=== PATIENT | male | born 1940 | race Caucasian/White ===

== ENCOUNTER → 2017-11-05 09:48 | Outpatient (CLI) | payer MEDICARE, BC, SELFPAY ==
--- NOTE | 2017-11-05 10:54 | NURSING ---
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 Was asked by Dr Titus to see patient since patient has no really seen a stoma nurse since surgery. Pt presents with son who assists patient at home with appliance changes. Pt is currently using a [place] 1 piece convex appliance with an oval convex barrier ring. Pt states that he has gained approximately 20 lbs since surgery and now has a little fold in the abdomen when he sits up. the oval convex ring really seems to have helped with the leaks according to the son. Removed the ostomy appliance. Pt states that for the most part, the output is the consistency of applesauce but of course changes with what he eats. Pt has been quite independent with the emptying of the appliance, but the son has been doing most of the appliance changes since it is difficult for the patient to see the stoma. Discussed trying to place the appliance while standing in front of a mirror, but the the fold in the abdomen is worse when the patient is standing. there is also a peristomal hernia noted. when the patient lifts his head up in the bed, the hernia is about the size of a softball. stoma is beefy red, moist, and measures approx 1 3/8. stoma is oval in size. peristomal skin is intact. there is a very small area of maceration just inferior to the stoma. cleansed skin with warm water and patted dry. applied a small amount of stoma powder followed by skin prep to the macerated skin. applied a small bead of stoma paste at 3 and 9 o'clock. placed the oval convex ring around the stoma and then placed the appliance. Discussed possibly needing to switch to a flat appliance with the convex ring in the future if there is breakdown in the peristomal skin. since the stoma sits slightly above the skin level, do not feel that the patient necessarily needs double convexity. patient also uses an ostomy belt as well. if the hernia continues to get worse, may need to fit patient for a hernia belt in the future. For now, would recommend continuing with the current appliance. patient and son feel comfortable with it and the peristomal skin is intact. pt is needing to change the appliance approx every 4 days. Pt aware to call for further needs or questions.
== END ==
PROVIDERS: Family Provider Family Medicine; PCP Family Medicine; Visit Provider Internal Medicine Hematology & Oncology
DX: Z43.3 Encounter for attention to colostomy (principal)
CPT/HCPCS: 99211; G0463

== ENCOUNTER → 2018-07-21 11:25 | Outpatient (CLI) | payer MEDICARE, BC, SELFPAY ==
--- NOTE | 2018-07-21 11:30 | RAD_ITS ---
STUDY: X-RAY - LUMBAR SPINE REASON FOR EXAM: Male, 78 years old. Back and leg pain TECHNIQUE: 2 view(s) of the lumbar spine were obtained. COMPARISON: 12/07/2013 FINDINGS: Stable grade 1 L3-4 anterolisthesis. Diffuse facet disease. L5-S1 degenerative disc disease. No compression deformities are seen. Hernia mesh on the right. Arterial calcifications. RAD/Lumbar Spine 2 or 3 Views IMPRESSION: Stable grade 1 L3-4 anterolisthesis. Diffuse facet disease. L5-S1 degenerative disc disease. No compression deformities are seen. Electronically Signed: Mikhail Jerez MD at 11:23 EST Tel , Service support ,
== END ==
PROVIDERS: Family Provider Family Medicine; PCP Family Medicine; Referring Provider Anesthesiology Pain Medicine; Visit Provider Anesthesiology Pain Medicine
DX: M43.16 Spondylolisthesis, lumbar region (principal); M51.37 Other intervertebral disc degeneration, lumbosacral region; M46.86 Other specified inflammatory spondylopathies, lumbar region
CPT/HCPCS: 72100

== ENCOUNTER → 2018-08-13 12:21 | Outpatient (CLI) | payer MEDICARE, BC, SELFPAY ==
[2018-07-30 10:25] VITALS: BMI 27.6
[2018-08-13 13:54] LABS: Amphetamine Urine VISTA NEGATIVE (<1000 ng/mL); Barbiturate Urine VISTA NEGATIVE (< 200 ng/mL); Benzodiazepine Urine VISTA NEGATIVE (< 200 ng/mL); Cocaine Urine VISTA NEGATIVE (< 300 ng/mL); Ecstacy Urine VISTA NEGATIVE (< 500 ng/mL); Methadone Urine VISTA NEGATIVE (< 300 ng/mL); PCP Urine VISTA NEGATIVE (< 25 ng/mL); THC Urine VISTA NEGATIVE (< 50 ng/mL); Vista UDS pH Range 5
--- OUTSIDE RECORDS SUMMARY | 2018-10-08 15:43 | XMS RPT_ITS ---
:1940 Author Organization OHIP Care Team Providers Name Role Phone Sam Bagley Attending Unavailable Floyd Cruz Primary Care Unavailable Sam Greenberg Attending Unavailable Sam Greenberg Referring Unavailable Robert, Vishal Primary Care Unavailable Bradly Condon Attending Unavailable Earl Huntley Attending Unavailable Anthony Floyd Referring Unavailable Robert, Vishal Primary Care Unavailable BasalChavo douglass Attending Unavailable Basali, Ayman Referring Unavailable Robert, Vishal Primary Care Unavailable Tito Crane Attending Unavailable Vishal Jones Referring Unavailable Chavo Hussein Attending Unavailable Basali, Ayman Referring Unavailable Robert, Vishal Primary Care Unavailable VISHAL JONES A Referring Unavailable TAMEKA MARSHALL ([facility]) Referring Unavailable TAMEKA MARSHALL ([facility]) Referring Unavailable SAM GREENBERG Referring Unavailable CLEMENT WERNER Attending Unavailable TAMEKA MARSHALL ([facility]) Referring Unavailable JANEE STOKES (TOUCH UP WORKER) Attending Unavailable ROBERT, VISHAL A Referring Unavailable RUTTI, JANEE (TOUCH UP WORKER) Referring Unavailable ROBERT, VISHAL A Attending Unavailable MARSHALL, TAMEKA (TOUCH UP WORKER) Attending Unavailable MASCI, SAM A Referring Unavailable MASCI, SAM A Referring Unavailable MARSHALL, TAMEKA (TOUCH UP WORKER) Referring Unavailable ROBERT, VISHAL A Referring Unavailable MASCI, SAM A Referring Unavailable MASCI, SAM A Referring Unavailable ROBERT, VISHAL A Attending Unavailable ROBERT, VISHAL A Referring Unavailable ROBERT, VISHAL A Referring Unavailable MARSHALL, TAMEKA (TOUCH UP WORKER) Referring Unavailable MARSHALL, TAMEKA (TOUCH UP WORKER) Referring Unavailable MARSHALL, TAMEKA (TOUCH UP WORKER) Referring Unavailable MARSHALL, TAMEKA (TOUCH UP WORKER) Attending Unavailable MARSHALL, TAMEKA (TOUCH UP WORKER) Referring Unavailable MARSHALL, TAMEKA (TOUCH UP WORKER) Referring Unavailable MARSHALL, TAMEKA (TOUCH UP WORKER) Referring Unavailable MARSHALL, TAMEKA (TOUCH UP WORKER) Referring Unavailable FOY, EDILMA (PA) Attending Unavailable MALLAT, ALI Referring Unavailable MASCI, SAM A Referring Unavailable MASCI, SAM A Attending Unavailable MASCI, SAM A Referring Unavailable MASCI, SAM A Referring Unavailable MASCI, SAM A Referring Unavailable MASCI, SAM A Referring Unavailable MASCI, SAM A Referring Unavailable MASCI, SAM A Referring Unavailable MASCI, SAM A Referring Unavailable MASCI, SAM A Referring Unavailable MASCI, SAM A Referring Unavailable ROBERT, VISHAL A Attending Unavailable MASCI, SAM A Referring Unavailable MASCI, SAM A Referring Unavailable MARSHALL, TAMEKA (TOUCH UP WORKER) Attending Unavailable MASCI, SAM A Referring Unavailable MASCI, SAM A Referring Unavailable MASCI, SAM A Referring Unavailable MASCI, SAM A Referring Unavailable MASCI, SAM A Attending Unavailable MASCI, SAM A Referring Unavailable MASCI, SAM A Referring Unavailable MASCI, SAM A Referring Unavailable MASCI, SAM A Referring Unavailable MOLLY, TASHA T Attending Unavailable MASCI, SAM A Referring Unavailable MASCI, SAM A Referring Unavailable MASCI, SAM A Referring Unavailable MASCI, SAM A Referring Unavailable MARSHALL, TAMEKA (TOUCH UP WORKER) Attending Unavailable MASCI, SAM A Referring Unavailable MASCI, SAM A Referring Unavailable MARSHALL, TAMEKA (TOUCH UP WORKER) Referring Unavailable MASCI, SAM A Referring Unavailable MASCI, SAM A Referring Unavailable MASCI, SAM A Referring Unavailable MASCI, SAM A Referring Unavailable MASCI, SAM A Referring Unavailable MASCI, SAM A Referring Unavailable MASCI, SAM A Attending Unavailable MASCI, SAM A Referring Unavailable MASCI, SAM A Referring Unavailable MASCI, SAM A Referring Unavailable MASCI, SAM A Referring Unavailable MASCI, SAM A Referring Unavailable MASCI, SAM A Referring Unavailable MASCI, SAM A Referring Unavailable MICHAELCHELLEELIU Attending Unavailable MASCI, SAM Noble Referring Unavailable MICHAELTREVOR Referring Unavailable MASCI, SAM A Referring Unavailable MASCI, SAM A Referring Unavailable MASCI, SAM A Referring Unavailable MASCI, SAM A Referring Unavailable MASCI, SAM A Referring Unavailable MASCI, SAM Aide Referring Unavailable VISHAL JONES Attending Unavailable VISHAL JONES Referring Unavailable MASCI, SAM Aide Referring Unavailable TAMEKA MARSHALL (TOUCH UP WORKER) Attending Unavailable MASCI, SAM Noble Referring Unavailable ROBERTVISHAL Referring Unavailable PROBLEMS PROBLEMS DATE TYPE CONDITION / CODE ATTENDING STATUS SOURCE 08/13/2018 Unknown F11.20 - Opioid Basali, Ayman Active [place] dependence, Community uncomplicated / Hospital F11.20(ICD-10) Repository 08/12/2018 Active 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, Clinic Main unspecified / [place] N28.9(ICD-10) Repository 09/25/2017 Active Malignant neoplasm of NA Active [place] sigmoid colon / Clinic Main C18.7(ICD-10) [place] Repository 07/30/2018 Active Other abnormal NA Active [place] glucose / Clinic Main R73.09(ICD-10) [place] Repository 07/30/2018 Active Atherosclerotic heart NA Active [place] disease of [place] [facility] coronary artery [place] without angina Repository pectoris / I25.10(ICD-10) 04/02/2018 Active Urinary tract NA Active [place] infection, site not Clinic Main specified / [place] N39.0(ICD-10) Repository 04/02/2018 Active Hematuria, NA Active [place] unspecified / Clinic Main R31.9(ICD-10) [place] Repository 09/25/2017 Active Malignant neoplasm of NA Active [place] ascending colon / Clinic Main C18.2(ICD-10) [place] Repository 02/17/2018 Active Unknown / NA Active [place] UNK(Unknown) Clinic Main [place] Repository 09/25/2017 Active Mixed hyperlipidemia NA Active [place] / E78.2(ICD-10) Clinic Main [place] Repository 01/28/2018 Active 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 Clinic Main therapy / [place] Z79.899(ICD-10) Repository 01/28/2018 Active Hyperglycemia, NA Active [place] unspecified / Clinic Main R73.9(ICD-10) [place] Repository 01/27/2018 Unknown I25.10 - [place], Earl Active [place] Atherosclerotic heart Community disease of [facility] coronary artery Repository without angina pectoris / I25.10(ICD-10) 01/27/2018 Unknown I10 - Essential Yuko, Earl Active [place] (primary) Community hypertension / Hospital I10(ICD-10) Repository 01/27/2018 Unknown E78.5 - Yuko, [place]wood Active [place] Hyperlipidemia, Community unspecified / Hospital E78.5(ICD-10) Repository 12/02/2017 Active Malignant neoplasm of Active [place] colon, unspecified / Clinic Main C18.9(ICD-10) [place] Repository 09/11/2017 Active Other specified soft Active [place] tissue disorders / Clinic Main M79.89(ICD-10) [place] Repository PROCEDURES PROCEDURES No Procedure Records FoundRESULTS RESULTS URINE DRUG SCREEN Collected: 08/13/2018 Status: F Source: [place]) 12:27 PM [facility] [place] [facility] Order Comment: List of Drugs Taken or Suspected? UNK TYPE CODE TESTS RESULT OUT OF RANGE REFERENCE UNITS LAB L505.0075 TO BE Normal CONFIRMED Result Comment: CONFIRMATORY TESTING FOR ALL POSITIVE URINE DRUG SCREEN RESULTS WILL ONLY BE SENT OUT UPON PHYSICIAN ORDER. VISTA Urine Drug Screen methods provide only preliminary analytical test results. A more specific alternate chemical method must be used in order to obtain a confirmed analytical result. Gas chromatography/mass spectrometery (GC/MS) is the preferred confirmatory method. Clinical consideration and professional judgement should be applied to any drug of abuse test result, particularly when preliminary positive results are used. URINE TCA TESTING MUST BE ORDERED SEPARATELY. USE TEST MNEMONIC: [facility] LAB L505.5005 VIST[facility] UDS PH 5 Normal LAB L505.5015 <1000 ng/mL AMPHETAMINES Normal NEGATIVE LAB L505.5025 < 200 ng/mL BARBITIURATES Normal NEGATIVE LAB L505.5035 < 200 ng/mL BENZODIAZIPINE Normal NEGATIVE LAB L505.5045 < 300 ng/mL COCAINE Normal NEGATIVE LAB L505.5055 < 500 ng/mL ECSTACY Normal NEGATIVE LAB L505.5065 < 300 ng/mL METHADONE Normal NEGATIVE LAB L505.5075 < 300 High ng/mL OPIATES POSITIVE LAB L505.5085 < 25 ng/mL PCP Normal NEGATIVE LAB L505.5095 < 50 ng/mL THC Normal NEGATIVE Performed By: #### L505.5000 #### [facility] [address] [place], [address] MISCELLANEOUS LAB Collected: 08/13/2018 Status: F Source: [place] PROCEDURE 12:27 PM [facility] [place] [facility] Order Comment: Test(s) Ordered: URINE TOXICOLOGY [id number] RUN LOWEST TEST TYPE CODE TESTS RESULT OUT OF RANGE REFERENCE UNITS LAB L801.1541 Normal [place] [facility] TEST Result Comment: [id number] 6+OXYCODONE-BUND (ng/mL) DRUG RESULT SCREEN CUTOFF ____ Amphetamines Negative ng/mL 1000 Barbiturates Negative ng/mL 200 Benzodiazepines Negative ng/mL 200 Cannabinoid Negative ng/mL 20 Cocaine (Metab) Negative ng/mL 300 Opiates Positive ng/mL 300 Opiates test includes Codeine, Morphine, Hydromorphone, Hydrocodone. Please Note: Confirmation performed by Mass Spectrometry Codeine Negative 300 Morphine Negative 300 Hydromorphone Positive Hydromorphone Confirm 1264 ng/mL 300 Hydrocodone Positive Hydrocodone Confirm >3000 ng/mL 300 Oxycodone/Oxymorphone,Urine Negative ng/mL 300 Test includes Oxydodone and Oxymorphone. TESTING PERFORMED AT [facility]. ORIGINAL REPORT ON FILE IN LAB CONTAINS ADDITIONAL TEST SITE INFORMATION. Performed By: #### L801.1541 #### [facility] [address] [place], [address] PROGRESS Observed: 08/12/2018 Status: COMPLETED Source: [place] 11:12 AM [facility] REPOSITORY HNO ID: [id number] Author: Olamide Tobin Service: (none) Author Type: Health Concierge Type: Progress Notes Filed: 08/12/2018 11:12 AM Note Text: Radiology Service Progress Note PATIENT NAME: Sam Hagen DATE OF SERVICE: August 12, 2018 TIME: 11:12 AM PATIENT IDENTITY VERIFICATION COMPLETED USING TWO (2) METHODS: Patient confirmed name verbally and Date of . PATIENT GENDER DATA: Male PATIENT RELEVANT IMPLANT DATA REVIEWED: Not Applicable RADIOLOGY DEPARTMENT: Ultrasound PERIPHERAL IV DATA: Not applicable SIGNED BY: OLAMIDE TOBIN RDMS RVT August 12, 2018 11:12 AM US KIDNEY/BLADDER Observed: 08/12/2018 Status: F Source: [place] 11:11 AM [facility] REPOSITORY * * *Final Report* * * DATE OF EXAM: Aug 12 2018 11:11AM [facility] 1055 - US KIDNEY/BLADDER / PROCEDURE REASON: multiple diagnoses * * * * Physician Interpretation * * * * EXAMINATION: RENAL ULTRASOUND CLINICAL HISTORY: Malignant neoplasm of colon; renal lesion TECHNIQUE: Sonography of the kidneys and urinary bladder was performed. Images were obtained and stored in a permanent archive. MQ: UR_1 COMPARISON: 02/17/[address], 08/03/[address] RESULT: Right Kidney: -Renal length: 10.1 cm -Parenchyma: Normal parenchymal echogenicity. Normal parenchymal thickness. -Collecting system: No hydronephrosis. -Calculus: No echogenic, shadowing calculus. -Lesion: Avascular, partially exophytic 1.7 x 1.4 x 1.6 cm mid/lower pole renal lesion with distal acoustic enhancement corresponds to abnormality on recent abdominopelvic CT. Lesion demonstrates low level internal echoes and/or thin septations. 1 cm hypoechoic avascular upper pole lesion. Left Kidney: -Renal length: 11 cm -Parenchyma: Normal parenchymal echogenicity. Normal parenchymal thickness. -Collecting system: No hydronephrosis. -Calculus: No echogenic, shadowing calculus. -Lesion: 1.5 cm and 1.3 cm anechoic avascular renal cortical lesions with distal acoustic enhancement. Bladder: Minimally distended on the prevoid images; completely empty after voiding. IMPRESSION: Right kidney: Mid/lower pole lesion of concern on recent abdominopelvic CT corresponds to a complex cyst. Additional upper pole complex cyst. Left kidney: Simple renal cortical cysts. Call Center Team Leader: JAYME Transcribe Date/Time: Aug 13 2018 1:23P Dictated by : EFRAÍN GUIDRY MD This examination was interpreted and the report reviewed and electronically signed by: EFRAÍN GUIDRY MD on Aug 13 2018 1:28PM EST [id number] CEA Collected: 08/10/2018 Status: F Source: [place] 9:15 AM [facility] REPOSITORY TYPE CODE TESTS RESULT OUT OF RANGE REFERENCE UNITS LAB CEA 0.0-2.9 ng/mL CEA 1.1 Result Comment: Test analyzed by the [employer] DxI method. Performed By: #### CEA #### [facility] [employer] [address] [place], [place] [address] PROGRESS Observed: 08/10/2018 Status: COMPLETED Source: [place] 9:00 AM [facility] REPOSITORY HNO ID: [id number] Author: Tameka Marshall Service: (none) Author Type: Nurse Practitioner Type: Progress Notes Filed: 08/11/2018 12:50 PM Note Text: Chief Complaint Patient presents with: Established Patient HPI: Sam Hagen is a 78 year old male who presents here today for follow up colon cancer. Per Dr. Greenberg's previous note: H/[place] CAD?([place]; treated with PCI balloon angioplasty; no stent) and prostate cancer?(tx with radiation x44 fx ~6-8 years ago). ? He presented to [facility] with symptoms of bowel obstruction. He underwent attempted colonoscopy but the procedure was aborted when the scope was not able to be passed through the rectum/sigmoid area. He was transferred to [facility]. He ultimately underwent a total colectomy along with end ileostomy and partial bladder resection on 07/03/2017. He was noted to have 2 foci of tumor one in the cecum and one in the sigmoid colon. The latter tumor was adherent to the bladder invasive to the bladder wall. ? 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 ?TUMOR PENETRATES TO THE SURFACE OF THE VISCERAL PERITONEUM. SURGICAL MARGINS NEGATIVE. 1 OF 13 LYMPH NODES POSITIVE FOR METASTATIC ADENOCARCINOMA AND 1 TUMOR DEPOSIT PRESENT. PERINEURAL AND LYMPHOVASCULAR INVASION PRESENT. B) SMALL INTESTINE, TERMINAL ILEUM, ILEOSTOMY - BENIGN SMALL INTESTINAL TISSUE. C) BLADDER, PARTIAL CYSTECTOMY - FOCAL INVOLVEMENT OF THICK SMOOTH MUSCLE BUNDLES BY ADENOCARCINOMA. ?NO UROTHELIUM PRESENT. D) COLON, SIGMOID, SEGMENTAL RESECTION - INVASIVE LOW GRADE (MODERATELY DIFFERENTIATED) ADENOCARCINOMA (3 CM IN GREATEST DIMENSION). ?SURGICAL MARGINS APPEAR NEGATIVE. BENIGN TRANSECTED BENIGN VAS DEFERENS (2) AND THICK SMOOTH MUSCLE SUGGESTIVE OF BLADDER. 1 OF 9 LYMPH NODES POSITIVE FOR METASTATIC ADENOCARCINOMA ? ? Previous therapy: 1) Infusional 5FU. ? Radiation not recommended.? No complaints. ? Appetite:fine Energy level:fair and then times I can't sit still Denies fevers or recent illness. Resp:denies cough or sob Cardiac:denies chest pain/palpitations-Followed by cards/Dr. 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 Skin:denies rashes/lesions Heme:denies bleeding The ROS is otherwise negative. Past medical history, appointments, medications, allergies reviewed. No changes. EXAM: BP 124/67 Pulse 67 Temp 36.6 ?C (97.8 ?F) Wt 80.5 kg (177 lb 8 oz) BMI 28.22 kg/m? APPEARANCE Well appearing, alert, in no acute distress, well-hydrated, well nourished. HEART RRR with normal S1 and S2, no murmurs LUNG clear to auscultation LYMPH NODES No cervical lymphadenopathy, No supraclavicular lymphadenopathy and No axillary lymphadenopathy. ABDOMEN ostomy pink, bowel sounds normoactive, soft, non-tender, non-distended, without organomegaly or palpable masses EXTREMITIES No edema NEURO Awake, alert and oriented x 3, Normal gait and No involuntary motions. SKIN Skin color, texture, turgor normal, no suspicious rashes or lesions LABS: Component Latest Ref Rng AND Units 01/28/2018 05/04/2018 CEA 0.0 - 2.9 ng/mL 1.2 1.1 Today's CEA pending. RADIOLOGY: CT abd/pelvis 08/03/18: IMPRESSION: Left lower quadrant ileostomy containing nondistended nonobstructed loops of small bowel which are increased in number but otherwise unchanged. Incomplete evaluation of an indeterminate right renal lesion which could be questionably increased in size when compared to the February 2018 study. Renal ultrasound may be helpful. ASSESSMENT/PLAN: 1. Malignant neoplasm of ascending colon (HCC) - ICD9: 153.6, ICD10: C18.2 (primary diagnosis) 2. Malignant neoplasm of sigmoid colon (HCC) - ICD9: 153.3, ICD10: C18.7 mpT4a pN1 M0 adenocarcinoma with mucinous features of the ascending colon. There was lymphovascular as well as perineural invasion observed. One tumor deposit. One of 13 nodes. mpT4b pN1 M0 adenocarcinoma of the sigmoid colon. Focal involvement of bladder. Lymphovascular invasion was observed. No tumor deposits. One of 9 nodes involved. 3. Renal lesion - ICD9: 593.9, ICD10: N28.9 - No concerning findings on exam. - CEA today. - Needs port flushes. - Reviewed CT with pt. and Dr. Greenberg. - US R kidney this week-pt. will be vacation for the next month. - ?Follow up in 3 months with CEA pending today's CEA/US. - ?Pt. aware to call office with any questions/concerns. The patient indicates understanding of these issues and agrees with the plan. Discussed case with Dr. Greenberg who agrees with treatment plan. Tameka Marshall APRN.TOUCH UP WORKER CNOVSP Observed: 08/10/2018 Status: COMPLETED Source: [place] 9:00 AM [facility] REPOSITORY Visit (SP) Office ([place]) SAM HAGEN ([id number]) 1940 M Date Time Provider Department 08/10/18 9:00 AM TAMEKA MARSHALL During your visit today, we recorded the following information about you: Temperature Pulse Blood pressure Weight 97.8 degrees 67/minute 124/67 80.5 kg Shreya Villalta LPN, [place] 08/10/2018 9:06 AM Signed Est . Pt. Discuss recent lab and ct results . [place] Trevino, SUPERVISOR LOCOMOTIVE.TOUCH UP WORKER 08/11/2018 12:50 PM Signed Chief Complaint Patient presents with: Established Patient HPI: Sam Hagen is a 78 year old male who presents here today for follow up colon cancer. Per Dr. Greenberg's previous note: H/o CAD?([place] 1993; treated with PCI balloon angioplasty; no stent) and prostate cancer?(tx with radiation x44 fx ~6-8 years ago). ? He presented to [facility] with symptoms of bowel obstruction. He underwent attempted colonoscopy but the procedure was aborted when the scope was not able to be passed through the rectum/sigmoid area. He was transferred to [facility]. He ultimately underwent a total colectomy along with end ileostomy and partial bladder resection on 07/03/2017. He was noted to have 2 foci of tumor one in the cecum and one in the sigmoid colon. The latter tumor was adherent to the bladder invasive to the bladder wall. ? 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 ?TUMOR PENETRATES TO THE SURFACE OF THE VISCERAL PERITONEUM. SURGICAL MARGINS NEGATIVE. 1 OF 13 LYMPH NODES POSITIVE FOR METASTATIC ADENOCARCINOMA AND 1 TUMOR DEPOSIT PRESENT. PERINEURAL AND LYMPHOVASCULAR INVASION PRESENT. B) SMALL INTESTINE, TERMINAL ILEUM, ILEOSTOMY - BENIGN SMALL INTESTINAL TISSUE. C) BLADDER, PARTIAL CYSTECTOMY - FOCAL INVOLVEMENT OF THICK SMOOTH MUSCLE BUNDLES BY ADENOCARCINOMA. ?NO UROTHELIUM PRESENT. D) COLON, SIGMOID, SEGMENTAL RESECTION - INVASIVE LOW GRADE (MODERATELY DIFFERENTIATED) ADENOCARCINOMA (3 CM IN GREATEST DIMENSION). ?SURGICAL MARGINS APPEAR NEGATIVE. BENIGN TRANSECTED BENIGN VAS DEFERENS (2) AND THICK SMOOTH MUSCLE SUGGESTIVE OF BLADDER. 1 OF 9 LYMPH NODES POSITIVE FOR METASTATIC ADENOCARCINOMA ? ? Previous therapy: 1) Infusional 5FU. ? Radiation not recommended.? No complaints. ? Appetite:fine Energy level:fair and then times I can't sit still Denies fevers or recent illness. Resp:denies cough or sob Cardiac:denies chest pain/palpitations-Followed by cards/Dr. 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 Skin:denies rashes/lesions Heme:denies bleeding The ROS is otherwise negative. Past medical history, appointments, medications, allergies reviewed. No changes. EXAM: BP 124/67 Pulse 67 Temp 36.6 ?C (97.8 ?F) Wt 80.5 kg (177 lb 8 oz) BMI 28.22 kg/m? APPEARANCE Well appearing, alert, in no acute distress, well- hydrated, well nourished. HEART RRR with normal S1 and S2, no murmurs LUNG clear to auscultation LYMPH NODES No cervical lymphadenopathy, No supraclavicular lymphadenopathy and No axillary lymphadenopathy. ABDOMEN ostomy pink, bowel sounds normoactive, soft, non-tender, non-distended, without organomegaly or palpable masses EXTREMITIES No edema NEURO Awake, alert and oriented x 3, Normal gait and No involuntary motions. SKIN Skin color, texture, turgor normal, no suspicious rashes or lesions LABS: Component Latest Ref Rng AND Units 01/28/2018 05/04/2018 CEA 0.0 - 2.9 ng/mL 1.2 1.1 Today's CEA pending. RADIOLOGY: CT abd/pelvis 08/03/18: IMPRESSION: Left lower quadrant ileostomy containing nondistended nonobstructed loops of small bowel which are increased in number but otherwise unchanged. Incomplete evaluation of an indeterminate right renal lesion which could be questionably increased in size when compared to the February 2018 study. Renal ultrasound may be helpful. ASSESSMENT/PLAN: 1. Malignant neoplasm of ascending colon (HCC) - ICD9: 153.6, ICD10: C18.2 (primary diagnosis) 2. Malignant neoplasm of sigmoid colon (HCC) - ICD9: 153.3, ICD10: C18.7 mpT4a pN1 M0 adenocarcinoma with mucinous features of the ascending colon. There was lymphovascular as well as perineural invasion observed. One tumor deposit. One of 13 nodes. mpT4b pN1 M0 adenocarcinoma of the sigmoid colon. Focal involvement of bladder. Lymphovascular invasion was observed. No tumor deposits. One of 9 nodes involved. 3. Renal lesion - ICD9: 593.9, ICD10: N28.9 - No concerning findings on exam. - CEA today. - Needs port flushes. - Reviewed CT with pt. and Dr. Greenberg. - US R kidney this week-pt. will be vacation for the next month. - ?Follow up in 3 months with CEA pending today's CEA/US. - ?Pt. aware to call office with any questions/concerns. The patient indicates understanding of these issues and agrees with the plan. Discussed case with Dr. Greenberg who agrees with treatment plan. Tameka Marshall APRN.TOUCH UP WORKER Referring Provider: TAMEKA MARSHALL [[id number]] Allergies As of Date: 08/10/2018 (No Known Allergies) Date Reviewed: 08/10/2018 Reviewed by: Tameka Marshall - Fully Assessed Reason for Visit: Established Patient [175] Primary Visit Diagnosis:Malignant neoplasm of ascending colon (HCC) [C18.2] Other Visit Diagnoses:Malignant neoplasm of sigmoid colon (HCC) [C18.7] Renal lesion [N28.9] Order(s):CEA BLD [SQCEA] Order #: [id number] FUTURE US KIDNEY/BLADDER [[id number]] Order #: [id number] FUTURE Follow-up and Disposition History Recorded Prescriptions as of 08/10/2018 Sig: OMEPRAZOLE 40 MG CAPSULE,ROHIT* Take 40 mg by mouth once renu* ONDANSETRON 8 MG DISINTEGRATI* Take 1 tablet by mouth every * ATENOLOL 25 MG TABLET Take 0.5 tablets by mouth onc* HYDROCODONE 10 MG-ACETAMINOPH* Take 1 tablet by mouth every * ASPIRIN 81 MG TABLET,DELAYED * Take 81 mg by mouth once renu* MELATONIN 3 MG TABLET Take 3 mg by mouth daily at b* OMEGA 3 FISH OIL ORAL Take by mouth once daily. SIMVASTATIN 40 MG TABLET Take 1 tablet by mouth daily * FINASTERIDE 5 MG TABLET Take 5 mg by mouth once daily. COMPOUNDED PRESCRIPTION Colostomy Care Supplies; 1 m* COMPOUNDED PRESCRIPTION Colostomy Care Supplies; 1 m* LOPERAMIDE 2 MG TABLET Take 2 mg by mouth as needed. Medication notes this encounter OMEGA 3 FISH OIL ORAL >> Shreya Villalta LPN, LPN 08/10/2018 8:52 AM >> SHREYA VILLALTA FriAug 10, 2018 8:52 AM Takes Hit and miss basis Problem List As Of Date 08/10/2018 Noted Resolved Bowel obstruction (HCC) [K56.609] INVALID FOR*07/10/2017 More... Colon cancer (HCC) [C18.9] INVALID FOR* Priority: B More... 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 Arthritis of right hip [M16.11] INVALID FOR* Priority: M Colostomy care ([facility]) [Z43.3] INVALID FOR* Priority: C Colostomy in place ([facility]) [Z93.3] INVALID FOR* Priority: C History of DVT (deep vein thrombosis) [Z86.718] INVALID FOR* Priority: A More... Bladder stone [N21.0] INVALID FOR* Priority: C More... Coronary artery disease involving [place] river[place]*INVALID FOR* Priority: A More... H/O heart artery stent [Z95.5] INVALID FOR* Priority: B More... Nerve pain [M79.2] INVALID FOR* Priority: M More... Hyperlipidemia, mixed [E78.2] INVALID FOR* Priority: A Chronic midline back pain [M54.9, G89.29] INVALID FOR* Priority: M Elevated hemoglobin A1c [R73.09] INVALID FOR* Priority: A Medicare annual wellness visit, subsequent [Z00*INVALID FOR* Priority: E More... Well adult exam [Z00.00] INVALID FOR* Priority: E More... Visit Notes: >> Shreya Villalta LPN FriAug 10, 2018 8:57 AM Status: Signed Est . Pt. Discuss recent lab and ct results . Shreya Villalta LPN Encounter Status:Closed by TAMEKA MARSHALL CNP on 08/11/18 PROGRESS Observed: 08/03/2018 Status: COMPLETED Source: [place] 9:25 AM [facility] REPOSITORY HNO ID: [id number] Author: Violeta Edwards Rt Service: (none) Author Type: (none) Type: Progress Notes Filed: 08/03/2018 9:25 AM Note Text: Radiology Service Progress Note PATIENT NAME: Sam Hagen DATE OF SERVICE: August 03, 2018 TIME: 9:25 AM PATIENT IDENTITY VERIFICATION COMPLETED USING TWO (2) METHODS: Patient confirmed name verbally and Date of . PATIENT GENDER DATA: Male PATIENT RELEVANT IMPLANT DATA REVIEWED: Yes RADIOLOGY DEPARTMENT: CT; Exam(s) Completed: Abdomen/Pelvis PERIPHERAL IV DATA: Not applicable SIGNED BY: Violeta Edwards Rt August 03, 2018 9:[address] ABD/PEL WO IVCON Observed: 08/03/2018 Status: F Source: [place] 9:24 AM [facility] REPOSITORY * * *Final Report* * * DATE OF EXAM: Aug 03 2018 9:24AM [facility] 0531 - CT ABD/PEL WO IVCON / PROCEDURE REASON: multiple diagnoses * * * * Physician Interpretation * * * * EXAMINATION: CT ABDOMEN AND PELVIS WITHOUT IV CONTRAST CLINICAL HISTORY: Malignant neoplasm sigmoid and a descending colon. Evaluate stoma TECHNIQUE: Non-IV contrast imaging of the abdomen and pelvis was performed using standard technique, scanning from just above the dome of the diaphragm to the symphysis pubis. Unenhanced imaging is limited for the evaluation of some intra-abdominal and pelvic pathology. MQ: [id number]_[id number] Contrast: IV: None Oral: 900 ml of 50ML Omnipaque [address] Radiation dose: Integrated Dose-length product (DLP) for this visit = 433 mGy*cm. CT Dose Reduction Employed: Automated exposure control (AEC) COMPARISON: Comparison is made to prior CT dated 17 February 2018 RESULT: Abdomen / Pelvis: GI tract: Colectomy changes are again identified with rectal stump. Left lower quadrant ileostomy is again identified with a small parastomal hernia. The number of small bowel loops are slightly increased but there is no secondary sign of obstruction. No inflammatory change or abnormal fluid. Mild midline ventral hernia containing some nonobstructive small bowel again identified. There is no rene obstruction. There is no free air, free fluid or abscess. Liver: Calcified residuals prior granulomatous infection. No hepatomegaly or focal mass within the limits of no IV contrast material Biliary: The gallbladder is undistended. No evidence of cholelithiasis or inflammatory change. Negative biliary dilatation Spleen: No splenomegaly. Pancreas: Unremarkable. Adrenals: No mass. Kidneys: Punctate nonobstructing stone left mid pole centrally. Low-density lesion within the mid pole anteriorly left kidney is grossly stable consistent with cyst. Projecting from the posterior margin of the right mid to lower pole is an isodense lesion which on previous CT measured above water density. It is difficult to fully characterize and measure but appears slightly increased in size. Renal ultrasound may be helpful. Lymph Nodes: No pathologic lymphadenopathy by size criteria. Mesentery/peritoneum: No ascites. Retroperitoneum: No mass. Vasculature: Aorta demonstrates atherosclerotic calcification and mild infrarenal ectasia without rene aneurysmal dilatation. Pelvis: No mass or ascites. Bones/Soft Tissues: No acute abnormality. Sclerotic lesion left iliac bone is stable Lower thorax: Lung bases are clear IMPRESSION: Left lower quadrant ileostomy containing nondistended nonobstructed loops of small bowel which are increased in number but otherwise unchanged. Incomplete evaluation of an indeterminate right renal lesion which could be questionably increased in size when compared to the February 2018 study. Renal ultrasound may be helpful. Call Center Team Leader: JAYME Transcribe Date/Time: Aug 04 2018 1:44P Dictated by : ENEDINA COELLO MD This examination was interpreted and the report reviewed and electronically signed by: ENEDINA COELLO MD on Aug 04 2018 1:55PM EST [id number] LIPID PANEL, NONFAST Collected: 07/30/2018 Status: F Source: [place] 3:43 PM [facility] REPOSITORY TYPE CODE TESTS RESULT OUT OF REFERENCE UNITS RANGE LAB CHOLNF <200 mg/dL Total Cholesterol NF 140 Result Comment: <200 mg/dL, Desirable 200-239 mg/dL, Borderline high >239 mg/dL, High LAB TRIGNF <150 mg/dL Triglycerides, NF High 174 Result Comment: <150 mg/dL, Normal 150-199 mg/dL, Borderline high 200-499 mg/dL, High >499 mg/dL, Very high LAB HDLNF >39 mg/dL HDL Cholesterol, NF 45 Result Comment: 40-59 mg/dL, Acceptable >59 mg/dL, High: Negative risk factor for coronary heart disease <40 mg/dL, Low: Positive risk factor for coronary heart disease LAB LDLNF <100 mg/dL LDL Cholesterol, NF 60 Result Comment: <100 mg/dL, Optimal 100-129 mg/dL, Near optimal/above optimal 130-159 mg/dL, Borderline high 160-189 mg/dL, High >189 mg/dL, Very high Secondary prevention optimal LDL Cholesterol levels are recommended to be < 70 mg/dL LAB NOHDLN <130 mg/dL Non HDL Chol, 95 NF Result Comment: <130 mg/dL, Optimal 130-159 mg/dL, Near optimal/above optimal 160-189 mg/dL, Borderline high 190-219 mg/dL, High >219 mg/dL, Very high Secondary prevention optimal non HDL Cholesterol levels are recommended to be < 100 mg/dL LAB VLDLNF <30 mg/dL VLDL Cholesterol, High NF 35 LAB TCHDLN <5.10 mg/dL T Chol/HDL Ratio NF 3.11 LAB LDLHDN <2.54 mg/dL LDL/HDL Ratio, NF 1.33 Result Comment: Reference: 1. National Cholesterol Education Program ATP III Guideline At-A-Glance Quick Desk Reference: National Heart, Lung, and Blood [place]. National Institutes of Health. 2001: NIH Publication No. 01-3305. 2. An International Atherosclerosis Society position paper: global recommendations for the management of dyslipidemia: executive summary, Atherosclerosis. 2014: 232(2):410-413. Performed By: #### HBA1C, LIPNF #### [facility] [place] [facility] [address] [id number] HEMOGLOBIN A1C Collected: 07/30/2018 Status: F Source: [place] 3:43 PM [facility] REPOSITORY TYPE CODE TESTS RESULT OUT OF REFERENCE UNITS RANGE LAB HGBA1C 4.3-5.6 % High Hemoglobin A1c 6.0 Result Comment: [place] Diabetes Association guidelines indicate that patients with HgbA1c in the range 5.7-6.4% are at increased risk for development of diabetes, and intervention by lifestyle modification may be beneficial. HgbA1c greater or equal to 6.5% is considered diagnostic of diabetes. LAB HBA0 mg/dL Est. Average Glucose 126 Result Comment: eAG: (Estimated average glucose) is a calculated value from HgbA1c and is account development representative of the average blood glucose level in the last 2-3 month period. Performed By: #### HBA1C, LIPNF #### [facility] [place] [facility] [address] [place], [place] [address] PROGRESS Observed: 07/30/2018 Status: COMPLETED Source: [place] 3:05 PM [facility] REPOSITORY HNO ID: [id number] Author: Vishal Jones Service: (none) Author Type: Physician Type: Progress Notes Filed: 07/30/2018 9:41 PM Note Text: Medicare Yearly Visit Medical B eligibilty date 03/15/2017 Date of last exam NA PAST MEDICAL HISTORY Diagnosis Date - Arthritis of right hip 09/25/2017 - Arthritis, lumbar spine 09/25/2017 - Bladder stone 09/25/[address] Bagley - Colon cancer ([facility]) 06/30/[address] Greenberg, Had extension into the bladder wall and hd a partial cystectomy. - Colostomy care ([facility]) 09/25/2017 - Colostomy in place ([facility]) 09/25/2017 - Coronary artery disease involving [place]ash[place] coronary artery 09/25/[address] 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 - Unspecified essential hypertension - 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 Medications reviewed: Yes FAMILY HISTORY Problem Relation Age of Onset - Prostate Cancer Father - Cancer Father skin - Heart Mother - Stroke Mother - Diabetes Mother SOCIAL HISTORY: Social History Marital status: Spouse name: Years of education: Number of children: Social History Main Topics Smoking status: Never Smoker Smokeless tobacco: Current User Types: Chew Alcohol use: Yes Comment: rare Drug use: No Sam denies regular aerobic exercise. He watches his diet for sodium, low fat and low cholesterol generally not very much. List of current specialists seen: Dr. Huntley End of Live Planning discussed including patients advanced directive wishes: Yes I am willing to follow Sam's advanced directives. Depression screen He in the past two weeks denies having felt down, depressed, hopeless or with little interest or pleasure in doing things. Functional Ability/Safety Screen 1. Was the patient's timed Up and Go test unsteady or longer than 30 seconds? No 2. Does the patient need help with the phone, transportation, shopping,preparing meals, housework, laundry, medications or managing money? No 3. Does your home have rugs in the hallway(Y), lack of grab bars in the bathroom, lack of handrails on the stairs or have poor lighting? No Hearing Evaluation: normal PHYSICAL EXAM BP 118/56 Pulse 80 Resp 14 Ht 168.9 cm (5' 6.5) Wt 78.9 kg (174 lb) BMI 27.66 kg/m? Alert and oriented X 3: YES Body mass index is 27.66 kg/m?. Seeing optho See below ASSESSMENT/PLAN: 78 year old male The following prevention plan was discussed during the office visit and provided to the patient: See below Vishal Jones MD Chief Complaint Patient presents with: Physical HPI Sam Hagen is a 78 year old male who presents here today for extensive. Patient with Hx hyperlipidemia, elevated A1c, colon cancer S/P colectomy, CAD, arthritis, bladder stones as well as those reviewed and addressed below. Continues to see Dr. Greenberg for colon cancer screening and will be having a CT in the near future. Past medical history, appointments, medications, allergies reviewed. Previous Medical History PAST MEDICAL HISTORY Diagnosis Date - Arthritis of right hip 09/25/2017 - Arthritis, lumbar spine 09/25/2017 - Bladder stone 09/25/[address] Bagley - Colon cancer ([facility]) 06/30/[address] Greenberg, Had extension into the bladder wall and hd a partial cystectomy. - Colostomy care ([facility]) 09/25/2017 - Colostomy in place ([facility]) 09/25/2017 - Coronary artery disease involving [place] coronary artery 09/25/[address] 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 - Unspecified essential hypertension - 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 and other lower urinary tract symptoms (LUTS) Previous Surgical History PAST SURGICAL HISTORY Procedure Laterality Date - CARPAL TUNNEL Bilateral - CATARACT EXTRACTION HX Right - ECHOCARDIOGRAM 07/05/2017 - LAP REPAIR INTIAL INGUINAL HERNIA 01/11/09 - PAST SURGICAL HISTORY OF 07/03/2017 COLECTOMY ABDOMINAL W/O PROCTECTOMY W/ ILEOSTOMY/ILEOPROCTOSTOMY, TOTAL - REPAIR COMPL ROTATOR CUFF AVULSN,CHR left - REPAIR SLIDING INGUINAL HERNIA LIH - REPAIR UMBILICAL ANNA,5+Y/O,REDUC 01/11/09 - SIGMOIDOSCOPY 06/29/2017 Family History FAMILY HISTORY Problem Relation Age of Onset - Prostate Cancer Father - Cancer Father skin - Heart Mother - Stroke Mother - Diabetes Mother Patient Allergies ALLERGIES No Known Allergies Current Medications Current Outpatient Prescriptions on File Prior to Visit: HYDROcodone-Acetaminophen (NORCO) 10-325 mg per tablet Take 1 tablet by mouth every 6 hours as needed for up to 30 days.Earliest Fill Date: 05/25/18 aspirin, enteric coated (ASPIRIN, ENTERIC COATED) 81 mg EC tablet Take 81 mg by mouth once daily. atenolol (TENORMIN) 25 mg tablet TAKE 1/2 TABLET BY MOUTH ONCE DAILY melatonin 3 mg tablet Take 3 mg by mouth daily at bedtime. calcium carbonate/vitamin D3 (CALCIUM 600 + D,3, ORAL) Take by mouth once daily. omega-3 fatty acids/fish oil (OMEGA 3 FISH OIL ORAL) Take by mouth once daily. [id number] 160 mg iron-1 mg-60 mcg tab Take by mouth once daily. isosorbide mononitrate ER (IMDUR) 60 mg 24 hr tablet Take 1 tablet by mouth once daily. simvastatin (ZOCOR) 40 mg tablet Take 1 tablet by mouth daily at bedtime. finasteride (PROSCAR) 5 mg tablet Take 5 mg by mouth once daily. COMPOUNDED PRESCRIPTION Colostomy Care Supplies; 1 months worth with 11 refills (fax # [phone])3M Cavilon No-sting Barrier Film Wipes # [id number] Qty 1 box of 50Stomahesive Paste 2 oz tube # [id number] Qty 1 tube COMPOUNDED PRESCRIPTION Colostomy Care Supplies; 1 months worth with 11 refills (fax # [phone])Adapt Oval Convex Ring 7/8 x 1 1/2 # [id number] Qty 1 box 10 eachPremier 1-Piece Soft Convvex Drainable pouch Cut to fit 1-1/2 Qty 2 box 5 each Loperamide HCl (IMODIUM A-D) 2 mg tab Take 2 mg by mouth as needed. No current facility-administered medications on file prior to visit. Social History Social History Marital status: Spouse name: Years of education: Number of children: Social History Main Topics Smoking status: Never Smoker Smokeless tobacco: Current User Types: Chew Alcohol use: Yes Comment: rare Drug use: No Review of Symptoms REVIEW OF SYSTEMS GENERAL: No unexplained weight loss, malaise or fevers. Has changed diet some and has lost 4 lbs. HEENT: Negative for frequent or significant headaches, significant change in vision, significant vision problems, significant ear problems or hearing loss, nasal discharge, or nose bleeds, sore throat, difficulty swallowing, mouth lesions, hoarseness NECK: Negative for lumps, goiter, pain and significant neck swelling RESPIRATORY: Negative for cough, hemoptysis, wheezing, COPD, dyspnea or shortness of breath CARDIOVASCULAR: Negative for chest pain, leg swelling, hypertension, CHF or palpitations GI: No nausea, vomiting, or diarrhea, No heartburn or reflux symptoms and no blood : No history of dysuria or blood MUSCULOSKELETAL: having some low back pain and seeing Dr. Hussein SKIN: Negative for lesions, rash, and itching PSYCH: Negative for sleep disturbance, mood disorder and recent psychosocial stressors HEMATOLOGY/LYMPHOLOGY: Negative for prolonged bleeding, bruising easily or swollen nodes ENDOCRINE: Negative for cold or heat intolerance, polyuria, polydipsia and goiter NEURO: No history of headaches, syncope, paralysis, seizures or tremors EXAM: BP 118/56 Pulse 80 Resp 14 Ht 168.9 cm (5' 6.5) Wt 78.9 kg (174 lb) BMI 27.66 kg/m? General Appearance: Well appearing, alert, in no acute distress, well-hydrated, well nourished.. Head: Normocephalic, no masses, lesions, tenderness or abnormalities. Eyes: Anicteric sclera. Pupils are equally round and reactive to light. Extraocular movements are intact. . Ears: External ears normal, canals clear. Nose/Sinuses: Nares normal, septum midline, mucosa normal, no drainage or sinus tenderness. Oropharynx: Lips, mucosa, and tongue normal, teeth and gums normal, oropharynx normal. Neck: Supple, no adenopathy; thyroid symmetric, normal size, no bruits. Lungs: lungs clear to auscultation. No wheezing, rhonchi, rales. Heart: RRR without murmur, gallop, or rubs. No ectopy. Abdomen: Normal abdominal exam, Abdomen soft, non-tender. Bowel sounds normal. No masses, organomegaly, has colostomy bag on the LLQ. Extremities: No deformities, edema, skin discoloration,. Musculoskeletal: Muscular strength intact, No joint swelling, deformity, or tenderness. Peripheral Pulses: Normal. Neurologic: Gait normal. Reflexes normal and symmetric. Sensation to light touch and crainal nerves 2-12 intact.. Genitalia: Normal, Penis normal. No urethral discharge. Scrotum normal to palpation. No hernia.. Health Maintenance List DTAP,TDAP,TD(1 - Tdap) due on 1959 ADULT PREVNAR-13 due on 02/08/2004 PNEUMOVAX AGE 65 AND OVER WITH 5YR LOOKBACK(1) due on 02/08/2004 STATIN MED ADHERENCE due on 08/15/2018 LDL CHOLESTEROL due on 01/28/2019 ANNUAL PCP TEAM CHRONIC DISEASE VISIT due on 04/29/2019 DIABETES SCREEN due on 01/28/2021 LIPID SCREEN due on 01/28/2023 INFLUENZA Completed Data reviewed Component Latest Ref Rng AND Units 01/28/2018 Protein, Total 6.3 - 8.0 g/dL 6.8 Albumin 3.9 - 4.9 g/dL 4.2 Calcium 8.5 - 10.2 mg/dL 9.3 Bilirubin, Total 0.2 - 1.3 mg/dL 0.4 Alkaline Phosphatase 36 - 108 U/L 81 AST 14 - 40 U/L 25 Glucose 74 - 99 mg/dL 107 (H) BUN 9 - 24 mg/dL 17 Creatinine 0.73 - 1.22 mg/dL 0.99 Sodium 136 - 144 mmol/L 141 Potassium 3.7 - 5.1 mmol/L 4.7 Chloride 97 - 105 mmol/L 103 CO2 22 - 30 mmol/L 28 Anion Gap 9 - 18 mmol/L 10 ALT 10 - 54 U/L 22 eGFR- >60 eGFR-All Other Races . >60 Cholesterol, Total <200 mg/dL 109 Triglyceride <150 mg/dL 118 HDL Cholesterol >39 mg/dL 38 (L) LDL Cholesterol <100 mg/dL 47 Non HDL Cholesterol <130 mg/dL 71 Fasting Time hrs Unknown VLDL Cholesterol <30 mg/dL 24 TC:HDL Ratio <5.10 2.87 LDL:HDL Ratio <2.54 1.24 Hemoglobin A1C 4.3 - 5.6 % 5.9 (H) Estimated Average Glucose mg/dL 123 A/P ASSESSMENT/PLAN: 1. Medicare annual wellness visit, initial - ICD9: V70.0, ICD10: Z00.00 (primary diagnosis) - Recommended regular aerobic exercise. - Follow up for annual exam in one year. 2. Elevated hemoglobin A1c - ICD9: 790.29, ICD10: R73.09 Check - HGB A1C 3. Hyperlipidemia, mixed - ICD9: 272.2, ICD10: E78.2 - to be determined upon return of lab results - Encouraged following a low fat, low cholesterol diet. - Discussed the benefits of regular aerobic exercise and weight loss. - Encouraged following a low carbohydrate, healthy oil intake diet. - Check LIPID PANEL, NONFASTING 4. Coronary artery disease involving [place] coronary artery of [place] heart without angina pectoris - ICD9: 414.01, ICD10: I25.10 - Clinically stable cont med's and f/u with cardio - LIPID PANEL, NONFASTING 5. History of DVT (deep vein thrombosis) - ICD9: V12.51, ICD10: Z86.718 - Off eliquis since March with no recurrence. 6. Malignant neoplasm of colon, unspecified part of colon (HCC) - ICD9: 153.9, ICD10: C18.9 - cont oncology f/u 7. Malignant neoplasm of sigmoid colon (HCC) - ICD9: 153.3, ICD10: C18.7 - As per #6 8. Malignant neoplasm of ascending colon (HCC) - ICD9: 153.6, ICD10: C18.2 - as per #6 9. Colostomy care (HCC) - ICD9: V55.3, ICD10: Z43.3 - stable 10. Colostomy in place (HCC) - ICD9: V44.3, ICD10: Z93.3 - stable 11. Arthritis, lumbar spine - ICD9: 721.3, ICD10: M47.816 - Cont f/u with Dr. Hussein 12. Need for vaccination - ICD9: V05.9, ICD10: Z23 - PNEUMOCOCCAL-13 VACCINE PCV-13 given F/u in 6 months routine check CMP, FLP, Ua and A1c prior. Vishal Jones MD CNOV Observed: 07/30/2018 Status: COMPLETED Source: [place] 3:00 PM [facility] REPOSITORY Office Visit (FAMPWS) SAM HAGEN ([id number]) 1940 M Date Time Provider Department 07/30/18 3:00 PM VISHAL JONESPWS During your visit today, we recorded the following information about you: Pulse Respiration Blood pressure Weight 80/minute 14/minute 118/56 78.9 kg Height 1.689 m Vishal Jones MD 07/30/2018 9:41 PM Signed Medicare Yearly Visit Medical B eligibilty date 03/15/2017 Date of last exam NA PAST MEDICAL HISTORY Diagnosis Date - Arthritis of right hip 09/25/2017 - Arthritis, lumbar spine 09/25/2017 - Bladder stone 09/25/[address] Bagley - Colon cancer (HCC) 06/30/[address] Greenberg, Had extension into the bladder wall and hd a partial cystectomy. - Colostomy care (HCC) 09/25/2017 - Colostomy in place (HCC) 09/25/2017 - Coronary artery disease involving [place] coronary artery 09/25/[address] 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 Medications reviewed: Yes FAMILY HISTORY Problem Relation Age of Onset - Prostate Cancer Father - Cancer Father skin - Heart Mother - Stroke Mother - Diabetes Mother SOCIAL HISTORY: Social History Marital status: Spouse name: Years of education: Number of children: Social History Main Topics Smoking status: Never Smoker Smokeless tobacco: Current User Types: Chew Alcohol use: Yes Comment: rare Drug use: No Sam denies regular aerobic exercise. He watches his diet for sodium, low fat and low cholesterol generally not very much. List of current specialists seen: Dr. Huntley End of Live Planning discussed including patients advanced directive wishes: Yes I am willing to follow Sam's advanced directives. Depression screen He in the past two weeks denies having felt down, depressed, hopeless or with little interest or pleasure in doing things. Functional Ability/Safety Screen 1. Was the patient's timed Up and Go test unsteady or longer than 30 seconds? No 2. Does the patient need help with the phone, transportation, shopping,preparing meals, housework, laundry, medications or managing money? No 3. Does your home have rugs in the hallway(Y), lack of grab bars in the bathroom, lack of handrails on the stairs or have poor lighting? No Hearing Evaluation: normal PHYSICAL EXAM BP 118/56 Pulse 80 Resp 14 Ht 168.9 cm (5' 6.5) Wt 78.9 kg (174 lb) BMI 27.66 kg/m? Alert and oriented X 3: YES Body mass index is 27.66 kg/m?. Seeing optho See below ASSESSMENT/PLAN: 78 year old male The following prevention plan was discussed during the office visit and provided to the patient: See below Vishal Jones MD Chief Complaint Patient presents with: Physical HPI Sam Hagen is a 78 year old male who presents here today for extensive. Patient with Hx hyperlipidemia, elevated A1c, colon cancer S/P colectomy, CAD, arthritis, bladder stones as well as those reviewed and addressed below. Continues to see Dr. Greenberg for colon cancer screening and will be having a CT in the near future. Past medical history, appointments, medications, allergies reviewed. Previous Medical History PAST MEDICAL HISTORY Diagnosis Date - Arthritis of right hip 09/25/2017 - Arthritis, lumbar spine 09/25/2017 - Bladder stone 09/25/[address] Bagley - Colon cancer (HCC) 06/30/[address] Greenberg, Had extension into the bladder wall and hd a partial cystectomy. - Colostomy care (HCC) 09/25/2017 - Colostomy in place (HCC) 09/25/2017 - Coronary artery disease involving ugashik coronary artery 09/25/[address] 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 and other lower urinary tract symptoms (LUTS) Previous Surgical History PAST SURGICAL HISTORY Procedure Laterality Date - CARPAL TUNNEL Bilateral - CATARACT EXTRACTION HX Right - ECHOCARDIOGRAM 07/05/2017 - LAP REPAIR INTIAL INGUINAL HERNIA 01/11/09 - PAST SURGICAL HISTORY OF 07/03/2017 COLECTOMY ABDOMINAL W/O PROCTECTOMY W/ ILEOSTOMY/ILEOPROCTOSTOMY, TOTAL - REPAIR COMPL ROTATOR CUFF AVULSN,CHR left - REPAIR SLIDING INGUINAL HERNIA LIH - REPAIR UMBILICAL ANNA,5+Y/O,REDUC 01/11/09 - SIGMOIDOSCOPY 06/29/2017 Family History FAMILY HISTORY Problem Relation Age of Onset - Prostate Cancer Father - Cancer Father skin - Heart Mother - Stroke Mother - Diabetes Mother Patient Allergies ALLERGIES No Known Allergies Current Medications Current Outpatient Prescriptions on File Prior to Visit: HYDROcodone-Acetaminophen (NORCO) 10-325 mg per tablet Take 1 tablet by mouth every 6 hours as needed for up to 30 days.Earliest Fill Date: 05/25/18 aspirin, enteric coated (ASPIRIN, ENTERIC COATED) 81 mg EC tablet Take 81 mg by mouth once daily. atenolol (TENORMIN) 25 mg tablet TAKE 1/2 TABLET BY MOUTH ONCE DAILY melatonin 3 mg tablet Take 3 mg by mouth daily at bedtime. calcium carbonate/vitamin D3 (CALCIUM 600 + D,3, ORAL) Take by mouth once daily. omega-3 fatty acids/fish oil (OMEGA 3 FISH OIL ORAL) Take by mouth once daily. egpe-sybxpce-[id number]-S-kqqi-Po-mfl 160 mg iron-1 mg-60 mcg tab Take by mouth once daily. isosorbide mononitrate ER (IMDUR) 60 mg 24 hr tablet Take 1 tablet by mouth once daily. simvastatin (ZOCOR) 40 mg tablet Take 1 tablet by mouth daily at bedtime. finasteride (PROSCAR) 5 mg tablet Take 5 mg by mouth once daily. COMPOUNDED PRESCRIPTION Colostomy Care Supplies; 1 months worth with 11 refills (fax # [phone])3M Cavilon No-sting Barrier Film Wipes # [id number] Qty 1 box of 50Stomahesive Paste 2 oz tube # [id number] Qty 1 tube COMPOUNDED PRESCRIPTION Colostomy Care Supplies; 1 months worth with 11 refills (fax # [phone])Adapt Oval Convex Ring 7/8 x 1 /2 # [id number] Qty 1 box 10 eachPremier 1-Piece Soft Convvex Drainable pouch Cut to fit 1-09/16 Qty 2 box 5 each Loperamide HCl (IMODIUM A-D) 2 mg tab Take 2 mg by mouth as needed. No current facility-administered medications on file prior to visit. Social History Social History Marital status: Spouse name: Years of education: Number of children: Social History Main Topics Smoking status: Never Smoker Smokeless tobacco: Current User Types: Chew Alcohol use: Yes Comment: rare Drug use: No Review of Symptoms REVIEW OF SYSTEMS GENERAL: No unexplained weight loss, malaise or fevers. Has changed diet some and has lost 4 lbs. HEENT: Negative for frequent or significant headaches, significant change in vision, significant vision problems, significant ear problems or hearing loss, nasal discharge, or nose bleeds, sore throat, difficulty swallowing, mouth lesions, hoarseness NECK: Negative for lumps, goiter, pain and significant neck swelling RESPIRATORY: Negative for cough, hemoptysis, wheezing, COPD, dyspnea or shortness of breath CARDIOVASCULAR: Negative for chest pain, leg swelling, hypertension, CHF or palpitations GI: No nausea, vomiting, or diarrhea, No heartburn or reflux symptoms and no blood : No history of dysuria or blood MUSCULOSKELETAL: having some low back pain and seeing Dr. Hussein SKIN: Negative for lesions, rash, and itching PSYCH: Negative for sleep disturbance, mood disorder and recent psychosocial stressors HEMATOLOGY/LYMPHOLOGY: Negative for prolonged bleeding, bruising easily or swollen nodes ENDOCRINE: Negative for cold or heat intolerance, polyuria, polydipsia and goiter NEURO: No history of headaches, syncope, paralysis, seizures or tremors EXAM: BP 118/56 Pulse 80 Resp 14 Ht 168.9 cm (5' 6.5) Wt 78.9 kg (174 lb) BMI 27.66 kg/m? General Appearance: Well appearing, alert, in no acute distress, well-hydrated, well nourished.. Head: Normocephalic, no masses, lesions, tenderness or abnormalities. Eyes: Anicteric sclera. Pupils are equally round and reactive to light. Extraocular movements are intact. . Ears: External ears normal, canals clear. Nose/Sinuses: Nares normal, septum midline, mucosa normal, no drainage or sinus tenderness. Oropharynx: Lips, mucosa, and tongue normal, teeth and gums normal, oropharynx normal. Neck: Supple, no adenopathy; thyroid symmetric, normal size, no bruits. Lungs: lungs clear to auscultation. No wheezing, rhonchi, rales. Heart: RRR without murmur, gallop, or rubs. No ectopy. Abdomen: Normal abdominal exam, Abdomen soft, non-tender. Bowel sounds normal. No masses, organomegaly, has colostomy bag on the LLQ. Extremities: No deformities, edema, skin discoloration,. Musculoskeletal: Muscular strength intact, No joint swelling, deformity, or tenderness. Peripheral Pulses: Normal. Neurologic: Gait normal. Reflexes normal and symmetric. Sensation to light touch and crainal nerves 2-12 intact.. Genitalia: Normal, Penis normal. No urethral discharge. Scrotum normal to palpation. No hernia.. Health Maintenance List DTAP,TDAP,TD(1 - Tdap) due on 1959 ADULT PREVNAR-13 due on 02/08/2004 PNEUMOVAX AGE 65 AND OVER WITH 5YR LOOKBACK(1) due on 02/08/2004 STATIN MED ADHERENCE due on 08/15/2018 LDL CHOLESTEROL due on 01/28/2019 ANNUAL PCP TEAM CHRONIC DISEASE VISIT due on 04/29/2019 DIABETES SCREEN due on 01/28/2021 LIPID SCREEN due on 01/28/2023 INFLUENZA Completed Data reviewed Component Latest Ref Rng AND Units 01/28/2018 Protein, Total 6.3 - 8.0 g/dL 6.8 Albumin 3.9 - 4.9 g/dL 4.2 Calcium 8.5 - 10.2 mg/dL 9.3 Bilirubin, Total 0.2 - 1.3 mg/dL 0.4 Alkaline Phosphatase 36 - 108 U/L 81 AST 14 - 40 U/L 25 Glucose 74 - 99 mg/dL 107 (H) BUN 9 - 24 mg/dL 17 Creatinine 0.73 - 1.22 mg/dL 0.99 Sodium 136 - 144 mmol/L 141 Potassium 3.7 - 5.1 mmol/L 4.7 Chloride 97 - 105 mmol/L 103 CO2 22 - 30 mmol/L 28 Anion Gap 9 - 18 mmol/L 10 ALT 10 - 54 U/L 22 eGFR- >60 eGFR-All Other Races . >60 Cholesterol, Total <200 mg/dL 109 Triglyceride <150 mg/dL 118 HDL Cholesterol >39 mg/dL 38 (L) LDL Cholesterol <100 mg/dL 47 Non HDL Cholesterol <130 mg/dL 71 Fasting Time hrs Unknown VLDL Cholesterol <30 mg/dL 24 TC:HDL Ratio <5.10 2.87 LDL:HDL Ratio <2.54 1.24 Hemoglobin A1C 4.3 - 5.6 % 5.9 (H) Estimated Average Glucose mg/dL 123 A/P ASSESSMENT/PLAN: 1. Medicare annual wellness visit, initial - ICD9: V70.0, ICD10: Z00.00 (primary diagnosis) - Recommended regular aerobic exercise. - Follow up for annual exam in one year. 2. Elevated hemoglobin A1c - ICD9: 790.29, ICD10: R73.09 Check - HGB A1C 3. Hyperlipidemia, mixed - ICD9: 272.2, ICD10: E78.2 - to be determined upon return of lab results - Encouraged following a low fat, low cholesterol diet. - Discussed the benefits of regular aerobic exercise and weight loss. - Encouraged following a low carbohydrate, healthy oil intake diet. - Check LIPID PANEL, NONFASTING 4. Coronary artery disease involving ugash[place] coronary artery of ugash[place] heart without angina pectoris - ICD9: 414.01, ICD10: I25.10 - Clinically stable cont med's and f/u with cardio - LIPID PANEL, NONFASTING 5. History of DVT (deep vein thrombosis) - ICD9: V12.51, ICD10: Z86.718 - Off eliquis since March with no recurrence. 6. Malignant neoplasm of colon, unspecified part of colon (HCC) - ICD9: 153.9, ICD10: C18.9 - cont oncology f/u 7. Malignant neoplasm of sigmoid colon (HCC) - ICD9: 153.3, ICD10: C18.7 - As per #6 8. Malignant neoplasm of ascending colon (HCC) - ICD9: 153.6, ICD10: C18.2 - as per #6 9. Colostomy care (HCC) - ICD9: V55.3, ICD10: Z43.3 - stable 10. Colostomy in place (HCC) - ICD9: V44.3, ICD10: Z93.3 - stable 11. Arthritis, lumbar spine - ICD9: 721.3, ICD10: M47.816 - Cont f/u with Dr. Hussein 12. Need for vaccination - ICD9: V05.9, ICD10: Z23 - PNEUMOCOCCAL-13 VACCINE PCV-13 given F/u in 6 months routine check CMP, FLP, Ua and A1c prior. MD Vishal Parks MD 07/30/2018 3:27 PM Signed Please get fasting labs and urine test on or after 01/15/3019 prior to next visit. Referring Provider: VISHAL JONES [[id number]] Allergies As of Date: 07/30/2018 (No Known Allergies) Date Reviewed: 07/30/2018 Reviewed by: Alejandra Farmer Ma - Fully Assessed Reason for Visit: Physical [83] Primary Visit Diagnosis:Medicare annual wellness visit, initial [Z00.00] Other Visit Diagnoses:Elevated hemoglobin A1c [R73.09] Hyperlipidemia, mixed [E78.2] 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] History of DVT (deep vein thrombosis) [Z86.718] Malignant neoplasm of colon, unspecified part of colon (HCC) [C18.9] Malignant neoplasm of sigmoid colon (HCC) [C18.7] Malignant neoplasm of ascending colon (HCC) [C18.2] Colostomy care (HCC) [Z43.3] Colostomy in place (HCC) [Z93.3] Arthritis, lumbar spine [M47.816] Need for vaccination [Z23] Comment:last done: 07/30/2018 Medicare annual wellness visit, subsequent [Z00.00] Order(s):PNEUMOCOCCAL-13 VACCINE PCV-13 [71272ZKG] Order #: [id number] HGB A1C [XLZOA1I] Order #: [id number] FUTURE LIPID PANEL, NONFASTING [SQLIPNF] Order #: [id number] FUTURE COMP METABOLIC PANEL [SQCMP] Order #: [id number] FUTURE LIPID PANEL, NONFASTING [SQLIPNF] Order #: [id number] FUTURE URINALYSIS WITH MICROSCOPIC [SQUAWMIC] Order #: [id number] FUTURE HGB A1C [FXLBM0U] Order #: [id number] FUTURE Prescriptions as of 07/30/2018 Sig: X ONDANSETRON 8 MG DISINTEGRATI* Take 8 mg by mouth every 8 ho* HYDROCODONE 10 MG-ACETAMINOPH* Take 1 tablet by mouth every * ASPIRIN 81 MG TABLET,DELAYED * Take 81 mg by mouth once renu* X ATENOLOL 25 MG TABLET TAKE 1/2 TABLET BY MOUTH ONCE* MELATONIN 3 MG TABLET Take 3 mg by mouth daily at b* CALCIUM 600 + D(3) ORAL Take by mouth once daily. OMEGA 3 FISH OIL ORAL Take by mouth once daily. IRON 160 MG-METHYLFOLATE 1 MG* Take by mouth once daily. ISOSORBIDE MONONITRATE ER 60 * Take 1 tablet by mouth once d* SIMVASTATIN 40 MG TABLET Take 1 tablet by mouth daily * FINASTERIDE 5 MG TABLET Take 5 mg by mouth once daily. COMPOUNDED PRESCRIPTION Colostomy Care Supplies; 1 m* COMPOUNDED PRESCRIPTION Colostomy Care Supplies; 1 m* LOPERAMIDE 2 MG TABLET Take 2 mg by mouth as needed. Problem List As Of Date 07/30/2018 Noted Resolved Bowel obstruction (HCC) [K56.609] INVALID FOR*07/10/2017 More... Colon cancer (HCC) [C18.9] INVALID FOR* Priority: B More... 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 Arthritis of right hip [M16.11] INVALID FOR* Priority: M Colostomy care ([facility]) [Z43.3] INVALID FOR* Priority: C Colostomy in place ([facility]) [Z93.3] INVALID FOR* Priority: C History of DVT (deep vein thrombosis) [Z86.718] INVALID FOR* Priority: A More... Bladder stone [N21.0] INVALID FOR* Priority: C More... Coronary artery disease involving [place] rivera*INVALID FOR* Priority: A More... H/O heart artery stent [Z95.5] INVALID FOR* Priority: B More... Nerve pain [M79.2] INVALID FOR* Priority: M More... Hyperlipidemia, mixed [E78.2] INVALID FOR* Priority: A Chronic midline back pain [M54.9, G89.29] INVALID FOR* Priority: M Elevated hemoglobin A1c [R73.09] INVALID FOR* Priority: A Medicare annual wellness visit, subsequent [Z00*INVALID FOR* Priority: E More... Well adult exam [Z00.00] INVALID FOR* Priority: E More... Other instructions from your clinician: Please get fasting labs and urine test on or after 01/15/3019 prior to next visit. Medications Discontinued During This Encounter gabapentin (NEURONTIN) 300 mg capsule 90 c* 5 12/25/2017 07/30/2018 Route: ORAL Sig: Take 1 capsule by mouth three times daily for 180 days. Disc: Reason for discontinue is not on file. Omeprazole (PRILOSEC) 40 mg capsule 30 c* 5 10/20/2017 07/30/2018 Route: ORAL Sig: Take 1 capsule by mouth once daily. Disc: Discontinued by Patient Disposition: Return in about 6 months (around 01/27/2019) for routine. Follow-up and Disposition History Recorded Encounter Status:Closed by VISHAL JONES on 07/30/18 LUMBAR SPINE 2 OR 3 Observed: 07/21/2018 Status: F Source: [facility] VIEWS 11:29 AM [facility] Imaging Services [address] [place] [address] [place] [address] Lumbar Spine 2 or 3 Views MR#: [id number] Acct: [id number] Name: SAM HAGEN Rep #: [id number] : 1940 M 78 From: Mikhail Jerez MD PCP: Vishal Jones MD Status: REG CLI Study: Lumbar Spine 2 or 3 Views Date of Exam: 07/21/18 Exam# [id number] Ordering Dr: Chavo Hussein MD STUDY: X-RAY - LUMBAR SPINE REASON FOR EXAM: Male, 78 years old. Back and leg pain TECHNIQUE: 2 view(s) of the lumbar spine were obtained. COMPARISON: 12/07/2013 FINDINGS: Stable grade 1 L3-4 anterolisthesis. Diffuse facet disease. L5-S1 degenerative disc disease. No compression deformities are seen. Hernia mesh on the right. Arterial calcifications. RAD/Lumbar Spine 2 or 3 Views IMPRESSION: Stable grade 1 L3-4 anterolisthesis. Diffuse facet disease. L5-S1 degenerative disc disease. No compression deformities are seen. Electronically Signed: Mikhail Jerez MD at 11:23 EST Tel , Service support , CC: Chavo Hussein MD; Vishal Jones MD Call Center Team Leader: Signed URINALYSIS WITH Collected: 05/26/2018 Status: F Source: [facility] 4:24 PM [facility] REPOSITORY TYPE CODE TESTS RESULT OUT OF RANGE REFERENCE UNITS LAB UCOL Yellow Color Yellow LAB [facility] Clear Clarity Clear LAB UGLUC Negative mg/dL Glucose, Urine Negative LAB UBIL Negative Bilirubin, Urine Negative LAB UKET Negative Ketones, Urine Negative LAB USPG 1.005-1.030 Specific [place], Ur 1.020 LAB UHGB Negative Hemoglobin/Blood, Negative Ur LAB UPH 4.5-8.0 pH 5.0 LAB UPROT Negative mg/dL Protein, Abnormal Urine 30 Alert LAB UUROB Normal Urobilinogen Normal LAB UNITR Negative Nitrites Negative LAB ULKEST Negative Leukest Abnormal Trace Alert LAB UCOM Comments SEE COMMENT Result Comment: N/A LAB UMCOM Urine SEE Shyanne Comment COMMENT Result Comment: N/A LAB UWBC 0-5 /HPF Abnormal WBC Alert 6-10 LAB URBC 0-3 /HPF RBC 0-3 LAB UCRYS 0 /HPF Abnormal Alert Crystals SEE COMMENT Result Comment: Moderate Calcium Oxalate Crystal Performed By: #### UAWMIC #### [place] [id number] [place] [address] Observed: 05/26/2018 Status: F Source: [facility] 4:23 PM [facility] REPOSITORY Sp. Request/Comment: - Best Practice Alert: To ensure optimal transport conditions and accurate culture results transfer urine specimens to dominguez top C and S preservative tube. Culture Result - No growth (<1,000 CFU/ml) Performed By: #### URCUL #### [place] [address] CEA Collected: 05/04/2018 Status: F Source: [facility] 10:30 AM [facility] REPOSITORY TYPE CODE TESTS RESULT OUT OF RANGE REFERENCE UNITS LAB CEA 0.0-2.9 ng/mL CEA 1.1 Result Comment: Test analyzed by the [employer] DxI method. Performed By: #### CEA #### [place] [id number] PROGRESS Observed: 05/04/2018 Status: COMPLETED Source: [facility] 10:03 AM [facility] REPOSITORY HNO ID: [id number] Author: Tameka (Blanquita Marshall Service: (none) Author Type: Nurse Practitioner Type: Progress Notes Filed: 05/04/2018 1:17 PM Note Text: Chief Complaint Patient presents with: Established Patient HPI: Sam Hagen is a 78 year old male who presents here today for follow up colon cancer. Per Dr. Greenberg's previous note: H/o CAD?([place]; treated with PCI balloon angioplasty; no stent) and prostate cancer?(tx with radiation x44 fx ~6-8 years ago). ? He presented to [facility] with symptoms of bowel obstruction. He underwent attempted colonoscopy but the procedure was aborted when the scope was not able to be passed through the rectum/sigmoid area. He was transferred to [facility]. He ultimately underwent a total colectomy along with end ileostomy and partial bladder resection on 07/03/2017. He was noted to have 2 foci of tumor one in the cecum and one in the sigmoid colon. The latter tumor was adherent to the bladder invasive to the bladder wall. ? 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 ?TUMOR PENETRATES TO THE SURFACE OF THE VISCERAL PERITONEUM. SURGICAL MARGINS NEGATIVE. 1 OF 13 LYMPH NODES POSITIVE FOR METASTATIC ADENOCARCINOMA AND 1 TUMOR DEPOSIT PRESENT. PERINEURAL AND LYMPHOVASCULAR INVASION PRESENT. B) SMALL INTESTINE, TERMINAL ILEUM, ILEOSTOMY - BENIGN SMALL INTESTINAL TISSUE. C) BLADDER, PARTIAL CYSTECTOMY - FOCAL INVOLVEMENT OF THICK SMOOTH MUSCLE BUNDLES BY ADENOCARCINOMA. ?NO UROTHELIUM PRESENT. D) COLON, SIGMOID, SEGMENTAL RESECTION - INVASIVE LOW GRADE (MODERATELY DIFFERENTIATED) ADENOCARCINOMA (3 CM IN GREATEST DIMENSION). ?SURGICAL MARGINS APPEAR NEGATIVE. BENIGN TRANSECTED BENIGN VAS DEFERENS (2) AND THICK SMOOTH MUSCLE SUGGESTIVE OF BLADDER. 1 OF 9 LYMPH NODES POSITIVE FOR METASTATIC ADENOCARCINOMA ? ? Previous therapy: 1) Infusional 5FU. ? Radiation not recommended.? No complaints. ? Appetite:great Energy level:great [place] mow five yards in the neighborhood. Denies fevers or recent illness. Resp:denies cough or sob Cardiac:denies chest pain/palpitations-Followed by cards/Dr. Portillo GI:denies abd pain, n/v, ostomy functioning well :denies dysuria/hematuria-followed by PCP for microscopic blood Extrem:I'm seeing pain mgmt for R hip pain-I've had some injections. 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 Skin:denies rashes/lesions Heme:denies bleeding The ROS is otherwise negative. Past medical history, appointments, medications, allergies reviewed. No changes. EXAM: BP 115/58 Pulse (!) 55 Temp 37 ?C (98.6 ?F) (Oral) Wt 80.1 kg (176 lb 8 oz) BMI 27.64 kg/m? . APPEARANCE Well appearing, alert, in no acute distress, well-hydrated, well nourished. HEART RRR with normal S1 and S2, no murmurs LUNG clear to auscultation LYMPH NODES No cervical lymphadenopathy, No supraclavicular lymphadenopathy and No axillary lymphadenopathy. ABDOMEN ostomy appears healthy, bowel sounds normoactive, no bruits, soft, non-tender, non-distended, without organomegaly or palpable masses EXTREMITIES No edema NEURO Awake, alert and oriented x 3, Normal gait and No involuntary motions. SKIN Skin color, texture, turgor normal, no suspicious rashes or lesions ASSESSMENT/PLAN: 1. Malignant neoplasm of ascending colon (HCC) - ICD9: 153.6, ICD10: C18.2 mpT4a pN1 M0 adenocarcinoma with mucinous features of the ascending colon. There was lymphovascular as well as perineural invasion observed. One tumor deposit. One of 13 nodes. -mpT4b pN1 M0 adenocarcinoma of the sigmoid colon. Focal involvement of bladder. Lymphovascular invasion was observed. No tumor deposits. One of 9 nodes involved. - No concerning findings on exam. - CEA today. - Needs port flushes. - CT abd/pelvis in Aug. - Follow up in 3 months with CEA pending today's CEA. - Pt. aware to call office with any questions/concerns. ? The patient indicates understanding of these issues and agrees with the plan. Tameka Marshall APRN.CNP CNOVSP Observed: 05/04/2018 Status: COMPLETED Source: [facility] 10:00 AM [facility] REPOSITORY Visit (SP) Office (STEPHANIE) SAM HAGEN ([id number]) 1940 M Date Time Provider Department 05/04/18 10:00 AM TAMEKA MARSHALL (JENNIFER) STEPHANIE During your visit today, we recorded the following information about you: Temperature Pulse Blood pressure Weight 98.6 degrees 55/minute 115/58 80.1 kg Tameka Marshall APRN.CNP 05/04/2018 1:17 PM Signed Chief Complaint Patient presents with: Established Patient HPI: Sam Hagen is a 78 year old male who presents here today for follow up colon cancer. Per Dr. Greenberg's previous note: H/o CAD?([place]; treated with PCI balloon angioplasty; no stent) and prostate cancer?(tx with radiation x44 fx ~6-8 years ago). ? He presented to [facility] with symptoms of bowel obstruction. He underwent attempted colonoscopy but the procedure was aborted when the scope was not able to be passed through the rectum/sigmoid area. He was transferred to [facility]. He ultimately underwent a total colectomy along with end ileostomy and partial bladder resection on 07/03/2017. He was noted to have 2 foci of tumor one in the cecum and one in the sigmoid colon. The latter tumor was adherent to the bladder invasive to the bladder wall. ? 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 ?TUMOR PENETRATES TO THE SURFACE OF THE VISCERAL PERITONEUM. SURGICAL MARGINS NEGATIVE. 1 OF 13 LYMPH NODES POSITIVE FOR METASTATIC ADENOCARCINOMA AND 1 TUMOR DEPOSIT PRESENT. PERINEURAL AND LYMPHOVASCULAR INVASION PRESENT. B) SMALL INTESTINE, TERMINAL ILEUM, ILEOSTOMY - BENIGN SMALL INTESTINAL TISSUE. C) BLADDER, PARTIAL CYSTECTOMY - FOCAL INVOLVEMENT OF THICK SMOOTH MUSCLE BUNDLES BY ADENOCARCINOMA. ?NO UROTHELIUM PRESENT. D) COLON, SIGMOID, SEGMENTAL RESECTION - INVASIVE LOW GRADE (MODERATELY DIFFERENTIATED) ADENOCARCINOMA (3 CM IN GREATEST DIMENSION). ?SURGICAL MARGINS APPEAR NEGATIVE. BENIGN TRANSECTED BENIGN VAS DEFERENS (2) AND THICK SMOOTH MUSCLE SUGGESTIVE OF BLADDER. 1 OF 9 LYMPH NODES POSITIVE FOR METASTATIC ADENOCARCINOMA ? ? Previous therapy: 1) Infusional 5FU. ? Radiation not recommended.? No complaints. ? Appetite:great Energy level:great [place] mow five yards in the neighborhood. Denies fevers or recent illness. Resp:denies cough or sob Cardiac:denies chest pain/palpitations-Followed by cards/Dr. Portillo GI:denies abd pain, n/v, ostomy functioning well :denies dysuria/hematuria-followed by PCP for microscopic blood Extrem:I'm seeing pain mgmt for R hip pain-I've had some injections. 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 Skin:denies rashes/lesions Heme:denies bleeding The ROS is otherwise negative. Past medical history, appointments, medications, allergies reviewed. No changes. EXAM: BP 115/58 Pulse (!) 55 Temp 37 ?C (98.6 ?F) (Oral) Wt 80.1 kg (176 lb 8 oz) BMI 27.64 kg/m? . APPEARANCE Well appearing, alert, in no acute distress, well- hydrated, well nourished. HEART RRR with normal S1 and S2, no murmurs LUNG clear to auscultation LYMPH NODES No cervical lymphadenopathy, No supraclavicular lymphadenopathy and No axillary lymphadenopathy. ABDOMEN ostomy appears healthy, bowel sounds normoactive, no bruits, soft, non-tender, non-distended, without organomegaly or palpable masses EXTREMITIES No edema NEURO Awake, alert and oriented x 3, Normal gait and No involuntary motions. SKIN Skin color, texture, turgor normal, no suspicious rashes or lesions ASSESSMENT/PLAN: 1. Malignant neoplasm of ascending colon (HCC) - ICD9: 153.6, ICD10: C18.2 mpT4a pN1 M0 adenocarcinoma with mucinous features of the ascending colon. There was lymphovascular as well as perineural invasion observed. One tumor deposit. One of 13 nodes. -mpT4b pN1 M0 adenocarcinoma of the sigmoid colon. Focal involvement of bladder. Lymphovascular invasion was observed. No tumor deposits. One of 9 nodes involved. - No concerning findings on exam. - CEA today. - Needs port flushes. - CT abd/pelvis in Aug. - Follow up in 3 months with CEA pending today's CEA. - Pt. aware to call office with any questions/concerns. ? The patient indicates understanding of these issues and agrees with the plan. Tameka Marshall, SAKINA.TOUCH UP WORKER Referring Provider: SAM GREENBERG [[id number]] Allergies As of Date: 05/04/2018 (No Known Allergies) Date Reviewed: 05/04/2018 Reviewed by: Tameka (Button Cutter) Rolando - Fully Assessed Reason for Visit: Established Patient [175] Primary Visit Diagnosis:Malignant neoplasm of ascending colon (HCC) [C18.2] Order(s):CT ABD/PEL W IVCON [[id number]] Order #: [id number] STANDING iv contrast (radiology procedure)Disp: Rfl: enteric contrast (radiology procedure)Disp: Rfl: CT ABD/PEL W IVCON [[id number]] Order #: [id number] CEA BLD [SQCEA] Order #: [id number] FUTURE Follow-up and Disposition History Recorded Prescriptions as of 05/04/2018 Sig: ASPIRIN 81 MG TABLET,DELAYED * Take 81 mg by mouth once renu* NITROFURANTOIN MONOHYDRATE AND * Take 1 capsule by mouth twice* ATENOLOL 25 MG TABLET TAKE 1/2 TABLET BY MOUTH ONCE* HYDROCODONE 10 MG-ACETAMINOPH* Take 1 tablet by mouth every * MELATONIN 3 MG TABLET Take 3 mg by mouth daily at b* CALCIUM 600 + D(3) ORAL Take by mouth once daily. OMEGA 3 FISH OIL ORAL Take by mouth once daily. IRON 160 MG-METHYLFOLATE 1 MG* Take by mouth once daily. ISOSORBIDE MONONITRATE ER 60 * Take 1 tablet by mouth once d* SIMVASTATIN 40 MG TABLET Take 1 tablet by mouth daily * GABAPENTIN 300 MG CAPSULE Take 1 capsule by mouth three* FINASTERIDE 5 MG TABLET Take 5 mg by mouth once daily. OMEPRAZOLE 40 MG CAPSULE,ROHIT* Take 1 capsule by mouth once * COMPOUNDED PRESCRIPTION Colostomy Care Supplies; 1 m* COMPOUNDED PRESCRIPTION Colostomy Care Supplies; 1 m* LOPERAMIDE 2 MG TABLET Take 2 mg by mouth as needed. Medication notes this encounter TAMSULOSIN 0.4 MG CAPSULE >> Asha Prater MA 05/04/2018 9:57 AM >> ASHA PRATER MA [facility] May 04, 2018 9:57 AM No longer taking. PROSTATE ORAL >> Asha Prater MA 05/04/2018 9:58 AM >> ASHA PRATER MA [facility] May 04, 2018 9:58 AM No longer taking. APIXABAN 5 MG TABLET >> Asha Prater MA 05/04/2018 9:57 AM >> ASHA PRATER MA May 04, 2018 9:57 AM No longer taking. ONDANSETRON HCL 8 MG TABLET >> Asha Prater MA 05/04/2018 9:59 AM >> ASHA PRATER MA May 04, 2018 9:59 AM No longer taking. Problem List As Of Date 05/04/2018 Noted Resolved Bowel obstruction (HCC) [K56.609] INVALID FOR*07/10/2017 Other specified abnormal immunological findings*INVALID FOR* More... Colon cancer ([facility]) [C18.9] INVALID FOR* Priority: B More... 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 Arthritis of right hip [M16.11] INVALID FOR* Priority: M Colostomy care ([facility]) [Z43.3] INVALID FOR* Priority: C Colostomy in place ([facility]) [Z93.3] INVALID FOR* Priority: C History of DVT (deep vein thrombosis) [Z86.718] INVALID FOR* Priority: A More... Bladder stone [N21.0] INVALID FOR* Priority: C More... Coronary artery disease involving [place] river[place]*INVALID FOR* Priority: A More... H/O heart artery stent [Z95.5] INVALID FOR* Priority: B More... Nerve pain [M79.2] INVALID FOR* Priority: M More... Hyperlipidemia, mixed [E78.2] INVALID FOR* Priority: A Chronic midline back pain [M54.9, G89.29] INVALID FOR* Priority: M Encounter Status:Closed by TAMEKA MARSHALL CNP on 05/04/18 Observed: 04/29/2018 Status: F Source: [facility] URINE CULTURE 7:22 PM [facility] REPOSITORY Sp. Request/Comment: - Specimen received in preservative Culture Result - 50,000 - <100,000 CFU/ml Enterococcus faecalis --> ABNORMAL ALERT Cephalosporins, clindamycin, and TMP-SMX are not effective for the treatment of enterococcal infections. --> ABNORMAL ALERT ORGANISM: Enterococcus faecalis METHOD: Minimum inhibitory concentration(Vitek) Antibiotic Interp SHYANNE Status Ampicillin SUSCEPTIBLE <=2 F Nitrofurantoin SUSCEPTIBLE <=16 F Vancomycin SUSCEPTIBLE 1 F Performed By: #### URCUL #### [facility] [place] [facility] [address] [place], [place] [address] PROGRESS Observed: 04/29/2018 Status: COMPLETED Source: [facility] 7:10 PM [facility] [place] REPOSITORY HNO ID: [id number] Author: Vishal Jones Service: (none) Author Type: Physician Type: Progress Notes Filed: 04/29/2018 8:28 PM Note Text: Chief Complaint Patient presents with: UTI: burning sensation, frequent urination, weak urination HPI Sam Hagen is a 78 year old male who presents here today for Above Complaints.. Patient was treated for a UTI with cipro 250 mg twice ad ay for 7 days 01/29/2018. After completing antibiotic patient felt better then symptoms returned. He was then seen in the office 04/02/2018 and treated for a UTI with cipro 500 mg twice a day for 10 days, Culture showed sensitivity to Cipro. Seemed to get better but when he completed the script about a week later he developed the symptoms of urine frequency, urgency, decreased stream strength and dysuria. No hematuria. No nausea, vomiting, fevers, chills. Has mild bilateral flank pains. No suprapubic pain. Past medical history, appointments, medications, allergies reviewed. 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 Bagley - Colon cancer ([facility]) 06/30/[address] Greenberg, Had extension into the bladder wall and hd a partial cystectomy. - Colostomy care ([facility]) 09/25/2017 - Colostomy in place ([facility]) 09/25/2017 - Coronary artery disease involving [place]ash[place] coronary artery 09/25/[address] 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 and other lower urinary tract symptoms (LUTS) Previous Surgical History PAST SURGICAL HISTORY Procedure Laterality Date - CARPAL TUNNEL Bilateral - CATARACT EXTRACTION HX Right - ECHOCARDIOGRAM 07/05/2017 - LAP REPAIR INTIAL INGUINAL HERNIA 01/11/09 - PAST SURGICAL HISTORY OF 07/03/2017 COLECTOMY ABDOMINAL W/O PROCTECTOMY W/ ILEOSTOMY/ILEOPROCTOSTOMY, TOTAL - REPAIR COMPL ROTATOR CUFF AVULSN,CHR left - REPAIR SLIDING INGUINAL HERNIA LIH - REPAIR UMBILICAL ANNA,5+Y/O,REDUC 01/11/09 - SIGMOIDOSCOPY 06/29/2017 Family History FAMILY HISTORY Problem Relation Age of Onset - Prostate Cancer Father - Cancer Father skin - Heart Mother - Stroke Mother - Diabetes Mother Patient Allergies ALLERGIES No Known Allergies Current Medications Current Outpatient Prescriptions on File Prior to Visit: HYDROcodone-Acetaminophen (NORCO) 10-325 mg per tablet Take 1 tablet by mouth every 6 hours as needed for up to 30 days.Earliest Fill Date: 04/21/18 melatonin 3 mg tablet Take 3 mg by mouth daily at bedtime. calcium carbonate/vitamin D3 (CALCIUM 600 + D,3, ORAL) Take by mouth once daily. homeopathic drugs (PROSTATE ORAL) Take by mouth once daily. omega-3 fatty acids/fish oil (OMEGA 3 FISH OIL ORAL) Take by mouth once daily. [id number] 160 mg iron-1 mg-60 mcg tab Take by mouth once daily. isosorbide mononitrate ER (IMDUR) 60 mg 24 hr tablet Take 1 tablet by mouth once daily. simvastatin (ZOCOR) 40 mg tablet Take 1 tablet by mouth daily at bedtime. atenolol (TENORMIN) 25 mg tablet Take 0.5 tablets by mouth once daily. apixaban (ELIQUIS) 5 mg tab(s) Take 1 tablet by mouth twice daily. gabapentin (NEURONTIN) 300 mg capsule Take 1 capsule by mouth three times daily for 180 days. finasteride (PROSCAR) 5 mg tablet Take 5 mg by mouth once daily. Omeprazole (PRILOSEC) 40 mg capsule Take 1 capsule by mouth once daily. Loperamide HCl (IMODIUM A-D) 2 mg tab Take 2 mg by mouth as needed. tamsulosin ER (FLOMAX) 0.4 mg cp24 Take one(1) capsule daily. COMPOUNDED PRESCRIPTION Colostomy Care Supplies; 1 months worth with 11 refills (fax # [phone])3M Cavilon No-sting Barrier Film Wipes # [id number] Qty 1 box of 50Stomahesive Paste 2 oz tube # [id number] Qty 1 tube COMPOUNDED PRESCRIPTION Colostomy Care Supplies; 1 months worth with 11 refills (fax # [phone])Adapt Oval Convex Ring 7/8 x 1 1/2 # [id number] Qty 1 box 10 eachPremier 1-Piece Soft Convvex Drainable pouch Cut to fit 1-/2 Qty 2 box 5 each ondansetron (ZOFRAN) 8 mg tablet Take 1 tablet by mouth every 8 hours as needed for Nausea/Vomiting. Indications: CANCER CHEMOTHERAPY-INDUCED NAUSEA AND VOMITING No current facility-administered medications on file prior to visit. Social History Social History Marital status: Spouse name: Years of education: Number of children: Social History Main Topics Smoking status: Never Smoker Smokeless tobacco: Current User Types: Chew Alcohol use: Yes Comment: rare Drug use: No Review of Symptoms REVIEW OF SYSTEMS See HPI EXAM: BP 122/60 Pulse 74 Temp 37.4 ?C (99.3 ?F) Resp 16 Wt 80.3 kg (177 lb) BMI 27.72 kg/m? General Appearance: Well appearing, alert, in no acute distress, well-hydrated, well nourished.. Back:positive bilateral CVA tenderness to palpation Lungs: Lungs clear to auscultation. No wheezing, rhonchi, rales. Heart: RRR without murmur, gallop, or rubs. No ectopy. Abdomen: Normal abdominal exam, Abdomen soft, non-tender. Bowel sounds normal. No masses, organomegaly. Health Maintenance List DTAP,TDAP,TD(1 - Tdap) due on 1958 COLORECTAL CANCER SCREENING,SEE MODIFIER due on 1989 ADULT PREVNAR-13 due on 02/08/2004 PNEUMOVAX AGE 65 AND OVER WITH 5YR LOOKBACK(1) due on 02/08/2004 INFLUENZA(1) due on 05/16/2018 STATIN MED ADHERENCE due on 05/16/2018 LDL CHOLESTEROL due on 01/28/2019 ANNUAL PCP TEAM CHRONIC DISEASE VISIT due on 04/02/2019 DIABETES SCREEN due on 01/28/2021 LIPID SCREEN due on 01/28/2023 Data reviewed In office UA Non-hem blood present and Moderate Leuks A/P ASSESSMENT/PLAN: 1. Acute pyelonephritis - ICD9: 590.10, ICD10: N10 (primary diagnosis) Check - UA DIP B/O - URINE CULTURE - because patient would not be able to get antibiotic till tomorrow I advised a dose of IM Rocephin in the office tonight and patient was in agreement. Injection given in right buttocks. Patient tolerated well. Start - SULFAMETHOXAZOLE 800 MG-TRIMETHOPRIM 160 MG TABLET twice ad ay for 10 days 2. Recurrent UTI (urinary tract infection) - ICD9: 599.0, ICD10: N39.0 recurrent - UA positive for mike esterase and hematuria - Patient education for prevention given - UA DIP B/O - URINE CULTURE - Start SULFAMETHOXAZOLE 800 MG-TRIMETHOPRIM 160 MG TABLET - Rocephin as above Signed Prescriptions Disp Refills sulfamethoxazole-trimethoprim (BACTRIM DS) 800-160 mg per tablet 20 tablet 0 Sig: Take 1 tablet by mouth twice daily for 10 days. cefTRIAXone 500 mg intramuscular injection (ROCEPHIN) lidocaine 10 mg/mL (1 %) 10 mg injection (XYLOCAINE) F/u if not improving. Patient was advised if feeling worse needs to go to ER. Vishal Jones MD CNOV Observed: 04/29/2018 Status: COMPLETED Source: [facility] 6:40 PM [facility] REPOSITORY Office Visit (FAMPWS) SAM HAGEN ([id number]) 1940 M Date Time Provider Department 04/29/18 6:40 PM VISHAL JONES During your visit today, we recorded the following information about you: Temperature Pulse Respiration Blood pressure 99.3 degrees 74/minute 16/minute 122/60 Weight 80.3 kg Vishal Jones MD 04/29/2018 8:28 PM Signed Chief Complaint Patient presents with: UTI: burning sensation, frequent urination, weak urination HPI Sam Hagen is a 78 year old male who presents here today for Above Complaints.. Patient was treated for a UTI with cipro 250 mg twice ad ay for 7 days 01/29/2018. After completing antibiotic patient felt better then symptoms returned. He was then seen in the office 04/02/2018 and treated for a UTI with cipro 500 mg twice a day for 10 days, Culture showed sensitivity to Cipro. Seemed to get better but when he completed the script about a week later he developed the symptoms of urine frequency, urgency, decreased stream strength and dysuria. No hematuria. No nausea, vomiting, fevers, chills. Has mild bilateral flank pains. No suprapubic pain. Past medical history, appointments, medications, allergies reviewed. 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 Bagley - Colon cancer ([facility]) 06/30/[address] Greenberg, Had extension into the bladder wall and hd a partial cystectomy. - Colostomy care ([facility]) 09/25/2017 - Colostomy in place ([facility]) 09/25/2017 - Coronary artery disease involving [place] coronary artery 09/25/[address] 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 - Unspecified essential hypertension - 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 and other lower urinary tract symptoms (LUTS) Previous Surgical History PAST SURGICAL HISTORY Procedure Laterality Date - CARPAL TUNNEL Bilateral - CATARACT EXTRACTION HX Right - ECHOCARDIOGRAM 07/05/2017 - LAP REPAIR INTIAL INGUINAL HERNIA 01/11/09 - PAST SURGICAL HISTORY OF 07/03/2017 COLECTOMY ABDOMINAL W/O PROCTECTOMY W/ ILEOSTOMY/ILEOPROCTOSTOMY, TOTAL - REPAIR COMPL ROTATOR CUFF AVULSN,CHR left - REPAIR SLIDING INGUINAL HERNIA LIH - REPAIR UMBILICAL ANNA,5+Y/O,REDUC 01/11/09 - SIGMOIDOSCOPY 06/29/2017 Family History FAMILY HISTORY Problem Relation Age of Onset - Prostate Cancer Father - Cancer Father skin - Heart Mother - Stroke Mother - Diabetes Mother Patient Allergies ALLERGIES No Known Allergies Current Medications Current Outpatient Prescriptions on File Prior to Visit: HYDROcodone-Acetaminophen (NORCO) 10-325 mg per tablet Take 1 tablet by mouth every 6 hours as needed for up to 30 days.Earliest Fill Date: 04/21/18 melatonin 3 mg tablet Take 3 mg by mouth daily at bedtime. calcium carbonate/vitamin D3 (CALCIUM 600 + D,3, ORAL) Take by mouth once daily. homeopathic drugs (PROSTATE ORAL) Take by mouth once daily. omega-3 fatty acids/fish oil (OMEGA 3 FISH OIL ORAL) Take by mouth once daily. [id number]-[id number] 160 mg iron-1 mg-60 mcg tab Take by mouth once daily. isosorbide mononitrate ER (IMDUR) 60 mg 24 hr tablet Take 1 tablet by mouth once daily. simvastatin (ZOCOR) 40 mg tablet Take 1 tablet by mouth daily at bedtime. atenolol (TENORMIN) 25 mg tablet Take 0.5 tablets by mouth once daily. apixaban (ELIQUIS) 5 mg tab(s) Take 1 tablet by mouth twice daily. gabapentin (NEURONTIN) 300 mg capsule Take 1 capsule by mouth three times daily for 180 days. finasteride (PROSCAR) 5 mg tablet Take 5 mg by mouth once daily. Omeprazole (PRILOSEC) 40 mg capsule Take 1 capsule by mouth once daily. Loperamide HCl (IMODIUM A-D) 2 mg tab Take 2 mg by mouth as needed. tamsulosin ER (FLOMAX) 0.4 mg cp24 Take one(1) capsule daily. COMPOUNDED PRESCRIPTION Colostomy Care Supplies; 1 months worth with 11 refills (fax # [phone])3M Cavilon No-sting Barrier Film Wipes # [id number] Qty 1 box of 50Stomahesive Paste 2 oz tube # [id number] Qty 1 tube COMPOUNDED PRESCRIPTION Colostomy Care Supplies; 1 months worth with 11 refills (fax # [phone])Adapt Oval Convex Ring 7/8 x 1 /2 # [id number] Qty 1 box 10 eachPremier 1-Piece Soft Convvex Drainable pouch Cut to fit 1-09/16 Qty 2 box 5 each ondansetron (ZOFRAN) 8 mg tablet Take 1 tablet by mouth every 8 hours as needed for Nausea/Vomiting. Indications: CANCER CHEMOTHERAPY-INDUCED NAUSEA AND VOMITING No current facility-administered medications on file prior to visit. Social History Social History Marital status: Spouse name: Years of education: Number of children: Social History Main Topics Smoking status: Never Smoker Smokeless tobacco: Current User Types: Chew Alcohol use: Yes Comment: rare Drug use: No Review of Symptoms REVIEW OF SYSTEMS See HPI EXAM: BP 122/60 Pulse 74 Temp 37.4 ?C (99.3 ?F) Resp 16 Wt 80.3 kg (177 lb) BMI 27.72 kg/m? General Appearance: Well appearing, alert, in no acute distress, well-hydrated, well nourished.. Back:positive bilateral CVA tenderness to palpation Lungs: Lungs clear to auscultation. No wheezing, rhonchi, rales. Heart: RRR without murmur, gallop, or rubs. No ectopy. Abdomen: Normal abdominal exam, Abdomen soft, non-tender. Bowel sounds normal. No masses, organomegaly. Health Maintenance List DTAP,TDAP,TD(1 - Tdap) due on 1958 COLORECTAL CANCER SCREENING,SEE MODIFIER due on 1989 ADULT PREVNAR-13 due on 02/08/2004 PNEUMOVAX AGE 65 AND OVER WITH 5YR LOOKBACK(1) due on 02/08/2004 INFLUENZA(1) due on 05/16/2018 STATIN MED ADHERENCE due on 05/16/2018 LDL CHOLESTEROL due on 01/28/2019 ANNUAL PCP TEAM CHRONIC DISEASE VISIT due on 04/02/2019 DIABETES SCREEN due on 01/28/2021 LIPID SCREEN due on 01/28/2023 Data reviewed In office UA Non-hem blood present and Moderate Leuks A/P ASSESSMENT/PLAN: 1. Acute pyelonephritis - ICD9: 590.10, ICD10: N10 (primary diagnosis) Check - UA DIP B/O - URINE CULTURE - because patient would not be able to get antibiotic till tomorrow I advised a dose of IM Rocephin in the office tonight and patient was in agreement. Injection given in right buttocks. Patient tolerated well. Start - SULFAMETHOXAZOLE 800 MG-TRIMETHOPRIM 160 MG TABLET twice ad ay for 10 days 2. Recurrent UTI (urinary tract infection) - ICD9: 599.0, ICD10: N39.0 recurrent - UA positive for mike esterase and hematuria - Patient education for prevention given - UA DIP B/O - URINE CULTURE - Start SULFAMETHOXAZOLE 800 MG-TRIMETHOPRIM 160 MG TABLET - Rocephin as above Signed Prescriptions Disp Refills sulfamethoxazole-trimethoprim (BACTRIM DS) 800-160 mg per tablet 20 tablet 0 Sig: Take 1 tablet by mouth twice daily for 10 days. cefTRIAXone 500 mg intramuscular injection (ROCEPHIN) lidocaine 10 mg/mL (1 %) 10 mg injection (XYLOCAINE) F/u if not improving. Patient was advised if feeling worse needs to go to ER. Vishal Jones MD Referring Provider: SELF [200] Allergies As of Date: 04/29/2018 (No Known Allergies) Date Reviewed: 04/29/2018 Reviewed by: Vishal Jones - Fully Assessed Reason for Visit: UTI [116] Cmt: burning sensation, frequent urination, weak urination Primary Visit Diagnosis:Acute pyelonephritis [N10] Other Visit Diagnosis:Recurrent UTI (urinary tract infection) [N39.0] Order(s):UA DIP B/O [[id number]] Order #: [id number] URINE CULTURE [SQURCUL] Order #: [id number] sulfamethoxazole-trimethoprim (BACTRIM DS) 800-160 mg per tabletTake 1 tablet by mouth twice daily for 10 days.Disp: 20 tabletRfl: 0 [] cefTRIAXone 500 mg intramuscular injection (ROCEPHIN)Disp: Rfl: [] lidocaine 10 mg/mL (1 %) 10 mg injection (XYLOCAINE)Disp: Rfl: Prescriptions as of 04/29/2018 Sig: HYDROCODONE 10 MG-ACETAMINOPH* Take 1 tablet by mouth every * MELATONIN 3 MG TABLET Take 3 mg by mouth daily at b* CALCIUM 600 + D(3) ORAL Take by mouth once daily. PROSTATE ORAL Take by mouth once daily. OMEGA 3 FISH OIL ORAL Take by mouth once daily. IRON 160 MG-METHYLFOLATE 1 MG* Take by mouth once daily. ISOSORBIDE MONONITRATE ER 60 * Take 1 tablet by mouth once d* SIMVASTATIN 40 MG TABLET Take 1 tablet by mouth daily * ATENOLOL 25 MG TABLET Take 0.5 tablets by mouth onc* APIXABAN 5 MG TABLET Take 1 tablet by mouth twice * GABAPENTIN 300 MG CAPSULE Take 1 capsule by mouth three* FINASTERIDE 5 MG TABLET Take 5 mg by mouth once daily. OMEPRAZOLE 40 MG CAPSULE,ROHIT* Take 1 capsule by mouth once * LOPERAMIDE 2 MG TABLET Take 2 mg by mouth as needed. SULFAMETHOXAZOLE 800 MG-TRIME* Take 1 tablet by mouth twice * TAMSULOSIN 0.4 MG CAPSULE Take one(1) capsule daily. COMPOUNDED PRESCRIPTION Colostomy Care Supplies; 1 m* COMPOUNDED PRESCRIPTION Colostomy Care Supplies; 1 m* ONDANSETRON HCL 8 MG TABLET Take 1 tablet by mouth every * Problem List As Of Date 04/29/2018 Noted Resolved Bowel obstruction (HCC) [K56.609] INVALID FOR*07/10/2017 Other specified abnormal immunological findings*INVALID FOR* More... Colon cancer (HCC) [C18.9] INVALID FOR* Priority: B More... 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 Arthritis of right hip [M16.11] INVALID FOR* Priority: M Colostomy care ([facility]) [Z43.3] INVALID FOR* Priority: C Colostomy in place ([facility]) [Z93.3] INVALID FOR* Priority: C History of DVT (deep vein thrombosis) [Z86.718] INVALID FOR* Priority: A More... Bladder stone [N21.0] INVALID FOR* Priority: C More... Coronary artery disease involving [place] rivera*INVALID FOR* Priority: A More... H/O heart artery stent [Z95.5] INVALID FOR* Priority: B More... Nerve pain [M79.2] INVALID FOR* Priority: M More... Hyperlipidemia, mixed [E78.2] INVALID FOR* Priority: A Chronic midline back pain [M54.9, G89.29] INVALID FOR* Priority: M Prescriptions ordered this encounter Disp Refills Start End SULFAMETHOXAZOLE 800 MG-TRIMETHOPRIM* 20 t* 0 04/29/2018 05/09/2018 Cmt: Ok to give generic equivalent Route: ORAL Sig: Take 1 tablet by mouth twice daily for 10 days. CEFTRIAXONE 500 MG SOLUTION FOR INJE* 04/29/2018 04/29/2018 Route: INTRAMUSCULA LIDOCAINE 10 MG/ML (1 %) INJECTION S* 04/29/2018 04/29/2018 Route: INTRAMUSCULA Disposition: Return if symptoms worsen or fail to improve. Follow-up and Disposition History Recorded Encounter Status:Closed by VISHAL JONES on 04/29/18 URINALYSIS WITH Collected: 04/02/2018 Status: F Source: [facility] 9:31 AM [facility] REPOSITORY TYPE CODE TESTS RESULT OUT OF RANGE REFERENCE UNITS LAB UCOL Yellow Color Yellow LAB [facility] Clear Clarity Abnormal Cloudy Alert LAB UGLUC Negative mg/dL Glucose, Urine Negative LAB UBIL Negative Bilirubin, Urine Negative LAB UKET Negative Ketones, Urine Negative LAB [facility] 1.005-1.030 Specific [place], Ur 1.015 LAB UHGB Negative Abnormal Hemoglobin/Blood, 2+ Alert Ur LAB UPH 4.5-8.0 pH 5.0 LAB UPROT Negative mg/dL Protein, Abnormal Urine 100 Alert LAB UUROB Normal Urobilinogen Normal LAB UNITR Negative Nitrites Negative LAB ULKEST Negative Leukest Abnormal 3+ Alert LAB UCOM Comments SEE COMMENT Result Comment: N/A LAB UMCOM Urine SEE Shyanne Comment COMMENT Result Comment: N/A LAB UWBC 0-5 /HPF Abnormal Alert WBC >25 LAB URBC 0-3 /HPF Abnormal Alert RBC >25 Performed By: #### UAWMIC #### [facility] [address] [place], [place] [address] Observed: 04/02/2018 Status: F Source: [facility] 9:31 AM [facility] REPOSITORY Sp. Request/Comment: - Specimen received in preservative Culture Result - >=100,000 CFU/ml Klebsiella pneumoniae --> ABNORMAL ALERT ORGANISM: Klebsiella pneumoniae METHOD: Minimum inhibitory concentration(Vitek) Antibiotic Interp SHYANNE Status Ampicillin RESISTANT >=32 F Gentamicin SUSCEPTIBLE <=1 F Trimeth sulfameth SUSCEPTIBLE <=20 F Cefazolin SUSCEPTIBLE <=4 F CLSI breakpoints for therapy of uncomplicated UTI's due to E.coli, K.pneumoniae, and P.mirabilis were applied and may be used to predict the activity of oral agents(cefaclor, cefdinir, cefpodoxime, cefp rozil, cefuroxime, cephalexin, loracarbef). Ciprofloxacin SUSCEPTIBLE <=0.25 F Nitrofurantoin INTERMEDIATE 64 F Cefepime SUSCEPTIBLE <=1 F Piperacillin/Tazobac SUSCEPTIBLE <=4 F Ampicillin Sulbact SUSCEPTIBLE 8 F Ceftriaxone SUSCEPTIBLE <=1 F Meropenem SUSCEPTIBLE <=0.25 F Ertapenem SUSCEPTIBLE <=0.5 F Performed By: #### URCUL #### [facility] [address] [place], [place] [address] PROGRESS Observed: 04/02/2018 Status: COMPLETED Source: [facility] 9:20 AM [facility] REPOSITORY HNO ID: [id number] Author: Janee Stokes Service: (none) Author Type: Nurse Practitioner Type: Progress Notes Filed: 04/02/2018 11:57 AM Note Text: 04/02/2018 Patient presents with: urine frequency: with a burn/sting feeling; with bladder spasms while voiding x1 month SUBJECTIVE: This is a 78 year old that is here today for UTI concern. He states that he has been having urgency and frequency with intermittent bladder spasm and occasional burning with urination for about a month. He feels that he should be able to void more than he does, so he has been cathing himself BID for about a month now as well, but only getting small amounts when he does. Over the last week he has developed right flank pain as well. He follows with Urology and has an appointment in a couple of weeks. He was treated for a UTI last in January. He denies any concerns with his colostomy. Denies seeing blood in urine, but does occasionally have small drop on catheter when he removes it. He denies fever or chills. PAST MEDICAL HISTORY Diagnosis Date - Arthritis of right hip 09/25/2017 - Arthritis, lumbar spine ([facility]) 09/25/2017 - Bladder stone 09/25/[address] Bagley - Colon cancer ([facility]) 06/30/[address] Greenberg, Had extension into the bladder wall and hd a partial cystectomy. - Colostomy care ([facility]) 09/25/2017 - Colostomy in place ([facility]) 09/25/2017 - Coronary artery disease involving ugash[place] coronary artery 09/25/[address] 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 - Unspecified essential hypertension - 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 MEDICATIONS Current Outpatient Prescriptions: HYDROcodone-Acetaminophen (NORCO) 10-325 mg per tablet Take 1 tablet by mouth every 6 hours as needed for up to 30 days.Earliest Fill Date: 03/21/18 tamsulosin ER (FLOMAX) 0.4 mg cp24 Take one(1) capsule daily. melatonin 3 mg tablet Take 3 mg by mouth daily at bedtime. calcium carbonate/vitamin D3 (CALCIUM 600 + D,3, ORAL) Take by mouth once daily. homeopathic drugs (PROSTATE ORAL) Take by mouth once daily. omega-3 fatty acids/fish oil (OMEGA 3 FISH OIL ORAL) Take by mouth once daily. [id number] 160 mg iron-1 mg-60 mcg tab Take by mouth once daily. isosorbide mononitrate ER (IMDUR) 60 mg 24 hr tablet Take 1 tablet by mouth once daily. simvastatin (ZOCOR) 40 mg tablet Take 1 tablet by mouth daily at bedtime. atenolol (TENORMIN) 25 mg tablet Take 0.5 tablets by mouth once daily. gabapentin (NEURONTIN) 300 mg capsule Take 1 capsule by mouth three times daily for 180 days. finasteride (PROSCAR) 5 mg tablet Take 5 mg by mouth once daily. Omeprazole (PRILOSEC) 40 mg capsule Take 1 capsule by mouth once daily. COMPOUNDED PRESCRIPTION Colostomy Care Supplies; 1 months worth with 11 refills (fax # [phone])3M Cavilon No-sting Barrier Film Wipes # [id number] Qty 1 box of 50Stomahesive Paste 2 oz tube # [id number] Qty 1 tube COMPOUNDED PRESCRIPTION Colostomy Care Supplies; 1 months worth with 11 refills (fax # [phone])Adapt Oval Convex Ring 7/8 x 1 1/2 # [id number] Qty 1 box 10 eachPremier 1-Piece Soft Convvex Drainable pouch Cut to fit 1-1/2 Qty 2 box 5 each Loperamide HCl (IMODIUM A-D) 2 mg tab Take 2 mg by mouth as needed. ondansetron (ZOFRAN) 8 mg tablet Take 1 tablet by mouth every 8 hours as needed for Nausea/Vomiting. Indications: CANCER CHEMOTHERAPY-INDUCED NAUSEA AND VOMITING apixaban (ELIQUIS) 5 mg tab(s) Take 1 tablet by mouth twice daily. (Patient not taking: Reported on 04/02/2018 ) No current facility-administered medications for this visit. Medications and allergies reviewed by this provider. SOCIAL HISTORY Social History Marital status: Spouse name: Years of education: Number of children: Social History Main Topics Smoking status: Never Smoker Smokeless tobacco: Current User Types: Chew Alcohol use: Yes Comment: rare Drug use: No REVIEW OF SYSTEMS see HPI OBJECTIVE: BP 118/64 (BP Site: Left Arm, BP Position: Sitting, BP Cuff Size: Regular Adult) Pulse 69 Temp 36.9 ?C (98.5 ?F) (Right Tympanic) Resp 20 Wt 81.7 kg (180 lb 1.9 oz) SpO2 98% BMI 28.21 kg/m? . Vital signs reviewed by this provider. PHYSICAL EXAMINATION: General appearance: Well appearing, alert, in no acute distress, well-hydrated, well nourished. Skin: Skin color, texture, turgor normal, no suspicious rashes or lesions Lungs: Lungs clear to auscultation. No wheezing, rhonchi, rales Heart: RRR without murmur, gallop, or rubs. No ectopy Abdomen: Abdomen soft, non-tender. Bowel sounds normal. No masses, organomegaly, Positive CVA tenderness on Right Extremities: No deformities, edema, skin discoloration, clubbing or cyanosis. Good capillary refill. , Pulses: 2+ ASSESSMENT/PLAN: 1. Urinary tract infection with hematuria, site unspecified - ICD9: 599.0, ICD10: N39.0, R31.9 acute - UA positive for mike esterase, hematuria and proteinuria - Send urine for culture - Begin treatment with Ciprofloxacin 500 mg BID for 10 days - Patient education for prevention given - UA DIP B/O - URINALYSIS WITH MICROSCOPIC - URINE CULTURE - CIPROFLOXACIN 500 MG TABLET - follow up with urology as planned Janee Stokes APRN.JENNIFER CNOV Observed: 04/02/2018 Status: COMPLETED Source: [facility] 9:00 AM [facility] REPOSITORY Office Visit (FAMPWS) SAM HAGEN ([id number]) 1940 M Date Time Provider Department 04/02/18 9:00 AM JANEE STOKES (JENNIFER) FAMPWS During your visit today, we recorded the following information about you: Temperature Pulse Respiration Blood pressure 98.5 degrees 69/minute 20/minute 118/64 Weight 81.7 kg Janee StokesSAKINA.TOUCH UP WORKER 04/02/2018 11:57 AM Signed 04/02/2018 Patient presents with: urine frequency: with a burn/sting feeling; with bladder spasms while voiding x1 month SUBJECTIVE: This is a 78 year old that is here today for UTI concern. He states that he has been having urgency and frequency with intermittent bladder spasm and occasional burning with urination for about a month. He feels that he should be able to void more than he does, so he has been cathing himself BID for about a month now as well, but only getting small amounts when he does. Over the last week he has developed right flank pain as well. He follows with Urology and has an appointment in a couple of weeks. He was treated for a UTI last in January. He denies any concerns with his colostomy. Denies seeing blood in urine, but does occasionally have small drop on catheter when he removes it. He denies fever or chills. PAST MEDICAL HISTORY Diagnosis Date - Arthritis of right hip 09/25/2017 - Arthritis, lumbar spine ([facility]) 09/25/2017 - Bladder stone 09/25/[address] Bagley - Colon cancer ([facility]) 06/30/[address] Greenberg, Had extension into the bladder wall and hd a partial cystectomy. - Colostomy care ([facility]) 09/25/2017 - Colostomy in place ([facility]) 09/25/2017 - Coronary artery disease involving [place] coronary artery 09/25/[address] 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 - Unspecified essential hypertension - 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 MEDICATIONS Current Outpatient Prescriptions: HYDROcodone-Acetaminophen (NORCO) 10-325 mg per tablet Take 1 tablet by mouth every 6 hours as needed for up to 30 days.Earliest Fill Date: 03/21/18 tamsulosin ER (FLOMAX) 0.4 mg cp24 Take one(1) capsule daily. melatonin 3 mg tablet Take 3 mg by mouth daily at bedtime. calcium carbonate/vitamin D3 (CALCIUM 600 + D,3, ORAL) Take by mouth once daily. homeopathic drugs (PROSTATE ORAL) Take by mouth once daily. omega-3 fatty acids/fish oil (OMEGA 3 FISH OIL ORAL) Take by mouth once daily. [id number]-[id number] 160 mg iron-1 mg-60 mcg tab Take by mouth once daily. isosorbide mononitrate ER (IMDUR) 60 mg 24 hr tablet Take 1 tablet by mouth once daily. simvastatin (ZOCOR) 40 mg tablet Take 1 tablet by mouth daily at bedtime. atenolol (TENORMIN) 25 mg tablet Take 0.5 tablets by mouth once daily. gabapentin (NEURONTIN) 300 mg capsule Take 1 capsule by mouth three times daily for 180 days. finasteride (PROSCAR) 5 mg tablet Take 5 mg by mouth once daily. Omeprazole (PRILOSEC) 40 mg capsule Take 1 capsule by mouth once daily. COMPOUNDED PRESCRIPTION Colostomy Care Supplies; 1 months worth with 11 refills (fax # [phone])3M Cavilon No-sting Barrier Film Wipes # [id number] Qty 1 box of 50Stomahesive Paste 2 oz tube # [id number] Qty 1 tube COMPOUNDED PRESCRIPTION Colostomy Care Supplies; 1 months worth with 11 refills (fax # [phone])Adapt Oval Convex Ring 7/8 x 1 1/2 # [id number] Qty 1 box 10 eachPremier 1-Piece Soft Convvex Drainable pouch Cut to fit 1-/ Qty 2 box 5 each Loperamide HCl (IMODIUM A-D) 2 mg tab Take 2 mg by mouth as needed. ondansetron (ZOFRAN) 8 mg tablet Take 1 tablet by mouth every 8 hours as needed for Nausea/Vomiting. Indications: CANCER CHEMOTHERAPY-INDUCED NAUSEA AND VOMITING apixaban (ELIQUIS) 5 mg tab(s) Take 1 tablet by mouth twice daily. (Patient not taking: Reported on 04/02/2018 ) No current facility-administered medications for this visit. Medications and allergies reviewed by this provider. SOCIAL HISTORY Social History Marital status: Spouse name: Years of education: Number of children: Social History Main Topics Smoking status: Never Smoker Smokeless tobacco: Current User Types: Chew Alcohol use: Yes Comment: rare Drug use: No REVIEW OF SYSTEMS see HPI OBJECTIVE: BP 118/64 (BP Site: Left Arm, BP Position: Sitting, BP Cuff Size: Regular Adult) Pulse 69 Temp 36.9 ?C (98.5 ?F) (Right Tympanic) Resp 20 Wt 81.7 kg (180 lb 1.9 oz) SpO2 98% BMI 28.21 kg/m? . Vital signs reviewed by this provider. PHYSICAL EXAMINATION: General appearance: Well appearing, alert, in no acute distress, well-hydrated, well nourished. Skin: Skin color, texture, turgor normal, no suspicious rashes or lesions Lungs: Lungs clear to auscultation. No wheezing, rhonchi, rales Heart: RRR without murmur, gallop, or rubs. No ectopy Abdomen: Abdomen soft, non-tender. Bowel sounds normal. No masses, organomegaly, Positive CVA tenderness on Right Extremities: No deformities, edema, skin discoloration, clubbing or cyanosis. Good capillary refill. , Pulses: 2+ ASSESSMENT/PLAN: 1. Urinary tract infection with hematuria, site unspecified - ICD9: 599.0, ICD10: N39.0, R31.9 acute - UA positive for mike esterase, hematuria and proteinuria - Send urine for culture - Begin treatment with Ciprofloxacin 500 mg BID for 10 days - Patient education for prevention given - UA DIP B/O - URINALYSIS WITH MICROSCOPIC - URINE CULTURE - CIPROFLOXACIN 500 MG TABLET - follow up with urology as planned Janee Stokes APRN.TOUCH UP WORKER Referring Provider: VISHAL JONES [[id number]] Allergies As of Date: 04/02/2018 (No Known Allergies) Date Reviewed: 04/02/2018 Reviewed by: Madisyn Arreguin Ma - Fully Assessed Reason for Visit: urine frequency [Other] Cmt: with a burn/sting feeling; with bladder spasms while voiding x1 month Reason For Visit History Recorded Primary Visit Diagnosis:Urinary tract infection with hematuria, site unspecified [N39.0, R31.9] Order(s):UA DIP B/O [7693284] Order #: [id number] URINALYSIS WITH MICROSCOPIC [SQUAWMIC] Order #: [id number] FUTURE URINE CULTURE [SQURCUL] Order #: [id number]. #:[id number] ciprofloxacin HCl (CIPRO) 500 mg tabletTake 1 tablet by mouth twice daily for 10 days.Disp: 20 tabletRfl: 0 Prescriptions as of 04/02/2018 Sig: HYDROCODONE 10 MG-ACETAMINOPH* Take 1 tablet by mouth every * TAMSULOSIN 0.4 MG CAPSULE Take one(1) capsule daily. MELATONIN 3 MG TABLET Take 3 mg by mouth daily at b* CALCIUM 600 + D(3) ORAL Take by mouth once daily. PROSTATE ORAL Take by mouth once daily. OMEGA 3 FISH OIL ORAL Take by mouth once daily. IRON 160 MG-METHYLFOLATE 1 MG* Take by mouth once daily. ISOSORBIDE MONONITRATE ER 60 * Take 1 tablet by mouth once d* SIMVASTATIN 40 MG TABLET Take 1 tablet by mouth daily * ATENOLOL 25 MG TABLET Take 0.5 tablets by mouth onc* GABAPENTIN 300 MG CAPSULE Take 1 capsule by mouth three* FINASTERIDE 5 MG TABLET Take 5 mg by mouth once daily. OMEPRAZOLE 40 MG CAPSULE,ROHIT* Take 1 capsule by mouth once * COMPOUNDED PRESCRIPTION Colostomy Care Supplies; 1 m* COMPOUNDED PRESCRIPTION Colostomy Care Supplies; 1 m* LOPERAMIDE 2 MG TABLET Take 2 mg by mouth as needed. ONDANSETRON HCL 8 MG TABLET Take 1 tablet by mouth every * CIPROFLOXACIN 500 MG TABLET Take 1 tablet by mouth twice * APIXABAN 5 MG TABLET Take 1 tablet by mouth twice * Patient not taking: Reported on 04/02/2018 Problem List As Of Date 04/02/2018 Noted Resolved Bowel obstruction (HCC) [K56.609] INVALID FOR*07/10/2017 Other specified abnormal immunological findings*INVALID FOR* More... Colon cancer (HCC) [C18.9] INVALID FOR* Priority: B More... 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 Arthritis of right hip [M16.11] INVALID FOR* Priority: M Colostomy care (HCC) [Z43.3] INVALID FOR* Priority: C Colostomy in place ([facility]) [Z93.3] INVALID FOR* Priority: C History of DVT (deep vein thrombosis) [Z86.718] INVALID FOR* Priority: A More... Bladder stone [N21.0] INVALID FOR* Priority: C More... Coronary artery disease involving [place] river[place]*INVALID FOR* Priority: A More... H/O heart artery stent [Z95.5] INVALID FOR* Priority: B More... Nerve pain [M79.2] INVALID FOR* Priority: M More... Hyperlipidemia, mixed [E78.2] INVALID FOR* Priority: A Chronic midline back pain [M54.9, G89.29] INVALID FOR* Priority: M Prescriptions ordered this encounter Disp Refills Start End CIPROFLOXACIN 500 MG TABLET 20 t* 0 04/02/2018 04/12/2018 Route: ORAL Sig: Take 1 tablet by mouth twice daily for 10 days. Encounter Status:Closed by JANEE STOKES on 04/02/18 PROGRESS Observed: 02/26/2018 Status: COMPLETED Source: [facility] 8:52 AM [facility] REPOSITORY HNO ID: [id number] Author: Clement Werner Service: (none) Author Type: Physician Type: Progress Notes Filed: 02/27/2018 9:30 AM Note Text: Radiation Oncology - New Patient/Consult Note PATIENT NAME: Sam Hagen PATIENT REQUESTING PROVIDER: Tameka Marshall APRN.CNP DIAGNOSIS: Stage IIIC multifocal colon adenocarcinoma (T4aN1 ascending colon, T4bN1 sigmoid colon) s/p total colectomy, end ileostomy and partial cystectomy on 07/03/2017 and then adjuvant chemotherapy. HPI: 78 year old male who presents with above diagnosis, for an opinion regarding the role of radiation therapy in the management of the patient's disease. Final recommendations will be communicated back to the requesting physician by way of the shared medical record, or letter to requesting physician via [place] mail. 78 year old man with history of prostate cancer diagnosed in 2005 with Flaquita score 6 (3+3), PSA 12 and clinical stage T2b treated with definitive radiation treatment with IMRT to 79.2 Gy in 44 fractions under the care of Dr. Merlin Canas. PSA on 07/06/17 was 0.37 ng/ml. He presented with symptoms of bowel obstruction last June. He had two week history of abdominal pain, bloating and nausea and cramps at that time. CT scan of the abdomen/pelvis on 06/28/17 showed obstructing mass of the distal sigmoid measuring about 3.5 cm with moderate to severe proximal colonic distension. Biopsy of the sigmoid colon mass on 07/02/17 showed moderately differentiated adenocarcinoma. He underwent total colectomy and end ileostomy and partial cystectomy on 07/03/2017. Pathology showed two foci of colon adenocarcinoma. There was invasive moderately differentiated adenocarcinoma in the ascending colon with penetration to the visceral peritoneum. Surgical margin was negative. 1 node was positive for metastasis. There was positive perineural invasion and LVI. There was also moderately differentiated adenocarcinoma of the sigmoid colon measuring 3 cm with focal invasion to the bladder. There was macroscopic tumor perforation. There was positive LVI. 1/9 nodes was positive for metastasis. Surgical margin appears to be negative. CT chest/abdomen/pelvis and bone scan on 07/08/17 were negative for any definite evidence of metastasis. He underwent adjuvant chemotherapy with infusional 5FU/leucovorin. He had 12 cycles and finished on 01/22/18. CT abdomen/pelvis on 02/17/18 showed no metastasis. CEA on 01/28/18 was 1.2ng/ml. ALLERGIES No Known Allergies PAST MEDICAL HISTORY Diagnosis Date - Arthritis of right hip 09/25/2017 - Arthritis, lumbar spine (HCC) 09/25/2017 - Bladder stone 09/25/[address] Bagley - Colon cancer (HCC) 06/30/[address] Greenberg, Had extension into the bladder wall and hd a partial cystectomy. - Colostomy care ([facility]) 09/25/2017 - Colostomy in place ([facility]) 09/25/2017 - Coronary artery disease involving [place] coronary artery 09/25/[address] 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 PAST SURGICAL HISTORY Procedure Laterality Date - CARPAL TUNNEL Bilateral - CATARACT EXTRACTION HX Right - ECHOCARDIOGRAM 07/05/2017 - LAP REPAIR INTIAL INGUINAL HERNIA 01/11/09 - PAST SURGICAL HISTORY OF 07/03/2017 COLECTOMY ABDOMINAL W/O PROCTECTOMY W/ ILEOSTOMY/ILEOPROCTOSTOMY, TOTAL - REPAIR COMPL ROTATOR CUFF AVULSN,CHR left - REPAIR SLIDING INGUINAL HERNIA LIH - REPAIR UMBILICAL ANNA,5+Y/O,REDUC 01/11/09 - SIGMOIDOSCOPY 06/29/2017 FAMILY HISTORY Problem Relation Age of Onset - Prostate Cancer Father - Cancer Father skin - Heart Mother - Stroke Mother - Diabetes Mother Social History Marital status: Spouse name: Years of education: Number of children: Social History Main Topics Smoking status: Never Smoker Smokeless tobacco: Current User Types: Chew Alcohol use: Yes Comment: rare Drug use: No COMPLETE REVIEW OF SYSTEMS: GENERAL: night sweats. HEENT: Negative for sudden vision or hearing changes. NECK: Negative for masses in the neck. RESPIRATORY: Negative for cough or shortness of breath. CARDIAC: Negative for chest pain, palpitations, murmurs, or syncopal episodes. GI: ileostomy working well. : chronic urinary frequency. MUSCULOSKELETAL: h/o arthritis. NEURO: Negative for dizziness, headache, weakness or numbness. HEMATOLOGIC: easy bruising. SKIN: Negative for rashes or other skin changes. PHYSICAL EXAM: VS: BP 113/55 (BP Site: Right Arm, BP Position: Sitting, BP Cuff Size: Regular Adult) Pulse 61 Temp 36.3 ?C (97.3 ?F) (Temporal Artery) Resp 20 Wt 80.7 kg (178 lb) SpO2 96% BMI 27.88 kg/m? KPS: 90 General Appearance: Alert and oriented. No acute distress. HEENT: NCAT. Sclera anicteric. EOMI. Neck: Normal ROM. Chest: No respiratory distress. Lungs clear to auscultation bilaterally. Heart: Regular rate and rhythm. Abdomen: Soft. Nontender. Nondistended. Ileostomy. Musculoskeletal: No edema. Normal ROM in extremities. Neuro: No gross focal deficits. Skin: No rashes noted Lymphatics: No palpable cervical or supraclavicular adenopathy. RADIOLOGY/LABORATORY DATA: see HPI ASSESSMENT AND PLAN: 78 year old man with Stage IIIC multifocal colon adenocarcinoma (T4aN1 ascending colon, T4bN1 sigmoid colon) s/p total colectomy, end ileostomy and partial cystectomy on 07/03/2017 and then adjuvant chemotherapy. He has disease extending to the bladder focally. It was resected with negative surgical margin. Radiation treatment can be considered to improve local control. However, he had previous radiation treatment to the prostate for prostate cancer in 2006. Mean dose to the bladder at that time was 50.50Gy and max dose was 84.54Gy. Additional 45 Gy to 50.4 Gy radiation treatment to this area will have risks of bladder complications and possible soft tissue necrosis. Considering potential risks over potential benefits, I do not recommend radiation treatment. He expressed understandings of the above. He plans to continue follow-up care with Dr. Greenberg. I will see him as needed. Signed by: Clement Werner MD cc: Vishal Jones MD [id number] [facility] [place] [address] Tameka Marshall APRN.TOUCH UP WORKER [address] [facility] [id number] Sam Greenberg DO [address] [facility] [address] CNOV Observed: 02/25/2018 Status: COMPLETED Source: [facility] 9:30 AM [facility] REPOSITORY Office Visit (RADTWS) SAM HAGEN ([id number]) 1940 M Date Time Provider Department 02/25/18 9:30 AM CLEMENT WERNER During your visit today, we recorded the following information about you: Temperature Pulse Respiration Blood pressure 97.3 degrees 61/minute 20/minute 113/55 Weight 80.7 kg Nikole Lamb RN, RN 02/25/2018 9:34 AM Signed Radiation Therapy - Nursing Note (Consult) PATIENT NAME: Sam Hagen PATIENT February 25, 2018 [facility] FACILITY/LOCATION: [place] Chief Complaint: consult Reason for visit: Consult. Referring physician: Internal provider Catalina Marshall MOLD RUNNER/ Dr Greenberg Subjective Data: No c/o. Additional Data Do you want to see a Flour Distributor? No Are you interested in information about fertility? No Sexual Activity: Male: N/A Stress Scale: On a scale of 0 to 10, what number best describes how much distress you have experienced in the past week?(0 being no distress and 10 being extreme distress) 0 Social work notified: Pt denied need to see administrator social welfare at this time. Radiation therapy teaching initiated. [facility] external beam radiation therapy handout given. Department phone numbers given AND patient encouraged to verbalize questions. SIGNED by: DIXIE Black MD 02/27/2018 9:30 AM Signed Radiation Oncology - New Patient/Consult Note PATIENT NAME: Sam Hagen PATIENT REQUESTING PROVIDER: Tameka Marshall APRN.CNP DIAGNOSIS: Stage IIIC multifocal colon adenocarcinoma (T4aN1 ascending colon, T4bN1 sigmoid colon) s/p total colectomy, end ileostomy and partial cystectomy on 07/03/2017 and then adjuvant chemotherapy. HPI: 78 year old male who presents with above diagnosis, for an opinion regarding the role of radiation therapy in the management of the patient's disease. Final recommendations will be communicated back to the requesting physician by way of the shared medical record, or letter to requesting physician via US mail. 78 year old man with history of prostate cancer diagnosed in 2005 with Flaquita score 6 (3+3), PSA 12 and clinical stage T2b treated with definitive radiation treatment with IMRT to 79.2 Gy in 44 fractions under the care of Dr. Merlin Canas. PSA on 07/06/17 was 0.37 ng/ml. He presented with symptoms of bowel obstruction last June. He had two week history of abdominal pain, bloating and nausea and cramps at that time. CT scan of the abdomen/pelvis on 06/28/17 showed obstructing mass of the distal sigmoid measuring about 3.5 cm with moderate to severe proximal colonic distension. Biopsy of the sigmoid colon mass on 07/02/17 showed moderately differentiated adenocarcinoma. He underwent total colectomy and end ileostomy and partial cystectomy on 07/03/2017. Pathology showed two foci of colon adenocarcinoma. There was invasive moderately differentiated adenocarcinoma in the ascending colon with penetration to the visceral peritoneum. Surgical margin was negative. 09/27 node was positive for metastasis. There was positive perineural invasion and LVI. There was also moderately differentiated adenocarcinoma of the sigmoid colon measuring 3 cm with focal invasion to the bladder. There was macroscopic tumor perforation. There was positive LVI. 1/ nodes was positive for metastasis. Surgical margin appears to be negative. CT chest/abdomen/pelvis and bone scan on 07/08/17 were negative for any definite evidence of metastasis. He underwent adjuvant chemotherapy with infusional 5FU/leucovorin. He had 12 cycles and finished on 01/22/18. CT abdomen/pelvis on 02/17/18 showed no metastasis. CEA on 01/28/18 was 1.2ng/ml. ALLERGIES No Known Allergies PAST MEDICAL HISTORY Diagnosis Date - Arthritis of right hip 09/25/2017 - Arthritis, lumbar spine (HCC) 09/25/2017 - Bladder stone 09/25/[address] Bagley - Colon cancer ([facility]) 06/30/[address] Greenberg, Had extension into the bladder wall and hd a partial cystectomy. - Colostomy care ([facility]) 09/25/2017 - Colostomy in place ([facility]) 09/25/2017 - Coronary artery disease involving ugashik coronary artery 09/25/[address] 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 PAST SURGICAL HISTORY Procedure Laterality Date - CARPAL TUNNEL Bilateral - CATARACT EXTRACTION HX Right - ECHOCARDIOGRAM 07/05/2017 - LAP REPAIR INTIAL INGUINAL HERNIA 01/11/09 - PAST SURGICAL HISTORY OF 07/03/2017 COLECTOMY ABDOMINAL W/O PROCTECTOMY W/ ILEOSTOMY/ILEOPROCTOSTOMY, TOTAL - REPAIR COMPL ROTATOR CUFF AVULSN,CHR left - REPAIR SLIDING INGUINAL HERNIA LIH - REPAIR UMBILICAL ANNA,5+Y/O,REDUC 01/11/09 - SIGMOIDOSCOPY 06/29/2017 FAMILY HISTORY Problem Relation Age of Onset - Prostate Cancer Father - Cancer Father skin - Heart Mother - Stroke Mother - Diabetes Mother Social History Marital status: Spouse name: Years of education: Number of children: Social History Main Topics Smoking status: Never Smoker Smokeless tobacco: Current User Types: Chew Alcohol use: Yes Comment: rare Drug use: No COMPLETE REVIEW OF SYSTEMS: GENERAL: night sweats. HEENT: Negative for sudden vision or hearing changes. NECK: Negative for masses in the neck. RESPIRATORY: Negative for cough or shortness of breath. CARDIAC: Negative for chest pain, palpitations, murmurs, or syncopal episodes. GI: ileostomy working well. : chronic urinary frequency. MUSCULOSKELETAL: h/o arthritis. NEURO: Negative for dizziness, headache, weakness or numbness. HEMATOLOGIC: easy bruising. SKIN: Negative for rashes or other skin changes. PHYSICAL EXAM: VS: BP 113/55 (BP Site: Right Arm, BP Position: Sitting, BP Cuff Size: Regular Adult) Pulse 61 Temp 36.3 ?C (97.3 ?F) (Temporal Artery) Resp 20 Wt 80.7 kg (178 lb) SpO2 96% BMI 27.88 kg/m? KPS: 90 General Appearance: Alert and oriented. No acute distress. HEENT: NCAT. Sclera anicteric. EOMI. Neck: Normal ROM. Chest: No respiratory distress. Lungs clear to auscultation bilaterally. Heart: Regular rate and rhythm. Abdomen: Soft. Nontender. Nondistended. Ileostomy. Musculoskeletal: No edema. Normal ROM in extremities. Neuro: No gross focal deficits. Skin: No rashes noted Lymphatics: No palpable cervical or supraclavicular adenopathy. RADIOLOGY/LABORATORY DATA: see HPI ASSESSMENT AND PLAN: 78 year old man with Stage IIIC multifocal colon adenocarcinoma (T4aN1 ascending colon, T4bN1 sigmoid colon) s/p total colectomy, end ileostomy and partial cystectomy on 07/03/2017 and then adjuvant chemotherapy. He has disease extending to the bladder focally. It was resected with negative surgical margin. Radiation treatment can be considered to improve local control. However, he had previous radiation treatment to the prostate for prostate cancer in 2006. Mean dose to the bladder at that time was 50.50Gy and max dose was 84.54Gy. Additional 45 Gy to 50.4 Gy radiation treatment to this area will have risks of bladder complications and possible soft tissue necrosis. Considering potential risks over potential benefits, I do not recommend radiation treatment. He expressed understandings of the above. He plans to continue follow-up care with Dr. Greenberg. I will see him as needed. Signed by: Clement Werner MD cc: Vishal Jones MD [id number] [place] [address] Tameka Marshall APRN.TOUCH UP WORKER [address] [facility] [address] Sam Greenberg DO [address] [facility] [address] Referring Provider: TAMEKA MARSHALL ([facility]) [[id number]] Allergies As of Date: 02/25/2018 (No Known Allergies) Date Reviewed: 02/25/2018 Reviewed by: Nikole (Rn) DIXIE Lamb - Fully Assessed Reason for Visit: Consult [502] Primary Visit Diagnosis:Malignant neoplasm of sigmoid colon (HCC) [C18.7] Prescriptions as of 02/25/2018 Sig: HYDROCODONE 10 MG-ACETAMINOPH* Take 1 tablet by mouth every * TAMSULOSIN 0.4 MG CAPSULE Take one(1) capsule daily. MELATONIN 3 MG TABLET Take 3 mg by mouth daily at b* CALCIUM 600 + D(3) ORAL Take by mouth once daily. PROSTATE ORAL Take by mouth once daily. OMEGA 3 FISH OIL ORAL Take by mouth once daily. IRON 160 MG-METHYLFOLATE 1 MG* Take by mouth once daily. ISOSORBIDE MONONITRATE ER 60 * Take 1 tablet by mouth once d* SIMVASTATIN 40 MG TABLET Take 1 tablet by mouth daily * ATENOLOL 25 MG TABLET Take 0.5 tablets by mouth onc* APIXABAN 5 MG TABLET Take 1 tablet by mouth twice * GABAPENTIN 300 MG CAPSULE Take 1 capsule by mouth three* FINASTERIDE 5 MG TABLET Take 5 mg by mouth once daily. OMEPRAZOLE 40 MG CAPSULE,ROHIT* Take 1 capsule by mouth once * COMPOUNDED PRESCRIPTION Colostomy Care Supplies; 1 m* COMPOUNDED PRESCRIPTION Colostomy Care Supplies; 1 m* LOPERAMIDE 2 MG TABLET Take 2 mg by mouth as needed. ONDANSETRON HCL 8 MG TABLET Take 1 tablet by mouth every * Problem List As Of Date 02/25/2018 Noted Resolved Bowel obstruction (HCC) [K56.609] INVALID FOR*07/10/2017 Other specified abnormal immunological findings*INVALID FOR* More... Colon cancer (HCC) [C18.9] INVALID FOR* Priority: B More... 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 Arthritis of right hip [M16.11] INVALID FOR* Priority: M Colostomy care (HCC) [Z43.3] INVALID FOR* Priority: C Colostomy in place (HCC) [Z93.3] INVALID FOR* Priority: C History of DVT (deep vein thrombosis) [Z86.718] INVALID FOR* Priority: A More... Bladder stone [N21.0] INVALID FOR* Priority: C More... Coronary artery disease involving ugashik rivera*INVALID FOR* Priority: A More... H/O heart artery stent [Z95.5] INVALID FOR* Priority: B More... Nerve pain [M79.2] INVALID FOR* Priority: M More... Hyperlipidemia, mixed [E78.2] INVALID FOR* Priority: A Chronic midline back pain [M54.9, G89.29] INVALID FOR* Priority: M Visit Notes: >> Nikole (Dixie) DIXIE Lamb FriFeb 25, 2018 9:33 AM Status: Signed Radiation Therapy - Nursing Note (Consult) PATIENT NAME: Sam Hagen PATIENT February 25, 2018 [facility] FACILITY/LOCATION: [place] Chief Complaint: consult Reason for visit: Consult. Referring physician: Internal provider Catalina Marshall NP/ Dr Greenberg Subjective Data: No c/o. Additional Data Do you want to see a Flour Distributor? No Are you interested in information about fertility? No Sexual Activity: Male: N/A Stress Scale: On a scale of 0 to 10, what number best describes how much distress you have experienced in the past week?(0 being no distress and 10 being extreme distress) 0 Social work notified: Pt denied need to see administrator social welfare at this time. Radiation therapy teaching initiated. [facility] external beam radiation therapy handout given. Department phone numbers given AND patient encouraged to verbalize questions. SIGNED by: Nikole Lamb RN Encounter Status:Closed by CLEMENT WERNER MD on 02/27/18 PROGRESS Observed: 02/17/2018 Status: COMPLETED Source: [place] 9:42 AM [facility] REPOSITORY O ID: [id number] Author: Leigh Hoffman Ct Service: (none) Author Type: (none) Type: Progress Notes Filed: 02/17/2018 9:42 AM Note Text: Radiology Service Progress Note PATIENT NAME: Sam Hagen DATE OF SERVICE: February 17, 2018 TIME: 9:42 AM PATIENT IDENTITY VERIFICATION COMPLETED USING TWO (2) METHODS: Patient confirmed name verbally and Date of . PATIENT GENDER DATA: Male PATIENT RELEVANT IMPLANT DATA REVIEWED: Not Applicable CONTRAST INDUCED NEPHROPATHY RISK FACTORS: Patient age > 60 years CREATININE: Creatinine Date Value Ref Range Status 01/28/2018 0.99 0.73 - 1.22 mg/dL Final 11/17/2017 0.98 0.73 - 1.22 mg/dL Final 11/04/2017 1.01 0.73 - 1.22 mg/dL Final Creatinine, Whole Blood (iSTAT) Date Value Ref Range Status 01/20/2018 0.90 0.70 - 1.40 mg/dL Final 01/02/2018 1.10 0.70 - 1.40 mg/dL Final 12/15/2017 1.00 0.70 - 1.40 mg/dL Final eGFR-All Other Races Date Value Ref Range Status 01/28/2018 >60 . Final Comment: eGFR (Estimated GFR) Units of measure: mL/min/1.73 meters squared eGFR is derived from the reexpressed MDRD Study equation using the following parameters: serum creatinine, age, gender and race. The creatinine assay has been calibrated to be traceable to IDMS. An eGFR <60 mL/min/1.73m2 for >3 months is consistent with chronic kidney disease. Refer to KDOQI guidelines for clinical interpretation. In patients with unstable renal function, e.g. those with acute kidney injury, the eGFR may not accurately reflect actual GFR. eGFR- Date Value Ref Range Status 01/28/2018 >60 Final P.O.C.T. RESULTS: POC done: Yes, See Lab Tab February 17, 2018 RADIOLOGIST NOTIFIED?: No ALLERGIES: Reviewed and unchanged CONTRAST ALLERGY: NO. PERIPHERAL IV ACCESS: power port accessed by hemoc RADIOLOGY DEPARTMENT: CT; Exam(s) Completed: Abdomen/Pelvis SIGNED BY: Leigh Hoffman Ct February 17, 2018 9:[address] ABD/PEL W IVCON Observed: 02/17/2018 Status: F Source: [place] 9:42 AM [facility] REPOSITORY * * *Final Report* * * DATE OF EXAM: Feb 17 2018 9:42AM [facility] 0530 - CT ABD/PEL W IVCON / PROCEDURE REASON: Malignant neoplasm of ascending colon * * * * Physician Interpretation * * * * EXAMINATION: CT ABDOMEN AND PELVIS WITH IV CONTRAST CLINICAL HISTORY: Colon cancer and prostate cancer , staging TECHNIQUE: CT of the abdomen and pelvis was performed using standard technique, scanning from just above the dome of the diaphragm to the symphysis pubis. MQ: CTAP_3 Contrast: Other: 145 ml of Omnipaque 300 Oral: 50 ml of 50ML Omnipaque [address] Radiation dose: Integrated Dose-length product (DLP) for this visit = 549 mGy*cm. CT Dose Reduction Employed: Automated exposure control (AEC) COMPARISON: None. RESULT: Liver: No mass. Mild diffuse decreased attenuation consistent with steatosis. Scattered granulomatous calcifications. Biliary: No bile duct dilation. Gallbladder is unremarkable. Spleen: No mass. No splenomegaly. Multiple granulomatous calcifications. Pancreas: No mass or duct dilation. Adrenals: No mass. Kidneys: 3 mm LEFT lower pole nonobstructing calculus. Small cyst in each kidney, as well as bilateral subcentimeter lesions which are too small to characterize but likely benign. No hydronephrosis. GI tract: No dilation or wall thickening. Left lower quadrant end ileostomy with small parastomal hernia. Rectal stump in the pelvis. Lymph nodes: No abdominal or pelvic lymphadenopathy. Mesentery/Peritoneum: No ascites or mass. Small midline ventral hernia above the level of the umbilicus containing unobstructed small bowel. Retroperitoneum: No mass. Vasculature: The celiac axis and SMA are patent. The portal vein and branches, splenic vein, SMV, and hepatic veins are patent. There is calcification of the aorta and iliac arteries, without aneurysm. Pelvis: No mass, ascites or fluid collection. Prostate mildly enlarged. Normal bladder wall thickness. Bones/Soft Tissues: Degenerative changes in the spine. No neoplastic bone disease.. Healed fracture RIGHT pubic ramus. Ill-defined sclerotic lesion in the LEFT iliac wing (3:89), appears benign Lower thorax: The lower thorax is unremarkable. IMPRESSION: NO METASTATIC DISEASE IN THE ABDOMEN OR PELVIS HEPATIC STEATOSIS SMALL MIDLINE VENTRAL HERNIA CONTAINING UNOBSTRUCTED SMALL BOWEL 3 MM LEFT LOWER POLE NONOBSTRUCTING CALCULUS Call Center Team Leader: JAYME Transcribe Date/Time: Feb 18 2018 8:22A Dictated by : SANDY AMADO MD This examination was interpreted and the report reviewed and electronically signed by: SANDY AMADO MD on Feb 18 2018 8:31AM EST [id number] URINALYSIS WITH Collected: 01/29/2018 Status: F Source: [facility] 9:01 AM [facility] REPOSITORY TYPE CODE TESTS RESULT OUT OF RANGE REFERENCE UNITS LAB UCOL Yellow Color Yellow LAB [facility] Clear Clarity Abnormal Cloudy Alert LAB UGLUC Negative mg/dL Glucose, Urine Negative LAB UBIL Negative Bilirubin, Urine Negative LAB UKET Negative Ketones, Urine Negative LAB USPG 1.005-1.030 Specific [place], Ur 1.017 LAB UHGB Negative Abnormal Hemoglobin/Blood, 1+ Alert Ur LAB UPH 4.5-8.0 pH 5.0 LAB UPROT Negative mg/dL Protein, Abnormal Urine 100 Alert LAB UUROB Normal Urobilinogen Normal LAB UNITR Negative Nitrites Negative LAB ULKEST Negative Leukest Abnormal 3+ Alert LAB UCOM Comments SEE COMMENT Result Comment: N/A LAB UMCOM Urine SEE Shyanne Comment COMMENT Result Comment: N/A LAB UWBC 0-5 /HPF Abnormal Alert WBC >25 LAB URBC 0-3 /HPF Abnormal Alert RBC 3-5 Performed By: #### UAWMIC #### [facility] [place] [facility] [address] [place], [place] [address] CNOVSP Observed: 01/28/2018 Status: COMPLETED Source: [facility] 9:30 AM [facility] REPOSITORY Visit (SP) Office (HEMAWS) SAM HAGEN ([id number]) 1940 M Date Time Provider Department 5/16/18 9:30 AM TAMEKA MARSHALL (BLANQUITA BROWN During your visit today, we recorded the following information about you: Temperature Pulse Blood pressure Weight 98.3 degrees 55/minute 96/49 80.5 kg Tameka Marshall APRN.CNP 01/29/2018 8:10 AM Signed Chief Complaint Patient presents with: Established Patient HPI: Sam Hagen is a 77 year old male who presents here today for follow up colon cancer/SCP. Per Dr. Greenberg's previous note: H/o CAD?([place]; treated with PCI balloon angioplasty; no stent) and prostate cancer?(tx with radiation x44 fx ~6-8 years ago). ? He presented to [facility] with symptoms of bowel obstruction. He underwent attempted colonoscopy but the procedure was aborted when the scope was not able to be passed through the rectum/sigmoid area. He was transferred to [facility]. He ultimately underwent a total colectomy along with end ileostomy and partial bladder resection on 07/03/2017. He was noted to have 2 foci of tumor one in the cecum and one in the sigmoid colon. The latter tumor was adherent to the bladder invasive to the bladder wall. ? 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 ?TUMOR PENETRATES TO THE SURFACE OF THE VISCERAL PERITONEUM. SURGICAL MARGINS NEGATIVE. 1 OF 13 LYMPH NODES POSITIVE FOR METASTATIC ADENOCARCINOMA AND 1 TUMOR DEPOSIT PRESENT. PERINEURAL AND LYMPHOVASCULAR INVASION PRESENT. B) SMALL INTESTINE, TERMINAL ILEUM, ILEOSTOMY - BENIGN SMALL INTESTINAL TISSUE. C) BLADDER, PARTIAL CYSTECTOMY - FOCAL INVOLVEMENT OF THICK SMOOTH MUSCLE BUNDLES BY ADENOCARCINOMA. ?NO UROTHELIUM PRESENT. D) COLON, SIGMOID, SEGMENTAL RESECTION - INVASIVE LOW GRADE (MODERATELY DIFFERENTIATED) ADENOCARCINOMA (3 CM IN GREATEST DIMENSION). ?SURGICAL MARGINS APPEAR NEGATIVE. BENIGN TRANSECTED BENIGN VAS DEFERENS (2) AND THICK SMOOTH MUSCLE SUGGESTIVE OF BLADDER. 1 OF 9 LYMPH NODES POSITIVE FOR METASTATIC ADENOCARCINOMA ? ? Previous therapy: 1) Infusional 5FU. No complaints. 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 Resp:denies cough or sob Cardiac:denies chest pain/palpitations-Followed by cards/Dr. Portillo GI:denies abd pain, n/v, ostomy functioning well :denies dysuria/hematuria Extrem:my legs are still tired I do have R hip pain-it's been going on for years-I get shots in it. 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 Past medical history, appointments, medications, allergies reviewed. No changes. EXAM: BP (!) 96/49 Pulse (!) 55 Temp 36.8 ?C (98.3 ?F) (Oral) Wt 80.5 kg (177 lb 8 oz) BMI 27.80 kg/m? APPEARANCE Well appearing, alert, in no acute distress, well- hydrated, well nourished. HEART RRR with normal S1 and S2, no murmurs LUNG clear to auscultation LYMPH NODES No cervical lymphadenopathy, No supraclavicular lymphadenopathy and No axillary lymphadenopathy. ABDOMEN ostomy healthy appearing, bowel sounds normoactive, no bruits, soft, non-tender, non-distended, without organomegaly or palpable masses EXTREMITIES No edema NEURO Awake, alert and oriented x 3, Normal gait and No involuntary motions. SKIN Skin color, texture, turgor normal, no suspicious rashes or lesions LABS: Component Latest Ref Rng AND Units 01/02/2018 01/20/2018 01/28/2018 WBC, [place] 3.70 - 11.00 k/uL 7.84 5.65 6.02 RBC, [place] 4.20 - 6.00 m/uL 4.00 (L) 3.62 (L) 3.73 (L) Hemoglobin, [place] 13.0 - 17.0 g/dL 11.7 (L) 10.6 (L) 11.1 (L) Hematocrit, [place] 39.0 - 51.0 % 37.3 (L) 34.4 (L) 35.6 (L) MCV, [place] 80.0 - 100.0 fL 93.3 95.0 95.4 MCH, [place] 26.0 - 34.0 pg 29.3 29.3 29.8 MCHC, [place] 30.5 - 36.0 g/dL 31.4 30.8 31.2 RDW, [place] 11.5 - 15.0 % 19.2 (H) 18.4 (H) 17.9 (H) Platelet Cnt, [place] 150 - 400 k/uL 173 135 (L) 181 MPV, [place] 9.0 - 12.7 fL 8.6 (L) 8.3 (L) 8.3 (L) Absol Gran Count 1.45 - 7.50 k/uL 5.22 3.64 2.82 CMP/CEA: Pending ASSESSMENT/PLAN: 1. Malignant neoplasm of sigmoid colon (HCC) - ICD9: 153.3, ICD10: C18.7 (primary diagnosis) 2. Malignant neoplasm of ascending colon (HCC) - ICD9: 153.6, ICD10: C18.2 mpT4a pN1 M0 adenocarcinoma with mucinous features of the ascending colon. There was lymphovascular as well as perineural invasion observed. One tumor deposit. One of 13 nodes. -mpT4b pN1 M0 adenocarcinoma of the sigmoid colon. Focal involvement of bladder. Lymphovascular invasion was observed. No tumor deposits. One of 9 nodes involved. 3. S/P total colectomy - ICD9: V45.72, ICD10: Z90.49 - Reviewed CBC with pt. - CMP/CEA pending. - Reviewed SCP with pt. and family member. Copies given. - Refer to Dr. Werner ? radiation. - Needs CT abd/pelvis. - Follow up in 3 months with CEA pending today's CEA and CT a/p. - Pt. aware to call office with any questions/concerns. The patient indicates understanding of these issues and agrees with the plan. Discussed case with Dr. Greenberg who agrees with treatment plan. Tameka Marshall APRN.TOUCH UP WORKER Referring Provider: SAM GREENBERG [[id number]] Allergies As of Date: 01/28/2018 (No Known Allergies) Date Reviewed: 01/28/2018 Reviewed by: Tameka (Button Cutter) Rolando - Fully Assessed Reason for Visit: Established Patient [175] Primary Visit Diagnosis:Malignant neoplasm of sigmoid colon (HCC) [C18.7] Other Visit Diagnoses:Malignant neoplasm of ascending colon (HCC) [C18.2] S/P total colectomy [Z90.49] Order(s):CT ABD/PEL W IVCON [[id number]] Order #: [id number] FUTURE iv contrast (will be provided with radiology test)CT Chest ABD/PEL-Inject, intravenously, once for 1 dose.No IV access, insert saline lock prior to the beginning of sedation, infusion, injection of imaging exam. Discontinue saline lock post exam. If Pt. has a central line or IVAD, may access for administration according to line specific nursing protocol. Once exam is complete flush line and de-access according to line specific nursing protocol in the CT contrast administration guidelines link.Disp: 1 EachRfl: 0 enteric contrast (will be provided with radiology test)For CT CHESTABD/PEL W IVCON Routine order Administer, As Directed One Time Only, via Oral, Rectal, both Oral and Rectal, Enteric Tube, Stoma or Indwelling Catheter, Enteric Contrast as designated per enteric contrast guidelinesDisp: 1 EachRfl: 0 Follow-up and Disposition History Recorded Prescriptions as of 01/28/2018 Sig: TAMSULOSIN 0.4 MG CAPSULE Take one(1) capsule daily. MELATONIN 3 MG TABLET Take 3 mg by mouth daily at b* CALCIUM 600 + D(3) ORAL Take by mouth once daily. PROSTATE ORAL Take by mouth once daily. OMEGA 3 FISH OIL ORAL Take by mouth once daily. IRON 160 MG-METHYLFOLATE 1 MG* Take by mouth once daily. HYDROCODONE 10 MG-ACETAMINOPH* Take 1 tablet by mouth every * ISOSORBIDE MONONITRATE ER 60 * Take 1 tablet by mouth once d* SIMVASTATIN 40 MG TABLET Take 1 tablet by mouth daily * ATENOLOL 25 MG TABLET Take 0.5 tablets by mouth onc* APIXABAN 5 MG TABLET Take 1 tablet by mouth twice * GABAPENTIN 300 MG CAPSULE Take 1 capsule by mouth three* FINASTERIDE 5 MG TABLET Take 5 mg by mouth once daily. OMEPRAZOLE 40 MG CAPSULE,ROHIT* Take 1 capsule by mouth once * COMPOUNDED PRESCRIPTION Colostomy Care Supplies; 1 m* COMPOUNDED PRESCRIPTION Colostomy Care Supplies; 1 m* LOPERAMIDE 2 MG TABLET Take 2 mg by mouth as needed. ONDANSETRON HCL 8 MG TABLET Take 1 tablet by mouth every * IV CONTRAST (RADIOLOGY PROCED* CT Chest ABD/PEL-Inject, intr* ENTERIC CONTRAST (RADIOLOGY P* For CT CHESTABD/PEL W IVCON R* Problem List As Of Date 01/28/2018 Noted Resolved Bowel obstruction (HCC) [K56.609] INVALID FOR*07/10/2017 Other specified abnormal immunological findings*INVALID FOR* More... Colon cancer (HCC) [C18.9] INVALID FOR* Priority: B More... 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 Arthritis of right hip [M16.11] INVALID FOR* Priority: M Colostomy care ([facility]) [Z43.3] INVALID FOR* Priority: C Colostomy in place ([facility]) [Z93.3] INVALID FOR* Priority: C History of DVT (deep vein thrombosis) [Z86.718] INVALID FOR* Priority: A More... Bladder stone [N21.0] INVALID FOR* Priority: C More... Coronary artery disease involving [place]*INVALID FOR* Priority: A More... H/O heart artery stent [Z95.5] INVALID FOR* Priority: B More... Nerve pain [M79.2] INVALID FOR* Priority: M More... Hyperlipidemia, mixed [E78.2] INVALID FOR* Priority: A Chronic midline back pain [M54.9, G89.29] INVALID FOR* Priority: M Encounter Status:Closed by TAMEKA MARSHALL CNP on 01/29/18 PROGRESS Observed: 01/28/2018 Status: COMPLETED Source: [place] 9:04 AM [facility] REPOSITORY HNO ID: [id number] Author: Tameka (Jennifer) Rolando Service: (none) Author Type: Nurse Practitioner Type: Progress Notes Filed: 01/29/2018 8:10 AM Note Text: Chief Complaint Patient presents with: Established Patient HPI: Sam Hagen is a 77 year old male who presents here today for follow up colon cancer/SCP. Per Dr. Greenberg's previous note: H/o CAD?([place]; treated with PCI balloon angioplasty; no stent) and prostate cancer?(tx with radiation x44 fx ~6-8 years ago). ? He presented to [facility] with symptoms of bowel obstruction. He underwent attempted colonoscopy but the procedure was aborted when the scope was not able to be passed through the rectum/sigmoid area. He was transferred to [facility]. He ultimately underwent a total colectomy along with end ileostomy and partial bladder resection on 07/03/2017. He was noted to have 2 foci of tumor one in the cecum and one in the sigmoid colon. The latter tumor was adherent to the bladder invasive to the bladder wall. ? 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 ?TUMOR PENETRATES TO THE SURFACE OF THE VISCERAL PERITONEUM. SURGICAL MARGINS NEGATIVE. 1 OF 13 LYMPH NODES POSITIVE FOR METASTATIC ADENOCARCINOMA AND 1 TUMOR DEPOSIT PRESENT. PERINEURAL AND LYMPHOVASCULAR INVASION PRESENT. B) SMALL INTESTINE, TERMINAL ILEUM, ILEOSTOMY - BENIGN SMALL INTESTINAL TISSUE. C) BLADDER, PARTIAL CYSTECTOMY - FOCAL INVOLVEMENT OF THICK SMOOTH MUSCLE BUNDLES BY ADENOCARCINOMA. ?NO UROTHELIUM PRESENT. D) COLON, SIGMOID, SEGMENTAL RESECTION - INVASIVE LOW GRADE (MODERATELY DIFFERENTIATED) ADENOCARCINOMA (3 CM IN GREATEST DIMENSION). ?SURGICAL MARGINS APPEAR NEGATIVE. BENIGN TRANSECTED BENIGN VAS DEFERENS (2) AND THICK SMOOTH MUSCLE SUGGESTIVE OF BLADDER. 1 OF 9 LYMPH NODES POSITIVE FOR METASTATIC ADENOCARCINOMA ? ? Previous therapy: 1) Infusional 5FU. No complaints. 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 Resp:denies cough or sob Cardiac:denies chest pain/palpitations-Followed by cards/Dr. Portillo GI:denies abd pain, n/v, ostomy functioning well :denies dysuria/hematuria Extrem:my legs are still tired I do have R hip pain-it's been going on for years-I get shots in it. 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 Past medical history, appointments, medications, allergies reviewed. No changes. EXAM: BP (!) 96/49 Pulse (!) 55 Temp 36.8 ?C (98.3 ?F) (Oral) Wt 80.5 kg (177 lb 8 oz) BMI 27.80 kg/m? APPEARANCE Well appearing, alert, in no acute distress, well-hydrated, well nourished. HEART RRR with normal S1 and S2, no murmurs LUNG clear to auscultation LYMPH NODES No cervical lymphadenopathy, No supraclavicular lymphadenopathy and No axillary lymphadenopathy. ABDOMEN ostomy healthy appearing, bowel sounds normoactive, no bruits, soft, non-tender, non-distended, without organomegaly or palpable masses EXTREMITIES No edema NEURO Awake, alert and oriented x 3, Normal gait and No involuntary motions. SKIN Skin color, texture, turgor normal, no suspicious rashes or lesions LABS: Component Latest Ref Rng AND Units 01/02/2018 01/20/2018 01/28/2018 WBC, [place] 3.70 - 11.00 k/uL 7.84 5.65 6.02 RBC, [place] 4.20 - 6.00 m/uL 4.00 (L) 3.62 (L) 3.73 (L) Hemoglobin, [place] 13.0 - 17.0 g/dL 11.7 (L) 10.6 (L) 11.1 (L) Hematocrit, [place] 39.0 - 51.0 % 37.3 (L) 34.4 (L) 35.6 (L) MCV, [place] 80.0 - 100.0 fL 93.3 95.0 95.4 MCH, [place] 26.0 - 34.0 pg 29.3 29.3 29.8 MCHC, [place] 30.5 - 36.0 g/dL 31.4 30.8 31.2 RDW, [place] 11.5 - 15.0 % 19.2 (H) 18.4 (H) 17.9 (H) Platelet Cnt, [place] 150 - 400 k/uL 173 135 (L) 181 MPV, [place] 9.0 - 12.7 fL 8.6 (L) 8.3 (L) 8.3 (L) Absol Gran Count 1.45 - 7.50 k/uL 5.22 3.64 2.82 CMP/CEA: Pending ASSESSMENT/PLAN: 1. Malignant neoplasm of sigmoid colon (HCC) - ICD9: 153.3, ICD10: C18.7 (primary diagnosis) 2. Malignant neoplasm of ascending colon (HCC) - ICD9: 153.6, ICD10: C18.2 mpT4a pN1 M0 adenocarcinoma with mucinous features of the ascending colon. There was lymphovascular as well as perineural invasion observed. One tumor deposit. One of 13 nodes. -mpT4b pN1 M0 adenocarcinoma of the sigmoid colon. Focal involvement of bladder. Lymphovascular invasion was observed. No tumor deposits. One of 9 nodes involved. 3. S/P total colectomy - ICD9: V45.72, ICD10: Z90.49 - Reviewed CBC with pt. - CMP/CEA pending. - Reviewed SCP with pt. and family member. Copies given. - Refer to Dr. Werner ? radiation. - Needs CT abd/pelvis. - Follow up in 3 months with CEA pending today's CEA and CT a/p. - Pt. aware to call office with any questions/concerns. The patient indicates understanding of these issues and agrees with the plan. Discussed case with Dr. Greenberg who agrees with treatment plan. Tameka Marshall, SUPERVISOR LOCOMOTIVE.TOUCH UP WORKER [place] ABS GR + CBC Collected: 01/28/2018 Status: F Source: [place] 9:00 AM [facility] REPOSITORY TYPE CODE TESTS RESULT OUT OF REFERENCE UNITS RANGE LAB WWBC 3.70-11.00 k/uL [place] WBC 6.02 LAB WRBC 4.20-6.00 m/uL Low [place] RBC 3.73 LAB WHGB 13.0-17.0 g/dL Low [place] Hemoglobin 11.1 LAB WHCT 39.0-51.0 % Low [place] Hematocrit 35.6 LAB WMCV 80.0-100.0 fL [place] MCV 95.4 LAB WMCH 26.0-34.0 pg [place] MCH 29.8 LAB WMCHC 30.5-36.0 g/dL [place] MCHC 31.2 LAB WRDW 11.5-15.0 % [place] High RDW 17.9 LAB WPLT 150-400 k/uL [place] Platelet Cnt 181 LAB WMPV 9.0-12.7 fL Low [place] MPV 8.3 Result Comment: Test performed at: [facility] [place] [facility] [place], [address] [place] [address]. LAB ABGRAN 1.45-7.50 k/uL Absol Gran 2.82 Count HEMOGLOBIN A1C Collected: 01/28/2018 Status: F Source: [place] 9:00 AM [facility] REPOSITORY TYPE CODE TESTS RESULT OUT OF REFERENCE UNITS RANGE LAB HGBA1C 4.3-5.6 % High Hemoglobin A1c 5.9 LAB HBA0 mg/dL Est. Average Glucose 123 Result Comment: eAG: (Estimated average glucose) is a calculated value from HgbA1c and is account development representative of the average blood glucose level in the last 2-3 month period. Performed By: #### CEA, CMP, HBA1C #### [facility] [place] [facility] [address] [place], [place] [address] COMP METABOLIC PANEL Collected: 01/28/2018 Status: F Source: [place] 9:00 AM [facility] REPOSITORY TYPE CODE TESTS RESULT OUT OF REFERENCE UNITS RANGE LAB TP 6.3-8.0 g/dL Protein, Total 6.8 LAB ALB 3.9-4.9 g/dL Albumin 4.2 LAB CA 8.5-10.2 mg/dL Calcium, Total 9.3 LAB TBIL 0.2-1.3 mg/dL Bilirubin, Total 0.4 LAB ALKP 36-108 U/L Alkaline Phosphatase 81 LAB AST 14-40 U/L AST 25 LAB GLU 74-99 mg/dL Glucose High 107 Result Comment: The [place] Diabetes Association (ADA) provides guidance for cutoff values for fasting glucose and random glucose. The ADA defines fasting as no caloric intake for at least 8 hours. Fas ting plasma glucose results between 100 to 125 mg/dL indicate increased risk for diabetes (prediabetes). Fasting plasma glucose results greater than or equal to 126 mg/dL meet the criteria for diagnosis of diabetes. In the absence of unequivocal hyperglycemia, results should be confirmed by repeat testing. In a patient with classic symptoms of hyperglycemia or hyperglycemic crisis, random plasma glucose results greater than or equal to 200 mg/dL meet the criteria for diagnosis of diabetes. Reference: Standards of Medical Care in Diabetes 2016, [place] Diabetes Association. Diabetes Care. 2016.39(Suppl 1). LAB BUN 9-24 mg/dL BUN 17 LAB CRET 0.73-1.22 mg/dL Creatinine 0.99 LAB NA 136-144 mmol/L Sodium 141 LAB K 3.7-5.1 mmol/L Potassium 4.7 LAB CL 97-105 mmol/L Chloride 103 LAB CO2 22-30 mmol/L CO2 28 LAB AGAP 9-18 mmol/L Anion Gap 10 LAB ALT 10-54 U/L ALT 22 LAB GFRAA eGFR- Amer. >60 LAB GFRNAA . eGFR-All Other Races >60 Result Comment: eGFR (Estimated GFR) Units of measure: mL/min/1.73 meters squared eGFR is derived from the reexpressed MDRD Study equation using the following parameters: serum creatinine, age, gender and race. The creatinine assay has been calibrated to be traceable to IDMS. An eGFR <60 mL/min/1.73m2 for >3 months is consistent with chronic kidney disease. Refer to KDOQI guidelines for clinical interpretation. In patients with unstable renal function, e.g. those with acute kidney injury, the eGFR may not accurately reflect actual GFR. Performed By: #### CEA, CMP, HBA1C #### [facility] [place] [facility] [employer] [address] [place], [place] [address] CEA Collected: 01/28/2018 Status: F Source: [place] 9:00 [facility] REPOSITORY TYPE CODE TESTS RESULT OUT OF RANGE REFERENCE UNITS LAB CEA 0.0-2.9 ng/mL CEA 1.2 Result Comment: Test analyzed by the [employer] DxI method. Performed By: #### CEA, CMP, HBA1C #### [facility] [place] [facility] [employer] [address] [place], [place] [address] LIPID PANEL, BASIC Collected: 01/28/2018 Status: F Source: [place] 9:00 [facility] REPOSITORY TYPE CODE TESTS RESULT OUT OF REFERENCE UNITS RANGE LAB CHOL <200 mg/dL Cholesterol 109 Result Comment: <200 mg/dL, Desirable 200-239 mg/dL, Borderline high >239 mg/dL, High LAB TRIGLY <150 mg/dL Triglyceride 118 Result Comment: <150 mg/dL, Normal 150-199 mg/dL, Borderline high 200-499 mg/dL, High >499 mg/dL, Very high LAB HDL >39 mg/dL HDL-Cholesterol Low 38 Result Comment: 40-59 mg/dL, Acceptable >59 mg/dL, High: Negative risk factor for coronary heart disease <40 mg/dL, Low: Positive risk factor for coronary heart disease LAB LDL <100 mg/dL LDL-Cholesterol 47 Result Comment: <100 mg/dL, Optimal 100-129 mg/dL, Near optimal/above optimal 130-159 mg/dL, Borderline high 160-189 mg/dL, High >189 mg/dL, Very high Secondary prevention optimal LDL Cholesterol levels are recommended to be < 70 mg/dL LAB NONHDL <130 mg/dL Non HDL Cholesterol 71 Result Comment: <130 mg/dL, Optimal 130-159 mg/dL, Near optimal/above optimal 160-189 mg/dL, Borderline high 190-219 mg/dL, High >219 mg/dL, Very high Secondary prevention optimal non HDL Cholesterol levels are recommended to be < 100 mg/dL LAB FT hrs Fasting Time Unknown LAB VLDL <30 mg/dL VLDL Cholesterol 24 LAB TCHDL <5.10 TC:HDL Ratio 2.87 LAB LDLHDL <2.54 LDL:HDL Ratio 1.24 Result Comment: Reference: 1. National Cholesterol Education Program ATP III Guideline At-A-Glance Quick Desk Reference: National Heart, Lung, and Blood [place]. National Institutes of Health. 2001: NIH Publication No. 01-3305. 2. An International Atherosclerosis Society position paper: global recommendations for the management of dyslipidemia: executive summary, Atherosclerosis. 2014: 232(2):410-413. Performed By: #### LIPB #### [facility] [place] [facility] [address] [place], [place] [address] CARDIOLOGY VISIT Observed: 01/27/2018 Status: F Source: [place] REPORT 1:35 PM [facility] [place] [facility] [address] [place] [address] OFFICE VISIT Date of Service: 01/27/18 MR#: [id number] Acct: [id number] Name: SAM HAGEN Rep #: [id number] : 1940 Provider: Earl Huntley MD Age/Sex: 77/M Location: [facility] Status: Signed [facility] Chief Complaint: Follow up Details: SAM HAGEN, is a 77 M who presents to the office today for a follow-up visit. He is a gentleman with a history of coronary artery disease with minimal disease in the left main coronary artery, left anterior descending artery with mild disease, left circumflex artery which is totally occluded in the right coronary artery with diffuse disease. He also has a history of hypertension and hyperlipidemia. As you know he has been diagnosed with colon carcinoma and has undergone a total colectomy with a colostomy as well as partial bladder removal. He continues to be on chemotherapy. He has had no neck arm or jaw discomfort suggest angina he has had generalized body aches dizziness and balance problems he is also had mild pedal edema and some shortness of breath with activity. He tells me that he was put on Eliquis because he apparently developed a deep vein thrombosis. He is scheduled to discontinue the above soon. His physical exam today demonstrates clear lung norris regular rate and rhythm and no pedal edema his blood pressure is under excellent control. Intake Vital Signs01/27/18 Height 5 ft 7 in 01/27/18 Weight: 181 lb 01/27/18 Body Mass Index (BMI) 28.3 01/27/18 Blood Pressure 108/60 01/27/18 Blood Pressure Location Lt brachial Intake Visit Reasons: 6 M Corporate Webmaster Required: No Accompanied by: None Is patient in pain?: Yes (back discomfort) Pain scale (1-10): 4 Allergies No Known Allergies Allergy (Verified 01/27/18 13:08) Medications Nitroglycerin [Nitrostat] 0.4 mg SUBLINGUAL Q5M PRN 05/30/14 [History Confirmed 01/27/18] Simvastatin [Zocor] 40 mg PO QHS 05/30/14 [History Confirmed 01/27/18] isosorbide mononitrate ER 60 mg tablet,extended release 24 hr 60 mg PO DAILY #90 tab 10/09/17 [Rx Confirmed 01/27/18] apixaban 5 mg tablet 5 mg PO BID 01/27/18 [History Confirmed 01/27/18] atenolol 25 mg tablet 12.5 mg PO QDAY tab 01/27/18 [History Confirmed 01/27/18] finasteride 5 mg tablet 5 mg PO QDAY 01/27/18 [History Confirmed 01/27/18] gabapentin 300 mg capsule 300 mg PO TID 01/27/18 [History Confirmed 01/27/18] hydrocodone 10 mg-acetaminophen 325 mg tablet 1 tab PO Q6H PRN 30 Days #120 tab 01/27/18 [History Confirmed 01/27/18] loperamide 2 mg tablet 2 mg PO Q1-4H PRN 01/27/18 [History Confirmed 01/27/18] omeprazole 40 mg capsule,delayed release 40 mg PO QDAY 01/27/18 [History Confirmed 01/27/18] ondansetron HCl 8 mg tablet 8 mg PO Q8H PRN tab 01/27/18 [History Confirmed 01/27/18] tamsulosin 0.4 mg capsule 0.4 mg PO QDAY 01/27/18 [History Confirmed 01/27/18] Ejection fraction %: 65 to 70 (66% per stress test 07/13/2012 at [facility]) [facility] Medical History HTN (hypertension) (Chronic) Atherosclerotic heart disease of [place] coronary artery without angina pectoris (Chronic) HLD (hyperlipidemia) (Chronic) BPH (benign prostatic hyperplasia) (Chronic) Bright's disease (Chronic) CAD (coronary artery disease) (Chronic) History of prostate cancer (Chronic) Surgical History History of PTCA (Chronic) History of cystoscopy (Chronic) History of inguinal hernia repair, bilateral (Chronic) History of rotator cuff surgery (Chronic) Hx of appendectomy (Chronic) Hx of colectomy (Chronic) Status post trigger finger release (Chronic) Family History Father Cancer skin cancer Mother Myocardial infarction Diabetes Social History Smoking Status: Never smoker alcohol intake: current alcohol intake frequency: a few times a month Alcohol type: hard liquor substance use type: does not use ROS Const Const: Positive for body ache; negative for fever(s), chills, night sweats, daytime sleepiness, difficulty sleeping, weight gain, weight loss, increased appetite, poor appetite, anorexia, other, frequent falls, headache(s), weakness, fatigue or excessive sweating Eyes Eyes: Negative for blind spots, loss of peripheral vision, transient loss of vision, change in vision, floaters, tunnel vision, other, blurry vision or double vision ENT ENT: Positive for balance problems, dizziness, tinnitus and dry mouth; negative for hearing loss, Nosebleed/epistaxis, post nasal drip, bleeding gums, hoarseness, neck pain, other, headache(s), tongue swelling or lip swelling Cardio Chest Pain: No Palpitations: No Edema: Bilateral (lower extremities) Muscle aches with walking: Right (lower extremity) Resp Respiratory: Positive for SOB with activity; negative for SOB at rest, SOB orthopnea\SOB lying down, Cough, Coughing up blood/hemoptysis, chest congestion, pain on inspiration, snoring, stridor, wheezing, crackles, paroxysmal nocturnal dyspnea or other GI GI: Positive for nausea; negative vomiting, heartburn, constipation, belching, bloating, cramping, vomiting blood/hematemesis, bright, red blood in stools, black,tarry stools, loose stools, Difficulty Swallowing or other : Negative for hematuria, frequent nighttime urination/ nocturia, erectile dysfunction or abnormal vaginal bleeding Musc Musc: Positive for joint pain, balance problems and muscle weakness; negative for muscle aches/ myalgia Skin Skin: Negative redness, non-healing lesions, unusual bruising, skin ulcer, wounds, jaundice, other or rash Neuro Neuro: Positive for dizziness; negative for lightheadedness, near syncope, syncope, orthostatic symptoms, frequent falls, headache(s), weakness, confusion, memory loss, restless legs, blurry vision, double vision, vertigo, seizures, lack of coordination or other [place] Hematologic/Lymphatic: Positive for easy bruising; negative for easy bleeding, enlarged lymph nodes or other Endo Endo: Negative for fatigue, cold intolerance, heat intolerance, excessive sweating, flushing, increased thirst/drinking, increased hunger, hair loss, hair growth or other Psych Psych: Negative for anxiety, depression, thoughts of harming anyone, thoughts of harming yourself, visual hallucinations, panic attacks or audible hallucinations Allergy Allergy/Immunology: Negative for throat swelling, Negative for tongue swelling, Negative for hives, Negative for rash, Negative for lip swelling Cardiology Exam Const Appearance: cooperative, healthy appearing, well developed, well groomed and no acute distress Nutritional Appearance: well nourished and average body habitus Orientation: alert, awake and oriented x3 Head Head: normal to inspection, normocephalic and atraumatic Ears: hearing grossly normal bilaterally and external ears normal Nose: external nose normal, nasal mucous membranes and turbinates normal, nares normal, septum normal, no nasal discharge Face and Sinus: face symmetric Mouth: oral mucosae normal, tongue normal, oropharynx normal and moist mucous membranes Teeth and gingiva: dentition normal Throat: posterior oropharynx normal, tonsils normal and uvula midline Eyes General: appearance normal, both eyes and all related structures Eyelids: eyelids normal Conjunctivae: conjunctivae normal Pupils: PERRL, normal by confrontation and accommodation normal EOM: EOM intact bilaterally Neck Neck: normal visual inspection, trachea midline and no JVD JVD: +5 Carotids: normal carotid upstroke and bounding pulses Chest Chest inspection: normal inspection of the chest, symmetric chest movement and normal respiratory effort Auscultation: Bilateral: Clear to Auscultation Cardio Palpation: normal PMI Rate: regular rate Rhythm: regular rhythm Heart sounds: S1 normal, S2 normal and normal, physiologic split S2; negative rub, gallop or murmur GI GI: normal to inspection, soft, no hepatosplenomegaly and bowel sounds present Neuro General: alert, awake, oriented x3, no focal sensory deficit, gait normal and moves all extremities Skin Skin: no rashes or lesions noted Extremities Pulses: Normal: Right Femoral Pulse, Left Femoral Pulse, Right Dorsalis Pedis Pulse, Left Dorsalis Pedis Pulse, Right Posterior Tibial Pulse, Left Posterior Tibial Pulse, Right Radial Pulse, Left Radial Pulse Lower Extremity Edema: None: Bilateral Musculoskel Musculoskeletal: No joint tenderness Psych Psychological: normal affect Assessment AND Plan 1. Atherosclerotic heart disease of [place] coronary artery without angina pectoris I25.10 Plan He continues to do well without any evidence of angina my recommendation is that we continue him on the current medicines without making any changes. Depending on the findings further recommendations will be made. You do remember he underwent stress testing in February 2016 which was negative for myocardial ischemia but he did have preserved ejection fraction. 2. HTN (hypertension) I10 Plan His blood pressure appears to be under good control on the current medical therapy. He is on a lower dose of the beta-ralph. He is also on isosorbide. No changes will be made at this time. I suggested to him that should he have any dizzy spells he should not hesitate to let us know. 3. HLD (hyperlipidemia) E78.5 Plan He remains on lipid-lowering medication with his most recent lipid profile demonstrated total cholesterol 139 LDL of 81 and HDL 46. No other changes will be recommended. Plan Detail Other Medications Discontinued: hydrocodone-acetaminophen 5-325 mg Discontin1 ea PO Q4H PRN Mod-Severe Pain (4-1010) ued Reason: Order Changed Follow Up 6 Months (gladis) Coding Level of Care Code Off vis,est,level 3 Diagnoses Atherosclerotic heart disease of [place] coronary artery without angina pectoris I25.10 HTN (hypertension) I10 HLD (hyperlipidemia) E78.5 Coding Level of Care Code Off vis,est,level 3 Diagnoses Atherosclerotic heart disease of [place] coronary artery without angina pectoris I25.10 HTN (hypertension) I10 HLD (hyperlipidemia) E78.5 01/27/18 1335 <Electronically signed by Earl Huntley MD> Date Earl Huntley MD Cosigner Signature: Date (if applicable) CC: Vishal Jones MD PROGRESS Observed: 01/26/2018 Status: COMPLETED Source: [place] 2:07 PM [facility] [place] REPOSITORY HNO ID: [id number] Author: Vishal Jones Service: (none) Author Type: Physician Type: Progress Notes Filed: 01/26/2018 9:32 PM Note Text: Chief Complaint Patient presents with: Recheck: 4 month F/U HPI Sam Hagen is a 77 year old male who presents here today for Chronic Medical Conditions.. Patient with Hx as reviewed and documented below. Has been doing ok. Ran out of his gabapentin for a few days and really noted how much better he had been feeling with beeing on it. Past medical history, appointments, medications, allergies reviewed. 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 Bagley - Colon cancer ([facility]) 06/30/[address] Greenberg, Had extension into the bladder wall and hd a partial cystectomy. - Colostomy care ([facility]) 09/25/2017 - Colostomy in place ([facility]) 09/25/2017 - Coronary artery disease involving [place] coronary artery 09/25/[address] 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 and other lower urinary tract symptoms (LUTS) Previous Surgical History PAST SURGICAL HISTORY Procedure Laterality Date - CARPAL TUNNEL Bilateral - CATARACT EXTRACTION HX Right - ECHOCARDIOGRAM 07/05/2017 - LAP REPAIR INTIAL INGUINAL HERNIA 01/11/09 - PAST SURGICAL HISTORY OF 07/03/2017 COLECTOMY ABDOMINAL W/O PROCTECTOMY W/ ILEOSTOMY/ILEOPROCTOSTOMY, TOTAL - REPAIR COMPL ROTATOR CUFF AVULSN,CHR left - REPAIR SLIDING INGUINAL HERNIA LIH - REPAIR UMBILICAL ANNA,5+Y/O,REDUC 01/11/09 - SIGMOIDOSCOPY 06/29/2017 Family History FAMILY HISTORY Problem Relation Age of Onset - Prostate Cancer Father - Cancer Father skin - Heart Mother - Stroke Mother - Diabetes Mother Patient Allergies ALLERGIES No Known Allergies Current Medications Current Outpatient Prescriptions on File Prior to Visit: HYDROcodone-Acetaminophen (NORCO) 10-325 mg per tablet Take 1 tablet by mouth every 6 hours as needed for up to 30 days.Earliest Fill Date: 01/19/18 isosorbide mononitrate ER (IMDUR) 60 mg 24 hr tablet Take 1 tablet by mouth once daily. simvastatin (ZOCOR) 40 mg tablet Take 1 tablet by mouth daily at bedtime. atenolol (TENORMIN) 25 mg tablet Take 0.5 tablets by mouth once daily. apixaban (ELIQUIS) 5 mg tab(s) Take 1 tablet by mouth twice daily. gabapentin (NEURONTIN) 300 mg capsule Take 1 capsule by mouth three times daily for 180 days. finasteride (PROSCAR) 5 mg tablet Take 5 mg by mouth once daily. Omeprazole (PRILOSEC) 40 mg capsule Take 1 capsule by mouth once daily. COMPOUNDED PRESCRIPTION Colostomy Care Supplies; 1 months worth with 11 refills (fax # [phone])3M Cavilon No-sting Barrier Film Wipes # [id number] Qty 1 box of 50Stomahesive Paste 2 oz tube # [id number] Qty 1 tube COMPOUNDED PRESCRIPTION Colostomy Care Supplies; 1 months worth with 11 refills (fax # [phone])Adapt Oval Convex Ring 7/8 x 1 /2 # [id number] Qty 1 box 10 eachPremier 1-Piece Soft Convvex Drainable pouch Cut to fit -09/16 Qty 2 box 5 each Loperamide HCl (IMODIUM A-D) 2 mg tab Take 2 mg by mouth as needed. ondansetron (ZOFRAN) 8 mg tablet Take 1 tablet by mouth every 8 hours as needed for Nausea/Vomiting. Indications: CANCER CHEMOTHERAPY-INDUCED NAUSEA AND VOMITING No current facility-administered medications on file prior to visit. Social History Social History Marital status: Spouse name: Years of education: Number of children: Social History Main Topics Smoking status: Never Smoker Smokeless tobacco: Current User Types: Chew Alcohol use: Yes Comment: rare Drug use: No Review of Symptoms REVIEW OF SYSTEMS GENERAL: No weight loss, malaise or fevers NECK: Negative for lumps, goiter, pain and significant neck swelling RESPIRATORY: Negative for cough, hemoptysis, wheezing, COPD, dyspnea or shortness of breath CARDIOVASCULAR: Negative for chest pain, leg swelling, hypertension, CHF or palpitations GI: No vomiting, or diarrhea. No GERD. Has some AM nausea on occasion and if takes a zofran it resolves. NEURO: No history of headaches, syncope, paralysis, seizures or tremors. If gets up quickly he will get dizzy. EXAM: BP 102/50 Pulse (!) 56 Temp 37 ?C (98.6 ?F) (Tympanic) Resp 16 Wt 82.6 kg (182 lb) BMI 28.51 kg/m? Last 4 Encounter Wt Readings: Date: Wt: 01/26/2018 82.6 kg (182 lb) 01/20/2018 82.1 kg (181 lb) 01/02/2018 81.4 kg (179 lb 8 oz) 12/23/2017 81.4 kg (179 lb 8 oz) General Appearance: Well appearing, alert, in no acute distress, well-hydrated, well nourished.. Neck: Supple, no adenopathy; thyroid symmetric, normal size, no bruits. Lungs: Lungs clear to auscultation. No wheezing, rhonchi, rales. Heart: RRR without murmur, gallop, or rubs. No ectopy. Abdomen: Normal abdominal exam, Abdomen soft, non-tender. Bowel sounds normal. No masses, organomegaly. Extremities: No deformities, edema, skin discoloration. Peripheral Pulses: Normal. Health Maintenance List DTAP,TDAP,TD(1 - Tdap) due on 1958 COLORECTAL CANCER SCREENING,SEE MODIFIER due on 1989 ADULT PREVNAR-13 due on 02/08/2004 PNEUMOVAX AGE 65 AND OVER WITH 5YR LOOKBACK(1) due on 02/08/2004 INFLUENZA(Season Ended) due on 05/16/2018 DIABETES SCREEN due on 11/17/2020 LIPID SCREEN due on 01/30/2022 PROSTATE CANCER SCREENING DISCUSSION Completed Data reviewed A/P ASSESSMENT/PLAN: 1. Hyperlipidemia, mixed - ICD9: 272.2, ICD10: E78.2 (primary diagnosis) - to be determined upon return of lab results - Continue current medication. - Encouraged following a low fat, low cholesterol diet. - Discussed the benefits of regular aerobic exercise and weight loss. - Encouraged following a low carbohydrate, healthy oil intake diet. 2. Coronary artery disease involving [place] coronary artery of [place] heart without angina pectoris - ICD9: 414.01, ICD10: I25.10 - Clinically stable No changes, cont cardio f/u 3. History of DVT (deep vein thrombosis) - ICD9: V12.51, ICD10: Z86.718 On eliquis and advised to stop as of 03/15/2018 4. Elevated blood sugar - ICD9: 790.29, ICD10: R73.9 Check - HGB A1C 5. Malignant neoplasm of colon, unspecified part of colon (HCC) - ICD9: 153.9, ICD10: C18.9 - cont oncology f/u 6. Malignant neoplasm of sigmoid colon (HCC) - ICD9: 153.3, ICD10: C18.7 - as above 7. Malignant neoplasm of ascending colon (HCC) - ICD9: 153.6, ICD10: C18.2 - as above 8. Colostomy care (HCC) - ICD9: V55.3, ICD10: Z43.3 - Cont routine care 9. Colostomy in place ([facility]) - ICD9: V44.3, ICD10: Z93.3 - Cont routine care 10. Arthritis, lumbar spine ([facility]) - ICD9: 721.3, ICD10: M46.96 - Cont current meds. 11. Malnutrition of mild degree ([facility]) - ICD9: 263.1, ICD10: E44.1 - Clinically stable no changes. f/u 6 months complete PE Vishal Jones MD CNOV Observed: 01/26/2018 Status: COMPLETED Source: [place] 1:40 PM [facility] REPOSITORY Office Visit (FAMPWS) SAM HAGEN ([id number]) 1940 M Date Time Provider Department 01/26/18 1:40 PM [facility] During your visit today, we recorded the following information about you: Temperature Pulse Respiration Blood pressure 98.6 degrees 56/minute 16/minute 102/50 Weight 82.6 kg Vishal Jones 01/26/2018 9:32 PM Signed Chief Complaint Patient presents with: Recheck: 4 month F/U HPI Sam Hagen is a 77 year old male who presents here today for Chronic Medical Conditions.. Patient with Hx as reviewed and documented below. Has been doing ok. Ran out of his gabapentin for a few days and really noted how much better he had been feeling with beeing on it. Past medical history, appointments, medications, allergies reviewed. 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 Bagley - Colon cancer ([facility]) 06/30/[address] Greenberg, Had extension into the bladder wall and hd a partial cystectomy. - Colostomy care ([facility]) 09/25/2017 - Colostomy in place (HCC) 09/25/2017 - Coronary artery disease involving [place] coronary artery 09/25/[address] 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 and other lower urinary tract symptoms (LUTS) Previous Surgical History PAST SURGICAL HISTORY Procedure Laterality Date - CARPAL TUNNEL Bilateral - CATARACT EXTRACTION HX Right - ECHOCARDIOGRAM 07/05/2017 - LAP REPAIR INTIAL INGUINAL HERNIA 01/11/09 - PAST SURGICAL HISTORY OF 07/03/2017 COLECTOMY ABDOMINAL W/O PROCTECTOMY W/ ILEOSTOMY/ILEOPROCTOSTOMY, TOTAL - REPAIR COMPL ROTATOR CUFF AVULSN,CHR left - REPAIR SLIDING INGUINAL HERNIA LIH - REPAIR UMBILICAL ANNA,5+Y/O,REDUC 01/11/09 - SIGMOIDOSCOPY 06/29/2017 Family History FAMILY HISTORY Problem Relation Age of Onset - Prostate Cancer Father - Cancer Father skin - Heart Mother - Stroke Mother - Diabetes Mother Patient Allergies ALLERGIES No Known Allergies Current Medications Current Outpatient Prescriptions on File Prior to Visit: HYDROcodone-Acetaminophen (NORCO) 10-325 mg per tablet Take 1 tablet by mouth every 6 hours as needed for up to 30 days.Earliest Fill Date: 01/19/18 isosorbide mononitrate ER (IMDUR) 60 mg 24 hr tablet Take 1 tablet by mouth once daily. simvastatin (ZOCOR) 40 mg tablet Take 1 tablet by mouth daily at bedtime. atenolol (TENORMIN) 25 mg tablet Take 0.5 tablets by mouth once daily. apixaban (ELIQUIS) 5 mg tab(s) Take 1 tablet by mouth twice daily. gabapentin (NEURONTIN) 300 mg capsule Take 1 capsule by mouth three times daily for 180 days. finasteride (PROSCAR) 5 mg tablet Take 5 mg by mouth once daily. Omeprazole (PRILOSEC) 40 mg capsule Take 1 capsule by mouth once daily. COMPOUNDED PRESCRIPTION Colostomy Care Supplies; 1 months worth with 11 refills (fax # [phone])3M Cavilon No-sting Barrier Film Wipes # [id number] Qty 1 box of 50Stomahesive Paste 2 oz tube # [id number] Qty 1 tube COMPOUNDED PRESCRIPTION Colostomy Care Supplies; 1 months worth with 11 refills (fax # [phone])Adapt Oval Convex Ring 7/8 x 1 /2 # [id number] Qty 1 box 10 eachPremier 1-Piece Soft Convvex Drainable pouch Cut to fit -09/16 Qty 2 box 5 each Loperamide HCl (IMODIUM A-D) 2 mg tab Take 2 mg by mouth as needed. ondansetron (ZOFRAN) 8 mg tablet Take 1 tablet by mouth every 8 hours as needed for Nausea/Vomiting. Indications: CANCER CHEMOTHERAPY-INDUCED NAUSEA AND VOMITING No current facility-administered medications on file prior to visit. Social History Social History Marital status: Spouse name: Years of education: Number of children: Social History Main Topics Smoking status: Never Smoker Smokeless tobacco: Current User Types: Chew Alcohol use: Yes Comment: rare Drug use: No Review of Symptoms REVIEW OF SYSTEMS GENERAL: No weight loss, malaise or fevers NECK: Negative for lumps, goiter, pain and significant neck swelling RESPIRATORY: Negative for cough, hemoptysis, wheezing, COPD, dyspnea or shortness of breath CARDIOVASCULAR: Negative for chest pain, leg swelling, hypertension, CHF or palpitations GI: No vomiting, or diarrhea. No GERD. Has some AM nausea on occasion and if takes a zofran it resolves. NEURO: No history of headaches, syncope, paralysis, seizures or tremors. If gets up quickly he will get dizzy. EXAM: BP 102/50 Pulse (!) 56 Temp 37 ?C (98.6 ?F) (Tympanic) Resp 16 Wt 82.6 kg (182 lb) BMI 28.51 kg/m? Last 4 Encounter Wt Readings: Date: Wt: 01/26/2018 82.6 kg (182 lb) 01/20/2018 82.1 kg (181 lb) 01/02/2018 81.4 kg (179 lb 8 oz) 12/23/2017 81.4 kg (179 lb 8 oz) General Appearance: Well appearing, alert, in no acute distress, well-hydrated, well nourished.. Neck: Supple, no adenopathy; thyroid symmetric, normal size, no bruits. Lungs: Lungs clear to auscultation. No wheezing, rhonchi, rales. Heart: RRR without murmur, gallop, or rubs. No ectopy. Abdomen: Normal abdominal exam, Abdomen soft, non-tender. Bowel sounds normal. No masses, organomegaly. Extremities: No deformities, edema, skin discoloration. Peripheral Pulses: Normal. Health Maintenance List DTAP,TDAP,TD(1 - Tdap) due on 1958 COLORECTAL CANCER SCREENING,SEE MODIFIER due on 1989 ADULT PREVNAR-13 due on 02/08/2004 PNEUMOVAX AGE 65 AND OVER WITH 5YR LOOKBACK(1) due on 02/08/2004 INFLUENZA(Season Ended) due on 05/16/2018 DIABETES SCREEN due on 11/17/2020 LIPID SCREEN due on 01/30/2022 PROSTATE CANCER SCREENING DISCUSSION Completed Data reviewed A/P ASSESSMENT/PLAN: 1. Hyperlipidemia, mixed - ICD9: 272.2, ICD10: E78.2 (primary diagnosis) - to be determined upon return of lab results - Continue current medication. - Encouraged following a low fat, low cholesterol diet. - Discussed the benefits of regular aerobic exercise and weight loss. - Encouraged following a low carbohydrate, healthy oil intake diet. 2. Coronary artery disease involving [place] coronary artery of [place] heart without angina pectoris - ICD9: 414.01, ICD10: I25.10 - Clinically stable No changes, cont cardio f/u 3. History of DVT (deep vein thrombosis) - ICD9: V12.51, ICD10: Z86.718 On eliquis and advised to stop as of 03/15/2018 4. Elevated blood sugar - ICD9: 790.29, ICD10: R73.9 Check - HGB A1C 5. Malignant neoplasm of colon, unspecified part of colon (HCC) - ICD9: 153.9, ICD10: C18.9 - cont oncology f/u 6. Malignant neoplasm of sigmoid colon (HCC) - ICD9: 153.3, ICD10: C18.7 - as above 7. Malignant neoplasm of ascending colon (HCC) - ICD9: 153.6, ICD10: C18.2 - as above 8. Colostomy care (HCC) - ICD9: V55.3, ICD10: Z43.3 - Cont routine care 9. Colostomy in place (HCC) - ICD9: V44.3, ICD10: Z93.3 - Cont routine care 10. Arthritis, lumbar spine (HCC) - ICD9: 721.3, ICD10: M46.96 - Cont current meds. 11. Malnutrition of mild degree (HCC) - ICD9: 263.1, ICD10: E44.1 - Clinically stable no changes. f/u 6 months complete PE MD Robert Parks Jeffrey A 01/26/2018 2:24 PM Signed Please get fasting labs and urine test in the near future. Referring Provider: VISHAL JONES [[id number]] Allergies As of Date: 01/26/2018 (No Known Allergies) Date Reviewed: 01/26/2018 Reviewed by: Vishal Jones - Fully Assessed Reason for Visit: Recheck [92] Cmt: 4 month F/U Primary Visit Diagnosis:Hyperlipidemia, mixed [E78.2] Other Visit Diagnoses: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] History of DVT (deep vein thrombosis) [Z86.718] Elevated blood sugar [R73.9] Malignant neoplasm of colon, unspecified part of colon (HCC) [C18.9] Malignant neoplasm of sigmoid colon (HCC) [C18.7] Malignant neoplasm of ascending colon (HCC) [C18.2] Colostomy care (HCC) [Z43.3] Colostomy in place (HCC) [Z93.3] Arthritis, lumbar spine (HCC) [M46.96] Malnutrition of mild degree (HCC) [E44.1] Order(s):HGB A1C [[id number]] Order #: [id number] FUTURE Prescriptions as of 01/26/2018 Sig: TAMSULOSIN 0.4 MG CAPSULE FLOMAX 0.4 MG CAPS MELATONIN 3 MG TABLET Take 3 mg by mouth daily at b* CALCIUM 600 + D(3) ORAL Take by mouth once daily. PROSTATE ORAL Take by mouth once daily. OMEGA 3 FISH OIL ORAL Take by mouth once daily. IRON 160 MG-METHYLFOLATE 1 MG* Take by mouth once daily. HYDROCODONE 10 MG-ACETAMINOPH* Take 1 tablet by mouth every * ISOSORBIDE MONONITRATE ER 60 * Take 1 tablet by mouth once d* SIMVASTATIN 40 MG TABLET Take 1 tablet by mouth daily * ATENOLOL 25 MG TABLET Take 0.5 tablets by mouth onc* APIXABAN 5 MG TABLET Take 1 tablet by mouth twice * GABAPENTIN 300 MG CAPSULE Take 1 capsule by mouth three* FINASTERIDE 5 MG TABLET Take 5 mg by mouth once daily. OMEPRAZOLE 40 MG CAPSULE,ROHIT* Take 1 capsule by mouth once * COMPOUNDED PRESCRIPTION Colostomy Care Supplies; 1 m* COMPOUNDED PRESCRIPTION Colostomy Care Supplies; 1 m* LOPERAMIDE 2 MG TABLET Take 2 mg by mouth as needed. ONDANSETRON HCL 8 MG TABLET Take 1 tablet by mouth every * Problem List As Of Date 01/26/2018 Noted Resolved Bowel obstruction (HCC) [K56.609] INVALID FOR*07/10/2017 Other specified abnormal immunological findings*INVALID FOR* More... Colon cancer (HCC) [C18.9] INVALID FOR* Priority: B More... 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 Arthritis of right hip [M16.11] INVALID FOR* Priority: M Colostomy care (HCC) [Z43.3] INVALID FOR* Priority: C Colostomy in place ([facility]) [Z93.3] INVALID FOR* Priority: C History of DVT (deep vein thrombosis) [Z86.718] INVALID FOR* Priority: A More... Bladder stone [N21.0] INVALID FOR* Priority: C More... Coronary artery disease involving [place] rivera*INVALID FOR* Priority: A More... H/O heart artery stent [Z95.5] INVALID FOR* Priority: B More... Nerve pain [M79.2] INVALID FOR* Priority: M More... Hyperlipidemia, mixed [E78.2] INVALID FOR* Priority: A Chronic midline back pain [M54.9, G89.29] INVALID FOR* Priority: M Other instructions from your clinician: Please get fasting labs and urine test in the near future. Disposition: Return in about 6 months (around 07/29/2018) for complete /medicare wellness. Follow-up and Disposition History Recorded Encounter Status:Closed by VISHAL JONES on 01/26/18 PROGRESS Observed: 01/20/2018 Status: COMPLETED Source: [place] 3:47 PM [facility] REPOSITORY HNO ID: [id number] Author: Allyson Lowery ([place]) Service: (none) Author Type: Tax Economist Type: Progress Notes Filed: 01/20/2018 3:48 PM Note Text: SOCIAL WORK FOLLOW UP NOTE: [facility] Date of service: January 20, 2018 Sam Hagen is being seen for a follow up social work visit. Today's visit includes: patient TOPICS ADDRESSED: Finances; ROSA met with patient to give him information on what number to call to apply for assistance for BMS program for those with private insurance. Patient agreeable and is unsure if he received a letter with this information, which he should have. Patient will look into this when he gets home and inform ROSA of any assistance that is needed. PLAN: Assist with financial support applications and Continue follow up as needed F/U APPOINTMENT: THEE Flaherty BMP Collected: 01/20/2018 Status: F Source: [place] 9:36 AM [facility] [place] REPOSITORY TYPE CODE TESTS RESULT OUT OF REFERENCE UNITS RANGE LAB NAWB 135-146 mmol/L Sodium, Whole 140 Bld LAB K1WB 3.5-5.0 mmol/L Potassium,Who 4.4 le Bld LAB CLWB 98-110 mmol/L Chloride, 103 Whole Bld LAB ICAWB 1.08-1.30 mmol/L Ionized 1.20 Calcium, WB Result Comment: Please note: This value represents ionized calcium not total calcium. LAB CO2WB 23-32 mmol/L TCO2, Whole 24 Blood LAB GLUWB 65-100 mg/dL High Glucose, 139 Whole Bld LAB BUNWB 10-25 mg/dL BUN, Whole 15 Blood LAB BCRET 0.70-1.40 mg/dL Creatinine,Wh 0.90 ole Bld LAB AGAPWB 0-15 mmol/L Anion Gap, 13 Whole Bld LAB GFRAA eGFR- >60 Amer. LAB GFRNAA . eGFR-All >60 Other Races Result Comment: eGFR (Estimated GFR) Units of measure: mL/min/1.73 meters squared eGFR is derived from the reexpressed MDRD Study equation using the following parameters: serum creatinine, age, gender and race. The creatinine assay has been calibrated to be traceable to IDMS. An eGFR <60 mL/min/1.73m2 for >3 months is consistent with chronic kidney disease. Refer to KDOQI guidelines for clinical interpretation. In patients with unstable renal function, e.g. those with acute kidney injury, the eGFR may not accurately reflect actual GFR. [place] ABS GR + CBC Collected: 01/20/2018 Status: F Source: [place] 9:36 AM [facility] REPOSITORY TYPE CODE TESTS RESULT OUT OF REFERENCE UNITS RANGE LAB WWBC 3.70-11.00 k/uL [place] WBC 5.65 LAB WRBC 4.20-6.00 m/uL Low [place] RBC 3.62 LAB WHGB 13.0-17.0 g/dL Low [place] Hemoglobin 10.6 LAB WHCT 39.0-51.0 % Low [place] Hematocrit 34.4 LAB WMCV 80.0-100.0 fL [place] MCV 95.0 LAB WMCH 26.0-34.0 pg [place] MCH 29.3 LAB WMCHC 30.5-36.0 g/dL [place] MCHC 30.8 LAB WRDW 11.5-15.0 % [place] High RDW 18.4 LAB WPLT 150-400 k/uL Low [place] Platelet Cnt 135 LAB WMPV 9.0-12.7 fL Low [place] MPV 8.3 Result Comment: Test performed at: [facility] [place], [address] [place] [address]. LAB ABGRAN 1.45-7.50 k/uL Abs[place] Gran 3.64 Count CNSW Observed: 01/20/2018 Status: COMPLETED Source: [place] 12:00 AM [facility] REPOSITORY Social Work (HEMAWS) HAGENSAM HOWARD ([id number]) 1940 M Date Time Provider Department 01/20/18 ALLYSON LOWERY) STEPHANIE During your visit today, we recorded the following information about you: Allyson Lowery) 01/20/2018 3:48 PM Signed SOCIAL WORK FOLLOW UP NOTE: [facility] Date of service: January 20, 2018 Sam Hagen is being seen for a follow up social work visit. Today's visit includes: patient TOPICS ADDRESSED: Finances; ROSA met with patient to give him information on what number to call to apply for assistance for BMS program for those with private insurance. Patient agreeable and is unsure if he received a letter with this information, which he should have. Patient will look into this when he gets home and inform ROSA of any assistance that is needed. PLAN: Assist with financial support applications and Continue follow up as needed F/U APPOINTMENT: THEE Flaherty Allergies As of Date: 01/20/2018 (No Known Allergies) Date Reviewed: 01/20/2018 Reviewed by: Mariposa Barcenas (Rn), RN - Fully Assessed Reason for Visit: Social Work Services [507] Cmt: patient assistance Prescriptions as of 01/20/2018 Sig: HYDROCODONE 10 MG-ACETAMINOPH* Take 1 tablet by mouth every * ISOSORBIDE MONONITRATE ER 60 * Take 1 tablet by mouth once d* SIMVASTATIN 40 MG TABLET Take 1 tablet by mouth daily * ATENOLOL 25 MG TABLET Take 0.5 tablets by mouth onc* APIXABAN 5 MG TABLET Take 1 tablet by mouth twice * GABAPENTIN 300 MG CAPSULE Take 1 capsule by mouth three* FINASTERIDE 5 MG TABLET Take 5 mg by mouth once daily. OMEPRAZOLE 40 MG CAPSULE,ROHIT* Take 1 capsule by mouth once * COMPOUNDED PRESCRIPTION Colostomy Care Supplies; 1 m* COMPOUNDED PRESCRIPTION Colostomy Care Supplies; 1 m* LOPERAMIDE 2 MG TABLET Take 2 mg by mouth as needed. ONDANSETRON HCL 8 MG TABLET Take 1 tablet by mouth every * Problem List As Of Date 01/20/2018 Noted Resolved Bowel obstruction (HCC) [K56.609] INVALID FOR*07/10/2017 Other specified abnormal immunological findings*INVALID FOR* More... Colon cancer (HCC) [C18.9] INVALID FOR* Priority: B More... 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 Arthritis of right hip [M16.11] INVALID FOR* Priority: M Colostomy care ([facility]) [Z43.3] INVALID FOR* Priority: C Colostomy in place ([facility]) [Z93.3] INVALID FOR* Priority: C History of DVT (deep vein thrombosis) [Z86.718] INVALID FOR* Priority: A More... Bladder stone [N21.0] INVALID FOR* Priority: C More... Coronary artery disease involving [place] rivera*INVALID FOR* Priority: A More... H/O heart artery stent [Z95.5] INVALID FOR* Priority: B More... Nerve pain [M79.2] INVALID FOR* Priority: M More... Hyperlipidemia, mixed [E78.2] INVALID FOR* Priority: A Chronic midline back pain [M54.9, G89.29] INVALID FOR* Encounter Status:Closed by ALLYSON LOWERY on 01/20/18 CNPTOUTREACH Observed: 01/13/2018 Status: COMPLETED Source: [place] 12:00 [facility] REPOSITORY Patient Outreach (FAMPST) ANAISSAM Curry ([id number]) 1940 M Date Time Provider Department 01/13/18 [facility] During your visit today, we recorded the following information about you: Allergies As of Date: 01/13/2018 (No Known Allergies) Date Reviewed: 01/07/2018 Reviewed by: Talon Curry (Rn) DIXIE Allan - Fully Assessed Primary Visit Diagnosis:Hyperlipidemia, mixed [E78.2] Other Visit Diagnosis:Medication management [Z79.899] Order(s):LIPID PANEL BASIC [SQLIPB] Order #: [id number] FUTURE URINALYSIS WITH MICROSCOPIC [SQUAWMIC] Order #: [id number] FUTURE Prescriptions as of 01/13/2018 Sig: ISOSORBIDE MONONITRATE ER 60 * Take 1 tablet by mouth once d* SIMVASTATIN 40 MG TABLET Take 1 tablet by mouth daily * X ATENOLOL 25 MG TABLET Take 0.5 tablets by mouth onc* X APIXABAN 5 MG TABLET Take 1 tablet by mouth twice * GABAPENTIN 300 MG CAPSULE Take 1 capsule by mouth three* X HYDROCODONE 10 MG-ACETAMINOPH* Take 1 tablet by mouth every * FINASTERIDE 5 MG TABLET Take 5 mg by mouth once daily. OMEPRAZOLE 40 MG CAPSULE,ROHIT* Take 1 capsule by mouth once * COMPOUNDED PRESCRIPTION Colostomy Care Supplies; 1 m* COMPOUNDED PRESCRIPTION Colostomy Care Supplies; 1 m* LOPERAMIDE 2 MG TABLET Take 2 mg by mouth as needed. X ONDANSETRON HCL 8 MG TABLET Take 1 tablet by mouth every * Problem List As Of Date 01/13/2018 Noted Resolved Bowel obstruction (HCC) [K56.609] INVALID FOR*07/10/2017 Other specified abnormal immunological findings*INVALID FOR* More... Colon cancer (HCC) [C18.9] INVALID FOR* Priority: B More... 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 Arthritis of right hip [M16.11] INVALID FOR* Priority: M Colostomy care (HCC) [Z43.3] INVALID FOR* Priority: C Colostomy in place (HCC) [Z93.3] INVALID FOR* Priority: C History of DVT (deep vein thrombosis) [Z86.718] INVALID FOR* Priority: A More... Bladder stone [N21.0] INVALID FOR* Priority: C More... Coronary artery disease involving [place] river[place]*INVALID FOR* Priority: A More... H/O heart artery stent [Z95.5] INVALID FOR* Priority: B More... Nerve pain [M79.2] INVALID FOR* Priority: M More... Hyperlipidemia, mixed [E78.2] INVALID FOR* Priority: A Chronic midline back pain [M54.9, G89.29] INVALID FOR* Encounter Status:Closed by JULIANNE VILLAUSER on 06/26/18 PROGRESS Observed: 01/02/2018 Status: COMPLETED Source: [place] 12:58 PM [facility] [place] REPOSITORY O ID: [id number] Author: Allyson Lowery (Sw) Service: (none) Author Type: Tax Economist Type: Progress Notes Filed: 01/02/2018 12:59 PM Note Text: SOCIAL WORK FOLLOW UP NOTE: [facility] Date of service: January 02, 2018 Sam Hagen is being seen for a follow up social work visit. Today's visit includes: patient TOPICS ADDRESSED: Finances; ROSA received three faxes from [employer] stating patient was approved, patient was denied, and patient was currently enrolled and needed to reapply. [place] [facility] [place] and was told patient was denied since his secondary insurance is considered private. We will need to call [phone] to apply for their assistance. Letter has been mailed to patient with this information from [facility] [place]. PLAN: Assist with financial support applications and Continue follow up as needed F/U APPOINTMENT: THEE Flaherty PROGRESS Observed: 01/02/2018 Status: COMPLETED Source: [place] 11:40 AM [facility] REPOSITORY HNO ID: [id number] Author: Trevor Rodriguez Service: (none) Author Type: Physician Type: Progress Notes Filed: 01/03/2018 8:29 AM Note Text: Diagnosis: 1) Stage III colon cancer. ? HPI: The patient is 77 yo male with PMH significant for CAD ([place] 1993; treated with PCI balloon angioplasty; no stent) and prostate cancer (tx with radiation x44 fx ~6-8 years ago). ? He presented to [facility] with symptoms of bowel obstruction. He underwent attempted colonoscopy but the procedure was aborted when the scope was not able to be passed through the rectum/sigmoid area. He was transferred to [facility]. He ultimately underwent a total colectomy along with end ileostomy and partial bladder resection on 07/03/2017. He was noted to have 2 foci of tumor one in the cecum and one in the sigmoid colon. The latter tumor was adherent to the bladder invasive to the bladder wall. ? 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 ?TUMOR PENETRATES TO THE SURFACE OF THE VISCERAL PERITONEUM. SURGICAL MARGINS NEGATIVE. 1 OF 13 LYMPH NODES POSITIVE FOR METASTATIC ADENOCARCINOMA AND 1 TUMOR DEPOSIT PRESENT. PERINEURAL AND LYMPHOVASCULAR INVASION PRESENT. B) SMALL INTESTINE, TERMINAL ILEUM, ILEOSTOMY - BENIGN SMALL INTESTINAL TISSUE. C) BLADDER, PARTIAL CYSTECTOMY - FOCAL INVOLVEMENT OF THICK SMOOTH MUSCLE BUNDLES BY ADENOCARCINOMA. ?NO UROTHELIUM PRESENT. D) COLON, SIGMOID, SEGMENTAL RESECTION - INVASIVE LOW GRADE (MODERATELY DIFFERENTIATED) ADENOCARCINOMA (3 CM IN GREATEST DIMENSION). ?SURGICAL MARGINS APPEAR NEGATIVE. BENIGN TRANSECTED BENIGN VAS DEFERENS (2) AND THICK SMOOTH MUSCLE SUGGESTIVE OF BLADDER. 1 OF 9 LYMPH NODES POSITIVE FOR METASTATIC ADENOCARCINOMA ? Presents for ongoing oncologic management. Evaluation for cycle #6. ? Current therapy: 1) Infusional 5FU. ? Interim history: Remains concerned about stomal hernia. No pain or bleeding from hernia. Tingling around edges. Reviewed KP questions--I asked about nausea and he says, very little. Tingling and peeling of fingertips--pre-exising. Appetite is great. He is tolerating chemotherapy with no worsening neuropathy after Oxaliplatin discontinued. patient has no nausea, vomiting or diarrhea or stomatitis. His blood pressure remained low since starting Neurontin. PMH, medications and allergies personally reviewed by me today. Any changes documented in appropriate section. ? ROS: Constitutional: Denies episodes of fever and night sweats. Not significantly fatigued. Neuro: Denies SHERIFF, vertigo, dizziness and imbalance. He has symptoms of bilateral carpal tunnel syndrome. No neuropathy of the lower extremities. HEENT: No recent change in voice, vision or hearing. Resp: Denies hemoptysis. CVS: Denies PND and orthopnea. GI: Denies dysgeusia. Denies symptoms of stomatitis. Denies dysphagia and odynophagia. Endo: Denies hot flashes. Denies polyuria and polydipsia. Denies heat and cold intolerance. Derm: Denies rash. Denies jaundice and diffuse pruritis. Heme: See above. Psych: Normal mood. ? PHYSICAL EXAM: Well-appearing and in no acute distress. BP 90/47 Pulse 69 Temp (Src) 97.2 (Temporal Artery) Wt 179 lb 8 oz (81.4kg) EYES: Sclerae are anicteric bilaterally. ENT: Oral mucosa is unremarkable. NECK: Supple. LYMPHATIC: There is no palpable cervical, supraclavicular, axillary adenopathy. RESPIRATORY: Inspiratory breath sounds are of diminished intensity in all norris. CARDIOVASCULAR: Rhythm is regular. Normal intensity S1/S2. There is no gallop or murmur. ABDOMEN: The abdomen is nondistended. Midline incision well- healed. Ostomy appears healthy with area of surrounding reducible hernia. Extremities: Trace edema left. SKIN: No jaundice or rash. Peeling around fingertip pads. 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 No focal motor weakness. ? LABS: Component Latest Ref Rng AND Units 01/02/2018 WBC, [place] 3.70 - 11.00 k/uL 7.84 RBC, [place] 4.20 - 6.00 m/uL 4.00 (L) Hemoglobin, [place] 13.0 - 17.0 g/dL 11.7 (L) Hematocrit, [place] 39.0 - 51.0 % 37.3 (L) MCV, [place] 80.0 - 100.0 fL 93.3 MCH, [place] 26.0 - 34.0 pg 29.3 MCHC, [place] 30.5 - 36.0 g/dL 31.4 RDW, [place] 11.5 - 15.0 % 19.2 (H) Platelet Cnt, [place] 150 - 400 k/uL 173 MPV, [place] 9.0 - 12.7 fL 8.6 (L) Absol Gran Count 1.45 - 7.50 k/uL 5.22 Sodium, Whole Blood (iSTAT) 135 - 146 mmol/L 143 Potassium, Whole Blood (iSTAT) 3.5 - 5.0 mmol/L 4.7 Chloride, Whole Blood (iSTAT) 98 - 110 mmol/L 105 Ionized Calcium, WB (iSTAT) 1.08 - 1.30 mmol/L 1.21 TCO2, Whole Blood (iSTAT) 23 - 32 mmol/L 26 Glucose, Whole Blood (iSTAT) 65 - 100 mg/dL 125 (H) BUN, Whole Blood (iSTAT) 10 - 25 mg/dL 17 Creatinine, Whole Blood (iSTAT) 0.70 - 1.40 mg/dL 1.10 Anion Gap, Whole Blood (iSTAT) 0 - 15 mmol/L 12 eGFR- >60 eGFR-All Other Races . >60 Component Latest Ref Rng AND Units 01/02/2018 Albumin 3.9 - 4.9 g/dL 4.3 Bilirubin, Total 0.2 - 1.3 mg/dL 0.3 Bilirubin, Conjug <0.2 mg/dL <0.2 Alkaline Phosphatase 36 - 108 U/L 76 AST 14 - 40 U/L 28 ALT 10 - 54 U/L 28 Protein, Total 6.3 - 8.0 g/dL 7.0 ASSESSMENT/PLAN: (C18.2) Malignant neoplasm of ascending colon (HCC) (primary encounter diagnosis) (C18.7) Malignant neoplasm of sigmoid colon (HCC) Assessment: -mpT4a pN1 M0 adenocarcinoma with mucinous features of the ascending colon. There was lymphovascular as well as perineural invasion observed. One tumor deposit. One of 13 nodes. -mpT4b pN1 M0 adenocarcinoma of the sigmoid colon. Focal involvement of bladder. Lymphovascular invasion was observed. No tumor deposits. One of 9 nodes involved. - Tolerating infusional 5-FU.; Peripheral neuropathy improved after stopping Oxaliplatin - consider radiation oncology opinion after completing chemotherapy. Plan: - continue infusional 5-FU next week. ? (Z86.718) History of DVT (deep vein thrombosis) Assessment: -He is tolerating anticoagulation very well. Plan: -Continue anticoagulation for approximately 3 months beyond chemotherapy. ? (K21.9) Gastro-esophageal reflux disease without esophagitis Assessment: - improved Plan: - continue Omeprazole (PRILOSEC) 40 mg capsule once daily ? (I95.2) Hypotension. Assessment: - hypotensive since starting Neurontin Plan: - Decreased atenolol 12.5mg once daily. Trevor Rodriguez MD ? CNOVSP Observed: 01/02/2018 Status: COMPLETED Source: [place] 11:40 AM [facility] REPOSITORY Visit (SP) Office (STEPHANIE) SAM HAGEN ([id number]) 1940 M Date Time Provider Department 01/02/18 11:40 AM TREVOR RODRIGUEZ During your visit today, we recorded the following information about you: Temperature Pulse Blood pressure Weight 97.2 degrees 69/minute 90/47 81.4 kg Trevor Rodriguez MD 01/03/2018 8:29 AM Signed Diagnosis: 1) Stage III colon cancer. ? HPI: The patient is 77 yo male with PMH significant for CAD ([place] 1993; treated with PCI balloon angioplasty; no stent) and prostate cancer (tx with radiation x44 fx ~6-8 years ago). ? He presented to [facility] with symptoms of bowel obstruction. He underwent attempted colonoscopy but the procedure was aborted when the scope was not able to be passed through the rectum/sigmoid area. He was transferred to [facility]. He ultimately underwent a total colectomy along with end ileostomy and partial bladder resection on 07/03/2017. He was noted to have 2 foci of tumor one in the cecum and one in the sigmoid colon. The latter tumor was adherent to the bladder invasive to the bladder wall. ? 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 ?TUMOR PENETRATES TO THE SURFACE OF THE VISCERAL PERITONEUM. SURGICAL MARGINS NEGATIVE. 1 OF 13 LYMPH NODES POSITIVE FOR METASTATIC ADENOCARCINOMA AND 1 TUMOR DEPOSIT PRESENT. PERINEURAL AND LYMPHOVASCULAR INVASION PRESENT. B) SMALL INTESTINE, TERMINAL ILEUM, ILEOSTOMY - BENIGN SMALL INTESTINAL TISSUE. C) BLADDER, PARTIAL CYSTECTOMY - FOCAL INVOLVEMENT OF THICK SMOOTH MUSCLE BUNDLES BY ADENOCARCINOMA. ?NO UROTHELIUM PRESENT. D) COLON, SIGMOID, SEGMENTAL RESECTION - INVASIVE LOW GRADE (MODERATELY DIFFERENTIATED) ADENOCARCINOMA (3 CM IN GREATEST DIMENSION). ?SURGICAL MARGINS APPEAR NEGATIVE. BENIGN TRANSECTED BENIGN VAS DEFERENS (2) AND THICK SMOOTH MUSCLE SUGGESTIVE OF BLADDER. 1 OF 9 LYMPH NODES POSITIVE FOR METASTATIC ADENOCARCINOMA ? Presents for ongoing oncologic management. Evaluation for cycle #6. ? Current therapy: 1) Infusional 5FU. ? Interim history: Remains concerned about stomal hernia. No pain or bleeding from hernia. Tingling around edges. Reviewed KP questions--I asked about nausea and he says, ANDquot;very little.ANDquot; Tingling and peeling of fingertips--pre-exising. Appetite is ANDquot;great.ANDquot; He is tolerating chemotherapy with no worsening neuropathy after Oxaliplatin discontinued. patient has no nausea, vomiting or diarrhea or stomatitis. His blood pressure remained low since starting Neurontin. PMH, medications and allergies personally reviewed by me today. Any changes documented in appropriate section. ? ROS: Constitutional: Denies episodes of fever and night sweats. Not significantly fatigued. Neuro: Denies SHERIFF, vertigo, dizziness and imbalance. He has symptoms of bilateral carpal tunnel syndrome. No neuropathy of the lower extremities. HEENT: No recent change in voice, vision or hearing. Resp: Denies hemoptysis. CVS: Denies PND and orthopnea. GI: Denies dysgeusia. Denies symptoms of stomatitis. Denies dysphagia and odynophagia. Endo: Denies hot flashes. Denies polyuria and polydipsia. Denies heat and cold intolerance. Derm: Denies rash. Denies jaundice and diffuse pruritis. Heme: See above. Psych: Normal mood. ? PHYSICAL EXAM: Well-appearing and in no acute distress. BP 90/47 Pulse 69 Temp (Src) 97.2 (Temporal Artery) Wt 179 lb 8 oz (81.4kg) EYES: Sclerae are anicteric bilaterally. ENT: Oral mucosa is unremarkable. NECK: Supple. LYMPHATIC: There is no palpable cervical, supraclavicular, axillary adenopathy. RESPIRATORY: Inspiratory breath sounds are of diminished intensity in all norris. CARDIOVASCULAR: Rhythm is regular. Normal intensity S1/S2. There is no gallop or murmur. ABDOMEN: The abdomen is nondistended. Midline incision well- healed. Ostomy appears healthy with area of surrounding reducible hernia. Extremities: Trace edema left. SKIN: No jaundice or rash. Peeling around fingertip pads. 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 No focal motor weakness. ? LABS: Component Latest Ref Rng ANDamp; Units 01/02/2018 WBC, [place] 3.70 - 11.00 k/uL 7.84 RBC, [place] 4.20 - 6.00 m/uL 4.00 (L) Hemoglobin, [place] 13.0 - 17.0 g/dL 11.7 (L) Hematocrit, [place] 39.0 - 51.0 % 37.3 (L) MCV, [place] 80.0 - 100.0 fL 93.3 MCH, [place] 26.0 - 34.0 pg 29.3 MCHC, [place] 30.5 - 36.0 g/dL 31.4 RDW, [place] 11.5 - 15.0 % 19.2 (H) Platelet Cnt, [place] 150 - 400 k/uL 173 MPV, [place] 9.0 - 12.7 fL 8.6 (L) Absol Gran Count 1.45 - 7.50 k/uL 5.22 Sodium, Whole Blood (iSTAT) 135 - 146 mmol/L 143 Potassium, Whole Blood (iSTAT) 3.5 - 5.0 mmol/L 4.7 Chloride, Whole Blood (iSTAT) 98 - 110 mmol/L 105 Ionized Calcium, WB (iSTAT) 1.08 - 1.30 mmol/L 1.21 TCO2, Whole Blood (iSTAT) 23 - 32 mmol/L 26 Glucose, Whole Blood (iSTAT) 65 - 100 mg/dL 125 (H) BUN, Whole Blood (iSTAT) 10 - 25 mg/dL 17 Creatinine, Whole Blood (iSTAT) 0.70 - 1.40 mg/dL 1.10 Anion Gap, Whole Blood (iSTAT) 0 - 15 mmol/L 12 eGFR- ANDgt;60 eGFR-All Other Races . ANDgt;60 Component Latest Ref Rng ANDamp; Units 01/02/2018 Albumin 3.9 - 4.9 g/dL 4.3 Bilirubin, Total 0.2 - 1.3 mg/dL 0.3 Bilirubin, Conjug ANDlt;0.2 mg/dL ANDlt;0.2 Alkaline Phosphatase 36 - 108 U/L 76 AST 14 - 40 U/L 28 ALT 10 - 54 U/L 28 Protein, Total 6.3 - 8.0 g/dL 7.0 ASSESSMENT/PLAN: (C18.2) Malignant neoplasm of ascending colon (HCC) (primary encounter diagnosis) (C18.7) Malignant neoplasm of sigmoid colon (HCC) Assessment: -mpT4a pN1 M0 adenocarcinoma with mucinous features of the ascending colon. There was lymphovascular as well as perineural invasion observed. One tumor deposit. One of 13 nodes. -mpT4b pN1 M0 adenocarcinoma of the sigmoid colon. Focal involvement of bladder. Lymphovascular invasion was observed. No tumor deposits. One of 9 nodes involved. - Tolerating infusional 5-FU.; Peripheral neuropathy improved after stopping Oxaliplatin - consider radiation oncology opinion after completing chemotherapy. Plan: - continue infusional 5-FU next week. ? (Z86.778) History of DVT (deep vein thrombosis) Assessment: -He is tolerating anticoagulation very well. Plan: -Continue anticoagulation for approximately 3 months beyond chemotherapy. ? (K21.9) Gastro-esophageal reflux disease without esophagitis Assessment: - improved Plan: - continue Omeprazole (PRILOSEC) 40 mg capsule once daily ? (I95.2) Hypotension. Assessment: - hypotensive since starting Neurontin Plan: - Decreased atenolol 12.5mg once daily. Trevor Rodriguez MD ? Trevor Rodriguez MD 01/02/2018 11:50 AM Signed Decrease Atenolol 12.5 mg once daily. Referring Provider: SAM GREENBERG [[id number]] Allergies As of Date: 01/02/2018 (No Known Allergies) Date Reviewed: 01/02/2018 Reviewed by: Asha Prater - Fully Assessed Reason for Visit: Established Patient [175] Primary Visit Diagnosis:Malignant neoplasm of sigmoid colon (HCC) [C18.7] Other Visit Diagnoses:Malignant neoplasm of ascending colon (HCC) [C18.2] S/P total colectomy [Z90.49] Hypotension due to drugs [I95.2] Order(s):isosorbide mononitrate ER (IMDUR) 60 mg 24 hr tabletTake 1 tablet by mouth once daily.Disp: 30 tabletRfl: 0 simvastatin (ZOCOR) 40 mg tabletTake 1 tablet by mouth daily at bedtime.Disp: 30 tabletRfl: 0 atenolol (TENORMIN) 25 mg tabletTake 0.5 tablets by mouth once daily.Disp: 30 tabletRfl: 2 Level of Service: EST PATIENT VISIT LEVEL 4 [[id number]] Disposition: Return in about 4 weeks (around 01/30/2018). LOS history recorded Follow-up and Disposition History Recorded Prescriptions as of 01/02/2018 Sig: ISOSORBIDE MONONITRATE ER 60 * Take 1 tablet by mouth once d* SIMVASTATIN 40 MG TABLET Take 1 tablet by mouth daily * APIXABAN 5 MG TABLET Take 1 tablet by mouth twice * GABAPENTIN 300 MG CAPSULE Take 1 capsule by mouth three* HYDROCODONE 10 MG-ACETAMINOPH* Take 1 tablet by mouth every * FINASTERIDE 5 MG TABLET Take 5 mg by mouth once daily. OMEPRAZOLE 40 MG CAPSULE,ROHIT* Take 1 capsule by mouth once * COMPOUNDED PRESCRIPTION Colostomy Care Supplies; 1 m* COMPOUNDED PRESCRIPTION Colostomy Care Supplies; 1 m* LOPERAMIDE 2 MG TABLET Take 2 mg by mouth as needed. ONDANSETRON HCL 8 MG TABLET Take 1 tablet by mouth every * ATENOLOL 25 MG TABLET Take 0.5 tablets by mouth onc* Problem List As Of Date 01/02/2018 Noted Resolved Bowel obstruction (HCC) [K56.609] INVALID FOR*07/10/2017 Other specified abnormal immunological findings*INVALID FOR* More... Colon cancer (HCC) [C18.9] INVALID FOR* Priority: B More... 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 Arthritis of right hip [M16.11] INVALID FOR* Priority: M Colostomy care ([facility]) [Z43.3] INVALID FOR* Priority: C Colostomy in place ([facility]) [Z93.3] INVALID FOR* Priority: C History of DVT (deep vein thrombosis) [Z86.718] INVALID FOR* Priority: A More... Bladder stone [N21.0] INVALID FOR* Priority: C More... Coronary artery disease involving [place] rivera*INVALID FOR* Priority: A More... H/O heart artery stent [Z95.5] INVALID FOR* Priority: B More... Nerve pain [M79.2] INVALID FOR* Priority: M More... Hyperlipidemia, mixed [E78.2] INVALID FOR* Priority: A Chronic midline back pain [M54.9, G89.29] INVALID FOR* Other instructions from your clinician: Decrease Atenolol 12.5 mg once daily. Encounter Status:Closed by TREVOR RODRIGUEZ MD on 01/03/18 HUGO ABS GR + CBC Collected: 01/02/2018 Status: F Source: [place] 11:03 AM [facility] REPOSITORY TYPE CODE TESTS RESULT OUT OF REFERENCE UNITS RANGE LAB WWBC 3.70-11.00 k/uL [place] WBC 7.84 LAB WRBC 4.20-6.00 m/uL Low [place] RBC 4.00 LAB WHGB 13.0-17.0 g/dL Low [place] Hemoglobin 11.7 LAB WHCT 39.0-51.0 % Low [place] Hematocrit 37.3 LAB WMCV 80.0-100.0 fL [place] MCV 93.3 LAB WMCH 26.0-34.0 pg [place] MCH 29.3 LAB WMCHC 30.5-36.0 g/dL [place] MCHC 31.4 LAB WRDW 11.5-15.0 % [place] High RDW 19.2 LAB WPLT 150-400 k/uL [place] Platelet Cnt 173 LAB WMPV 9.0-12.7 fL Low [place] MPV 8.6 Result Comment: Test performed at: [facility] [place], [address] [place] [address]. LAB ABGRAN 1.45-7.50 k/uL Absol Gran 5.22 Count [place] ISTAT BMP Collected: 01/02/2018 Status: F Source: [place] 11:03 AM [facility] REPOSITORY TYPE CODE TESTS RESULT OUT OF REFERENCE UNITS RANGE LAB NAWB 135-146 mmol/L Sodium, Whole 143 Bld LAB K1WB 3.5-5.0 mmol/L Potassium,Who 4.7 le Bld LAB CLWB 98-110 mmol/L Chloride, 105 Whole Bld LAB ICAWB 1.08-1.30 mmol/L Ionized 1.21 Calcium, WB Result Comment: Please note: This value represents ionized calcium not total calcium. LAB CO2WB 23-32 mmol/L TCO2, Whole 26 Blood LAB GLUWB 65-100 mg/dL High Glucose, 125 Whole Bld LAB BUNWB 10-25 mg/dL BUN, Whole 17 Blood LAB BCRET 0.70-1.40 mg/dL Creatinine,Wh 1.10 ole Bld LAB AGAPWB 0-15 mmol/L Anion Gap, 12 Whole Bld LAB GFRAA eGFR- >60 Amer. LAB GFRNAA . eGFR-All >60 Other Races Result Comment: eGFR (Estimated GFR) Units of measure: mL/min/1.73 meters squared eGFR is derived from the reexpressed MDRD Study equation using the following parameters: serum creatinine, age, gender and race. The creatinine assay has been calibrated to be traceable to IDMS. An eGFR <60 mL/min/1.73m2 for >3 months is consistent with chronic kidney disease. Refer to KDOQI guidelines for clinical interpretation. In patients with unstable renal function, e.g. those with acute kidney injury, the eGFR may not accurately reflect actual GFR. HEPATIC FUNCTN PANEL Collected: 01/02/2018 Status: F Source: [facility] 11:03 AM [facility] REPOSITORY TYPE CODE TESTS RESULT OUT OF REFERENCE UNITS RANGE LAB ALB 3.9-4.9 g/dL Albumin 4.3 LAB TBIL 0.2-1.3 mg/dL Bilirubin, Total 0.3 LAB CBIL <0.2 mg/dL Bilirubin,Conjuga <0.2 dilma LAB ALKP 36-108 U/L Alkaline Phosphatase 76 LAB AST 14-40 U/L AST 28 LAB ALT 10-54 U/L ALT 28 LAB TP 6.3-8.0 g/dL Protein, Total 7.0 Performed By: #### HFP #### [facility] [place] [facility] [address] [place], [place] [address] PROGRESS Observed: 12/31/2017 Status: COMPLETED Source: [place] 10:35 AM [facility] REPOSITORY HNO ID: [id number] Author: Allyson Lowery (Sw) Service: (none) Author Type: Tax Economist Type: Progress Notes Filed: 12/31/2017 10:35 AM Note Text: SOCIAL WORK FOLLOW [facility] Date of service: December 31, 2017 Sam Hagen is being seen for a follow up social work visit. Today's visit includes: patient not present TOPICS ADDRESSED: Finances; ROSA received signed copy of application from doctor, attached Rx, insurance cards, tax information and pharmacy printout and [place] [facility] [place] scanned into his chart. PLAN: Assist with financial support applications and Continue follow up as needed F/U APPOINTMENT: THEE Flaherty PROGRESS Observed: 12/26/2017 Status: COMPLETED Source: [facility] [facility] 11:10 AM [facility] REPOSITORY HNO ID: [id number] Author: Allyson Lowery (Sw) Service: (none) Author Type: Tax Economist Type: Progress Notes Filed: 12/31/2017 10:35 AM Note Text: SOCIAL WORK FOLLOW UP [facility]: [facility] Date of service: December 26, 2017 Sam Hagen is being seen for a follow up social work visit. Today's visit includes: patient not present TOPICS ADDRESSED: Finances; ROSA received documents that patient dropped off yesterday to apply for [employer] assistance for Eliquis. ROSA provided to doctor to review. PLAN: Assist with financial support applications and Continue follow up as needed F/U APPOINTMENT: THEE Flaherty CNSW Observed: 12/26/2017 Status: COMPLETED Source: [facility] [facility] 12:00 AM [facility] REPOSITORY Social Work (STEPHANIE) ANAISSAM Curry ([id number]) 1940 M Date Time Provider Department 12/26/17 ALLYSON LOWERY) STEPHANIE During your visit today, we recorded the following information about you: THEE Aaron 12/31/2017 10:35 AM Signed SOCIAL WORK FOLLOW UP NOTE: [facility] Date of service: December 26, 2017 Sam Hagen is being seen for a follow up social work visit. Today's visit includes: patient not present TOPICS ADDRESSED: Finances; ROSA received documents that patient dropped off yesterday to apply for [employer] assistance for [employer]. ROSA provided to doctor to review. PLAN: Assist with financial support applications and Continue follow up as needed F/U APPOINTMENT: THEE Flaherty LISW 12/31/2017 10:35 AM Signed SOCIAL WORK FOLLOW UP NOTE: [facility] Date of service: December 31, 2017 Sam Hagen is being seen for a follow up social work visit. Today's visit includes: patient not present TOPICS ADDRESSED: Finances; ROSA received signed copy of application from doctor, attached Rx, insurance cards, tax information and pharmacy printout and faxed to [employer]. Copy scanned into his chart. PLAN: Assist with financial support applications and Continue follow up as needed F/U APPOINTMENT: THEE Flaherty LISW 01/02/2018 12:59 PM Signed SOCIAL WORK FOLLOW UP NOTE: [facility] Date of service: January 02, 2018 Sam Hagen is being seen for a follow up social work visit. Today's visit includes: patient TOPICS ADDRESSED: Finances; ROSA received three faxes from [employer] stating patient was approved, patient was denied, and patient was currently enrolled and needed to reapply. ROSA called [employer] to clarify this and was told patient was denied since his secondary insurance is considered private. We will need to call [phone] to apply for their assistance. [place] has been mailed to patient with this information from [facility] [place]. PLAN: Assist with financial support applications and Continue follow up as needed F/U APPOINTMENT: THEE Flaherty Allergies As of Date: 12/26/2017 (No Known Allergies) Date Reviewed: 12/25/2017 Reviewed by: Talon Curry (Rn) DIXIE Allan - Fully Assessed Reason for Visit: Social Work Services [507] Cmt: Patient Assistance [employer]MS Eliquis Prescriptions as of 12/26/2017 Sig: GABAPENTIN 300 MG CAPSULE Take 1 capsule by mouth three* HYDROCODONE 10 MG-ACETAMINOPH* Take 1 tablet by mouth every * FINASTERIDE 5 MG TABLET Take 5 mg by mouth once daily. X ELIQUIS 5 MG TABLET TAKE ONE TABLET BY MOUTH TWIC* OMEPRAZOLE 40 MG CAPSULE,ROHIT* Take 1 capsule by mouth once * COMPOUNDED PRESCRIPTION Colostomy Care Supplies; 1 m* COMPOUNDED PRESCRIPTION Colostomy Care Supplies; 1 m* LOPERAMIDE 2 MG TABLET Take 2 mg by mouth as needed. ONDANSETRON HCL 8 MG TABLET Take 1 tablet by mouth every * X ISOSORBIDE MONONITRATE ER 60 * Take 60 mg by mouth once renu* X NITROGLYCERIN 0.4 MG SUBLINGU* Dissolve 0.4 mg under the ton* X * ATENOLOL 50 MG TABLET Take one(1) tablet daily. X * ZOCOR 40 MG TABLET Take one(1) tablet daily at b* Problem List As Of Date 12/26/2017 Noted Resolved Bowel obstruction (HCC) [K56.609] INVALID FOR*07/10/2017 Other specified abnormal immunological findings*INVALID FOR* More... Colon cancer (HCC) [C18.9] INVALID FOR* Priority: B More... 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 Arthritis of right hip [M16.11] INVALID FOR* Priority: M Colostomy care ([facility]) [Z43.3] INVALID FOR* Priority: C Colostomy in place ([facility]) [Z93.3] INVALID FOR* Priority: C History of DVT (deep vein thrombosis) [Z86.718] INVALID FOR* Priority: A More... Bladder stone [N21.0] INVALID FOR* Priority: C More... Coronary artery disease involving ugashik rivera*INVALID FOR* Priority: A More... H/O heart artery stent [Z95.5] INVALID FOR* Priority: B More... Nerve pain [M79.2] INVALID FOR* Priority: M More... Hyperlipidemia, mixed [E78.2] INVALID FOR* Priority: A Chronic midline back pain [M54.9, G89.29] INVALID FOR* Encounter Status:Closed by ALLYSON LOWERY on 12/31/17 [place] ABS GR + CBC Collected: 12/23/2017 Status: F Source: [place] 1:15 PM [facility] REPOSITORY TYPE CODE TESTS RESULT OUT OF REFERENCE UNITS RANGE LAB WWBC 3.70-11.00 k/uL [place] WBC 7.10 LAB WRBC 4.20-6.00 m/uL Low [place] RBC 3.83 LAB WHGB 13.0-17.0 g/dL Low [place] Hemoglobin 11.1 LAB WHCT 39.0-51.0 % Low [place] Hematocrit 35.5 LAB WMCV 80.0-100.0 fL [place] MCV 92.7 LAB WMCH 26.0-34.0 pg [place] MCH 29.0 LAB WMCHC 30.5-36.0 g/dL [place] MCHC 31.3 LAB WRDW 11.5-15.0 % [place] High RDW 19.8 LAB WPLT 150-400 k/uL [place] Platelet Cnt 195 LAB WMPV 9.0-12.7 fL Low [place] MPV 8.8 Result Comment: Test performed at: [facility] [place] [facility] [place], [address] [place] [address]. LAB ABGRAN 1.45-7.50 k/uL Absol Gran 3.49 Count PROGRESS Observed: 12/15/2017 Status: COMPLETED Source: [place] 9:36 AM [facility] REPOSITORY HNO ID: [id number] Author: Allyson Lowery (Sw) Service: (none) Author Type: Tax Economist Type: Progress Notes Filed: 12/15/2017 9:42 AM Note Text: SOCIAL WORK DISTRESS ASSESSMENT Referral made due to:Moderate distress Contact was made: [id number] Problems Addressed: Practical: Insurance/Financial Family: N/A Emotional: Nervousness, Worry and Loss of Interest Spiritual Concerns: N/A Physical Problems: Fatigue, Mobility, Memory/concentration, Nausea, Nose dry/congested, Skin dry/itchy, Sleep and Tingling in hands/feet Exercising: N/A Stress Management: No Is the patient's distress related to a change in quality of life? No Patient with current Suicidal Ideation: No MENTAL HEALTH HISTORY: No Substance Use and Treatment History: denied History of Abuse: denied History of combat/trauma: No INTERVENTION/PLAN: Monitor patient response to treatment Communicate pertinent medical/psychosocial information to Cancer [facility] team Provide emotional support to patient/family Referral to community resource Assist with financial support applications Provided education on distress and screening process Continue follow up as needed Resources and Referrals: ? Internal: NA ? External: Other [employer] Follow up appointment with ROSA in: Other 12/23/17; ROSA met with patient to discuss tablet questionnaire. Patient reports some nervousness about finances and states his Eliquis is quite expensive. SW started an application for [employer] with him and he will discuss with his [id number] about what documents he needs to bring in (income verification and print out from pharmacy). Patient will be back on 12/23 to review this. Patient reports some physical issues that are also causing him issues, but he discussed these concerns with the doctor. Patient has good support at home and denies other needs at this time. THEE Aaron ABS GR + CBC Collected: 12/15/2017 Status: F Source: [place] 8:34 AM [facility] REPOSITORY TYPE CODE TESTS RESULT OUT OF REFERENCE UNITS RANGE LAB WWBC 3.70-11.00 k/uL [place] WBC 5.79 LAB WRBC 4.20-6.00 m/uL Low [place] RBC 3.92 LAB WHGB 13.0-17.0 g/dL Low [place] Hemoglobin 11.3 LAB WHCT 39.0-51.0 % Low [place] Hematocrit 36.0 LAB WMCV 80.0-100.0 fL [place] MCV 91.8 LAB WMCH 26.0-34.0 pg [place] MCH 28.8 LAB WMCHC 30.5-36.0 g/dL [place] MCHC 31.4 LAB WRDW 11.5-15.0 % [place] High RDW 20.0 LAB WPLT 150-400 k/uL Low [place] Platelet Cnt 143 LAB WMPV 9.0-12.7 fL Low [place] MPV 8.5 Result Comment: Test performed at: [facility] [place] [facility] [place], [address] [place] [address]. LAB ABGRAN 1.45-7.50 k/uL Absol Gran 3.01 Count [place] ISTAT BMP Collected: 12/15/2017 Status: F Source: [place] 8:34 AM [facility] REPOSITORY TYPE CODE TESTS RESULT OUT OF REFERENCE UNITS RANGE LAB NAWB 135-146 mmol/L Sodium, Whole 140 Bld LAB K1WB 3.5-5.0 mmol/L Potassium,Who 4.2 le Bld LAB CLWB 98-110 mmol/L Chloride, 101 Whole Bld LAB ICAWB 1.08-1.30 mmol/L Ionized 1.21 Calcium, WB Result Comment: Please note: This value represents ionized calcium not total calcium. LAB CO2WB 23-32 mmol/L TCO2, Whole 27 Blood LAB GLUWB 65-100 mg/dL High Glucose, 147 Whole Bld LAB BUNWB 10-25 mg/dL BUN, Whole 18 Blood LAB BCRET 0.70-1.40 mg/dL Creatinine,Wh 1.00 ole Bld LAB AGAPWB 0-15 mmol/L Anion Gap, 12 Whole Bld LAB GFRAA eGFR- >60 Amer. LAB GFRNAA . eGFR-All >60 Other Races Result Comment: eGFR (Estimated GFR) Units of measure: mL/min/1.73 meters squared eGFR is derived from the reexpressed MDRD Study equation using the following parameters: serum creatinine, age, gender and race. The creatinine assay has been calibrated to be traceable to IDMS. An eGFR <60 mL/min/1.73m2 for >3 months is consistent with chronic kidney disease. Refer to KDOQI guidelines for clinical interpretation. In patients with unstable renal function, e.g. those with acute kidney injury, the eGFR may not accurately reflect actual GFR. HEPATIC FUNCTN PANEL Collected: 12/15/2017 Status: F Source: [place] 8:34 AM [facility] REPOSITORY TYPE CODE TESTS RESULT OUT OF REFERENCE UNITS RANGE LAB ALB 3.9-4.9 g/dL Albumin 4.1 LAB TBIL 0.2-1.3 mg/dL Bilirubin, Total 0.4 LAB CBIL <0.2 mg/dL Bilirubin,Conjuga <0.2 dilma LAB ALKP 36-108 U/L Alkaline Phosphatase 77 LAB AST 14-40 U/L AST 29 LAB ALT 10-54 U/L ALT 32 LAB TP 6.3-8.0 g/dL Protein, Total 6.5 Performed By: #### HFP #### [facility] [place] [facility] [address] [place], [place] [address] CNOVSP Observed: 12/15/2017 Status: COMPLETED Source: [facility] [facility] 8:30 AM [facility] REPOSITORY Visit (SP) Office (STEPHANIE) SAM HAGEN ([id number]) 1940 M Date Time Provider Department 12/15/17 8:30 AM SAM GREENBERG During your visit today, we recorded the following information about you: Temperature Pulse Blood pressure Weight 98.2 degrees 59/minute 104/61 80.7 kg Sam Greenberg DO 12/15/2017 9:14 AM Signed Diagnosis: 1) Stage III colon cancer. HPI: The patient is 77 yo male with PMH significant for CAD ([place] 1993; treated with PCI balloon angioplasty; no stent) and prostate cancer (tx with radiation x44 fx ~6-8 years ago). He presented to [facility] with symptoms of bowel obstruction. He underwent attempted colonoscopy but the procedure was aborted when the scope was not able to be passed through the rectum/sigmoid area. He was transferred to [facility]. He ultimately underwent a total colectomy along with end ileostomy and partial bladder resection on 07/03/2017. He was noted to have 2 foci of tumor one in the cecum and one in the sigmoid colon. The latter tumor was adherent to the bladder invasive to the bladder wall. 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 ?TUMOR PENETRATES TO THE SURFACE OF THE VISCERAL PERITONEUM. SURGICAL MARGINS NEGATIVE. 1 OF 13 LYMPH NODES POSITIVE FOR METASTATIC ADENOCARCINOMA AND 1 TUMOR DEPOSIT PRESENT. PERINEURAL AND LYMPHOVASCULAR INVASION PRESENT. B) SMALL INTESTINE, TERMINAL ILEUM, ILEOSTOMY - BENIGN SMALL INTESTINAL TISSUE. C) BLADDER, PARTIAL CYSTECTOMY - FOCAL INVOLVEMENT OF THICK SMOOTH MUSCLE BUNDLES BY ADENOCARCINOMA. ?NO UROTHELIUM PRESENT. D) COLON, SIGMOID, SEGMENTAL RESECTION - INVASIVE LOW GRADE (MODERATELY DIFFERENTIATED) ADENOCARCINOMA (3 CM IN GREATEST DIMENSION). ?SURGICAL MARGINS APPEAR NEGATIVE. BENIGN TRANSECTED BENIGN VAS DEFERENS (2) AND THICK SMOOTH MUSCLE SUGGESTIVE OF BLADDER. 1 OF 9 LYMPH NODES POSITIVE FOR METASTATIC ADENOCARCINOMA Presents for ongoing oncologic management. Evaluation for cycle #6. Current therapy: 1) Infusional 5FU. Interim history: Remains concerned about stomal hernia. Was seen by stoma nurse once. He cannot remember what he was told. No pain from hernia. Tingling around edges. Reviewed KP questions--I asked about nausea and he says, ANDquot;very little.ANDquot; Tingling and peeling of fingertips--pre-exising. Appetite is ANDquot;great.ANDquot; Denies unusual bleeding and unexplained bruising. PMH, medications and allergies personally reviewed by me today. Any changes documented in appropriate section. ROS: Constitutional: Denies episodes of fever and night sweats. Not significantly fatigued. Neuro: Denies SHERIFF, vertigo, dizziness and imbalance. He has symptoms of bilateral carpal tunnel syndrome. No neuropathy of the lower extremities. HEENT: No recent change in voice, vision or hearing. Resp: Denies hemoptysis. CVS: Denies PND and orthopnea. GI: Denies dysgeusia. Denies symptoms of stomatitis. Denies dysphagia and odynophagia. Endo: Denies hot flashes. Denies polyuria and polydipsia. Denies heat and cold intolerance. Derm: Denies rash. Denies jaundice and diffuse pruritis. Heme: See above. Psych: Normal mood. PHYSICAL EXAM: Vitals: There were no vitals taken for this visit. Well-appearing and in no acute distress. EYES: Sclerae are anicteric bilaterally. ENT: Oral mucosa is unremarkable. NECK: Supple. LYMPHATIC: There is no palpable cervical, supraclavicular, axillary adenopathy. RESPIRATORY: Inspiratory breath sounds are of diminished intensity in all norris. CARDIOVASCULAR: Rhythm is regular. Normal intensity S1/S2. There is no gallop or murmur. ABDOMEN: The abdomen is nondistended. Midline incision well- healed. Ostomy appears healthy with area of surrounding reducible hernia. Extremities: Trace edema left. SKIN: No jaundice or rash. Peeling around fingertip pads. 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 No focal motor weakness. ASSESSMENT/PLAN: (C18.2) Malignant neoplasm of ascending colon (HCC) (primary encounter diagnosis) (C18.7) Malignant neoplasm of sigmoid colon (HCC) Assessment: -mpT4a pN1 M0 adenocarcinoma with mucinous features of the ascending colon. There was lymphovascular as well as perineural invasion observed. One tumor deposit. One of 13 nodes. -mpT4b pN1 M0 adenocarcinoma of the sigmoid colon. Focal involvement of bladder. Lymphovascular invasion was observed. No tumor deposits. One of 9 nodes involved. -Discussed holding therapy a week then resuming at dose reduction due to HFS reaction. -Will consider radiation oncology opinion after completing chemotherapy. Plan: -As above. (Z86.208) History of DVT (deep vein thrombosis) Assessment: -Ultrasound of the left leg on 09/03/2017 revealed acute DVT in the femoral vein at the distal thigh extending into the popliteal vein. Thrombus was noted in the gastrocnemius vein at the popliteal junction and in the posterior tibial veins and peroneal veins from proximal to mid calf. -He is tolerating anticoagulation very well. Plan: -Continue anticoagulation for approximately 3 months beyond chemotherapy. (K21.9) Gastro-esophageal reflux disease without esophagitis Assessment: -Given the onset and characteristics of the chest discomfort he had during the night, reflux is most likely. Plan: -Omeprazole (PRILOSEC) 40 mg capsule (M54.9, G89.29) Other chronic back pain Assessment: -Chronic low back pain for which he takes Vicodin 10/325 one tablet every 6 hours. He's been on this long-term as previously prescribed by his primary care physician. Plan: -PCP to continue management. Sam Greenberg DO Referring Provider: SAM GREENBERG [[id number]] Allergies As of Date: 12/15/2017 (No Known Allergies) Date Reviewed: 12/15/2017 Reviewed by: Asha Prater - Fully Assessed Reason for Visit: Established Patient [175] Primary Visit Diagnosis:Malignant neoplasm of sigmoid colon (HCC) [C18.7] Other Visit Diagnoses:Malignant neoplasm of ascending colon (HCC) [C18.2] History of DVT (deep vein thrombosis) [Z86.718] Follow-up and Disposition History Recorded Prescriptions as of 12/15/2017 Sig: FINASTERIDE 5 MG TABLET Take 5 mg by mouth once daily. HYDROCODONE 10 MG-ACETAMINOPH* Take 1 tablet by mouth every * ELIQUIS 5 MG TABLET TAKE ONE TABLET BY MOUTH TWIC* OMEPRAZOLE 40 MG CAPSULE,ROHIT* Take 1 capsule by mouth once * COMPOUNDED PRESCRIPTION Colostomy Care Supplies; 1 m* COMPOUNDED PRESCRIPTION Colostomy Care Supplies; 1 m* LOPERAMIDE 2 MG TABLET Take 2 mg by mouth as needed. ONDANSETRON HCL 8 MG TABLET Take 1 tablet by mouth every * ISOSORBIDE MONONITRATE ER 60 * Take 60 mg by mouth once renu* GABAPENTIN 300 MG CAPSULE Take 300 mg by mouth three ti* NITROGLYCERIN 0.4 MG SUBLINGU* Dissolve 0.4 mg under the ton* * ATENOLOL 50 MG TABLET Take one(1) tablet daily. * ZOCOR 40 MG TABLET Take one(1) tablet daily at b* Problem List As Of Date 12/15/2017 Noted Resolved Bowel obstruction (HCC) [K56.609] INVALID FOR*07/10/2017 Other specified abnormal immunological findings*INVALID FOR* More... Colon cancer (HCC) [C18.9] INVALID FOR* Priority: B More... 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 Arthritis of right hip [M16.11] INVALID FOR* Priority: M Colostomy care ([facility]) [Z43.3] INVALID FOR* Priority: C Colostomy in place ([facility]) [Z93.3] INVALID FOR* Priority: C History of DVT (deep vein thrombosis) [Z86.718] INVALID FOR* Priority: A More... Bladder stone [N21.0] INVALID FOR* Priority: C More... Coronary artery disease involving ugashik rivera*INVALID FOR* Priority: A More... H/O heart artery stent [Z95.5] INVALID FOR* Priority: B More... Nerve pain [M79.2] INVALID FOR* Priority: M More... Hyperlipidemia, mixed [E78.2] INVALID FOR* Priority: A Chronic midline back pain [M54.9, G89.29] INVALID FOR* Encounter Status:Closed by SAM GREENBERG DO on 12/15/17 PROGRESS Observed: 12/15/2017 Status: COMPLETED Source: [place] 8:28 AM [facility] REPOSITORY O ID: [id number] Author: Sam Greenberg Service: (none) Author Type: Physician Type: Progress Notes Filed: 12/15/2017 9:14 AM Note Text: Diagnosis: 1) Stage III colon cancer. HPI: The patient is 77 yo male with PMH significant for CAD ([place] 1993; treated with PCI balloon angioplasty; no stent) and prostate cancer (tx with radiation x44 fx ~6-8 years ago). He presented to [facility] with symptoms of bowel obstruction. He underwent attempted colonoscopy but the procedure was aborted when the scope was not able to be passed through the rectum/sigmoid area. He was transferred to [facility]. He ultimately underwent a total colectomy along with end ileostomy and partial bladder resection on 07/03/2017. He was noted to have 2 foci of tumor one in the cecum and one in the sigmoid colon. The latter tumor was adherent to the bladder invasive to the bladder wall. 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 ?TUMOR PENETRATES TO THE SURFACE OF THE VISCERAL PERITONEUM. SURGICAL MARGINS NEGATIVE. 1 OF 13 LYMPH NODES POSITIVE FOR METASTATIC ADENOCARCINOMA AND 1 TUMOR DEPOSIT PRESENT. PERINEURAL AND LYMPHOVASCULAR INVASION PRESENT. B) SMALL INTESTINE, TERMINAL ILEUM, ILEOSTOMY - BENIGN SMALL INTESTINAL TISSUE. C) BLADDER, PARTIAL CYSTECTOMY - FOCAL INVOLVEMENT OF THICK SMOOTH MUSCLE BUNDLES BY ADENOCARCINOMA. ?NO UROTHELIUM PRESENT. D) COLON, SIGMOID, SEGMENTAL RESECTION - INVASIVE LOW GRADE (MODERATELY DIFFERENTIATED) ADENOCARCINOMA (3 CM IN GREATEST DIMENSION). ?SURGICAL MARGINS APPEAR NEGATIVE. BENIGN TRANSECTED BENIGN VAS DEFERENS (2) AND THICK SMOOTH MUSCLE SUGGESTIVE OF BLADDER. 1 OF 9 LYMPH NODES POSITIVE FOR METASTATIC ADENOCARCINOMA Presents for ongoing oncologic management. Evaluation for cycle #6. Current therapy: 1) Infusional 5FU. Interim history: Remains concerned about stomal hernia. Was seen by stoma nurse once. He cannot remember what he was told. No pain from hernia. Tingling around edges. Reviewed KP questions--I asked about nausea and he says, very little. Tingling and peeling of fingertips--pre-exising. Appetite is great. Denies unusual bleeding and unexplained bruising. PMH, medications and allergies personally reviewed by me today. Any changes documented in appropriate section. ROS: Constitutional: Denies episodes of fever and night sweats. Not significantly fatigued. Neuro: Denies SHERIFF, vertigo, dizziness and imbalance. He has symptoms of bilateral carpal tunnel syndrome. No neuropathy of the lower extremities. HEENT: No recent change in voice, vision or hearing. Resp: Denies hemoptysis. CVS: Denies PND and orthopnea. GI: Denies dysgeusia. Denies symptoms of stomatitis. Denies dysphagia and odynophagia. Endo: Denies hot flashes. Denies polyuria and polydipsia. Denies heat and cold intolerance. Derm: Denies rash. Denies jaundice and diffuse pruritis. Heme: See above. Psych: Normal mood. PHYSICAL EXAM: Vitals: There were no vitals taken for this visit. Well-appearing and in no acute distress. EYES: Sclerae are anicteric bilaterally. ENT: Oral mucosa is unremarkable. NECK: Supple. LYMPHATIC: There is no palpable cervical, supraclavicular, axillary adenopathy. RESPIRATORY: Inspiratory breath sounds are of diminished intensity in all norris. CARDIOVASCULAR: Rhythm is regular. Normal intensity S1/S2. There is no gallop or murmur. ABDOMEN: The abdomen is nondistended. Midline incision well- healed. Ostomy appears healthy with area of surrounding reducible hernia. Extremities: Trace edema left. SKIN: No jaundice or rash. Peeling around fingertip pads. 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 No focal motor weakness. ASSESSMENT/PLAN: (C18.2) Malignant neoplasm of ascending colon (HCC) (primary encounter diagnosis) (C18.7) Malignant neoplasm of sigmoid colon (HCC) Assessment: -mpT4a pN1 M0 adenocarcinoma with mucinous features of the ascending colon. There was lymphovascular as well as perineural invasion observed. One tumor deposit. One of 13 nodes. -mpT4b pN1 M0 adenocarcinoma of the sigmoid colon. Focal involvement of bladder. Lymphovascular invasion was observed. No tumor deposits. One of 9 nodes involved. -Discussed holding therapy a week then resuming at dose reduction due to HFS reaction. -Will consider radiation oncology opinion after completing chemotherapy. Plan: -As above. (Z86.268) History of DVT (deep vein thrombosis) Assessment: -Ultrasound of the left leg on 09/03/2017 revealed acute DVT in the femoral vein at the distal thigh extending into the popliteal vein. Thrombus was noted in the gastrocnemius vein at the popliteal junction and in the posterior tibial veins and peroneal veins from proximal to mid calf. -He is tolerating anticoagulation very well. Plan: -Continue anticoagulation for approximately 3 months beyond chemotherapy. (K21.9) Gastro-esophageal reflux disease without esophagitis Assessment: -Given the onset and characteristics of the chest discomfort he had during the night, reflux is most likely. Plan: -Omeprazole (PRILOSEC) 40 mg capsule (M54.9, G89.29) Other chronic back pain Assessment: -Chronic low back pain for which he takes Vicodin 10/325 one tablet every 6 hours. He's been on this long-term as previously prescribed by his primary care physician. Plan: -PCP to continue management. DO YOVANNY Combs Observed: 12/15/2017 Status: COMPLETED Source: [facility] 12:00 AM [facility] REPOSITORY Social Work (HEMAWS) SAM HAGEN ([id number]) 1940 M Date Time Provider Department 12/15/17 ALLYSON LOWERY) STEPHANIE During your visit today, we recorded the following information about you: THEE Aaron 12/15/2017 9:42 AM Signed Sensitive Note SOCIAL WORK DISTRESS ASSESSMENT Referral made due to:Moderate distress Contact was made: [id number] Problems Addressed: Practical: Insurance/Financial Family: N/A Emotional: Nervousness, Worry and Loss of Interest Spiritual Concerns: N/A Physical Problems: Fatigue, Mobility, Memory/concentration, Nausea, Nose dry/congested, Skin dry/itchy, Sleep and Tingling in hands/feet Exercising: N/A Stress Management: No Is the patient's distress related to a change in quality of life? No Patient with current Suicidal Ideation: No MENTAL HEALTH HISTORY: No Substance Use and Treatment History: denied History of Abuse: denied History of combat/trauma: No INTERVENTION/PLAN: Monitor patient response to treatment Communicate pertinent medical/psychosocial information to Cancer Center team Provide emotional support to patient/family Referral to community resource Assist with financial support applications Provided education on distress and screening process Continue follow up as needed Resources and Referrals: ? Internal: NA ? External: Other [employer] Follow up appointment with ROSA in: Other 12/23/17; ROSA met with patient to discuss tablet questionnaire. Patient reports some nervousness about finances and states his Eliquis is quite expensive. ROSA started an application for [employer] with him and he will discuss with his [id number] about what documents he needs to bring in (income verification and print out from pharmacy). Patient will be back on 12/23 to review this. Patient reports some physical issues that are also causing him issues, but he discussed these concerns with the doctor. Patient has good support at home and denies other needs at this time. THEE Aaron Allergies As of Date: 12/15/2017 (No Known Allergies) Date Reviewed: 12/15/2017 Reviewed by: Asha Prater - Fully Assessed Reason for Visit: Social Work Services [[id number]] Cmt: distress assessment Prescriptions as of 12/15/2017 Sig: FINASTERIDE 5 MG TABLET Take 5 mg by mouth once daily. HYDROCODONE 10 MG-ACETAMINOPH* Take 1 tablet by mouth every * ELIQUIS 5 MG TABLET TAKE ONE TABLET BY MOUTH TWIC* OMEPRAZOLE 40 MG CAPSULE,ROHIT* Take 1 capsule by mouth once * COMPOUNDED PRESCRIPTION Colostomy Care Supplies; 1 m* COMPOUNDED PRESCRIPTION Colostomy Care Supplies; 1 m* LOPERAMIDE 2 MG TABLET Take 2 mg by mouth as needed. ONDANSETRON HCL 8 MG TABLET Take 1 tablet by mouth every * ISOSORBIDE MONONITRATE ER 60 * Take 60 mg by mouth once renu* GABAPENTIN 300 MG CAPSULE Take 300 mg by mouth three ti* NITROGLYCERIN 0.4 MG SUBLINGU* Dissolve 0.4 mg under the ton* * ATENOLOL 50 MG TABLET Take one(1) tablet daily. * ZOCOR 40 MG TABLET Take one(1) tablet daily at b* Problem List As Of Date 12/15/2017 Noted Resolved Bowel obstruction (HCC) [K56.609] INVALID FOR*07/10/2017 Other specified abnormal immunological findings*INVALID FOR* More... Colon cancer (HCC) [C18.9] INVALID FOR* Priority: B More... 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 Arthritis of right hip [M16.11] INVALID FOR* Priority: M Colostomy care ([facility]) [Z43.3] INVALID FOR* Priority: C Colostomy in place ([facility]) [Z93.3] INVALID FOR* Priority: C History of DVT (deep vein thrombosis) [Z86.718] INVALID FOR* Priority: A More... Bladder stone [N21.0] INVALID FOR* Priority: C More... Coronary artery disease involving ugashik rivera*INVALID FOR* Priority: A More... H/O heart artery stent [Z95.5] INVALID FOR* Priority: B More... Nerve pain [M79.2] INVALID FOR* Priority: M More... Hyperlipidemia, mixed [E78.2] INVALID FOR* Priority: A Chronic midline back pain [M54.9, G89.29] INVALID FOR* Encounter Status:Closed by ALLYSON LOWERY on 12/15/17 HUGO ABS GR + CBC Collected: 12/02/2017 Status: F Source: [facility] 2:17 PM [facility] REPOSITORY TYPE CODE TESTS RESULT OUT OF REFERENCE UNITS RANGE LAB WWBC 3.70-11.00 k/uL [place] WBC 6.56 LAB WRBC 4.20-6.00 m/uL Low [place] RBC 3.67 LAB WHGB 13.0-17.0 g/dL Low [place] Hemoglobin 10.4 LAB WHCT 39.0-51.0 % Low [place] Hematocrit 33.4 LAB WMCV 80.0-100.0 fL [place] MCV 91.0 LAB WMCH 26.0-34.0 pg [place] MCH 28.3 LAB WMCHC 30.5-36.0 g/dL [place] MCHC 31.1 LAB WRDW 11.5-15.0 % [place] High RDW 20.4 LAB WPLT 150-400 k/uL Low [place] Platelet Cnt 132 LAB WMPV 9.0-12.7 fL [place] MPV 9.0 Result Comment: Test performed at: [facility] [place], [address] [place] [address] [address] [place] [address]. LAB ABGRAN 1.45-7.50 k/uL Absol Gran 3.72 Count [place] DESAI BMP Collected: 12/02/2017 Status: F Source: [facility] 2:17 PM [facility] REPOSITORY TYPE CODE TESTS RESULT OUT OF REFERENCE UNITS RANGE LAB NAWB 135-146 mmol/L Sodium, Whole 140 Bld LAB K1WB 3.5-5.0 mmol/L Potassium,Who 4.1 le Bld LAB CLWB 98-110 mmol/L Chloride, 103 Whole Bld LAB ICAWB 1.08-1.30 mmol/L Ionized 1.22 Calcium, WB Result Comment: Please note: This value represents ionized calcium not total calcium. LAB CO2WB 23-32 mmol/L TCO2, Whole 25 Blood LAB GLUWB 65-100 mg/dL High Glucose, 124 Whole Bld LAB BUNWB 10-25 mg/dL BUN, Whole 14 Blood LAB BCRET 0.70-1.40 mg/dL Creatinine,Wh 0.90 ole Bld LAB AGAPWB 0-15 mmol/L Anion Gap, 12 Whole Bld LAB GFRAA eGFR- >60 Amer. LAB GFRNAA . eGFR-All >60 Other Races Result Comment: eGFR (Estimated GFR) Units of measure: mL/min/1.73 meters squared eGFR is derived from the reexpressed MDRD Study equation using the following parameters: serum creatinine, age, gender and race. The creatinine assay has been calibrated to be traceable to IDMS. An eGFR <60 mL/min/1.73m2 for >3 months is consistent with chronic kidney disease. Refer to KDOQI guidelines for clinical interpretation. In patients with unstable renal function, e.g. those with acute kidney injury, the eGFR may not accurately reflect actual GFR. CNOVSP Observed: 11/17/2017 Status: COMPLETED Source: [facility] 11:00 AM [facility] REPOSITORY Visit (SP) Office (HEMAWS) SAM HAGEN ([id number]) 1940 M Date Time Provider Department 11/17/17 11:00 AM TAMEKA MARSHALL (JENNIFER) STEPHANIE During your visit today, we recorded the following information about you: Temperature Pulse Blood pressure Weight 98.1 degrees 60/minute 119/61 81.6 kg Tameka Marshall CNP 11/18/2017 8:04 AM Signed Chief Complaint Patient presents with: Established Patient HPI: Sam Hagen is a 77 year old male who presents here today for evaluation for chemotherapy tomorrow. Per Dr. Greenberg's previous note: H/o CAD [place]; treated with PCI balloon angioplasty; no stent) and prostate cancer (tx with radiation x44 fx ~6-8 years ago). ? He presented to [facility] with symptoms of bowel obstruction. He underwent attempted colonoscopy but the procedure was aborted when the scope was not able to be passed through the rectum/sigmoid area. He was transferred to [facility]. He ultimately underwent a total colectomy along with end ileostomy and partial bladder resection on 07/03/2017. He was noted to have 2 foci of tumor one in the cecum and one in the sigmoid colon. The latter tumor was adherent to the bladder invasive to the bladder wall. ? 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 ?TUMOR PENETRATES TO THE SURFACE OF THE VISCERAL PERITONEUM. SURGICAL MARGINS NEGATIVE. 1 OF 13 LYMPH NODES POSITIVE FOR METASTATIC ADENOCARCINOMA AND 1 TUMOR DEPOSIT PRESENT. PERINEURAL AND LYMPHOVASCULAR INVASION PRESENT. B) SMALL INTESTINE, TERMINAL ILEUM, ILEOSTOMY - BENIGN SMALL INTESTINAL TISSUE. C) BLADDER, PARTIAL CYSTECTOMY - FOCAL INVOLVEMENT OF THICK SMOOTH MUSCLE BUNDLES BY ADENOCARCINOMA. ?NO UROTHELIUM PRESENT. D) COLON, SIGMOID, SEGMENTAL RESECTION - INVASIVE LOW GRADE (MODERATELY DIFFERENTIATED) ADENOCARCINOMA (3 CM IN GREATEST DIMENSION). ?SURGICAL MARGINS APPEAR NEGATIVE. BENIGN TRANSECTED BENIGN VAS DEFERENS (2) AND THICK SMOOTH MUSCLE SUGGESTIVE OF BLADDER. 1 OF 9 LYMPH NODES POSITIVE FOR METASTATIC ADENOCARCINOMA ? Presents for ongoing oncologic management. Evaluation for cycle #6. ? Current therapy: 1) Infusional 5FU. No complaints. Appetite:good Energy level:ANDquot;it's lowANDquot; Denies fevers. 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 Past medical history, appointments, medications, allergies reviewed. No changes. EXAM: BP 119/61 Pulse 60 Temp 36.7 ?C (98.1 ?F) Wt 81.6 kg (180 lb) BMI 28.19 kg/m2 APPEARANCE Well appearing, alert, in no acute distress, well- hydrated, well nourished. MOUTH no mucositis inside mouth, one sore to lower/outer left lip HEART RRR with normal S1 and S2, no murmurs LUNG clear to auscultation LYMPH NODES No cervical lymphadenopathy, No supraclavicular lymphadenopathy and No axillary lymphadenopathy. ABDOMEN ostomy-appears healthy, bowel sounds normoactive, no bruits, soft, non-tender, non-distended, without organomegaly or palpable masses EXTREMITIES No edema RLE, trace edema LLE NEURO Awake, alert and oriented x 3, Normal gait and No involuntary motions. SKIN Skin color, texture, turgor normal, no suspicious rashes or lesions LABS: Component Latest Ref Rng ANDamp; Units 10/20/2017 11/04/2017 11/17/2017 WBC, [place] 3.70 - 11.00 k/uL 8.66 8.06 8.41 RBC, [place] 4.20 - 6.00 m/uL 3.84 (L) 3.99 (L) 3.82 (L) Hemoglobin, [place] 13.0 - 17.0 g/dL 10.6 (L) 11.1 (L) 10.7 (L) Hematocrit, [place] 39.0 - 51.0 % 34.4 (L) 35.9 (L) 34.5 (L) MCV, [place] 80.0 - 100.0 fL 89.6 90.0 90.3 MCH, [place] 26.0 - 34.0 pg 27.6 27.8 28.0 MCHC, [place] 30.5 - 36.0 g/dL 30.8 30.9 31.0 RDW, [place] 11.5 - 15.0 % 19.8 (H) 20.2 (H) 20.6 (H) Platelet Cnt, [place] 150 - 400 k/uL 169 155 160 MPV, [place] 9.0 - 12.7 fL 9.3 9.2 8.6 (L) Absol Gran Count 1.45 - 7.50 k/uL 4.03 4.25 4.12 CMP: Pending ASSESSMENT/PLAN: 1. Malignant neoplasm of sigmoid colon (HCC) - ICD9: 153.3, ICD10: C18.7 (primary diagnosis) 2. Malignant neoplasm of ascending colon (HCC) - ICD9: 153.6, ICD10: C18.2 mpT4a pN1 M0 adenocarcinoma with mucinous features of the ascending colon. There was lymphovascular as well as perineural invasion observed. One tumor deposit. One of 13 nodes. mpT4b pN1 M0 adenocarcinoma of the sigmoid colon. Focal involvement of bladder. Lymphovascular invasion was observed. No tumor deposits. One of 9 nodes involved. 3. History of DVT (deep vein thrombosis) - ICD9: V12.51, ICD10: Z86.718 - Continue eliquis. - Reviewed CBC with pt. - CMP Pending. - Tolerating treatment well. - Proceed as scheduled tomorrow with cycle #8. - Follow up as scheduled. - Pt. aware to call office with any questions/concerns. The patient indicates understanding of these issues and agrees with the plan. JENNIFER Grace LPN, [place] 11/17/2017 10:54 AM Signed Est pt, discuss recent lab results, tx tomorrow Shreya Villalta LPN Referring Provider: SAM GREENBERG [[id number]] Allergies As of Date: 11/17/2017 (No Known Allergies) Date Reviewed: 11/17/2017 Reviewed by: Tameka Marshall - Fully Assessed Reason for Visit: Established Patient [175] Primary Visit Diagnosis:Malignant neoplasm of sigmoid colon (HCC) [C18.7] Other Visit Diagnoses:Malignant neoplasm of ascending colon (HCC) [C18.2] History of DVT (deep vein thrombosis) [Z86.718] Follow-up and Disposition History Recorded Prescriptions as of 11/17/2017 Sig: ELIQUIS 5 MG TABLET TAKE ONE TABLET BY MOUTH TWIC* OMEPRAZOLE 40 MG CAPSULE,ROHIT* Take 1 capsule by mouth once * HYDROCODONE 10 MG-ACETAMINOPH* Take 1 tablet by mouth every * COMPOUNDED PRESCRIPTION Colostomy Care Supplies; 1 m* COMPOUNDED PRESCRIPTION Colostomy Care Supplies; 1 m* LOPERAMIDE 2 MG TABLET Take 2 mg by mouth as needed. ONDANSETRON HCL 8 MG TABLET Take 1 tablet by mouth every * ISOSORBIDE MONONITRATE ER 60 * Take 60 mg by mouth once renu* GABAPENTIN 300 MG CAPSULE Take 300 mg by mouth three ti* NITROGLYCERIN 0.4 MG SUBLINGU* Dissolve 0.4 mg under the ton* * ATENOLOL 50 MG TABLET Take one(1) tablet daily. * ZOCOR 40 MG TABLET Take one(1) tablet daily at b* Problem List As Of Date 11/17/2017 Noted Resolved Bowel obstruction (HCC) [K56.609] INVALID FOR*07/10/2017 Other specified abnormal immunological findings*INVALID FOR* More... Colon cancer (HCC) [C18.9] INVALID FOR* Priority: B More... 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 Arthritis of right hip [M16.11] INVALID FOR* Priority: M Colostomy care ([facility]) [Z43.3] INVALID FOR* Priority: C Colostomy in place ([facility]) [Z93.3] INVALID FOR* Priority: C History of DVT (deep vein thrombosis) [Z86.718] INVALID FOR* Priority: A More... Bladder stone [N21.0] INVALID FOR* Priority: C More... Coronary artery disease involving ugashik rivera*INVALID FOR* Priority: A More... H/O heart artery stent [Z95.5] INVALID FOR* Priority: B More... Nerve pain [M79.2] INVALID FOR* Priority: M More... Hyperlipidemia, mixed [E78.2] INVALID FOR* Priority: A Chronic midline back pain [M54.9, G89.29] INVALID FOR* Visit Notes: >> Shreya Salinas ([place]) [place] Vill[place] Mon Nov 17, 2017 11:00 AM Status: Signed Est pt, discuss recent lab results, tx tomorrow Shreya Markhamantoinette Villalta LPN Encounter Status:Closed by TAMEKA MARSHALL TOUCH UP WORKER on 11/18/17 [place] ABS GR + CBC Collected: 11/17/2017 Status: F Source: [facility] 10:47 AM [facility] REPOSITORY TYPE CODE TESTS RESULT OUT OF REFERENCE UNITS RANGE LAB WWBC 3.70-11.00 k/uL [place] WBC 8.41 LAB WRBC 4.20-6.00 m/uL Low [place] RBC 3.82 LAB WHGB 13.0-17.0 g/dL Low [place] Hemoglobin 10.7 LAB WHCT 39.0-51.0 % Low [place] Hematocrit 34.5 LAB WMCV 80.0-100.0 fL [place] MCV 90.3 LAB WMCH 26.0-34.0 pg [place] MCH 28.0 LAB WMCHC 30.5-36.0 g/dL [place] MCHC 31.0 LAB WRDW 11.5-15.0 % [place] High RDW 20.6 LAB WPLT 150-400 k/uL [place] Platelet Cnt 160 LAB WMPV 9.0-12.7 fL Low [place] MPV 8.6 Result Comment: Test performed at: [facility], [address] [place] [address]. LAB ABGRAN 1.45-7.50 k/uL Absol Gran 4.12 Count COMP METABOLIC PANEL Collected: 11/17/2017 Status: F Source: [facility] [facility] 10:47 AM [facility] REPOSITORY TYPE CODE TESTS RESULT OUT OF REFERENCE UNITS RANGE LAB TP 6.3-8.0 g/dL Protein, Total 6.7 LAB ALB 3.9-4.9 g/dL Albumin 4.1 LAB CA 8.5-10.2 mg/dL Calcium, Total 9.2 LAB TBIL 0.2-1.3 mg/dL Bilirubin, Total 0.3 LAB ALKP 36-108 U/L Alkaline Phosphatase 72 LAB AST 14-40 U/L AST 21 LAB GLU 74-99 mg/dL Glucose High 100 Result Comment: The [place] Diabetes Association (ADA) provides guidance for cutoff values for fasting glucose and random glucose. The ADA defines fasting as no caloric intake for at least 8 hours. Fas ting plasma glucose results between 100 to 125 mg/dL indicate increased risk for diabetes (prediabetes). Fasting plasma glucose results greater than or equal to 126 mg/dL meet the criteria for diagnosis of diabetes. In the absence of unequivocal hyperglycemia, results should be confirmed by repeat testing. In a patient with classic symptoms of hyperglycemia or hyperglycemic crisis, random plasma glucose results greater than or equal to 200 mg/dL meet the criteria for diagnosis of diabetes. Reference: Standards of Medical Care in Diabetes 2016, [place] Diabetes Association. Diabetes Care. 2016.39(Suppl 1). LAB BUN 9-24 mg/dL BUN 17 LAB CRET 0.73-1.22 mg/dL Creatinine 0.98 LAB NA 136-144 mmol/L Sodium 138 LAB K 3.7-5.1 mmol/L Potassium 4.7 LAB CL 97-105 mmol/L Chloride 102 LAB CO2 22-30 mmol/L CO2 25 LAB AGAP 9-18 mmol/L Anion Gap 11 LAB ALT 10-54 U/L ALT 20 LAB GFRAA eGFR- Amer. >60 LAB GFRNAA . eGFR-All Other Races >60 Result Comment: eGFR (Estimated GFR) Units of measure: mL/min/1.73 meters squared eGFR is derived from the reexpressed MDRD Study equation using the following parameters: serum creatinine, age, gender and race. The creatinine assay has been calibrated to be traceable to IDMS. An eGFR <60 mL/min/1.73m2 for >3 months is consistent with chronic kidney disease. Refer to KDOQI guidelines for clinical interpretation. In patients with unstable renal function, e.g. those with acute kidney injury, the eGFR may not accurately reflect actual GFR. Performed By: #### CMP #### [facility] [address] [place], [place] [address] PROGRESS Observed: 11/17/2017 Status: COMPLETED Source: [facility] 10:45 AM [facility] REPOSITORY HNO ID: [id number] Author: Tameka Marshall Service: (none) Author Type: Nurse Practitioner Type: Progress Notes Filed: 11/18/2017 8:04 AM Note Text: Chief Complaint Patient presents with: Established Patient HPI: Sam Hagen is a 77 year old male who presents here today for evaluation for chemotherapy tomorrow. Per Dr. Greenberg's previous note: H/o CAD [place]; treated with PCI balloon angioplasty; no stent) and prostate cancer (tx with radiation x44 fx ~6-8 years ago). ? He presented to [facility] with symptoms of bowel obstruction. He underwent attempted colonoscopy but the procedure was aborted when the scope was not able to be passed through the rectum/sigmoid area. He was transferred to [facility]. He ultimately underwent a total colectomy along with end ileostomy and partial bladder resection on 07/03/2017. He was noted to have 2 foci of tumor one in the cecum and one in the sigmoid colon. The latter tumor was adherent to the bladder invasive to the bladder wall. ? 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 ?TUMOR PENETRATES TO THE SURFACE OF THE VISCERAL PERITONEUM. SURGICAL MARGINS NEGATIVE. 1 OF 13 LYMPH NODES POSITIVE FOR METASTATIC ADENOCARCINOMA AND 1 TUMOR DEPOSIT PRESENT. PERINEURAL AND LYMPHOVASCULAR INVASION PRESENT. B) SMALL INTESTINE, TERMINAL ILEUM, ILEOSTOMY - BENIGN SMALL INTESTINAL TISSUE. C) BLADDER, PARTIAL CYSTECTOMY - FOCAL INVOLVEMENT OF THICK SMOOTH MUSCLE BUNDLES BY ADENOCARCINOMA. ?NO UROTHELIUM PRESENT. D) COLON, SIGMOID, SEGMENTAL RESECTION - INVASIVE LOW GRADE (MODERATELY DIFFERENTIATED) ADENOCARCINOMA (3 CM IN GREATEST DIMENSION). ?SURGICAL MARGINS APPEAR NEGATIVE. BENIGN TRANSECTED BENIGN VAS DEFERENS (2) AND THICK SMOOTH MUSCLE SUGGESTIVE OF BLADDER. 1 OF 9 LYMPH NODES POSITIVE FOR METASTATIC ADENOCARCINOMA ? Presents for ongoing oncologic management. Evaluation for cycle #6. ? Current therapy: 1) Infusional 5FU. No complaints. Appetite:good Energy level:it's low Denies fevers. 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 Past medical history, appointments, medications, allergies reviewed. No changes. EXAM: BP 119/61 Pulse 60 Temp 36.7 ?C (98.1 ?F) Wt 81.6 kg (180 lb) BMI 28.19 kg/m2 APPEARANCE Well appearing, alert, in no acute distress, well-hydrated, well nourished. MOUTH no mucositis inside mouth, one sore to lower/outer left lip HEART RRR with normal S1 and S2, no murmurs LUNG clear to auscultation LYMPH NODES No cervical lymphadenopathy, No supraclavicular lymphadenopathy and No axillary lymphadenopathy. ABDOMEN ostomy-appears healthy, bowel sounds normoactive, no bruits, soft, non-tender, non-distended, without organomegaly or palpable masses EXTREMITIES No edema RLE, trace edema LLE NEURO Awake, alert and oriented x 3, Normal gait and No involuntary motions. SKIN Skin color, texture, turgor normal, no suspicious rashes or lesions LABS: Component Latest Ref Rng AND Units 10/20/2017 11/04/2017 11/17/2017 WBC, [place] 3.70 - 11.00 k/uL 8.66 8.06 8.41 RBC, [place] 4.20 - 6.00 m/uL 3.84 (L) 3.99 (L) 3.82 (L) Hemoglobin, [place] 13.0 - 17.0 g/dL 10.6 (L) 11.1 (L) 10.7 (L) Hematocrit, [place] 39.0 - 51.0 % 34.4 (L) 35.9 (L) 34.5 (L) MCV, [place] 80.0 - 100.0 fL 89.6 90.0 90.3 MCH, [place] 26.0 - 34.0 pg 27.6 27.8 28.0 MCHC, [place] 30.5 - 36.0 g/dL 30.8 30.9 31.0 RDW, [place] 11.5 - 15.0 % 19.8 (H) 20.2 (H) 20.6 (H) Platelet Cnt, [place] 150 - 400 k/uL 169 155 160 MPV, [place] 9.0 - 12.7 fL 9.3 9.2 8.6 (L) Absol Gran Count 1.45 - 7.50 k/uL 4.03 4.25 4.12 CMP: Pending ASSESSMENT/PLAN: 1. Malignant neoplasm of sigmoid colon (HCC) - ICD9: 153.3, ICD10: C18.7 (primary diagnosis) 2. Malignant neoplasm of ascending colon (HCC) - ICD9: 153.6, ICD10: C18.2 mpT4a pN1 M0 adenocarcinoma with mucinous features of the ascending colon. There was lymphovascular as well as perineural invasion observed. One tumor deposit. One of 13 nodes. mpT4b pN1 M0 adenocarcinoma of the sigmoid colon. Focal involvement of bladder. Lymphovascular invasion was observed. No tumor deposits. One of 9 nodes involved. 3. History of DVT (deep vein thrombosis) - ICD9: V12.51, ICD10: Z86.718 - Continue eliquis. - Reviewed CBC with pt. - CMP Pending. - Tolerating treatment well. - Proceed as scheduled tomorrow with cycle #8. - Follow up as scheduled. - Pt. aware to call office with any questions/concerns. The patient indicates understanding of these issues and agrees with the plan. Tameka Marshall CNP COMP METABOLIC PANEL Collected: 11/04/2017 Status: F Source: [place] 1:28 PM [facility] REPOSITORY TYPE CODE TESTS RESULT OUT OF REFERENCE UNITS RANGE LAB TP 6.3-8.0 g/dL Low Protein, Total 6.0 LAB ALB 3.9-4.9 g/dL Albumin 4.1 LAB CA 8.5-10.2 mg/dL Calcium, Total 9.0 LAB TBIL 0.2-1.3 mg/dL Bilirubin, Total 0.2 LAB ALKP 36-108 U/L Alkaline Phosphatase 72 LAB AST 14-40 U/L AST 22 LAB GLU 74-99 mg/dL Glucose 85 Result Comment: The [place] Diabetes Association (ADA) provides guidance for cutoff values for fasting glucose and random glucose. The ADA defines fasting as no caloric intake for at least 8 hours. Fas ting plasma glucose results between 100 to 125 mg/dL indicate increased risk for diabetes (prediabetes). Fasting plasma glucose results greater than or equal to 126 mg/dL meet the criteria for diagnosis of diabetes. In the absence of unequivocal hyperglycemia, results should be confirmed by repeat testing. In a patient with classic symptoms of hyperglycemia or hyperglycemic crisis, random plasma glucose results greater than or equal to 200 mg/dL meet the criteria for diagnosis of diabetes. Reference: Standards of Medical Care in Diabetes 2016, [place] Diabetes Association. Diabetes Care. 2016.39(Suppl 1). LAB BUN 9-24 mg/dL BUN 23 LAB CRET 0.73-1.22 mg/dL Creatinine 1.01 LAB NA 136-144 mmol/L Sodium 141 LAB K 3.7-5.1 mmol/L Potassium 4.5 LAB CL 97-105 mmol/L Chloride 103 LAB CO2 22-30 mmol/L CO2 26 LAB AGAP 9-18 mmol/L Anion Gap 12 LAB ALT 10-54 U/L ALT 22 LAB GFRAA eGFR- Amer. >60 LAB GFRNAA . eGFR-All Other Races >60 Result Comment: eGFR (Estimated GFR) Units of measure: mL/min/1.73 meters squared eGFR is derived from the reexpressed MDRD Study equation using the following parameters: serum creatinine, age, gender and race. The creatinine assay has been calibrated to be traceable to IDMS. An eGFR <60 mL/min/1.73m2 for >3 months is consistent with chronic kidney disease. Refer to KDOQI guidelines for clinical interpretation. In patients with unstable renal function, e.g. those with acute kidney injury, the eGFR may not accurately reflect actual GFR. Performed By: #### CMP #### [facility] [address] [place] [id number] [place] ABS GR + CBC Collected: 11/04/2017 Status: F Source: [place] 1:27 PM [facility] REPOSITORY TYPE CODE TESTS RESULT OUT OF REFERENCE UNITS RANGE LAB WWBC 3.70-11.00 k/uL [place] WBC 8.06 LAB WRBC 4.20-6.00 m/uL Low [place] RBC 3.99 LAB WHGB 13.0-17.0 g/dL Low [place] Hemoglobin 11.1 LAB WHCT 39.0-51.0 % Low [place] Hematocrit 35.9 LAB WMCV 80.0-100.0 fL [place] MCV 90.0 LAB WMCH 26.0-34.0 pg [place] MCH 27.8 LAB WMCHC 30.5-36.0 g/dL [place] MCHC 30.9 LAB WRDW 11.5-15.0 % [place] High RDW 20.2 LAB WPLT 150-400 k/uL [place] Platelet Cnt 155 LAB WMPV 9.0-12.7 fL [place] MPV 9.2 Result Comment: Test performed at: [facility], [address] [place] [address]. LAB ABGRAN 1.45-7.50 k/uL Absol Gran 4.25 Count PROGRESS Observed: 10/30/2017 Status: COMPLETED Source: [place] 6:17 PM [facility] [place] REPOSITORY HNO ID: [id number] Author: Tasha Titus Service: (none) Author Type: Physician Type: Progress Notes Filed: 10/30/2017 6:34 PM Note Text: HISTORY AND PHYSICAL Sam Hagen 1940 REFERRING PHYSICIAN: Sam Greenberg DO CHIEF COMPLAINT: ostomy hernia HPI: The patient is a 77 year old male with a complaint of challenges at his ostomy site. He presented to [facility] with symptoms of bowel obstruction. He underwent attempted colonoscopy but the procedure was aborted when the scope was not able to be passed through the rectum/sigmoid area. He was transferred to [facility]. He ultimately underwent a total colectomy along with end ileostomy and partial bladder resection on 07/03/2017. He was noted to have 2 foci of tumor one in the cecum and one in the sigmoid colon. The latter tumor was adherent to the bladder invasive to the bladder wall. ? 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 ?TUMOR PENETRATES TO THE SURFACE OF THE VISCERAL PERITONEUM. SURGICAL MARGINS NEGATIVE. 1 OF 13 LYMPH NODES POSITIVE FOR METASTATIC ADENOCARCINOMA AND 1 TUMOR DEPOSIT PRESENT. PERINEURAL AND LYMPHOVASCULAR INVASION PRESENT. B) SMALL INTESTINE, TERMINAL ILEUM, ILEOSTOMY - BENIGN SMALL INTESTINAL TISSUE. C) BLADDER, PARTIAL CYSTECTOMY - FOCAL INVOLVEMENT OF THICK SMOOTH MUSCLE BUNDLES BY ADENOCARCINOMA. ?NO UROTHELIUM PRESENT. D) COLON, SIGMOID, SEGMENTAL RESECTION - INVASIVE LOW GRADE (MODERATELY DIFFERENTIATED) ADENOCARCINOMA (3 CM IN GREATEST DIMENSION). ?SURGICAL MARGINS APPEAR NEGATIVE. BENIGN TRANSECTED BENIGN VAS DEFERENS (2) AND THICK SMOOTH MUSCLE SUGGESTIVE OF BLADDER. 1 OF 9 LYMPH NODES POSITIVE FOR METASTATIC ADENOCARCINOMA He is currently undergoing chemotherapy. The patient notes irritation at his ileostomy site with occasional bleeding, and notes what is listed as a degree of stomal prolapse. The patient presents today, but does not have a replacement 1 piece stoma bag. He did not want me to remove his stoma bag today. He notes that he cuts a fishmouth shaped opening in the stoma bag. He states he was given multiple different stoma bag appliances but is not seen enterostomal therapist to assist in how to place his stoma bag. His son is helping him care for his stoma currently. We looked at ileostomy pictures and pictures of ileostomy irritation on the Internet. The patient implied that his major area of irritation was the skin surrounding the stoma that was the area that was somewhat chapped and bleeding. The patient is being seen by me today at the request of Dr. Greenberg for my opinion and advice regarding irritation at his ileostomy site. PAST MEDICAL HISTORY Diagnosis Date - Arthritis of right hip 09/25/2017 - Arthritis, lumbar spine ([facility]) 09/25/2017 - Bladder stone 09/25/[address] Bagley - Colon cancer ([facility]) 06/30/[address] Greenberg, Had extension into the bladder wall and hd a partial cystectomy. - Colostomy care ([facility]) 09/25/2017 - Colostomy in place ([facility]) 09/25/2017 - Coronary artery disease involving [place]ash[place] coronary artery 09/25/[address] Huntley - H/O heart artery stent 09/25/2017 4 stents 1993 - History of DVT (deep vein thrombosis) 09/25/2017 1st clot end of Aug 2017, started on Eliquis 09/15/2017 needs to be on till 03/15/2018 - Hyperlipidemia, mixed 09/25/2017 - Malignant neoplasm of ascending colon ([facility]) 07/29/2017 - Malignant neoplasm of sigmoid colon ([facility]) 07/29/2017 - Myocardial infarct - Nerve pain 09/25/2017 Right side hip and up the spine - Other and unspecified hyperlipidemia - Pain in joint, site unspecified - S/P total colectomy 07/16/2017 - Unspecified essential hypertension - 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 HYDROcodone-Acetaminophen (NORCO) 10-325 mg per tablet Take 1 tablet by mouth every 6 hours as needed for up to 30 days.Earliest Fill Date: 10/23/17 COMPOUNDED PRESCRIPTION Colostomy Care Supplies; 1 months worth with 11 refills (fax # [phone])3M Cavilon No-sting Barrier Film Wipes # [id number] Qty 1 box of 50Stomahesive Paste 2 oz tube # [id number] Qty 1 tube COMPOUNDED PRESCRIPTION Colostomy Care Supplies; 1 months worth with 11 refills (fax # [phone])Adapt Oval Convex Ring 7/8 x 1 1/2 # [id number] Qty 1 box 10 eachPremier 1-Piece Soft Convvex Drainable pouch Cut to fit 1-1/2 Qty 2 box 5 each apixaban (ELIQUIS) 5 mg tab tab(s) Take 1 tablet by mouth twice daily. Loperamide HCl (IMODIUM A-D) 2 mg tab Take 2 mg by mouth as needed. ondansetron (ZOFRAN) 8 mg tablet Take 1 tablet by mouth every 8 hours as needed for Nausea/Vomiting. Indications: CANCER CHEMOTHERAPY-INDUCED NAUSEA AND VOMITING isosorbide mononitrate ER (IMDUR) 60 mg 24 hr tablet Take 60 mg by mouth once daily. gabapentin (NEURONTIN) 300 mg capsule Take 300 mg by mouth three times daily. nitroglycerin sublingual (NITROSTAT) 0.4 mg SL tablet Dissolve 0.4 mg under the tongue every 5 minutes as needed. ATENOLOL 50 MG TAB Take one(1) tablet daily. simvastatin(ZOCOR 40 MG TAB) Take one(1) tablet daily at bedtime. No current facility-administered medications for this visit. ALLERGIES: Review of patient's allergies indicates no known allergies. PERSONAL HISTORY: Social History Marital status: Spouse name: Years of education: Number of children: Social History Main Topics Smoking status: Never Smoker Smokeless status: Current User Types: Chew Alcohol use: Yes Comment: rare Drug use: No FAMILY HISTORY: FAMILY HISTORY Problem Relation Age of Onset - Prostate Cancer Father - Cancer Father skin - Heart Mother - Stroke Mother - Diabetes Mother REVIEW OF SYMPTOMS: The review of systems data was entered by the nurse and reviewed by mo Nursing Notes: Tatiana Hoyos LPN 10/30/2017 1:04 PM Signed REVIEW OF SYSTEMS: General: The patient NOTES fatigue, denies weight loss, NOTES weight gain, denies feeling hot, and denies feelings of cold. Eyes: The patient denies glaucoma, denies eye injury/surgery, wears glasses or contacts. Ear/Nose/Throat: The patient denies allergies, denies hayfever, denies ear infections, and denies bloody noses. Cardiovascular: The patient denies chest pain, denies heart disease, denies high blood pressure,denies cardiac stent, NOTES prior heart attack, denies irregular heart beat, denies high cholesterol, denies poor circulation, denies heart failure, other cardiac issues, denies claudication, denies cold feet, denies peripheral arterial stent. Respiratory: The patient denies tuberculosis, NOTES pneumonia, denies frequent cough, denies pulmonary embolism, denies shortness of breath, and denies coughing up blood. Gastrointestinal: The patient denies difficulty swallowing, denies acid reflux, denies ulcers, denies vomiting, denies jaundice/hepatitis, NOTES gallbladder problems, denies black or tarry stools, denies hemorrhoids, denies bleeding from rectum, denies diverticulitis, denies constipation, denies diarrhea, denies loss of stool control, and denies hernias. Kidney/Bladder: The patient NOTES kidney stones, denies urine infections, and denies bloody urine. Skin: The patient denies a history of skin cancer, denies bleeding/changing moles, and NOTES a history of skin rash. Neurologic: The patient denies a history of epilepsy/convulsions, denies headaches, denies head/spinal injuries, and denies stroke/TIA. Psychiatric: The patient denies psychiatric medications, denies depression, and denies voices, denies substance abuse. Endocrine: The patient denies thyroid disorders, denies diabetes, and denies hormonal problems. Hematologic: The patient NOTES a history of bruising, denies bleeding, and denies anemia, NOTES blood clots. Infections: The patient denies a history of measles and mumps, denies rheumatic fever, and denies sexually transmitted diseases. Musculoskeletal: The patient denies back pain/injury, NOTES back problems, denies sciatica, denies knee/foot trouble, NOTES arthritis, or denies gout. When was patient's last Mammogram screening? N/A Last Colonoscopy: 06/2017 Tatiana Hoyos LPN PHYSICAL EXAMINATION: General: The patient is 77 year old male, well nourished, well hydrated in no acute distress. The patient is oriented to time, place, and person. VITALS: Blood pressure 120/68, pulse 70, weight 81.6 kg (180 lb). HEENT: Normal cephalic, ataumatic, pupils are equally round, sclera are anicteric, mucous membranes are moist, oropharynx is clear. Neck has no masses, asymmetry or lymphadenopathy. Thyroid is unremarkable. Respiratory: Clear to auscultation and percussion. Normal respiratory excursion and pattern. Cardiac: Examination is regular rate and rhythm. Abdominal exam: Soft, nontender, with no palpable masses. No hepatosplenomegaly. No palpable hernias. Well-healed midline scar. Left lower quadrant ileostomy with bag in place. Ileostomy nipple is not able to be visualized underneath the wafer. There is liquid succus without signs of blood in his ostomy bag. Rectal exam: exam deferred Extremities: no clubbing, cyanosis or edema. No adenopathy. Other: LABORATORY VALUES: As Noted RADIOLOGIC STUDIES: As Noted Assessment IMPRESSION: Ileostomy issues-sounding like skin irritation from ileostomy secretion leakage PLAN: I discussed with the patient the fact that normally. The wafer is cut to a perfect cachil dehe to the size of the nipple of the ileostomy and that stoma paste. We be placed around to prevent seepage of the irritating ileostomy fluid back, the skin. I arranged an appointment for him to be seen with Leida Coleman-interstomal therapist at [facility] to evaluate and assist in care of her stoma. Diagnoses: (C18.7) Malignant neoplasm of sigmoid colon (HCC) (primary encounter diagnosis) (C18.2) Malignant neoplasm of ascending colon (HCC) (Z43.2) Attention to ileostomy (HCC) My findings have been communicated to Dr. Greenberg via shared medical record. This note will be forwarded to Dr. Vishal Jones MD. Return to Clinic: The patient is instructed to follow-up with me as needed. This note was partially generated using [employer] voice recognition system, and there may be some incorrect words, spellings, and punctuation that were not noted in checking the note before saving. Tasha Titus MD CNOVSP Observed: 10/20/2017 Status: COMPLETED Source: [place] 8:30 AM [facility] REPOSITORY Visit (SP) Office ([place]) SAM HAGEN ([id number]) 1940 M Date Time Provider Department 10/20/17 8:30 AM SAM GREENBERG During your visit today, we recorded the following information about you: Temperature Pulse Blood pressure Weight 97.8 degrees 64/minute 133/72 81.6 kg Sam Greenberg DO 10/20/2017 9:02 AM Signed Diagnosis: 1) Stage III colon cancer. HPI: The patient is 77 yo male with PMH significant for CAD ([place] 1993; treated with PCI balloon angioplasty; no stent) and prostate cancer (tx with radiation x44 fx ~6-8 years ago). He presented to [facility] with symptoms of bowel obstruction. He underwent attempted colonoscopy but the procedure was aborted when the scope was not able to be passed through the rectum/sigmoid area. He was transferred to [facility]. He ultimately underwent a total colectomy along with end ileostomy and partial bladder resection on 07/03/2017. He was noted to have 2 foci of tumor one in the cecum and one in the sigmoid colon. The latter tumor was adherent to the bladder invasive to the bladder wall. 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 ?TUMOR PENETRATES TO THE SURFACE OF THE VISCERAL PERITONEUM. SURGICAL MARGINS NEGATIVE. 1 OF 13 LYMPH NODES POSITIVE FOR METASTATIC ADENOCARCINOMA AND 1 TUMOR DEPOSIT PRESENT. PERINEURAL AND LYMPHOVASCULAR INVASION PRESENT. B) SMALL INTESTINE, TERMINAL ILEUM, ILEOSTOMY - BENIGN SMALL INTESTINAL TISSUE. C) BLADDER, PARTIAL CYSTECTOMY - FOCAL INVOLVEMENT OF THICK SMOOTH MUSCLE BUNDLES BY ADENOCARCINOMA. ?NO UROTHELIUM PRESENT. D) COLON, SIGMOID, SEGMENTAL RESECTION - INVASIVE LOW GRADE (MODERATELY DIFFERENTIATED) ADENOCARCINOMA (3 CM IN GREATEST DIMENSION). ?SURGICAL MARGINS APPEAR NEGATIVE. BENIGN TRANSECTED BENIGN VAS DEFERENS (2) AND THICK SMOOTH MUSCLE SUGGESTIVE OF BLADDER. 1 OF 9 LYMPH NODES POSITIVE FOR METASTATIC ADENOCARCINOMA Presents for ongoing oncologic management. Evaluation for cycle #6. Current therapy: 1) Infusional 5FU. Interim history: He is noticed more herniation around the stoma. It doesn't hurt. As a little tender if he pushes on the area. Ostomy is working well. He has occasional watery stools that are well controlled with Imodium. He has had several episodes of mild nausea associated with chemotherapy. There relieved with ondansetron. He is not having any other direct side effect of the chemotherapy. 2 nights this past several days he's woken up at nighttime with substernal burning. He took nitroglycerin for which seemed to help but some. He sees the cardiology group at [facility]. He is due for a routine stress test next month. He has no exertional chest pain, tightness or pressure. No cough or wheeze. No shortness of breath at rest. No lower extremity swelling from the DVT has subsided considerably. He is tolerating anticoagulation well with no unusual bleeding or easy bruising. PMH, medications and allergies personally reviewed by me today. Any changes documented in appropriate section. ROS: Constitutional: Denies episodes of fever and night sweats. Not significantly fatigued. Neuro: Denies SHERIFF, vertigo, dizziness and imbalance. He has symptoms of bilateral carpal tunnel syndrome. No neuropathy of the lower extremities. HEENT: No recent change in voice, vision or hearing. Resp: Denies hemoptysis. CVS: Denies PND and orthopnea. GI: Denies dysgeusia. Denies symptoms of stomatitis. Denies dysphagia and odynophagia. Endo: Denies hot flashes. Denies polyuria and polydipsia. Denies heat and cold intolerance. Derm: Denies rash. Denies jaundice and diffuse pruritis. Heme: Denies unusual bleeding and unexplained bruising. Psych: Normal mood. PHYSICAL EXAM: Vitals: Blood pressure 133/72, pulse 64, temperature 36.6 ?C (97.8 ?F), temperature source Temporal Artery, weight 81.6 kg (180 lb). Well-appearing and in no acute distress. EYES: Sclerae are anicteric bilaterally. ENT: Oral mucosa is unremarkable. NECK: Supple. LYMPHATIC: There is no palpable cervical, supraclavicular, axillary adenopathy. RESPIRATORY: Inspiratory breath sounds are of diminished intensity in all norris. CARDIOVASCULAR: Rhythm is regular. Normal intensity S1/S2. There is no gallop or murmur. ABDOMEN: The abdomen is nondistended. Midline incision well- healed. Ostomy appears healthy with area of surrounding reducible hernia. Extremities: Trace edema left. SKIN: No jaundice or rash. No petechiae. 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 No focal motor weakness. ASSESSMENT/PLAN: (C18.2) Malignant neoplasm of ascending colon (HCC) (primary encounter diagnosis) (C18.7) Malignant neoplasm of sigmoid colon (HCC) Assessment: -mpT4a pN1 M0 adenocarcinoma with mucinous features of the ascending colon. There was lymphovascular as well as perineural invasion observed. One tumor deposit. One of 13 nodes. -mpT4b pN1 M0 adenocarcinoma of the sigmoid colon. Focal involvement of bladder. Lymphovascular invasion was observed. No tumor deposits. One of 9 nodes involved. -He is tolerating adjuvant chemotherapy, infusional 5-fluorouracil well. -Discussed plan to complete 12 cycles. -Will consider radiation oncology opinion after completing chemotherapy. Plan: -Continue therapy. (Z86.728) History of DVT (deep vein thrombosis) Assessment: -Ultrasound of the left leg on 09/03/2017 revealed acute DVT in the femoral vein at the distal thigh extending into the popliteal vein. Thrombus was noted in the gastrocnemius vein at the popliteal junction and in the posterior tibial veins and peroneal veins from proximal to mid calf. -He is tolerating anticoagulation very well. Plan: -Continue anticoagulation for approximately 3 months beyond chemotherapy. (K21.9) Gastro-esophageal reflux disease without esophagitis Assessment: -Given the onset and characteristics of the chest discomfort he had during the night, reflux is most likely. Plan: -Omeprazole (PRILOSEC) 40 mg capsule (M54.9, G89.29) Other chronic back pain Assessment: -Chronic low back pain for which he takes Vicodin 10/325 one tablet every 6 hours. He's been on this long-term as previously prescribed by his primary care physician. Plan: -PCP to continue management. Sam Greenberg DO Referring Provider: SAM GREENBERG [[id number]] Allergies As of Date: 10/20/2017 (No Known Allergies) Date Reviewed: 10/20/2017 Reviewed by: Asha Prater - Fully Assessed Reason for Visit: Established Patient [[id number]] Primary Visit Diagnosis:Malignant neoplasm of sigmoid colon (HCC) [C18.7] Other Visit Diagnoses:Malignant neoplasm of ascending colon (HCC) [C18.2] History of DVT (deep vein thrombosis) [Z86.718] Gastro-esophageal reflux disease without esophagitis [K21.9] Chronic midline back pain, unspecified back location [M54.9, G89.29] Order(s):Omeprazole (PRILOSEC) 40 mg capsuleTake 1 capsule by mouth once daily.Disp: 30 capsuleRfl: 5 Follow-up and Disposition History Recorded Prescriptions as of 10/20/2017 Sig: HYDROCODONE 10 MG-ACETAMINOPH* Take 1 tablet by mouth every * COMPOUNDED PRESCRIPTION Colostomy Care Supplies; 1 m* COMPOUNDED PRESCRIPTION Colostomy Care Supplies; 1 m* APIXABAN 5 MG TABLET Take 1 tablet by mouth twice * LOPERAMIDE 2 MG TABLET Take 2 mg by mouth as needed. ONDANSETRON HCL 8 MG TABLET Take 1 tablet by mouth every * ISOSORBIDE MONONITRATE ER 60 * Take 60 mg by mouth once renu* GABAPENTIN 300 MG CAPSULE Take 300 mg by mouth three ti* NITROGLYCERIN 0.4 MG SUBLINGU* Dissolve 0.4 mg under the ton* * ATENOLOL 50 MG TABLET Take one(1) tablet daily. * ZOCOR 40 MG TABLET Take one(1) tablet daily at b* OMEPRAZOLE 40 MG CAPSULE,ROHIT* Take 1 capsule by mouth once * Problem List As Of Date 10/20/2017 Noted Resolved Bowel obstruction [K56.609] INVALID FOR*07/10/2017 Other specified abnormal immunological findings*INVALID FOR* More... Colon cancer (HCC) [C18.9] INVALID FOR* Priority: B More... 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 Arthritis of right hip [M16.11] INVALID FOR* Priority: M Colostomy care ([facility]) [Z43.3] INVALID FOR* Priority: C Colostomy in place ([facility]) [Z93.3] INVALID FOR* Priority: C History of DVT (deep vein thrombosis) [Z86.718] INVALID FOR* Priority: A More... Bladder stone [N21.0] INVALID FOR* Priority: C More... Coronary artery disease involving [place] rivera*INVALID FOR* Priority: A More... H/O heart artery stent [Z95.5] INVALID FOR* Priority: B More... Nerve pain [M79.2] INVALID FOR* Priority: M More... Hyperlipidemia, mixed [E78.2] INVALID FOR* Priority: A Chronic midline back pain [M54.9, G89.29] INVALID FOR* Encounter Status:Closed by SAM GREENBERG DO on 10/20/17 PROGRESS Observed: 10/20/2017 Status: COMPLETED Source: [place] 8:26 AM [facility] REPOSITORY HNO ID: [id number] Author: Sam Greenberg Service: (none) Author Type: Physician Type: Progress Notes Filed: 10/20/2017 9:02 AM Note Text: Diagnosis: 1) Stage III colon cancer. HPI: The patient is 77 yo male with PMH significant for CAD ([place] 1993; treated with PCI balloon angioplasty; no stent) and prostate cancer (tx with radiation x44 fx ~6-8 years ago). He presented to [facility] with symptoms of bowel obstruction. He underwent attempted colonoscopy but the procedure was aborted when the scope was not able to be passed through the rectum/sigmoid area. He was transferred to [facility]. He ultimately underwent a total colectomy along with end ileostomy and partial bladder resection on 07/03/2017. He was noted to have 2 foci of tumor one in the cecum and one in the sigmoid colon. The latter tumor was adherent to the bladder invasive to the bladder wall. 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 ?TUMOR PENETRATES TO THE SURFACE OF THE VISCERAL PERITONEUM. SURGICAL MARGINS NEGATIVE. 1 OF 13 LYMPH NODES POSITIVE FOR METASTATIC ADENOCARCINOMA AND 1 TUMOR DEPOSIT PRESENT. PERINEURAL AND LYMPHOVASCULAR INVASION PRESENT. B) SMALL INTESTINE, TERMINAL ILEUM, ILEOSTOMY - BENIGN SMALL INTESTINAL TISSUE. C) BLADDER, PARTIAL CYSTECTOMY - FOCAL INVOLVEMENT OF THICK SMOOTH MUSCLE BUNDLES BY ADENOCARCINOMA. ?NO UROTHELIUM PRESENT. D) COLON, SIGMOID, SEGMENTAL RESECTION - INVASIVE LOW GRADE (MODERATELY DIFFERENTIATED) ADENOCARCINOMA (3 CM IN GREATEST DIMENSION). ?SURGICAL MARGINS APPEAR NEGATIVE. BENIGN TRANSECTED BENIGN VAS DEFERENS (2) AND THICK SMOOTH MUSCLE SUGGESTIVE OF BLADDER. 1 OF 9 LYMPH NODES POSITIVE FOR METASTATIC ADENOCARCINOMA Presents for ongoing oncologic management. Evaluation for cycle #6. Current therapy: 1) Infusional 5FU. Interim history: He is noticed more herniation around the stoma. It doesn't hurt. As a little tender if he pushes on the area. Ostomy is working well. He has occasional watery stools that are well controlled with Imodium. He has had several episodes of mild nausea associated with chemotherapy. There relieved with ondansetron. He is not having any other direct side effect of the chemotherapy. 2 nights this past several days he's woken up at nighttime with substernal burning. He took nitroglycerin for which seemed to help but some. He sees the cardiology group at [facility]. He is due for a routine stress test next month. He has no exertional chest pain, tightness or pressure. No cough or wheeze. No shortness of breath at rest. No lower extremity swelling from the DVT has subsided considerably. He is tolerating anticoagulation well with no unusual bleeding or easy bruising. PMH, medications and allergies personally reviewed by me today. Any changes documented in appropriate section. ROS: Constitutional: Denies episodes of fever and night sweats. Not significantly fatigued. Neuro: Denies SHERIFF, vertigo, dizziness and imbalance. He has symptoms of bilateral carpal tunnel syndrome. No neuropathy of the lower extremities. HEENT: No recent change in voice, vision or hearing. Resp: Denies hemoptysis. CVS: Denies PND and orthopnea. GI: Denies dysgeusia. Denies symptoms of stomatitis. Denies dysphagia and odynophagia. Endo: Denies hot flashes. Denies polyuria and polydipsia. Denies heat and cold intolerance. Derm: Denies rash. Denies jaundice and diffuse pruritis. Heme: Denies unusual bleeding and unexplained bruising. Psych: Normal mood. PHYSICAL EXAM: Vitals: Blood pressure 133/72, pulse 64, temperature 36.6 ?C (97.8 ?F), temperature source Temporal Artery, weight 81.6 kg (180 lb). Well-appearing and in no acute distress. EYES: Sclerae are anicteric bilaterally. ENT: Oral mucosa is unremarkable. NECK: Supple. LYMPHATIC: There is no palpable cervical, supraclavicular, axillary adenopathy. RESPIRATORY: Inspiratory breath sounds are of diminished intensity in all norris. CARDIOVASCULAR: Rhythm is regular. Normal intensity S1/S2. There is no gallop or murmur. ABDOMEN: The abdomen is nondistended. Midline incision well- healed. Ostomy appears healthy with area of surrounding reducible hernia. Extremities: Trace edema left. SKIN: No jaundice or rash. No petechiae. 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 No focal motor weakness. ASSESSMENT/PLAN: (C18.2) Malignant neoplasm of ascending colon (HCC) (primary encounter diagnosis) (C18.7) Malignant neoplasm of sigmoid colon (HCC) Assessment: -mpT4a pN1 M0 adenocarcinoma with mucinous features of the ascending colon. There was lymphovascular as well as perineural invasion observed. One tumor deposit. One of 13 nodes. -mpT4b pN1 M0 adenocarcinoma of the sigmoid colon. Focal involvement of bladder. Lymphovascular invasion was observed. No tumor deposits. One of 9 nodes involved. -He is tolerating adjuvant chemotherapy, infusional 5-fluorouracil well. -Discussed plan to complete 12 cycles. -Will consider radiation oncology opinion after completing chemotherapy. Plan: -Continue therapy. (Z86.718) History of DVT (deep vein thrombosis) Assessment: -Ultrasound of the left leg on 09/03/2017 revealed acute DVT in the femoral vein at the distal thigh extending into the popliteal vein. Thrombus was noted in the gastrocnemius vein at the popliteal junction and in the posterior tibial veins and peroneal veins from proximal to mid calf. -He is tolerating anticoagulation very well. Plan: -Continue anticoagulation for approximately 3 months beyond chemotherapy. (K21.9) Gastro-esophageal reflux disease without esophagitis Assessment: -Given the onset and characteristics of the chest discomfort he had during the night, reflux is most likely. Plan: -Omeprazole (PRILOSEC) 40 mg capsule (M54.9, G89.29) Other chronic back pain Assessment: -Chronic low back pain for which he takes Vicodin 10/325 one tablet every 6 hours. He's been on this long-term as previously prescribed by his primary care physician. Plan: -PCP to continue management. Sam Greenberg, DO ARIAS ABS GR + CBC Collected: 10/20/2017 Status: F Source: [place] 8:15 AM [facility] REPOSITORY TYPE CODE TESTS RESULT OUT OF REFERENCE UNITS RANGE LAB WWBC 3.70-11.00 k/uL [place] WBC 8.66 LAB WRBC 4.20-6.00 m/uL Low [place] RBC 3.84 LAB WHGB 13.0-17.0 g/dL Low [place] Hemoglobin 10.6 LAB WHCT 39.0-51.0 % Low [place] Hematocrit 34.4 LAB WMCV 80.0-100.0 fL [place] MCV 89.6 LAB WMCH 26.0-34.0 pg [place] MCH 27.6 LAB WMCHC 30.5-36.0 g/dL [place] MCHC 30.8 LAB WRDW 11.5-15.0 % [place] High RDW 19.8 LAB WPLT 150-400 k/uL [place] Platelet Cnt 169 LAB WMPV 9.0-12.7 fL [place] MPV 9.3 Result Comment: Test performed at: [facility] [place] [facility] [place], [address] [place] [address]. LAB ABGRAN 1.45-7.50 k/uL Absol Gran 4.03 Count [place] ISTAT BMP Collected: 10/20/2017 Status: F Source: [place] 8:15 AM [facility] REPOSITORY TYPE CODE TESTS RESULT OUT OF REFERENCE UNITS RANGE LAB NAWB 135-146 mmol/L Sodium, Whole 140 Bld LAB K1WB 3.5-5.0 mmol/L Potassium,Who 4.2 le Bld LAB CLWB 98-110 mmol/L Chloride, 101 Whole Bld LAB ICAWB 1.08-1.30 mmol/L Ionized 1.30 Calcium, WB Result Comment: Please note: This value represents ionized calcium not total calcium. LAB CO2WB 23-32 mmol/L TCO2, Whole 26 Blood LAB GLUWB 65-100 mg/dL High Glucose, 109 Whole Bld LAB BUNWB 10-25 mg/dL BUN, Whole 14 Blood LAB BCRET 0.70-1.40 mg/dL Creatinine,Wh 0.80 ole Bld LAB AGAPWB 0-15 mmol/L Anion Gap, 13 Whole Bld LAB GFRAA eGFR- >60 Amer. LAB GFRNAA . eGFR-All >60 Other Races Result Comment: eGFR (Estimated GFR) Units of measure: mL/min/1.73 meters squared eGFR is derived from the reexpressed MDRD Study equation using the following parameters: serum creatinine, age, gender and race. The creatinine assay has been calibrated to be traceable to IDMS. An eGFR <60 mL/min/1.73m2 for >3 months is consistent with chronic kidney disease. Refer to KDOQI guidelines for clinical interpretation. In patients with unstable renal function, e.g. those with acute kidney injury, the eGFR may not accurately reflect actual GFR. HEPATIC FUNCTN PANEL Collected: 10/20/2017 Status: F Source: [place] 8:15 AM [facility] REPOSITORY TYPE CODE TESTS RESULT OUT OF REFERENCE UNITS RANGE LAB ALB 3.9-4.9 g/dL Albumin 4.3 LAB TBIL 0.2-1.3 mg/dL Bilirubin, Total 0.2 LAB CBIL <0.2 mg/dL Bilirubin,Conjuga <0.2 dilma LAB ALKP 36-108 U/L Alkaline Phosphatase 74 LAB AST 14-40 U/L AST 15 LAB ALT 10-54 U/L ALT 20 LAB TP 6.3-8.0 g/dL Protein, Total 6.8 Performed By: #### HFP #### [facility] [place] [facility] [address] [place], [place] [address] HOSP Observed: 10/09/2017 Status: COMPLETED Source: [place] 4:00 PM [facility] REPOSITORY Infusion Center ([facility]) SAM HAGEN ([id number]) 1940 M Date Time Provider Department 10/09/17 4:00 PM [facility] During your visit today, we recorded the following information about you: Referring Provider: SAM GREENBERG [[id number]] Allergies As of Date: 10/09/2017 (No Known Allergies) Date Reviewed: 10/07/2017 Reviewed by: Talon Curry (Rn) DIXIE Allan - Fully Assessed Reason for Visit: CADD Pump D/C [1760] Primary Visit Diagnosis:Malignant neoplasm of sigmoid colon (HCC) [C18.7] Other Visit Diagnosis:Malignant neoplasm of ascending colon (HCC) [C18.2] Order(s):PUMP DISCONTINUE [[id number]] Order #: [id number]: 1 Prescriptions as of 10/09/2017 Sig: COMPOUNDED PRESCRIPTION Colostomy Care Supplies; 1 m* COMPOUNDED PRESCRIPTION Colostomy Care Supplies; 1 m* APIXABAN 5 MG TABLET Take 1 tablet by mouth twice * HYDROCODONE 10 MG-ACETAMINOPH* Take 1 tablet by mouth every * LOPERAMIDE 2 MG TABLET Take 2 mg by mouth as needed. ONDANSETRON HCL 8 MG TABLET Take 1 tablet by mouth every * ISOSORBIDE MONONITRATE ER 60 * Take 60 mg by mouth once renu* GABAPENTIN 300 MG CAPSULE Take 300 mg by mouth three ti* NITROGLYCERIN 0.4 MG SUBLINGU* Dissolve 0.4 mg under the ton* * ATENOLOL 50 MG TABLET Take one(1) tablet daily. * ZOCOR 40 MG TABLET Take one(1) tablet daily at b* Problem List As Of Date 10/09/2017 Noted Resolved Bowel obstruction [K56.609] INVALID FOR*07/10/2017 Other specified abnormal immunological findings*INVALID FOR* More... Colon cancer (HCC) [C18.9] INVALID FOR* Priority: B More... 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 Arthritis of right hip [M16.11] INVALID FOR* Priority: M Colostomy care ([facility]) [Z43.3] INVALID FOR* Priority: C Colostomy in place ([facility]) [Z93.3] INVALID FOR* Priority: C History of DVT (deep vein thrombosis) [Z86.718] INVALID FOR* Priority: A More... Bladder stone [N21.0] INVALID FOR* Priority: C More... Coronary artery disease involving [place] river[place]*INVALID FOR* Priority: A More... H/O heart artery stent [Z95.5] INVALID FOR* Priority: B More... Nerve pain [M79.2] INVALID FOR* Priority: M More... Hyperlipidemia, mixed [E78.2] INVALID FOR* Priority: A Encounter Status:Closed by FRANKO SAGE on 10/09/17 HOSP Observed: 10/07/2017 Status: COMPLETED Source: [place] 10:30 AM [facility] ([facility]) SAM HAGEN ([id number]) 1940 M Date Time Provider Department 10/07/17 10:30 AM TREATMENT RM 8 [facility] [place] During your visit today, we recorded the following information about you: Temperature Pulse Blood pressure 97.3 degrees 71/minute 122/53 Referring Provider: SAM GREENBERG [[id number]] Allergies As of Date: 10/07/2017 (No Known Allergies) Date Reviewed: 10/07/2017 Reviewed by: Talon Curry (Rn) DIXIE Allan - Fully Assessed Reason for Visit: Chemotherapy Treatment [771] Primary Visit Diagnosis:Malignant neoplasm of sigmoid colon (HCC) [C18.7] Other Visit Diagnosis:Malignant neoplasm of ascending colon (HCC) [C18.2] Order(s):[] ondansetron (PF) 8 mg injection (ZOFRAN)Disp: Rfl: [] leucovorin 776 mg in NaCl 0.9% 250 mLDisp: Rfl: [] fluorouracil 776 mg injection (ADRUCIL)Disp: Rfl: TREATMENT PARAMETERS [[id number]] Order #: [id number]: 1 Prescriptions as of 10/07/2017 Sig: COMPOUNDED PRESCRIPTION Colostomy Care Supplies; 1 m* COMPOUNDED PRESCRIPTION Colostomy Care Supplies; 1 m* APIXABAN 5 MG TABLET Take 1 tablet by mouth twice * HYDROCODONE 10 MG-ACETAMINOPH* Take 1 tablet by mouth every * LOPERAMIDE 2 MG TABLET Take 2 mg by mouth as needed. ONDANSETRON HCL 8 MG TABLET Take 1 tablet by mouth every * ISOSORBIDE MONONITRATE ER 60 * Take 60 mg by mouth once renu* GABAPENTIN 300 MG CAPSULE Take 300 mg by mouth three ti* NITROGLYCERIN 0.4 MG SUBLINGU* Dissolve 0.4 mg under the ton* * ATENOLOL 50 MG TABLET Take one(1) tablet daily. * ZOCOR 40 MG TABLET Take one(1) tablet daily at b* Problem List As Of Date 10/07/2017 Noted Resolved Bowel obstruction [K56.609] INVALID FOR*07/10/2017 Other specified abnormal immunological findings*INVALID FOR* More... Colon cancer (HCC) [C18.9] INVALID FOR* Priority: B More... 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 Arthritis of right hip [M16.11] INVALID FOR* Priority: M Colostomy care ([facility]) [Z43.3] INVALID FOR* Priority: C Colostomy in place ([facility]) [Z93.3] INVALID FOR* Priority: C History of DVT (deep vein thrombosis) [Z86.718] INVALID FOR* Priority: A More... Bladder stone [N21.0] INVALID FOR* Priority: C More... Coronary artery disease involving ug[place] rivera*INVALID FOR* Priority: A More... H/O heart artery stent [Z95.5] INVALID FOR* Priority: B More... Nerve pain [M79.2] INVALID FOR* Priority: M More... Hyperlipidemia, mixed [E78.2] INVALID FOR* Priority: A Prescriptions ordered this encounter Disp Refills Start End ONDANSETRON HCL (PF) 4 MG/2 ML INJEC* 10/07/2017 10/07/2017 Route: INTRAVENOUS LEUCOVORIN IV PGBK 10/07/2017 10/07/2017 Route: INTRAVENOUS FLUOROURACIL 5 GRAM/100 ML INTRAVENO* 10/07/2017 10/07/2017 Route: INTRAVENOUS FLUOROURACIL IV INFUSION CASSETTE W* 10/07/2017 10/07/2017 Route: INTRAVENOUS Disc: Auto DC at discharge. SODIUM CHLORIDE 0.9 % INTRAVENOUS SO* 10/07/2017 10/07/2017 Cmt: Inform physician Route: INTRAVENOUS Disc: Auto DC at discharge. DIPHENHYDRAMINE 50 MG/ML INJECTION S* 10/07/2017 10/07/2017 Route: INTRAVENOUS Disc: Auto DC at discharge. HYDROCORTISONE SOD SUCCINATE (PF) 10* 10/07/2017 10/07/2017 Route: INTRAVENOUS Disc: Auto DC at discharge. EPINEPHRINE 1 MG/ML (1 ML) INJECTION* 10/07/2017 10/07/2017 Route: INTRAMUSCULA Disc: Auto DC at discharge. Medications Discontinued During This Encounter EPINEPHrine 1 mg/mL (1 mL) 0.3 mg in* 10/07/2017 10/07/2017 Route: INTRAMUSCULAR Sig: Disc: Auto DC at discharge. hydrocortisone sodium succinate (PF)* 10/07/2017 10/07/2017 Route: INTRAVENOUS Sig: Disc: Auto DC at discharge. diphenhydrAMINE 50 mg injection (DANIEL* 10/07/2017 10/07/2017 Route: INTRAVENOUS Sig: Disc: Auto DC at discharge. NaCl 0.9% iv infusion 10/07/2017 10/07/2017 Cmt: Inform physician Route: INTRAVENOUS Sig: Disc: Auto DC at discharge. fluorouracil 4,656 mg in NaCl 0.9% 8* 10/07/2017 10/07/2017 Route: INTRAVENOUS Sig: Disc: Auto DC at discharge. Encounter Status:Closed by TALON ALLAN on 10/07/17 [place] Observed: 10/06/2017 Status: COMPLETED Source: [place] 10:00 AM [facility] REPOSITORY Visit (SP) Office ([facility]) SAM HAGEN ([id number]) 1940 M Date Time Provider Department 10/06/17 10:00 AM TAMEKA MARSHALL ([place]) STEPHANIE During your visit today, we recorded the following information about you: Temperature Pulse Blood pressure Weight 97.8 degrees 74/minute 113/56 79.8 kg Shreya Villalta LPN, [place] 10/06/2017 9:48 AM Signed Est pt, discuss recent lab results, x tomorrow Shreya Villalta, [place], [place] 10/07/2017 12:46 PM Signed Chief Complaint No chief complaint on file. HPI: Sam Hagen is a 77 year old male who presents here today for evaluation for chemotherapy tomorrow. Per Dr. Greenberg's previous note: H/o CAD ([place] 1993; treated with PCI balloon angioplasty; no stent) and prostate cancer (tx with radiation x44 fx ~6-8 years ago). ? He presented to [facility] with symptoms of bowel obstruction. He underwent attempted colonoscopy but the procedure was aborted when the scope was not able to be passed through the rectum/sigmoid area. He was transferred to [facility]. He ultimately underwent a total colectomy along with end ileostomy and partial bladder resection on 07/03/2017. He was noted to have 2 foci of tumor one in the cecum and one in the sigmoid colon. The latter tumor was adherent to the bladder invasive to the bladder wall. ? 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 ?TUMOR PENETRATES TO THE SURFACE OF THE VISCERAL PERITONEUM. SURGICAL MARGINS NEGATIVE. 1 OF 13 LYMPH NODES POSITIVE FOR METASTATIC ADENOCARCINOMA AND 1 TUMOR DEPOSIT PRESENT. PERINEURAL AND LYMPHOVASCULAR INVASION PRESENT. B) SMALL INTESTINE, TERMINAL ILEUM, ILEOSTOMY - BENIGN SMALL INTESTINAL TISSUE. C) BLADDER, PARTIAL CYSTECTOMY - FOCAL INVOLVEMENT OF THICK SMOOTH MUSCLE BUNDLES BY ADENOCARCINOMA. ?NO UROTHELIUM PRESENT. D) COLON, SIGMOID, SEGMENTAL RESECTION - INVASIVE LOW GRADE (MODERATELY DIFFERENTIATED) ADENOCARCINOMA (3 CM IN GREATEST DIMENSION). ?SURGICAL MARGINS APPEAR NEGATIVE. BENIGN TRANSECTED BENIGN VAS DEFERENS (2) AND THICK SMOOTH MUSCLE SUGGESTIVE OF BLADDER. 1 OF 9 LYMPH NODES POSITIVE FOR METASTATIC ADENOCARCINOMA ? Current therapy: 1) Infusional 5FU. ? ANDquot;It's going ok.ANDquot; ANDquot;I feel like I have some swelling above my stoma.ANDquot; Appetite:ANDquot;it's greatANDquot; Energy level:ANDquot;noneANDquot; Denies fevers. 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 Past medical history, appointments, medications, allergies reviewed. No changes. EXAM: BP 113/56 Pulse 74 Temp 36.6 ?C (97.8 ?F) Wt 79.8 kg (176 lb) BMI 27.57 kg/m2 APPEARANCE Well appearing, alert, in no acute distress, well- hydrated, well nourished. MOUTH no mucositis HEART RRR with normal S1 and S2, no murmurs LUNG clear to auscultation LYMPH NODES No cervical lymphadenopathy, No supraclavicular lymphadenopathy and No axillary lymphadenopathy. ABDOMEN stoma healthy pink, bowel sounds normoactive, no bruits, soft, mild tenderness/swelling above appliance, no erythema, non-distended, without organomegaly or palpable masses EXTREMITIES No edema NEURO Awake, alert and oriented x 3, Normal gait and No involuntary motions. SKIN Skin color, texture, turgor normal, no suspicious rashes or lesions LABS: Component Latest Ref Rng ANDamp; Units 09/09/2017 09/22/2017 10/06/2017 WBC, [place] 3.70 - 11.00 k/uL 8.74 7.68 5.79 RBC, [place] 4.20 - 6.00 m/uL 3.69 (L) 4.08 (L) 4.09 (L) Hemoglobin, [place] 13.0 - 17.0 g/dL 9.8 (L) 10.9 (L) 10.9 (L) Hematocrit, [place] 39.0 - 51.0 % 32.2 (L) 35.6 (L) 36.1 (L) MCV, [place] 80.0 - 100.0 fL 87.3 87.3 88.3 MCH, [place] 26.0 - 34.0 pg 26.6 26.7 26.7 MCHC, [place] 30.5 - 36.0 g/dL 30.4 (L) 30.6 30.2 (L) RDW, [place] 11.5 - 15.0 % 16.7 (H) 18.0 (H) 19.2 (H) Platelet Cnt, [place] 150 - 400 k/uL 162 180 146 (L) MPV, [place] 9.0 - 12.7 fL 8.7 (L) 8.6 (L) 8.7 (L) Absol Gran Count 1.45 - 7.50 k/uL 5.02 3.80 3.17 Component Latest Ref Rng ANDamp; Units 09/09/2017 09/22/2017 10/06/2017 Sodium, Whole Blood (iSTAT) 135 - 146 mmol/L 139 140 142 Potassium, Whole Blood (iSTAT) 3.5 - 5.0 mmol/L 4.5 4.2 4.1 Chloride, Whole Blood (iSTAT) 98 - 110 mmol/L 102 103 105 Ionized Calcium, WB (iSTAT) 1.08 - 1.30 mmol/L 1.25 1.27 1.21 TCO2, Whole Blood (iSTAT) 23 - 32 mmol/L 27 25 25 Glucose, Whole Blood (iSTAT) 65 - 100 mg/dL 115 (H) 99 140 (H) BUN, Whole Blood (iSTAT) 10 - 25 mg/dL 17 16 16 Creatinine, Whole Blood (iSTAT) 0.70 - 1.40 mg/dL 0.90 0.90 0.90 Anion Gap, Whole Blood (iSTAT) 0 - 15 mmol/L 10 12 12 eGFR- ANDgt;60 ANDgt;60 ANDgt;60 eGFR-All Other Races . ANDgt;60 ANDgt;60 ANDgt;60 LFT's: Pending ASSESSMENT/PLAN: 1. Malignant neoplasm of sigmoid colon (HCC) - ICD9: 153.3, ICD10: C18.7 (primary diagnosis) 2. Malignant neoplasm of ascending colon (HCC) - ICD9: 153.6, ICD10: C18.2 mpT4a pN1 M0 adenocarcinoma with mucinous features of the ascending colon. There was lymphovascular as well as perineural invasion observed. One tumor deposit. One of 13 nodes. mpT4b pN1 M0 adenocarcinoma of the sigmoid colon. Focal involvement of bladder. Lymphovascular invasion was observed. No tumor deposits. One of 9 nodes involved. - Tolerating treatment well. - Reviewed labs with pt. - Multiple DVT L leg-Continue Eliquis. - Advised pt. to follow up with his surgeon-stoma appears healthy-no sign of infection. - Proceed as scheduled tomorrow. - Follow up as scheduled. - Pt. aware to call office with any questions/concerns. The patient indicates understanding of these issues and agrees with the plan. Tameka Marshall, [place]IFER Referring Provider: SAM GREENBERG [[id number]] Allergies As of Date: 10/06/2017 (No Known Allergies) Date Reviewed: 10/06/2017 Reviewed by: Shreya Salinas ([place]) [place] Vill[place] - Fully Assessed Primary Visit Diagnosis:Malignant neoplasm of sigmoid colon (HCC) [C18.7] Other Visit Diagnosis:Malignant neoplasm of ascending colon (HCC) [C18.2] Follow-up and Disposition History Recorded Prescriptions as of 10/06/2017 Sig: COMPOUNDED PRESCRIPTION Colostomy Care Supplies; 1 m* COMPOUNDED PRESCRIPTION Colostomy Care Supplies; 1 m* APIXABAN 5 MG TABLET Take 1 tablet by mouth twice * HYDROCODONE 10 MG-ACETAMINOPH* Take 1 tablet by mouth every * LOPERAMIDE 2 MG TABLET Take 2 mg by mouth as needed. ONDANSETRON HCL 8 MG TABLET Take 1 tablet by mouth every * ISOSORBIDE MONONITRATE ER 60 * Take 60 mg by mouth once renu* GABAPENTIN 300 MG CAPSULE Take 300 mg by mouth three ti* NITROGLYCERIN 0.4 MG SUBLINGU* Dissolve 0.4 mg under the ton* * ATENOLOL 50 MG TABLET Take one(1) tablet daily. * ZOCOR 40 MG TABLET Take one(1) tablet daily at b* Medication notes this encounter CEFADROXIL 500 MG CAPSULE >> Shreya Villalta LPN, LPN 10/06/2017 9:40 AM >> SHREYA VILLALTA Mon Oct 06, 2017 9:40 AM Course completed Problem List As Of Date 10/06/2017 Noted Resolved Bowel obstruction [K56.609] INVALID FOR*07/10/2017 Other specified abnormal immunological findings*INVALID FOR* More... Colon cancer (HCC) [C18.9] INVALID FOR* Priority: B More... 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 Arthritis of right hip [M16.11] INVALID FOR* Priority: M Colostomy care (HCC) [Z43.3] INVALID FOR* Priority: C Colostomy in place ([facility]) [Z93.3] INVALID FOR* Priority: C History of DVT (deep vein thrombosis) [Z86.718] INVALID FOR* Priority: A More... Bladder stone [N21.0] INVALID FOR* Priority: C More... Coronary artery disease involving [place] rivera*INVALID FOR* Priority: A More... H/O heart artery stent [Z95.5] INVALID FOR* Priority: B More... Nerve pain [M79.2] INVALID FOR* Priority: M More... Hyperlipidemia, mixed [E78.2] INVALID FOR* Priority: A Visit Notes: >> Shreya Villalat LPN Mon Oct 06, 2017 9:40 AM Status: Signed Est pt, discuss recent lab results, x tomorrow Shreya Villalta LPN Encounter Status:Closed by TAMEKA MARSHALL CNP on 10/07/17 PROGRESS Observed: 10/06/2017 Status: COMPLETED Source: [place] 9:44 AM [facility] REPOSITORY O ID: [id number] Author: Tameka Marshall Service: (none) Author Type: Nurse Practitioner Type: Progress Notes Filed: 10/07/2017 12:46 PM Note Text: Chief Complaint No chief complaint on file. HPI: Sam Hagen is a 77 year old male who presents here today for evaluation for chemotherapy tomorrow. Per Dr. Greenberg's previous note: H/o CAD ([place] 1993; treated with PCI balloon angioplasty; no stent) and prostate cancer (tx with radiation x44 fx ~6-8 years ago). ? He presented to [facility] with symptoms of bowel obstruction. He underwent attempted colonoscopy but the procedure was aborted when the scope was not able to be passed through the rectum/sigmoid area. He was transferred to [facility]. He ultimately underwent a total colectomy along with end ileostomy and partial bladder resection on 07/03/2017. He was noted to have 2 foci of tumor one in the cecum and one in the sigmoid colon. The latter tumor was adherent to the bladder invasive to the bladder wall. ? 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 ?TUMOR PENETRATES TO THE SURFACE OF THE VISCERAL PERITONEUM. SURGICAL MARGINS NEGATIVE. 1 OF 13 LYMPH NODES POSITIVE FOR METASTATIC ADENOCARCINOMA AND 1 TUMOR DEPOSIT PRESENT. PERINEURAL AND LYMPHOVASCULAR INVASION PRESENT. B) SMALL INTESTINE, TERMINAL ILEUM, ILEOSTOMY - BENIGN SMALL INTESTINAL TISSUE. C) BLADDER, PARTIAL CYSTECTOMY - FOCAL INVOLVEMENT OF THICK SMOOTH MUSCLE BUNDLES BY ADENOCARCINOMA. ?NO UROTHELIUM PRESENT. D) COLON, SIGMOID, SEGMENTAL RESECTION - INVASIVE LOW GRADE (MODERATELY DIFFERENTIATED) ADENOCARCINOMA (3 CM IN GREATEST DIMENSION). ?SURGICAL MARGINS APPEAR NEGATIVE. BENIGN TRANSECTED BENIGN VAS DEFERENS (2) AND THICK SMOOTH MUSCLE SUGGESTIVE OF BLADDER. 1 OF 9 LYMPH NODES POSITIVE FOR METASTATIC ADENOCARCINOMA ? Current therapy: 1) Infusional 5FU. ? It's going ok. I feel like I have some swelling above my stoma. Appetite:it's great Energy level:none Denies fevers. 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 Past medical history, appointments, medications, allergies reviewed. No changes. EXAM: BP 113/56 Pulse 74 Temp 36.6 ?C (97.8 ?F) Wt 79.8 kg (176 lb) BMI 27.57 kg/m2 APPEARANCE Well appearing, alert, in no acute distress, well-hydrated, well nourished. MOUTH no mucositis HEART RRR with normal S1 and S2, no murmurs LUNG clear to auscultation LYMPH NODES No cervical lymphadenopathy, No supraclavicular lymphadenopathy and No axillary lymphadenopathy. ABDOMEN stoma healthy pink, bowel sounds normoactive, no bruits, soft, mild tenderness/swelling above appliance, no erythema, non-distended, without organomegaly or palpable masses EXTREMITIES No edema NEURO Awake, alert and oriented x 3, Normal gait and No involuntary motions. SKIN Skin color, texture, turgor normal, no suspicious rashes or lesions LABS: Component Latest Ref Rng AND Units 09/09/2017 09/22/2017 10/06/2017 WBC, [place] 3.70 - 11.00 k/uL 8.74 7.68 5.79 RBC, [place] 4.20 - 6.00 m/uL 3.69 (L) 4.08 (L) 4.09 (L) Hemoglobin, [place] 13.0 - 17.0 g/dL 9.8 (L) 10.9 (L) 10.9 (L) Hematocrit, [place] 39.0 - 51.0 % 32.2 (L) 35.6 (L) 36.1 (L) MCV, [place] 80.0 - 100.0 fL 87.3 87.3 88.3 MCH, [place] 26.0 - 34.0 pg 26.6 26.7 26.7 MCHC, [place] 30.5 - 36.0 g/dL 30.4 (L) 30.6 30.2 (L) RDW, [place] 11.5 - 15.0 % 16.7 (H) 18.0 (H) 19.2 (H) Platelet Cnt, [place] 150 - 400 k/uL 162 180 146 (L) MPV, [place] 9.0 - 12.7 fL 8.7 (L) 8.6 (L) 8.7 (L) Absol Gran Count 1.45 - 7.50 k/uL 5.02 3.80 3.17 Component Latest Ref Rng AND Units 09/09/2017 09/22/2017 10/06/2017 Sodium, Whole Blood (iSTAT) 135 - 146 mmol/L 139 140 142 Potassium, Whole Blood (iSTAT) 3.5 - 5.0 mmol/L 4.5 4.2 4.1 Chloride, Whole Blood (iSTAT) 98 - 110 mmol/L 102 103 105 Ionized Calcium, WB (iSTAT) 1.08 - 1.30 mmol/L 1.25 1.27 1.21 TCO2, Whole Blood (iSTAT) 23 - 32 mmol/L 27 25 25 Glucose, Whole Blood (iSTAT) 65 - 100 mg/dL 115 (H) 99 140 (H) BUN, Whole Blood (iSTAT) 10 - 25 mg/dL 17 16 16 Creatinine, Whole Blood (iSTAT) 0.70 - 1.40 mg/dL 0.90 0.90 0.90 Anion Gap, Whole Blood (iSTAT) 0 - 15 mmol/L 10 12 12 eGFR- >60 >60 >60 eGFR-All Other Races . >60 >60 >60 LFT's: Pending ASSESSMENT/PLAN: 1. Malignant neoplasm of sigmoid colon (HCC) - ICD9: 153.3, ICD10: C18.7 (primary diagnosis) 2. Malignant neoplasm of ascending colon (HCC) - ICD9: 153.6, ICD10: C18.2 mpT4a pN1 M0 adenocarcinoma with mucinous features of the ascending colon. There was lymphovascular as well as perineural invasion observed. One tumor deposit. One of 13 nodes. mpT4b pN1 M0 adenocarcinoma of the sigmoid colon. Focal involvement of bladder. Lymphovascular invasion was observed. No tumor deposits. One of 9 nodes involved. - Tolerating treatment well. - Reviewed labs with pt. - Multiple DVT L leg-Continue Eliquis. - Advised pt. to follow up with his surgeon-stoma appears healthy-no sign of infection. - Proceed as scheduled tomorrow. - Follow up as scheduled. - Pt. aware to call office with any questions/concerns. The patient indicates understanding of these issues and agrees with the plan. Tameka Marshall, TOUCH UP WORKER [place] ABS GR + CBC Collected: 10/06/2017 Status: F Source: [place] 9:30 AM [facility] REPOSITORY TYPE CODE TESTS RESULT OUT OF REFERENCE UNITS RANGE LAB WWBC 3.70-11.00 k/uL [place] WBC 5.79 LAB WRBC 4.20-6.00 m/uL Low [place] RBC 4.09 LAB WHGB 13.0-17.0 g/dL Low [place] Hemoglobin 10.9 LAB WHCT 39.0-51.0 % Low [place] Hematocrit 36.1 LAB WMCV 80.0-100.0 fL [place] MCV 88.3 LAB WMCH 26.0-34.0 pg [place] MCH 26.7 LAB WMCHC 30.5-36.0 g/dL Low [place] MCHC 30.2 LAB WRDW 11.5-15.0 % [place] High RDW 19.2 LAB WPLT 150-400 k/uL Low [place] Platelet Cnt 146 LAB WMPV 9.0-12.7 fL Low [place] MPV 8.7 Result Comment: Test performed at: [facility] [place], [address] [place] [address]. LAB ABGRAN 1.45-7.50 k/uL Absol Gran 3.17 Count [place] ISTAT BMP Collected: 10/06/2017 Status: F Source: [place] 9:30 AM [facility] [place] REPOSITORY TYPE CODE TESTS RESULT OUT OF REFERENCE UNITS RANGE LAB NAWB 135-146 mmol/L Sodium, Whole 142 Bld LAB K1WB 3.5-5.0 mmol/L Potassium,Who 4.1 le Bld LAB CLWB 98-110 mmol/L Chloride, 105 Whole Bld LAB ICAWB 1.08-1.30 mmol/L Ionized 1.21 Calcium, WB Result Comment: Please note: This value represents ionized calcium not total calcium. LAB CO2WB 23-32 mmol/L TCO2, Whole 25 Blood LAB GLUWB 65-100 mg/dL High Glucose, 140 Whole Bld LAB BUNWB 10-25 mg/dL BUN, Whole 16 Blood LAB BCRET 0.70-1.40 mg/dL Creatinine,Wh 0.90 ole Bld LAB AGAPWB 0-15 mmol/L Anion Gap, 12 Whole Bld LAB GFRAA eGFR- >60 Amer. LAB GFRNAA . eGFR-All >60 Other Races Result Comment: eGFR (Estimated GFR) Units of measure: mL/min/1.73 meters squared eGFR is derived from the reexpressed MDRD Study equation using the following parameters: serum creatinine, age, gender and race. The creatinine assay has been calibrated to be traceable to IDMS. An eGFR <60 mL/min/1.73m2 for >3 months is consistent with chronic kidney disease. Refer to KDOQI guidelines for clinical interpretation. In patients with unstable renal function, e.g. those with acute kidney injury, the eGFR may not accurately reflect actual GFR. HOSP Observed: 10/06/2017 Status: COMPLETED Source: [place] 9:30 AM [facility] REPOSITORY Infusion Center ([facility]) SAM HAGEN ([id number]) 1940 M Date Time Provider Department 10/06/17 9:30 AM [facility] During your visit today, we recorded the following information about you: Referring Provider: SAM GREENBERG [[id number]] Allergies As of Date: 10/06/2017 (No Known Allergies) Date Reviewed: 10/06/2017 Reviewed by: Shreya Salinas (Laundry Operator Finishing) AFRICA Villalta - Fully Assessed Reason for Visit: Blood Draw (CVAD) [1758] Primary Visit Diagnosis:Malignant neoplasm of sigmoid colon (HCC) [C18.7] Prescriptions as of 10/06/2017 Sig: COMPOUNDED PRESCRIPTION Colostomy Care Supplies; 1 m* COMPOUNDED PRESCRIPTION Colostomy Care Supplies; 1 m* X CEFADROXIL 500 MG CAPSULE Take 1 capsule by mouth twice* APIXABAN 5 MG TABLET Take 1 tablet by mouth twice * HYDROCODONE 10 MG-ACETAMINOPH* Take 1 tablet by mouth every * LOPERAMIDE 2 MG TABLET Take 2 mg by mouth as needed. ONDANSETRON HCL 8 MG TABLET Take 1 tablet by mouth every * ISOSORBIDE MONONITRATE ER 60 * Take 60 mg by mouth once renu* GABAPENTIN 300 MG CAPSULE Take 300 mg by mouth three ti* NITROGLYCERIN 0.4 MG SUBLINGU* Dissolve 0.4 mg under the ton* * ATENOLOL 50 MG TABLET Take one(1) tablet daily. * ZOCOR 40 MG TABLET Take one(1) tablet daily at b* Problem List As Of Date 10/06/2017 Noted Resolved Bowel obstruction [K56.609] INVALID FOR*07/10/2017 Other specified abnormal immunological findings*INVALID FOR* More... Colon cancer (HCC) [C18.9] INVALID FOR* Priority: B More... 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 Arthritis of right hip [M16.11] INVALID FOR* Priority: M Colostomy care (HCC) [Z43.3] INVALID FOR* Priority: C Colostomy in place (HCC) [Z93.3] INVALID FOR* Priority: C History of DVT (deep vein thrombosis) [Z86.718] INVALID FOR* Priority: A More... Bladder stone [N21.0] INVALID FOR* Priority: C More... Coronary artery disease involving [place] rivera*INVALID FOR* Priority: A More... H/O heart artery stent [Z95.5] INVALID FOR* Priority: B More... Nerve pain [M79.2] INVALID FOR* Priority: M More... Hyperlipidemia, mixed [E78.2] INVALID FOR* Priority: A Encounter Status:Closed by RIC WARREN on 10/06/17 HEPATIC FUNCTN PANEL Collected: 10/06/2017 Status: F Source: [place] 9:30 AM [facility] [place] REPOSITORY TYPE CODE TESTS RESULT OUT OF REFERENCE UNITS RANGE LAB ALB 3.9-4.9 g/dL Albumin 4.1 LAB TBIL 0.2-1.3 mg/dL Bilirubin, Total 0.3 LAB CBIL <0.2 mg/dL Bilirubin,Conjuga <0.2 dilma LAB ALKP 36-108 U/L Alkaline Phosphatase 81 LAB AST 14-40 U/L AST 16 LAB ALT 10-54 U/L ALT 13 LAB TP 6.3-8.0 g/dL Protein, Total 6.7 Performed By: #### HFP #### [facility] [employer] [address] [place], [place] [address] PROGRESS Observed: 09/25/2017 Status: COMPLETED Source: [place] 3:24 PM [facility] REPOSITORY HNO ID: [id number] Author: Vishal Jones Service: (none) Author Type: Physician Type: Progress Notes Filed: 09/25/2017 10:22 PM Note Text: Chief Complaint Patient presents with: Establish Care HPI Sam Hagen is a 77 year old male who presents here today for establishment of care. patient with hx as reviewed and documented below. Was diagnosed with a left leg DVT and is on Eliquis for the next 4-6 months. Uses a cream for skin cancer (not sure of name at this time) Past medical history, appointments, medications, allergies reviewed. Previous Medical History PAST MEDICAL HISTORY Diagnosis Date - Arthritis of right hip 09/25/2017 - Arthritis, lumbar spine (HCC) 09/25/2017 - Bladder stone 09/25/[address] Bagley - Colon cancer ([facility]) 06/30/[address] Greenberg, Had extension into the bladder wall and hd a partial cystectomy. - Colostomy care ([facility]) 09/25/2017 - Colostomy in place ([facility]) 09/25/2017 - Coronary artery disease involving ugash[place] coronary artery 09/25/[address] 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 and other lower urinary tract symptoms (LUTS) Previous Surgical History PAST SURGICAL HISTORY Procedure Laterality Date - CARPAL TUNNEL Bilateral - CATARACT EXTRACTION HX Right - ECHOCARDIOGRAM 07/05/2017 - LAP REPAIR INTIAL INGUINAL HERNIA 01/11/09 - PAST SURGICAL HISTORY OF 07/03/2017 COLECTOMY ABDOMINAL W/O PROCTECTOMY W/ ILEOSTOMY/ILEOPROCTOSTOMY, TOTAL - REPAIR COMPL ROTATOR CUFF AVULSN,CHR left - REPAIR SLIDING INGUINAL HERNIA LIH - REPAIR UMBILICAL ANNA,5+Y/O,REDUC 01/11/09 - SIGMOIDOSCOPY 06/29/2017 Family History FAMILY HISTORY Problem Relation Age of Onset - Prostate Cancer Father - Cancer Father skin - Heart Mother - Stroke Mother - Diabetes Mother Patient Allergies ALLERGIES No Known Allergies Current Medications Current Outpatient Prescriptions on File Prior to Visit: apixaban (ELIQUIS) 5 mg tab tab(s) Take 1 tablet by mouth twice daily. HYDROcodone-Acetaminophen (NORCO) 10-325 mg per tablet Take 1 tablet by mouth every 6 hours as needed. Loperamide HCl (IMODIUM A-D) 2 mg tab Take 2 mg by mouth as needed. ondansetron (ZOFRAN) 8 mg tablet Take 1 tablet by mouth every 8 hours as needed for Nausea/Vomiting. Indications: CANCER CHEMOTHERAPY-INDUCED NAUSEA AND VOMITING isosorbide mononitrate ER (IMDUR) 60 mg 24 hr tablet Take 60 mg by mouth once daily. gabapentin (NEURONTIN) 300 mg capsule Take 300 mg by mouth three times daily. nitroglycerin sublingual (NITROSTAT) 0.4 mg SL tablet Dissolve 0.4 mg under the tongue every 5 minutes as needed. ATENOLOL 50 MG TAB Take one(1) tablet daily. simvastatin(ZOCOR 40 MG TAB) Take one(1) tablet daily at bedtime. No current facility-administered medications on file prior to visit. Social History Social History Marital status: Spouse name: Years of education: Number of children: Social History Main Topics Smoking status: Never Smoker Smokeless status: Current User Types: Chew Alcohol use: Yes Comment: rare Drug use: No Review of Symptoms REVIEW OF SYSTEMS NECK: Negative for lumps, goiter, pain and significant neck swelling RESPIRATORY: Negative for cough, hemoptysis, wheezing, COPD, dyspnea or shortness of breath CARDIOVASCULAR: Negative for chest pain, hypertension, CHF or palpitations. Swelling of left leg has decreased a lot. GI: No nausea, vomiting, or blood in stool. Has developed a red swelling around the stoma. No itching but uncomfortable at times. No skin breakdown or puss. MUSCULOSKELETAL: has chronic low back and right hip pain. NEURO: No history of headaches, syncope, paralysis, seizures or tremors EXAM: BP 110/70 Pulse 80 Resp 16 Ht 170.2 cm (5' 7) Wt 79.4 kg (175 lb) BMI 27.41 kg/m2 General Appearance: Well appearing, alert, in no acute distress, well-hydrated, well nourished., Overweight. Skin: Skin color, texture, turgor normal, no suspicious rashes or lesions, not able to see under the stoma patch but there feels to be a ring of induration with some mild tenderness on the left lateral side.. Neck: Supple, no adenopathy; thyroid symmetric, normal size, no bruits. Lungs: Lungs clear to auscultation. No wheezing, rhonchi, rales. Heart: RRR without murmur, gallop, or rubs. No ectopy. Abdomen: Normal abdominal exam, Abdomen soft, non-tender. Bowel sounds normal. No masses, organomegaly. Extremities: No deformities, edema, Peripheral Pulses: Normal. Health Maintenance List TETANUS due on 1950 LIPID SCREEN due on 1974 COLORECTAL CANCER SCREENING,SEE MODIFIER due on 1989 ADULT PREVNAR-13 due on 02/08/2004 PNEUMOVAX AGE 65 AND OVER WITH 5YR LOOKBACK(1) due on 02/08/2004 INFLUENZA(1) due on 05/16/2017 DIABETES SCREEN due on 08/21/2020 PROSTATE CANCER SCREENING DISCUSSION Completed Data reviewed Component Latest Ref Rng AND Units 07/19/2017 09/22/2017 WBC 4.23 - 9.07 thou/cmm 9.17 (H) RBC 4.63 - 6.08 mil/cmm 2.89 (L) HGB 13.7 - 17.5 g/dL 8.1 (L) Hematocrit 40.1 - 51.0 % 26.4 (L) MCV 83.2 - 95.6 fl 91.3 MCH 25.7 - 32.2 pg 28.0 MCHC 32.3 - 36.5 % 30.7 (L) RDW 11.6 - 14.4 % 14.3 RDW-SD 36.1 - 45.8 fl 47.8 (H) Platelet Count 141 - 365 thou/cmm 467 (H) MPV 8.7 - 12.0 fl 9.2 Seg Neutrophil % 64.6 Immature Grans % 0.90 Lymphocyte % 18.9 Monocyte % 7.0 Eosinophil % 8.2 Basophil % 0.4 Seg. Neut. # 1.78 - 5.38 thou/cmm 5.92 (H) Immature Grans # 0.00 - 0.05 thou/cmm 0.08 (H) Lymphocyte # 0.84 - 2.85 thou/cmm 1.73 Monocyte # 0.30 - 0.82 thou/cmm 0.64 Eosinophil # 0.04 - 0.54 thou/cmm 0.75 (H) Basophil # 0.01 - 0.08 thou/cmm 0.04 Sodium, Whole Blood (iSTAT) 135 - 146 mmol/L 140 Potassium, Whole Blood (iSTAT) 3.5 - 5.0 mmol/L 4.2 Chloride, Whole Blood (iSTAT) 98 - 110 mmol/L 103 Ionized Calcium, WB (iSTAT) 1.08 - 1.30 mmol/L 1.27 TCO2, Whole Blood (iSTAT) 23 - 32 mmol/L 25 Glucose, Whole Blood (iSTAT) 65 - 100 mg/dL 99 BUN, Whole Blood (iSTAT) 10 - 25 mg/dL 16 Creatinine, Whole Blood (iSTAT) 0.70 - 1.40 mg/dL 0.90 Anion Gap, Whole Blood (iSTAT) 0 - 15 mmol/L 12 eGFR- >60 eGFR-All Other Races . >60 Albumin 3.9 - 4.9 g/dL 3.9 Bilirubin, Total 0.2 - 1.3 mg/dL 0.3 Bilirubin, Conjug <0.2 mg/dL <0.2 Alkaline Phosphatase 36 - 108 U/L 103 AST 14 - 40 U/L 17 ALT 10 - 54 U/L 12 Protein, Total 6.3 - 8.0 g/dL 7.4 Component Latest Ref Rng AND Units 01/30/2017 Cholesterol 200 139 Triglyceride 150 59 HDL CHOLESTEROL 40 46 LDL Cholesterol 70 81 (A) A/P ASSESSMENT/PLAN: 1. Hyperlipidemia, mixed - ICD9: 272.2, ICD10: E78.2 (primary diagnosis) - good control - Continue current medication. - Continue current dose of simvastatin (Zocor) 40 mg. 2. Arthritis, lumbar spine (HCC) - ICD9: 721.3, ICD10: M46.96 - Cont [place] 1 four times a day, Substance agreement signed. 3. Arthritis of right hip - ICD9: 716.95, ICD10: M16.11 - As above 4. Malignant neoplasm of colon, unspecified part of colon (HCC) - ICD9: 153.9, ICD10: C18.9 - Cont f/u with Oncology 5. Colostomy care ([facility]) - ICD9: V55.3, ICD10: Z43.3 - Script given for supplies 6. Colostomy in place ([facility]) - ICD9: V44.3, ICD10: Z93.3 - as above 7. History of DVT (deep vein thrombosis) - ICD9: V12.51, ICD10: Z86.718 - cont the eliquis till 03/15/2018 8. Bladder stone - ICD9: 594.1, ICD10: N21.0 - Seeing urology 9. 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 - Cont cardio f/u 10. H/O heart artery stent - ICD9: V45.82, ICD10: Z95.5 - as above 11. Nerve pain - ICD9: 729.2, ICD10: M79.2 - Cont the gabapentin. 12. Cellulitis of skin - ICD9: 682.9, ICD10: L03.90 - Begin treatment with - CEFADROXIL 500 MG CAPSULE Signed Prescriptions Disp Refills COMPOUNDED PRESCRIPTION 1 Device 11 Sig: Colostomy Care Supplies; 1 months worth with 11 refills (fax # [phone])3M Cavilon No-sting Barrier Film Wipes # [id number] Qty 1 box of 50Stomahesive Paste 2 oz tube # [id number] Qty 1 tube [place]: No COMPOUNDED PRESCRIPTION 1 Device 11 Sig: Colostomy Care Supplies; 1 months worth with 11 refills (fax # [phone])Adapt Oval Convex Ring 7/8 x 1 1/2 # [id number] Qty 1 box 10 eachPremier 1-Piece Soft Convvex Drainable pouch Cut to fit 1-/2 Qty 2 box 5 each [place]: No cefADROxil (DURICEF) 500 mg capsule 20 capsule 0 Sig: Take 1 capsule by mouth twice daily. F/u 4 months routine Time with patient face to face was 60 min Vishal Jones MD CNOV Observed: 09/25/2017 Status: COMPLETED Source: [place] 3:00 PM [facility] REPOSITORY Office Visit ([facility]) SAM HAGEN ([id number]) 1940 M Date Time Provider Department 09/25/17 3:00 PM VISHAL JONES [facility]AMPWS During your visit today, we recorded the following information about you: Pulse Respiration Blood pressure Weight 80/minute 16/minute 110/70 79.4 kg Height 1.702 m Vishal Jones MD 09/25/2017 10:22 PM Signed Chief Complaint Patient presents with: Establish Care HPI Sam Curry Hagen is a 77 year old male who presents here today for establishment of care. patient with hx as reviewed and documented below. Was diagnosed with a left leg DVT and is on Eliquis for the next 4-6 months. Uses a cream for skin cancer (not sure of name at this time) Past medical history, appointments, medications, allergies reviewed. 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 Bagley - Colon cancer ([facility]) 06/30/[address] Greenberg, Had extension into the bladder wall and hd a partial cystectomy. - Colostomy care ([facility]) 09/25/2017 - Colostomy in place ([facility]) 09/25/2017 - Coronary artery disease involving [place] coronary artery 09/25/[address] 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 and other lower urinary tract symptoms (LUTS) Previous Surgical History PAST SURGICAL HISTORY Procedure Laterality Date - CARPAL TUNNEL Bilateral - CATARACT EXTRACTION HX Right - ECHOCARDIOGRAM 07/05/2017 - LAP REPAIR INTIAL INGUINAL HERNIA 01/11/09 - PAST SURGICAL HISTORY OF 07/03/2017 COLECTOMY ABDOMINAL W/O PROCTECTOMY W/ ILEOSTOMY/ILEOPROCTOSTOMY, TOTAL - REPAIR COMPL ROTATOR CUFF AVULSN,CHR left - REPAIR SLIDING INGUINAL HERNIA LIH - REPAIR UMBILICAL ANNA,5+Y/O,REDUC 01/11/09 - SIGMOIDOSCOPY 06/29/2017 Family History FAMILY HISTORY Problem Relation Age of Onset - Prostate Cancer Father - Cancer Father skin - Heart Mother - Stroke Mother - Diabetes Mother Patient Allergies ALLERGIES No Known Allergies Current Medications Current Outpatient Prescriptions on File Prior to Visit: apixaban (ELIQUIS) 5 mg tab tab(s) Take 1 tablet by mouth twice daily. HYDROcodone-Acetaminophen (NORCO) 10-325 mg per tablet Take 1 tablet by mouth every 6 hours as needed. Loperamide HCl (IMODIUM A-D) 2 mg tab Take 2 mg by mouth as needed. ondansetron (ZOFRAN) 8 mg tablet Take 1 tablet by mouth every 8 hours as needed for Nausea/Vomiting. Indications: CANCER CHEMOTHERAPY-INDUCED NAUSEA AND VOMITING isosorbide mononitrate ER (IMDUR) 60 mg 24 hr tablet Take 60 mg by mouth once daily. gabapentin (NEURONTIN) 300 mg capsule Take 300 mg by mouth three times daily. nitroglycerin sublingual (NITROSTAT) 0.4 mg SL tablet Dissolve 0.4 mg under the tongue every 5 minutes as needed. ATENOLOL 50 MG TAB Take one(1) tablet daily. simvastatin(ZOCOR 40 MG TAB) Take one(1) tablet daily at bedtime. No current facility-administered medications on file prior to visit. Social History Social History Marital status: Spouse name: Years of education: Number of children: Social History Main Topics Smoking status: Never Smoker Smokeless status: Current User Types: Chew Alcohol use: Yes Comment: rare Drug use: No Review of Symptoms REVIEW OF SYSTEMS NECK: Negative for lumps, goiter, pain and significant neck swelling RESPIRATORY: Negative for cough, hemoptysis, wheezing, COPD, dyspnea or shortness of breath CARDIOVASCULAR: Negative for chest pain, hypertension, CHF or palpitations. Swelling of left leg has decreased a lot. GI: No nausea, vomiting, or blood in stool. Has developed a red swelling around the stoma. No itching but uncomfortable at times. No skin breakdown or puss. MUSCULOSKELETAL: has chronic low back and right hip pain. NEURO: No history of headaches, syncope, paralysis, seizures or tremors EXAM: BP 110/70 Pulse 80 Resp 16 Ht 170.2 cm (5' 7ANDquot;) Wt 79.4 kg (175 lb) BMI 27.41 kg/m2 General Appearance: Well appearing, alert, in no acute distress, well-hydrated, well nourished., Overweight. Skin: Skin color, texture, turgor normal, no suspicious rashes or lesions, not able to see under the stoma patch but there feels to be a ring of induration with some mild tenderness on the left lateral side.. Neck: Supple, no adenopathy; thyroid symmetric, normal size, no bruits. Lungs: Lungs clear to auscultation. No wheezing, rhonchi, rales. Heart: RRR without murmur, gallop, or rubs. No ectopy. Abdomen: Normal abdominal exam, Abdomen soft, non-tender. Bowel sounds normal. No masses, organomegaly. Extremities: No deformities, edema, Peripheral Pulses: Normal. Health Maintenance List TETANUS due on 1950 LIPID SCREEN due on 1974 COLORECTAL CANCER SCREENING,SEE MODIFIER due on 1989 ADULT PREVNAR-13 due on 02/08/2004 PNEUMOVAX AGE 65 AND OVER WITH 5YR LOOKBACK(1) due on 02/08/2004 INFLUENZA(1) due on 05/16/2017 DIABETES SCREEN due on 08/21/2020 PROSTATE CANCER SCREENING DISCUSSION Completed Data reviewed Component Latest Ref Rng ANDamp; Units 07/19/2017 09/22/2017 WBC 4.23 - 9.07 thou/cmm 9.17 (H) RBC 4.63 - 6.08 mil/cmm 2.89 (L) HGB 13.7 - 17.5 g/dL 8.1 (L) Hematocrit 40.1 - 51.0 % 26.4 (L) MCV 83.2 - 95.6 fl 91.3 MCH 25.7 - 32.2 pg 28.0 MCHC 32.3 - 36.5 % 30.7 (L) RDW 11.6 - 14.4 % 14.3 RDW-SD 36.1 - 45.8 fl 47.8 (H) Platelet Count 141 - 365 thou/cmm 467 (H) MPV 8.7 - 12.0 fl 9.2 Seg Neutrophil % 64.6 Immature Grans % 0.90 Lymphocyte % 18.9 Monocyte % 7.0 Eosinophil % 8.2 Basophil % 0.4 Seg. Neut. # 1.78 - 5.38 thou/cmm 5.92 (H) Immature Grans # 0.00 - 0.05 thou/cmm 0.08 (H) Lymphocyte # 0.84 - 2.85 thou/cmm 1.73 Monocyte # 0.30 - 0.82 thou/cmm 0.64 Eosinophil # 0.04 - 0.54 thou/cmm 0.75 (H) Basophil # 0.01 - 0.08 thou/cmm 0.04 Sodium, Whole Blood (iSTAT) 135 - 146 mmol/L 140 Potassium, Whole Blood (iSTAT) 3.5 - 5.0 mmol/L 4.2 Chloride, Whole Blood (iSTAT) 98 - 110 mmol/L 103 Ionized Calcium, WB (iSTAT) 1.08 - 1.30 mmol/L 1.27 TCO2, Whole Blood (iSTAT) 23 - 32 mmol/L 25 Glucose, Whole Blood (iSTAT) 65 - 100 mg/dL 99 BUN, Whole Blood (iSTAT) 10 - 25 mg/dL 16 Creatinine, Whole Blood (iSTAT) 0.70 - 1.40 mg/dL 0.90 Anion Gap, Whole Blood (iSTAT) 0 - 15 mmol/L 12 eGFR- ANDgt;60 eGFR-All Other Races . ANDgt;60 Albumin 3.9 - 4.9 g/dL 3.9 Bilirubin, Total 0.2 - 1.3 mg/dL 0.3 Bilirubin, Conjug ANDlt;0.2 mg/dL ANDlt;0.2 Alkaline Phosphatase 36 - 108 U/L 103 AST 14 - 40 U/L 17 ALT 10 - 54 U/L 12 Protein, Total 6.3 - 8.0 g/dL 7.4 Component Latest Ref Rng ANDamp; Units 01/30/2017 Cholesterol 200 139 Triglyceride 150 59 HDL CHOLESTEROL 40 46 LDL Cholesterol 70 81 (A) A/P ASSESSMENT/PLAN: 1. Hyperlipidemia, mixed - ICD9: 272.2, ICD10: E78.2 (primary diagnosis) - good control - Continue current medication. - Continue current dose of simvastatin (Zocor) 40 mg. 2. Arthritis, lumbar spine (HCC) - ICD9: 721.3, ICD10: M46.96 - Cont [place] 1 four times a day, Substance agreement signed. 3. Arthritis of right hip - ICD9: 716.95, ICD10: M16.11 - As above 4. Malignant neoplasm of colon, unspecified part of colon (HCC) - ICD9: 153.9, ICD10: C18.9 - Cont f/u with Oncology 5. Colostomy care (HCC) - ICD9: V55.3, ICD10: Z43.3 - Script given for supplies 6. Colostomy in place (HCC) - ICD9: V44.3, ICD10: Z93.3 - as above 7. History of DVT (deep vein thrombosis) - ICD9: V12.51, ICD10: Z86.718 - cont the eliquis till 03/15/2018 8. Bladder stone - ICD9: 594.1, ICD10: N21.0 - Seeing urology 9. 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 - Cont cardio f/u 10. H/O heart artery stent - ICD9: V45.82, ICD10: Z95.5 - as above 11. Nerve pain - ICD9: 729.2, ICD10: M79.2 - Cont the gabapentin. 12. Cellulitis of skin - ICD9: 682.9, ICD10: L03.90 - Begin treatment with - CEFADROXIL 500 MG CAPSULE Signed Prescriptions Disp Refills COMPOUNDED PRESCRIPTION 1 Device 11 Sig: Colostomy Care Supplies; 1 months worth with 11 refills (fax # [phone])3M Cavilon No-sting Barrier Film Wipes # [id number] Qty 1 box of 50Stomahesive Paste 2 oz tube # [id number] Qty 1 tube [place]: No COMPOUNDED PRESCRIPTION 1 Device 11 Sig: Colostomy Care Supplies; 1 months worth with 11 refills (fax # [phone])Adapt Oval Convex Ring 7/8ANDquot; x 1 1/2ANDquot; # [id number] Qty 1 box 10 eachPremier 1-Piece Soft Convvex Drainable pouch Cut to fit 1-09/16 Qty 2 box 5 each [place]: No cefADROxil (DURICEF) 500 mg capsule 20 capsule 0 Sig: Take 1 capsule by mouth twice daily. 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] Arthritis of right hip [M16.11] Malignant neoplasm of colon, unspecified part of colon (HCC) [C18.9] Colostomy care (HCC) [Z43.3] Colostomy in place ([facility]) [Z93.3] History of DVT (deep vein thrombosis) [Z86.718] Bladder stone [N21.0] 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] H/O heart artery stent [Z95.5] Nerve pain [M79.2] Cellulitis of skin [L03.90] Order(s):LIPID PANEL (OUTSIDE) [1372187] Order #: [id number] COMPOUNDED PRESCRIPTIONColostomy Care Supplies; 1 months worth with 11 refills (fax # [phone]) 3M Cavilon No-sting Barrier Film Wipes # [id number] Qty 1 box of 50 Stomahesive Paste 2 oz tube # [id number] Qty 1 tubeDisp: 1 DeviceRfl: 11 COMPOUNDED PRESCRIPTIONColostomy Care Supplies; 1 months worth with 11 refills (fax # [phone]) Adapt Oval Convex Ring 7/8 x 1 1/2 # [id number] Qty 1 box 10 each Premier 1-Piece Soft Convvex Drainable pouch Cut to fit -09/16 Qty 2 box 5 eachDisp: 1 DeviceRfl: 11 cefADROxil (DURICEF) 500 mg capsuleTake 1 capsule by mouth twice daily.Disp: 20 capsuleRfl: 0 Prescriptions as of 09/25/2017 Sig: APIXABAN 5 MG TABLET Take 1 tablet by mouth twice * HYDROCODONE 10 MG-ACETAMINOPH* Take 1 tablet by mouth every * LOPERAMIDE 2 MG TABLET Take 2 mg by mouth as needed. ONDANSETRON HCL 8 MG TABLET Take 1 tablet by mouth every * ISOSORBIDE MONONITRATE ER 60 * Take 60 mg by mouth once renu* GABAPENTIN 300 MG CAPSULE Take 300 mg by mouth three ti* NITROGLYCERIN 0.4 MG SUBLINGU* Dissolve 0.4 mg under the ton* * ATENOLOL 50 MG TABLET Take one(1) tablet daily. * ZOCOR 40 MG TABLET Take one(1) tablet daily at b* COMPOUNDED PRESCRIPTION Colostomy Care Supplies; 1 m* COMPOUNDED PRESCRIPTION Colostomy Care Supplies; 1 m* CEFADROXIL 500 MG CAPSULE Take 1 capsule by mouth twice* Problem List As Of Date 09/25/2017 Noted Resolved Bowel obstruction [K56.609] INVALID FOR*07/10/2017 Other specified abnormal immunological findings*INVALID FOR* More... Colon cancer (HCC) [C18.9] INVALID FOR* Priority: B More... 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 Arthritis of right hip [M16.11] INVALID FOR* Priority: M Colostomy care ([facility]) [Z43.3] INVALID FOR* Priority: C Colostomy in place ([facility]) [Z93.3] INVALID FOR* Priority: C History of DVT (deep vein thrombosis) [Z86.718] INVALID FOR* Priority: A More... Bladder stone [N21.0] INVALID FOR* Priority: C More... Coronary artery disease involving [place]*INVALID FOR* Priority: A More... H/O heart artery stent [Z95.5] INVALID FOR* Priority: B More... Nerve pain [M79.2] INVALID FOR* Priority: M More... Hyperlipidemia, mixed [E78.2] INVALID FOR* Priority: A Prescriptions ordered this encounter Disp Refills Start End COMPOUNDED PRESCRIPTION 1 De* 09/25/2017 09/25/2017 Class: Print RX Sig: Colostomy Care Supplies; 1 months worth with 11 refills (fax # [phone]) 3M Cavilon No-sting Barrier Film Wipes # [id number] Qty 1 box of 50 Stomahesive Paste 2 oz tube # [id number] Qty 1 tube COMPOUNDED PRESCRIPTION 1 De* 09/25/2017 09/25/2017 Class: Print RX Sig: Colostomy Care Supplies; 1 months worth with 11 refills (fax # [phone]) Adapt Oval Convex Ring 7/8 x 1 1/2 # [id number] Qty 1 box 10 each Premier 1-Piece Soft Convvex Drainable pouch Cut to fit 1-/2 Qty 2 box 5 each COMPOUNDED PRESCRIPTION 1 De* 09/25/2017 Class: Print RX Sig: Colostomy Care Supplies; 1 months worth with 11 refills (fax # [phone]) 3M Cavilon No-sting Barrier Film Wipes # [id number] Qty 1 box of 50 Stomahesive Paste 2 oz tube # [id number] Qty 1 tube Cosign accepted by VISHAL JONES[[id number]] on 09/25/2017 4:29 PM COMPOUNDED PRESCRIPTION 1 De* 11 09/25/2017 Class: Print RX Sig: Colostomy Care Supplies; 1 months worth with 11 refills (fax # [phone]) Adapt Oval Convex Ring 7/8 x 1 1/2 # [id number] Qty 1 box 10 each Premier 1-Piece Soft Convvex Drainable pouch Cut to fit 1-/2 Qty 2 box 5 each Cosign accepted by VISHAL JONES[[id number]] on 09/25/2017 4:30 PM CEFADROXIL 500 MG CAPSULE 20 c* 0 09/25/2017 Route: ORAL Sig: Take 1 capsule by mouth twice daily. Medications Discontinued During This Encounter tolterodine ER (DETROL LA) 2 mg 24 h* 30 c* 0 07/10/2017 09/25/2017 Class: Print RX Cmt: S/P partial cystectomy per Urology instructions Route: ORAL Sig: Take 1 capsule by mouth once daily. Disc: Course of therapy completed COMPOUNDED PRESCRIPTION 1 De* 11 09/25/2017 09/25/2017 Class: Print RX Sig: Colostomy Care Supplies; 1 months worth with 11 refills (fax # [phone]) 3M Cavilon No-sting Barrier Film Wipes # [id number] Qty 1 box of 50 Stomahesive Paste 2 oz tube # [id number] Qty 1 tube Disc: Reason for discontinue is not on file. COMPOUNDED PRESCRIPTION 1 De* 11 09/25/2017 09/25/2017 Class: Print RX Sig: Colostomy Care Supplies; 1 months worth with 11 refills (fax # [phone]) Adapt Oval Convex Ring 7/8 x 1 1/2 # [id number] Qty 1 box 10 each Premier 1-Piece Soft Convvex Drainable pouch Cut to fit 1-/2 Qty 2 box 5 each Disc: Reason for discontinue is not on file. Disposition: Return in about 4 months (around 01/23/2018) for routine. Follow-up and Disposition History Recorded Encounter Status:Closed by VISHAL JONES on 09/25/17 HOSP Observed: 09/24/2017 Status: COMPLETED Source: [facility] 4:00 PM [facility] REPOSITORY Infusion Center ([facility]) SAM HAGEN ([id number]) 1940 M Date Time Provider Department 09/24/17 4:00 PM [facility] [facility] During your visit today, we recorded the following information about you: Referring Provider: SAM GREENBERG [[id number]] Allergies As of Date: 09/24/2017 (No Known Allergies) Date Reviewed: 09/24/2017 Reviewed by: Talon Curry (Rn) DIXIE Allan - Fully Assessed Reason for Visit: CADD Pump D/C [6200] Primary Visit Diagnosis:Malignant neoplasm of sigmoid colon (HCC) [C18.7] Other Visit Diagnoses:Malignant neoplasm of ascending colon (HCC) [C18.2] Malignant neoplasm of ascending colon (HCC) [C18.2] Order(s):PUMP DISCONTINUE [[id number]] Order #: [id number]: 1 Prescriptions as of 09/24/2017 Sig: APIXABAN 5 MG TABLET Take 1 tablet by mouth twice * HYDROCODONE 10 MG-ACETAMINOPH* Take 1 tablet by mouth every * LOPERAMIDE 2 MG TABLET Take 2 mg by mouth as needed. ONDANSETRON HCL 8 MG TABLET Take 1 tablet by mouth every * TOLTERODINE ER 2 MG CAPSULE,E* Take 1 capsule by mouth once * ISOSORBIDE MONONITRATE ER 60 * Take 60 mg by mouth once renu* GABAPENTIN 300 MG CAPSULE Take 300 mg by mouth three ti* NITROGLYCERIN 0.4 MG SUBLINGU* Dissolve 0.4 mg under the ton* * ATENOLOL 50 MG TABLET Take one(1) tablet daily. * ZOCOR 40 MG TABLET Take one(1) tablet daily at b* Problem List As Of Date 09/24/2017 Noted Resolved Bowel obstruction [K56.609] INVALID FOR*07/10/2017 Other specified abnormal immunological findings*INVALID FOR* More... Colon cancer (HCC) [C18.9] INVALID FOR* More... 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] INVALID FOR* Pneumonia [J18.9] INVALID FOR*07/19/2017 Malignant neoplasm of sigmoid colon (HCC) [C18.*INVALID FOR* Malignant neoplasm of ascending colon (HCC) [C1*INVALID FOR* Encounter Status:Closed by TALON ALLAN on 09/24/17 HOSP Observed: 09/22/2017 Status: COMPLETED Source: [place] 8:30 AM [facility] Infusion Center ([facility]) SAM HAGEN ([id number]) 1940 M Date Time Provider Department 09/22/17 8:30 AM TREATMENT [facility] [place] [facility] During your visit today, we recorded the following information about you: Temperature Pulse Blood pressure Weight 98.9 degrees 67/minute 124/61 78.5 kg Grazyna Krueger RN, RN 09/22/2017 10:[address] Greenberg gave OK to keep the same doses even though there was a 10% increase in BSA. Referring Provider: SAM GREENBERG [[id number]] Allergies As of Date: 09/22/2017 (No Known Allergies) Date Reviewed: 09/11/2017 Reviewed by: Grazyna (Rn) Ana, RN - Fully Assessed Reason for Visit: Chemotherapy Treatment [771] Primary Visit Diagnosis:Encounter for antineoplastic chemotherapy [Z51.11] Other Visit Diagnoses:Malignant neoplasm of sigmoid colon (HCC) [C18.7] Malignant neoplasm of ascending colon (HCC) [C18.2] Order(s):[] ondansetron (PF) 8 mg injection (ZOFRAN)Disp: Rfl: [] leucovorin 740 mg in NaCl 0.9% 250 mLDisp: Rfl: [] fluorouracil 740 mg injection (ADRUCIL)Disp: Rfl: TREATMENT PARAMETERS [[id number]] Order #: [id number]: 1 Prescriptions as of 09/22/2017 Sig: APIXABAN 5 MG TABLET Take 1 tablet by mouth twice * HYDROCODONE 10 MG-ACETAMINOPH* Take 1 tablet by mouth every * LOPERAMIDE 2 MG TABLET Take 2 mg by mouth as needed. ONDANSETRON HCL 8 MG TABLET Take 1 tablet by mouth every * TOLTERODINE ER 2 MG CAPSULE,E* Take 1 capsule by mouth once * ISOSORBIDE MONONITRATE ER 60 * Take 60 mg by mouth once renu* GABAPENTIN 300 MG CAPSULE Take 300 mg by mouth three ti* NITROGLYCERIN 0.4 MG SUBLINGU* Dissolve 0.4 mg under the ton* * ATENOLOL 50 MG TABLET Take one(1) tablet daily. * ZOCOR 40 MG TABLET Take one(1) tablet daily at b* Problem List As Of Date 09/22/2017 Noted Resolved Bowel obstruction [K56.609] INVALID FOR*07/10/2017 Other specified abnormal immunological findings*INVALID FOR* More... Colon cancer (HCC) [C18.9] INVALID FOR* More... 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 Greenberg gave OK to keep the same doses even though there was a 10% increase in BSA. Prescriptions ordered this encounter Disp Refills Start End ONDANSETRON HCL (PF) 4 MG/2 ML INJEC* 09/22/2017 09/22/2017 Route: INTRAVENOUS LEUCOVORIN IV PGBK 09/22/2017 09/22/2017 Route: INTRAVENOUS FLUOROURACIL 5 GRAM/100 ML INTRAVENO* 09/22/2017 09/22/2017 Route: INTRAVENOUS FLUOROURACIL IV INFUSION CASSETTE W* 09/22/2017 09/22/2017 Route: INTRAVENOUS Disc: Auto DC at discharge. SODIUM CHLORIDE 0.9 % INTRAVENOUS SO* 09/22/2017 09/22/2017 Cmt: Inform physician Route: INTRAVENOUS Disc: Auto DC at discharge. DIPHENHYDRAMINE 50 MG/ML INJECTION S* 09/22/2017 09/22/2017 Route: INTRAVENOUS Disc: Auto DC at discharge. HYDROCORTISONE SOD SUCCINATE (PF) 10* 09/22/2017 09/22/2017 Route: INTRAVENOUS Disc: Auto DC at discharge. EPINEPHRINE 1 MG/ML (1 ML) INJECTION* 09/22/2017 09/22/2017 Route: INTRAMUSCULA Disc: Auto DC at discharge. Medications Discontinued During This Encounter EPINEPHrine 1 mg/mL (1 mL) 0.3 mg in* 09/22/2017 09/22/2017 Route: INTRAMUSCULAR Sig: Disc: Auto DC at discharge. hydrocortisone sodium succinate (PF)* 09/22/2017 09/22/2017 Route: INTRAVENOUS Sig: Disc: Auto DC at discharge. diphenhydrAMINE 50 mg injection (DANIEL* 09/22/2017 09/22/2017 Route: INTRAVENOUS Sig: Disc: Auto DC at discharge. NaCl 0.9% iv infusion 09/22/2017 09/22/2017 Cmt: Inform physician Route: INTRAVENOUS Sig: Disc: Auto DC at discharge. fluorouracil 4,440 mg in NaCl 0.9% 1* 09/22/2017 09/22/2017 Route: INTRAVENOUS Sig: Disc: Auto DC at discharge. Encounter Status:Closed by GRAZYNA KRUEGER on 09/22/17 [place] ABS GR + CBC Collected: 09/22/2017 Status: F Source: [facility] 8:15 AM [facility] REPOSITORY TYPE CODE TESTS RESULT OUT OF REFERENCE UNITS RANGE LAB WWBC 3.70-11.00 k/uL [place] WBC 7.68 LAB WRBC 4.20-6.00 m/uL Low [place] RBC 4.08 LAB WHGB 13.0-17.0 g/dL Low [place] Hemoglobin 10.9 LAB WHCT 39.0-51.0 % Low [place] Hematocrit 35.6 LAB WMCV 80.0-100.0 fL [place] MCV 87.3 LAB WMCH 26.0-34.0 pg [place] MCH 26.7 LAB WMCHC 30.5-36.0 g/dL [place] MCHC 30.6 LAB WRDW 11.5-15.0 % [place] High RDW 18.0 LAB WPLT 150-400 k/uL [place] Platelet Cnt 180 LAB WMPV 9.0-12.7 fL Low [place] MPV 8.6 Result Comment: Test performed at: [facility] [place], [address] [place] [address]. LAB ABGRAN 1.45-7.50 k/uL Absol Gran 3.80 Count [place] ISTAT BMP Collected: 09/22/2017 Status: F Source: [place] 8:15 AM [facility] REPOSITORY TYPE CODE TESTS RESULT OUT OF REFERENCE UNITS RANGE LAB NAWB 135-146 mmol/L Sodium, Whole 140 Bld LAB K1WB 3.5-5.0 mmol/L Potassium,Who 4.2 le Bld LAB CLWB 98-110 mmol/L Chloride, 103 Whole Bld LAB ICAWB 1.08-1.30 mmol/L Ionized 1.27 Calcium, WB Result Comment: Please note: This value represents ionized calcium not total calcium. LAB CO2WB 23-32 mmol/L TCO2, Whole Blood 25 LAB GLUWB 65-100 mg/dL Glucose, Whole Bld 99 LAB BUNWB 10-25 mg/dL BUN, Whole Blood 16 LAB BCRET 0.70-1.40 mg/dL Creatinine,Wh ole Bld 0.90 LAB AGAPWB 0-15 mmol/L Anion Gap, Whole Bld 12 LAB GFRAA eGFR- Amer. >60 LAB GFRNAA . eGFR-All Other Races >60 Result Comment: eGFR (Estimated GFR) Units of measure: mL/min/1.73 meters squared eGFR is derived from the reexpressed MDRD Study equation using the following parameters: serum creatinine, age, gender and race. The creatinine assay has been calibrated to be traceable to IDMS. An eGFR <60 mL/min/1.73m2 for >3 months is consistent with chronic kidney disease. Refer to KDOQI guidelines for clinical interpretation. In patients with unstable renal function, e.g. those with acute kidney injury, the eGFR may not accurately reflect actual GFR. HOSP Observed: 09/22/2017 Status: COMPLETED Source: [place] 8:15 AM [facility] REPOSITORY Infusion Center ([facility]) SAM HAGEN ([id number]) 1940 M Date Time Provider Department 09/22/17 8:15 AM [facility] During your visit today, we recorded the following information about you: Referring Provider: SAM GREENBERG [[id number]] Allergies As of Date: 09/22/2017 (No Known Allergies) Date Reviewed: 09/11/2017 Reviewed by: Grazyna (Rn) DIXIE Krueger - Fully Assessed Reason for Visit: Blood Draw (CVAD) [1758] Primary Visit Diagnosis:Malignant neoplasm of colon, unspecified part of colon (HCC) [C18.9] Prescriptions as of 09/22/2017 Sig: APIXABAN 5 MG TABLET Take 1 tablet by mouth twice * HYDROCODONE 10 MG-ACETAMINOPH* Take 1 tablet by mouth every * LOPERAMIDE 2 MG TABLET Take 2 mg by mouth as needed. ONDANSETRON HCL 8 MG TABLET Take 1 tablet by mouth every * TOLTERODINE ER 2 MG CAPSULE,E* Take 1 capsule by mouth once * ISOSORBIDE MONONITRATE ER 60 * Take 60 mg by mouth once renu* GABAPENTIN 300 MG CAPSULE Take 300 mg by mouth three ti* NITROGLYCERIN 0.4 MG SUBLINGU* Dissolve 0.4 mg under the ton* * ATENOLOL 50 MG TABLET Take one(1) tablet daily. * ZOCOR 40 MG TABLET Take one(1) tablet daily at b* Problem List As Of Date 09/22/2017 Noted Resolved Bowel obstruction [K56.609] INVALID FOR*07/10/2017 Other specified abnormal immunological findings*INVALID FOR* More... Colon cancer (HCC) [C18.9] INVALID FOR* More... 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] INVALID FOR* Pneumonia [J18.9] INVALID FOR*07/19/2017 Malignant neoplasm of sigmoid colon (HCC) [C18.*INVALID FOR* Malignant neoplasm of ascending colon (HCC) [C1*INVALID FOR* Encounter Status:Closed by MICHELL DUONG on 09/22/17 HEPATIC FUNCTN PANEL Collected: 09/22/2017 Status: F Source: [facility] 8:15 AM [facility] REPOSITORY TYPE CODE TESTS RESULT OUT OF REFERENCE UNITS RANGE LAB ALB 3.9-4.9 g/dL Albumin 3.9 LAB TBIL 0.2-1.3 mg/dL Bilirubin, Total 0.3 LAB CBIL <0.2 mg/dL Bilirubin,Conjuga <0.2 dilma LAB ALKP 36-108 U/L Alkaline Phosphatase 103 LAB AST 14-40 U/L AST 17 LAB ALT 10-54 U/L ALT 12 LAB TP 6.3-8.0 g/dL Protein, Total 7.4 Performed By: #### HFP #### [facility] [address] [address] HOSP Observed: 09/11/2017 Status: COMPLETED Source: [place] 2:00 PM [facility] REPOSITORY Infusion Center ([facility]) SAM HAGEN ([id number]) 1940 M Date Time Provider Department 09/11/17 2:00 PM [facility] [facility] During your visit today, we recorded the following information about you: Referring Provider: SAM GREENBERG [[id number]] Allergies As of Date: 09/11/2017 (No Known Allergies) Date Reviewed: 09/11/2017 Reviewed by: Grazyna Armenta) DIXIE Krueger - Fully Assessed Reason for Visit: CADD Pump D/C [1760] Primary Visit Diagnosis:Malignant neoplasm of sigmoid colon (HCC) [C18.7] Other Visit Diagnosis:Malignant neoplasm of ascending colon (HCC) [C18.2] Order(s):PUMP DISCONTINUE [[id number]] Order #: [id number]: 1 Prescriptions as of 09/11/2017 Sig: HYDROCODONE 10 MG-ACETAMINOPH* Take 1 tablet by mouth every * LOPERAMIDE 2 MG TABLET Take 2 mg by mouth as needed. ONDANSETRON HCL 8 MG TABLET Take 1 tablet by mouth every * TOLTERODINE ER 2 MG CAPSULE,E* Take 1 capsule by mouth once * ISOSORBIDE MONONITRATE ER 60 * Take 60 mg by mouth once renu* GABAPENTIN 300 MG CAPSULE Take 300 mg by mouth three ti* NITROGLYCERIN 0.4 MG SUBLINGU* Dissolve 0.4 mg under the ton* X ASPIRIN LOW DOSE ORAL Take 81 mg/day by mouth once * * ATENOLOL 50 MG TABLET Take one(1) tablet daily. * ZOCOR 40 MG TABLET Take one(1) tablet daily at b* Problem List As Of Date 09/11/2017 Noted Resolved Bowel obstruction [K56.609] INVALID FOR*07/10/2017 Other specified abnormal immunological findings*INVALID FOR* More... Colon cancer (HCC) [C18.9] INVALID FOR* More... 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] INVALID FOR* Pneumonia [J18.9] INVALID FOR*07/19/2017 Malignant neoplasm of sigmoid colon (HCC) [C18.*INVALID FOR* Malignant neoplasm of ascending colon (HCC) [C1*INVALID FOR* Encounter Status:Closed by GRAZYNA KRUEGER on 09/11/17 HOSP Observed: 09/09/2017 Status: COMPLETED Source: [facility] 2:00 PM [facility] ([facility]) SAM HAGEN ([id number]) 1940 M Date Time Provider Department 09/09/17 2:00 PM TREATMENT RM 5 [facility] During your visit today, we recorded the following information about you: Referring Provider: SAM GREENBERG [[id number]] Allergies As of Date: 09/09/2017 (No Known Allergies) Date Reviewed: 09/09/2017 Reviewed by: Enedina Hernández RN, RN - Fully Assessed Reason for Visit: Chemotherapy Treatment [771] Primary Visit Diagnosis:Malignant neoplasm of sigmoid colon (HCC) [C18.7] Other Visit Diagnosis:Malignant neoplasm of ascending colon (HCC) [C18.2] Order(s):[] ondansetron (PF) 8 mg injection (ZOFRAN)Disp: Rfl: [] leucovorin 740 mg in NaCl 0.9% 250 mLDisp: Rfl: [] fluorouracil 740 mg injection (ADRUCIL)Disp: Rfl: TREATMENT PARAMETERS [[id number]] Order #: [id number]: 1 Prescriptions as of 09/09/2017 Sig: HYDROCODONE 10 MG-ACETAMINOPH* Take 1 tablet by mouth every * LOPERAMIDE 2 MG TABLET Take 2 mg by mouth as needed. ONDANSETRON HCL 8 MG TABLET Take 1 tablet by mouth every * TOLTERODINE ER 2 MG CAPSULE,E* Take 1 capsule by mouth once * ISOSORBIDE MONONITRATE ER 60 * Take 60 mg by mouth once renu* GABAPENTIN 300 MG CAPSULE Take 300 mg by mouth three ti* NITROGLYCERIN 0.4 MG SUBLINGU* Dissolve 0.4 mg under the ton* ASPIRIN LOW DOSE ORAL Take 81 mg/day by mouth once * * ATENOLOL 50 MG TABLET Take one(1) tablet daily. * ZOCOR 40 MG TABLET Take one(1) tablet daily at b* Problem List As Of Date 09/09/2017 Noted Resolved Bowel obstruction [K56.609] INVALID FOR*07/10/2017 Other specified abnormal immunological findings*INVALID FOR* More... Colon cancer (HCC) [C18.9] INVALID FOR* More... 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 SODIUM CHLORIDE 0.9 % INTRAVENOUS SO* 09/09/2017 09/09/2017 Cmt: Inform physician Route: INTRAVENOUS Disc: Auto DC at discharge. DIPHENHYDRAMINE 50 MG/ML INJECTION S* 09/09/2017 09/09/2017 Route: INTRAVENOUS Disc: Auto DC at discharge. HYDROCORTISONE SOD SUCCINATE (PF) 10* 09/09/2017 09/09/2017 Route: INTRAVENOUS Disc: Auto DC at discharge. EPINEPHRINE 1 MG/ML (1 ML) INJECTION* 09/09/2017 09/09/2017 Route: INTRAMUSCULA Disc: Auto DC at discharge. Medications Discontinued During This Encounter EPINEPHrine 1 mg/mL (1 mL) 0.3 mg in* 09/09/2017 09/09/2017 Route: INTRAMUSCULAR Sig: Disc: Auto DC at discharge. hydrocortisone sodium succinate (PF)* 09/09/2017 09/09/2017 Route: INTRAVENOUS Sig: Disc: Auto DC at discharge. diphenhydrAMINE 50 mg injection (DANIEL* 09/09/2017 09/09/2017 Route: INTRAVENOUS Sig: Disc: Auto DC at discharge. NaCl 0.9% iv infusion 09/09/2017 09/09/2017 Cmt: Inform physician Route: INTRAVENOUS Sig: Disc: Auto DC at discharge. fluorouracil 4,440 mg in NaCl 0.9% 1* 09/09/2017 09/09/2017 Route: INTRAVENOUS Sig: Disc: Auto DC at discharge. Encounter Status:Closed by ENEDINA HERNÁNDEZ on 09/09/17 HUGO ABS GR + CBC Collected: 09/09/2017 Status: F Source: [facility] 11:55 AM [facility] REPOSITORY TYPE CODE TESTS RESULT OUT OF REFERENCE UNITS RANGE LAB WWBC 3.70-11.00 k/uL [place] WBC 8.74 LAB WRBC 4.20-6.00 m/uL Low [place] RBC 3.69 LAB WHGB 13.0-17.0 g/dL Low [place] Hemoglobin 9.8 LAB WHCT 39.0-51.0 % Low [place] Hematocrit 32.2 LAB WMCV 80.0-100.0 fL [place] MCV 87.3 LAB WMCH 26.0-34.0 pg [place] MCH 26.6 LAB WMCHC 30.5-36.0 g/dL Low [place] MCHC 30.4 LAB WRDW 11.5-15.0 % [place] High RDW 16.7 LAB WPLT 150-400 k/uL [place] Platelet Cnt 162 LAB WMPV 9.0-12.7 fL Low [place] MPV 8.7 Result Comment: Test performed at: [facility], [address] [place] [address] Rd[address] [place] [address]. LAB ABGRAN 1.45-7.50 k/uL Absol Gran 5.02 Count [place] ISTAT BMP Collected: 09/09/2017 Status: F Source: [facility] 11:55 AM [facility] REPOSITORY TYPE CODE TESTS RESULT OUT OF REFERENCE UNITS RANGE LAB NAWB 135-146 mmol/L Sodium, Whole 139 Bld LAB K1WB 3.5-5.0 mmol/L Potassium,Who 4.5 le Bld LAB CLWB 98-110 mmol/L Chloride, 102 Whole Bld LAB ICAWB 1.08-1.30 mmol/L Ionized 1.25 Calcium, WB Result Comment: Please note: This value represents ionized calcium not total calcium. LAB CO2WB 23-32 mmol/L TCO2, Whole 27 Blood LAB GLUWB 65-100 mg/dL High Glucose, 115 Whole Bld LAB BUNWB 10-25 mg/dL BUN, Whole 17 Blood LAB BCRET 0.70-1.40 mg/dL Creatinine,Wh 0.90 ole Bld LAB AGAPWB 0-15 mmol/L Anion Gap, 10 Whole Bld LAB GFRAA eGFR- >60 Amer. LAB GFRNAA . eGFR-All >60 Other Races Result Comment: eGFR (Estimated GFR) Units of measure: mL/min/1.73 meters squared eGFR is derived from the reexpressed MDRD Study equation using the following parameters: serum creatinine, age, gender and race. The creatinine assay has been calibrated to be traceable to IDMS. An eGFR <60 mL/min/1.73m2 for >3 months is consistent with chronic kidney disease. Refer to KDOQI guidelines for clinical interpretation. In patients with unstable renal function, e.g. those with acute kidney injury, the eGFR may not accurately reflect actual GFR. HEPATIC FUNCTN PANEL Collected: 09/09/2017 Status: F Source: [facility] 11:55 AM [facility] REPOSITORY TYPE CODE TESTS RESULT OUT OF REFERENCE UNITS RANGE LAB ALB 3.9-4.9 g/dL Albumin 4.0 LAB TBIL 0.2-1.3 mg/dL Bilirubin, Total 0.3 LAB CBIL <0.2 mg/dL Bilirubin,Conjuga <0.2 dilma LAB ALKP 36-108 U/L Alkaline Phosphatase 98 LAB AST 14-40 U/L Low AST 13 LAB ALT 10-54 U/L Low ALT 9 LAB TP 6.3-8.0 g/dL Protein, Total 6.7 Performed By: #### HFP #### [facility] [address] [place] [id number] CNOVSP Observed: 09/09/2017 Status: COMPLETED Source: [facility] 11:50 AM [facility] REPOSITORY Visit (SP) Office ([facility]) SAM HAGEN ([id number]) 1940 M Date Time Provider Department 09/09/17 11:50 AM SAM GREENBERG During your visit today, we recorded the following information about you: Temperature Pulse Blood pressure Weight 98.5 degrees 69/minute 114/59 80.7 kg Sam Greenberg DO 09/09/2017 12:28 PM Signed Diagnosis: 1) HPI: The patient is 77 yo male with PMH significant for CAD ([place] 1993; treated with PCI balloon angioplasty; no stent) and prostate cancer (tx with radiation x44 fx ~6-8 years ago). He presented to [facility] with symptoms of bowel obstruction. He underwent attempted colonoscopy but the procedure was aborted when the scope was not able to be passed through the rectum/sigmoid area. He was transferred to [facility]. He ultimately underwent a total colectomy along with end ileostomy and partial bladder resection on 07/03/2017. He was noted to have 2 foci of tumor one in the cecum and one in the sigmoid colon. The latter tumor was adherent to the bladder invasive to the bladder wall. 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 ?TUMOR PENETRATES TO THE SURFACE OF THE VISCERAL PERITONEUM. SURGICAL MARGINS NEGATIVE. 1 OF 13 LYMPH NODES POSITIVE FOR METASTATIC ADENOCARCINOMA AND 1 TUMOR DEPOSIT PRESENT. PERINEURAL AND LYMPHOVASCULAR INVASION PRESENT. B) SMALL INTESTINE, TERMINAL ILEUM, ILEOSTOMY - BENIGN SMALL INTESTINAL TISSUE. C) BLADDER, PARTIAL CYSTECTOMY - FOCAL INVOLVEMENT OF THICK SMOOTH MUSCLE BUNDLES BY ADENOCARCINOMA. ?NO UROTHELIUM PRESENT. D) COLON, SIGMOID, SEGMENTAL RESECTION - INVASIVE LOW GRADE (MODERATELY DIFFERENTIATED) ADENOCARCINOMA (3 CM IN GREATEST DIMENSION). ?SURGICAL MARGINS APPEAR NEGATIVE. BENIGN TRANSECTED BENIGN VAS DEFERENS (2) AND THICK SMOOTH MUSCLE SUGGESTIVE OF BLADDER. 1 OF 9 LYMPH NODES POSITIVE FOR METASTATIC ADENOCARCINOMA Current therapy: 1) Infusional 5FU. Interim history: He is tolerating chemotherapy very well. He had one episode of nausea and vomiting after which had occurred him to try the antinausea medicine which he hadn't up to that point. Once he took Zofran tablet, the nausea and vomiting completely resolved. His bowels are working normally. He denies diarrhea and constipation. No bloody stools. He is having trouble voiding his bladder and he underwent cystoscopy last week and was found to have a large bladder stone. He is scheduled for further cystoscopy with planned removal of the stone in a couple weeks. He's been getting up every couple hours to go at night. No gross hematuria or dysuria. His appetite is doing well. No episodes of jaundice. PMH, medications and allergies personally reviewed by me today. Any changes documented in appropriate section. ROS: Constitutional: Denies episodes of fever and night sweats. Not significantly fatigued. Neuro: Denies SHERIFF, vertigo, dizziness and imbalance. He has symptoms of bilateral carpal tunnel syndrome. No neuropathy of the lower extremities. HEENT: No recent change in voice, vision or hearing. Resp: Denies cough, wheeze and hemoptysis. Denies shortness of breath at rest. CVS: Denies exertional chest pain, PND, orthopnea and LE edema. GI: Denies dysgeusia. Denies symptoms of stomatitis. Denies dysphagia and odynophagia. : See above. Endo: Denies hot flashes. Denies polyuria and polydipsia. Denies heat and cold intolerance. Derm: Denies rash. Denies jaundice and diffuse pruritis. Heme: Denies unusual bleeding and unexplained bruising. Psych: Normal mood. PHYSICAL EXAM: Vitals: Blood pressure 114/59, pulse 69, temperature 36.9 ?C (98.5 ?F), temperature source Oral, weight 80.7 kg (178 lb). Well-appearing and in no acute distress. EYES: Sclerae are anicteric bilaterally. ENT: Oral mucosa is unremarkable. NECK: Supple. LYMPHATIC: There is no palpable cervical, supraclavicular, axillary adenopathy. RESPIRATORY: Inspiratory breath sounds are of diminished intensity in all norris. CARDIOVASCULAR: Rhythm is regular. Normal intensity S1/S2. There is no gallop or murmur. ABDOMEN: The abdomen is nondistended. Midline incision well- healed. Ostomy appears healthy. Extremities: No swelling or edema. SKIN: No jaundice or rash. No petechiae. 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 No focal motor weakness. ASSESSMENT/PLAN: (C18.2) Malignant neoplasm of ascending colon (HCC) (primary encounter diagnosis) (C18.7) Malignant neoplasm of sigmoid colon (HCC) Assessment: -mpT4a pN1 M0 adenocarcinoma with mucinous features of the ascending colon. There was lymphovascular as well as perineural invasion observed. One tumor deposit. One of 13 nodes. -mpT4b pN1 M0 adenocarcinoma of the sigmoid colon. Focal involvement of bladder. Lymphovascular invasion was observed. No tumor deposits. One of 9 nodes involved. -He is tolerating adjuvant chemotherapy, infusional 5-fluorouracil well. -Discussed plan to complete 12 cycles. -Will consider radiation oncology opinion after completing chemotherapy. Plan: -Continue therapy. (M79.89) Leg swelling Assessment: -Low suspicion for DVT, but since it is unilateral and he is on chemotherapy and is 2 months out from major abdominal surgery, will obtain ultrasound to rule out DVT. Plan: -US today or . (M54.9, G89.29) Other chronic back pain Assessment: -Chronic low back pain for which he takes Vicodin 10/325 one tablet every 6 hours. He's been on this long-term as previously prescribed by his primary care physician. -Explained today to the patient that providers in this office will not prescribe narcotic pain medication for chronic pain unrelated to cancer diagnosis. Plan: -He will be referred for establishment with primary care physician here with the understanding that her primary care physician may not necessarily continue narcotic prescriptions for chronic pain. So, I encouraged him to contact his previous care physician for refills. Sam Greenberg DO Referring Provider: SAM GREENBERG [[id number]] Allergies As of Date: 09/09/2017 (No Known Allergies) Date Reviewed: 09/09/2017 Reviewed by: Enedina Hernández RN, RN - Fully Assessed Reason for Visit: Established Patient [175] Cmt: Pt c/o swelling in left ankle x 1-2 weeks* Reason For Visit History Recorded Primary Visit Diagnosis:Malignant neoplasm of ascending colon (HCC) [C18.2] Other Visit Diagnoses:Malignant neoplasm of sigmoid colon (HCC) [C18.7] Leg swelling [M79.89] Other chronic back pain [M54.9, G89.29] Order(s):US LEG VEIN DVT UNL VAS LAB [[id number]] Order #: [id number] FUTURE Follow-up and Disposition History Recorded Prescriptions as of 09/09/2017 Sig: HYDROCODONE 10 MG-ACETAMINOPH* Take 1 tablet by mouth every * LOPERAMIDE 2 MG TABLET Take 2 mg by mouth as needed. ONDANSETRON HCL 8 MG TABLET Take 1 tablet by mouth every * ISOSORBIDE MONONITRATE ER 60 * Take 60 mg by mouth once renu* GABAPENTIN 300 MG CAPSULE Take 300 mg by mouth three ti* NITROGLYCERIN 0.4 MG SUBLINGU* Dissolve 0.4 mg under the ton* ASPIRIN LOW DOSE ORAL Take 81 mg/day by mouth once * * ATENOLOL 50 MG TABLET Take one(1) tablet daily. * ZOCOR 40 MG TABLET Take one(1) tablet daily at b* TOLTERODINE ER 2 MG CAPSULE,E* Take 1 capsule by mouth once * Problem List As Of Date 09/09/2017 Noted Resolved Bowel obstruction [K56.609] INVALID FOR*07/10/2017 Other specified abnormal immunological findings*INVALID FOR* More... Colon cancer (HCC) [C18.9] INVALID FOR* More... 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] INVALID FOR* Pneumonia [J18.9] INVALID FOR*07/19/2017 Malignant neoplasm of sigmoid colon (HCC) [C18.*INVALID FOR* Malignant neoplasm of ascending colon (HCC) [C1*INVALID FOR* Encounter Status:Closed by SAM GREENBERG DO on 09/09/17 PROGRESS Observed: 09/09/2017 Status: COMPLETED Source: [facility] 11:36 AM [facility] REPOSITORY [facility] ID: [id number] Author: Sam Greenberg Service: (none) Author Type: Physician Type: Progress Notes Filed: 09/09/2017 12:28 PM Note Text: Diagnosis: 1) HPI: The patient is 77 yo male with PMH significant for CAD ([place] 1993; treated with PCI balloon angioplasty; no stent) and prostate cancer (tx with radiation x44 fx ~6-8 years ago). He presented to [facility] with symptoms of bowel obstruction. He underwent attempted colonoscopy but the procedure was aborted when the scope was not able to be passed through the rectum/sigmoid area. He was transferred to [facility]. He ultimately underwent a total colectomy along with end ileostomy and partial bladder resection on 07/03/2017. He was noted to have 2 foci of tumor one in the cecum and one in the sigmoid colon. The latter tumor was adherent to the bladder invasive to the bladder wall. 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 ?TUMOR PENETRATES TO THE SURFACE OF THE VISCERAL PERITONEUM. SURGICAL MARGINS NEGATIVE. 1 OF 13 LYMPH NODES POSITIVE FOR METASTATIC ADENOCARCINOMA AND 1 TUMOR DEPOSIT PRESENT. PERINEURAL AND LYMPHOVASCULAR INVASION PRESENT. B) SMALL INTESTINE, TERMINAL ILEUM, ILEOSTOMY - BENIGN SMALL INTESTINAL TISSUE. C) BLADDER, PARTIAL CYSTECTOMY - FOCAL INVOLVEMENT OF THICK SMOOTH MUSCLE BUNDLES BY ADENOCARCINOMA. ?NO UROTHELIUM PRESENT. D) COLON, SIGMOID, SEGMENTAL RESECTION - INVASIVE LOW GRADE (MODERATELY DIFFERENTIATED) ADENOCARCINOMA (3 CM IN GREATEST DIMENSION). ?SURGICAL MARGINS APPEAR NEGATIVE. BENIGN TRANSECTED BENIGN VAS DEFERENS (2) AND THICK SMOOTH MUSCLE SUGGESTIVE OF BLADDER. 1 OF 9 LYMPH NODES POSITIVE FOR METASTATIC ADENOCARCINOMA Current therapy: 1) Infusional 5FU. Interim history: He is tolerating chemotherapy very well. He had one episode of nausea and vomiting after which had occurred him to try the antinausea medicine which he hadn't up to that point. Once he took Zofran tablet, the nausea and vomiting completely resolved. His bowels are working normally. He denies diarrhea and constipation. No bloody stools. He is having trouble voiding his bladder and he underwent cystoscopy last week and was found to have a large bladder stone. He is scheduled for further cystoscopy with planned removal of the stone in a couple weeks. He's been getting up every couple hours to go at night. No gross hematuria or dysuria. His appetite is doing well. No episodes of jaundice. PMH, medications and allergies personally reviewed by me today. Any changes documented in appropriate section. ROS: Constitutional: Denies episodes of fever and night sweats. Not significantly fatigued. Neuro: Denies SHERIFF, vertigo, dizziness and imbalance. He has symptoms of bilateral carpal tunnel syndrome. No neuropathy of the lower extremities. HEENT: No recent change in voice, vision or hearing. Resp: Denies cough, wheeze and hemoptysis. Denies shortness of breath at rest. CVS: Denies exertional chest pain, PND, orthopnea and LE edema. GI: Denies dysgeusia. Denies symptoms of stomatitis. Denies dysphagia and odynophagia. : See above. Endo: Denies hot flashes. Denies polyuria and polydipsia. Denies heat and cold intolerance. Derm: Denies rash. Denies jaundice and diffuse pruritis. Heme: Denies unusual bleeding and unexplained bruising. Psych: Normal mood. PHYSICAL EXAM: Vitals: Blood pressure 114/59, pulse 69, temperature 36.9 ?C (98.5 ?F), temperature source Oral, weight 80.7 kg (178 lb). Well-appearing and in no acute distress. EYES: Sclerae are anicteric bilaterally. ENT: Oral mucosa is unremarkable. NECK: Supple. LYMPHATIC: There is no palpable cervical, supraclavicular, axillary adenopathy. RESPIRATORY: Inspiratory breath sounds are of diminished intensity in all norris. CARDIOVASCULAR: Rhythm is regular. Normal intensity S1/S2. There is no gallop or murmur. ABDOMEN: The abdomen is nondistended. Midline incision well- healed. Ostomy appears healthy. Extremities: No swelling or edema. SKIN: No jaundice or rash. No petechiae. 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 No focal motor weakness. ASSESSMENT/PLAN: (C18.2) Malignant neoplasm of ascending colon (HCC) (primary encounter diagnosis) (C18.7) Malignant neoplasm of sigmoid colon (HCC) Assessment: -mpT4a pN1 M0 adenocarcinoma with mucinous features of the ascending colon. There was lymphovascular as well as perineural invasion observed. One tumor deposit. One of 13 nodes. -mpT4b pN1 M0 adenocarcinoma of the sigmoid colon. Focal involvement of bladder. Lymphovascular invasion was observed. No tumor deposits. One of 9 nodes involved. -He is tolerating adjuvant chemotherapy, infusional 5-fluorouracil well. -Discussed plan to complete 12 cycles. -Will consider radiation oncology opinion after completing chemotherapy. Plan: -Continue therapy. (M79.89) Leg swelling Assessment: -Low suspicion for DVT, but since it is unilateral and he is on chemotherapy and is 2 months out from major abdominal surgery, will obtain ultrasound to rule out DVT. Plan: -US today or . (M54.9, G89.29) Other chronic back pain Assessment: -Chronic low back pain for which he takes Vicodin 10/325 one tablet every 6 hours. He's been on this long-term as previously prescribed by his primary care physician. -Explained today to the patient that providers in this office will not prescribe narcotic pain medication for chronic pain unrelated to cancer diagnosis. Plan: -He will be referred for establishment with primary care physician here with the understanding that her primary care physician may not necessarily continue narcotic prescriptions for chronic pain. So, I encouraged him to contact his previous care physician for refills. Sam Greenberg DO HOSP Observed: 09/09/2017 Status: COMPLETED Source: [facility] 11:30 AM [facility] REPOSITORY Infusion Center ([facility]) SAM HAGEN ([id number]) 1940 M Date Time Provider Department 09/09/17 11:30 AM [facility] During your visit today, we recorded the following information about you: Referring Provider: SAM GREENBERG [[id number]] Allergies As of Date: 09/09/2017 (No Known Allergies) Date Reviewed: 09/09/2017 Reviewed by: Asha Prater - Fully Assessed Reason for Visit: Blood Draw (CVAD) [1758] Primary Visit Diagnosis:Malignant neoplasm of sigmoid colon (HCC) [C18.7] Prescriptions as of 09/09/2017 Sig: HYDROCODONE 10 MG-ACETAMINOPH* Take 1 tablet by mouth every * LOPERAMIDE 2 MG TABLET Take 2 mg by mouth as needed. ONDANSETRON HCL 8 MG TABLET Take 1 tablet by mouth every * TOLTERODINE ER 2 MG CAPSULE,E* Take 1 capsule by mouth once * ISOSORBIDE MONONITRATE ER 60 * Take 60 mg by mouth once renu* GABAPENTIN 300 MG CAPSULE Take 300 mg by mouth three ti* NITROGLYCERIN 0.4 MG SUBLINGU* Dissolve 0.4 mg under the ton* ASPIRIN LOW DOSE ORAL Take 81 mg/day by mouth once * * ATENOLOL 50 MG TABLET Take one(1) tablet daily. * ZOCOR 40 MG TABLET Take one(1) tablet daily at b* Problem List As Of Date 09/09/2017 Noted Resolved Bowel obstruction [K56.609] INVALID FOR*07/10/2017 Other specified abnormal immunological findings*INVALID FOR* More... Colon cancer (HCC) [C18.9] INVALID FOR* More... 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] INVALID FOR* Pneumonia [J18.9] INVALID FOR*07/19/2017 Malignant neoplasm of sigmoid colon (HCC) [C18.*INVALID FOR* Malignant neoplasm of ascending colon (HCC) [C1*INVALID FOR* Encounter Status:Closed by FRANKO SAGE on 09/09/17 PROGRESS Observed: 09/04/2017 Status: COMPLETED Source: [facility] 7:00 PM [facility] REPOSITORY [facility] ID: [id number] Author: Edilma Foy (Pa) Service: (none) Author Type: Physician Supply Crib Attendant Type: Progress Notes Filed: 09/04/2017 7:21 PM Note Text: Patient already scheduled for urological procedures with Dr. Bagley and will continue with that group for now No charge to day ELLYN Guan, [place], [place] Observed: 09/04/2017 Status: COMPLETED Source: [facility] 1:30 PM [facility] REPOSITORY Office Visit (UROLWS) SAM HAGEN ([id number]) 1940 M Date Time Provider Department 09/04/17 1:30 PM EDILMA FOY) UROKATIE During your visit today, we recorded the following information about you: Pulse Blood pressure Weight Height 68/minute 114/64 78.9 kg 1.702 m BIMAL Hou 09/04/2017 7:21 PM Signed Patient already scheduled for urological procedures with Dr. Bagley and will continue with that group for now No charge to day ELLYN Gaun, [place], PA-C Referring Provider: TIKA IRIZARRY [[id number]] Allergies As of Date: 09/04/2017 (No Known Allergies) Date Reviewed: 09/04/2017 Reviewed by: Tami Shelton Ma - Fully Assessed Reason for Visit: New Patient [172] bladder issues [Other] Bladder Cancer [515] Reason For Visit History Recorded Primary Visit Diagnosis:Dysuria [R30.0] Order(s):UA DIP, URINE (POC) [7721858] Order #: [id number]. #:[id number] Prescriptions as of 09/04/2017 Sig: HYDROCODONE 10 MG-ACETAMINOPH* Take 1 tablet by mouth every * LOPERAMIDE 2 MG TABLET Take 2 mg by mouth as needed. ONDANSETRON HCL 8 MG TABLET Take 1 tablet by mouth every * ISOSORBIDE MONONITRATE ER 60 * Take 60 mg by mouth once renu* GABAPENTIN 300 MG CAPSULE Take 300 mg by mouth three ti* NITROGLYCERIN 0.4 MG SUBLINGU* Dissolve 0.4 mg under the ton* * ATENOLOL 50 MG TABLET Take one(1) tablet daily. * ZOCOR 40 MG TABLET Take one(1) tablet daily at b* TOLTERODINE ER 2 MG CAPSULE,E* Take 1 capsule by mouth once * ASPIRIN LOW DOSE ORAL Take 81 mg/day by mouth once * Problem List As Of Date 09/04/2017 Noted Resolved Bowel obstruction [K56.609] INVALID FOR*07/10/2017 Other specified abnormal immunological findings*INVALID FOR* More... Colon cancer (HCC) [C18.9] INVALID FOR* More... 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] INVALID FOR* Pneumonia [J18.9] INVALID FOR*07/19/2017 Malignant neoplasm of sigmoid colon (HCC) [C18.*INVALID FOR* Malignant neoplasm of ascending colon (HCC) [C1*INVALID FOR* Encounter Status:Closed by EDILMA FOY PA-C on 09/04/17 ALLERGIES ALLERGIES DATE TYPE / CODE NAME / CODE REACTION SEVERITY SOURCE 07/30/2018 Drug No Known Unknown [facility] Allergy/416 Allergies/Z61146 Hospital 482122(SNOM 0388(RXNORM) Repository ED CT) Drug NO KNOWN [facility] Class/74479 ALLERGIES [facility] [place] 1003(SNOMED Repository CT) ENCOUNTERS ENCOUNTERS ADMIT/DISCHARGE ACCOUNT ADMITTING ENCOUNTER LOCATION SOURCE NUMBER CLASS 08/13/2018 [id number] Ambulatory [facility] ing:LAB Repository 08/12/2018/08/12/20 [id number] Ambulatory [address] [facility] [place] Repository 08/10/2018/08/10/20 [id number] Ambulatory [address] [facility] [place] Repository 08/10/2018/08/10/20 [id number] Ambulatory [place] [facility] [place] Repository 08/10/2018/08/11/20 [id number] Ambulatory [address] [facility] [place] Repository 08/03/2018/08/10/20 [id number] Ambulatory [place] [facility] [place] Repository 08/03/2018/08/03/20 [id number] Ambulatory [place] [facility] [place] Repository 08/03/2018/08/03/20 [id number] Ambulatory [place] [facility] [place] Repository 07/30/2018/07/30/20 [id number] Ambulatory [place] 18 [facility] [place] Repository 07/30/2018/07/31/20 [id number] Ambulatory [place] [facility] [place] Repository 07/30/2018/07/30/20 [id number] Ambulatory BMSBuilding:B [place] 18 [facility] Repository 07/21/2018 [id number] Ambulatory [facility] ing:RAD Repository 06/29/2018/06/30/20 [id number] Ambulatory [address] [facility] [place] Repository 06/01/2018/06/02/20 [id number] Ambulatory [address] [facility] [place] Repository 05/26/2018/05/26/20 [id number] Ambulatory [place] [facility] [place] Repository 05/04/2018/08/20/20 [id number] Ambulatory [place] [facility] [place] Repository 05/04/2018/05/05/20 [id number] Ambulatory [place] [facility] [place] Repository 05/04/2018/05/04/20 [id number] Ambulatory [address] [facility] [place] Repository 04/29/2018/04/30/20 [id number] Ambulatory [address] [facility] [place] Repository 04/02/2018/04/02/20 [id number] Ambulatory [place] [facility] [place] Repository 04/02/2018/04/03/20 [id number] Ambulatory [address] [facility] [place] Repository 02/25/2018/02/28/20 [id number] Ambulatory [address] [facility] [place] Repository 02/17/2018/02/18/20 [id number] Ambulatory [address] [place] Repository 02/17/2018/02/19/20 [id number] Ambulatory [address] [facility] [place] Repository 02/17/2018/02/18/20 [id number] Ambulatory [address] [facility] [place] Repository 01/29/2018/01/30/20 [id number] Ambulatory [address] [facility] [place] Repository 01/28/2018/01/30/20 [id number] Ambulatory [address] [facility] [place] Repository 01/28/2018 [id number] Ambulatory [facility] [place] Repository 01/28/2018/01/29/20 [id number] Ambulatory [address] [place] Repository 01/27/2018/01/28/20 [id number] Ambulatory [facility]:B [place] 18 [facility] Repository 01/26/2018/01/29/20 [id number] Ambulatory [address] [place] Repository 01/26/2018 [id number] Ambulatory B[facility]Building:B [place] [facility] Repository 01/22/2018/01/24/20 [id number] Ambulatory [address] [facility] [place] Repository 01/20/2018 [id number] Ambulatory [facility] [place] Repository 01/20/2018/01/22/20 [id number] Ambulatory [address] [facility] [place] Repository 01/20/2018/01/21/20 [id number] Ambulatory [address] [facility] [place] Repository 01/07/2018/01/09/20 [id number] Ambulatory [place] [facility] [place] Repository 01/05/2018/01/07/20 [id number] Ambulatory [place] [facility] [place] Repository 01/02/2018/01/06/20 [id number] Ambulatory [place] [facility] [place] Repository 01/02/2018/01/03/20 [id number] Ambulatory [place] [facility] [place] Repository 01/02/2018 [id number] Ambulatory [facility] [place] Repository 12/25/2017/12/27/19 [id number] Ambulatory [place] [facility] [place] Repository 12/23/2017/12/25/19 [id number] Ambulatory [place] [facility] [place] Repository 12/23/2017 [id number] Ambulatory [facility] [place] Repository 12/23/2017/12/24/19 [id number] Ambulatory [place] [facility] [place] Repository 12/15/2017 [id number] Ambulatory [facility] [place] Repository 12/15/2017/12/17/19 [id number] Ambulatory [place] [facility] [place] Repository 12/15/2017/12/16/19 [id number] Ambulatory [place] [facility] [place] Repository 12/04/2017/12/06/19 [id number] Ambulatory [place] [facility] [place] Repository 12/02/2017 [id number] Ambulatory [facility] [place] Repository 12/02/2017/12/04/19 [id number] Ambulatory [place] [facility] [place] Repository 11/20/2017/11/22/19 [id number] Ambulatory [place] [facility] [place] Repository 11/18/2017/11/20/19 [id number] Ambulatory [place] [facility] [place] Repository 11/17/2017/11/18/19 [id number] Ambulatory [place] [facility] [place] Repository 11/17/2017/11/19/19 [id number] Ambulatory [place] [facility] [place] Repository 11/17/2017 [id number] Ambulatory [facility] [place] Repository 11/06/2017/11/07/19 [id number] Ambulatory [place] [facility] [place] Repository 11/05/2017 [id number] Ambulatory [facility] ing:ET Repository 11/04/2017/11/05/19 [id number] Ambulatory [place] [facility] [place] Repository 11/04/2017/11/04/19 [id number] Ambulatory [place] [facility] [place] Repository 10/30/2017/11/19/19 [id number] Ambulatory [place] [facility] [place] Repository 10/23/2017/10/24/19 [id number] Ambulatory [place] [facility] [place] Repository 10/21/2017/10/22/19 [id number] Ambulatory [place] [facility] [place] Repository 10/20/2017/10/21/19 [id number] Ambulatory [place] [facility] [place] Repository 10/20/2017 [id number] [facility]ulatory [facility] [place] Repository 10/20/2017/10/20/19 [id number] Ambulatory [place] [facility] [place] Repository 10/09/2017/10/10/19 [id number] Ambulatory [place] [facility] [place] Repository 10/07/2017/10/08/19 [id number] Ambulatory [place] [facility] [place] Repository 10/06/2017/10/09/19 [id number] Ambulatory [place] [facility] [place] Repository 10/06/2017 [id number] [facility]ulatory [facility] [place] Repository 10/06/2017/10/06/19 [id number] Ambulatory [place] [facility] [place] Repository 09/25/2017/09/25/19 [id number] Ambulatory [place] [facility] [place] Repository 09/24/2017/09/25/19 [id number] Ambulatory [place] [facility] [place] Repository 09/22/2017/09/23/19 [id number] Ambulatory [place] [facility] [place] Repository 09/22/2017 [id number] [facility] [place] Repository 09/22/2017/09/22/19 [id number] Ambulatory [place] [facility] [place] Repository 09/11/2017/09/12/20 [id number] Ambulatory [place] [facility] [place] Repository 09/11/2017/09/11/20 [id number] Ambulatory [place] [facility] [place] Repository 09/09/2017/10/10/19 [id number] Ambulatory [place] [facility] [place] Repository 09/09/2017 [id number] Ambulatory [facility] [place] Repository 09/09/2017/09/09/20 [id number] Ambulatory [place] [facility] [place] Repository 09/09/2017/09/09/20 [id number] Ambulatory [place] [facility] [place] Repository 09/05/2017 [id number] Ambulatory [facility] ing:SD Repository 09/04/2017/09/05/[id number] Repository PAYERS PAYERS ENCOUNTER GUARANTOR PAYER SUBSCRIBER SOURCE 08/13/2018 SAM [id number] Primary SAM E LYONSDOB: [place] Insurance[id number] [facility] [id number]: (330) Number: Repository [phone] () [id number] Date:2018-08-13 08/13/2018 Secondary SAM E LYONSDOB: [place] Insurance:[facility] [id number] Community y Number: Hospital [id number] Repository Date:4744-88-86QQ [address] [place] [address] 48252XE: 08/13/2018 Tertiary NOT GIVENUNK [place] Insurance:SELF PAY [facility] Number: Effective Repository Date:2018-08-13 07/30/2018 SAM [id number] Primary SAM Curry LYONSDOB: [place] N SM[place]ER Insurance:MEDICARE [id number] [id number]: (330) Number: Repository [phone] () [id number] Date:2018-01-27 07/30/2018 Secondary SAM E LYONSDOB: [place] Insurance:[facility] [id number] Community y Number: Hospital [id number] Repository Date:0644-67-07MT [address] [place] [address] 00593LB: 07/30/2018 Tertiary NOT GIVENUNK [place] Insurance:SELF PAY [facility] Number: Effective Repository Date:2018-07-30 07/21/2018 SAM Curry [id number] Primary SAM E LYONSDOB: [place] Insurance:MEDIC[place] [id number] [facility] [id number]: (330) Number: Repository [phone] () [id number] Date:2018-07-21 07/21/2018 Secondary SAM E LYONSDOB: [place] Insurance:ANTHE[employer]olic [id number] [facility] y Number: Hospital [id number] Repository Date:2866-57-68EX [address] [place] [address] 43117HD: 07/21/2018 Tertiary NOT GIVENUNK [place] Insurance:SELF PAY [facility] Number: Effective Repository Date:2018-07-21 01/27/2018 SAM Antoinette [id number] Primary SAM E LYONSDOB: [place] Insurance:[place]IC[id number] [facility] [id number]: (330) Number: Repository [phone] () [id number] Date:2017-08-25 01/27/2018 Secondary SAM E LYONSDOB: [place] Insurance:[place]HE[place] [id number] Community y Number: Hospital [id number] Repository Date:7248-12-64[address]X [address], [place] [address]NC: 01/27/2018 Tertiary NOT GIVENUNK [place] Insurance:SELF PAY [facility]: Effective Repository Date:2018-01-27 01/26/2018 SAM Curry [id number] Primary SAM E LYONSDOB: [place] Insurance:MEDICARE [id number] [place] PART A [facility] [id number]: (330) Number: Repository [phone] () [id number] Date:2018-01-26 01/26/2018 Secondary SAM E LYONSDOB: [place] Insurance:[employer]HE[employer]olic [id number] Community y Number: Hospital [id number] Repository Date:1346-92-46FF [id number] [place] [address] 36553QU: 01/26/2018 Tertiary NOT GIVENUNK [place] Insurance:SELF PAY [facility] Number: Effective Repository Date:2018-01-26 11/05/2017 SAM Curry [id number] Primary SAM E LYONSDOB: [place] N [place] Insurance:MEDICARE [id number] [place] PART A [facility] [id number]: (330) Number: Repository [phone] () [id number] Date:2017-11-05 11/05/2017 Secondary SAM E LYONSDOB: [place] Insurance:[place] [id number] Community y Number: Hospital [id number] Repository Date:8313-62-76KW [address] [place] [address] 50263AF: 11/05/2017 Tertiary NOT GIVENUNK [place] Insurance:SELF PAY [facility] Number: Effective Repository Date:2017-11-05 09/05/2017 SAM Curry [id number] Primary SAM E LYONSDOB: [place] N [place] Insurance:MEDICARE [id number] [facility] 15[address]Okh: (330) Number: Repository [phone] () [id number] Date:2017-09-02 09/05/2017 Secondary SAM E LYONSDOB: [place] Insurance:[facility] [id number] Community y Number: Hospital [id number] Repository Date:0975-84-09FK [address] [place] [address] 97462GK: 09/05/2017 Tertiary NOT GIVENUNK [place] Insurance:SELF PAY [facility] Number: Effective Repository Date:2017-09-05
== END ==
PROVIDERS: Family Provider Family Medicine; PCP Family Medicine; Referring Provider Anesthesiology Pain Medicine; Visit Provider Anesthesiology Pain Medicine
DX: F11.20 Opioid dependence, uncomplicated (principal)
CPT/HCPCS: 80307

== ENCOUNTER → 2019-04-01 11:51 | Outpatient (CLI) | payer MEDICARE, BC, SELFPAY ==
[2019-02-09 12:43] VITALS: BMI 27.2
[2019-04-01 12:50] LABS: PSA,Total- Diagnostic 0.15 ng/mL (0.0-4.0)
== END ==
PROVIDERS: Family Provider Family Medicine; PCP Family Medicine; Referring Provider Nurse Practitioner Adult Health; Visit Provider Nurse Practitioner Adult Health
DX: C61 Malignant neoplasm of prostate (principal)
CPT/HCPCS: 36415; 84153

== ENCOUNTER → 2019-06-23 12:07 | Outpatient (CLI) | payer MEDICARE, BC, SELFPAY ==
[2019-02-09 12:43] VITALS: BMI 27.2
--- NOTE | 2019-06-23 13:22 | NEURO ---
NCS and/or EMG Patient Report Ordering Doctor: Sophie Olivera DATE OF SERVICE: 06/23/19 This is an 79-year-old male presents for electrodiagnostic testing of the right lower limb. He reports right leg pain with worsening pain and numbness around the right foot. Electrodiagnostic findings: Right peroneal motor nerve demonstrates borderline prolonged distal latency with normal amplitude and reduced conduction velocity. Right tibial latency is within normal limits with reduced amplitude. Prolonged right tibial and peroneal F wave. Absent right medial plantar response. Normal sural and superficial peroneal responses. H reflex prolonged bilaterally. On needle EMG, all muscles tested in the right lower limb showed no evidence of denervation with normal motor unit action potentials. No denervation of the lumbar paraspinals. Electrodiagnostic impression: This is an abnormal study in the right lower limb. 1. 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 Absent right medial plantar response is noted. 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 2. No electrodiagnostic evidence for lumbosacral radiculopathy is noted. If there are any further questions, please do not hesitate to contact me
== END ==
PROVIDERS: Family Provider Family Medicine; PCP Family Medicine; Referring Provider Podiatrist; Visit Provider Podiatrist
DX: M54.10 Radiculopathy, site unspecified (principal); M79.671 Pain in right foot
CPT/HCPCS: 95886; 95910

== ENCOUNTER → 2019-06-28 10:19 | Outpatient (CLI) | payer MEDICARE, BC, SELFPAY ==
[2019-02-09 12:43] VITALS: BMI 27.2
[2019-06-28 12:02] LABS: Amphetamine Urine VISTA NEGATIVE (<1000 ng/mL); Barbiturate Urine VISTA NEGATIVE (< 200 ng/mL); Benzodiazepine Urine VISTA NEGATIVE (< 200 ng/mL); Cocaine Urine VISTA NEGATIVE (< 300 ng/mL); Ecstacy Urine VISTA NEGATIVE (< 500 ng/mL); Methadone Urine VISTA NEGATIVE (< 300 ng/mL); PCP Urine VISTA NEGATIVE (< 25 ng/mL); THC Urine VISTA NEGATIVE (< 50 ng/mL)
[2019-06-28 12:37] LABS: Vista UDS pH Range 5
== END ==
PROVIDERS: Family Provider Family Medicine; PCP Family Medicine; Referring Provider Anesthesiology Pain Medicine; Visit Provider Anesthesiology Pain Medicine
DX: F11.20 Opioid dependence, uncomplicated (principal)
CPT/HCPCS: 80307

== ENCOUNTER → 2019-11-18 | Outpatient (CLI) | payer MEDICARE, BC, SELFPAY ==
[2019-02-09 12:43] VITALS: BMI 27.2
== END | disposition home or self-care (01) ==
LOC: LABSPEC 16:42
PROVIDERS: PCP Family Medicine; Referring Provider Urology; Visit Provider Urology
DX: R31.9 Hematuria, unspecified (principal)
CPT/HCPCS: 87086

== ENCOUNTER → 2020-02-22 10:50 | Outpatient (CLI) | payer MEDICARE, BC, SELFPAY ==
[2020-02-10 10:12] VITALS: BMI 27.8
--- NOTE | 2020-02-22 10:55 | RAD_ITS ---
HISTORY: CHRONIC RIGHT HIP PAIN ADDITIONAL HISTORY: None provided. TECHNIQUE: Right hip 2 views with AP pelvis Number of images including paperwork: 3 COMPARISON: None FINDINGS: BONES: No acute fracture. Right superior and inferior pubic ramus fractures. JOINTS: No subluxation. Degenerative changes in the visualized spine, sacroiliac joints and symphysis pubis. SOFT TISSUES: No distinct foreign body. Surgical tacks in the right lower quadrant. RAD/HIP, UNI W/ Pelvis 2-3 Views IMPRESSION: No acute osseous abnormality. at 0551 Reported and signed by: Nora Leung MD Electronically Signed: Nora Leung MD at 5:51 EDT Tel , Service support ,
== END ==
PROVIDERS: PCP Family Medicine; Referring Provider Nurse Practitioner Family; Visit Provider Nurse Practitioner Family
DX: M25.551 Pain in right hip (principal)
CPT/HCPCS: 73502

== ENCOUNTER → 2020-04-24 13:35 | Outpatient (CLI) | payer MEDICARE, BC, SELFPAY ==
[2020-02-10 10:12] VITALS: BMI 27.8
--- NOTE | 2020-04-24 13:50 | RAD_ITS ---
STUDY: X-RAY - ABDOMEN/PELVIS REASON FOR EXAM: Male, 80 years old. UTI, BLADDER CA TECHNIQUE: Single AP view of the abdomen / pelvis. COMPARISON: None. FINDINGS: Normal visualized lung bases. There is an unremarkable bowel gas pattern. The visualized liver, spleen and kidneys are grossly normal in size and morphology. Evidence of prior hernia repair in the right lower quadrant. There are diffuse degenerative changes of the visualized lumbar spine. Mild dextroscoliosis. RAD/Abdomen Single View IMPRESSION: Degenerative changes of the lumbar spine. Electronically Signed: Kevon Sorto, at 15:51 EDT , Service support ,
== END ==
PROVIDERS: PCP Family Medicine; Referring Provider Urology; Visit Provider Urology
DX: N40.1 Benign prostatic hyperplasia with lower urinary tract symptoms (principal)
CPT/HCPCS: 74018; 87077; 87086; 87088; 87186

== ENCOUNTER 2020-08-04 20:16 | Emergency (ER) | payer MEDICARE, BC, SELFPAY ==
[2020-02-10 10:12] VITALS: BMI 27.8
[2020-08-04 20:16] VITALS: BP 128/73; PULSE 85; RESP 18; TEMP 36.2; O2SAT 97; BMI 26.2
--- NOTE | 2020-08-04 21:51 | CT_ITS ---
STUDY: CT ABDOMEN AND PELVIS WITHOUT CONTRAST REASON FOR EXAM: Male, 80 years old. HERNIA SX YESTERDAY, TODAY GOT UP AND NOW HAS SEVERE PAIN WITH EMESIS, COLON RESECTION IN PAST WITH PROCTECTOMY, HAS HAD HERNIA REPAIRS IN THE PAST RADIATION DOSAGE (If Supplied By Facility): CTDIvol = ( 6.69 ) mGy, DLP = ( 464.61 ) mGycm TECHNIQUE: Transaxial images were obtained from the dome of the diaphragm to the symphysis pubis without oral contrast, and without intravenous contrast. Sagittal and coronal images were reconstructed. Individualized dose optimization techniques were used for this CT. COMPARISON: Prior abdomen and pelvic CT exam of 07/14/2017 FINDINGS: Multifocal broad linear curvilinear areas of atelectasis, scarring or infiltrate. Normal liver. Normal gallbladder and extrahepatic biliary system. There are multiple benign calcified granulomata of the spleen. Atrophy of the pancreas Normal bilateral adrenal glands. Normal size of the kidneys bilaterally without hydronephrosis. Stable simple renal cysts. Fluid-filled distended stomach and lower . It appears that all or at least most of the colon has been removed with an ostomy in the left lower quadrant. All of the internal bowel is distended and fluid-filled. The last segment exiting the abdomen is slightly less distended. Other than the ostomy site itself there is no other obvious transition zone. There is diffuse atherosclerotic calcification of the abdominal aorta, without a demonstrated aneurysm. Normal inferior vena cava. Normal retroperitoneum. Nondistended urinary bladder. There is a [place] ventral hernia containing a nondilated loop of small bowel. The loop is dilated both entering and exiting and does not appear to be the primary site of obstruction but may be a contributing factor. Advanced degenerative disc and joint changes with multilevel spinal stenosis. CT/Abdomen/Pelvis without Cont IMPRESSION: Fluid-filled distended lower esophagus, stomach and all of the internal bowel which appears to be mostly small bowel exiting through a left lower quadrant ostomy. Findings are certainly suspicious for bowel obstruction although no specific transition zone is identified other than the ostomy itself. There continues to be a midline hernia of the abdominal wall which contains a loop of dilated small bowel. The bowel is dilated prior to and leaving the hernia. This does not appear to be the primary obstruction but could contribute to the overall obstructive pattern. Minimal amount of free air consistent with postoperative changes. Unremarkable liver. Calcified granuloma of the spleen. Atrophy of the pancreas and a nondistended gallbladder. No acute renal findings or changes. Nondistended urinary bladder. Electronically Signed: Shy Chavis MD at 23:30 EST , Service support ,
--- NOTE | 2020-08-04 21:52 | ED.VIS.GI ---
History of Present Illness Chief Complaint: Abd Pain Informant: Patient - Abdominal Pain/Flank Pain Onset: Today Context: Sudden Onset - When sat up out of recliner Timing: Continuous Quality: Aching Location: Diffuse Current Severity: Severe Maximum Severity: Severe Worsened by: Nothing Relieved by: Nothing - Nausea/Vomiting/Emesis GI Symptom: Nausea, Vomiting Onset: Today Quality: Nonbilious. Negative for: Blood streaks - Diarrhea/Melena/Hematochezia GI Symptom: - - Less ileostomy output now that pain has begun but was doing okay postoperatively yesterday Associated Symptoms: Negative for: Dysuria, Frequency, Hematuria, Urgency Narrative: Patient has an ileostomy, he had a stomal hernia and an associated herniorrhaphy 2 days ago at [facility]. Tonight he had sudden acute worsening of the pain as he was getting out of his recliner and has been vomiting with less ileostomy output. - Past Medical History (1) Atherosclerosis of coronary artery of [place] heart without angina pectoris Status: Chronic Comment: PTCA-distal and prox LCx 11/13/1993; PIN OR CLIP FASTENER LCx per [facility] 08/2002 (2) Colon cancer Status: Chronic (3) Essential (primary) hypertension Status: Chronic (4) HLD (hyperlipidemia) Status: Chronic (5) History of prostate cancer Status: Chronic Comment: undergoing radiation treatment (6) Old inferior wall myocardial infarction Status: Chronic (7) H/O percutaneous transluminal coronary angioplasty Status: Resolved Comment: PTCA-distal and prox LCx 11/13/1993 Past Medical History - Allergies and Home Meds Allergies/Adverse Reactions: Allergies No Known Allergies Allergy (Verified 08/04/20 20:19) Primary Care Physician: Vishal Antonio MD [Primary Care Provider] - Surgical History: - - carpal tunnel, cataract surgery. inguinal hernia surgery. Smoking Status: Never smoker - Family History Maternal Family History: Family History (Last Reviewed 02/10/20 @ 16:[address] Earl Huntley MD) Father Cancer Mother Myocardial infarction Diabetes Family History: Reports: Heart Disease Paternal Family History: Family History (Last Reviewed 02/10/20 @ 16:[address] Earl Huntley MD) Father Cancer Mother Myocardial infarction Diabetes Family History: Reports: - - prostate cancer Review of Systems ROS: Unable to Obtain - Limited due to pain and vomiting General: Denies: Chills, Fever, Sweats Cardiovascular: Denies: Chest pain, Palpitations Respiratory: Denies: Dyspnea, Cough Gastrointestinal: Reports: Abdominal pain, Nausea, Vomiting. Denies: Melena, Hematochezia Genitourinary: Denies: Dysuria, Hematuria, Frequency Musculoskeletal: Denies: Back pain, Swelling, Extremity Pain Physical Exam Vital Signs/Narrative: Vital Signs Temp Pulse Resp BP Pulse Ox 08/04/20 20:16 97.2 F L 85 18 128/73 H 97 Inital Vital Signs reviewed: Yes General: Well nourished, Well developed, Acute Distress - Appears malaise and ill, vomiting intermittently Head: Normocephalic, Atraumatic Eyes: Perrl, EOMI ENT: Moist mucous membranes, No rhinorrhea Neck: Supple, Nontender Cardiovascular: Regular rate, Regular rhythm, No murmurs. Negative for: Tachycardia Respiratory: No distress, CTA bilaterally, Chest nontender Abdomen: Soft, Tender - Diffusely, mostly periumbilical and epigastric with mild distention there, Hypoactive bowel sounds, - - Ileostomy appears healthy, no output in the bag currently. Negative for: Guarding, Rebound tenderness Back: Nontender, Normal Inspection Extremities: Nontender, No edema Skin: Normal color, No rash Neurological: Alert, Oriented x3, Cranial nerves II-XII grossly intact, Normal Strength, Normal Sensation Psychological: Normal affect, Normal Mood Diagnostic/Tx/Re-eval Impressions Abdomen/Pelvis CT 08/04/20 21:51 IMPRESSION: Fluid-filled distended lower esophagus, stomach and all of the internal bowel which appears to be mostly small bowel exiting through a left lower quadrant ostomy. Findings are certainly suspicious for bowel obstruction although no specific transition zone is identified other than the ostomy itself. There continues to be a midline hernia of the abdominal wall which contains a loop of dilated small bowel. The bowel is dilated prior to and leaving the hernia. This does not appear to be the primary obstruction but could contribute to the overall obstructive pattern. Minimal amount of free air consistent with postoperative changes. Unremarkable liver. Calcified granuloma of the spleen. Atrophy of the pancreas and a nondistended gallbladder. No acute renal findings or changes. Nondistended urinary bladder. Electronically Signed: Shy Chavis MD at 23:30 EST , Service support , 08/04/20 21:51 Abdomen/Pelvis without Cont [CT] Stat Laboratory Results 08/04/20 08/04/20 08/04/20 21:14 21:14 21:52 WBC 10.8 RBC 5.03 Hgb 15.6 Hct 48.4 MCV 96.2 H MCH 31.0 MCHC 32.2 RDW Std Deviation 46.8 H RDW Coeff of Kathryn 13.2 Plt Count 233 MPV 9.7 Immature Gran % (Auto) 0.300 Neut % (Auto) 73.3 H Lymph % (Auto) 18.5 L [place] % (Auto) 5.8 Eos % (Auto) 1.7 Baso % (Auto) 0.4 Absolute Neuts (auto) 7.9 H Absolute Lymphs (auto) 1.99 Nucleated RBC % 0 Sodium 139 Potassium 4.2 Chloride 100 Carbon Dioxide 30.0 Anion Gap 9 BUN 18 Creatinine 1.48 H Estim Creat Clear Calc 36.60 Est GFR (MDRD) Af Amer 59 L Est GFR (MDRD) Non-Af 48 L BUN/Creatinine Ratio 12.2 Glucose 183 H Lactic Acid 5.1 H* Calcium 9.7 Total Bilirubin 0.60 AST 30 ALT 33 Alkaline Phosphatase 98 Total Protein 8.2 Albumin 4.3 Globulin 3.9 Albumin/Globulin Ratio 1.1 Lipase 126 - Medical Decision Making Patient was treated with IV fluids, morphine, Zofran. On reevaluation he is feeling better and still exquisitely tender in his abdomen. He has had no ileostomy output in the last 3 hours here in the ER. I discussed his CT findings with he and his daughter. I recommend transfer back to [facility] since he just had surgery there. They are in agreement with that. Discussed with the transfer center and surgery there, he had surgery with Dr. Gabriel Gonzalez. Surgery requested ED-ED transfer, accepted to the ED by Dr. Carl. ED Disposition - Plan for ED Patient: Disposition: [facility] Diagnosis: Small bowel obstruction Referrals: Vishal Antonio MD [Primary Care Provider] -
[2020-08-04 22:01] LABS: Absolute Lymphocyte Count 1.99 X10^3/uL (0.83-4.51); Absolute Neutrophil Count 7.9 X10^3/uL (2.0-7.7); Basophil# 0.04 X10^3/uL; Basophil% 0.4 % (0-1); Eosinophil# 0.18 X10^3/uL; Eosinophils% 1.7 % (0-5); Hematocrit 48.4 % (40-54); Hemoglobin 15.6 g/dL (13.0-16.5); Lymphocyte # 1.99 X10^3/ul (4.0); Lymphocyte % 18.5 % (19-41); Mean Corp Hgb Conc 32.2 g/dL (32-36); Mean Corpuscular Volume 96.2 fL (80-94); Mean Platelet Vol. 9.7 fl (6.2-12.0); Monocyte# 0.62 X10^3/uL; Monocyte% 5.8 % (0-10); NRBC Flagged by Analyzer 0 % (0-5); Neutrophil % 73.3 % (47-70); Platelet Count 233 K/mm3 (150-450); RBC Distribution Width CV 13.2 % (11.6-14.6); RBC Distribution Width SD 46.8 fl (35.1-43.9); Red Blood Count 5.03 M/mm3 (4.6-6.2); White Blood Count 10.8 K/mm3 (4.4-11.0)
[2020-08-04] MEDS: 0.9% Normal Saline 1,000 ML 1000 ML IV (22:31)
[2020-08-04] MEDS: Ondansetron 4 MG/2 ML Vial IV (22:31)
[2020-08-04 22:32] LABS: ALB/GLOB Ratio 1.1 RATIO (0.9-2.4); AST(SGOT) 30 U/L (15-37); Alanine Aminotransfer ALT/SGPT 33 U/L (16-61); Albumin, Serum 4.3 g/dL (3.2-5.0); Alkaline Phosphatase 98 U/L (45-117); Anion Gap 9 (5-15); BUN 18 mg/dL (7-18); BUN/Creat Ratio 12.2 RATIO (10-20); Calcium,Total 9.7 mg/dL (8.5-10.1); Chloride 100 mmol/L (98-107); Creatinine, Serum 1.48 mg/dL (0.70-1.30); EST Glomerular Filtration Rate 48 mL/min (>60); Est Glom Filt Rate - Afr Amer 59 mL/min (>60); Globulin 3.9 g/dL (2.2-4.2); Glucose 183 mg/dL (74-106); Lipase 126 U/L (73-393); Potassium 4.2 mmol/L (3.5-5.1); Protein, Total 8.2 g/dL (6.4-8.2); Sodium Level 139 mmol/L (136-145)
[2020-08-04] MEDS: Morphine 4 MG/ML Syringe IV (22:32)
[2020-08-04 22:58] LABS: Lactic Acid 5.1 mmol/L (0.4-1.9)
[2020-08-04 23:00] VITALS: BP 139/70; PULSE 99; RESP 16; TEMP 36.9; O2SAT 94
[2020-08-05 00:47] VITALS: BP 124/74; PULSE 98; RESP 18; TEMP 36.4; O2SAT 96
[2020-08-05 00:48] VITALS: BP 124/74; PULSE 98; RESP 18; TEMP 36.4; O2SAT 96
[2020-08-05 01:00] VITALS: BP 124/70; PULSE 100; RESP 14; RESP 19; TEMP 36.4; O2SAT 93; O2SAT 96
[2020-08-05] MEDS: Morphine 4 MG/ML Syringe IV (01:27)
[2020-08-05 02:38] LABS: Reflex Lactate? Y
== END 2020-08-05 01:35 | disposition short-term general hospital (02) ==
PROVIDERS: Emergency Provider Emergency Medicine; PCP Family Medicine
DX: K56.609 Unspecified intestinal obstruction, unspecified as to partial versus complete obstruction (principal); I25.10 Atherosclerotic heart disease of native coronary artery without angina pectoris; I25.2 Old myocardial infarction; I10 Essential (primary) hypertension; C61 Malignant neoplasm of prostate; E78.5 Hyperlipidemia, unspecified; Z93.2 Ileostomy status; Z79.82 Long term (current) use of aspirin; Z79.899 Other long term (current) drug therapy
CPT/HCPCS: 74176; 80053; 83605; 83690; 85025; 96361; 96374; 96375; 96376; 99284; J7030; A4216; J2405

== ENCOUNTER 2020-12-14 11:15 | Emergency (ER) | payer MEDICARE, BC, SELFPAY ==
[2020-12-14 11:16] VITALS: BP 147/79; PULSE 93; RESP 15; TEMP 36.1; O2SAT 96; BMI 25.5
[2020-12-14 11:29] VITALS: BP 137/80; PULSE 72; RESP 16; O2SAT 98
--- NOTE | 2020-12-14 12:11 | ED.DCSUM_ITS ---
History of Present Illness Chief Complaint: General Illness Informant: Patient Narrative: Patient is an 80-year-old male with a past medical history of CAD who presents to the emergency department for shakiness. He states he was out shopping whenever he developed a tremor in his hands. He has had this before in the past. It comes on randomly. He states that typically resolves after eating. Starting to feel better at time of arrival to the ED. He has been unsteady on his feet lately. He has arthritis in his hip which he does have an x-ray performed last month. He has had a few falls. He denies falling today or injuring himself. He denies ever hitting his head or losing consciousness. He is only on a baby aspirin and no other anticoagulation. He is complaining of right hip pain and right knee pain. This is chronic for him. He denies any chest pain, shortness of breath. No abdominal pain or nausea/vomiting. No recent illness including any fever/chills. He denies any headache or vision changes. Past Medical History - Allergies and Home Meds Allergies/Adverse Reactions: Allergies No Known Allergies Allergy (Verified 12/14/20 11:18) Primary Care Physician: Vishal Antonio MD [Primary Care Provider] - 1-2 Days if not improving Prior records reviewed: Yes Surgical History: - - carpal tunnel, cataract surgery. inguinal hernia surgery. Smoking Status: Never smoker - Family History Maternal Family History: Family History (Last Reviewed 02/10/20 @ 16:[address] Earl Huntley MD) Father Cancer Mother Myocardial infarction Diabetes Family History: Reports: Heart Disease Paternal Family History: Family History (Last Reviewed 02/10/20 @ 16:[address] Earl Huntley MD) Father Cancer Mother Myocardial infarction Diabetes Family History: Reports: - - prostate cancer Review of Systems All systems negative except as indicated General: Denies: Chills, Fever, Sweats Eyes: Denies: Visual changes - bilaterally, Diplopia ENT: Denies: Rhinorrhea, Sore throat Cardiovascular: Denies: Chest pain, Palpitations Respiratory: Denies: Dyspnea, Cough, Dyspnea on exertion Gastrointestinal: Denies: Abdominal pain, Nausea, Vomiting, Diarrhea Genitourinary: Denies: Dysuria, Hematuria, Frequency Musculoskeletal: Reports: Extremity Pain. Denies: Back pain Skin: Denies: Rash, Wounds Neurological: Reports: Weakness - Generalized, - - Tremors. Denies: Headache, Numbness Physical Exam Vital Signs/Narrative: Vital Signs Temp Pulse Resp BP Pulse Ox 12/14/20 11:29 72 16 137/80 H 98 12/14/20 11:16 96.9 F L 93 15 147/79 H 96 Inital Vital Signs reviewed: Yes General: Well nourished, Well developed, No Acute Distress Head: Normocephalic, Atraumatic Eyes: Perrl, EOMI ENT: Moist mucous membranes, No rhinorrhea Neck: Supple, Nontender Cardiovascular: Regular rate, Regular rhythm, No murmurs Respiratory: No distress, CTA bilaterally, Chest nontender Abdomen: Soft, Nontender, Nondistended, Normal bowel sounds Back: Nontender, Normal Inspection Extremities: Nontender, No edema, - - Mild tremor of right arm that is worse with intentional movements. Very minimal tremor of left arm. Difficulty lifting right arm due to old injury. Skin: Normal color, No rash Neurological: Alert, Oriented x3, Cranial nerves II-XII grossly intact, Normal Strength, Normal Sensation Psychological: Normal affect, Normal Mood Diagnostic/Tx/Re-eval - Medical Decision Making Patient presents to the ED for tremors and generalized weakness which has been improving since arrival to the emergency department. He has had this before in the past. He typically eats and this does resolve. He does have a benign physical exam without any focal neurological deficits. Will check basic lab work to evaluate electrolyte and blood counts. Patient's lab work did not reveal any significant acute abnormality. Is not anemic. No electrolyte disturbance. Troponin is negative. His tremor has been improving and has resolved at this time. This time he is asymptomatic. He is able to ambulate around the emergency department without any difficulty. He d oes feel comfortable being discharged home. He is going to follow-up with his PCP. Return precautions are reviewed with him. He understands and is agreeable this plan. All questions were answered. ED Disposition - Plan for ED Patient: Disposition: Home or Assisted Living Diagnosis: Occasional tremors Instructions: Essential Tremor Disorder Referrals: Vishal Antonio MD [Primary Care Provider] - 1-2 Days if not improving
[2020-12-14 12:24] LABS: Absolute Lymphocyte Count 1.23 X10^3/uL (0.83-4.51); Basophil# 0.03 X10^3/uL; Basophil% 0.4 % (0-1); Eosinophil# 0.08 X10^3/uL; Hematocrit 43.1 % (40-54); Hemoglobin 13.8 g/dL (13.0-16.5); Lymphocyte # 1.23 X10^3/ul (4.0); Lymphocyte % 15.1 % (19-41); Mean Corpuscular Hgb 28.9 pg (27.0-32.0); Mean Corpuscular Volume 90.4 fL (80-94); Mean Platelet Vol. 8.8 fl (6.2-12.0); Monocyte# 0.75 X10^3/uL; Monocyte% 9.2 % (0-10); NRBC Flagged by Analyzer 0 % (0-5); Neutrophil # 6.03 X10^3/uL (2.7-7.7); Neutrophil % 73.9 % (47-70); Platelet Count 178 K/mm3 (150-450); RBC Distribution Width CV 14.2 % (11.6-14.6); RBC Distribution Width SD 46.9 fl (35.1-43.9); Red Blood Count 4.77 M/mm3 (4.6-6.2); White Blood Count 8.2 K/mm3 (4.4-11.0)
[2020-12-14 12:42] LABS: Anion Gap 8 (5-15); BUN 21 mg/dL (7-18); BUN/Creat Ratio 22.7 RATIO (10-20); Calcium,Total 9.4 mg/dL (8.5-10.1); Chloride 107 mmol/L (98-107); Creatinine, Serum 0.93 mg/dL (0.70-1.30); EST Glomerular Filtration Rate 83 mL/min (>60); Est Glom Filt Rate - Afr Amer 101 mL/min (>60); Estimated Creatinine Clearance 58.24 ml/min; Glucose 107 mg/dL (74-106); Potassium 4.2 mmol/L (3.5-5.1); Sodium Level 140 mmol/L (136-145)
[2020-12-14 12:44] VITALS: BP 128/67; PULSE 67; RESP 18; O2SAT 98
[2020-12-14 12:48] LABS: AST(SGOT) 21 U/L (15-37); Alanine Aminotransfer ALT/SGPT 36 U/L (16-61); Albumin, Serum 4.1 g/dL (3.2-5.0); Alkaline Phosphatase 96 U/L (45-117); Bilirubin, Direct 0.12 mg/dL (0.00-0.30); Globulin 3.1 g/dL (2.2-4.2); Protein, Total 7.2 g/dL (6.4-8.2)
[2020-12-14 13:24] VITALS: BP 127/69; PULSE 70; RESP 16; O2SAT 99
== END 2020-12-14 13:25 | disposition home or self-care (01) ==
PROVIDERS: Emergency Provider Emergency Medicine; PCP Family Medicine
DX: R25.1 Tremor, unspecified (principal); I25.10 Atherosclerotic heart disease of native coronary artery without angina pectoris; Z79.82 Long term (current) use of aspirin; Z79.899 Other long term (current) drug therapy
CPT/HCPCS: 80048; 80076; 84484; 85025; 90471; 99285

== ENCOUNTER → 2021-07-24 10:50 | Outpatient (CLI) | payer MEDICARE, BC, SELFPAY ==
[2021-07-24 12:46] LABS: PSA,Total- Diagnostic 0.06 ng/mL (0.0-4.0)
== END ==
PROVIDERS: PCP Family Medicine; Referring Provider Urology; Visit Provider Urology
DX: C61 Malignant neoplasm of prostate (principal)
CPT/HCPCS: 36415; 84153

== ENCOUNTER 2021-10-21 12:37 | Emergency (ER) | payer MEDICARE, BC, SELFPAY ==
[2021-10-21 12:39] VITALS: BP 140/86; PULSE 65; RESP 17; TEMP 35.8; O2SAT 98; BMI 25.8
--- NOTE | 2021-10-21 13:09 | EDS_ITS ---
HPI HPI - Psych History of Present Illness Chief Complaint: Suicidal Detail of Chief Complaint: Anxiety, depression, suicidal ideation Informant: patient Narrative Narrative: Patient with longstanding history of anxiety and depression for which she does take medication but cannot tell me what he takes for it. Patient has been compliant with his medications. Patient recently found out that his dog is sick and will have to put him down in the vet wanted patient to bring the dog back on Briec's Day to put the dog down. Patient states he has not slept in 2 days and he feels anxious. Patient's had thoughts of killing himself by getting in the car in the garage and turning the car on. Patient states that he did not want to make a mess for anybody. Patient's been eating okay. He has been more tearful of late. Patient states he has not really slept well in the last 2 days. He wanted to come in and get something for his anxiety. He thinks that he can keep himself safe and does not want to act out on his thoughts of self-harm. Prior similar symptoms: No PFSH PFSH Medical History (Updated 10/21/21 @ 14:[address] Darleen Moulton, DO) Adenocarcinoma Atherosclerosis of coronary artery of ruby heart without angina pectoris BPH (benign prostatic hyperplasia) Bright's disease Colon cancer Essential (primary) hypertension History of prostate cancer History of radiation therapy HLD (hyperlipidemia) Old inferior wall myocardial infarction Home Medications finasteride 5 mg tablet 5 mg PO QDAY 01/27/18 [History Last Taken Unknown] aspirin 81 mg tablet,delayed release 81 mg PO DAILY 07/30/18 [History Last Taken Unknown] gabapentin 300 mg capsule 1 capsule PO BID 30 Days #60 cap 02/09/19 [History Last Taken Unknown] oxybutynin chloride 10 mg tablet,extended release 24 hr 10 mg PO DAILY tablet 02/10/20 [History Last Taken Unknown] simvastatin 40 mg tablet 40 mg PO QHS #90 tablet 12/04/20 [Rx Last Taken Unknown] atenolol 25 mg tablet 12.5 mg PO QDAY #45 tab 12/26/20 [Rx Last Taken Unknown] isosorbide mononitrate 60 mg tablet,extended release 24 hr 60 mg PO DAILY #90 tablet 12/26/20 [Rx Last Taken Unknown] tramadol 50 mg tablet 50 mg PO BID PRN 7 Days #14 tablet 12/26/20 [History Last Taken Unknown] nitroglycerin 0.4 mg sublingual tablet 0.4 mg SL Q5M PRN #25 tablet 05/11/21 [Rx Last Taken Unknown] buprenorphine 1 patch TOPICAL QWEEK 10/21/21 [History Last Taken Unknown] lorazepam [Ativan] 1 mg PO TID PRN #10 tab 10/21/21 [Rx Last Taken Unknown] mirtazapine 15 mg PO DAILY 10/21/21 [History Last Taken Unknown] tamsulosin mg PO DAILY 10/21/21 [History Last Taken Unknown] Allergy/AdvReac Type Severity Reaction Status Date / Time No Known Allergies Allergy Verified 10/21/21 12:39 Family History Father Cancer skin cancer Mother Myocardial infarction Diabetes Surgical History H/O percutaneous transluminal coronary angioplasty (11/13/93) History of colostomy History of cystoscopy History of inguinal hernia repair, bilateral History of left heart catheterization (02/24/02) History of rotator cuff surgery Hx of appendectomy Hx of colectomy Status post trigger finger release Social History (Updated 12/26/20 @ 15:02 by Tito Crane [employer]IC STRUCTURAL ENGINEER, FORENSIC STRUCTURAL ENGINEER-C) Smoking Status: Never smoker alcohol intake: current alcohol intake frequency: a few times a month Alcohol type: hard liquor substance use type: does not use caffeine: Yes Type: coffee Number of servings: 1 ROS ROS ED Constitutional Constitutional ED: Reports systems reviewed and no addt'l complaints, except as documented; Denies body ache(s), change in weight or chills Eyes Eyes: Denies acute decrease in peripheral vision, change in vision, double vision or loss of vision ENT ENT ED: Reports none; Denies ear pain, lip swelling, loss taste/smell, neck pain, otalgia or sore throat Cardiovascular Cardiovascular: Reports none; Denies abdominal pain, chest pain with activity, leg edema, lightheadedness, palpitations, rapid heart rate or syncope Respiratory/Chest Respiratory/Chest: Reports none; Denies change in mental status, dry cough, dyspnea, hemoptysis, shortness of breath at rest or shortness of breath with exertion Gastrointestinal Gastrointestinal: Reports none; Denies abdominal pain, change in stool character, diarrhea, hematemesis, hematochezia, melena, rectal bleeding or vomiting Genitourinary Genitourinary ED: Reports none; Denies abdominal discomfort, anuria, dysuria, genital pain or polyuria Musculoskeletal Musculoskeletal: Reports none; Denies arthralgias, back pain, difficulty walking, extremity pain, muscle weakness or myalgias Integumentary Reports none; Denies abscess or rash Neurologic Neurologic: Reports none; Denies abnormal gait, confusion, focal weakness, frequent falls, headache(s), loss of vision, numbness, paresthesias, radicular pain, vertigo or weakness Psychiatric Psychiatric: Reports systems reviewed and no addt'l complaints, except as documented, none, anxiety, depression and suicidal thoughts; Denies behavioral changes, confusion, difficulty concentrating, hallucinations, suicidal ideation, tactile hallucinations or visual hallucinations Endocrine Endocrinology: Denies none, cold intolerance, excessive sweating, fatigue or heat intolerance Hematologic/Lymphatic Hematologic/Lymphatic: Reports none; Denies anemia, easy bleeding or easy bruising Allergic/Immunologic Allergic/Immunologic ED: Denies as per HPI, none, lip swelling, mouth swelling, throat swelling, tongue swelling or hives EXAM Physical Exam Const Vital Signs: 10/21/21 12:39 Temperature 96.5 F L Temperature Source Oral Pulse Rate 65 Respiratory Rate 17 Blood Pressure 140/86 H Blood Pressure Mean 104 Pulse Ox 98 Oxygen Delivery Method Room Air Positive well nourished and well developed General Appearance ED: well developed and NAD HEENT Reports TM's clear and moist mucous membranes normocephalic and atraumatic; Negative for trauma or tenderness Tympanic Membrane ED: Yes TM's clear Eyes PERRL and EOMs intact bilaterally General Eye ED: Negative for pale conjunctiva or scleral icterus Neck no lymphadenopathy, supple and no JVD General: Negative for tenderness Chest Wall inspection of chest normal and palpation of chest normal Chest: Negative for tenderness Resp normal respiratory effort and clear to auscultation bilaterally Effort and Inspection: Negative for respiratory distress or pain with movement Auscultation: Negative for rhonchi, wheezes or diminished lung sounds Cardio regular rate, regular rhythm, S1 normal heart sound, S2 normal heart sound and no murmurs Peripheral Pulses: pulses 2+ throughout GI normal to inspection, nondistended, normoactive bowel sounds, soft to palpation, non-tender, non-distended and no masses Back/Spine no CVA tenderness and no thoracic nor lumbar tenderness Extremity normal to inspection General Extremety ED: Negative for edema General Extremity: Negative for edema Neuro oriented x3, CN's II-XII intact bilaterally, no sensory deficits noted and gait normal Sensorium / Orientation: awake, alert, oriented to person, oriented to place and oriented to time Motor Exam: strength 5/5 throughout and strength abnormal Psych mental status grossly normal Skin no rashes or lesions noted and no wounds MDM MDM MDM Narrative Medical decision making narrative: Patient received Ativan 1 mg IM. Patient states that he felt markedly improved and his mood changed significantly since the Ativan. Patient's lab work-up was unremarkable and toxicology screen was negative. I will have crisis evaluate patient. I feel patient can likely contract for safety. I would like him to have at the very least outpatient follow-up and be advised of resources. I will write patient a prescription for Ativan as needed for anxiety. Lab Data Labs: Laboratory Results - last 24 hr 10/21/21 10/21/21 10/21/21 13:25 13:25 13:25 WBC 8.3 RBC 4.29 L Hgb 13.5 Hct 40.7 MCV 94.9 H MCH 31.5 MCHC 33.2 RDW Std Deviation 44.7 H RDW Coeff of Kathryn 12.9 Plt Count 184 MPV 8.8 Immature Gran % (Auto) 0.200 Neut % (Auto) 79.0 H Lymph % (Auto) 12.1 L [place] % (Auto) 7.3 Eos % (Auto) 1.0 Baso % (Auto) 0.4 Absolute Neuts (auto) 6.6 Absolute Lymphs (auto) 1.01 Nucleated RBC % 0 Sodium 138 Potassium 4.4 Chloride 106 Carbon Dioxide 27.0 Anion Gap 5 BUN 17 Creatinine 0.93 Estim Creat Clear Calc 57.26 Est GFR (MDRD) Af Amer 100 Est GFR (MDRD) Non-Af 83 BUN/Creatinine Ratio 18.3 Glucose 99 Calcium 9.6 Urine Opiates Screen Urine Methadone Screen Ur Barbiturates Screen Ur Phencyclidine Scrn Ur Amphetamines Screen U Methamphetamin-MDMA U Benzodiazepines Scrn Urine Cocaine Screen U Cannabinoids Screen Ur Drug Screen Comment Ethyl Alcohol < 3.0 10/21/21 13:25 WBC RBC Hgb Hct MCV MCH MCHC RDW Std Deviation RDW Coeff of Kathryn Plt Count MPV Immature Gran % (Auto) Neut % (Auto) Lymph % (Auto) [place] % (Auto) Eos % (Auto) Baso % (Auto) Absolute Neuts (auto) Absolute Lymphs (auto) Nucleated RBC % Sodium Potassium Chloride Carbon Dioxide Anion Gap BUN Creatinine Estim Creat Clear Calc Est GFR (MDRD) Af Amer Est GFR (MDRD) Non-Af BUN/Creatinine Ratio Glucose Calcium Urine Opiates Screen NEGATIVE Urine Methadone Screen NEGATIVE Ur Barbiturates Screen NEGATIVE Ur Phencyclidine Scrn NEGATIVE Ur Amphetamines Screen NEGATIVE U Methamphetamin-MDMA NEGATIVE U Benzodiazepines Scrn NEGATIVE Urine Cocaine Screen NEGATIVE U Cannabinoids Screen NEGATIVE Ur Drug Screen Comment Ethyl Alcohol Discharge Plan Triage Chief Complaint: Suicidal ED Provider: Darleen Moulton Dx/Rx/DC Orders Clinical Impression: Anxiety, Depression Instructions: ED Anxiety Reaction, ED Depression Prescriptions: New lorazepam [Ativan] 1 mg tablet 1 mg PO TID PRN (Reason: anxiety) Qty: 10 RF: 0 No Action finasteride [Proscar] 5 mg tablet 5 mg PO QDAY RF: 0 aspirin [Adult Low Dose Aspirin] 81 mg tablet,delayed release (DR/EC) 81 mg PO DAILY RF: 0 gabapentin 300 mg capsule 1 capsule PO BID 30 Days Qty: 60 RF: 0 tramadol 50 mg tablet 50 mg PO BID PRN7 Days Qty: 14 RF: 0 oxybutynin chloride 10 mg tablet extended release 24hr 10 mg PO DAILY RF: 0 atenolol 25 mg tablet 12.5 mg PO QDAY Qty: 45 RF: 3 isosorbide mononitrate 60 mg tablet extended release 24 hr 60 mg PO DAILY Qty: 90 RF: 3 tamsulosin 0.4 mg capsule PO DAILY RF: 0 mirtazapine 15 mg tablet 15 mg PO DAILY RF: 0 buprenorphine 7.5 mcg/hour patch weekly 1 patch topical QWEEK RF: 0 simvastatin 40 mg tablet 40 mg PO QHS Qty: 90 RF: 3 nitroglycerin 0.4 mg tablet, sublingual 0.4 mg SL Q5M PRN (Reason: Chest Pain) Qty: 25 RF: 2 Primary Care Provider: Vishal Antonio Referrals: Vishal Antonio MD [Primary Care Provider] - Disposition Disposition: Home, Self Care
[2021-10-21 13:33] LABS: Absolute Lymphocyte Count 1.01 X10^3/uL (0.83-4.51); Absolute Neutrophil Count 6.6 X10^3/uL (2.0-7.7); Basophil# 0.03 X10^3/uL; Basophil% 0.4 % (0-1); Eosinophil# 0.08 X10^3/uL; Hematocrit 40.7 % (40-54); Hemoglobin 13.5 g/dL (13.0-16.5); Lymphocyte # 1.01 X10^3/ul (0.83-4.51); Lymphocyte % 12.1 % (19-41); Mean Corp Hgb Conc 33.2 g/dL (32-36); Mean Corpuscular Hgb 31.5 pg (27.0-32.0); Mean Corpuscular Volume 94.9 fL (80-94); Mean Platelet Vol. 8.8 fl (6.2-12.0); Monocyte# 0.61 X10^3/uL; Monocyte% 7.3 % (0-10); NRBC Flagged by Analyzer 0 % (0-5); Neutrophil # 6.58 X10^3/uL (2.7-7.7); Platelet Count 184 K/mm3 (150-450); RBC Distribution Width CV 12.9 % (11.6-14.6); RBC Distribution Width SD 44.7 fl (35.1-43.9); Red Blood Count 4.29 M/mm3 (4.6-6.2); White Blood Count 8.3 K/mm3 (4.4-11.0)
[2021-10-21] MEDS: LORazepam 2 MG/ML Syringe 1 MG IM (13:35)
[2021-10-21 13:45] LABS: Amphetamine Urine VISTA NEGATIVE (<1000 ng/mL); Barbiturate Urine VISTA NEGATIVE (< 200 ng/mL); Benzodiazepine Urine VISTA NEGATIVE (< 200 ng/mL); Cocaine Urine VISTA NEGATIVE (< 300 ng/mL); Ecstacy Urine VISTA NEGATIVE (< 500 ng/mL); Methadone Urine VISTA NEGATIVE (< 300 ng/mL); PCP Urine VISTA NEGATIVE (< 25 ng/mL); THC Urine VISTA NEGATIVE (< 50 ng/mL); Vista UDS pH Range 6
[2021-10-21 13:46] LABS: Alcohol, Blood (Medical)-Serum < 3.0 mg/dL
[2021-10-21 13:48] LABS: Anion Gap 5 (5-15); BUN 17 mg/dL (7-18); BUN/Creat Ratio 18.3 RATIO (10-20); Calcium,Total 9.6 mg/dL (8.5-10.1); Chloride 106 mmol/L (98-107); Creatinine, Serum 0.93 mg/dL (0.70-1.30); EST Glomerular Filtration Rate 83 mL/min (>60); Est Glom Filt Rate - Afr Amer 100 mL/min (>60); Estimated Creatinine Clearance 57.26 ml/min; Glucose 99 mg/dL (74-106); Potassium 4.4 mmol/L (3.5-5.1); Sodium Level 138 mmol/L (136-145)
--- NOTE | 2021-10-21 14:51 | NURSING ---
[facility], CRISIS, CALLED. THEY WILL GET TO PATIENT AFTER 1600
[2021-10-21 15:48] VITALS: BP 145/82; PULSE 79; RESP 17; O2SAT 96
--- NOTE | 2021-10-21 16:17 | NURSING ---
CRISIS TALKING ON PHONE TO PATIENT
[2021-10-21 17:06] VITALS: BP 143/69; PULSE 82; RESP 16; O2SAT 96
== END 2021-10-21 17:08 | disposition home or self-care (01) ==
PROVIDERS: Emergency Provider Emergency Medicine; PCP Family Medicine; Visit Provider Emergency Medicine
DX: F32.A Depression, unspecified (principal); F41.9 Anxiety disorder, unspecified; R45.851 Suicidal ideations; I25.10 Atherosclerotic heart disease of native coronary artery without angina pectoris; I25.2 Old myocardial infarction; I10 Essential (primary) hypertension; E78.5 Hyperlipidemia, unspecified; Z79.899 Other long term (current) drug therapy
CPT/HCPCS: 80048; 80307; 82077; 85025; 96372; 99283

== ENCOUNTER → 2022-01-22 | Outpatient (CLI) | payer MEDICARE, BC, SELFPAY ==
--- NOTE | 2022-01-22 06:52 | ECHOD_ITS ---
Reason For Study: CAD/ASHD Procedure This was a 2D Doppler, Color Flow transthoracic echocardiogram. Exam performed in department. Left Ventricle Normal LV size. Left ventricular systolic function is normal. The estimated ejection fraction is 60 %. Stage 2 diastolic dysfunction. No regional wall motion abnormalities noted. Right Ventricle Normal RV size. Normal systolic function. Atria The left atrium is mildly enlarged. Normal right atrium. Mitral Valve Normal mitral valve. Tricuspid Valve Normal tricuspid valve. Mild (1+) tricuspid valve insufficiency. Pulmonary artery systolic pressure is 35 mmHg. Aortic Valve Trisinus/trileaflet aortic valve. Mild focal aortic valve calcification. Trivial aortic valve insufficiency. Pulmonic Valve Normal pulmonic valve. Great Vessels Normal aortic root. The pulmonary artery is normal size. Normal inferior vena cava. Pericardium/Pleural No pericardial effusion. MMode/2D Measurements & Calculations LVIDd: 3.9 cm IVSd: 1.1 cm Ao root diam: 3.2 cm LVIDs: 2.6 cm LVPWd: 1.1 cm RVDd: 3.7 cm FS: 33.0 % LAV(MOD-bp): 64.8 ml LVAd ap4: 33.3 cm2 SV(MOD-sp4): 75.7 ml LAV(MOD-bp) Indexed: 34.3 ml/m2 LVLd ap4: 8.6 cm LAV(MOD-sp2): 61.6 ml EDV(MOD-sp4): 105.0 ml LAV(MOD-sp4): 64.3 ml EDV(sp4-el): 109.8 ml LVAs ap4: 15.4 cm2 LVLs ap4: 6.9 cm ESV(MOD-sp4): 29.4 ml ESV(sp4-el): 29.3 ml EF(MOD-sp4): 72.0 % EF(sp4-el): 73.3 % SV(sp4-el): 80.5 ml LA A4 area: 22.4 cm2 LA dimension(2D): 3.2 cm RA A4 area: 14.9 cm2 Time Measurements MV dec time: 0.20 sec Doppler Measurements & Calculations MV E max joo: 104.5 cm/sec Lat Peak E' Joo: 12.5 cm/sec Med Peak E' Joo: 9.8 cm/sec MV A max joo: 69.5 cm/sec E/E' lat: 8.4 E/E' med: 10.7 MV E/A: 1.5 Ao V2 max: 171.6 cm/sec AI max joo: 408.7 cm/sec LV V1 max: 134.8 cm/sec Ao max P.8 mmHg AI max P.8 mmHg LV V1 max P.3 mmHg AI dec slope: 207.5 cm/sec2 AI P1/2t: 576.9 msec PA V2 max: 121.1 cm/sec TR max joo: 281.9 cm/sec TR max P.8 mmHg ECHO/Echo Complete Interpretation Summary Normal LV size. Left ventricular systolic function is normal. The estimated ejection fraction is 60 %. Stage 2 diastolic dysfunction. Trivial aortic valve insufficiency. Pulmonary artery systolic pressure is 35 mmHg. Ordering Physician: Earl Huntley Referring Physician: NISHA JONES Performed By: Eula Mcdonald RDCS
--- NOTE | 2022-01-22 13:01 | STRESSREP ---
Stress Test Report Pharmacologic myocardial perfusion stress test. 81-year-old man with a history of coronary artery disease. Stress protocol: Resting KG demonstrates sinus bradycardia with a rate of 59 bpm normal intervals are noted resting blood pressure is 122/58 mmHg. 0.4 mg of regadenoson was infused per usual protocol followed by Intravenous saline flush injection continuous EKG monitoring was performed. The maximum heart rate attained was noted to be 82 bpm which was 59% of max impact at heart rate the maximum workload was 1 metabolic equivalent. At rest there were no ST or T wave changes noted to suggest abnormal flow reserve and at peak infusion nonspecific ST changes were noted. No clinical angina was noted. Myocardial perfusion protocol. 11.6 mCi of technetium 99m sestamibi was injected at rest. 0.4 mg of regadenoson was infused per usual protocol. At peak infusion 34.3 mCi of technetium 99m sestamibi was injected stress images were obtained stress and rest images were reconstructed and compared in the short axis vertical long and horizontal long axis. Gated images were also obtained to Perfusion SPECT analysis: Review of the stress images demonstrate normal uptake of tracer noted in all areas of the myocardium. The resting images similarly demonstrate normal uptake of tracer noted in all areas of the myocardium. No areas of reversibility are noted to suggest ischemia and no previous infarct is noted. Gated SPECT analysis: The gated ejection fraction is 64%. Conclusion: Normal pharmacologic myocardial perfusion stress test. Preserved ejection fraction.
== END | disposition home or self-care (01) ==
LOC: CVS 06:49
PROVIDERS: PCP Family Medicine; Referring Provider Internal Medicine Cardiovascular Disease; Visit Provider Internal Medicine Cardiovascular Disease
DX: I25.10 Atherosclerotic heart disease of native coronary artery without angina pectoris (principal); Z98.61 Coronary angioplasty status
CPT/HCPCS: 78452; 93017; 93306; A9500; A4216; J2785

== ENCOUNTER 2022-02-02 00:15 | Emergency (ER) | payer MEDICARE, BC, SELFPAY ==
[2022-02-02 00:17] VITALS: BP 178/65; PULSE 71; RESP 16; TEMP 36.5; O2SAT 98; BMI 27.6
--- NOTE | 2022-02-02 01:10 | EX.ED.UPPERE ---
HPI History of Present Illness Chief Complaint: Upper Extremity Injury Informant: patient Occured/Mechanism Mechanism/Context: Yes injury Onset/Context/Timing Onset: Today and Hours Context: Sudden Onset Timing: Continuous Current Severity: Mild Maximum Severity: Mild Associated Symptoms Associated Symptoms: Negative for Parasthesia, Weakness and Loss of Funtion Narrative Narrative: 81-year-old male history of prior DC and CAD. Says is a chronic balance issue. He got up out of bed and I lost his balance fell onto the dresser causing a laceration to his left elbow. Denies any other complaints. Did not hit his head. On no blood thinners besides aspirin. Able to move his elbow fine. He is left-hand dominant. Unsure of his last Tetanus Immunization: Unknown Prior similar symptoms: Yes Recent Illness/Hospitalization: No PFSH PFSH Medical History Adenocarcinoma Alcohol use Ambulates with cane Anxiety Arthritis Atherosclerosis of coronary artery of [place] heart without angina pectoris Back pain BPH (benign prostatic hyperplasia) Bright's disease Cancer Cardiology follow-up encounter Chewing tobacco nicotine dependence Colon cancer Depression Easy bruising Essential (primary) hypertension Gait instability High cholesterol History of echocardiogram History of heart attack History of pain when walking History of prostate cancer History of radiation therapy History of stress test HLD (hyperlipidemia) Old inferior wall myocardial infarction Wears dentures Wears glasses Wears hearing aid Home Medications finasteride 5 mg tablet 5 mg PO QDAY 01/27/18 [History Last Taken Unknown] aspirin 81 mg tablet,delayed release 81 mg PO DAILY 07/30/18 [History Last Taken 01/13/22] gabapentin 300 mg capsule 1 capsule PO BID 30 Days #60 cap 02/09/19 [History Last Taken Unknown] oxybutynin chloride 10 mg tablet,extended release 24 hr 10 mg PO DAILY tablet 02/10/20 [History Last Taken Unknown] simvastatin 40 mg tablet 40 mg PO QHS #90 tablet 12/04/20 [Rx Last Taken Unknown] atenolol 25 mg tablet 12.5 mg PO QDAY #45 tab 12/26/20 [Rx Last Taken Unknown] tramadol 50 mg tablet 50 mg PO BID PRN 7 Days #14 tablet 12/26/20 [History Last Taken Unknown] nitroglycerin 0.4 mg sublingual tablet 0.4 mg SL Q5M PRN #25 tablet 05/11/21 [Rx Last Taken Unknown] buprenorphine 1 patch TOPICAL FR 10/21/21 [History Last Taken Unknown] lorazepam [Ativan] 1 mg PO TID PRN #10 tab 10/21/21 [Rx Last Taken Unknown] mirtazapine 15 mg PO QHS 10/21/21 [History Last Taken Unknown] tamsulosin 0.4 mg PO DAILY 10/21/21 [History Last Taken Unknown] isosorbide mononitrate 60 mg tablet,extended release 24 hr 60 mg PO DAILY #90 tablet 01/28/22 [Rx Last Taken Unknown] Allergy/AdvReac Type Severity Reaction Status Date / Time No Known Allergies Allergy Verified 02/02/22 00:19 Family History Father Cancer skin cancer Mother Myocardial infarction Diabetes Surgical History H/O percutaneous transluminal coronary angioplasty (11/13/93) History of colostomy History of cystoscopy History of inguinal hernia repair, bilateral History of left heart catheterization (02/24/02) History of rotator cuff surgery Hx of appendectomy Hx of colectomy Status post trigger finger release Social History Smoking Status: Never smoker alcohol intake: current alcohol intake frequency: a few times a month Alcohol type: hard liquor substance use type: does not use caffeine: Yes Type: coffee Number of servings: 1 ROS ROS ED ROS Narrative Denies recent illness. Review of Systems ROS Unobtainable: Denies due to encephalopathy Constitutional Constitutional ED: Denies fever(s) Eyes Eyes: Denies change in vision ENT ENT ED: Denies ear pain Cardiovascular Cardiovascular: Denies chest pain Respiratory/Chest Respiratory/Chest: Denies cough or dyspnea Gastrointestinal Gastrointestinal: Denies abdominal pain Genitourinary Genitourinary ED: Denies dysuria Musculoskeletal Musculoskeletal: Denies myalgias Integumentary Denies rash Neurologic Neurologic: Denies headache(s) Psychiatric Psychiatric: Denies depression Endocrine Endocrinology: Denies polyuria Hematologic/Lymphatic Hematologic/Lymphatic: Denies easy bruising Allergic/Immunologic Allergic/Immunologic ED: Denies urticaria EXAM Physical Exam Narrative Exam Narrative: 7-year-old male no acute distress. Vital signs stable afebrile. Pulse ox 98% on room air no hypoxia. H EENT exam unremarkable atraumatic. No facial droop. No trauma. No tenderness. C-spine nontender. Lungs are clear. Heart regular rate and rhythm rate about 70 no murmur. Chest wall nontender. Abdomen soft nontender. Back and spine nontender. Pelvic girdle intact. Moving all 4 extremities. Nontender. No deformity. Normal range of motion. 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 Dorsi plantarflexion intact. His left elbow has about a 6 inch laceration involving the skin and subcu tissue that will need to be repaired. There is also skin tears around it. However he has normal range of motion to his left shoulder elbow and wrist. He has full flexion-extension of the elbow. Supination and pronation. There is no bony tenderness. Const Vital Signs: 02/02/22 00:17 Temperature 97.7 F L Temperature Source Oral Pulse Rate 71 Respiratory Rate 16 Blood Pressure 178/65 H Blood Pressure Mean 102 Pulse Ox 98 Oxygen Delivery Method Room Air Positive well nourished and well developed; Negative for obese, cachectic, contractures or unkempt General Appearance ED: well developed and NAD; Negative for unkempt, cachectic, contractures, cyanotic or diaphoretic Nutritional Appearance: Negative for cachectic or obese HEENT Reports moist mucous membranes normocephalic and atraumatic; Negative for trauma or tenderness Eyes PERRL and EOMs intact bilaterally Neck full ROM and supple General: Negative for tenderness Chest Wall inspection of chest normal and palpation of chest normal Resp normal respiratory effort and clear to auscultation bilaterally Effort and Inspection: Negative for pain with movement Auscultation: Negative for rales, rhonchi or wheezes Cardio regular rate, regular rhythm, S1 normal heart sound, S2 normal heart sound and no murmurs GI non-tender, non-distended and no masses Auscultation: normoactive bowel sounds Palpation: soft; Negative for tender, guarding or rebound tenderness present Back/Spine no CVA tenderness General Back: Negative for CVA tenderness Cervical Spine: Negative for cervical spine tenderness Thoracic Spine / Upper Back: Negative for thoracic spinal tenderness Lumbar Spine / Lower Back: Negative for lumbar spinal tenderness Extremity normal to inspection and full ROM Extremity Narrative: Left elbow 6 inch laceration. Also skin tears. However full range of motion. No bony deformity. No significant tenderness. General Extremety ED: Negative for edema General Extremity: Negative for edema Neuro oriented x3 and moves all extremities Sensorium / Orientation: alert, oriented to person, oriented to place and oriented to time Motor Exam: strength 5/5 throughout Psych mental status grossly normal Appearance: Negative for unkempt Mood & Affect: Negative for depressed or tearful Skin Lesions: no lesions Rashes: no rashes Trauma: laceration; Negative for no lacerations or abrasions MDM MDM MDM Narrative Medical decision making narrative: 81-year-old fell onto laceration left elbow then attempt to repair. Tetanus will be updated. Patient doing well on repeat exam at 3 AM. He had full range of motion to his left elbow pre and post suturing. Left elbow 5 to 6 inch laceration repair. Cleaned with Shur-Clens. Washed with saline. Explored. Local anesthetized with lidocaine. Closed using eight 4-0 Ethilon simple interrupted sutures. Proper hemostasis wound closure is obtained. Patient instructed on wound care and suture removal in 10 to 14 days. Procedures Lacerations Left elbow laceration: Length: 5 in Depth: Sub Q Shape: Linear Prep: Shure-Clens Laceration repair: Irrigated, Lidocaine, Local and Skin sutures Number of Sutures/[place]: 8 Suture Information: Ethilon and 4-0 Comment: Left elbow laceration. 5 to 6 inches. Cleaned with Shur-Clens. Washed with saline. Locally anesthetized lidocaine. Explored. Irrigated. Closed using 8 simple interrupted 4-0 Ethilon sutures. Proper hemostasis wound closure obtained. Discharge Plan Triage Chief Complaint: Upper Extremity Injury ED Provider: Leo Todd Dx/Rx/DC Orders Clinical Impression: Fall, Laceration of left elbow Instructions: ED Laceration: All Closures Prescriptions: No Action finasteride [Proscar] 5 mg tablet 5 mg PO QDAY RF: 0 aspirin [Adult Low Dose Aspirin] 81 mg tablet,delayed release (DR/EC) 81 mg PO DAILY RF: 0 gabapentin 300 mg capsule 1 capsule PO BID 30 Days Qty: 60 RF: 0 tramadol 50 mg tablet 50 mg PO BID PRN (Reason: Pain) 7 Days Qty: 14 RF: 0 oxybutynin chloride 10 mg tablet extended release 24hr 10 mg PO DAILY RF: 0 atenolol 25 mg tablet 12.5 mg PO QDAY Qty: 45 RF: 3 tamsulosin 0.4 mg capsule 0.4 mg PO DAILY RF: 0 mirtazapine 15 mg tablet 15 mg PO QHS RF: 0 buprenorphine 7.5 mcg/hour patch weekly 1 patch topical FR RF: 0 lorazepam [Ativan] 1 mg tablet 1 mg PO TID PRN (Reason: anxiety) Qty: 10 RF: 0 simvastatin 40 mg tablet 40 mg PO QHS Qty: 90 RF: 3 nitroglycerin 0.4 mg tablet, sublingual 0.4 mg SL Q5M PRN (Reason: Chest Pain) Qty: 25 RF: 2 isosorbide mononitrate 60 mg tablet extended release 24 hr 60 mg PO DAILY Qty: 90 RF: 3 Primary Care Provider: Vishal Antonio Referrals: Vishal Antonio MD [Primary Care Provider] - 10-14 Days suture removal Activity Restrictions/Additional Instructions: Gently clean wound daily with soap and water or peroxide and water. Apply antibiotic ointment daily. Watch for any signs of infection such as redness, pus, streaks or fever if seen return. Keep this dry and clean. You can shower but dried off well when you are done. I do not want it soaking in bath water. Stitches come out no sooner than 10 and no longer than 14 days. Disposition Disposition: Home, Self Care
[2022-02-02] MEDS: Diphth,Pertuss(Acell),Tet Vac 0.5 ML Vial IM (01:16)
[2022-02-02] MEDS: Lidocaine/Epi/Tetracaine 50 ML 1 APPLIC TOPICAL (01:17)
[2022-02-02] MEDS: Lidocaine 1% (20 ml mdv) 20 ML Vial INFILT (01:17)
[2022-02-02 03:18] VITALS: PULSE 74; RESP 17; O2SAT 97
== END 2022-02-02 03:19 | disposition home or self-care (01) ==
PROVIDERS: Emergency Provider Emergency Medicine; PCP Family Medicine; Visit Provider Emergency Medicine
DX: S51.012A Laceration without foreign body of left elbow, initial encounter (principal); W01.190A Fall on same level from slipping, tripping and stumbling with subsequent striking against furniture, initial encounter; Y93.89 Activity, other specified; Y99.8 Other external cause status; I25.10 Atherosclerotic heart disease of native coronary artery without angina pectoris; I25.2 Old myocardial infarction; I10 Essential (primary) hypertension; E78.00 Pure hypercholesterolemia, unspecified; M19.90 Unspecified osteoarthritis, unspecified site; F41.9 Anxiety disorder, unspecified; Z79.82 Long term (current) use of aspirin; Z79.899 Other long term (current) drug therapy
CPT/HCPCS: 12005; 90715; 99283

== ENCOUNTER 2022-02-07 13:46 | Outpatient (CLI) | payer MEDICARE, BC, SELFPAY ==
--- NOTE | 2022-01-07 08:31 | EKG12_ITS ---
Test Reason : PRE-OP Blood Pressure : / mmHG Vent. Rate : 061 BPM Atrial Rate : 061 BPM P-R Int : 214 ms QRS Dur : 082 ms QT Int : 408 ms P-R-T Axes : 030 -42 021 degrees QTc Int : 410 ms Sinus rhythm with 1st degree A-V block Left axis deviation Abnormal ECG Confirmed by ERIC SU, HOWIE ([id number]), health editor MEGHAN CUNHA ([id number]) on 01/08/2022 8:26:43 AM Referred By: Vishal Small Confirmed By:HOWIE REYES MD
--- NOTE | 2022-01-28 11:20 | RAD_ITS ---
STUDY: X-RAY CHEST REASON FOR EXAM: Male, 81 years old. PREOP TECHNIQUE: XR Chest 2 Views COMPARISON: None FINDINGS: There is no demonstrated pleural abnormality. There is a right Port-A-Cath and/or mediport in place. The tip is in the superior vena cava. Elevated bilateral humeral head with eburnation of the acromion suggest a chronic rotator cuff tear. Left humeral anchor. Normal size heart. Normal mediastinum and [place]ia [place]. Normal visualized pulmonary arteries. There is atherosclerotic calcification of the aortic arch with tortuosity. There are diffuse degenerative changes of the visualized thoracic spine. There is degenerative osteoarthritis of the bilateral shoulders. There is no demonstrated abnormality of the visualized soft tissue structures of the upper abdomen. RAD/Chest PA and Lateral IMPRESSION: There are no acute findings. Electronically Signed: Daryl Lucas MD at 17:05 EDT ,
[2022-01-28 11:28] LABS: Absolute Lymphocyte Count 1.43 X10^3/uL (0.83-4.51); Absolute Neutrophil Count 5.9 X10^3/uL (2.0-7.7); Basophil# 0.03 X10^3/uL; Basophil% 0.4 % (0-1); Eosinophil# 0.13 X10^3/uL; Eosinophils% 1.6 % (0-5); Hematocrit 41.7 % (40-54); Hemoglobin 13.4 g/dL (13.0-16.5); Lymphocyte # 1.43 X10^3/ul (0.83-4.51); Lymphocyte % 17.5 % (19-41); Mean Corp Hgb Conc 32.1 g/dL (32-36); Mean Corpuscular Hgb 30.3 pg (27.0-32.0); Mean Corpuscular Volume 94.3 fL (80-94); Mean Platelet Vol. 8.9 fl (6.2-12.0); Monocyte# 0.69 X10^3/uL; Monocyte% 8.4 % (0-10); NRBC Flagged by Analyzer 0 % (0-5); Neutrophil # 5.87 X10^3/uL (2.7-7.7); Neutrophil % 71.7 % (47-70); Platelet Count 182 K/mm3 (150-450); RBC Distribution Width CV 13.5 % (11.6-14.6); RBC Distribution Width SD 47.3 fl (35.1-43.9); Red Blood Count 4.42 M/mm3 (4.6-6.2); White Blood Count 8.2 K/mm3 (4.4-11.0)
[2022-01-28 11:49] LABS: Anion Gap 8 (5-15); BUN 18 mg/dL (7-18); BUN/Creat Ratio 16.2 RATIO (10-20); Calcium,Total 9.1 mg/dL (8.5-10.1); Chloride 108 mmol/L (98-107); Creatinine, Serum 1.11 mg/dL (0.70-1.30); EST Glomerular Filtration Rate 67 mL/min (>60); Est Glom Filt Rate - Afr Amer 81 mL/min (>60); Glucose 103 mg/dL (74-106); Potassium 4.6 mmol/L (3.5-5.1); Sodium Level 142 mmol/L (136-145)
[2022-01-28 11:55] LABS: International Normalized Ratio 1.2; Partial Thromboplast Time 24.1 Seconds (24.1-36.2); Prothrombin Time (Protime)PT. 15.1 SECONDS (11.7-14.9)
[2022-01-28 11:57] LABS: AST(SGOT) 17 U/L (15-37); Alanine Aminotransfer ALT/SGPT 29 U/L (16-61); Albumin, Serum 3.7 g/dL (3.2-5.0); Alkaline Phosphatase 83 U/L (45-117); Bilirubin, Direct 0.12 mg/dL (0.00-0.30); Globulin 3.1 g/dL (2.2-4.2); Protein, Total 6.8 g/dL (6.4-8.2)
== END 2022-02-07 23:59 | disposition home or self-care (01) ==
LOC: PAT 02-27 13:46
PROVIDERS: Anesthesiology; PCP Family Medicine; Referring Provider Orthopaedic Surgery; Visit Provider Orthopaedic Surgery
DX: Z01.812 Encounter for preprocedural laboratory examination (principal)
CPT/HCPCS: 36415; 71046; 80048; 80076; 85025; 85610; 85730; 93005

== ENCOUNTER 2022-07-15 12:55 | Emergency (ER) | payer MEDICARE, BC, SELFPAY ==
[2022-07-15 12:56] VITALS: BP 146/85; PULSE 102; RESP 18; TEMP 36.6; O2SAT 98; BMI 25.7
--- NOTE | 2022-07-15 13:58 | CT_ITS ---
STUDY: CT CERVICAL SPINE WITHOUT CONTRAST REASON FOR EXAM: Male, 82 years old. Polytrauma. History of prostate cancer. RADIATION DOSAGE (If Supplied By Facility): CTDIvol = ( 25.93 ) mGy, DLP = ( 542.31 ) mGycm TECHNIQUE: High resolution transaxial imaging was performed without contrast material. Sagittal and coronal images were reconstructed. Individualized dose optimization techniques were used for this CT. COMPARISON: None FINDINGS: Normal craniovertebral junction. There are degenerative changes of the anterior atlantoaxial articulation. Normal odontoid process. Normal cervical lordosis. Spondylolysis. C2-3: Minimal degree of anterior listhesis of C2 on C3 due to the facet joint osteoarthritis and hypertrophy worse on the right side. Uncovertebral arthrosis. Moderate to marked degree of right neural foraminal stenosis. C3-4: Moderate degree of disc space narrowing. Spondylosis. Uncovertebral arthrosis. Facet joint osteoarthritis and hypertrophy worse on the right side. Bilateral neural foraminal stenosis. C4-5: Facet joint osteoarthritis and hypertrophy. No significant stenosis is seen. C5-6: Mild degree of disc space narrowing. Spondylosis. Facet joint osteoarthritis and hypertrophy worse on the right side. Uncovertebral arthrosis. Mild degree of bilateral neural foraminal stenosis. C6-7: Mild degree of disc space narrowing. Spondylosis. Facet joint osteoarthritis and hypertrophy. C7-T1: Normal endplates. Normal disc height and morphology. Normal central canal and intervertebral neuroforamina. Atherosclerotic calcification of the carotid bifurcations. CT/Spine Cervical without Contras IMPRESSION: Multilevel degenerative changes, as described above. Electronically Signed: Kevon Sorto MD at 15:03 EDT ,
--- NOTE | 2022-07-15 13:58 | CT_ITS ---
STUDY: CT BRAIN WITHOUT CONTRAST REASON FOR EXAM: Male, 82 years old. Head injury due to a fall. History of prostate carcinoma. RADIATION DOSAGE (If Supplied By Facility): CTDIvol = ( 44.99 ) mGy, DLP = ( 812.98 ) mGycm TECHNIQUE: Transaxial CT imaging of the brain was performed without administration of intravenous contrast material. Individualized dose optimization techniques were used for this CT. COMPARISON: No relevant priors. FINDINGS: Normal soft tissue structures. Normal calvarium. There is mild cerebral atrophy with widening of the extra-axial spaces and ventricular dilatation. There are areas of decreased attenuation within the white matter tracts of the supratentorial brain, consistent with microvascular disease changes. Normal basal ganglia and thalami. Normal brainstem. Normal cerebellum. There is no intracranial hemorrhage. There are no findings of an acute ischemic infarction. Atherosclerotic calcification of the cavernous portions of the internal carotid arteries bilaterally. Mucosal thickening of the ethmoid sinuses. CT/Brain/Head without Contrast IMPRESSION: Chronic involutional changes of the brain. Electronically Signed: Kevon Sorto MD at 15:01 EDT ,
--- NOTE | 2022-07-15 14:01 | EDS_ITS ---
HPI HPI - Fall History of Present Illness Chief Complaint: Fall Informant: patient Narrative Narrative: Brought in by EMS from urgent care for evaluation. Mechanical fall at home last evening 10 PM after working out off his recliner turn off the TV. Not clear if he hit his head but there were concerns of that. Abrasion wound to his left upper arm. He is on baby aspirin. Bleeding is controlled. Tetanus unknown. No pain in the bony prominences full range of motion. He went to urgent care for evaluation there are concerns for disorientation therefore EMS was contacted. Here after evaluation alert and orient x3 no acute distress. Tetanus Immunization: Unknown [facility] Medical History Adenocarcinoma Alcohol use Ambulates with cane Anxiety Arthritis Atherosclerosis of coronary artery of [place] heart without angina pectoris Back pain BPH (benign prostatic hyperplasia) Bright's disease Cancer Cardiology follow-up encounter Chewing tobacco nicotine dependence Colon cancer Depression Easy bruising Essential (primary) hypertension Gait instability High cholesterol History of echocardiogram History of heart attack History of pain when walking History of prostate cancer History of radiation therapy History of stress test HLD (hyperlipidemia) Old inferior wall myocardial infarction Wears dentures Wears glasses Wears hearing aid Home Medications finasteride 5 mg tablet (Proscar) 5 mg PO QDAY 01/27/18 [History Last Taken Unknown] aspirin 81 mg tablet,delayed release (Adult Low Dose Aspirin) 81 mg PO DAILY 07/30/18 [History Last Taken 01/13/22] gabapentin 300 mg capsule 1 capsule PO DAILY 30 days #60 caps 02/09/19 [History Last Taken Unknown] nitroglycerin 0.4 mg sublingual tablet 0.4 mg sublingual Q5M PRN Chest Pain #25 tabs 05/11/21 [Rx Last Taken Unknown] buprenorphine 7.5 mcg/hour weekly transdermal patch 1 patch topical FR 10/21/21 [History Last Taken Unknown] lorazepam 1 mg tablet (Ativan) 1 mg PO TID PRN anxiety #10 tabs 10/21/21 [Rx Last Taken Unknown] mirtazapine 15 mg tablet 30 mg PO QHS 10/21/21 [History Last Taken Unknown] tamsulosin 0.4 mg capsule 0.4 mg PO DAILY 10/21/21 [History Last Taken Unknown] atenolol 25 mg tablet 12.5 mg PO QDAY 07/15/22 [History Last Taken Unknown] baclofen 5 mg tablet 5 mg PO DAILY 07/15/22 [History Last Taken Unknown] hydroxyzine HCl 25 mg tablet 25 mg PO TID 07/15/22 [History Last Taken Unknown] isosorbide mononitrate 60 mg tablet,extended release 24 hr 60 mg PO DAILY 07/15/22 [History Last Taken Unknown] solifenacin 10 mg tablet 10 mg PO DAILY 07/15/22 [History Last Taken Unknown] trazodone 50 mg tablet 50 mg PO QHS 07/15/22 [History Last Taken Unknown] Allergy/AdvReac Type Severity Reaction Status Date / Time No Known Allergies Allergy Verified 07/15/22 13:00 Family History Father Cancer skin cancer Mother Myocardial infarction Diabetes Surgical History H/O percutaneous transluminal coronary angioplasty (11/13/93) History of colostomy History of cystoscopy History of inguinal hernia repair, bilateral History of left heart catheterization (02/24/02) History of rotator cuff surgery Hx of appendectomy Hx of colectomy Status post trigger finger release Social History Smoking Status: Never smoker alcohol intake: current alcohol intake frequency: a few times a month Alcohol type: hard liquor substance use type: does not use caffeine: Yes Type: coffee Number of servings: 1 ROS ROS ED Constitutional Constitutional ED: Denies chills, fever(s) or sweats Eyes Eyes: Denies change in vision ENT ENT ED: Denies dysphagia or sore throat Cardiovascular Cardiovascular: Denies chest pain, leg edema, palpitations or racing heartbeat Respiratory/Chest Respiratory/Chest: Denies cough, dyspnea or dyspnea on exertion Gastrointestinal Gastrointestinal: Denies abdominal pain, diarrhea, nausea or vomiting Genitourinary Genitourinary ED: Denies dysuria, hematuria or urinary frequency Musculoskeletal Musculoskeletal: Denies back pain, extremity pain or neck pain Integumentary Reports wounds; Denies rash Neurologic Neurologic: Denies headache(s), paresthesias or weakness EXAM Physical Exam Const Vital Signs: 07/15/22 12:56 07/15/22 13:01 07/15/22 15:00 Temperature 98 F Temperature Source Temporal Pulse Rate 102 H 104 H Respiratory Rate 18 Respiratory Effort Normal Respiratory Depth Normal Respiratory Pattern Normal Blood Pressure 146/85 H 154/83 H Blood Pressure Mean 105 106 Pulse Ox 98 97 Oxygen Delivery Method Room Air Room Air Room Air Positive well nourished and well developed Constitutional Narrative: GCS 15. General Appearance ED: well developed and NAD HEENT Reports TM's normal bilaterally and moist mucous membranes HEENT Narrative: No hemotympanums. No signs of head trauma. normocephalic and atraumatic Eyes PERRL, EOMs intact bilaterally and conjunctivae normal General Eye ED: Yes normal appearance of both eyes Neck no lymphadenopathy and supple General: Negative for tenderness Chest Wall inspection of chest normal and palpation of chest normal Chest: Negative for tenderness Resp normal respiratory effort and normal air movement Effort and Inspection: symmetric chest movement; Negative for respiratory distress Cardio regular rate, regular rhythm and no murmurs Peripheral Pulses: pulses 2+ throughout GI normal to inspection, nondistended, normoactive bowel sounds and non-tender Palpation: Negative for guarding or rebound tenderness present Back/Spine no CVA tenderness and no thoracic nor lumbar tenderness Back/Spine Narrative: No midline step-offs no ecchymosis. Extremity Extremity Narrative: Left upper extremity: Wrist splint for skin avulsion lateral distal arm, there is no active bleeding. Small avulsion of the proximal forearm dry skin. Full range of motion of the elbow without pain. No deformities. Neuro vas intact distally. Right upper extremity: Full range of motion without tenderness. Neuro vas intact distally. Lower extremity: Negative logroll no deformity no pain. Neuro vas intact distally. General Extremety ED: Negative for edema or tenderness General Extremity: Negative for edema Neuro oriented x3, CN's II-XII intact bilaterally and no sensory deficits noted Sensorium / Orientation: awake and alert Skin no rashes or lesions noted and no wounds MDM MDM MDM Narrative Medical decision making narrative: Patient skin tear left upper arm. Tetanus updated in the ED. Wound cleansed and dressed with Xeroform by nursing. A & O x3, no focal deficits there is concerns for confusion at the urgent care. Trauma scans head and neck obtained negative for any acute process. He was ambulated by myself in the room with his cane with no difficulties. He is reassured. He is discharged with outpatient follow-up. All questions were answered. Radiography Diagnostic Testing: Clinical Impression(s) from Imaging Studies Brain CT 07/15/22 13:58 IMPRESSION: Chronic involutional changes of the brain. Electronically Signed: Kevon Sorto MD at 15:01 EDT , Cervical Spine CT 07/15/22 13:58 IMPRESSION: Multilevel degenerative changes, as described above. Electronically Signed: Kevon Sorto MD at 15:03 EDT , Discharge Plan Triage Chief Complaint: Fall ED Provider: Onesimo Painter Dx/Rx/DC Orders Clinical Impression: CHI (closed head injury), Skin tear of left upper extremity, Tetanus toxoid vaccination administered at current visit Instructions: ED Head Injury (Adult), ED Skin Avulsion Prescriptions: No Action finasteride [Proscar] 5 mg tablet 5 mg PO QDAY aspirin [Adult Low Dose Aspirin] 81 mg tablet,delayed release (DR/EC) 81 mg PO DAILY gabapentin 300 mg capsule 1 capsule PO DAILY 30 Days Qty: 60 tamsulosin 0.4 mg capsule 0.4 mg PO DAILY Label Comments: take 1 capsule by mouth at bedtime mirtazapine 15 mg tablet 30 mg PO QHS Label Comments: take 1 tablet by mouth at bedtime buprenorphine 7.5 mcg/hour patch weekly 1 patch topical FR Label Comments: apply 1 patch as directed AND CHANGE EVERY 7 DAYS lorazepam [Ativan] 1 mg tablet 1 mg PO TID PRN (Reason: anxiety) Qty: 10 0RF trazodone 50 mg tablet 50 mg PO QHS Label Comments: take 1 tablet by mouth at bedtime isosorbide mononitrate 60 mg tablet extended release 24 hr 60 mg PO DAILY Label Comments: take 1 tablet by mouth once daily hydroxyzine HCl 25 mg tablet 25 mg PO TID Label Comments: take 1 tablet by mouth three times a day if needed solifenacin 10 mg tablet 10 mg PO DAILY Label Comments: take 1 tablet by mouth once daily baclofen 5 mg tablet 5 mg PO DAILY Label Comments: take 1 tablet by mouth at bedtime atenolol 25 mg tablet 12.5 mg PO QDAY nitroglycerin 0.4 mg tablet, sublingual 0.4 mg SL Q5M PRN (Reason: Chest Pain) Qty: 25 2RF Primary Care Provider: Vishal Antonio Referrals: Vishal Antonio MD [Primary Care Provider] - 1 Week Activity Restrictions/Additional Instructions: [facility], call? tel:[phone] for follow-up in 1 week for wound check. Disposition Disposition: Home, Self Care Discharge Date/Time: 07/15/22 15:43
[2022-07-15] MEDS: Diphth,Pertuss(Acell),Tet Vac 0.5 ML Vial IM (14:13)
[2022-07-15 15:00] VITALS: BP 154/83; PULSE 104; O2SAT 97
== END 2022-07-15 15:43 | disposition home or self-care (01) ==
PROVIDERS: Emergency Provider Emergency Medicine; PCP Family Medicine; Visit Provider Emergency Medicine
DX: S09.90XA Unspecified injury of head, initial encounter (principal); S40.812A Abrasion of left upper arm, initial encounter; W18.30XA Fall on same level, unspecified, initial encounter; Y92.009 Unspecified place in unspecified non-institutional (private) residence as the place of occurrence of the external cause; I10 Essential (primary) hypertension; E78.00 Pure hypercholesterolemia, unspecified; I25.10 Atherosclerotic heart disease of native coronary artery without angina pectoris; I25.2 Old myocardial infarction; F17.220 Nicotine dependence, chewing tobacco, uncomplicated; Z79.82 Long term (current) use of aspirin; Z79.899 Other long term (current) drug therapy; Z23 Encounter for immunization
CPT/HCPCS: 70450; 72125; 90715; 99285

== ENCOUNTER → 2022-07-29 | Outpatient (CLI) | payer MEDICARE, BC, SELFPAY ==
[2022-07-29 16:17] LABS: PSA,Total- Diagnostic 0.25 ng/mL (0.0-4.0)
== END | disposition home or self-care (01) ==
PROVIDERS: PCP Family Medicine; Referring Provider Urology; Visit Provider Urology
DX: C61 Malignant neoplasm of prostate (principal)
CPT/HCPCS: 36415; 84153; 87086

== ENCOUNTER 2022-10-31 18:21 | Emergency (ER) | payer MEDICARE, BC, SELFPAY ==
[2022-10-31 18:22] VITALS: BP 140/54; PULSE 83; RESP 14; TEMP 36.1; O2SAT 96; BMI 26.9
--- NOTE | 2022-10-31 19:32 | CT_ITS ---
STUDY: CT BRAIN WITHOUT CONTRAST REASON FOR EXAM: Male, 82 years old. Fell, laceration to right lower eye. trauma Individualized dose optimization techniques were used for this CT. TECHNIQUE: Transaxial CT imaging of the brain was performed without administration of intravenous contrast material. COMPARISON: 07.15.22 FINDINGS: There are calcifications around the carotid artery. These are noted in the cavernous carotid arteries. Normal calvarium. There is no underlying fracture. Soft tissue swelling of the right anterior maxilla. There is mild cerebral atrophy with widening of the extra-axial spaces and ventricular dilatation. There are areas of decreased attenuation within the white matter tracts of the supratentorial brain, consistent with microvascular disease changes. Normal basal ganglia and thalami. Normal brainstem. There is mild cerebellar atrophy. There is no intracranial hemorrhage. There are no findings of an acute ischemic infarction. Normal visualized paranasal sinuses. ASPECTS Score for Acute Strokes: 06/24 CT/Brain/Head without Contrast IMPRESSION: There is no underlying fracture. Soft tissue swelling of the right anterior maxilla. Chronic involutional changes of the brain. Electronically Signed: Daryl Lucas MD at 20:11 EST ,
--- NOTE | 2022-10-31 19:32 | CT_ITS ---
EXAM: CT SPINE - CERVICAL WITHOUT IV REASON FOR EXAM: Male, 82 years old. NECK PAIN trauma HISTORY: NECK PAIN trauma Individualized dose optimization techniques were used for this CT. TECHNIQUE: Multiplanar images were obtained of the cervical spine. IV contrast was not utilized. COMPARISON: 07.15.22. FINDINGS: The vertebral bodies do maintain their height. The odontoid process is intact. There is grade 1 anterolisthesis of C6 on C7. No pre-vertebral soft tissue swelling is seen. The intravertebral disc height is lost. There are scattered lymph nodes in the neck. There are degenerative changes of the osseous structures. There is bilateral facet arthropathy. There are scattered levels of foraminal stenosis. There are vascular calcifications. CT/Spine Cervical without Contras IMPRESSION: Degenerative changes of the cervical spine. There are no acute findings. Electronically Signed: Daryl Lucas MD at 20:12 EST Reading Location ID and State: [facility] / [place] , Service support ,
--- NOTE | 2022-10-31 20:07 | ED.RN ---
FLOR SERVIN ARRIVED TO ED AND WAS IN PT ROOM. PT FAMILY STATES THAT FLOR HAS BEEN FILING STRAINING ORDERS AGAINST THE PT. FLOR WAS ASKED BY FAMILY AND THIS RN TO LEAVE.
--- NOTE | 2022-10-31 20:26 | ED.VIS.FALL ---
HPI HPI - Fall History of Present Illness Chief Complaint: Fall Narrative Narrative: Patient presents after mechanical fall. He usually uses a walker or at least a cane but did not today and lost his balance felt forward and hit his right infraorbital region and sustained a small laceration. He has no extremity injury or any other pain. He did not lose consciousness. He is not anticoagulated other than aspirin. [facility] Medical History Adenocarcinoma Alcohol use Ambulates with cane Anxiety Arthritis Atherosclerosis of coronary artery of [place] heart without angina pectoris Back pain BPH (benign prostatic hyperplasia) Bright's disease Cancer Cardiology follow-up encounter Chewing tobacco nicotine dependence Colon cancer Depression Easy bruising Essential (primary) hypertension Gait instability High cholesterol History of echocardiogram History of heart attack History of pain when walking History of prostate cancer History of radiation therapy History of stress test HLD (hyperlipidemia) Old inferior wall myocardial infarction Wears dentures Wears glasses Wears hearing aid Home Medications finasteride 5 mg tablet (Proscar) 5 mg PO QDAY 01/27/18 [History Last Taken Unknown] aspirin 81 mg tablet,delayed release (Adult Low Dose Aspirin) 81 mg PO DAILY 07/30/18 [History Last Taken 01/13/22] gabapentin 300 mg capsule 1 capsule PO DAILY 30 days #60 caps 02/09/19 [History Last Taken Unknown] nitroglycerin 0.4 mg sublingual tablet 0.4 mg sublingual Q5M PRN Chest Pain #25 tabs 05/11/21 [Rx Last Taken Unknown] buprenorphine 7.5 mcg/hour weekly transdermal patch 1 patch topical FR 10/21/21 [History Last Taken Unknown] lorazepam 1 mg tablet (Ativan) 1 mg PO TID PRN anxiety #10 tabs 10/21/21 [Rx Last Taken Unknown] mirtazapine 15 mg tablet 30 mg PO QHS 10/21/21 [History Last Taken Unknown] tamsulosin 0.4 mg capsule 0.4 mg PO DAILY 10/21/21 [History Last Taken Unknown] atenolol 25 mg tablet 12.5 mg PO QDAY 07/15/22 [History Last Taken Unknown] baclofen 5 mg tablet 5 mg PO DAILY 07/15/22 [History Last Taken Unknown] hydroxyzine HCl 25 mg tablet 25 mg PO TID 07/15/22 [History Last Taken Unknown] isosorbide mononitrate 60 mg tablet,extended release 24 hr 60 mg PO DAILY 07/15/22 [History Last Taken Unknown] solifenacin 10 mg tablet 10 mg PO DAILY 07/15/22 [History Last Taken Unknown] trazodone 50 mg tablet 50 mg PO QHS 07/15/22 [History Last Taken Unknown] Allergy/AdvReac Type Severity Reaction Status Date / Time No Known Allergies Allergy Verified 10/31/22 18:22 Family History Father Cancer skin cancer Mother Myocardial infarction Diabetes Surgical History H/O percutaneous transluminal coronary angioplasty (11/13/93) History of colostomy History of cystoscopy History of inguinal hernia repair, bilateral History of left heart catheterization (02/24/02) History of rotator cuff surgery Hx of appendectomy Hx of colectomy Status post trigger finger release Social History Smoking Status: Never smoker alcohol intake: current alcohol intake frequency: a few times a month Alcohol type: hard liquor substance use type: does not use caffeine: Yes Type: coffee Number of servings: 1 ROS ROS ED ROS Narrative Social: Noncontributory Medications: Reviewed Past medical history: Reviewed Review of systems General: Head injury as in HPI HEENT: Infraorbital laceration Neck: No neck pain Cardiovascular: Patient denies any chest pain or palpitations Chest wall: No chest wall contusions Respiratory: There is no shortness of breath GI: There is no nausea vomiting diarrhea or abdominal pain, no abdominal wall contusions Skin: No lacerations or abrasions Neurological: Patient has no memory loss, confusion, or any focal weakness Psychiatric: No recent behavioral changes Back: No back pain, no problems with ambulation Musculoskeletal: No extremity injury All other systems are reviewed and normal EXAM Physical Exam Narrative Exam Narrative: Physical exam Vitals reviewed General: Patient appears relatively comfortable in bed. HEENT: Right infraorbital contusion and swelling. There is a 2 cm vertical laceration which is relatively intact and linear. Head: No other head injury Eyes: Extraocular movements intact Neck: No C-spine tenderness with full range of motion Heart: Regular rate normal pulses Chest wall: No chest wall pain Lungs clear lungs bilaterally with normal inspiration and expiration without tachypnea GI: Abdomen is soft and nontender there is no mass no guarding no abdominal wall contusion : Stable pelvis Musculoskeletal: Moves all extremities without any signs of trauma Skin: No abrasions or laceration Neurological: Patient is alert and oriented with no focal deficits Const Vital Signs: 10/31/22 18:22 10/31/22 19:08 Temperature 97 F L Temperature Source Temporal Pulse Rate 83 Respiratory Rate 14 Respiratory Effort Normal Respiratory Depth Normal Respiratory Pattern Normal Blood Pressure 140/54 H Blood Pressure Mean 82 Pulse Ox 96 Oxygen Delivery Method Room Air Room Air MDM MDM Radiography Diagnostic Testing: Clinical Impression(s) from Imaging Studies Brain CT 10/31/22 19:32 IMPRESSION: There is no underlying fracture. Soft tissue swelling of the right anterior maxilla. Chronic involutional changes of the brain. Electronically Signed: Daryl Lucas MD at 20:11 EST , Cervical Spine CT 10/31/22 19:32 IMPRESSION: Degenerative changes of the cervical spine. There are no acute findings. Electronically Signed: Daryl Lucas MD at 20:12 EST , Treatment and Re-Evaluation Narrative: I discussed the patient with family in the room, CT of the head and C-spine are normal. Wound was approximated with Dermabond see procedure note. Patient appears well he is encouraged to use his walker and otherwise I will discharge him in stable condition. Procedures Other Procedures Procedure(s): Facial laceration Verbal consent obtained A 2 cm vertical infraorbital laceration Patient was cleaned with Shur-Clens, I used Dermabond for wound approximation. Wound approximated quite well. Patient tolerated procedure well Discharge Plan Triage Chief Complaint: Fall ED Provider: Sam Lanza Dx/Rx/DC Orders Clinical Impression: Facial laceration, Concussion without loss of consciousness, Fall Instructions: Concussion Dc, ED Fall Prevention Prescriptions: No Action finasteride [Proscar] 5 mg tablet 5 mg PO QDAY aspirin [Adult Low Dose Aspirin] 81 mg tablet,delayed release (DR/EC) 81 mg PO DAILY gabapentin 300 mg capsule 1 capsule PO DAILY 30 Days Qty: 60 tamsulosin 0.4 mg capsule 0.4 mg PO DAILY Label Comments: take 1 capsule by mouth at bedtime mirtazapine 15 mg tablet 30 mg PO QHS Label Comments: take 1 tablet by mouth at bedtime buprenorphine 7.5 mcg/hour patch weekly 1 patch topical FR Label Comments: apply 1 patch as directed AND CHANGE EVERY 7 DAYS lorazepam [Ativan] 1 mg tablet 1 mg PO TID PRN (Reason: anxiety) Qty: 10 0RF trazodone 50 mg tablet 50 mg PO QHS Label Comments: take 1 tablet by mouth at bedtime isosorbide mononitrate 60 mg tablet extended release 24 hr 60 mg PO DAILY Label Comments: take 1 tablet by mouth once daily hydroxyzine HCl 25 mg tablet 25 mg PO TID Label Comments: take 1 tablet by mouth three times a day if needed solifenacin 10 mg tablet 10 mg PO DAILY Label Comments: take 1 tablet by mouth once daily baclofen 5 mg tablet 5 mg PO DAILY Label Comments: take 1 tablet by mouth at bedtime atenolol 25 mg tablet 12.5 mg PO QDAY nitroglycerin 0.4 mg tablet, sublingual 0.4 mg SL Q5M PRN (Reason: Chest Pain) Qty: 25 2RF Primary Care Provider: Vishal Antonio Referrals: Vishal Antonio MD [Primary Care Provider] - 3-5 Days Disposition Disposition: Home, Self Care
[2022-10-31] MEDS: Acetaminophen 500 MG Tablet 1000 MG PO (20:52)
== END 2022-10-31 20:55 | disposition home or self-care (01) ==
PROVIDERS: Emergency Provider Emergency Medicine; PCP Family Medicine; Visit Provider Emergency Medicine
DX: S01.81XA Laceration without foreign body of other part of head, initial encounter (principal); S06.0X0A Concussion without loss of consciousness, initial encounter; I25.10 Atherosclerotic heart disease of native coronary artery without angina pectoris; I25.2 Old myocardial infarction; W19.XXXA Unspecified fall, initial encounter; Z79.82 Long term (current) use of aspirin
CPT/HCPCS: 99281; 70450; 72125; 99283

== ENCOUNTER → 2022-12-12 | Outpatient (CLI) | payer MEDICARE, BC, SELFPAY ==
--- NOTE | 2022-12-12 12:40 | RAD_ITS ---
STUDY: X-RAY - CERVICAL SPINE REASON FOR EXAM: Male, 82 years old. PAIN TECHNIQUE: 6 view(s) of the cervical spine were obtained. COMPARISON: None FINDINGS: Normal anterior atlantoaxial articulation. Normal odontoid process. Normal cervical lordosis. Normal vertebral bodies and mild spurring at the endplates. Normal disc space heights. Normal visualized intervertebral neuroforamina. The soft tissue structures are unremarkable. RAD/Cerv Spine 4 or 5 Views IMPRESSION: Degenerative changes of the visualized cervical spine. Electronically Signed: Caio Dennis DO at 19:20 EDT Reading Location ID and State: [facility] / [place] Tel [phone], Service support ,
== END | disposition home or self-care (01) ==
LOC: RAD 12:36
PROVIDERS: PCP Family Medicine; Visit Provider Anesthesiology Pain Medicine
DX: M50.30 Other cervical disc degeneration, unspecified cervical region (principal)
CPT/HCPCS: 72050

== ENCOUNTER 2023-04-17 09:52 | Inpatient (IN) | payer MEDICARE, BC, SELFPAY ==
[2023-04-17] VITALS (8 sets, daily range): BP systolic 106–149; BP diastolic 59–96; PULSE 80–101; RESP 16–18; TEMP 36.6–37.2; O2SAT 96–98; BMI 28.3; BMI 27.5
--- NOTE | 2023-04-17 10:09 | CT_ITS ---
STUDY: CT BRAIN WITHOUT CONTRAST REASON FOR EXAM: Male, 83 years old. Headache after trauma RADIATION DOSAGE (If Supplied By Facility): CTDIvol = ( 44.99 ) mGy, DLP = ( 846.73 ) mGycm TECHNIQUE: Transaxial CT imaging of the brain was performed without administration of intravenous contrast material. Individualized dose optimization techniques were used for this CT. COMPARISON: 10/31/2022 FINDINGS: Normal soft tissue structures. Normal calvarium. There is mild cerebral atrophy with widening of the extra-axial spaces and ventricular dilatation. There are areas of decreased attenuation within the white matter tracts of the supratentorial brain, consistent with microvascular disease changes. Normal basal ganglia and thalami. Normal brainstem. Normal cerebellum. There is no intracranial hemorrhage. There are no findings of an acute ischemic infarction. Normal visualized paranasal sinuses. CT/Brain/Head without Contrast IMPRESSION: Chronic involutional changes of the brain. No acute hemorrhage Electronically Signed: Giovanni Frost MD at 11:05 EDT ,
--- NOTE | 2023-04-17 10:10 | RAD_ITS ---
STUDY: X-RAY - LEFT ELBOW REASON FOR EXAM: Male, 83 years old. Pain after a fall TECHNIQUE: 3 view(s) of the elbow. COMPARISON: None. FINDINGS: Normal visualized humerus, radius and ulna. There is degenerative arthrosis of the radiocapitellar and ulnotrochlear articulations. Mild nonspecific soft tissue swelling RAD/Elbow min 3 Views IMPRESSION: No demonstrated fracture, there is mild nonspecific soft tissue swelling and a subtle occult fracture could be present. 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
--- NOTE | 2023-04-17 10:11 | RAD_ITS ---
STUDY: X-RAY - LEFT RADIUS AND ULNA REASON FOR EXAM: Male, 83 years old. Injury/Pain TECHNIQUE: 2 view(s) of the forearm. COMPARISON: None. FINDINGS: On the lateral view there is a step-off of the ulnar styloid suggesting a nondisplaced fracture is present. There is associated soft tissue swelling. No demonstrated fracture in the radius. 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 Bones are demineralized. RAD/Forearm 2 Views IMPRESSION: Acute nondisplaced ulnar styloid fracture suspected with soft tissue swelling this is seen only on the lateral view Osteopenia Arthrosis Electronically Signed: Giovanni Frost MD at 11:13 EDT ,
--- NOTE | 2023-04-17 10:12 | ED.VIS.FALL ---
HPI HPI - Fall History of Present Illness Chief Complaint: Fall Informant: patient Narrative Narrative: Patient is an 83-year-old male with history of colon cancer and prostate cancer status postresection, radiation and chemotherapy as well as coronary artery disease, hypertension hyperlipidemia presenting with left upper extremity swelling and pain as well as frequent falls. Patient states he has chronic gait instability/balance issues. He has a cane and a walker at home however he does not use them because he states I have a lot of grab bars in handholds. He does live home alone. States he has had multiple falls over the past week and most recently this morning. He is having increasing pain, redness and swelling to his left upper extremity most notably around the elbow. He also feels that his left leg is mildly swollen. He has had some mild chest congestion but denies any shortness of breath. States this week when he wakes up he feels congested. Denies any fever but does state he has been sweating more. Denies any chest pain. Denies any nausea or vomiting. States he has a pouch but denies any changes bowel movements. The falls all appear to be associated with his balance issues. He does not think he has hit his head but does not entirely sure. [facility] Medical History (Updated 04/17/23 @ 18:[address] Hollie Hernandez, DO) Adenocarcinoma Alcohol use Ambulates with cane Anxiety Arthritis Atherosclerosis of coronary artery of [place] heart without angina pectoris Back pain BPH (benign prostatic hyperplasia) Bright's disease Cancer Cardiology follow-up encounter Chewing tobacco nicotine dependence Colon cancer Depression Easy bruising Essential (primary) hypertension Fall Gait instability High cholesterol History of echocardiogram History of heart attack History of pain when walking History of prostate cancer History of radiation therapy History of stress test HLD (hyperlipidemia) Old inferior wall myocardial infarction Smoker Wears dentures Wears glasses Wears hearing aid Home Medications finasteride 5 mg tablet (Proscar) 5 mg PO DAILY prostate 01/27/18 [History Last Taken 04/17/23] aspirin 81 mg tablet,delayed release (Adult Low Dose Aspirin) 81 mg PO DAILY heart health 07/30/18 [History Last Taken 04/17/23] nitroglycerin 0.4 mg sublingual tablet 0.4 mg sublingual Q5M PRN Chest Pain #25 tabs 05/11/21 [Rx Last Taken Unknown] lorazepam 1 mg tablet (Ativan) 1 mg PO TID PRN anxiety #10 tabs 10/21/21 [Rx Last Taken Unknown] tamsulosin 0.4 mg capsule 0.4 mg PO QHS prostate 10/21/21 [History Last Taken 04/16/23] atenolol 25 mg tablet 12.5 mg PO QDAY blood pressure 07/15/22 [History Last Taken 04/17/23] baclofen 5 mg tablet 5 mg PO QHS muscle spasms 07/15/22 [History Last Taken 04/16/23] hydroxyzine HCl 25 mg tablet 25 mg PO TID PRN anxiety 07/15/22 [History Last Taken Unknown] isosorbide mononitrate 60 mg tablet,extended release 24 hr 60 mg PO DAILY heart #90 tabs 01/16/23 [Rx Last Taken 04/17/23] gabapentin 300 mg capsule 600 mg PO BID nerve pain 30 days #120 caps 01/28/23 [History Last Taken 04/17/23] buprenorphine 10 mcg/hour weekly transdermal patch 1 patch transdermal FR 04/17/23 [History Last Taken 04/11/23] bupropion HCl 100 mg tablet,12 hr sustained-release 100 mg PO BID depression 04/17/23 [History Last Taken 04/17/23] oxybutynin chloride 10 mg tablet,extended release 24 hr 10 mg PO DAILY overactive bladder 04/17/23 [History Last Taken 04/17/23] Allergy/AdvReac Type Severity Reaction Status Date / Time No Known Allergies Allergy Verified 04/17/23 16:02 Family History (Updated 04/17/23 @ 15:[address] Arnold Garsia MD) Father Cancer skin cancer Mother Myocardial infarction Diabetes Other Fall Surgical History (Updated 04/17/23 @ 16:04 by Zuleika Domínguez) H/O percutaneous transluminal coronary angioplasty (11/13/93) History of angioplasty History of colostomy History of cystoscopy History of inguinal hernia repair, bilateral History of left heart catheterization (02/24/02) History of rotator cuff surgery Hx of appendectomy Hx of colectomy Status post trigger finger release Social History Smoking Status: Never smoker alcohol intake: current alcohol intake frequency: a few times a month Alcohol type: hard liquor substance use type: does not use caffeine: Yes Type: coffee Number of servings: 1 ROS ROS ED Constitutional Constitutional ED: Reports sweats; Denies chills or fever(s) Eyes Eyes: Denies change in vision Cardiovascular Cardiovascular: Denies chest pain Respiratory/Chest Respiratory/Chest: Denies cough Gastrointestinal Gastrointestinal: Denies abdominal pain, diarrhea, nausea or vomiting Genitourinary Genitourinary ED: Denies dysuria or hematuria Musculoskeletal Musculoskeletal: Reports other Details: left elbow pain Integumentary Reports Abrasions and other Details: redness to LUE Neurologic Neurologic: Reports paresthesias LUE (Tips of the fingers); Denies headache(s) Psychiatric Psychiatric: Denies anxiety or depression Hematologic/Lymphatic Hematologic/Lymphatic: Denies easy bleeding or easy bruising EXAM Physical Exam Const Vital Signs: 04/17/23 09:54 04/17/23 09:58 04/17/23 10:19 Temperature 98.4 F 98.4 F Temperature Source Temporal Temporal Pulse Rate 101 H 101 H Respiratory Rate 18 16 Respiratory Effort Normal Respiratory Depth Normal Respiratory Pattern Normal Blood Pressure 106/59 L 106/59 L Blood Pressure Mean 74 74 Pulse Ox 96 96 Oxygen Delivery Method Room Air 04/17/23 12:04 04/17/23 13:05 Temperature 98.1 F 98.1 F Temperature Source Oral Oral Pulse Rate 86 86 Respiratory Rate 18 16 Respiratory Effort Respiratory Depth Respiratory Pattern Blood Pressure 128/96 H 126/65 H Blood Pressure Mean 106 85 Pulse Ox 96 96 Oxygen Delivery Method Room Air Room Air Positive well nourished and well developed General Appearance ED: well developed and NAD HEENT Reports normocephalic and TM's normal bilaterally atraumatic Eyes PERRL and EOMs intact bilaterally Neck full ROM and supple General: Negative for tenderness Chest Wall inspection of chest normal and palpation of chest normal Resp normal respiratory effort and clear to auscultation bilaterally Cardio regular rate, regular rhythm and no murmurs GI non-tender and non-distended Extremity Extremity Narrative: Left upper extremity?soft tissue swelling diffusely. Tenderness palpation over the elbow especially with palpation of the olecranon process and the radial head. Range of motion is limited and there is no short arc range of motion pain however he does have pain with range of motion especially pronation, supination and extremes of flexion and extension Neuro oriented x3, moves all extremities, no focal motor deficits and no sensory deficits noted Sensorium / Orientation: alert Psych mental status grossly normal and thought process normal Skin Skin Narrative: Scattered ecchymosis and abrasions on the extremities in variable stages of healing. Patient has diffuse erythema and warmth of the left upper extremity extending just proximal to the wrist up into the mid humerus. There is a superficial abrasion over the lateral aspect of the elbow. MDM MDM MDM Narrative Medical decision making narrative: Patient is evaluated for multiple falls. He is complaining of significant swelling with some pain to his left upper extremity. He is left-hand dominant. He does have a leukocytosis of 13.9 as well as a urinary tract infection on urinalysis. Start on IV Rocephin. Due to his unsteady gait and increased frequency of falls I did obtain a CT of his brain as he is not entirely sure if he hit his head. This is to rule out traumatic brain injury/intracranial hemorrhage. This is negative. He has no signs of head trauma on physical exam. He does have erythema of his arm and it is hard to tell whether this is infectious in nature like a cellulitis, vascular like a DVT (he does have good distal pulses) or traumatic. He does have an elevation of his procalcitonin and elevation of his white blood cell count but I think that is to do with his UTI. I do not think this is cellulitis especially given the demarcation points of the erythema. He does have localized signs of trauma such as a abrasion over his elbow and on x-ray he does have an ulnar styloid fracture. Forearm and elbow x-ray reviewed by myself as well as radiology. In addition there is a lot of chronic changes and cannot rule out occult radial head fracture. He is placed in a sling and vercro wrist splint for these injuries. Venous duplex is negative for upper extremity DVT. Given patient's leukocytosis, frequency of falls with significant injury to himself and a source of infection I do think he would benefit at least for 24 hours IV antibiotics and possible evaluation for rehab/PT/OT. He is initially hesitant because he is concerned about his dog how he eventually agrees as his family is can help take care of the dog. Lab Data Attestation: I reviewed the patient's lab results. Labs: Laboratory Results - last 24 hr 04/17/23 04/17/23 04/17/23 10:25 10:25 11:00 WBC Cancelled 13.9 H Corrected WBC Cancelled RBC Cancelled 3.72 L Hgb Cancelled 12.3 L Hct Cancelled 36.8 L MCV Cancelled 98.9 H MCH Cancelled 33.1 H MCHC Cancelled 33.4 RDW Std Deviation Cancelled 49.3 H RDW Coeff of Kathryn Cancelled 13.6 Plt Count Cancelled 171 MPV Cancelled 8.7 Immature Gran % (Auto) Cancelled 0.700 Neut % (Auto) Cancelled 88.4 H Lymph % (Auto) Cancelled 4.5 L [place] % (Auto) Cancelled 6.0 Eos % (Auto) Cancelled 0.1 Baso % (Auto) Cancelled 0.3 Absolute Neuts (auto) Cancelled 12.3 H Absolute Lymphs (auto) Cancelled 0.62 L Total Counted Cancelled Neutrophils % (Manual) Cancelled Band Neutrophils % Cancelled Lymphocytes % (Manual) Cancelled Monocytes % (Manual) Cancelled Eosinophils % (Manual) Cancelled Basophils % (Manual) Cancelled Metamyelocytes % Cancelled Myelocytes % Cancelled Promyelocytes % Cancelled Blast Cells % Cancelled Plasma Cell % (Manual) Cancelled Other Cells % Cancelled Nucleated RBC % Cancelled 0 Nucleated RBCs/100 WBC Cancelled Differential Comment Cancelled Diff Path Review Cancelled Hypersegmented Neuts Cancelled Atypical Lymphocytes Cancelled Reactive Lymphocytes Cancelled Smudge Cells Cancelled Toxic Granulation Cancelled Toxic Vacuolation Cancelled Dohle Bodies Cancelled Patti Rods Cancelled Platelet Estimate Cancelled Plt Morphology Comment Cancelled RBC Morphology Cancelled Cancelled Polychromasia Cancelled Hypochromasia Cancelled Poikilocytosis Cancelled Basophilic Stippling Cancelled Anisocytosis Cancelled Microcytosis Cancelled Macrocytosis Cancelled Spherocytes Cancelled Sickle Cells Cancelled Target Cells Cancelled Tear Drop Cells Cancelled Ovalocytes Cancelled Stomatocytes Cancelled Villatoro-Puckett Bodies Cancelled [place] Cells Cancelled Bite Cells Cancelled Crenated Cell Cancelled Acanthocytes (Spur) Cancelled Rouleaux Cancelled Schistocytes Cancelled Sodium 133 L Potassium 4.1 Chloride 101 Carbon Dioxide 23.0 Anion Gap 9 BUN 17 Creatinine 1.30 Estim Creat Clear Calc 40.92 Est GFR (MDRD) Af Amer 68 Est GFR (MDRD) Non-Af 56 L BUN/Creatinine Ratio 13.1 Glucose 140 H Calcium 9.2 Total Creatine Kinase 321 H Procalcitonin 0.27 H Urine Color Urine Clarity Urine pH Ur Specific [place] Urine Protein Urine Glucose (UA) Urine Ketones Urine Occult Blood Urine Nitrite Urine Bilirubin Urine Urobilinogen Ur Leukocyte Esterase Urine RBC Urine WBC Ur Squamous Epith Cells Urine Bacteria Urine Mucus Urine Yeast 04/17/23 11:10 WBC Corrected WBC RBC Hgb Hct MCV MCH MCHC RDW Std Deviation RDW Coeff of Kathryn Plt Count MPV Immature Gran % (Auto) Neut % (Auto) Lymph % (Auto) [place] % (Auto) Eos % (Auto) Baso % (Auto) Absolute Neuts (auto) Absolute Lymphs (auto) Total Counted Neutrophils % (Manual) Band Neutrophils % Lymphocytes % (Manual) Monocytes % (Manual) Eosinophils % (Manual) Basophils % (Manual) Metamyelocytes % Myelocytes % Promyelocytes % Blast Cells % Plasma Cell % (Manual) Other Cells % Nucleated RBC % Nucleated RBCs/100 WBC Differential Comment Diff Path Review Hypersegmented Neuts Atypical Lymphocytes Reactive Lymphocytes Smudge Cells Toxic Granulation Toxic Vacuolation Dohle Bodies Patti Rods Platelet Estimate Plt Morphology Comment RBC Morphology Polychromasia Hypochromasia Poikilocytosis Basophilic Stippling Anisocytosis Microcytosis Macrocytosis Spherocytes Sickle Cells Target Cells Tear Drop Cells Ovalocytes Stomatocytes Villatoro-Puckett Bodies Simon Cells Bite Cells Crenated Cell Acanthocytes (Spur) Rouleaux Schistocytes Sodium Potassium Chloride Carbon Dioxide Anion Gap BUN Creatinine Estim Creat Clear Calc Est GFR (MDRD) Af Amer Est GFR (MDRD) Non-Af BUN/Creatinine Ratio Glucose Calcium Total Creatine Kinase Procalcitonin Urine Color Yellow Urine Clarity Sl. Cloudy Urine pH 6.0 Ur Specific [place] 1.015 Urine Protein 100 H Urine Glucose (UA) Normal Urine Ketones 15 H Urine Occult Blood 50 H Urine Nitrite Positive H Urine Bilirubin Negative Urine Urobilinogen Normal Ur Leukocyte Esterase 500 H Urine RBC 0-5 SEEN Urine WBC 25-50 SEEN Ur Squamous Epith Cells 0-5 SEEN Urine Bacteria 1+ Urine Mucus 0 SEEN Urine Yeast 2+ Radiography Diagnostic Testing: Clinical Impression(s) from Imaging Studies Brain CT 04/17/23 10:09 IMPRESSION: Chronic involutional changes of the brain. No acute hemorrhage Electronically Signed: Giovanni Frost MD at 11:05 EDT , Elbow X-Ray 04/17/23 10:10 IMPRESSION: No demonstrated fracture, there is mild nonspecific soft tissue swelling and a subtle occult fracture could be present. 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 There is no evidence of deep vein thrombosis. Superficial veins of the left upper extremity are patent and compressible segmentally. There is no evidence of superficial vein thrombosis. Ordering Physician: Hollie Hernandez Performed By: Jared Martinez RVT ??? Discharge Plan Dx/Rx/DC Orders Clinical Impression: UTI (urinary tract infection), Nondisplaced fracture of left ulna styloid process, initial encounter for closed fracture, Leukocytosis, Frequent falls, Contusion of elbow, left Disposition Disposition: Acute Care Hospital [facility] Discharge Date/Time: 04/17/23 15:42
[2023-04-17] MEDS: Acetaminophen 325 MG Tablet 650 MG PO ×2 (10:18→21:54)
--- NOTE | 2023-04-17 10:50 | RAD_ITS ---
STUDY: X-RAY CHEST REASON FOR EXAM: Male, 83 years old. Fever and cough TECHNIQUE: 2 PA and 2 lateral views COMPARISON: 01/28/2022 FINDINGS: Stable appearance of a right subclavian port. The lungs are clear and expanded. There is no demonstrated pleural abnormality. Normal size heart. Normal mediastinum and maria del rosario. Normal visualized pulmonary arteries. Normal visualized aortic arch and descending thoracic aorta. There are diffuse degenerative changes of the visualized thoracic spine. There is degenerative osteoarthritis of the bilateral shoulders. There is no demonstrated abnormality of the visualized soft tissue structures of the upper abdomen. RAD/Chest PA and Lateral IMPRESSION: No acute pulmonary process, no interval change Electronically Signed: Giovanni Frost MD at 11:08 EDT ,
[2023-04-17 10:51] LABS: Anion Gap 9 (5-15); BUN 17 mg/dL (7-18); BUN/Creat Ratio 13.1 RATIO (10-20); CPK Total, Creatine Kinase 321 U/L (39-308); Calcium,Total 9.2 mg/dL (8.5-10.1); Chloride 101 mmol/L (98-107); EST Glomerular Filtration Rate 56 mL/min (>60); Est Glom Filt Rate - Afr Amer 68 mL/min (>60); Estimated Creatinine Clearance 40.92 ml/min; Glucose 140 mg/dL (74-106); Potassium 4.1 mmol/L (3.5-5.1); Sodium Level 133 mmol/L (136-145)
[2023-04-17 11:07] LABS: Absolute Lymphocyte Count 0.62 X10^3/uL (0.83-4.51); Absolute Neutrophil Count 12.3 X10^3/uL (2.0-7.7); Basophil# 0.04 X10^3/uL; Basophil% 0.3 % (0-1); Eosinophil# 0.02 X10^3/uL; Eosinophils% 0.1 % (0-5); Hematocrit 36.8 % (40-54); Hemoglobin 12.3 g/dL (13.0-16.5); Lymphocyte # 0.62 X10^3/ul (0.83-4.51); Lymphocyte % 4.5 % (19-41); Mean Corp Hgb Conc 33.4 g/dL (32-36); Mean Corpuscular Hgb 33.1 pg (27.0-32.0); Mean Corpuscular Volume 98.9 fL (80-94); Mean Platelet Vol. 8.7 fl (6.2-12.0); Monocyte# 0.83 X10^3/uL; NRBC Flagged by Analyzer 0 % (0-5); Neutrophil # 12.31 X10^3/uL (2.7-7.7); Neutrophil % 88.4 % (47-70); Platelet Count 171 K/mm3 (150-450); RBC Distribution Width CV 13.6 % (11.6-14.6); RBC Distribution Width SD 49.3 fl (35.1-43.9); Red Blood Count 3.72 M/mm3 (4.6-6.2); White Blood Count 13.9 K/mm3 (4.4-11.0)
[2023-04-17 11:09] LABS: Procalcitonin 0.27 ng/mL (0.00-0.09)
--- NOTE | 2023-04-17 11:12 | CM.ED ---
Social Work SW performed chart review, patient has HCPOA and LW documents on file as of 2016. Patient's HCPOAs are his , [place], and alternate is his son, Raza Yarbrough Lanette CLAUDIOW, THEE
[2023-04-17 11:15] LABS: Mucous, Urine 0 SEEN /hpf (<or=2+)
--- NOTE | 2023-04-17 11:15 | VDUE_ITS ---
Reason For Study: LUE Swelling Right Proximal Left Proximal Right subclavian vein is spontaneous, widely Left jugular vein is spontaneous, widely patent, phasic, with no intraluminal patent, phasic, with no intraluminal echogenicity noted. echogenicity noted. Left subclavian vein is spontaneous, widely patent, phasic, with no intraluminal echogenicity noted. Left Arm Left axillary vein is spontaneous, patent, phasic, competent, compressible and demonstrates augmentation. Left brachial vein is compressible. Left cephalic vein is compressible. Left basilic vein is compressible. Left Lower Arm Left radial vein is compressible. Left ulnar vein is compressible. Patient Safety Preliminary findings reported to Dr. Hernandez. VL/Venous Duplex US, Unilateral Interpretation Summary Deep veins of the left upper extremity are patent and compressible segmentally. There is no evidence of deep vein thrombosis. Superficial veins of the left upper extremity are patent and compressible segme ntally. There is no evidence of superficial vein thrombosis. Ordering Physician: Hollie Hernandez Performed By: Jared Martinez RVT ???
[2023-04-17 11:19] LABS: Color, Urine Yellow (Yellow); Glucose, Dipstick Normal (Normal); Ketone-Dipstick 15 mg/dl (Negative); Leukocyte Esterase-Dipstick 500 /ul (Negative); Nitrite-Dipstick Positive (Negative); Occult Blood-Urine 50 /ul (Negative); Protein-Dipstick 100 mg/dl (Negative); Specific Gravity, Urine 1.015 (1.002-1.030); Urine Bilirubin Dipstick Negative (Negative); Urine Clarity Sl. Cloudy (Clear); Urine Urobilinogen Normal (Normal)
[2023-04-17 11:28] LABS: Bacteria 1+ /hpf (None Seen); Red Blood Cells-Urine 0-5 SEEN /hpf (0-5); Squamous Epithelial Cells - UA 0-5 SEEN /hpf (0-5); White Blood Cells 25-50 SEEN /hpf (0-5); Yeast-Urine 2+ /hpf (None Seen)
[2023-04-17] MEDS: Ceftriaxone 1 GM/50 ML BAG IV (12:16)
--- NOTE | 2023-04-17 12:35 | ED.RN ---
spoke with Dr. Hernandez to inform of daughter's concern that patient drinks 2 shots of alcohol in the evening, with the meds he is on.
--- NOTE | 2023-04-17 15:20 | HP.PCM.HOS_ITS ---
HPI - General General Date of Admission: 04/17/23 Date of Service: 04/17/23 Chief Complaint: Multiple falls recurrent. UTI. HPI Narrative HOWIE MANZO, is a 83 M Came to ED for left upper extremity swelling and pain and frequent falls. Patient usually walks cane and walker but he states he gets pain on right hip on walking and relieved on resting therefore most likely has right hip arthritis. Patient is poor historian probably due to dementia and most of the question he states does not remember. Chronic gait instability/disequilibrium. He also stated he has sledge in the house and when he walks he falls down. Had multiple falls over past 1 week but he cannot say mechanical fall number of fall. He denies loss of consciousness or hitting head. Left upper extremity is swollen, redness, pain and superficial abrasion over lateral aspect of elbow Patient also has abrasion and bruise over both lower extremities on right lower leg and left knee. Complain of burning punctuation for past few days exactly cannot say duration. Patient on multiple antidepressant, lorazepam and tranquilizers probably that is why his memory is poor [facility] Medical History (Updated 04/17/23 @ 15:[address] Arnold Garsia MD) Adenocarcinoma Alcohol use Ambulates with cane Anxiety Arthritis Atherosclerosis of coronary artery of [place] heart without angina pectoris Back pain BPH (benign prostatic hyperplasia) Bright's disease Cancer Cardiology follow-up encounter Chewing tobacco nicotine dependence Colon cancer Depression Easy bruising Essential (primary) hypertension Fall Gait instability High cholesterol History of echocardiogram History of heart attack History of pain when walking History of prostate cancer History of radiation therapy History of stress test HLD (hyperlipidemia) Old inferior wall myocardial infarction Wears dentures Wears glasses Wears hearing aid Home Medications finasteride 5 mg tablet (Proscar) 5 mg PO DAILY prostate 01/27/18 [History Last Taken 04/17/23] aspirin 81 mg tablet,delayed release (Adult Low Dose Aspirin) 81 mg PO DAILY heart health 07/30/18 [History Last Taken 04/17/23] nitroglycerin 0.4 mg sublingual tablet 0.4 mg sublingual Q5M PRN Chest Pain #25 tabs 05/11/21 [Rx Last Taken Unknown] lorazepam 1 mg tablet (Ativan) 1 mg PO TID PRN anxiety #10 tabs 10/21/21 [Rx Last Taken Unknown] tamsulosin 0.4 mg capsule 0.4 mg PO QHS prostate 10/21/21 [History Last Taken 04/16/23] atenolol 25 mg tablet 12.5 mg PO QDAY blood pressure 07/15/22 [History Last Taken 04/17/23] baclofen 5 mg tablet 5 mg PO QHS muscle spasms 07/15/22 [History Last Taken 04/16/23] hydroxyzine HCl 25 mg tablet 25 mg PO TID PRN anxiety 07/15/22 [History Last Taken Unknown] isosorbide mononitrate 60 mg tablet,extended release 24 hr 60 mg PO DAILY heart #90 tabs 01/16/23 [Rx Last Taken 04/17/23] gabapentin 300 mg capsule 600 mg PO BID nerve pain 30 days #120 caps 01/28/23 [History Last Taken 04/17/23] buprenorphine 10 mcg/hour weekly transdermal patch 1 patch transdermal FR 04/17/23 [History Last Taken 04/11/23] bupropion HCl 100 mg tablet,12 hr sustained-release 100 mg PO BID depression 04/17/23 [History Last Taken 04/17/23] oxybutynin chloride 10 mg tablet,extended release 24 hr 10 mg PO DAILY overactive bladder 04/17/23 [History Last Taken 04/17/23] Allergy/AdvReac Type Severity Reaction Status Date / Time No Known Allergies Allergy Verified 04/17/23 09:54 Family History (Updated 04/17/23 @ 15:[address] Arnold Garsia MD) Father Cancer skin cancer Mother Myocardial infarction Diabetes Other Fall Surgical History H/O percutaneous transluminal coronary angioplasty (11/13/93) History of colostomy History of cystoscopy History of inguinal hernia repair, bilateral History of left heart catheterization (02/24/02) History of rotator cuff surgery Hx of appendectomy Hx of colectomy Status post trigger finger release Social History Smoking Status: Never smoker alcohol intake: current alcohol intake frequency: a few times a month Alcohol type: hard liquor substance use type: does not use caffeine: Yes Type: coffee Number of servings: 1 ROS ROS Narrative Complete 14 ROS is unobtainable as patient has a chronic mental condition probably dementia and multiple antidepression medications including muscle relaxant. Patient has left-sided ileostomy with bilious fluid in the bag. History of colon cancer status post colectomy. Patient sometimes passes flatus through rectum. History of chemotherapy History of prostate cancer status postradiation therap Denies nausea vomiting, abdominal pain. No acute GI bleed. No chest pain shortness of breath dizziness or lightheadedness. Rest 14 ROS already mentioned in HPI Vital Signs Vital Signs Vital Signs: 04/17/23 09:54 04/17/23 09:58 04/17/23 10:19 Temperature 98.4 F 98.4 F Temperature Source Temporal Temporal Pulse Rate 101 H 101 H Respiratory Rate 18 16 Respiratory Effort Normal Respiratory Depth Normal Respiratory Pattern Normal Blood Pressure 106/59 L 106/59 L Blood Pressure Mean 74 74 Pulse Ox 96 96 Oxygen Delivery Method Room Air 04/17/23 12:04 04/17/23 13:05 Temperature 98.1 F 98.1 F Temperature Source Oral Oral Pulse Rate 86 86 Respiratory Rate 18 16 Respiratory Effort Respiratory Depth Respiratory Pattern Blood Pressure 128/96 H 126/65 H Blood Pressure Mean 106 85 Pulse Ox 96 96 Oxygen Delivery Method Room Air Room Air Weight Weight: 186 lb 11.2 oz Body Mass Index (BMI) 28.3 Physical Exam Narrative General: Alert, Oriented x3, Cooperative HEENT: Atraumatic, PERRLA, EOMI, Normocephalic Oral: Oral mucosa dry, dehydrated no Gingival or Mucosal Lesions/ Ulcerations Neck: Supple, No JVD, Negative Carotid Bruits Lungs: Air entry diminished in bilateral lung bases. No crepitation/rhonchi Cardiovascular: Regular rate, Regular Rhythm, Normal S1, Normal S2, No murmurs Abdomen: Bowel Sounds Present, Soft, Non Tender, Non-Distended. Left lower ileostomy present. Bilious fluid. Stoma looks healthy with granulation tissue with no bleeding or herniation. : No renal angle tenderness. No suprapubic tenderness. Extremities: No edema, Capillary Refill Less than 3 Seconds Skin: Bruise on both lower extremity, right madden in RLE and left knee. Swelling, tenderness, abrasion over elbow lateral aspect. No induration. Musculoskeletal: No Tenderness to Palpation of Joints or Extremities Neurological: Cranial nerves II-XII grossly intact, DTR 2+/4. No acute focal neurological deficit. Psych/Mental Status: Flat affect. Possible dementia Results Lab / Micro Data 04/17/23 11:00 04/17/23 10:25 Labs: Laboratory Results - last 24 hr 04/17/23 10:25: WBC Cancelled, Corrected WBC Cancelled, RBC Cancelled, Hgb Cancelled, Hct Cancelled, MCV Cancelled, MCH Cancelled, MCHC Cancelled, RDW Std Deviation Cancelled, RDW Coeff of Kathryn Cancelled, Plt Count Cancelled, MPV Cancelled, Immature Gran % (Auto) Cancelled, Neut % (Auto) Cancelled, Lymph % (Auto) Cancelled, [place] % (Auto) Cancelled, Eos % (Auto) Cancelled, Baso % (Auto) Cancelled, Absolute Neuts (auto) Cancelled, Absolute Lymphs (auto) Cancelled, Total Counted Cancelled, Neutrophils % (Manual) Cancelled, Band Neutrophils % Cancelled, Lymphocytes % (Manual) Cancelled, Monocytes % (Manual) Cancelled, Eosinophils % (Manual) Cancelled, Basophils % (Manual) Cancelled, Metamyelocytes % Cancelled, Myelocytes % Cancelled, Promyelocytes % Cancelled, Blast Cells % Cancelled, Plasma Cell % (Manual) Cancelled, Other Cells % Cancelled, Nucleated RBC % Cancelled, Nucleated RBCs/100 WBC Cancelled, Differential Comment Cancelled, Diff Path Review Cancelled, Hypersegmented Neuts Cancelled, Atypical Lymphocytes Cancelled, Reactive Lymphocytes Cancelled, Smudge Cells Cancelled, Toxic Granulation Cancelled, Toxic Vacuolation Cancelled, Dohle Bodies Cancelled, Patti Rods Cancelled, Platelet Estimate Cancelled, Plt Morphology Comment Cancelled, RBC Morphology Cancelled 04/17/23 10:25: RBC Morphology Cancelled, Polychromasia Cancelled, Hypochromasia Cancelled, Poikilocytosis Cancelled, Basophilic Stippling Cancelled, Anisocytosis Cancelled, Microcytosis Cancelled, Macrocytosis Cancelled, Spherocytes Cancelled, Sickle Cells Cancelled, Target Cells Cancelled, Tear Drop Cells Cancelled, Ovalocytes Cancelled, Stomatocytes Cancelled, Villatoro-Bienville Bodies Cancelled, Simon Cells Cancelled, Bite Cells Cancelled, Crenated Cell Cancelled, Acanthocytes (Spur) Cancelled, Rouleaux Cancelled, Schistocytes Cancelled, Sodium 133 L, Potassium 4.1, Chloride 101, Carbon Dioxide 23.0, Anion Gap 9, BUN 17, Creatinine 1.30, Estim Creat Clear Calc 40.92, Est GFR (MDRD) Af Amer 68, Est GFR (MDRD) Non-Af 56 L, BUN/Creatinine Ratio 13.1, Glucose 140 H, Calcium 9.2, Total Creatine Kinase 321 H, Procalcitonin 0.27 H 04/17/23 11:00: WBC 13.9 H, RBC 3.72 L, Hgb 12.3 L, Hct 36.8 L, MCV 98.9 H, MCH 33.1 H, MCHC 33.4, RDW Std Deviation 49.3 H, RDW Coeff of Kathryn 13.6, Plt Count 171, MPV 8.7, Immature Gran % (Auto) 0.700, Neut % (Auto) 88.4 H, Lymph % (Auto) 4.5 L, [place] % (Auto) 6.0, Eos % (Auto) 0.1, Baso % (Auto) 0.3, Absolute Neuts (auto) 12.3 H, Absolute Lymphs (auto) 0.62 L, Nucleated RBC % 0 04/17/23 11:10: Urine Color Yellow, Urine Clarity Sl. Cloudy, Urine pH 6.0, Ur Specific [place] 1.015, Urine Protein 100 H, Urine Glucose (UA) Normal, Urine Ketones 15 H, Urine Occult Blood 50 H, Urine Nitrite Positive H, Urine Bilirubin Negative, Urine Urobilinogen Normal, Ur Leukocyte Esterase 500 H, Urine RBC 0-5 SEEN, Urine WBC 25-50 SEEN, Ur Squamous Epith Cells 0-5 SEEN, Urine Bacteria 1+, Urine Mucus 0 SEEN, Urine Yeast 2+ Radiology Impression Brain CT 04/17/23 10:09 IMPRESSION: Chronic involutional changes of the brain. No acute hemorrhage Electronically Signed: Giovanni Frost MD at 11:05 EDT , Elbow X-Ray 04/17/23 10:10 IMPRESSION: No demonstrated fracture, there is mild nonspecific soft tissue swelling and a subtle occult fracture could be present. 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 There is no evidence of deep vein thrombosis. Superficial veins of the left upper extremity are patent and compressible segmentally. There is no evidence of superficial vein thrombosis. Ordering Physician: Hollie Hernandez Performed By: Jared Martinez, RVT ??? Assessment & Plan Assessment/Plan (1) UTI (urinary tract infection): QUALIFIERS: Urinary tract infection type: acute cystitis Hematuri a presence: without hematuria Qualified Code(s): N30.00 - Acute cystitis without hematuria (2) Fall: QUALIFIERS: Encounter type: initial encounter Qualified Code(s): W19.XXXA - Unspecified fall, initial encounter PLAN: Plan This 83-year-old gentleman being admitted for multiple fall although patient cannot give details. 1. Acute on recurrent fall probably due to degenerative arthritis, gait instability and distal gram: [facility] and OT to evaluate. Patient has 5/5 strength of her knees and hip joint although has chronic right hip degenerative arthritis. 2. Acute cystitis: Patient has burning micturition. UA shows LE 500, WBC 25-50 cells, nitrite positive. Patient empirically started on IV ceftriaxone. Urine culture is ordered. 3. Abrasion on the left elbow, acute nondisplaced ulnar styloid fracture with soft tissue swelling, bilateral lower extremity bruise: Patient had multiple imagings including CT head, forearm and elbow x-ray. Venous duplex of LUE was also done which was negative for acute DVT. PT and OT. There is also redness pain and tender probably due to fall, cellulitis less likely but patient is on IV antibiotic 4. Acute nondisplaced ulnar styloid fracture suspected with soft tissue swelling this is seen only on the lateral view Colon cancer status post total colectomy, ileostomy status postchemotherapy, prostate cancer status post radiotherapy : No acute issues. Ileostomy stoma is healthy. Stoma dressing. 4. Coronary artery disease s/p angioplasty of left circumflex in 1993 which was totally occluded, hold for SBP less than 130 mmHg, dyslipidemia: No acute issues of chest pain or shortness of breath. Last echo in January 2022 reported EF 60% with stage II diastolic dysfunction, trivial AI. Pharmacological myocardial nuclear stress test in January 2020 reported normal. Continue patient cardiac medications. 5. Poor memory probably dementia impression multiple antidepression medications: Hold lorazepam. Patient on buprenorphine patch 10 mcg/h patch on Friday, bupropion, hydroxyzine. Hold lorazepam. Hydroxyzine dose decreased. Continue bupropion and other medication. VTE prophylaxis, high risk: Lovenox 40 mg subcu daily started from 10 AM tomorrow. Patient has bruise, redness and abrasion on left elbow area, bilateral lower extremity therefore will not start anticoagulant immediately. Bilateral SCDs Living will/advanced directive/end of life care: Patient does have living will or advanced directive. Her daughter, Mrs. Jackson is next to kin. After discussion of benefits/risks procedures involved with full code, DNR CC arrest and DNR CC, the patient opted for DNRCC arrest with no intubation Patient doesn't want artificial life support including intubation, tube feed, ventilator and/chest compression, central venous catheter, vasopressor and DC shock if needed Total time spent in [id number] encounter in discussion of advanced directive 17 minutes. Clinical Impression(s) from Imaging Studies Brain CT 04/17/23 10:09 IMPRESSION: Chronic involutional changes of the brain. No acute hemorrhage Elbow X-Ray 04/17/23 10:10 IMPRESSION: No demonstrated fracture, there is mild nonspecific soft tissue swelling and a subtle occult fracture could be present. 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 There is no evidence of deep vein thrombosis. Superficial veins of the left upper extremity are patent and compressible segmen tally. There is no evidence of superficial vein thrombosis. Laboratory Results Sodium 133 L, Potassium 4.1, Chloride 101, Carbon Dioxide 23.0, Anion Gap 9, BUN 17, Creatinine 1.30, Estim Creat Clear Calc 40.92, Est GFR (MDRD) Af Amer 68, Est GFR (MDRD) Non-Af 56 L, BUN/Creatinine Ratio 13.1, Glucose 140 H, Calcium 9.2, Total Creatine Kinase 321 H, Procalcitonin 0.27 H 04/17/23 11:00: WBC 13.9 H, RBC 3.72 L, Hgb 12.3 L, Hct 36.8 L, MCV 98.9 H, MCH 33.1 H, MCHC 33.4, RDW Std Deviation 49.3 H, RDW Coeff of Kathryn 13.6, Plt Count 171, MPV 8.7, Immature Gran % (Auto) 0.700, Neut % (Auto) 88.4 H, Lymph % (Auto) 4.5 L, [place] % (Auto) 6.0, Eos % (Auto) 0.1, Baso % (Auto) 0.3, Absolute Neuts (auto) 12.3 H, Absolute Lymphs (auto) 0.62 L, Nucleated RBC % 0 04/17/23 11:10: Urine Color Yellow, Urine Clarity Sl. Cloudy, Urine pH 6.0, Ur Specific [place] 1.015, Urine Protein 100 H, Urine Glucose (UA) Normal, Urine Ketones 15 H, Urine Occult Blood 50 H, Urine Nitrite Positive H, Urine Bilirubin Negative, Urine Urobilinogen Normal, Ur Leukocyte Esterase 500 H, Urine RBC 0-5 SEEN, Urine WBC 25-50 SEEN, Ur Squamous Epith Cells 0-5 SEEN, Urine Bacteria 1+, Urine Mucus 0 SEEN, Urine Yeast 2+ Charges/Coding Visit Charges Inpatient E&M: 35099 Init Hosp L3 Procedures Hospitalists Procedures: 21808 Advncd Care Plan 30 Min
[2023-04-17] MEDS: 0.9% Normal Saline 1,000 ML 75 ML IV (16:36)
[2023-04-17] MEDS: 0.9% Saline Lock 10 ML Syringe IV (16:37)
[2023-04-17] MEDS: Baclofen 10 MG Tablet 5 MG PO (21:52)
[2023-04-17] MEDS: buPROPion (SR) 100 MG TABLET.SA PO (21:53)
[2023-04-17] MEDS: Gabapentin 600 MG Tablet PO (21:53)
[2023-04-17] MEDS: Tamsulosin HCl 0.4 MG Capsule PO (21:53)
[2023-04-18] VITALS (7 sets, daily range): BP systolic 100–149; BP diastolic 52–93; PULSE 82–98; RESP 16–18; TEMP 36.2–37.7; O2SAT 96–98; BMI 27.6
[2023-04-18] MEDS: Psyllium 1 PACKET PO (02:50)
[2023-04-18] MEDS: 0.9% Normal Saline 1,000 ML 75 ML IV (05:46)
[2023-04-18 06:16] LABS: Absolute Lymphocyte Count 1.15 X10^3/uL (0.83-4.51); Absolute Neutrophil Count 9.9 X10^3/uL (2.0-7.7); Basophil# 0.03 X10^3/uL; Basophil% 0.3 % (0-1); Eosinophil# 0.03 X10^3/uL; Eosinophils% 0.3 % (0-5); Hematocrit 37.9 % (40-54); Lymphocyte # 1.15 X10^3/ul (0.83-4.51); Lymphocyte % 9.9 % (19-41); Mean Corp Hgb Conc 31.7 g/dL (32-36); Mean Corpuscular Hgb 32.4 pg (27.0-32.0); Mean Corpuscular Volume 102.4 fL (80-94); Mean Platelet Vol. 9.1 fl (6.2-12.0); Monocyte# 0.43 X10^3/uL; Monocyte% 3.7 % (0-10); NRBC Flagged by Analyzer 0 % (0-5); Neutrophil # 9.91 X10^3/uL (2.7-7.7); Neutrophil % 84.8 % (47-70); Platelet Count 153 K/mm3 (150-450); RBC Distribution Width CV 13.4 % (11.6-14.6); RBC Distribution Width SD 50.7 fl (35.1-43.9); White Blood Count 11.7 K/mm3 (4.4-11.0)
[2023-04-18 06:57] LABS: Anion Gap 7 (5-15); BUN 18 mg/dL (7-18); BUN/Creat Ratio 16.2 RATIO (10-20); Calcium,Total 8.8 mg/dL (8.5-10.1); Chloride 104 mmol/L (98-107); Creatinine, Serum 1.11 mg/dL (0.70-1.30); EST Glomerular Filtration Rate 67 mL/min (>60); Est Glom Filt Rate - Afr Amer 81 mL/min (>60); Estimated Creatinine Clearance 47.93 ml/min; Glucose 111 mg/dL (74-106); Magnesium 2.1 mg/dL (1.6-2.6); Phosphorus 1.6 mg/dL (2.5-4.9); Potassium 3.6 mmol/L (3.5-5.1); Sodium Level 133 mmol/L (136-145)
--- NOTE | 2023-04-18 07:40 | PCM.PN.HOSP ---
Reason for Visit Reason for Visit: Diagnoses Acute cystitis without hematuria (04/17/23) Unspecified fall, initial encounter (04/17/23) Subjective Subjective Feels well. Objective Data Objective Data Vital Signs: Vital Signs Temp Pulse Resp BP Pulse Ox O2 Del Method 37.7 C H 97 18 134/66 H 96 Room Air 04/18/23 05:23 04/18/23 05:23 04/18/23 05:23 04/18/23 05:23 04/18/23 05:23 04/18/23 05:23 Oxygen Delivery Method Room Air Weight: 82.4 kg Body Mass Index (BMI) 27.6 Intake & Output: Intake and Output for Last 24 Hours 04/16/23 04/17/23 04/18/23 23:59 23:59 23:59 Intake Total 58.75 / 58.75 987.5 / 987.5 Output Total 200 / 200 Balance -141.25 / -141.25 987.5 / 987.5 Lab / Micro Data 04/18/23 05:55 04/18/23 05:55 Labs: Laboratory Results - last 24 hr 04/17/23 10:25: WBC Cancelled, Corrected WBC Cancelled, RBC Cancelled, Hgb Cancelled, Hct Cancelled, MCV Cancelled, MCH Cancelled, MCHC Cancelled, RDW Std Deviation Cancelled, RDW Coeff of Kathryn Cancelled, Plt Count Cancelled, MPV Cancelled, Immature Gran % (Auto) Cancelled, Neut % (Auto) Cancelled, Lymph % (Auto) Cancelled, Terrell % (Auto) Cancelled, Eos % (Auto) Cancelled, Baso % (Auto) Cancelled, Absolute Neuts (auto) Cancelled, Absolute Lymphs (auto) Cancelled, Total Counted Cancelled, Neutrophils % (Manual) Cancelled, Band Neutrophils % Cancelled, Lymphocytes % (Manual) Cancelled, Monocytes % (Manual) Cancelled, Eosinophils % (Manual) Cancelled, Basophils % (Manual) Cancelled, Metamyelocytes % Cancelled, Myelocytes % Cancelled, Promyelocytes % Cancelled, Blast Cells % Cancelled, Plasma Cell % (Manual) Cancelled, Other Cells % Cancelled, Nucleated RBC % Cancelled, Nucleated RBCs/100 WBC Cancelled, Differential Comment Cancelled, Diff Path Review Cancelled, Hypersegmented Neuts Cancelled, Atypical Lymphocytes Cancelled, Reactive Lymphocytes Cancelled, Smudge Cells Cancelled, Toxic Granulation Cancelled, Toxic Vacuolation Cancelled, Dohle Bodies Cancelled, Patti Rods Cancelled, Platelet Estimate Cancelled, Plt Morphology Comment Cancelled, RBC Morphology Cancelled 04/17/23 10:25: RBC Morphology Cancelled, Polychromasia Cancelled, Hypochromasia Cancelled, Poikilocytosis Cancelled, Basophilic Stippling Cancelled, Anisocytosis Cancelled, Microcytosis Cancelled, Macrocytosis Cancelled, Spherocytes Cancelled, Sickle Cells Cancelled, Target Cells Cancelled, Tear Drop Cells Cancelled, Ovalocytes Cancelled, Stomatocytes Cancelled, Villatoro-St. John Bodies Cancelled, Ashdown Cells Cancelled, Bite Cells Cancelled, Crenated Cell Cancelled, Acanthocytes (Spur) Cancelled, Rouleaux Cancelled, Schistocytes Cancelled, Sodium 133 L, Potassium 4.1, Chloride 101, Carbon Dioxide 23.0, Anion Gap 9, BUN 17, Creatinine 1.30, Estim Creat Clear Calc 40.92, Est GFR (MDRD) Af Amer 68, Est GFR (MDRD) Non-Af 56 L, BUN/Creatinine Ratio 13.1, Glucose 140 H, Calcium 9.2, Total Creatine Kinase 321 H, Procalcitonin 0.27 H 04/17/23 11:00: WBC 13.9 H, RBC 3.72 L, Hgb 12.3 L, Hct 36.8 L, MCV 98.9 H, MCH 33.1 H, MCHC 33.4, RDW Std Deviation 49.3 H, RDW Coeff of Kathryn 13.6, Plt Count 171, MPV 8.7, Immature Gran % (Auto) 0.700, Neut % (Auto) 88.4 H, Lymph % (Auto) 4.5 L, Terrell % (Auto) 6.0, Eos % (Auto) 0.1, Baso % (Auto) 0.3, Absolute Neuts (auto) 12.3 H, Absolute Lymphs (auto) 0.62 L, Nucleated RBC % 0 04/17/23 11:10: Urine Color Yellow, Urine Clarity Sl. Cloudy, Urine pH 6.0, Ur Specific [place] 1.015, Urine Protein 100 H, Urine Glucose (UA) Normal, Urine Ketones 15 H, Urine Occult Blood 50 H, Urine Nitrite Positive H, Urine Bilirubin Negative, Urine Urobilinogen Normal, Ur Leukocyte Esterase 500 H, Urine RBC 0-5 SEEN, Urine WBC 25-50 SEEN, Ur Squamous Epith Cells 0-5 SEEN, Urine Bacteria 1+, Urine Mucus 0 SEEN, Urine Yeast 2+ 04/18/23 05:55: WBC 11.7 H, RBC 3.70 L, Hgb 12.0 L, Hct 37.9 L, MCV 102.4 H, MCH 32.4 H, MCHC 31.7 L D, RDW Std Deviation 50.7 H, RDW Coeff of Kathryn 13.4, Plt Count 153, MPV 9.1, Immature Gran % (Auto) 1.000 H, Neut % (Auto) 84.8 H, Lymph % (Auto) 9.9 L, Terrell % (Auto) 3.7, Eos % (Auto) 0.3, Baso % (Auto) 0.3, Absolute Neuts (auto) 9.9 H, Absolute Lymphs (auto) 1.15, Nucleated RBC % 0, Sodium 133 L, Potassium 3.6, Chloride 104, Carbon Dioxide 22.0, Anion Gap 7, BUN 18, Creatinine 1.11, Estim Creat Clear Calc 47.93, Est GFR (MDRD) Af Amer 81, Est GFR (MDRD) Non-Af 67, BUN/Creatinine Ratio 16.2, Glucose 111 H, Calcium 8.8, Phosphorus 1.6 L, Magnesium 2.1 Radiography Diagnostic Testing: Radiology Impression Brain CT 04/17/23 10:09 IMPRESSION: Chronic involutional changes of the brain. No acute hemorrhage Electronically Signed: Giovanni Frost MD at 11:05 EDT , Elbow X-Ray 04/17/23 10:10 IMPRESSION: No demonstrated fracture, there is mild nonspecific soft tissue swelling and a subtle occult fracture could be present. 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 There is no evidence of deep vein thrombosis. Superficial veins of the left upper extremity are patent and compressible segmentally. There is no evidence of superficial vein thrombosis. Ordering Physician: Hollie Hernandez Performed By: Jared Martinez, Isidro ??? Physical Exam Const alert and no apparent distress Resp normal respiratory effort, no retractions, no use of accessory muscles and clear to auscultation bilaterally Cardio regular rate, regular rhythm, S1 normal heart sound and S2 normal heart sound GI normal to inspection, nondistended, normoactive bowel sounds and soft to palpation Extremity Extremity Narrative: Left arm in splint and sling. Assessment & Plan Assessment/Plan (1) UTI (urinary tract infection): QUALIFIERS: Hematuria presence: without hematuria Urinary tract infection type: acute cystitis Qualified Code(s): N30.00 - Acute cystitis without hematuria PLAN: UA w + Nitrates, 500 LE, 25-50 WBC and 1+ bacteria. (Yeast likely contaminant and not a true infections) Ceftriaxone (2) Debility: PLAN: Acute on chronic worsening. Patient with frequent falls. Likely a combination of issues: baseline poor performance status + OA + dementia + UTI + medications PT OT eval and treat. Patient may require SNF upon discharge (3) Cognitive impairment: PLAN: Unclear if MCI v dementia v polypharmacy. I favor the latter. May benefit from Dementia evaluation as outpt. Pt has been taking buprenorphine for some time, so will not stop due to concerns for withdrawal. Decrease gabapentin from 600 TID to 100 TID DC baclofen (4) Chronic pain: QUALIFIERS: Chronic pain type: chronic pain syndrome Qualified Code(s): G89.4 - Chronic pain syndrome PLAN: Reviewed OARRS: pt receives buprenorphine patch, gabapentin Given falls and concern for MCI/dementia/polypharmacy: Pt has been taking buprenorphine for some time, so will not stop due to concerns for withdrawal. Decrease gabapentin from 600 TID to 100 TID schedule acetaminophen (5) Ulnar fracture: QUALIFIERS: Encounter type: initial encounter Fracture morphology: unspecified fracture morphology Fracture type: closed Laterality: left Ulna location: distal Qualified Code(s): S52.602A - Unspecified fracture of lower end of left ulna, initial encounter for closed fracture PLAN: styloid fracture. no radial fracture s/p fall. non-displaced splint and sling placed in ED follow up with orthopaedics (6) Abrasion forearm: QUALIFIERS: Encounter type: initial encounter Laterality: left Qualified Code(s): S50.812A - Abrasion of left forearm, initial encounter PLAN: Abrasion on the left elbow, acute nondisplaced ulnar styloid fracture with soft tissue swelling, bilateral lower extremity bruise: Patient had multiple imaging including CT head, forearm and elbow x-ray. Venous duplex of LUE was also done which was negative for acute DVT. PT and OT. There is also redness pain and tender probably due to fall, cellulitis less likely but patient is on IV antibiotic (7) Vitamin D deficiency: PLAN: start ergocalciferol 50k units for 8 weeks. PLAN: Plan Chronic conditions: Colon cancer status post total colectomy, ileostomy status postchemotherapy, prostate cancer status post radiotherapy : No acute issues. Ileostomy stoma is healthy. Stoma dressing. Coronary artery disease s/p angioplasty of left circumflex in 1993 which was totally occluded. Last echo in January 2022 reported EF 60% with stage II diastolic dysfunction, trivial AI. Pharmacological myocardial nuclear stress test in January 2020 reported normal. Continue Atenolol, isosorbide dyslipidemia: BPH: continue tamsulosin VTE prophylaxis, high risk: Lovenox 40 mg subcu daily Code: RANDY Charges/Coding Visit Charges Inpatient E&M: 15161 Subs Hosp L2
[2023-04-18] MEDS: Enoxaparin 40 MG/0.4 ML Syringe SC (09:08)
[2023-04-18] MEDS: Atenolol 25 MG Tablet 12.5 MG PO (09:08)
[2023-04-18] MEDS: Tolterodine Tartrate 2 MG CAP.SA PO ×2 (09:08→09:09)
[2023-04-18] MEDS: Gabapentin 100 MG Capsule PO ×3 (09:08→16:32)
[2023-04-18] MEDS: Isosorbide Mononitrate 60 MG Tablet PO (09:09)
[2023-04-18] MEDS: Finasteride 5 MG Tablet PO (09:09)
[2023-04-18] MEDS: Aspirin E.C. 81 MG Tablet PO (09:09)
[2023-04-18] MEDS: buPROPion (SR) 100 MG TABLET.SA PO ×2 (09:09→20:53)
[2023-04-18 09:49] LABS: Vitamin D,25 Hydroxy 22.7 ng/mL
[2023-04-18] MEDS: Ceftriaxone 1 GM/50 ML BAG IV (10:42)
--- NOTE | 2023-04-18 11:16 | CASEMGMT ---
Addendum entered by Anna Culver 04/18/23 11:45: ELIE PETERSON called Raza Adames, he states pt is his stepfather and I don't have much to do with him. States his sister Rita should be the healthcare power of employment law attorney. He did not ask any questions and asked RN KRISTEN to call Rita. Addendum entered by Anna Culver 04/18/23 11:38: Pt agreeable to ELIE PETERSON calling his dtr. TC to dtr, left message requesting returned call. ELIE PETERSON noted that in PT eval, pt plan [place]. ELEI PETERSON back into pt room, pt states he has changed his mind and now wants to go home. He is aware that this RN KRISTEN couldn't reach his dtr. He states she is selling furniture and may be staying with him. He states she lives in [place] although face sheet states [place]. Then noted pt son is DPOA. Original Note: ELIE PETERSON Assessment: Face to Face with pt for initial transition planning/care coordination assessment. ELIE PETERSON introduced self and role at [facility], pt voices understanding and consents to assessment. Pt is A/O x3 and answers all questions appropriately at this time, pt states he does get confused at times but was able to answer orientation questions. Care providers, pharmacy, and demographics verified/updated. Admitting Dx: UTI, falls PCP:[facility] Specialists:Yuko, cardio; Darinel, pain mgmt [facility]erred [facility] Benef[facility]: yes LNOK: Rita Albert, dtr Living Arrangements: Pt lives alone in a single story home with 2 steps to enter with grab bars. Pt reports he is I in ADL's, does own groceries, meal prep and laundry. Pt states his dtr has been talking about moving in with him and he thinks that after these falls she will do so. Pt reports falling 3-4 times in the last month. Transportation: Pt drives self and denies concerns with transportation. DME/HHC/SNF: Pt has a cane, FWW that he uses, built in seat in the shower. Pt states he has had HHC in the past when he had his colostomy but is unsure of which agency provided it. Pt denies SNF stays. Pt states no concerns with going home at time of dc. He is agreeable to having HHC again. Pt states no further concerns/needs. CM to follow. Advised pt to ask CM if any further question/concerns/needs arise, voices understanding. Pt Goal: Home with HHC Plan: TBD pending therapy
[2023-04-18] MEDS: BUPRENORPHINE 10 MCG/HR PATCH 1 PATCH TD (13:25)
--- NOTE | 2023-04-18 14:20 | CASEMGMT ---
Social Work SW met with pt and discussed discharge plan. SW reviewed therapy notes with pt and he is agreeable he cannot return home at this time and will need short term SNF. A list of SNF providers including quality and resource use data and consistent with the patient?s preferred geographic region, medical needs, and insurance network were provided from the [facility] Guide. Pt uncertain what to do and requesting SW call his daughter. Phone call to dgt Rita and discussed discharge plan. Rita agreeable to SNF placement and options reviewed. Preferred providers are 1. [facility] and 2. [facility]. Referral to TCU, will await determination. ROSA spoke with Rita regarding HCPOA explaining a document from 2013 named pts step son Raza Adames. Rita states she has a more recent copy naming herself as HCPOA and she will bring in a copy for scanning into medical record. Plan: TCU, pending acceptance HERIBERTO Boateng
[2023-04-18] MEDS: Ergocalciferol 1.25 MG (50, 000 UNIT) Capsule PO (14:28)
[2023-04-18] MEDS: Acetaminophen 500 MG Tablet 1000 MG PO ×2 (14:28→20:54)
--- NOTE | 2023-04-18 14:32 | CHAPLAIN ---
Type of Pastoral Visit _x__ Initial Visit ___ Follow-up Visit ___ On-call Visit ___ General Patient Visit ___ Spiritual Assessment ___ Family Conference ___ Bereavement ___ Rapid Response ___ Code Blue ___ Other (describe below) Pastoral Care Referral From _x__ Patient ___ Family ___ Nurse ___ Physician ___ Host/Hostess Restaurant ___ Emergency Room Clinician ___ Other (describe below) Sacrament/Intervention _x__ Active listening ___ Anointing ___ Taoism ___ Bereavement ___ Communion ___ Amparo exploration ___ _x__ Life review _x__ Prayer ___ Reconciliation ___ Sacrament of Sick _x__ Supportive presence ___ Wedding ___ Other (describe below) Pastoral Comments patient acknowledges that he needed medical attention although he did not want to be admitted; pt is a and admits that it took him several years to be social again after his ; pt states that he is managing better now and has had a couple of female companions; pt used to go to mormonism but stopped that as well; pt welcomes prayer and presence of this cherry grower for support
--- NOTE | 2023-04-18 15:28 | CASEMGMT ---
Social work TCU is able to accept pt on Friday. Pt and dgt Rita made aware and agreeable to dc plan. Plan: TCU, on Friday HERIBERTO Machuca
[2023-04-18] MEDS: Tamsulosin HCl 0.4 MG Capsule PO (20:53)
[2023-04-19 04:50] VITALS: BP 122/64; PULSE 95; RESP 18; TEMP 37.6; O2SAT 97
[2023-04-19] MEDS: Acetaminophen 500 MG Tablet 1000 MG PO ×3 (05:03→20:56)
--- NOTE | 2023-04-19 05:11 | NURSING ---
During the night, patient has been impulsive and rushing to get OOB needing to urinate, he is using his left arm with the fracture despite instructions from nursing staff to not use it. He leans on the walker with it and uses it to remove his brief.
[2023-04-19 06:00] VITALS: BMI 27.1
[2023-04-19 07:11] VITALS: O2SAT 94
--- NOTE | 2023-04-19 07:37 | PN.HOSP_ITS ---
Reason for Visit Reason for Visit: Diagnoses Vitamin D deficiency, unspecified (04/17/23) Chronic pain syndrome (04/17/23) Acute cystitis without hematuria (04/17/23) Other symptoms and signs involving cognitive functions and awareness (04/17/23) Other malaise (04/17/23) Abrasion of left forearm, initial encounter (04/17/23) Unspecified fracture of lower end of left ulna, initial encounter for closed fracture (04/17/23) Unspecified fall, initial encounter (04/17/23) Subjective Subjective Coughing this AM. No new events. Objective Data Objective Data Vital Signs: Vital Signs Temp Pulse Resp BP Pulse Ox O2 Del Method 37.6 C H 95 18 122/64 H 94 Room Air 04/19/23 04:50 04/19/23 04:50 04/19/23 04:50 04/19/23 04:50 04/19/23 07:11 04/19/23 07:11 Oxygen Delivery Method Room Air Weight: 81 kg Body Mass Index (BMI) 27.1 Intake & Output: Intake and Output for Last 24 Hours 04/17/23 04/18/23 04/19/23 23:59 23:59 23:59 Intake Total 58.75 / 58.75 1982.5 / 1982.5 Output Total 200 / 200 100 / 100 200 / 200 Balance -141.25 / -141.25 1882.5 / 1882.5 -200 / -200 Lab / Micro Data 04/18/23 05:55 04/18/23 05:55 Labs: Laboratory Results - last 24 hr 04/18/23 05:55: Vitamin D 25-Hydroxy 22.7 Micro: Microbiology 04/17/23 11:10 Urine, Clean Catch Urine Culture - Preliminary Gram negative nicol Physical Exam Const alert and no apparent distress HEENT head/scalp atraumatic Resp normal respiratory effort, no retractions, no use of accessory muscles and clear to auscultation bilaterally Cardio regular rate, regular rhythm, S1 normal heart sound and S2 normal heart sound GI normal to inspection, nondistended, normoactive bowel sounds and soft to palpation Extremity Extremity Narrative: left arm in splint and sling. Assessment & Plan Assessment/Plan (1) UTI (urinary tract infection): QUALIFIERS: Hematuria presence: without hematuria Urinary tract infection type: acute cystitis Qualified Code(s): N30.00 - Acute cystitis without hematuria PLAN: UA w + Nitrates, 500 LE, 25-50 WBC and 1+ bacteria. (Yeast likely contaminant and not a true infections) Abx w Ceftriaxone, will change levofloxacin for 4 more doses. UCx Seratia marcescens resistant to cefazolin and nitrofurantoin. (2) Debility: PLAN: Acute on chronic worsening. Patient with frequent falls. Likely a combination of issues: baseline poor performance status + OA + dementia + UTI + medications PT OT eval and treat. Patient may require SNF upon discharge (3) Cognitive impairment: PLAN: Unclear if MCI v dementia v polypharmacy. May benefit from Dementia evaluation as outpt. Pt has been taking buprenorphine for some time, so will not stop due to concerns for withdrawal. Decrease gabapentin from 600 TID to 100 TID DC baclofen (4) Chronic pain: QUALIFIERS: Chronic pain type: chronic pain syndrome Qualified Code(s): G89.4 - Chronic pain syndrome PLAN: Reviewed OARRS: pt receives buprenorphine patch, gabapentin Given falls and concern for MCI/dementia/polypharmacy: Pt has been taking buprenorphine for some time, so will not stop due to concerns for withdrawal. Decrease gabapentin from 600 TID to 100 TID schedule acetaminophen (5) Ulnar fracture: QUALIFIERS: Encounter type: initial encounter Fracture morphology: unspecified fracture morphology Fracture type: closed Laterality: left Ulna location: distal Qualified Code(s): S52.602A - Unspecified fracture of lower end of left ulna, initial encounter for closed fracture PLAN: styloid fracture. no radial fracture s/p fall. non-displaced splint and sling placed in ED follow up with orthopaedics (6) Abrasion forearm: QUALIFIERS: Encounter type: initial encounter Laterality: left Qualified Code(s): S50.812A - Abrasion of left forearm, initial encounter PLAN: Abrasion on the left elbow, acute nondisplaced ulnar styloid fracture with soft tissue swelling, bilateral lower extremity bruise: Patient had multiple imaging including CT head, forearm and elbow x-ray. Venous duplex of LUE was also done which was negative for acute DVT. PT and OT. There is also redness pain and tender probably due to fall, cellulitis less likely but patient is on IV antibiotic (7) Vitamin D deficiency: PLAN: start ergocalciferol 50k units for 8 weeks. PLAN: Plan Chronic conditions: * Colon cancer status post total colectomy, ileostomy status postchemotherapy, prostate cancer status post radiotherapy : No acute issues. Ileostomy stoma is healthy. Stoma dressing. * Coronary artery disease s/p angioplasty of left circumflex in 1993 which was totally occluded. Last echo in January 2022 reported EF 60% with stage II diastoli c dysfunction, trivial AI. Pharmacological myocardial nuclear stress test in January 2020 reported normal. Continue Atenolol, isosorbide * dyslipidemia: * BPH: continue tamsulosin VTE prophylaxis, high risk: Lovenox 40 mg subcu daily Code: RANDY Disposition: to TCU on 04/20 if he remains stable. Charges/Coding Visit Charges Inpatient E&M: 02688 Subs Hosp L2
[2023-04-19 09:19] VITALS: BP 112/58; PULSE 89; RESP 18; TEMP 36.4; O2SAT 96
[2023-04-19] MEDS: Ceftriaxone 1 GM/50 ML BAG IV (09:25)
[2023-04-19] MEDS: Enoxaparin 40 MG/0.4 ML Syringe SC (09:25)
[2023-04-19] MEDS: Isosorbide Mononitrate 60 MG Tablet PO (09:25)
[2023-04-19] MEDS: Finasteride 5 MG Tablet PO (09:26)
[2023-04-19] MEDS: Atenolol 25 MG Tablet 12.5 MG PO (09:26)
[2023-04-19] MEDS: buPROPion (SR) 100 MG TABLET.SA PO ×2 (09:27→20:56)
[2023-04-19] MEDS: Aspirin E.C. 81 MG Tablet PO (09:28)
[2023-04-19] MEDS: Gabapentin 100 MG Capsule PO ×3 (09:37→16:31)
[2023-04-19 14:16] VITALS: BP 103/54; PULSE 97; RESP 20; TEMP 37.8; O2SAT 96
[2023-04-19 20:06] VITALS: BP 128/56; PULSE 93; RESP 18; TEMP 37.2; O2SAT 96
[2023-04-19] MEDS: Tamsulosin HCl 0.4 MG Capsule PO (20:56)
[2023-04-20 01:42] VITALS: BP 115/67; PULSE 88; RESP 16; TEMP 36.7; O2SAT 96
[2023-04-20] MEDS: levoFLOXacin 750 MG Tablet PO (05:58)
[2023-04-20] MEDS: Acetaminophen 500 MG Tablet 1000 MG PO (05:58)
[2023-04-20 06:00] VITALS: BMI 27.7
[2023-04-20 07:14] VITALS: O2SAT 96
--- NOTE | 2023-04-20 07:16 | PN.HOSP_ITS ---
Reason for Visit Reason for Visit: Diagnoses Vitamin D deficiency, unspecified (04/17/23) Chronic pain syndrome (04/17/23) Acute cystitis without hematuria (04/17/23) Other symptoms and signs involving cognitive functions and awareness (04/17/23) Other malaise (04/17/23) Abrasion of left forearm, initial encounter (04/17/23) Unspecified fracture of lower end of left ulna, initial encounter for closed fracture (04/17/23) Unspecified fall, initial encounter (04/17/23) Subjective Subjective Feeling well. Objective Data Objective Data Vital Signs: Vital Signs Temp Pulse Resp BP Pulse Ox O2 Del Method 36.7 C 88 16 115/67 96 Room Air 04/20/23 01:42 04/20/23 01:42 04/20/23 01:42 04/20/23 01:42 04/20/23 07:14 04/20/23 07:14 Oxygen Delivery Method Room Air Weight: 82.735 kg Body Mass Index (BMI) 27.7 Intake & Output: Intake and Output for Last 24 Hours 04/18/23 04/19/23 04/20/23 23:59 23:59 23:59 Intake Total 1982.5 / 1982.5 1270 / 1270 300 / 300 Output Total 100 / 100 200 / 200 Balance 1882.5 / 1882.5 1070 / 1070 300 / 300 Lab / Micro Data 04/18/23 05:55 04/18/23 05:55 Micro: Microbiology 04/17/23 11:10 Urine, Clean Catch Urine Culture - Final Serratia marcescens Physical Exam Const alert and no apparent distress HEENT head/scalp atraumatic and moist oral mucous membranes Resp normal respiratory effort, no retractions, no use of accessory muscles and clear to auscultation bilaterally Cardio regular rate, regular rhythm, S1 normal heart sound and S2 normal heart sound GI normal to inspection, nondistended, normoactive bowel sounds and soft to palpation Assessment & Plan Assessment/Plan (1) UTI (urinary tract infection): QUALIFIERS: Hematuria presence: without hematuria Urinary tract infection type: acute cystitis Qualified Code(s): N30.00 - Acute cystitis without hematuria PLAN: UA w + Nitrates, 500 LE, 25-50 WBC and 1+ bacteria. (Yeast likely contaminant and not a true infections) Abx w Ceftriaxone, will change levofloxacin for 4 more doses. UCx Seratia marcescens resistant to cefazolin and nitrofurantoin. (2) Debility: PLAN: Acute on chronic worsening. Patient with frequent falls. Likely a combination of issues: baseline poor performance status + OA + dementia + UTI + medications TCU 04/20 (3) Cognitive impairment: PLAN: Unclear if MCI v dementia v polypharmacy. Pt has been taking buprenorphine for some time, so will not stop due to concerns for withdrawal. Decrease gabapentin from 600 TID to 100 TID DC baclofen May benefit from Dementia evaluation as outpt. (4) Chronic pain: QUALIFIERS: Chronic pain type: chronic pain syndrome Qualified Code(s): G89.4 - Chronic pain syndrome PLAN: Reviewed OARRS: pt receives buprenorphine patch, gabapentin Given falls and concern for MCI/dementia/polypharmacy: Pt has been taking buprenorphine for some time, so will not stop due to concerns for withdrawal. Decrease gabapentin from 600 TID to 100 TID schedule acetaminophen (5) Ulnar fracture: QUALIFIERS: Encounter type: initial encounter Fracture morphology: unspecified fracture morphology Fracture type: closed Laterality: left Ulna location: distal Qualified Code(s): S52.602A - Unspecified fracture of lower end of left ulna, initial encounter for closed fracture PLAN: styloid fracture. no radial fracture s/p fall. non-displaced splint and sling placed in ED follow up with orthopaedics as outpt (6) Abrasion forearm: QUALIFIERS: Encounter type: initial encounter Laterality: left Qualified Code(s): S50.812A - Abrasion of left forearm, initial encounter PLAN: Abrasion on the left elbow, acute nondisplaced ulnar styloid fracture with soft tissue swelling, bilateral lower extremity bruise: Patient had multiple imaging including CT head, forearm and elbow x-ray. Venous duplex of LUE was also done which was negative for acute DVT. PT and OT. There is also redness pain and tender probably due to fall, cellulitis less likely but patient is on IV antibiotic (7) Vitamin D deficiency: PLAN: start ergocalciferol 50k units for 8 weeks. PLAN: Plan Chronic conditions: * Colon cancer status post total colectomy, ileostomy status postchemotherapy, p rostate cancer status post radiotherapy : No acute issues. Ileostomy stoma is healthy. Stoma dressing. * Coronary artery disease s/p angioplasty of left circumflex in 1993 which was totally occluded. Last echo in January 2022 reported EF 60% with stage II diastolic dysfunction, trivial AI. Pharmacological myocardial nuclear stress test in January 2020 reported normal. Continue Atenolol, isosorbide * dyslipidemia: * BPH: continue tamsulosin VTE prophylaxis, high risk: Lovenox 40 mg subcu daily Code: RANDY Disposition: to TCU on 04/20 if he remains stable.
[2023-04-20 08:43] VITALS: BP 125/70; PULSE 88; RESP 16; TEMP 36.9; O2SAT 96
[2023-04-20] MEDS: Gabapentin 100 MG Capsule PO (08:59)
[2023-04-20] MEDS: Aspirin E.C. 81 MG Tablet PO (08:59)
[2023-04-20] MEDS: buPROPion (SR) 100 MG TABLET.SA PO (08:59)
[2023-04-20] MEDS: Tolterodine Tartrate 2 MG CAP.SA PO (09:00)
[2023-04-20] MEDS: Enoxaparin 40 MG/0.4 ML Syringe SC (09:00)
[2023-04-20] MEDS: Finasteride 5 MG Tablet PO (09:01)
[2023-04-20] MEDS: Isosorbide Mononitrate 60 MG Tablet PO (09:02)
[2023-04-20] MEDS: Atenolol 25 MG Tablet 12.5 MG PO (09:02)
--- NOTE | 2023-04-20 09:57 | PCM.TXEXTCAR ---
Diet Diet Order/Speech Therapy: 04/17/23 15:55 Diet: Regular - General Food consistency:: Regular Liquid Consistency:: Regular/Thin Routine Orders/Code Status Code Status: DNRCC-A Wound(s) Left elbow: Wound Type: Abrasion Right madden: Wound Type: Abrasion Left knee: Wound Type: Abrasion groin: Wound Type: rash Therapies Weight Bearing: Non weight bearing Extremity Affected:: Right Upper (right wrist) Physical Therapy: Eval and Treat Occupational Therapy: Eval and Treat Problem/Diagnosis (1) UTI (urinary tract infection): Status: Acute Code(s): N39.0 - Urinary tract infection, site not specified Plan: UA w + Nitrates, 500 LE, 25-50 WBC and 1+ bacteria. (Yeast likely contaminant and not a true infections) Abx w Ceftriaxone, will change levofloxacin for 4 more doses. UCx Seratia marcescens resistant to cefazolin and nitrofurantoin. (2) Debility: Status: Acute Code(s): R53.81 - Other malaise Plan: Acute on chronic worsening. Patient with frequent falls. Likely a combination of issues: baseline poor performance status + OA + dementia + UTI + medications TCU 04/20 (3) Cognitive impairment: Status: Acute Code(s): R41.89 - Other symptoms and signs involving cognitive functions and awareness Plan: Unclear if MCI v dementia v polypharmacy. Pt has been taking buprenorphine for some time, so will not stop due to concerns for withdrawal. Decrease gabapentin from 600 TID to 100 TID DC baclofen May benefit from Dementia evaluation as outpt. (4) Chronic pain: Status: Chronic Code(s): G89.29 - Other chronic pain Plan: Reviewed OARRS: pt receives buprenorphine patch, gabapentin Given falls and concern for MCI/dementia/polypharmacy: Pt has been taking buprenorphine for some time, so will not stop due to concerns for withdrawal. Decrease gabapentin from 600 TID to 100 TID schedule acetaminophen (5) Ulnar fracture: Status: Acute Code(s): S52.209A - Unspecified fracture of shaft of unspecified ulna, initial encounter for closed fracture Plan: styloid fracture. no radial fracture s/p fall. non-displaced splint and sling placed in ED follow up with orthopaedics as outpt (6) Abrasion forearm: Status: Acute Code(s): S50.819A - Abrasion of unspecified forearm, initial encounter Plan: Abrasion on the left elbow, acute nondisplaced ulnar styloid fracture with soft tissue swelling, bilateral lower extremity bruise: Patient had multiple imaging including CT head, forearm and elbow x-ray. Venous duplex of LUE was also done which was negative for acute DVT. PT and OT. There is also redness pain and tender probably due to fall, cellulitis less likely but patient is on IV antibiotic (7) Vitamin D deficiency: Status: Acute Code(s): E55.9 - Vitamin D deficiency, unspecified Plan: start ergocalciferol 50k units for 8 weeks. Plan Chronic conditions: Colon cancer status post total colectomy, ileostomy status postchemotherapy, prostate cancer status post radiotherapy : No acute issues. Ileostomy stoma is healthy. Stoma dressing. Coronary artery disease s/p angioplasty of left circumflex in 1993 which was totally occluded. Last echo in January 2022 reported EF 60% with stage II diastolic dysfunction, trivial AI. Pharmacological myocardial nuclear stress test in January 2020 reported normal. Continue Atenolol, isosorbide dyslipidemia: BPH: continue tamsulosin VTE prophylaxis, high risk: Lovenox 40 mg subcu daily Code: VICKICA Disposition: to TCU on 04/20 if he remains stable. Allergies/Procedures Done in Hospital Allergies No Known Allergies Allergy (Verified 04/17/23 16:02) Procedures: None Type of Care/Length of Stay Estimated LOS: Convalescent Care Less Than 30 days Type of Care Needed: Skilled Rehab Potential: Good Prognosis: Good Additional Orders/Day of Discharge Day of Discharge: 04/20/23 Discharge Plan Admission Admit Date/Time: 04/17/23 15:05 Primary Reason for Your Visit: debility. UTI Attending Provider: Alvaro Bernardo Primary Care Provider: Vishal Antonio Consulting Providers: Arnold Garsia Discharge Orders/Prescriptions Prescriptions: New acetaminophen 500 mg Tablet 1,000 mg PO Q8 Qty: 0 0RF ergocalciferol (vitamin D2) [Vitamin D2] 1,250 mcg (50,000 unit) Capsule 1,250 mcg PO Q7D Qty: 0 0RF hydroxyzine pamoate 25 mg Capsule 12.5 mg PO TID PRN (Reason: anxiety) Qty: 0 0RF gabapentin 100 mg Capsule 100 mg PO TIDCM Qty: 0 0RF levofloxacin 750 mg Tablet 750 mg PO DAILY@0600 Qty: 0 0RF Daily Fiber (psyllium-aspart) 3 gram Powder In Packet 1 packet PO DAILY PRN (Reason: loose stools) Qty: 0 0RF Continued finasteride [Proscar] 5 mg tablet 5 mg PO DAILY aspirin [Adult Low Dose Aspirin] 81 mg tablet,delayed release (DR/EC) 81 mg PO DAILY tamsulosin 0.4 mg capsule 0.4 mg PO QHS atenolol 25 mg tablet 12.5 mg PO QDAY bupropion HCl 100 mg tablet sustained-release 12 hr 100 mg PO BID oxybutynin chloride 10 mg tablet extended release 24hr 10 mg PO DAILY buprenorphine 10 mcg/hour patch weekly 1 patch transdermal FR nitroglycerin 0.4 mg tablet, sublingual 0.4 mg SL Q5M PRN (Reason: Chest Pain) Qty: 25 2RF isosorbide mononitrate 60 mg tablet extended release 24 hr 60 mg PO DAILY Qty: 90 3RF Discontinued gabapentin 300 mg capsule 600 mg PO BID 30 Days Qty: 120 lorazepam [Ativan] 1 mg tablet 1 mg PO TID PRN (Reason: anxiety) Qty: 10 0RF hydroxyzine HCl 25 mg tablet 25 mg PO TID PRN (Reason: anxiety) baclofen 5 mg tablet 5 mg PO QHS Referrals / Follow Up: [facility] [Provider Group] - Within 2 Weeks Vishal Antonio MD [Primary Care Provider] - Within 2 Weeks Disposition Disposition (needs filled in before D/C Order can be placed): Care Home Facility (1) UTI (urinary tract infection) Qualifiers: Urinary tract infection type: acute cystitis Hematuria presence: without hematuria Qualified Code(s): N30.00 - Acute cystitis without hematuria (4) Chronic pain Qualifiers: Chronic pain type: chronic pain syndrome Qualified Code(s): G89.4 - Chronic pain syndrome (5) Ulnar fracture Qualifiers: Encounter type: initial encounter Ulna location: distal Fracture type: closed Fracture morphology: unspecified fracture morphology Laterality: left Qualified Code(s): S52.602A - Unspecified fracture of lower end of left ulna, initial encounter for closed fracture (6) Abrasion forearm Qualifiers: Encounter type: initial encounter Laterality: left Qualified Code(s): S50.812A - Abrasion of left forearm, initial encounter
--- NOTE | 2023-04-20 10:51 | DS.PCM_ITS ---
Providers Date of Admission: 04/17/23 Primary Care Physician: Dr. Vishal Antonio MD Reason For Visit: RUL SWELLING Diagnosis Discharge Diagnosis (1) UTI (urinary tract infection): Status: Acute Code(s): N39.0 - Urinary tract infection, site not specified Qualifiers: Urinary tract infection type: acute cystitis Hematuria presence: without hematuria Qualified Code(s): N30.00 - Acute cystitis without hematuria Plan: UA w + Nitrates, 500 LE, 25-50 WBC and 1+ bacteria. (Yeast likely contaminant and not a true infections) Abx w Ceftriaxone, will change levofloxacin for 4 more doses. UCx Seratia marcescens resistant to cefazolin and nitrofurantoin. (2) Debility: Status: Acute Code(s): R53.81 - Other malaise Plan: Acute on chronic worsening. Patient with frequent falls. Likely a combination of issues: baseline poor performance status + OA + dementia + UTI + medications TCU 04/20 (3) Cognitive impairment: Status: Acute Code(s): R41.89 - Other symptoms and signs involving cognitive functions and awareness Plan: Unclear if MCI v dementia v polypharmacy. Pt has been taking buprenorphine for some time, so will not stop due to concerns for withdrawal. Decrease gabapentin from 600 TID to 100 TID DC baclofen May benefit from Dementia evaluation as outpt. (4) Chronic pain: Status: Chronic Code(s): G89.29 - Other chronic pain Qualifiers: Chronic pain type: chronic pain syndrome Qualified Code(s): G89.4 - Chronic pain syndrome Plan: Reviewed OARRS: pt receives buprenorphine patch, gabapentin Given falls and concern for MCI/dementia/polypharmacy: Pt has been taking buprenorphine for some time, so will not stop due to concerns for withdrawal. Decrease gabapentin from 600 TID to 100 TID schedule acetaminophen (5) Ulnar fracture: Status: Acute Code(s): S52.209A - Unspecified fracture of shaft of unspecified ulna, initial encounter for closed fracture Qualifiers: Encounter type: initial encounter Ulna location: distal Fracture type: closed Fracture morphology: unspecified fracture morphology Laterality: left Qualified Code(s): S52.602A - Unspecified fracture of lower end of left ulna, initial encounter for closed fracture Plan: styloid fracture. no radial fracture s/p fall. non-displaced splint and sling placed in ED follow up with orthopaedics as outpt (6) Abrasion forearm: Status: Acute Code(s): S50.819A - Abrasion of unspecified forearm, initial encounter Qualifiers: Encounter type: initial encounter Laterality: left Qualified Code(s): S50.812A - Abrasion of left forearm, initial encounter Plan: Abrasion on the left elbow, acute nondisplaced ulnar styloid fracture with soft tissue swelling, bilateral lower extremity bruise: Patient had multiple imaging including CT head, forearm and elbow x-ray. Venous duplex of LUE was also done which was negative for acute DVT. PT and OT. There is also redness pain and tender probably due to fall, cellulitis less likely but patient is on IV antibiotic (7) Vitamin D deficiency: Status: Acute Code(s): E55.9 - Vitamin D deficiency, unspecified Plan: start ergocalciferol 50k units for 8 weeks. Plan Chronic conditions: * Colon cancer status post total colectomy, ileostomy status postchemotherapy, prostate cancer status post radiotherapy : No acute issues. Ileostomy stoma is healthy. Stoma dressing. * Coronary artery disease s/p angioplasty of left circumflex in 1993 which was totally occluded. Last echo in January 2022 reported EF 60% with stage II diastolic dysfunction, trivial AI. Pharmacological myocardial nuclear stress test in January 2020 reported normal. Continue Atenolol, isosorbide * dyslipidemia: * BPH: continue tamsulosin VTE prophylaxis, high risk: Lovenox 40 mg subcu daily Code: RANDY Disposition: to TCU on 04/20 if he remains stable. Medications at Discharge Home Medications finasteride 5 mg tablet (Proscar) 5 mg PO DAILY prostate 01/27/18 aspirin 81 mg tablet,delayed release (Adult Low Dose Aspirin) 81 mg PO DAILY heart health 07/30/18 nitroglycerin 0.4 mg sublingual tablet 0.4 mg sublingual Q5M PRN Chest Pain #25 tabs 05/11/21 tamsulosin 0.4 mg capsule 0.4 mg PO QHS prostate 10/21/21 atenolol 25 mg tablet 12.5 mg PO QDAY blood pressure 07/15/22 isosorbide mononitrate 60 mg tablet,extended release 24 hr 60 mg PO DAILY heart #90 tabs 01/16/23 buprenorphine 10 mcg/hour weekly transdermal patch 1 patch transdermal FR 04/17/23 bupropion HCl 100 mg tablet,12 hr sustained-release 100 mg PO BID depression 04/17/23 oxybutynin chloride 10 mg tablet,extended release 24 hr 10 mg PO DAILY overactive bladder 04/17/23 acetaminophen 500 mg tablet 1,000 mg (2 x 500 mg) PO Q8 #0 tabs 04/20/23 ergocalciferol (vitamin D2) 1,250 mcg (50,000 unit) capsule (Vitamin D2) 1,250 mcg PO Q7D #0 caps 04/20/23 gabapentin 100 mg capsule 100 mg PO TIDCM #0 caps 04/20/23 hydroxyzine pamoate 25 mg capsule 12.5 mg (1/2 x 25 mg) PO TID PRN anxiety #0 caps 04/20/23 levofloxacin 750 mg tablet 750 mg PO DAILY@0600 #0 tabs 04/20/23 psyllium husk (aspartame) 3 gram oral powder packet (Daily Fiber (psyllium- aspartame)) 1 packet PO DAILY PRN loose stools #0 ea 04/20/23 Hospital Course Operations None Procedures None Summary of Care Provided Minutes Spent on Discharge: 32 Weight / BMI Weight Weight: 82.735 kg Body Mass Index (BMI) 27.7 ABG / Lab / Microbiology Data 04/18/23 05:55 04/18/23 05:55 Microbiology: Microbiology 04/17/23 11:10 Urine, Clean Catch Urine Culture - Final Serratia marcescens D/C Instructions Discharge Diet: Low fat / Low cholesterol Meaningful Use Info Meaningful Use Diagnoses (Choose all that apply): None applicable Discharge Plan Admission Admit Date/Time: 04/17/23 15:05 Primary Reason for Your Visit: debility. UTI Attending Provider: Alvaro Bernardo Primary Care Provider: Vishal Antonio Consulting Providers: Arnold Garsia Discharge Orders/Prescriptions Prescriptions: New acetaminophen 500 mg Tablet 1,000 mg PO Q8 Qty: 0 0RF ergocalciferol (vitamin D2) [Vitamin D2] 1,250 mcg (50,000 unit) Capsule 1,250 mcg PO Q7D Qty: 0 0RF hydroxyzine pamoate 25 mg Capsule 12.5 mg PO TID PRN (Reason: anxiety) Qty: 0 0RF gabapentin 100 mg Capsule 100 mg PO TIDCM Qty: 0 0RF levofloxacin 750 mg Tablet 750 mg PO DAILY@0600 Qty: 0 0RF Daily Fiber (psyllium-aspart) 3 gram Powder In Packet 1 packet PO DAILY PRN (Reason: loose stools) Qty: 0 0RF Continued finasteride [Proscar] 5 mg tablet 5 mg PO DAILY aspirin [Adult Low Dose Aspirin] 81 mg tablet,delayed release (DR/EC) 81 mg PO DAILY tamsulosin 0.4 mg capsule 0.4 mg PO QHS atenolol 25 mg tablet 12.5 mg PO QDAY bupropion HCl 100 mg tablet sustained-release 12 hr 100 mg PO BID oxybutynin chloride 10 mg tablet extended release 24hr 10 mg PO DAILY buprenorphine 10 mcg/hour patch weekly 1 patch transdermal FR nitroglycerin 0.4 mg tablet, sublingual 0.4 mg SL Q5M PRN (Reason: Chest Pain) Qty: 25 2RF isosorbide mononitrate 60 mg tablet extended release 24 hr 60 mg PO DAILY Qty: 90 3RF Discontinued gabapentin 300 mg capsule 600 mg PO BID 30 Days Qty: 120 lorazepam [Ativan] 1 mg tablet 1 mg PO TID PRN (Reason: anxiety) Qty: 10 0RF hydroxyzine HCl 25 mg tablet 25 mg PO TID PRN (Reason: anxiety) baclofen 5 mg tablet 5 mg PO QHS Referrals / Follow Up: [facility] [Provider Group] - Within 2 Weeks Vishal Antonio MD [Primary Care Provider] - Within 2 Weeks Disposition Disposition (needs filled in before D/C Order can be placed): Care Home Facility Charges/Coding Visit Charges Inpatient E&M: 49997 Disch Hosp >30min
== END 2023-04-20 11:09 | disposition skilled nursing facility (03) | DRG 690 ==
LOC: ED 13:02 → MS3 16:32
PROVIDERS: Internal Medicine; Admitting Provider Internal Medicine; Emergency Provider Emergency Medicine; PCP Family Medicine
DX: N30.00 Acute cystitis without hematuria (principal); S52.615A Nondisplaced fracture of left ulna styloid process, initial encounter for closed fracture; E55.9 Vitamin D deficiency, unspecified; F03.90 Unspecified dementia, unspecified severity, without behavioral disturbance, psychotic disturbance, mood disturbance, and anxiety; Z93.2 Ileostomy status; S50.812A Abrasion of left forearm, initial encounter; E78.00 Pure hypercholesterolemia, unspecified; I10 Essential (primary) hypertension; I25.10 Atherosclerotic heart disease of native coronary artery without angina pectoris; W18.39XA Other fall on same level, initial encounter; F32.A Depression, unspecified; I25.2 Old myocardial infarction; M16.11 Unilateral primary osteoarthritis, right hip; G89.4 Chronic pain syndrome; N40.0 Benign prostatic hyperplasia without lower urinary tract symptoms; F10.90 Alcohol use, unspecified, uncomplicated; T40.495A Adverse effect of other synthetic narcotics, initial encounter; T42.6X5A Adverse effect of other antiepileptic and sedative-hypnotic drugs, initial encounter; T42.8X5A Adverse effect of antiparkinsonism drugs and other central muscle-tone depressants, initial encounter; R53.81 Other malaise; R29.6 Repeated falls; Z66 Do not resuscitate; Z90.49 Acquired absence of other specified parts of digestive tract; Z79.82 Long term (current) use of aspirin; Z79.899 Other long term (current) drug therapy; Z85.038 Personal history of other malignant neoplasm of large intestine; Z85.46 Personal history of malignant neoplasm of prostate; Z92.21 Personal history of antineoplastic chemotherapy
CPT/HCPCS: 36415; 70450; 71046; 73080; 73090; 80048; 81001; 82306; 82550; 83735; 84100; 84145; 85025; 87077; 87086; 87088; 87186; 93971; 94668; 97110; 97116; 97162; 97166; 97530; 97535; 99285; J7030; J7050; A4216

== ENCOUNTER 2023-04-20 11:23 | Inpatient (IN) | payer MEDICARE, BC, SELFPAY ==
[2023-04-20 11:40] VITALS: BP 111/69; PULSE 86; RESP 18; TEMP 37.4; O2SAT 95; BMI 28.3
[2023-04-20] MEDS: Acetaminophen 500 MG Tablet 1000 MG PO ×2 (13:08→23:46)
[2023-04-20] MEDS: Gabapentin 100 MG Capsule PO ×2 (13:08→17:30)
[2023-04-20 16:11] VITALS: PULSE 86; RESP 18; O2SAT 96
[2023-04-20] MEDS: Nystatin Powder 15gm Bottle 1 APPLIC TOPICAL (17:30)
[2023-04-20] MEDS: buPROPion (SR) 100 MG TABLET.SA PO (17:30)
[2023-04-20] MEDS: Menthol/Lanolin/Calamine/Znox 113 GM Tube 1 APPLIC TOPICAL (17:30)
--- NOTE | 2023-04-20 19:07 | NURSING ---
nicotine patch ordered per pt request. pt daughter took home chewing tobacco.
--- NOTE | 2023-04-20 19:59 | HP.PCM_ITS ---
HPI - General General Date of Admission: 04/20/23 Date of Service: 04/21/23 Chief Complaint: Here for rehabilitation. HPI Narrative 04/17/2023 HOWIE MAZNO, is a 83 Male who presents to [facility] Emergency Department with fall. Frequent falls, left upper extremity pain, swelling. Chronic gait/balance issues, he has cane and walker at home which he does not use. Multiple falls in 1 week. Left upper extremity pain, swelling, redness around elbow, left leg swollen. Feels congested in AM. WBC 13.5, Urinalysis consistent with urinary tract infection, Ceftriaxone given, left upper extremity cellulitis. CT head negative. X-ray showed left styloid fracture, left upper extremity sling applied. 04/17/2023 Admit to Hospital. PT/OT for falls, gait instability. Ceftriaxone IV for urinary tract infection, urine culture pending. Ceftriaxone IV for left upper extremity cellulitis. Hold Lorazepam, decrease Hydroxyzine for memory issues. 04/18/2023 Feels well. Urine culture growing yeast, on ceftriaxone. PT/OT for SNF. MCI versus dementia versus polypharmacy, probably polypharmacy. Left upper extremity sling for left elbow fracture. Doppler ultrasound left upper extremity negative DVT. 04/19/2023 Cough. Change Ceftriaxone to Levaquin for 4 more doses for Serratia Marcescens urinary tract infection. Decrease gabapentin to 100mg tid, Stop Baclofen for cognitive impairment. 04/20/2023 Admit to TCU with debility, here for rehabilitation, strengthening, prior to discharge home alone. [facility] Medical History (Updated 04/20/23 @ 20:[address] Parth Abel MD) Adenocarcinoma Alcohol use Ambulates with cane Anxiety Arthritis Atherosclerosis of coronary artery of [place] heart without angina pectoris Back pain BPH (benign prostatic hyperplasia) Bright's disease Cancer Cardiology follow-up encounter Chewing tobacco nicotine dependence Chronic pain Colon cancer Depression Easy bruising Essential (primary) hypertension Fall Gait instability High cholesterol History of echocardiogram History of heart attack History of pain when walking History of prostate cancer History of radiation therapy History of stress test HLD (hyperlipidemia) Old inferior wall myocardial infarction Smoker Wears dentures Wears glasses Wears hearing aid Home Medications finasteride 5 mg tablet (Proscar) 5 mg PO DAILY prostate 01/27/18 [History Last Taken 04/20/23] aspirin 81 mg tablet,delayed release (Adult Low Dose Aspirin) 81 mg PO DAILY heart health 07/30/18 [History Last Taken 04/20/23] nitroglycerin 0.4 mg sublingual tablet 0.4 mg sublingual Q5M PRN Chest Pain #25 tabs 05/11/21 [Rx Last Taken Unknown] tamsulosin 0.4 mg capsule 0.4 mg PO QHS prostate 10/21/21 [History Last Taken 04/19/23] atenolol 25 mg tablet 12.5 mg PO QDAY blood pressure 07/15/22 [History Last Taken 04/20/23] isosorbide mononitrate 60 mg tablet,extended release 24 hr 60 mg PO DAILY heart #90 tabs 01/16/23 [Rx Last Taken 04/20/23] buprenorphine 10 mcg/hour weekly transdermal patch 1 patch transdermal FR pain 04/17/23 [History Last Taken 04/18/23] bupropion HCl 100 mg tablet,12 hr sustained-release 100 mg PO BID depression 04/17/23 [History Last Taken 04/20/23] oxybutynin chloride 10 mg tablet,extended release 24 hr 10 mg PO DAILY overa ctive bladder 04/17/23 [History Last Taken 04/20/23] acetaminophen 500 mg tablet 1,000 mg (2 x 500 mg) PO Q8 inflammati #0 tabs 04/20/23 [Rx Last Taken 04/20/23] ergocalciferol (vitamin D2) 1,250 mcg (50,000 unit) capsule (Vitamin D2) 1,250 mcg PO Q7D bones #0 caps 04/20/23 [Rx Last Taken 04/18/23] gabapentin 100 mg capsule 100 mg PO TIDCM neuropathy #0 caps 04/20/23 [Rx Last Taken 04/20/23] hydroxyzine pamoate 25 mg capsule 12.5 mg (1/2 x 25 mg) PO TID PRN anxiety #0 caps 04/20/23 [Rx Last Taken Unknown] levofloxacin 750 mg tablet 750 mg PO DAILY@0600 antibiotic #0 tabs 04/20/23 [Rx Last Taken 04/20/23] psyllium husk (aspartame) 3 gram oral powder packet (Daily Fiber (psyllium- aspartame)) 1 packet PO DAILY PRN loose stools #0 ea 04/20/23 [Rx Last Taken 04/18/23] Allergy/AdvReac Type Severity Reaction Status Date / Time No Known Allergies Allergy Verified 04/17/23 16:02 Family History Father Cancer skin cancer Mother Myocardial infarction Diabetes Other Fall Surgical History H/O percutaneous transluminal coronary angioplasty (11/13/93) History of angioplasty History of colostomy History of cystoscopy History of inguinal hernia repair, bilateral History of left heart catheterization (02/24/02) History of rotator cuff surgery Hx of appendectomy Hx of colectomy Status post trigger finger release Social History (Updated 04/20/23 @ 20:[address] Parth Abel MD) household members: none Smoking Status: Never smoker alcohol intake: current alcohol intake frequency: a few times a month Alcohol type: hard liquor substance use type: does not use caffeine: Yes Type: coffee Number of servings: 1 ROS Constitutional Constitutional: Denies chills, fever(s) or weight gain ENT HEENT: Denies headache(s), nasal congestion or nasal discharge Cardiovascular Cardiovascular: Denies chest pain or palpitations Respiratory/Chest Respiratory/Chest: Denies cough, excessive phlegm production or shortness of breath with exertion Gastrointestinal Gastrointestinal: Denies abdominal pain, nausea or vomiting Genitourinary Genitourinary: Denies dysuria Musculoskeletal Musculoskeletal: Denies joint pain or joint swelling Integumentary Integumentary: Denies rash or wounds Neurologic Neurologic: Denies focal weakness, numbness or tingling Psychiatric Psychiatric: Denies anxiety, auditory hallucinations, depression, homicidal ideation or suicidal ideation Vital Signs Vital Signs Vital Signs: 04/20/23 11:40 04/20/23 16:11 Temperature 99.4 F H Temperature Source Temporal Pulse Rate 86 86 Pulse Rhythm Regular Pulse Strength Normal (2+) Respiratory Rate 18 18 Respiratory Effort Normal Respiratory Depth Normal Respiratory Pattern Normal Blood Pressure 111/69 Blood Pressure Mean 83 Blood Pressure Source Monitor Blood Pressure Position Semi-Fowlers Blood Pressure Location Right Arm Pulse Ox 95 96 Oxygen Delivery Method Room Air Room Air Weight Weight: 82.185 kg Body Mass Index (BMI) 28.3 Physical Exam Const alert General Appearance: cooperative HEENT normocephalic Eyes PERRL and EOMs intact bilaterally Neck supple, no JVD and no carotid bruits Resp normal respiratory effort, normal air movement and clear to auscultation bilaterally Cardio regular rate and regular rhythm GI normal to inspection, nondistended, normoactive bowel sounds, non-tender and no n-distended Extremity normal capillary refill Extremity Narrative: LUE sling, Left elbow warm, red, tender, swollen. General Extremity: Negative for edema Skin no rashes or lesions noted General Skin Exam: no breakdown Psych affect normal Appearance: appropriate Results Lab / Micro Data 04/21/23 05:18 04/21/23 05:18 Assessment & Plan Assessment/Plan (1) Debility: (2) Encephalopathy: (3) Left elbow fracture: (4) UTI (urinary tract infection): QUALIFIERS: Hematuria presence: without hematuria Urinary tract infection type: acute cystitis Qualified Code(s): N30.00 - Acute cystitis without hematuria (5) History of colon cancer: (6) History of prostate cancer: (7) Coronary artery disease: (8) Hypertension: (9) HLD (hyperlipidemia): QUALIFIERS: Hyperlipidemia type: pure hypercholesterolemia Qualified Code(s): E78.00 - Pure hypercholesterolemia, unspecified; E78.0 - Pure hypercholesterolemia (10) Muscle spasm: (11) Neuropathic pain: (12) Opioid dependence: (13) Overactive bladder: PLAN: Plan 83 year old male with below past medical history hospitalized for fall, left elbow fracture, complicated by encephalopathy secondary to urinary tract infection, admitted to TCU with debility, here for rehabilitation, strengthening, prior to discharge home alone. * Debility - PT/OT. * Pain - Tylenol 1000mg q8. * Bowel - senna/colace 1 tablet bid, Magnesium citrate 300ml daily prn, Metamucil 1 packet daily prn. * Adult immunization - Administer pneumonia vaccine, covid19 vaccine, flu vaccine as appropriate. * DVT prophylaxis - Lovenox 40mg sc daily. * Coronary artery disease - Atenolol 12.5mg daily, Imdur 60mg daily, Aspirin 81mg daily, NTG 0.4mg sl q5m prn. * Chronic pain - Butrans 10mcg/hour 1 patch td qweek. * Depression - Bupropion 100mg bid, stable chronic forms examiner use, GDR not recommended. * Vitamin D deficiency - D 1.25mg qweek. * BPH - Finasteride 5mg daily, Tamsulosin 0.4mg daily. * Neuropathic pain - Gabapentin 100mg tid. * Anxiety - Hydroxyzine 10mg tid prn. * S. Marcescens urinary tract infection - Levaquin 750mg daily thru 04/24/2023. * Cellulitis left elbow - Rx Keflex 500mg qid x 7 days. * Skin irritation - Calmoseptine topical bid. * Nicotine dependence - Nicotine 21mg patch 1 patch td daily * Tinea Corporis - Nystatin powder topical bid. * Overactive bladder - Detrol 2mg daily.
--- NOTE | 2023-04-20 20:40 | NURSING ---
Pt completes an unassisted transfer. Gait unsteady. Using straight cane. Sling in place to ESTELITA. Is not consistent w/ maintaining NWB status. Irritable at times. Found a can of chewing tobacco in room. Informed pt the hospital is a tobacco free campus. Becomes increasingly irritable. Chewing tobacco placed in med room. Placed in recliner chair and positioned for comfort. Call light w/ in reach. Will continue to monitor.
[2023-04-20] MEDS: Tamsulosin HCl 0.4 MG Capsule PO (23:46)
[2023-04-21] MEDS: Finasteride 5 MG Tablet PO (05:51)
[2023-04-21] MEDS: buPROPion (SR) 100 MG TABLET.SA PO ×2 (05:51→17:25)
[2023-04-21] MEDS: levoFLOXacin 750 MG Tablet PO (05:51)
[2023-04-21] MEDS: Menthol/Lanolin/Calamine/Znox 113 GM Tube 1 APPLIC TOPICAL ×2 (05:51→17:25)
[2023-04-21] MEDS: Tolterodine Tartrate 2 MG CAP.SA PO (05:51)
[2023-04-21] MEDS: Acetaminophen 500 MG Tablet 1000 MG PO ×3 (05:51→21:13)
[2023-04-21 05:52] LABS: Absolute Lymphocyte Count 0.93 X10^3/uL (0.83-4.51); Basophil# 0.05 X10^3/uL; Basophil% 0.6 % (0-1); Eosinophil# 0.06 X10^3/uL; Eosinophils% 0.8 % (0-5); Hematocrit 31.9 % (40-54); Lymphocyte # 0.93 X10^3/ul (0.83-4.51); Lymphocyte % 11.8 % (19-41); Mean Corp Hgb Conc 31.3 g/dL (32-36); Mean Corpuscular Hgb 31.8 pg (27.0-32.0); Mean Corpuscular Volume 101.6 fL (80-94); Mean Platelet Vol. 9.2 fl (6.2-12.0); Monocyte% 8.9 % (0-10); NRBC Flagged by Analyzer 0 % (0-5); Neutrophil # 6.03 X10^3/uL (2.7-7.7); Neutrophil % 76.8 % (47-70); Platelet Count 204 K/mm3 (150-450); RBC Distribution Width CV 13.7 % (11.6-14.6); RBC Distribution Width SD 51.4 fl (35.1-43.9); Red Blood Count 3.14 M/mm3 (4.6-6.2); White Blood Count 7.9 K/mm3 (4.4-11.0)
[2023-04-21] MEDS: Nystatin Powder 15gm Bottle 1 APPLIC TOPICAL ×2 (05:52→17:25)
[2023-04-21] MEDS: Isosorbide Mononitrate 60 MG Tablet PO (05:52)
[2023-04-21] MEDS: Atenolol 25 MG Tablet 12.5 MG PO (05:53)
[2023-04-21] MEDS: Senna/Docusate Sodium 1 Tablet PO (05:54)
[2023-04-21] MEDS: Enoxaparin 40 MG/0.4 ML Syringe SC (05:54)
[2023-04-21 06:00] VITALS: BP 142/76; PULSE 84; RESP 18; TEMP 36.8; O2SAT 95
[2023-04-21 06:13] LABS: Anion Gap 6 (5-15); BUN 23 mg/dL (7-18); BUN/Creat Ratio 21.9 RATIO (10-20); Calcium,Total 8.9 mg/dL (8.5-10.1); Chloride 109 mmol/L (98-107); Creatinine, Serum 1.05 mg/dL (0.70-1.30); EST Glomerular Filtration Rate 72 mL/min (>60); Est Glom Filt Rate - Afr Amer 87 mL/min (>60); Estimated Creatinine Clearance 48.96 ml/min; Glucose 100 mg/dL (74-106); Potassium 3.7 mmol/L (3.5-5.1); Sodium Level 139 mmol/L (136-145)
[2023-04-21] MEDS: Aspirin E.C. 81 MG Tablet PO (08:50)
[2023-04-21] MEDS: Gabapentin 100 MG Capsule PO ×3 (08:51→17:25)
[2023-04-21 10:00] VITALS: PULSE 72; O2SAT 97
--- NOTE | 2023-04-21 10:52 | CASEMGMT ---
Social Work Met with patient to complete initial assessment. Introduced self and role. Verified contacts. Discussed code status and MOLST form. Pt confirms DNR-CCA, no intubation. MOLST placed in Dr folder. Educated to Medicare benefit. Encouraged to contact secondary insurance to ensure copay coverage - if not covered, $200/day copay. Pt's goal is to return home alone. SW will continue to follow for DC planning. Linda Muller, [employer] ANALYST
--- NOTE | 2023-04-21 12:18 | NURSING ---
Activity Coordinate Note; Activity Asst: complete Sam is independent in his choice of daily activities. He stated his daughter will visit with him and bring items from home if he needs them. He has a smartphone that he uses to talk on only. He will watch tv and mainly rest. He welcomes visit from the ribbon lap machine tender and therapy dog when available. Staff will remind Sam of daily activities and respect his right to say no.
[2023-04-21] MEDS: Cephalexin 500 MG Capsule PO ×2 (12:52→17:25)
[2023-04-21 14:32] VITALS: BP 104/49; PULSE 62; RESP 16; TEMP 36.2; O2SAT 97
[2023-04-21] MEDS: Tuberculin,Purif.prot.deriv. 50 TU/ML Vial 0.1 ML ID (15:17)
[2023-04-21] MEDS: Tamsulosin HCl 0.4 MG Capsule PO (21:13)
[2023-04-22] MEDS: Cephalexin 500 MG Capsule PO ×4 (00:06→17:15)
[2023-04-22 05:49] LABS: Hematocrit 32.5 % (40-54)
[2023-04-22] MEDS: buPROPion (SR) 100 MG TABLET.SA PO ×2 (06:15→17:15)
[2023-04-22] MEDS: Senna/Docusate Sodium 1 Tablet PO (06:15)
[2023-04-22] MEDS: levoFLOXacin 750 MG Tablet PO (06:15)
[2023-04-22] MEDS: Acetaminophen 500 MG Tablet 1000 MG PO ×3 (06:16→21:09)
[2023-04-22] MEDS: Isosorbide Mononitrate 60 MG Tablet PO (06:17)
[2023-04-22] MEDS: Tolterodine Tartrate 2 MG CAP.SA PO (06:17)
[2023-04-22] MEDS: Atenolol 25 MG Tablet 12.5 MG PO (06:17)
[2023-04-22] MEDS: Finasteride 5 MG Tablet PO (06:17)
[2023-04-22] MEDS: Nystatin Powder 15gm Bottle 1 APPLIC TOPICAL ×2 (06:23→17:15)
[2023-04-22] MEDS: Menthol/Lanolin/Calamine/Znox 113 GM Tube 1 APPLIC TOPICAL ×2 (06:23→17:15)
[2023-04-22] MEDS: Aspirin E.C. 81 MG Tablet PO (07:57)
[2023-04-22] MEDS: Gabapentin 100 MG Capsule PO ×3 (07:57→17:15)
[2023-04-22 09:42] VITALS: BMI 28.2
[2023-04-22 10:30] VITALS: BP 101/42; PULSE 57; RESP 16; TEMP 35.9; O2SAT 98
--- NOTE | 2023-04-22 15:32 | CHAPLAIN ---
Type of Pastoral Visit ___ Initial Visit _x__ Follow-up Visit ___ On-call Visit ___ General Patient Visit ___ Spiritual Assessment ___ Family Conference ___ Bereavement ___ Rapid Response ___ Code Blue ___ Other (describe below) Pastoral Care Referral From _x__ Patient ___ Family ___ Nurse ___ Physician ___ Electric Motor Control Assembler ___ Rouge Presser ___ Other (describe below) Sacrament/Intervention _x__ Active listening ___ Anointing ___ Church ___ Bereavement ___ Communion ___ Amparo exploration ___ ___ Life review _x__ Prayer ___ Reconciliation ___ Sacrament of Sick ___ Supportive presence ___ Wedding ___ Other (describe below) Pastoral Comments follow up visit to patient met last week in [facility]; pt is welcoming and begins to talk about family and progress in TCU; pt states satisfaction with his current situation; pt had his granddaughter bring some puzzle books so he has more to occupy himself now; pt welcomes presence and prayer for support
[2023-04-22 21:00] VITALS: BP 99/57; PULSE 70; RESP 16; TEMP 36.1; O2SAT 95
[2023-04-22] MEDS: Tamsulosin HCl 0.4 MG Capsule PO (21:09)
[2023-04-23] MEDS: Cephalexin 500 MG Capsule PO ×3 (00:19→17:27)
[2023-04-23] MEDS: Finasteride 5 MG Tablet PO (06:16)
[2023-04-23] MEDS: Senna/Docusate Sodium 1 Tablet PO (06:16)
[2023-04-23] MEDS: Atenolol 25 MG Tablet 12.5 MG PO (06:16)
[2023-04-23] MEDS: levoFLOXacin 750 MG Tablet PO (06:17)
[2023-04-23] MEDS: Acetaminophen 500 MG Tablet 1000 MG PO ×3 (06:17→22:09)
[2023-04-23] MEDS: Tolterodine Tartrate 2 MG CAP.SA PO (06:17)
[2023-04-23] MEDS: buPROPion (SR) 100 MG TABLET.SA PO ×2 (06:17→17:26)
[2023-04-23] MEDS: Isosorbide Mononitrate 60 MG Tablet PO (06:19)
[2023-04-23] MEDS: Nystatin Powder 15gm Bottle 1 APPLIC TOPICAL ×2 (06:19→17:30)
[2023-04-23] MEDS: Menthol/Lanolin/Calamine/Znox 113 GM Tube 1 APPLIC TOPICAL ×2 (06:19→17:29)
[2023-04-23] MEDS: Gabapentin 100 MG Capsule PO ×2 (08:11→17:26)
[2023-04-23] MEDS: Aspirin E.C. 81 MG Tablet PO (08:12)
--- NOTE | 2023-04-23 09:51 | PCM.PN.DRR ---
Documented by User: Cecelia Bains 04/23/23 10:34 TCU RX Drug Regimen Review Subjective/Objective Subjective/Objective: Subjective: TCU Admission. 83 YOM presented to the ER with a fall. Hospitalized for fall, left elbow fracture, complicated by encephalopathy secondary to urinary tract infection. Admitted to TCU with debility for strengthening and rehabilitation. Objective: Allergies No Known Allergies Allergy (Verified 04/17/23 16:02) Current Medications Generic Name Dose Route Start Last Admin Trade Name Freq PRN Reason Stop Dose Admin Acetaminophen 1,000 mg 04/20/23 14:00 04/23/23 06:17 Acetaminophen 500 Mg Tablet PO 1,000 mg Q8 DIANA Administration Aspirin 81 mg 04/21/23 08:00 04/23/23 08:12 Aspirin E.C. 81 Mg Tablet PO 81 mg DAILYCM DIANA Administration Atenolol 12.5 mg 04/21/23 06:00 04/23/23 06:16 Atenolol 25 Mg Tablet PO 12.5 mg DAILY DIANA Administration Buprenorphine 1 each 04/25/23 10:00 Buprenorphine 10mcg/Hr Patch.Tdwk TD Fr@1000 DIANA Bupropion HCl 100 mg 04/20/23 18:00 04/23/23 06:17 Bupropion (Sr) 100 Mg Tablet.Sa PO 100 mg BID DIANA Administration Calamine/Phenol 1 applic 04/20/23 18:00 04/23/23 06:19 Menthol/Lanolin/Calamine/Znox 113 Gm Tube TOPICAL 1 applic BID DIANA Administration Protocol Cephalexin 500 mg 04/21/23 12:00 04/23/23 06:17 Cephalexin 500 Mg Capsule PO 04/28/23 12:01 500 mg Q6 DIANA Administration Ergocalciferol 1.25 mg 04/25/23 06:00 Ergocalciferol 1.25 Mg (50, 000 Unit) Capsule PO Q7D DIANA Finasteride 5 mg 04/21/23 06:00 04/23/23 06:16 Finasteride 5 Mg Tablet PO 5 mg DAILY DIANA Administration Gabapentin 100 mg 04/20/23 12:45 04/23/23 08:11 Gabapentin 100 Mg Capsule PO 100 mg TIDCM DIANA Administration Hydroxyzine HCl 10 mg 04/20/23 14:28 Hydroxyzine 10 Mg Tablet PO TID PRN anxiety Isosorbide Mononitrate 60 mg 04/21/23 06:00 04/23/23 06:19 Isosorbide Mononitrate 60 Mg Tablet PO 60 mg DAILY DIANA Administration Levofloxacin 750 mg 04/21/23 06:00 04/23/23 06:17 Levofloxacin 750 Mg Tablet PO 04/24/23 06:01 750 mg DAILY DIANA Administration Magnesium Citrate 300 ml 04/20/23 20:16 Magnesium Citrate 300 Ml PO DAILY PRN Constipation Melatonin 6 mg 04/23/23 22:00 Melatonin 3 Mg Tablet PO QHS [facility] Nicotine 21 mg 04/21/23 06:00 04/23/23 06:17 Nicotine 21 Mg Patch TD 21 mg DAILY [facility] Administration Nitroglycerin 0.4 mg 04/20/23 11:56 Nitroglycerin (Inpatient Use) 0.4 Mg Tab.Subl SL Q5M PRN CARDIAC/CHEST PAIN Nystatin 1 applic 04/20/23 18:00 04/23/23 06:19 Nystatin Powder 15gm Bottle TOPICAL 1 applic BID [facility] Administration Protocol Psyllium Hydrophilic Mucilloid 1 packet 04/20/23 11:46 Psyllium 1 Packet PO DAILY PRN loose stools Senna/Docusate Sodium 1 tablet 04/20/23 20:30 04/23/23 06:16 Senna/Docusate Sodium 1 Tablet PO 1 tablet BID [facility] Administration Sodium Chloride 10 - 40 ml 04/20/23 13:12 0.9% Saline Lock 10 Ml Syringe IV UD PRN SALINE FLUSH Tamsulosin HCl 0.4 mg 04/20/23 22:00 04/22/23 21:09 Tamsulosin Hcl 0.4 Mg Capsule PO 0.4 mg QHS [facility] Administration Tolterodine Tartrate 2 mg 04/21/23 06:00 04/23/23 06:17 Tolterodine Tartrate 2 Mg Cap.Sa PO 2 mg DAILY [facility] Administration Tuberculin PPD 0.1 ml 04/28/23 10:00 Tuberculin,Purif.Prot.Deriv. 50 Tu/Ml Vial ID 04/28/23 10:01 X1 ONE Problem List (Updated 04/20/23 @ 20:[address] Parth Abel MD) Overactive bladder (Acute) Opioid dependence (Acute) Neuropathic pain (Acute) Muscle spasm (Acute) Hypertension (Chronic) Coronary artery disease (Acute) History of colon cancer (Acute) Left elbow fracture (Acute) Encephalopathy (Acute) Debility (Acute) UTI (urinary tract infection) (Acute) HLD (hyperlipidemia) (Chronic) History of prostate cancer (Chronic) Vital Signs Temp Pulse Resp BP Pulse Ox O2 Del Method 97.0 F L 70 16 99/57 L 95 Room Air 04/22/23 21:00 04/22/23 21:00 04/22/23 21:00 04/22/23 21:00 04/22/23 21:00 04/22/23 21:00 Oxygen Delivery Method Room Air Weight: 81.675 kg Body Mass Index (BMI) 28.2 Sodium 139 mmol/L (136-145) 04/21/23 05:18 Potassium 3.7 mmol/L (3.5-5.1) 04/21/23 05:18 Chloride 109 mmol/L (98-107) H 04/21/23 05:18 Carbon Dioxide 24.0 mmol/L (21.0-32.0) 04/21/23 05:18 Anion Gap 6 (5-15) 04/21/23 05:18 BUN 23 mg/dL (7-18) H 04/21/23 05:18 Creatinine 1.05 mg/dL (0.70-1.30) 04/21/23 05:18 Est GFR (MDRD) Af Amer 87 mL/min (>60) 04/21/23 05:18 Est GFR (MDRD) Non-Af 72 mL/min (>60) 04/21/23 05:18 BUN/Creatinine Ratio 21.9 RATIO (10-20) H 04/21/23 05:18 Glucose 100 mg/dL (74-106) 04/21/23 05:18 Assessment/Plan: 1. Pain: acetaminophen 1000mg PO Q8 and buprenorphine 10mcg/hr patch topical weekly. Please continue to monitor for increased pain, constipation, rash, and respiratory depression. 2. Bowel: senna/docusate 1T PO BID, magnesium citrate 300mL PO daily PRN constipation and Metamucil 1packet PO daily PRN constipation. Resident has not used any PRN doses. Last documented bowel movement 04/18/23. Resident has refused 3/6 doses of senna/docusate. Would not change to PRN as patient is already on Butrans patch and has not had a BM since 04/18. Please encourage resident to take senna/docusate and give PRN doses. 3. CAD: atenolol 12.5mg PO daily, isosorbide mononitrate 60mg PO daily, aspirin 81mg PO daily and nitroglycerin 0.4mg SL Q5M PRN pain. Resident has not had any PRN doses. Please continue to monitor HR (last 70), BP (last 99/57), chest pain, headache, S/S of bleeding, hemoglobin (last 11g/dL) and PRN usage. 4. S. marcescens UTI: levofloxacin 750mg PO daily thru 04/24/23. Please continue to monitor for S/S of infection, renal function, tendon pain (tendonitis/tendon rupture black box warning) and diarrhea. 5. Cellulitis (left elbow): cephalexin 500mg PO Q12 thru 04/28/23. Frequency changed to q12 due to CrCl of 49 mL/min. Please continue to monitor for S/S of infection, renal function and diarrhea. 6. BPH: finasteride 5mg PO daily and tamsulosin 0.4mg PO QHS. Please continue to monitor BP, rash and urine flow. 7. Overactive bladder: tolterodine 2mg PO daily. Please continue to monitor for S/S of overactive bladder, delirium/dementia (BEERs medication) and dry mouth. 8. Nicotine dependency: nicotine patch 21mg topical daily. Please continue to monitor for nicotine cravings and rash. 9. Vitamin D deficiency: ergocalciferol 1.25mg PO weekly. Please continue to monitor vitamin D level (last 04/18/23). Assessment/Plan for indications treated with psychotropic medications: 1. Depression: bupropion SR 100mg PO BID. Please see physician note regarding GDR. Please continue to monitor for suicidal ideation (black box warning), dry mouth, weight gain and constipation. 2. Anxiety: hydroxyzine 10mg PO TID PRN anxiety. Resident has not required any doses. GDR likely not appropriate as this medication is PRN and resident has not had any doses. Please continue to monitor for S/S of anxiety and PRN usage. 3. Neuropathic pain: gabapentin 100mg PO TID. GDR not appropriate as this medication is being used for neuropathic pain. However, please consider changing frequency to BID as the CrCl is 49 mL/min. Thanks. Please continue to monitor for falls/fractures (BEERs medication), renal function and confusion. Medical chart and medication regimen reviewed. The following medication irregularities or issues were identified: *1. Gabapentin 100mg PO TID. Please consider changing frequency to BID as the CrCl is 49 mL/min. Thanks. *2. Melatonin 6mg PO QHS. I did not see a documented indication for this medication. Please consider adding the indication. Thanks. Date Date of Note:: 04/23/23 Documented by User: Dr. Parth Abel MD 04/23/23 11:39 TCU RX Drug Regimen Review Provider Comments Provider responsibility Provider Comments to Recommendations by Pharmacy: Agree
--- NOTE | 2023-04-23 11:03 | CASEMGMT ---
Social Work IDT met with patient for care plan meeting. Discussed patient's progress in PT/OT/ST/SN. Educated to Medicare benefit. Encouraged to contact secondary insurance to ensure copay coverage. Pt lives at home alone and has no local support. Pt has life alert. SW offered and provided resources for MOW and PRODUCT DEVELOPMENT CARPENTER. SW to continue to follow for DC planning. KANCHAN SaldañaW
[2023-04-23 14:38] VITALS: BP 145/69; PULSE 66; RESP 16; TEMP 36; O2SAT 97
--- NOTE | 2023-04-23 16:12 | NURSING ---
While walking patient to the bathroom patient exhibited sexual behavior physically and verbally to this SHIRRING MACHINE OPERATOR. SHIRRING MACHINE OPERATOR reported to nurse. Advise patient that behavior was inappropriate and try to redirect.
[2023-04-23] MEDS: MELATONIN 3 MG TABLET 6 MG PO (22:09)
[2023-04-23] MEDS: Tamsulosin HCl 0.4 MG Capsule PO (22:10)
[2023-04-24] MEDS: Isosorbide Mononitrate 60 MG Tablet PO (05:56)
[2023-04-24] MEDS: Tolterodine Tartrate 2 MG CAP.SA PO (05:56)
[2023-04-24] MEDS: Acetaminophen 500 MG Tablet 1000 MG PO ×3 (05:56→20:24)
[2023-04-24] MEDS: Finasteride 5 MG Tablet PO (05:56)
[2023-04-24] MEDS: levoFLOXacin 750 MG Tablet PO (05:57)
[2023-04-24] MEDS: Atenolol 25 MG Tablet 12.5 MG PO (05:57)
[2023-04-24] MEDS: buPROPion (SR) 100 MG TABLET.SA PO ×2 (05:57→17:36)
[2023-04-24] MEDS: Cephalexin 500 MG Capsule PO ×2 (05:59→17:36)
[2023-04-24] MEDS: Nystatin Powder 15gm Bottle 1 APPLIC TOPICAL ×2 (05:59→20:23)
[2023-04-24] MEDS: Menthol/Lanolin/Calamine/Znox 113 GM Tube 1 APPLIC TOPICAL ×2 (06:00→17:36)
[2023-04-24] MEDS: Gabapentin 100 MG Capsule PO (08:12)
[2023-04-24] MEDS: Aspirin E.C. 81 MG Tablet PO (08:12)
[2023-04-24 08:14] VITALS: PULSE 68; RESP 18; O2SAT 96
--- NOTE | 2023-04-24 12:38 | MDS.RN ---
Pain interview for MDS completed.
[2023-04-24 14:45] VITALS: BP 118/71; PULSE 62; RESP 16; TEMP 36.1; O2SAT 96
--- NOTE | 2023-04-24 14:56 | NURSING ---
Addendum entered by Tete Williamson 04/24/23 15:41: MAURICIO CHANDRA RETURNED CALL, STATED PT CAN BEAR WEIGHT THROUGH LT ARM IF HE IS HAVING NO PAIN. HE DID NOT HAVE PAIN FOR HIM. NO SPLINT NEEDED EITHER Original Note: 1430 PT RETURNED FROM APPT WITH MAURICIO CHANDRA, NO NEW ORDERS GIVEN. PT STATES HE TOLD HIM THAT SPLINT CAN BE REMOVED, DOING HIM NO GOOD MESSAGE LEFT FOR [facility] TO GET CLARIFICATION
--- NOTE | 2023-04-24 16:33 | CASEMGMT ---
Social Work BIMS (05/30) and PHQ-9 (01/09) completed for MDS assessment. KANCHAN SaldañaW
--- NOTE | 2023-04-24 17:28 | NURSING ---
PT DAUGHTER CALLED AND REPORTED THAT PT CALLED HER WANTING TO LEAVE FACILITY D/T A MAN IN A WHITE COAT SAYING THAT STAFF COMPLAINING OF INAPPROPRIATE SEXUAL CONDUCT. DAUGHTER MADE AWARE THAT DR VIZCARRA DID HAVE A TALK WITH HIM REGARDING HIS INAPPROPRIATE SEXUAL BEHAVIOR WITH FEMALE STAFF. DAUGHTER DID SAY THAT THIS IS NOT NEW, WHEN SHE TAKES HIM SHOPPING HE DOES THIS IN GROCERY STORES AND WILL SIT AT ENTRANCES AND COMPLIMENT WOMEN ON THEIR LOOKS, MOSTLY YOUNGER ONES. DAUGHTER HAS PT KEYS AND WALLET AND WILL NOT BE BRINGING THEM IN.
[2023-04-24] MEDS: MELATONIN 3 MG TABLET 6 MG PO (20:25)
[2023-04-24] MEDS: Tamsulosin HCl 0.4 MG Capsule PO (20:25)
[2023-04-24] MEDS: hydrOXYzine 10 MG Tablet PO (21:16)
[2023-04-25] MEDS: Menthol/Lanolin/Calamine/Znox 113 GM Tube 1 APPLIC TOPICAL ×2 (05:22→16:41)
[2023-04-25] MEDS: Tolterodine Tartrate 2 MG CAP.SA PO (05:24)
[2023-04-25] MEDS: buPROPion (SR) 100 MG TABLET.SA PO ×2 (05:24→16:40)
[2023-04-25] MEDS: Cephalexin 500 MG Capsule PO ×2 (05:25→16:40)
[2023-04-25] MEDS: Isosorbide Mononitrate 60 MG Tablet PO (05:25)
[2023-04-25] MEDS: Ergocalciferol 1.25 MG (50, 000 UNIT) Capsule PO (05:25)
[2023-04-25] MEDS: Atenolol 25 MG Tablet 12.5 MG PO (05:25)
[2023-04-25] MEDS: Finasteride 5 MG Tablet PO (05:25)
[2023-04-25] MEDS: Acetaminophen 500 MG Tablet 1000 MG PO ×3 (05:25→20:17)
[2023-04-25] MEDS: Nystatin Powder 15gm Bottle 1 APPLIC TOPICAL ×2 (05:37→16:40)
[2023-04-25] MEDS: Aspirin E.C. 81 MG Tablet PO (08:00)
[2023-04-25 09:42] VITALS: BP 105/46; PULSE 61; RESP 16; TEMP 36.1; O2SAT 97
--- NOTE | 2023-04-25 09:51 | NURSING ---
Previous Buprenorphine patch was removed from left chest and wasted with witness Sharon. New Buprenorphine patch was placed on right lower chest per patient request.
[2023-04-25 10:00] VITALS: PULSE 66; RESP 16; O2SAT 97
[2023-04-25] MEDS: MELATONIN 3 MG TABLET 6 MG PO (20:16)
[2023-04-25] MEDS: Tamsulosin HCl 0.4 MG Capsule PO (20:18)
[2023-04-26] MEDS: Finasteride 5 MG Tablet PO (06:08)
[2023-04-26] MEDS: Atenolol 25 MG Tablet 12.5 MG PO (06:08)
[2023-04-26] MEDS: buPROPion (SR) 100 MG TABLET.SA PO ×2 (06:08→17:12)
[2023-04-26] MEDS: Cephalexin 500 MG Capsule PO ×2 (06:08→17:12)
[2023-04-26] MEDS: Tolterodine Tartrate 2 MG CAP.SA PO (06:09)
[2023-04-26] MEDS: Isosorbide Mononitrate 60 MG Tablet PO (06:09)
[2023-04-26] MEDS: Acetaminophen 500 MG Tablet 1000 MG PO ×3 (06:09→21:30)
[2023-04-26] MEDS: Menthol/Lanolin/Calamine/Znox 113 GM Tube 1 APPLIC TOPICAL ×2 (06:10→17:13)
[2023-04-26] MEDS: Aspirin E.C. 81 MG Tablet PO (08:15)
[2023-04-26 15:32] VITALS: BP 101/69; PULSE 59; RESP 15; TEMP 36.2; O2SAT 95
[2023-04-26] MEDS: Nystatin Powder 15gm Bottle 1 APPLIC TOPICAL (17:13)
[2023-04-26] MEDS: Tamsulosin HCl 0.4 MG Capsule PO (21:30)
[2023-04-26] MEDS: MELATONIN 3 MG TABLET 6 MG PO (21:31)
[2023-04-26 21:52] VITALS: BP 113/80; PULSE 79
[2023-04-27] MEDS: Acetaminophen 500 MG Tablet 1000 MG PO ×3 (05:52→22:32)
[2023-04-27] MEDS: buPROPion (SR) 100 MG TABLET.SA PO ×2 (05:53→17:11)
[2023-04-27] MEDS: Tolterodine Tartrate 2 MG CAP.SA PO (05:53)
[2023-04-27] MEDS: Cephalexin 500 MG Capsule PO ×2 (05:54→17:11)
[2023-04-27] MEDS: Finasteride 5 MG Tablet PO (05:54)
[2023-04-27] MEDS: Nystatin Powder 15gm Bottle 1 APPLIC TOPICAL ×2 (05:55→17:11)
[2023-04-27] MEDS: Menthol/Lanolin/Calamine/Znox 113 GM Tube 1 APPLIC TOPICAL ×2 (05:56→17:11)
[2023-04-27] MEDS: Atenolol 25 MG Tablet 12.5 MG PO (07:41)
[2023-04-27] MEDS: Isosorbide Mononitrate 60 MG Tablet PO (07:41)
[2023-04-27 07:43] VITALS: BP 106/68; PULSE 60
[2023-04-27] MEDS: Aspirin E.C. 81 MG Tablet PO (08:20)
[2023-04-27 16:00] VITALS: BP 96/46; PULSE 63; RESP 16; TEMP 35.7; O2SAT 95
[2023-04-27] MEDS: Tamsulosin HCl 0.4 MG Capsule PO (22:32)
[2023-04-27] MEDS: MELATONIN 3 MG TABLET 6 MG PO (22:32)
[2023-04-27 22:37] VITALS: BP 113/52
[2023-04-28 05:44] LABS: Absolute Lymphocyte Count 1.38 X10^3/uL (0.83-4.51); Absolute Neutrophil Count 5.1 X10^3/uL (2.0-7.7); Basophil# 0.06 X10^3/uL; Basophil% 0.8 % (0-1); Eosinophil# 0.12 X10^3/uL; Eosinophils% 1.6 % (0-5); Hematocrit 37.4 % (40-54); Hemoglobin 11.9 g/dL (13.0-16.5); Lymphocyte # 1.38 X10^3/ul (0.83-4.51); Lymphocyte % 18.4 % (19-41); Mean Corp Hgb Conc 31.8 g/dL (32-36); Mean Corpuscular Hgb 31.9 pg (27.0-32.0); Mean Corpuscular Volume 100.3 fL (80-94); Mean Platelet Vol. 8.8 fl (6.2-12.0); Monocyte# 0.56 X10^3/uL; Monocyte% 7.5 % (0-10); NRBC Flagged by Analyzer 0 % (0-5); Neutrophil # 5.13 X10^3/uL (2.7-7.7); Neutrophil % 68.4 % (47-70); Platelet Count 308 K/mm3 (150-450); RBC Distribution Width CV 13.5 % (11.6-14.6); Red Blood Count 3.73 M/mm3 (4.6-6.2); White Blood Count 7.5 K/mm3 (4.4-11.0)
[2023-04-28] MEDS: Tolterodine Tartrate 2 MG CAP.SA PO (06:25)
[2023-04-28] MEDS: Isosorbide Mononitrate 60 MG Tablet PO (06:25)
[2023-04-28] MEDS: Acetaminophen 500 MG Tablet 1000 MG PO ×3 (06:25→20:57)
[2023-04-28] MEDS: Cephalexin 500 MG Capsule PO ×2 (06:26→17:46)
[2023-04-28] MEDS: Finasteride 5 MG Tablet PO (06:26)
[2023-04-28] MEDS: buPROPion (SR) 100 MG TABLET.SA PO ×2 (06:26→17:46)
[2023-04-28] MEDS: Atenolol 25 MG Tablet 12.5 MG PO (06:26)
[2023-04-28 06:27] LABS: Anion Gap 7 (5-15); BUN 31 mg/dL (7-18); BUN/Creat Ratio 37.9 RATIO (10-20); Calcium,Total 8.9 mg/dL (8.5-10.1); Chloride 108 mmol/L (98-107); Creatinine, Serum 0.82 mg/dL (0.70-1.30); EST Glomerular Filtration Rate 96 mL/min (>60); Est Glom Filt Rate - Afr Amer 116 mL/min (>60); Glucose 98 mg/dL (74-106); Potassium 4.4 mmol/L (3.5-5.1); Sodium Level 140 mmol/L (136-145)
[2023-04-28] MEDS: Nystatin Powder 15gm Bottle 1 APPLIC TOPICAL ×2 (06:27→17:47)
[2023-04-28] MEDS: Menthol/Lanolin/Calamine/Znox 113 GM Tube 1 APPLIC TOPICAL ×2 (06:28→17:47)
[2023-04-28 08:19] VITALS: BP 119/55; PULSE 73
--- NOTE | 2023-04-28 08:30 | NURSING ---
One can of chewing tobacco noted on behind pillow on recliner chair. Pt states, That's my stash. Pt informed again the hospital is a tobacco free campus. Chewing tobacco taken to the med room and placed w/ the initial can found previously. Will report to oncoming nurse.
[2023-04-28] MEDS: Aspirin E.C. 81 MG Tablet PO (08:58)
--- NOTE | 2023-04-28 10:58 | NUR.TO.PHY ---
Kids Club Attendant Note; MDS for 04/27/2023 Complete
[2023-04-28] MEDS: Tuberculin,Purif.prot.deriv. 50 TU/ML Vial 0.1 ML ID (12:44)
[2023-04-28 14:50] VITALS: BP 104/54; PULSE 61; RESP 15; TEMP 35.9; O2SAT 95
[2023-04-28] MEDS: Tamsulosin HCl 0.4 MG Capsule PO (20:57)
[2023-04-28] MEDS: MELATONIN 3 MG TABLET 6 MG PO (20:57)
[2023-04-28 21:03] VITALS: PULSE 70; RESP 16; O2SAT 97
--- NOTE | 2023-04-29 02:43 | NURSING ---
Colostomy bag noted to be leaking stool. New appliance applied.
[2023-04-29 06:00] VITALS: BP 125/68; PULSE 75
[2023-04-29] MEDS: Menthol/Lanolin/Calamine/Znox 113 GM Tube 1 APPLIC TOPICAL ×2 (06:05→17:20)
[2023-04-29] MEDS: buPROPion (SR) 100 MG TABLET.SA PO ×2 (06:06→17:20)
[2023-04-29] MEDS: Finasteride 5 MG Tablet PO (06:06)
[2023-04-29] MEDS: Tolterodine Tartrate 2 MG CAP.SA PO (06:06)
[2023-04-29] MEDS: Acetaminophen 500 MG Tablet 1000 MG PO ×3 (06:06→21:43)
[2023-04-29] MEDS: Nystatin Powder 15gm Bottle 1 APPLIC TOPICAL ×2 (06:07→17:20)
[2023-04-29] MEDS: Isosorbide Mononitrate 60 MG Tablet PO (06:10)
[2023-04-29] MEDS: Atenolol 25 MG Tablet 12.5 MG PO (06:10)
[2023-04-29 08:19] VITALS: BP 95/46; PULSE 64; RESP 16; TEMP 36.4; O2SAT 95
[2023-04-29] MEDS: Aspirin E.C. 81 MG Tablet PO (08:21)
[2023-04-29 11:23] VITALS: BMI 27.6
[2023-04-29] MEDS: MELATONIN 3 MG TABLET 6 MG PO (21:42)
[2023-04-29] MEDS: Tamsulosin HCl 0.4 MG Capsule PO (21:42)
[2023-04-30] MEDS: buPROPion (SR) 100 MG TABLET.SA PO ×2 (05:41→17:30)
[2023-04-30] MEDS: Atenolol 25 MG Tablet 12.5 MG PO (05:41)
[2023-04-30] MEDS: Acetaminophen 500 MG Tablet 1000 MG PO ×3 (05:41→20:45)
[2023-04-30] MEDS: Isosorbide Mononitrate 60 MG Tablet PO (05:42)
[2023-04-30] MEDS: Finasteride 5 MG Tablet PO (05:42)
[2023-04-30] MEDS: Tolterodine Tartrate 2 MG CAP.SA PO (05:42)
[2023-04-30] MEDS: Nystatin Powder 15gm Bottle 1 APPLIC TOPICAL ×2 (05:47→17:31)
[2023-04-30] MEDS: Menthol/Lanolin/Calamine/Znox 113 GM Tube 1 APPLIC TOPICAL ×2 (05:48→17:34)
[2023-04-30] MEDS: Aspirin E.C. 81 MG Tablet PO (08:16)
[2023-04-30 15:13] VITALS: BP 132/52; PULSE 64; RESP 16; TEMP 36.3; O2SAT 96
[2023-04-30] MEDS: Tamsulosin HCl 0.4 MG Capsule PO (20:45)
[2023-04-30] MEDS: MELATONIN 3 MG TABLET 6 MG PO (20:45)
[2023-04-30 20:52] VITALS: PULSE 70; RESP 16; O2SAT 97
--- NOTE | 2023-04-30 21:00 | NURSING ---
Pt noted to have a can of tobacco chew in his pants pocket. This nurse educated pt on the hospitals policy on tobacco products. Chew taken and placed in med rm.
[2023-05-01 06:47] VITALS: BP 108/51; PULSE 60
[2023-05-01] MEDS: Atenolol 25 MG Tablet 12.5 MG PO (06:49)
[2023-05-01] MEDS: Tolterodine Tartrate 2 MG CAP.SA PO (06:49)
[2023-05-01] MEDS: Nystatin Powder 15gm Bottle 1 APPLIC TOPICAL ×2 (06:49→17:57)
[2023-05-01] MEDS: Acetaminophen 500 MG Tablet 1000 MG PO ×3 (06:49→21:35)
[2023-05-01] MEDS: Isosorbide Mononitrate 60 MG Tablet PO (06:49)
[2023-05-01] MEDS: Finasteride 5 MG Tablet PO (06:49)
[2023-05-01] MEDS: buPROPion (SR) 100 MG TABLET.SA PO ×2 (06:49→17:56)
[2023-05-01] MEDS: Menthol/Lanolin/Calamine/Znox 113 GM Tube 1 APPLIC TOPICAL ×2 (06:50→17:58)
[2023-05-01] MEDS: Aspirin E.C. 81 MG Tablet PO (08:24)
--- NOTE | 2023-05-01 10:12 | NURSING ---
Pt voiced concern to this Nurse regarding two women moving into his house who he does not know. Per pt, daughter gave them a cordoba and these two women will be his care takers. Pt concerned that both women are wheelchair bound and not sure how they will be any help to pt. City Routeman updated.
--- NOTE | 2023-05-01 10:19 | NURSING ---
PT called Dr. Tena's office to get another order for Butrans Patch. Once ordered pt stated Daughter will bring in.
--- NOTE | 2023-05-01 13:04 | MDS.RN ---
Information for the mds was obtained from review of the clinical record, interview of resident, staff, and direct observation of resident's care.
[2023-05-01 14:41] VITALS: BP 113/53; PULSE 59; RESP 20; TEMP 36.2; O2SAT 94
--- NOTE | 2023-05-01 16:15 | NURSING ---
FOUND A CAN OF TOBACCO CHEW ON PT BED SIDE TABLE. EDUCATED PT ON POLICES AT [facility] AND THAT HE ALSO HAS A NICOTINE PATCH ON AND THE SIDE AFFECTS FROM CHEWING WITH THAT ON. ASKED PT WHERE HE GOT THE CHEW PT STATED IT WAS IN MY POCKET. ASKED PT WHO BROUGHT IT IN,AGAIN PT STATED IT WAS IN MY POCKET. STATED TO PT IF WE FIND OUT WHO IT IS AND SEE THAT IF CHEW WAS GIVEN TO HIM WE WOULD CALL SECURITY THE NEXT TIME THAT VISITOR COMES IN. RN AWARE
--- NOTE | 2023-05-01 17:30 | CASEMGMT ---
Social Work ROSA received phone call from pt dgt Rita to discuss discharge plan. Pt requesting to return home. SW reviewed pt functional ability with therapy. Rita states she has two friends that are moving in to pts home. One is disabled and her daughter who will provide 24 hour care to both her mother and this pt. Pt home is on one floor and pt dgt is confident that friend will be able to care for pt. Caregivers are moving into pt home today. Rita to talk to pt and caregivers tonight and decide on best discharge date and will call this SW back tomorrow with information. HERIBERTO Boateng
--- NOTE | 2023-05-01 18:58 | NURSING ---
Pt became very agitated and voiced that he was going home. Pt in room packing to go home and stated I have caregivers at home that will take care of me. Educated pt that he has not been cleared for discharge. Called pt's daughter and updated daughter. Per Daughter he doesn't' have his keys to his car and she doesn't believe that he will get a ride to go home. Pt was able to calm down once dinner arrived and has not tried to self ambulate. Call light within reach and personal alarm in place.
[2023-05-01] MEDS: MELATONIN 3 MG TABLET 6 MG PO (21:35)
[2023-05-01] MEDS: Tamsulosin HCl 0.4 MG Capsule PO (21:35)
[2023-05-02 06:09] VITALS: BP 136/60; PULSE 65
[2023-05-02] MEDS: Menthol/Lanolin/Calamine/Znox 113 GM Tube 1 APPLIC TOPICAL ×2 (06:10→17:36)
[2023-05-02] MEDS: Tolterodine Tartrate 2 MG CAP.SA PO (06:10)
[2023-05-02] MEDS: Atenolol 25 MG Tablet 12.5 MG PO (06:10)
[2023-05-02] MEDS: Acetaminophen 500 MG Tablet 1000 MG PO ×3 (06:10→20:51)
[2023-05-02] MEDS: Isosorbide Mononitrate 60 MG Tablet PO (06:10)
[2023-05-02] MEDS: buPROPion (SR) 100 MG TABLET.SA PO ×2 (06:11→17:35)
[2023-05-02] MEDS: Finasteride 5 MG Tablet PO (06:11)
[2023-05-02] MEDS: Nystatin Powder 15gm Bottle 1 APPLIC TOPICAL ×2 (06:11→17:36)
[2023-05-02] MEDS: Ergocalciferol 1.25 MG (50, 000 UNIT) Capsule PO (06:12)
[2023-05-02] MEDS: Aspirin E.C. 81 MG Tablet PO (07:42)
--- NOTE | 2023-05-02 13:15 | CASEMGMT ---
Social Work ROSA spoke with pt greg Salinas who is requesting discharge for pt on Saturday 05/05. Pt will be returning home with 2 24 hour caregivers. Pt does have a medical alert and all needed DME. SW met with pt and discussed d/c plan. Pt agreeable to discharge on 05/05. Therapy is recommending home health care PT/OT and pt is agreeable. SW provided a list of home health care providers including quality ratings and resource use data. Pt preference is [facility]. Referral to [facility] and they are able to accept with a start of care . SW spoke with pt regarding completing advance directives. Pt declining at this time stating he has already done this with the help of his daughter. Discharge Date: 05/05/23 Discharge Disposition: home with home health PT/OT HERIBERTO Rodrigues
--- NOTE | 2023-05-02 14:08 | DS.PCM_ITS ---
Providers Date of Admission: 04/20/23 Primary Care Physician: Dr. Vishal Antonio MD Reason For Visit: FREQUENT FALLS, LEFT ULNAR FRACTURE Diagnosis Discharge Diagnosis (1) Debility: Status: Acute Code(s): R53.81 - Other malaise (2) Encephalopathy: Status: Acute Code(s): G93.40 - Encephalopathy, unspecified (3) Left elbow fracture: Status: Acute Code(s): S42.402A - Unspecified fracture of lower end of left humerus, initial encounter for closed fracture (4) UTI (urinary tract infection): Status: Resolved Code(s): N39.0 - Urinary tract infection, site not specified Qualifiers: Urinary tract infection type: acute cystitis Hematuria presence: without hematuria Qualified Code(s): N30.00 - Acute cystitis without hematuria (5) History of colon cancer: Status: Acute Code(s): Z85.038 - Personal history of other malignant neoplasm of large intestine (6) History of prostate cancer: Status: Chronic Code(s): Z85.46 - Personal history of malignant neoplasm of prostate (7) Coronary artery disease: Status: Acute Code(s): I25.10 - Atherosclerotic heart disease of mcgrath coronary artery without angina pectoris (8) Hypertension: Status: Chronic Code(s): I10 - Essential (primary) hypertension (9) HLD (hyperlipidemia): Status: Chronic Code(s): E78.5 - Hyperlipidemia, unspecified Qualifiers: Hyperlipidemia type: pure hypercholesterolemia Qualified Code(s): E78.00 - Pure hypercholesterolemia, unspecified; E78.0 - Pure hypercholester olemia (10) Muscle spasm: Status: Acute Code(s): M62.838 - Other muscle spasm (11) Neuropathic pain: Status: Acute Code(s): M79.2 - Neuralgia and neuritis, unspecified (12) Opioid dependence: Status: Acute Code(s): F11.20 - Opioid dependence, uncomplicated (13) Overactive bladder: Status: Acute Code(s): N32.81 - Overactive bladder Plan 83 year old male with below past medical history hospitalized for fall, left elbow fracture, complicated by encephalopathy secondary to urinary tract infection, admitted to TCU with debility, here for rehabilitation, strengthening, prior to discharge home alone. * Debility - PT/OT. * Pain - Tylenol 1000mg q8. * Bowel - senna/colace 1 tablet bid, Magnesium citrate 300ml daily prn, Me tamucil 1 packet daily prn. * Adult immunization - Administer pneumonia vaccine, covid19 vaccine, flu vaccine as appropriate. * DVT prophylaxis - Lovenox 40mg sc daily. * Coronary artery disease - Atenolol 12.5mg daily, Imdur 60mg daily, Aspirin 81mg daily, NTG 0.4mg sl q5m prn. * Chronic pain - Butrans 10mcg/hour 1 patch td qweek. * Depression - Bupropion 100mg bid, stable chronic fpc use, GDR not recommended. * Vitamin D deficiency - D 1.25mg qweek. * BPH - Finasteride 5mg daily, Tamsulosin 0.4mg daily. * Neuropathic pain - Gabapentin 100mg tid. * Anxiety - Hydroxyzine 10mg tid prn. * S. Marcescens urinary tract infection - Levaquin 750mg daily thru 04/24/2023. * Cellulitis left elbow - Rx Keflex 500mg qid x 7 days. * Skin irritation - Calmoseptine topical bid. * Nicotine dependence - Nicotine 21mg patch 1 patch td daily * Tinea Corporis - Nystatin powder topical bid. * Overactive bladder - Detrol 2mg daily. Medications at Discharge Home Medications finasteride 5 mg tablet (Proscar) 5 mg PO DAILY prostate 01/27/18 aspirin 81 mg tablet,delayed release (Adult Low Dose Aspirin) 81 mg PO DAILY heart health 07/30/18 nitroglycerin 0.4 mg sublingual tablet 0.4 mg sublingual Q5M PRN Chest Pain #25 tabs 05/11/21 tamsulosin 0.4 mg capsule 0.4 mg PO QHS prostate 10/21/21 atenolol 25 mg tablet 12.5 mg PO QDAY blood pressure 07/15/22 isosorbide mononitrate 60 mg tablet,extended release 24 hr 60 mg PO DAILY heart #90 tabs 01/16/23 buprenorphine 10 mcg/hour weekly transdermal patch 1 patch transdermal FR pain 04/17/23 bupropion HCl 100 mg tablet,12 hr sustained-release 100 mg PO BID depression 04/17/23 oxybutynin chloride 10 mg tablet,extended release 24 hr 10 mg PO DAILY overactive bladder 04/17/23 ergocalciferol (vitamin D2) 1,250 mcg (50,000 unit) capsule (Vitamin D2) 1,250 mcg PO Q7D bones #0 caps 04/20/23 psyllium husk (aspartame) 3 gram oral powder packet (Daily Fiber (psyllium- aspartame)) 1 packet PO DAILY PRN loose stools #0 ea 04/20/23 acetaminophen 500 mg tablet 1,000 mg (2 x 500 mg) PO Q8 #0 tabs 05/02/23 Hospital Course Operations None Procedures None Summary of Care Provided Minutes Spent on Discharge: 35 Hospital Course: 83 year old male with below past medical history hospitalized for fall, left elbow fracture, complicated by encephalopathy secondary to urinary tract infection, admitted to TCU with debility, here for rehabilitation, strengthening, prior to discharge home alone. Discharge home alone with 24 hour care 05/05/2023, [facility] PT/OT. Physical Exam Const alert General Appearance: cooperative HEENT normocephalic Eyes PERRL and EOMs intact bilaterally Neck supple, no JVD and no carotid bruits Resp normal respiratory effort, normal air movement and clear to auscultation bilaterally Cardio regular rate and regular rhythm GI normal to inspection, nondistended, normoactive bowel sounds, non-tender and non-distended Extremity normal capillary refill General Extremity: Negative for edema Skin no rashes or lesions noted General Skin Exam: no breakdown Psych affect normal Appearance: appropriate Weight / BMI Weight Weight: 80.15 kg Body Mass Index (BMI) 27.6 ABG / Lab / Microbiology Data 04/28/23 05:38 04/28/23 05:38 D/C Instructions Discharge Diet: No restrictions Discharge Activity: Return to Normal Activity, May Shower and Use Walker Weight Bearing Status: Weight bearing as tolerated (Left upper extremity.) Call your doctor if you observe: Fever of 101 or Higher, Inability to urinate, Inability to have a bowel movement, Shortness of breath, Dizziness, Fainting spells, Swelling in the ankles, Chest pain and Uncontrolled pain Additional Instructions: Discharge home alone with 24 hour care 05/05/2023, [facility] PT/OT. Please Follow Up With: Niranjan Jimenez PA When: 1-2 weeks. Meaningful Use Info Meaningful Use Diagnoses (Choose all that apply): None applicable Discharge Plan Admission Admit Date/Time: 04/20/23 11:23 Primary Reason for Your Visit: Debility. Attending Provider: Parth Abel Chi Primary Care Provider: Vishal Antonio Instructions Additional Instructions / Restrictions: Discharge home alone with 24 hour care 05/05/2023, [facility] PT/OT. Discharge Orders/Prescriptions Prescriptions: New acetaminophen 500 mg Tablet 1,000 mg PO Q8 Qty: 0 0RF Continued finasteride [Proscar] 5 mg tablet 5 mg PO DAILY aspirin [Adult Low Dose Aspirin] 81 mg tablet,delayed release (DR/EC) 81 mg PO DAILY tamsulosin 0.4 mg capsule 0.4 mg PO QHS atenolol 25 mg tablet 12.5 mg PO QDAY bupropion HCl 100 mg tablet sustained-release 12 hr 100 mg PO BID oxybutynin chloride 10 mg tablet extended release 24hr 10 mg PO DAILY buprenorphine 10 mcg/hour patch weekly 1 patch transdermal FR ergocalciferol (vitamin D2) [Vitamin D2] 1,250 mcg (50,000 unit) Capsule 1,250 mcg PO Q7D Qty: 0 0RF Daily Fiber (psyllium-aspart) 3 gram Powder In Packet 1 packet PO DAILY PRN (Reason: loose stools) Qty: 0 0RF nitroglycerin 0.4 mg tablet, sublingual 0.4 mg SL Q5M PRN (Reason: Chest Pain) Qty: 25 2RF isosorbide mononitrate 60 mg tablet extended release 24 hr 60 mg PO DAILY Qty: 90 3RF Discontinued acetaminophen 500 mg Tablet 1,000 mg PO Q8 Qty: 0 0RF hydroxyzine pamoate 25 mg Capsule 12.5 mg PO TID PRN (Reason: anxiety) Qty: 0 0RF gabapentin 100 mg Capsule 100 mg PO TIDCM Qty: 0 0RF levofloxacin 750 mg Tablet 750 mg PO DAILY@0600 Qty: 0 0RF Referrals / Follow Up: Vishal Antonio MD [Primary Care Provider] - Disposition Disposition (needs filled in before D/C Order can be placed): Home Health Service
[2023-05-02 15:29] VITALS: BP 111/50; PULSE 67; RESP 16; TEMP 36.3; O2SAT 93
--- NOTE | 2023-05-02 16:55 | CASEMGMT ---
BIMS (08/29) and PHQ9 (03/11) completed on this date for MDS assessment. Pt stating that feelings of depression are related to need for SNF and as soon as he can return home on Friday he will be feeling much better. Denies needs. HERIBERTO Boateng
--- NOTE | 2023-05-02 20:48 | NURSING ---
Addendum entered by Annetta Bland 05/02/23 21:02: pharmacist (Alvaro) contacted regarding Butrans patch, per pharmacist [facility] does not provide patch and needs to be provided by family, paitient will need to wait for daughter to provide tomorrow 05/03/23 and ok to leave current patch in place until new patch provided by daughter 05/03 Original Note: Buprenorphine patch observed to right upper abdomen, declines removal of patch as new patch is due per MAR. Patient states daughter is unable to bring in new patches until tomorrow.
[2023-05-02] MEDS: MELATONIN 3 MG TABLET 6 MG PO (20:50)
[2023-05-02] MEDS: Tamsulosin HCl 0.4 MG Capsule PO (20:52)
[2023-05-02 21:00] VITALS: PULSE 70; RESP 14; O2SAT 99
[2023-05-03] MEDS: Nystatin Powder 15gm Bottle 1 APPLIC TOPICAL ×2 (05:50→17:30)
[2023-05-03] MEDS: Menthol/Lanolin/Calamine/Znox 113 GM Tube 1 APPLIC TOPICAL ×2 (05:51→17:38)
[2023-05-03] MEDS: Atenolol 25 MG Tablet 12.5 MG PO (05:52)
[2023-05-03] MEDS: buPROPion (SR) 100 MG TABLET.SA PO ×2 (05:52→17:37)
[2023-05-03] MEDS: Finasteride 5 MG Tablet PO (05:52)
[2023-05-03] MEDS: Tolterodine Tartrate 2 MG CAP.SA PO (05:52)
[2023-05-03] MEDS: Isosorbide Mononitrate 60 MG Tablet PO (05:54)
[2023-05-03] MEDS: Acetaminophen 500 MG Tablet 1000 MG PO ×3 (05:54→22:16)
[2023-05-03 06:01] VITALS: BP 126/63; PULSE 62; RESP 16
[2023-05-03] MEDS: Aspirin E.C. 81 MG Tablet PO (08:11)
[2023-05-03 08:54] VITALS: BP 93/49; PULSE 64; RESP 16; TEMP 36.2; O2SAT 93
--- NOTE | 2023-05-03 10:18 | NURSING ---
Addendum entered by Brittney Jonas 05/03/23 10:39: Old patch removed and wasted in RX destroyer, witnessed by Enedina DELGADILLO. New patch placed on patient's left chest per request. Original Note: Daughter brought in home Buprenorphine patch. No box with RX label. Single packaged dose, unopened. Sent to pharmacy in secure tube with Jayashree DELGADILLO as witness for patient label.
[2023-05-03 22:15] VITALS: BP 117/53; PULSE 75
[2023-05-03] MEDS: MELATONIN 3 MG TABLET 6 MG PO (22:16)
[2023-05-03] MEDS: Tamsulosin HCl 0.4 MG Capsule PO (22:17)
[2023-05-04 05:56] VITALS: BP 123/65; PULSE 80
[2023-05-04] MEDS: Acetaminophen 500 MG Tablet 1000 MG PO ×3 (06:00→21:55)
[2023-05-04] MEDS: Tolterodine Tartrate 2 MG CAP.SA PO (06:01)
[2023-05-04] MEDS: Atenolol 25 MG Tablet 12.5 MG PO (06:01)
[2023-05-04] MEDS: Isosorbide Mononitrate 60 MG Tablet PO (06:01)
[2023-05-04] MEDS: buPROPion (SR) 100 MG TABLET.SA PO ×2 (06:01→17:20)
[2023-05-04] MEDS: Finasteride 5 MG Tablet PO (06:02)
[2023-05-04] MEDS: Nystatin Powder 15gm Bottle 1 APPLIC TOPICAL ×2 (06:03→17:20)
[2023-05-04] MEDS: Menthol/Lanolin/Calamine/Znox 113 GM Tube 1 APPLIC TOPICAL ×2 (06:03→17:21)
[2023-05-04] MEDS: Aspirin E.C. 81 MG Tablet PO (08:57)
[2023-05-04 14:41] VITALS: BP 105/56; PULSE 64; RESP 16; TEMP 36.8; O2SAT 96
[2023-05-04] MEDS: Tamsulosin HCl 0.4 MG Capsule PO (21:55)
[2023-05-04] MEDS: MELATONIN 3 MG TABLET 6 MG PO (21:55)
[2023-05-04 22:03] VITALS: BP 121/62; PULSE 72
[2023-05-05 05:51] LABS: Absolute Lymphocyte Count 1.69 X10^3/uL (0.83-4.51); Absolute Neutrophil Count 3.8 X10^3/uL (2.0-7.7); Basophil# 0.05 X10^3/uL; Basophil% 0.8 % (0-1); Eosinophil# 0.12 X10^3/uL; Eosinophils% 1.9 % (0-5); Hematocrit 39.5 % (40-54); Hemoglobin 12.6 g/dL (13.0-16.5); Lymphocyte # 1.69 X10^3/ul (0.83-4.51); Lymphocyte % 26.4 % (19-41); Mean Corp Hgb Conc 31.9 g/dL (32-36); Mean Corpuscular Hgb 31.9 pg (27.0-32.0); Mean Platelet Vol. 8.7 fl (6.2-12.0); Monocyte# 0.67 X10^3/uL; Monocyte% 10.5 % (0-10); NRBC Flagged by Analyzer 0 % (0-5); Neutrophil # 3.83 X10^3/uL (2.7-7.7); Neutrophil % 59.8 % (47-70); Platelet Count 221 K/mm3 (150-450); RBC Distribution Width CV 13.4 % (11.6-14.6); RBC Distribution Width SD 49.2 fl (35.1-43.9); Red Blood Count 3.95 M/mm3 (4.6-6.2); White Blood Count 6.4 K/mm3 (4.4-11.0)
[2023-05-05 06:00] VITALS: BP 137/68; PULSE 83
[2023-05-05] MEDS: Acetaminophen 500 MG Tablet 1000 MG PO (06:19)
[2023-05-05] MEDS: Atenolol 25 MG Tablet 12.5 MG PO (06:20)
[2023-05-05] MEDS: buPROPion (SR) 100 MG TABLET.SA PO (06:21)
[2023-05-05] MEDS: Finasteride 5 MG Tablet PO (06:21)
[2023-05-05] MEDS: Isosorbide Mononitrate 60 MG Tablet PO (06:21)
[2023-05-05 06:22] LABS: Anion Gap 2 (5-15); BUN 23 mg/dL (7-18); BUN/Creat Ratio 24.8 RATIO (10-20); Calcium,Total 9.2 mg/dL (8.5-10.1); Chloride 106 mmol/L (98-107); Creatinine, Serum 0.93 mg/dL (0.70-1.30); EST Glomerular Filtration Rate 82 mL/min (>60); Est Glom Filt Rate - Afr Amer 100 mL/min (>60); Estimated Creatinine Clearance 55.28 ml/min; Glucose 94 mg/dL (74-106); Potassium 4.3 mmol/L (3.5-5.1); Sodium Level 136 mmol/L (136-145)
[2023-05-05] MEDS: Tolterodine Tartrate 2 MG CAP.SA PO (06:22)
[2023-05-05] MEDS: Menthol/Lanolin/Calamine/Znox 113 GM Tube 1 APPLIC TOPICAL (06:23)
[2023-05-05] MEDS: Nystatin Powder 15gm Bottle 1 APPLIC TOPICAL (06:23)
[2023-05-05] MEDS: Aspirin E.C. 81 MG Tablet PO (07:53)
[2023-05-05 08:05] VITALS: BP 105/58; PULSE 65; RESP 16; TEMP 36.5; O2SAT 93
[2023-05-05 08:06] VITALS: PULSE 68; RESP 16; O2SAT 93
[2023-05-05 09:29] VITALS: BP 105/63; PULSE 68; RESP 15; TEMP 36.1; O2SAT 95
--- NOTE | 2023-05-05 11:37 | CASEMGMT ---
Social Work Speech therapist requesting addition of speech therapy to home health order. Phone call to Ting at [facility] and they are able to add ST to care plan. HERIBERTO Boateng
== END 2023-05-05 11:20 | disposition home health service (06) | DRG 560 ==
PROVIDERS: Admitting Provider Family Medicine Geriatric Medicine; PCP Family Medicine; Visit Provider Family Medicine Geriatric Medicine
DX: S42.402D Unspecified fracture of lower end of left humerus, subsequent encounter for fracture with routine healing (principal); N30.01 Acute cystitis with hematuria; F11.20 Opioid dependence, uncomplicated; L03.114 Cellulitis of left upper limb; E55.9 Vitamin D deficiency, unspecified; E78.00 Pure hypercholesterolemia, unspecified; B35.4 Tinea corporis; I10 Essential (primary) hypertension; F32.A Depression, unspecified; F17.220 Nicotine dependence, chewing tobacco, uncomplicated; I25.10 Atherosclerotic heart disease of native coronary artery without angina pectoris; W19.XXXD Unspecified fall, subsequent encounter; F41.9 Anxiety disorder, unspecified; N32.81 Overactive bladder; Z79.899 Other long term (current) drug therapy; N40.0 Benign prostatic hyperplasia without lower urinary tract symptoms; Z79.82 Long term (current) use of aspirin; G47.00 Insomnia, unspecified
CPT/HCPCS: 36415; 80048; 85014; 85018; 85025; 92507; 92523; 97110; 97116; 97129; 97130; 97162; 97166; 97530; 97535; 97802

== ENCOUNTER → 2023-05-16 | Outpatient (CLI) | payer MEDICARE, BC, SELFPAY ==
[2023-05-16 19:12] LABS: Color, Urine Yellow (Yellow); Glucose, Dipstick Normal (Normal); Ketone-Dipstick 5 mg/dl (Negative); Leukocyte Esterase-Dipstick 500 /ul (Negative); Nitrite-Dipstick Negative (Negative); Occult Blood-Urine 250 /ul (Negative); Protein-Dipstick 30 mg/dl (Negative); Specific Gravity, Urine 1.025 (1.002-1.030); Urine Bilirubin Dipstick Negative (Negative); Urine Clarity Cloudy (Clear); Urine Urobilinogen Normal (Normal)
== END | disposition home or self-care (01) ==
LOC: LABSPEC 18:59
PROVIDERS: PCP Family Medicine; Visit Provider Family Medicine
DX: R82.79 Other abnormal findings on microbiological examination of urine (principal)
CPT/HCPCS: 81002; 87086; 87088

== ENCOUNTER 2023-07-11 14:24 | Emergency (ER) | payer MEDICARE, BC, SELFPAY ==
[2023-07-11 14:25] VITALS: BP 118/82; PULSE 107; RESP 18; TEMP 36.6; O2SAT 97; BMI 28.0
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
== END 2023-07-11 17:48 | disposition home or self-care (01) ==
PROVIDERS: Emergency Provider Emergency Medicine; PCP Family Medicine; Visit Provider Emergency Medicine
DX: F03.90 Unspecified dementia, unspecified severity, without behavioral disturbance, psychotic disturbance, mood disturbance, and anxiety (principal); I25.10 Atherosclerotic heart disease of native coronary artery without angina pectoris; I25.2 Old myocardial infarction; Z87.891 Personal history of nicotine dependence
CPT/HCPCS: 99282

== ENCOUNTER 2023-10-07 19:32 | Emergency (ER) | payer MEDICARE, BC, SELFPAY ==
[2023-10-07 19:33] VITALS: BP 115/66; PULSE 77; RESP 18; TEMP 36.1; O2SAT 96; BMI 26.0
--- NOTE | 2023-10-07 20:20 | CT_ITS ---
STUDY: CT BRAIN WITHOUT CONTRAST REASON FOR EXAM: Male, 83 years old. fall/trauma RADIATION DOSAGE (If Supplied By Facility): CTDIvol = ( 44.99 ) mGy, DLP = ( 846.73 ) mGycm TECHNIQUE: Transaxial CT imaging of the brain was performed without administration of intravenous contrast material. Individualized dose optimization techniques were used for this CT. COMPARISON: April 17, 2023 CT brain FINDINGS: Normal soft tissue structures. Normal calvarium. There is moderate cerebral atrophy with widening of the extra-axial spaces and ventricular dilatation. There are areas of decreased attenuation within the white matter tracts of the supratentorial brain, consistent with microvascular disease changes. Normal basal ganglia and thalami. Normal brainstem. Normal cerebellum. Intracranial atherosclerosis. There is no intracranial hemorrhage. There are no findings of an acute ischemic infarction. Air-fluid level left maxillary sinus. CT/Brain/Head without Contrast IMPRESSION: Left maxillary sinusitis. Otherwise no acute intracranial disease. Electronically Signed: Dav Mckoy MD at 20:46 EST ,
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
--- OUTSIDE RECORDS SUMMARY | 2023-10-07 20:53 | XMS RPT_ITS | CCD ---
Author Name Unknown Address [address] [facility] [address] [place] [address] Organization [facility] Care Team Providers Care Shoe Sticks Repairer Name Role Phone Nikolay Villa Unavailable Unavailable Renetta DELGADILLO, Asha Noble Unavailable Unavailable ELIE Roger, Angélica Galicia Unavailable Unavailabl e Ann-Marie Fox Unavailable Ann-Marie Fox Unavailable MD Yuko, Earl Wade Unavailable Bradly Condon Unavailable Unavailable Nikolay Villa Unavailable Unavailable Deborah Sabillon RN Unavailable Unavailable Vsihal Jones MD Primary Care Provider Alphonso SU MD, Clement Unavailable Vishal Jones MD Unavailable Maye Gonzalez MD Unavailable Dayna Mann RN Unavailable Maye Gonzalez MD Unavailable Deborah Sabillon RN Unavailable Unavailable Vishal Jones MD Primary Care Provider Alphonso SU MD, Clement Unavailable Vishal Jones MD Unavailable Maye Gonzalez MD Unavailable Dayna Mann RN Unavailable Maye Gonzalez MD Unavailable Vishal Jones MD Primary Care Provider Vishal Jones MD Unavailable Dayna Mann RN Unavailable Deborah Sabillon RN Unavailable Unavailable Vishal Jones MD Primary Care Provider Alphonso SU MD, Daesung Unavailable Vishal Jones MD Unavailable Maye Gonzalez MD Unavailable [facility] Dayna DELGADILLO Unavailable Maye Gonzalez MD Unavailable Maye GONZALEZ Referring Unavailable ROBERT, VISHAL A Primary Care Unavailable ALYSSA, Maye PEREZ Attending Unavailable ROBERT, VISHAL A Primary Care Unavailable TASHA SIM Referring Unavailabl e ALYSSA, Maye PEREZ Attending Unavailable Maye GONZALEZ Referring Unavailable ROBERT, VISHAL A Primary Care Unavailable Maye GONZALEZ Attending Unavailable ALYSSA, Maye PEREZ Referring Unavailable ROBERT, VISHAL A Primary Care Unavailable ALYSSA, Maye PEREZ Attending Unavailable Ridge RN, Deborah Unavailable Unavailable RNDayna Unavailable Roxana Burton Unavailable Unavailabl e ROBERT, VISHAL A Primary Care Unavailable MARSHALL, TAMEKA Referring Unavailable REN CHUA Attending Unavailable ROBERT, VISHAL A Primary Care Unavailable HARSHIL, REN Referring Unavailable ROBERT, VISHAL A Primary Care Unavailable ROBERT, VISHAL A Primary Care Unavailable MARSHALL, TAMEKA Referring Unavailable ROBERT, VISHAL A Primary Care Unavailable ROBERT, VISHAL A Primary Care Unavailable ROLANDO, TAMEKA Referring Unavailable ROBERT, VISHAL A Primary Care Unavailable ROLANDO, TAMEKA Referring Unavailable TAMEKA MARSHALL Attending Unavailable ROBERT, VISHAL A Primary Care Unavailable ROBERT, VISHAL A Attending Unavailable MIKHAIL LIU JR Referring Unavailable ROBERT, VISHAL A Primary Care Unavailable MASCI, SAM Referring Unavailable ROBERT, VISHAL A Primary Care Unavailable ROBERT, VISHAL A Primary Care Unavailable MARSHALL, TAMEKA Referring Unavailable ROBERT, VISHAL A Primary Care Unavailable MARSHALL, TAMEKA Referring Unavailable MASCI, SAM Referring Unavailable ROBERT, VISHAL A Primary Care Unavailable MASCI, SAM Referring Unavailable ROBERT, VISHAL A Primary Care Unavailable MASCI, SAM Referring Unavailable ROBERT, VISHAL A Primary Care Unavailable ROLANDO, TAMEKA Attending Unavailable KAYE ONEAL Referring Unavailable ROBERT, VISHAL A Primary Care Unavailable ROBERT, VISHAL A Primary Care Unavailable MARSHALL, TAMEKA Referring Unavailable CLEMENT WERNER Attending Unavailable ROBERT, VISHAL A Primary Care Unavailable ROBERT, VISHAL A Primary Care Unavailable ROBERT, VISHAL A Attending Unavailable ROBERT, VISHAL A Primary Care Unavailable ROBERT, VISHAL A Primary Care Unavailable ROBERT, VISHAL A Primary Care Unavailable MASCI, SAM Attending Unavailable MASCI, SAM Referring Unavailable ROBERT, VISHAL A Primary Care Unavailable ROBERT, VISHAL A Primary Care Unavailable MARSHALL, TAMEKA Referring Unavailable ROBERT, VISHAL A Primary Care Unavailable ROBERT, VISHAL A Primary Care Unavailable ROBERT, VISHAL A Referring Unavailable ROBERT, VISHAL A Primary Care Unavailable ROBERT, VISHAL A Attending Unavailable MIKHAIL LIU JR Attending Unavailable ROBERT, VISHAL A Primary Care Unavailable ROBERT, VISHAL A Primary Care Unavailable CLEMENT WERNER Attending Unavailable ROBERT, VISHAL A Primary Care Unavailable CLEMENT WERNER Attending Unavailable ROBERT, VISHAL A Primary Care Unavailable JORDAN NAJERA Attending Unavailable ROBERT, VISHAL A Primary Care Unavailable REN CHUA Referring Unavailable CLEMENT WERNER Attending Unavailable TENISHA, SAM Referring Unavailable ROBERT, VISHAL A Primary Care Unavailable MASCI, SAM Referring Unavailable ROBERT, VISHAL A Primary Care Unavailable ROBERT, VISHAL A Primary Care Unavailable ROBERT, VISHAL A Attending Unavailable ROBERT, VISHAL A Primary Care Unavailable ROBERT, VISHAL A Attending Unavailable ROBERT, VISHAL A Primary Care Unavailable MARSHALL, TAMEKA Referring Unavailable MASCI, SAM Referring Unavailable ROBERT, VSIHAL A Primary Care Unavailable KAYE ONEAL Attending Unavailable ROBERT, VISHAL A Primary Care Unavailable REN CHUA Attending Unavailable ROBERT, VISHAL A Primary Care Unavailable MIKHAIL LIU JR Referring Unavailable ROBERT, VISHAL A Primary Care Unavailable CHAPINCITO TOMLIN Attending Unavailable ROBERT, VISHAL A Primary Care Unavailable ROBERT, VISHAL A Referring Unavailable CLEMENT WERNER Referring Unavailable CLEMENT WERNER Attending Unavailable ROBERT, VISHAL A Primary Care Unavailable TENISHA, SAM Attending Unavailable ROBERT, VISHAL A Primary Care Unavailable MASCI, SAM Referring Unavailable ROBERT, VISHAL A Primary Care Unavailable Medications Current Medications Medication Drug Class(es) Dates Sig (Normalized) Sig (Original) gabapentin 100 mg oral capsule (20 sources) Anti-epileptic Agent Start: 05-07-2023 End: 11-08-2023 take 1 capsule by mouth three times daily gabapentin (NEURONTIN) 100 mg capsule Take 1 capsule by mouth three times daily for 180 days. 90 capsule 5 05/12/2023 11/08/2023 Active Completed/Discontinued Medications Medication Drug Class(es) Dates Sig (Normalized) Sig (Original) acetaminophen 325 mg / HYDROcodone bitartrate 10 mg oral tablet (20 sources) Opioid Agonist Start: 09-06-2014 End: 01-28-2017 NORCO 10-325 MG TABS as needed as directed HYDROCODONE-ACETAMI WILLY [id number] Earl Huntley MD Problems Active Problems Problem Classification Problem Date Documented Da te Episodic/Chronic Adjustment disorders (20 sources) Reactive depression (situational); Translations: [Adjustment disorder with depressed mood] Onset: 08-17-2019 10-25-2021 Chronic Alcohol-related disorders (1 source) Alcohol dependence; Translations: [Alcohol dependence with intoxication, uncomplicated] 08-26-2023 Chronic Allergic reactions (1 source) Inflammatory dermatosis; Translations: [Dermatitis, unspecified] Episodic Anxiety disorders (20 sources) Generalized anxiety disorder; Translations: [Generalized anxiety disorder] Onset: 01-01-2023 Chronic Cancer of colon (20 sources) Malignant tumor of colon; Translations: [Malignant neoplasm of colon, unspecified] Onset: 06-30-2017 11-30-2020 Chronic Cancer of prostate (1 source) Malignant tumor of prostate; Translations: [Malignant neoplasm of prostate] Chronic Cancer of prostate (20 sources) History of malignant neoplasm of prostate; Translations: [Personal history of malignant neoplasm of prostate] 09-11-2021 Episodic Cancer of rectum and anus (20 sources) Malignant tumor of rectum; 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] Onset: 10-12-2019 02-16-2020 Chronic Cardiac dysrhythmias (20 sources) Paroxysmal atrial fibrillation; Translations: [Paroxysmal atrial fibrillation] 08-06-2020 Chronic Conditions associated with dizziness or vertigo (1 source) Lightheadedness; Translations: [Dizziness and giddiness] Episodic Coronary atherosclerosis and other heart disease (20 sources) Coronary atherosclerosis; Translations: [Coronary arteriosclerosis] Onset: 09-15-1993 Resolved: 02-23-2016 02-23-2016 Chronic Delirium, dementia, and amnestic and other cognitive disorders (20 sources) Dementia; Translations: [Unspecified dementia without behavioral disturbance] Onset: 05-07-2023 03-27-2023 Chronic Disorders of lipid metabolism (20 sources) Hyperlipidemia; Translations: [Hyperlipidemia, unspecified] Onset: 04-02-2011 04-02-2011 Chronic E Codes: Fall (1 source) Fall; Translations: [Unspecified fall, initial encounter] Episodic Essential hypertension (20 sources) Hypertensive disorder; Translations: [Essential (primary) hypertension] Onset: 04-02-2011 Resolved: 02-23-2016 04-02-2011 Chronic Fever of unknown origin (1 source) Fever; Translations: [Fever, unspecified] Episodic Genitourinary symptoms and ill-defined conditions (20 sources) Incontinence; Translations: [Mixed incontinence] Onset: 02-16-2020 02-16-2020 Chronic Genitourinary symptoms and ill-defined conditions (1 source) Dysuria; Translations: [Dysuria] Episodic Hyperplasia of prostate (20 sources) Benign prostatic hypertrophy with outflow obstruction; Translations: [Benign prostatic hyperplasia with lower urinary tract symptoms] 11-30-2020 Chronic Miscellaneous mental health disorders (20 sources) Primary insomnia; Translations: [Primary insomnia] Onset: 01-02-2021 01-02-2021 Chronic Nutritional deficiencies (2 sources) Malnutrition (calorie); Translations: [Moderate protein-calorie malnutrition] Onset: 08-20-2020 08-20-2020 Chronic Occlusion or stenosis of precerebral arteries (20 sources) Bilateral stenosis of carotid arteries; Translations: [Occlusion and stenosis of bilateral carotid arteries] Onset: 02-04-2022 02-04-2022 Chronic Osteoarthritis (20 sources) Arthritis of right hip; Translations: [Unilateral primary osteoarthritis, right hip] Onset: 09-25-2017 09-25-2017 Chronic Other aftercare (1 source) Polypharmacy ; Translations: [Other tank terminal gauger (current) drug therapy] 08-26-2023 Episodic Other connective tissue disease (20 sources) Recurrent falls ; Translations: [Repeated falls] Onset: 03-25-2022 Episodic Other gastrointestinal disorders (20 sources) Colostomy present; Translations: [Encounter for attention to colostomy] Onset: 09-25-2017 09-25-2017 Chronic Other gastrointestinal disorders (20 sources) Ileostomy present; Translations: [Ileostomy status] Onset: 06-13-2021 06-13-2021 Chronic Other gastrointestinal disorders (1 source) Ileostomy status; Translations: [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)] Onset: 06-13-2021 Chronic Other gastrointestinal disorders (1 source) Other fecal abnormalities; Translations: [Green stool] Onset: 09-18-2023 Episodic Other hereditary and degenerative nervous system conditions (20 sources) Impaired cognition; Translations: [Mild cognitive impairment, so stated] Onset: 06-18-2019 08-06-2020 Chronic Other hereditary and degenerative nervous system conditions (20 sources) Essential tremor; Translations: [Essential tremor] Onset: 08-16-2019 08-17-2019 Chronic Other injuries and conditions due to external causes (1 source) Abrasion and/or friction burn of skin; Translations: [Other injury of unspecified body region, initial encounter] Episodic Other lower respiratory disease (1 source) Cough; Translations: [Acute cough] 05-29-2023 Episodic Other nervous system disorders (20 sources) Right tarsal tunnel syndrome; Translations: [Tarsal tunnel syndrome, right lower limb] Onset: 06-23-2019 06-23-2019 Chronic Other nervous system disorders (1 source) Disorder of brain; Translations: [Encephalopathy, unspecified] 05-07-2023 Chronic Other nervous system disorders (1 source) Encephalopathy, unspecified; Translations: [Acute encephalopathy] Onset: 05-07-2023 Chronic Other nervous system disorders (3 sources) Impaired cognition; Translations: [Other symptoms and signs involving cognitive functions and awareness] Episodic Other non-traumatic joint disorders (1 source) Effusion of joint of left elbow; Translations: [Effusion, left elbow] 08-01-2023 Episodic Other non-traumatic joint disorders (1 source) Effusion, left elbow; Translations: [Elbow effusion, left] Onset: 09-01-2023 Episodic Other screening for suspected conditions (not mental disorders or infectious disease) (1 source) Computed tomography result abnormal; Translations: [Abnormal findings on diagnostic imaging of other specified body structures] Chronic Other upper respiratory infections (1 source) Viral upper respiratory tract infection; Translations: [Acute upper respiratory infection, unspecified] 05-29-2023 Episodic Residual codes; unclassified (20 sources) Behavior finding; Translations: [Other sleep apnea] Onset: 12-05-2022 Chronic Residual codes; unclassified (2 sources) Insomnia; Translations: [Insomnia, unspecified] Episodic Residual codes; unclassified (1 source) Driving fitness status; Translations: [Other specified personal risk factors, not elsewhere classified] 08-26-2023 Episodic Secondary malignancies (20 sources) Secondary malignant neoplasm of large intestine; Translations: [Secondary malignant neoplasm of large intestine and rectum] Onset: 12-24-2019 02-16-2020 Chronic Secondary malignancies (3 sources) Secondary malignant neoplasm of iliac lymph nodes; Translations: [Secondary and unspecified malignant neoplasm of intrapelvic lymph nodes] Chronic Spondylosis; intervertebral disc disorders; other back problems (20 sources) Lumbar arthritis; Translations: [Spondylosis without myelopathy or radiculopathy, lumbar region] Onset: 09-25-2017 09-24-2019 Chronic Unclassified (4 sources) Long-term drug therapy; Translations: [Other tank terminal gauger (current) drug therapy] Onset: 04-02-2011 04-02-2011 Unclassified (1 source) Established Patient Follow-Up Onset: 03-25-2022 Past or Other Problems Problem Classification Problem Date Documented Da te Episodic/Chronic Abdominal hernia (20 sources) Parastomal hernia; Translations: [Parastomal hernia without obstruction or gangrene] Onset: 12-18-2020 09-24-2021 Episodic Administrative/social admission (20 sources) Advance directive discussed with patient; Translations: [Other specified counseling] Onset: 03-14-2022 03-14-2022 Episodic Biliary tract disease (20 sources) Cholelithiasis AND cholecystitis without obstruction; Translations: [Calculus of gallbladder with chronic cholecystitis without obstruction] Onset: 06-13-2021 06-13-2021 Episodic Calculus of urinary tract (20 sources) Urinary bladder stone; Translations: [Calculus in bladder] Onset: 09-25-2017 02-16-2020 Episodic Cancer of colon (20 sources) History of malignant neoplasm of colon; Translations: [Personal history of other malignant neoplasm of large intestine] Onset: 12-18-2020 01-02-2021 Episodic Coronary atherosclerosis and other heart disease (9 sources) Coronary angioplasty status; Translations: [Percutaneous transluminal coronary angioplasty status] Onset: 04-02-2011 04-02-2011 Episodic Diabetes mellitus without complication (20 sources) High hemoglobin A1c level; Translations: [Other abnormal glucose] Onset: 07-30-2018 07-30-2018 Episodic Fluid and electrolyte disorders (2 sources) Hyperkalemia; Translations: [Hyperkalemia] Onset: 10-01-2022 Episodic Fracture of upper limb (3 sources) Closed fracture of styloid process of ulna; Translations: [Nondisplaced fracture of left ulna styloid process, initial encounter for closed fracture] Onset: 05-07-2023 05-07-2023 Episodic Malaise and fatigue (20 sources) Asthenia; Translations: [Weakness] Onset: 06-18-2019 06-18-2019 Episodic Mycoses (20 sources) Onychomycosis; Translations: [Tinea unguium] Onset: 01-30-2021 01-30-2021 Episodic Open wounds of extremities (9 sources) Laceration with foreign body of unspecified hand, initial encounter; Translations: [Open wound of hand except finger(s) alone, complicated] Onset: 03-15-2010 03-22-2010 Episodic Other aftercare (14 sources) Long-term drug therapy; Translations: [Other tank terminal gauger (current) drug therapy] Onset: 04-02-2011 02-23-2016 Episodic Other aftercare (20 sources) Patient encounter status; Translations: [Other alf (current) drug therapy] Onset: 07-11-2021 07-11-2021 Episodic Other connective tissue disease (20 sources) Neuralgia; Translations: [Neuralgia and neuritis, unspecified] Onset: 09-25-2017 09-25-2017 Episodic Other connective tissue disease (20 sources) Cogwheel muscle rigidity; Translations: [Other symptoms and signs involving the musculoskeletal system] Onset: 06-18-2019 08-17-2019 Episodic Other connective tissue disease (20 sources) Pain in right lower limb; Translations: [Pain in right leg] Onset: 08-19-2022 Episodic Other non-traumatic joint disorders (9 sources) Hip pain; Translations: [Pain in unspecified hip] Onset: 02-04-2012 02-04-2012 Episodic Other nutritional; endocrine; and metabolic disorders (15 sources) Finding of body mass index; Translations: [Body mass index (BMI) 27.0-27.9, adult] Onset: 03-08-2014 08-28-2015 Episodic Other screening for suspected conditions (not mental disorders or infectious disease) (20 sources) Encounter for screening for malignant neoplasm of colon; Translations: [Abnormal result of cardiovascular function study, unspecified] Onset: 04-02-2011 Resolved: 02-23-2016 05-18-2014 Episodic Other skin disorders (9 sources) Other specified disorders of the skin and subcutaneous tissue; Translations: [Other specified dermatoses] Onset: 03-29-2010 04-05-2010 Episodic Phlebitis; thrombophlebitis and thromboembolism (20 sources) H/O: Deep vein thrombosis; Translations: [Personal history of other venous thrombosis and embolism] Onset: 09-25-2017 02-16-2020 Episodic Residual codes; unclassified (7 sources) Family history of coronary arteriosclerosis; Translations: [Family history of ischemic heart disease and other diseases of the circulatory system] 03-08-2014 Episodic Residual codes; unclassified (7 sources) Family history of malignant neoplasm of skin; Translations: [Family history of malignant neoplasm of other organs or systems] Onset: 03-29-2010 04-05-2010 Episodic Residual codes; unclassified (20 sources) History of total colectomy; Translations: [Acquired absence of other specified parts of digestive tract] Onset: 07-16-2017 09-25-2017 Episodic Residual codes; unclassified (20 sources) Frequent night waking; Translations: [Insomnia, unspecified] Onset: 08-19-2022 Episodic Residual codes; unclassified (20 sources) Active living will ; Translations: [Other specified health status] Onset: 09-25-2022 09-25-2022 Episodic Skin and subcutaneous tissue infections (2 sources) Cellulitis of skin; Translations: [Cellulitis, unspecified] Onset: 05-07-2023 05-07-2023 Episodic Spondylosis; intervertebral disc disorders; other back problems (20 sources) Lumbar radiculopathy; Translations: [Low back pain] Onset: 02-04-2012 02-04-2012 Episodic Unclassified (9 sources) Body mass index (BMI) 26.0-26.9, adult; Translations: [Family history of ischemic heart disease and other diseases of the circulatory system] Onset: 03-29-2010 03-08-2014 Episodic Unclassified (4 sources) Preoperative cardiovascular examination ; Translations: [Encounter for preprocedural cardiovascular examination] Onset: 04-02-2011 Resolved: 02-23-2016 02-23-2016 Urinary tract infections (3 sources) Acute cystitis; Translations: [Acute cystitis with hematuria] Onset: 05-07-2023 Episodic Results Test Name Value Interpretation Reference Range Facil ity Vital Signs Date Time Vital Sign Value Performing Clinician Facility 08-01-2023 13:19-0500 Body weight 77.56 kg Ren Chua SEAFOOD PROCESS WORKER.ENVIRONMENTAL FIELD SERVICES TECHNICIAN Work Phone: [facility] 08-01-2023 13:19-0500 Diastolic blood pressure 62 mm[Hg] Ren Chua SEAFOOD PROCESS WORKER.ENVIRONMENTAL FIELD SERVICES TECHNICIAN Work Phone: [facility] 08-01-2023 13:19-0500 Heart rate 70 /min Ren Chua SEAFOOD PROCESS WORKER.ENVIRONMENTAL FIELD SERVICES TECHNICIAN Work Phone: [facility] 08-01-2023 13:19-0500 Respiratory rate 14 /min Ren Chua SEAFOOD PROCESS WORKER.ENVIRONMENTAL FIELD SERVICES TECHNICIAN Work Phone: [facility] 08-01-2023 13:19-0500 Systolic blood pressure 118 mm[Hg] Ren Chua SEAFOOD PROCESS WORKER.ENVIRONMENTAL FIELD SERVICES TECHNICIAN Work Phone: [facility] 05-29-2023 14:26-0400 Body temperature 98.49 [degF] Kassandra Villanuevaler-Ashkan SEAFOOD PROCESS WORKER.ENVIRONMENTAL FIELD SERVICES TECHNICIAN Work Phone: [facility] 05-29-2023 14:26-0400 Body weight 80.74 kg Kassandra Sarah-Ashkan SEAFOOD PROCESS WORKER.ENVIRONMENTAL FIELD SERVICES TECHNICIAN Work Phone: [facility] 05-29-2023 14:26-0400 Diastolic blood pressure 66 mm[Hg] Kassandra Kellyisler-Wood SEAFOOD PROCESS WORKER.ENVIRONMENTAL FIELD SERVICES TECHNICIAN Work Phone: [facility] 05-29-2023 14:26-0400 Heart rate 85 /min Kassandra Villanuevaler-Ashkan SEAFOOD PROCESS WORKER.ENVIRONMENTAL FIELD SERVICES TECHNICIAN Work Phone: [facility] 05-29-2023 14:26-0400 Respiratory rate 23 /min Kassandrakristel Kellyisler-Wood SEAFOOD PROCESS WORKER.ENVIRONMENTAL FIELD SERVICES TECHNICIAN Work Phone: [facility] 05-29-2023 14:26-0400 SaO2% (BldA) [Mass fraction] 99 % Kassandra Grady SEAFOOD PROCESS WORKER.ENVIRONMENTAL FIELD SERVICES TECHNICIAN Work Phone: [facility] 05-29-2023 14:26-0400 Systolic blood pressure 132 mm[Hg] Kassandra Grady APRN.ENVIRONMENTAL FIELD SERVICES TECHNICIAN Work Phone: [facility] 05-07-2023 18:57-0400 Body temperature 98.29 [degF] Vishal Jones MD Work Phone: [facility] 05-07-2023 18:57-0400 Body weight 79.83 kg Vishal Jones MD Work Phone: [facility] 05-07-2023 18:57-0400 Diastolic blood pressure 72 mm[Hg] Vishal Jones MD Work Phone: [facility] 05-07-2023 18:57-0400 Heart rate 88 /min Vishal Jones MD Work Phone: [facility] 05-07-2023 18:57-0400 Respiratory rate 18 /min Vishal Jones MD Work Phone: [facility] 05-07-2023 18:57-0400 Systolic blood pressure 112 mm[Hg] Vishal Jones MD Work Phone: [facility] 04-01-2023 10:02-0400 Body temperature 97.81 [degF] Sam Leei DO Work Phone: [facility] 04-01-2023 10:02-0400 Body weight 82.56 kg Sam Masci DO Work Phone: [facility] 04-01-2023 10:02-0400 Diastolic blood pressure 91 mm[Hg] Sam Leei DO Work Phone: [facility] 04-01-2023 10:02-0400 Heart rate 92 /min Sam Leei DO Work Phone: [facility] 04-01-2023 10:02-0400 SaO2% (BldA) [Mass fraction] 97 % Sam Leei DO Work Phone: [facility] 04-01-2023 10:02-0400 Systolic blood pressure 154 mm[Hg] Sam Greenberg DO Work Phone: [facility] 03-27-2023 10:32-0400 Diastolic blood pressure 66 mm[Hg] Vishal Jones MD Work Phone: [facility] 03-27-2023 10:32-0400 Systolic blood pressure 132 mm[Hg] Vishal Jones MD Work Phone: [facility] 03-27-2023 09:55-0400 Body weight 83.92 kg Vishal Jones MD Work Phone: [facility] 03-27-2023 09:55-0400 Heart rate 91 /min Vishal Jones MD Work Phone: [facility] 03-27-2023 09:55-0400 Respiratory rate 18 /min Vishal Jones MD Work Phone: [facility] 03-27-2023 09:55-0400 SaO2% (BldA) [Mass fraction] 96 % Vishal Jones MD Work Phone: [facility] 01-15-2023 09:27-0400 Body temperature 98.01 [degF] Clement Werner MD, MD Work Phone: [facility] 01-15-2023 09:27-0400 Body weight 81.19 kg Clement Werner MD, MD Work Phone: [facility] 01-15-2023 09:27-0400 Diastolic blood pressure 81 mm[Hg] Clement Werner MD, MD Work Phone: [facility] 01-15-2023 09:27-0400 Heart rate 89 /min Clement Werner MD, MD Work Phone: [facility] 01-15-2023 09:27-0400 Respiratory rate 16 /min Clement Werner MD, MD Work Phone: [facility] 01-15-2023 09:27-0400 SaO2% (BldA) [Mass fraction] 97 % Clement Werner MD, MD Work Phone: [facility] 01-15-2023 09:27-0400 Systolic blood pressure 147 mm[Hg] Clement Werner MD, MD Work Phone: [facility] 01-01-2023 18:26-0400 Body weight 82.1 kg Vishal Jones MD Work Phone: [facility] 01-01-2023 18:26-0400 Diastolic blood pressure 76 mm[Hg] Vishal Jones MD Work Phone: [facility] 01-01-2023 18:26-0400 Heart rate 82 /min Vishal Jones MD Work Phone: [facility] 01-01-2023 18:26-0400 Respiratory rate 16 /min Vishal Jones MD Work Phone: [facility] 01-01-2023 18:26-0400 Systolic blood pressure 138 mm[Hg] Vishal Jones MD Work Phone: [facility] 12-20-2022 09:59-0400 Body temperature 98.6 [degF] Clement Werner MD, MD Work Phone: [facility] 12-20-2022 09:59-0400 Body weight 83.92 kg Clement Werner MD, MD Work Phone: [facility] 12-20-2022 09:59-0400 Diastolic blood pressure 72 mm[Hg] Clement Werner MD, MD Work Phone: [facility] 12-20-2022 09:59-0400 Heart rate 102 /min Clement Werner MD, MD Work Phone: [facility] 12-20-2022 09:59-0400 Respiratory rate 20 /min Clement Werner MD, MD Work Phone: [facility] 12-20-2022 09:59-0400 SaO2% (BldA) [Mass fraction] 98 % Clement Werner MD, MD Work Phone: [facility] 12-20-2022 09:59-0400 Systolic blood pressure 148 mm[Hg] Clement Werner MD, MD Work Phone: [facility] 11-15-2022 09:16-0500 Body weight 81.19 kg Vishal Jones MD Work Phone: [facility] 11-15-2022 09:16-0500 Diastolic blood pressure 60 mm[Hg] Vishal Jones MD Work Phone: [facility] 11-15-2022 09:16-0500 Heart rate 68 /min Vishal Jones MD Work Phone: [facility] 11-15-2022 09:16-0500 Systolic blood pressure 126 mm[Hg] Vishal Jones MD Work Phone: [facility] 10-21-2022 13:55-0500 Body temperature 99.5 [degF] Mikhail Liu Jr., MD Work Phone: [facility] 10-21-2022 13:55-0500 Body weight 79.11 kg Mikhail Liu Jr., MD Work Phone: [facility] 10-21-2022 13:55-0500 Diastolic blood pressure 64 mm[Hg] Mikhail Liu Jr., MD Work Phone: [facility] 10-21-2022 13:55-0500 Heart rate 87 /min Mikhail Liu Jr., MD Work Phone: [facility] 10-21-2022 13:55-0500 Respiratory rate 16 /min Mikhail Liu Jr., MD Work Phone: [facility] 10-21-2022 13:55-0500 SaO2% (BldA) [Mass fraction] 95 % Mikhail Liu Jr., MD Work Phone: [facility] 10-21-2022 13:55-0500 Systolic blood pressure 110 mm[Hg] Mikhail Liu Jr., MD Work Phone: [facility] 10-09-2022 15:04-0500 Body temperature 99.5 [degF] Vishal Jones MD Work Phone: [facility] 10-09-2022 15:04-0500 Body weight 80.29 kg Vishal Jones MD Work Phone: [facility] 10-09-2022 15:04-0500 Diastolic blood pressure 82 mm[Hg] Vishal Jones MD Work Phone: [facility] 10-09-2022 15:04-0500 Heart rate 88 /min Vishal Jones MD Work Phone: [facility] 10-09-2022 15:04-0500 Respiratory rate 16 /min Vishal Jones MD Work Phone: [facility] 10-09-2022 15:04-0500 Systolic blood pressure 142 mm[Hg] Vishal Jones MD Work Phone: [facility] 09-25-2022 13:23-0500 Body weight 80.74 kg Vishal Jones MD Work Phone: [facility] 09-25-2022 13:23-0500 Diastolic blood pressure 72 mm[Hg] Vishal Jones MD Work Phone: [facility] 09-25-2022 13:23-0500 Respiratory rate 18 /min Vishal Jones MD Work Phone: [facility] 09-25-2022 13:23-0500 Systolic blood pressure 136 mm[Hg] Vishal Jones MD Work Phone: [facility] 09-23-2022 10:14-0500 Body height 167.6 cm BRITTNEE Gonzalez MD Work Phone: [facility] 09-23-2022 10:14-0500 Body weight 79.38 kg BRITTNEE Gonzalez MD Work Phone: [facility] 09-23-2022 10:14-0500 Diastolic blood pressure 58 mm[Hg] BRITTNEE Gonzalez MD Work Phone: [facility] 09-23-2022 10:14-0500 Heart rate 114 /min BRITTNEE Gonzalez MD Work Phone: [facility] 09-23-2022 10:14-0500 Systolic blood pressure 116 mm[Hg] BRITTNEE Gonzalez MD Work Phone: [facility] 08-19-2022 15:27-0500 Body temperature 98.1 [degF] Mikhail Liu Jr., MD Work Phone: [facility] 08-19-2022 15:27-0500 Body weight 78.47 kg Mikhail Liu Jr., MD Work Phone: [facility] 08-19-2022 15:27-0500 Diastolic blood pressure 70 mm[Hg] Mikhail Liu Jr., MD Work Phone: [facility] 08-19-2022 15:27-0500 Heart rate 83 /min Mikhail Liu Jr., MD Work Phone: [facility] 08-19-2022 15:27-0500 Respiratory rate 18 /min Mikhail Liu Jr., MD Work Phone: [facility] 08-19-2022 15:27-0500 SaO2% (BldA) [Mass fraction] 96 % Mikhail Liu Jr., MD Work Phone: [facility] 08-19-2022 15:27-0500 Systolic blood pressure 112 mm[Hg] Mikhail Liu Jr., MD Work Phone: [facility] 07-24-2022 15:03-0500 Body temperature 99.5 [degF] Vishal Jones MD Work Phone: [facility] 07-24-2022 15:03-0500 Body weight 77.56 kg Vishal Jones MD Work Phone: [facility] 07-24-2022 15:03-0500 Diastolic blood pressure 72 mm[Hg] Vishal Jones MD Work Phone: [facility] 07-24-2022 15:03-0500 Heart rate 72 /min Vishal Jones MD Work Phone: [facility] 07-24-2022 15:03-0500 Respiratory rate 18 /min Vishal Jones MD Work Phone: [facility] 07-24-2022 15:03-0500 Systolic blood pressure 130 mm[Hg] Vishal Jones MD Work Phone: [facility] 07-15-2022 12:08-0400 Body temperature 100.71 [degF] Rebecca Rossi APRN.ENVIRONMENTAL FIELD SERVICES TECHNICIAN Work Phone: [facility] 07-15-2022 12:08-0400 Body weight 75.75 kg Rebecca Rossi APRN.ENVIRONMENTAL FIELD SERVICES TECHNICIAN Work Phone: [facility] 07-15-2022 12:08-0400 Diastolic blood pressure 86 mm[Hg] Rebecca Rossi APRN.ENVIRONMENTAL FIELD SERVICES TECHNICIAN Work Phone: [facility] 07-15-2022 12:08-0400 Heart rate 120 /min Rebecca Rossi APRN.ENVIRONMENTAL FIELD SERVICES TECHNICIAN Work Phone: [facility] 07-15-2022 12:08-0400 Respiratory rate 20 /min Rebecca Rossi APRN.ENVIRONMENTAL FIELD SERVICES TECHNICIAN Work Phone: [facility] 07-15-2022 12:08-0400 SaO2% (BldA) [Mass fraction] 96 % Rebecca Rossi APRN.ENVIRONMENTAL FIELD SERVICES TECHNICIAN Work Phone: [facility] 07-15-2022 12:08-0400 Systolic blood pressure 142 mm[Hg] Rebecca Rossi APRN.ENVIRONMENTAL FIELD SERVICES TECHNICIAN Work Phone: [facility] 05-15-2022 09:50-0400 Body weight 78.02 kg Vishal Jones MD Work Phone: [facility] 05-15-2022 09:50-0400 Diastolic blood pressure 70 mm[Hg] Vishal Jones MD Work Phone: [facility] 05-15-2022 09:50-0400 Heart rate 68 /min Vishal Jones MD Work Phone: [facility] 05-15-2022 09:50-0400 Respiratory rate 14 /min Vishal Jones MD Work Phone: [facility] 05-15-2022 09:50-0400 Systolic blood pressure 120 mm[Hg] Vishal Jones MD Work Phone: [facility] 03-26-2022 08:42-0400 Body height 169.5 cm Kaye Oneal DO Work Phone: [facility] 03-26-2022 08:42-0400 Body weight 77.56 kg Kaye Onael DO Work Phone: [facility] 03-26-2022 08:42-0400 Diastolic blood pressure 71 mm[Hg] Kaye Oneal DO Work Phone: [facility] 03-26-2022 08:42-0400 Heart rate 82 /min Kaye Oneal DO Work Phone: [facility] 03-26-2022 08:42-0400 SaO2% (BldA) [Mass fraction] 98 % Kaye Oneal DO Work Phone: [facility] 03-26-2022 08:42-0400 Systolic blood pressure 132 mm[Hg] Kaye Oneal DO Work Phone: [facility] 03-25-2022 09:33-0400 Body weight 77.47 kg BRITTNEE Gonzalez MD Work Phone: [facility] 03-25-2022 09:33-0400 Diastolic blood pressure 60 mm[Hg] BRITTNEE Gonzalez MD Work Phone: [facility] 03-25-2022 09:33-0400 Heart rate 70 /min BRITTNEE Gonzalez MD Work Phone: [facility] 03-25-2022 09:33-0400 SaO2% (BldA) [Mass fraction] 98 % BRITTNEE Gonzalez MD Work Phone: [facility] 03-25-2022 09:33-0400 Systolic blood pressure 108 mm[Hg] BRITTNEE Gonzalez MD Work Phone: [facility] 03-21-2022 08:16-0400 Body temperature 98.91 [degF] Tameka Marshall APRN.CNP Work Phone: [facility] 03-21-2022 08:16-0400 Body weight 79.61 kg Tameka Marshall SEAFOOD PROCESS WORKER.ENVIRONMENTAL FIELD SERVICES TECHNICIAN Work Phone: [facility] 03-21-2022 08:16-0400 Diastolic blood pressure 70 mm[Hg] Tameka Marshall SEAFOOD PROCESS WORKER.ENVIRONMENTAL FIELD SERVICES TECHNICIAN Work Phone: [facility] 03-21-2022 08:16-0400 Heart rate 81 /min Tameka Marshall SEAFOOD PROCESS WORKER.ENVIRONMENTAL FIELD SERVICES TECHNICIAN Work Phone: [facility] 03-21-2022 08:16-0400 Systolic blood pressure 132 mm[Hg] Fulshear Marshall SEAFOOD PROCESS WORKER.ENVIRONMENTAL FIELD SERVICES TECHNICIAN Work Phone: [facility] 12-14-2021 09:09-0400 Body temperature 97.9 [degF] Sharda Carl PA-C Work Phone: [facility] 12-14-2021 09:09-0400 Body weight 78.93 kg Sharda Carl PA-C Work Phone: [facility] 12-14-2021 09:09-0400 Diastolic blood pressure 62 mm[Hg] Sharda Carl PA-C Work Phone: [facility] 12-14-2021 09:09-0400 Heart rate 80 /min Sharda Carl PA-C Work Phone: [facility] 12-14-2021 09:09-0400 Respiratory rate 18 /min Sharda Carl PA-C Work Phone: [facility] 12-14-2021 09:09-0400 Systolic blood pressure 110 mm[Hg] Sharda Carl PA-C Work Phone: [facility] 12-08-2021 08:53-0400 Body weight 78.93 kg Vishal Jones MD Work Phone: [facility] 12-08-2021 08:53-0400 Diastolic blood pressure 66 mm[Hg] Vishal Jones MD Work Phone: [facility] 12-08-2021 08:53-0400 Heart rate 78 /min Vishal Jones MD Work Phone: [facility] 12-08-2021 08:53-0400 Respiratory rate 14 /min Vishal Jones MD Work Phone: [facility] 12-08-2021 08:53-0400 Systolic blood pressure 132 mm[Hg] Vishal Jones MD Work Phone: [facility] 08-05-2017 13:14-0500 BMI (Body Mass Index) 26.31 kg/m2 Nikolay Villa [facility] Work Phone: 08-05-2017 13:14-0500 Body weight 76.2 kg [facility] Work Phone: 08-05-2017 13:14-0500 BP Diastolic 58 mm[Hg] Nikolay Villa [facility] Work Phone: 08-05-2017 13:14-0500 BP Systolic 104 mm[Hg] Nikolay Villa [facility] Work Phone: 08-05-2017 13:14-0500 Height 170.18 cm Nikolay Villa [facility] Work Phone: 08-05-2017 13:14-0500 Pulse (Heart Rate) 72 /min Nikolay Villa [facility] Work Phone: 08-05-2017 13:14-0500 Respiratory Rate 20 /min [facility] Work Phone: 08-05-2017 13:14-0500 Weight 76.2 kg [facility] Work Phone: 01-28-2017 10:26-0400 Body height 170.18 cm Ann-Marie Fox Work Phone: [facility] Work Phone: 01-28-2017 10:26-0400 Body mass index (BMI) [Ratio] 26.54 kg/m2 Ann-Marie Fox Work Phone: [facility] Work Phone: 01-28-2017 10:26-0400 Body weight 76.89 kg Ann-Marie Fox Work Phone: [facility] Work Phone: 01-28-2017 10:26-0400 Diastolic blood pressure 50 mm[Hg] Ann-Marie Fox Work Phone: [facility] Work Phone: 01-28-2017 10:26-0400 Heart rate 64 /min Ann-Marie Fox Work Phone: [facility] Work Phone: 01-28-2017 10:26-0400 Respiratory rate 20 /min Ann-Marie Fox Work Phone: [facility] Work Phone: 01-28-2017 10:26-0400 Systolic blood pressure 100 mm[Hg] Ann-Marie Fox Work Phone: [facility] Work Phone: 01-28-2017 10:26-0400 Weight 76.89 kg Asha Jackson RN [facility] Work Phone: 07-25-2016 10:04-0500 Body mass index (BMI) [Ratio] 27.72 kg/m2 [facility] Work Phone: 07-25-2016 10:04-0500 Body surface area Derived from formula 1.92 m2 [facility] Work Phone: 07-25-2016 10:04-0500 Body weight 80.29 kg [facility] Work Phone: 07-25-2016 10:04-0500 Diastolic blood pressure 70 mm[Hg] [facility] Work Phone: 07-25-2016 10:04-0500 Heart rate 60 /min [facility] Work Phone: 07-25-2016 10:04-0500 Respiratory rate 20 /min [facility] Work Phone: 07-25-2016 10:04-0500 Systolic blood pressure 126 mm[Hg] [facility] Work Phone: 05-18-2014 09:29-0400 Body temperature 99 [degF] [facility] Work Phone: 03-08-2014 11:48-0400 Body height 170.18 cm [facility] Work Phone: Encounters Encounter Date Encounter Type Care Provider Facility Start: 09-18-2023 End: 09-19-2023 ambulatory REN CHUA Facility:[facility] Start: 09-01-2023 End: 09-01-2023 ambulatory JORDAN NAJERA Facility:[facility] Start: 08-26-2023 End: 08-26-2023 ambulatory Chapincito Tomlin MD Work Phone: Neurology Procedures Date Procedure Procedure Detail Performing Clinician Start: 07-09-2023 Ct abdomen & pelvis w/contrast material Sam Leei DO Work Phone: Start: 07-09-2023 Ct thorax w/contrast material Sam Leei DO Work Phone: Start: 07-09-2023 Blood count complete auto&auto difrntl wbc Tameka Marshall SEAFOOD PROCESS WORKER.ENVIRONMENTAL FIELD SERVICES TECHNICIAN Work Phone: Start: 03-10-2023 Ct abdomen & pelvis w/contrast material Sam Noble Masci DO Work Phone: Start: 03-10-2023 Ct thorax w/contrast material Sam Noble Masci DO Work Phone: Start: 12-03-[address] attenuation skull base mid-thigh Tameka Marshall SEAFOOD PROCESS WORKER.ENVIRONMENTAL FIELD SERVICES TECHNICIAN Work Phone: Start: 11-27-2022 Mri brain brain stem w/o contrast material Mikhail Liu MD Work Phone: Start: 11-07-2022 Ct abdomen & pelvis w/contrast material Fulshear Marshall SEAFOOD PROCESS WORKER.ENVIRONMENTAL FIELD SERVICES TECHNICIAN Work Phone: Start: 11-07-2022 Basic metabolic pane l calcium total Fulshear Marshall SEAFOOD PROCESS WORKER.ENVIRONMENTAL FIELD SERVICES TECHNICIAN Work Phone: Start: 11-07-2022 HEPATIC FUNCTION PNL Da rby Marshall SEAFOOD PROCESS WORKER.ENVIRONMENTAL FIELD SERVICES TECHNICIAN Work Phone: Start: 09-25-2022 [employer] COVI D-19 BIVALENT BOOSTER VACCINE, AGE 12+ YR Vishal Jones MD Work Phone: Start: 08-21-2022 Ct abdomen & pelvis w/contrast material Tameka Marshall SEAFOOD PROCESS WORKER.ENVIRONMENTAL FIELD SERVICES TECHNICIAN Work Phone: Start: 08-21-2022 Ct thorax w/contrast material Tameka Marshall SEAFOOD PROCESS WORKER.ENVIRONMENTAL FIELD SERVICES TECHNICIAN Work Phone: Start: 08-21-2022 Basic metabolic pane l calcium total Tameka Marshall SEAFOOD PROCESS WORKER.ENVIRONMENTAL FIELD SERVICES TECHNICIAN Work Phone: Start: 08-21-2022 HEPATIC FUNCTION PNL Da rbmichelle Marshall SEAFOOD PROCESS WORKER.ENVIRONMENTAL FIELD SERVICES TECHNICIAN Work Phone: Start: 07-29-2022 PSA screening [facility] benjamín Start: 07-24-2022 Urnls dip stick/tabl et rgnt auto w/o microscopy Vishal Jones MD Work Phone: Start: 07-15-2022 Urnls dip stick/tabl et rgnt auto w/o microscopy Rebecca Rossi SEAFOOD PROCESS WORKER.ENVIRONMENTAL FIELD SERVICES TECHNICIAN Work Phone: Start: 02-26-2022 Ct abdomen & pelvis w/contrast material Fulshear Marshall SEAFOOD PROCESS WORKER.ENVIRONMENTAL FIELD SERVICES TECHNICIAN Work Phone: Start: 02-26-2022 Ct thorax w/contrast material Fulshear Marshall SEAFOOD PROCESS WORKER.ENVIRONMENTAL FIELD SERVICES TECHNICIAN Work Phone: Start: 02-26-2022 Basic metabolic pane l calcium total Fulshear Marshall SEAFOOD PROCESS WORKER.ENVIRONMENTAL FIELD SERVICES TECHNICIAN Work Phone: Start: 09-25-2017 History of placement of stent for coronary artery disease H/O heart artery stent Vishal Jones MD Work Phone: Start: 08-05-2017 End: 08-05-2017 ELECTRIC MOTOR ANALYST Tito Villavicencio Royce ASSOCIATE DIRECTOR OF SALES Work Phone: Start: 08-05-2017 End: 08-05-2017 Follow Up Appt 6 months Tito Villavicencio Royce ASSOCIATE DIRECTOR OF SALES Work Phone: Start: 08-05-2017 End: 08-05-2017 Dietary management education, guidance, and counseling Jakeemanicullen Villa Start: 08-05-2017 End: 08-05-2017 Documentation of current medications Jakeemanicullen Allen Start: 08-05-2017 End: 08-05-2017 ELECTRIC MOTOR ANALYST Tito Villavicencio Royce ASSOCIATE DIRECTOR OF SALES Work Phone: Start: 08-05-2017 End: 08-05-2017 Follow Up Appt 6 months Tito Villavicencio Royce ASSOCIATE DIRECTOR OF SALES Work Phone: Start: 01-28-2017 End: 01-30-2017 *Hepatic Function Panel Frida Son Start: 01-28-2017 End: 01-30-2017 Lipid 1996 panel - Serum or Plasma Earl Huntley MD Start: 01-28-2017 End: 01-28-2017 Documentation of current medications Ann-Marie Fox Work Phone: Start: 01-28-2017 End: 01-30-2017 Hepatic function 2000 panel - Serum or Plasma Earl Huntley MD Start: 01-28-2017 End: 01-30-2017 Lipid 1996 panel - Serum or Plasma Earl Huntley MD Start: 07-25-2016 End: 02-01-2017 *Hepatic Function Panel Amrita Osorio ASSOCIATE DIRECTOR OF SALES Work Phone: Start: 07-25-2016 End: 07-25-2016 ELECTRIC MOTOR ANALYST Amrita Osorio ASSOCIATE DIRECTOR OF SALES Work Phone: Start: 07-25-2016 End: 07-25-2016 Follow Up Appt 6 months Amrita Osorio ASSOCIATE DIRECTOR OF SALES Work Phone: Start: 07-25-2016 End: 02-01-2017 Lipid 1996 panel - Serum or Plasma Amrita Osorio ASSOCIATE DIRECTOR OF SALES Work Phone: Start: 07-25-2016 End: 07-25-2016 Documentation of current medications Angélica Roger RN Start: 07-25-2016 End: 07-25-2016 ELECTRIC MOTOR ANALYST Amrita Osorio ASSOCIATE DIRECTOR OF SALES Work Phone: Start: 07-25-2016 End: 07-25-2016 Follow Up Appt 6 months Amrita Osorio ASSOCIATE DIRECTOR OF SALES Work Phone: Start: 07-25-2016 End: 02-01-2017 Hepatic function 2000 panel - Serum or Plasma Amrita Osorio ASSOCIATE DIRECTOR OF SALES Work Phone: Start: 07-25-2016 End: 02-01-2017 Lipid 1996 panel - Serum or Plasma Amrita Osorio ASSOCIATE DIRECTOR OF SALES Work Phone: Start: 03-05-2016 End: 03-05-2016 Follow Up Appt 6 months Frida Son Start: 03-05-2016 End: 03-05-2016 BONNIE Huntley MD Start: 03-05-2016 End: 03-19-2016 Nuclear stress test -Angela Huntley MD Start: 03-05-2016 End: 03-05-2016 Follow Up Appt 6 months Frida Son Start: 03-05-2016 End: 03-05-2016 BONNIE Huntley MD Start: 03-05-2016 End: 03-19-2016 Nuclear stress test -Angela Huntley MD Start: 02-20-2016 End: 07-25-2016 *Hepatic Function Panel Connie valle PA-C Work Phone: Start: 02-20-2016 End: 07-25-2016 Lipid 1996 panel - Serum or Plasma Connie Martin PA-C Work Phone: Start: 02-20-2016 End: 07-25-2016 Hepatic function 2000 panel - Serum or Plasma Connie Martin PA-C Work Phone: Start: 02-20-2016 End: 07-25-2016 Lipid 1996 panel - Serum or Plasma Connie Martin PA-C Work Phone: Start: 08-28-2015 End: 08-28-2015 ELECTRIC MOTOR ANALYST Connie Martin PA-C Work Phone: Start: 08-28-2015 End: 08-28-2015 Follow Up Appt 6 months Connie valle PA-C Work Phone: Start: 08-28-2015 End: 08-28-2015 JESUS MANUEL Martin PA-C Work Phone: Start: 08-28-2015 End: 08-28-2015 Follow Up Appt 6 months Connie valle PA-C Work Phone: Start: 08-21-2015 End: 08-21-2015 Urinalysis Angélica Roger RN Start: 08-21-2015 End: 08-21-2015 *Hepatic Function Panel Frida Son Start: 08-21-2015 End: 08-21-2015 Lipid 1996 panel - Serum or Plasma Earl Huntley MD Start: 08-21-2015 End: 08-21-2015 Hepatic function 2000 panel - Serum or Plasma Earl Huntley MD Start: 08-21-2015 End: 08-21-2015 Lipid 1996 panel - Serum or Plasma Earl Huntley MD Start: 03-09-2015 End: 03-10-2015 *Hepatic Function Panel Frida Son Start: 03-09-2015 End: 08-17-2015 ELECTRIC MOTOR ANALYST Earl Huntley MD Start: 03-09-2015 End: 03-10-2015 Documentation of current medications Earl Huntley MD Start: 03-09-2015 End: 08-17-2015 Follow Up Appt 1 year Earl Huntley MD Start: 03-09-2015 End: 03-10-2015 Lipid 1996 panel - Serum or Plasma Earl Huntley MD Start: 03-09-2015 End: 03-09-2015 Dietary management education, guidance, and counseling Angélica Roger RN Start: 03-09-2015 End: 08-17-2015 ELECTRIC MOTOR ANALYSTJohn Huntley MD Start: 03-09-2015 End: 03-10-2015 Documentation of current medications Earl Huntley MD Start: 03-09-2015 End: 08-17-2015 Follow Up Appt 1 year Earl Huntley MD Start: 03-09-2015 End: 03-10-2015 Hepatic function 2000 panel - Serum or Plasma Earl Huntley MD Start: 03-09-2015 End: 03-10-2015 Lipid 1996 panel - Serum or Plasma Earl Huntley MD Start: 09-06-2014 End: 09-06-2014 ELECTRIC MOTOR ANALYST Connie Martin PA-C Work Phone: Start: 09-06-2014 End: 09-06-2014 Ecg routine ecg w/least 12 lds w/i&r Connie Martin PA-C Work Phone: Start: 09-06-2014 End: 09-06-2014 Follow Up Appt 6 months Connie valle PA-C Work Phone: Start: 09-06-2014 End: 09-06-2014 JESUS MANUEL Martin PA-C Work Phone: Start: 09-06-2014 End: 09-06-2014 Ecg routine ecg w/least 12 lds w/i&r Connie Martin PA-C Work Phone: Start: 09-06-2014 End: 09-06-2014 Follow Up Appt 6 months Connie valle PA-C Work Phone: Start: 03-08-2014 End: 03-08-2014 Follow Up Appt 6 months Frida Son Start: 03-08-2014 End: 03-08-2014 BONNIE Huntley MD Start: 03-08-2014 End: 03-08-2014 Follow Up Appt 6 months Frida Son Start: 03-08-2014 End: 03-08-2014 BONNIE Huntley MD Start: 10-16-2013 End: 02-08-2014 *Hepatic Function Panel Frida Son Start: 10-16-2013 End: 02-08-2014 Lipid 1996 panel - Serum or Plasma Earl Huntley MD Start: 10-16-2013 End: 02-08-2014 Hepatic function 2000 panel - Serum or Plasma Earl Huntley MD Start: 10-16-2013 End: 02-08-2014 Lipid 1996 panel - Serum or Plasma Earl Huntley MD Start: 09-03-2013 End: 09-03-2013 ELECTRIC MOTOR ANALYST Connie Martin PA-C Work Phone: Start: 09-03-2013 End: 09-03-2013 Ecg routine ecg w/least 12 lds w/i&r Connie Martin PA-C Work Phone: Start: 09-03-2013 End: 09-03-2013 Follow Up Appt 6 months Connie valle PA-C Work Phone: Start: 09-03-2013 End: 09-03-2013 ELECTRIC MOTOR ANALYST Connie Martin PA-C Work Phone: Start: 09-03-2013 End: 09-03-2013 Ecg routine ecg w/least 12 lds w/i&r Connie Martin PA-C Work Phone: Start: 09-03-2013 End: 09-03-2013 Follow Up Appt 6 months Connie valle PA-C Work Phone: Start: 07-16-2013 End: 08-24-2013 *Hepatic Function Panel Frida Son Start: 07-16-2013 End: 08-24-2013 Lipid 1996 panel - Serum or Plasma Earl Huntley MD Start: 07-16-2013 End: 08-24-2013 Hepatic function 2000 panel - Serum or Plasma Earl Huntley MD Start: 07-16-2013 End: 08-24-2013 Lipid 1996 panel - Serum or Plasma Earl Huntley MD Start: 03-09-2013 End: 03-09-2013 Follow Up Appt 6 months Frida Son Start: 03-09-2013 End: 03-09-2013 MMFrida Huntley MD Start: 03-09-2013 End: 03-09-2013 Follow Up Appt 6 months Frida Son Start: 03-09-2013 End: 03-09-2013 MMFrida Huntley MD Start: 12-14-2012 End: 02-05-2013 *Hepatic Function Panel Frida Son Start: 12-14-2012 End: 02-05-2013 Lipid 1996 panel - Serum or Plasma Earl Huntley MD Start: 12-14-2012 End: 02-05-2013 Hepatic function 2000 panel - Serum or Plasma Earl Huntley MD Start: 12-14-2012 End: 02-05-2013 Lipid 1996 panel - Serum or Plasma Earl Huntley MD Start: 07-16-2012 End: 02-05-2013 *Hepatic Function Panel Frida Son Start: 07-16-2012 End: 02-05-2013 Lipid 1996 panel - Serum or Plasma Earl Huntley MD Start: 07-16-2012 End: 02-05-2013 Hepatic function 2000 panel - Serum or Plasma Earl Huntley MD Start: 07-16-2012 End: 02-05-2013 Lipid 1996 panel - Serum or Plasma Earl Huntley MD Start: 07-08-2012 End: 07-08-2012 Follow Up Appt 6 months Frida Son Start: 07-08-2012 End: 07-13-2012 Nuclear stress test -adenosine Earl Huntley MD Start: 07-08-2012 End: 07-08-2012 Follow Up Appt 6 months Frida Son Start: 07-08-2012 End: 07-13-2012 Nuclear stress test -adenosine Earl Huntley MD Start: 01-14-2012 End: 2012 *Hepatic Function Panel Frida Son Start: 01-14-2012 End: 01-14-2012 Follow Up Appt 6 months Frida Son Start: 01-14-2012 End: 2012 Lipid 1996 panel - Serum or Plasma Earl Huntley MD Start: 01-14-2012 End: 01-14-2012 Follow Up Appt 6 months Frida Son Start: 01-14-2012 End: 2012 Hepatic function 2000 panel - Serum or Plasma Earl Huntley MD Start: 01-14-2012 End: 2012 Lipid 1996 panel - Serum or Plasma Earl Huntley MD Plan of Treatment Date Care Activity Detail Author Start: 07-15-2032 Urine microalbumin profile [facility] Start: 02-03-2032 Urine microalbumin profile DTAP,TDAP,TD (4 - Td or Tdap) [facility] Start: 12-02-2029 Urine microalbumin profile DTAP,TDAP,TD (3 - Td or Tdap) [facility] Start: 07-09-2026 Diabetes Screening Diabetes Screening [facility] Start: 03-27-2026 DIABETES SCREEN DIABETES SCREEN [facility] Start: 03-27-2026 Diabetes Screening Diabetes Screening [facility] Start: 02-25-2026 DIABETES SCREEN DIABETES SCREEN [facility] Start: 11-07-2025 DIABETES SCREEN DIABETES SCREEN [facility] Start: 09-25-2025 DIABETES SCREEN DIABETES SCREEN [facility] Start: 08-21-2025 DIABETES SCREEN DIABETES SCREEN [facility] Start: 03-12-2025 DIABETES SCREEN DIABETES SCREEN [facility] Start: 02-26-2025 DIABETES SCREEN DIABETES SCREEN [facility] Start: 01-30-2025 DIABETES SCREEN DIABETES SCREEN [facility] Start: 12-14-2024 DIABETES SCREEN DIABETES SCREEN [facility] Start: 11-12-2024 DIABETES SCREEN DIABETES SCREEN [facility] Start: 03-27-2024 Hepatitis B surface antibody level LDL CHOLESTEROL [facility] Start: 09-25-2023 Hepatitis B surface antibody level LDL CHOLESTEROL [facility] Start: 05-16-2023 Covid-19 Vaccine () Covid-19 Vaccine () [facility] Start: 05-16-2023 Influenza vaccination [facility] Start: 03-27-2023 End: 05-27-2023 LIPID PANEL, NONFASTING [facility] Work Phone: Immunizations Immunization Date Immunization Notes Care Provider Yulia zhong 09-25-2022 COVID-19 booster vaccine, age 12+ yr, bivalent (PFIZER-BIONTECH) Vishal Jones MD Work Phone: [facility] 07-15-2022 tetanus toxoid, redu justin diphtheria toxoid, and acellular pertussis vaccine, adsorbed Vishal Jones MD Work Phone: [facility] Work Phone: 06-14-2022 influenza, high dose seasonal, preservative-free Lab[facility] Work Phone: [facility] 06-14-2022 influenza virus vacc ine, unspecified formulation Kassandra Grady APRN.[facility] Work Phone: [facility] 02-02-2022 tetanus toxoid, redu justin diphtheria toxoid, and acellular pertussis vaccine, adsorbed [facility] Work Phone: [facility] 07-18-2021 influenza, high-dose , quadrivalent vaccine (FLUZONE HIGH DOSE QUADRIVALENT) Vishal Jones MD Work Phone: [facility] 11-21-2020 COVID-19 vaccine, ag e 12+ yr (PFIZER-BIONTECH - PURPLE TOP) Vishal Jones MD Work Phone: [facility] Work Phone: 06-20-2020 zoster vaccine recombinant Vishal Jones MD Work Phone: [facility] 05-27-2020 influenza, high dose seasonal, preservative-free Vishal Jones MD Work Phone: [facility] 05-27-2020 influenza, injectabl e, quadrivalent, preservative free Vishal Jones MD Work Phone: [facility] 04-07-2020 zoster vaccine recombinant Vishal Jones MD Work Phone: [facility] 12-03-2019 hepatitis A vaccine, adult dosage Vishal Jones MD Work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 nourished.. Extremities: Positive findings: joint location: on left elbow swelling. Health Maintenance List RSV Vaccine(1 - 1-dose 60+ series) Never done Influenza Vaccine(1) due on 05/16/2023 Covid-19 Vaccine( - 2022- season) due on 05/16/2023 LDL Cholesterol due on 03/27/2024 Diabetes Screening due on 07/09/2026 DTaP,Tdap,Td Vaccine(5 - Td or Tdap) due on 07/15/2032 Advance Directive Discussion Completed Shingrix Vaccine Completed Pneumococcal Vaccine: 65+ Completed HPV Vaccine Aged Out ASSESSMENT/PLAN: 1. Elbow effusion, left - ICD9: 719.02, ICD10: M25.422 (primary diagnosis) - CONSULT TO ORTHOPAEDICS 2. SALAS (generalized anxiety disorder) - ICD9: 300.02, ICD10: F41.1 - BUPROPION HCL SR 150 MG TABLET,12 HR SUSTAINED-RELEASE Ren Chua APRN.ENVIRONMENTAL FIELD SERVICES TECHNICIAN documented in this encounter [facility] 07-29-2023 Note [facility] 07-24-2023 Note [facility] 07-18-2023 Miscellaneous Notes Form faxed from [facility] Alejandra Farmer Ma Forms printed and given to provider Alejandra Farmer Ma Patient's significant other, Lala calling to say the DME patient will be using for ostomy supplies is [employer]. . This company may contact PCP office. Kiki M Lentine, RN documented in this encounter [facility] 07-16-2023 Miscellaneous Notes Spoke with patient's daughterRita. Given message from provider's office. She verbalizes understanding. Kiki Mas RN Left message for daughter. Letter taken to medical records. Please see Dr. Jones's message below regarding guardianship. Also daughter needs to bring in copies of the POA so we have in the chart. Sylvia Rossi MA Let daughter know the letter regarding her dad having the diagnosis of dementia is ready for cloth picker. For guardianship she needs to go through the courts. I would suggest she talk with the densitometrist representing her father. Patient daughter Rita calling back and she is needing help, she wants to get guardianship over her father. She said he was in the ER for an hour and Dr discharged him home. She knows father will put up a fight and not go into intermediate. She said he is still driving his car and he was charged in court today, he asked for densitometrist, daughter said has continuance. Daughter said it is just getting to be more of a mess to handle. Patient daughter Rita Albert calling she had her father in [facility] ER Friday (07/11)and was released. Daughter said father has court hearing this morning for violating a restraining order, she needs note saying he has dementia. She said she may have to admit him to intermediate, having issues with father's girl friend concerning money and check book. Please advise documented in this encounter [facility] 07-14-2023 Note HNO ID: [id number] Author: Yeni Moore Ma Service: ? Author Type: ? Type: Progress Notes Filed: 07/14/2023 9:29 PM Note Text: Scan on 07/11/2023 10:43 PM by ProviderKvng PA-C: Consultation - Emergency Medicine [facility] 07-14-2023 History of Present illness Narrative Scan on 07/11/2023 10:43 PM by ProviderKvng PA-C: Consultation - Emergency Medicine documented in this encounter [facility] 07-09-2023 Note [facility] 07-09-2023 History of Present illness Narrative Radiology Service Progress Note PATIENT NAME: Sam Hagen DATE OF SERVICE: July 09, 2023 TIME: 4:04 PM PATIENT IDENTITY VERIFICATION COMPLETED USING TWO (2) IDENTIFIERS: Name and Date of confirmed by patient verbally. FALL SCREENING: Has the patient had 2 falls in the last year or 1 fall with injury or currently using an Ambulatory Assistive Device (Walker, Cane, Wheelchair, Crutches, etc.)? No PATIENT GENDER DATA: Male PATIENT RELEVANT IMPLANT DATA REVIEWED: Yes RADIOLOGY DEPARTMENT: CT; Exam(s) Completed: Chest Abdomen Pelvis PERIPHERAL IV DATA: power port accessed by [employer] SIGNED BY: RT Arturo(R) July 09, 2023 4:04 PM documented in this encounter [facility] 06-30-2023 Miscellaneous Notes See TE dated 06/30/23. Olamide Verdin LPN Daughter/Rita BAE, returned call from Dr. Liu office. Given message in previous encounter. Rita agreeable for patient to see [facility]. States she has to do something as she doesn't want him to hurt someone or himself. Please place referral and call her to schedule appt. Today Rita can be reached at [phone] Tomorrow can be reached at [phone] documented in this encounter [facility] 06-30-2023 Miscellaneous Notes Phone call placed brief message to contact a nurse. When patient's daughter (Roseanne Salinas ) listed on chart returns call Dr. Liu will place an order for patient to be evaluated at the center for [facility] if patient is agreeable. Please advise. Nessa Cotto LPN Daughter (Rita) calls to request medication for patient to help with anxiety and calming him down as recommended to contact Dr. Liu by Dr. Jones (TE 06/26/2023). Patient continues to drive, becomes angry if they try to take the keys. Behaviors worse in the evening, paces, at bedtime if girlfriend doesn't sleep in bed he gets up every 15 minutes. Police were involved Friday night 06/27/2023, when patient drove to his ex's house that has a restraining order against him because he thought she had called him . No call was made to patient. Rita reports that the police didn't do anything because with last legal encounter patient was deemed incompetent to stand trial. Yaz Michaels RN documented in this encounter [facility] 06-26-2023 Miscellaneous Notes Daughter returned call and given provider's message below. Meka Capps RN Left message with daughter to contact office. Tammi Vasquez MA Let daughter know she will lida to address this concern with Dr. Liu his neurologist who he sees for his dementia. It was also Dr. Liu who said he should not be driving and I reminded the patient of this fact at the last appt. It may be time to consider tank terminal gauger placement in a SNF with a dementia unit. Pt's daughter Rita has concerns, states pt was told at his last OV that he is to not be driving any more. Rita said pt is still driving, states he gets angry when they take the keys from him. States he ransacked his girlfriend's room trying to find his keys. Rita reports pt swears at them & the other day he threw a cup with coffee in it across the room at his girlfriend. Rita is asking if pcp can prescribe something that will calm him down? She reports pt is now able to have sex again - states he was not able to for about 20 yrs d/t prostate cancer however he can now. Please advise. Asha Frank LPN documented in this encounter [facility] 06-06-2023 Miscellaneous Notes TC to Rita, spoke briefly and notified Rita that concerns need to be addressed with Neuro. Call was dropped d/t cell medical office receptionist assistant. Regarding driving privilege's- Neuro revoked privilege's so again- Rita needs to speak with Neurology about behaviors, driving, etc. Juan Kimball LPN Please advise daughter that this questions and concerns should be addressed with Sam's neurologist. Also she should call the equity research associate. Per Dr. Liu's last office note Sam was informed he should not be driving. He may need admitted to local hospital for a Geripsych consult. Patient's daughter calls and states that they have taken away patient's keys so that patient could not drive. Patient found keys where they were hidden and took keys and drove off giving r&d engineer the bird stating f you and if she tried taking the keys again he would bash her head in. Patient is focused on sex. Patient's behavior has been becoming more aggressive especially at night. Patient is very nice and polite in morning however at night he treats everyone horrible. Usually patient starts behaviors starts after 3 pm. Daughter asking if there is anything that can be given to mellow out the patient. Patient asking if Dr. Jones can give her a call [phone]. Please review and advise, Nora Berry RN documented in this encounter [facility] 06-03-2023 Miscellaneous Notes Spoke with pt and information listed below given. Pt verbalizes understanding. Tami Cotto LPN Let patient know with his risk of falls, being on a muscle relaxer is not a good idea. Would recommend OTC lidocaine patches to use on the lower back. Pt states the lady he lives with told him he had been on Baclofen before. He states he has been having back spasms, and then will have a bladder leak. Please find out why patient requesting refill. It has not been prescribed in over a year. Sharda Carl PA-C Last Office Visit: 05/07/2023 Future Office Visit: 10/08/2023 Requested Prescriptions Pending Prescriptions Disp Refills baclofen 5 mg tablet 15 tablet 0 Sig: Take 1 tablet by mouth daily at bedtime. documented in this encounter [facility] 05-29-2023 Note [facility] 05-29-2023 Instructions Kassandra Grady APRN.ENVIRONMENTAL FIELD SERVICES TECHNICIAN - 05/29/2023 2:58 PM EDT ASSESSMENT/PLAN: 1. Upper respiratory virus - ICD9: 465.9, ICD10: J06.9 (primary diagnosis) - Discussed viral etiology and rationale for treatment. - COVID/flu/RSV sent - Tessalon perles TID - Symptomatic treatment with prn analgesia - Supportive care with fluids and rest - The patient may also use OTC decongestants prn. - Follow up in 3-5 days if symptoms persist or sooner if worsening of symptoms 2. Acute cough - ICD9: 786.2, ICD10: R05.1 - See above - COVID & INFLUENZA A/B & RSV NAAT, ROUTINE - COVID NAAT, UPPER RESPIRATORY, ROUTINE - ROUTINE FLU A/B + RSV E Bijan [employer] Student TEACHING PROVIDER (Physician/PA/SEAFOOD PROCESS WORKER) NOTE OF PERSONAL INVOLVEMENT IN CARE: I have personally seen and examined the patient and performed the medical decision-making components. I have reviewed the Advanced Practice Registered Nurse (SEAFOOD PROCESS WORKER) Student's documentation and verified the findings in the note as written. Any additions or changes are noted in bold/italics. Signature: Kassandra Grady Date: 05/29/2023 Time: 2:58 PM documented in this encounter [facility] 05-29-2023 History of Present illness Narrative This note was created using Monthlys[employer]. Subjective Sam Hagen is a 83 year old male. Patient presents with three days of cough and congestion. Patient denies any fever, chest pain, or shortness of breath. Cough produces small amount of clear sputum. He denies any interference with ADL. He has not tried any OTC medications for symptom relief. He does not know of any exposure it illness. He is accompanied by a friend today. The history is provided by the patient. Cough Associated symptoms include rhinorrhea. Pertinent negatives include no chest pain, no chills, no ear pain, no headaches, no sore throat, no shortness of breath and no wheezing. Review of Systems Constitutional: Negative for activity change, chills, fatigue and fever. HENT: Positive for congestion and rhinorrhea. Negative for ear discharge, ear pain, postnasal drip, sinus pressure, sinus pain and sore throat. Respiratory: Positive for cough. Negative for shortness of breath and wheezing. Cardiovascular: Negative for chest pain. Gastrointestinal: Negative for abdominal pain, diarrhea, nausea and vomiting. Neurological: Negative for headaches. All other systems reviewed and are negative. Objective BP 132/66 Pulse 85 Temp 36.9 C (98.5 F) Resp 23 Wt 80.7 kg (178 lb) SpO2 99% BMI 28.27 kg/m PAST MEDICAL HISTORY Diagnosis Date Arthritis of right hip 09/25/2017 Arthritis, lumbar spine 09/25/2017 Bilateral carotid artery stenosis 02/04/2022 US 01/2022: L side 60-80% R side 40-60%. Consult to vasc Bladder stone 09/25/[address] Bagley BPH with obstruction/lower urinary tract symptoms BPH with obstruction/lower urinary tract symptoms Dr. Hendrix Calculus of gallbladder with chronic cholecystitis without obstruction 06/13/2021 Chronic midline back pain 10/20/2017 Cog-wheel rigidity 06/18/2019 left upper extrmity, right upper extremity lead piping Colon cancer (HCC) 06/30/[address] Greenberg, Had extension into the bladder wall and hd a partial cystectomy. [facility]ostomy care ([facility]) 09/25/[address] (HCC) 09/25/2017 Coronary artery disease involving solomon coronary artery 09/25/[address] Siddiqui [id number] DDD (degenerative disc disease), lumbar 12/14/2021 Dementia without behavioral disturbance (HCC) Seeing Dr Liu Elevated hemoglobin A1c 07/30/2018 Essential hypertension 04/02/2011 Essential tremor 08/16/2019 SALAS (generalized anxiety disorder) 01/01/2023 Generalized weakness 06/18/2019 H/O heart artery stent 09/25/2017 4 stents 1993 History of DVT (deep vein thrombosis) 09/25/2017 1st clot end of Aug 2017, started on Eliquis 09/15/2017 needs to be on till 03/15/2018 S/P colectomy History of GA (myocardial infarction) 1993 History of prostate cancer seeing Dr. White Hyperlipidemia, mixed 09/25/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) 06/13/2021 Living will on file at physician's office 09/25/2022 DPA: Roseanne Albert, (daughter) Malignant neoplasm of ascending colon (HCC) 07/29/2017 Malignant neoplasm of sigmoid colon (HCC) 07/29/2017 Medicare annual wellness visit, subsequent 07/30/2018 Medicare part B: 03/15/2017 last done: 08/17/2019 Mixed incontinence 02/16/2020 Nerve pain 09/25/2017 Right side hip and up the spine Parastomal hernia without obstruction or gangrene Paroxysmal atrial fibrillation (HCC) s/p colectomy 2016. 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 Situational depression 08/17/2019 Resolved as of 02/2020 Spinal stenosis, lumbar region with neurogenic claudication 08/19/2022 Tarsal tunnel syndrome of right side 06/23/2019 NCS 06/23/2019 Ventral hernia without obstruction or gangrene 09/24/2021 PAST SURGICAL HISTORY Procedure Laterality Date ANGIOPLASTY 11/13/1993 CARPAL TUNNEL Bilateral CATARACT EXTRACTION HX Bilateral right 2016 and left 2018 CYSTOSCOPY AND TREATMENT botox injection ECHOCARDIOGRAM 07/05/2017 HEART CATHETERIZATION 02/24/2002 LAPAROSCOPY SURG RPR INITIAL INGUINAL HERNIA 01/11/09 PAST SURGICAL HISTORY OF 07/03/2017 COLECTOMY ABDOMINAL W/O PROCTECTOMY W/ ILEOSTOMY/ILEOPROCTOSTOMY, TOTAL RECONSTRUCTION ROTATOR CUFF AVULSION CHRONIC left RPR INGUN HERNIA SLIDING ANY AGE LIH RPR UMBILICAL HRNA 5 YRS/> REDUCIBLE 01/11/09 SIGMOIDOSCOPY 07/02/2017 and 07/2019 moderately differentiated adenocarcinoma-sigmoid colon mass ALLERGIES Patient has no known allergies. MEDICATIONS tamsulosin (FLOMAX) 0.4 mg Take 1 capsule by mouth daily at bedtime. hydrOXYzine HCl (ATARAX) 25 mg tablet Take 0.5 tablets by mouth three times daily as needed. gabapentin (NEURONTIN) 100 mg capsule Take 1 capsule by mouth three times daily for 180 days. atorvastatin (LIPITOR) 10 mg tablet Take 1 tablet by mouth daily at bedtime. For cholesterol. buprenorphine (BUTRANS) 10 mcg/hour Apply 1 Patch as directed one time a week for 7 days. Per pain management. buPROPion SR (WELLBUTRIN SR) 100 mg 12 hr tablet Take one tab once a day for two weeks then go to taking one tablet twice a day oxybutynin ER (DITROPAN XL) 10 mg 24 hr tablet Take 10 mg by mouth once daily. baclofen (LIORESAL) 10 mg tablet Take 0.5-1 tablets by mouth three times daily as needed. For spasms. nitroglycerin sublingual (NITROQUICK) 0.4 mg SL tablet Q5M mirtazapine (REMERON) 30 mg tablet Take 1 tablet by mouth daily at bedtime. aspirin, enteric coated (ECOTRIN LOW STRENGTH) 81 mg EC tablet Take 1 tablet by mouth once daily. atenolol (TENORMIN) 25 mg tablet Take 0.5 tablets by mouth once daily. isosorbide mononitrate ER (IMDUR) 60 mg 24 hr tablet Take 60 mg by mouth once daily. benzonatate (TESSALON PERLES) 100 mg capsule Take 2 capsules by mouth three times daily as needed for cough. FAMILY HISTORY Problem Relation Age of Onset Prostate Cancer Father Cancer Father skin Heart Mother [place] late 50's Stroke Mother Diabetes Mother Social History Tobacco Use Smoking status: Never Smokeless tobacco: Current Types: Chew Vaping Use Vaping Use: Never used Substance Use Topics Alcohol use: Yes Alcohol/week: 14.0 standard drinks of alcohol Types: 14 Shots of liquor per week Comment: drinks two shots a night Drug use: No Physical Exam Vitals reviewed. Constitutional: General: He is not in acute distress. Appearance: Normal appearance. He is normal weight. He is not ill-appearing or toxic-appearing. HENT: Right Ear: Tympanic membrane, ear canal and external ear normal. No tenderness. There is no impacted cerumen. Tympanic membrane is not perforated, erythematous, retracted or bulging. Left Ear: Tympanic membrane, ear canal and external ear normal. No tenderness. There is no impacted cerumen. Tympanic membrane is not perforated, erythematous, retracted or bulging. Nose: Congestion present. Right Sinus: No maxillary sinus tenderness or frontal sinus tenderness. Left Sinus: No maxillary sinus tenderness or frontal sinus tenderness. Mouth/Throat: Mouth: Mucous membranes are moist. Pharynx: Oropharynx is clear. Uvula midline. No pharyngeal swelling, oropharyngeal exudate, posterior oropharyngeal erythema or uvula swelling. Cardiovascular: Rate and Rhythm: Normal rate and regular rhythm. Pulmonary: Effort: Pulmonary effort is normal. No respiratory distress. Breath sounds: Normal breath sounds. Neurological: General: No focal deficit present. Mental Status: He is alert and oriented to person, place, and time. Mental status is at baseline. Psychiatric: Mood and Affect: Mood normal. Behavior: Behavior normal. Thought Content: Thought content normal. Judgment: Judgment normal. Assessment and Plan ASSESSMENT/PLAN: 1. Upper respiratory virus - ICD9: 465.9, ICD10: J06.9 (primary diagnosis) - Discussed viral etiology and rationale for treatment. - COVID/flu/RSV sent - Tessalon perles TID - Symptomatic treatment with prn analgesia - Supportive care with fluids and rest - The patient may also use OTC decongestants prn. - Follow up in 3-5 days if symptoms persist or sooner if worsening of symptoms 2. Acute cough - ICD9: 786.2, ICD10: R05.1 - See above - COVID & INFLUENZA A/B & RSV NAAT, ROUTINE - COVID NAAT, UPPER RESPIRATORY, ROUTINE - ROUTINE FLU A/B + RSV E Bijan [employer] MANA[employer] Student TEACHING PROVIDER (Physician/PA/SEAFOOD PROCESS WORKER) NOTE OF PERSONAL INVOLVEMENT IN CARE: I have personally seen and examined the patient and performed the medical decision-making components. I have reviewed the Advanced Practice Registered Nurse (SEAFOOD PROCESS WORKER) Student's documentation and verified the findings in the note as written. Any additions or changes are noted in bold/italics. Signature: Kassandra Grady Date: 05/29/2023 Time: 2:58 PM documented in this encounter [facility] 05-20-2023 Note [facility] 05-20-2023 History of Present illness Narrative Patient's home health 485 form / care plan for certification period 05/08/2023 to 07/06/2023 reviewed and signed. Relevant medical records were reviewed. Changes were communicated to home health agency documented in this encounter [facility] 05-20-2023 Miscellaneous Notes Info noted. Zenaida from [facility] Home Health calling with OT plan of care, 2 visits weekly for 3 weeks working on fall prevention and balance training. This is delay of care since she had been on vacation. No return call is needed. documented in this encounter [facility] 05-16-2023 Miscellaneous Notes Peggy called and notified that ok to collect UA C & S. Peggy voiced understanding. Nora Berry RN Ok for nursing to collect UA, C&S. As far as home health POC, this is noted. The following approved medication requests have been transmitted electronically. Requested Prescriptions Signed Prescriptions Disp Refills hydrOXYzine HCl (ATARAX) 25 mg tablet 60 tablet 1 Sig: Take 0.5 tablets by mouth three times daily as needed. Authorizing Provider: VISHAL JONES Ordering User: JONNA SUN APRN.SOULEYMANE Crystal calling from [facility] to report plan of care for patient and group home will visit patient 1 time a week for 3 weeks. longterm will work with patient on medication management. Patient c/o burning and urine is dark. Ok to collect urine for analysis? Please review and Advise, Nora Berry RN documented in this encounter [facility] 05-13-2023 Miscellaneous Notes Opened in Error documented in this encounter [facility] 05-13-2023 Miscellaneous Notes Noted. Rosie speech therapist from [facility] calling with update on pt. States she will be seeing patient 1x per week for 4 weeks for family dementia education. Barbara Olivares RN documented in this encounter [facility] 05-12-2023 Miscellaneous Notes Spoke with patient's daughter. Given message from provider's office. She verbalizes understanding. Kiki Mas RN Left a detailed message for Daughter to call the office and ask to speak to a nurse. Tami Cotto LPN Let caregiver know Sam's nitroglycerin comes from the [facility]. The following approved medication requests have been transmitted electronically. Requested Prescriptions Signed Prescriptions Disp Refills gabapentin (NEURONTIN) 100 mg capsule 90 capsule 5 Sig: Take 1 capsule by mouth three times daily for 180 days. Authorizing Provider: VISHAL JONES MD Last refill gabapentin listed as med update Last refill nitro 10/09/22 Qty: 25 with 1 refill [facility] 05/07/23 NOV 10/08/23 Natalia Lopez LPN Pts Caregiver states he still takes the gabapentin but should take the 100 mg. States pharmacy does not have refill request. Patient has been identified by name and date of : Yes Last office visit in this department: 05/07/2023 RX INSTRUCTIONS: Patient aware RX will be sent to pharmacy. No need to notify patient. Patient phones requesting refills as follows: Requested Prescriptions Pending Prescriptions Disp Refills gabapentin (NEURONTIN) 100 mg capsule 90 capsule 5 Sig: Take 1 capsule by mouth three times daily for 180 days. Decreased per hospitalist at [facility] due to acute encephalopathy felt to be from poly pharmacy. nitroglycerin sublingual (NITROQUICK) 0.4 mg SL tablet 25 tablet 1 Sig: Q5M Please review and advise. Shannon Gleason documented in this encounter [facility] 05-09-2023 Miscellaneous Notes Called and left detailed message on Pallavi identifiable VM with responses below from Provider. Notified Shannon that Rx has been sent to [facility]. If questions she is to call office and speak with Triage Nurse. Radha Ramirez Ma Let shannon know I'm ok with group home and head loft worker consults. Also I sent in a script for the lipitor. I'm hesitant to restart the atenolol. It looks like he has probably been off it for the past 6 months and his BP in the office recently was 112/72. I would want nursing to monitor and up date me in a week or two. Shannon with [facility] calling and requesting [facility] and [facility] [employer] Specialist orders for patient. Please call Shannon back at [phone] with reply. Hsannon states she notes 3 medications on pt's hospital discharge list that patient does not have at home currently: atenolol, atorvastatin and Vit D 50,000. States that if patient is to be on any of these medications to call in refill scripts for them. Scripts pended for atenolol and atorvastatin. Pt not currently ordered Vit D3-therefore not pended. Requested Prescriptions Pending Prescriptions Disp Refills atenolol (TENORMIN) 25 mg tablet 30 tablet 5 Sig: Take 0.5 tablets by mouth once daily. atorvastatin (LIPITOR) 10 mg tablet 90 tablet 1 Sig: Take 1 tablet by mouth daily at bedtime. For cholesterol. Last encounter with this provider: 05/07/2023 Next appt: 10/08/2023 Meka Capps RN documented in this encounter [facility] 05-08-2023 Note HNO ID: [id number] Author: Yoko Osborn RN Service: ? Author Type: Registered Nurse Type: Progress Notes Filed: 05/08/2023 11:02 AM Note Text: no show. [facility] 05-08-2023 History of Present illness Narrative no show. documented in this encounter [address]23-2023 Note [facility] 05-07-2023 Instructions Vishal Jones MD - 05/07/2023 7:35 PM EDT Patient advised he should no longer be driving. He was told he should not be drinking any alcohol while on the pain meds. He should not take any further Lorazepam and if has any at home it should be discarded. His Gabapentin should be 100 mg three times a day and no more. His hydroxyzine 25 mg should be only 1/2 a tab up to three times a day for anxiety. Patient needs to contact [facility] to virgilio a follow up appt with Niranjan Jimenez for his fractured elbow. Call [phone]. documented in this encounter [facility] 05-07-2023 History of Present illness Narrative Chief Complaint Patient presents with: Hospital F/U HPI Sam Hagen is a 83 year old male who presents here today for hospital follow up. Office visit - hospital follow up Patient was admitted to [facility] on 04/17/2023 after a fall. C/o multiple falls. He has a cane and walker at home that he claimed he was not using regularly. Patient c/o pain in the left upper extremity. X-ray of the LUE showed a non-displaced ulnar fracture with soft tissue swelling. There was concern for a cellulitis and was placed on ceftriaxone. He was also found to have a UTI for which the ceftriaxone was started. Due to some confusion a head CT was done and was negative. Was diagnosed with acute encephalopathy felt to be secondary to polypharmacy. His hydroxyzine was decreased due to his memory issues to 25 mg 1/2 a tab TID prn and the baclofen was stopped. He has been on Buprenorphine from pain management and that was not adjusted. His gabapentin was decreased to 100 mg TID due to the acute memory issues. Patient was transferred to TCU for Rehab but patient can not tell me how many days he was there. He cannot tell me the name of the provider that prescribes his buprenorphine that he gets every month. He can not tell me the gianluca he was discharged home, with was 05/02/2023. He has not set up an appt with ortho for f/u on the elbow fracture and is not wearing a sling. Says he walked out of the hospital with the sling in an bag. He was advised not to drive. Is to be getting C through [facility]. Says he has not heard from them yet. Per our notes they requested a delayed start for tomorrow or Friday. Patient was having 1-2 shots of black Velvet a night. Patient has been trying to use his walking more regularly to reduce risk of falls. Past medical history, appointments, medications, allergies reviewed. Previous Medical History PAST MEDICAL HISTORY Diagnosis Date Arthritis of right hip 09/25/2017 Arthritis, lumbar spine 09/25/2017 Bilateral carotid artery stenosis 02/04/2022 US 01/2022: L side 60-80% R side 40-60%. Consult to [facility] Bladder stone 09/25/[address] Bagley BPH with obstruction/lower urinary tract symptoms BPH with obstruction/lower urinary tract symptoms Dr. Hendrix Calculus of gallbladder with chronic cholecystitis without obstruction 06/13/2021 Chronic midline back pain 10/20/2017 Cog-wheel rigidity 06/18/2019 left upper extrmity, right upper extremity lead piping Colon cancer (HCC) 06/30/[address] Greenberg, Had extension into the bladder wall and hd a partial cystectomy. Colostomy care (HCC) 09/25/[address] (HCC) 09/25/2017 Coronary artery disease involving solomon coronary artery 09/25/[address] Siddiqui [id number] DDD (degenerative disc disease), lumbar 12/14/2021 Dementia without behavioral disturbance (HCC) Seeing Dr Liu Elevated hemoglobin A1c 07/30/2018 Essential hypertension 04/02/2011 Essential tremor 08/16/2019 SALAS (generalized anxiety disorder) 01/01/2023 Generalized weakness 06/18/2019 H/O heart artery stent 09/25/2017 4 stents 1993 History of DVT (deep vein thrombosis) 09/25/2017 1st clot end of Aug 2017, started on Eliquis 09/15/2017 needs to be on till 03/15/2018 S/P colectomy History of GA (myocardial infarction) 1993 History of prostate cancer seeing Dr. Prano Hyperlipidemia, mixed 09/25/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) 06/13/2021 Living will on file at physician's office 09/25/2022 DPA: Roseanne Albert, (daughter) Malignant neoplasm of ascending colon (HCC) 07/29/2017 Malignant neoplasm of sigmoid colon (HCC) 07/29/2017 Medicare annual wellness visit, subsequent 07/30/2018 Medicare part B: 03/15/2017 last done: 08/17/2019 Mixed incontinence 02/16/2020 Nerve pain 09/25/2017 Right side hip and up the spine Parastomal hernia without obstruction or gangrene Paroxysmal atrial fibrillation (HCC) s/p colectomy 2016. 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 Situational depression 08/17/2019 Resolved as of 02/2020 Spinal stenosis, lumbar region with neurogenic claudication 08/19/2022 Tarsal tunnel syndrome of right side 06/23/2019 NCS 06/23/2019 Ventral hernia without obstruction or gangrene 09/24/2021 Previous Surgical History PAST SURGICAL HISTORY Procedure Laterality Date ANGIOPLASTY 11/13/1993 CARPAL TUNNEL Bilateral CATARACT EXTRACTION HX Bilateral right 2016 and left 2018 CYSTOSCOPY AND TREATMENT botox injection ECHOCARDIOGRAM 07/05/2017 HEART CATHETERIZATION 02/24/2002 LAPAROSCOPY SURG RPR INITIAL INGUINAL HERNIA 01/11/09 PAST SURGICAL HISTORY OF 07/03/2017 COLECTOMY ABDOMINAL W/O PROCTECTOMY W/ ILEOSTOMY/ILEOPROCTOSTOMY, TOTAL RECONSTRUCTION ROTATOR CUFF AVULSION CHRONIC left RPR INGUN HERNIA SLIDING ANY AGE LIH RPR UMBILICAL HRNA 5 YRS/> REDUCIBLE 01/11/09 SIGMOIDOSCOPY 07/02/2017 and 07/2019 moderately differentiated adenocarcinoma-sigmoid colon mass Family History FAMILY HISTORY Problem Relation Age of Onset Prostate Cancer Father Cancer Father skin Heart Mother [place] late 50's Stroke Mother Diabetes Mother Patient Allergies ALLERGIES No Known Allergies Current Medications Current Outpatient Medications on File Prior to Visit Medication Sig gabapentin (NEURONTIN) 300 mg capsule Take 2 capsules by mouth twice daily for 360 days. (Patient taking differently: Take 300 mg by mouth twice daily. Take one tablet twice daily) buPROPion SR (WELLBUTRIN SR) 100 mg 12 hr tablet Take one tab once a day for two weeks then go to taking one tablet twice a day oxybutynin ER (DITROPAN XL) 10 mg 24 hr tablet Take 10 mg by mouth once daily. baclofen (LIORESAL) 10 mg tablet Take 0.5-1 tablets by mouth three times daily as needed. For spasms. nitroglycerin sublingual (NITROQUICK) 0.4 mg SL tablet Q5M atorvastatin (LIPITOR) 10 mg tablet Take 1 tablet by mouth daily at bedtime. For cholesterol. hydrOXYzine HCl (ATARAX) 25 mg tablet Take 1 tablet by mouth three times daily as needed. mirtazapine (REMERON) 30 mg tablet Take 1 tablet by mouth daily at bedtime. aspirin, enteric coated (ECOTRIN LOW STRENGTH) 81 mg EC tablet Take 1 tablet by mouth once daily. buprenorphine 7.5 mcg/hour ptwk apply 1 patch to CLEAN, DRY, AND INTACT SKIN and REPLACE every 7 days LORazepam (ATIVAN) 1 mg tablet Take 1 mg by mouth at bedtime as needed. atenolol (TENORMIN) 25 mg tablet Take 0.5 tablets by mouth once daily. naproxen (NAPROSYN ORAL) Take 1 tablet by mouth once daily as needed. solifenacin 10 mg tablet Take 10 mg by mouth once daily. isosorbide mononitrate ER (IMDUR) 60 mg 24 hr tablet Take 60 mg by mouth once daily. No current facility-administered medications on file prior to visit. Social History Social History Tobacco Use Smoking status: Never Smokeless tobacco: Current Types: Chew Vaping Use Vaping Use: Never used Substance Use Topics Alcohol use: Yes Alcohol/week: 2.0 standard drinks of alcohol Types: 2 Shots of liquor per week Comment: OCC Drug use: No Review of Symptoms REVIEW OF SYSTEMS Has mild pain in the left elbow. No dysuria or blood. Has occasional urgency at night. No fevers or chills no bladder pain. EXAM: BP 112/72 (BP Site: Left Arm, BP Position: Sitting, BP Cuff Size: Regular Adult) Pulse 88 Temp 36.8 C (98.3 F) (Tympanic) Resp 18 Wt 79.8 kg (176 lb) BMI 27.95 kg/m General Appearance: Well appearing, alert, in no acute distress, well-hydrated, well nourished.. Skin: Skin color, texture, turgor normal, no suspicious rashes or lesions. No signs of cellulitis of the left upper extremity. Has healing abrasions on his knees and right shine. No cellulitis. Lungs: Lungs clear to auscultation. No wheezing, rhonchi, rales.. Heart: RRR without murmur, gallop, or rubs. No ectopy. Abdomen: Normal abdominal exam, Abdomen soft, non-tender. Bowel sounds normal. No masses, organomegaly. Musculoskeletal: Is moving the left elbow without any issues. Health Maintenance List COVID-19 VACCINE(5 - Pfizer series) due on 01/23/2023 INFLUENZA(1) due on 05/16/2023 LDL CHOLESTEROL due on 03/27/2024 DIABETES SCREEN due on 03/27/2026 DTAP,TDAP,TD(5 - Td or Tdap) due on 07/15/2032 ADVANCE DIRECTIVE DISCUSSION Completed SHINGRIX VACCINE Completed PNEUMOCOCCAL: 65+ Completed HPV VACCINE Aged Out Data reviewed Hospital admission papers and TCU papers. A/P ASSESSMENT/PLAN: 1. Acute encephalopathy - ICD9: 348.30, ICD10: G93.40 (primary diagnosis) - secondary to poly pharmacy. Patient instructed: 1) not be drinking any alcohol while on the pain meds. 2) He should not take any further Lorazepam and if has any at home it should be discarded. 3) His Gabapentin should be 100 mg three times a day and no more. 4) His hydroxyzine 25 mg should be only 1/2 a tab up to three times a day for anxiety. 2. Dementia without behavioral disturbance (HCC) - ICD9: 294.20, ICD10: F03.90 - patient advised he should no longer be driving for safty for himself and others. 3. Closed nondisplaced fracture of styloid process of left ulna, initial encounter - ICD9: 813.43, ICD10: S52.615A - patient advised of need to f/u with ortho and number provided. 4. Acute cystitis without hematuria - ICD9: 595.0, ICD10: N30.00 - resolved 5. Cellulitis of skin - ICD9: 682.9, ICD10: L03.90 - resolved. Keep future f/u appt or sooner if issues. I spent a total of 45 minutes on the date of the service which included preparing to see the patient, [id number] patient care, completing clinical documentation, performing a medically appropriate examination, counseling and educating the patient/family/caregiver and ordering medications, tests, or procedures. Vishal Jones MD documented in this encounter [facility] 05-06-2023 Miscellaneous Notes Left detailed message for [facility] Ting. Sylvia Rossi MA Let [facility] know I will follow and sign orders. Ok with delayed start. Ting from [facility] Home Health calling received orders for PT/OT/Speech for patient. Discharged 05/05 from [facility] TCU, falls, fractured left ulna. Asking if PCP would follow patient and sign orders? Asking for delay of care verbal order due to patient having follow up appt scheduled with PCP for 05/07, can not have visit with home health same day with insurance billing. Can not start care until or Friday with the patient. Please advise documented in this encounter [facility] 04-23-2023 Note HNO ID: [id number] Author: Tika Kearney LPN Service: ? Author Type: ? Type: Progress Notes Filed: 04/23/2023 3:22 PM Note Text: Scan on 04/23/2023 11:50 AM by ProviderKvng PA-C [facility] 04-23-2023 History of Present illness Narrative Scan on 04/23/2023 11:50 AM by Provider, External, PA-C documented in this encounter [facility] 04-18-2023 Note [facility] 04-18-2023 History of Present illness Narrative ER/H&P Scan on 04/17/2023 6:48 PM by ProviderKvng PA-C: Consultation - Emergency Medicine Scan on 04/17/2023 4:09 PM by ProviderKvng PA-C documented in this encounter [facility] 04-17-2023 Note [facility] 04-17-2023 History of Present illness Narrative Scan on 04/17/2023 11:20 AM by ProviderKvng PA-C: X-ray Scan on 04/17/2023 11:18 AM by ProviderKvng PA-C: CT Scan Scan on 04/17/2023 1:22 PM by ProviderKvng PA-C: Ultrasound Scan on 04/17/2023 11:21 AM by ProviderKvng PA-C: X-ray documented in this encounter [facility] 04-17-2023 Note [facility] 04-02-2023 Miscellaneous Notes Noted. Spoke with pt and pt's daughter and they were given provider's message below with verbalized understanding from both. Pt reports no fevers and no blood in ileostomy bag. Reports urine is about the color of a beer. Pt's daughter reports pt has slight chills but this is not new. Left message for patient to contact office. Sylvia Rossi MA Let patient know his lipid panel showed Trigs elevated at 293 (goal<150), HDL good at 46 and LDL ok at 89. Advise working on reduced fat in diet. Blood sugar test improved but still elevated. Continue to work on reduced sugars, sweets, carbs and starches in diet. She is having any fever's chills or blood in his ileostomy bag. Also see if urine looks clear? documented in this encounter [facility] 04-02-2023 Miscellaneous Notes spoke with pts. Daughter, given information. Shreya Villalta LPN Left message on daughters Vm (unidentified VM0 to call office. Lorri Stevens LPN See my office visit note from yesterday. He received radiation for recurrent cancer and pelvic lymph nodes. He had about a 50% decrease in size of those lymph nodes on recent CT. He does not desire any active chemotherapy at this time. He will be getting a follow-up CT in about 3 to 4 months to assess the cancer. Sam Greenberg DO Pt's daughter Rita asking Dr. Greenberg if pt has cancer again. Reports pt has memory problems so pt cannot remember what is discussed at OV. Pt's daughter wishes to know long-term plan regarding pt's cancer. Please advise daughter. documented in this encounter [facility] 04-01-2023 Note [facility] 04-01-2023 History of Present illness Narrative HPI: Sam Hagen is a 82 year old male who presents here today for follow up rectal cancer. H/o CAD (GA 1993; treated with PCI balloon angioplasty; no stent) and prostate cancer (tx with radiation x44 fx ~8 years ago). He presented to [place] fall 2016 with symptoms of bowel obstruction. He underwent attempted colonoscopy but the procedure was aborted when the scope was not able to be passed through the rectum/sigmoid area. He was transferred to [facility]. He ultimately underwent a total colectomy along with end ileostomy and partial bladder resection on 07/03/2017. He was noted to have 2 foci of tumor one in the cecum and one in the sigmoid colon. The latter tumor was adherent to the bladder invasive to the bladder wall. 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 TUMOR PENETRATES TO THE SURFACE OF THE VISCERAL PERITONEUM. SURGICAL MARGINS NEGATIVE. 1 OF 13 LYMPH NODES POSITIVE FOR METASTATIC ADENOCARCINOMA AND 1 TUMOR DEPOSIT PRESENT. PERINEURAL AND LYMPHOVASCULAR INVASION PRESENT. B) SMALL INTESTINE, TERMINAL ILEUM, ILEOSTOMY - BENIGN SMALL INTESTINAL TISSUE. C) BLADDER, PARTIAL CYSTECTOMY - FOCAL INVOLVEMENT OF THICK SMOOTH MUSCLE BUNDLES BY ADENOCARCINOMA. NO UROTHELIUM PRESENT. D) COLON, SIGMOID, SEGMENTAL RESECTION - INVASIVE LOW GRADE (MODERATELY DIFFERENTIATED) ADENOCARCINOMA (3 CM IN GREATEST DIMENSION). SURGICAL MARGINS APPEAR NEGATIVE. BENIGN TRANSECTED BENIGN VAS DEFERENS (2) AND THICK SMOOTH MUSCLE SUGGESTIVE OF BLADDER. 1 OF 9 LYMPH NODES POSITIVE FOR METASTATIC ADENOCARCINOMA Previous therapy: 1) Infusional 5FU. Radiation not recommended. Pt. had CT's in 2018. Showed rectal mass. MRI done. Again showed: Postoperative changes from subtotal colectomy with tumor seen within the Wills's pouch spanning the mid rectal region anteriorly to the sigmoid colon. There is extension into the seminal vesicle and left posterior bladder wall. There is possible involvement of the left vesicoureteral junction. Referred to surgeon-Dr. Gonzalez. Flex sig done 08/06/19. Path: FINAL DIAGNOSIS: A) UPPER RECTAL MASS, BIOPSIES - SEVERE GLANDULAR DYSPLASIA/CARCINOMA IN SITU. B) MID RECTAL MASS, CORE BIOPSY - INVASIVE ADENOCARCINOMA. SEE COMMENT. CTs 10/07 showed no evidence of metastatic disease. Previous therapy: 1) Infusional 5-fluorouracil with concurrent radiation completed concurrent infusional 5 fluorouracil with radiation on 11/10/2019. He underwent exploratory laparotomy with lysis of adhesions followed by partial resection of the rectum/low anterior resection on 12/23/2019. Operative findings indicate that there was no obvious invasion of tumor into the bladder. Firm nodularity along the right anterior side of the rectum in a separate margin was obtained which likely included some of the seminal vesicle. On cystoscopy was no obvious intravesicular tumor. A bladder stone was observed and removed. There was no evidence of fistula and it was deemed not necessary to perform partial or complete cystectomy. The rectum was fully mobilized and divided below the prostate. Approximately 3-4 cm the rectum was maintained the distal transection was performed at the top of the anal canal. There was no evidence of peritoneal disease or obvious spread beyond the area between the rectum and bladder. Pathology: FINAL DIAGNOSIS: A) RECTUM (LOW ANTERIOR RESECTION) - MODERATELY DIFFERENTIATED ADENOCARCINOMA WITH INVASION THROUGH THE MUSCULARIS PROPRIA INTO PERIRECTAL TISSUE. FEATURES CONSISTENT WITH THERAPY EFFECT. PROXIMAL BLIND POUCH REPRESENTING PREVIOUS COLECTOMY SITE. PERIRECTAL LYMPH NODE (1 LYMPH NODE) - NEGATIVE FOR MALIGNANCY. B) RIGHT ANTERIOR PELVIC MARGIN - FRAGMENTS OF FIBROVASCULAR TISSUE, ADIPOSE TISSUE AND SMOOTH MUSCLE WITH INVOLVEMENT BY MODERATELY DIFFERENTIATED ADENOCARCINOMA. ATTACHED SEGMENT OF VAS DEFERENS. COMMENT: Clinically, the adenocarcinoma is considered to represent a recurrence of the previous adenocarcinomas of the cecum and sigmoid colon for which the patient underwent total colectomy in 2017 ([id number]). Colon and Rectum Cancer Case Summary Procedure: Low anterior resection. Tumor site: Rectum. Tumor size: Approximately 3 cm. Macroscopic tumor perforation: Not identified. Histologic type: Adenocarcinoma. Histologic grade: Grade 2, moderately differentiated. Tumor extension: Tumor adheres to adjacent structure (vas deferens) and involves smooth muscle suggestive of bladder. Margins: -Distal stapled margin: No definite involvement by tumor is identified. Mesenteric shave margin: Negative for malignancy. -Circumferential margin: Cannot be assessed due to disruption. Treatment effect: Present. Lymphovascular invasion: Not identified. Perineural invasion: Present. Tumor deposits: Not identified. Lymph nodes: Number examined: 1. Number involved: None. Pathologic stage: yrpT4b yrpN0. Previous therapy: 5fu Last cycle 05/08/20 Pt. wanted to stop treatment prematurely. S/p 1. Exploratory Laparotomy with ileostomy takedown 2. Extensive lysis of adhesions (>30 minutes) 3. Repair of small contained perforation 4. ANGIE drain placement 5. Incisional hernia repair, primary 6. Ileostomy re-creation on 08/07/[address] Gonzalez Pt. was admitted 08/05/20 Discharged 08/16/20. Post-op course complicated by infection. Went to ED 08/19/20. Pt. re-admitted and had CT/US guided drain placement for left parastomal fluid collection, left abdominal fluid collection, US guided aspiration of anterior abdominal subcutaneous fluid collection on 08/20/20. Discharged on 08/22/20. Pt. no showed for visit 08/23/22. Last seen March 2022. CT's done 08/21/22: New enlarged left common iliac lymph node Repeat CT abd/pelvis 11/07/22: IMPRESSION: ENLARGING NECROTIC LEFT COMMON ILIAC CHAIN LYMPH NODE NO NEW METASTATIC DISEASE IN THE ABDOMEN OR PELVIS. STABLE LARGE PARASTOMAL HERNIA He completed radiation treatment to the left iliac node on 01/23/2023. He tolerated radiation very well with no adverse effect. His appetite is normal and he denies nausea. He denies abdominal pain with the exception of some pain of the peristomal hernia. Its not persistent. Occasional watery stools, but Metamucil mitigates that well. Presents for ongoing oncologic management. Interim history: STM issues. Still drives. Daughter in [place] comes on Sundays and calls him every day around 5 pm. Does his own groceries. Daughter handles paying the bills. He is confused about his pills. Ambulating with a cane. Has a lot of imbalance. PMH, medications and allergies personally reviewed by me today. Any changes documented in appropriate section. ROS: Below reviewed again today-- He has chronic pain in the right lower buttock that radiates around and down the thigh. He sees a chronic brush painter. Denies fevers or recent illness. Resp:denies cough or sob Cardiac:denies chest pain/palpitations--see above regarding nitroglycerin. 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 HEART regular rhythm LUNG clear to auscultation LYMPH NODES No cervical lymphadenopathy, No supraclavicular lymphadenopathy, and No axillary lymphadenopathy. ABDOMEN: The abdomen is nondistended. Healthy appearing ostomy in the left lower quadrant. Not able to appreciate a reducible hernia around the ostomy site. No tenderness currently. Brown stool in bag. EXTREMITIES No edema LABS: Component Latest Ref Rng & Units 08/21/2022 11/07/2022 02/25/2023 CEA <=2.9 ng/mL 2.5 9.5 (H) 3.9 (H) RADIOLOGY: CT chest 08/21/22: IMPRESSION: No suspicious lung nodules. No CT evidence of progressive lymphadenopathy. Remote granulomatous disease. CT abd/pelvis 08/21/22: IMPRESSION: 1. There is a new enlarged left common iliac lymph node 2. Increased size of a left lower quadrant parastomal hernia CT abd/pelvis 11/07/22: IMPRESSION: ENLARGING NECROTIC LEFT COMMON ILIAC CHAIN LYMPH NODE NO NEW METASTATIC DISEASE IN THE ABDOMEN OR PELVIS. STABLE LARGE PARASTOMAL HERNIA ASSESSMENT/PLAN: 1. Rectal cancer (HCC) - ICD9: 154.1, ICD10: C20 (primary diagnosis) yrpT4b yrpN0 stage IIC. Tolerated neoadjuvant chemotherapy/radiation well. 2. Elevated CEA - ICD9: 795.81, ICD10: R97.0 -s/p radiation to pelvic node. -Personally reviewed CT images. About 50% decrease in the radiated pelvic lymph node. -We discussed resuming chemotherapy but given his frail nature and memory issues and indolent nature of his cancer we opted for further treatment holiday. Plan: -Labs, CTs then OV in about 3-4 months. Portions of this documentation were copied and pasted from previous office visit notes in order to provide a cohesive continuity of the history. The note has been reviewed and edited and updated as necessary. I spent a total of 30 minutes on the date of the service which included preparing to see the patient, [id number] patient care, completing clinical documentation, obtaining and/or reviewing separately obtained history, performing a medically appropriate examination, counseling and educating the patient/family/caregiver, ordering medications, tests, or procedures, communicating with other HCPs (not separately reported), independently interpreting results (not separately reported), and communicating results to the patient/family/caregiver. Sam Greenberg DO documented in this encounter [facility] 03-27-2023 Note [facility] 03-27-2023 Instructions Vishal Jones MD - 03/27/2023 10:45 AM EDT Let your daughter know she should go to your appt with Dr. Liu tomorrow. Also it appears Dr. Liu placed a referral to see a neurosurgeon back in November/December and it was never set up by your daughter, though not sure she was aware. documented in this encounter [facility] 03-27-2023 Miscellaneous Notes Recommend formal neuro cognitive evaluation. Will place consult. Requests for any legal documentation should go through legal department. Mikhail Liu MD Spoke with daughter and gave her PCP recommendations. Will forward to both providers. Patient's daughter will reach out to their offices. Sylvia Rossi MA Let daughter know that sam sees Dr. Greenberg for his cancer and for his memory issues and that it would be best to get letters from these specialists. Also it's possible the providers will want an official letter from her Dad's legal ute with what they are specifically asking. Contacted daughter to find out what exactly daughter needed. She indicated that the lady who has had her father arrested 3 times is suing him for apparently keying her car. Daughter indicated that they are counter suing due to the fact she has been manipulating him out of money and coming around him. Per daughter apparently an insurance checked was mailed to him and never deposited, she indicated that thinks this check was taken. She also indicated that he has been giving this women money. Once daughter stopped that then this lady filed a suit against him. She needs medical documentation that states his dementia and his terminal cancer to show his medical situation. I told daughter I didn't see the POA on file and she is going to fax tomorrow. Sylvia Rossi MA Daughter calling as she is POA and she needs paperwork for PCP for court with info below: - Cancer Diagnosis bc he is classified as terminal - something stating pt has clogged arteries in neck which lead to memory issues Please fax to Rita (daughter) at: [phone] documented in this encounter [facility] 03-27-2023 History of Present illness Narrative Medicare Yearly Visit Medical B eligibilty date 03/15/17 Date of last exam 03/14/22 PAST MEDICAL HISTORY PAST MEDICAL HISTORY Diagnosis Date A-fib (HCC) s/p colectomy 2016. 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 Bagley BPH with obstruction/lower urinary tract symptoms BPH with obstruction/lower urinary tract symptoms Dr. Hendrix Chronic midline back pain 10/20/2017 Cog-wheel rigidity 06/18/2019 left upper extrmity, right upper extremity lead piping Cognitive impairment, mild, so stated 06/18/2019 Colon cancer (HCC) 06/30/[address] Greenberg, Had extension into the bladder wall and hd a partial cystectomy. Colostomy care (HCC) 09/25/[address] ([facility]) 09/25/2017 Coronary artery disease involving solomon coronary artery 09/25/[address] Siddiqui [id number] Elevated hemoglobin A1c 07/30/2018 Essential hypertension 04/02/2011 Essential tremor 08/16/2019 Generalized weakness 06/18/2019 H/O heart artery stent 09/25/2017 4 stents 1993 History of DVT (deep vein thrombosis) 09/25/2017 1st clot end of Aug 2017, started on Eliquis 09/15/2017 needs to be on till 03/15/2018 S/P colectomy History of GA (myocardial infarction) 1993 History of prostate cancer seeing Dr. 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 Situational depression 08/17/2019 Resolved as of 02/2020 Tarsal tunnel syndrome of right side 06/23/2019 NCS 06/23/2019 PAST SURGICAL HISTORY PAST SURGICAL HISTORY Procedure Laterality Date ANGIOPLASTY 11/13/1993 CARPAL TUNNEL Bilateral CATARACT EXTRACTION HX Bilateral right 2016 and left 2018 CYSTOSCOPY AND TREATMENT botox injection ECHOCARDIOGRAM 07/05/2017 HEART CATHETERIZATION 02/24/2002 LAPAROSCOPY SURG RPR INITIAL INGUINAL HERNIA 01/11/09 PAST SURGICAL HISTORY OF 07/03/2017 COLECTOMY ABDOMINAL W/O PROCTECTOMY W/ ILEOSTOMY/ILEOPROCTOSTOMY, TOTAL RECONSTRUCTION ROTATOR CUFF AVULSION CHRONIC left RPR INGUN HERNIA SLIDING ANY AGE LIH RPR UMBILICAL HRNA 5 YRS/> REDUCIBLE 01/11/09 SIGMOIDOSCOPY 07/02/2017 and 07/2019 moderately differentiated adenocarcinoma-sigmoid colon mass ALLERGIES: Patient has no known allergies. Medications reviewed: Yes FAMILY HISTORY FAMILY HISTORY Problem Relation Age of Onset Prostate Cancer Father Cancer Father skin Heart Mother [place] late 50's Stroke Mother Diabetes Mother SOCIAL HISTORY: SOCIAL HISTORY Social History Tobacco Use Smoking status: Never Smoker Smokeless tobacco: Current User Types: Chew Vaping Use Vaping Use: Never used Substance Use Topics Alcohol use: Yes Alcohol/week: 2.0 standard drinks Types: 2 Shots of liquor per week Drug use: No Sam likes to exercise by walking and staying active as much as he can around the house. He watches his diet for sodium, low fat and low cholesterol generally not very much. List of current specialists seen: Dr. Huntley: Cardiology Dr. White: Urology Dr. Greenberg: Oncology gen surg Dr. Tena: Pain specialist Dr. Liu: Neuro optho End of Live Planning discussed including patients advanced directive wishes: Yes I am willing to follow Sam's advanced directives. PHQ-2 / Depression screen Depression Screening 02/02/2020 03/10/2020 04/07/2020 03/27/2023 PHQ-2 Score 6 2 2 1 PHQ-9 Score 12 12 8 - Depression screening tool completed and reviewed. Based on score and interview, patient is already diagnosed with depression. Screening tool discussed with patient, and I recommended continuing current plan of care. Functional Ability/Safety Screen 1. Was the patient's timed Up and Go test unsteady or longer than 30 seconds? No 2. Does the patient need help with the phone, transportation, shopping,preparing meals, housework, laundry, medications or managing money? Yes 3. Does your home have rugs in the hallway, lack of grab bars in the bathroom, lack of handrails on the stairs or have poor lighting? No Hearing Evaluation: wears hearing aids PHYSICAL EXAM BP 148/84 (BP Site: Right Arm, BP Position: Sitting, BP Cuff Size: Regular Adult) Pulse 91 Resp 18 Wt 83.9 kg (185 lb) SpO2 96% BMI 29.38 kg/m Alert and oriented X 3: YES Body mass index is 29.38 kg/m . Visual acuity: Sees opto ASSESSMENT/PLAN: 83 year old male The following prevention plan was discussed during the office visit and provided to the patient: See below. Chief Complaint Patient presents with: Pain HPI Sam Hagen is a 83 year old male who presents here today for Chronic Medical Conditions. Office visit - Patient indicated that he has noticed some shakiness in the mornings; still having in pain in his hip; back neck. Right heel tingles. Balances issues; no falls but close calls. Patient is still having memory issues and some anxiety. Seeing neuro tomorrow. Patient did complete the MRI of the brain and lumbar spine. MRI Kne showed no acute issues but sever generalized brain parenchymal loss. The MRI of the lumbar spine showed sever canal stenosis and was referred to neuro surgery but appears an appt was never made. Office visit - Anxiety 01/01/2023 Patient's daughter here today with concerns about memory and anxiety. She was not aware that he has been seeing Dr. Liu. Reviewed last appt with her and Sam where neuro discussed getting MRI of back and brain. These were finally completed. His back showed bad disease and has been seeing Dr. Lacy's at [facility] and he wants to take him to surgery however his rectal and large intestine cancer is back and needs addressed first. Since issues with a women in his life causing problems for him he has been more stressed. At times more agitated and sometimes making gestures to his daughter. At times makes the mistake that he is talking with a Rita (Friend) but it was his daughter (Leida). No hallucinations. Office visit : ER follow up 11/15/2022 Patient was seen in [facility] ER on 10/31/2022 after a fall on his cement driveway. No loss of consciousness, however did bang up the right side of his face some. He was walking without his cane or walker at the time and does have low back issues. Patient denied any headache, changes in Mood, nausea or vomiting. He did have a cervical x-ray that was ok except arthritic changes. A CT of the head showed no bone fractures or bleeds. Per patient and granddaughter he had no nausea, vomiting, headache's or abnormal mood changes the days following the ER visit. Still c/o low back pain and leg pains. Past medical history, appointments, medications, allergies reviewed. Previous Medical History PAST MEDICAL HISTORY Diagnosis Date A-fib (HCC) s/p colectomy 2016. 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 Consult to vasc Bladder stone 09/25/[address] Bagley BPH with obstruction/lower urinary tract symptoms BPH with obstruction/lower urinary tract symptoms Dr. Hendrix Calculus of gallbladder with chronic cholecystitis without obstruction 06/13/2021 Chronic midline back pain 10/20/2017 Cog-wheel rigidity 06/18/2019 left upper extrmity, right upper extremity lead piping Cognitive impairment, mild, so stated 06/18/2019 Colon cancer ([facility]) 06/30/[address] Greenberg, Had extension into the bladder wall and hd a partial cystectomy. Colostomy care ([facility]) 09/25/[address] ([facility]) 09/25/2017 Coronary artery disease involving solomon coronary artery 09/25/[address] Siddiqui [id number] DDD (degenerative disc disease), lumbar 12/14/2021 Elevated hemoglobin A1c 07/30/2018 Essential hypertension 04/02/2011 Essential tremor 08/16/2019 SALAS (generalized anxiety disorder) 01/01/2023 Generalized weakness 06/18/2019 H/O heart artery stent 09/25/2017 4 stents 1993 History of DVT (deep vein thrombosis) 09/25/2017 1st clot end of Aug 2017, started on Eliquis 09/15/2017 needs to be on till 03/15/2018 S/P colectomy History of GA (myocardial infarction) 1993 History of prostate cancer seeing Dr. White Hyperlipidemia, mixed 09/25/[address] ([facility]) 06/13/2021 Living will on file at physician's office 09/25/2022 DPA: Roseanne Albert, (daughter) Malignant neoplasm of ascending colon ([facility]) 07/29/2017 Malignant neoplasm of sigmoid colon ([facility]) 07/29/2017 Medicare annual wellness visit, subsequent 07/30/2018 Medicare part B: 03/15/2017 last done: 08/17/2019 Mixed incontinence 02/16/2020 Nerve pain 09/25/2017 Right side hip and up the spine Parastomal hernia without obstruction or gangrene Personal history of colon cancer 12/18/2020 Primary insomnia 01/02/2021 Rectal cancer (HCC) 10/12/2019 S/P total colectomy 07/16/2017 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 Situational depression 08/17/2019 Resolved as of 02/2020 Spinal stenosis, lumbar region with neurogenic claudication 08/19/2022 Tarsal tunnel syndrome of right side 06/23/2019 NCS 06/23/2019 Ventral hernia without obstruction or gangrene 09/24/2021 Previous Surgical History PAST SURGICAL HISTORY Procedure Laterality Date ANGIOPLASTY 11/13/1993 CARPAL TUNNEL Bilateral CATARACT EXTRACTION HX Bilateral right 2016 and left 2018 CYSTOSCOPY AND TREATMENT botox injection ECHOCARDIOGRAM 07/05/2017 HEART CATHETERIZATION 02/24/2002 LAPAROSCOPY SURG RPR INITIAL INGUINAL HERNIA 01/11/09 PAST SURGICAL HISTORY OF 07/03/2017 COLECTOMY ABDOMINAL W/O PROCTECTOMY W/ ILEOSTOMY/ILEOPROCTOSTOMY, TOTAL RECONSTRUCTION ROTATOR CUFF AVULSION CHRONIC left RPR INGUN HERNIA SLIDING ANY AGE LIH RPR UMBILICAL HRNA 5 YRS/> REDUCIBLE 01/11/09 SIGMOIDOSCOPY 07/02/2017 and 07/2019 moderately differentiated adenocarcinoma-sigmoid colon mass Family History FAMILY HISTORY Problem Relation Age of Onset Prostate Cancer Father Cancer Father skin Heart Mother [place] late 50's Stroke Mother Diabetes Mother Patient Allergies ALLERGIES No Known Allergies Current Medications Current Outpatient Medications on File Prior to Visit Medication Sig buPROPion SR (WELLBUTRIN SR) 100 mg 12 hr tablet Take one tab once a day for two weeks then go to taking one tablet twice a day gabapentin (NEURONTIN) 300 mg capsule Take 2 capsules by mouth twice daily for 360 days. (Patient taking differently: Take 200 mg by mouth twice daily.) oxybutynin ER (DITROPAN XL) 10 mg 24 hr tablet Take 10 mg by mouth once daily. baclofen (LIORESAL) 10 mg tablet Take 0.5-1 tablets by mouth three times daily as needed. For spasms. nitroglycerin sublingual (NITROQUICK) 0.4 mg SL tablet Q5M atorvastatin (LIPITOR) 10 mg tablet Take 1 tablet by mouth daily at bedtime. For cholesterol. hydrOXYzine HCl (ATARAX) 25 mg tablet Take 1 tablet by mouth three times daily as needed. mirtazapine (REMERON) 30 mg tablet Take 1 tablet by mouth daily at bedtime. aspirin, enteric coated (ECOTRIN LOW STRENGTH) 81 mg EC tablet Take 1 tablet by mouth once daily. buprenorphine 7.5 mcg/hour ptwk apply 1 patch to CLEAN, DRY, AND INTACT SKIN and REPLACE every 7 days LORazepam (ATIVAN) 1 mg tablet Take by mouth. atenolol (TENORMIN) 25 mg tablet Take 0.5 tablets by mouth once daily. naproxen (NAPROSYN ORAL) Take 1 tablet by mouth once daily as needed. solifenacin 10 mg tablet Take 10 mg by mouth once daily. isosorbide mononitrate ER (IMDUR) 60 mg 24 hr tablet Take 60 mg by mouth once daily. No current facility-administered medications on file prior to visit. Social History Social History Tobacco Use Smoking status: Never Smokeless tobacco: Current Types: Chew Vaping Use Vaping Use: Never used Substance Use Topics Alcohol use: Yes Alcohol/week: 2.0 standard drinks of alcohol Types: 2 Shots of liquor per week Comment: OCC Drug use: No Review of Symptoms REVIEW OF SYSTEMS GENERAL: No weight loss, malaise or fevers HEENT: Negative for frequent or significant headaches, No changes in hearing or vision, no nose bleeds or other nasal problems NECK: Negative for lumps, goiter, pain and significant neck swelling RESPIRATORY: Negative for hemoptysis, wheezing, COPD, dyspnea or shortness of breath. Cough in the morning with phlegm CARDIOVASCULAR: Negative for chest pain, leg swelling, hypertension, CHF or palpitations GI: No nausea, vomiting, or diarrhea, No heartburn or reflux symptoms, and no blood : No history of dysuria, blood. No incontinence. MUSCULOSKELETAL: continues to have pain in the neck, low back and right hip area. See HPI SKIN: Negative for lesions, rash, and itching PSYCH: Negative for sleep disturbance, mood disorder and recent psychosocial stressors HEMATOLOGY/LYMPHOLOGY: Negative for prolonged bleeding, bruising easily or swollen nodes ENDOCRINE: Negative for cold or heat intolerance, polyuria, polydipsia and goiter NEURO: No history of headaches, syncope, paralysis, seizures or tremors EXAM: BP 148/84 (BP Site: Right Arm, BP Position: Sitting, BP Cuff Size: Regular Adult) Pulse 91 Resp 18 Wt 83.9 kg (185 lb) SpO2 96% BMI 29.38 kg/m BP 132/66 Pulse 91 Resp 18 Wt 83.9 kg (185 lb) SpO2 96% BMI 29.38 kg/m Last 5 Encounter Wt Readings: Date: Wt: 03/27/2023 83.9 kg (185 lb) 02/25/2023 84.1 kg (185 lb 8 oz) 01/15/2023 81.2 kg (179 lb) 01/01/2023 82.1 kg (181 lb) 12/20/2022 83.9 kg (185 lb) General Appearance: Well appearing, alert, in no acute distress, well-hydrated, well nourished.. Skin: Skin color, texture, turgor normal, no suspicious rashes or lesions. Head: Normocephalic, no masses, lesions, tenderness or abnormalities. Eyes: Anicteric sclera. Pupils are equally round and reactive to light. Extraocular movements are intact. . Ears: External ears, TM's normal, canals clear. Nose/Sinuses: Nares normal, septum midline, mucosa normal, no drainage or sinus tenderness. Oropharynx: Lips, mucosa, and tongue normal, teeth and gums normal, oropharynx normal. Neck: Supple, no adenopathy; thyroid symmetric, normal size, no bruits. Lungs: Lungs clear to auscultation. No wheezing, rhonchi, rales.. Heart: RRR without murmur, gallop, or rubs. No ectopy. Abdomen: Normal abdominal exam, Abdomen soft, non-tender. Bowel sounds normal. No masses, organomegaly. Extremities: No deformities, edema, skin discoloration, Good capillary refill. . Musculoskeletal: Muscular strength intact, No joint swelling, deformity, or tenderness. Peripheral Pulses: Normal. Neurologic: Gait normal. Reflexes normal and symmetric. Sensation to light touch and crainal nerves 2-12 intact.. Health Maintenance List COVID-19 VACCINE(5 - Pfizer series) due on 01/23/2023 INFLUENZA(1) due on 05/16/2023 LDL CHOLESTEROL due on 09/25/2023 DIABETES SCREEN due on 02/25/2026 DTAP,TDAP,TD(5 - Td or Tdap) due on 07/15/2032 ADVANCE DIRECTIVE DISCUSSION Completed SHINGRIX VACCINE Completed PNEUMOCOCCAL: 65+ Completed HPV VACCINE Aged Out Data reviewed Component Latest Ref Rng & Units 09/25/2022 02/25/2023 WBC 3.70 - 11.00 k/uL 5.49 RBC 4.20 - 6.00 m/uL 4.23 Hemoglobin 13.0 - 17.0 g/dL 13.3 Hematocrit 39.0 - 51.0 % 40.7 MCV 80.0 - 100.0 fL 96.2 MCH 26.0 - 34.0 pg 31.4 MCHC 30.5 - 36.0 g/dL 32.7 RDW-CV 11.5 - 15.0 % 15.5 (H) Platelet Count 150 - 400 k/uL 165 MPV 9.0 - 12.7 fL 8.7 (L) Neut% % 73.0 Abs Neut (ANC) 1.45 - 7.50 k/uL 4.00 Lymph% % 15.8 Abs Lymph 1.00 - 4.00 k/uL 0.87 (L) [place]% % 8.7 Abs [place] <0.87 k/uL 0.48 Eosin% % 1.5 Abs Eosin <0.46 k/uL 0.08 Baso% % 0.5 Abs Baso <0.11 k/uL 0.03 Immature Gran % % 0.5 IMMATURE GRANS (ABS) <0.10 k/uL 0.03 NRBC /100 WBC 0.0 Absolute nRBC <0.01 k/uL <0.01 DTYPE Auto Protein, Total 6.3 - 8.0 g/dL 6.4 Albumin 3.9 - 4.9 g/dL 4.1 Calcium 8.5 - 10.2 mg/dL 10.1 9.2 Bilirubin, Total 0.2 - 1.3 mg/dL 0.2 Alkaline Phosphatase 38 - 113 U/L 77 AST 14 - 40 U/L 24 ALT 10 - 54 U/L 32 Glucose 74 - 99 mg/dL 92 167 (H) BUN 9 - 24 mg/dL 24 24 Creatinine 0.73 - 1.22 mg/dL 1.07 0.92 Sodium 136 - 144 mmol/L 136 139 Potassium 3.7 - 5.1 mmol/L 5.3 (H) 4.3 Chloride 97 - 105 mmol/L 100 103 CO2 22 - 30 mmol/L 26 25 Anion Gap 9 - 18 mmol/L 10 11 eGFR >=60 mL/min/1.73m 69 82 Total Cholesterol, Nonfasting <200 mg/dL 215 (H) Triglycerides, Nonfasting <150 mg/dL 198 (H) HDL Cholesterol, Nonfasting >39 mg/dL 44 LDL Cholesterol, Nonfasting <100 mg/dL 131 (H) Non HDL Cholesterol, Nonfasting <130 mg/dL 171 (H) VLDL Cholesterol, Nonfasting <30 mg/dL 40 (H) Total Chol/HDL Ratio, Nonfasting <5.10 mg/dL 4.89 LDL/HDL Ratio, Nonfasting <2.54 mg/dL 2.98 (H) Hemoglobin A1C 4.3 - 5.6 % 6.1 (H) Estimated Average Glucose mg/dL 128 A/P ASSESSMENT/PLAN: 1. Medicare annual wellness visit, subsequent - ICD9: V70.0, ICD10: Z00.00 (primary diagnosis) - Counseled on healthy diet and regular exercise - Follow up for annual exam in one year 2. Essential hypertension - ICD9: 401.9, ICD10: I10 - Controlled - Continue current medications - Recommend home blood pressure monitoring, to bring results to next visit - Encouraged sodium restriction, DASH or Mediterranean diet - Recommend regular aerobic exercise Check - LIPID PANEL, NONFASTING - URINALYSIS, WITH MICROSCOPIC 3. Hyperlipidemia, mixed - ICD9: 272.2, ICD10: E78.2 - Await labs - Continue current medications - Counseled on healthy diet and regular exercise Check - LIPID PANEL, NONFASTING - URINALYSIS, WITH MICROSCOPIC 4. Elevated hemoglobin A1c - ICD9: 790.29, ICD10: R73.09 Check - HGB A1C 5. Paroxysmal atrial fibrillation (HCC) - ICD9: 427.31, ICD10: I48.0 - management per cardio 6. Coronary artery disease involving solomon coronary artery of solomon heart without angina pectoris - ICD9: 414.01, ICD10: I25.10 - as per #6 - LIPID PANEL, NONFASTING 7. Bilateral carotid artery stenosis - ICD9: 433.10, 433.30, ICD10: I65.23 - management per vascular and needs appt set up with them - LIPID PANEL, NONFASTING 8. SALAS (generalized anxiety disorder) - ICD9: 300.02, ICD10: F41.1 - stable at this time. No changes 9. Situational depression - ICD9: 309.0, ICD10: F43.21 - as per #8 10. Dementia without behavioral disturbance (HCC) - ICD9: 294.20, ICD10: F03.90 - management per neuro 11. Malignant neoplasm of colon, unspecified part of colon (HCC) - ICD9: 153.9, ICD10: C18.9 - seeing gen surg and oncology 12. Malignant neoplasm of ascending colon (HCC) - ICD9: 153.6, ICD10: C18.2 - as per #11 13. Malignant neoplasm of sigmoid colon (HCC) - ICD9: 153.3, ICD10: C18.7 - as per #11 14. Rectal cancer (HCC) - ICD9: 154.1, ICD10: C20 - as per #11 15. 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 Colostomy care (HCC) - ICD9: V55.3, ICD10: Z43.3 - stable no changes. 17. Colostomy in place (HCC) - ICD9: V44.3, ICD10: Z93.3 - stable no changes 18. 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) - ICD9: V44.2, ICD10: Z93.2 - stable no changes. 19. History of prostate cancer - ICD9: V10.46, ICD10: Z85.46 - management per urology F/u 6 months routine I spent a total of 40 minutes on the date of the service which included preparing to see the patient, [id number] patient care, completing clinical documentation, performing a medically appropriate examination, counseling and educating the patient/family/caregiver and ordering medications, tests, or procedures. Vishal Jones MD documented in this encounter [facility] 03-10-2023 Note [facility] 03-10-2023 History of Present illness Narrative Radiology Service Progress Note PATIENT NAME: Sam Hagen DATE OF SERVICE: March 10, 2023 TIME: 1:49 PM PATIENT IDENTITY VERIFICATION COMPLETED USING TWO (2) IDENTIFIERS: Name and Date of confirmed by patient verbally. FALL SCREENING: Has the patient had 2 falls in the last year or 1 fall with injury or currently using an Ambulatory Assistive Device (Walker, Cane, Wheelchair, Crutches, etc.)? No PATIENT GENDER DATA: Male PATIENT RELEVANT IMPLANT DATA REVIEWED: Yes RADIOLOGY DEPARTMENT: CT; Exam(s) Completed: Chest Abdomen Pelvis PERIPHERAL IV DATA: power port accessed by hemoc SIGNED BY: RT Arturo(R) March 10, 2023 1:49 PM documented in this encounter [facility] 03-10-2023 Note [facility] 03-10-2023 History of Present illness Narrative Patient is here for IVAD port flush per Nursing [place] protocol. IVAD is located in right upper chest. Site cleansed with Chloraprep IVAD accessed with a #20 gauge 3/4 non-coring Gripper needle Blood Return: Good Flushed with: 20 ml Normal Saline Non-coring needle left intact for CT. Opsite applied to puncture site. Port site negative for redness, edema or tenderness. Patient tolerated procedure well. documented in this encounter [facility] 02-25-2023 Note [facility] 02-21-2023 Miscellaneous Notes Spoke with patient and rescheduled as requested. Planning to move Dr. Greenberg's 8:30 pt. on 02/25 to nh at 8a.m. on 02/26. Sam will then be put in the [address] Greenberg's schedule at 8:30 on 02/25. Spoke with Fany regarding the above. Tameka Marshall APRN.SOULEYMANE Dr Alphonso English wanted you to know that Sam is done with radiation and he will need follow up appointment with you. documented in this encounter [facility] 02-19-2023 Note [facility] 01-28-2023 Note HNO ID: [id number] Author: Natalia Lopez LPN Service: ? Author Type: ? 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 DELIVERED DOSE: 5000 cGy in 5 fractions treating to the 73.9% isodose line with 6MV FFF and 4 norris. ELAPSED TIME: 9 days. TOLERANCE/ RESPONSE: He is doing well without any specific new complaints related to radiation treatment REMARKS: He tolerated radiation treatment well. Four week follow-up with me. Staff Physician CLEMENT WERNER M.D. 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 COURSE: SBRT (stereotactic body radiotherapy) AREA TREATED: Left common iliac node CURRENT DOSE: 1800 cGy in 2 fx PLANNED DOSE: 4500 cGy in 5 fx SUBJECTIVE: He is doing well without any specific new complaints related to radiation treatment. He had an episode of fall last night when he tried to pivot on his right leg which is weaker from arthritis. He has bruise on his left arm and head but denies any left arm pain or any headaches. He denies any weakness of left arm/hand. EXAM: KPS: 80 General Appearance: Alert and oriented. No acute distress. IMAGING/LAB RESULTS: None Treatment chart checked: Yes Patient treatment site reviewed and verified:Yes CBCTs reviewed and current:Yes Medications started: None ASSESSMENT/PLAN: Clinically stable. No signs of toxicity. Continue radiation treatment as planned. Clement Werner MD documented in this encounter [facility] 01-15-2023 Nurse Note Radiation Therapy - Nursing Note (OTV) PATIENT NAME: Sam Hagen PATIENT January 15, 2023 [facility] FACILITY/LOCATION: [place] NURSING NOTE TYPE: left iliac node Subjective Data No c/o Additional Data Do you want to see a Livestock Nutritionist? No Status: Patient is male Stress Scale: On a scale of 0 to 10, what number best describes how much distress you have experienced in the past week?(0 being no distress and 10 being extreme distress) 2 Social work notified: no Nursing Assessment Fatigue: increased fatigue over baseline but not altering normal activities Appetite: good Nutritional Intake: Regular oral intake. Weight Gain/Loss: No Ambulatory weight history: Last 6 Encounter Wt Readings: Date: Wt: 01/15/2023 81.2 kg (179 lb) 01/01/2023 82.1 kg (181 lb) 12/20/2022 83.9 kg (185 lb) 11/15/2022 81.2 kg (179 lb) 11/14/2022 80.7 kg (178 lb) 10/21/2022 79.1 kg (174 lb 6.4 oz) Nausea:None Vomiting: None Bowel Function: normal bowel movements Erythema/Hyperpigmentation:none Desquamation:none Rash:none Skin Care: None Skin Sensation: Within Normal Limits Focused Assessment Left iliac node no c/o SIGNED by: Nikole Lamb RN documented in this encounter [facility] 01-02-2023 Miscellaneous Notes TC placed to patient to let him know he can call to attempt to schedule sooner appointment with sleep RAS and that he needs to complete PSG prior to making appointment with sleep RAS. TC placed to patients daughter per his request with this information since patient states I have a terrible memory Daughter states he cant sleep at night due to pain and wanted to know if the sleep study was necessary still. She also wanted to let Dr. Liu know that her dads cancer is back and that he is being treated for it so he is unable to have surgery on his spine at this time. Karuna Cannon LPN Pt is wondering if there is any availability earlier than his scheduled appointment. He was supposed to be seen in January but appt was never set up, schedule is now booked out until March Lisa Villalobos January 01, 2023 7:37 PM documented in this encounter [facility] 01-01-2023 Note [facility] 01-01-2023 History of Present illness Narrative Chief Complaint Patient presents with: Memory Problems Anxiety/Memory HPI Sam Hagen is a 82 year old male who presents here today for Anxiety issues/memory Office visit - Anxiety Patient's daughter here today with concerns about memory and anxiety. She was not aware that he has been seeing Dr. Liu. Reviewed last appt with her and Sam where neuro discussed getting MRI of back and brain. These were finally completed. His back showed bad disease and has been seeing Dr. Lacy's at [facility] and he wants to take him to surgery however his rectal and large intestine cancer is back and needs addressed first. Since issues with a women in his life causing problems for him he has been more stressed. At times more agitated and sometimes making gestures to his daughter. At times makes the mistake that he is talking with a Rita (Friend) but it was his daughter (Leida). No hallucinations. Office visit : ER follow up 11/15/2022 Patient was seen in [facility] ER on 10/31/2022 after a fall on his cement driveway. No loss of consciousness, however did bang up the right side of his face some. He was walking without his cane or walker at the time and does have low back issues. Patient denied any headache, changes in Mood, nausea or vomiting. He did have a cervical x-ray that was ok except arthritic changes. A CT of the head showed no bone fractures or bleeds. Per patient and granddaughter he had no nausea, vomiting, headache's or abnormal mood changes the days following the ER visit. Still c/o low back pain and leg pains. Past medical history, appointments, medications, allergies reviewed. Previous Medical History 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 Consult to vasc Bladder stone 09/25/[address] Bagley BPH with obstruction/lower urinary tract symptoms BPH with obstruction/lower urinary tract symptoms Dr. Hendrix Calculus of gallbladder with chronic cholecystitis without obstruction 06/13/2021 Chronic midline back pain 10/20/2017 Cog-wheel rigidity 06/18/2019 left upper extrmity, right upper extremity lead piping Cognitive impairment, mild, so stated 06/18/2019 Colon cancer ([facility]) 06/30/[address] Greenberg, Had extension into the bladder wall and hd a partial cystectomy. Colostomy care ([facility]) 09/25/[address] ([facility]) 09/25/2017 Coronary artery disease involving solomon coronary artery 09/25/[address] Siddiqui [id number] DDD (degenerative disc disease), lumbar 12/14/2021 Elevated hemoglobin A1c 07/30/2018 Essential hypertension 04/02/2011 Essential tremor 08/16/2019 Generalized weakness 06/18/2019 H/O heart artery stent 09/25/2017 4 stents 1993 History of DVT (deep vein thrombosis) 09/25/2017 1st clot end of Aug 2017, started on Eliquis 09/15/2017 needs to be on till 03/15/2018 S/P colectomy History of GA (myocardial infarction) 1993 History of prostate cancer seeing Dr. White Hyperlipidemia, mixed 09/25/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) 06/13/2021 Living will on file at physician's office 09/25/2022 DPA: Roseanne Albert, (daughter) Malignant neoplasm of ascending colon (HCC) 07/29/2017 Malignant neoplasm of sigmoid colon (HCC) 07/29/2017 Medicare annual wellness visit, subsequent 07/30/2018 Medicare part B: 03/15/2017 last done: 08/17/2019 Mixed incontinence 02/16/2020 Nerve pain 09/25/2017 Right side hip and up the spine Parastomal hernia without obstruction or gangrene Personal history of colon cancer 12/18/2020 Primary insomnia 01/02/2021 Rectal cancer (HCC) 10/12/2019 S/P total colectomy 07/16/2017 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 Situational depression 08/17/2019 Resolved as of 02/2020 Spinal stenosis, lumbar region with neurogenic claudication 08/19/2022 Tarsal tunnel syndrome of right side 06/23/2019 NCS 06/23/2019 Ventral hernia without obstruction or gangrene 09/24/2021 Previous Surgical History PAST SURGICAL HISTORY Procedure Laterality Date ANGIOPLASTY 11/13/1993 CARPAL TUNNEL Bilateral CATARACT EXTRACTION HX Bilateral right 2016 and left 2018 CYSTOSCOPY AND TREATMENT botox injection ECHOCARDIOGRAM 07/05/2017 HEART CATHETERIZATION 02/24/2002 LAPAROSCOPY SURG RPR INITIAL INGUINAL HERNIA 01/11/09 PAST SURGICAL HISTORY OF 07/03/2017 COLECTOMY ABDOMINAL W/O PROCTECTOMY W/ ILEOSTOMY/ILEOPROCTOSTOMY, TOTAL RECONSTRUCTION ROTATOR CUFF AVULSION CHRONIC left RPR INGUN HERNIA SLIDING ANY AGE LIH RPR UMBILICAL HRNA 5 YRS/> REDUCIBLE 01/11/09 SIGMOIDOSCOPY 07/02/2017 and 07/2019 moderately differentiated adenocarcinoma-sigmoid colon mass Family History FAMILY HISTORY Problem Relation Age of Onset Prostate Cancer Father Cancer Father skin Heart Mother [place] late 50's Stroke Mother Diabetes Mother Patient Allergies ALLERGIES No Known Allergies Current Medications Current Outpatient Medications on File Prior to Visit Medication Sig gabapentin (NEURONTIN) 300 mg capsule Take 2 capsules by mouth twice daily for 360 days. oxybutynin ER (DITROPAN XL) 10 mg 24 hr tablet Take 10 mg by mouth once daily. baclofen (LIORESAL) 10 mg tablet Take 0.5-1 tablets by mouth three times daily as needed. For spasms. nitroglycerin sublingual (NITROQUICK) 0.4 mg SL tablet Q5M atorvastatin (LIPITOR) 10 mg tablet Take 1 tablet by mouth daily at bedtime. For cholesterol. hydrOXYzine HCl (ATARAX) 25 mg tablet Take 1 tablet by mouth three times daily as needed. mirtazapine (REMERON) 30 mg tablet Take 1 tablet by mouth daily at bedtime. aspirin, enteric coated (ECOTRIN LOW STRENGTH) 81 mg EC tablet Take 1 tablet by mouth once daily. buprenorphine 7.5 mcg/hour ptwk apply 1 patch to CLEAN, DRY, AND INTACT SKIN and REPLACE every 7 days LORazepam (ATIVAN) 1 mg tablet Take by mouth. atenolol (TENORMIN) 25 mg tablet Take 0.5 tablets by mouth once daily. naproxen (NAPROSYN ORAL) Take 1 tablet by mouth once daily as needed. solifenacin 10 mg tablet Take 10 mg by mouth once daily. isosorbide mononitrate ER (IMDUR) 60 mg 24 hr tablet Take 60 mg by mouth once daily. No current facility-administered medications on file prior to visit. Social History Social History Tobacco Use Smoking status: Never Smokeless tobacco: Current Types: Chew Vaping Use Vaping Use: Never used Substance Use Topics Alcohol use: Yes Alcohol/week: 2.0 standard drinks Types: 2 Shots of liquor per week Drug use: No Review of Symptoms REVIEW OF SYSTEMS See HPI EXAM: BP 138/76 (BP Site: Left Arm, BP Position: Sitting, BP Cuff Size: Regular Adult) Pulse 82 Resp 16 Wt 82.1 kg (181 lb) BMI 29.21 kg/m General Appearance: Well appearing, alert, in no acute distress, well-hydrated, well nourished.. Neck: Supple, no adenopathy; thyroid symmetric, normal size, no bruits. Lungs: Lungs clear to auscultation. No wheezing, rhonchi, rales.. Heart: RRR without murmur, gallop, or rubs. No ectopy. Abdomen: Normal abdominal exam, Abdomen soft, non-tender. Bowel sounds normal. No masses, organomegaly. Extremities: No deformities, edema, skin discoloration. Peripheral Pulses: Normal. Health Maintenance List LDL CHOLESTEROL due on 09/25/2023 DIABETES SCREEN due on 11/07/2025 DTAP,TDAP,TD(5 - Td or Tdap) due on 07/15/2032 INFLUENZA Completed ADVANCE DIRECTIVE DISCUSSION Completed SHINGRIX VACCINE Completed COVID-19 VACCINE Completed PNEUMOCOCCAL: 65+ Completed Data reviewed MINI-MENTAL STATE EXAMINATION (MMSE) Make the patient comfortable and establish rapport. Ask questions in the order listed. Total possible score is 30. ORIENTATION 1. What is the (year) (season) (date) (day) (month)? Max score=5 Patient's score=3 2. Where are we? (state) (county) (town or city) (hospital) (floor)? Max score=5 Patient's score=4 REGISTRATION Ask the patient if you may test his/her memory. Then say the names of 3 unrelated objects, clearly and slowly, about one second for each (eg, apple, table, velia). After you have said all 3, ask him/her to repeat them. This first repetition determines the score(0-3), but keep saying them until he/she can repeat all 3, up to 6 trials. Max score=3 Patient's score=3 ATTENTION AND CALCULATION Ask the patient to begin with 100 and count backwards by 7. Stop after 5 subtractions (93, 86, 79, 72, 65). Score the total number of correct answers. If the patient cannot or will not perform the serial 7s task, ask him/her to spell the word WORLD backwards. The score is the number of letters in the correct order (eg, DLROW=5; DLRW=4; DLORW, DLW=3; OW=2; DRLWO=1). Max score=5 Patient's score=1 RECALL Ask the patient to recall the 3 items repeated above (eg, apple, table, velia). Max score=3 Patient's score=3 LANGUAGE Naming: Show the patient a wristwatch and ask him/her what it is. Repeat for pencil. Max score=2 Patient's score=2 Repetition: Ask the patient to repeat the phrase No ifs, ands, or buts: after you. Max score=1 Patient's score=1 3-Stage Command: Give the patient a piece of blank paper and ask him/her to take a piece of paper in your right hand, fold it in half, put it on the floor. Score 1 point for each part correctly executed. Max score=3 Patient's score=2 Reading: On a blank piece of paper, print the sentence CLOSE YOUR EYES in letters large enough for the patient to see clearly. Ask him/her to read it and do what it says. Score 1 point only if he/she actually closes his/her eyes. Max score=1 Patient's score=1 Writing: Give the patient a blank piece of paper and ask him/her to write a sentence. Do not dictate a sentence; it is to be written spontaneously. It must contain a subject and verb and be sensible. Correct grammar and punctuation are not necessary. Max score=1 Patient's score=0 (however patient has a very limited education) Copying: Ask the patient to copy the figure of intersecting pentagons exactly as it is. All 10 angles must be present and 2 must intersect to form a 4-sided figure to score 1 point. Tremor and rotation are ignored. Max score=1 Patient's score=1 MAXIMUM TOTAL SCORE = 30 TOTAL SCORE =22/30 (gave credit for witting a sentence) Suggested guideline for determining the severity of cognitive impairment: Mild: MMSE>21 Moderate: MMSE 10-20 Severe: MMSE<9 Expected decline in MMSE scores in untreated mild to moderate Alzheimer's patient is 2 to 4 points per year. *Adapted from Folstein et al.1 and Emre and Inocenciastein2. (c) 1974, 1997 [employer] Used with permission. References: 1. Folstein MF, Folstein SE, Sloane NM. Mini-Mental State: a practical method for grading the cognitive state of patients for the clinician. J Psychiatr Res. 1975; 12:189-198. 2. JR Emre, Pilar MF, Mini-Mental State Examination (MMSE). Psychopharm Bull. 1988;24:689-692. 3. Yoav MchughT, Anant FJ, Edwin RD, Dylon A, Akanksha F. Neuropsychological function in Alzheimer's disease: pattern of impairment and rates of progression. Arch Neurol. 1988;45:263-268. 4. See PERKINS, Anderson B, Collins S-P, Cole SU. Predictors of cognitive and functional progression in patients with probable Alzheimer's disease. Neurology. 1992;42:9440-3341. Geriatric Depression score: abnormal at 7 Lai's anxiety score: elevated at 30 A/P ASSESSMENT/PLAN: 1. Situational depression - ICD9: 309.0, ICD10: F43.21 (primary diagnosis) - will start Wellbutrin SR 100 mg a day for a week then going to one twice a day. - cont the Remeron at 30 mg before bed. 2. SALAS (generalized anxiety disorder) - ICD9: 300.02, ICD10: F41.1 - will add on Wellbutrin as above. 3. Cognitive impairment, mild, so stated - ICD9: 331.83, ICD10: G31.84 - patient to get back in with neurology. Requested Prescriptions Signed Prescriptions Disp Refills buPROPion SR (WELLBUTRIN SR) 100 mg 12 hr tablet 60 tablet 5 Sig: Take one tab once a day for two weeks then go to taking one tablet twice a day Will re-eval at f/u in March. I spent a total of 40 minutes on the date of the service which included preparing to see the patient, [id number] patient care, completing clinical documentation, performing a medically appropriate examination, counseling and educating the patient/family/caregiver and ordering medications, tests, or procedures. Vishal Jones MD documented in this encounter [facility] 12-30-2022 Note [facility] 12-30-2022 Nurse Note Radiation Therapy - Patient Education Note PATIENT NAME: Sam Hagen PATIENT December 30, 2022 [facility] FACILITY/LOCATION: [place] READINESS TO LEARN Cognitive Ability: Alert and oriented Motivation to learn: Eager Interested Family Support: High - Very involved in pt care Instruction provide to: Patient and family member Patient learns best by: Multiple Methods Factors effecting learning: None Physical limitations effecting learning: None LEARNING RESPONSE Diagnosis: Pt simulated today for radiation therapy to pelvis. Education Topic/Teaching Points: Radiation therapy, Side effects, and OTV: Method of instruction: Teach Back skin care Individual instruction Written instruction - handouts Verbal instruction Patient /Family response: Patient and family verbalized understanding of radiation treatments, side effects, OTV, and transportation. Follow-up plan: Patient instructed to call with any further issues Reinforce - Repeat previous content Contact information given. Supplemental material: Informational handouts on Department phone list, Fatigue, and [place] instructions, XRT sheet and Aquaphor handout. Referral (recommendation): None, Pt denied need for social work, van service, and desk interviewer. Was approved? unknown Signed by: Nikole Lamb RN documented in this encounter [facility] 12-24-2022 Miscellaneous Notes Spoke to daughter who was never offered appointment by nurse. Patient was scheduled 40 min due to complexity Alejandra Farmer Ma Please help daughter schedule the appt she was requesting but not done? Reason for call: Daughter calling and requesting appointment for patient. Daughter states she would like to come with patient to this appointment. Daughter states patient is having some issues with anxiety and dating issues, where he is contacting women that do not want his attention. Daughter states patient will become argumentative with her when she tries to redirect. Daughter states she believes patient may need something to mellow him out'. Patient is not with daughter at this time as she is at work. Daughter requesting return call on [phone] Jones's office. Outcome: Informed daughter that I would send communication to Dr. Jones's office with her request. Reason for Disposition [1] Caller is not with the adult (patient) AND [2] probable NON-URGENT symptoms Protocols used: Information Only Call - No [id number] documented in this encounter [facility] 12-20-2022 Note [facility] 12-20-2022 Nurse Note Radiation Therapy - Nursing Note (Consult) PATIENT NAME: Sam Hagen PATIENT December 20, 2022 [facility] FACILITY/LOCATION: [place] Chief Complaint: Metastatic colon cancer Reason for visit: Consult. Referring physician: Internal provider Dr Greenberg Subjective Data: has spinal stenosis that is causing issues with pain- right low back and down leg, along with neuropathy Additional Data Do you want to see a Livestock Nutritionist? No Are you interested in information about fertility? No Status: Patient is male Stress Scale: On a scale of 0 to 10, what number best describes how much distress you have experienced in the past week?(0 being no distress and 10 being extreme distress) 8 Social work notified: Pt denied need to see director of social work at this time. SIGNED by: Marion Greenberg RN documented in this encounter [facility] 12-20-2022 History of Present illness Narrative Radiation Oncology - New Patient/Consult Note PATIENT NAME: Sam Hagen PATIENT REQUESTING PROVIDER: Dr. 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 HPI: 82 year old male who presents with above diagnosis, for an opinion regarding the role of radiation therapy in the management of the patient's disease. Final recommendations will be communicated back to the requesting physician by way of the shared medical record, or letter to requesting physician via US mail. 82 year old man with history of prostate cancer diagnosed in 2005 with Richland score 6 (3+3), PSA 12 and clinical stage T2b treated with definitive radiation treatment with IMRT to 79.2 Gy in 44 fractions under the care of Dr. Merlin Canas. He had stage IIIC multifocal colon adenocarcinoma (T4aN1 ascending colon, T4bN1 sigmoid colon) s/p total colectomy, end ileostomy and partial cystectomy on 07/03/2017 and then adjuvant chemotherapy. He had primary rectal cancer in 2019 and was treated with preoperative chemoradiation treatment with 39 Gy in 26 fraction bid to the rectum with concurrent continuous 5-FU infusion followed by LAR on 12/23/2019. He was found to have yrpT4b yrpN0 rectal adenocarcinoma. He then had adjuvant 7 cycles of 5fu/leucovorin and he had decided to stop chemotherapy. CEA on 11/07/22 increased to 9.5 from 2.5 on 08/21/22. CT A/P on 08/21/22 showed a new enlarged left common iliac lymph node. Follow-up CT on 11/09/22 showed further enlargement of the left common iliac node to 1.7 x 1.5 and it was necrotic. PET/CT scan on 12/03/22 showed a hypermetabolic left common iliac node measuring 1.4 x 1.8 cm with max SUV 31.4. There was no other suspicious hypermetabolic neoplastic process. He is here to discuss SBRT. ALLERGIES No Known Allergies 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 Consult to vasc Bladder stone 09/25/[address] Bagley BPH with obstruction/lower urinary tract symptoms BPH with obstruction/lower urinary tract symptoms Dr. Hendrix Calculus of gallbladder with chronic cholecystitis without obstruction 06/13/2021 Chronic midline back pain 10/20/2017 Cog-wheel rigidity 06/18/2019 left upper extrmity, right upper extremity lead piping Cognitive impairment, mild, so stated 06/18/2019 Colon cancer ([facility]) 06/30/[address] Greenberg, Had extension into the bladder wall and hd a partial cystectomy. Colostomy care ([facility]) 09/25/[address] ([facility]) 09/25/2017 Coronary artery disease involving solomon coronary artery 09/25/[address] Siddiqui [id number] DDD (degenerative disc disease), lumbar 12/14/2021 Elevated hemoglobin A1c 07/30/2018 Essential hypertension 04/02/2011 Essential tremor 08/16/2019 Generalized weakness 06/18/2019 H/O heart artery stent 09/25/2017 4 stents 1993 History of DVT (deep vein thrombosis) 09/25/2017 1st clot end of Aug 2017, started on Eliquis 09/15/2017 needs to be on till 03/15/2018 S/P colectomy History of GA (myocardial infarction) 1993 History of prostate cancer seeing Dr. White Hyperlipidemia, mixed 09/25/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) 06/13/2021 Living will on file at physician's office 09/25/2022 DPA: Roseanne Albert, (daughter) Malignant neoplasm of ascending colon (HCC) 07/29/2017 Malignant neoplasm of sigmoid colon (HCC) 07/29/2017 Medicare annual wellness visit, subsequent 07/30/2018 Medicare part B: 03/15/2017 last done: 08/17/2019 Mixed incontinence 02/16/2020 Nerve pain 09/25/2017 Right side hip and up the spine Parastomal hernia without obstruction or gangrene Personal history of colon cancer 12/18/2020 Primary insomnia 01/02/2021 Rectal cancer (HCC) 10/12/2019 S/P total colectomy 07/16/2017 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 PAST SURGICAL HISTORY Procedure Laterality Date ANGIOPLASTY 11/13/1993 CARPAL TUNNEL Bilateral CATARACT EXTRACTION HX Bilateral right 2016 and left 2018 CYSTOSCOPY AND TREATMENT botox injection ECHOCARDIOGRAM 07/05/2017 HEART CATHETERIZATION 02/24/2002 LAPAROSCOPY SURG RPR INITIAL INGUINAL HERNIA 01/11/09 PAST SURGICAL HISTORY OF 07/03/2017 COLECTOMY ABDOMINAL W/O PROCTECTOMY W/ ILEOSTOMY/ILEOPROCTOSTOMY, TOTAL RECONSTRUCTION ROTATOR CUFF AVULSION CHRONIC left RPR INGUN HERNIA SLIDING ANY AGE LIH RPR UMBILICAL HRNA 5 YRS/> REDUCIBLE 01/11/09 SIGMOIDOSCOPY 07/02/2017 and 07/2019 moderately differentiated adenocarcinoma-sigmoid colon mass FAMILY HISTORY Problem Relation Age of Onset Prostate Cancer Father Cancer Father skin Heart Mother [place] late 50's Stroke Mother Diabetes Mother Social History Tobacco Use Smoking status: Never Smokeless tobacco: Current Types: Chew Vaping Use Vaping Use: Never used Substance Use Topics Alcohol use: Yes Alcohol/week: 2.0 standard drinks Types: 2 Shots of liquor per week Drug use: No COMPLETE REVIEW OF SYSTEMS: GENERAL: feeling well without fatigue, no recent change in weight HEENT: denies SHERIFF, change in hearing or vision, no other ENT complaints NECK: denies swelling or pain in neck RESPIRATORY: no cough, no wheezing or shortness of breath CARDIOVASCULAR: no chest pain, no palpitations GI: colostomy functioning well. : LUTS. MUSCULOSKELETAL: chronic arthritis pain in the right leg and hip using a cane. SKIN: no rash HEMATOLOGY/LYMPHOLOGY: negative for prolonged bleeding, no swollen lymph nodes NEURO: chronic numbness/tingling in finger tips attributed to previous chemotherapy. PHYSICAL EXAM: VS: BP 148/72 Pulse 102 Temp 37 C (98.6 F) (Temporal) Resp 20 Wt 83.9 kg (185 lb) SpO2 98% BMI 29.86 kg/m KPS: 90 General Appearance: Alert and oriented. No acute distress. HEENT: NCAT. Sclera anicteric. EOMI. Neck: Normal ROM. Chest: No respiratory distress. Musculoskeletal: Normal ROM in extremities. Neuro: Speech fluent. No focal deficits. Skin: No rashes noted Hematologic: No signs of active bleeding. 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 I discussed treatment options with him. SBRT can be an option of oligo-progression. He wishes to pursue it. I explained the rationale, benefits, alternative management options and potential complications of radiation treatment to the patient and he understands and agrees to proceed. It was explained and understood that other personnel such as radiation therapists, emergency medicine, and physicists will participate in planning and delivery of radiation treatment. Permanent tattoo null will be placed to aid with positioning for daily treatment and the patient consented. Patient will have a simulation procedure within a week. Thank you very much for allowing us to participate in his care. Signed by: Clement Werner MD cc: Vishal Jones [address] [place] [address] Sam Greenberg [address] [facility] [address] documented in this encounter [facility] 12-18-2022 Note HNO ID: [id number] Author: Sylvia Rossi MA Service: ? Author Type: Tripoler Type: Progress Notes Filed: 12/18/2022 3:14 PM Note Text: Scan on 12/12/2022 7:23 PM by External Provider: X-ray Sylvia Rossi MA [facility] 12-18-2022 History of Present illness Narrative Scan on 12/12/2022 7:23 PM by External Provider: X-ray Sylvia Rossi MA documented in this encounter [facility] 12-06-2022 Miscellaneous Notes I spoke with pt's daughter. Her concern is that pt has ankle bractlet on for home arrest thru [facility] and is wondering if we can do radiation with that on. I encouraged her to go ahead and make appointment to discuss radiation with Dr Werner and we will work things out from there. connected to PSS and scheduled for 12/20/22 Left another message. Attempted to call pt at number given. Had to leave voice mail. Will attempt later again today. Daughter called and requested to speak to Dr. Werner's office. She has questions about radiation before scheduling. Attempted to call daughter back. Left VM for Rita to return call. Reviewed PET scan with Dr. Greenberg. Dr. Greenberg reviewed with Dr. Werner. PET scan 12/03/22 showed: Hypermetabolic left common iliac lymph node suspicious for metastases. Please schedule with Dr. Werner to discuss radiation to this area-as long as pt. and daughter agree. Thank you. Tameka Marshall APRN.ENVIRONMENTAL FIELD SERVICES TECHNICIAN Patient's daughter, Rita, called to get the results of PET Scan. Please advise. Nora Mansfield documented in this encounter [facility] 12-03-2022 History of Present illness Narrative RADIOLOGY SERVICE PROGRESS NOTE SERVICE DATE: 12/03/2022 SERVICE TIME: 11:09 AM PATIENT IDENTITY VERIFICATION COMPLETED USING TWO (2) STANDARD IDENTIFIERS: Name and Date of confirmed by patient verbally FALL SCREENING: Has the patient had 2 falls in the last year or 1 fall with injury or currently using an Ambulatory Assistive Device (Walker, Cane, Wheelchair, Crutches, etc.)? Yes, Patient High Risk for Falls What interventions were put in place to prevent falls during this visit? Yellow Falls Risk Wristband Applied, Instructed Patient to Call for Help if Needed, Offered Assistance with Transfers/Clothing, Instructed Patient to Remain Seated (Not on Exam Table) Until Exam, and Increased Observations by Caregivers PATIENT GENDER DATA: .male ALLERGIES: Reviewed and unchanged MEDICATIONS REVIEWED: Yes PATIENT RELEVANT IMPLANT DATA REVIEWED: Not Applicable CREATININE: Creatinine Date Value Ref Range Status 11/07/2022 0.95 0.73 - 1.22 mg/dL Final 09/25/2022 1.07 0.73 - 1.22 mg/dL Final 08/21/2022 0.91 0.73 - 1.22 mg/dL Final Estimated Glomerular Filtration Rate Date Value Ref Range Status 11/07/2022 79 >=60 mL/min/1.73m Final Comment: Estimated Glomerular Filtration Rate (eGFR) is calculated using the 2020 CKD-EPI creatinine equation. This equation utilizes serum creatinine, sex, and age as parameters. The creatinine assay has traceable calibration to isotope dilution-mass spectrometry. Refer to KDIGO guidelines for clinical interpretation. In patients with unstable renal function, e.g. those with acute kidney injury, the eGFR may not accurately reflect actual GFR. eGFR- Date Value Ref Range Status 08/27/2021 >60 Final P.O.C.T. RESULTS: N/A December 03, [address] PERFORMED: No IV SITE: Ambulatory: NM only - direct IV injection in the Right hand POST EXAM PIV STATUS: Not applicable PROCEDURE TYPE: NM INJECT: PET/CT BODY SCAN. 14.2 mCi F18 FDG. No other medications given.. ADMINISTRATION TIME: 1103 PATIENT DISCHARGED TO: Ambulatory patient, left MA department area. A Diagnostic radioactive procedure has taken place, with no further precautions necessary other than routine body substance precautions. More information regarding radiation safety can be found using this link: [email or web address] SIGNATURE: RT Mackenzie(Ever) PATIENT NAME: Sam Hagen DATE: December 03, 2022 TIME: 11:09 AM PAGER/CONTACT #: documented in this encounter [facility] 11-28-2022 Miscellaneous Notes 1st attempt unable to leave a message with patient, to return call to schedule consult with Spine Surgery. Please transfer patient to [phone] as they will need to speak with patient to place phone note for provider to review prior to schedule Provider placed order to be seen by Neuro surgery, please assist patient with scheduling. Thank you ! Karuna Cannon LPN Pt with severe spine stenosis of L spine. Patient should be seen by neurosurgery or ortho spine. Referral can be made if patient agrees with plan. TC to patient who is agreeable to neuro surgery, requested we contact his daughter, Rita, for scheduling. Message left with daughter to call office back. Please place order. Karuna Cannon LPN documented in this encounter [facility] 11-27-2022 Note [facility] 11-27-2022 History of Present illness Narrative Radiology Service Progress Note PATIENT NAME: Sam Hagen DATE OF SERVICE: November 27, 2022 TIME: 11:24 AM PATIENT IDENTITY VERIFICATION COMPLETED USING TWO (2) IDENTIFIERS: Name and Date of confirmed by patient verbally. FALL SCREENING: Has the patient had 2 falls in the last year or 1 fall with injury or currently using an Ambulatory Assistive Device (Walker, Cane, Wheelchair, Crutches, etc.)? Yes, Patient High Risk for Falls What interventions were put in place to prevent falls during this visit? Instructed Patient to Call for Help if Needed, Offered Assistance with Transfers/Clothing, Instructed Patient to Remain Seated (Not on Exam Table) Until Exam, and Increased Observations by Caregivers PATIENT GENDER DATA: Male PATIENT RELEVANT IMPLANT DATA REVIEWED: Yes RADIOLOGY DEPARTMENT: MR; Exam(s) Completed: Head: Routine Brain Spine: Lumbar spine PERIPHERAL IV DATA: Not applicable SIGNED BY: RT Ismael(R) November 27, 2022 11:24 AM documented in this encounter [facility] 11-20-2022 Miscellaneous Notes TC to Rita to inform of below. A letter from Dr. Liu was signed and faxed to public health policy analyst Nora Ott on October 11 as requested by the family for patient to ankle bracelet removed to have scans completed. (Please see TE 10/01/22). At this point, family needs to contact [facility]'s department or public health policy analyst's office to clarify what is needed as letter has already been faxed as requested. BETY Putnam Spoke with [facility] dept, they instructed pt. To reschedule MRI. Shreya Villalta LPN message left on daughters work and mobile number . Contacted [facility] dept. Concerning pts. Ankle bracelet, also telephone note sent to inDr. Liu(ordering physician of MRI) that [facility] dept. Needed fax requesting that monitor be removed for procedure (mri) Fax letter to [phone]. Then spoke with Lorin Salinas she stated she spoke with scheduling and she believes the appt. For MRI was rescheduled for 11/27 @ 11:15 am. Will contact her in the morning to see if MRI was changed. Shreya Villalta LPN Please keep open until 11/19 Please inform daughter that we did not order the MRI we ordered the PET scan. The reason for the PET is that there is a lymph node that is enlarged (on CT) that we need to follow up on. At last OV pt. was here with his granddaughter. He was appropriate in conversation. Thank you. Tameka Marshall APRN.SOULEYMANE Please call daughter [phone] after 4 pm or [phone] before 4 pm. Patient's daughter Rita was transferred directly to Dr. Jones's office. She indicated that patient is having an MRI tommorow and she is requesting his ankle bracelet be taking off for this. Patient told his daughter that someone indicated that he has a lymph on his belly that may be cancer. He was told to have follow up testing but has no idea what that is. Daughter is wanting to find out the testing to see if this can all be done tomorrow while he has his ankle bracelet off. She also mentioned that patient's memory is not good. She has to remind him constantly of daily issues. She has to remind him why he has the ankle bracelet and why. Or why he cannot drive etc. Sylvia Rossi MA documented in this encounter [facility] 11-15-2022 Note [facility] 11-15-2022 History of Present illness Narrative Chief Complaint Patient presents with: ED Follow-up HPI Sam Hagen is a 82 year old male who presents here today for ER Follow Up.. Patient was seen in [facility] ER on 10/31/2022 after a fall on his cement driveway. No loss of consciousness, however did bang up the right side of his face some. He was walking without his cane or walker at the time and does have low back issues. Patient denied any headache, changes in Mood, nausea or vomiting. He did have a cervical x-ray that was ok except arthritic changes. A CT of the head showed no bone fractures or bleeds. Per patient and granddaughter he had no nausea, vomiting, headache's or abnormal mood changes the days following the ER visit. Still c/o low back pain and leg pains. Past medical history, appointments, medications, allergies reviewed. Previous Medical History PAST MEDICAL HISTORY Diagnosis Date A-fib (HCC) s/p colectomy 2016. 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 Consult to vasc Bladder stone 09/25/[address] Bagley BPH with obstruction/lower urinary tract symptoms BPH with obstruction/lower urinary tract symptoms Dr. Hendrix Calculus of gallbladder with chronic cholecystitis without obstruction 06/13/2021 Chronic midline back pain 10/20/2017 Cog-wheel rigidity 06/18/2019 left upper extrmity, right upper extremity lead piping Cognitive impairment, mild, so stated 06/18/2019 Colon cancer ([facility]) 06/30/[address] Greenberg, Had extension into the bladder wall and hd a partial cystectomy. Colostomy care ([facility]) 09/25/[address] ([facility]) 09/25/2017 Coronary artery disease involving solomon coronary artery 09/25/[address] Siddiqui [id number] DDD (degenerative disc disease), lumbar 12/14/2021 Elevated hemoglobin A1c 07/30/2018 Essential hypertension 04/02/2011 Essential tremor 08/16/2019 Generalized weakness 06/18/2019 H/O heart artery stent 09/25/2017 4 stents 1993 History of DVT (deep vein thrombosis) 09/25/2017 1st clot end of Aug 2017, started on Eliquis 09/15/2017 needs to be on till 03/15/2018 S/P colectomy History of GA (myocardial infarction) 1993 History of prostate cancer seeing Dr. White Hyperlipidemia, mixed 09/25/[address] ([facility]) 06/13/2021 Living will on file at physician's office 09/25/2022 DPA: Roseanne Albert, (daughter) Malignant neoplasm of ascending colon ([facility]) 07/29/2017 Malignant neoplasm of sigmoid colon ([facility]) 07/29/2017 Medicare annual wellness visit, subsequent 07/30/2018 Medicare part B: 03/15/2017 last done: 08/17/2019 Mixed incontinence 02/16/2020 Nerve pain 09/25/2017 Right side hip and up the spine Parastomal hernia without obstruction or gangrene Personal history of colon cancer 12/18/2020 Primary insomnia 01/02/2021 Rectal cancer (HCC) 10/12/2019 S/P total colectomy 07/16/2017 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 Situational depression 08/17/2019 Resolved as of 02/2020 Spinal stenosis, lumbar region with neurogenic claudication 08/19/2022 Tarsal tunnel syndrome of right side 06/23/2019 NCS 06/23/2019 Ventral hernia without obstruction or gangrene 09/24/2021 Previous Surgical History PAST SURGICAL HISTORY Procedure Laterality Date ANGIOPLASTY 11/13/1993 CARPAL TUNNEL Bilateral CATARACT EXTRACTION HX Bilateral right 2016 and left 2018 CYSTOSCOPY AND TREATMENT botox injection ECHOCARDIOGRAM 07/05/2017 HEART CATHETERIZATION 02/24/2002 LAPAROSCOPY SURG RPR INITIAL INGUINAL HERNIA 01/11/09 PAST SURGICAL HISTORY OF 07/03/2017 COLECTOMY ABDOMINAL W/O PROCTECTOMY W/ ILEOSTOMY/ILEOPROCTOSTOMY, TOTAL RECONSTRUCTION ROTATOR CUFF AVULSION CHRONIC left RPR INGUN HERNIA SLIDING ANY AGE LIH RPR UMBILICAL HRNA 5 YRS/> REDUCIBLE 01/11/09 SIGMOIDOSCOPY 07/02/2017 and 07/2019 moderately differentiated adenocarcinoma-sigmoid colon mass Family History FAMILY HISTORY Problem Relation Age of Onset Prostate Cancer Father Cancer Father skin Heart Mother [place] late 50's Stroke Mother Diabetes Mother Patient Allergies ALLERGIES No Known Allergies Current Medications Current Outpatient Medications on File Prior to Visit Medication Sig gabapentin (NEURONTIN) 300 mg capsule Take 2 capsules by mouth twice daily for 360 days. oxybutynin ER (DITROPAN XL) 10 mg 24 hr tablet Take 10 mg by mouth once daily. baclofen (LIORESAL) 10 mg tablet Take 0.5-1 tablets by mouth three times daily as needed. For spasms. nitroglycerin sublingual (NITROQUICK) 0.4 mg SL tablet Q5M atorvastatin (LIPITOR) 10 mg tablet Take 1 tablet by mouth daily at bedtime. For cholesterol. hydrOXYzine HCl (ATARAX) 25 mg tablet Take 1 tablet by mouth three times daily as needed. mirtazapine (REMERON) 30 mg tablet Take 1 tablet by mouth daily at bedtime. aspirin, enteric coated (ECOTRIN LOW STRENGTH) 81 mg EC tablet Take 1 tablet by mouth once daily. buprenorphine 7.5 mcg/hour ptwk apply 1 patch to CLEAN, DRY, AND INTACT SKIN and REPLACE every 7 days LORazepam (ATIVAN) 1 mg tablet Take by mouth. atenolol (TENORMIN) 25 mg tablet Take 0.5 tablets by mouth once daily. naproxen (NAPROSYN ORAL) Take 1 tablet by mouth once daily as needed. solifenacin 10 mg tablet Take 10 mg by mouth once daily. isosorbide mononitrate ER (IMDUR) 60 mg 24 hr tablet Take 60 mg by mouth once daily. No current facility-administered medications on file prior to visit. Social History Social History Tobacco Use Smoking status: Never Smokeless tobacco: Current Types: Chew Vaping Use Vaping Use: Never used Substance Use Topics Alcohol use: Yes Alcohol/week: 2.0 standard drinks Types: 2 Shots of liquor per week Drug use: No Review of Symptoms REVIEW OF SYSTEMS See HPI EXAM: BP 126/60 (BP Site: Left Arm, BP Position: Sitting, BP Cuff Size: Regular Adult) Pulse 68 Wt 81.2 kg (179 lb) BMI 28.89 kg/m General Appearance: Well appearing, alert, in no acute distress, well-hydrated, well nourished.. Neck: Supple, no adenopathy; thyroid symmetric, normal size, no bruits. Lungs: Lungs clear to auscultation. No wheezing, rhonchi, rales.. Heart: RRR without murmur, gallop, or rubs. No ectopy. Extremities: No deformities, edema, skin discoloration, Good capillary refill. . Neuro: crainal nerves 2-12 intact. Light touch sensation intact and symmetrical. Musc: strength intact. Health Maintenance List LDL CHOLESTEROL due on 09/25/2023 DIABETES SCREEN due on 11/07/2025 DTAP,TDAP,TD(5 - Td or Tdap) due on 07/15/2032 INFLUENZA Completed ADVANCE DIRECTIVE DISCUSSION Completed SHINGRIX VACCINE Completed COVID-19 VACCINE Completed PNEUMOCOCCAL: 65+ Completed Data reviewed A/P ASSESSMENT/PLAN: 1. Fall, initial encounter - ICD9: E888.9, ICD10: W19.XXXA - doing ok. No signs of a concussion. Advised him that using his walker would be the preferred assistance device. Patient to f/u next routine or sooner if issues. Vishal Jones MD documented in this encounter [facility] 11-14-2022 Note [facility] 11-14-2022 Note HNO ID: [id number] Author: Shreya Villalta LPN Service: ? Author Type: LICENSED NURSE Type: Progress Notes Filed: 11/15/2022 2:24 PM Note Text: Est. Pt. , discuss recent labs 11/07 [facility] 11-08-2022 Miscellaneous Notes Patient's daughter notified that patient had not been seen here at this office. Sylvia Rossi MA Let daughter know Sam was not seen in my office on 11/01/2022. That last time he saw me was 10/09/2022 and no one was with him. He was to be seen on 11/04/2022 but no showed for the appt. Patient's daughter and POA is requesting for formal written documentation of the incident that occurred during the patient's office visit with Dr. Jones on 11/01/22. The daughter states that a woman who has a restraining order attempted to attend the appointment with the patient and was asked to leave. They are needing the events of the incident for an upcoming court appearance for the patient. Please fax letter to patient's daughter if possible at [phone] or call her on her cell or work number at [phone] if more information Is required. documented in this encounter [facility] 11-07-2022 Note [facility] 11-07-2022 Note [facility] 11-07-2022 History of Present illness Narrative Radiology Service Progress Note DATE OF SERVICE: November 07, 2022 TIME: 4:16 PM PATIENT IDENTITY VERIFICATION COMPLETED USING TWO (2) STANDARD IDENTIFIERS: Name and Date of confirmed by patient verbally. FALL SCREENING: Has the patient had 2 falls in the last year or 1 fall with injury or currently using an Ambulatory Assistive Device (Walker, Cane, Wheelchair, Crutches, etc.)? No PATIENT GENDER DATA: Male PATIENT RELEVANT IMPLANT DATA REVIEWED: Yes ALLERGIES: Reviewed and unchanged CONTRAST ALLERGY: NO. EXAM: CT -CONTRAST INDUCED NEPHROPATHY RISK FACTORS: Patient age > 60 years CREATININE: Creatinine Date Value Ref Range Status 11/07/2022 0.95 0.73 - 1.22 mg/dL Final 09/25/2022 1.07 0.73 - 1.22 mg/dL Final 08/21/2022 0.91 0.73 - 1.22 mg/dL Final Estimated Glomerular Filtration Rate Date Value Ref Range Status 11/07/2022 79 >=60 mL/min/1.73m Final Comment: Estimated Glomerular Filtration Rate (eGFR) is calculated using the 2020 CKD-EPI creatinine equation. This equation utilizes serum creatinine, sex, and age as parameters. The creatinine assay has traceable calibration to isotope dilution-mass spectrometry. Refer to KDIGO guidelines for clinical interpretation. In patients with unstable renal function, e.g. those with acute kidney injury, the eGFR may not accurately reflect actual GFR. eGFR- Date Value Ref Range Status 08/27/2021 >60 Final P.O.C.T. RESULTS: POC done: Yes, See Lab Tab November 07, 2022 TREATMENT: N/A PERIPHERAL IV DATA: power port accessed by hemoc RADIOLOGY DEPARTMENT: CT; Exam(s) Completed: Abdomen/Pelvis SIGNATURE: RT Arturo(R) PATIENT NAME: Sam Hagen DATE: November 07, 2022 TIME: 4:16 PM documented in this encounter [facility] 11-07-2022 History of Present illness Narrative Patient is here for IVAD port flush/blood draw per [facility] protocol. IVAD is located in left upper chest. Site cleansed with Chloraprep IVAD accessed with a #20 gauge 3/4 non-coring Gripper needle Flush with 5cc's Normal Saline. Blood Return: Good. 10 cc's blood aspirated and discarded. Blood drawn for CBC and CMP. Flushed with: 20 ml Normal Saline. Non-coring needle left intact for further therapy. Opsite applied to puncture site. Site negative for redness, edema or tenderness. Patient tolerated procedure well. documented in this encounter [facility] 11-01-2022 Note [facility] 11-01-2022 History of Present illness Narrative Scan on 10/31/2022 8:55 PM by External Provider: Consultation - Emergency Medicine Scan on 10/31/2022 8:51 PM by External Provider: CT Scan Scan on 10/31/2022 8:49 PM by External Provider: CT Scan Scan on 10/31/2022 8:16 PM by External Provider: CT Scan Scan on 10/31/2022 8:15 PM by External Provider: CT Scan Please review. Sylvia Rossi MA documented in this encounter [facility] 10-28-2022 Miscellaneous Notes Patient has been identified by name and date of : Yes Last office visit in this department: Visit date not found RX INSTRUCTIONS: Patient aware RX will be sent to pharmacy. No need to notify patient. Patient phones requesting refills as follows: Requested Prescriptions Pending Prescriptions Disp Refills gabapentin (NEURONTIN) 300 mg capsule 180 capsule 1 Sig: Take 2 capsules by mouth twice daily for 360 days. Please review and advise. Brenda Najera Pss documented in this encounter [facility] 10-21-2022 Note [facility] 10-21-2022 History of Present illness Narrative ESTABLISHED PATIENT VISIT CHIEF COMPLAINT: Follow Up HISTORY OF PRESENT ILLNESS: Sam Hagen is a 82 year old male, BMI 28.15 kg/m2 with a PMH significant for and per last office visit of 08/19/22: 1. Right leg pain - ICD9: 729.5, ICD10: M79.604 (primary diagnosis) 2. Lumbar pain - ICD9: 724.2, ICD10: M54.50 3. Spinal stenosis, lumbar region with neurogenic claudication - ICD9: 724.03, ICD10: M48.062 Patient with no change in complaints or symptoms since last seen. Never completed workup. Again, recommending MRI of L spine as above. 4. Frequent nocturnal awakening - ICD9: 780.59, ICD10: G47.00 5. Sleep apnea-like behavior - ICD9: 780.59, ICD10: G47.39 6. Insomnia, unspecified type - ICD9: 780.52, ICD10: G47.00 Pain likely contributing to complaints but still concern for SARIKA as well as PLMD as noted above. Again, recommending PSG in lab. 7. Cognitive impairment - ICD9: 294.9, ICD10: R41.89 Recently likely exacerbated by UTI. Modified MOCA as above. Metabolic workup unremarkable. CT brain reported as no significant findings as above. Still feel MRI brain appropriate to further evaluate as above. Patient still has not completed any of the above workup. Pt make no comment as to why these have not been done (has GPS bracelet due to reported house arrest). States pain in lumbar spine and into RLE no better. On gabapentin as Rx'd by pain mgmt as well as Buprenorphine patch. States he is out, and need refill. Sleep still terrible. He blames insomnia on back pain. States he falls asleep but cannot stay asleep. Again previously advised pt to have PSG. When asked about memroy issues states I just don't remember . REVIEW OF SYSTEMS GENERAL:No weight loss, malaise or fevers. HEENT:Negative for frequent or significant headaches, No changes in hearing or vision, no nose bleeds or other nasal problems RESPIRATORY: Negative for cough, wheezing or shortness of breath. CARDIOVASCULAR: Negative for chest pain, leg swelling or palpitations. GASTROINTESTINAL: Negative for abdominal discomfort, blood in stools or black stools or change in bowel habits GENITOURINARY: No history of dysuria, frequency or incontinence MUSCULOSKELETAL: See HPI. NEUROLOGIC:See HPI. LAB/IMAGING: Those performed since patient's last visit have been reviewed. WBC (k/uL) Date Value 08/21/2022 7.89 RBC (m/uL) Date Value 08/21/2022 4.02 (L) Hemoglobin (g/dL) Date Value 08/21/2022 12.3 (L) Hematocrit (%) Date Value 08/21/2022 38.3 (L) MCV (fL) Date Value 08/21/2022 95.3 MCH (pg) Date Value 08/21/2022 30.6 MCHC (g/dL) Date Value 08/21/2022 32.1 RDW-CV (%) Date Value 08/21/2022 14.0 Platelet Count (k/uL) Date Value 08/21/2022 230 MPV (fL) Date Value 08/21/2022 8.7 (L) Glucose (mg/dL) Date Value 09/25/2022 92 BUN (mg/dL) Date Value 09/25/2022 24 Creatinine (mg/dL) Date Value 09/25/2022 1.07 Sodium (mmol/L) Date Value 09/25/2022 136 Potassium (mmol/L) Date Value 10/01/2022 4.9 Chloride (mmol/L) Date Value 09/25/2022 100 CO2 (mmol/L) Date Value 09/25/2022 26 Protein, Total (g/dL) Date Value 08/21/2022 6.3 Albumin (g/dL) Date Value 08/21/2022 4.0 Calcium, Total (mg/dL) Date Value 09/25/2022 10.1 Alkaline Phosphatase (U/L) Date Value 08/21/2022 80 Bilirubin, Total (mg/dL) Date Value 08/21/2022 0.2 AST (U/L) Date Value 08/21/2022 16 ALT (U/L) Date Value 08/21/2022 18 MEDICATIONS: oxybutynin ER (DITROPAN XL) 10 mg 24 hr tablet Take 10 mg by mouth once daily. nitroglycerin sublingual (NITROQUICK) 0.4 mg SL tablet Q5M atorvastatin (LIPITOR) 10 mg tablet Take 1 tablet by mouth daily at bedtime. For cholesterol. gabapentin (NEURONTIN) 300 mg capsule Take 2 capsules by mouth twice daily for 360 days. hydrOXYzine HCl (ATARAX) 25 mg tablet Take 1 tablet by mouth three times daily as needed. mirtazapine (REMERON) 30 mg tablet Take 1 tablet by mouth daily at bedtime. traZODone (DESYREL) 50 mg tablet Take 1 tablet by mouth daily at bedtime. aspirin, enteric coated (ECOTRIN LOW STRENGTH) 81 mg EC tablet Take 1 tablet by mouth once daily. buprenorphine 7.5 mcg/hour ptwk apply 1 patch to CLEAN, DRY, AND INTACT SKIN and REPLACE every 7 days finasteride (PROSCAR) 5 mg tablet Take by mouth. LORazepam (ATIVAN) 1 mg tablet Take by mouth. atenolol (TENORMIN) 25 mg tablet Take 0.5 tablets by mouth once daily. naproxen (NAPROSYN ORAL) Take 1 tablet by mouth once daily as needed. tamsulosin ER (FLOMAX) 0.4 mg Take 0.4 mg by mouth once daily. solifenacin 10 mg tablet Take 10 mg by mouth once daily. isosorbide mononitrate ER (IMDUR) 60 mg 24 hr tablet Take 60 mg by mouth once daily. baclofen (LIORESAL) 10 mg tablet Take 0.5-1 tablets by mouth three times daily as needed. For spasms. HISTORIES 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 Consult to vasc Bladder stone 09/25/[address] Bagley BPH with obstruction/lower urinary tract symptoms BPH with obstruction/lower urinary tract symptoms Dr. Hendrix Calculus of gallbladder with chronic cholecystitis without obstruction 06/13/2021 Chronic midline back pain 10/20/2017 Cog-wheel rigidity 06/18/2019 left upper extrmity, right upper extremity lead piping Cognitive impairment, mild, so stated 06/18/2019 Colon cancer ([facility]) 06/30/[address] Greenberg, Had extension into the bladder wall and hd a partial cystectomy. Colostomy care ([facility]) 09/25/[address] ([facility]) 09/25/2017 Coronary artery disease involving solomon coronary artery 09/25/[address] Siddiqui [id number] DDD (degenerative disc disease), lumbar 12/14/2021 Elevated hemoglobin A1c 07/30/2018 Essential hypertension 04/02/2011 Essential tremor 08/16/2019 Generalized weakness 06/18/2019 H/O heart artery stent 09/25/2017 4 stents 1993 History of DVT (deep vein thrombosis) 09/25/2017 1st clot end of Aug 2017, started on Eliquis 09/15/2017 needs to be on till 03/15/2018 S/P colectomy History of GA (myocardial infarction) 1993 History of prostate cancer seeing Dr. Prano Hyperlipidemia, mixed 09/25/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) 06/13/2021 Living will on file at physician's office 09/25/2022 DPA: Roseanne Albert, (daughter) Malignant neoplasm of ascending colon (HCC) 07/29/2017 Malignant neoplasm of sigmoid colon (HCC) 07/29/2017 Medicare annual wellness visit, subsequent 07/30/2018 Medicare part B: 03/15/2017 last done: 08/17/2019 Mixed incontinence 02/16/2020 Nerve pain 09/25/2017 Right side hip and up the spine Parastomal hernia without obstruction or gangrene Personal history of colon cancer 12/18/2020 Primary insomnia 01/02/2021 Rectal cancer (HCC) 10/12/2019 S/P total colectomy 07/16/2017 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 Situational depression 08/17/2019 Resolved as of 02/2020 Spinal stenosis, lumbar region with neurogenic claudication 08/19/2022 Tarsal tunnel syndrome of right side 06/23/2019 NCS 06/23/2019 Ventral hernia without obstruction or gangrene 09/24/2021 FAMILY HISTORY Problem Relation Age of Onset Prostate Cancer Father Cancer Father skin Heart Mother [place] late 50's Stroke Mother Diabetes Mother SOCIAL HISTORY Social History Tobacco Use Smoking status: Never Smokeless tobacco: Current Types: Chew Vaping Use Vaping Use: Never used Substance Use Topics Alcohol use: Yes Alcohol/week: 2.0 standard drinks Types: 2 Shots of liquor per week Drug use: No PHYSICAL EXAMINATION BP 110/64 Pulse 87 Temp 37.5 C (99.5 F) (Left Tympanic) Resp 16 Wt 79.1 kg (174 lb 6.4 oz) SpO2 95% BMI 28.15 kg/m GENERAL EXAM: General: Awake, alert, oriented x3 (person,place,time), speech fluent, no dysarthria; comprehension, naming, repetition intact. CN: PERRL, EOMI and without nystagmus, VFF to confrontation, facial sensation and strength are normal and symmetric, hearing is intact, palate and tongue movements are intact and symmetric. SCM and trapezius strength normal. Motor: Normal tone, bulk and strength (5/5) bilaterally (throughout extremities x4). Coordination: FNF, KAREN, HTS intact. No tremors. Sensation: Light touch intact throughout. No evidence of neglect. Gait: Stable with normal stride and arm swing but using cane. Assessment and Plan: ASSESSMENT/PLAN: 1. Right leg pain - ICD9: 729.5, ICD10: M79.604 (primary diagnosis) 2. Lumbar pain - ICD9: 724.2, ICD10: M54.50 3. Spinal stenosis, lumbar region with neurogenic claudication - ICD9: 724.03, ICD10: M48.062 -MRI L spine. We will again assist pt in scheduling study. -Encouraged follow up with Pain mgmt. 4. Frequent nocturnal awakening - ICD9: 780.59, ICD10: G47.00 5. Sleep apnea-like behavior - ICD9: 780.59, ICD10: G47.39 6. Insomnia, unspecified type - ICD9: 780.52, ICD10: G47.00 -To some degree secondary to pain. See above. -As noted last visit, also in need of PSG. We will again assist pt in scheduling study. 7. Cognitive impairment - ICD9: 294.9, ICD10: R41.89 -No definite impairment on exam. Possibly due to meds. Still feel MRI brain appropriate and as above, will again assist pt in scheduling study. -Hold on neurocognitive assessment as need to eval for and treat sleep disorder and other med conditions that could be contributing to cognitive complaints. Mikhail Liu MD I spent a total of 23 minutes on the date of the service which included preparing to see the patient, [id number] patient care, completing clinical documentation, obtaining and/or reviewing separately obtained history, performing a medically appropriate examination, and counseling and educating the patient/family/caregiver. documented in this encounter [facility] 10-11-2022 Miscellaneous Notes Signed letter faxed to numbers provided below as requested. BETY Putnam TC to Dontrell Humphrey to clarify what needs to be documented in the letter for patient to receive MRI. Cora stated the GPS bracelet needs to be removed for the patient to complete an MRI and that the MRI is necessary for the patients help based on the Drs recommendation. The letter can then be faxed to the public health policy analyst below. Please advise. Thank you. BETY Putnam Please reach out to the number attached and clarify what is needed. Thank you, Mikhail Liu MD Received telephone call from [facility] Cora. Tech stated patient unable to complete MRI d/t currently required to wear a GPS bracelet through the courts & has to wear an ankle bracelet until future notice. Bracelet cannot be worn to complete MRI imaging. Daughter Roseanne (patient's POA) states if provider writes a letter stating patient needs to complete ordered MRI imaging & bracelet removal during imaging is needed a deputy may accompany patient to appt. to remove device as clinical staff is not allowed. Nursing staff: if letter is written fax letter to patient's public health policy analyst Nora Ott. Nora[employer]amica fax: [phone] ATTN: Nora Ott Please review & advise. Madisyn Arreguin MA 08/19/2022 Assessment and Plan: ASSESSMENT/PLAN: 1. Right leg pain - ICD9: 729.5, ICD10: M79.604 (primary diagnosis) 2. Lumbar pain - ICD9: 724.2, ICD10: M54.50 3. Spinal stenosis, lumbar region with neurogenic claudication - ICD9: 724.03, ICD10: M48.062 Patient with no change in complaints or symptoms since last seen. Never completed workup. Again, recommending MRI of L spine as above. 4. Frequent nocturnal awakening - ICD9: 780.59, ICD10: G47.00 5. Sleep apnea-like behavior - ICD9: 780.59, ICD10: G47.39 6. Insomnia, unspecified type - ICD9: 780.52, ICD10: G47.00 Pain likely contributing to complaints but still concern for SARIKA as well as PLMD as noted above. Again, recommending PSG in lab. 7. Cognitive impairment - ICD9: 294.9, ICD10: R41.89 Recently likely exacerbated by UTI. Modified MOCA as above. Metabolic workup unremarkable. CT brain reported as no significant findings as above. Still feel MRI brain appropriate to further evaluate as above. Pt will be assisted in ordering and scheduling testing. Pt to follow up after tests complete. Mikhail Liu MD documented in this encounter [facility] 10-09-2022 Note [facility] 10-09-2022 History of Present illness Narrative Chief Complaint Patient presents with: Rash: Patient is here for rash on both legs below the knee x 4 days HPI Sam Hagen is a 82 year old male who presents here today for rash on both legs below knee x 4 days . Denies any new contacts. Has been trying some lotion daily with no improvement No shortness of breath or wheezing Past medical history, appointments, medications, allergies reviewed. Previous Medical History 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 [facility]/[address] Bagley BPH with obstruction/lower urinary tract symptoms BPH with obstruction/lower urinary tract symptoms Dr. Hendrix Calculus of gallbladder with chronic cholecystitis without obstruction 06/13/2021 Chronic midline back pain 10/20/2017 Cog-wheel rigidity 06/18/2019 left upper extrmity, right upper extremity lead piping Cognitive impairment, mild, so stated 06/18/2019 Colon cancer ([facility]) 06/30/[address] Greenberg, Had extension into the bladder wall and hd a partial cystectomy. Colostomy care ([facility]) 09/25/[address] ([facility]) 09/25/2017 Coronary artery disease involving solomon coronary artery 09/25/[address] Siddiqui [id number] DDD (degenerative disc disease), lumbar 12/14/2021 Elevated hemoglobin A1c 07/30/2018 Essential hypertension 04/02/2011 Essential tremor 08/16/2019 Generalized weakness 06/18/2019 H/O heart artery stent 09/25/2017 4 stents 1993 History of DVT (deep vein thrombosis) 09/25/2017 1st clot end of Aug 2017, started on Eliquis 09/15/2017 needs to be on till 03/15/2018 S/P colectomy History of GA (myocardial infarction) 1993 History of prostate cancer seeing Dr. White Hyperlipidemia, mixed 09/25/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) 06/13/2021 Living will on file at physician's office 09/25/2022 DPA: Roseanne Albert, (daughter) Malignant neoplasm of ascending colon (HCC) 07/29/2017 Malignant neoplasm of sigmoid colon (HCC) 07/29/2017 Medicare annual wellness visit, subsequent 07/30/2018 Medicare part B: 03/15/2017 last done: 08/17/2019 Mixed incontinence 02/16/2020 Nerve pain 09/25/2017 Right side hip and up the spine Parastomal hernia without obstruction or gangrene Personal history of colon cancer 12/18/2020 Primary insomnia 01/02/2021 Rectal cancer (HCC) 10/12/2019 S/P total colectomy 07/16/2017 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 Situational depression 08/17/2019 Resolved as of 02/2020 Spinal stenosis, lumbar region with neurogenic claudication 08/19/2022 Tarsal tunnel syndrome of right side 06/23/2019 NCS 06/23/2019 Ventral hernia without obstruction or gangrene 09/24/2021 Previous Surgical History PAST SURGICAL HISTORY Procedure Laterality Date ANGIOPLASTY 11/13/1993 CARPAL TUNNEL Bilateral CATARACT EXTRACTION HX Bilateral right 2016 and left 2018 CYSTOSCOPY AND TREATMENT botox injection ECHOCARDIOGRAM 07/05/2017 HEART CATHETERIZATION 02/24/2002 LAPAROSCOPY SURG RPR INITIAL INGUINAL HERNIA 01/11/09 PAST SURGICAL HISTORY OF 07/03/2017 COLECTOMY ABDOMINAL W/O PROCTECTOMY W/ ILEOSTOMY/ILEOPROCTOSTOMY, TOTAL RECONSTRUCTION ROTATOR CUFF AVULSION CHRONIC left RPR INGUN HERNIA SLIDING ANY AGE LIH RPR UMBILICAL HRNA 5 YRS/> REDUCIBLE 01/11/09 SIGMOIDOSCOPY 07/02/2017 and 07/2019 moderately differentiated adenocarcinoma-sigmoid colon mass Family History FAMILY HISTORY Problem Relation Age of Onset Prostate Cancer Father Cancer Father skin Heart Mother [place] late 50's Stroke Mother Diabetes Mother Patient Allergies ALLERGIES No Known Allergies Current Medications Current Outpatient Medications on File Prior to Visit Medication Sig iv contrast (will be provided with radiology test) CT Chest ABD/PEL-Inject, intravenously, once for 1 dose.No [...] protocol in the CT contrast administration guidelines link. enteric contrast (will be provided with radiology test) For CT CHESTABD/PEL W IVCON Routine order Administer, As Directed One Time Only, via Oral, Rectal, both Oral and Rectal, Enteric Tube, Stoma or Indwelling Catheter, Enteric Contrast as designated per enteric contrast guidelines atorvastatin (LIPITOR) 10 mg tablet Take 1 tablet by mouth daily at bedtime. For cholesterol. gabapentin (NEURONTIN) 300 mg capsule Take 2 capsules by mouth twice daily for 360 days. hydrOXYzine HCl (ATARAX) 25 mg tablet Take 1 tablet by mouth three times daily as needed. mirtazapine (REMERON) 30 mg tablet Take 1 tablet by mouth daily at bedtime. traZODone (DESYREL) 50 mg tablet Take 1 tablet by mouth daily at bedtime. aspirin, enteric coated (ECOTRIN LOW STRENGTH) 81 mg EC tablet Take 1 tablet by mouth once daily. buprenorphine 7.5 mcg/hour ptwk apply 1 patch to CLEAN, DRY, AND INTACT SKIN and REPLACE every 7 days finasteride (PROSCAR) 5 mg tablet Take by mouth. LORazepam (ATIVAN) 1 mg tablet Take by mouth. nitroglycerin sublingual (NITROQUICK) 0.4 mg SL tablet Q5M atenolol (TENORMIN) 25 mg tablet Take 0.5 tablets by mouth once daily. naproxen (NAPROSYN ORAL) Take 1 tablet by mouth once daily as needed. tamsulosin ER (FLOMAX) 0.4 mg Take 0.4 mg by mouth once daily. solifenacin 10 mg tablet Take 10 mg by mouth once daily. isosorbide mononitrate ER (IMDUR) 60 mg 24 hr tablet Take 60 mg by mouth once daily. No current facility-administered medications on file prior to visit. Social History Social History Tobacco Use Smoking status: Never Smokeless tobacco: Current Types: Chew Vaping Use Vaping Use: Never used Substance Use Topics Alcohol use: Yes Alcohol/week: 2.0 standard drinks Types: 2 Shots of liquor per week Drug use: No Review of Symptoms REVIEW OF SYSTEMS See HPI EXAM: BP 142/82 (BP Site: Right Arm, BP Position: Sitting, BP Cuff Size: Regular Adult) Pulse 88 Temp 37.5 C (99.5 F) (Tympanic) Resp 16 Wt 80.3 kg (177 lb) BMI 28.57 kg/m General Appearance: Well appearing, alert, in no acute distress, well-hydrated, well nourished.. Skin: has a macular papular erythematous rash on both lower legs. No blistering. Has a scant amount on the right forearm . Health Maintenance List LDL CHOLESTEROL due on 09/25/2023 DIABETES SCREEN due on 09/25/2025 DTAP,TDAP,TD(5 - Td or Tdap) due on 07/15/2032 INFLUENZA Completed ADVANCE DIRECTIVE DISCUSSION Completed SHINGRIX VACCINE Completed COVID-19 VACCINE Completed PNEUMOCOCCAL: 65+ Completed Data reviewed A/P ASSESSMENT/PLAN: 1. Dermatitis - ICD9: 692.9, ICD10: L30.9 - Oral Steriod tx -Medrol dose pack - discussed skin care of rash - follow up if symptoms persist or worsen. Requested Prescriptions Signed Prescriptions Disp Refills nitroglycerin sublingual (NITROQUICK) 0.4 mg SL tablet 25 tablet 1 Sig: Q5M methylPREDNISolone (MEDROL, ELIZABETH,) 4 mg Dose-Pack 21 tablet 0 Sig: Follow dosing instructions, take with food. Vishal Jones MD documented in this encounter [facility] 10-09-2022 Miscellaneous Notes Patient came in to the office for unrelated reasons so I went ahead and scheduled the below appointments with him. Vashti Burgos Pss Pt. no showed for OV in August. Reviewed CT with Dr. Greenberg. Please schedule CT abd/pelvis end of Oct/early November to follow up on CT from August 2022. OV with CBC/BMP/LFT's/CEA after above. Thank you. Tameka Marshall APRN.ENVIRONMENTAL FIELD SERVICES TECHNICIAN documented in this encounter [facility] 09-30-2022 Miscellaneous Notes The following approved medication requests have been transmitted electronically. Requested Prescriptions Signed Prescriptions Disp Refills atorvastatin (LIPITOR) 10 mg tablet 90 tablet 1 Sig: Take 1 tablet by mouth daily at bedtime. For cholesterol. Authorizing Provider: SHARDA CARL PA-C Spoke with patient and gave results and instructions. Patient voiced understanding. Patient is does agree to start the medication. Sylvia Rossi MA Let patient know his blood sugar test is stable but elevated at 6.1%. continue to work on reduced sugars, starches in diet. Lipid panel showed elevated Trigs and LDL and would like to have him start taking lipitor 10 mg a day. If ok will send in script. His kidney functions and sodium were ok. His potassium was slightly elevated and need to repeat. Order placed. documented in this encounter [facility] 09-25-2022 History of Present illness Narrative Chief Complaint Patient presents with: Follow Up: Patient is here for 4 month follow up HPI Sam Hagen is a 82 year old male who presents here today for 4 month follow up. Patient with hx of a.fib, CAD, HLP, HTN, colon cancer, cognitive impairment, insomnia, BPH, depression, generalized weakness, recent falls and those as below. Patient indicated that his back is still hurting and keeping him up at bedtime. Gabapentin doesn't seem to be working even after he adjusted the dose to one in the AM and two in the PM. Seeing Dr. Small at [facility]. Seeing Dr. Krause in vascular and Dr. Liu in neurology. Past medical history, appointments, medications, allergies reviewed. Previous Medical History 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 Consult to [facility] Bladder stone 09/25/[address] Bagley BPH with obstruction/lower urinary tract symptoms BPH with obstruction/lower urinary tract symptoms Dr. Hendrix Chronic midline back pain 10/20/2017 Cog-wheel rigidity 06/18/2019 left upper extrmity, right upper extremity lead piping Cognitive impairment, mild, so stated 06/18/2019 Colon cancer ([facility]) 06/30/[address] Greenberg, Had extension into the bladder wall and hd a partial cystectomy. Colostomy care ([facility]) 09/25/[address] ([facility]) 09/25/2017 Coronary artery disease involving solomon coronary artery 09/25/[address] Huntley-[place] [id number] Elevated hemoglobin A1c 07/30/2018 Essential hypertension 04/02/2011 Essential tremor 08/16/2019 Generalized weakness 06/18/2019 H/O heart artery stent 09/25/2017 4 stents 1993 History of DVT (deep vein thrombosis) 09/25/2017 1st clot end of Aug 2017, started on Eliquis 09/15/2017 needs to be on till 03/15/2018 S/P colectomy History of GA (myocardial infarction) 1993 History of prostate cancer seeing Dr. 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 Situational depression 08/17/2019 Resolved as of 02/2020 Tarsal tunnel syndrome of right side 06/23/2019 NCS 06/23/2019 Ventral hernia without obstruction or gangrene 09/24/2021 Previous Surgical History PAST SURGICAL HISTORY Procedure Laterality Date ANGIOPLASTY 11/13/1993 CARPAL TUNNEL Bilateral CATARACT EXTRACTION HX Bilateral right 2016 and left 2018 CYSTOSCOPY AND TREATMENT botox injection ECHOCARDIOGRAM 07/05/2017 HEART CATHETERIZATION 02/24/2002 LAPAROSCOPY SURG RPR INITIAL INGUINAL HERNIA 01/11/09 PAST SURGICAL HISTORY OF 07/03/2017 COLECTOMY ABDOMINAL W/O PROCTECTOMY W/ ILEOSTOMY/ILEOPROCTOSTOMY, TOTAL RECONSTRUCTION ROTATOR CUFF AVULSION CHRONIC left RPR INGUN HERNIA SLIDING ANY AGE LIH RPR UMBILICAL HRNA 5 YRS/> REDUCIBLE 01/11/09 SIGMOIDOSCOPY 07/02/2017 and 07/2019 moderately differentiated adenocarcinoma-sigmoid colon mass Family History FAMILY HISTORY Problem Relation Age of Onset Prostate Cancer Father Cancer Father skin Heart Mother [place] late 50's Stroke Mother Diabetes Mother Patient Allergies ALLERGIES No Known Allergies Current Medications Current Outpatient Medications on File Prior to Visit Medication Sig hydrOXYzine HCl (ATARAX) 25 mg tablet Take 1 tablet by mouth three times daily as needed. mirtazapine (REMERON) 30 mg tablet Take 1 tablet by mouth daily at bedtime. traZODone (DESYREL) 50 mg tablet Take 1 tablet by mouth daily at bedtime. aspirin, enteric coated (ECOTRIN LOW STRENGTH) 81 mg EC tablet Take 1 tablet by mouth once daily. buprenorphine 7.5 mcg/hour ptwk apply 1 patch to CLEAN, DRY, AND INTACT SKIN and REPLACE every 7 days finasteride (PROSCAR) 5 mg tablet Take by mouth. LORazepam (ATIVAN) 1 mg tablet Take by mouth. nitroglycerin sublingual (NITROQUICK) 0.4 mg SL tablet Q5M naproxen (NAPROSYN ORAL) Take 1 tablet by mouth once daily as needed. tamsulosin ER (FLOMAX) 0.4 mg Take 0.4 mg by mouth once daily. solifenacin 10 mg tablet Take 10 mg by mouth once daily. isosorbide mononitrate ER (IMDUR) 60 mg 24 hr tablet Take 60 mg by mouth once daily. cefADROxil (DURICEF) 500 mg capsule Take 1 capsule by mouth twice daily. baclofen (LIORESAL) 5 mg tablet Take 1 tablet by mouth daily at bedtime. (Patient not taking: Reported on 09/25/2022) atenolol (TENORMIN) 25 mg tablet Take 0.5 tablets by mouth once daily. gabapentin (NEURONTIN) 300 mg capsule Take 1 capsule by mouth twice daily for 90 days. alpha tocopheryl acetate (VITAMIN E) 400 unit capsule Take 400 Units by mouth once daily. (Patient not taking: Reported on 09/25/2022) No current facility-administered medications on file prior to visit. Social History Social History Tobacco Use Smoking status: Never Smokeless tobacco: Current Types: Chew Vaping Use Vaping Use: Never used Substance Use Topics Alcohol use: Yes Alcohol/week: 2.0 standard drinks Types: 2 Shots of liquor per week Drug use: No Review of Symptoms REVIEW OF SYSTEMS GENERAL: No weight loss, malaise or fevers NECK: Negative for lumps, goiter, pain and significant neck swelling RESPIRATORY: Negative for hemoptysis, wheezing, COPD, dyspnea or shortness of breath. Sometimes has a cough in the AM with clear mucus. CARDIOVASCULAR: Negative for chest pain, leg swelling, hypertension, CHF or palpitations MUSCULOSKELETAL: has persistent low back pain and leg pains along with spasm some times. This affects his quality of sleep. ENDOCRINE: Negative for cold or heat intolerance, polyuria, polydipsia and goiter NEURO: No history of headaches, syncope, paralysis, seizures or tremors EXAM: BP 136/72 (BP Site: Right Arm, BP Position: Sitting, BP Cuff Size: Regular Adult) Resp 18 Wt 80.7 kg (178 lb) BMI 28.73 kg/m Last 4 Encounter Wt Readings: Date: Wt: 09/25/2022 80.7 kg (178 lb) 09/23/2022 79.4 kg (175 lb) 09/10/2022 80.3 kg (177 lb) 08/19/2022 78.5 kg (173 lb) General Appearance: Well appearing, alert, in no acute distress, well-hydrated, well nourished. and Overweight. Neck: Supple, no adenopathy; thyroid symmetric, normal size, no bruits. Lungs: Lungs clear to auscultation. No wheezing, rhonchi, rales.. Heart: RRR without murmur, gallop, or rubs. No ectopy. Abdomen: Normal abdominal exam, Abdomen soft, non-tender. Bowel sounds normal. No masses, organomegaly. Extremities: No deformities, edema, skin discoloration, Good capillary refill. . Peripheral Pulses: Normal. Health Maintenance List COVID-19 VACCINE(4 - Booster for Pfizer series) due on 09/12/2021 ADVANCE DIRECTIVE DISCUSSION due on 09/15/2022 LDL CHOLESTEROL due on 03/12/2023 DIABETES SCREEN due on 08/21/2025 DTAP,TDAP,TD(5 - Td or Tdap) due on 07/15/2032 INFLUENZA Completed SHINGRIX VACCINE Completed PNEUMOCOCCAL: 65+ Completed Data reviewed Component Latest Ref Rng & Units 03/12/2022 06/24/2022 08/21/2022 WBC 3.70 - 11.00 k/uL 7.89 RBC 4.20 - 6.00 m/uL 4.02 (L) Hemoglobin 13.0 - 17.0 g/dL 12.3 (L) Hematocrit 39.0 - 51.0 % 38.3 (L) MCV 80.0 - 100.0 fL 95.3 MCH 26.0 - 34.0 pg 30.6 MCHC 30.5 - 36.0 g/dL 32.1 RDW-CV 11.5 - 15.0 % 14.0 Platelet Count 150 - 400 k/uL 230 MPV 9.0 - 12.7 fL 8.7 (L) Neut% % 76.3 Abs Neut (ANC) 1.45 - 7.50 k/uL 6.02 Lymph% % 12.7 Abs Lymph 1.00 - 4.00 k/uL 1.00 [place]% % 8.6 Abs [place] <0.87 k/uL 0.68 Eosin% % 1.4 Abs Eosin <0.46 k/uL 0.11 Baso% % 0.4 Abs Baso <0.11 k/uL 0.03 Immature Gran % % 0.6 IMMATURE GRANS (ABS) <0.10 k/uL 0.05 NRBC /100 WBC 0.0 Absolute nRBC <0.01 k/uL <0.01 DTYPE Auto Glucose 74 - 99 mg/dL 150 (H) 165 (H) BUN 9 - 24 mg/dL 22 22 Creatinine 0.73 - 1.22 mg/dL 0.96 0.91 Sodium 136 - 144 mmol/L 137 136 Potassium 3.7 - 5.1 mmol/L 4.9 4.5 Chloride 97 - 105 mmol/L 103 99 CO2 22 - 30 mmol/L 23 27 Anion Gap 9 - 18 mmol/L 11 10 Calcium 8.5 - 10.2 mg/dL 10.1 9.3 eGFR >=60 mL/min/1.73m 78 84 Total Cholesterol, Nonfasting <200 mg/dL 177 Triglycerides, Nonfasting <150 mg/dL 220 (H) HDL Cholesterol, Nonfasting >39 mg/dL 34 (L) LDL Cholesterol, Nonfasting <100 mg/dL 99 Non HDL Cholesterol, Nonfasting <130 mg/dL 143 (H) VLDL Cholesterol, Nonfasting <30 mg/dL 44 (H) Total Chol/HDL Ratio, Nonfasting <5.10 mg/dL 5.21 (H) LDL/HDL Ratio, Nonfasting <2.54 mg/dL 2.91 (H) Hemoglobin A1C 4.3 - 5.6 % 5.9 (H) Estimated Average Glucose mg/dL 123 Magnesium 1.7 - 2.3 mg/dL 2.2 Vitamin B12 232 - 1,245 pg/mL 455 TSH 0.270 - 4.200 mIU/L 1.470 A/P ASSESSMENT/PLAN: 1. Essential hypertension - ICD9: 401.9, ICD10: I10 (primary diagnosis) - good control - Continue current medication(s) - Recommended regular aerobic exercise. - Recommend home blood pressure monitoring, to bring results in on next visit - Goal of BP <130/80 2. Hyperlipidemia, mixed - ICD9: 272.2, ICD10: E78.2 - to be determined upon return of lab results - Continue current medication. - Encouraged following a low fat, low cholesterol diet. - Discussed the benefits of regular aerobic exercise and weight loss. - Encouraged following a low carbohydrate, healthy oil intake diet. 3. Elevated hemoglobin A1c - ICD9: 790.29, ICD10: R73.09 - will check A1c 4. Coronary artery disease involving solomon coronary artery of solomon heart without angina pectoris - ICD9: 414.01, ICD10: I25.10 Clinically stable no changes and cont f/u with cardio 5. Paroxysmal atrial fibrillation (HCC) - ICD9: 427.31, ICD10: I48.0 - as per #4 6. Bilateral carotid artery stenosis - ICD9: 433.10, 433.30, ICD10: I65.23 - management per Vascular 7. Situational depression - ICD9: 309.0, ICD10: F43.21 - stable on current meds. 8. Malignant neoplasm of sigmoid colon (HCC) - ICD9: 153.3, ICD10: C18.7 - management per general surgery 9. Cognitive impairment, mild, so stated - ICD9: 331.83, ICD10: G31.84 - management per Neurology 10. Essential tremor - ICD9: 333.1, ICD10: G25.0 - as per #9. Stable 11. 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 Rectal cancer (HCC) - ICD9: 154.1, ICD10: C20 - as per #8 13. Malignant neoplasm of ascending colon (HCC) - ICD9: 153.6, ICD10: C18.2 - as per #8 14. Malignant neoplasm of colon, unspecified part of colon (HCC) - ICD9: 153.9, ICD10: C18.9 - as per #[address] (HCC) - ICD9: V44.3, ICD10: Z93.3 - as per #8 16. Colostomy care (HCC) - ICD9: V55.3, ICD10: Z43.3 - as per #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) - ICD9: V44.2, ICD10: Z93.2 - as per #8 18. BPH with obstruction/lower urinary tract symptoms - ICD9: 600.01, 599.69, ICD10: N40.1, N13.8 - management per urology 19. Spinal stenosis, lumbar region with neurogenic claudication - ICD9: 724.03, ICD10: M48.062 Seeing pain management and ortho Will increase the gabapentin to 300 mg two twice a day. 20. Advance directive discussed with patient - ICD9: V65.49, ICD10: Z71.89 - up to date 21. Encounter for immunization - ICD9: V03.89, ICD10: Z23 - [employer] COVID-19 BIVALENT BOOSTER VACCINE, AGE 12+ YR: given F/u 6 months extensive Vishal Jones MD documented in this encounter [facility] 09-24-2022 Note HNO ID: [id number] Author: Maye Gonzalez MD Service: ? Author Type: Physician Type: Progress Notes Filed: 09/23/2022 10:43 PM Note Text: Brittny Gonzalez MD General Surgery [address] [place] [address], [address] [place] [address] Patient referred by: Maye Gonzalez [address] [place] [address] HPI: Mr. 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 He underwent a subtotal colectomy with partial cystectomy and end ileostomy. In July 2019 he developed a pelvic recurrence and underwent excision of the upper portion of his rectum and part of the bladder. In July 2020 he underwent repair of a parastomal hernia which was complicated by an enteric leak requiring reoperation. Today he does not have any specific complaints. He continues to have some problems with arthritic pain and degeneration in his spine and hips. He has been somewhat prone to balance problems and falling. He is not having any problems with his ileostomy. He is not having any problems with his ventral hernia. His weight and appetite have remained stable. He continues to have minor clear mucus drainage from his rectum. He had a CT scan done a few weeks ago which showed an enlarged iliac node. A CEA level was also done which was a little higher than previously at 2.5. PAST MEDICAL HISTORY Diagnosis Date A-fib (HCC) s/p colectomy 2016. 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 Consult to vasc Bladder stone 09/25/[address] Bagley BPH with obstruction/lower urinary tract symptoms BPH with obstruction/lower urinary tract symptoms Dr. Hendrix Chronic midline back pain 10/20/2017 Cog-wheel rigidity 06/18/2019 left upper extrmity, right upper extremity lead piping Cognitive impairment, mild, so stated 06/18/2019 Colon cancer (HCC) 06/30/[address] Greenberg, Had extension into the bladder wall and hd a partial cystectomy. Colostomy care ([facility]) 09/25/[address] ([facility]) 09/25/2017 Coronary artery disease involving solomon coronary artery 09/25/[address] Huntley-[place] [id number] Elevated hemoglobin A1c 07/30/2018 Essential hypertension 04/02/2011 Essential tremor 08/16/2019 Generalized weakness 06/18/2019 H/O heart artery stent 09/25/2017 4 stents 1993 History of DVT (deep vein thrombosis) 09/25/2017 1st clot end of Aug 2017, started on Eliquis 09/15/2017 needs to be on till 03/15/2018 S/P colectomy History of GA (myocardial infarction) 1993 History of prostate cancer seeing Dr. 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 Situational depression 08/17/2019 Resolved as of 02/2020 Tarsal tunnel syndrome of right side 06/23/2019 NCS 06/23/2019 Ventral hernia without obstruction or gangrene 09/24/2021 PAST SURGICAL HISTORY Procedure Laterality Date ANGIOPLASTY 11/13/1993 CARPAL TUNNEL Bilateral CATARACT EXTRACTION HX Bilateral right 2016 and left 2018 CYSTOSCOPY AND TREATMENT botox injection ECHOCARDIOGRAM 07/05/2017 HEART CATHETERIZATION 02/24/2002 LAPAROSCOPY SURG RPR INITIAL INGUINAL HERNIA 01/11/09 PAST SURGICAL HISTORY OF 07/03/2017 COLECTOMY ABDOMINAL W/O PROCTECTOMY W/ ILEOSTOMY/ILEOPROCTOSTOMY, TOTAL RECONSTRUCTION ROTATOR CUFF AVULSION CHRONIC left RPR INGUN HERNIA SLIDING ANY AGE LIH RPR UMBILICAL HRNA 5 YRS/> REDUCIBLE 01/11/09 SIGMOIDOSCOPY 07/02/2017 and 07/2019 moderately differentiated adenocarcinoma-sigmoid colon mass FAMILY HISTORY Problem Relation Age of Onset Prostate Cancer Father Cancer Father skin Heart Mother [place] late 50's Stroke Mother Diabetes Mother Social History Tobacco Use Smoking status: Never Smokeless tobacco: Current Types: Chew Vaping Use Vaping Use: Never used Substance Use Topics Alcohol use: Yes Alcohol/week: 2.0 standard drinks Types: 2 Shots of liquor per week Drug use: No Current Outpatient Medications Medication Sig hydrOXYzine HCl (ATARAX) 25 mg tablet Take 1 tablet by mouth three times daily as need (more content not included)... [facility] 09-23-2022 History of Present illness Narrative Images from the original note were not included. Brittny Gonzalez MD General Surgery [address] [place] [address], [address] [place] [address] Patient referred by: Maye Gonzalez [address] [place] [address] HPI: Mr. 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 He underwent a subtotal colectomy with partial cystectomy and end ileostomy. In July 2019 he developed a pelvic recurrence and underwent excision of the upper portion of his rectum and part of the bladder. In July 2020 he underwent repair of a parastomal hernia which was complicated by an enteric leak requiring reoperation. Today he does not have any specific complaints. He continues to have some problems with arthritic pain and degeneration in his spine and hips. He has been somewhat prone to balance problems and falling. He is not having any problems with his ileostomy. He is not having any problems with his ventral hernia. His weight and appetite have remained stable. He continues to have minor clear mucus drainage from his rectum. He had a CT scan done a few weeks ago which showed an enlarged iliac node. A CEA level was also done which was a little higher than previously at 2.5. 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 Consult to [facility] Bladder stone 09/25/[address] Bagley BPH with obstruction/lower urinary tract symptoms BPH with obstruction/lower urinary tract symptoms Dr. Hendrix Chronic midline back pain 10/20/2017 Cog-wheel rigidity 06/18/2019 left upper extrmity, right upper extremity lead piping Cognitive impairment, mild, so stated 06/18/2019 Colon cancer ([facility]) 06/30/[address] Greenberg, Had extension into the bladder wall and hd a partial cystectomy. Colostomy care ([facility]) 09/25/[address] ([facility]) 09/25/2017 Coronary artery disease involving solomon coronary artery 09/25/[address] Siddiqui [id number] Elevated hemoglobin A1c 07/30/2018 Essential hypertension 04/02/2011 Essential tremor 08/16/2019 Generalized weakness 06/18/2019 H/O heart artery stent 09/25/2017 4 stents 1993 History of DVT (deep vein thrombosis) 09/25/2017 1st clot end of Aug 2017, started on Eliquis 09/15/2017 needs to be on till 03/15/2018 S/P colectomy History of [place] (myocardial infarction) 1993 History of prostate cancer seeing Dr. 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 Situational depression 08/17/2019 Resolved as of 02/2020 Tarsal tunnel syndrome of right side 06/23/2019 NCS 06/23/2019 Ventral hernia without obstruction or gangrene 09/24/2021 PAST SURGICAL HISTORY Procedure Laterality Date ANGIOPLASTY 11/13/1993 CARPAL TUNNEL Bilateral CATARACT EXTRACTION HX Bilateral right 2016 and left 2018 CYSTOSCOPY AND TREATMENT botox injection ECHOCARDIOGRAM 07/05/2017 HEART CATHETERIZATION 02/24/2002 LAPAROSCOPY SURG RPR INITIAL INGUINAL HERNIA 01/11/09 PAST SURGICAL HISTORY OF 07/03/2017 COLECTOMY ABDOMINAL W/O PROCTECTOMY W/ ILEOSTOMY/ILEOPROCTOSTOMY, TOTAL RECONSTRUCTION ROTATOR CUFF AVULSION CHRONIC left RPR INGUN HERNIA SLIDING ANY AGE LIH RPR UMBILICAL HRNA 5 YRS/> REDUCIBLE 01/11/09 SIGMOIDOSCOPY 07/02/2017 and 07/2019 moderately differentiated adenocarcinoma-sigmoid colon mass FAMILY HISTORY Problem Relation Age of Onset Prostate Cancer Father Cancer Father skin Heart Mother [place] late 50's Stroke Mother Diabetes Mother Social History Tobacco Use Smoking status: Never Smokeless tobacco: Current Types: Chew Vaping Use Vaping Use: Never used Substance Use Topics Alcohol use: Yes Alcohol/week: 2.0 standard drinks Types: 2 Shots of liquor per week Drug use: No Current Outpatient Medications Medication Sig hydrOXYzine HCl (ATARAX) 25 mg tablet Take 1 tablet by mouth three times daily as needed. mirtazapine (REMERON) 30 mg tablet Take 1 tablet by mouth daily at bedtime. traZODone (DESYREL) 50 mg tablet Take 1 tablet by mouth daily at bedtime. cefADROxil (DURICEF) 500 mg capsule Take 1 capsule by mouth twice daily. aspirin, enteric coated (ECOTRIN LOW STRENGTH) 81 mg EC tablet Take 1 tablet by mouth once daily. buprenorphine 7.5 mcg/hour ptwk apply 1 patch to CLEAN, DRY, AND INTACT SKIN and REPLACE every 7 days finasteride (PROSCAR) 5 mg tablet Take by mouth. LORazepam (ATIVAN) 1 mg tablet Take by mouth. nitroglycerin sublingual (NITROQUICK) 0.4 mg SL tablet Q5M baclofen (LIORESAL) 5 mg tablet Take 1 tablet by mouth daily at bedtime. atenolol (TENORMIN) 25 mg tablet Take 0.5 tablets by mouth once daily. naproxen (NAPROSYN ORAL) Take 1 tablet by mouth once daily as needed. tamsulosin ER (FLOMAX) 0.4 mg Take 0.4 mg by mouth once daily. solifenacin 10 mg tablet Take 10 mg by mouth once daily. isosorbide mononitrate ER (IMDUR) 60 mg 24 hr tablet Take 60 mg by mouth once daily. alpha tocopheryl acetate (VITAMIN E) 400 unit capsule Take 400 Units by mouth once daily. gabapentin (NEURONTIN) 300 mg capsule Take 1 capsule by mouth twice daily for 90 days. No current facility-administered medications for this visit. ALLERGIES No Known Allergies REVIEW OF SYSTEMS: ROS PHYSICAL EXAM: BP 116/58 Pulse 114 Ht 5' 6 (1.68m) Wt 175 lb (79.4kg) BMI 28.26 kg/(m^2). Last 2 Encounter Wt Readings: Date: Wt: 09/23/2022 79.4 kg (175 lb) 09/10/2022 80.3 kg (177 lb) Physical Exam Vitals reviewed. Constitutional: General: He is not in acute distress. Appearance: Normal appearance. He is normal weight. He is not ill-appearing. Cardiovascular: Rate and Rhythm: Normal rate and regular rhythm. Heart sounds: Normal heart sounds. Pulmonary: Breath sounds: Normal breath sounds. Abdominal: General: Abdomen is flat. There is no distension. Palpations: Abdomen is soft. There is no mass. Tenderness: There is no abdominal tenderness. Hernia: A hernia is present. Comments: Ileostomy in LLQ-small amount of semiformed formed stool Rentz mucosa; vague bulge underneath this but not severe Midline ventral hernia in the epigastrium-easily reducible, nontender, fascial defect about 5 cm in size. Skin: General: Skin is warm and dry. Neurological: General: No focal deficit present. Mental Status: He is alert. Motor: Weakness present. Psychiatric: Mood and Affect: Mood normal. Behavior: Behavior normal. DATA: Diagnostic tests reviewed for today's visit: Most recent labs Most recent imaging CT scan enlarged left iliac node- 1.1 cm CEA 2.5 (was 1.4 in February 2022) Plan Assessment and Plan: Encounter Diagnosis ICD-10-CM 1. Ventral hernia without obstruction or gangrene K43.[address] (HCC) Z93.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) Z93.2 4. Paroxysmal atrial fibrillation (HCC) I48.0 5. History of colon cancer Z85.038 6. 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) Comment: stable Has a parastomal hernia but causing any problems- Plan: will cont ti monitor (I48.0) Paroxysmal atrial fibrillation (HCC) Comment: stable Plan: Continue current medical management (Z85.038) History of colon cancer Comment: Status post total abdominal colectomy with end ileostomy In 2017 - Pelvic recurrence in 2019 S/p -Excision of upper rectum pelvic mass and part of the bladder CT scan with enlarging left iliac node and CEA level rising although still not very high-this raises concern for recurrent disease Plan: Likely needs PET scan (K43.5) Parastomal hernia without obstruction or gangrene Comment: Stable Plan: We will continue to follow The primary encounter diagnosis was Ventral hernia without obstruction or gangrene. Diagnoses of Colostomy in place (HCC), 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), Paroxysmal atrial fibrillation (HCC), History of colon cancer, and Parastomal hernia without obstruction or gangrene were also pertinent to this visit. 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 Greater than 50% of the direct patient contact time was spent in counseling or coordination of care. Please Note: This office note has been created using [employer], a speech recognition software program, and may contain errors including punctuation, grammar, spelling, gender, and inappropriate words or phrases that pertain to the sytem. documented in this encounter [facility] 09-13-2022 Miscellaneous Notes Patient identified by name and date of . I advised patient the urine culture showed that macrobid would likely be ineffective to treat his UTI. He states he is still having some dysuria. Bactrim sent to his pharmacy, patient advised to stop Macrobid and start Bactrim. He verbalized understanding. Kassandra Grady APRN.ENVIRONMENTAL FIELD SERVICES TECHNICIAN documented in this encounter [facility] 09-10-2022 Miscellaneous Notes BJ with [facility] called in states the Pts phone wasn't working. Pt states he was having UTI like issues. He was having leaking and pain with urination. Let her know there were no open appointments and to have him come to [facility]. Let her know EC is open until 8 pm. documented in this encounter [facility] 08-27-2022 Miscellaneous Notes Form faxed to Form signed. Paperwork received and given to PCP for review. Sylvia Rossi MA [facility] calling and states they will be faxing request for supplies for patient to PCP office and confirming fax number. Fax number verified. Meka Capps RN documented in this encounter [facility] 08-21-2022 History of Present illness Narrative Radiology Service Progress Note PATIENT NAME: Sam Hagen DATE OF SERVICE: August 21, 2022 TIME: 2:52 PM PATIENT IDENTITY VERIFICATION COMPLETED USING TWO (2) IDENTIFIERS: Name and Date of confirmed by patient verbally. FALL SCREENING: Has the patient had 2 falls in the last year or 1 fall with injury or currently using an Ambulatory Assistive Device (Walker, Cane, Wheelchair, Crutches, etc.)? No PATIENT GENDER DATA: Male PATIENT RELEVANT IMPLANT DATA REVIEWED: Yes RADIOLOGY DEPARTMENT: CT; Exam(s) Completed: Chest Abdomen Pelvis PERIPHERAL IV DATA: power port accessed by [employer] SIGNED BY: RT Arturo(R) August 21, 2022 2:52 PM documented in this encounter [facility] 08-19-2022 History of Present illness Narrative ESTABLISHED PATIENT VISIT CHIEF COMPLAINT: Follow Up HISTORY OF PRESENT ILLNESS: Sam Hagen is a 82 year old male, BMI 27.32 kg/m2 with a PMH significant for and per last office visit of 06/24/2022: 1. Right leg pain - ICD9: 729.5, ICD10: M79.604 (primary diagnosis) 2. Lumbar pain - ICD9: 724.2, ICD10: M54.50 3. Spinal stenosis, lumbar region with neurogenic claudication - ICD9: 724.03, ICD10: M48.062 Patient with RLE pain that per history is associated with lumbar pain that radiates down the lower extremity following the S1 dermatome. No noted weakness on exam or obvious sensory deficits. States already in PT for symptoms with no improvement. No responding to pain meds with pt followed by pain mgmt. History suggestive of L spine etiology. Will further evaluate by means of MRI wo contrast of L spine. Further plan to be determined once results known. 4. Frequent nocturnal awakening - ICD9: 780.59, ICD10: G47.00 5. Sleep apnea-like behavior - ICD9: 780.59, ICD10: G47.39 6. Insomnia, unspecified type - ICD9: 780.52, ICD10: G47.00 Patient with poor sleep although history regarding sleep is somewhat limited. Taking multiple medications at night to fall asleep. Likely contributing to insomnia is known history of anxiety again for which he is on multiple medications and following with PCP. Pain also likely contributing to sleep. While has leg cramps, these appear secondary to problems #1,2,3 and not fully consistent with an RLS picture. I am also concerned that pt has SARIKA possibly further exacerbated by his pain med and sedating meds. To further evaluate and clarify causes of poor sleep at night will have patient undergo an in-lab PSG. Pt requests [facility]. 7. Cognitive impairment - ICD9: 294.9, ICD10: R41.89 Unclear etiology. On multiple meds that could impair cognition. In addition, poor sleep could be contributing as well. Patient also with depression and anxiety, and thus, need to question if cognitive impairment is due to pseudodementia. Patient not endorsing triad of NPH. Also consider metabolic cause as well as neurodegenerative disorder. Will initiate workup with labs: B12/TSH/T4, sleep study as above, and MRI brain wo contrast to evaluate for intracranial source including vascular changes, hydrocephalus and/or pattern of atrophy to suggest a neurodegenerative process. Patient with complaints unchanged from last visit. Never had any testing. States pain mgmt told him (local) that his pain is due to his back and that he is not a surgical candidate due to his age. Pain starts in lower back and radiates into L5-S1 dermatomes. Sleep is also given patient problems, with pain keeping him awake. States if takes gabapentin gets about 1 hour of sleep. Sleep is up and down all night depending on pain. States memory is still terrible per his friends. Metabolic workup negative. Again, never had MRI brain. Pt has poor understanding of pain meds stating he only takes gabapentin. However, appears to be getting buprenorphine patch through pain mgmt and that the dose has increased. Records suggest episode of confusion at end of June - appears secondary to UTI. REVIEW OF SYSTEMS GENERAL:No weight loss, malaise or fevers. HEENT:Negative for frequent or significant headaches, No changes in hearing or vision, no nose bleeds or other nasal problems NECK:Negative for lumps, goiter, pain and significant neck swelling RESPIRATORY: Negative for cough, wheezing or shortness of breath. CARDIOVASCULAR: Negative for chest pain, leg swelling or palpitations. GASTROINTESTINAL: Negative for abdominal discomfort, blood in stools or black stools or change in bowel habits GENITOURINARY: Using catheter 3-4 times per day. MUSCULOSKELETAL: Leg cramps off and on when sleeping. NEUROLOGIC:See HPI. SKIN:Negative for lesions, rash, and itching. LAB/IMAGING: Those performed since patient's last visit have been reviewed. WBC (k/uL) Date Value 02/26/2022 7.56 RBC (m/uL) Date Value 02/26/2022 4.18 (L) Hemoglobin (g/dL) Date Value 02/26/2022 12.9 (L) Hematocrit (%) Date Value 02/26/2022 38.4 (L) MCV (fL) Date Value 02/26/2022 91.9 MCH (pg) Date Value 02/26/2022 30.9 MCHC (g/dL) Date Value 02/26/2022 33.6 RDW-CV (%) Date Value 02/26/2022 13.9 Platelet Count (k/uL) Date Value 02/26/2022 189 MPV (fL) Date Value 02/26/2022 9.0 Glucose (mg/dL) Date Value 03/12/2022 150 (H) BUN (mg/dL) Date Value 03/12/2022 22 Creatinine (mg/dL) Date Value 03/12/2022 0.96 Sodium (mmol/L) Date Value 03/12/2022 137 Potassium (mmol/L) Date Value 03/12/2022 4.9 Chloride (mmol/L) Date Value 03/12/2022 103 CO2 (mmol/L) Date Value 03/12/2022 23 Protein, Total (g/dL) Date Value 12/14/2021 6.2 (L) Albumin (g/dL) Date Value 12/14/2021 4.0 Calcium, Total (mg/dL) Date Value 03/12/2022 10.1 Alkaline Phosphatase (U/L) Date Value 12/14/2021 82 Bilirubin, Total (mg/dL) Date Value 12/14/2021 0.2 AST (U/L) Date Value 12/14/2021 18 ALT (U/L) Date Value 12/14/2021 19 MEDICATIONS: hydrOXYzine HCl (ATARAX) 25 mg tablet Take 1 tablet by mouth three times daily as needed. mirtazapine (REMERON) 30 mg tablet Take 1 tablet by mouth daily at bedtime. traZODone (DESYREL) 50 mg tablet Take 1 tablet by mouth daily at bedtime. cefADROxil (DURICEF) 500 mg capsule Take 1 capsule by mouth twice daily. aspirin, enteric coated (ECOTRIN LOW STRENGTH) 81 mg EC tablet Take 1 tablet by mouth once daily. buprenorphine 7.5 mcg/hour ptwk apply 1 patch to CLEAN, DRY, AND INTACT SKIN and REPLACE every 7 days finasteride (PROSCAR) 5 mg tablet Take by mouth. LORazepam (ATIVAN) 1 mg tablet Take by mouth. nitroglycerin sublingual (NITROQUICK) 0.4 mg SL tablet Q5M baclofen (LIORESAL) 5 mg tablet Take 1 tablet by mouth daily at bedtime. atenolol (TENORMIN) 25 mg tablet Take 0.5 tablets by mouth once daily. gabapentin (NEURONTIN) 300 mg capsule Take 1 capsule by mouth twice daily for 90 days. naproxen (NAPROSYN ORAL) Take 1 tablet by mouth once daily as needed. tamsulosin ER (FLOMAX) 0.4 mg Take 0.4 mg by mouth once daily. solifenacin 10 mg tablet Take 10 mg by mouth once daily. isosorbide mononitrate ER (IMDUR) 60 mg 24 hr tablet Take 60 mg by mouth once daily. alpha tocopheryl acetate (VITAMIN E) 400 unit capsule Take 400 Units by mouth once daily. HISTORIES PAST MEDICAL HISTORY Diagnosis Date A-fib (HCC) s/p colectomy 2016. 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 Consult to vasc Bladder stone 09/25/[address] Bagley BPH with obstruction/lower urinary tract symptoms BPH with obstruction/lower urinary tract symptoms Dr. Hendrix Chronic midline back pain 10/20/2017 Cog-wheel rigidity 06/18/2019 left upper extrmity, right upper extremity lead piping Cognitive impairment, mild, so stated 06/18/2019 Colon cancer (HCC) 06/30/[address] Greenberg, Had extension into the bladder wall and hd a partial cystectomy. Colostomy care ([facility]) 09/25/[address] ([facility]) 09/25/2017 Coronary artery disease involving solomon coronary artery 09/25/[address] Siddiqui [id number] Elevated hemoglobin A1c 07/30/2018 Essential hypertension 04/02/2011 Essential tremor 08/16/2019 Generalized weakness 06/18/2019 H/O heart artery stent 09/25/2017 4 stents 1993 History of DVT (deep vein thrombosis) 09/25/2017 1st clot end of Aug 2017, started on Eliquis 09/15/2017 needs to be on till 03/15/2018 S/P colectomy History of GA (myocardial infarction) 1993 History of prostate cancer seeing Dr. 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 Situational depression 08/17/2019 Resolved as of 02/2020 Tarsal tunnel syndrome of right side 06/23/2019 NCS 06/23/2019 Ventral hernia without obstruction or gangrene 09/24/2021 FAMILY HISTORY Problem Relation Age of Onset Prostate Cancer Father Cancer Father skin Heart Mother [place] late 50's Stroke Mother Diabetes Mother SOCIAL HISTORY Social History Tobacco Use Smoking status: Never Smokeless tobacco: Current Types: Chew Vaping Use Vaping Use: Never used Substance Use Topics Alcohol use: Yes Alcohol/week: 2.0 standard drinks Types: 2 Shots of liquor per week Drug use: No PHYSICAL EXAMINATION BP 112/70 Pulse 83 Temp 36.7 C (98.1 F) Resp 18 Wt 78.5 kg (173 lb) SpO2 96% BMI 27.32 kg/m GENERAL EXAM: General appearance: NAD, pleasant. HEENT: NC/AT, nasal congestion absent, no oral lesions, membranes moist. NECK: No masses, supple. Lungs: CTA bilaterally. No wheezes present. CV: RRR nl S1, S2, no murmurs. No carotid bruits. Abd: Soft, nontender, nondistended. Bowel sounds present. Extr: No cyanosis, clubbing or edema. No evidence of fasciculations. Extremity pulses palpable and normal. Skin: Cool to touch. No rash. NEUROLOGICAL EXAM: General: Awake, alert, oriented x3 (person,place,time), speech fluent, no dysarthria; comprehension, naming, repetition intact. Serial 7s [id number]. Similarity of objects: 2/2. Clock drawing intact. CN: PERRL, fundi appear normal including no evidence of papilledema, EOMI and without nystagmus, VFF to confrontation, facial sensation and strength are normal and symmetric, hearing is intact to finger rub bilaterally, palate and tongue movements are intact and symmetric. SCM and trapezius strength normal. Motor: Normal tone, bulk and strength (5/5) bilaterally (throughout extremities x4). Str leg raise negative janell. Coordination: FNF, KAREN, HTS intact. No tremors. Sensation: Light touch intact throughout. No evidence of neglect. Gait: Stable with normal stride and arm swing but using cane. Assessment and Plan: ASSESSMENT/PLAN: 1. Right leg pain - ICD9: 729.5, ICD10: M79.604 (primary diagnosis) 2. Lumbar pain - ICD9: 724.2, ICD10: M54.50 3. Spinal stenosis, lumbar region with neurogenic claudication - ICD9: 724.03, ICD10: M48.062 Patient with no change in complaints or symptoms since last seen. Never completed workup. Again, recommending MRI of L spine as above. 4. Frequent nocturnal awakening - ICD9: 780.59, ICD10: G47.00 5. Sleep apnea-like behavior - ICD9: 780.59, ICD10: G47.39 6. Insomnia, unspecified type - ICD9: 780.52, ICD10: G47.00 Pain likely contributing to complaints but still concern for SARIKA as well as PLMD as noted above. Again, recommending PSG in lab. 7. Cognitive impairment - ICD9: 294.9, ICD10: R41.89 Recently likely exacerbated by UTI. Modified MOCA as above. Metabolic workup unremarkable. CT brain reported as no significant findings as above. Still feel MRI brain appropriate to further evaluate as above. Pt will be assisted in ordering and scheduling testing. Pt to follow up after tests complete. Mikhail Liu MD I spent a total of 30 minutes on the date of the service which included preparing to see the patient, [id number] patient care, completing clinical documentation, obtaining and/or reviewing separately obtained history, performing a medically appropriate examination, counseling and educating the patient/family/caregiver, independently interpreting results (not separately reported), and communicating results to the patient/family/caregiver. documented in this encounter [facility] 07-29-2022 Miscellaneous Notes Patient has been identified by name and date of : Yes Requested Prescriptions Pending Prescriptions Disp Refills hydrOXYzine HCl (ATARAX) 25 mg tablet 60 tablet 1 Sig: Take 1 tablet by mouth three times daily as needed. mirtazapine (REMERON) 30 mg tablet 90 tablet 1 Sig: Take 1 tablet by mouth daily at bedtime. traZODone (DESYREL) 50 mg tablet 90 tablet 1 Sig: Take 1 tablet by mouth daily at bedtime. RX INSTRUCTIONS: Patient aware RX will be sent to pharmacy. No need to notify patient. Sylvia Rossi MA [facility]; 04/2022 Nov: 09/2022 Last refill: 01/2022 Patient has been identified by name and date of : Yes Requested Prescriptions Pending Prescriptions Disp Refills hydrOXYzine HCl (ATARAX) 25 mg tablet 60 tablet 1 Sig: Take 1 tablet by mouth three times daily as needed. mirtazapine (REMERON) 30 mg tablet 90 tablet 1 Sig: Take 1 tablet by mouth daily at bedtime. traZODone (DESYREL) 50 mg tablet 90 tablet 1 Sig: Take 1 tablet by mouth daily at bedtime. RX INSTRUCTIONS: Please send by tomorrow. Patient aware RX will be sent to pharmacy. No need to notify patient. Beverley Duff Pss documented in this encounter [facility] 07-24-2022 History of Present illness Narrative Chief Complaint Patient presents with: Pain: ER follow up on - fall on left shoulder/elbow HPI Sam Hagen is a 82 year old male who presents here today for ER Follow Up.. Patient also mentioned right hip pain and issues with urinating. Patient presented to [facility] ER on 07/15/2022 after having a mechanical fall at home the night prior off his recliner. Not sure if he hit his head at all. Patient had an abrasion wound to the left upper arm. Patient was A and oriented x3 in ER. Patient Tdap was updated. Patient had a CT of the brain and neck with no abnormal findings. Patient denies any pain in his shoulders. He has a dressing on the left upper arm that has not been changed. Right hip has been hurting but this has been an ongoing issue prior to the fall and no worse. He saw [facility] back in November and they had discussed surgery and patient had declined at that time. Other concern is that in the past week he has had polyuria, urgency with dysuria. No gross hematuria. He would go pee and then feel shortly afterwards he would need to go again. No fevers or chills. Has had some sweats and then some chills. No nausea, vomiting or flank pain. Past medical history, appointments, medications, allergies reviewed. Previous Medical History PAST MEDICAL HISTORY Diagnosis Date A-fib (HCC) s/p colectomy 2016. 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 Consult to vasc Bladder stone 09/25/[address] Bagley BPH with obstruction/lower urinary tract symptoms BPH with obstruction/lower urinary tract symptoms Dr. Hendrix Chronic midline back pain 10/20/2017 Cog-wheel rigidity 06/18/2019 left upper extrmity, right upper extremity lead piping Cognitive impairment, mild, so stated 06/18/2019 Colon cancer ([facility]) 06/30/[address] Greenberg, Had extension into the bladder wall and hd a partial cystectomy. Colostomy care ([facility]) 09/25/[address] ([facility]) 09/25/2017 Coronary artery disease involving solomon coronary artery 09/25/[address] Siddiqui [id number] Elevated hemoglobin A1c 07/30/2018 Essential hypertension 04/02/2011 Essential tremor 08/16/2019 Generalized weakness 06/18/2019 H/O heart artery stent 09/25/2017 4 stents 1993 History of DVT (deep vein thrombosis) 09/25/2017 1st clot end of Aug 2017, started on Eliquis 09/15/2017 needs to be on till 03/15/2018 S/P colectomy History of GA (myocardial infarction) 1993 History of prostate cancer seeing Dr. 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 Situational depression 08/17/2019 Resolved as of 02/2020 Tarsal tunnel syndrome of right side 06/23/2019 NCS 06/23/2019 Ventral hernia without obstruction or gangrene 09/24/2021 Previous Surgical History PAST SURGICAL HISTORY Procedure Laterality Date ANGIOPLASTY 11/13/1993 CARPAL TUNNEL Bilateral CATARACT EXTRACTION HX Bilateral right 2016 and left 2018 CYSTOSCOPY AND TREATMENT botox injection ECHOCARDIOGRAM 07/05/2017 HEART CATHETERIZATION 02/24/2002 LAPAROSCOPY SURG RPR INITIAL INGUINAL HERNIA 01/11/09 PAST SURGICAL HISTORY OF 07/03/2017 COLECTOMY ABDOMINAL W/O PROCTECTOMY W/ ILEOSTOMY/ILEOPROCTOSTOMY, TOTAL RECONSTRUCTION ROTATOR CUFF AVULSION CHRONIC left RPR INGUN HERNIA SLIDING ANY AGE LIH RPR UMBILICAL HRNA 5 YRS/> REDUCIBLE 01/11/09 SIGMOIDOSCOPY 07/02/2017 and 07/2019 moderately differentiated adenocarcinoma-sigmoid colon mass Family History FAMILY HISTORY Problem Relation Age of Onset Prostate Cancer Father Cancer Father skin Heart Mother [place] late 50's Stroke Mother Diabetes Mother Patient Allergies ALLERGIES No Known Allergies Current Medications Current Outpatient Medications on File Prior to Visit Medication Sig hydrOXYzine HCl (ATARAX) 25 mg tablet Take 1 tablet by mouth three times daily as needed. aspirin, enteric coated (ECOTRIN LOW STRENGTH) 81 mg EC tablet Take 1 tablet by mouth once daily. buprenorphine 7.5 mcg/hour ptwk apply 1 patch to CLEAN, DRY, AND INTACT SKIN and REPLACE every 7 days finasteride (PROSCAR) 5 mg tablet Take by mouth. LORazepam (ATIVAN) 1 mg tablet Take by mouth. nitroglycerin sublingual (NITROQUICK) 0.4 mg SL tablet Q5M baclofen (LIORESAL) 5 mg tablet Take 1 tablet by mouth daily at bedtime. mirtazapine (REMERON) 30 mg tablet Take 1 tablet by mouth daily at bedtime. traZODone (DESYREL) 50 mg tablet Take 1 tablet by mouth daily at bedtime. atenolol (TENORMIN) 25 mg tablet Take 0.5 tablets by mouth once daily. gabapentin (NEURONTIN) 300 mg capsule Take 1 capsule by mouth twice daily for 90 days. naproxen (NAPROSYN ORAL) Take 1 tablet by mouth once daily as needed. tamsulosin ER (FLOMAX) 0.4 mg Take 0.4 mg by mouth once daily. solifenacin 10 mg tablet Take 10 mg by mouth once daily. isosorbide mononitrate ER (IMDUR) 60 mg 24 hr tablet Take 60 mg by mouth once daily. alpha tocopheryl acetate (VITAMIN E) 400 unit capsule Take 400 Units by mouth once daily. No current facility-administered medications on file prior to visit. Social History Social History Tobacco Use Smoking status: Never Smokeless tobacco: Current Types: Chew Vaping Use Vaping Use: Never used Substance Use Topics Alcohol use: Yes Alcohol/week: 2.0 standard drinks Types: 2 Shots of liquor per week Drug use: No Review of Symptoms REVIEW OF SYSTEMS See HPI EXAM: BP 130/72 (BP Site: Right Arm, BP Position: Sitting, BP Cuff Size: Regular Adult) Pulse 72 Temp 37.5 C (99.5 F) (Tympanic) Resp 18 Wt 77.6 kg (171 lb) BMI 27.00 kg/m General Appearance: Well appearing, alert, in no acute distress, well-hydrated, well nourished.. Skin: with bandages taken off the left upper extremity he has a skin abrasion just above the lateral elbow. Good viable tissue with no signs of infection. . Lungs: Lungs clear to auscultation. No wheezing, rhonchi, rales.. Heart: RRR without murmur, gallop, or rubs. No ectopy. Abdomen: Normal abdominal exam, Abdomen soft, non-tender. Bowel sounds normal. No masses, organomegaly. No suprapubic pain. Back: no CVA tenderness. Health Maintenance List COVID-19 VACCINE(4 - Booster for Pfizer series) due on 09/12/2021 LDL CHOLESTEROL due on 03/12/2023 DIABETES SCREEN due on 03/12/2025 DTAP,TDAP,TD(4 - Td or Tdap) due on 02/03/2032 INFLUENZA Completed ADVANCE DIRECTIVE DISCUSSION Completed SHINGRIX VACCINE Completed PNEUMOCOCCAL: 65+ Completed Data reviewed [facility] report from 07/15/2022 Component Latest Ref Rng & Units 07/24/2022 GLUCOSE UA (POCT) Negative mg/dL Negative BILIRUBIN UA (POCT) Negative Negative KETONE UA (POCT) Negative mg/dL Negative SPECIFIC GRAVITY UA (POCT) 1.005 - 1.030 1.025 HEMOGLOBIN/BLOOD UA (POCT) Negative Large (A) PH UA (POCT) 4.5 - 8.0 5.5 PROTEIN UA (POCT) Negative mg/dL Negative UROBILINOGEN UA (POCT) Normal E.U./dL 0.2 NITRITE UA (POCT) Negative Negative LEUKOCYTES UA (POCT) Negative Small (A) COLOR UA (POCT) Yellow CLARITY UA (POCT) Clear A/P ASSESSMENT/PLAN: 1. Skin abrasion - ICD9: 919.0, ICD10: T14.8XXA (primary diagnosis) - area looks good. Patient instructed on care. - referral to [place] wound care. 2. Dysuria - ICD9: 788.1, ICD10: R30.0 acute - UA positive for mike esterase and hematuria - Patient education for prevention given 3. Acute cystitis with hematuria - ICD9: 595.0, ICD10: N30.01 - as above - URINALYSIS, WITH MICROSCOPIC - check culture - treat with antibiotic as below 4. Arthritis of right hip - ICD9: 716.95, ICD10: M16.11 - CONSULT TO ORTHOPAEDICS: [facility] 5. Arthritis, lumbar spine - ICD9: 721.3, ICD10: M47.816 - CONSULT TO ORTHOPAEDICS Requested Prescriptions Signed Prescriptions Disp Refills cefADROxil (DURICEF) 500 mg capsule 20 capsule 0 Sig: Take 1 capsule by mouth twice daily. Vishal Jones MD documented in this encounter [facility] 07-15-2022 History of Present illness Narrative Patient came in for wound on left arm. Patient says he fell last night. Patient says he feels pretty unsteady on his feet and very disoriented. Patient says he got lost on his way here. Patient is having confusing statements saying 1 thing and then saying another thing. Patient's urine was checked is negative for [facility]TI[facility]. documented in this encounter [facility] 06-20-2022 History of Present illness Narrative Patient is here for IVAD port flush/blood draw per [facility] protocol. IVAD is located in right upper chest. Site cleansed with Chloraprep IVAD accessed with a #20 gauge 3/4 non-coring Gripper needle Flush with 5cc's Normal Saline. Blood Return: Good. 10 cc's blood aspirated and discarded. Blood drawn for Creatinine. Flushed with: 20 ml Normal Saline and 5 ml Heparin Lock Flush. Non-coring needle removed. Paper tape applied to puncture site. Site negative for redness, edema or tenderness. Patient tolerated procedure well. documented in this encounter [facility] 06-06-2022 Miscellaneous Notes The following approved medication requests have been transmitted electronically. Requested Prescriptions Signed Prescriptions Disp Refills hydrOXYzine HCl (ATARAX) 25 mg tablet 60 tablet 1 Sig: Take 1 tablet by mouth three times daily as needed. Authorizing Provider: VISHAL JONES MD Patient has been identified by name and date of : Yes Last office visit in this department: 05/15/2022 RX INSTRUCTIONS: Patient aware RX will be sent to pharmacy. No need to notify patient. Patient phones requesting refills as follows: Requested Prescriptions No prescriptions requested or ordered in this encounter Please review and advise. Leonid Ward documented in this encounter [facility] 05-15-2022 Instructions Vishal Jones MD - 05/15/2022 10:34 AM EDT Sam please contact your orthopedic spine providers office and let them know you saw vascular (Dr. Kaye Oneal with [facility] up on [facility]) on 03/26/2022. documented in this encounter [facility] 05-15-2022 History of Present illness Narrative Chief Complaint Patient presents with: Recheck HPI Sam Hagen is a 82 year old male who presents here today for 2 month follow up and recheck weakness. Patient also mentioned having continued balance issues and some falls. Patient mentioned that he was scheduled for surgery and that was cancelled due to clogged arteries but has heard nothing since. Patient did see Vascular back in March however looking at the office note vascular did not appear to be aware that he was being considered for lumbar laminectomy but was placed on hold till seen by vascular regarding the narrowings in his carotids. In her office note the plan was to continue medical management and monitor. Patient has f/u appt in Sep 2022. Patient has continued wit PHYSICAL THERAPY. He has an appt with Neuro in June. Patient continues to have issues with balance and lower extremity weakness. A friend of his (Melissa) is here with him today and tries to make it to most of his appts. However, was not able to be at the vascular appt. Patient also saw general surgery for f/u for his colon cancer. He was stable and no changes made. Patient had a fall since he was last in. He got up and got dizzy and fell forward catching the right elbow on the door frame and getting a scratch. He feel onto his knees. No head trauma. Past medical history, appointments, medications, allergies reviewed. Previous Medical History PAST MEDICAL HISTORY Diagnosis Date A-fib ([facility]) s/p colectomy 2016. 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 Bagley BPH with obstruction/lower urinary tract symptoms BPH with obstruction/lower urinary tract symptoms Dr. Hendrix Chronic midline back pain 10/20/2017 Cog-wheel rigidity 06/18/2019 left upper extrmity, right upper extremity lead piping Cognitive impairment, mild, so stated 06/18/2019 Colon cancer ([facility]) 06/30/[address] Greenberg, Had extension into the bladder wall and hd a partial cystectomy. Colostomy care ([facility]) 09/25/[address] ([facility]) 09/25/2017 Coronary artery disease involving solomon coronary artery 09/25/[address] Siddiqui [id number] Elevated hemoglobin A1c 07/30/2018 Essential hypertension 04/02/2011 Essential tremor 08/16/2019 Generalized weakness 06/18/2019 H/O heart artery stent 09/25/2017 4 stents 1994 History of DVT (deep vein thrombosis) 09/25/2017 1st clot end of Aug 2017, started on Eliquis 09/15/2017 needs to be on till 03/15/2018 S/P colectomy History of GA (myocardial infarction) 1993 History of prostate cancer seeing Dr. 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 Situational depression 08/17/2019 Resolved as of 02/2020 Tarsal tunnel syndrome of right side 06/23/2019 NCS 06/23/2019 Previous Surgical History PAST SURGICAL HISTORY Procedure Laterality Date ANGIOPLASTY 11/13/1993 CARPAL TUNNEL Bilateral CATARACT EXTRACTION HX Bilateral right 2016 and left 2018 CYSTOSCOPY AND TREATMENT botox injection ECHOCARDIOGRAM 07/05/2017 HEART CATHETERIZATION 02/24/2002 LAPAROSCOPY SURG RPR INITIAL INGUINAL HERNIA 01/11/09 PAST SURGICAL HISTORY OF 07/03/2017 COLECTOMY ABDOMINAL W/O PROCTECTOMY W/ ILEOSTOMY/ILEOPROCTOSTOMY, TOTAL RECONSTRUCTION ROTATOR CUFF AVULSION CHRONIC left RPR INGUN HERNIA SLIDING ANY AGE LIH RPR UMBILICAL HRNA 5 YRS/> REDUCIBLE 01/11/09 SIGMOIDOSCOPY 07/02/2017 and 07/2019 moderately differentiated adenocarcinoma-sigmoid colon mass Family History FAMILY HISTORY Problem Relation Age of Onset Prostate Cancer Father Cancer Father skin Heart Mother [place] late 50's Stroke Mother Diabetes Mother Patient Allergies ALLERGIES No Known Allergies Current Medications Current Outpatient Medications on File Prior to Visit Medication Sig aspirin, enteric coated (ECOTRIN LOW STRENGTH) 81 mg EC tablet Take 1 tablet by mouth once daily. buprenorphine 7.5 mcg/hour ptwk apply 1 patch to CLEAN, DRY, AND INTACT SKIN and REPLACE every 7 days finasteride (PROSCAR) 5 mg tablet Take by mouth. LORazepam (ATIVAN) 1 mg tablet Take by mouth. nitroglycerin sublingual (NITROQUICK) 0.4 mg SL tablet Q5M hydrOXYzine HCl (ATARAX) 25 mg tablet Take 1 tablet by mouth three times daily as needed. baclofen (LIORESAL) 5 mg tablet Take 1 tablet by mouth daily at bedtime. mirtazapine (REMERON) 30 mg tablet Take 1 tablet by mouth daily at bedtime. traZODone (DESYREL) 50 mg tablet Take 1 tablet by mouth daily at bedtime. atenolol (TENORMIN) 25 mg tablet Take 0.5 tablets by mouth once daily. gabapentin (NEURONTIN) 300 mg capsule Take 1 capsule by mouth twice daily for 90 days. naproxen (NAPROSYN ORAL) Take 1 tablet by mouth once daily as needed. tamsulosin ER (FLOMAX) 0.4 mg Take 0.4 mg by mouth once daily. solifenacin 10 mg tablet Take 10 mg by mouth once daily. isosorbide mononitrate ER (IMDUR) 60 mg 24 hr tablet Take 60 mg by mouth once daily. alpha tocopheryl acetate (VITAMIN E) 400 unit capsule Take 400 Units by mouth once daily. No current facility-administered medications on file prior to visit. Social History Social History Tobacco Use Smoking status: Never Smokeless tobacco: Current Types: Chew Vaping Use Vaping Use: Never used Substance Use Topics Alcohol use: Yes Alcohol/week: 2.0 standard drinks Types: 2 Shots of liquor per week Drug use: No Review of Symptoms REVIEW OF SYSTEMS See HPI EXAM: BP 120/70 (BP Site: Left Arm, BP Position: Sitting, BP Cuff Size: Regular Adult) Pulse 68 Resp 14 Wt 78 kg (172 lb) BMI 27.16 kg/m Last 8 Encounter BP Readings: Date: BP: 05/15/2022 120/70 03/26/2022 132/71 03/25/2022 108/60 03/21/2022 132/70 03/14/2022 96/56[bp ken repeat[ 03/12/2022 120/60 02/15/2022 140/66 01/30/2022 90/50 General Appearance: Well appearing, alert, in no acute distress, well-hydrated, well nourished.. Neck: Supple, no adenopathy; thyroid symmetric, normal size, no bruits. Lungs: Lungs clear to auscultation. No wheezing, rhonchi, rales.. Heart: RRR without murmur, gallop, or rubs. No ectopy. Abdomen: Normal abdominal exam, Abdomen soft, non-tender. Bowel sounds normal. No masses, organomegaly. Extremities: No deformities, edema, skin discoloration, . Good capillary refill. . Pulses: normal in carotids and posterior tibial arteries. Health Maintenance List COVID-19 VACCINE(4 - Booster for Pfizer series) due on 11/15/2021 INFLUENZA(1) due on 05/16/2022 LDL CHOLESTEROL due on 03/12/2023 DIABETES SCREEN due on 03/12/2025 DTAP,TDAP,TD(4 - Td or Tdap) due on 02/03/2032 ADVANCE DIRECTIVE DISCUSSION Completed SHINGRIX VACCINE Completed PNEUMOCOCCAL: 65+ Completed Data reviewed In office Orthos Laying BP 170/96 pulse 64 Sitting BP 160/80 pulse 64. Slightly dizzy Standing BP 150/100 pulse 60 no dizziness A/P ASSESSMENT/PLAN: 1. Essential hypertension - ICD9: 401.9, ICD10: I10 (primary diagnosis) - good control. Patient had pain with getting up on table to do Orthos. - not orthostatic positive - Continue current medication(s) - Recommended regular aerobic exercise. - Recommend home blood pressure monitoring, to bring results in on next visit - Goal of BP <130/80 2. Bilateral carotid artery stenosis - ICD9: 433.10, 433.30, ICD10: I65.23 - kori reach out to Vascular to see if we can get input regurding patient proceeding with low back surgery 3. Chronic midline low back pain with right-sided sciatica - ICD9: 724.2, 724.3, 338.29, ICD10: M54.41, G89.29 - seeing pain management and ortho 4. Falls frequently - ICD9: V15.88, ICD10: R29.6 - feels this is related to his low back disease and aging issues. Patient to also keep appt with Neuro 5. Generalized weakness - ICD9: 780.79, ICD10: R53.1 - as per #4 F/u 4 months routine I spent a total of 30 minutes on the date of the service which included preparing to see the patient, [id number] patient care, completing clinical documentation, performing a medically appropriate examination, counseling and educating the patient/family/caregiver and ordering medications, tests, or procedures. Vishal Jones MD documented in this encounter [facility] 05-06-2022 History of Present illness Narrative Episode Visit Count: 6 Therapist That Will Oversee The Plan Of Care: Chase Westbrook Start of Care Date: 03/25/22 Onset Date: 03/25/21 Plan of Care Certification Date: 04/30/22 Next Certification Due Date: 06/04/22 Patient Identified by Name and Date of : Yes REHABILITATION AND SPORTS THERAPY PHYSICAL THERAPY TREATMENT NOTE ASSESSMENT: Sam Hagen tolerated the session with no issues. He demonstrated difficulty with holding static positions. The patient will continue to benefit from ongoing skilled physical therapy to progress toward set goals. PLAN FOR NEXT VISIT: Progress balance exercises as tolerated. Lateral stepping over dynadisk SUBJECTIVE: Patient Reason for Visit: Pt states that he has not been doing his exercises as frequently as he knows he should. The hip is doing a little better Pain: Pain Pain Location: Hip - Right OBJECTIVE MEASURES WITH LEVEL OF FUNCTION: TREATMENT: Neuromuscular Re-Education: 1: NBOS eyes open 2 x 30 sec 2: NBOS eyes closed 2 x 30 sec 3: Standing on Air-ex pad NBOS x 60 seconds 4: Tandem walking 8 feet x 4 5: Standing stance in parallel bars 2 x 30 sec 6: Standing on tilt board F/B taps x 30 7: Standing centered on tilt board 3 x 30 seconds Skilled Intervention: Skilled judgment used to assess appropriate program for balance and coordination activity. Ensured patient safety with use of gait belt and CGA Billing Neuromuscular Re-Education Treatment Minutes: 40 Total Treatment Time Minutes (timed/untimed): 40 Chase Westbrook PT documented in this encounter [facility] 04-30-2022 History of Present illness Narrative Episode Visit Count: 5 Therapist That Will Oversee The Plan Of Care: Chase Westbrook Start of Care Date: 03/25/22 Onset Date: 03/25/21 Plan of Care Certification Date: 04/30/22 Next Certification Due Date: 06/04/22 Patient Identified by Name and Date of : Yes REHABILITATION AND SPORTS THERAPY PHYSICAL THERAPY PROGRESS REPORT PLAN OF CARE UPDATE: Assessment: Sam Hagen demonstrates improvements in LE functional strength and level of independence with the HEP. He has progressed toward goals. Patient continues to present with impairments in balance, gait, overall function, and strength that interfere with walking;standing . Current prognosis is Good due to: current objective clinical presentation . He will benefit from continued skilled therapy services to meet the updated goals for this plan of care as noted below. Goals updated 04/30/2022 Goals for Episode of Care: created on 03/25/22 through 05/20/22 Patient will report no falls. - Not Met (fall last week reported) Improve score on 30 Second Chair Stand to 10 repetitions to reflect decreased fall risk. - MET Increase strength of BLE to 5/5 in order to improved ease and safety of transfers and pivoting. - Progressing, will continue Pt will demo 30 seconds NBOS with eyes open showing improved static Balance - Progressing, will continue Pt will demo NBOS for 30 sec with eyes closed showing improved static Balance - Not Met, will continue Patient Goals: Pt wants to work on his strength and balance Patient Goals: Pt wants to work on his strength and balance Planned Interventions, Frequency, and Duration: 1x/week, 4 weeks Total Number of Visits Planned: 4 Patient to be seen for Therapeutic exercise (59152);Neuromuscular re-education (46361);Manual therapy (58272);Therapeutic activities (37533);Self-penitentiary management (48206);Patient/Family/Caregiver Education;Gait Training (38633) PLAN FOR NEXT VISIT: Progress LE strengthening. Shiv, elisha, SLR SUBJECTIVE: Patient Reason for Visit: Pt states the back is a little better but still has hip pain. Pt states balance and strength seems about the same. The balance may be worse. Pt did fall last week and cut the elbow. Lost his balance. Patient Goals: Pt wants to work on his strength and balance Functional Limitations: walking;standing Prior Level of Function: Independent without limitations Intake Information: Prescription present Pain: Pain Pain Level: ( hurts ) Pain Location: Hip - Right Post Treatment Pain Post Treatment Pain Level: ( Hurts ) Post Treatment Pain Location: Hip - Right PROMIS Scales Higher is Better 02/02/2020 GH Physical - Score 37.4 GH Physical - Percentile 10 % GH Mental - Score 33.8 GH Mental - Percentile 5 % T-scores: mean of general population = 50. 5 points is clinically meaningfully difference Percentiles provide an indication of how the patient's score ranks in relation to the general population. Higher percentile rankings indicate better function/quality of life. 50th percentile is the average of the general population and indicates half of respondents had a worse score. T-scores: mean of general population = 50. 5 points is clinically meaningfully difference Percentiles provide an indication of how the patient's score ranks in relation to the general population. Higher percentile rankings indicate better function/quality of life. 50th percentile is the average of the general population and indicates half of respondents had a worse score. OBJECTIVE MEASURES WITH LEVEL OF FUNCTION: LE Strength R Hip Flexion (L2): 4/5 R Knee Extension (L3): 4+/5 R Knee Flexion: 5/5 R Ankle Dorsiflexion (L4): 5/5 L Hip Flexion (L2): 4/5 L Hip External Rotation: 3+/5 L Knee Extension (L3): 4+/5 L Knee Flexion: 4/5 L Ankle Dorsiflexion (L4): 4+/5 Gait Gait: Modified Independent Gait Distance (feet): 150 Gait Device: Cane Gait Deviations: General Deviations General Deviations/Observations: Arm swing decreased;Flexed trunk posture;Difficulty changing direction/turning Functional Performance Test Results 30 Second Chair Stand Test: 10 reps 4 Stage Balance Test Narrow base of support (sec): 16 sec (eyes open and 5 sec eyes closed) TREATMENT: Therapeutic Exercise: 1: All objective measures taken this session 2: Gluteal squeezes x 8 with strap pulling at shins 3: SLR x 10 each side in supine Skilled Intervention: Patient was educated in proper exercise technique and purpose for exercises. Provided written instruction for home exercise program to facilitate proper performance and compliance. Correct performance of therapeutic exercises was facilitated with verbal and visual cuing. Neuromuscular Re-Education: 1: Standing NBOS eyes open 4 x 30 sec 2: Standing NBOS eyes closed 3 x 30 seconds 3: Standing NBOS head turns x 10 4: Standing marches x 10 Skilled Intervention: Ensured patient safety with use of gait belt and CGA Billing Therapeutic Exercise Treatment Minutes: 26 Neuromuscular Re-Education Treatment Minutes: 15 Total Treatment Time Minutes (timed/untimed): 41 Chase Westbrook PT documented in this encounter [facility] 04-18-2022 History of Present illness Narrative Episode Visit Count: 4 Therapist That Will Oversee The Plan Of Care: Chase Westbrook Start of Care Date: 03/25/22 Onset Date: 03/25/21 Plan of Care Certification Date: 03/25/22 Next Certification Due Date: 04/29/22 Patient Identified by Name and Date of : Yes REHABILITATION AND SPORTS THERAPY PHYSICAL THERAPY TREATMENT NOTE ASSESSMENT: Sam Hagen tolerated the session with expected muscle soreness. He demonstrated slight LOB required min A by this PT to correct. The patient will continue to benefit from ongoing skilled physical therapy to progress toward set goals. PLAN FOR NEXT VISIT: POC update SUBJECTIVE: Patient Reason for Visit: Pt got shots in the back yesterday which is making the hip better. Pt states the balance is about the same. Pain: Pain Pain Level: 1 Pain Location: Hip - Right Post Treatment Pain Post Treatment Pain Level: (Not rated) Post Treatment Pain Location: Hip - Right OBJECTIVE MEASURES WITH LEVEL OF FUNCTION: TREATMENT: Therapeutic Exercise: 1: Seated LAQ 4# x 12 reps 2: Seated LAQ 7# x 15 reps (each leg) 3: Seated hip flexion 3# 3 x 10 each side 4: STS x 15 reps (Creates some tingling into the RLE) 5: SKTC x 15 reps (each side) Skilled Intervention: Patient was educated in proper exercise technique and purpose for exercises. Correct performance of therapeutic exercises was facilitated with verbal and visual cuing. Neuromuscular Re-Education: 1: NBOS eyes open 2 x 60 sec 2: NBOS eyes closed 2 x 60 seconds 3: NBOS with head turns x 10 Skilled Intervention: Insured patient safety with use of gait belt and CGA as needed. Billing Therapeutic Exercise Treatment Minutes: 30 Neuromuscular Re-Education Treatment Minutes: 8 Total Treatment Time Minutes (timed/untimed): 38 Chase Westbrook PT documented in this encounter [facility] 03-28-2022 History of Present illness Narrative Episode Visit Count: 2 Therapist That Will Oversee The Plan Of Care: Chase Westbrook Start of Care Date: 03/25/22 Onset Date: 03/25/21 Plan of Care Certification Date: 03/25/22 Next Certification Due Date: 04/29/22 Patient Identified by Name and Date of : Yes REHABILITATION AND SPORTS THERAPY PHYSICAL THERAPY TREATMENT NOTE ASSESSMENT: Sam Hagen tolerated the session with no issues. He demonstrated decreased radicular pain with SKTC exercise. The patient will continue to benefit from ongoing skilled physical therapy to progress toward set goals. PLAN FOR NEXT VISIT: Cotninue with balance training. Use Air-ex pad SUBJECTIVE: Patient Reason for Visit: Pt states that he did the exercise one day since the last session. Pain: Pain Pain Level: 6 Pain Location: Leg - Left Post Treatment Pain Post Treatment Pain Level: 3 Post Treatment Pain Location: Leg - Left OBJECTIVE MEASURES WITH LEVEL OF FUNCTION: Increased flexion in L spine with increased SKTC reps TREATMENT: Therapeutic Exercise: 1: Supine SLR x 10 2: SKTC 3 x 10 (RLE) 3: SKTC 30 sec holds 2 x 30 sec 4: STS x 20 reps then 15 reps Skilled Intervention: Patient was educated in proper exercise technique and purpose for exercises. Correct performance of therapeutic exercises was facilitated with verbal and visual cuing. Neuromuscular Re-Education: 1: NBOS eyes open x 90 sec 2: Standing NBOS head turns x 10 3: Standing NBOS eyes closed x 60 sec (requires one LOB correction min A) Skilled Intervention: Insured patient safety with use of gait belt and CGA Billing Therapeutic Exercise Treatment Minutes: 28 Neuromuscular Re-Education Treatment Minutes: 10 Total Treatment Time Minutes (timed/untimed): 38 Chase Westbrook PT documented in this encounter [facility] 03-26-2022 History of Present illness Narrative Images from the original note were not included. [facility] DEPARTMENT OF VASCULAR SURGERY OUTPATIENT VISIT DATE March 26, 2022 OUTPATIENT VISIT TYPE CONSULTATION SERVICE DATE: 03/26/2022 SERVICE TIME: 8:43 AM PRIMARY CARE PHYSICIAN: Vishal Jones MD REFERRING PROVIDER: Sharda Carl [address] [facility] [id number] Consult requested for an opinion regarding the evaluation and treatment of the above. My final impression and recommendations will be communicated back to the requesting physician by way of the shared medical record or letter via [place] mail. CHIEF COMPLAINT: Carotid artery stenosis HISTORY OF PRESENT ILLNESS: Vascular consultation at the request of Dr. Sharda Carl. A copy of this consultation note will be provided to the requesting physician by way of shared Medical record or letter to requesting physician via US mail. Mr. Hagen is a 82 year old male who is seen today for carotid artery stenosis.He reports a history of being lightheaded when he first stands in the morning or with position changes. Denies history of stroke, focal neurologic deficit, or amorous fugax. He is left handed PAST MEDICAL HISTORY Diagnosis Date A-fib ([facility]) s/p colectomy 2016. 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 Bagley BPH with obstruction/lower urinary tract symptoms BPH with obstruction/lower urinary tract symptoms Dr. Hendrix Chronic midline back pain 10/20/2017 Cog-wheel rigidity 06/18/2019 left upper extrmity, right upper extremity lead piping Cognitive impairment, mild, so stated 06/18/2019 Colon cancer ([facility]) 06/30/[address] Greenberg, Had extension into the bladder wall and hd a partial cystectomy. Colostomy care ([facility]) 09/25/[address] ([facility]) 09/25/2017 Coronary artery disease involving solomon coronary artery 09/25/[address] Siddiqui [id number] Elevated hemoglobin A1c 07/30/2018 Essential hypertension 04/02/2011 Essential tremor 08/16/2019 Generalized weakness 06/18/2019 H/O heart artery stent 09/25/2017 4 stents 1993 History of DVT (deep vein thrombosis) 09/25/2017 1st clot end of Aug 2017, started on Eliquis 09/15/2017 needs to be on till 03/15/2018 S/P colectomy History of GA (myocardial infarction) 1993 History of prostate cancer seeing Dr. 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 Situational depression 08/17/2019 Resolved as of 02/2020 Tarsal tunnel syndrome of right side 06/23/2019 NCS 06/23/2019 PAST SURGICAL HISTORY Procedure Laterality Date ANGIOPLASTY 11/13/1993 CARPAL TUNNEL Bilateral CATARACT EXTRACTION HX Bilateral right 2016 and left 2018 CYSTOSCOPY AND TREATMENT botox injection ECHOCARDIOGRAM 07/05/2017 HEART CATHETERIZATION 02/24/2002 LAPAROSCOPY SURG RPR INITIAL INGUINAL HERNIA 01/11/09 PAST SURGICAL HISTORY OF 07/03/2017 COLECTOMY ABDOMINAL W/O PROCTECTOMY W/ ILEOSTOMY/ILEOPROCTOSTOMY, TOTAL RECONSTRUCTION ROTATOR CUFF AVULSION CHRONIC left RPR INGUN HERNIA SLIDING ANY AGE LIH RPR UMBILICAL HRNA 5 YRS/> REDUCIBLE 01/11/09 SIGMOIDOSCOPY 07/02/2017 and 07/2019 moderately differentiated adenocarcinoma-sigmoid colon mass SOCIAL HISTORY: Social History Tobacco Use Smoking status: Never Smoker Smokeless tobacco: Current User Types: Chew Vaping Use Vaping Use: Never used Substance Use Topics Alcohol use: Yes Alcohol/week: 2.0 standard drinks Types: 2 Shots of liquor per week Drug use: No FAMILY HISTORY Problem Relation Age of Onset Prostate Cancer Father Cancer Father skin Heart Mother [place] late 50's Stroke Mother Diabetes Mother MEDICATIONS: buprenorphine 7.5 mcg/hour ptwk apply 1 patch to CLEAN, DRY, AND INTACT SKIN and REPLACE every 7 days finasteride (PROSCAR) 5 mg tablet Take by mouth. LORazepam (ATIVAN) 1 mg tablet Take by mouth. nitroglycerin sublingual (NITROQUICK) 0.4 mg SL tablet Q5M hydrOXYzine HCl (ATARAX) 25 mg tablet Take 1 tablet by mouth three times daily as needed. baclofen (LIORESAL) 5 mg tablet Take 1 tablet by mouth daily at bedtime. mirtazapine (REMERON) 30 mg tablet Take 1 tablet by mouth daily at bedtime. traZODone (DESYREL) 50 mg tablet Take 1 tablet by mouth daily at bedtime. atenolol (TENORMIN) 25 mg tablet Take 0.5 tablets by mouth once daily. gabapentin (NEURONTIN) 300 mg capsule Take 1 capsule by mouth twice daily for 90 days. ammonium lactate (LAC-HYDRIN) 12 % lotion Apply to affected area as needed for Dry Skin. naproxen (NAPROSYN ORAL) Take 1 tablet by mouth once daily as needed. tamsulosin ER (FLOMAX) 0.4 mg Take 0.4 mg by mouth once daily. solifenacin 10 mg tablet Take 10 mg by mouth once daily. isosorbide mononitrate ER (IMDUR) 60 mg 24 hr tablet Take 60 mg by mouth once daily. alpha tocopheryl acetate (VITAMIN E) 400 unit capsule Take 400 Units by mouth once daily. ALLERGIES: ALLERGIES No Known Allergies REVIEW of SYSTEM: Constitutional: No weight loss, malaise or fevers. HEENT: Negative for frequent or significant headaches, No changes in hearing or vision, no nose bleeds or other nasal problems Respiratory: Negative for cough, wheezing, or shortness of breath Cardiovascular: Negative for chest pain, leg swelling or palpitations Gatrointestinal: Negative for abdominal discomfort, blood in stools or black stools or change in bowel habits and Positive for hernia and ostomy Genitourinary: No history of dysuria, frequency, or incontinence and not able to empty bladder fully Musculoskeletal: Negative for joint pain or swelling, back pain or muscle pain Endocrine: Negative for cold or heat intolerance, polyuria, polydipsia and goiter Hematology/Lymphatic: Negative for prolonged bleeding or swollen nodes positive for eay bruising Neurologic: No history or headaches, syncope, paralysis, seizures or tremors Integumentary: Negative for lesions, rash, and itching. PHYSICAL EXAM: VITALS: There were no vitals taken for this visit. General: Alert and oriented, No acute distress Integumentary: Normal color, no rash, no lesions. HEENT: EOM, pupils equal, round and reactive. Cardiovascular: Pulse regular. Lungs: No chest deformities or chest wall tenderness. Abdomen: Not examined Extremities: No deformity, no edema or tenderness, no joint swelling or clubbing. Neurological: Normal cognition and motor skills. Vascular: Radial Pulse Right: Normal - Left: Normal Diagnostic tests reviewed for today's visit: Most recent labs Most recent imaging Carotid Duplex RIGHT SIDE Common carotid artery: Plaque visualized without evidence of hemodynamically significant stenosis. Internal carotid artery: 60-79% stenosis. Vertebral artery: Patent and antegrade flow noted. Innominate artery: Unable to visualize. LEFT SIDE Common carotid artery: Plaque visualized without evidence of hemodynamically significant stenosis. Internal carotid artery: 40-59% stenosis. External carotid artery: Elevated velocities and plaque noted. Vertebral artery: Patent and antegrade flow noted. IMPRESSION: Mr. Hagen is a 82 year old male with carotid artery stenosis PLAN and RECOMMENDATIONS: Recommend continued medical management Follow up duplex in 6 months Would recommend blood pressure and cholesterol control Medical Decision Making SIGNATURE: Kaye Oneal DO PATIENT NAME: Sam Hagen DATE: March 26, 2022 TIME: 8:43 AM documented in this encounter [facility] 03-25-2022 Note HNO ID: [id number] Author: Maye Gonzalez MD Service: ? Author Type: Physician Type: Progress Notes Filed: 03/25/2022 10:37 AM Note Text: Brittny Gonzalez MD General Surgery [address] [place] [address], [address] [place] [address] Patient referred by: Maye Gonzalez [address] [place] [address] HPI: Mr. Hagen is a 82 year old male who presents today for routine follow-up due to his previous history of colon cancer. 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 He underwent a subtotal colectomy with partial cystectomy and end ileostomy. In July 2019 he developed a pelvic recurrence and underwent excision of the upper portion of his rectum and part of the bladder. In July 2020 he underwent repair of a parastomal hernia which was complicated by an enteric leak requiring reoperation. He has not had any evidence of recurrent disease since 2018. He was seen in Dr. Greenberg's office recently-he had a CT scan of the abdomen and pelvis which showed chronic changes in the bladder and presacral area without any obvious evidence of any recurrent or metastatic disease. A CEA level remains low and normal at 1.4-this is approximately where it has been in the last few years. He is having less rectal drainage than he has in the past and only gets this occasionally. He does describe some difficulty with his bladder-he may have some mild urinary retention symptoms. His ileostomy is working well without any problems. He needs occasional Imodium but is not having problems with diarrhea most of the time. He does have the bulge in his upper midline which is unchanged and not causing any symptoms. 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 His memory is only fair, he continues to use a cane and has some balance issues. PAST MEDICAL HISTORY Diagnosis Date - A-fib ([facility]) s/p colectomy 2016. 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 Bagley - BPH with obstruction/lower urinary tract symptoms - BPH with obstruction/lower urinary tract symptoms Dr. Hendrix - Chronic midline back pain 10/20/2017 - Cog-wheel rigidity 06/18/2019 left upper extrmity, right upper extremity lead piping - Cognitive impairment, mild, so stated 06/18/2019 - Colon cancer ([facility]) 06/30/[address] Greenberg, Had extension into the bladder wall and hd a partial cystectomy. - Colostomy care ([facility]) 09/25/2017 - Colostomy in place ([facility]) 09/25/2017 - Coronary artery disease involving solomon coronary artery 09/25/[address] Huntley-[place] [id number] - Elevated hemoglobin A1c 07/30/2018 - Essential hypertension 04/02/2011 - Essential tremor 08/16/2019 - Generalized weakness 06/18/2019 - H/O heart artery stent 09/25/2017 4 stents 1993 - History of DVT (deep vein thrombosis) 09/25/2017 1st clot end of Aug 2017, started on Eliquis 09/15/2017 needs to be on till 03/15/2018 S/P colectomy - History of GA (myocardial infarction) 1993 - History of prostate cancer seeing Dr. White - Hyperlipidemia, mixed 09/25/2017 - Malignant neoplasm of ascending colon ([facility]) 07/29/2017 - Malignant neoplasm of sigmoid colon ([facility]) 07/29/2017 - Medicare annual wellness visit, subsequent 07/30/2018 Medicare part B: 03/15/2017 last done: 08/17/2019 - Mixed incontinence 02/16/2020 - Nerve pain 09/25/2017 Right side hip and up the spine - Parastomal hernia without obstruction or gangrene - Personal history of colon cancer 12/18/2020 - Primary insomnia 01/02/2021 - Rectal cancer (HCC) 10/12/2019 - S/P total colectomy 07/16/2017 - 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 - Situational depression 08/17/2019 Resolved as of 02/2020 - Tarsal tunnel syndrome of right side 06/23/2019 NCS 06/23/2019 PAST SURGICAL HISTORY Procedure Laterality Date - ANGIOPLASTY 11/13/1993 - CARPAL TUNNEL Bilateral - CATARACT EXTRACTION HX Bilateral right 2016 and left 2018 - CYSTOSCOPY AND TREATMENT botox injection - ECHOCARDIOGRAM 07/05/2017 - HEART CATHETERIZATION 02/24/2002 - LAPAROSCOPY SURG RPR INITIAL INGUINAL HERNIA 01/11/09 - PAST SURGICAL HISTORY OF 07/03/2017 COLECTOMY ABDOMINAL W/O PROCTECTOMY W/ ILEOSTOMY/ILEOPROCTOSTOMY, TOTAL - RECONSTRUCTION ROTATOR CUFF AVULSION CHRONIC left - RPR INGUN HERNIA SLIDING ANY AGE LIH - RPR UMBILICAL HRNA 5 YRS/> REDUCIBLE 01/11/09 - SIGMOIDOSCOPY 07/02/2017 and 07/2019 moderately differentiated adenocarcinoma-sigmoid colon mass FAMILY HISTORY Problem Relation Age of Onset - Prostate Cancer Father - Cancer Father skin - Heart Mother [place] late 50's - Stroke Mother - Diabetes Mother Social History Tobacco Use - Smok (more content not included)... [facility] 03-25-2022 History of Present illness Narrative Images from the original note were not included. Brittny Gonzalez MD General Surgery [address], [address] [place] [address] Patient referred by: Maye Gonzalez [facility] [place] [id number] HPI: Mr. Hagen is a 82 year old male who presents today for routine follow-up due to his previous history of colon cancer. In 2016 he had synchronous cancers of the sigmoid and cecum both of which were node positive and one of which was invading the bladder. He underwent a subtotal colectomy with partial cystectomy and end ileostomy. In July 2019 he developed a pelvic recurrence and underwent excision of the upper portion of his rectum and part of the bladder. In July 2020 he underwent repair of a parastomal hernia which was complicated by an enteric leak requiring reoperation. He has not had any evidence of recurrent disease since 2018. He was seen in Dr. Greenberg's office recently-he had a CT scan of the abdomen and pelvis which showed chronic changes in the bladder and presacral area without any obvious evidence of any recurrent or metastatic disease. A CEA level remains low and normal at 1.4-this is approximately where it has been in the last few years. He is having less rectal drainage than he has in the past and only gets this occasionally. He does describe some difficulty with his bladder-he may have some mild urinary retention symptoms. His ileostomy is working well without any problems. He needs occasional Imodium but is not having problems with diarrhea most of the time. He does have the bulge in his upper midline which is unchanged and not causing any symptoms. 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 His memory is only fair, he continues to use a cane and has some balance issues. 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 Bagley BPH with obstruction/lower urinary tract symptoms BPH with obstruction/lower urinary tract symptoms Dr. Hendrix Chronic midline back pain 10/20/2017 Cog-wheel rigidity 06/18/2019 left upper extrmity, right upper extremity lead piping Cognitive impairment, mild, so stated 06/18/2019 Colon cancer ([facility]) 06/30/[address] Greenberg, Had extension into the bladder wall and hd a partial cystectomy. Colostomy care ([facility]) 09/25/[address] ([facility]) 09/25/2017 Coronary artery disease involving solomon coronary artery 09/25/[address] Huntley-[place] [id number] Elevated hemoglobin A1c 07/30/2018 Essential hypertension 04/02/2011 Essential tremor 08/16/2019 Generalized weakness 06/18/2019 H/O heart artery stent 09/25/2017 4 stents 1993 History of DVT (deep vein thrombosis) 09/25/2017 1st clot end of Aug 2017, started on Eliquis 09/15/2017 needs to be on till 03/15/2018 S/P colectomy History of [place] (myocardial infarction) 1993 History of prostate cancer seeing Dr. 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 Situational depression 08/17/2019 Resolved as of 02/2020 Tarsal tunnel syndrome of right side 06/23/2019 NCS 06/23/2019 PAST SURGICAL HISTORY Procedure Laterality Date ANGIOPLASTY 11/13/1993 CARPAL TUNNEL Bilateral CATARACT EXTRACTION HX Bilateral right 2016 and left 2018 CYSTOSCOPY AND TREATMENT botox injection ECHOCARDIOGRAM 07/05/2017 HEART CATHETERIZATION 02/24/2002 LAPAROSCOPY SURG RPR INITIAL INGUINAL HERNIA 01/11/09 PAST SURGICAL HISTORY OF 07/03/2017 COLECTOMY ABDOMINAL W/O PROCTECTOMY W/ ILEOSTOMY/ILEOPROCTOSTOMY, TOTAL RECONSTRUCTION ROTATOR CUFF AVULSION CHRONIC left RPR INGUN HERNIA SLIDING ANY AGE LIH RPR UMBILICAL HRNA 5 YRS/> REDUCIBLE 01/11/09 SIGMOIDOSCOPY 07/02/2017 and 07/2019 moderately differentiated adenocarcinoma-sigmoid colon mass FAMILY HISTORY Problem Relation Age of Onset Prostate Cancer Father Cancer Father skin Heart Mother [place] late 50's Stroke Mother Diabetes Mother Social History Tobacco Use Smoking status: Never Smoker Smokeless tobacco: Current User Types: Chew Vaping Use Vaping Use: Never used Substance Use Topics Alcohol use: Yes Alcohol/week: 2.0 standard drinks Types: 2 Shots of liquor per week Drug use: No Current Outpatient Medications Medication Sig buprenorphine 7.5 mcg/hour ptwk apply 1 patch to CLEAN, DRY, AND INTACT SKIN and REPLACE every 7 days finasteride (PROSCAR) 5 mg tablet Take by mouth. LORazepam (ATIVAN) 1 mg tablet Take by mouth. nitroglycerin sublingual (NITROQUICK) 0.4 mg SL tablet Q5M hydrOXYzine HCl (ATARAX) 25 mg tablet Take 1 tablet by mouth three times daily as needed. baclofen (LIORESAL) 5 mg tablet Take 1 tablet by mouth daily at bedtime. mirtazapine (REMERON) 30 mg tablet Take 1 tablet by mouth daily at bedtime. traZODone (DESYREL) 50 mg tablet Take 1 tablet by mouth daily at bedtime. atenolol (TENORMIN) 25 mg tablet Take 0.5 tablets by mouth once daily. gabapentin (NEURONTIN) 300 mg capsule Take 1 capsule by mouth twice daily for 90 days. ammonium lactate (LAC-HYDRIN) 12 % lotion Apply to affected area as needed for Dry Skin. naproxen (NAPROSYN ORAL) Take 1 tablet by mouth once daily as needed. tamsulosin ER (FLOMAX) 0.4 mg Take 0.4 mg by mouth once daily. solifenacin 10 mg tablet Take 10 mg by mouth once daily. isosorbide mononitrate ER (IMDUR) 60 mg 24 hr tablet Take 60 mg by mouth once daily. alpha tocopheryl acetate (VITAMIN E) 400 unit capsule Take 400 Units by mouth once daily. No current facility-administered medications for this visit. ALLERGIES No Known Allergies REVIEW OF SYSTEMS: ROS PHYSICAL EXAM: BP 108/60 Pulse 70 Wt 170 lb 12.8 oz (77.5kg) SpO2 98% Last 2 Encounter Wt Readings: Date: Wt: 03/25/2022 77.5 kg (170 lb 12.8 oz) 03/21/2022 79.6 kg (175 lb 8 oz) Physical Exam Vitals reviewed. Constitutional: General: He is not in acute distress. Appearance: Normal appearance. He is normal weight. He is not ill-appearing. Cardiovascular: Rate and Rhythm: Normal rate and regular rhythm. Heart sounds: Normal heart sounds. Pulmonary: Breath sounds: Normal breath sounds. Abdominal: General: Abdomen is flat. There is no distension. Palpations: Abdomen is soft. There is no mass. Tenderness: There is no abdominal tenderness. Hernia: A hernia is present. Comments: Upper midline hernia- nontender, easily reduces, size approx 5-6 cm Ileostomy in LUQ- pink, soft, greenish stool in bag No hernias below umb No masses Vague swelling under stoma- c/w parastomal hernia Skin: General: Skin is warm and dry. Findings: No bruising or erythema. Neurological: General: No focal deficit present. Mental Status: He is alert. Psychiatric: Mood and Affect: Mood normal. Behavior: Behavior normal. DATA: Diagnostic tests reviewed for today's visit: Most recent labs Most recent imaging CT- Ventral and parastomal hernia Chronic presacral changes, bladder thickening No obvious recurrent or metastatic disease CEA 1.4 Plan Assessment and Plan: Encounter Diagnosis ICD-10-CM 1. History of colon cancer Z85.038 2. Ventral hernia without obstruction or gangrene K43.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) Z93.2 (Z85.038) History of colon cancer (primary encounter diagnosis) Comment: History of synchronous colon cancers-T4 N1 M0-original diagnosis in 2017 Recurrent pelvic disease in 2019 Currently without any evidence of active disease, pelvic recurrence or metastatic Plan: Continue to monitor with CEA and CT scans. We will recheck in about 6 months (K43.9) Ventral hernia without obstruction or gangrene Comment: His upper midline and parastomal hernia has remained stable and asymptomatic Plan: We will continue to monitor; no immediate plans to proceed with any repair (Z93.2) 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) Comment: Stable and functioning well Plan: Continue current management The primary encounter diagnosis was History of colon cancer. Diagnoses of Ventral hernia without obstruction or gangrene and 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) were also pertinent to this visit. (Z85.038) History of colon cancer (primary encounter diagnosis) (K43.9) Ventral hernia without obstruction or gangrene (Z93.2) 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) A total of 30 minutes was spent in direct patient contact. Greater than 50% of the direct patient contact time was spent in counseling or coordination of care. Please Note: This office note has been created using [employer], a speech recognition software program, and may contain errors including punctuation, grammar, spelling, gender, and inappropriate words or phrases that pertain to the sytem. documented in this encounter [facility] 03-21-2022 History of Present illness Narrative Chief Complaint Patient presents with: Established Patient HPI: Sam Hagen is a 82 year old male who presents here today for follow up rectal cancer. Per Dr. Greenberg's previous note: H/o CAD ([place] 1993; treated with PCI balloon angioplasty; no stent) and prostate cancer (tx with radiation x44 fx ~8 years ago). He presented to [place] fall 2016 with symptoms of bowel obstruction. He underwent attempted colonoscopy but the procedure was aborted when the scope was not able to be passed through the rectum/sigmoid area. He was transferred to [facility]. He ultimately underwent a total colectomy along with end ileostomy and partial bladder resection on 07/03/2017. He was noted to have 2 foci of tumor one in the cecum and one in the sigmoid colon. The latter tumor was adherent to the bladder invasive to the bladder wall. 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 TUMOR PENETRATES TO THE SURFACE OF THE VISCERAL PERITONEUM. SURGICAL MARGINS NEGATIVE. 1 OF 13 LYMPH NODES POSITIVE FOR METASTATIC ADENOCARCINOMA AND 1 TUMOR DEPOSIT PRESENT. PERINEURAL AND LYMPHOVASCULAR INVASION PRESENT. B) SMALL INTESTINE, TERMINAL ILEUM, ILEOSTOMY - BENIGN SMALL INTESTINAL TISSUE. C) BLADDER, PARTIAL CYSTECTOMY - FOCAL INVOLVEMENT OF THICK SMOOTH MUSCLE BUNDLES BY ADENOCARCINOMA. NO UROTHELIUM PRESENT. D) COLON, SIGMOID, SEGMENTAL RESECTION - INVASIVE LOW GRADE (MODERATELY DIFFERENTIATED) ADENOCARCINOMA (3 CM IN GREATEST DIMENSION). SURGICAL MARGINS APPEAR NEGATIVE. BENIGN TRANSECTED BENIGN VAS DEFERENS (2) AND THICK SMOOTH MUSCLE SUGGESTIVE OF BLADDER. 1 OF 9 LYMPH NODES POSITIVE FOR METASTATIC ADENOCARCINOMA Previous therapy: 1) Infusional 5FU. Radiation not recommended. Pt. had CT's in 2018. Showed rectal mass. MRI done. Again showed: Postoperative changes from subtotal colectomy with tumor seen within the Wills's pouch spanning the mid rectal region anteriorly to the sigmoid colon. There is extension into the seminal vesicle and left posterior bladder wall. There is possible involvement of the left vesicoureteral junction. Referred to surgeon-Dr. Gonzalez. Flex sig done 08/06/19. Path: FINAL DIAGNOSIS: A) UPPER RECTAL MASS, BIOPSIES - SEVERE GLANDULAR DYSPLASIA/CARCINOMA IN SITU. B) MID RECTAL MASS, CORE BIOPSY - INVASIVE ADENOCARCINOMA. SEE COMMENT. CTs 10/07 showed no evidence of metastatic disease. Previous therapy: 1) Infusional 5-fluorouracil with concurrent radiation. He completed concurrent infusional 5 fluorouracil with radiation on 11/10/2019. He underwent exploratory laparotomy with lysis of adhesions followed by partial resection of the rectum/low anterior resection on 12/23/2019. Operative findings indicate that there was no obvious invasion of tumor into the bladder. Firm nodularity along the right anterior side of the rectum in a separate margin was obtained which likely included some of the seminal vesicle. On cystoscopy was no obvious intravesicular tumor. A bladder stone was observed and removed. There was no evidence of fistula and it was deemed not necessary to perform partial or complete cystectomy. The rectum was fully mobilized and divided below the prostate. Approximately 3-4 cm the rectum was maintained the distal transection was performed at the top of the anal canal. There was no evidence of peritoneal disease or obvious spread beyond the area between the rectum and bladder. Pathology: FINAL DIAGNOSIS: A) RECTUM (LOW ANTERIOR RESECTION) - MODERATELY DIFFERENTIATED ADENOCARCINOMA WITH INVASION THROUGH THE MUSCULARIS PROPRIA INTO PERIRECTAL TISSUE. FEATURES CONSISTENT WITH THERAPY EFFECT. PROXIMAL BLIND POUCH REPRESENTING PREVIOUS COLECTOMY SITE. PERIRECTAL LYMPH NODE (1 LYMPH NODE) - NEGATIVE FOR MALIGNANCY. B) RIGHT ANTERIOR PELVIC MARGIN - FRAGMENTS OF FIBROVASCULAR TISSUE, ADIPOSE TISSUE AND SMOOTH MUSCLE WITH INVOLVEMENT BY MODERATELY DIFFERENTIATED ADENOCARCINOMA. ATTACHED SEGMENT OF VAS DEFERENS. COMMENT: Clinically, the adenocarcinoma is considered to represent a recurrence of the previous adenocarcinomas of the cecum and sigmoid colon for which the patient underwent total colectomy in 2017 ([id number]). Colon and Rectum Cancer Case Summary Procedure: Low anterior resection. Tumor site: Rectum. Tumor size: Approximately 3 cm. Macroscopic tumor perforation: Not identified. Histologic type: Adenocarcinoma. Histologic grade: Grade 2, moderately differentiated. Tumor extension: Tumor adheres to adjacent structure (vas deferens) and involves smooth muscle suggestive of bladder. Margins: -Distal stapled margin: No definite involvement by tumor is identified. Mesenteric shave margin: Negative for malignancy. -Circumferential margin: Cannot be assessed due to disruption. Treatment effect: Present. Lymphovascular invasion: Not identified. Perineural invasion: Present. Tumor deposits: Not identified. Lymph nodes: Number examined: 1. Number involved: None. Pathologic stage: yrpT4b yrpN0. Previous therapy:5fu Last cycle 05/08/20 Pt. wanted to stop treatment prematurely. S/p 1. Exploratory Laparotomy with ileostomy takedown 2. Extensive lysis of adhesions (>30 minutes) 3. Repair of small contained perforation 4. ANGIE drain placement 5. Incisional hernia repair, primary 6. Ileostomy re-creation on 08/07/[address] Gonzalez Pt. was admitted 08/05/20 Discharged 08/16/20. Post-op course complicated by infection. Went to ED 08/19/20. Pt. re-admitted and had CT/US guided drain placement for left parastomal fluid collection, left abdominal fluid collection, US guided aspiration of anterior abdominal subcutaneous fluid collection on 08/20/20. Discharged on 08/22/20. Followed by pain mgmt. Dr. Tena for chronic back pain. No new concerns today. Appetite: Good. Wt. stable Energy level: Fair. Denies fevers or recent illness. Resp:denies cough or sob Cardiac:denies chest pain/palpitations GI:denies abd pain, n/v, ostomy functioning well :denies dysuria/hematuria-Followed by urology Extrem:R hip/R low back pain chronic, followed by pain mgmt. Dr. 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 Past medical history, appointments, medications, allergies reviewed. No changes. EXAM: BP 132/70 Pulse 81 Temp 37.2 C (98.9 F) Wt 79.6 kg (175 lb 8 oz) BMI 27.71 kg/m APPEARANCE Well appearing, alert, in no acute distress, well-hydrated, well nourished. HEART RRR with normal S1 and S2, no murmurs LUNG clear to auscultation LYMPH NODES No cervical lymphadenopathy, No supraclavicular lymphadenopathy and No axillary lymphadenopathy. ABDOMEN ostomy, bowel sounds normoactive, soft, non-tender, non-distended, L sided abd hernia EXTREMITIES No edema NEURO Awake, alert and oriented x 3, using cane and No involuntary motions. SKIN Skin color, texture, turgor normal, no suspicious rashes or lesions LABS: Component Latest Ref Rng & Units 01/30/2022 02/26/2022 WBC 3.70 - 11.00 k/uL 7.07 7.56 RBC 4.20 - 6.00 m/uL 4.41 4.18 (L) Hemoglobin 13.0 - 17.0 g/dL 13.3 12.9 (L) Hematocrit 39.0 - 51.0 % 42.4 38.4 (L) MCV 80.0 - 100.0 fL 96.1 91.9 MCH 26.0 - 34.0 pg 30.2 30.9 MCHC 30.5 - 36.0 g/dL 31.4 33.6 RDW-CV 11.5 - 15.0 % 13.8 13.9 Platelet Count 150 - 400 k/uL 200 189 MPV 9.0 - 12.7 fL 9.3 9.0 Neut% % 69.9 75.5 Abs Neut (ANC) 1.45 - 7.50 k/uL 4.94 5.71 Lymph% % 17.5 13.6 Abs Lymph 1.00 - 4.00 k/uL 1.24 1.03 [place]% % 9.9 8.1 Abs [place] <0.87 k/uL 0.70 0.61 Eosin% % 2.0 2.0 Abs Eosin <0.46 k/uL 0.14 0.15 Baso% % 0.6 0.4 Abs Baso <0.11 k/uL 0.04 0.03 Immature Gran % % 0.1 0.4 IMMATURE GRANS (ABS) <0.10 k/uL <0.03 0.03 NRBC /100 WBC 0.0 0.0 Absolute nRBC <0.01 k/uL <0.01 <0.01 DTYPE Auto Auto Component Latest Ref Rng & Units 01/30/2022 02/26/2022 Glucose 74 - 99 mg/dL 80 108 (H) BUN 9 - 24 mg/dL 21 20 Creatinine 0.73 - 1.22 mg/dL 1.02 0.85 Sodium 136 - 144 mmol/L 141 138 Potassium 3.7 - 5.1 mmol/L 5.1 4.7 Chloride 97 - 105 mmol/L 107 (H) 103 CO2 22 - 30 mmol/L 24 24 Anion Gap 9 - 18 mmol/L 10 11 Calcium 8.5 - 10.2 mg/dL 9.2 9.3 eGFR >=60 mL/min/1.73m 73 86 Component Latest Ref Rng & Units 11/12/2021 12/14/2021 02/26/2022 CEA <=2.9 ng/mL 1.2 1.3 1.4 RADIOLOGY: CT chest 02/26/22: IMPRESSION: No developing suspicious mass or adenopathy in the chest CT abd/pelvis 02/26/22: IMPRESSION: No developing suspicious mass within the abdomen or pelvis. Stable presacral soft tissue Stable asymmetrical thickening of the urinary bladder wall. ASSESSMENT/PLAN: 1. Rectal cancer (HCC) - ICD9: 154.1, ICD10: C20 yrpT4b yrpN0 stage IIC. Tolerated neoadjuvant chemotherapy/radiation well. - No new concerning findings on exam. - Pt. completed 7 cycles of 5fu/leucovorin-pt. stopped prematurely. - Reviewed labs/CT's with pt. - Monitor CEA. - CT chest/abd/pelvis due Aug 2022. - Follow up with Dr. Gonzalez/PCP/Vasc/PT as scheduled. - Needs port flushes. - Follow up after CT's with CBC/BMP/LFT's/CEA. - Pt. aware to call office with any questions/concerns. The patient indicates understanding of these issues and agrees with the plan. All documentation from previous visit of 11/14/21-Dr. Greenberg/myself was copied and pasted, documentation has been reviewed and edited as necessary for today's visit. Tameka Marshall APRN.ENVIRONMENTAL FIELD SERVICES TECHNICIAN documented in this encounter [facility] 03-21-2022 Nurse Note Est. Pt. Discuss recent labs and CT results. Shreya Villalta LPN documented in this encounter [facility] 03-08-2022 Miscellaneous Notes noted Patient calling in to state he has been having more leg cramping from groin down his leg, especially in his right leg over the last week, and would like to make an appt to be seen next week. He states he can't be seen today due to personal schedule. 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 He states he's not sure if he has any leg swelling or redness. Patient states he would go to ER if it got worse. Patient also states he wants to discuss if he has Parkinson's Disease or not. Appt made with Sharda for 03/12/22. documented in this encounter [facility] 02-26-2022 History of Present illness Narrative Blood return verified. Gripper hooked to auto-injector. Ct completed. Line flushed with 20cc NSS and 5cc Heparin. Gripper D/C'd. Light dressing applied. Pt tolerated procedure well. No C/O's. Site without complication noted. Deepika Gavin RN documented in this encounter [facility] 02-26-2022 History of Present illness Narrative Radiology Service Progress Note PATIENT NAME: Sam Hagen DATE OF SERVICE: February 26, 2022 TIME: 2:04 PM PATIENT IDENTITY VERIFICATION COMPLETED USING TWO (2) IDENTIFIERS: Name and Date of confirmed by patient verbally. FALL SCREENING: Has the patient had 2 falls in the last year or 1 fall with injury or currently using an Ambulatory Assistive Device (Walker, Cane, Wheelchair, Crutches, etc.)? No PATIENT GENDER DATA: Male PATIENT RELEVANT IMPLANT DATA REVIEWED: Yes RADIOLOGY DEPARTMENT: CT; Exam(s) Completed: Chest Abdomen Pelvis PERIPHERAL IV DATA: power port accessed by [employer] SIGNED BY: RT Arturo(R) February 26, 2022 2:04 PM documented in this encounter [facility] 02-06-2022 Miscellaneous Notes Pt called and is notified of providers message and instructions. Pt voices understanding. Message was left for Dr Small to cancel the surgery until Pt see Vascular in March. Ifrah Cuevas RN Advise Coral at Dr. Small office to hold off on the back surgery for now. Patient has an appt to see Vascular regarding this issue in early March. Also advise Sam that when he sees vascular to ask if he can proceed with his back surgery. Coral- Dr. Vishal Small office, reports patient informed them he has blockage in carotids. Asking if patient is still cleared for surgery tomorrow. Please phone Coral with reply: [phone] Patient calling he is scheduled for back surgery tomorrow at [facility] per Dr Small. Patient asking if he is safe to have surgery done since he has carotid blockages? Patient does not know what time he is scheduled for yet. He said he is to be staying overnight at [facility]. Please advise documented in this encounter [facility] 01-31-2022 Miscellaneous Notes Patient notified. Verbalized understanding. ----- Message from Sharda Carl PA-C sent at 01/31/2022 8:45 AM EDT ----- Labs are normal. documented in this encounter [facility] 01-22-2022 History of Present illness Narrative Scan on 01/22/2022 11:12 AM by External Provider: Echo documented in this encounter [facility] 01-17-2022 Miscellaneous Notes Pt notified to contact Dr. Tena's office. He stated [place] [facility] states that they will not do anything for pain till his surgery. Yeni Moore Ma Patient needs to discuss with specialists. He is also seeing [facility]. Dr. Jones are you wanting to see this pt for hip pain, 05/25. Checking with you first if you advise an appt or suggest pt follow with Specialist. Pt currently see's Pain Management, Sapphire Perez and Dr. Rosas. He is on Buprenorphine 7.5 mcg patch weekly and Gabapentin 300 mg twice daily. Advise. Radha Ramirez Ma Sam Hagen is calling Vishal Jones MD today he is calling: Pain level 9; requesting pain medication for right hip; stated he really needs something as soon as possible today. Patient has been identified by name and birthdate. Duration of symptoms: N/A Person calling: self Call patient at: at home [phone] (home) [phone] (cell) Was an appointment scheduled: No Closing statement: Symptom Call: Thank you for calling [facility], your call is very important. A nurse will call in approximately 2-4 hours during business hours. If this is an emergency, please contact 911. Beverley Garrett documented in this encounter [facility] 01-08-2022 Miscellaneous Notes Spoke to patient and friend melissa and went over provider message. Friend melissa will check medication and call pharmacy if needing refills. Alejandra Farmer Ma Let patient know when I last seen him on 12/08/2021 I wanted him to continue the mirtazapine 30 mg before bed and the Hydroxyzine 10 mg he could take up to 3 times a day as needed for anxiety. Both meds were sent to [facility]. Attempted to contact patient; no answer; no voicemail. Provider sent to pharmacy 12/08/2021 Hydroxyzine for anxiety. Sylvia Rossi MA Sam Lucioons is calling Vishal Jones MD today he is calling and asking about a medication that the doctor told him he would have sent to his pharmacy for anxiety/depression. He does not know the name of the medication. Please call the patient. Patient has been identified by name and birthdate. Duration of symptoms: N/A Person calling: self Call patient at: at home [phone] (home) [phone] (cell) Was an appointment scheduled: No Closing statement: Results or non-symptom based questions: Thank you for calling [facility], your call will be returned within the next business day. Beverley Garrett documented in this encounter [facility] 12-24-2021 Note HNO ID: [id number] Author: Maye Gonzalez MD Service: ? Author Type: Physician Type: Progress Notes Filed: 12/24/2021 9:45 AM Note Text: Brittny Gonzalez MD General Surgery [address], [address] [place] [address] Patient referred by: Tasha Sim [address] [place] [address] HPI: Mr. 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 He underwent a subtotal colectomy with partial cystectomy and end ileostomy. In July 2019 he developed a pelvic recurrence and underwent excision of the upper portion of his rectum and part of the bladder. In July 2020 he underwent repair of a parastomal hernia which was complicated by an enteric leak requiring reoperation. He has not had any obvious recurrence since then. Today he is doing relatively well overall. There are plans for back surgery in the near future but this is not scheduled yet as he is still awaiting cardiac clearance. He is not having any abdominal problems and his overall situation is unchanged from his last visit. He continues to have bulging in the upper midline and vaguely around his ileostomy in the left abdomen. He is not having any problems with the ileostomy and it is functioning normally. His stool is soft and not to watery. He does note ongoing mild discharge from his rectum which has been chronic. He is not having difficulty voiding. His most recent CT scan was done at the end of October that showed some chronic thickening of tissue in the presacral area, some bladder thickening, his upper midline and parastomal hernias but overall no obvious recurrence of cancer. His CEA level remains normal at 1.3 PAST MEDICAL HISTORY Diagnosis Date - A-fib (HCC) s/p colectomy 2016. 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 Bagley - BPH with obstruction/lower urinary tract symptoms - BPH with obstruction/lower urinary tract symptoms Dr. Hendrix - Chronic midline back pain 10/20/2017 - Cog-wheel rigidity 06/18/2019 left upper extrmity, right upper extremity lead piping - Cognitive impairment, mild, so stated 06/18/2019 - Colon cancer ([facility]) 06/30/[address] Greenberg, Had extension into the bladder wall and hd a partial cystectomy. - Colostomy care ([facility]) 09/25/2017 - Colostomy in place ([facility]) 09/25/2017 - Coronary artery disease involving solomon coronary artery 09/25/[address] Huntley-Hug[facility] [id number] - Elevated hemoglobin A1c 07/30/2018 - Essential hypertension 04/02/2011 - Essential tremor 08/16/2019 - Generalized weakness 06/18/2019 - H/O heart artery stent 09/25/2017 4 stents 1993 - History of DVT (deep vein thrombosis) 09/25/2017 1st clot end of Aug 2017, started on Eliquis 09/15/2017 needs to be on till 03/15/2018 S/P colectomy - History of GA (myocardial infarction) 1993 - History of prostate cancer seeing Dr. 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 - Situational depression 08/17/2019 Resolved as of 02/2020 - Tarsal tunnel syndrome of right side 06/23/2019 NCS 06/23/2019 PAST SURGICAL HISTORY Procedure Laterality Date - ANGIOPLASTY 11/13/1993 - CARPAL TUNNEL Bilateral - CATARACT EXTRACTION HX Bilateral right 2016 and left 2018 - CYSTOSCOPY AND TREATMENT botox injection - ECHOCARDIOGRAM 07/05/2017 - HEART CATHETERIZATION 02/24/2002 - LAPAROSCOPY SURG RPR INITIAL INGUINAL HERNIA 01/11/09 - PAST SURGICAL HISTORY OF 07/03/2017 COLECTOMY ABDOMINAL W/O PROCTECTOMY W/ ILEOSTOMY/ILEOPROCTOSTOMY, TOTAL - RECONSTRUCTION ROTATOR CUFF AVULSION CHRONIC left - RPR INGUN HERNIA SLIDING ANY AGE LIH - RPR UMBILICAL HRNA 5 YRS/> REDUCIBLE 01/11/09 - SIGMOIDOSCOPY 07/02/2017 and 07/2019 moderately differentiated adenocarcinoma-sigmoid colon mass FAMILY HISTORY Problem Relation Age of Onset - Prostate Cancer Father - Cancer Father skin - Heart Mother [place] late 50's - Stroke Mother - Diabetes Mother Social History Tobacco Use - Smoking status: Never Smoker - Smokeless tobacco: Current User Types: Chew (more content not included)... [facility] 12-14-2021 Instructions Sharda Carl PA-C - 12/14/2021 9:33 AM EDT Please get labs done. Can try Aquaphor at night to help moisturize skin. Follow up as scheduled otherwise. documented in this encounter [facility] 12-14-2021 History of Present illness Narrative Chief Complaint Patient presents with: Pre-Op Exam HPI Sam Hagen is a 81 year old male who presents here today for preop exam. Patient will be having a L3-L4 laminectomy decompression. This has not been scheduled yet. Patient reports he is scheduled with cardio on 12/31 for cardiac clearance. Patient reports no complications from previous surgeries. He has hx of CAD, a. Fib. HLP, HTN, colectomy with ileostomy s/p colon cancer, prediabetes, and those as below. He declines any current concerns. Past medical history, appointments, medications, allergies reviewed. Previous Medical History PAST MEDICAL HISTORY Diagnosis Date A-fib (HCC) s/p colectomy 2016. 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 Bagley BPH with obstruction/lower urinary tract symptoms BPH with obstruction/lower urinary tract symptoms Dr. Hendrix Chronic midline back pain 10/20/2017 Cog-wheel rigidity 06/18/2019 left upper extrmity, right upper extremity lead piping Cognitive impairment, mild, so stated 06/18/2019 Colon cancer (HCC) 06/30/[address] Greenberg, Had extension into the bladder wall and hd a partial cystectomy. Colostomy care ([facility]) 09/25/[address] ([facility]) 09/25/2017 Coronary artery disease involving solomon coronary artery 09/25/[address] Siddiqui [id number] Elevated hemoglobin A1c 07/30/2018 Essential hypertension 04/02/2011 Essential tremor 08/16/2019 Generalized weakness 06/18/2019 H/O heart artery stent 09/25/2017 4 stents 1993 History of DVT (deep vein thrombosis) 09/25/2017 1st clot end of Aug 2017, started on Eliquis 09/15/2017 needs to be on till 03/15/2018 S/P colectomy History of GA (myocardial infarction) 1993 History of prostate cancer seeing Dr. 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 Situational depression 08/17/2019 Resolved as of 02/2020 Tarsal tunnel syndrome of right side 06/23/2019 NCS 06/23/2019 Previous Surgical History PAST SURGICAL HISTORY Procedure Laterality Date ANGIOPLASTY 11/13/1993 CARPAL TUNNEL Bilateral CATARACT EXTRACTION HX Bilateral right 2016 and left 2018 CYSTOSCOPY AND TREATMENT botox injection ECHOCARDIOGRAM 07/05/2017 HEART CATHETERIZATION 02/24/2002 LAPAROSCOPY SURG RPR INITIAL INGUINAL HERNIA 01/11/09 PAST SURGICAL HISTORY OF 07/03/2017 COLECTOMY ABDOMINAL W/O PROCTECTOMY W/ ILEOSTOMY/ILEOPROCTOSTOMY, TOTAL RECONSTRUCTION ROTATOR CUFF AVULSION CHRONIC left RPR INGUN HERNIA SLIDING ANY AGE LIH RPR UMBILICAL HRNA 5 YRS/> REDUCIBLE 4/29/09 SIGMOIDOSCOPY 07/02/2017 and 07/2019 moderately differentiated adenocarcinoma-sigmoid colon mass Family History FAMILY HISTORY Problem Relation Age of Onset Prostate Cancer Father Cancer Father skin Heart Mother [place] late 50's Stroke Mother Diabetes Mother Patient Allergies ALLERGIES No Known Allergies Current Medications Current Outpatient Medications on File Prior to Visit Medication Sig atenolol (TENORMIN) 25 mg tablet Take 0.5 tablets by mouth once daily. hydrOXYzine HCl (ATARAX) 10 mg tablet Take 1 tablet by mouth three times daily as needed. gabapentin (NEURONTIN) 300 mg capsule Take 1 capsule by mouth twice daily for 90 days. ammonium lactate (LAC-HYDRIN) 12 % lotion Apply to affected area as needed for Dry Skin. mirtazapine (REMERON) 30 mg tablet Take 1 tablet by mouth daily at bedtime. traZODone (DESYREL) 50 mg tablet Take 1 tablet by mouth daily at bedtime. buprenorphine 7.5 mcg/hour ptwk Apply 1 Patch as directed one time a week. naproxen (NAPROSYN ORAL) Take 1 tablet by mouth once daily as needed. traMADol (ULTRAM) 50 mg tablet Take 100 mg by mouth twice daily as needed. diclofenac sodium (VOLTAREN) 1 % topical gel Apply 2 g to affected area four times daily as needed (pain, discomfort). tamsulosin ER (FLOMAX) 0.4 mg Take 0.4 mg by mouth once daily. Psyllium Seed-Sucrose (FIBER SMOOTH) powd Take 2 Tablespoonsful by mouth twice daily. (Patient taking differently: Take 2 Tablespoonsful by mouth twice daily as needed (constipation). As needed) solifenacin 10 mg tablet Take 10 mg by mouth once daily. isosorbide mononitrate ER (IMDUR) 60 mg 24 hr tablet Take 60 mg by mouth once daily. alpha tocopheryl acetate (VITAMIN E) 400 unit capsule Take 400 Units by mouth once daily. aspirin, enteric coated (ASPIRIN, ENTERIC COATED) 81 mg EC tablet Take 81 mg by mouth once daily. simvastatin (ZOCOR) 40 mg tablet Take 1 tablet by mouth daily at bedtime. No current facility-administered medications on file prior to visit. Social History Social History Tobacco Use Smoking status: Never Smoker Smokeless tobacco: Current User Types: Chew Vaping Use Vaping Use: Never used Substance Use Topics Alcohol use: Yes Alcohol/week: 2.0 standard drinks Types: 2 Shots of liquor per week Drug use: No Review of Symptoms REVIEW OF SYSTEMS GENERAL: No weight loss, malaise or fevers NECK: Negative for lumps, goiter, pain and significant neck swelling RESPIRATORY: Negative for cough, hemoptysis, wheezing, COPD, dyspnea or shortness of breath CARDIOVASCULAR: Negative for chest pain, leg swelling, CHF or palpitations GI: Negative for abdominal discomfort, blood in stools or black stools, change in bowel habit, heart burn, nausea, vomiting : No history of dysuria, frequency or incontinence HEMATOLOGY/LYMPHOLOGY: Negative for prolonged bleeding, bruising easily or swollen nodes ENDOCRINE: Negative for cold or heat intolerance, polyuria, polydipsia and goiter NEURO: No history of headaches, syncope, paralysis, seizures or tremors EXAM: BP 110/62 (BP Site: Left Arm, BP Position: Sitting, BP Cuff Size: Large Adult) Pulse 80 Temp 36.6 C (97.9 F) Resp 18 Wt 78.9 kg (174 lb) BMI 27.25 kg/m General Appearance: Well appearing, alert, in no [...] Lungs clear to auscultation. No wheezing, rhonchi, rales.. Heart: RRR without murmur, gallop, or rubs. No ectopy. Abdomen: Normal abdominal exam, Abdomen soft, non-tender. Bowel sounds normal. No masses, organomegaly, +hernia. +colostomy bag. Extremities: No deformities, edema, skin discoloration, clubbing or cyanosis. Good capillary refill. . Peripheral Pulses: Normal. Neurologic: Gait normal. Reflexes normal and symmetric. Sensation grossly intact.. Health Maintenance List ADVANCE DIRECTIVE DISCUSSION Never done LDL CHOLESTEROL due on 11/30/2021 DIABETES SCREEN due on 11/12/2024 DTAP,TDAP,TD(3 - Td or Tdap) due on 12/02/2029 INFLUENZA Completed PNEUMOVAX AGE 65 AND OVER WITH 5YR LOOKBACK Completed SHINGRIX VACCINE Completed COVID-19 VACCINE Completed MENINGOCOCCAL CONJUGATE Aged Out Data reviewed n/a ASSESSMENT/PLAN: 1. Preop examination - ICD9: V72.84, ICD10: Z01.818 (primary diagnosis) Patient medically cleared for surgery pending labs and Cardiac clearance. Will need clearance from cardio. Patient has this scheduled. 2. DDD (degenerative disc disease), lumbar - ICD9: 722.52, ICD10: M51.36 See above. 3. Coronary artery disease involving solomon coronary artery of solomon heart without angina pectoris - ICD9: 414.01, ICD10: I25.10 Continue with cardio 4. Paroxysmal atrial fibrillation (HCC) - ICD9: 427.31, ICD10: I48.0 Continue with cardio 5. Elevated hemoglobin A1c - ICD9: 790.29, ICD10: R73.09 Check labs 6. Hyperlipidemia, mixed - ICD9: 272.2, ICD10: E78.2 Await labs. Sharda Carl PA-C documented in this encounter [facility] 12-10-2021 History of Present illness Narrative Patient is here for IVAD port flush per [facility] protocol. IVAD is located in right upper chest. Site cleansed with Chloraprep IVAD accessed with a #20 gauge 3/4 non-coring Gripper needle Blood Return: Good Flushed with: 20 ml Normal Saline and 5 ml Heparin Lock Flush Non-coring needle removed. Paper tape applied to puncture site. Port site negative for redness, edema or tenderness. Patient tolerated procedure well. documented in this encounter [facility] 12-08-2021 History of Present illness Narrative Chief Complaint Patient presents with: Recheck: depression HPI Sam Hagen is a 81 year old male who presents here today for Above Complaints.. Patient here to today to f/u on medical management of his situational depression. When last seen about 5 weeks ago I increased the Remeron from 15 mg a day to 30 mg Day. He feels for the most part he is doing better with the medication. He has used a atarax as needed and this has been helpful when needed. Right lower back still bothering him. Seeing Hugo caballero. Plan is for surgery in the near future. Past medical history, appointments, medications, allergies reviewed. Previous Medical History PAST MEDICAL HISTORY Diagnosis Date A-fib ([facility]) s/p colectomy 2016. 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 Bagley BPH with obstruction/lower urinary tract symptoms BPH with obstruction/lower urinary tract symptoms Dr. Hendrix Chronic midline back pain 10/20/2017 Cog-wheel rigidity 06/18/2019 left upper extrmity, right upper extremity lead piping Cognitive impairment, mild, so stated 06/18/2019 Colon cancer ([facility]) 06/30/[address] Greenberg, Had extension into the bladder wall and hd a partial cystectomy. Colostomy care ([facility]) 09/25/[address] ([facility]) 09/25/2017 Coronary artery disease involving solomon coronary artery 09/25/[address] Huntley-Hugo [id number] Elevated hemoglobin A1c 07/30/2018 Essential hypertension 04/02/2011 Essential tremor 08/16/2019 Generalized weakness 06/18/2019 H/O heart artery stent 09/25/2017 4 stents 1993 History of DVT (deep vein thrombosis) 09/25/2017 1st clot end of Aug 2017, started on Eliquis 09/15/2017 needs to be on till 03/15/2018 S/P colectomy History of GA (myocardial infarction) 1993 History of prostate cancer seeing Dr. 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 Situational depression 08/17/2019 Resolved as of 02/2020 Tarsal tunnel syndrome of right side 06/23/2019 NCS 06/23/2019 Previous Surgical History PAST SURGICAL HISTORY Procedure Laterality Date ANGIOPLASTY 11/13/1993 CARPAL TUNNEL Bilateral CATARACT EXTRACTION HX Bilateral right 2016 and left 2018 CYSTOSCOPY AND TREATMENT botox injection ECHOCARDIOGRAM 07/05/2017 HEART CATHETERIZATION 02/24/2002 LAPAROSCOPY SURG RPR INITIAL INGUINAL HERNIA 01/11/09 PAST SURGICAL HISTORY OF 07/03/2017 COLECTOMY ABDOMINAL W/O PROCTECTOMY W/ ILEOSTOMY/ILEOPROCTOSTOMY, TOTAL RECONSTRUCTION ROTATOR CUFF AVULSION CHRONIC left RPR INGUN HERNIA SLIDING ANY AGE LIH RPR UMBILICAL HRNA 5 YRS/> REDUCIBLE 01/11/09 SIGMOIDOSCOPY 07/02/2017 and 07/2019 moderately differentiated adenocarcinoma-sigmoid colon mass Family History FAMILY HISTORY Problem Relation Age of Onset Prostate Cancer Father Cancer Father skin Heart Mother [place] late 50's Stroke Mother Diabetes Mother Patient Allergies ALLERGIES No Known Allergies Current Medications Current Outpatient Medications on File Prior to Visit Medication Sig hydrOXYzine HCl (ATARAX) 10 mg tablet Take 1 tablet by mouth three times daily as needed. ammonium lactate (LAC-HYDRIN) 12 % lotion Apply to affected area as needed for Dry Skin. mirtazapine (REMERON) 30 mg tablet Take 1 tablet by mouth daily at bedtime. traZODone (DESYREL) 50 mg tablet Take 1 tablet by mouth daily at bedtime. atenolol (TENORMIN) 25 mg tablet Take 0.5 tablets by mouth once daily. traMADol (ULTRAM) 50 mg tablet Take 100 mg by mouth twice daily as needed. tamsulosin ER (FLOMAX) 0.4 mg Take 0.4 mg by mouth once daily. Psyllium Seed-Sucrose (FIBER SMOOTH) powd Take 2 Tablespoonsful by mouth twice daily. (Patient taking differently: Take 2 Tablespoonsful by mouth twice daily as needed (constipation). As needed) solifenacin 10 mg tablet Take 10 mg by mouth once daily. isosorbide mononitrate ER (IMDUR) 60 mg 24 hr tablet Take 60 mg by mouth once daily. alpha tocopheryl acetate (VITAMIN E) 400 unit capsule Take 400 Units by mouth once daily. aspirin, enteric coated (ASPIRIN, ENTERIC COATED) 81 mg EC tablet Take 81 mg by mouth once daily. simvastatin (ZOCOR) 40 mg tablet Take 1 tablet by mouth daily at bedtime. gabapentin (NEURONTIN) 300 mg capsule Take 1 capsule by mouth twice daily for 90 days. buprenorphine 7.5 mcg/hour ptwk Apply 1 Patch as directed one time a week. naproxen (NAPROSYN ORAL) Take 1 tablet by mouth once daily as needed. diclofenac sodium (VOLTAREN) 1 % topical gel Apply 2 g to affected area four times daily as needed (pain, discomfort). No current facility-administered medications on file prior to visit. Social History Social History Tobacco Use Smoking status: Never Smoker Smokeless tobacco: Current User Types: Chew Vaping Use Vaping Use: Never used Substance Use Topics Alcohol use: Yes Alcohol/week: 2.0 standard drinks Types: 2 Shots of liquor per week Drug use: No Review of Symptoms REVIEW OF SYSTEMS See HPI EXAM: BP 132/66 Pulse 78 Resp 14 Wt 78.9 kg (174 lb) BMI 27.25 kg/m Last 5 Encounter Wt Readings: Date: Wt: 12/08/2021 78.9 kg (174 lb) 11/14/2021 77.6 kg (171 lb) 10/25/2021 76.2 kg (168 lb) 09/24/2021 76.7 kg (169 lb) 08/30/2021 78 kg (172 lb) General Appearance: Well appearing, alert, in no acute distress, well-hydrated, well nourished.. Lungs: Lungs clear to auscultation. No wheezing, rhonchi, rales.. Heart: RRR without murmur, gallop, or rubs. No ectopy. Extremities: No deformities, edema, skin discoloration, clubbing or cyanosis. Good capillary refill. . Health Maintenance List ADVANCE DIRECTIVE DISCUSSION Never done LDL CHOLESTEROL due on 11/30/2021 DIABETES SCREEN due on 11/12/2024 DTAP,TDAP,TD(3 - Td or Tdap) due on 12/02/2029 INFLUENZA Completed PNEUMOVAX AGE 65 AND OVER WITH 5YR LOOKBACK Completed SHINGRIX VACCINE Completed COVID-19 VACCINE Completed MENINGOCOCCAL CONJUGATE Aged Out Data reviewed A/P ASSESSMENT/PLAN: 1. Situational depression - ICD9: 309.0, ICD10: F43.21 - Patient seems to be doing much better with the Remeron. Will not make any further changes at this time. 2. Malnutrition of moderate degree (HCC) - ICD9: 263.0, ICD10: E44.0 - Weight is better. Resolved. Will monitor. Signed Prescriptions Disp Refills atenolol (TENORMIN) 25 mg tablet 30 tablet 5 Sig: Take 0.5 tablets by mouth once daily. BRADFORD: No hydrOXYzine HCl (ATARAX) 10 mg tablet 60 tablet 5 Sig: Take 1 tablet by mouth three times daily as needed. [place]: No Keep f/u at end december Vishal Jones MD documented in this encounter [facility] 12-05-2021 Miscellaneous Notes Pharmacy verified in [facility] Patient has been identified by name and date of : Yes Patient aware RX will be sent to pharmacy. No need to notify patient. Patient phones for refill(s): Pending Prescriptions Disp Refills HYDROXYZINE HCL 10 MG TABLET 60 tablet 0 Sig: Take 1 tablet by mouth three times daily as needed. BR[place]: No Date of last office visit : 10/25/2021 Date of next office visit : 12/08/2021 Last 2 Encounter Wt Readings: Date: Wt: 11/14/2021 77.6 kg (171 lb) 10/25/2021 76.2 kg (168 lb) Please advise. Shannon Mcrae Pss documented in this encounter [facility] 09-24-2021 Note HNO ID: [id number] Author: Maye Gonzalez MD Service: ? Author Type: Physician Type: Progress Notes Filed: 09/24/2021 10:02 AM Note Text: Brittny Gonzalez MD General Surgery [address] [place] [address], [address] [place], [place] [address] Patient referred by: Maye Gonzalez [facility] [place] [phone] HPI: Mr. 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 He underwent a subtotal colectomy with partial cystectomy and end ileostomy. In July 2019 he developed a pelvic recurrence and underwent excision of the upper portion of his rectum and part of the bladder. In July 2020 he underwent repair of a parastomal hernia which was complicated by an enteric leak requiring reoperation. Today he is doing well and has no complaints. His LLQ ileostomy is functioning normally. His upper abdominal midline hernia is unchanged- reduces, nontender with no pain or nausea. 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 He had a CT of his chest in AUG which showed no acute problems. His CEA level remains normal- 1.3 He does continue to have some minimal serous type drainage from his rectum which is unchanged over the last year or so. He has had no changes in his urination pattern. His overall medical health is stable although he does have some balance issues requiring careful ambulation with a cane PAST MEDICAL HISTORY Diagnosis Date - A-fib ([facility]) s/p colectomy 2016. 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 Bagley - BPH with obstruction/lower urinary tract symptoms - BPH with obstruction/lower urinary tract symptoms Dr. Hendrix - Chronic midline back pain 10/20/2017 - Cog-wheel rigidity 06/18/2019 left upper extrmity, right upper extremity lead piping - Cognitive impairment, mild, so stated 06/18/2019 - Colon cancer ([facility]) 06/30/[address] Greenberg, Had extension into the bladder wall and hd a partial cystectomy. - Colostomy care ([facility]) 09/25/2017 - Colostomy in place ([facility]) 09/25/2017 - Coronary artery disease involving solomon coronary artery 09/25/[address] Huntley-Hugo [id number] - Elevated hemoglobin A1c 07/30/2018 - Essential hypertension 04/02/2011 - Essential tremor 08/16/2019 - Generalized weakness 06/18/2019 - H/O heart artery stent 09/25/2017 4 stents 1993 - History of DVT (deep vein thrombosis) 09/25/2017 1st clot end of Aug 2017, started on Eliquis 09/15/2017 needs to be on till 03/15/2018 S/P colectomy - History of GA (myocardial infarction) 1993 - History of prostate cancer seeing Dr. 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 - Situational depression 08/17/2019 Resolved as of 02/2020 - Tarsal tunnel syndrome of right side 06/23/2019 NCS 06/23/2019 PAST SURGICAL HISTORY Procedure Laterality Date - ANGIOPLASTY 11/13/1993 - CARPAL TUNNEL Bilateral - CATARACT EXTRACTION HX Bilateral right 2016 and left 2018 - CYSTOSCOPY AND TREATMENT botox injection - ECHOCARDIOGRAM 07/05/2017 - HEART CATHETERIZATION 02/24/2002 - LAP REPAIR INTIAL INGUINAL HERNIA 01/11/09 - PAST SURGICAL HISTORY OF 07/03/2017 COLECTOMY ABDOMINAL W/O PROCTECTOMY W/ ILEOSTOMY/ILEOPROCTOSTOMY, TOTAL - REPAIR COMPL ROTATOR CUFF AVULSN,CHR left - REPAIR SLIDING INGUINAL HERNIA LIH - REPAIR UMBILICAL ANNA,5+Y/O,REDUC 01/11/09 - SIGMOIDOSCOPY 07/02/2017 and 07/2019 moderately differentiated adenocarcinoma-sigmoid colon mass FAMILY HISTORY Problem Relation Age of Onset - Prostate Cancer Father - Cancer Father skin - Heart Mother [place] late 50's - Stroke Mother - Diabetes Mother Social History Tobacco Use - Smoking status: Never Smoker - Smokeless tobacco: Current User Types: Chew Vaping Use - Vaping Use: Never used Substance Use Topics - Alcohol use: Yes Alcohol/week: 2.0 standard drinks Types: 2 Shots of liquor per week - Drug use: No Current Outpatient Medications Medication Sig - mirtazapine (REMERON) 15 m (more content not included)... [facility] documented as of this encounter (statuses as of 12/08/2021) [facility] History of Past illness Narrative* Problem Noted Date Resolved Date Malnutrition of moderate degree 08/20/2020 12/08/2021 Pneumonia 07/19/2017 07/19/2017 Acute respiratory failure with hypoxia 7 07/10/2017 Aspiration pneumonitis 07/03/2017 7 Bowel obstruction 06/30/2017 07/10/2017 documented as of this encounter (statuses as of 12/10/2021) [facility] History of Past illness Narrative* Problem Noted Date Resolved Date Malnutrition of moderate degree 08/20/2020 12/08/2021 Pneumonia 07/19/2017 07/19/2017 Acute respiratory failure with hypoxia 7 07/10/2017 Aspiration pneumonitis 07/03/2017 7 Bowel obstruction 06/30/2017 07/10/2017 documented as of this encounter (statuses as of 12/14/2021) [facility] History of Past illness Narrative* Problem Noted Date Resolved Date Malnutrition of moderate degree 08/20/2020 12/08/2021 Pneumonia 07/19/2017 07/19/2017 Acute respiratory failure with hypoxia 7 07/10/2017 Aspiration pneumonitis 07/03/2017 7 Bowel obstruction 06/30/2017 07/10/2017 documented as of this encounter (statuses as of 01/07/2022) [facility] History of Past illness Narrative* Problem Noted Date Resolved Date Malnutrition of moderate degree 08/20/2020 12/08/2021 Pneumonia 07/19/2017 07/19/2017 Acute respiratory failure with hypoxia 7 07/10/2017 Aspiration pneumonitis 07/03/2017 7 Bowel obstruction 06/30/2017 07/10/2017 documented as of this encounter (statuses as of 01/08/2022) [facility] History of Past illness Narrative* Problem Noted Date Resolved Date Malnutrition of moderate degree 08/20/2020 12/08/2021 Pneumonia 07/19/2017 07/19/2017 Acute respiratory failure with hypoxia 7 07/10/2017 Aspiration pneumonitis 07/03/2017 7 Bowel obstruction 06/30/2017 07/10/2017 documented as of this encounter (statuses as of 01/17/2022) [facility] History of Past illness Narrative* Problem Noted Date Resolved Date Malnutrition of moderate degree 08/20/2020 12/08/2021 Pneumonia 07/19/2017 07/19/2017 Acute respiratory failure with hypoxia 7 07/10/2017 Aspiration pneumonitis 07/03/2017 7 Bowel obstruction 06/30/2017 07/10/2017 documented as of this encounter (statuses as of 01/22/2022) [facility] History of Past illness Narrative* Problem Noted Date Resolved Date Malnutrition of moderate degree 08/20/2020 12/08/2021 Pneumonia 07/19/2017 07/19/2017 Acute respiratory failure with hypoxia 7 07/10/2017 Aspiration pneumonitis 07/03/2017 7 Bowel obstruction 06/30/2017 07/10/2017 documented as of this encounter (statuses as of 01/31/2022) [facility] of Past illness Narrative* Problem Noted Date Resolved Date Malnutrition of moderate degree 08/20/2020 12/08/2021 Pneumonia 07/19/2017 07/19/2017 Acute respiratory failure with hypoxia 7 07/10/2017 Aspiration pneumonitis 07/03/2017 7 Bowel obstruction 06/30/2017 07/10/2017 documented as of this encounter (statuses as of 02/06/2022) [facility] History of Past illness Narrative* Problem Noted Date Resolved Date Malnutrition of moderate degree 08/20/2020 12/08/2021 Pneumonia 07/19/2017 07/19/2017 Acute respiratory failure with hypoxia 7 07/10/2017 Aspiration pneumonitis 07/03/2017 7 Bowel obstruction 06/30/2017 07/10/2017 documented as of this encounter (statuses as of 02/26/2022) [facility] of Past illness Narrative* Problem Noted Date Resolved Date Malnutrition of moderate degree 08/20/2020 12/08/2021 Pneumonia 07/19/2017 07/19/2017 Acute respiratory failure with hypoxia 7 07/10/2017 Aspiration pneumonitis 07/03/2017 7 Bowel obstruction 06/30/2017 07/10/2017 documented as of this encounter (statuses as of 02/27/2022) [facility] of Past illness Narrative* Problem Noted Date Resolved Date Malnutrition of moderate degree 08/20/2020 12/08/2021 Pneumonia 07/19/2017 07/19/2017 Acute respiratory failure with hypoxia 7 07/10/2017 Aspiration pneumonitis 07/03/2017 7 Bowel obstruction 06/30/2017 07/10/2017 documented as of this encounter (statuses as of 02/27/2022) [facility] of Past illness Narrative* Problem Noted Date Resolved Date Malnutrition of moderate degree 08/20/2020 12/08/2021 Pneumonia 07/19/2017 07/19/2017 Acute respiratory failure with hypoxia 7 07/10/2017 Aspiration pneumonitis 07/03/2017 7 Bowel obstruction 06/30/2017 07/10/2017 documented as of this encounter (statuses as of 03/08/2022) [facility] of Past illness Narrative* Problem Noted Date Resolved Date Malnutrition of moderate degree 08/20/2020 12/08/2021 Pneumonia 07/19/2017 07/19/2017 Acute respiratory failure with hypoxia 7 07/10/2017 Aspiration pneumonitis 07/03/2017 7 Bowel obstruction 06/30/2017 07/10/2017 documented as of this encounter (statuses as of 03/21/2022) [facility] of Past illness Narrative* Problem Noted Date Resolved Date Malnutrition of moderate degree 08/20/2020 12/08/2021 Pneumonia 07/19/2017 07/19/2017 Acute respiratory failure with hypoxia 7 07/10/2017 Aspiration pneumonitis 07/03/2017 7 Bowel obstruction 06/30/2017 07/10/2017 documented as of this encounter (statuses as of 03/21/2022) [facility] of Past illness Narrative* Problem Noted Date Resolved Date Malnutrition of moderate degree 08/20/2020 12/08/2021 Pneumonia 07/19/2017 07/19/2017 Acute respiratory failure with hypoxia 7 07/10/2017 Aspiration pneumonitis 07/03/2017 7 Bowel obstruction 06/30/2017 07/10/2017 documented as of this encounter (statuses as of 03/25/2022) [facility] of Past illness Narrative* Problem Noted Date Resolved Date Malnutrition of moderate degree 08/20/2020 12/08/2021 Pneumonia 07/19/2017 07/19/2017 Acute respiratory failure with hypoxia 7 07/10/2017 Aspiration pneumonitis 07/03/2017 7 Bowel obstruction 06/30/2017 07/10/2017 documented as of this encounter (statuses as of 03/28/2022) [facility] of Past illness Narrative* Problem Noted Date Resolved Date Malnutrition of moderate degree 08/20/2020 12/08/2021 Pneumonia 07/19/2017 07/19/2017 Acute respiratory failure with hypoxia 7 07/10/2017 Aspiration pneumonitis 07/03/2017 7 Bowel obstruction 06/30/2017 07/10/2017 documented as of this encounter (statuses as of 04/11/2022) [facility] of Past illness Narrative* Problem Noted Date Resolved Date Malnutrition of moderate degree 08/20/2020 12/08/2021 Pneumonia 07/19/2017 07/19/2017 Acute respiratory failure with hypoxia 7 07/10/2017 Aspiration pneumonitis 07/03/2017 7 Bowel obstruction 06/30/2017 07/10/2017 documented as of this encounter (statuses as of 04/18/2022) [facility] of Past illness Narrative* Problem Noted Date Resolved Date Malnutrition of moderate degree 08/20/2020 12/08/2021 Pneumonia 07/19/2017 07/19/2017 Acute respiratory failure with hypoxia 7 07/10/2017 Aspiration pneumonitis 07/03/2017 7 Bowel obstruction 06/30/2017 07/10/2017 documented as of this encounter (statuses as of 04/30/2022) [facility] of Past illness Narrative* Problem Noted Date Resolved Date Malnutrition of moderate degree 08/20/2020 12/08/2021 Pneumonia 07/19/2017 07/19/2017 Acute respiratory failure with hypoxia 7 07/10/2017 Aspiration pneumonitis 07/03/2017 7 Bowel obstruction 06/30/2017 07/10/2017 documented as of this encounter (statuses as of 05/06/2022) [facility] of [facility] illness Narrative* Problem Noted Date Resolved Date Malnutrition of moderate degree 08/20/2020 12/08/2021 Pneumonia 07/19/2017 07/19/2017 Acute respiratory failure with hypoxia 7 07/10/2017 Aspiration pneumonitis 07/03/2017 7 Bowel obstruction 06/30/2017 07/10/2017 documented as of this encounter (statuses as of 05/15/2022) [facility] of [facility] illness Narrative* Problem Noted Date Resolved Date Malnutrition of moderate degree 08/20/2020 12/08/2021 Pneumonia 07/19/2017 07/19/2017 Acute respiratory failure with hypoxia 7 07/10/2017 Aspiration pneumonitis 07/03/2017 7 Bowel obstruction 06/30/2017 07/10/2017 documented as of this encounter (statuses as of 06/06/2022) [facility] of Past illness Narrative* Problem Noted Date Resolved Date Malnutrition of moderate degree 08/20/2020 12/08/2021 Pneumonia 07/19/2017 07/19/2017 Acute respiratory failure with hypoxia 7 07/10/2017 Aspiration pneumonitis 07/03/2017 7 Bowel obstruction 06/30/2017 07/10/2017 documented as of this encounter (statuses as of 06/20/2022) [facility] of Past illness Narrative* Problem Noted Date Resolved Date Malnutrition of moderate degree 08/20/2020 12/08/2021 Pneumonia 07/19/2017 07/19/2017 Acute respiratory failure with hypoxia 7 07/10/2017 Aspiration pneumonitis 07/03/2017 7 Bowel obstruction 06/30/2017 07/10/2017 documented as of this encounter (statuses as of 07/15/2022) [facility]12-[facility]2020 History of Past illness Narrative* Problem Noted Date Resolved Date Malnutrition of moderate degree 08/20/2020 12/08/2021 Pneumonia 07/19/2017 07/19/2017 Acute respiratory failure with hypoxia 7 07/10/2017 Aspiration pneumonitis 07/03/2017 7 Bowel obstruction 06/30/2017 07/10/2017 documented as of this encounter (statuses as of 07/18/2022) [facility] History of Past illness Narrative* Problem Noted Date Resolved Date Malnutrition of moderate degree 08/20/2020 12/08/2021 Pneumonia 07/19/2017 07/19/2017 Acute respiratory failure with hypoxia 7 07/10/2017 Aspiration pneumonitis 07/03/2017 7 Bowel obstruction 06/30/2017 07/10/2017 documented as of this encounter (statuses as of 07/25/2022) [facility] History of Past illness Narrative* Problem Noted Date Resolved Date Malnutrition of moderate degree 08/20/2020 12/08/2021 Pneumonia 07/19/2017 07/19/2017 Acute respiratory failure with hypoxia 7 07/10/2017 Aspiration pneumonitis 07/03/2017 7 Bowel obstruction 06/30/2017 07/10/2017 documented as of this encounter (statuses as of 07/29/2022) [facility] History of Past illness Narrative* Problem Noted Date Resolved Date Malnutrition of moderate degree 08/20/2020 12/08/2021 Pneumonia 07/19/2017 07/19/2017 Acute respiratory failure with hypoxia 7 07/10/2017 Aspiration pneumonitis 07/03/2017 7 Bowel obstruction 06/30/2017 07/10/2017 documented as of this encounter (statuses as of 07/30/2022) [facility] History of Past illness Narrative* Problem Noted Date Resolved Date Malnutrition of moderate degree 08/20/2020 12/08/2021 Pneumonia 07/19/2017 07/19/2017 Acute respiratory failure with hypoxia 7 07/10/2017 Aspiration pneumonitis 07/03/2017 7 Bowel obstruction 06/30/2017 07/10/2017 documented as of this encounter (statuses as of 08/19/2022) [facility] History of Past illness Narrative* Problem Noted Date Resolved Date Malnutrition of moderate degree 08/20/2020 12/08/2021 Pneumonia 07/19/2017 07/19/2017 Acute respiratory failure with hypoxia 7 07/10/2017 Aspiration pneumonitis 07/03/2017 7 Bowel obstruction 06/30/2017 07/10/2017 documented as of this encounter (statuses as of 08/21/2022) [facility] History of Past illness Narrative* Problem Noted Date Resolved Date Malnutrition of moderate degree 08/20/2020 12/08/2021 Pneumonia 07/19/2017 07/19/2017 Acute respiratory failure with hypoxia 7 07/10/2017 Aspiration pneumonitis 07/03/2017 7 Bowel obstruction 06/30/2017 07/10/2017 documented as of this encounter (statuses as of 08/27/2022) [facility] History of Past illness Narrative* Problem Noted Date Resolved Date Malnutrition of moderate degree 08/20/2020 12/08/2021 Pneumonia 07/19/2017 07/19/2017 Acute respiratory failure with hypoxia 7 07/10/2017 Aspiration pneumonitis 07/03/2017 7 Bowel obstruction 06/30/2017 07/10/2017 documented as of this encounter (statuses as of 09/16/2022) [facility] History of Past illness Narrative* Problem Noted Date Resolved Date Malnutrition of moderate degree 08/20/2020 12/08/2021 Pneumonia 07/19/2017 07/19/2017 Acute respiratory failure with hypoxia 7 07/10/2017 Aspiration pneumonitis 07/03/2017 7 Bowel obstruction 06/30/2017 07/10/2017 documented as of this encounter (statuses as of 09/18/2022) [facility] History of Past illness Narrative* Problem Noted Date Resolved Date Malnutrition of moderate degree 08/20/2020 12/08/2021 Pneumonia 07/19/2017 07/19/2017 Acute respiratory failure with hypoxia 7 07/10/2017 Aspiration pneumonitis 07/03/2017 7 Bowel obstruction 06/30/2017 07/10/2017 documented as of this encounter (statuses as of 09/24/2022) [facility] History of Past illness Narrative* Problem Noted Date Resolved Date Malnutrition of moderate degree 08/20/2020 12/08/2021 Pneumonia 07/19/2017 07/19/2017 Acute respiratory failure with hypoxia 7 07/10/2017 Aspiration pneumonitis 07/03/2017 7 Bowel obstruction 06/30/2017 07/10/2017 documented as of this encounter (statuses as of 09/27/2022) [facility] History of Past illness Narrative* Problem Noted Date Resolved Date Malnutrition of moderate degree 08/20/2020 12/08/2021 Pneumonia 07/19/2017 07/19/2017 Acute respiratory failure with hypoxia 7 07/10/2017 Aspiration pneumonitis 07/03/2017 7 Bowel obstruction 06/30/2017 07/10/2017 documented as of this encounter (statuses as of 09/30/2022) [facility] History of Past illness Narrative* Problem Noted Date Resolved Date Malnutrition of moderate degree 08/20/2020 12/08/2021 Pneumonia 07/19/2017 07/19/2017 Acute respiratory failure with hypoxia 7 07/10/2017 Aspiration pneumonitis 07/03/2017 7 Bowel obstruction 06/30/2017 07/10/2017 documented as of this encounter (statuses as of 10/09/2022) [facility] History of Past illness Narrative* Problem Noted Date Resolved Date Malnutrition of moderate degree 08/20/2020 12/08/2021 Pneumonia 07/19/2017 07/19/2017 Acute respiratory failure with hypoxia 7 07/10/2017 Aspiration pneumonitis 07/03/2017 7 Bowel obstruction 06/30/2017 07/10/2017 documented as of this encounter (statuses as of 10/11/2022) [facility] History of Past illness Narrative* Problem Noted Date Resolved Date Malnutrition of moderate degree 08/20/2020 12/08/2021 Pneumonia 07/19/2017 07/19/2017 Acute respiratory failure with hypoxia 7 07/10/2017 Aspiration pneumonitis 07/03/2017 7 Bowel obstruction 06/30/2017 07/10/2017 documented as of this encounter (statuses as of 10/21/2022) [facility] History of Past illness Narrative* Problem Noted Date Resolved Date Malnutrition of moderate degree 08/20/2020 12/08/2021 Pneumonia 07/19/2017 07/19/2017 Acute respiratory failure with hypoxia 7 07/10/2017 Aspiration pneumonitis 07/03/2017 7 Bowel obstruction 06/30/2017 07/10/2017 documented as of this encounter (statuses as of 10/29/2022) [facility] History of Past illness Narrative* Problem Noted Date Resolved Date Malnutrition of moderate degree 08/20/2020 12/08/2021 Pneumonia 07/19/2017 07/19/2017 Acute respiratory failure with hypoxia 7 07/10/2017 Aspiration pneumonitis 07/03/2017 7 Bowel obstruction 06/30/2017 07/10/2017 documented as of this encounter (statuses as of 11/01/2022) [facility] History of Past illness Narrative* Problem Noted Date Resolved Date Malnutrition of moderate degree 08/20/2020 12/08/2021 Pneumonia 07/19/2017 07/19/2017 Acute respiratory failure with hypoxia 7 07/10/2017 Aspiration pneumonitis 07/03/2017 7 Bowel obstruction 06/30/2017 07/10/2017 documented as of this encounter (statuses as of 11/07/2022) [facility] History of Past illness Narrative* Problem Noted Date Resolved Date Malnutrition of moderate degree 08/20/2020 12/08/2021 Pneumonia 07/19/2017 07/19/2017 Acute respiratory failure with hypoxia 7 07/10/2017 Aspiration pneumonitis 07/03/2017 7 Bowel obstruction 06/30/2017 07/10/2017 documented as of this encounter (statuses as of 11/09/2022) [facility] History of Past illness Narrative* Problem Noted Date Resolved Date Malnutrition of moderate degree 08/20/2020 12/08/2021 Pneumonia 07/19/2017 07/19/2017 Acute respiratory failure with hypoxia 7 07/10/2017 Aspiration pneumonitis 07/03/2017 7 Bowel obstruction 06/30/2017 07/10/2017 documented as of this encounter (statuses as of 11/15/2022) [facility] History of Past illness Narrative* Problem Noted Date Resolved Date Malnutrition of moderate degree 08/20/2020 12/08/2021 Pneumonia 07/19/2017 07/19/2017 Acute respiratory failure with hypoxia 7 07/10/2017 Aspiration pneumonitis 07/03/2017 7 Bowel obstruction 06/30/2017 07/10/2017 documented as of this encounter (statuses as of 11/25/2022) [facility] History of Past illness Narrative* Problem Noted Date Resolved Date Malnutrition of moderate degree 08/20/2020 12/08/2021 Pneumonia 07/19/2017 07/19/2017 Acute respiratory failure with hypoxia 7 07/10/2017 Aspiration pneumonitis 07/03/2017 7 Bowel obstruction 06/30/2017 07/10/2017 documented as of this encounter (statuses as of 11/28/2022) [facility] History of Past illness Narrative* Problem Noted Date Resolved Date Malnutrition of moderate degree 08/20/2020 12/08/2021 Pneumonia 07/19/2017 07/19/2017 Acute respiratory failure with hypoxia 7 07/10/2017 Aspiration pneumonitis 07/03/2017 7 Bowel obstruction 06/30/2017 07/10/2017 documented as of this encounter (statuses as of 12/04/2022) [facility] History of Past illness Narrative* Problem Noted Date Resolved Date Malnutrition of moderate degree 08/20/2020 12/08/2021 Pneumonia 07/19/2017 07/19/2017 Acute respiratory failure with hypoxia 7 07/10/2017 Aspiration pneumonitis 07/03/2017 7 Bowel obstruction 06/30/2017 07/10/2017 documented as of this encounter (statuses as of 12/04/2022) [facility] History of Past illness Narrative* Problem Noted Date Resolved Date Malnutrition of moderate degree 08/20/2020 12/08/2021 Pneumonia 07/19/2017 07/19/2017 Acute respiratory failure with hypoxia 7 07/10/2017 Aspiration pneumonitis 07/03/2017 7 Bowel obstruction 06/30/2017 07/10/2017 documented as of this encounter (statuses as of 12/04/2022) [facility] History of Past illness Narrative* Problem Noted Date Resolved Date Malnutrition of moderate degree 08/20/2020 12/08/2021 Pneumonia 07/19/2017 07/19/2017 Acute respiratory failure with hypoxia 7 07/10/2017 Aspiration pneumonitis 07/03/2017 7 Bowel obstruction 06/30/2017 07/10/2017 documented as of this encounter (statuses as of 12/06/2022) [facility] History of Past illness Narrative* Problem Noted Date Resolved Date Malnutrition of moderate degree 08/20/2020 12/08/2021 Pneumonia 07/19/2017 07/19/2017 Acute respiratory failure with hypoxia 7 07/10/2017 Aspiration pneumonitis 07/03/2017 7 Bowel obstruction 06/30/2017 07/10/2017 documented as of this encounter (statuses as of 12/19/2022) [facility] History of Past illness Narrative* Problem Noted Date Resolved Date Malnutrition of moderate degree 08/20/2020 12/08/2021 Pneumonia 07/19/2017 07/19/2017 Acute respiratory failure with hypoxia 7 07/10/2017 Aspiration pneumonitis 07/03/2017 7 Bowel obstruction 06/30/2017 07/10/2017 documented as of this encounter (statuses as of 12/24/2022) [facility] History of Past illness Narrative* Problem Noted Date Resolved Date Malnutrition of moderate degree 08/20/2020 12/08/2021 Pneumonia 07/19/2017 07/19/2017 Acute respiratory failure with hypoxia 7 07/10/2017 Aspiration pneumonitis 07/03/2017 7 Bowel obstruction 06/30/2017 07/10/2017 documented as of this encounter (statuses as of 12/24/2022) [facility] History of Past illness Narrative* Problem Noted Date Resolved Date Malnutrition of moderate degree 08/20/2020 12/08/2021 Pneumonia 07/19/2017 07/19/2017 Acute respiratory failure with hypoxia 7 07/10/2017 Aspiration pneumonitis 07/03/2017 7 Bowel obstruction 06/30/2017 07/10/2017 documented as of this encounter (statuses as of 12/30/2022) [facility] History of Past illness Narrative* Problem Noted Date Resolved Date Malnutrition of moderate degree 08/20/2020 12/08/2021 Pneumonia 07/19/2017 07/19/2017 Acute respiratory failure with hypoxia 7 07/10/2017 Aspiration pneumonitis 07/03/2017 7 Bowel obstruction 06/30/2017 07/10/2017 documented as of this encounter (statuses as of 12/30/2022) [facility] History of Past illness Narrative* Problem Noted Date Resolved Date Malnutrition of moderate degree 08/20/2020 12/08/2021 Pneumonia 07/19/2017 07/19/2017 Acute respiratory failure with hypoxia 7 07/10/2017 Aspiration pneumonitis 07/03/2017 7 Bowel obstruction 06/30/2017 07/10/2017 documented as of this encounter (statuses as of 01/02/2023) [facility] History of Past illness Narrative* Problem Noted Date Resolved Date Malnutrition of moderate degree 08/20/2020 12/08/2021 Pneumonia 07/19/2017 07/19/2017 Acute respiratory failure with hypoxia 7 07/10/2017 Aspiration pneumonitis 07/03/2017 7 Bowel obstruction 06/30/2017 07/10/2017 documented as of this encounter (statuses as of 01/17/2023) [facility] History of Past illness Narrative* Problem Noted Date Resolved Date Malnutrition of moderate degree 08/20/2020 12/08/2021 Pneumonia 07/19/2017 07/19/2017 Acute respiratory failure with hypoxia 7 07/10/2017 Aspiration pneumonitis 07/03/2017 7 Bowel obstruction 06/30/2017 07/10/2017 documented as of this encounter (statuses as of 01/24/2023) [facility] History of Past illness Narrative* Problem Noted Date Resolved Date Malnutrition of moderate degree 08/20/2020 12/08/2021 Pneumonia 07/19/2017 07/19/2017 Acute respiratory failure with hypoxia 7 07/10/2017 Aspiration pneumonitis 07/03/2017 7 Bowel obstruction 06/30/2017 07/10/2017 documented as of this encounter (statuses as of 02/22/2023) [facility] History of Past illness Narrative* Problem Noted Date Resolved Date Malnutrition of moderate degree 08/20/2020 12/08/2021 Pneumonia 07/19/2017 07/19/2017 Acute respiratory failure with hypoxia 7 07/10/2017 Aspiration pneumonitis 07/03/2017 7 Bowel obstruction 06/30/2017 07/10/2017 documented as of this encounter (statuses as of 03/10/2023) [facility] History of Past illness Narrative* Problem Noted Date Diagnosed Date Resolved Date Malnutrition of moderate degree 08/20/2020 12/08/2021 Pneumonia 07/19/2017 07/19/2017 Acute respiratory failure with hypoxia 07/05/2017 07/10/2017 Aspiration pneumonitis 07/03/201707/10 Bowel obstruction 06/30/2017 07/10/2017 documented as of this encounter (statuses as of 03/27/2023) [facility] History of Past illness Narrative* Problem Noted Date Diagnosed Date Resolved Date Malnutrition of moderate degree 08/20/2020 12/08/2021 Pneumonia 07/19/2017 07/19/2017 Acute respiratory failure with hypoxia 07/05/2017 07/10/2017 Aspiration pneumonitis 07/03/201707/10 Bowel obstruction 06/30/2017 07/10/2017 documented as of this encounter (statuses as of 03/28/2023) [facility] History of Past illness Narrative* Problem Noted Date Diagnosed Date Resolved Date Malnutrition of moderate degree 08/20/2020 12/08/2021 Pneumonia 07/19/2017 07/19/2017 Acute respiratory failure with hypoxia 07/05/2017 07/10/2017 Aspiration pneumonitis 07/03/201707/10 Bowel obstruction 06/30/2017 07/10/2017 documented as of this encounter (statuses as of 04/01/2023) [facility] History of Past illness Narrative* Problem Noted Date Diagnosed Date Resolved Date Malnutrition of moderate degree 08/20/2020 12/08/2021 Pneumonia 07/19/2017 07/19/2017 Acute respiratory failure with hypoxia 07/05/2017 07/10/2017 Aspiration pneumonitis 07/03/201707/10 Bowel obstruction 06/30/2017 07/10/2017 documented as of this encounter (statuses as of 04/03/2023) [facility] History of Past illness Narrative* Problem Noted Date Diagnosed Date Resolved Date Malnutrition of moderate degree 08/20/2020 12/08/2021 Pneumonia 07/19/2017 07/19/2017 Acute respiratory failure with hypoxia 07/05/2017 07/10/2017 Aspiration pneumonitis 07/03/201707/10 Bowel obstruction 06/30/2017 07/10/2017 documented as of this encounter (statuses as of 04/10/2023) [facility] History of Past illness Narrative* Problem Noted Date Diagnosed Date Resolved Date Malnutrition of moderate degree 08/20/2020 12/08/2021 Pneumonia 07/19/2017 07/19/2017 Acute respiratory failure with hypoxia 07/05/2017 07/10/2017 Aspiration pneumonitis 07/03/201707/10 Bowel obstruction 06/30/2017 07/10/2017 documented as of this encounter (statuses as of 04/18/2023) [facility] History of Past illness Narrative* Problem Noted Date Diagnosed Date Resolved Date Malnutrition of moderate degree 08/20/2020 12/08/2021 Pneumonia 07/19/2017 07/19/2017 Acute respiratory failure with hypoxia 07/05/2017 07/10/2017 Aspiration pneumonitis 07/03/201707/10 Bowel obstruction 06/30/2017 07/10/2017 documented as of this encounter (statuses as of 04/18/2023) [facility] History of Past illness Narrative* Problem Noted Date Diagnosed Date Resolved Date Malnutrition of moderate degree 08/20/2020 12/08/2021 Pneumonia 07/19/2017 07/19/2017 Acute respiratory failure with hypoxia 07/05/2017 07/10/2017 Aspiration pneumonitis 07/03/201707/10 Bowel obstruction 06/30/2017 07/10/2017 documented as of this encounter (statuses as of 04/24/2023) [facility] History of Past illness Narrative* Problem Noted Date Diagnosed Date Resolved Date Malnutrition of moderate degree 08/20/2020 12/08/2021 Pneumonia 07/19/2017 07/19/2017 Acute respiratory failure with hypoxia 07/05/2017 07/10/2017 Aspiration pneumonitis 07/03/201707/10 Bowel obstruction 06/30/2017 07/10/2017 documented as of this encounter (statuses as of 05/06/2023) [facility] History of Past illness Narrative* Problem Noted Date Diagnosed Date Resolved Date Malnutrition of moderate degree 08/20/2020 12/08/2021 Pneumonia 07/19/2017 07/19/2017 Acute respiratory failure with hypoxia 07/05/2017 07/10/2017 Aspiration pneumonitis 07/03/201707/10 Bowel obstruction 06/30/2017 07/10/2017 documented as of this encounter (statuses as of 05/08/2023) [facility] History of Past illness Narrative* Problem Noted Date Diagnosed Date Resolved Date Malnutrition of moderate degree 08/20/2020 12/08/2021 Pneumonia 07/19/2017 07/19/2017 Acute respiratory failure with hypoxia 07/05/2017 07/10/2017 Aspiration pneumonitis 07/03/201707/10 Bowel obstruction 06/30/2017 07/10/2017 documented as of this encounter (statuses as of 05/08/2023) [facility] History of Past illness Narrative* Problem Noted Date Diagnosed Date Resolved Date Malnutrition of moderate degree 08/20/2020 12/08/2021 Pneumonia 07/19/2017 07/19/2017 Acute respiratory failure with hypoxia 07/05/2017 07/10/2017 Aspiration pneumonitis 07/03/201707/10 Bowel obstruction 06/30/2017 07/10/2017 documented as of this encounter (statuses as of 05/09/2023) [facility] History of Past illness Narrative* Problem Noted Date Diagnosed Date Resolved Date Malnutrition of moderate degree 08/20/2020 12/08/2021 Pneumonia 07/19/2017 07/19/2017 Acute respiratory failure with hypoxia 07/05/2017 07/10/2017 Aspiration pneumonitis 07/03/201707/10 Bowel obstruction 06/30/2017 07/10/2017 documented as of this encounter (statuses as of 05/09/2023) [facility] History of Past illness Narrative* Problem Noted Date Diagnosed Date Resolved Date Malnutrition of moderate degree 08/20/2020 12/08/2021 Pneumonia 07/19/2017 07/19/2017 Acute respiratory failure with hypoxia 07/05/2017 07/10/2017 Aspiration pneumonitis 07/03/201707/10 Bowel obstruction 06/30/2017 07/10/2017 documented as of this encounter (statuses as of 05/10/2023) [facility] History of Past illness Narrative* Problem Noted Date Diagnosed Date Resolved Date Malnutrition of moderate degree 08/20/2020 12/08/2021 Pneumonia 07/19/2017 07/19/2017 Acute respiratory failure with hypoxia 07/05/2017 07/10/2017 Aspiration pneumonitis 07/03/201707/10 Bowel obstruction 06/30/2017 07/10/2017 documented as of this encounter (statuses as of 05/13/2023) [facility] History of Past illness Narrative* Problem Noted Date Diagnosed Date Resolved Date Malnutrition of moderate degree 08/20/2020 12/08/2021 Pneumonia 07/19/2017 07/19/2017 Acute respiratory failure with hypoxia 07/05/2017 07/10/2017 Aspiration pneumonitis 07/03/201707/10 Bowel obstruction 06/30/2017 07/10/2017 documented as of this encounter (statuses as of 05/13/2023) [facility] History of Past illness Narrative* Problem Noted Date Diagnosed Date Resolved Date Malnutrition of moderate degree 08/20/2020 12/08/2021 Pneumonia 07/19/2017 07/19/2017 Acute respiratory failure with hypoxia 07/05/2017 07/10/2017 Aspiration pneumonitis 07/03/201707/10 Bowel obstruction 06/30/2017 07/10/2017 documented as of this encounter (statuses as of 05/16/2023) [facility] History of Past illness Narrative* Problem Noted Date Diagnosed Date Resolved Date Malnutrition of moderate degree 08/20/2020 12/08/2021 Pneumonia 07/19/2017 07/19/2017 Acute respiratory failure with hypoxia 07/05/2017 07/10/2017 Aspiration pneumonitis 07/03/201707/10 Bowel obstruction 06/30/2017 07/10/2017 documented as of this encounter (statuses as of 05/20/2023) [facility] History of Past illness Narrative* Problem Noted Date Diagnosed Date Resolved Date Malnutrition of moderate degree 08/20/2020 12/08/2021 Pneumonia 07/19/2017 07/19/2017 Acute respiratory failure with hypoxia 07/05/2017 07/10/2017 Aspiration pneumonitis 07/03/201707/10 Bowel obstruction 06/30/2017 07/10/2017 documented as of this encounter (statuses as of 05/30/2023) [facility] History of Past illness Narrative* Problem Noted Date Diagnosed Date Resolved Date Malnutrition of moderate degree 08/20/2020 12/08/2021 Pneumonia 07/19/2017 07/19/2017 Acute respiratory failure with hypoxia 07/05/2017 07/10/2017 Aspiration pneumonitis 07/03/201707/10 Bowel obstruction 06/30/2017 07/10/2017 documented as of this encounter (statuses as of 06/03/2023) [facility] History of Past illness Narrative* Problem Noted Date Diagnosed Date Resolved Date Malnutrition of moderate degree 08/20/2020 12/08/2021 Pneumonia 07/19/2017 07/19/2017 Acute respiratory failure with hypoxia 07/05/2017 07/10/2017 Aspiration pneumonitis 07/03/201707/10 Bowel obstruction 06/30/2017 07/10/2017 documented as of this encounter (statuses as of 06/05/2023) [facility] History of Past illness Narrative* Problem Noted Date Diagnosed Date Resolved Date Malnutrition of moderate degree 08/20/2020 12/08/2021 Pneumonia 07/19/2017 07/19/2017 Acute respiratory failure with hypoxia 07/05/2017 07/10/2017 Aspiration pneumonitis 07/03/201707/10 Bowel obstruction 06/30/2017 07/10/2017 documented as of this encounter (statuses as of 06/09/2023) [facility] History of Past illness Narrative* Problem Noted Date Diagnosed Date Resolved Date Malnutrition of moderate degree 08/20/2020 12/08/2021 Pneumonia 07/19/2017 07/19/2017 Acute respiratory failure with hypoxia 07/05/2017 07/10/2017 Aspiration pneumonitis 07/03/201707/10 Bowel obstruction 06/30/2017 07/10/2017 documented as of this encounter (statuses as of 06/27/2023) [facility] History of Past illness Narrative* Problem Noted Date Diagnosed Date Resolved Date Malnutrition of moderate degree 08/20/2020 12/08/2021 Pneumonia 07/19/2017 07/19/2017 Acute respiratory failure with hypoxia 07/05/2017 07/10/2017 Aspiration pneumonitis 07/03/201707/10 Bowel obstruction 06/30/2017 07/10/2017 documented as of this encounter (statuses as of 06/30/2023) [facility] History of Past illness Narrative* Problem Noted Date Diagnosed Date Resolved Date Malnutrition of moderate degree 08/20/2020 12/08/2021 Pneumonia 07/19/2017 07/19/2017 Acute respiratory failure with hypoxia 07/05/2017 07/10/2017 Aspiration pneumonitis 07/03/201707/10 Bowel obstruction 06/30/2017 07/10/2017 documented as of this encounter (statuses as of 07/01/2023) [facility] History of Past illness Narrative* Problem Noted Date Diagnosed Date Resolved Date Malnutrition of moderate degree 08/20/2020 12/08/2021 Pneumonia 07/19/2017 07/19/2017 Acute respiratory failure with hypoxia 07/05/2017 07/10/2017 Aspiration pneumonitis 07/03/201707/10 Bowel obstruction 06/30/2017 07/10/2017 documented as of this encounter (statuses as of 07/09/2023) [facility] History of Past illness Narrative* Problem Noted Date Diagnosed Date Resolved Date Malnutrition of moderate degree 08/20/2020 12/08/2021 Pneumonia 07/19/2017 07/19/2017 Acute respiratory failure with hypoxia 07/05/2017 07/10/2017 Aspiration pneumonitis 07/03/201707/10 Bowel obstruction 06/30/2017 07/10/2017 documented as of this encounter (statuses as of 07/15/2023) [facility] History of Past illness Narrative* Problem Noted Date Diagnosed Date Resolved Date Malnutrition of moderate degree 08/20/2020 12/08/2021 Pneumonia 07/19/2017 07/19/2017 Acute respiratory failure with hypoxia 07/05/2017 07/10/2017 Aspiration pneumonitis 07/03/201707/10 Bowel obstruction 06/30/2017 07/10/2017 documented as of this encounter (statuses as of 07/16/2023) [facility] History of Past illness Narrative* Problem Noted Date Diagnosed Date Resolved Date Malnutrition of moderate degree 08/20/2020 12/08/2021 Pneumonia 07/19/2017 07/19/2017 Acute respiratory failure with hypoxia 07/05/2017 07/10/2017 Aspiration pneumonitis 07/03/201707/10 Bowel obstruction 06/30/2017 07/10/2017 documented as of this encounter (statuses as of 07/19/2023) [facility] History of Past illness Narrative* Problem Noted Date Diagnosed Date Resolved Date Malnutrition of moderate degree 08/20/2020 12/08/2021 Pneumonia 07/19/2017 07/19/2017 Acute respiratory failure with hypoxia 07/05/2017 07/10/2017 Aspiration pneumonitis 07/03/201707/10 Bowel obstruction 06/30/2017 07/10/2017 documented as of this encounter (statuses as of 07/20/2023) [facility] History of Past illness Narrative* Problem Noted Date Diagnosed Date Resolved Date Malnutrition of moderate degree 08/20/2020 12/08/2021 Pneumonia 07/19/2017 07/19/2017 Acute respiratory failure with hypoxia 07/05/2017 07/10/2017 Aspiration pneumonitis 07/03/201707/10 Bowel obstruction 06/30/2017 07/10/2017 documented as of this encounter (statuses as of 07/20/2023) [facility] History of Past illness Narrative* Problem Noted Date Diagnosed Date Resolved Date Malnutrition of moderate degree 08/20/2020 12/08/2021 Pneumonia 07/19/2017 07/19/2017 Acute respiratory failure with hypoxia 07/05/2017 07/10/2017 Aspiration pneumonitis 07/03/201707/10 Bowel obstruction 06/30/2017 07/10/2017 documented as of this encounter (statuses as of 07/20/2023) [facility] History of Past illness Narrative* Problem Noted Date Diagnosed Date Resolved Date Malnutrition of moderate degree 08/20/2020 12/08/2021 Pneumonia 07/19/2017 07/19/2017 Acute respiratory failure with hypoxia 07/05/2017 07/10/2017 Aspiration pneumonitis 07/03/201707/10 Bowel obstruction 06/30/2017 07/10/2017 documented as of this encounter (statuses as of 07/20/2023) [facility] History of Past illness Narrative* Problem Noted Date Diagnosed Date Resolved Date Malnutrition of moderate degree 08/20/2020 12/08/2021 Pneumonia 07/19/2017 07/19/2017 Acute respiratory failure with hypoxia 07/05/2017 07/10/2017 Aspiration pneumonitis 07/03/201707/10 Bowel obstruction 06/30/2017 07/10/2017 documented as of this encounter (statuses as of 07/20/2023) [facility] History of Past illness Narrative* Problem Noted Date Diagnosed Date Resolved Date Malnutrition of moderate degree 08/20/2020 12/08/2021 Pneumonia 07/19/2017 07/19/2017 Acute respiratory failure with hypoxia 07/05/2017 07/10/2017 Aspiration pneumonitis 07/03/201707/10 Bowel obstruction 06/30/2017 07/10/2017 documented as of this encounter (statuses as of 07/20/2023) [facility] History of Past illness Narrative* Problem Noted Date Diagnosed Date Resolved Date Malnutrition of moderate degree 08/20/2020 12/08/2021 Pneumonia 07/19/2017 07/19/2017 Acute respiratory failure with hypoxia 07/05/2017 07/10/2017 Aspiration pneumonitis 07/03/201707/10 Bowel obstruction 06/30/2017 07/10/2017 documented as of this encounter (statuses as of 07/20/2023) [facility] History of Past illness Narrative* Problem Noted Date Diagnosed Date Resolved Date Malnutrition of moderate degree 08/20/2020 12/08/2021 Pneumonia 07/19/2017 07/19/2017 Acute respiratory failure with hypoxia 07/05/2017 07/10/2017 Aspiration pneumonitis 07/03/201707/10 Bowel obstruction 06/30/2017 07/10/2017 documented as of this encounter (statuses as of 07/20/2023) [facility] History of Past illness Narrative* Problem Noted Date Diagnosed Date Resolved Date Malnutrition of moderate degree 08/20/2020 12/08/2021 Pneumonia 07/19/2017 07/19/2017 Acute respiratory failure with hypoxia 07/05/2017 07/10/2017 Aspiration pneumonitis 07/03/201707/10 Bowel obstruction 06/30/2017 07/10/2017 documented as of this encounter (statuses as of 07/20/2023) [facility] History of Past illness Narrative* Problem Noted Date Diagnosed Date Resolved Date Malnutrition of moderate degree 08/20/2020 12/08/2021 Pneumonia 07/19/2017 07/19/2017 Acute respiratory failure with hypoxia 07/05/2017 07/10/2017 Aspiration pneumonitis 07/03/201707/10 Bowel obstruction 06/30/2017 07/10/2017 documented as of this encounter (statuses as of 07/25/2023) [facility] History of Past illness Narrative* Problem Noted Date Diagnosed Date Resolved Date Malnutrition of moderate degree 08/20/2020 12/08/2021 Pneumonia 07/19/2017 07/19/2017 Acute respiratory failure with hypoxia 07/05/2017 07/10/2017 Aspiration pneumonitis 07/03/201707/10 Bowel obstruction 06/30/2017 07/10/2017 documented as of this encounter (statuses as of 08/01/2023) [facility] History of Past illness Narrative* Problem Noted Date Diagnosed Date Resolved Date Malnutrition of moderate degree 08/20/2020 12/08/2021 Pneumonia 07/19/2017 07/19/2017 Acute respiratory failure with hypoxia 07/05/2017 07/10/2017 Aspiration pneumonitis 07/03/201707/10 Bowel obstruction 06/30/2017 07/10/2017 documented as of this encounter (statuses as of 08/26/2023) [facility] Fall risk [id number] Surveillance risk assessmentWViamericas Work Phone: 1(131) 260-981411-04-2017 History of Past illness Narrative* Problem Noted Date Resolved Date Pneumonia 07/19/2017 07/19/2017 Acute respiratory failure with hypoxia 7 07/10/2017 Aspiration pneumonitis 07/03/2017 7 Bowel obstruction 06/30/2017 07/10/2017 documented as of this encounter (statuses as of 12/05/2021) [facility]2017 Fall risk [id number] risk assessmentAviacode Work Phone: Evaluation note* Diagnosis Situational depression- Primary Adjustment disorder with depressed mood Malnutrition of moderate degree (HCC) Malnutrition of moderate degree [facility] Diagnosis Malignant neoplasm of sigmoid colon (HCC)- Primary Malignant neoplasm of sigmoid colon [facility] Diagnosis Preop examination- Primary Preoperative examination, unspecified DDD (degenerative disc disease), lumbar Degeneration of lumbar or lumbosacral intervertebral disc Coronary artery disease involving solomon coronary artery of solomon heart without angina pectoris Paroxysmal atrial fibrillation (HCC) Atrial fibrillation Elevated hemoglobin A1c Other abnormal blood chemistry Hyperlipidemia, mixed Mixed hyperlipidemia [facility] Diagnosis Malignant neoplasm of sigmoid colon (HCC)- Primary Malignant neoplasm of sigmoid colon [facility] Diagnosis Rectal cancer (HCC) Malignant neoplasm of rectum [facility] Diagnosis Rectal cancer (HCC) [facility] Malignant neoplasm of sigmoid colon (HCC)- Primary Malignant neoplasm of sigmoid colon [facility] Rectal cancer (HCC)- Primary Malignant neoplasm of rectum [facility] History of colon cancer- Primary Personal history of malignant neoplasm of large intestine Ventral hernia without obstruction or gangrene Ventral hernia, unspecified, without mention of obstruction or gangrene 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) Ileostomy status Generalized weakness Other malaise and fatigue Falls frequently Personal history of fall [facility] Falls frequently- Primary Personal history of fall [facility] Diagnosis Bilateral carotid artery stenosis Occlusion and stenosis of carotid artery without mention of cerebral infarction Positional lightheadedness Dizziness and giddiness [facility] Diagnosis Falls frequently- Primary Personal history of fall [facility] Diagnosis Falls frequently- Primary Personal history of fall [facility] Diagnosis Essential hypertension- Primary Unspecified essential hypertension Bilateral carotid artery stenosis Occlusion and stenosis of carotid artery without mention of cerebral infarction Chronic midline low back pain with right-sided sciatica Falls frequently Personal history of fall Generalized weakness Other malaise and fatigue [facility] Diagnosis Malignant neoplasm of sigmoid colon (HCC)- Primary Malignant neoplasm of sigmoid colon [facility] Diagnosis Fever, unspecified fever cause- Primary [facility] Diagnosis Malignant neoplasm of prostate (HCC)- Primary Malignant neoplasm of prostate [facility] Diagnosis Skin abrasion- Primary Abrasion or friction burn of other, multiple, and unspecified sites, without mention of infection Dysuria Acute cystitis with hematuria Acute cystitis Arthritis of right hip Arthritis, lumbar spine Lumbosacral spondylosis without myelopathy [facility] Diagnosis Right leg pain- Primary Pain in limb Lumbar pain Lumbago Spinal stenosis, lumbar region with neurogenic claudication Frequent nocturnal awakening Other sleep disturbances Sleep apnea-like behavior Insomnia, unspecified type Cognitive impairment Unspecified persistent mental disorders due to conditions classified elsewhere [facility] Diagnosis Malignant neoplasm of sigmoid colon (HCC) Malignant neoplasm of sigmoid colon [facility] Diagnosis Ventral hernia without obstruction or gangrene- Primary Ventral hernia, unspecified, without mention of obstruction or gangrene Colostomy in place (HCC) Colostomy status 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) Ileostomy status Paroxysmal atrial fibrillation (HCC) Atrial fibrillation History of colon cancer Personal history of malignant neoplasm of large intestine Parastomal hernia without obstruction or gangrene Hernia of unspecified site of abdominal cavity without mention of obstruction or gangrene [facility] Diagnosis Essential hypertension- Primary Unspecified essential hypertension Hyperlipidemia, mixed Mixed hyperlipidemia Elevated hemoglobin A1c Other abnormal blood chemistry Coronary artery disease involving solomon coronary artery of solomon heart without angina pectoris Paroxysmal atrial fibrillation (HCC) Atrial fibrillation Bilateral carotid artery stenosis Occlusion and stenosis of carotid artery without mention of cerebral infarction Situational depression Adjustment disorder with depressed mood Malignant neoplasm of sigmoid colon (HCC) Malignant neoplasm of sigmoid colon Cognitive impairment, mild, so stated Mild cognitive impairment, so stated Essential tremor Essential and other specified forms of tremor 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 Rectal cancer (HCC) Malignant neoplasm of rectum Malignant neoplasm of ascending colon (HCC) Malignant neoplasm of ascending colon Malignant neoplasm of colon, unspecified part of colon (HCC) Colostomy in place (HCC) Colostomy status Colostomy care (HCC) Attention to colostomy 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 Hypertrophy of prostate with urinary obstruction and other lower urinary tract symptoms (LUTS) Spinal stenosis, lumbar region with neurogenic claudication Advance directive discussed with patient Other specified counseling Encounter for immunization Need for other specified prophylactic vaccination against single bacterial disease [facility] Diagnosis Hyperkalemia- Primary Hyperpotassemia [facility] Diagnosis Rectal cancer (HCC)- Primary Malignant neoplasm of rectum Abnormal CT of the abdomen Nonspecific (abnormal) findings on radiological and other examination of abdominal area, including retroperitoneum [facility] Diagnosis Dermatitis- Primary Contact dermatitis and other eczema, due to unspecified cause [facility] Diagnosis Right leg pain- Primary Pain in limb Lumbar pain Lumbago Spinal stenosis, lumbar region with neurogenic claudication Frequent nocturnal awakening Other sleep disturbances Sleep apnea-like behavior Insomnia, unspecified type Cognitive impairment Unspecified persistent mental disorders due to conditions classified elsewhere [facility] Diagnosis Malignant neoplasm of sigmoid colon (HCC)- Primary Malignant neoplasm of sigmoid colon Rectal cancer (HCC) Malignant neoplasm of rectum Abnormal CT of the abdomen Nonspecific (abnormal) findings on radiological and other examination of abdominal area, including retroperitoneum [facility] Diagnosis Fall, initial encounter- Primary [facility] Diagnosis Spinal stenosis of lumbar region, unspecified whether neurogenic claudication present- Primary [facility] Diagnosis Rectal cancer (HCC) Malignant neoplasm of rectum Elevated CEA Elevated carcinoembryonic antigen [CEA] Abnormal CT scan Other nonspecific (abnormal) findings on radiological and other examinations of body structure [facility] Diagnosis Malignant neoplasm of sigmoid colon (HCC)- Primary Malignant neoplasm of sigmoid colon [facility] Diagnosis 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 [facility] Diagnosis 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 [facility] Diagnosis Situational depression- Primary Adjustment disorder with depressed mood SALAS (generalized anxiety disorder) Generalized anxiety disorder Cognitive impairment, mild, so stated Mild cognitive impairment, so stated [facility] Diagnosis 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 [facility] Diagnosis Malignant neoplasm of sigmoid colon (HCC)- Primary Malignant neoplasm of sigmoid colon [facility] Diagnosis Cognitive impairment- Primary Unspecified persistent mental disorders due to conditions classified elsewhere [facility] Diagnosis Medicare annual wellness visit, subsequent- Primary Routine general medical examination at a health care facility Essential hypertension Unspecified essential hypertension Hyperlipidemia, mixed Mixed hyperlipidemia Elevated hemoglobin A1c Other abnormal blood chemistry Paroxysmal atrial fibrillation (HCC) Atrial fibrillation Coronary artery disease involving solomon coronary artery of solomon heart without angina pectoris Bilateral carotid artery stenosis Occlusion and stenosis of carotid artery without mention of cerebral infarction SALAS (generalized anxiety disorder) Generalized anxiety disorder Situational depression Adjustment disorder with depressed mood Dementia without behavioral disturbance (HCC) Dementia, unspecified, without behavioral disturbance Malignant neoplasm of colon, unspecified part of colon (HCC) Malignant neoplasm of ascending colon (HCC) Malignant neoplasm of ascending colon Malignant neoplasm of sigmoid colon (HCC) Malignant neoplasm of sigmoid colon Rectal cancer (HCC) Malignant neoplasm of rectum 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 Colostomy care (HCC) Attention to colostomy Colostomy in place (HCC) Colostomy status 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) Ileostomy status History of prostate cancer Personal history of malignant neoplasm of prostate [facility] Diagnosis Malignant neoplasm of rectum (HCC)- Primary Malignant neoplasm of rectum [facility] Diagnosis Malignant neoplasm of rectum (HCC)- Primary Malignant neoplasm of rectum [facility] Diagnosis Acute encephalopathy- Primary Encephalopathy, unspecified Dementia without behavioral disturbance (HCC) Dementia, unspecified, without behavioral disturbance Closed nondisplaced fracture of styloid process of left ulna, initial encounter Acute cystitis without hematuria Acute cystitis Cellulitis of skin Cellulitis and abscess of unspecified site [facility] Diagnosis Malignant neoplasm of sigmoid colon (HCC)- Primary Malignant neoplasm of sigmoid colon [facility] Diagnosis Malignant neoplasm of sigmoid colon (HCC)- Primary Malignant neoplasm of sigmoid colon [facility] Diagnosis Closed fracture of distal end of left humerus with routine healing, unspecified fracture morphology, subsequent encounter- Primary Bilateral carotid artery stenosis- Primary Occlusion and stenosis of carotid artery without mention of cerebral infarction [facility] Diagnosis Upper respiratory virus- Primary Acute upper respiratory infections of unspecified site Acute cough [facility] Diagnosis Dementia, unspecified dementia severity, unspecified dementia type, unspecified whether behavioral, psychotic, or mood disturbance or anxiety (HCC)- Primary [facility] Diagnosis Rectal cancer (HCC) Malignant neoplasm of rectum [facility] Diagnosis Malignant neoplasm of rectum (HCC) Malignant neoplasm of rectum [facility] Diagnosis Malignant neoplasm of rectum (HCC) Malignant neoplasm of rectum [facility] Diagnosis Dementia without behavioral disturbance (HCC) Dementia, unspecified, without behavioral disturbance Spinal stenosis of lumbar region with neurogenic claudication Spinal stenosis, lumbar region, with neurogenic claudication [facility] Diagnosis Rectal cancer (HCC) Malignant neoplasm of rectum Abnormal CT of the abdomen Nonspecific (abnormal) findings on radiological and other examination of abdominal area, including retroperitoneum [facility] Diagnosis Rectal cancer (HCC) Malignant neoplasm of rectum [facility] Diagnosis Elbow effusion, left- Primary SALAS (generalized anxiety disorder) Generalized anxiety disorder [facility] Diagnosis Polypharmacy- Primary Encounter for long-term (current) use of other medications Dementia, unspecified dementia severity, unspecified dementia type, unspecified whether behavioral, psychotic, or mood disturbance or anxiety (HCC) Falls frequently Personal history of fall Alcohol dependence with uncomplicated intoxication (HCC) Acute alcoholic intoxication in alcoholism, unspecified Driving safety issue Other specified personal history presenting hazards to health [facility] Outpatient Procedure (Routine) - Authorized Specialty Diagnoses / Procedures Referred By Remi rocha [facility]erred [facility] Diagnoses Bilateral carotid artery stenosis Procedures US CAROTID ARTERIES [facility] DUPLEX SCAN EXTRACRANIAL ART COMPL BI STUDY Kaye Oneal DO [address] [place] [address] [facility] [id number] Referral ID Status Reason Start Date Expiration Date Visits Requested Visits Authorized [id number] Authorized Auto-Generat ed Referral 03/26/2022 03/26/2023 1 1 [facility] for referral (narrative)* Diagnostic Procedure Only (Routine) - Closed Specialty Diagnoses / Procedures Referred By Remi rocha Referred To Contact [facility] Diagnoses Rectal cancer (HCC) Elevated CEA Abnormal CT scan Procedures NM PET/CT SKULL-THIGH INITIAL PET IMAGING CT ATTENUATION SKULL BASE MID-THIGH Tameka Marshall APRN.ENVIRONMENTAL FIELD SERVICES TECHNICIAN [address] [place] [address] [facility] [address] [id number] Referral ID Status Reason Start Date Expiration Date V isits Requested Visits Authorized [id number] Closed Auto-Generate d Referral 11/14/2022 12/14/2023 1 1 [facility] for visit Narrative* Diagnostic Procedure Only (Routine) - Closed Specialty Diagnoses / Procedures Referred By Contrandal rocha Referred To Contact [facility] Diagnoses Rectal cancer (HCC) Elevated CEA Abnormal CT scan Procedures NM PET/CT SKULL-THIGH INITIAL PET IMAGING CT ATTENUATION SKULL BASE MID-THIGH Tameka Marshall APRN.ENVIRONMENTAL FIELD SERVICES TECHNICIAN [address] [place] [address] [facility] [address] [place] [address] Referral ID Status Reason Start Date Expiration Date V isits Requested Visits Authorized [id number] Closed Auto-Generate d Referral 11/14/2022 12/14/2023 1 1 [facility] Summary Purpose Family History No Family History Records FoundNo Family History Records FoundNo Family History Records FoundNo Family History Records Found Advance Directives No Advanced Directives Records FoundDocuments on File Type Date Recorded Patient Therapeutic Case Manager Expl anation Advance Directive(s) 07/20/2017 8:54 AM Latest Code Status on File Code Status Date Activated Date Inactivated Comments Full Code 08/18/2020 2:14 PM 08/19/2020 12:20 PM Documents on File Type Date Recorded Patient Therapeutic Case Manager Expl anation Advance Directive(s) 08/19/2020 2:53 PM Advance Directive(s) 08/05/2020 3:02 AM Advance Directive(s) 08/03/2020 8:57 AM Advance Directive(s) 12/23/2019 5:57 AM Advance Directive(s) 08/06/2019 7:25 AM Advance Directive(s) 07/20/2017 8:54 AM Advance Directive(s) 07/02/2017 4:27 PM Documents on File Type Date Recorded Patient Therapeutic Case Manager Expl anation Advance Directive(s) 08/19/2020 2:53 PM Advance Directive(s) 08/05/2020 3:02 AM Advance Directive(s) 08/03/2020 8:57 AM Advance Directive(s) 12/23/2019 5:57 AM Advance Directive(s) 08/06/2019 7:25 AM Advance Directive(s) 07/20/2017 8:54 AM Advance Directive(s) 07/02/2017 4:27 PM Latest Code Status on File Code Status Date Activated Date Inactivated Comments Full Code 08/18/2020 2:14 PM 08/19/2020 12:20 PM Documents on File Type Date Recorded Patient Therapeutic Case Manager Expl anation Advance Directive(s) 07/20/2017 8:54 AM Latest Code Status on File Code Status Date Activated Date Inactivated Comments Full Code 08/18/2020 2:14 PM 08/19/2020 12:20 PM Latest Code Status on File Code Status Date Activated Date Inactivated Comments Full Code 08/18/2020 2:14 PM 08/19/2020 12:20 PM Reason for Referral Specialty Diagnoses / Procedures Referred By Contac t Referred To Contact CT IMAGING Diagnoses Rectal cancer (HCC) Procedures CT CHEST W IVCON DIAGNOSTIC COMPUTED TOMOGRAPHY THORAX W/CONTRAST Tameka Marshall, SEAFOOD PROCESS WORKER.ENVIRONMENTAL FIELD SERVICES TECHNICIAN [address] [place] [address] Ct Imaging Referral ID Status Reason Start Date Expiration Date V isits Requested Visits Authorized [id number] Closed Auto-Generate d Referral 11/14/2021 12/14/2022 1 1 Specialty Diagnoses / Procedures Referred By Contac t Referred To Contact CT IMAGING Diagnoses Rectal cancer (HCC) Procedures CT ABD/PEL W IVCON CT ABD & PELVIS W/CONTRAST Rolando, Tameka, SEAFOOD PROCESS WORKER.ENVIRONMENTAL FIELD SERVICES TECHNICIAN [address] [place] [address] Ct Imaging Referral ID Status Reason Start Date Expiration Date V isits Requested Visits Authorized [id number] Closed Auto-Generate d Referral 11/14/2021 12/14/2022 1 1 Referral ID Status Reason Start Date Expiration Date Visits Requested Visits Authorized [id number] Authorized Auto-Generat ed Referral 03/21/2022 04/20/2023 1 1 Referral ID Status Reason Start Date Expiration Date Visits Requested Visits Authorized [id number] Authorized Auto-Generat ed Referral 03/21/2022 04/20/2023 1 1 Specialty Diagnoses / Procedures Referred By Contac t Referred To Contact Orthopedics Diagnoses Arthritis of right hip Arthritis, lumbar spine Procedures CONSULT TO ORTHOPAEDICS OFFICE/OUTPATIENT [facility] HIGH MDM 60-74 MINUTES Vishal Jones MD [address] [place] [address] Referral ID Status Reason Start Date Expiration Date Visits Requested Visits Authorized [id number] Authorized PCP Requested Referral 07/24/2022 07/24/2023 1 1 Specialty Diagnoses / Procedures Referred By Contac t Referred To Contact CT IMAGING Diagnoses Rectal cancer (HCC) Abnormal CT of the abdomen Procedures CT ABD/PEL W IVCON CT ABD & PELVIS W/CONTRAST Tameka Marshall APRN.ENVIRONMENTAL FIELD SERVICES TECHNICIAN [address] [place] [address] Ct Imaging Referral ID Status Reason Start Date Expiration Date Visits Requested Visits Authorized [id number] Authorized Auto-Generat ed Referral 10/09/2022 11/08/2023 1 1 Specialty Diagnoses / Procedures Referred By Contac t Referred To Contact Neurosurgery Diagnoses Spinal stenosis of lumbar region, unspecified whether neurogenic claudication present Procedures CONSULT TO NEUROSURGERY Mikhail Liu Jr., MD [address] [address] Referral ID Status Reason Start Date Expiration Date Visits Requested Visits Authorized [id number] Ref Not Required PCP Requested Referral 11/28/2022 02/26/2023 3 3 Specialty Diagnoses / Procedures Referred By Contac t Referred To Contact Diagnoses 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) Procedures CT SIM PLANNING RADIATION ONCOLOGY THER RAD SIMULAJ-AIDED FIELD SETTING COMPLEX Clement Werner MD, [address] [place] [address] Referral ID Status Reason Start Date Expiration Date Visits Requested Visits Authorized [id number] Pending Review PCP Requested Referral 12/30/2022 03/25/2023 1 1 Specialty Diagnoses / Procedures Referred By Contac t Referred To Contact CT IMAGING Diagnoses Malignant neoplasm of rectum (HCC) Procedures CT CHEST W IVCON DIAGNOSTIC COMPUTED TOMOGRAPHY THORAX W/CONTRAST Sam Greenberg, DO [address] [facility] [place] [address] Ct Imaging Referral ID Status Reason Start Date Expiration Date Visits Requested Visits Authorized [id number] Authorized Auto-Generat ed Referral 04/01/2023 04/30/2024 1 1 Specialty Diagnoses / Procedures Referred By Contac t Referred To Contact CT IMAGING Diagnoses Malignant neoplasm of rectum (HCC) Procedures CT ABD/PEL W IVCON CT ABD & PELVIS W/CONTRAST Sam Greenberg, DO [address] [facility] [address] Ct Imaging Referral ID Status Reason Start Date Expiration Date Visits Requested Visits Authorized [id number] Authorized Auto-Generat ed Referral 04/01/2023 04/30/2024 1 1 Specialty Diagnoses / Procedures Referred By Contac t Referred To Contact Neurology Diagnoses Dementia, unspecified dementia severity, unspecified dementia type, unspecified whether behavioral, psychotic, or mood disturbance or anxiety (HCC) Procedures CONSULT TO NEUROLOGY OFFICE/OUTPATIENT [facility] 60-74 MINUTES Mikhail Liu Jr., MD [address] [address] Referral ID Status Reason Start Date Expiration Date Visits Requested Visits Authorized [id number] Authorized PCP Requested Referral 3 06/29/2024 1 1 Specialty Diagnoses / Procedures Referred By Contac t Referred To Contact CT IMAGING Diagnoses Malignant neoplasm of rectum (HCC) Procedures CT CHEST W IVCON DIAGNOSTIC COMPUTED TOMOGRAPHY THORAX W/CONTRAST Sam Greenberg, DO [address] [place] [address] [place] [address] Referral ID Status Reason Start Date Expiration Date V isits Requested Visits Authorized [id number] Closed Auto-Generate d Referral 04/01/2023 04/30/2024 1 1 Specialty Diagnoses / Procedures Referred By Contac t Referred To Contact CT IMAGING Diagnoses Malignant neoplasm of rectum (HCC) Procedures CT ABD/PEL W IVCON CT ABD & PELVIS W/CONTRAST Sam Greenberg, DO [address] [place] [address] [place] [address] Referral ID Status Reason Start Date Expiration Date V isits Requested Visits Authorized [id number] Closed Auto-Generate d Referral 04/01/2023 04/30/2024 1 1 Referral ID Status Reason Start Date Expiration Date V isits Requested Visits Authorized [id number] Closed Auto-Generate d Referral 02/25/2023 03/26/2024 1 1 Referral ID Status Reason Start Date Expiration Date V isits Requested Visits Authorized [id number] Closed Auto-Generate d Referral 02/25/2023 03/26/2024 1 1 Specialty Diagnoses / Procedures Referred By Contac t Referred To Contact MR IMAGING Diagnoses Spinal stenosis of lumbar region with neurogenic claudication Procedures MRI LUMBAR SPINE WO IVCON MRI SPINAL CANAL LUMBAR W/O CONTRAST MATERIAL Mikhail Liu Jr., MD [address] [facility] [address] [place] [address] [place] [address] Referral ID Status Reason Start Date Expiration Date V isits Requested Visits Authorized [id number] Closed Auto-Generate d Referral 06/24/2022 07/24/2023 1 1 Specialty Diagnoses / Procedures Referred By Contac t Referred To Contact MR IMAGING Diagnoses Dementia without behavioral disturbance (HCC) Procedures MRI BRAIN WO IVCON MRI BRAIN BRAIN STEM W/O CONTRAST MATERIAL Mikhail Liu Jr., MD [address] [facility] [address] [place] [address] [place] [address] Referral ID Status Reason Start Date Expiration Date V isits Requested Visits Authorized [id number] Closed Auto-Generate d Referral 06/24/2022 07/24/2023 1 1 Specialty Diagnoses / Procedures Referred By Contac t Referred To Contact CT IMAGING Diagnoses Rectal cancer (HCC) Abnormal CT of the abdomen Procedures CT ABD/PEL W IVCON CT ABD & PELVIS W/CONTRAST Tameka Marshall APRN.ENVIRONMENTAL FIELD SERVICES TECHNICIAN [address] [place] [address] Ct Imaging [id number] Referral ID Status Reason Start Date Expiration Date V isits Requested Visits Authorized [id number] Closed Auto-Generate d Referral 10/09/2022 11/08/2023 1 1 Specialty Diagnoses / Procedures Referred By Contac t Referred To Contact CT IMAGING Diagnoses Rectal cancer (HCC) Procedures CT CHEST W IVCON DIAGNOSTIC COMPUTED TOMOGRAPHY THORAX W/CONTRAST Tameka Marshall APRN.ENVIRONMENTAL FIELD SERVICES TECHNICIAN [address] [place] [address] Ct Imaging [place] [address] Referral ID Status Reason Start Date Expiration Date V isits Requested Visits Authorized [id number] Closed Auto-Generate d Referral 03/21/2022 04/20/2023 1 1 Specialty Diagnoses / Procedures Referred By Contac t Referred To Contact CT IMAGING Diagnoses Rectal cancer (HCC) Procedures CT ABD/PEL W IVCON CT ABD & PELVIS W/CONTRAST Tameka Marshall APRN.ENVIRONMENTAL FIELD SERVICES TECHNICIAN [address] [place] [address] Ct Imaging [place] [address] Referral ID Status Reason Start Date Expiration Date V isits Requested Visits Authorized [id number] Closed Auto-Generate d Referral 03/21/2022 04/20/2023 1 1 Specialty Diagnoses / Procedures Referred By Contac t Referred To Contact Orthopedics Diagnoses Elbow effusion, left Procedures CONSULT TO ORTHOPAEDICS OFFICE/OUTPATIENT [facility] 60-74 MINUTES Ren Chua APRN.ENVIRONMENTAL FIELD SERVICES TECHNICIAN [address] [place] [address] Referral ID Status Reason Start Date Expiration Date Visits Requested Visits Authorized [id number] Authorized PCP Requested Referral 3 07/31/2024 1 1 Specialty Diagnoses / Procedures Referred By Contac t Referred To Contact MR IMAGING Diagnoses Dementia, unspecified dementia severity, unspecified dementia type, unspecified whether behavioral, psychotic, or mood disturbance or anxiety (HCC) Alcohol dependence with uncomplicated intoxication (HCC) Procedures MRI 3D POST PROCESSING 3D RENDERING W/INTERP&POSTPROC DIFF WORK STATION Chapincito Tomlin MD [address] [place] [id number] [place] [address] Referral ID Status Reason Start Date Expiration Date Visits Requested Visits Authorized [id number] Authorized Auto-Generat ed Referral 3 09/24/2024 1 1 Specialty Diagnoses / Procedures Referred By Remi rocha Referred To Contact MR IMAGING Diagnoses Dementia, unspecified dementia severity, unspecified dementia type, unspecified whether behavioral, psychotic, or mood disturbance or anxiety (HCC) Alcohol dependence with uncomplicated intoxication (HCC) Procedures MRI BRAIN W QUANT WO IVCON MRI BRAIN BRAIN STEM W/O CONTRAST MATERIAL Chapincito Tomlin MD [address] [place] [address] [place] [address] Referral ID Status Reason Start Date Expiration Date Visits Requested Visits Authorized [id number] Authorized Auto-Generat ed Referral 3 09/24/2024 1 1 Additional Source Comments (unrecognized sect ion and content) No Status Records FoundNo Status Records FoundNo Status Records FoundNo Status Records Found INFORMATION SOURCE (unrecogn ized section and content) DATE CREATED AUTHOR AUTHOR'S ORGANIZ ATION 08/07/2022 [facility] DATE CREATED AUTHOR AUTHOR'S ORGANIZ ATION 09/23/2022 [facility] DATE CREATED AUTHOR AUTHOR'S ORGANIZ ATION 09/29/2023 [facility] Source Comments (unrecognize d section and content) In the event this informatio n is protected by the Federal Confidentiality of Alcohol and Drug Abuse Patient Records regulations: The Federal rules restrict any use of the information to criminally investigate or prosecute any alcohol or drug abuse patient.[facility] the event this information is protected by the Federal Confidentiality of Alcohol and Drug Abuse Patient Records regulations: The Federal rules restrict any use of the information to criminally investigate or prosecute any alcohol or drug abuse patient.[facility] the event this information is protected by the Federal Confidentiality of Alcohol and Drug Abuse Patient Records regulations: The Federal rules restrict any use of the information to criminally investigate or prosecute any alcohol or drug abuse patient.[facility] the event this information is protected by the Federal Confidentiality of Alcohol and Drug Abuse Patient Records regulations: The Federal rules restrict any use of the information to criminally investigate or prosecute any alcohol or drug abuse patient.[facility] HospitalIn the event this information is protected by the Federal Confidentiality of Alcohol and Drug Abuse Patient Records regulations: The Federal rules restrict any use of the information to criminally investigate or prosecute any alcohol or drug abuse patient.[facility] HospitalIn the event this information is protected by the Federal Confidentiality of Alcohol and Drug Abuse Patient Records regulations: The Federal rules restrict any use of the information to criminally investigate or prosecute any alcohol or drug abuse patient.[facility] Hospital[facility] the event this information is protected by the Federal Confidentiality of Alcohol and Drug Abuse Patient Records regulations: The Federal rules restrict any use of the information to criminally investigate or prosecute any alcohol or drug abuse patient.[facility] HospitalIn the event this information is protected by the Federal Confidentiality of Alcohol and Drug Abuse Patient Records regulations: The Federal rules restrict any use of the information to criminally investigate or prosecute any alcohol or drug abuse patient.[facility] Hospital[facility] the event this information is protected by the Federal Confidentiality of Alcohol and Drug Abuse Patient Records regulations: The Federal rules restrict any use of the information to criminally investigate or prosecute any alcohol or drug abuse patient.[facility] HospitalIn the event this information is protected by the Federal Confidentiality of Alcohol and Drug Abuse Patient Records regulations: The Federal rules restrict any use of the information to criminally investigate or prosecute any alcohol or drug abuse patient.[facility] HospitalIn the event this information is protected by the Federal Confidentiality of Alcohol and Drug Abuse Patient Records regulations: The Federal rules restrict any use of the information to criminally investigate or prosecute any alcohol or drug abuse patient.[facility] HospitalIn the event this information is protected by the Federal Confidentiality of Alcohol and Drug Abuse Patient Records regulations: The Federal rules restrict any use of the information to criminally investigate or prosecute any alcohol or drug abuse patient.[facility] HospitalIn the event this information is protected by the Federal Confidentiality of Alcohol and Drug Abuse Patient Records regulations: The Federal rules restrict any use of the information to criminally investigate or prosecute any alcohol or drug abuse patient.[facility] HospitalIn the event this information is protected by the Federal Confidentiality of Alcohol and Drug Abuse Patient Records regulations: The Federal rules restrict any use of the information to criminally investigate or prosecute any alcohol or drug abuse patient.[facility] HospitalIn the event this information is protected by the Federal Confidentiality of Alcohol and Drug Abuse Patient Records regulations: The Federal rules restrict any use of the information to criminally investigate or prosecute any alcohol or drug abuse patient.[facility] HospitalIn the event this information is protected by the Federal Confidentiality of Alcohol and Drug Abuse Patient Records regulations: The Federal rules restrict any use of the information to criminally investigate or prosecute any alcohol or drug abuse patient.[facility] HospitalIn the event this information is protected by the Federal Confidentiality of Alcohol and Drug Abuse Patient Records regulations: The Federal rules restrict any use of the information to criminally investigate or prosecute any alcohol or drug abuse patient.[facility] HospitalIn the event this information is protected by the Federal Confidentiality of Alcohol and Drug Abuse Patient Records regulations: The Federal rules restrict any use of the information to criminally investigate or prosecute any alcohol or drug abuse patient.[facility] HospitalIn the event this information is protected by the Federal Confidentiality of Alcohol and Drug Abuse Patient Records regulations: The Federal rules restrict any use of the information to criminally investigate or prosecute any alcohol or drug abuse patient.[facility] HospitalIn the event this information is protected by the Federal Confidentiality of Alcohol and Drug Abuse Patient Records regulations: The Federal rules restrict any use of the information to criminally investigate or prosecute any alcohol or drug abuse patient.[facility] HospitalIn the event this information is protected by the Federal Confidentiality of Alcohol and Drug Abuse Patient Records regulations: The Federal rules restrict any use of the information to criminally investigate or prosecute any alcohol or drug abuse patient.[facility] HospitalIn the event this information is protected by the Federal Confidentiality of Alcohol and Drug Abuse Patient Records regulations: The Federal rules restrict any use of the information to criminally investigate or prosecute any alcohol or drug abuse patient.[facility] HospitalIn the event this information is protected by the Federal Confidentiality of Alcohol and Drug Abuse Patient Records regulations: The Federal rules restrict any use of the information to criminally investigate or prosecute any alcohol or drug abuse patient.[facility] HospitalIn the event this information is protected by the Federal Confidentiality of Alcohol and Drug Abuse Patient Records regulations: The Federal rules restrict any use of the information to criminally investigate or prosecute any alcohol or drug abuse patient.[facility] HospitalIn the event this information is protected by the Federal Confidentiality of Alcohol and Drug Abuse Patient Records regulations: The Federal rules restrict any use of the information to criminally investigate or prosecute any alcohol or drug abuse patient.[facility] HospitalIn the event this information is protected by the Federal Confidentiality of Alcohol and Drug Abuse Patient Records regulations: The Federal rules restrict any use of the information to criminally investigate or prosecute any alcohol or drug abuse patient.[facility] HospitalIn the event this information is protected by the Federal Confidentiality of Alcohol and Drug Abuse Patient Records regulations: The Federal rules restrict any use of the information to criminally investigate or prosecute any alcohol or drug abuse patient.[facility] HospitalIn the event this information is protected by the Federal Confidentiality of Alcohol and Drug Abuse Patient Records regulations: The Federal rules restrict any use of the information to criminally investigate or prosecute any alcohol or drug abuse patient.[facility] HospitalIn the event this information is protected by the Federal Confidentiality of Alcohol and Drug Abuse Patient Records regulations: The Federal rules restrict any use of the information to criminally investigate or prosecute any alcohol or drug abuse patient.[facility] HospitalIn the event this information is protected by the Federal Confidentiality of Alcohol and Drug Abuse Patient Records regulations: The Federal rules restrict any use of the information to criminally investigate or prosecute any alcohol or drug abuse patient.[facility] HospitalIn the event this information is protected by the Federal Confidentiality of Alcohol and Drug Abuse Patient Records regulations: The Federal rules restrict any use of the information to criminally investigate or prosecute any alcohol or drug abuse patient.[facility] HospitalIn the event this information is protected by the Federal Confidentiality of Alcohol and Drug Abuse Patient Records regulations: The Federal rules restrict any use of the information to criminally investigate or prosecute any alcohol or drug abuse patient.[facility] HospitalIn the event this information is protected by the Federal Confidentiality of Alcohol and Drug Abuse Patient Records regulations: The Federal rules restrict any use of the information to criminally investigate or prosecute any alcohol or drug abuse patient.[facility] the event this information is protected by the Federal Confidentiality of Alcohol and Drug Abuse Patient Records regulations: The Federal rules restrict any use of the information to criminally investigate or prosecute any alcohol or drug abuse patient.[facility] HospitalIn the event this information is protected by the Federal Confidentiality of Alcohol and Drug Abuse Patient Records regulations: The Federal rules restrict any use of the information to criminally investigate or prosecute any alcohol or drug abuse patient.[facility] HospitalIn the event this information is protected by the Federal Confidentiality of Alcohol and Drug Abuse Patient Records regulations: The Federal rules restrict any use of the information to criminally investigate or prosecute any alcohol or drug abuse patient.[facility] the event this information is protected by the Federal Confidentiality of Alcohol and Drug Abuse Patient Records regulations: The Federal rules restrict any use of the information to criminally investigate or prosecute any alcohol or drug abuse patient.[facility] HospitalIn the event this information is protected by the Federal Confidentiality of Alcohol and Drug Abuse Patient Records regulations: The Federal rules restrict any use of the information to criminally investigate or prosecute any alcohol or drug abuse patient.[facility] HospitalIn the event this information is protected by the Federal Confidentiality of Alcohol and Drug Abuse Patient Records regulations: The Federal rules restrict any use of the information to criminally investigate or prosecute any alcohol or drug abuse patient.[facility] HospitalIn the event this information is protected by the Federal Confidentiality of Alcohol and Drug Abuse Patient Records regulations: The Federal rules restrict any use of the information to criminally investigate or prosecute any alcohol or drug abuse patient.[facility] HospitalIn the event this information is protected by the Federal Confidentiality of Alcohol and Drug Abuse Patient Records regulations: The Federal rules restrict any use of the information to criminally investigate or prosecute any alcohol or drug abuse patient.[facility] HospitalIn the event this information is protected by the Federal Confidentiality of Alcohol and Drug Abuse Patient Records regulations: The Federal rules restrict any use of the information to criminally investigate or prosecute any alcohol or drug abuse patient.[facility] HospitalIn the event this information is protected by the Federal Confidentiality of Alcohol and Drug Abuse Patient Records regulations: The Federal rules restrict any use of the information to criminally investigate or prosecute any alcohol or drug abuse patient.[facility] HospitalIn the event this information is protected by the Federal Confidentiality of Alcohol and Drug Abuse Patient Records regulations: The Federal rules restrict any use of the information to criminally investigate or prosecute any alcohol or drug abuse patient.[facility] HospitalIn the event this information is protected by the Federal Confidentiality of Alcohol and Drug Abuse Patient Records regulations: The Federal rules restrict any use of the information to criminally investigate or prosecute any alcohol or drug abuse patient.[facility] HospitalIn the event this information is protected by the Federal Confidentiality of Alcohol and Drug Abuse Patient Records regulations: The Federal rules restrict any use of the information to criminally investigate or prosecute any alcohol or drug abuse patient.[facility] HospitalIn the event this information is protected by the Federal Confidentiality of Alcohol and Drug Abuse Patient Records regulations: The Federal rules restrict any use of the information to criminally investigate or prosecute any alcohol or drug abuse patient.[facility]In the event this information is protected by the Federal Confidentiality of Alcohol and Drug Abuse Patient Records regulations: The Federal rules restrict any use of the information to criminally investigate or prosecute any alcohol or drug abuse patient.[facility] HospitalIn the event this information is protected by the Federal Confidentiality of Alcohol and Drug Abuse Patient Records regulations: The Federal rules restrict any use of the information to criminally investigate or prosecute any alcohol or drug abuse patient.[facility] HospitalIn the event this information is protected by the Federal Confidentiality of Alcohol and Drug Abuse Patient Records regulations: The Federal rules restrict any use of the information to criminally investigate or prosecute any alcohol or drug abuse patient.[facility] HospitalIn the event this information is protected by the Federal Confidentiality of Alcohol and Drug Abuse Patient Records regulations: The Federal rules restrict any use of the information to criminally investigate or prosecute any alcohol or drug abuse patient.[facility] HospitalIn the event this information is protected by the Federal Confidentiality of Alcohol and Drug Abuse Patient Records regulations: The Federal rules restrict any use of the information to criminally investigate or prosecute any alcohol or drug abuse patient.[facility] HospitalIn the event this information is protected by the Federal Confidentiality of Alcohol and Drug Abuse Patient Records regulations: The Federal rules restrict any use of the information to criminally investigate or prosecute any alcohol or drug abuse patient.[facility] HospitalIn the event this information is protected by the Federal Confidentiality of Alcohol and Drug Abuse Patient Records regulations: The Federal rules restrict any use of the information to criminally investigate or prosecute any alcohol or drug abuse patient.[facility] HospitalIn the event this information is protected by the Federal Confidentiality of Alcohol and Drug Abuse Patient Records regulations: The Federal rules restrict any use of the information to criminally investigate or prosecute any alcohol or drug abuse patient.[facility] HospitalIn the event this information is protected by the Federal Confidentiality of Alcohol and Drug Abuse Patient Records regulations: The Federal rules restrict any use of the information to criminally investigate or prosecute any alcohol or drug abuse patient.[facility] HospitalIn the event this information is protected by the Federal Confidentiality of Alcohol and Drug Abuse Patient Records regulations: The Federal rules restrict any use of the information to criminally investigate or prosecute any alcohol or drug abuse patient.[facility] HospitalIn the event this information is protected by the Federal Confidentiality of Alcohol and Drug Abuse Patient Records regulations: The Federal rules restrict any use of the information to criminally investigate or prosecute any alcohol or drug abuse patient.[facility] HospitalIn the event this information is protected by the Federal Confidentiality of Alcohol and Drug Abuse Patient Records regulations: The Federal rules restrict any use of the information to criminally investigate or prosecute any alcohol or drug abuse patient.[facility] HospitalIn the event this information is protected by the Federal Confidentiality of Alcohol and Drug Abuse Patient Records regulations: The Federal rules restrict any use of the information to criminally investigate or prosecute any alcohol or drug abuse patient.[facility] HospitalIn the event this information is protected by the Federal Confidentiality of Alcohol and Drug Abuse Patient Records regulations: The Federal rules restrict any use of the information to criminally investigate or prosecute any alcohol or drug abuse patient.[facility] HospitalIn the event this information is protected by the Federal Confidentiality of Alcohol and Drug Abuse Patient Records regulations: The Federal rules restrict any use of the information to criminally investigate or prosecute any alcohol or drug abuse patient.[facility] HospitalIn the event this information is protected by the Federal Confidentiality of Alcohol and Drug Abuse Patient Records regulations: The Federal rules restrict any use of the information to criminally investigate or prosecute any alcohol or drug abuse patient.[facility] HospitalIn the event this information is protected by the Federal Confidentiality of Alcohol and Drug Abuse Patient Records regulations: The Federal rules restrict any use of the information to criminally investigate or prosecute any alcohol or drug abuse patient.[facility] HospitalIn the event this information is protected by the Federal Confidentiality of Alcohol and Drug Abuse Patient Records regulations: The Federal rules restrict any use of the information to criminally investigate or prosecute any alcohol or drug abuse patient.[facility] HospitalIn the event this information is protected by the Federal Confidentiality of Alcohol and Drug Abuse Patient Records regulations: The Federal rules restrict any use of the information to criminally investigate or prosecute any alcohol or drug abuse patient.[facility] HospitalIn the event this information is protected by the Federal Confidentiality of Alcohol and Drug Abuse Patient Records regulations: The Federal rules restrict any use of the information to criminally investigate or prosecute any alcohol or drug abuse patient.[facility] HospitalIn the event this information is protected by the Federal Confidentiality of Alcohol and Drug Abuse Patient Records regulations: The Federal rules restrict any use of the information to criminally investigate or prosecute any alcohol or drug abuse patient.[facility] HospitalIn the event this information is protected by the Federal Confidentiality of Alcohol and Drug Abuse Patient Records regulations: The Federal rules restrict any use of the information to criminally investigate or prosecute any alcohol or drug abuse patient.[facility] HospitalIn the event this information is protected by the Federal Confidentiality of Alcohol and Drug Abuse Patient Records regulations: The Federal rules restrict any use of the information to criminally investigate or prosecute any alcohol or drug abuse patient.[facility] HospitalIn the event this information is protected by the Federal Confidentiality of Alcohol and Drug Abuse Patient Records regulations: The Federal rules restrict any use of the information to criminally investigate or prosecute any alcohol or drug abuse patient.[facility] HospitalIn the event this information is protected by the Federal Confidentiality of Alcohol and Drug Abuse Patient Records regulations: The Federal rules restrict any use of the information to criminally investigate or prosecute any alcohol or drug abuse patient.[facility] HospitalIn the event this information is protected by the Federal Confidentiality of Alcohol and Drug Abuse Patient Records regulations: The Federal rules restrict any use of the information to criminally investigate or prosecute any alcohol or drug abuse patient.[facility] HospitalIn the event this information is protected by the Federal Confidentiality of Alcohol and Drug Abuse Patient Records regulations: The Federal rules restrict any use of the information to criminally investigate or prosecute any alcohol or drug abuse patient.[facility] HospitalIn the event this information is protected by the Federal Confidentiality of Alcohol and Drug Abuse Patient Records regulations: The Federal rules restrict any use of the information to criminally investigate or prosecute any alcohol or drug abuse patient.[facility] HospitalIn the event this information is protected by the Federal Confidentiality of Alcohol and Drug Abuse Patient Records regulations: The Federal rules restrict any use of the information to criminally investigate or prosecute any alcohol or drug abuse patient.[facility] HospitalIn the event this information is protected by the Federal Confidentiality of Alcohol and Drug Abuse Patient Records regulations: The Federal rules restrict any use of the information to criminally investigate or prosecute any alcohol or drug abuse patient.[facility] HospitalIn the event this information is protected by the Federal Confidentiality of Alcohol and Drug Abuse Patient Records regulations: The Federal rules restrict any use of the information to criminally investigate or prosecute any alcohol or drug abuse patient.[facility] HospitalIn the event this information is protected by the Federal Confidentiality of Alcohol and Drug Abuse Patient Records regulations: The Federal rules restrict any use of the information to criminally investigate or prosecute any alcohol or drug abuse patient.[facility] HospitalIn the event this information is protected by the Federal Confidentiality of Alcohol and Drug Abuse Patient Records regulations: The Federal rules restrict any use of the information to criminally investigate or prosecute any alcohol or drug abuse patient.[facility] HospitalIn the event this information is protected by the Federal Confidentiality of Alcohol and Drug Abuse Patient Records regulations: The Federal rules restrict any use of the information to criminally investigate or prosecute any alcohol or drug abuse patient.[facility] HospitalIn the event this information is protected by the Federal Confidentiality of Alcohol and Drug Abuse Patient Records regulations: The Federal rules restrict any use of the information to criminally investigate or prosecute any alcohol or drug abuse patient.[facility] HospitalIn the event this information is protected by the Federal Confidentiality of Alcohol and Drug Abuse Patient Records regulations: The Federal rules restrict any use of the information to criminally investigate or prosecute any alcohol or drug abuse patient.[facility] the event this information is protected by the Federal Confidentiality of Alcohol and Drug Abuse Patient Records regulations: The Federal rules restrict any use of the information to criminally investigate or prosecute any alcohol or drug abuse patient.[facility] HospitalIn the event this information is protected by the Federal Confidentiality of Alcohol and Drug Abuse Patient Records regulations: The Federal rules restrict any use of the information to criminally investigate or prosecute any alcohol or drug abuse patient.[facility] HospitalIn the event this information is protected by the Federal Confidentiality of Alcohol and Drug Abuse Patient Records regulations: The Federal rules restrict any use of the information to criminally investigate or prosecute any alcohol or drug abuse patient.[facility]In the event this information is protected by the Federal Confidentiality of Alcohol and Drug Abuse Patient Records regulations: The Federal rules restrict any use of the information to criminally investigate or prosecute any alcohol or drug abuse patient.[facility] HospitalIn the event this information is protected by the Federal Confidentiality of Alcohol and Drug Abuse Patient Records regulations: The Federal rules restrict any use of the information to criminally investigate or prosecute any alcohol or drug abuse patient.[facility] HospitalIn the event this information is protected by the Federal Confidentiality of Alcohol and Drug Abuse Patient Records regulations: The Federal rules restrict any use of the information to criminally investigate or prosecute any alcohol or drug abuse patient.[facility] HospitalIn the event this information is protected by the Federal Confidentiality of Alcohol and Drug Abuse Patient Records regulations: The Federal rules restrict any use of the information to criminally investigate or prosecute any alcohol or drug abuse patient.[facility] HospitalIn the event this information is protected by the Federal Confidentiality of Alcohol and Drug Abuse Patient Records regulations: The Federal rules restrict any use of the information to criminally investigate or prosecute any alcohol or drug abuse patient.[facility] HospitalIn the event this information is protected by the Federal Confidentiality of Alcohol and Drug Abuse Patient Records regulations: The Federal rules restrict any use of the information to criminally investigate or prosecute any alcohol or drug abuse patient.[facility] HospitalIn the event this information is protected by the Federal Confidentiality of Alcohol and Drug Abuse Patient Records regulations: The Federal rules restrict any use of the information to criminally investigate or prosecute any alcohol or drug abuse patient.[facility] HospitalIn the event this information is protected by the Federal Confidentiality of Alcohol and Drug Abuse Patient Records regulations: The Federal rules restrict any use of the information to criminally investigate or prosecute any alcohol or drug abuse patient.[facility] HospitalIn the event this information is protected by the Federal Confidentiality of Alcohol and Drug Abuse Patient Records regulations: The Federal rules restrict any use of the information to criminally investigate or prosecute any alcohol or drug abuse patient.[facility] HospitalIn the event this information is protected by the Federal Confidentiality of Alcohol and Drug Abuse Patient Records regulations: The Federal rules restrict any use of the information to criminally investigate or prosecute any alcohol or drug abuse patient.[facility] HospitalIn the event this information is protected by the Federal Confidentiality of Alcohol and Drug Abuse Patient Records regulations: The Federal rules restrict any use of the information to criminally investigate or prosecute any alcohol or drug abuse patient.[facility] HospitalIn the event this information is protected by the Federal Confidentiality of Alcohol and Drug Abuse Patient Records regulations: The Federal rules restrict any use of the information to criminally investigate or prosecute any alcohol or drug abuse patient.[facility] HospitalIn the event this information is protected by the Federal Confidentiality of Alcohol and Drug Abuse Patient Records regulations: The Federal rules restrict any use of the information to criminally investigate or prosecute any alcohol or drug abuse patient.[facility] HospitalIn the event this information is protected by the Federal Confidentiality of Alcohol and Drug Abuse Patient Records regulations: The Federal rules restrict any use of the information to criminally investigate or prosecute any alcohol or drug abuse patient.[facility] HospitalIn the event this information is protected by the Federal Confidentiality of Alcohol and Drug Abuse Patient Records regulations: The Federal rules restrict any use of the information to criminally investigate or prosecute any alcohol or drug abuse patient.[facility] HospitalIn the event this information is protected by the Federal Confidentiality of Alcohol and Drug Abuse Patient Records regulations: The Federal rules restrict any use of the information to criminally investigate or prosecute any alcohol or drug abuse patient.[facility] HospitalIn the event this information is protected by the Federal Confidentiality of Alcohol and Drug Abuse Patient Records regulations: The Federal rules restrict any use of the information to criminally investigate or prosecute any alcohol or drug abuse patient.[facility] HospitalIn the event this information is protected by the Federal Confidentiality of Alcohol and Drug Abuse Patient Records regulations: The Federal rules restrict any use of the information to criminally investigate or prosecute any alcohol or drug abuse patient.[facility] HospitalIn the event this information is protected by the Federal Confidentiality of Alcohol and Drug Abuse Patient Records regulations: The Federal rules restrict any use of the information to criminally investigate or prosecute any alcohol or drug abuse patient.[facility] HospitalIn the event this information is protected by the Federal Confidentiality of Alcohol and Drug Abuse Patient Records regulations: The Federal rules restrict any use of the information to criminally investigate or prosecute any alcohol or drug abuse patient.[facility] HospitalIn the event this information is protected by the Federal Confidentiality of Alcohol and Drug Abuse Patient Records regulations: The Federal rules restrict any use of the information to criminally investigate or prosecute any alcohol or drug abuse patient.[facility] HospitalIn the event this information is protected by the Federal Confidentiality of Alcohol and Drug Abuse Patient Records regulations: The Federal rules restrict any use of the information to criminally investigate or prosecute any alcohol or drug abuse patient.[facility] Reason for Visit (unrecogniz ed section and content) Specialty Diagnoses / Procedures Referred By Contrandal t Referred To Contact [facility] Diagnoses Generalized weakness Falls frequently Procedures CONSULT TO PHYSICAL THERAPY PHYSICAL THERAPY EVALUATION HIGH COMPLEX 45 MINS Sharda Carl PA-C [address] [place] [address] [facility] [address] [place] [address] Referral ID Status Reason Start Date Expiration Date Visits Requested Visits Authorized [id number] Authorized PCP Requested Referral Auto-Generate d Referral 03/14/2022 03/14/2023 99 99 Reason Comments PT Progress Note Reason Comments Radiology CT Specialty Diagnoses / Procedures Referred By Contac t Referred To Contact CT IMAGING Diagnoses Rectal cancer (HCC) Procedures CT CHEST W IVCON DIAGNOSTIC COMPUTED TOMOGRAPHY THORAX W/CONTRAST Tameka Marshall APRN.ENVIRONMENTAL FIELD SERVICES TECHNICIAN [address] [place] [address] Ct [facility] Referral ID Status Reason Start Date Expiration Date V isits Requested Visits Authorized [id number] Closed Auto-Generate d Referral 11/14/2021 12/14/2022 1 1 Reason Onset Date Comments Refill Request 12/05/2021 Reason Comments Recheck depression Reason Comments Blood Draw ([facility]) Reason Comments Pre-Op Exam Reason Comments Port Flush Reason Comments Medication Question anxiety/depression Reason Onset Date Comments Nurse Triage Call 01/17/2022 Pain level 9; requesting pain medication for right hip Reason Comments outside echo Reason Comments Results Reason Comments Patient Question Reason Comments Leg Cramps Reason Comments Established Patient Reason Comments Established Patient Follow-Up Reason Comments New Patient Specialty Diagnoses / Procedures Referred By Contac t Referred To Contact Vascular Medicine Diagnoses Bilateral carotid artery stenosis Positional lightheadedness Procedures CONSULT TO VASCULAR MEDICINE OFFICE/OUTPATIENT NEW HIGH MDM 60-74 MINUTES Sharda Carl PA-C [address] [place] [address] Referral ID Status Reason Start Date Expiration Date V isits Requested Visits Authorized [id number] Closed PCP Requested Referral 02/04/2022 02/04/2023 1 1 Reason Comments Recheck Reason Onset Date Comments Refill Request 06/06/2022 Reason Comments Arm Injury L arm injury, fell a nd hit arm x last night Reason Comments Pain ER follow up on - fa ll on left shoulder/elbow Reason Onset Date Comments Refill Request 07/29/2022 Reason Comments outside PSA Reason Comments New Patient Consult Cognitive im pairment and mild weakness Reason Comments Patient Supplies Reason Comments Patient Update Reason Comments Follow Up Patient is here for 4 month follow up Reason Comments Appointment Reason Comments Rash Patient is here for rash on both legs below the knee x 4 days Reason Comments Follow Up Reason Onset Date Comments Refill Request 10/28/2022 Reason Comments ER F/U ER- [facility] Reason Comments Letter Reason Comments ED Follow-up Reason Comments Appointment Reason Comments Orders Reason Comments Radiology NM Reason Comments XRay Report Reason Comments Anxiety Reason Comments Consult Reason Comments Patient Education Reason Onset Date Comments Simulation Request Form 12/25/2022 Reason Comments Memory Problems Anxiety Reason Comments Radiotherapy On-treatment Visit Reason Comments follow up appointments Reason Comments Pain Reason Comments outside imaging Reason Comments Outside H+P Reason Comments home health calling and request verbal o rder Reason Comments Hospital F/U Reason Onset Date Comments Opened In Error 05/09/2023 Reason Comments C Order Request Medication Request Reason Comments Refill Request Reason Comments Home Health Point of Care Results Reason Comments Opened In Error Reason Onset Date Comments Refill Request 05/16/2023 Half-Way Plan of Care 05/16/2023 Reason Comments OT plan of care Reason Comments Cough Sob, congestion x 3 days Reason Onset Date Comments Refill Request 05/30/2023 Reason Comments POA question Reason Comments ext document ER report Reason Comments daughter needs note for court hearing to day Reason Comments DME for ostomy supplies Specialty Diagnoses / Procedures Referred By Contac t Referred To Contact CT IMAGING Diagnoses Rectal cancer (HCC) Procedures CT CHEST W IVCON DIAGNOSTIC COMPUTED TOMOGRAPHY THORAX W/CONTRAST Tameka Marshall, [employer] PROCESS WORKER.ENVIRONMENTAL FIELD SERVICES TECHNICIAN [address] [place] [address] [place] [address] Referral ID Status Reason Start Date Expiration Date V isits Requested Visits Authorized [id number] Closed Auto-Generate d Referral 03/21/2022 04/20/2023 1 1 Specialty Diagnoses / Procedures Referred By Contac t Referred To Contact CT IMAGING Diagnoses Malignant neoplasm of rectum (HCC) Procedures CT ABD/PEL W IVCON CT ABD & PELVIS W/CONTRAST Sam Greenberg, DO [address] [place] [address] [place] [address] Referral ID Status Reason Start Date Expiration Date V isits Requested Visits Authorized [id number] Closed Auto-Generate d Referral 04/01/2023 04/30/2024 1 1 Specialty Diagnoses / [facility] Diagnoses Malignant neoplasm of rectum (HCC) Procedures CT CHEST W IVCON DIAGNOSTIC COMPUTED TOMOGRAPHY THORAX W/CONTRAST Sam Greenberg, DO [address] [place] [address] [place] [address] Referral ID Status Reason Start Date Expiration Date V isits Requested Visits Authorized [id number] Closed Auto-Generate d Referral 02/25/2023 03/26/2024 1 1 Specialty Diagnoses / Procedures Referred By Contac t Referred To Contact CT IMAGING Diagnoses Rectal cancer (HCC) Abnormal CT of the abdomen Procedures CT ABD/PEL W IVCON CT ABD & PELVIS W/CONTRAST Tameka Marshall APRN.ENVIRONMENTAL FIELD SERVICES TECHNICIAN [address] [place] [address] [place] [address] Referral ID Status Reason Start Date Expiration Date V isits Requested Visits Authorized [id number] Closed Auto-Generate d Referral 10/09/2022 11/08/2023 1 1 Specialty Diagnoses / Procedures Referred By Contac t Referred To Contact [facility] IMAGING Diagnoses Dementia without behavioral disturbance (HCC) Procedures MRI BRAIN WO IVCON MRI BRAIN BRAIN STEM W/O CONTRAST MATERIAL Mikhail Liu Jr., MD [address] [facility] [address] [place] [address] [place] [address] Referral ID Status Reason Start Date Expiration Date V isits Requested Visits Authorized [id number] Closed Auto-Generate d Referral 06/24/2022 07/24/2023 [address] Referral ID Status Reason Start Date Expiration Date V isits Requested Visits Authorized [id number] Closed Auto-Generate d Referral 04/01/2023 04/30/2024 1 1 Reason Comments swollen elbow X 1 week Reason Comments New Patient Evaluation Specialty Diagnoses / Procedures Referred By Contac t Referred To Contact Neurology Diagnoses Dementia, unspecified dementia severity, unspecified dementia type, unspecified whether behavioral, psychotic, or mood disturbance or anxiety (HCC) Procedures CONSULT TO NEUROLOGY OFFICE/OUTPATIENT NEW HIGH MDM 60-74 MINUTES Mikhail Liu Jr., MD [address] [place] [address] Referral ID Status Reason Start Date Expiration Date V isits Requested Visits Authorized [id number] Closed PCP Requested Referral 06/30/2023 06/29/2024 1 1 Care Teams (unrecognized sec tion and content) Shoe Sticks Repairer Relationship Specialty Start Date End Date Vishal Jones MD [address] [place] [address] PCP - General Family Practice 09/25/17 Deborah Sabillon RN Specialty Supply Coordinator Oncology 07/30/17 Clement Werner MD, [address] [place] [address] Physician Radiation Oncology 01/29/18 Vishal Jones MD [address] [place] [address] Home Care Physician Family Practice 08/17/20 Maye Gonzalez MD Consulting General Surgery 08/17/20 Dayna Mann RN [address] [place] [address] Rail Car Driver Post Acute Care 08/17/20 Maye Gonzalez MD Referring General Surgery 08/23/20 Shoe Sticks Repairer Relationship Specialty Start Date End Date Vishal Jones MD [address] [place] [address] PCP - General Family Practice 09/25/17 Deborah Sabillon RN Specialty Supply Coordinator Oncology 07/30/17 Clement Werner MD, [address] [place] [address] Physician Radiation Oncology 01/29/18 Vishal Jones MD [address] [place] [address] Home Care Physician Family Practice 08/17/20 Maye Gonzalez MD Consulting General Surgery 08/17/20 Dayna Mann RN [address] [place] [address] Rail Car Driver Post Acute Care 08/17/20 Maye Gonzalez MD Referring General Surgery 08/23/20 Shoe Sticks Repairer Relationship Specialty Start Date End Date Vishal Jones MD [address] [facility] [place] [address] PCP - General Family Practice 09/25/17 Deborah Sabillon RN Specialty Supply Coordinator Oncology 07/30/17 Clement Werner MD, [address] [facility] [place] [address] Physician Radiation Oncology 01/29/18 Vishal Jones MD [address] [facility] [place] [address] Home Care Physician Family Practice 08/17/20 Maye Gonzalez MD Consulting General Surgery 08/17/20 Dayna Mann RN [address] [place] [address] Rail Car Driver Post Acute Care 08/17/20 Maye Gonzalez MD Referring General Surgery 08/23/20 Shoe Sticks Repairer Relationship Specialty Start Date End Date Vishal Jones MD [address] [facility] [place] [address] PCP - General Family Practice 09/25/17 Deborah Sabillon RN Specialty Supply Coordinator Oncology 07/30/17 Clement Werner MD, MD [address] [facility] [place] [address] Physician Radiation Oncology 01/29/18 Vishal Jones MD [address] [facility] [place] [address] Home Care Physician Family Practice 08/17/20 Maye Gonzalez MD Consulting General Surgery 08/17/20 Dayna Mann RN [address] [place] [address] Rail Car Driver Post Acute Care 08/17/20 Maye Gonzalez MD Referring General Surgery 08/23/20 Shoe Sticks Repairer Relationship Specialty Start Date End Date Vishal Jones MD [address] [place] [address] PCP - General Family Practice 09/25/17 Deborah Sabillon RN Specialty Supply Coordinator Oncology 07/30/17 Clement Werner MD, MD [address] [place] [address] Physician Radiation Oncology 01/29/18 Vishal Jones MD [address] [facility] [place] [address] Home Care Physician Family Practice 08/17/20 Maye Gonzalez MD Consulting General Surgery 08/17/20 Dayna Mann RN [address] [facility] [address] Rail Car Driver Post Acute Care 08/17/20 Maye Gonzalez MD Referring General Surgery 08/23/20 Shoe Sticks Repairer Relationship Specialty Start Date End Date Vishal Jones MD [address] [facility] [place] [address] PCP - General Family Practice 09/25/17 Deborah Sabillon RN Specialty Supply Coordinator Oncology 07/30/17 Clement Werner MD, [address] [place] [address] Physician Radiation Oncology 01/29/18 Vishal Jones MD [address] [place] [address] Home Care Physician Family Practice 08/17/20 Maye Gonzalez MD Consulting General Surgery 08/17/20 Dayna Mann RN [address] [place], [place] [id number] Rail Car Driver Post Acute Care 08/17/20 Maye Gonzalez MD Referring General Surgery 08/23/20 Shoe Sticks Repairer Relationship Specialty Start Date End Date Vishal Jones MD [address] [place] [address] PCP - General Family Practice 09/25/17 Deborah Sabillon RN Specialty Supply Coordinator Oncology 07/30/17 Clement Werner MD, MD [address] [place] [address] Physician Radiation Oncology 01/29/18 Vishal Jones MD [address] [place] [address] Home Care Physician Family Practice 08/17/20 Maye Gonzalez MD Consulting General Surgery 08/17/20 Dayna Mann RN [address] [place], [place] [phone] Rail Car Driver Post Acute Care 08/17/20 Maye Gonzalez MD Referring General Surgery 08/23/20 Shoe Sticks Repairer Relationship Specialty Start Date End Date Vishal Jones MD [address] [place] [address] PCP - General Family Practice 09/25/17 Deborah Sabillon RN Specialty Supply Coordinator Oncology 07/30/17 Clement Werner MD, MD [address] [place] [address] Physician Radiation Oncology 01/29/18 Vishal Jones MD [address] [place] [address] Home Care Physician Family Practice 08/17/20 Maye Gonzalez MD Consulting General Surgery 08/17/20 Dayna Mann RN [address] [place], [place] [phone] Rail Car Driver Post Acute Care 08/17/20 Maye Gonzalez MD Referring General Surgery 08/23/20 Shoe Sticks Repairer Relationship Specialty Start Date End Date Vishal Jones MD [address] [place] [address] PCP - General Family Practice 09/25/17 Deborah Sabillon RN Specialty Supply Coordinator Oncology 07/30/17 Clement Werner MD, [address] [place] [address] Physician Radiation Oncology 01/29/18 Vishal Jones MD [address] [place] [address] Home Care Physician Family Practice 08/17/20 Maye Gonzalez MD Consulting General Surgery 08/17/20 Dayna Mann RN [address] [facility] [place] [phone] Rail Car Driver Post Acute Care 08/17/20 Maye Gonzalez MD Referring General Surgery 08/23/20 Shoe Sticks Repairer Relationship Specialty Start Date End Date Vishal Jones MD [address] [place] [address] PCP - General Family Practice 09/25/17 Deborah Sabillon RN Specialty Supply Coordinator Oncology 07/30/17 Clement Werner MD, [address] [place] [address] Physician Radiation Oncology 01/29/18 Vishal Jones MD [address] [place] [address] Home Care Physician Family Practice 08/17/20 Maye Gonzalez MD Consulting General Surgery 08/17/20 Dayna Mann, ELIE [address] [place], [place] [phone] Rail Car Driver Post Acute Care 08/17/20 Maye Gonzalez MD Referring General Surgery 08/23/20 Shoe Sticks Repairer Relationship Specialty Start Date End Date Vishal Jones MD [address] [place] [address] PCP - General Family Practice 09/25/17 Deborah Sabillon RN Specialty Supply Coordinator Oncology 07/30/17 Clement Werner MD, [address] [place] [address] Physician Radiation Oncology 01/29/18 Vishal Jones MD [address] [place] [address] Home Care Physician Family Practice 08/17/20 Maye Gonzalez MD Consulting General Surgery 08/17/20 Dayna Mann RN [address] [place] [address] Rail Car Driver Post Acute Care 08/17/20 Maye Gonzalez MD Referring General Surgery 08/23/20 Shoe Sticks Repairer Relationship Specialty Start Date End Date Vishal Jones MD [address] [place] [address] PCP - General Family Practice 09/25/17 Deborah Sabillon RN Specialty Supply Coordinator Oncology 07/30/17 Clement Werner MD, MD [address] [place] [address] Physician Radiation Oncology 01/29/18 Vishal Jones MD [address] [facility] [place] [address] Home Care Physician Family Practice 08/17/20 Maye Gonzalez MD Consulting General Surgery 08/17/20 Dayna Mann RN [address] [place] [address] Rail Car Driver Post Acute Care 08/17/20 Maye Gonzalez MD Referring General Surgery 08/23/20 Shoe Sticks Repairer Relationship Specialty Start Date End Date Vishal Jones MD [address] [facility] [place] [address] PCP - General Family Practice 09/25/17 Deborah Sabillon RN Specialty Supply Coordinator Oncology 07/30/17 Clement Werner MD, MD [address] [place] [address] Physician Radiation Oncology 01/29/18 Vishal Jones MD [address] [facility] [address] Home Care Physician Family Practice 08/17/20 Maye Gonzalez MD Consulting General Surgery 08/17/20 Dayna Mann RN [address] [place], [place] [phone] Rail Car Driver Post Acute Care 08/17/20 Maye Gonazlez MD Referring General Surgery 08/23/20 Shoe Sticks Repairer Relationship Specialty Start Date End Date Vishal Jones MD [address] [place] [address] PCP - General Family Practice 09/25/17 Deborah Sabillon RN Specialty Supply Coordinator Oncology 07/30/17 Clement Werner MD, [address] [place] [address] Physician Radiation Oncology 01/29/18 Vishal Jones MD [address] [place] [address] Home Care Physician Family Practice 08/17/20 Maye Gonzalez MD Consulting General Surgery 08/17/20 Dayna Mann RN [address] [place], [place] [phone] Rail Car Driver Post Acute Care 08/17/20 Maye Gonzalez MD Referring General Surgery 08/23/20 Shoe Sticks Repairer Relationship Specialty Start Date End Date Vishal Jones MD [address] [place] [address] PCP - General Family Practice 09/25/17 Deborah Sabillon RN Specialty Supply Coordinator Oncology 07/30/17 Clement Werner MD, [address] [place] [address] Physician Radiation Oncology 01/29/18 Vishal Jones MD [address] [place] [address] Home Care Physician Family Practice 08/17/20 Maye Gonzalez MD Consulting General Surgery 08/17/20 Dayna Mann RN [address] [place], [place] [phone] Rail Car Driver Post Acute Care 08/17/20 Maye Gonzalez MD Referring General Surgery 08/23/20 Shoe Sticks Repairer Relationship Specialty Start Date End Date Vishal Jones MD [address] [place] [address] PCP - General Family Practice 09/25/17 Deborah Sabillon RN Specialty Supply Coordinator Oncology 07/30/17 Clement Werner MD, [address] [place] [address] Physician Radiation Oncology 01/29/18 Vishal Jones MD [address] [place] [address] Home Care Physician Family Practice 08/17/20 Maye Gonzalez MD Consulting General Surgery 08/17/20 Dayna Mann RN [address] [place] [address] Rail Car Driver Post Acute Care 08/17/20 Maye Gonzalez MD Referring General Surgery 08/23/20 Shoe Sticks Repairer Relationship Specialty Start Date End Date Vishal Jones MD [address] [place] [address] PCP - General Family Medicine 09/25/17 Deborah Sabillon RN Specialty Supply Coordinator Oncology 07/30/17 Clement Werner MD, [address] [place] [address] Physician Radiation Oncology 01/29/18 Vishal Jones MD [address] [place] [address] Home Care Provider Family Medicine 08/17/20 Maye Gonzalez MD Consulting General Surgery 08/17/20 Dayna Mann RN [address] [place], [place] [phone] Rail Car Driver Post Acute Care 08/17/20 Maye Gonzalez MD Referring General Surgery 08/23/20 Shoe Sticks Repairer Relationship Specialty Start Date End Date Vishal Jones MD [address] [place] [address] PCP - General Family Medicine 09/25/17 Deborah Sabillon RN Specialty Supply Coordinator Oncology 07/30/17 Clement Werner MD, [address] [place] [address] Physician Radiation Oncology 01/29/18 Vishal Jones MD [address] [place] [address] Home Care Provider Family Medicine 08/17/20 Maye Gonzalez MD Consulting General Surgery 08/17/20 Dayna Mann RN [address] [place], [place] [phone] Rail Car Driver Post Acute Care 08/17/20 Maye Gonzalez MD Referring General Surgery 08/23/20 Shoe Sticks Repairer Relationship Specialty Start Date End Date Vishal Jones MD [address] [place] [address] PCP - General Family Medicine 09/25/17 Deborah Sabillon RN Specialty Supply Coordinator Oncology 07/30/17 Clement Werner MD, [address] [place] [address] Physician Radiation Oncology 01/29/18 Vishal Jones MD [address] [place] [address] Home Care Provider Family Medicine 08/17/20 Maye Gonzalez MD Consulting General Surgery 08/17/20 Dayna Mann, RN [address] [place], [place] [phone] Rail Car Driver Post Acute Care 08/17/20 Maye Gonzalez MD Referring General Surgery 08/23/20 Shoe Sticks Repairer Relationship Specialty Start Date End Date Vishal Jones MD [address] [place] [address] PCP - General Family Medicine 09/25/17 Deborah Sabillon RN Specialty Supply Coordinator Oncology 07/30/17 Clement Werner MD, [address] [place] [address] Physician Radiation Oncology 01/29/18 Vishal Jones MD [address] [place] [address] Home Care Provider Family Medicine 08/17/20 Maye Gonzalez MD Consulting General Surgery 08/17/20 Dayna Mann RN [address] [place] [address] Rail Car Driver Post Acute Care 08/17/20 Maye Gonzalez MD Referring General Surgery 08/23/20 Shoe Sticks Repairer Relationship Specialty Start Date End Date Vishal Jones MD [address] [place] [address] PCP - General Family Medicine 09/25/17 Deborah Sabillon RN Specialty Supply Coordinator Oncology 07/30/17 Clement Werner MD, MD [address] [place] [address] Physician Radiation Oncology 01/29/18 Vishal Jones MD [address] [place] [address] Home Care Provider Family Medicine 08/17/20 Maye Gonzalez MD Consulting General Surgery 08/17/20 Dayna Mann RN [address] [place] [address] Rail Car Driver Post Acute Care 08/17/20 Maye Gonzalez MD Referring General Surgery 08/23/20 Shoe Sticks Repairer Relationship Specialty Start Date End Date Vishal Jones MD [address] [facility] [address] PCP - General Family Medicine 09/25/17 Deborah Sabillon RN Specialty Supply Coordinator Oncology 07/30/17 Clement Werner MD, MD [address] [place] [address] Physician Radiation Oncology 01/29/18 Vishal Jones MD [address] [facility] [place] [address] Home Care Provider Family Medicine 08/17/20 Maye Gonzalez MD [address] [place] [facility] [place] [address] Consulting General Surgery 08/17/20 Dayna Mann RN [address] [place], [place] [phone] Rail Car Driver Post Acute Care 08/17/20 Maye Gonzalez MD [address] [place] [facility] [address] Referring General Surgery 08/23/20 Shoe Sticks Repairer Relationship Specialty Start Date End Date Vishal Jones MD [address] [facility] [place] [address] PCP - General Family Medicine 09/25/17 Deborah Sabillon RN Specialty Supply Coordinator Oncology 07/30/17 Clement Werner MD, [address] [place] [facility] [address] Physician Radiation Oncology 01/29/18 Vishal Jones MD [address] [facility] [place] [address] Home Care Provider Family Medicine 08/17/20 Maye Gonzalez MD [address] [place] [facility] [place] [address] Consulting General Surgery 08/17/20 Dayna Mann RN [address] [place] [address] Rail Car Driver Post Acute Care 08/17/20 Maye Gonzalez MD [address] [place] [facility] [address] Referring General Surgery 08/23/20 Shoe Sticks Repairer Relationship Specialty Start Date End Date Vishal Jones MD [address] [facility] [place] [address] PCP - General Family Medicine 09/25/17 Deborah Sabillon RN Specialty Supply Coordinator Oncology 07/30/17 Clement Werner MD, [address] [facility] [address] Physician Radiation Oncology 01/29/18 Vishal Jones MD [address] [facility] [place] [address] Home Care Provider Family Medicine 08/17/20 Maye Gonzalez MD [address] [place] [facility] [place] [address] Consulting General Surgery 08/17/20 Dayna Mann RN [address] [place], [place] [phone] Rail Car Driver Post Acute Care 08/17/20 Maye Gonzalez MD [address] [place] [facility] [address] Referring General Surgery 08/23/20 Shoe Sticks Repairer Relationship Specialty Start Date End Date Vishal Jones MD [address] [facility] [place] [address] PCP - General Family Medicine 09/25/17 Deborah Sabillon RN Specialty Supply Coordinator Oncology 07/30/17 Clement Werner MD, [address] [place] [facility] [address] Physician Radiation Oncology 01/29/18 Vishal Jones MD [address] [facility] [place] [address] Home Care Provider Family Medicine 08/17/20 Maye Gonzalez MD [address] [facility] [address] Consulting General Surgery 08/17/20 Dayna Mann RN [address] [place] [address] Rail Car Driver Post Acute Care 08/17/20 Maye Gonzalez MD [address] [facility], [place] 78[address]41 Referring General Surgery 08/23/20 Shoe Sticks Repairer Relationship Specialty Start Date End Date Vishal Jones MD [address] [facility] [place] [address] PCP - General Family Medicine 09/25/17 Deborah Sabillon RN Specialty Supply Coordinator Oncology 07/30/17 Clement Werner MD, [address] [facility] [address] Physician Radiation Oncology 01/29/18 Vishal Jones MD [address] [facility] [place] [address] Home Care Provider Family Medicine 08/17/20 Maye Gonzalez MD [address] [place] [facility] [address] Consulting General Surgery 08/17/20 Dayna Mann RN [address] [place] [address] Rail Car Driver Post Acute Care 08/17/20 Maye Gonzalez MD [address] [place] [facility] [address] Referring General Surgery 08/23/20 Shoe Sticks Repairer Relationship Specialty Start Date End Date Vishal Jones MD [address] [facility] [place] [address] PCP - General Family Medicine 09/25/17 Deborah Sabillon RN Specialty Supply Coordinator Oncology 07/30/17 Clement Werner MD, [address] [place] [facility] [address] Physician Radiation Oncology 01/29/18 Vishal Jones MD [address] [facility] [place] [address] Home Care Provider Family Medicine 08/17/20 Maye Gonzalez MD [address] [place] [facility] [address] Consulting General Surgery 08/17/20 Dayna Mann RN [address] [facility], [place] [phone] Rail Car Driver Post Acute Care 08/17/20 Maye Gonzalez MD [address] [place] [facility] [address] Referring General Surgery 08/23/20 Shoe Sticks Repairer Relationship Specialty Start Date End Date Vishal Jones MD [address] [facility] [place] [address] PCP - General Family Medicine 09/25/17 Deborah Sabillon RN Specialty Supply Coordinator Oncology 07/30/17 Clement Werner MD, MD [address] [facility] [address] Physician Radiation Oncology 01/29/18 Vishal Jones MD [address] [facility] [place] [address] Home Care Provider Family Medicine 08/17/20 Maye Gonzalez MD [address] [place] [facility] [address] Consulting General Surgery 08/17/20 Dayna Mann RN [address] [place], [place] 9847431 Rail Car Driver Post Acute Care 08/17/20 Maye Gonzalez MD [address] [place] [facility] [address] Referring General Surgery 08/23/20 Shoe Sticks Repairer Relationship Specialty Start Date End Date Vishal Jones MD [address] [facility] [place] [address] PCP - General Family Medicine 09/25/17 Deborah Sabillon RN Specialty Supply Coordinator Oncology 07/30/17 Clement Werner MD, [address] [facility] [address] Physician Radiation Oncology 01/29/18 Vishal Jones MD [address] [place] [address] Home Care Provider Family Medicine 08/17/20 Maye Gonzalez MD [address] [place] [address] Consulting General Surgery 08/17/20 Dayna Mann, LEIE [address] [place], [place] [phone] Rail Car Driver Post Acute Care 08/17/20 Maye Gonzalez MD [address] [facility] [place] [address] Referring General Surgery 08/23/20 Shoe Sticks Repairer Relationship Specialty Start Date End Date Vishal Jones MD [address] [facility] [place] [address] PCP - General Family Medicine 09/25/17 Deborah Sabillon RN Specialty Supply Coordinator Oncology 07/30/17 Clement Werner MD, [address] [facility] [place] [address] Physician Radiation Oncology 01/29/18 Vishal Jones MD [address] [facility] [place] [address] Home Care Provider Family Medicine 08/17/20 Maye Gonzalez MD [address] [facility], [place] [address] Consulting General Surgery 08/17/20 Dayna Mann RN [address] [place] [address] Rail Car Driver Post Acute Care 08/17/20 Myae Gonzalez MD [address] [place] [facility] [address] Referring General Surgery 08/23/20 Shoe Sticks Repairer Relationship Specialty Start Date End Date Vishal Jones MD [address] [place] [address] PCP - General Family Medicine 09/25/17 Dbeorah Sabillon RN Specialty Supply Coordinator Oncology 07/30/17 Clement Werner MD, [address] [place] [facility] [address] Physician Radiation Oncology 01/29/18 Vishal Jones MD [address] [place] [address] Home Care Provider Family Medicine 08/17/20 Maye Gonzalez MD [address] [place], [place] 482061 Consulting General Surgery 08/17/20 Dayna Mann RN [address] [place] [address] Rail Car Driver Post Acute Care 08/17/20 Maye Gonzalez MD [address] [facility] [place] [address] Referring General Surgery 08/23/20 Shoe Sticks Repairer Relationship Specialty Start Date End Date Vishal Jones MD [address] [place] [address] PCP - General Family Medicine 09/25/17 Deborah Sabillon RN Specialty Supply Coordinator Oncology 07/30/17 Clement Werner MD, [address] [facility] [address] Physician Radiation Oncology 01/29/18 Vishal Jones MD [address] [facility] [place] [address] Home Care Provider Family Medicine 08/17/20 Maye Gonzalez MD [address] [facility] [place] [address] Consulting General Surgery 08/17/20 Dayna Mann RN [address] [place], [place] [phone] Rail Car Driver Post Acute Care 08/17/20 Maye Gonzalez MD [address] [place] [facility] [address] Referring General Surgery 08/23/20 Shoe Sticks Repairer Relationship Specialty Start Date End Date Vishal Jones MD [address] [facility] [place] [address] PCP - General Family Medicine 09/25/17 Deborah Sabillon RN Specialty Supply Coordinator Oncology 07/30/17 Clement Werner MD, [address] [place] [facility] [address] Physician Radiation Oncology 01/29/18 Vishal Jones MD [address] [facility] [place] [address] Home Care Provider Family Medicine 08/17/20 Maye Gonzalez MD [address] [facility] [address] Consulting General Surgery 08/17/20 Dayna Mann RN [address] [place] [address] Rail Car Driver Post Acute Care 08/17/20 Maye Gonzalez MD [address] [place], [place] 587[address] Referring General Surgery 08/23/20 Shoe Sticks Repairer Relationship Specialty Start Date End Date Vishal Jones MD [address] [place] [address] PCP - General Family Medicine 09/25/17 Deborah Sabillon RN Specialty Supply Coordinator Oncology 07/30/17 Clement Werner MD, [address] [place] [address] Physician Radiation Oncology 01/29/18 Vishal Jones MD [address] [place] [address] Home Care Provider Family Medicine 08/17/20 Maye Gonzalez MD [address] [place] [address] Consulting General Surgery 08/17/20 Dayna Mann RN [address] [place], [place] [phone] Rail Car Driver Post Acute Care 08/17/20 Maye Gonzalez MD [address] [place] [address] Referring General Surgery 08/23/20 Shoe Sticks Repairer Relationship Specialty Start Date End Date Vishal Jones MD [address] [place] [address] PCP - General Family Medicine 09/25/17 Deborah Sabillon RN Specialty Supply Coordinator Oncology 07/30/17 Clement Werner MD, [address] [place] [address] Physician Radiation Oncology 01/29/18 Vishal Jones MD [address] [facility] [place] [address] Home Care Provider Family Medicine 08/17/20 Maye Gonzalez MD [address] [place] [facility] [address] Consulting General Surgery 08/17/20 Dayna Mann RN [address] [place], [place] [phone] Rail Car Driver Post Acute Care 08/17/20 Maye Gonzalez MD [address] [place] [facility] [address] Referring General Surgery 08/23/20 Shoe Sticks Repairer Relationship Specialty Start Date End Date Vishal Jones MD [address] [facility] [place] [address] PCP - General Family Medicine 09/25/17 Deborah Sabillon RN Specialty Supply Coordinator Oncology 07/30/17 Clement Werner MD, [address] [place] [facility] [address] Physician Radiation Oncology 01/29/18 Vishal Jones MD [address] [facility] [place] [address] Home Care Provider Family Medicine 08/17/20 Maye Gonzalez MD [address] [place] [facility] [address] Consulting General Surgery 08/17/20 Dayna Mann RN [address] [place], [place] 1065431 Rail Car Driver Post Acute Care 08/17/20 Maye Gonzalez MD [address] [place] [facility] [address] Referring General Surgery 08/23/20 Shoe Sticks Repairer Relationship Specialty Start Date End Date Vishal Jones MD [address] [facility] [place] [address] PCP - General Family Medicine 09/25/17 Deborah Sabillon RN Specialty Supply Coordinator Oncology 07/30/17 Clement Werner MD, [address] [place] [facility] [address] Physician Radiation Oncology 01/29/18 Vishal Jones MD [address] [facility] [place] [address] Home Care Provider Family Medicine 08/17/20 Maye Gonzalez MD [address] [place] [facility] [address] Consulting General Surgery 08/17/20 Dayna Mann, ELIE [address] [facility], [place] [phone] Rail Car Driver Post Acute Care 08/17/20 Maye Gonzalez MD [address] [facility] [address] Referring General Surgery 08/23/20 Shoe Sticks Repairer Relationship Specialty Start Date End Date Vishal Jones MD [address] [facility] [place] [address] PCP - General Family Medicine 09/25/17 Deborah Sabillon RN Specialty Supply Coordinator Oncology 07/30/17 Clement Werner MD, [address] [facility] [address] Physician Radiation Oncology 01/29/18 Vishal Jones MD [address] [facility] [place] [address] Home Care Provider Family Medicine 08/17/20 Maye Gonzalez MD [address] [facility], [place] 8[address]371 Consulting General Surgery 08/17/20 Dayna Mann RN [address] [facility], [place] [id number] Rail Car Driver Post Acute Care 08/17/20 Maye Gonzalez MD [address] [place], [place] [address] Referring General Surgery 08/23/20 Shoe Sticks Repairer Relationship Specialty Start Date End Date Vishal Jones MD [address] [facility] [place], [place] [address]251 PCP - General Family Medicine 09/25/17 Deborah Sabillon RN Specialty Supply Coordinator Oncology 07/30/17 Clement Werner MD, MD [address] [place] [place], [place] [address] Physician Radiation Oncology 01/29/18 Vishal Jones MD [address] [facility] [place], [place] [address] Home Care Provider Family Medicine 08/17/20 Maye Gonzalez MD [address] [place], [place] [address] Consulting General Surgery 08/17/20 Dayna Mann RN [address] [place] [address] Rail Car Driver Post Acute Care 08/17/20 Maye Gonzalez MD [address] [place] [place], [place] [address] Referring General Surgery 08/23/20 Shoe Sticks Repairer Relationship Specialty Start Date End Date Vishal Jones MD [address] [facility] [place], [place] [address]3979 [phone] PCP - General Family Medicine 09/25/17 Deborah Sabillon RN Specialty Supply Coordinator Oncology 07/30/17 Clement Werner MD, MD [address] [place] [address] Physician Radiation Oncology 01/29/18 Vishal Jones MD [address] [facility] [place] [address] Home Care Provider Family Medicine 08/17/20 Maye Gonzalez MD [address] [address] Consulting General Surgery 08/17/20 Dayna Mann RN [address] [place], [place] [id number] Rail Car Driver Post Acute Care 08/17/20 Maye Gonzalez MD [address] [place] [place], [place] [address]881 Referring General Surgery 08/23/20 Shoe Sticks Repairer Relationship Specialty Start Date End Date Vishal Jones MD [address] [place] [address] PCP - General Family Medicine 09/25/17 Deborah Sabillon RN Specialty Supply Coordinator Oncology 07/30/17 Clement Werner MD, MD [address] [place] [address] Physician Radiation Oncology 01/29/18 Vishal Jones MD [address] [place] [address] Home Care Provider Family Medicine 08/17/20 Maye Gonzalez MD [address] [place], [place] [address] Consulting General Surgery 08/17/20 Dayna Mann RN [address] [facility], [place] [phone] Rail Car Driver Post Acute Care 08/17/20 Maye Gonzalez MD [address] [place] [address] Referring General Surgery 08/23/20 Shoe Sticks Repairer Relationship Specialty Start Date End Date Vishal Jones MD [address] [facility] [address] PCP - General Family Medicine 09/25/17 Deborah Sabillon RN Specialty Supply Coordinator Oncology 07/30/17 Clement Werner MD, MD [address] [place] [address] Physician Radiation Oncology 01/29/18 Vishal Jones MD [address] [place] [address] Home Care Provider Family Medicine 08/17/20 Maye Gonzalez MD [address] [place] [address] Consulting General Surgery 08/17/20 Dayna Mann RN [address] [place] [place] [address] Rail Car Driver Post Acute Care 08/17/20 Maye Gonzalez MD [address] [place], [place] [address] Referring General Surgery 08/23/20 Shoe Sticks Repairer Relationship Specialty Start Date End Date Vishal Jones MD [address] [facility] [place] [address] PCP - General Family Medicine 09/25/17 Deborah Sabillon RN Specialty Supply Coordinator Oncology 07/30/17 Clement Werner MD, MD [address] [place] [facility] [address] Physician Radiation Oncology 01/29/18 Vishal Jones MD [address] [facility] [place] [address] Home Care Provider Family Medicine 08/17/20 Maye Gonzalez MD [address] [place] [facility] [address] Consulting General Surgery 08/17/20 Dayna Mann, RN [address] [facility], [place] [phone] Rail Car Driver Post Acute Care 08/17/20 Maye Gonzalez MD [address] [place] [facility] [address] Referring General Surgery 08/23/20 Shoe Sticks Repairer Relationship Specialty Start Date End Date Vishal Jones MD [address] [facility] [place] [address] PCP - General Family Medicine 09/25/17 Deborah Sabillon RN Specialty Supply Coordinator Oncology 07/30/17 Clement Werner MD, [address] [place] [address] Physician Radiation Oncology 01/29/18 Vishal Jones MD [address] [facility] [place] [address] Home Care Provider Family Medicine 08/17/20 Maye Gonzalez MD [address] [place] [address] Consulting General Surgery 08/17/20 Dayna Mann RN [address] [place] [address] Rail Car Driver Post Acute Care 08/17/20 Maye Gonzalez MD [address] [place], [place] [address] Referring General Surgery 08/23/20 Shoe Sticks Repairer Relationship Specialty Start Date End Date Vishal Jones MD [address] [place] [address] PCP - General Family Medicine 09/25/17 Deborah Sabillon RN Specialty Supply Coordinator Oncology 07/30/17 Clement Werner MD, MD [address] [place] [address] Physician Radiation Oncology 01/29/18 Vishal Jones MD [address] [place] [address] Home Care Provider Family Medicine 08/17/20 Maye Gonzalez MD [address] [place] [address] Consulting General Surgery 08/17/20 Dayna Mann RN [address] [place] [address] Rail Car Driver Post Acute Care 08/17/20 Maye Gonzalez MD [address] [place] [address] Referring General Surgery 08/23/20 Shoe Sticks Repairer Relationship Specialty Start Date End Date Vishal Jones MD [address] [place] [address] PCP - General Family Medicine 09/25/17 Deborah Sabillon RN Specialty Supply Coordinator Oncology 07/30/17 Clement Werner MD, MD [address] [place] [address] Physician Radiation Oncology 01/29/18 Vishal Jones MD [address] [place] [address] Home Care Provider Family Medicine 08/17/20 Maye Gonzalez MD [address] [place] [address] Consulting General Surgery 08/17/20 Dayna Mann, RN [address] [place], [place] [phone] Rail Car Driver Post Acute Care 08/17/20 Maye Gonzalez MD [address] [address] Referring General Surgery 08/23/20 Shoe Sticks Repairer Relationship Specialty Start Date End Date Vishal Jones MD [address] [place] [address] PCP - General Family Medicine 09/25/17 Deborah Sabillon RN Specialty Supply Coordinator Oncology 07/30/17 Clement Werner MD, MD [address] [place] [address] Physician Radiation Oncology 01/29/18 Vishal Jones MD [address] [facility] [place] [address] Home Care Provider Family Medicine 08/17/20 Maye Gonzalez MD [address] [place], [place] [address]261 Consulting General Surgery 08/17/20 Dayna Mann RN [address] [place] [address] Rail Car Driver Post Acute Care 08/17/20 Maye Gonzalez MD [address] [place] [address] Referring General Surgery 08/23/20 Shoe Sticks Repairer Relationship Specialty Start Date End Date Vishal Jones MD [address] [facility] [place] [address] PCP - General Family Medicine 09/25/17 Deborah Sabillon RN Specialty Supply Coordinator Oncology 07/30/17 Clement Werner MD, [address] [address] Physician Radiation Oncology 01/29/18 Vishal Jones MD [address] [facility] [place] [address] Home Care Provider Family Medicine 08/17/20 Maye Gonzalez MD [address] [place] [address] Consulting General Surgery 08/17/20 Dayna Mann RN [address] [place] [address] Rail Car Driver Post Acute Care 08/17/20 Maye Gonzalez MD [address] [place], [place] [address]681 Referring General Surgery 08/23/20 Shoe Sticks Repairer Relationship Specialty Start Date End Date Vishal Jones MD [address] [facility] [place], [place] [address] PCP - General Family Medicine 09/25/17 Deborah Sabillon RN Specialty Supply Coordinator Oncology 07/30/17 Clement Werner MD, MD [address] [place] [address] Physician Radiation Oncology 01/29/18 Vishal Jones MD [address] [place] [place] [address] Home Care Provider Family Medicine 08/17/20 Maye Gonzalez MD [address] [place], [place] [address] Consulting General Surgery 08/17/20 Dayna Mann RN [address] [place], [place] [phone] Rail Car Driver Post Acute Care 08/17/20 Maye Gonzalez MD [address] [facility] [address] Referring General Surgery 08/23/20 Shoe Sticks Repairer Relationship Specialty Start Date End Date Vishal Jones MD [address] [place] [address] PCP - General Family Medicine 09/25/17 Deborah Sabillon RN Specialty Supply Coordinator Oncology 07/30/17 Clement Werner MD, MD [address] [place] [address] Physician Radiation Oncology 01/29/18 Vishal Jones MD [address] [place] [address] Home Care Provider Family Medicine 08/17/20 Maye Gonzalez MD [address] [place] [address] Consulting General Surgery 08/17/20 Dayna Mann, RN [address] [facility], [place] [address]31 Rail Car Driver Post Acute Care 08/17/20 Maye Gonzalez MD [address] [place] [address] Referring General Surgery 08/23/20 Shoe Sticks Repairer Relationship Specialty Start Date End Date Vishal Jones MD [address] [facility] [place] [address] PCP - General Family Medicine 09/25/17 Deborah Sabillon RN Specialty Supply Coordinator Oncology 07/30/17 Clement Werner MD, [address] [place] [address] Physician Radiation Oncology 01/29/18 Vishal Jones MD [address] [place] [place] [address] Home Care Provider Family Medicine 08/17/20 Maye Gonzalez MD [address] [place], [place] 15[address] Consulting General Surgery 08/17/20 Dayna Mann RN [address] [place] [address] Rail Car Driver Post Acute Care 08/17/20 Maye Gonzalez MD [address] [place] [address] Referring General Surgery 08/23/20 Shoe Sticks Repairer Relationship Specialty Start Date End Date Vishal Jones MD [address] [place] [address] PCP - General Family Medicine 09/25/17 Deborah Sabillon RN Specialty Supply Coordinator Oncology 07/30/17 Clement Werner MD, [address] [place], [place] [address] Physician Radiation Oncology 01/29/18 Vishal Jones MD [address] [place] [address] Home Care Provider Family Medicine 08/17/20 Maye Gonzalez MD [address] [place] [address] Consulting General Surgery 08/17/20 Dayna Mann RN [address] [place] [address] Rail Car Driver Post Acute Care 08/17/20 Maye Gonzalez MD [address] [place], [place] 573341 Referring General Surgery 08/23/20 Shoe Sticks Repairer Relationship Specialty Start Date End Date Vishal Jones MD [address] [place], [place] 8[address] PCP - General Family Medicine 09/25/17 Deborah Sabillon RN Specialty Supply Coordinator Oncology 07/30/17 Clement Werner MD, MD [address] [place] [address] Physician Radiation Oncology 01/29/18 Vishal Jones MD [address] [facility] [address] Home Care Provider Family Medicine 08/17/20 Maye Gonzalez MD [address] [place] [address] Consulting General Surgery 08/17/20 Dayna Mann RN [address] [place], [place] [phone] Rail Car Driver Post Acute Care 08/17/20 Maye Gonzalez MD [address] [place] [address] Referring General Surgery 08/23/20 Shoe Sticks Repairer Relationship Specialty Start Date End Date Vishal Jones MD [address] [place] [address] PCP - General Family Medicine 09/25/17 Deborah Sabillon RN Specialty Supply Coordinator Oncology 07/30/17 Clement Werner MD, MD [address] [place] [address] Physician Radiation Oncology 01/29/18 Vishal Jones MD [address] [facility] [address] Home Care Provider Family Medicine 08/17/20 Maye Gonzalez MD [address] [place], [place] 964071 Consulting General Surgery 08/17/20 Dayna Mann RN [address] [place] [address] Rail Car Driver Post Acute Care 08/17/20 Maye Gonzalez MD [address] [place] [address] Referring General Surgery 08/23/20 Shoe Sticks Repairer Relationship Specialty Start Date End Date Vishal Jones MD [address] [facility] [place] [address] PCP - General Family Medicine 09/25/17 Deborah Sabillon RN Specialty Supply Coordinator Oncology 07/30/17 Clement Werner MD, [address] [place] [address] Physician Radiation Oncology 01/29/18 Vishal Jones MD [address] [place] [place] [address] Home Care Provider Family Medicine 08/17/20 Maye Gonzalez MD [address] [place] [address] Consulting General Surgery 08/17/20 Dayna Mann RN [address] [place] [address] Rail Car Driver Post Acute Care 08/17/20 Maye Gonzalez MD [address] [place], [place] 597981 Referring General Surgery 08/23/20 Shoe Sticks Repairer Relationship Specialty Start Date End Date Vishal Jones MD [address] [facility] [address] PCP - General Family Medicine 09/25/17 Deborah Sabillon RN Specialty Supply Coordinator Oncology 07/30/17 Clement Werner MD, [address] [place] [address] Physician Radiation Oncology 01/29/18 Vishal Jones MD [address] [place] [address] Home Care Provider Family Medicine 08/17/20 Maye Gonzalez MD [address] [place] [address] Consulting General Surgery 08/17/20 Dayna Mann, RN [address] [facility], [place] 7825631 Rail Car Driver Post Acute Care 08/17/20 Maye Gonzalez MD [address] [address] Referring General Surgery 08/23/20 Shoe Sticks Repairer Relationship Specialty Start Date End Date Vishal Jones MD [address] [facility] [address] PCP - General Family Medicine 09/25/17 Deborah Sabillon RN Specialty Supply Coordinator Oncology 07/30/17 Clement Werner MD, MD [address] [place] [address] Physician Radiation Oncology 01/29/18 Vishal Jones MD [address] [place] [address] Home Care Provider Family Medicine 08/17/20 Maye Gonzalez MD [address] [place], [place] 272041 Consulting General Surgery 08/17/20 Dayna Mann RN [address] [place] [address] Rail Car Driver Post Acute Care 08/17/20 Maye Gonzalez MD [address] [place], [place] 500101 Referring General Surgery 08/23/20 Shoe Sticks Repairer Relationship Specialty Start Date End Date Vishal Jones MD [address] [place] [address] PCP - General Family Medicine 09/25/17 Deborah Sabillon RN Specialty Supply Coordinator Oncology 07/30/17 Clement Werner MD, MD [address] [place] [address] Physician Radiation Oncology 01/29/18 Vishal Jones MD [address] [place] [address] Home Care Provider Family Medicine 08/17/20 Maye Gonzalez MD [address] [place] [address] Consulting General Surgery 08/17/20 Dayna Mann RN [address] [place] [address] Rail Car Driver Post Acute Care 08/17/20 Maye Gonzalez MD [address] [place], [place] 492511 Referring General Surgery 08/23/20 Shoe Sticks Repairer Relationship Specialty Start Date End Date Vishal Jones MD [address] [facility] [place], [place] [address] PCP - General Family Medicine 09/25/17 Deborah Sabillon RN Specialty Supply Coordinator Oncology 07/30/17 Clement Werner MD, MD [address] [facility] [place] [address] Physician Radiation Oncology 01/29/18 Vishal Jones MD [address] [place] [place] [address] Home Care Provider Family Medicine 08/17/20 Maye Gonzalez MD [address] [place] [facility] [address] Consulting General Surgery 08/17/20 Dayna Mann, RN [address] [place], [place] [phone] Rail Car Driver Post Acute Care 08/17/20 Maye Gonzalez MD [address] [facility], [place] 07[address]51 Referring General Surgery 08/23/20 Shoe Sticks Repairer Relationship Specialty Start Date End Date Vishal Jones MD [address] [facility] [place] [address] PCP - General Family Medicine 09/25/17 Deborah Sabillon RN Specialty Supply Coordinator Oncology 07/30/17 Clement Werner MD, [address] [facility] [place] [address] Physician Radiation Oncology 01/29/18 Vishal Jones MD [address] [facility] [place], [place] [address] Home Care Provider Family Medicine 08/17/20 Maye Gonzalez MD [address] [place] [place], [place] [address] Consulting General Surgery 08/17/20 Dayna Mann RN [address] [place] [address] Rail Car Driver Post Acute Care 08/17/20 Maye Gonzalez MD [address] [address] Referring General Surgery 08/23/20 Roxana Davis LISW [address] [place] [address] Health Science Specialist Hematology/Oncology 07/23/23 Shoe Sticks Repairer Relationship Specialty Start Date End Date Vishal Jones MD [address] [place] [place] [address] PCP - General Family Medicine 09/25/17 Deborah Sabillon RN Specialty Supply Coordinator Oncology 07/30/17 Clement Werner MD, [address] [address] Physician Radiation Oncology 01/29/18 Vishal Jones MD [address] [facility] [place], [place] [address]29[address] Home Care Provider Family Medicine 08/17/20 Maye Gonzalez MD [address] [place], [place] 356[address] Consulting General Surgery 08/17/20 Dayna Mann RN [address] [place] [address] Rail Car Driver Post Acute Care 08/17/20 Maye Gonzalez MD [address] [place] [address] Referring General Surgery 08/23/20 Roxana Davis LISW [address] [place] [address] Health Science Specialist Hematology/Oncology 07/23/23 Shoe Sticks Repairer Relationship Specialty Start Date End Date Vishal Jones MD [address] [place] [place] [address] PCP - General Family Medicine 09/25/17 Deborah Sabillon RN Specialty Supply Coordinator Oncology 07/30/17 Clement Werner MD, MD [address] [place] [address] Physician Radiation Oncology 01/29/18 Vishal Jones MD [address] [place] [address] Home Care Provider Family Medicine 08/17/20 Maye Gonzalez MD [address] [place] [address] Consulting General Surgery 08/17/20 Dayna Mann RN [address] [place] [address] Rail Car Driver Post Acute Care 08/17/20 Maye Gonzalez MD [address] [place] [address] Referring General Surgery 08/23/20 Roxana Davis LISW [address] [place] [address] Health Science Specialist Hematology/Oncology 07/23/23 FOR RECORDS PERTAINING TO PATIENTS WHO ARE OR HAVE BEEN ENROLLED IN A CHEMICAL DEPENDENCY/SUBSTANCEABUSE PROGRAM, SOME INFORMATION MAY BE OMITTED. This clinical summary was aggregated from multiple sources. Caution should be exercised in using it in the provision of clinical care. This summary normalizes information from multiple sources, and as a consequence, information in this document may materially change the coding, format and clinical context of patient data. In addition, data may be omitted in some cases. CLINICAL DECISIONS SHOULD BE BASED ON THE PRIMARY CLINICAL RECORDS. [facility] Office [facility]. provides no warranty or guarantee of the accuracy or completeness of information in this document.
[2023-10-07 21:44] VITALS: PULSE 80; RESP 14
== END 2023-10-07 21:50 | disposition home or self-care (01) ==
PROVIDERS: Emergency Provider Emergency Medicine; PCP Family Medicine; Visit Provider Emergency Medicine
DX: S41.111A Laceration without foreign body of right upper arm, initial encounter (principal); F10.129 Alcohol abuse with intoxication, unspecified; S41.112A Laceration without foreign body of left upper arm, initial encounter; S00.83XA Contusion of other part of head, initial encounter; S09.90XA Unspecified injury of head, initial encounter; I25.2 Old myocardial infarction; I25.10 Atherosclerotic heart disease of native coronary artery without angina pectoris; W19.XXXA Unspecified fall, initial encounter
CPT/HCPCS: 70450; 99282

== ENCOUNTER 2023-10-31 15:17 | Inpatient (IN) | payer MEDICARE, BC, SELFPAY ==
[2023-10-31 15:17] VITALS: BP 108/69; PULSE 88; RESP 16; TEMP 36.5; O2SAT 97; BMI 25.3
--- NOTE | 2023-10-31 15:57 | EDS_ITS ---
HPI History of Present Illness Chief Complaint: Neuro S/Sx [facility] Medical History Adenocarcinoma Alcohol use Ambulates with cane Anxiety Arthritis Atherosclerosis of coronary artery of [place] heart without angina pectoris Back pain BPH (benign prostatic hyperplasia) Bright's disease Cancer Cardiology follow-up encounter Chewing tobacco nicotine dependence Chronic pain Cognitive impairment Colon cancer Depression Easy bruising Essential (primary) hypertension Fall Frequent falls Gait instability High cholesterol History of echocardiogram History of heart attack History of pain when walking History of prostate cancer History of radiation therapy History of stress test HLD (hyperlipidemia) Old inferior wall myocardial infarction Smoker Vitamin D deficiency Wears dentures Wears glasses Wears hearing aid Home Medications finasteride 5 mg tablet (Proscar) 5 mg PO DAILY prostate 01/27/18 [History Last Taken 10/31/23] aspirin 81 mg tablet,delayed release (Adult Low Dose Aspirin) 81 mg PO DAILY heart health 07/30/18 [History Last Taken 10/31/23] tamsulosin 0.4 mg capsule 0.4 mg PO QHS prostate 10/21/21 [History Last Taken 10/30/23] atenolol 25 mg tablet 12.5 mg PO QDAY blood pressure 07/15/22 [History Last Taken 10/31/23] isosorbide mononitrate 60 mg tablet,extended release 24 hr 60 mg PO DAILY heart #90 tabs 01/16/23 [Rx Last Taken 10/31/23] buprenorphine 10 mcg/hour weekly transdermal patch 1 patch transdermal FR pain 04/17/23 [History Last Taken 10/24/23] oxybutynin chloride 10 mg tablet,extended release 24 hr 10 mg PO DAILY overactive bladder 04/17/23 [History Last Taken 10/31/23] psyllium husk (aspartame) 3 gram oral powder packet (Daily Fiber (psyllium- aspartame)) 1 packet PO DAILY PRN loose stools #0 ea 04/20/23 [Rx Last Taken 04/18/23] acetaminophen 500 mg tablet 1,000 mg (2 x 500 mg) PO Q8 #0 tabs 05/02/23 [Rx Last Taken Unknown] nitroglycerin 0.4 mg sublingual tablet 0.4 mg sublingual Q5M PRN Chest Pain #25 tabs 08/28/23 [Rx Last Taken Unknown] atorvastatin 10 mg tablet 10 mg PO QHS 10/31/23 [History Last Taken 10/30/23] bupropion HCl 150 mg tablet,12 hr sustained-release 150 mg PO Q12H 10/31/23 [History Last Taken 10/31/23] hydroxyzine HCl 25 mg tablet 12.5 mg PO Q8H 10/31/23 [History Last Taken Unknown] mirtazapine 45 mg tablet 45 mg PO QHS 10/31/23 [History Last Taken 10/30/23] nitrofurantoin monohydrate/macrocrystals 100 mg capsule 100 mg PO Q12H 10/31/23 [History Last Taken 10/31/23] Allergy/AdvReac Type Severity Reaction Status Date / Time No Known Allergies Allergy Verified 10/07/23 19:32 Family History Father Cancer skin cancer Mother Myocardial infarction Diabetes Other Fall Surgical History H/O percutaneous transluminal coronary angioplasty (11/13/93) History of angioplasty History of colostomy History of cystoscopy History of inguinal hernia repair, bilateral History of left heart catheterization (02/24/02) History of rotator cuff surgery Hx of appendectomy Hx of colectomy Status post trigger finger release Social History household members: none Smoking Status: Never smoker alcohol intake: current alcohol intake frequency: a few times a month Alcohol type: hard liquor substance use type: does not use caffeine: Yes Type: coffee Number of servings: 1 EXAM Physical Exam Const Vital Signs: 10/31/23 15:17 10/31/23 18:36 Temperature 97.7 F L Temperature Source Temporal Pulse Rate 88 80 Respiratory Rate 16 14 Blood Pressure 108/69 112/51 L Blood Pressure Mean 82 71 Pulse Ox 97 94 Oxygen Delivery Method Room Air Room Air MDM MDM MDM Narrative Medical decision making narrative: HISTORY OF PRESENT ILLNESS: 83-year-old male presents for abnormal imaging finding. He states he received an MRI yesterday which showed concern for stroke. He states her last several months he had issues with dizziness. Last known well was greater than 1 month ago. Notes some balance difficulties over that time. States he had outpatient test yesterday today had a stroke so he presented to the emergency department. REVIEW OF SYSTEMS: Pertinent positives: Dizziness, balance difficulty Pertinent negatives: Vision loss, slurred speech, loss of movement or sensation in his extremities PHYSICAL EXAM: Nursing triage notes reviewed, Vital signs reviewed Constitutional: please see [facility] HENT: MMM Eyes: Pupils equal round and reactive to light, Extraocular muscles intact Neck: No stridor, no JVD, full neck ROM Lungs: Clear to auscultation, No wheezing or rales. No increased work of breathing, no conversational dyspnea, no accessory muscle use, no nasal flaring. No respiratory distress noted Heart: Regular rate and rhythm, No murmurs, No rubs and No gallops, 2+ distal pulses (radial, femoral, posterior tibial) in all extremities Abdomen: Soft, there is no tenderness, rigidity, rebound or guarding, no obvious peritoneal signs, no palpable pulsatile abdominal masses, no auscultated abdominal bruit : No CVAT Extremities: No edema Neuro: N alert and oriented x3, neuro exam at baseline, cranial nerves II through XII are intact. No pain with extraocular muscle movement. There is negative test of skew. 5 of 5 strength in upper and lower extremities in flexion extension. Intact sensation to light touch in upper and lower extremity dermatomes. No truncal or extremity ataxia. No dysdiadochokinesia. Normal gait for age (walks with cane, no ataxia noted). 2+ reflexes in upper and lower extremities. No meningeal signs. Negative Babinski. NIH of 0. Skin: No rash or lesions noted MEDICAL DECISION MAKING: Chief Complaint: Abnormal imaging finding External records reviewed: Imaging studies reviewed: CT scan of the brain without contrast from October 07, 2023 shows no evidence of intracranial abnormality. Per clinisync MRI of the brain without contrast from shows small foci of acute infarct within the left right occipital white matter Factors affecting care: Hypertension, depression, BPH, anxiety, CAD, hyperlipidemia Social determinants of health: Elderly, history of alcohol use History obtained from others: none Consults: Internal medicine (Dr. FALL), stroke neurology Dr. Wakefield [facility] Narrative: Patient was hemodynamically stable, afebrile, nontoxic-appearing. Neuroexam without focal deficits, no ataxic gait with The etiology patient complaints is consistent with acute CVA. I consulted the stroke neurologist Dr. Wakefield who recommended admit the patient for risk factor modification, bubble study. Discussed with hospitalist. She recommended again starting Plavix. She recommended obtaining a CT of the patient's head and neck with contrast. ALL IMAGES (IF OBTAINED) HAVE BEEN PERSONALLY REVIEWED AND INTERPRETED BY MYSELF. CBC with no leukocytosis, anemia, no thrombocytopenia BMP without evidence of significant electrolyte abnormalities, no anion gap, no acute kidney injury. The patient and/or family, caregivers express understanding. The patient and/or family, caregivers agrees with the plan. Shared decision making: I will have a discussion with the patient and or visitors regarding risk/benefits of further testing or admission. They will be made aware of of t he risk/benefits inherent in this decision they will be given the opportunity to voice understanding. Total critical care time today provided was at least 0 [ minutes. This excludes separately billable procedures. Critical care time (if documented) is secondary to the patient having high probability of clinically significant/life threatening deterioration in the patient's condition which required my urgent intervention. Impression: 1. Acute CVA 2. Anemia 3. History of alcohol abuse Dispo: Admit to PCU This note was generated with [employer] dictation software. It may contain incorrect words, spelling, and punctuation that were not noted in review of the chart prior to signing. Lab Data Labs: Laboratory Results - last 24 hr 10/31/23 16:45 WBC 7.8 RBC 3.97 L Hgb 11.7 L Hct 36.1 L MCV 90.9 MCH 29.5 MCHC 32.4 RDW Std Deviation 49.6 H RDW Coeff of Kathryn 14.8 H Plt Count 241 MPV 8.8 Immature Gran % (Auto) 1.700 H Neut % (Auto) 64.8 Lymph % (Auto) 20.4 [place] % (Auto) 9.6 Eos % (Auto) 2.7 Baso % (Auto) 0.8 Absolute Neuts (auto) 5.1 Absolute Lymphs (auto) 1.59 Nucleated RBC % 0 Sodium 141 Potassium 4.3 Chloride 112 H Carbon Dioxide 24.0 Anion Gap 5 BUN 21 H Creatinine 0.84 Estim Creat Clear Calc 63.33 Est GFR (MDRD) Af Amer 113 Est GFR (MDRD) Non-Af 93 BUN/Creatinine Ratio 25.1 H Glucose 92 Calcium 9.6 Radiography Diagnostic Testing: Clinical Impression(s) from Imaging Studies Head/Neck CTA 10/31/23 16:33 IMPRESSION: No acute abnormality. No large vessel occlusions. Calcified plaque of both carotid arteries and carotid bulbs. Moderate grade stenosis of both ICAs. Electronically Signed: Da Herrmann MD at 18:19 EST , Discharge Plan Triage Chief Complaint: Neuro S/Sx ED Provider: Adrian Morales Dx/Rx/DC Orders Prescriptions: No Action finasteride [Proscar] 5 mg tablet 5 mg PO DAILY aspirin [Adult Low Dose Aspirin] 81 mg tablet,delayed release (DR/EC) 81 mg PO DAILY tamsulosin 0.4 mg capsule 0.4 mg PO QHS atenolol 25 mg tablet 12.5 mg PO QDAY oxybutynin chloride 10 mg tablet extended release 24hr 10 mg PO DAILY buprenorphine 10 mcg/hour patch weekly 1 patch transdermal FR Patient Comments: took patch off today and did not put new one on Daily Fiber (psyllium-aspart) 3 gram Powder In Packet 1 packet PO DAILY PRN (Reason: loose stools) Qty: 0 0RF acetaminophen 500 mg Tablet 1,000 mg PO Q8 Qty: 0 0RF atorvastatin 10 mg tablet 10 mg PO QHS Patient Comments: take 1 tablet by mouth at bedtime bupropion HCl 150 mg tablet sustained-release 12 hr 150 mg PO Q12H Patient Comments: take 1 tablet by mouth twice a day hydroxyzine HCl 25 mg tablet 12.5 mg PO Q8H mirtazapine 45 mg tablet 45 mg PO QHS Patient Comments: take 1 tablet by mouth once daily at bedtime nitrofurantoin monohyd/m-cryst 100 mg capsule 100 mg PO Q12H Patient Comments: take 1 capsule by mouth twice a day for 5 days Rx Instructions: X5D FILLED 10/27 isosorbide mononitrate 60 mg tablet extended release 24 hr 60 mg PO DAILY Qty: 90 3RF nitroglycerin 0.4 mg tablet, sublingual 0.4 mg SL Q5M PRN (Reason: Chest Pain) Qty: 25 3RF Primary Care Provider: Vishal Antonio Referrals: Vishal Antonio MD [Primary Care Provider] -
--- NOTE | 2023-10-31 16:00 | ED.RN ---
PT C/O RT SIDED PAIN.
--- NOTE | 2023-10-31 16:30 | EKG12_ITS ---
Test Reason : Blood Pressure : / mmHG Vent. Rate : 086 BPM Atrial Rate : 086 BPM P-R Int : 214 ms QRS Dur : 086 ms QT Int : 370 ms P-R-T Axes : 068 -59 022 degrees QTc Int : 442 ms Sinus rhythm with 1st degree A-V block Left axis deviation Abnormal ECG Baseline artifact Confirmed by Merlin Cedeno ([id number]), news video editor MEGHAN CUNHA ([id number]) on 11/03/2023 9:45:47 AM Referred By: Confirmed By:Merlin Cedeno
--- NOTE | 2023-10-31 16:33 | CT_ITS ---
STUDY: CTA HEAD AND NECK WITH CONTRAST REASON FOR EXAM: Male, 83 years old. dizziness RADIATION DOSAGE (If Supplied By Facility): CTDIvol = ( 31.13 ) mGy, DLP = ( 1592.27 ) mGycm TECHNIQUE: CT angiography was performed with a multi-detector CT scanner. Data acquisition was obtained from the skull base through the vertex following intravenous administration of IV 100mL [id number]-[id number]. MIP images were reconstructed from the axial data set. Post-processing of the angiographic images was performed, with multiplanar reformation and 3D reconstruction. Individualized dose optimization techniques were used for this CT. COMPARISON: CT of the head 10/07/2023 FINDINGS: Normal bilateral petrous carotid arteries. There is calcified plaque formation of the right cavernous carotid artery, without a cross-sectional luminal stenosis. There is calcified plaque formation of the left cavernous carotid artery, without a cross-sectional luminal stenosis. Normal right A1 segments of the anterior cerebral artery. Normal left A1 segments of the anterior cerebral artery. Normal intact anterior communicating artery (ACOM). Normal bilateral A2 segments of the anterior cerebral arteries. Normal right M1 and M2 segments of the middle cerebral arteries, with a normal M1 bifurcation. Normal left M1 and M2 segments of the middle cerebral arteries, with a normal M1 bifurcation. Normal right posterior communicating artery (PCOM). Normal left posterior communicating artery (PCOM). Normal bilateral vertebral arteries. Normal basilar artery with a normal basilar bifurcation. The visualized bilateral superior cerebellar (SCA) arteries are normal. Normal bilateral P1, P2 and visualized P3 segments of the posterior cerebral arteries. There is no demonstrated aneurysm of the [place]. There is no demonstrated abnormality of the visualized brain. AORTIC ARCH: There is atherosclerotic calcific plaque formation of the aortic arch and great vessels arising from the aortic arch, without a hemodynamically significant stenosis. There is a normal origin of the brachiocephalic, left common carotid, and left subclavian arteries. RIGHT CAROTID ARTERIES: There is atherosclerotic plaque formation of the common carotid artery, but without a hemodynamically significant stenosis. There is moderate atherosclerotic plaque formation with moderate narrowing of the right carotid bulb. There is moderate atherosclerotic plaque formation of the origin of the right internal carotid artery with an estimated stenosis of 50-69% stenosis. Normal visualized cervical portion of the right internal carotid artery. Normal origin of the right external carotid artery (ECA). LEFT CAROTID ARTERIES: There is atherosclerotic plaque formation of the common carotid artery, but without a hemodynamically significant stenosis. There is moderate atherosclerotic plaque formation with moderate narrowing of the carotid bulb. There is moderate atherosclerotic plaque formation of the origin of the left internal carotid artery with an estimated stenosis of 50-69% stenosis. Normal visualized cervical portion of the left internal carotid artery. Normal origin of the left external carotid artery (ECA). VERTEBRAL ARTERIES: Normal bilateral vertebral arteries. CT/CTA Head AND Neck W/ Contrast IMPRESSION: No acute abnormality. No large vessel occlusions. Calcified plaque of both carotid arteries and carotid bulbs. Moderate grade stenosis of both ICAs. Electronically Signed: Da Herrmann MD at 18:19 [facility] ,
[2023-10-31 16:48] VITALS: BMI 25.3
[2023-10-31 17:10] LABS: Absolute Lymphocyte Count 1.59 X10^3/uL (0.83-4.51); Absolute Neutrophil Count 5.1 X10^3/uL (2.0-7.7); Basophil# 0.06 X10^3/uL; Basophil% 0.8 % (0-1); Eosinophil# 0.21 X10^3/uL; Eosinophils% 2.7 % (0-5); Hematocrit 36.1 % (40-54); Hemoglobin 11.7 g/dL (13.0-16.5); Lymphocyte # 1.59 X10^3/ul (0.83-4.51); Lymphocyte % 20.4 % (19-41); Mean Corp Hgb Conc 32.4 g/dL (32-36); Mean Corpuscular Hgb 29.5 pg (27.0-32.0); Mean Corpuscular Volume 90.9 fL (80-94); Mean Platelet Vol. 8.8 fl (6.2-12.0); Monocyte# 0.75 X10^3/uL; Monocyte% 9.6 % (0-10); NRBC Flagged by Analyzer 0 % (0-5); Neutrophil # 5.06 X10^3/uL (2.7-7.7); Neutrophil % 64.8 % (47-70); Platelet Count 241 K/mm3 (150-450); RBC Distribution Width CV 14.8 % (11.6-14.6); RBC Distribution Width SD 49.6 fl (35.1-43.9); Red Blood Count 3.97 M/mm3 (4.6-6.2); White Blood Count 7.8 K/mm3 (4.4-11.0)
[2023-10-31 17:22] LABS: Anion Gap 5 (5-15); BUN 21 mg/dL (7-18); BUN/Creat Ratio 25.1 RATIO (10-20); Calcium,Total 9.6 mg/dL (8.5-10.1); Chloride 112 mmol/L (98-107); Creatinine, Serum 0.84 mg/dL (0.70-1.30); EST Glomerular Filtration Rate 93 mL/min (>60); Est Glom Filt Rate - Afr Amer 113 mL/min (>60); Estimated Creatinine Clearance 63.33 ml/min; Glucose 92 mg/dL (74-106); Potassium 4.3 mmol/L (3.5-5.1); Sodium Level 141 mmol/L (136-145)
[2023-10-31 18:36] VITALS: BP 112/51; PULSE 80; RESP 14; O2SAT 94
--- NOTE | 2023-10-31 19:24 | PCM.HP.STD ---
[facility] - General General Date of Admission: 10/31/23 Date of Service: 10/31/23 Chief Complaint: Dizziness and Recent CVA. HPI Narrative HOWIE MANZO, is a 83 M with a past medical history of essential hypertension, hyperlipidemia, history of tobacco abuse, CAD; s/p inferior FL with PTCA (1993), alcohol abuse; allegedly sober for the past ~2 months, history of colon cancer; s/p colectomy, history of prostate cancer; s/p radiation, BPH, anemia, overactive bladder, depression with anxiety, OA; with back pain, chronic dizziness and recently diagnosed Acute CVA on outpatient MRI on October 30, 2023 that allegedly revealed small foci of acute infarct in Left and Right occipital white matter who presents to [facility] ER complaining of dizziness and recent CVA. Mr. Manzo reports his symptoms began approximately two months prior to admission with intermittent dizziness and balance instability. He denies associated fever, chills, nausea, vomiting, headache, visual changes, slurred speech or any loss of movement or strength in his extremities. In the ER here he underwent a CTA of the head and neck that was negative for acute pathologic changes. Nevertheless, the [facility] teleneurologist / Dr. Wakefield recommended admission for risk factor modification with suggestion to check lipid profile, HgbA1c and echocardiogram with bubble study. Also she recommended to continue BASA but not to start Plavix at this time. He was then admitted to the PCU for ongoing care for a stay that is expected to be greater than 48 hours. [facility] Medical History Adenocarcinoma Alcohol use Ambulates with cane Anxiety Arthritis Atherosclerosis of coronary artery of [place] heart without angina pectoris Back pain BPH (benign prostatic hyperplasia) Bright's disease Cancer Cardiology follow-up encounter Chest pain Chewing tobacco nicotine dependence Chronic pain Chronic pain Cognitive impairment Colon cancer Depression Easy bruising Essential (primary) hypertension Fall Frequent falls Gait instability Hearing loss, left Hearing loss, right High cholesterol History of echocardiogram History of heart attack History of pain when walking History of prostate cancer History of radiation therapy History of stress test HLD (hyperlipidemia) Kidney disease Kidney stones Myocardial infarct Old inferior wall myocardial infarction Smoker Vision loss of left eye Vision loss of right eye Vitamin D deficiency Wears dentures Wears glasses Wears hearing aid Medical History no medical history no medical history Home Medications finasteride 5 mg tablet (Proscar) 5 mg PO DAILY prostate 01/27/18 [History Last Taken 10/31/23] aspirin 81 mg tablet,delayed release (Adult Low Dose Aspirin) 81 mg PO DAILY heart health 07/30/18 [History Last Taken 10/31/23] tamsulosin 0.4 mg capsule 0.4 mg PO QHS prostate 10/21/21 [History Last Taken 10/30/23] atenolol 25 mg tablet 12.5 mg PO QDAY blood pressure 07/15/22 [History Last Taken 10/31/23] isosorbide mononitrate 60 mg tablet,extended release 24 hr 60 mg PO DAILY heart #90 tabs 01/16/23 [Rx Last Taken 10/31/23] buprenorphine 10 mcg/hour weekly transdermal patch 1 patch transdermal FR pain 04/17/23 [History Last Taken 10/24/23] oxybutynin chloride 10 mg tablet,extended release 24 hr 10 mg PO DAILY overactive bladder 04/17/23 [History Last Taken 10/31/23] psyllium husk (aspartame) 3 gram oral powder packet (Daily Fiber (psyllium-aspartame)) 1 packet PO DAILY PRN loose stools #0 ea 04/20/23 [Rx Last Taken 04/18/23] acetaminophen 500 mg tablet 1,000 mg (2 x 500 mg) PO Q8 #0 tabs 05/02/23 [Rx Last Taken Unknown] nitroglycerin 0.4 mg sublingual tablet 0.4 mg sublingual Q5M PRN Chest Pain #25 tabs 05/12/23 [Rx Last Taken Unknown] atorvastatin 10 mg tablet 10 mg PO QHS 10/31/23 [History Last Taken 10/30/23] bupropion HCl 150 mg tablet,12 hr sustained-release 150 mg PO Q12H 10/31/23 [History Last Taken 10/31/23] hydroxyzine HCl 25 mg tablet 12.5 mg PO Q8H 10/31/23 [History Last Taken Unknown] mirtazapine 45 mg tablet 45 mg PO QHS 10/31/23 [History Last Taken 10/30/23] nitrofurantoin monohydrate/macrocrystals 100 mg capsule 100 mg PO Q12H 10/31/23 [History Last Taken 10/31/23] Allergy/AdvReac Type Severity Reaction Status Date / Time No Known Allergies Allergy Verified 10/07/23 19:32 Family History Father Cancer skin cancer Mother Myocardial infarction Diabetes Other Fall Surgical History H/O percutaneous transluminal coronary angioplasty (11/13/93) History of angioplasty History of colostomy History of cystoscopy History of inguinal hernia repair, bilateral History of left heart catheterization (02/24/02) History of rotator cuff surgery Hx of appendectomy Hx of colectomy Status post trigger finger release Social History household members: none Smoking Status: Never smoker alcohol intake: current alcohol intake frequency: a few times a month Alcohol type: hard liquor substance use type: does not use caffeine: Yes Type: coffee Number of servings: 1 ROS ROS Narrative Review of systems: General: Patient denies fever or chills HENT: Denies headache, denies stuffy nose, denies sore throat EYES: Denies changes in vision or discharge from eyes Resp: Denies cough, denies shortness of breath Cardiac: Denies chest pain or palpitations GI: Denies abdominal pain, denies changes in bowel, denies nausea or vomiting : Denies changes in urination Extremity: Denies swelling Musculoskeletal: Feels somewhat generally weak Neuro: Patient admits to intermittent dizziness that is made worse with standing up abruptly but sometimes is random Heme: Denies any bleeding or bruising Skin: Denies rashes Psychiatric: No complaints voiced related to uncontrolled depression or anxiety Endocrine: No polyuria, polydipsia or polyphagia The rest of the 14 point ROS was negative except for positives in HPI. Vital Signs Vital Signs Vital Signs: 10/31/23 15:17 10/31/23 18:36 Temperature 97.7 F L Temperature Source Temporal Pulse Rate 88 80 Respiratory Rate 16 14 Blood Pressure 108/69 112/51 L Blood Pressure Mean 82 71 Pulse Ox 97 94 Oxygen Delivery Method Room Air Room Air Weight Weight: 166 lb 14.415 oz Body Mass Index (BMI) 25.3 Physical Exam Const alert, oriented x3, no apparent distress, average body habitus and healthy appearing General Appearance: cooperative HEENT normocephalic, head/scalp atraumatic, hearing grossly normal bilaterally and moist oral mucous membranes Eyes PERRL, EOMs intact bilaterally and conjunctivae normal Neck no lymphadenopathy and supple Resp normal respiratory effort, no retractions, no use of accessory muscles and clear to auscultation bilaterally Cardio regular rate and regular rhythm GI normal to inspection, nondistended, normoactive bowel sounds, soft to palpation, non-tender and non-distended Extremity normal to inspection and full ROM Skin Skin Narrative: Patient has no evidence of rash at this time. Neuro oriented x3, CN's II-XII intact bilaterally, moves all extremities and no focal motor deficits Sensorium / Orientation: awake, alert, oriented to person, oriented to place and oriented to time Speech: speech normal Motor Exam: strength 5/5 throughout Psych affect normal Results Medical Records Data Attestation: I reviewed the patient's medical records Lab / Micro Data Attestation: I reviewed the patient's lab results. 10/31/23 16:45 10/31/23 16:45 Labs: Laboratory Results - last 24 hr 10/31/23 16:45: WBC 7.8, RBC 3.97 L, Hgb 11.7 L, Hct 36.1 L, MCV 90.9, MCH 29.5, MCHC 32.4, RDW Std Deviation 49.6 H, RDW Coeff of Kathryn 14.8 H, Plt Count 241, MPV 8.8, Immature Gran % (Auto) 1.700 H, Neut % (Auto) 64.8, Lymph % (Auto) 20.4, [place] % (Auto) 9.6, Eos % (Auto) 2.7, Baso % (Auto) 0.8, Absolute Neuts (auto) 5.1, Absolute Lymphs (auto) 1.59, Nucleated RBC % 0, Sodium 141, Potassium 4.3, Chloride 112 H, Carbon Dioxide 24.0, Anion Gap 5, BUN 21 H, Creatinine 0.84, Estim Creat Clear Calc 63.33, Est GFR (MDRD) Af Amer 113, Est GFR (MDRD) Non-Af 93, BUN/Creatinine Ratio 25.1 H, Glucose 92, Calcium 9.6 Imaging Radiology Impression Head/Neck CTA 10/31/23 16:33 IMPRESSION: No acute abnormality. No large vessel occlusions. Calcified plaque of both carotid arteries and carotid bulbs. Moderate grade stenosis of both ICAs. Electronically Signed: Da Herrmann MD at 18:19 EST , Assessment & Plan Assessment/Plan (1) CVA (cerebral vascular accident): QUALIFIERS: CVA mechanism: unspecified Qualified Code(s): I63.9 - Cerebral infarction, unspecified PLAN: Plan 1. Recently diagnosed Acute CVA on outpatient MRI on October 30, 2023 that allegedly revealed small foci of acute infarct in Left and Right occipital white matter in the setting of chronic intermittent dizziness - Admit to PCU. We will follow recommendations of [facility] teleneurology and check lipid profile, HgbA1c and echocardiogram with bubble study to evaluate LVEF. PT/OT and Case Management to consult and treat with help appreciated in advance. 2. History of alcohol abuse; allegedly sober for the past ~2 months but with a blood alcohol concentration of 5 mg/dL present on admission - Watch out for signs of withdrawal. Give MVI daily. Check B12 and Folate to evaluate for possible underlying deficiency. Patient will this be discouraged from using alcohol in an effort to prevent serial readmission. 3. Essential hypertension - Continue current medications. 4. Hyperlipidemia - Resume statin and check lipid profile. 5. History of tobacco abuse - Tobacco cessation will be strongly encouraged. 6. CAD; s/p inferior FL with PTCA (1993) - Noted. 7. History of colon cancer; s/p colectomy - Noted. 8. History of prostate cancer; s/p radiation with BPH - Noted. Continue current regimen. 9. Anemia - Stable. 10. Overactive bladder - Resume Oxybutynin as previous. 11. Depression with anxiety - Continue current treatment. 12. OA; with back pain - Stable. Give Tylenol prn. 13. DVT prophylaxis - Lovenox 40 mg sq daily. Total time: Approximately 55 minutes. Charges/Coding Visit Charges Inpatient E&M: 64735 Init Hosp L2
--- NOTE | 2023-10-31 19:50 | ECHOD_ITS ---
Reason For Study: TIA/CVA Procedure This was a 2D Doppler, Color Flow transthoracic echocardiogram. Exam performed portable in patient room. Left Ventricle Normal LV size. The estimated ejection fraction is 70 %. No evidence for diastolic dysfunction. No regional wall motion abnormalities noted. Right Ventricle Normal RV size. Normal systolic function. Atria The left and right atria are normal. No doppler evidence for ASD. Bubble contrast study negative for right to left interatrial shunt. Mitral Valve There is no mitral valve stenosis. Trivial mitral valve insufficiency. Tricuspid Valve There is no tricuspid stenosis. Trivial tricuspid valve insufficiency. Unable to estimate RV systolic pressure due to insufficient tricuspid regurgitant envelope. Aortic Valve Trisinus/trileaflet aortic valve. There is no aortic stenosis. Trivial aortic valve insufficiency. Pulmonic Valve There is no pulmonic valvular stenosis. Trivial pulmonic valve insufficiency. Great Vessels Normal aortic root. Pericardium/Pleural No pericardial effusion. Medication Performed a rapid injection of agitated mix of 9 cc saline and 1cc air to assess for atrial septal defect. MMode/2D Measurements & Calculations LVIDd: 3.6 cm IVSd: 1.2 cm Ao root diam: 3.0 cm LVIDs: 2.5 cm LVPWd: 1.1 cm FS: 30.6 % LAV(MOD-bp): 30.8 ml LVAd ap4: 23.9 cm2 SV(MOD-sp4): 35.7 ml LAV(MOD-bp) Indexed: 16.3 ml/m2 LVLd ap4: 8.1 cm LAV(MOD-sp2): 26.9 ml EDV(MOD-sp4): 59.1 ml LAV(MOD-sp4): 34.9 ml EDV(sp4-el): 60.1 ml LVAs ap4: 13.3 cm2 LVLs ap4: 6.8 cm ESV(MOD-sp4): 23.4 ml ESV(sp4-el): 22.2 ml EF(MOD-sp4): 60.4 % EF(sp4-el): 63.0 % SV(sp4-el): 37.9 ml LA A4 area: 15.0 cm2 LA dimension(2D): 3.3 cm RA A4 area: 9.7 cm2 TAPSE: 2.0 cm Time Measurements MV dec time: 0.17 sec Doppler Measurements & Calculations MV E max joo: 47.1 cm/sec Lat Peak E' Joo: 11.2 cm/sec Med Peak E' Joo: 5.9 cm/sec MV A max joo: 94.2 cm/sec E/E' lat: 4.2 E/E' med: 7.9 MV E/A: 0.50 MV dec slope: 270.3 cm/sec2 Ao V2 max: 146.5 cm/sec LV V1 max: 112.5 cm/sec Ao max P.6 mmHg LV V1 max P.1 mmHg Ao V2 mean: 113.1 cm/sec Ao mean P.5 mmHg Ao V2 VTI: 27.6 cm PA V2 max: 112.5 cm/sec TR max joo: 219.8 cm/sec TR max P.3 mmHg ECHO/Echo Complete Interpretation Summary The estimated ejection fraction is 70 %. No evidence for diastolic dysfunction. Trivial mitral valve insufficiency. Trivial aortic valve insufficiency. Ordering Physician: Kole Fan Referring Physician: Vishal Antonio Performed By: Rossy Crane, ROYAL, RVT
[2023-10-31 20:04] VITALS: BP 108/68; PULSE 78; RESP 16; TEMP 36.7; O2SAT 99
[2023-10-31 20:20] LABS: Hemoglobin A1c 6.1 % (3.8-5.6)
--- NOTE | 2023-10-31 20:23 | ED.RN ---
Called to see if patient was okay for floor, per [employer] repair supervisor they are not ready yet.
[2023-10-31 20:57] VITALS: BMI 25.4
[2023-10-31 21:01] VITALS: BP 107/72; PULSE 73; RESP 16; TEMP 36.4; O2SAT 97
[2023-10-31 21:01] LABS: Thyroid Stim Hormone (TSH) 0.71 uIU/mL (0.358-3.74)
[2023-10-31 21:45] LABS: Vitamin B12 387 pg/mL (211-911)
[2023-10-31 22:00] VITALS: BP 110/75; PULSE 74; RESP 16; TEMP 36.4; O2SAT 97
[2023-10-31] MEDS: 0.9% Normal Saline (1000mL) 1,000 ML 50 ML IV (23:20)
[2023-10-31] MEDS: Buprenorphine 10 MCG PATCH.TDWK 1 PATCH TD (23:20)
[2023-10-31] MEDS: Mirtazapine 15 MG Tablet 45 MG PO (23:24)
[2023-10-31] MEDS: hydrOXYzine 10 MG Tablet PO (23:26)
[2023-10-31] MEDS: buPROPion (SR) 150 MG Tablet.SA PO (23:26)
[2023-10-31] MEDS: Atorvastatin Calcium 10 MG Tablet PO (23:27)
[2023-10-31] MEDS: Tamsulosin HCl 0.4 MG Capsule 0.400000000000000022 MG PO (23:27)
[2023-10-31] MEDS: Nitrofurantoin Macrocrystals 100 MG Capsule PO (23:28)
[2023-11-01] VITALS (7 sets, daily range): BP systolic 118–123; BP diastolic 56–84; PULSE 80–101; RESP 16–18; TEMP 36.4–36.6; O2SAT 95–97; BMI 25.4
[2023-11-01] MEDS: hydrOXYzine 10 MG Tablet PO ×2 (06:41→13:58)
[2023-11-01 06:46] LABS: Cholesterol 127 mg/dL (200); High Density Lipoprotein 35 mg/dL; Triglycerides 134 mg/dL; Very Low Density Lipoprotein 27 mg/dL (5-40)
[2023-11-01] MEDS: buPROPion (SR) 150 MG Tablet.SA PO (10:02)
[2023-11-01] MEDS: Finasteride 5 MG Tablet PO (10:02)
[2023-11-01] MEDS: Nitrofurantoin Macrocrystals 100 MG Capsule PO (10:02)
[2023-11-01] MEDS: Multivitamins,Therapeutic Tablet 1 TABLET PO (10:02)
[2023-11-01] MEDS: Atenolol 25 MG Tablet 12.5 MG PO (10:03)
[2023-11-01] MEDS: Tolterodine Tartrate 2 MG CAP.SA PO (10:03)
[2023-11-01] MEDS: Aspirin E.C. 81 MG Tablet PO (10:04)
[2023-11-01] MEDS: Isosorbide Mononitrate 60 MG Tablet PO (10:04)
--- NOTE | 2023-11-01 10:48 | NEURO.CONS ---
Assessment and Plan: Neuro Assessment/Plan HOWIE MANZO is a 83 M with a past medical history of HLD, Lung Ca s/p lobectomy , being evaluated by Teleneurology for acute ischemic stroke. Pt was sent to the ED after an out pt MRI showed small foci of acute infarct in Left and Right occipital white (not available for me to review) Diagnosis: acute ischemic stroke CTA b/l plaque no sgnficant stenosis Plan: cont ASA 81 mg daily TTE Hba1c, lipid panel cont statin vascular risk modifications consider cardiac event monitor upon discharge if work up is negative for a source of cardio embolic source HPI Consult Data Date of Consult: 11/01/23 HPI Narrative HPI Narrative: HOWIE MANZO, is a 83 M who presents due positive MRI for acute stroke. pt with hx of essential hypertension, hyperlipidemia, history of tobacco abuse, CAD; s/p inferior MN with PTCA (1993), who was complaining of 2 to 4 weeks of ataxia, unsteady gait and dizziness. MRI was done as out pt that showed b/l occipital stroke PFSH Medical History Adenocarcinoma Alcohol use Ambulates with cane Anxiety Arthritis Atherosclerosis of coronary artery of crow heart without angina pectoris Back pain BPH (benign prostatic hyperplasia) Bright's disease Cancer Cardiology follow-up encounter Chest pain Chewing tobacco nicotine dependence Chronic pain Chronic pain Cognitive impairment Colon cancer Depression Easy bruising Essential (primary) hypertension Fall Frequent falls Gait instability Hearing loss, left Hearing loss, right High cholesterol History of echocardiogram History of heart attack History of pain when walking History of prostate cancer History of radiation therapy History of stress test HLD (hyperlipidemia) Kidney disease Kidney stones Myocardial infarct Old inferior wall myocardial infarction Smoker Vision loss of left eye Vision loss of right eye Vitamin D deficiency Wears dentures Wears glasses Wears hearing aid Medical History no medical history Home Medications finasteride 5 mg tablet (Proscar) 5 mg PO DAILY prostate 01/27/18 [History Last Taken 10/31/23] aspirin 81 mg tablet,delayed release (Adult Low Dose Aspirin) 81 mg PO DAILY heart health 07/30/18 [History Last Taken 10/31/23] tamsulosin 0.4 mg capsule 0.4 mg PO QHS prostate 10/21/21 [History Last Taken 10/30/23] atenolol 25 mg tablet 12.5 mg PO QDAY blood pressure 07/15/22 [History Last Taken 10/31/23] isosorbide mononitrate 60 mg tablet,extended release 24 hr 60 mg PO DAILY heart #90 tabs 01/16/23 [Rx Last Taken 10/31/23] buprenorphine 10 mcg/hour weekly transdermal patch 1 patch transdermal FR pain 04/17/23 [History Last Taken 10/24/23] oxybutynin chloride 10 mg tablet,extended release 24 hr 10 mg PO DAILY overactive bladder 04/17/23 [History Last Taken 10/31/23] psyllium husk (aspartame) 3 gram oral powder packet (Daily Fiber (psyllium-aspartame)) 1 packet PO DAILY PRN loose stools #0 ea 04/20/23 [Rx Last Taken 04/18/23] acetaminophen 500 mg tablet 1,000 mg (2 x 500 mg) PO Q8 #0 tabs 05/02/23 [Rx Last Taken Unknown] nitroglycerin 0.4 mg sublingual tablet 0.4 mg sublingual Q5M PRN Chest Pain #25 tabs 05/12/23 [Rx Last Taken Unknown] atorvastatin 10 mg tablet 10 mg PO QHS 10/31/23 [History Last Taken 10/30/23] bupropion HCl 150 mg tablet,12 hr sustained-release 150 mg PO Q12H 10/31/23 [History Last Taken 10/31/23] hydroxyzine HCl 25 mg tablet 12.5 mg PO Q8H 10/31/23 [History Last Taken Unknown] mirtazapine 45 mg tablet 45 mg PO QHS 10/31/23 [History Last Taken 10/30/23] nitrofurantoin monohydrate/macrocrystals 100 mg capsule 100 mg PO Q12H 10/31/23 [History Last Taken 10/31/23] Allergy/AdvReac Type Severity Reaction Status Date / Time No Known Allergies Allergy Verified 10/07/23 19:32 Family History Father Cancer skin cancer Mother Myocardial infarction Diabetes Other Fall Surgical History H/O percutaneous transluminal coronary angioplasty (11/13/93) History of angioplasty History of colostomy History of cystoscopy History of inguinal hernia repair, bilateral History of left heart catheterization (02/24/02) History of rotator cuff surgery Hx of appendectomy Hx of colectomy Status post trigger finger release Social History household members: none Smoking Status: Former smoker alcohol intake: current alcohol intake frequency: a few times a month Alcohol type: hard liquor substance use type: does not use caffeine: Yes Type: coffee Number of servings: 1 Vital Signs Vital Signs Vital Signs: 10/31/23 15:17 10/31/23 18:36 10/31/23 20:04 Temperature 97.7 F L 98.0 F Temperature Source Temporal Pulse Rate 88 80 78 Pulse Strength Respiratory Rate 16 14 16 Respiratory Effort Respiratory Depth Respiratory Pattern Blood Pressure 108/69 112/51 L 108/68 Blood Pressure Mean 82 71 81 Blood Pressure Source Blood Pressure Position Blood Pressure Location Pulse Ox 97 94 99 Oxygen Delivery Method Room Air Room Air 10/31/23 21:01 11/01/23 02:50 11/01/23 06:00 Temperature 97.6 F L 97.7 F L Temperature Source Oral Oral Pulse Rate 73 80 Pulse Strength Respiratory Rate 16 17 Respiratory Effort Respiratory Depth Respiratory Pattern Blood Pressure 107/72 118/66 Blood Pressure Mean 83 83 Blood Pressure Source Monitor Monitor Blood Pressure Position Semi-Fowlers Semi-Fowlers Blood Pressure Location Left Arm Left Arm Pulse Ox 97 96 95 Oxygen Delivery Method Room Air Room Air Room Air 11/01/23 02:00 10/31/23 22:00 10/31/23 22:00 Temperature 97.7 F L 97.5 F L Temperature Source Oral Oral Pulse Rate 82 74 Pulse Strength Respiratory Rate 16 16 Respiratory Effort Normal Respiratory Depth Normal Respiratory Pattern Normal Blood Pressure 120/84 H 110/75 Blood Pressure Mean 96 86 Blood Pressure Source Monitor Monitor Blood Pressure Position Semi-Fowlers Semi-Fowlers Blood Pressure Location Left Arm Left Arm Pulse Ox 96 97 Oxygen Delivery Method Room Air Room Air Room Air 11/01/23 08:31 11/01/23 08:40 11/01/23 08:40 Temperature Temperature Source Pulse Rate Pulse Strength Normal (2+) Respiratory Rate Respiratory Effort Normal Non-Labored Respiratory Depth Normal Respiratory Pattern Normal Blood Pressure Blood Pressure Mean Blood Pressure Source Blood Pressure Position Blood Pressure Location Pulse Ox 96 Oxygen Delivery Method Room Air Room Air 11/01/23 10:00 Temperature 97.8 F Temperature Source Temporal Pulse Rate 101 H Pulse Strength Respiratory Rate 18 Respiratory Effort Respiratory Depth Respiratory Pattern Blood Pressure 123/56 H Blood Pressure Mean 78 Blood Pressure Source Monitor Blood Pressure Position Semi-Fowlers Blood Pressure Location Left Arm Pulse Ox 97 Oxygen Delivery Method Room Air Weight Weight: 73.8 kg Body Mass Index (BMI) 25.4 EEG Results Procedure Details EEG Procedure Details: HOWIE MANZO is a 83 year old M with a past medical history of , who presents for evaluation of Electroencephalogram on DATE at TIME NIHSS NIHSS Nursing Documentation NIHSS Nursing Documentation: NIH Stroke Scale Start: 10/31/23 15:58 Freq: Status: Discharge Protocol: Activity Type Activity Date Activity User E-sign Co-sign Detail Recorded Client Recorded Date Recorded By Document 10/31/23 15:58 DKM Desktop 10/31/23 15:59 DKM 10/31/23 15:58 NIH Stroke Scale [NIHSS] A score of 0 is normal or asymptomatic . Total possible score is 42. Inpatient: RN or Physician to activate a stroke alert for onset of new stroke symptoms or with NIHSS increase >/= 3 points. Following change in neurological status, NIHSS will be performed per physician order or more frequently PRN. -1a. Level of Consciousness Alert; keenly responsive -1b. LOC Questions Answers BOTH questions correctly. -1c. LOC Commands Performs both tasks correctly . -2. Best Gaze Normal -3. Visual No visual loss -4. Facial Palsy Normal symmetrical movements -5a. Left Arm No drift; arm holds 90 (or 45 ) degrees for full 10 seconds -5b. Right Arm No drift; arm holds 90 (or 45 ) degrees for full 10 seconds -6a. Left Leg No drift; leg holds 30-degree position for full 5 seconds -6b. Right Leg No drift; leg holds 30-degree position for full 5 seconds -7. Limb Ataxia Absent -8. Sensory Normal; no sensory loss -9. Best Language No aphasia; normal -10. Dysarthria Normal -11. Extinction and Inattention No abnormality -Total 0 Query Text:A score of 0 is normal or asymptomatic. Total possible score is 42 . ED: Notify Physician for NIHSS increase by > / = 3 points. Inpatient: RN or Physician to activate a stroke alert for NIHSS increase of > / = 3 points. NIHSS: Ischemic Stroke/TIA Start: 10/31/23 21:01 Text: For PCU Patients: NIH and Neuro Check every 4 Status: Active hours and PRN Freq: [id number] Protocol: Activity Type Activity Date Activity User E-sign Co-sign Detail Recorded Client Recorded Date Recorded By Document 11/01/23 10:00 8 Desktop 11/01/23 10:10 [facility] 11/01/23 10:00 -1a. Level of Consciousness Alert; keenly responsive -1b. LOC Questions Answers BOTH questions correctly. -1c. LOC Commands Performs both tasks correctly . -2. Best Gaze Normal -3. Visual No visual loss -4. Facial Palsy Normal symmetrical movements -5a. Left Arm No drift; arm holds 90 (or 45 ) degrees for full 10 seconds -5b. Right Arm No drift; arm holds 90 (or 45 ) degrees for full 10 seconds -6a. Left Leg No drift; leg holds 30-degree position for full 5 seconds -6b. Right Leg No drift; leg holds 30-degree position for full 5 seconds -7. Limb Ataxia Absent -8. Sensory Normal; no sensory loss -9. Best Language No aphasia; normal -10. Dysarthria Normal -11. Extinction and Inattention No abnormality -Total 0 Query Text:A score of 0 is normal or asymptomatic. Total possible score is 42 . ED: Notify Physician for NIHSS increase by > / = 3 points. Inpatient: RN or Physician to activate a stroke alert for NIHSS increase of > / = 3 points. Coma Scale [Assess] -Eye Opening Spontaneous -Motor Obeys Commands -Verbal Oriented [Total] -Coma Scale Total 15 Lab / Micro Data 10/31/23 16:45 10/31/23 16:45 Labs: Laboratory Results - last 24 hr 10/31/23 16:45: WBC 7.8, RBC 3.97 L, Hgb 11.7 L, Hct 36.1 L, MCV 90.9, MCH 29.5, MCHC 32.4, RDW Std Deviation 49.6 H, RDW Coeff of Kathryn 14.8 H, Plt Count 241, MPV 8.8, Immature Gran % (Auto) 1.700 H, Neut % (Auto) 64.8, Lymph % (Auto) 20.4, [place] % (Auto) 9.6, Eos % (Auto) 2.7, Baso % (Auto) 0.8, Absolute Neuts (auto) 5.1, Absolute Lymphs (auto) 1.59, Nucleated RBC % 0, Sodium 141, Potassium 4.3, Chloride 112 H, Carbon Dioxide 24.0, Anion Gap 5, BUN 21 H, Creatinine 0.84, Estim Creat Clear Calc 63.33, Est GFR (MDRD) Af Amer 113, Est GFR (MDRD) Non-Af 93, BUN/Creatinine Ratio 25.1 H, Glucose 92, Calcium 9.6 10/31/23 19:57: Hemoglobin A1c 6.1 H, Vitamin B12 387, Folate 18.40, TSH 0.71, Ethyl Alcohol 5.0 11/01/23 04:17: Triglycerides 134, Cholesterol 127, LDL Cholesterol 65, VLDL Cholesterol 27, HDL Cholesterol 35 L Imaging Radiology Impression Head/Neck CTA 10/31/23 16:33 IMPRESSION: No acute abnormality. No large vessel occlusions. Calcified plaque of both carotid arteries and carotid bulbs. Moderate grade stenosis of both ICAs. Electronically Signed: Da Herrmann MD at 18:19 EST Reading Location ID and State: [facility] / [place] , Service support , Active Medications Active Medications Active Medications: Current Medications Generic Name Dose Route Start Last Admin Trade Name Freq PRN Reason Stop Dose Admin Acetaminophen 650 mg 10/31/23 21:01 Acetaminophen 500 Mg Tablet PO Q6H PRN Pain 1-10 or Fever Aspirin 81 mg 11/01/23 10:00 11/01/23 10:04 Aspirin E.C. 81 Mg Tablet PO 81 mg DAILY DIANA Administration Atenolol 12.5 mg 11/01/23 10:00 11/01/23 10:03 Atenolol 25 Mg Tablet PO 12.5 mg DAILY DIANA Administration Protocol Atorvastatin Calcium 10 mg 10/31/23 22:00 10/31/23 23:27 Atorvastatin Calcium 10 Mg Tablet PO 10 mg QHS DIANA Administration Buprenorphine 1 patch 10/31/23 22:00 10/31/23 23:20 Buprenorphine 10 Mcg Patch.Tdwk TD 1 patch FR DIANA Administration Bupropion HCl 150 mg 10/31/23 22:00 11/01/23 10:02 Bupropion (Sr) 150 Mg Tablet.Sa PO 150 mg Q12 DIANA Administration Finasteride 5 mg 11/01/23 10:00 11/01/23 10:02 Finasteride 5 Mg Tablet PO 5 mg DAILY DIANA Administration Hydralazine HCl 5 mg 10/31/23 21:01 Hydralazine 20 Mg/Ml Vial IV Q30M PRN to maintain BP goals Hydroxyzine HCl 10 mg 10/31/23 22:00 11/01/23 06:41 Hydroxyzine 10 Mg Tablet PO 10 mg Q8 DIANA Administration Sodium Chloride 1,000 mls @ 50 mls/hr 10/31/23 21:01 10/31/23 23:20 IV 50 mls/hr .Q20H DIANA Administration Sodium Chloride 250 mls @ 15 mls/hr 10/31/23 21:06 IV .[id number] PRN Additional IVPB Infusion Sodium Chloride 250 mls @ 15 mls/hr 10/31/23 21:06 IV .[id number] PRN Saline Flush Isosorbide Mononitrate 60 mg 11/01/23 10:00 11/01/23 10:04 Isosorbide Mononitrate 60 Mg Tablet PO 60 mg DAILY DIANA Administration Protocol Mirtazapine 45 mg 10/31/23 22:00 10/31/23 23:24 Mirtazapine 15 Mg Tablet PO 45 mg QHS DIANA Administration Multivitamins 1 tablet 11/01/23 08:00 11/01/23 10:02 Multivitamins,Therapeutic Tablet PO 1 tablet BREAKFAST DIANA Administration Nitrofurantoin Macrocrystals 100 mg 10/31/23 22:00 11/01/23 10:02 Nitrofurantoin Macrocrystals 100 Mg Capsule PO 100 mg Q12 DIANA Administration Nitroglycerin 0.4 mg 10/31/23 22:00 Nitroglycerin (Inpatient Use) 0.4 Mg Tab.Subl SL Q5M PRN Chest Pain Psyllium Hydrophilic Mucilloid 1 packet 11/01/23 10:00 Psyllium 1 Packet PO DAILY PRN loose stools Sodium Chloride 10 - 40 ml 10/31/23 21:06 0.9% Saline Lock 10 Ml Syringe IV UD PRN SALINE FLUSH Tamsulosin HCl 0.4 mg 10/31/23 22:00 10/31/23 23:27 Tamsulosin Hcl 0.4 Mg Capsule PO 0.4 mg QHS DIANA Administration Tolterodine Tartrate 2 mg 11/01/23 10:00 11/01/23 10:03 Tolterodine Tartrate 2 Mg Cap.Sa PO 2 mg DAILY DIANA Administration
--- NOTE | 2023-11-01 12:16 | CASEMGMT ---
Social work Pt completed PHQ-9 w/SW due to recent stroke, pt scored a 0, no indication of depression at this time. TOM Millard
--- NOTE | 2023-11-01 14:55 | DCINST_ITS ---
Discharge Instructions Diet Discharge Diet: No restrictions Activity Discharge Activity: Return to Normal Activity Weight Bearing Status: Full weight bearing Follow Up Care Test Results: Test results from this visit will be discussed in further detail at your follow- up appointment, if applicable. Discharge Plan Admission Admit Date/Time: 10/31/23 19:46 Primary Reason for Your Visit: Left parietal/ occipital stroke Attending Provider: Samuel Falk Primary Care Provider: Vishal Antonio Consulting Providers: Jose Soares; Nita Draper; Terra Wakefield; Bonita Chambers; Jesusita Coe; Harish Ashley; Nivia Estrada; Jeremias Treviño; Flo Fonseca; Tatianna Mills; Niranjan Galindo; Rosemarie Umana; Patti Massey; Sahwn Blake; Neto Carl; Alejandro Mendez; Lanre Duarte; Daphne Werner; Tran Sheppard; Kole Fan Discharge Orders/Prescriptions Prescriptions: Continued finasteride [Proscar] 5 mg tablet 5 mg PO DAILY aspirin [Adult Low Dose Aspirin] 81 mg tablet,delayed release (DR/EC) 81 mg PO DAILY tamsulosin 0.4 mg capsule 0.4 mg PO QHS atenolol 25 mg tablet 12.5 mg PO QDAY oxybutynin chloride 10 mg tablet extended release 24hr 10 mg PO DAILY buprenorphine 10 mcg/hour patch weekly 1 patch transdermal FR Patient Comments: took patch off today and did not put new one on Daily Fiber (psyllium-aspart) 3 gram Powder In Packet 1 packet PO DAILY PRN (Reason: loose stools) Qty: 0 0RF acetaminophen 500 mg Tablet 1,000 mg PO Q8 Qty: 0 0RF atorvastatin 10 mg tablet 10 mg PO QHS Patient Comments: take 1 tablet by mouth at bedtime bupropion HCl 150 mg tablet sustained-release 12 hr 150 mg PO Q12H Patient Comments: take 1 tablet by mouth twice a day hydroxyzine HCl 25 mg tablet 12.5 mg PO Q8H mirtazapine 45 mg tablet 45 mg PO QHS Patient Comments: take 1 tablet by mouth once daily at bedtime nitrofurantoin monohyd/m-cryst 100 mg capsule 100 mg PO Q12H Patient Comments: take 1 capsule by mouth twice a day for 5 days Rx Instructions: X5D FILLED 10/27 isosorbide mononitrate 60 mg tablet extended release 24 hr 60 mg PO DAILY Qty: 90 3RF nitroglycerin 0.4 mg tablet, sublingual 0.4 mg SL Q5M PRN (Reason: Chest Pain) Qty: 25 3RF Referrals / Follow Up: Vishal Antonio MD [Primary Care Provider] - Disposition Disposition (needs filled in before D/C Order can be placed): Home, Self Care
--- NOTE | 2023-11-01 14:59 | DS.PCM_ITS ---
Providers Date of Admission: 10/31/23 Date of Discharge: 11/01/23 Primary Care Physician: Dr. Vishal Antonio MD Consultations 10/31/23 16:22 Teleneurology [Consult: Tele-Neurology] Stat Consulting Provider: [facility] Reason for Consult: stroke EMERGENT Consult: Yes Notified: Yes Date Notified: 10/31/23 Time Notified: 16:22 Method of Notification: Verbal Nursing Unit Staff Notify [facility] of Tele-Neurology Consult: Yes Reason For Visit: RECENT CVA Diagnosis Discharge Diagnosis (1) CVA (cerebral vascular accident): Status: Acute Code(s): I63.9 - Cerebral infarction, unspecified Qualifiers: CVA mechanism: unspecified Qualified Code(s): I63.9 - Cerebral infarction, unspecified Plan 1. Acute ischemic infarction in the left parietal/occipital area present on admission #2 essential hypertension #3 chronic depression Medications at Discharge Home Medications finasteride 5 mg tablet (Proscar) 5 mg PO DAILY prostate 01/27/18 aspirin 81 mg tablet,delayed release (Adult Low Dose Aspirin) 81 mg PO DAILY heart health 07/30/18 tamsulosin 0.4 mg capsule 0.4 mg PO QHS prostate 10/21/21 atenolol 25 mg tablet 12.5 mg PO QDAY blood pressure 07/15/22 isosorbide mononitrate 60 mg tablet,extended release 24 hr 60 mg PO DAILY heart #90 tabs 01/16/23 buprenorphine 10 mcg/hour weekly transdermal patch 1 patch transdermal FR pain 04/17/23 oxybutynin chloride 10 mg tablet,extended release 24 hr 10 mg PO DAILY overactive bladder 04/17/23 psyllium husk (aspartame) 3 gram oral powder packet (Daily Fiber (psyllium- aspartame)) 1 packet PO DAILY PRN loose stools #0 ea 04/20/23 acetaminophen 500 mg tablet 1,000 mg (2 x 500 mg) PO Q8 pain #0 tabs 05/02/23 nitroglycerin 0.4 mg sublingual tablet 0.4 mg sublingual Q5M PRN Chest Pain #25 tabs 05/12/23 atorvastatin 10 mg tablet 10 mg PO QHS cholesterol 10/31/23 bupropion HCl 150 mg tablet,12 hr sustained-release 150 mg PO Q12H pain 10/31/23 hydroxyzine HCl 25 mg tablet 12.5 mg PO Q8H 10/31/23 mirtazapine 45 mg tablet 45 mg PO QHS mental health 10/31/23 nitrofurantoin monohydrate/macrocrystals 100 mg capsule 100 mg PO Q12H antibiotic 10/31/23 Hospital Course Operations None Procedures 2-D Echocardiogram Summary of Care Provided Minutes Spent on Discharge: 30 Hospital Course: This 83-year-old white male was seen in the emergency room at [facility] after being told to go there for evaluation after an abnormal MRI which showed concern for stroke. Patient complained of intermittent dizziness over the last several months prior. Workup in the emergency room included a CBC which showed a normal white blood cell count and hemoglobin of 11.7, chemistry profile was remarkable for BUN of 21, head and neck CTA showed no acute abnormality and no large vessel occlusion. Patient was admitted to PCU, he was seen by PT OT and speech therapy, they did not feel the patient needed outpatient therapy services. Patient had an echocardiogram which showed a normal EF and no thrombus in the ventricle, there is no evidence of a right to left shunt. On 11/01/2023, patient was seen and examined: On examination he appeared in good health and spirits. Vital signs as documented. Skin warm and dry and without overt rashes. Neck without JVD, neck was supple, trachea midline, thyroid was normal. Lungs clear bilaterally, normal air movement was noted. Heart exam notable for regular rhythm, normal sounds and absence of murmurs, rubs or gallops. Abdomen unremarkable and without evidence of organomegaly, masses, or abdominal aortic enlargement. Bowel sounds are present, abdomen is not distended. Extremities nonedematous, no cyanosis was noted, no clubbing was noted. Neuro: Cranial nerves II through XII are grossly intact, no focal motor deficits were noted, sensation to light touch and pinprick intact, motor exam 5/5 throughout. Psych: Patient is alert and oriented x3, he does not appear anxious or depressed, he does not appear agitated. Patient appears stable for discharge home on 11/01/2023. Weight / BMI Weight Weight: 73.8 kg Body Mass Index (BMI) 25.4 ABG / Lab / Microbiology Data 10/31/23 16:45 10/31/23 16:45 Laboratory: Laboratory Results - last 24 hr 10/31/23 16:45: WBC 7.8, RBC 3.97 L, Hgb 11.7 L, Hct 36.1 L, MCV 90.9, MCH 29.5, MCHC 32.4, RDW Std Deviation 49.6 H, RDW Coeff of Kathryn 14.8 H, Plt Count 241, MPV 8.8, Immature Gran % (Auto) 1.700 H, Neut % (Auto) 64.8, Lymph % (Auto) 20.4, [place] % (Auto) 9.6, Eos % (Auto) 2.7, Baso % (Auto) 0.8, Absolute Neuts (auto) 5.1, Absolute Lymphs (auto) 1.59, Nucleated RBC % 0, Sodium 141, Potassium 4.3, Chloride 112 H, Carbon Dioxide 24.0, Anion Gap 5, BUN 21 H, Creatinine 0.84, Estim Creat Clear Calc 63.33, Est GFR (MDRD) Af Amer 113, Est GFR (MDRD) Non-Af 93, BUN/Creatinine Ratio 25.1 H, Glucose 92, Calcium 9.6 10/31/23 19:57: Hemoglobin A1c 6.1 H, Vitamin B12 387, Folate 18.40, TSH 0.71, Ethyl Alcohol 5.0 11/01/23 04:17: Triglycerides 134, Cholesterol 127, LDL Cholesterol 65, VLDL Cholesterol 27, HDL Cholesterol 35 L Radiography Diagnostic Testing: Radiology Impression Head/Neck CTA 10/31/23 16:33 IMPRESSION: No acute abnormality. No large vessel occlusions. Calcified plaque of both carotid arteries and carotid bulbs. Moderate grade stenosis of both ICAs. Electronically Signed: Da Herrmann MD at 18:19 EST , Echocardiogram 10/31/23 19:50 Interpretation Summary The estimated ejection fraction is 70 %. No evidence for diastolic dysfunction. Trivial mitral valve insufficiency. Trivial aortic valve insufficiency. Ordering Physician: Kole Fan Referring Physician: Vishal Antonio Performed By: Rossy Crane RDCS, RVT D/C Instructions Discharge Diet: No restrictions Weight Bearing Status: Full weight bearing Meaningful Use Info Meaningful Use Diagnoses (Choose all that apply): None applicable Discharge Plan Admission Admit Date/Time: 10/31/23 19:46 Primary Reason for Your Visit: Left parietal/ occipital stroke Attending Provider: Samuel Falk Primary Care Provider: Vishal Antonio Consulting Providers: Jose Soares; Nita Draper; Terra Wakefield; Bonita Chambers; Jesusita Coe; Harish Ashley; Nivia Estrada; Jeremias Treviño; Flo Fonseca; Tatianna Mills; Niranjan Galindo; Rosemarie Umana; Patti Massey; Shawn Blake karen; Neto Carl; Alejandro Mendez; Lanre Duarte; Daphne Werner; Tran Sheppard; Kole Fan Discharge Orders/Prescriptions Prescriptions: Continued finasteride [Proscar] 5 mg tablet 5 mg PO DAILY aspirin [Adult Low Dose Aspirin] 81 mg tablet,delayed release (DR/EC) 81 mg PO DAILY tamsulosin 0.4 mg capsule 0.4 mg PO QHS atenolol 25 mg tablet 12.5 mg PO QDAY oxybutynin chloride 10 mg tablet extended release 24hr 10 mg PO DAILY buprenorphine 10 mcg/hour patch weekly 1 patch transdermal FR Patient Comments: took patch off today and did not put new one on Daily Fiber (psyllium-aspart) 3 gram Powder In Packet 1 packet PO DAILY PRN (Reason: loose stools) Qty: 0 0RF acetaminophen 500 mg Tablet 1,000 mg PO Q8 Qty: 0 0RF atorvastatin 10 mg tablet 10 mg PO QHS Patient Comments: take 1 tablet by mouth at bedtime bupropion HCl 150 mg tablet sustained-release 12 hr 150 mg PO Q12H Patient Comments: take 1 tablet by mouth twice a day hydroxyzine HCl 25 mg tablet 12.5 mg PO Q8H mirtazapine 45 mg tablet 45 mg PO QHS Patient Comments: take 1 tablet by mouth once daily at bedtime nitrofurantoin monohyd/m-cryst 100 mg capsule 100 mg PO Q12H Patient Comments: take 1 capsule by mouth twice a day for 5 days Rx Instructions: X5D FILLED 10/27 isosorbide mononitrate 60 mg tablet extended release 24 hr 60 mg PO DAILY Qty: 90 3RF nitroglycerin 0.4 mg tablet, sublingual 0.4 mg SL Q5M PRN (Reason: Chest Pain) Qty: 25 3RF Referrals / Follow Up: Vishal Antonio MD [Primary Care Provider] - Disposition Disposition (needs filled in before D/C Order can be placed): Home, Self Care Charges/Coding Visit Charges Inpatient E&M: 77203 Disch Hosp
== END 2023-11-01 15:41 | disposition home or self-care (01) | DRG 66 ==
LOC: ED 19:50 → PCU 20:04
PROVIDERS: Admitting Provider Internal Medicine; Emergency Provider Emergency Medicine; PCP Family Medicine; Visit Provider Internal Medicine
DX: I63.9 Cerebral infarction, unspecified (principal); D64.9 Anemia, unspecified; I10 Essential (primary) hypertension; F32.A Depression, unspecified; I25.10 Atherosclerotic heart disease of native coronary artery without angina pectoris; E78.00 Pure hypercholesterolemia, unspecified; I25.2 Old myocardial infarction; F41.9 Anxiety disorder, unspecified; N32.81 Overactive bladder; R29.700 NIHSS score 0; Z90.49 Acquired absence of other specified parts of digestive tract; Z79.82 Long term (current) use of aspirin; Z85.46 Personal history of malignant neoplasm of prostate; Z85.038 Personal history of other malignant neoplasm of large intestine
CPT/HCPCS: 36415; 70496; 70498; 80048; 80061; 80320; 82607; 82746; 83036; 84443; 85025; 93005; 93306; 94762; 97162; 97165; 97802; 99283; J7030; Q9957; Q9967; A4216; G0480

== ENCOUNTER 2023-11-14 00:07 | Inpatient (IN) | payer MEDICARE, BC, SELFPAY ==
[2023-11-14] VITALS (7 sets, daily range): BP systolic 102–149; BP diastolic 54–95; PULSE 82–103; RESP 16–18; TEMP 36.1–36.6; O2SAT 93–100; BMI 27.1; BMI 25.4
--- NOTE | 2023-11-14 00:23 | RAD_ITS ---
INDICATION: pain EXAMINATION/TECHNIQUE: X-RAY - XR Pelvis 1 or 2 Views COMPARISON: 11/28/2020 FINDINGS: PELVIC BONES: No displaced fracture, destructive or sclerotic lesions. Note that overlapping bowel shadows may however obscure fine detail. Sacroiliac joints are unremarkable. No widening of the pubic symphysis. HIPS: Bilateral acetabular marginal osteophytes. Hip joint space is preserved. No displaced fracture seen in this frontal view. SOFT TISSUES: No soft tissue swelling or gas. RAD/Pelvis 1 or 2 Views IMPRESSION: No evidence of displaced pelvic or hip fracture. Electronically Signed: Kole Donato MD at 1:00 EST ,
--- NOTE | 2023-11-14 00:23 | CT_ITS ---
INDICATION: FALL EXAMINATION: CT BRAIN - CT Head or Brain W/O Contrast Injection TECHNIQUE: Multiple axial images were obtained of the head without intravenous contrast. A radiation dose optimization technique was used for this scan. IV Contrast dosage and agent: None. RADIATION DOSAGE (If Supplied By Facility): CTDIvol = ( 44.99 ) mGy, DLP = ( 812.98 ) mGycm COMPARISON: 2.16.2023 FINDINGS: BRAIN PARENCHYMA: No intra- or extra-axial hemorrhage. No evidence of acute infarct. No intracranial mass or mass effect. There is preservation of the dominguez/white matter interface. Posterior fossa structures are unremarkable. Patchy periventricular and deep white matter hypoattenuation is consistent with moderate small vessel ischemic change. CSF SPACES: Proportional prominence of the ventricles and sulcal spaces is consistent with mild cerebral volume loss. No hydrocephalus. Basal cisterns are patent. CALVARIUM, SKULL BASE, PARANASAL SINUSES AND MASTOID AIR CELLS: Paranasal sinuses are clear. Mastoid air cells are clear. The calvarium is intact. No discrete lytic or blastic abnormalities. ORBITS: Both globes, extraocular muscles, optic nerves and retrobulbar fat appear unremarkable. CT/Brain/Head without Contrast IMPRESSION: No acute intracranial finding. Electronically Signed: Kole Donato MD at 0:51 EST ,
--- NOTE | 2023-11-14 00:23 | RAD_ITS ---
INDICATION: pain EXAMINATION/TECHNIQUE: X-RAY - XR Spine Lumbar 2 or 3 Views COMPARISON: 07/21/2018 and 08/04/2020 (CT FINDINGS: VERTEBRAE: There is a 20% superior endplate compression deformity at L1, new but age indeterminate. Remaining vertebral body heights maintained. Mild S-shaped lumbar scoliosis. Grade 1 anterolisthesis of L4 over L5. Preservation of the normal lumbar lordosis. Bulky hypertrophic facet arthropathy throughout the lumbar spine. DISCS: Moderate loss of disc space height at L5-S1. Small endplate osteophytes throughout the lumbar spine. INCLUDED ABDOMEN: Included bowel gas pattern is non-obstructive. RAD/Lumbar Spine 2 or 3 Views IMPRESSION: * New, age indeterminant superior endplate compression fracture of L2 resulting in 10-20% height loss. * Lumbar spondylosis as described. Electronically Signed: Kole Donato MD at 1:03 EST ,
--- NOTE | 2023-11-14 00:26 | EX.ED.DYSGE1 ---
HPI History of Present Illness Chief Complaint: Fall Informant: patient and EMS Narrative Narrative: Patient is an 83-year-old male who lives at home with her reported test operator with past medical history of hypertension BPH hyperlipidemia and recent CVA. He states since his CVA he has had overall balance issues and falls quite often. He states he was actually at the hospital earlier today for an MRI secondary to the frequent falls. He states that this evening he became unsteady/off balance which is normal and fell from a standing position. He states he struck his head and did have LOC. He reports that he does have a test operator but she was not there during this time. He states that he fell when it was getting dark out . He is unsure of how long he was on the ground. He denies any other blood thinner other than aspirin. He states that once he awoke he was able to call 911 secondary to the trauma and he was brought in for evaluation. [facility] Medical History Acute cerebrovascular accident (CVA) Adenocarcinoma Alcohol use Ambulates with cane Anxiety Arthritis Atherosclerosis of coronary artery of [place] heart without angina pectoris Back pain BPH (benign prostatic hyperplasia) Bright's disease Cancer Cardiology follow-up encounter Chest pain Chewing tobacco nicotine dependence Chronic pain Chronic pain Cognitive impairment Colon cancer CVA (cerebral vascular accident) Depression Easy bruising Essential (primary) hypertension Fall Frequent falls Gait instability Hearing loss, left Hearing loss, right High cholesterol History of echocardiogram History of heart attack History of pain when walking History of prostate cancer History of radiation therapy History of stress test HLD (hyperlipidemia) Kidney disease Kidney stones Myocardial infarct Old inferior wall myocardial infarction Smoker Vision loss of left eye Vision loss of right eye Vitamin D deficiency Wears dentures Wears glasses Wears hearing aid Home Medications finasteride 5 mg tablet (Proscar) 5 mg PO DAILY prostate 01/27/18 [History Last Taken 10/31/23] aspirin 81 mg tablet,delayed release (Adult Low Dose Aspirin) 81 mg PO DAILY heart health 07/30/18 [History Last Taken 10/31/23] tamsulosin 0.4 mg capsule 0.4 mg PO QHS prostate 10/21/21 [History Last Taken 10/30/23] atenolol 25 mg tablet 12.5 mg PO QDAY blood pressure 07/15/22 [History Last Taken 10/31/23] isosorbide mononitrate 60 mg tablet,extended release 24 hr 60 mg PO DAILY heart #90 tabs 01/16/23 [Rx Last Taken 10/31/23] buprenorphine 10 mcg/hour weekly transdermal patch 1 patch transdermal FR pain 04/17/23 [History Last Taken 10/24/23] oxybutynin chloride 10 mg tablet,extended release 24 hr 10 mg PO DAILY overactive bladder 04/17/23 [History Last Taken 10/31/23] psyllium husk (aspartame) 3 gram oral powder packet (Daily Fiber (psyllium-aspartame)) 1 packet PO DAILY PRN loose stools #0 ea 04/20/23 [Rx Last Taken 04/18/23] acetaminophen 500 mg tablet 1,000 mg (2 x 500 mg) PO Q8 pain #0 tabs 05/02/23 [Rx Last Taken Unknown] nitroglycerin 0.4 mg sublingual tablet 0.4 mg sublingual Q5M PRN Chest Pain #25 tabs 05/12/23 [Rx Last Taken Unknown] atorvastatin 10 mg tablet 10 mg PO QHS cholesterol 10/31/23 [History Last Taken 10/30/23] bupropion HCl 150 mg tablet,12 hr sustained-release 150 mg PO Q12H pain 10/31/23 [History Last Taken 10/31/23] hydroxyzine HCl 25 mg tablet 12.5 mg PO Q8H 10/31/23 [History Last Taken Unknown] mirtazapine 45 mg tablet 45 mg PO QHS mental health 10/31/23 [History Last Taken 10/30/23] gabapentin 100 mg capsule 100 mg PO TID 11/14/23 [History Last Taken Unknown] Allergy/AdvReac Type Severity Reaction Status Date / Time No Known Allergies Allergy Verified 10/07/23 19:32 Family History Father Cancer skin cancer Mother Myocardial infarction Diabetes Other Fall Surgical History H/O percutaneous transluminal coronary angioplasty (11/13/93) History of angioplasty History of colostomy History of cystoscopy History of inguinal hernia repair, bilateral History of left heart catheterization (02/24/02) History of rotator cuff surgery Hx of appendectomy Hx of colectomy Status post trigger finger release Social History household members: none Smoking Status: Current every day smoker tobacco type: smokeless tobacco alcohol intake: current alcohol intake frequency: a few times a month Alcohol type: hard liquor substance use type: does not use caffeine: Yes Type: coffee Number of servings: 1 ROS ROS ED Constitutional Constitutional ED: Denies chills or fever(s) Eyes Eyes: Denies change in vision ENT ENT ED: Denies sore throat Cardiovascular Cardiovascular: Denies chest pain Respiratory/Chest Respiratory/Chest: Denies cough or dyspnea Gastrointestinal Gastrointestinal: Denies abdominal pain, diarrhea, nausea or vomiting Genitourinary Genitourinary ED: Denies dysuria Musculoskeletal Musculoskeletal: Reports back pain Integumentary Reports Abrasions Neurologic Neurologic: Reports headache(s) and weakness Hematologic/Lymphatic Hematologic/Lymphatic: Denies easy bleeding or easy bruising EXAM Physical Exam Const Vital Signs: 11/14/23 00:07 11/14/23 00:07 11/14/23 01:22 Temperature 97.3 F L 97.2 F L Temperature Source Temporal Pulse Rate 103 H 89 Respiratory Rate 18 16 Respiratory Effort Normal Non-Labored Respiratory Depth Normal Respiratory Pattern Normal Blood Pressure 126/95 H 126/69 H Blood Pressure Mean 105 88 Pulse Ox 94 94 93 Oxygen Delivery Method Room Air Room Air Positive well nourished and well developed General Appearance ED: well developed HEENT Reports dry mucous membranes HEENT Narrative: Patient has superficial abrasions to the left side of the face and scalp consistent with report of fall without obvious laceration requiring closure. There is dried blood present secondary to the abrasions and mild soft tissue swelling without signs of depressed or basilar skull fracture No septal hematoma noted Mouth ED: Yes dry mucous membranes Mouth: dry mucous membranes Eyes PERRL and EOMs intact bilaterally Eyes Narrative: No hyphema Neck supple Neck Narrative: No bony deformity or step-off of the cervical spine no midline pain with palpation Patient can move his neck in all directions without pain Chest Wall palpation of chest normal Chest Narrative: No bony deformity or crepitance noted Resp normal respiratory effort and clear to auscultation bilaterally Resp Narrative: Breath sounds are diminished throughout but overall clear to auscultation without signs of respiratory distress Cardio regular rate and regular rhythm GI normal to inspection, nondistended, normoactive bowel sounds, non-tender, non-distended and no masses GI Narrative: Patient has colostomy in place draining brown stool No rigidity or guarding No pulsatile mass or increased tympany Auscultation: normoactive bowel sounds Palpation: soft Back/Spine Back/Spine Narrative: No bony deformity or step-off of the thoracic or lumbar spine but there is midline lower lumbar pain with palpation Extremity Extremity Narrative: Pelvis is stable there is no shortening or external rotation of either lower extremity Patient has a skin tear to the left forearm with minimal ooze of blood and no signs of infection Patient is able to move all extremities at baseline Neuro oriented x3 and CN's II-XII intact bilaterally Neuro Narrative: Patient is at his baseline mental status. He has chronic changes secondary to previous CVA but no new or acute findings. Sensorium / Orientation: alert Psych mental status grossly normal Skin Skin Narrative: Skin turgor is increased Superficial abrasions to the left side of the face/scalp as documented above with left forearm skin tear MDM MDM MDM Narrative Medical decision making narrative: Patient arrived to the ER awake alert and oriented with stable vitals. He reported he fell because he was off balance which is normal for him since his recent stroke. However he did sustain LOC and there is concern for underlying skull fracture versus subdural or subarachnoid hemorrhage. Patient also had back pain on exam concerning for lumbar contusion versus compression fracture. There is also possibility that he is in rhabdomyolysis based on his unknown downtime. Secondary to his imaging and basic labs were obtained. CT of the head revealed no acute signs of trauma and x-rays showed a age-indeterminate L2 fracture which does correlate with his pain on exam but this is only 10 to 20% in nature and therefore does not require orthopedic/neurosurgery consultation especially as he does not have neurovascular compromise of his lower extremities. His CK level was elevated at 8000 correlating with rhabdomyolysis. Secondary to this he was started on IV normal saline. Based on his advanced age and recurrent falls and the fact he is now on rhabdomyolysis I feel he would benefit from IV hydration and the potential evaluation by social work and physical therapy/Occupational Therapy to discuss potential rehab or retirement placement as it appears he needs further help than what he is receiving at home at this time. This plan of care was discussed with the patient as well as the hospitalist. Patient agrees to this and therefore the hospitalist was contacted and agrees to accept the patient for further care at this time History & Record Review Discussion w/independent historian: Patient Lab Data Attestation: I reviewed the patient's lab results. Labs: Laboratory Results - last 24 hr 11/14/23 00:15 WBC 9.5 RBC 3.76 L Hgb 11.2 L Hct 34.1 L MCV 90.7 MCH 29.8 MCHC 32.8 RDW Std Deviation 48.3 H RDW Coeff of Kathryn 14.6 Plt Count 252 MPV 8.8 Immature Gran % (Auto) 0.500 Neut % (Auto) 84.9 H Lymph % (Auto) 6.2 L [place] % (Auto) 7.7 Eos % (Auto) 0.5 Baso % (Auto) 0.2 Absolute Neuts (auto) 8.0 H Absolute Lymphs (auto) 0.59 L Nucleated RBC % 0 Sodium 137 Potassium 4.0 Chloride 106 Carbon Dioxide 25.0 Anion Gap 6 BUN 23 H Creatinine 1.14 Estim Creat Clear Calc 45.10 Est GFR (MDRD) Af Amer 79 Est GFR (MDRD) Non-Af 65 BUN/Creatinine Ratio 20.2 H Glucose 92 Calcium 9.6 Total Creatine Kinase 1000 H Radiography Diagnostic Testing: Clinical Impression(s) from Imaging Studies Brain CT 11/14/23 00:23 IMPRESSION: No acute intracranial finding. Electronically Signed: Kole Donato MD at 0:51 EST Reading Location ID and State: [facility] / MD Tel , Service support , Lumbar Spine X-Ray 11/14/23 00:23 IMPRESSION: * New, age indeterminant superior endplate compression fracture of L2 resulting in 10-20% height loss. * Lumbar spondylosis as described. Electronically Signed: Kole Donato MD at 1:03 EST , Pelvis X-Ray 11/14/23 00:23 IMPRESSION: No evidence of displaced pelvic or hip fracture. Electronically Signed: Kole Donato MD at 1:00 EST , Pelvis x-ray as interpreted by the emergency medicine physician reveals no acute fracture or dislocation Lumbar spine x-ray as interpreted by the emergency medicine physician reveals an age-indeterminate L2 compression fracture Management Discussion w/another healthcare provider: Hospitalist Discharge Plan Triage Chief Complaint: Fall ED Provider: Jae Scanlon Dx/Rx/DC Orders Clinical Impression: Cerebral arteriosclerosis with history of previous cerebrovascular accident, Essential (primary) hypertension, Closed compression fracture of lumbar vertebra, Rhabdomyolysis Prescriptions: No Action finasteride [Proscar] 5 mg tablet 5 mg PO DAILY aspirin [Adult Low Dose Aspirin] 81 mg tablet,delayed release (DR/EC) 81 mg PO DAILY tamsulosin 0.4 mg capsule 0.4 mg PO QHS atenolol 25 mg tablet 12.5 mg PO QDAY oxybutynin chloride 10 mg tablet extended release 24hr 10 mg PO DAILY buprenorphine 10 mcg/hour patch weekly 1 patch transdermal FR Patient Comments: took patch off today and did not put new one on Daily Fiber (psyllium-aspart) 3 gram Powder In Packet 1 packet PO DAILY PRN (Reason: loose stools) Qty: 0 0RF acetaminophen 500 mg Tablet 1,000 mg PO Q8 Qty: 0 0RF gabapentin 100 mg capsule 100 mg PO TID Patient Comments: take 1 capsule by mouth three times a day atorvastatin 10 mg tablet 10 mg PO QHS Patient Comments: take 1 tablet by mouth at bedtime bupropion HCl 150 mg tablet sustained-release 12 hr 150 mg PO Q12H Patient Comments: take 1 tablet by mouth twice a day hydroxyzine HCl 25 mg tablet 12.5 mg PO Q8H mirtazapine 45 mg tablet 45 mg PO QHS Patient Comments: take 1 tablet by mouth once daily at bedtime isosorbide mononitrate 60 mg tablet extended release 24 hr 60 mg PO DAILY Qty: 90 3RF nitroglycerin 0.4 mg tablet, sublingual 0.4 mg SL Q5M PRN (Reason: Chest Pain) Qty: 25 3RF Primary Care Provider: Vishal Antonio Referrals: Vishal Antonio MD [Primary Care Provider] - Disposition Disposition: Acute Care Hospital [facility]
[2023-11-14 00:32] LABS: Absolute Lymphocyte Count 0.59 X10^3/uL (0.83-4.51); Basophil# 0.02 X10^3/uL; Basophil% 0.2 % (0-1); Eosinophil# 0.05 X10^3/uL; Eosinophils% 0.5 % (0-5); Hematocrit 34.1 % (40-54); Hemoglobin 11.2 g/dL (13.0-16.5); Lymphocyte # 0.59 X10^3/ul (0.83-4.51); Lymphocyte % 6.2 % (19-41); Mean Corp Hgb Conc 32.8 g/dL (32-36); Mean Corpuscular Hgb 29.8 pg (27.0-32.0); Mean Corpuscular Volume 90.7 fL (80-94); Mean Platelet Vol. 8.8 fl (6.2-12.0); Monocyte# 0.73 X10^3/uL; Monocyte% 7.7 % (0-10); NRBC Flagged by Analyzer 0 % (0-5); Neutrophil # 8.01 X10^3/uL (2.7-7.7); Neutrophil % 84.9 % (47-70); POSITIVE DIFFERENTIAL YES; Platelet Count 252 K/mm3 (150-450); RBC Distribution Width CV 14.6 % (11.6-14.6); RBC Distribution Width SD 48.3 fl (35.1-43.9); Red Blood Count 3.76 M/mm3 (4.6-6.2); White Blood Count 9.5 K/mm3 (4.4-11.0)
--- OUTSIDE RECORDS SUMMARY | 2023-11-14 00:33 | XMS RPT_ITS | CCD ---
Author Name Unknown Address [address] [place] [address] Organization [facility] Care Team Providers [facility] Teacher Name Role Phone Nikolay Villa Unavailable Unavailable Renetta DELGADILLO, Asha Noble Unavailable Unavailable ELIE Roger, Angélica Galicia Unavailable Unavailabl e Ann-Marie Fox Unavailable Ann-Marie Fox Unavailable MD Yuok, Wampum S Unavailable Bradly Condon Unavailable Unavailable Nikolay Villa Unavailable Unavailable Ridge RN, Deborah Unavailable Unavailable Vishal Jones MD Primary Care [...] MD, Clement Unavailable Vishal Jones MD Unavailable Carlos SU, Maye Rios Unavailable Most RNDayna Unavailable Maye Gonzalez MD Unavailable Doniharika RN, Deborah Unavailable Unavailable Most RNDayna Unavailable Roxana Burton Unavailable Unavailabl sushil Werner MD, Clement Unavailable ROBERT, VISHAL A Attending Unavailable ROBERT, VISHAL A Primary Care Unavailable REN CHUA Attending Unavailable ROBERT, VISHAL A Primary Care Unavailable ROBERT, VISHAL A Referring Unavailable ROBERT, VISHAL A Primary Care Unavailable TAMEKA MARSHALL Attending Unavailable TAMEKA MARSHLAL Referring Unavailable ROBERT, VISHAL A Primary Care Unavailable ROBERT, VISHAL A Primary Care Unavailable ROBERT, VISHAL A Primary Care Unavailable MIKHAIL LIU JR Referring Unavailable TAMEKA MARSHALL Referring Unavailable ROBERT, VISHAL A Primary Care Unavailable ROBERT, VISHAL A Primary Care Unavailable CLEMENT WERNER Attending Unavailable MASCI, SAM A Referring Unavailable ROBERT, VISHAL A Primary Care Unavailable CLEMENT WERNER Attending Unavailable ROBERT, VISHAL A Referring Unavailable ROBERT, VISHAL A Primary Care Unavailable MASCI, SAM A Referring Unavailable ROBERT, VISHAL A Primary Care Unavailable TAMEKA MARSHALL Attending Unavailable ROBERT, VISHAL A Primary Care Unavailable MASCI, SAM A Referring Unavailable KAYE ONEAL Referring Unavailable ROBERT, VISHAL A Primary Care Unavailable KAYE ONEAL Attending Unavailable ROBERT, VISHAL A Primary Care Unavailable REN CHUA Attending Unavailable ROBERT, VISHAL A Primary Care Unavailable CHAPINCITO TOMLIN Attending Unavailable ROBERT, VISHAL A Primary Care Unavailable MIKHAIL LIU JR Referring Unavailable ROBERT, VISHAL A Attending Unavailable ROBERT, VISHAL A Primary Care Unavailable ROBERT, VISHAL A Primary Care Unavailable ROBERT, VISHAL A Primary Care Unavailable CELMENT WERNER Attending Unavailable ROBERT, VISHAL A Primary Care Unavailable CLEMENT WERNER Attending Unavailable ALPHONSO, DAKLEBERUNG Referring Unavailable ROBERT, VISHAL A Primary Care Unavailable MASCI, SAM A Attending Unavailable ROBERT, VISHAL A Primary Care Unavailable MASCI, SAM A Referring Unavailable ROBERT, [...] VISHAL A Primary Care Unavailable MASCI, SAM A Referring Unavailable ROBERT, VISHAL A Primary Care Unavailable ROBERT, VISHAL A Primary Care Unavailable ROBERT, VISHAL A Primary Care Unavailable ROBERT, VISHAL A Attending Unavailable ROBERT, VISHAL A Primary Care Unavailable ROBERT, VISHAL A Primary Care Unavailable CLEMENT WERNER Attending Unavailable MASCI, SAM A Referring Unavailable ROBERT, VISHAL A Primary Care Unavailable MASCI, SAM A Attending Unavailable MARSHALL, TAMEKA Referring Unavailable ROBERT, VISHAL A Primary Care Unavailable MARSHALL, TAMEKA Referring Unavailable ROBERT, VISHAL A Primary Care Unavailable MARSHALL, TAMEKA Referring Unavailable ROBERT, VISHAL A Primary Care Unavailable ROBERT, VISHAL A Attending Unavailable ROBERT, VISHAL A Primary Care Unavailable REN CHUA Referring Unavailable JORDAN NAJERA Attending Unavailable ROBERT, VISHAL A Primary Care Unavailable REN CHUA Attending Unavailable ROBERT, VISHAL A Primary Care Unavailable KNOBLE, REN Referring Unavailable ROBERT, VISHAL A Primary Care Unavailable ROBERT, VISHAL A Primary Care Unavailable ROBERT, VISHAL A Primary Care Unavailable MASCI, SAM A Referring Unavailable ROBERT, VISHAL A Primary Care Unavailable MASCI, SAM A Referring Unavailable ROBERT, VISHAL A Primary Care Unavailable MASCI, SAM A Referring Unavailable CHAPINCITO TOMLIN Referring Unavailable ROBERT, VISHAL A Primary Care Unavailable Medications Current Medications Medication Drug Class(es) Dates Sig (Normalized) Sig (Original) gabapentin 100 mg oral capsule (20 sources) Anti-epileptic Agent Start: 05-07-2023 End: 03-16-2024 take 1 capsule by mouth three times daily gabapentin (NEURONTIN) 100 mg capsule Indications: Nerve pain Take 1 capsule by mouth three times a day for 180 days. 90 capsule 5 09/18/2023 03/16/2024 Active Completed/Discontinued Medications Medication Drug Class(es) Dates Sig (Normalized) Sig (Original) acetaminophen 325 mg / HYDROcodone bitartrate 10 mg oral tablet (20 sources) Opioid Agonist Start: 09-06-2014 End: 01-28-2017 NORCO 10-325 MG TABS as needed as directed HYDROCODONE-ACETAMI WILLY [id number] Earl Huntley MD Problems Active Problems Problem Classification Problem Date Documented Da te Episodic/Chronic Adjustment disorders (20 sources) Reactive depression (situational); Translations: [Adjustment disorder with depressed mood] Onset: 08-17-2019 10-25-2021 Chronic Alcohol-related disorders (3 sources) Alcohol dependence; Translations: [Alcohol dependence with intoxication, uncomplicated] Onset: 10-30-2023 08-26-2023 Chronic Allergic reactions (1 source) Inflammatory [...] (1 source) Fever; Translations: [Fever, unspecified] Episodic Fluid and electrolyte disorders (1 source) Hyperkalemia; Translations: [Hyperkalemia] Episodic Genitourinary symptoms and ill-defined conditions (20 sources) Incontinence; Translations: [Mixed incontinence] Onset: 02-16-2020 02-16-2020 Chronic Genitourinary symptoms and ill-defined conditions (4 sources) Dysuria; Translations: [Dysuria] Onset: 10-27-2023 Episodic Hyperplasia of prostate (20 sources) Benign [...] aftercare (1 source) Polypharmacy ; Translations: [Other fdc (current) drug therapy] 08-26-2023 Episodic Other gastrointestinal disorders (20 sources) Colostomy [...] Episodic Other non-traumatic joint disorders (1 source) Pain in right hip joint; Translations: [Pain in right hip] 10-28-2023 Episodic Other non-traumatic joint disorders (1 source) Pain in right hip; Translations: [Pain of right hip] Onset: 10-29-2023 Episodic Other non-traumatic joint disorders (1 source) Effusion, left elbow; Translations: [Elbow effusion, left] Onset: 08-01-2023 Episodic Other screening for suspected conditions (not mental disorders or infectious disease) (1 source) Computed tomography result abnormal; Translations: [Abnormal findings on diagnostic imaging of other specified body structures] Chronic Other upper respiratory infections (1 source) Viral upper respiratory tract infection; Translations: [Acute upper respiratory infection, unspecified] 05-29-2023 Episodic Residual codes; unclassified (20 sources) Behavior finding; Translations: [Other sleep apnea] Onset: 08-19-2022 Chronic Residual codes; unclassified (2 sources) Insomnia; Translations: [Insomnia, unspecified] Episodic Residual codes; unclassified (1 source) Driving fitness status; Translations: [Other specified personal risk factors, not elsewhere classified] 08-26-2023 Episodic Residual codes; unclassified (8 sources) Alcoholism; Translations: [Alcohol use disorder] Onset: 10-15-2023 10-15-2023 Episodic Secondary malignancies (20 sources) Secondary malignant [...] (4 sources) Long-term drug therapy; Translations: [Other fdc (current) drug therapy] Onset: 04-02-2011 04-02-2011 Urinary tract infections (5 sources) Acute cystitis; Translations: [Acute cystitis with hematuria] Onset: 05-07-2023 Episodic Past or Other Problems Problem Classification Problem [...] [Other abnormal glucose] Onset: 07-30-2018 07-30-2018 Episodic Fracture of upper limb (3 sources) [...] (14 sources) Long-term drug therapy; Translations: [Other exterminator termite (current) drug therapy] Onset: 04-02-2011 02-23-2016 Episodic Other aftercare (20 sources) Patient encounter status; Translations: [Other fdc (current) drug therapy] Onset: 07-11-2021 07-11-2021 Episodic Other connective tissue disease (20 sources) Neuralgia; Translations: [Neuralgia and neuritis, unspecified] Onset: 09-25-2017 09-25-2017 Episodic Other connective tissue disease (20 sources) Cogwheel muscle rigidity; Translations: [Other symptoms and signs involving the musculoskeletal system] Onset: 06-18-2019 08-17-2019 Episodic Other connective tissue disease (20 sources) Recurrent falls ; Translations: [Repeated falls] Onset: 03-25-2022 Episodic Other connective tissue disease (20 sources) [...] cardiovascular examination] Onset: 04-02-2011 Resolved: 02-23-2016 02-23-2016 Results Test Name Value Interpretation Reference Range Facil ity Vital Signs Date Time Vital Sign Value Performing Clinician Facility 10-27-2023 14:13-0500 Body weight 73.94 kg Ren Chua FLOOR LAYER TILE.[employer] Work Phone: [facility] 10-27-2023 14:13-0500 Diastolic blood pressure 68 mm[Hg] Ren Benjamin F[employer]ER [employer] Work Phone: [facility] 10-27-2023 14:13-0500 Heart rate 112 /min Ren Benjamin [employer]ER [employer] Work Phone: [facility] 10-27-2023 14:13-0500 Respiratory rate 16 /min Ren Chua FLO[employer]ER [employer] Work Phone: [facility] 10-27-2023 14:13-0500 Systolic blood pressure 112 mm[Hg] Ren Benjamin [employer]ER [employer] Work Phone: [facility] 08-01-2023 13:19-0500 Body weight 77.56 kg Ren Chua FLOOR [employer]ER [employer] Work Phone: [facility] 08-01-2023 13:19-0500 Diastolic blood pressure 62 mm[Hg] Ren Benjamin [employer]ER [employer] Work Phone: [facility] 08-01-2023 13:19-0500 Heart rate 70 /min Ren Benjamin [employer] Work Phone: [facility] 08-01-2023 13:19-0500 Respiratory rate 14 /min Ren Benjamin [employer] Work Phone: [facility] 08-01-2023 13:19-0500 Systolic blood pressure 118 mm[Hg] Ren Knmarilia [employer] Work Phone: [facility] 05-29-2023 14:26-0400 Body temperature 98.49 [degF] Kassandra Praisler-Wood F[employer] Work Phone: [facility] 05-29-2023 14:26-0400 Body weight 80.74 kg Kassandra Praisler-Wood FLOOR [employer]ER [employer]LE.[employer] Work Phone: [facility] 05-29-2023 14:26-0400 Diastolic blood pressure 66 mm[Hg] Kassandra Praisler-Wood FLO[employer]ER [employer]LE.[employer] Work Phone: [facility] 05-29-2023 14:26-0400 Heart rate 85 /min Kassandra Praisler-Wood FLOOR [employer]ER [employer]LE.[employer] Work Phone: [facility] 05-29-2023 14:26-0400 Respiratory rate 23 /min Kassandra Praisler-Wood FLO[employer]ER [employer]LE.[employer] Work Phone: [facility] 05-29-2023 14:26-0400 SaO2% (BldA) [Mass fraction] 99 % Kassandra Praisler-Wood F[employer]ER [employer]LE.[employer] Work Phone: [facility] 05-29-2023 14:26-0400 Systolic blood pressure 132 mm[Hg] Kassandra Praisler-Wood [employer]ER [employer] Work Phone: [facility] 05-07-2023 18:57-0400 Body temperature 98.29 [degF] Vishal Jones MD Work Phone: [facility] 05-07-2023 18:57-0400 Body weight 79.83 kg Vishal Jones MD Work Phone: [facility] 05-07-2023 18:57-0400 Diastolic blood pressure 72 mm[Hg] Vishal Jones MD Work Phone: [facility] 05-07-2023 18:57-0400 Heart rate 88 /min Vishal Jones MD Work Phone: [facility] 05-07-2023 18:57-0400 Respiratory rate 18 /min Vishal Jones MD Work Phone: [facility] 05-07-2023 18:57-0400 Systolic blood pressure 112 mm[Hg] Vishal Jones MD Work Phone: [facility] 04-01-2023 10:02-0400 Body temperature 97.81 [degF] Sam Greenberg DO Work Phone: [facility] 04-01-2023 10:02-0400 Body weight 82.56 kg Sam Greenberg DO Work Phone: [facility] 04-01-2023 10:02-0400 Diastolic blood pressure 91 mm[Hg] Sam Leei DO Work Phone: [facility] 04-01-2023 10:02-0400 Heart rate 92 /min Sam Leei DO Work Phone: [facility] 04-01-2023 10:02-0400 SaO2% (BldA) [Mass fraction] 97 % Sam Greenberg DO Work Phone: [facility] 04-01-2023 10:02-0400 Systolic blood pressure 154 mm[Hg] Sam Greenberg DO Work Phone: [facility] 03-27-2023 10:32-0400 Diastolic blood pressure 66 mm[Hg] Vishal Jones MD Work Phone: [facility] 03-27-2023 10:32-0400 Systolic blood pressure 132 mm[Hg] Vishal Jones MD Work Phone: [facility] 03-27-2023 09:55-0400 Body weight 83.92 kg Vishal Jones MD Work Phone: [facility] 03-27-2023 09:55-0400 Heart rate 91 /min Vishal Jones MD Work Phone: [facility] 03-27-2023 09:55-0400 Respiratory rate 18 /min Vishal Jones MD Work Phone: [facility] 03-27-2023 09:55-0400 SaO2% (BldA) [Mass fraction] 96 % Vishal Jones MD Work Phone: [facility] 01-15-2023 09:27-0400 Body temperature 98.01 [degF] Clement Werner MD, MD Work Phone: [facility] 01-15-2023 09:27-0400 Body weight 81.19 kg Clement Werner MD, MD Work Phone: [facility] 01-15-2023 09:27-0400 Diastolic blood pressure 81 mm[Hg] Clement Werner MD, MD Work Phone: [facility] 01-15-2023 09:27-0400 Heart rate 89 /min Clement Werner MD, MD Work Phone: [facility] 01-15-2023 09:27-0400 Respiratory rate 16 /min Clement Werner MD, MD Work Phone: [facility] 01-15-2023 09:27-0400 SaO2% (BldA) [Mass fraction] 97 % Clement Werner MD, MD Work Phone: [facility] 01-15-2023 09:27-0400 Systolic blood pressure 147 mm[Hg] Clement Werner MD, MD Work Phone: [facility] 01-01-2023 18:26-0400 Body weight 82.1 kg Vishal Jones MD Work Phone: [facility] 01-01-2023 18:26-0400 Diastolic blood pressure 76 mm[Hg] Vishal Jones MD Work Phone: [facility] 01-01-2023 18:26-0400 Heart rate 82 /min Vishal Jones MD Work Phone: [facility] 01-01-2023 18:26-0400 Respiratory rate 16 /min Vishal Jones MD Work Phone: [facility] 01-01-2023 18:26-0400 Systolic blood pressure 138 mm[Hg] Vishal Jones MD Work Phone: [facility] 12-20-2022 09:59-0400 Body temperature 98.6 [degF] Clement Werner MD, MD Work Phone: [facility] 12-20-2022 09:59-0400 Body weight 83.92 kg Clement Werner MD, MD Work Phone: [facility] 12-20-2022 09:59-0400 Diastolic blood pressure 72 mm[Hg] Clement Werner MD, MD Work Phone: [facility] 12-20-2022 09:59-0400 Heart rate 102 /min Clement Werner MD, MD Work Phone: [facility] 12-20-2022 09:59-0400 Respiratory rate 20 /min Clement Werner MD, MD Work Phone: [facility] 12-20-2022 09:59-0400 SaO2% (BldA) [Mass fraction] 98 % Clement Werner MD, MD Work Phone: [facility] 12-20-2022 09:59-0400 Systolic blood pressure 148 mm[Hg] Clement Werner MD, MD Work Phone: [facility] 11-15-2022 09:16-0500 Body weight 81.19 kg Vishal Jones MD Work Phone: [facility] 11-15-2022 09:16-0500 Diastolic blood pressure 60 mm[Hg] Vishal Jones MD Work Phone: [facility] 11-15-2022 09:16-0500 Heart rate 68 /min Vishal Jones MD Work Phone: [facility] 11-15-2022 09:16-0500 Systolic blood pressure 126 mm[Hg] Vishal Jones MD Work Phone: [facility] 10-21-2022 13:55-0500 Body temperature 99.5 [degF] Mikhail Liu Jr., MD Work Phone: [facility] 10-21-2022 13:55-0500 Body weight 79.11 kg Mikhail Liu Jr., MD Work Phone: [facility] 10-21-2022 13:55-0500 Diastolic blood pressure 64 mm[Hg] Mikhail Liu Jr., MD Work Phone: [facility] 10-21-2022 13:55-0500 Heart rate 87 /min Mikhail Liu Jr., MD Work Phone: [facility] 10-21-2022 13:55-0500 Respiratory rate 16 /min Mikhail Liu Jr., MD Work Phone: [facility] 10-21-2022 13:55-0500 SaO2% (BldA) [Mass fraction] 95 % Mikhail Liu Jr., MD Work Phone: [facility] 10-21-2022 13:55-0500 Systolic blood pressure 110 mm[Hg] Mikhail Liu Jr., MD Work Phone: [facility] 10-09-2022 15:04-0500 Body temperature 99.5 [degF] Vishal Jones MD Work Phone: [facility] 10-09-2022 15:04-0500 Body weight 80.29 kg Vishal Jones MD Work Phone: [facility] 10-09-2022 15:04-0500 Diastolic blood pressure 82 mm[Hg] Vishal Jones MD Work Phone: [facility] 10-09-2022 15:04-0500 Heart rate 88 /min Vishal Jones MD Work Phone: [facility] 10-09-2022 15:04-0500 Respiratory rate 16 /min Vishal Jones MD Work Phone: [facility] 10-09-2022 15:04-0500 Systolic blood pressure 142 mm[Hg] Vishal Jones MD Work Phone: [facility] 09-25-2022 13:23-0500 Body weight 80.74 kg Vishal Jones MD Work Phone: [facility] 09-25-2022 13:23-0500 Diastolic blood pressure 72 mm[Hg] Vishal Jones MD Work Phone: [facility] 09-25-2022 13:23-0500 Respiratory rate 18 /min Vishal Jones MD Work Phone: [facility] 09-25-2022 13:23-0500 Systolic blood pressure 136 mm[Hg] Vishal Jones MD Work Phone: [facility] 09-23-2022 10:14-0500 Body height 167.6 cm BRITTNEE Gonzalez MD Work Phone: [facility] 09-23-2022 10:14-0500 Body weight 79.38 kg BRITTNEE Gonzalez MD Work Phone: [facility] 09-23-2022 10:14-0500 Diastolic blood pressure 58 mm[Hg] BRITTNEE Gonzalez MD Work Phone: [facility] 09-23-2022 10:14-0500 Heart rate 114 /min BRITTNEE Gonzalez MD Work Phone: [facility] 09-23-2022 10:14-0500 Systolic blood pressure 116 mm[Hg] BRITTNEE Gonzalez MD Work Phone: [facility] 08-19-2022 15:27-0500 Body temperature 98.1 [degF] Mikhail Liu Jr., MD Work Phone: [facility] 08-19-2022 15:27-0500 Body weight 78.47 kg Mikhail Liu Jr., MD Work Phone: [facility] 08-19-2022 15:27-0500 Diastolic blood pressure 70 mm[Hg] Mikhail Liu Jr., MD Work Phone: [facility] 08-19-2022 15:27-0500 Heart rate 83 /min Mikhail Liu Jr., MD Work Phone: [facility] 08-19-2022 15:27-0500 Respiratory rate 18 /min Mikhail Liu Jr., MD Work Phone: [facility] 08-19-2022 15:27-0500 SaO2% (BldA) [Mass fraction] 96 % Mikhail Liu Jr., MD Work Phone: [facility] 08-19-2022 15:27-0500 Systolic blood pressure 112 mm[Hg] Mikhail Liu Jr., MD Work Phone: [facility] 07-24-2022 15:03-0500 Body temperature 99.5 [degF] Vishal Jones MD Work Phone: [facility] 07-24-2022 15:03-0500 Body weight 77.56 kg Vishal Jones MD Work Phone: [facility] 07-24-2022 15:03-0500 Diastolic blood pressure 72 mm[Hg] Vishal Jones MD Work Phone: [facility] 07-24-2022 15:03-0500 Heart rate 72 /min Vishal Jones MD Work Phone: [facility] 07-24-2022 15:03-0500 Respiratory rate 18 /min Vishal Jones MD Work Phone: [facility] 07-24-2022 15:03-0500 Systolic blood pressure 130 mm[Hg] Vishal Jones MD Work Phone: [facility] 07-15-2022 12:08-0400 Body temperature 100.71 [degF] Rebecca Rossi APRN.[employer] Work Phone: [facility] 07-15-2022 12:08-0400 Body weight 75.75 kg Rebecca Rossi APRN.[employer] Work Phone: [facility] 07-15-2022 12:08-0400 Diastolic blood pressure 86 mm[Hg] Rebecca Rossi APRN.[employer] Work Phone: [facility] 07-15-2022 12:08-0400 Heart rate 120 /min Rebecca Rossi APRN.[employer] Work Phone: [facility] 07-15-2022 12:08-0400 Respiratory rate 20 /min Rebecca Rossi APRN.[employer] Work Phone: [facility] 07-15-2022 12:08-0400 SaO2% (BldA) [Mass fraction] 96 % Rebecca Rossi APRN.[employer] Work Phone: [facility] 07-15-2022 12:08-0400 Systolic blood pressure 142 mm[Hg] Rebecca Rossi APRN.CNP Work Phone: [facility] 05-15-2022 09:50-0400 Body weight 78.02 kg Vishal Jones MD Work Phone: [facility] 05-15-2022 09:50-0400 Diastolic blood pressure 70 mm[Hg] Vishal Jones MD Work Phone: [facility] 05-15-2022 09:50-0400 Heart rate 68 /min Vishal Jones MD Work Phone: [facility] 05-15-2022 09:50-0400 Respiratory rate 14 /min Vishal Jones MD Work Phone: [facility] 05-15-2022 09:50-0400 Systolic blood pressure 120 mm[Hg] Vishal Jones MD Work Phone: [facility] 03-26-2022 08:42-0400 Body height 169.5 cm Kaye Oneal DO Work Phone: [facility] 03-26-2022 08:42-0400 Body weight 77.56 kg Kaye Oneal DO Work Phone: [facility] 03-26-2022 08:42-0400 Diastolic blood pressure 71 mm[Hg] Kaye Oneal DO Work Phone: [facility] 03-26-2022 08:42-0400 Heart rate 82 /min Kaye Oneal DO Work Phone: [facility] 03-26-2022 08:42-0400 SaO2% (BldA) [Mass fraction] 98 % Kaye Oneal DO Work Phone: [facility] 03-26-2022 08:42-0400 Systolic blood pressure 132 mm[Hg] Kaye Oneal DO Work Phone: [facility] 03-25-2022 09:33-0400 Body weight 77.47 kg BRITTNEE Gonzalez MD Work Phone: [facility] 03-25-2022 09:33-0400 Diastolic blood pressure 60 mm[Hg] BRITTNEE Gonzalez MD Work Phone: [facility] 03-25-2022 09:33-0400 Heart rate 70 /min BRITTNEE Gonzalez MD Work Phone: [facility] 03-25-2022 09:33-0400 SaO2% (BldA) [Mass fraction] 98 % BRITTNEE Gonzalez MD Work Phone: [facility] 03-25-2022 09:33-0400 Systolic blood pressure 108 mm[Hg] BRITTNEE Gonzalez MD Work Phone: [facility] 03-21-2022 08:16-0400 Body temperature 98.91 [degF] Nisland Marshall FLOOR LAYER [employer]LE.[employer] Work Phone: [facility] 03-21-2022 08:16-0400 Body weight 79.61 kg Nisland Marshall FLOOR L[employer]ER [employer]LE.[employer] Work Phone: [facility] 03-21-2022 08:16-0400 Diastolic blood pressure 70 mm[Hg] Tameka Marshall FLOOR LAYER [employer]LE.[employer] Work Phone: [facility] 03-21-2022 08:16-0400 Heart rate 81 /min Tameka Marshall FLOOR LAYER [employer]LE.[employer] Work Phone: [facility] 03-21-2022 08:16-0400 Systolic blood pressure 132 mm[Hg] Nisland Marshall FLO[employer]ER [employer]LE[employer] Work Phone: [facility] 12-14-2021 09:09-0400 Body temperature 97.9 [degF] Sharda WALLIS-C Work Phone: [facility] 12-14-2021 09:09-0400 Body weight 78.93 kg Sharda WALLIS-C Work Phone: [facility] 12-14-2021 09:09-0400 Diastolic blood pressure 62 mm[Hg] Sharda WALLIS-C Work Phone: [facility] 12-14-2021 09:09-0400 Heart rate 80 /min Sharda WALLIS-C Work Phone: [facility] 12-14-2021 09:09-0400 Respiratory rate 18 /min Sharda Carl PA-C Work Phone: [facility] 12-14-2021 09:09-0400 Systolic blood pressure 110 mm[Hg] Sharda Carl PA-C Work Phone: [facility] 12-08-2021 08:53-0400 Body weight 78.93 kg Vishal Jones MD Work Phone: [facility] 12-08-2021 08:53-0400 Diastolic blood pressure 66 mm[Hg] Vishal Jones MD Work Phone: [facility] 12-08-2021 08:53-0400 Heart rate 78 /min Vishal Jones MD Work Phone: [facility] 12-08-2021 08:53-0400 Respiratory rate 14 /min Vishal Jones MD Work Phone: [facility] 12-08-2021 08:53-0400 Systolic blood pressure 132 mm[Hg] Vishal Jones MD Work Phone: [facility] 08-05-2017 13:14-0500 BMI (Body Mass Index) 26.31 kg/m2 Marcelacullen Villa [facility] Work Phone: 08-05-2017 13:14-0500 Body weight 76.2 kg Nikolay Allen [facility] Work Phone: 08-05-2017 13:14-0500 BP Diastolic 58 mm[Hg] Nikolay Allen [facility] Work Phone: 08-05-2017 13:14-0500 BP Systolic 104 mm[Hg] Nikolay Allen [facility] Work Phone: 08-05-2017 13:14-0500 Height 170.18 cm Nikolay Allen [facility] Work Phone: 08-05-2017 13:14-0500 Pulse (Heart Rate) 72 /min [facility] Work Phone: 08-05-2017 13:14-0500 Respiratory Rate 20 /min [facility] Work Phone: 08-05-2017 13:14-0500 Weight 76.2 kg [facility] Work Phone: 01-28-2017 10:26-0400 Body height 170.18 cm Ann-Marie Fox Work Phone: [facility] Work Phone: 01-28-2017 10:26-0400 Body mass index (BMI) [Ratio] 26.54 kg/m2 Ann-Marie Fox Work Phone: [facility] Work Phone: 01-28-2017 10:26-0400 Body weight 76.89 kg Ann-Marie Fox Work Phone: [facility] Work Phone: 01-28-2017 10:26-0400 Diastolic blood pressure 50 mm[Hg] Ann-Marie Fox Work Phone: [facility] Work Phone: 01-28-2017 10:26-0400 Heart rate 64 /min Ann-Marie Fox Work Phone: [facility] Work Phone: 01-28-2017 10:26-0400 Respiratory rate 20 /min Ann-Marie Fox Work Phone: [facility] Work Phone: 01-28-2017 10:26-0400 Systolic blood pressure 100 mm[Hg] Ann-Marie Fox Work Phone: [facility] Work Phone: 01-28-2017 10:26-0400 Weight 76.89 kg Asha Jackson RN [facility] Work Phone: 07-25-2016 10:04-0500 Body mass index (BMI) [Ratio] 27.72 kg/m2 [facility] Work Phone: 07-25-2016 10:04-0500 Body surface area Derived from formula 1.92 m2 [facility] Work Phone: 07-25-2016 10:04-0500 Body weight 80.29 kg ELIE Garcia [facility] Work Phone: 07-25-2016 10:04-0500 Diastolic blood pressure 70 mm[Hg] ELIE Garcia [facility] Work Phone: 07-25-2016 10:04-0500 Heart rate 60 /min ELIE Garcia [facility] Work Phone: 07-25-2016 10:04-0500 Respiratory rate 20 /min [facility] Work Phone: 07-25-2016 10:04-0500 Systolic blood pressure 126 mm[Hg] [facility] Work Phone: 05-18-2014 09:29-0400 Body temperature 99 [degF] [facility] Work Phone: 03-08-2014 11:48-0400 Body height 170.18 cm Angélica Roger RN [facility] Work Phone: Encounters Encounter Date Encounter Type Care Provider Facility Start: 11-07-2023 Telephone encounter Vishal Jones MD Work Phone: [facility] Procedures Date Procedure Procedure Detail Performing Clinician Start: 10-27-2023 Urnls dip stick/tabl et rgnt auto w/o microscopy Ren Chua APRN.CNP Work Phone: Start: 07-09-2023 Ct abdomen & pelvis w/contrast material Sam Greenberg DO Work Phone: Start: 07-09-2023 Ct thorax w/contrast material Sam Greenberg DO Work Phone: Start: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 representative has been informed of the risks and benefits of -- and alternatives to -- treatment through a remote evaluation and consents to proceed with the evaluation remotely. Date: August 26, 2023 Patient Name: Sam Hagen [facility] was asked by Dr. Liu to evaluate Sam Hagen. Our recommendations of care will be communicated by shared medical record. Reason for Evaluation/Chief complaint: dementia of unknown etiology Accompanied by: Friend (Lala) who lives with Sam. SUBJECTIVE: HPI: Mr. Sam Hagen is a 83 year old left handed male who presents to the [facility] for an initial evaluation. Patient has been seen and referred by Dr. Mikhail Liu Jr. Patient has a pertinent PMHx significant for rectal cancer, H/o CAD ([place] 1993; treated with PCI balloon angioplasty; no [...] place (HCC) 09/25/2017 Coronary artery disease involving false pass coronary artery 09/25/[address] Siddiqui [id number] DDD (degenerative disc disease), lumbar 12/14/2021 Dementia without behavioral disturbance ([facility]) Seeing Dr Liu Elevated hemoglobin A1c 07/30/2018 Essential hypertension 04/02/2011 Essential tremor 08/16/2019 SALAS (generalized anxiety disorder) 01/01/2023 Generalized weakness 06/18/2019 H/O heart artery stent 09/25/2017 4 stents 1993 History of DVT (deep vein thrombosis) 09/25/2017 1st clot end of Aug 2017, started on Eliquis 09/15/2017 needs to be on till 03/15/2018 S/P colectomy History of [place] (myocardial infarction) 1993 History of prostate cancer [...] Paroxysmal atrial fibrillation (HCC) s/p colectomy 2016. Watch [facility] Dr. Huntley-LAst visit 01/2019 Personal history of [...] Cancer Father Cancer Father skin Heart Mother [place] late 50's Stroke Mother Diabetes Mother No [...] obvious thyromegaly or adenopathy. Neuro: Mental Status: [place] Cognitive Assessment (MoCA) Today MoCA was not performed. MoCA was at Dr. Liu's office: MODIFIED MOCA: Cube copy: 0/1 Clock Draw: Incorrectly places large hand. 2/3 Namin/3 Immediate Recall: 5/5 Number repeat: (Incorrect reverse (changes number) 12 Sentence repeat: 2 Serial 7s: [id number] 3/3 Similar objects (I.e. banana and orange) 10/17 Orientation: 06/24/22, [place], Friday, 02/18 Delayed recall: 10/20 Cranial Nerves: CN III, CN IV, CN : EOMI CN VII: Face symmetric, no ptosis or facial droop LABS/DATA: Hemoglobin A1C Date Value Ref Range Status 03/27/2023 6.0 (H) 4.3 - 5.6 % Final Comment: [place] Diabetes [employer] guidelines indicate that patients with [...] seen by General Neurology. Modified MoCA was 21. Unclear if neurodegenerative condition. Multiple factors are [...] which included preparing to see the patient, [id number] patient care, completing clinical documentation, obtaining and/or reviewing separately obtained history, performing a medically appropriate examination, counseling and educating the patient/family/caregiver, ordering medications, tests, or procedures, and communicating with other HCPs (not separately reported). Voice recognition software was used to compose this office note. Please excuse any unintended typographical errors Chapincito Tomlin MD [facility] 08/26/2023 7:07 AM CC: Referring Physician: Mikhail Liu [address] [facility] [address] [facility] [id number] PCP: Vishal Jones [address] [place] [address] Patient Entered Data: Patient-Reported No flowsheet data [...] flowsheet data found. documented in this encounter [facility] 08-01-2023 Note [facility] 08-01-2023 History of Present illness Narrative Chief [...] side 60-80% R side 40-60%. Consult to [facility] Bladder stone 09/25/[address] [...] and hd a partial cystectomy. Colostomy care ([facility]) 09/25/[address] ([facility]) 09/25/2017 Coronary artery disease involving false pass coronary artery 09/25/[address] Siddiqui [id number] DDD (degenerative disc disease), lumbar 12/14/2021 Dementia without behavioral disturbance ([facility]) Seeing Dr Liu Elevated hemoglobin A1c 07/30/2018 Essential hypertension 04/02/2011 Essential tremor 08/16/2019 SALAS (generalized anxiety disorder) 01/01/2023 Generalized weakness 06/18/2019 H/O heart artery stent 09/25/2017 4 stents 1993 History of DVT (deep vein thrombosis) 09/25/2017 1st clot end of Aug 2017, started on Eliquis 09/15/2017 needs to be on till 03/15/2018 S/P colectomy History of [place] (myocardial infarction) 1993 History of prostate cancer seeing Dr. White Hyperlipidemia, mixed 09/25/[address] ([facility]) 06/13/2021 Living will on file at physician's [...] Paroxysmal atrial fibrillation (HCC) s/p colectomy 2016. Watch [facility] Dr. Huntley-LAst visit 01/2019 Personal history of [...] Cancer Father Cancer Father skin Heart Mother [place] late 50's Stroke Mother Diabetes Mother Patient [...] done Influenza Vaccine(1) due on 05/16/2023 Covid-19 Vaccine(5 - 2022-24 season) due on 05/16/2023 LDL Cholesterol due [...] 150 MG TABLET,12 HR SUSTAINED-RELEASE Ren Chua APRN.BAKER DOUGHNUT documented in this encounter [facility] 07-29-2023 Note [facility] 07-24-2023 Note [facility] 07-18-2023 Miscellaneous Notes Form faxed from [facility] Alejandra Farmer Ma Forms printed and given to provider Alejandra Farmer Ma Patient's significant other, Lala calling to say the DME patient will be using for ostomy supplies is [employer]. . This company may contact PCP office. Kiki Mas RN documented in this encounter [facility] 07-16-2023 Miscellaneous Notes Spoke with patient's daughter, Rita. Given message from provider's office. She verbalizes understanding. Kiki Mas RN Left message for daughter. Letter taken to medical records. Please see Dr. Jones's message below regarding guardianship. Also daughter needs to bring in copies of the POA so we have in the chart. Sylvia Rossi MA Let daughter know the letter regarding her dad having the diagnosis of dementia is ready for bulk picker. For guardianship she needs to go through the courts. I would suggest she talk with the tray room worker representing her father. Patient daughter Rita calling back and she is needing help, she wants to get guardianship over her father. She said he was in the ER for an hour and Dr discharged him home. She knows father will put up a fight and not go into correction. She said he is still driving his car and he was charged in court today, he asked for tray room worker, daughter said has continuance. Daughter said it is just getting to be more of a mess to handle. Patient daughter Rita Albert calling she had her father in [facility] ER Friday (07/11)and was released. Daughter said father has court hearing this morning for violating a restraining order, she needs note saying he has dementia. She said she may have to admit him to correction, having issues with father's girl friend concerning money and check book. Please advise documented in this encounter [facility] 07-14-2023 Note HNO ID: [id number] Author: Yeni Moore Ma Service: ? Author Type: ? Type: Progress Notes Filed: 07/14/2023 9:29 PM Note Text: Scan on 07/11/2023 10:43 PM by ProviderKvng PA-C: Consultation - Emergency Medicine [facility] 07-14-2023 History of Present illness Narrative Scan on 07/11/2023 10:43 PM by Kvng Dalal PA-C: Consultation - Emergency Medicine documented in this encounter [facility] 07-09-2023 Note [facility] 07-09-2023 History of Present illness Narrative Radiology [...] PERIPHERAL IV DATA: power port accessed by [employer]ell[employer] SIGNED BY: RT Arturo(Ever) July 09, 2023 4:04 PM documented in this encounter [facility] 06-30-2023 Miscellaneous Notes See TE dated 06/30/23. Olamide Verdin LPN Daughter/POARita, returned call from Dr. Liu office. Given message in previous encounter. Rita agreeable for patient to see [employer]. States she has to do something as she doesn't want him to hurt someone or himself. Please place referral and call her to schedule appt. Today Rita can be reached at [phone] Tomorrow can be reached at [phone] documented in this encounter [facility] 06-30-2023 Miscellaneous Notes Phone call placed [...] Yaz Michaels RN documented in this encounter [facility] 06-26-2023 Miscellaneous Notes Daughter returned call [...] appt. It may be time to consider exterminator termite placement in a SNF with a dementia [...] Asha Frank LPN documented in this encounter [facility] 06-06-2023 Miscellaneous Notes TC to Rita, spoke briefly and notified Rita that concerns need to be addressed with Neuro. Call was dropped d/t cell electrical solderer. Regarding driving privilege's- Neuro revoked privilege's so again- Rita needs to speak with Neurology about behaviors, driving, etc. Juan Kimball LPN Please advise daughter that this questions and concerns should be addressed with Sam's neurologist. Also she should call the risk lead. Per Dr. Liu's last office note Sam was informed he should not be driving. He may need admitted to local hospital for a Geripsych consult. Patient's daughter calls and states that they have taken away patient's keys so that patient could not drive. Patient found keys where they were hidden and took keys and drove off giving sales professional bilingual the bird stating f you and if [...] Dr. Jones can give her a call [phone]. Please review and advise, Nora Berry RN documented in this encounter [facility] 06-03-2023 Miscellaneous Notes Spoke with pt [...] daily at bedtime. documented in this encounter [facility] 05-29-2023 Note [facility] 05-29-2023 Instructions Kassandra Grady APRN.BAKER DOUGHNUT - 05/29/2023 2:58 PM EDT ASSESSMENT/PLAN: 1. [...] FLU A/B + RSV E Bijan [employer] LENS MOUNTER Student TEACHING PROVIDER (Physician/PA/FLOOR LAYER TILE) NOTE OF PERSONAL INVOLVEMENT IN CARE: I have personally seen and examined the patient and performed the medical decision-making components. I have reviewed the Advanced Practice Registered Nurse (FLOOR LAYER TILE) Student's documentation and verified the findings in the note as written. Any additions or changes are noted in bold/italics. Signature: Kassandra Grady Date: 05/29/2023 Time: 2:58 PM documented in this encounter [facility] 05-29-2023 History of Present illness Narrative This note was created using [employer]. Subjective Sam Hagen is a 83 year [...] side 60-80% R side 40-60%. Consult to vas Bladder stone 09/25/[address] Bagley BPH [...] place (HCC) 09/25/2017 Coronary artery disease involving false pass coronary artery 09/25/[address] Siddiqui [id number] DDD (degenerative disc disease), lumbar 12/14/2021 Dementia [...] on till 03/15/2018 S/P colectomy History of [place] (myocardial infarction) 1993 History of prostate cancer [...] Paroxysmal atrial fibrillation (HCC) s/p colectomy 2016. Watch [facility] Dr. Huntley-LAst visit 01/2019 Personal history of [...] Cancer Father Cancer Father skin Heart Mother [place] late 50's Stroke Mother Diabetes Mother Social [...] FLU A/B + RSV E Bijan [employer] Student TEACHING PROVIDER (Physician/PA/FLOOR LAYER TILE) NOTE OF PERSONAL INVOLVEMENT IN CARE: I have personally seen and examined the patient and performed the medical decision-making components. I have reviewed the Advanced Practice Registered Nurse (FLOOR LAYER TILE) Student's documentation and verified the findings in the note as written. Any additions or changes are noted in bold/italics. Signature: Kassandra Grady Date: 05/29/2023 Time: 2:58 PM documented in this encounter [facility] 05-20-2023 Note [facility] 05-20-2023 History of Present illness Narrative Patient's home health 485 form / care plan for certification period 05/08/2023 to 07/06/2023 reviewed and signed. Relevant medical records were reviewed. Changes were communicated to home health agency documented in this encounter [facility] 05-20-2023 Miscellaneous Notes Info noted. Zenaida from [facility] Home Health calling with OT plan of care, 2 visits weekly for 3 weeks working on fall prevention and balance training. This is delay of care since she had been on vacation. No return call is needed. documented in this encounter [facility] 05-16-2023 Miscellaneous Notes Peggy called and [...] Provider: VISHAL JONES Ordering User: JONNA SUN APRN.CNP Peggy calling from [facility] to report plan of care for patient and prison will visit patient 1 time a week for 3 weeks. half-way will work with patient on medication management. Patient c/o burning and urine is dark. Ok to collect urine for analysis? Please review and Advise, Nora Berry RN documented in this encounter [facility] 05-13-2023 Miscellaneous Notes Opened in Error documented in this encounter [facility] 05-13-2023 Miscellaneous Notes Noted. Rosie speech therapist from [facility] HH calling with update on pt. States she will be seeing patient 1x per week for 4 weeks for family dementia education. Barbara Olivares, RN documented in this encounter [facility] 05-12-2023 Miscellaneous Notes Spoke with patient's daughter. Given message from provider's office. She verbalizes understanding. Kiki Mas RN Left a detailed message for Daughter to call the office and ask to speak to a nurse. Tami Cotto LPN Let caregiver know Sam's nitroglycerin comes from [facility]. The following approved medication requests [...] for 180 days. Decreased per hospitalist at [facility] due to acute encephalopathy felt to be from [facility] pharmacy. nitroglycerin sublingual (NITROQUICK) 0.4 mg SL tablet 25 tablet 1 Sig: Q5M Please review and advise. Shannon Gleason documented in this encounter [facility] 05-09-2023 Miscellaneous Notes Called and left detailed message on Pallavi identifiable VM with responses below from Provider. Notified Shannon that Rx has been sent to [facility]. If questions she is to call office and speak with Triage Nurse. aRdha Ramirez Ma Let shannon know I'm ok with prison and networker consults. Also I sent in a script for the lipitor. I'm hesitant to restart the atenolol. It looks like he has probably been off it for the past 6 months and his BP in the office recently was 112/72. I would want nursing to monitor and up date me in a week or two. Shannon with [facility] PT calling and requesting Residential and Dressing Machine Operator orders for patient. Please call Shannon back at [phone] with reply. Shannon states she notes 3 medications on pt's [...] Meka Capps RN documented in this encounter [facility] 05-08-2023 Note HNO ID: [id number] Author: Yoko Osborn RN Service: ? Author Type: Registered Nurse Type: Progress Notes Filed: 05/08/2023 11:02 AM Note Text: no show. [facility] 05-08-2023 History of Present illness Narrative no show. documented in this encounter [facility] 05-07-2023 Note [facility] 05-07-2023 Instructions Vishal Jones MD - 05/07/2023 [...] day for anxiety. Patient needs to contact [facility] to virgilio a follow up appt with Niranjan Tony for his fractured elbow. Call [phone]. documented in this encounter [facility] 05-07-2023 History of Present illness Narrative Chief Complaint Patient presents with: Hospital F/U HPI Sam Hagen is a 83 year old male who presents here today for hospital follow up. Office visit - hospital follow up Patient was admitted to [facility] on 04/17/2023 after a fall. C/o multiple [...] not to drive. Is to be getting [facility] through [facility]. Says he has not heard from them [...] and hd a partial cystectomy. Colostomy care ([facility]) 09/25/[address] ([facility]) 09/25/2017 Coronary artery disease involving false pass coronary artery 09/25/[address] Siddiqui [id number] DDD (degenerative disc disease), lumbar 12/14/2021 Dementia without behavioral disturbance ([facility]) Seeing Dr Liu Elevated hemoglobin A1c 07/30/2018 Essential hypertension 04/02/2011 Essential tremor 08/16/2019 SALAS (generalized anxiety disorder) 01/01/2023 Generalized weakness 06/18/2019 H/O heart artery stent 09/25/2017 4 stents 1993 History of DVT (deep vein thrombosis) 09/25/2017 1st clot end of Aug 2017, started on Eliquis 09/15/2017 needs to be on till 03/15/2018 S/P colectomy History of [place] (myocardial infarction) 1993 History of prostate cancer seeing Dr. White Hyperlipidemia, mixed 09/25/[address] ([facility]) 06/13/2021 Living will on file at physician's [...] Paroxysmal atrial fibrillation (HCC) s/p colectomy 2016. Watch [facility] Dr. Huntley-LAst visit 01/2019 Personal history of [...] Cancer Father Cancer Father skin Heart Mother [place] late 50's Stroke Mother Diabetes Mother Patient [...] which included preparing to see the patient, [id number] patient care, completing clinical documentation, performing a medically appropriate examination, counseling and educating the patient/family/caregiver and ordering medications, tests, or procedures. Vishal Jones MD documented in this encounter [facility] 05-06-2023 Miscellaneous Notes Left detailed message for [facility] Ting. Sylvia Rossi MA Let [facility] know I will follow and sign orders. Ok with delayed start. Ting from [facility] Home Health calling received orders for PT/OT/Speech for patient. Discharged 05/05 from [facility] TCU, falls, fractured left ulna. Asking if PCP would follow patient and sign orders? Asking for delay of care verbal order due to patient having follow up appt scheduled with PCP for 05/07, can not have visit with home health same day with insurance billing. Can not start care until or Friday with the patient. Please advise documented in this encounter [facility] 04-23-2023 Note HNO ID: [id number] Author: Tika Kearney LPN Service: ? Author Type: ? Type: Progress Notes Filed: 04/23/2023 3:22 PM Note Text: Scan on 04/23/2023 11:50 AM by Kvng Dalal PA-C [facility] 04-23-2023 History of Present illness Narrative Scan on 04/23/2023 11:50 AM by Kvng Dalal PA-C documented in this encounter [facility] 04-18-2023 Note [facility] 04-18-2023 History of Present illness Narrative ER/H&P Scan on 04/17/2023 6:48 PM by Kvng Dalal PA-C: Consultation - Emergency Medicine Scan on 04/17/2023 4:09 PM by Kvng Dalal PA-C documented in this encounter [facility] 04-17-2023 Note [facility] 04-17-2023 History of Present illness Narrative Scan on 04/17/2023 11:20 AM by ProviderKvng PA-C: X-ray Scan on 04/17/2023 11:18 AM by ProviderKvng PA-C: CT Scan Scan on 04/17/2023 1:22 PM by ProviderKvng PA-C: Ultrasound Scan on 04/17/2023 11:21 AM by ProviderKvng PA-C: X-ray documented in this encounter [facility] 04-17-2023 Note [facility] 04-02-2023 Miscellaneous Notes Noted. Spoke with pt [...] urine looks clear? documented in this encounter [facility] 04-02-2023 Miscellaneous Notes spoke with pts. Daughter, given information. Shreya Rita Drouhard, HEL[employer] COIL WINDER Left message on daughters Vm (unidentified VM0 [...] Please advise daughter. documented in this encounter [facility] 04-01-2023 Note [facility] 04-01-2023 History of Present illness Narrative HPI: Sam Curry Hagen is a 82 year old male who presents here today for follow up rectal cancer. H/o CAD ([place] 1993; treated with PCI balloon angioplasty; no stent) and prostate cancer (tx with radiation x44 fx ~8 years ago). He presented to [facility] fall 2016 with symptoms of bowel obstruction. He underwent attempted colonoscopy but the procedure was aborted when the scope was not able to be passed through the rectum/sigmoid area. He was transferred to [facility]. He ultimately underwent a total colectomy [...] the patient underwent total colectomy in 2017 ([id number]). Colon and Rectum Cancer Case Summary Procedure: [...] down the thigh. He sees a chronic appliance painter and refinisher. Denies fevers or recent illness. Resp:denies cough [...] which included preparing to see the patient, mgkw-wv-bllg patient care, completing clinical documentation, obtaining and/or reviewing separately obtained history, performing a medically appropriate examination, counseling and educating the patient/family/caregiver, ordering medications, tests, or procedures, communicating with other HCPs (not separately reported), independently interpreting results (not separately reported), and communicating results to the patient/family/caregiver. Sam Greenberg DO documented in this encounter [facility] 03-27-2023 Note [facility] 03-27-2023 Instructions Vishal Jones MD - 03/27/2023 10:45 AM EDT Let your daughter know she should go to your appt with Dr. Liu tomorrow. Also it appears Dr. Liu placed a referral to see a neurosurgeon back in November/December and it was never set up by your daughter, though not sure she was aware. documented in this encounter [facility] 03-27-2023 Miscellaneous Notes Recommend formal neuro [...] an official letter from her Dad's legal [employer] with what they are specifically asking. Contacted [...] issues Please fax to Rita (daughter) at: [phone] documented in this encounter [facility] 03-27-2023 History of Present illness Narrative Medicare Yearly Visit Medical B eligibilty date 03/15/17 Date of last exam 03/14/22 PAST MEDICAL HISTORY PAST MEDICAL HISTORY Diagnosis Date A-fib (FORM[facility]LY [facility]) s/p colectomy 2016. Watch [facility] Dr. 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 Bagley BPH with obstruction/lower urinary tract symptoms BPH with obstruction/lower urinary tract symptoms Dr. Hendrix Chronic midline back pain 10/20/2017 Cog-wheel rigidity 06/18/2019 left upper extrmity, right upper extremity lead piping Cognitive impairment, mild, so stated 06/18/2019 Colon cancer (FORM[facility]) 06/30/[address] Greenberg, Had extension into the bladder wall and hd a partial cystectomy. Colostomy care (FORM[facility]LY [facility]) 09/25/[address] (FORM[facility]) 09/25/2017 Coronary artery disease involving false pass coronary artery 09/25/[address] Huntley-Hugo [id number] Elevated hemoglobin A1c 07/30/2018 Essential hypertension 04/02/2011 Essential tremor 08/16/2019 Generalized weakness 06/18/2019 H/O heart artery stent 09/25/2017 4 stents 1993 History of DVT (deep vein thrombosis) 09/25/2017 1st clot end of Aug 2017, started on Eliquis 09/15/2017 needs to be on till 03/15/2018 S/P colectomy History of [place] (myocardial infarction) 1993 History of prostate cancer [...] Cancer Father Cancer Father skin Heart Mother [place] late 50's Stroke Mother Diabetes Mother SOCIAL [...] Dr. Huntley: Cardiology Dr. White: Urology Dr. Masci: Oncology gen surg Dr. Tena: Pain specialist [...] of the brain and lumbar spine. MRI Ken showed no acute issues but sever generalized [...] and has been seeing Dr. Lacy's at [facility] and he wants to take him [...] follow up 11/15/2022 Patient was seen in [facility] ER on 10/31/2022 after a fall on [...] History PAST MEDICAL HISTORY Diagnosis Date A-fib (FORM[facility]) s/p colectomy 2016. Watch Crystal [facility] Dr. Huntley-LAst visit 01/2019 Arthritis of right [...] impairment, mild, so stated 06/18/2019 Colon cancer (FORM[facility]) 06/30/[address] Greenberg, Had extension into the bladder wall and hd a partial cystectomy. Colostomy care (FORM[facility]) 09/25/[address] (HCC) 09/25/2017 Coronary artery disease involving false pass coronary artery 09/25/[address] Siddiqui [id number] DDD (degenerative disc disease), lumbar 12/14/2021 Elevated hemoglobin A1c 07/30/2018 Essential hypertension 04/02/2011 Essential tremor 08/16/2019 SALAS (generalized anxiety disorder) 01/01/2023 Generalized weakness 06/18/2019 H/O heart artery stent 09/25/2017 4 stents 1993 History of DVT (deep vein thrombosis) 09/25/2017 1st clot end of Aug 2017, started on Eliquis 09/15/2017 needs to be on till 03/15/2018 S/P colectomy History of [place] (myocardial infarction) 1993 History of prostate cancer seeing Dr. White Hyperlipidemia, mixed 09/25/[address] ([facility]) 06/13/2021 Living will on file at physician's office 09/25/2022 DPA: Roseanne Albert, (daughter) Malignant neoplasm of ascending colon (FORM[facility]) 07/29/2017 Malignant neoplasm of sigmoid colon (HCC) 07/29/2017 Medicare annual wellness visit, subsequent 07/30/2018 Medicare part B: 03/15/2017 last done: 08/17/2019 Mixed incontinence 02/16/2020 Nerve pain 09/25/2017 Right side hip and up the spine Parastomal hernia without obstruction or gangrene Personal history of colon cancer 12/18/2020 Primary insomnia 01/02/2021 Rectal cancer (FORM[facility]) 10/12/2019 S/P total colectomy 07/16/2017 Secondary malignant [...] Cancer Father Cancer Father skin Heart Mother [place] late 50's Stroke Mother Diabetes Mother Patient [...] Lymph 1.00 - 4.00 k/uL 0.87 (L) [place]% % 8.7 Abs [place] <0.87 k/uL 0.48 Eosin% % 1.5 Abs [...] per cardio 6. Coronary artery disease involving false pass coronary artery of false pass heart without angina pectoris - ICD9: 414.01, [...] which included preparing to see the patient, lnni-zr-[id number] patient care, completing clinical documentation, performing a medically appropriate examination, counseling and educating the patient/family/caregiver and ordering medications, tests, or procedures. Vishal Jones MD documented in this encounter [facility] 03-10-2023 Note [facility] 03-10-2023 History of Present illness Narrative Radiology [...] PERIPHERAL IV DATA: power port accessed by Intell[employer] SIGNED BY: RT Arturo(R) March 10, 2023 1:49 PM documented in this encounter [facility] 03-10-2023 Note [facility] 03-10-2023 History of Present illness Narrative Patient is here for IVAD port flush per Nursing Repton protocol. IVAD is located in right upper chest. Site cleansed with Chloraprep IVAD accessed with a #20 gauge 3/4 non-coring Gripper needle Blood Return: Good Flushed with: 20 ml Normal Saline Non-coring needle left intact for CT. Opsite applied to puncture site. Port site negative for redness, edema or tenderness. Patient tolerated procedure well. documented in this encounter [facility] 02-25-2023 Note [facility] 02-21-2023 Miscellaneous Notes Spoke with patient and rescheduled as requested. Planning to move Dr. Greenberg's 8:30 pt. on 02/25 to ut at 8a.m. on 02/26. Sam will then be put in the [address] Greenberg's schedule at 8:30 on 02/25. Spoke with Fany regarding the above. Tameka Marshall APRN.BAKER DOUGHNUT Dr Alphonso English wanted you to know that Sam is done with radiation and he will need follow up appointment with you. documented in this encounter [facility] 02-19-2023 Note [facility] 01-28-2023 Note HNO ID: [id number] Author: Natalia Lopez LPN Service: ? Author Type: ? Type: Progress Notes Filed: 01/28/2023 11:23 AM Note Text: Scan on 01/28/2023 9:41 AM by External Provider, PARuthannC: Consultation - Cardiology [facility] 01-23-2023 Note [facility] 01-23-2023 History of Present illness Narrative SAM HAGEN [id number] : 1940 01/23/2023 [facility] Department of Radiation Oncology RADIATION ONCOLOGY [...] PM Electronically Signed cc: Vishal Jones [address] [place] [address] Sam Greenberg [address] [facility] [id number] documented in this encounter [facility] 01-15-2023 Note [facility] 01-15-2023 History of Present illness Narrative Radiation [...] Clement Werner MD documented in this encounter [facility] 01-15-2023 Nurse Note Radiation Therapy - Nursing Note (OTV) PATIENT NAME: Sam Hagen PATIENT January 15, 2023 [facility] FACILITY/LOCATION: [place] NURSING NOTE TYPE: left iliac node Subjective Data No c/o Additional Data Do you want to see a Director Of Digital Technology? No Status: Patient is male Stress Scale: [...] Nikole Lamb RN documented in this encounter [facility] 01-02-2023 Miscellaneous Notes TC placed to [...] 2023 7:37 PM documented in this encounter [facility] 01-01-2023 Note [facility] 01-01-2023 History of Present illness Narrative Chief [...] and has been seeing Dr. Lacy's at [facility] and he wants to take him [...] follow up 11/15/2022 Patient was seen in [facility] ER on 10/31/2022 after a fall on [...] History PAST MEDICAL HISTORY Diagnosis Date A-fib (FORM[facility]) s/p colectomy 2016. Watch [facility] Dr. Huntley-LAst visit 01/2019 Arthritis of right [...] impairment, mild, so stated 06/18/2019 Colon cancer ([facility]) 06/30/[address] Greenberg, Had extension into the bladder wall and hd a partial cystectomy. Colostomy care (FORM[facility]) 09/25/[address] ([facility]) 09/25/2017 Coronary artery disease involving false pass coronary artery 09/25/[address] Huntley-Hugo [id number] DDD (degenerative disc disease), lumbar 12/14/2021 Elevated hemoglobin A1c 07/30/2018 Essential hypertension 04/02/2011 Essential tremor 08/16/2019 Generalized weakness 06/18/2019 H/O heart artery stent 09/25/2017 4 stents 1993 History of DVT (deep vein thrombosis) 09/25/2017 1st clot end of Aug 2017, started on Eliquis 09/15/2017 needs to be on till 03/15/2018 S/P colectomy History of [place] (myocardial infarction) 1993 History of prostate cancer seeing Dr. White Hyperlipidemia, mixed 09/25/[address] ([facility]) 06/13/2021 Living will on file at physician's office 09/25/2022 DPA: Roseanne Albert, (daughter) Malignant neoplasm of ascending colon ([facility]) 07/29/2017 Malignant neoplasm of sigmoid colon ([facility]) 07/29/2017 Medicare annual wellness visit, subsequent 07/30/2018 [...] Cancer Father Cancer Father skin Heart Mother [place] late 50's Stroke Mother Diabetes Mother Patient [...] from Folstein et al.1 and Emre and Folstein2. (c) 1974, 1997 [employer] Used with permission. References: 1. Folstein MF, Folstein SE, Sloane [place]. Mini-Mental State: a practical method for grading the cognitive state of patients for the clinician. J Psychiatr Res. 1975; 12:189-198. 2. JR Emre, Folstein MF, Mini-Mental State Examination (MMSE). Psychopharm Bull. 1988;24:689-692. 3. Yoav JT, Anant FJ, Edwin RD, Dylon A, Akanksha F. Neuropsychological function in Alzheimer's disease: pattern of impairment and rates of progression. Arch Neurol. 1988;45:263-268. 4. See PERKINS, Anderson B, Collins S-P, Cole SU. Predictors of cognitive and functional progression in patients with probable Alzheimer's disease. Neurology. 1992;42:1444-9335. Geriatric Depression score: abnormal at 7 Lai's [...] which included preparing to see the patient, lgey-pi-nweu patient care, completing clinical documentation, performing a medically appropriate examination, counseling and educating the patient/family/caregiver and ordering medications, tests, or procedures. Vishal Jnoes MD documented in this encounter [facility] 12-30-2022 Note [facility] 12-30-2022 Nurse Note Radiation Therapy - Patient Education Note PATIENT NAME: Sam Hagen PATIENT December 30, 2022 [facility] FACILITY[facility]LOCATION: [place] READINESS TO LEARN Cognitive Ability: Alert and [...] handouts on Department phone list, Fatigue, and [place] instructions, XRT sheet and Aquaphor handout. Referral (recommendation): None, Pt denied need for social work, van service, and change booth attendant. Was approved? unknown Signed by: Nikole Lamb RN documented in this encounter [facility] 12-24-2022 Miscellaneous Notes Spoke to daughter [...] at work. Daughter requesting return call on [phone] Jones's office. Outcome: Informed daughter that I would send communication to Dr. Jones's office with her request. Reason for Disposition [1] Caller is not with the adult (patient) AND [2] probable NON-URGENT symptoms Protocols used: Information Only Call - No [id number] documented in this encounter [facility] 12-20-2022 Note [facility] 12-20-2022 Nurse Note Radiation Therapy - Nursing Note (Consult) PATIENT NAME: Sam Hagen PATIENT December 20, 2022 [facility] FACILITY[facility]LOCATION: [place] Chief Complaint: Metastatic colon cancer Reason for visit: Consult. Referring physician: Internal provider Dr Greenberg Subjective Data: has spinal stenosis that is causing issues with pain- right low back and down leg, along with neuropathy Additional Data Do you want to see a Director Of Digital Technology? No Are you interested in information about fertility? No Status: Patient is male Stress Scale: On a scale of 0 to 10, what number best describes how much distress you have experienced in the past week?(0 being no distress and 10 being extreme distress) 8 Social work notified: Pt denied need to see sr. social media & mobile manager at this time. SIGNED by: Marion Greenberg RN documented in this encounter [facility] 12-20-2022 History of Present illness Narrative [...] of prostate cancer diagnosed in 2005 with Conway score 6 (3+3), PSA 12 and clinical [...] Allergies PAST MEDICAL HISTORY Diagnosis Date A-fib (FORM[facility]) s/p colectomy 2016. Watch Crystal [facility] Dr. Huntley-LAst visit 01/2019 Arthritis of right hip 09/25/2017 Arthritis, lumbar spine 09/25/2017 Bilateral carotid artery stenosis 02/04/2022 US 01/2022: L side 60-80% R side 40-60%. Consult to vasc Bladder stone 09/25/[address] Bagley BPH with obstruction/lower urinary tract symptoms BPH with obstruction/lower urinary tract symptoms Dr. Hednrix Calculus of gallbladder with chronic cholecystitis without obstruction 06/13/2021 Chronic midline back pain 10/20/2017 Cog-wheel rigidity 06/18/2019 left upper extrmity, right upper extremity lead piping Cognitive impairment, mild, so stated 06/18/2019 Colon cancer ([facility]) 06/30/[address] Greenberg, Had extension into the bladder wall and hd a partial cystectomy. Colostomy care (FORM[facility]) 09/25/[address] ([facility]) 09/25/2017 Coronary artery disease involving false pass coronary artery 09/25/[address] Siddiqui [id number] DDD (degenerative disc disease), lumbar 12/14/2021 Elevated hemoglobin A1c 07/30/2018 Essential hypertension 04/02/2011 Essential tremor 08/16/2019 Generalized weakness 06/18/2019 H/O heart artery stent 09/25/2017 4 stents 1993 History of DVT (deep vein thrombosis) 09/25/2017 1st clot end of Aug 2017, started on Eliquis 09/15/2017 needs to be on till 03/15/2018 S/P colectomy History of [place] (myocardial infarction) 1993 History of prostate cancer seeing Dr. White Hyperlipidemia, mixed 09/25/[address] ([facility]) 06/13/2021 Living will on file at physician's office 09/25/2022 DPA: Roseanne Albert, (daughter) Malignant neoplasm of ascending colon ([facility]) 07/29/2017 Malignant neoplasm of sigmoid colon ([facility]) 07/29/2017 Medicare annual wellness visit, subsequent 07/30/2018 [...] Cancer Father Cancer Father skin Heart Mother [place] late 50's Stroke Mother Diabetes Mother Social [...] that other personnel such as radiation therapists, kiln fireman, and physicists will participate in planning and delivery of radiation treatment. Permanent tattoo null will be placed to aid with positioning for daily treatment and the patient consented. Patient will have a simulation procedure within a week. Thank you very much for allowing us to participate in his care. Signed by: Clement Werner MD cc: Vishal Jones [address] [place] [address] Sam Greenberg [address] [facility] [id number] documented in this encounter [facility] 12-18-2022 Note HNO ID: [id number] Author: Sylvia Rossi MA Service: ? Author Type: Chief Engineering Division Type: Progress Notes Filed: 12/18/2022 3:14 PM Note Text: Scan on 12/12/2022 7:23 PM by External Provider: X-ray Sylvia Rossi MA [facility] 12-18-2022 History of Present illness Narrative Scan on 12/12/2022 7:23 PM by External Provider: X-ray Sylvia Rossi MA documented in this encounter [facility] 12-06-2022 Miscellaneous Notes I spoke with pt's daughter. Her concern is that pt has ankle bractlet on for home arrest thru [facility] and is wondering if we can do [...] and daughter agree. Thank you. Tameka Marshall APRN.BAKER DOUGHNUT Patient's daughter, Rita, called to get the results of PET Scan. Please advise. Nora Mansfield documented in this encounter [facility] 12-03-2022 History of Present illness Narrative [...] 1103 PATIENT DISCHARGED TO: Ambulatory patient, left [place] department area. A Diagnostic radioactive procedure has taken place, with no further precautions necessary other than routine body substance precautions. More information regarding radiation safety can be found using this link: [email or web address] SIGNATURE: RT Mackenzie(R) PATIENT NAME: Sam Hagen DATE: December 03, 2022 TIME: 11:09 AM PAGER/CONTACT #: documented in this encounter [facility] 11-28-2022 Miscellaneous Notes 1st attempt unable to leave a message with patient, to return call to schedule consult with Spine Surgery. Please transfer patient to [phone] as they will need to speak with [...] Karuna Cannon LPN documented in this encounter [facility] 11-27-2022 Note [facility] 11-27-2022 History of Present illness Narrative Radiology [...] 2022 11:24 AM documented in this encounter [facility] 11-20-2022 Miscellaneous Notes TC to Rita to inform of below. A letter from Dr. Liu was signed and faxed to public transportation inspector Nora Ott on October 11 as requested by the family for patient to ankle bracelet removed to have scans completed. (Please see TE 10/01/22). At this point, family needs to contact [facility]'s department or public transportation inspector's office to clarify what is needed as letter has already been faxed as requested. BETY Putnam Spoke with [facility] dept, they instructed pt. To reschedule MRI. Shreya Villalta LPN message left on daughters work and mobile number . Contacted [facility] dept. Concerning pts. Ankle bracelet, also telephone note sent to inDr. Liu(ordering physician of MRI) that [facility] dept. Needed fax requesting that monitor be removed for procedure (mri) Fax letter to [phone]. Then spoke with Daughter Rita she stated she spoke with scheduling and [...] you. Tameka Marshall APRN.SOULEYMANE Please call daughter [phone] after 4 pm or [phone] before 4 pm. Patient's daughter Rita was [...] Sylvia Rossi MA documented in this encounter [facility] 11-15-2022 Note [facility] 11-15-2022 History of Present illness Narrative Chief Complaint Patient presents with: ED Follow-up HPI Sam Hagen is a 82 year old male who presents here today for ER Follow Up.. Patient was seen in [facility] ER on 10/31/2022 after a fall on [...] History PAST MEDICAL HISTORY Diagnosis Date A-fib (FORM[facility]) s/p colectomy 2016. Watch Crystal [facility] Dr. Huntley-LAst visit 01/2019 Arthritis of right [...] impairment, mild, so stated 06/18/2019 Colon cancer ([facility]) 06/30/[address] Greenberg, Had extension into the bladder wall and hd a partial cystectomy. Colostomy care ([facility]) 09/25/[address] ([facility]) 09/25/2017 Coronary artery disease involving false pass coronary artery 09/25/[address] Siddiqui [id number] DDD (degenerative disc disease), lumbar 12/14/2021 Elevated hemoglobin A1c 07/30/2018 Essential hypertension 04/02/2011 Essential tremor 08/16/2019 Generalized weakness 06/18/2019 H/O heart artery stent 09/25/2017 4 stents 1993 History of DVT (deep vein thrombosis) 09/25/2017 1st clot end of Aug 2017, started on Eliquis 09/15/2017 needs to be on till 03/15/2018 S/P colectomy History of [place] (myocardial infarction) 1993 History of prostate cancer [...] Cancer Father Cancer Father skin Heart Mother [place] late 50's Stroke Mother Diabetes Mother Patient [...] Vishal Jones MD documented in this encounter [facility] 11-14-2022 Note [facility] 11-14-2022 Note HNO ID: [id number] Author: Shreya Villalta LPN Service: ? Author Type: LICENSED NURSE Type: Progress Notes Filed: 11/15/2022 2:24 PM Note Text: Est. Pt. , discuss recent labs 11/07 [facility] 11-08-2022 Miscellaneous Notes Patient's daughter notified that [...] letter to patient's daughter if possible at [phone] or call her on her cell or work number at [phone] if more information Is required. documented in this encounter [facility] 11-07-2022 Note [facility] 11-07-2022 Note [facility] 11-07-2022 History of Present illness Narrative Radiology [...] TIME: 4:16 PM documented in this encounter [facility] 11-07-2022 History of Present illness Narrative Patient is here for IVAD port flush/blood draw per Nursing Repton protocol. IVAD is located in left upper [...] tolerated procedure well. documented in this encounter [facility] 11-01-2022 Note [facility] 11-01-2022 History of Present illness Narrative Scan [...] Sylvia Rossi MA documented in this encounter [facility] 10-28-2022 Miscellaneous Notes Patient has been [...] Brenda Najera Pss documented in this encounter [facility] 10-21-2022 History of Present illness Narrative ESTABLISHED [...] Diagnosis Date A-fib (HCC) s/p colectomy 2016. Watch [facility]. Huntley-LAst visit 01/2019 Arthritis of right [...] impairment, mild, so stated 06/18/2019 Colon cancer (FORM[facility]LY [facility]) 06/30/[address] Greenberg, Had extension into the bladder wall and hd a partial cystectomy. Colostomy care (FORM[facility]LY [facility]) 09/25/[address] ([facility]) 09/25/2017 Coronary artery disease involving false pass coronary artery 09/25/[address] Siddiqui [id number] DDD (degenerative disc disease), lumbar 12/14/2021 Elevated hemoglobin A1c 07/30/2018 Essential hypertension 04/02/2011 Essential tremor 08/16/2019 Generalized weakness 06/18/2019 H/O heart artery stent 09/25/2017 4 stents 1993 History of DVT (deep vein thrombosis) 09/25/2017 1st clot end of Aug 2017, started on Eliquis 09/15/2017 needs to be on till 03/15/2018 S/P colectomy History of [place] (myocardial infarction) 1993 History of prostate cancer seeing Dr. White Hyperlipidemia, mixed 09/25/[address] (FORM[facility]LY [facility]) 06/13/2021 Living will on file at physician's office 09/25/2022 DPA: Roseanne Albert, (daughter) Malignant neoplasm of ascending colon ([facility]) 07/29/2017 Malignant neoplasm of sigmoid colon (FORM[facility]) 07/29/2017 Medicare annual wellness visit, subsequent 07/30/2018 [...] Cancer Father Cancer Father skin Heart Mother [place] late 50's Stroke Mother Diabetes Mother SOCIAL [...] which included preparing to see the patient, [id number] patient care, completing clinical documentation, obtaining and/or reviewing separately obtained history, performing a medically appropriate examination, and counseling and educating the patient/family/caregiver. documented in this encounter [facility] 10-11-2022 Miscellaneous Notes Signed letter faxed to numbers provided below as requested. BETY Putnam TC to [place] to clarify what needs to be documented in the letter for patient to receive MRI. Cora stated the GPS bracelet needs to be removed for the patient to complete an MRI and that the MRI is necessary for the patients help based on the Drs recommendation. The letter can then be faxed to the public transportation inspector below. Please advise. Thank you. BETY Putnam Please reach out to the number attached and clarify what is needed. Thank you, Mikhail Liu MD Received telephone call from [facility] Cora. Param stated patient unable to complete MRI d/t [...] is written fax letter to patient's public transportation inspector Nora Ott. Nora's fax: [phone] ATTN: Nora Ott Please review & advise. [...] Mikhail Liu MD documented in this encounter [facility] 10-09-2022 History of Present illness Narrative Chief [...] History PAST MEDICAL HISTORY Diagnosis Date A-fib (FORM[facility]) s/p colectomy 2016. Watch [facility]. Huntley-LAst visit 01/2019 Arthritis of right hip 09/25/2017 Arthritis, lumbar spine 09/25/2017 Bilateral carotid artery stenosis 02/04/2022 US 01/2022: L side 60-80% R side 40-60%. Consult to vas Bladder stone 09/25/[address] Bagley BPH with obstruction/lower urinary tract symptoms BPH with obstruction/lower urinary tract symptoms Dr. Hendrix Calculus of gallbladder with chronic cholecystitis without obstruction 06/13/2021 Chronic midline back pain 10/20/2017 Cog-wheel rigidity 06/18/2019 left upper extrmity, right upper extremity lead piping Cognitive impairment, mild, so stated 06/18/2019 Colon cancer ([facility]) 06/30/[address] Greenberg, Had extension into the bladder wall and hd a partial cystectomy. Colostomy care ([facility]) 09/25/[address] ([facility]) 09/25/2017 Coronary artery disease involving false pass coronary artery 09/25/[address] Siddiqui [id number] DDD (degenerative disc disease), lumbar 12/14/2021 Elevated hemoglobin A1c 07/30/2018 Essential hypertension 04/02/2011 Essential tremor 08/16/2019 Generalized weakness 06/18/2019 H/O heart artery stent 09/25/2017 4 stents 1993 History of DVT (deep vein thrombosis) 09/25/2017 1st clot end of Aug 2017, started on Eliquis 09/15/2017 needs to be on till 03/15/2018 S/P colectomy History of [place] (myocardial infarction) 1993 History of prostate cancer seeing Dr. White Hyperlipidemia, mixed 09/25/[address] ([facility]) 06/13/2021 Living will on file at physician's office 09/25/2022 DPA: Roseanne Albert, (daughter) Malignant neoplasm of ascending colon ([facility]) 07/29/2017 Malignant neoplasm of sigmoid colon (HCC) [...] Cancer Father Cancer Father skin Heart Mother [place] late 50's Stroke Mother Diabetes Mother Patient [...] Vishal Jones MD documented in this encounter [facility] 10-09-2022 Miscellaneous Notes Patient came in [...] CBC/BMP/LFT's/CEA after above. Thank you. Tameka Marshall APRN.[employer] D[employer]NUT documented in this encounter [facility] 09-30-2022 Miscellaneous Notes The following approved [...] repeat. Order placed. documented in this encounter [facility] 09-25-2022 History of Present illness Narrative [...] in the PM. Seeing Dr. Small at [facility]. Seeing Dr. Krause in vascular and Dr. Liu in neurology. Past medical history, appointments, medications, allergies reviewed. Previous Medical History PAST MEDICAL HISTORY Diagnosis Date A-fib (HCC) s/p colectomy 2016. Watch [facility]. 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 Colostomy care ([facility]) 09/25/[address] ([facility]) 09/25/2017 Coronary artery disease involving false pass coronary artery 09/25/[address] Siddiqui [id number] Elevated hemoglobin A1c 07/30/2018 Essential hypertension 04/02/2011 Essential tremor 08/16/2019 Generalized weakness 06/18/2019 H/O heart artery stent 09/25/2017 4 stents 1993 History of DVT (deep vein thrombosis) 09/25/2017 1st clot end of Aug 2017, started on Eliquis 09/15/2017 needs to be on till 03/15/2018 S/P colectomy History of [place] (myocardial infarction) 1993 History of prostate cancer [...] Cancer Father Cancer Father skin Heart Mother [place] late 50's Stroke Mother Diabetes Mother Patient [...] Abs Lymph 1.00 - 4.00 k/uL 1.00 [place]% % 8.6 Abs [place] <0.87 k/uL 0.68 Eosin% % 1.4 Abs [...] check A1c 4. Coronary artery disease involving false pass coronary artery of false pass heart without angina pectoris - ICD9: 414.01, [...] Vishal Jones MD documented in this encounter [facility] 09-23-2022 History of Present illness Narrative Images from the original note were not included. Brittny Gonzalez MD General Surgery [address] [place] [address], [address] [place] [address] Patient referred by: Maye Gonzalez [address] [facility] [address] HPI: Mr. Hagen is a 82 year [...] 2.5. PAST MEDICAL HISTORY Diagnosis Date A-fib ([facility]) s/p colectomy 2016. Watch [facility] Dr. Huntley-LAst visit 01/2019 Arthritis of right [...] impairment, mild, so stated 06/18/2019 Colon cancer ([facility]) 06/30/[address] Greenberg, Had extension into the bladder wall and hd a partial cystectomy. Colostomy care ([facility]) 09/25/[address] ([facility]) 09/25/2017 Coronary artery disease involving false pass coronary artery 09/25/[address] Huntley-Hugo [id number] Elevated hemoglobin A1c 07/30/2018 Essential hypertension 04/02/2011 Essential tremor 08/16/2019 Generalized weakness 06/18/2019 H/O heart artery stent 09/25/2017 4 stents 1993 History of DVT (deep vein thrombosis) 09/25/2017 1st clot end of Aug 2017, started on Eliquis 09/15/2017 needs to be on till 03/15/2018 S/P colectomy History of [place] (myocardial infarction) 1993 History of prostate cancer [...] Cancer Father Cancer Father skin Heart Mother [place] late 50's Stroke Mother Diabetes Mother Social [...] in LLQ-small amount of semiformed formed stool [place] mucosa; vague bulge underneath this but not [...] place (HCC) Z93.2 4. Paroxysmal atrial fibrillation ([facility]) I48.0 5. History of colon cancer Z85.038 [...] This office note has been created using Certain, a speech recognition software program, and may contain errors including punctuation, grammar, spelling, gender, and inappropriate words or phrases that pertain to the sytem. documented in this encounter [facility] 09-13-2022 Miscellaneous Notes Patient identified by name and date of . I advised patient the urine culture showed that macrobid would likely be ineffective to treat his UTI. He states he is still having some dysuria. Bactrim sent to his pharmacy, patient advised to stop Macrobid and start Bactrim. He verbalized understanding. Kassandra Grady APRN.[employer]KER DOUGHNUT documented in this encounter [facility] 09-10-2022 Miscellaneous Notes BJ with [facility] called in states the Pts phone wasn't working. Pt states he was having UTI like issues. He was having leaking and pain with urination. Let her know there were no open appointments and to have him come to [facility]. Let her know [facility] is open until 8 pm. documented in this encounter [facility] 08-27-2022 Miscellaneous Notes Form faxed to Form signed. Paperwork received and given to PCP for review. Sylvia Rossi MA [facility] calling and states they will be faxing request for supplies for patient to PCP office and confirming fax number. Fax number verified. Meka Capps RN documented in this encounter [facility] 08-21-2022 History of Present illness Narrative [...] PERIPHERAL IV DATA: power port accessed by [employer] SIGNED BY: RT Arturo(R) August 21, 2022 2:52 PM documented in this encounter [facility] 08-19-2022 History of Present illness Narrative [...] patient undergo an in-lab PSG. Pt requests [facility]. 7. Cognitive impairment - ICD9: 294.9, ICD10: [...] HISTORIES PAST MEDICAL HISTORY Diagnosis Date A-fib ([facility]) s/p colectomy 2016. Watch [facility] Dr. Huntley-LAst visit 01/2019 Arthritis of right hip 09/25/2017 Arthritis, lumbar spine 09/25/2017 Bilateral carotid artery stenosis 02/04/2022 US 01/2022: L side 60-80% R side 40-60%. Consult to [facility] Bladder stone 09/25/[address] Bagley BPH with obstruction/lower urinary tract symptoms BPH with obstruction/lower urinary tract symptoms Dr. Hendrix Chronic midline back pain 10/20/2017 Cog-wheel rigidity 06/18/2019 left upper extrmity, right upper extremity lead piping Cognitive impairment, mild, so stated 06/18/2019 Colon cancer ([facility]) 06/30/[address] Greenberg, Had extension into the bladder wall and hd a partial cystectomy. Colostomy care ([facility]) 09/25/[address] ([facility]) 09/25/2017 Coronary artery disease involving false pass coronary artery 09/25/[address] Siddiqui [id number] Elevated hemoglobin A1c 07/30/2018 Essential hypertension 04/02/2011 Essential tremor 08/16/2019 Generalized weakness 06/18/2019 H/O heart artery stent 09/25/2017 4 stents 1993 History of DVT (deep vein thrombosis) 09/25/2017 1st clot end of Aug 2017, started on Eliquis 09/15/2017 needs to be on till 03/15/2018 S/P colectomy History of [place] (myocardial infarction) 1993 History of prostate cancer seeing Dr. White Hyperlipidemia, mixed 09/25/2017 Malignant neoplasm of ascending colon ([facility]) 07/29/2017 Malignant neoplasm of sigmoid colon ([facility]) 07/29/2017 Medicare annual wellness visit, subsequent 07/30/2018 [...] Cancer Father Cancer Father skin Heart Mother [place] late 50's Stroke Mother Diabetes Mother SOCIAL [...] dysarthria; comprehension, naming, repetition intact. Serial 7s [id number]. Similarity of objects: 2/2. Clock drawing intact. [...] which included preparing to see the patient, [id number] patient care, completing clinical documentation, obtaining and/or reviewing separately obtained history, performing a medically appropriate examination, counseling and educating the patient/family/caregiver, independently interpreting results (not separately reported), and communicating results to the patient/family/caregiver. documented in this encounter [facility] 07-29-2022 Miscellaneous Notes Patient has been [...] Beverley Duff Pss documented in this encounter [facility] 07-24-2022 History of Present illness Narrative Chief Complaint Patient presents with: Pain: ER follow up on - fall on left shoulder/elbow HPI Sam Hagen is a 82 year old male who presents here today for ER Follow Up.. Patient also mentioned right hip pain and issues with urinating. Patient presented to [facility] ER on 07/15/2022 after having a mechanical [...] fall and no worse. He saw Hugo caballero back in November and they had discussed [...] History PAST MEDICAL HISTORY Diagnosis Date A-fib ([facility]) s/p colectomy 2016. Watch [facility] Dr. Huntley-LAst visit 01/2019 Arthritis of right hip 09/25/2017 Arthritis, lumbar spine 09/25/2017 Bilateral carotid artery stenosis 02/04/2022 US 01/2022: L side 60-80% R side 40-60%. Consult to [facility] Bladder stone 09/25/[address] Bagley BPH with obstruction/lower urinary tract symptoms BPH with obstruction/lower urinary tract symptoms Dr. Hendrix Chronic midline back pain 10/20/2017 Cog-wheel rigidity 06/18/2019 left upper extrmity, right upper extremity lead piping Cognitive impairment, mild, so stated 06/18/2019 Colon cancer ([facility]) 06/30/[address] Greenberg, Had extension into the bladder wall and hd a partial cystectomy. Colostomy care ([facility]) 09/25/[address] ([facility]) 09/25/2017 Coronary artery disease involving false pass coronary artery 09/25/[address] Siddiqui [id number] Elevated hemoglobin A1c 07/30/2018 Essential hypertension 04/02/2011 Essential tremor 08/16/2019 Generalized weakness 06/18/2019 H/O heart artery stent 09/25/2017 4 stents 1993 History of DVT (deep vein thrombosis) 09/25/2017 1st clot end of Aug 2017, started on Eliquis 09/15/2017 needs to be on till 03/15/2018 S/P colectomy History of [place] (myocardial infarction) 1993 History of prostate cancer seeing Dr. White Hyperlipidemia, mixed 09/25/2017 Malignant neoplasm of ascending colon ([facility]) 07/29/2017 Malignant neoplasm of sigmoid colon ([facility]) 07/29/2017 Medicare annual wellness visit, subsequent 07/30/2018 [...] Cancer Father Cancer Father skin Heart Mother [place] late 50's Stroke Mother Diabetes Mother Patient [...] VACCINE Completed PNEUMOCOCCAL: 65+ Completed Data reviewed [facility] report from 07/15/2022 Component Latest Ref [...] Patient instructed on care. - referral to [facility]. 2. Dysuria - ICD9: 788.1, ICD10: R30.0 acute - UA positive for imke esterase and hematuria - Patient education for [...] Vishal Jones MD documented in this encounter [facility] 07-15-2022 History of Present illness Narrative Patient came in for wound on left arm. Patient says he fell last night. Patient says he feels pretty unsteady on his feet and very disoriented. Patient says he got lost on his way here. Patient is having confusing statements saying 1 thing and then saying another thing. Patient's urine was checked is negative for UTI. Nonemergency squad was called to transport patient to the ER for full evaluation. documented in this encounter [facility] 06-20-2022 History of Present illness Narrative Patient is here for IVAD port flush/blood draw per [facility] protocol. IVAD is located in right upper [...] tolerated procedure well. documented in this encounter [facility] 06-06-2022 Miscellaneous Notes The following approved [...] advise. Leonid Ward documented in this encounter [facility] 05-15-2022 Instructions Vishal Jones MD - 05/15/2022 10:34 AM EDT Sam please contact your orthopedic spine providers office and let them know you saw vascular (Dr. Kaye Oneal with [facility] up on [address]) on 03/26/2022. documented in this encounter [facility] 05-15-2022 History of Present illness Narrative [...] Diagnosis Date A-fib (HCC) s/p colectomy 2016. Watch [facility] Dr. Huntley-LAst visit 01/2019 Arthritis of right [...] Colostomy care (HCC) 09/25/[address] ([facility]) 09/25/2017 Coronary artery disease involving false pass coronary artery 09/25/[address] Siddiqui [id number] Elevated hemoglobin A1c 07/30/2018 Essential hypertension 04/02/2011 Essential tremor 08/16/2019 Generalized weakness 06/18/2019 H/O heart artery stent 09/25/2017 4 stents 1993 History of DVT (deep vein thrombosis) 09/25/2017 1st clot end of Aug 2017, started on Eliquis 09/15/2017 needs to be on till 03/15/2018 S/P colectomy History of [place] (myocardial infarction) 1993 History of prostate cancer [...] Cancer Father Cancer Father skin Heart Mother [place] late 50's Stroke Mother Diabetes Mother Patient [...] which included preparing to see the patient, [id number] patient care, completing clinical documentation, performing a medically appropriate examination, counseling and educating the patient/family/caregiver and ordering medications, tests, or procedures. Vishal Jones MD documented in this encounter [facility] 05-06-2022 History of Present illness Narrative [...] 40 Total Treatment Time Minutes (timed/untimed): 40 Chsae Westbrook PT documented in this encounter [facility] 04-30-2022 History of Present illness Narrative [...] Patient to be seen for Therapeutic exercise (89713);Neuromuscular re-education (77410);Manual therapy (52767);Therapeutic activities (53984);Self-usp management (10331);Patient/Family/Caregiver Education;Gait Training (56509) PLAN FOR NEXT VISIT: Progress LE strengthening. elisha Chaney SLR SUBJECTIVE: Patient Reason for Visit: Pt [...] Chase Westbrook PT documented in this encounter [facility] 04-18-2022 History of Present illness Narrative [...] Chase Westbrook PT documented in this encounter [facility] 03-28-2022 History of Present illness Narrative [...] Chase Westbrook PT documented in this encounter [facility] 03-26-2022 History of Present illness Narrative Images from the original note were not included. [facility] DEPARTMENT OF VASCULAR SURGERY OUTPATIENT VISIT DATE March 26, 2022 OUTPATIENT VISIT TYPE CONSULTATION SERVICE DATE: 03/26/2022 SERVICE TIME: 8:43 AM PRIMARY CARE PHYSICIAN: Vishal Jones MD REFERRING PROVIDER: Sharda Carl [address] [facility] [place] [address] Consult requested for an opinion regarding the [...] handed PAST MEDICAL HISTORY Diagnosis Date A-fib ([facility]) s/p colectomy 2016. Watch [facility] Dr. 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 Bagley BPH with obstruction/lower urinary tract symptoms BPH with obstruction/lower urinary tract symptoms Dr. Hendrix Chronic midline back pain 10/20/2017 Cog-wheel rigidity 06/18/2019 left upper extrmity, right upper extremity lead piping Cognitive impairment, mild, so stated 06/18/2019 Colon cancer ([facility]) 06/30/[address] Greenberg, Had extension into the bladder wall and hd a partial cystectomy. Colostomy care ([facility]) 09/25/[address] ([facility]) 09/25/2017 Coronary artery disease involving false pass coronary artery 09/25/[address] Siddiqui [id number] Elevated hemoglobin A1c 07/30/2018 Essential hypertension 04/02/2011 Essential tremor 08/16/2019 Generalized weakness 06/18/2019 H/O heart artery stent 09/25/2017 4 stents 1993 History of DVT (deep vein thrombosis) 09/25/2017 1st clot end of Aug 2017, started on Eliquis 09/15/2017 needs to be on till 03/15/2018 S/P colectomy History of [place] (myocardial infarction) 1993 History of prostate cancer [...] Cancer Father Cancer Father skin Heart Mother [place] late 50's Stroke Mother Diabetes Mother MEDICATIONS: [...] TIME: 8:43 AM documented in this encounter [facility] 03-25-2022 History of Present illness Narrative Images from the original note were not included. Brittny Gonzalez MD General Surgery [address] [place] [address], [address] [place] [address] Patient referred by: Maye Gonzalez [address] [place] [address] HPI: Mr. Hagen is a 82 year old male who presents today for routine follow-up due to his previous history of colon cancer. In 2017 he had synchronous cancers of the sigmoid [...] issues. PAST MEDICAL HISTORY Diagnosis Date A-fib ([facility]) s/p colectomy 2016. Watch [facility] Dr. 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 Bagley BPH with obstruction/lower urinary tract symptoms BPH with obstruction/lower urinary tract symptoms Dr. Hendrix Chronic midline back pain 10/20/2017 Cog-wheel rigidity 06/18/2019 left upper extrmity, right upper extremity lead piping Cognitive impairment, mild, so stated 06/18/2019 Colon cancer ([facility]) 06/30/[address] Greenberg, Had extension into the bladder wall and hd a partial cystectomy. Colostomy care ([facility]) 09/25/[address] ([facility]) 09/25/2017 Coronary artery disease involving false pass coronary artery 09/25/[address] Huntley-Hugo [id number] Elevated hemoglobin A1c 07/30/2018 Essential hypertension 04/02/2011 Essential tremor 08/16/2019 Generalized weakness 06/18/2019 H/O heart artery stent 09/25/2017 4 stents 1993 History of DVT (deep vein thrombosis) 09/25/2017 1st clot end of Aug 2017, started on Eliquis 09/15/2017 needs to be on till 03/15/2018 S/P colectomy History of [place] (myocardial infarction) 1993 History of prostate cancer [...] Cancer Father Cancer Father skin Heart Mother [place] late 50's Stroke Mother Diabetes Mother Social [...] This office note has been created using Certain, a speech recognition software program, and may contain errors including punctuation, grammar, spelling, gender, and inappropriate words or phrases that pertain to the sytem. documented in this encounter [facility] 03-21-2022 History of Present illness Narrative Chief Complaint Patient presents with: Established Patient HPI: Sam Hagen is a 82 year old male who presents here today for follow up rectal cancer. Per Dr. Greenberg's previous note: H/o CAD ([place] 1993; treated with PCI balloon angioplasty; no stent) and prostate cancer (tx with radiation x44 fx ~8 years ago). He presented to [facility] fall 2016 with symptoms of bowel obstruction. He underwent attempted colonoscopy but the procedure was aborted when the scope was not able to be passed through the rectum/sigmoid area. He was transferred to [facility]. He ultimately underwent a total colectomy [...] the patient underwent total colectomy in 2017 ([id number]). Colon and Rectum Cancer Case Summary Procedure: [...] Lymph 1.00 - 4.00 k/uL 1.24 1.03 [place]% % 9.9 8.1 Abs [place] <0.87 k/uL 0.70 0.61 Eosin% % 2.0 [...] as necessary for today's visit. Tameka Marshall APRN.[employer] documented in this encounter [facility] 03-21-2022 Nurse Note Est. Pt. Discuss recent labs and CT results. Shreya Villalta LPN documented in this encounter [facility] 03-08-2022 Miscellaneous Notes noted Patient calling [...] Sharda for 03/12/22. documented in this encounter [facility] 02-26-2022 History of Present illness Narrative Blood return verified. Gripper hooked to auto-injector. Ct completed. Line flushed with 20cc NSS and 5cc Heparin. Gripper D/C'd. Light dressing applied. Pt tolerated procedure well. No C/O's. Site without complication noted. Deepika Gavin RN documented in this encounter [facility] 02-26-2022 History of Present illness Narrative [...] PERIPHERAL IV DATA: power port accessed by [employer] SIGNED BY: RT Arturo(R) February 26, 2022 2:04 PM documented in this encounter [facility] 02-06-2022 Miscellaneous Notes Pt called and [...] surgery tomorrow. Please phone Coral with reply: [phone] Patient calling he is scheduled for back surgery tomorrow at [facility] per Dr Small. Patient asking if he is safe to have surgery done since he has carotid blockages? Patient does not know what time he is scheduled for yet. He said he is to be staying overnight at [facility]. Please advise documented in this encounter [facility] 01-31-2022 Miscellaneous Notes Patient notified. Verbalized understanding. ----- Message from Sharda Carl PA-C sent at 01/31/2022 8:45 AM EDT ----- Labs are normal. documented in this encounter [facility] 01-22-2022 History of Present illness Narrative Scan on 01/22/2022 11:12 AM by External Provider: Echo documented in this encounter [facility] 01-17-2022 Miscellaneous Notes Pt notified to contact Dr. Tena's office. He stated [facility]osus[facility] Caballero states that they will not do anything [...] calling: self Call patient at: at home [phone] (home) [phone] (cell) Was an appointment scheduled: No Closing statement: Symptom Call: Thank you for calling [facility], your call is very important. A nurse will call in approximately 2-4 hours during business hours. If this is an emergency, please contact 911. Beverley Garrett documented in this encounter [facility] 01-08-2022 Miscellaneous Notes Spoke to patient [...] Hydroxyzine for anxiety. Sylvia Rossi MA Sam Hagen is calling Vishal Jones MD today he is calling and asking about a medication that the doctor told him he would have sent to his pharmacy for anxiety/depression. He does not know the name of the medication. Please call the patient. Patient has been identified by name and birthdate. Duration of symptoms: N/A Person calling: self Call patient at: at home [phone] (home) [phone] (cell) Was an appointment scheduled: No Closing statement: Results or non-symptom based questions: Thank you for calling [facility], your call will be returned within the next business day. Beverley Garrett documented in this encounter [facility] 12-14-2021 Instructions Sharda Carl PA-C - 12/14/2021 9:33 AM EDT Please get labs done. Can try Aquaphor at night to help moisturize skin. Follow up as scheduled otherwise. documented in this encounter [facility] 12-14-2021 History of Present illness Narrative [...] History PAST MEDICAL HISTORY Diagnosis Date A-fib ([facility]) s/p colectomy 2016. Watch [facility] Dr. 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 Bagley BPH with obstruction/lower urinary tract symptoms BPH with obstruction/lower urinary tract symptoms Dr. Hendrix Chronic midline back pain 10/20/2017 Cog-wheel rigidity 06/18/2019 left upper extrmity, right upper extremity lead piping Cognitive impairment, mild, so stated 06/18/2019 Colon cancer ([facility]) 06/30/[address] Greenberg, Had extension into the bladder wall and hd a partial cystectomy. Colostomy care (FORM[facility]) 09/25/[address] ([facility]) 09/25/2017 Coronary artery disease involving false pass coronary artery 09/25/[address] Huntley-Hugo [id number] Elevated hemoglobin A1c 07/30/2018 Essential hypertension 04/02/2011 Essential tremor 08/16/2019 Generalized weakness 06/18/2019 H/O heart artery stent 09/25/2017 4 stents 1994 History of DVT (deep vein thrombosis) 09/25/2017 1st clot end of Aug 2017, started on Eliquis 09/15/2017 needs to be on till 03/15/2018 S/P colectomy History of [place] (myocardial infarction) 1993 History of prostate cancer [...] Cancer Father Cancer Father skin Heart Mother [place] late 50's Stroke Mother Diabetes Mother Patient [...] See above. 3. Coronary artery disease involving false pass coronary artery of false pass heart without angina pectoris - ICD9: 414.01, ICD10: I25.10 Continue with cardio 4. Paroxysmal atrial fibrillation (HCC) - ICD9: 427.31, ICD10: I48.0 Continue with cardio 5. Elevated hemoglobin A1c - ICD9: 790.29, ICD10: R73.09 Check labs 6. Hyperlipidemia, mixed - ICD9: 272.2, ICD10: E78.2 Await labs. Sharda Carl PA-C documented in this encounter [facility] 12-10-2021 History of Present illness Narrative Patient is here for IVAD port flush per Nursing [facility] protocol. IVAD is located in right upper chest. Site cleansed with Chloraprep IVAD accessed with a #20 gauge 3/4 non-coring Gripper needle Blood Return: Good Flushed with: 20 ml Normal Saline and 5 ml Heparin Lock Flush Non-coring needle removed. Paper tape applied to puncture site. Port site negative for redness, edema or tenderness. Patient tolerated procedure well. documented in this encounter [facility] 12-08-2021 History of Present illness Narrative [...] Diagnosis Date A-fib (HCC) s/p colectomy 2016. Watch [facility]. 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 Bagley BPH with obstruction/lower urinary tract symptoms BPH with obstruction/lower urinary tract symptoms Dr. Hendrix Chronic midline back pain 10/20/2017 Cog-wheel rigidity 06/18/2019 left upper extrmity, right upper extremity lead piping Cognitive impairment, mild, so stated 06/18/2019 Colon cancer ([facility]) 06/30/[address] Greenberg, Had extension into the bladder wall and hd a partial cystectomy. Colostomy care ([facility]) 09/25/[address] ([facility]) 09/25/2017 Coronary artery disease involving false pass coronary artery 09/25/[address] Siddiqui [id number] Elevated hemoglobin A1c 07/30/2018 Essential hypertension 04/02/2011 Essential tremor 08/16/2019 Generalized weakness 06/18/2019 H/O heart artery stent 09/25/2017 4 stents 1993 History of DVT (deep vein thrombosis) 09/25/2017 1st clot end of Aug 2017, started on Eliquis 09/15/2017 needs to be on till 03/15/2018 S/P colectomy History of [place] (myocardial infarction) 1993 History of prostate cancer seeing Dr. White Hyperlipidemia, mixed 09/25/2017 Malignant neoplasm of ascending colon (HCC) 07/29/2017 Malignant neoplasm of sigmoid colon ([facility]) 07/29/2017 Medicare annual wellness visit, subsequent 07/30/2018 [...] Cancer Father Cancer Father skin Heart Mother [place] late 50's Stroke Mother Diabetes Mother Patient [...] as needed. [place]: No Keep f/u at december Vishal Jones MD documented in this encounter [facility] 12-05-2021 Miscellaneous Notes Pharmacy verified in [facility] Patient has been identified by name [...] Shannon Mcrae Pss documented in this encounter [facility] documented as of this encounter (statuses as of 12/08/2021) [facility] History of Past illness Narrative* Problem Noted Date Resolved Date Malnutrition of moderate degree 08/20/2020 12/08/2021 Pneumonia 07/19/2017 07/19/2017 Acute respiratory failure with hypoxia 7 07/10/2017 Aspiration pneumonitis 07/03/2017 7 Bowel obstruction 06/30/2017 07/10/2017 documented as of this encounter (statuses as of 12/10/2021) [facility] History of Past illness Narrative* Problem Noted Date Resolved Date Malnutrition of moderate degree 08/20/2020 12/08/2021 Pneumonia 07/19/2017 07/19/2017 Acute respiratory failure with hypoxia 7 07/10/2017 Aspiration pneumonitis 07/03/2017 7 Bowel obstruction 06/30/2017 07/10/2017 documented as of this encounter (statuses as of 12/14/2021) [facility] History of Past illness Narrative* Problem Noted Date Resolved Date Malnutrition of moderate degree 08/20/2020 12/08/2021 Pneumonia 07/19/2017 07/19/2017 Acute respiratory failure with hypoxia 7 07/10/2017 Aspiration pneumonitis 07/03/2017 7 Bowel obstruction 06/30/2017 07/10/2017 documented as of this encounter (statuses as of 01/07/2022) [facility] History of Past illness Narrative* Problem Noted Date Resolved Date Malnutrition of moderate degree 08/20/2020 12/08/2021 Pneumonia 07/19/2017 07/19/2017 Acute respiratory failure with hypoxia 7 07/10/2017 Aspiration pneumonitis 07/03/2017 7 Bowel obstruction 06/30/2017 07/10/2017 documented as of this encounter (statuses as of 01/08/2022) [facility] History of Past illness Narrative* Problem Noted Date Resolved Date Malnutrition of moderate degree 08/20/2020 12/08/2021 Pneumonia 07/19/2017 07/19/2017 Acute respiratory failure with hypoxia 7 07/10/2017 Aspiration pneumonitis 07/03/2017 7 Bowel obstruction 06/30/2017 07/10/2017 documented as of this encounter (statuses as of 01/17/2022) [facility] History of Past illness Narrative* Problem Noted Date Resolved Date Malnutrition of moderate degree 08/20/2020 12/08/2021 Pneumonia 07/19/2017 07/19/2017 Acute respiratory failure with hypoxia 7 07/10/2017 Aspiration pneumonitis 07/03/2017 7 Bowel obstruction 06/30/2017 07/10/2017 documented as of this encounter (statuses as of 01/22/2022) [facility] History of Past illness Narrative* Problem Noted Date Resolved Date Malnutrition of moderate degree 08/20/2020 12/08/2021 Pneumonia 07/19/2017 07/19/2017 Acute respiratory failure with hypoxia 7 07/10/2017 Aspiration pneumonitis 07/03/2017 7 Bowel obstruction 06/30/2017 07/10/2017 documented as of this encounter (statuses as of 01/31/2022) [facility] History of Past illness Narrative* Problem Noted Date Resolved Date Malnutrition of moderate degree 08/20/2020 12/08/2021 Pneumonia 07/19/2017 07/19/2017 Acute respiratory failure with hypoxia 7 07/10/2017 Aspiration pneumonitis 07/03/2017 7 Bowel obstruction 06/30/2017 07/10/2017 documented as of this encounter (statuses as of 02/06/2022) [facility] History of Past illness Narrative* Problem Noted Date Resolved Date Malnutrition of moderate degree 08/20/2020 12/08/2021 Pneumonia 07/19/2017 07/19/2017 Acute respiratory failure with hypoxia 7 07/10/2017 Aspiration pneumonitis 07/03/2017 7 Bowel obstruction 06/30/2017 07/10/2017 documented as of this encounter (statuses as of 02/26/2022) [facility] History of Past illness Narrative* Problem Noted Date Resolved Date Malnutrition of moderate degree 08/20/2020 12/08/2021 Pneumonia 07/19/2017 07/19/2017 Acute respiratory failure with hypoxia 7 07/10/2017 Aspiration pneumonitis 07/03/2017 7 Bowel obstruction 06/30/2017 07/10/2017 documented as of this encounter (statuses as of 02/27/2022) [facility] History of Past illness Narrative* Problem Noted Date Resolved Date Malnutrition of moderate degree 08/20/2020 12/08/2021 Pneumonia 07/19/2017 07/19/2017 Acute respiratory failure with hypoxia 7 07/10/2017 Aspiration pneumonitis 07/03/2017 7 Bowel obstruction 06/30/2017 07/10/2017 documented as of this encounter (statuses as of 02/27/2022) [facility] History of Past illness Narrative* Problem Noted Date Resolved Date Malnutrition of moderate degree 08/20/2020 12/08/2021 Pneumonia 07/19/2017 07/19/2017 Acute respiratory failure with hypoxia 7 07/10/2017 Aspiration pneumonitis 07/03/2017 7 Bowel obstruction 06/30/2017 07/10/2017 documented as of this encounter (statuses as of 03/08/2022) [facility] History of Past illness Narrative* Problem Noted Date Resolved Date Malnutrition of moderate degree 08/20/2020 12/08/2021 Pneumonia 07/19/2017 07/19/2017 Acute respiratory failure with hypoxia 7 07/10/2017 Aspiration pneumonitis 07/03/2017 7 Bowel obstruction 06/30/2017 07/10/2017 documented as of this encounter (statuses as of 03/21/2022) [facility] History of Past illness Narrative* Problem Noted Date Resolved Date Malnutrition of moderate degree 08/20/2020 12/08/2021 Pneumonia 07/19/2017 07/19/2017 Acute respiratory failure with hypoxia 7 07/10/2017 Aspiration pneumonitis 07/03/2017 7 Bowel obstruction 06/30/2017 07/10/2017 documented as of this encounter (statuses as of 03/21/2022) [facility] History of Past illness Narrative* Problem Noted Date Resolved Date Malnutrition of moderate degree 08/20/2020 12/08/2021 Pneumonia 07/19/2017 07/19/2017 Acute respiratory failure with hypoxia 7 07/10/2017 Aspiration pneumonitis 07/03/2017 7 Bowel obstruction 06/30/2017 07/10/2017 documented as of this encounter (statuses as of 03/25/2022) [facility] History of Past illness Narrative* Problem Noted Date Resolved Date Malnutrition of moderate degree 08/20/2020 12/08/2021 Pneumonia 07/19/2017 07/19/2017 Acute respiratory failure with hypoxia 7 07/10/2017 Aspiration pneumonitis 07/03/2017 7 Bowel obstruction 06/30/2017 07/10/2017 documented as of this encounter (statuses as of 03/28/2022) [facility] History of Past illness Narrative* Problem Noted Date Resolved Date Malnutrition of moderate degree 08/20/2020 12/08/2021 Pneumonia 07/19/2017 07/19/2017 Acute respiratory failure with hypoxia 7 07/10/2017 Aspiration pneumonitis 07/03/2017 7 Bowel obstruction 06/30/2017 07/10/2017 documented as of this encounter (statuses as of 04/11/2022) [facility] History of Past illness Narrative* Problem Noted Date Resolved Date Malnutrition of moderate degree 08/20/2020 12/08/2021 Pneumonia 07/19/2017 07/19/2017 Acute respiratory failure with hypoxia 7 07/10/2017 Aspiration pneumonitis 07/03/2017 7 Bowel obstruction 06/30/2017 07/10/2017 documented as of this encounter (statuses as of 04/18/2022) [facility] History of Past illness Narrative* Problem Noted Date Resolved Date Malnutrition of moderate degree 08/20/2020 12/08/2021 Pneumonia 07/19/2017 07/19/2017 Acute respiratory failure with hypoxia 7 07/10/2017 Aspiration pneumonitis 07/03/2017 7 Bowel obstruction 06/30/2017 07/10/2017 documented as of this encounter (statuses as of 04/30/2022) [facility] History of Past illness Narrative* Problem Noted Date Resolved Date Malnutrition of moderate degree 08/20/2020 12/08/2021 Pneumonia 07/19/2017 07/19/2017 Acute respiratory failure with hypoxia 7 07/10/2017 Aspiration pneumonitis 07/03/2017 7 Bowel obstruction 06/30/2017 07/10/2017 documented as of this encounter (statuses as of 05/06/2022) [facility] History of Past illness Narrative* Problem Noted Date Resolved Date Malnutrition of moderate degree 08/20/2020 12/08/2021 Pneumonia 07/19/2017 07/19/2017 Acute respiratory failure with hypoxia 7 07/10/2017 Aspiration pneumonitis 07/03/2017 7 Bowel obstruction 06/30/2017 07/10/2017 documented as of this encounter (statuses as of 05/15/2022) [facility] History of Past illness Narrative* Problem Noted Date Resolved Date Malnutrition of moderate degree 08/20/2020 12/08/2021 Pneumonia 07/19/2017 07/19/2017 Acute respiratory failure with hypoxia 7 07/10/2017 Aspiration pneumonitis 07/03/2017 7 Bowel obstruction 06/30/2017 07/10/2017 documented as of this encounter (statuses as of 06/06/2022) [facility] of Past illness Narrative* Problem Noted Date Resolved Date Malnutrition of moderate degree 08/20/2020 12/08/2021 Pneumonia 07/19/2017 07/19/2017 Acute respiratory failure with hypoxia 7 07/10/2017 Aspiration pneumonitis 07/03/2017 7 Bowel obstruction 06/30/2017 07/10/2017 documented as of this encounter (statuses as of 06/20/2022) [facility] of Past illness Narrative* Problem Noted Date Resolved Date Malnutrition of moderate degree 08/20/2020 12/08/2021 Pneumonia 07/19/2017 07/19/2017 Acute respiratory failure with hypoxia 7 07/10/2017 Aspiration pneumonitis 07/03/2017 7 Bowel obstruction 06/30/2017 07/10/2017 documented as of this encounter (statuses as of 07/15/2022) [facility] of Past illness Narrative* Problem Noted Date Resolved Date Malnutrition of moderate degree 08/20/2020 12/08/2021 Pneumonia 07/19/2017 07/19/2017 Acute respiratory failure with hypoxia 7 07/10/2017 Aspiration pneumonitis 07/03/2017 7 Bowel obstruction 06/30/2017 07/10/2017 documented as of this encounter (statuses as of 07/18/2022) [facility] History of Past illness Narrative* Problem Noted Date Resolved Date Malnutrition of moderate degree 08/20/2020 12/08/2021 Pneumonia 07/19/2017 07/19/2017 Acute respiratory failure with hypoxia 7 07/10/2017 Aspiration pneumonitis 07/03/2017 7 Bowel obstruction 06/30/2017 07/10/2017 documented as of this encounter (statuses as of 07/25/2022) [facility] History of Past illness Narrative* Problem Noted Date Resolved Date Malnutrition of moderate degree 08/20/2020 12/08/2021 Pneumonia 07/19/2017 07/19/2017 Acute respiratory failure with hypoxia 7 07/10/2017 Aspiration pneumonitis 07/03/2017 7 Bowel obstruction 06/30/2017 07/10/2017 documented as of this encounter (statuses as of 07/29/2022) [facility] History of Past illness Narrative* Problem Noted Date Resolved Date Malnutrition of moderate degree 08/20/2020 12/08/2021 Pneumonia 07/19/2017 07/19/2017 Acute respiratory failure with hypoxia 7 07/10/2017 Aspiration pneumonitis 07/03/2017 7 Bowel obstruction 06/30/2017 07/10/2017 documented as of this encounter (statuses as of 07/30/2022) [facility] of Past illness Narrative* Problem Noted Date Resolved Date Malnutrition of moderate degree 08/20/2020 12/08/2021 Pneumonia 07/19/2017 07/19/2017 Acute respiratory failure with hypoxia 7 07/10/2017 Aspiration pneumonitis 07/03/2017 7 Bowel obstruction 06/30/2017 07/10/2017 documented as of this encounter (statuses as of 08/19/2022) [facility] of Past illness Narrative* Problem Noted Date Resolved Date Malnutrition of moderate degree 08/20/2020 12/08/2021 Pneumonia 07/19/2017 07/19/2017 Acute respiratory failure with hypoxia 7 07/10/2017 Aspiration pneumonitis 07/03/2017 7 Bowel obstruction 06/30/2017 07/10/2017 documented as of this encounter (statuses as of 08/21/2022) [facility] of Past illness Narrative* Problem Noted Date Resolved Date Malnutrition of moderate degree 08/20/2020 12/08/2021 Pneumonia 07/19/2017 07/19/2017 Acute respiratory failure with hypoxia 7 07/10/2017 Aspiration pneumonitis 07/03/2017 7 Bowel obstruction 06/30/2017 07/10/2017 documented as of this encounter (statuses as of 08/27/2022) [facility] of Past illness Narrative* Problem Noted Date Resolved Date Malnutrition of moderate degree 08/20/2020 12/08/2021 Pneumonia 07/19/2017 07/19/2017 Acute respiratory failure with hypoxia 7 07/10/2017 Aspiration pneumonitis 07/03/2017 7 Bowel obstruction 06/30/2017 07/10/2017 documented as of this encounter (statuses as of 09/16/2022) [facility] of Past illness Narrative* Problem Noted Date Resolved Date Malnutrition of moderate degree 08/20/2020 12/08/2021 Pneumonia 07/19/2017 07/19/2017 Acute respiratory failure with hypoxia 7 07/10/2017 Aspiration pneumonitis 07/03/2017 7 Bowel obstruction 06/30/2017 07/10/2017 documented as of this encounter (statuses as of 09/18/2022) [facility] of Past illness Narrative* Problem Noted Date Resolved Date Malnutrition of moderate degree 08/20/2020 12/08/2021 Pneumonia 07/19/2017 07/19/2017 Acute respiratory failure with hypoxia 7 07/10/2017 Aspiration pneumonitis 07/03/2017 7 Bowel obstruction 06/30/2017 07/10/2017 documented as of this encounter (statuses as of 09/24/2022) [facility] of Past illness Narrative* Problem Noted Date Resolved Date Malnutrition of moderate degree 08/20/2020 12/08/2021 Pneumonia 07/19/2017 07/19/2017 Acute respiratory failure with hypoxia 7 07/10/2017 Aspiration pneumonitis 07/03/2017 7 Bowel obstruction 06/30/2017 07/10/2017 documented as of this encounter (statuses as of 09/27/2022) [facility] of Past illness Narrative* Problem Noted Date Resolved Date Malnutrition of moderate degree 08/20/2020 12/08/2021 Pneumonia 07/19/2017 07/19/2017 Acute respiratory failure with hypoxia 7 07/10/2017 Aspiration pneumonitis 07/03/2017 7 Bowel obstruction 06/30/2017 07/10/2017 documented as of this encounter (statuses as of 09/30/2022) [facility] of Past illness Narrative* Problem Noted Date Resolved Date Malnutrition of moderate degree 08/20/2020 12/08/2021 Pneumonia 07/19/2017 07/19/2017 Acute respiratory failure with hypoxia 7 07/10/2017 Aspiration pneumonitis 07/03/2017 7 Bowel obstruction 06/30/2017 07/10/2017 documented as of this encounter (statuses as of 10/09/2022) [facility] of Past illness Narrative* Problem Noted Date Resolved Date Malnutrition of moderate degree 08/20/2020 12/08/2021 Pneumonia 07/19/2017 07/19/2017 Acute respiratory failure with hypoxia 7 07/10/2017 Aspiration pneumonitis 07/03/2017 7 Bowel obstruction 06/30/2017 07/10/2017 documented as of this encounter (statuses as of 10/11/2022) [facility] of Past illness Narrative* Problem Noted Date Resolved Date Malnutrition of moderate degree 08/20/2020 12/08/2021 Pneumonia 07/19/2017 07/19/2017 Acute respiratory failure with hypoxia 7 07/10/2017 Aspiration pneumonitis 07/03/2017 7 Bowel obstruction 06/30/2017 07/10/2017 documented as of this encounter (statuses as of 10/21/2022) [facility] of Past illness Narrative* Problem Noted Date Resolved Date Malnutrition of moderate degree 08/20/2020 12/08/2021 Pneumonia 07/19/2017 07/19/2017 Acute respiratory failure with hypoxia 7 07/10/2017 Aspiration pneumonitis 07/03/2017 7 Bowel obstruction 06/30/2017 07/10/2017 documented as of this encounter (statuses as of 10/29/2022) [facility] illness Narrative* Problem Noted Date Resolved Date Malnutrition of moderate degree 08/20/2020 12/08/2021 Pneumonia 07/19/2017 07/19/2017 Acute respiratory failure with hypoxia 7 07/10/2017 Aspiration pneumonitis 07/03/2017 7 Bowel obstruction 06/30/2017 07/10/2017 documented as of this encounter (statuses as of 11/01/2022) [facility] History of Past illness Narrative* Problem Noted Date Resolved Date Malnutrition of moderate degree 08/20/2020 12/08/2021 Pneumonia 07/19/2017 07/19/2017 Acute respiratory failure with hypoxia 7 07/10/2017 Aspiration pneumonitis 07/03/2017 7 Bowel obstruction 06/30/2017 07/10/2017 documented as of this encounter (statuses as of 11/07/2022) [facility] History of Past illness Narrative* Problem Noted Date Resolved Date Malnutrition of moderate degree 08/20/2020 12/08/2021 Pneumonia 07/19/2017 07/19/2017 Acute respiratory failure with hypoxia 7 07/10/2017 Aspiration pneumonitis 07/03/2017 7 Bowel obstruction 06/30/2017 07/10/2017 documented as of this encounter (statuses as of 11/09/2022) [facility] History of Past illness Narrative* Problem Noted Date Resolved Date Malnutrition of moderate degree 08/20/2020 12/08/2021 Pneumonia 07/19/2017 07/19/2017 Acute respiratory failure with hypoxia 7 07/10/2017 Aspiration pneumonitis 07/03/2017 7 Bowel obstruction 06/30/2017 07/10/2017 documented as of this encounter (statuses as of 11/15/2022) [facility] History of Past illness Narrative* Problem Noted Date Resolved Date Malnutrition of moderate degree 08/20/2020 12/08/2021 Pneumonia 07/19/2017 07/19/2017 Acute respiratory failure with hypoxia 7 07/10/2017 Aspiration pneumonitis 07/03/2017 7 Bowel obstruction 06/30/2017 07/10/2017 documented as of this encounter (statuses as of 11/25/2022) [facility] History of Past illness Narrative* Problem Noted Date Resolved Date Malnutrition of moderate degree 08/20/2020 12/08/2021 Pneumonia 07/19/2017 07/19/2017 Acute respiratory failure with hypoxia 7 07/10/2017 Aspiration pneumonitis 07/03/2017 7 Bowel obstruction 06/30/2017 07/10/2017 documented as of this encounter (statuses as of 11/28/2022) [facility] History of Past illness Narrative* Problem Noted Date Resolved Date Malnutrition of moderate degree 08/20/2020 12/08/2021 Pneumonia 07/19/2017 07/19/2017 Acute respiratory failure with hypoxia 7 07/10/2017 Aspiration pneumonitis 07/03/2017 7 Bowel obstruction 06/30/2017 07/10/2017 documented as of this encounter (statuses as of 12/04/2022) [facility] History of Past illness Narrative* Problem Noted Date Resolved Date Malnutrition of moderate degree 08/20/2020 12/08/2021 Pneumonia 07/19/2017 07/19/2017 Acute respiratory failure with hypoxia 7 07/10/2017 Aspiration pneumonitis 07/03/2017 7 Bowel obstruction 06/30/2017 07/10/2017 documented as of this encounter (statuses as of 12/04/2022) [facility] History of Past illness Narrative* Problem Noted Date Resolved Date Malnutrition of moderate degree 08/20/2020 12/08/2021 Pneumonia 07/19/2017 07/19/2017 Acute respiratory failure with hypoxia 7 07/10/2017 Aspiration pneumonitis 07/03/2017 7 Bowel obstruction 06/30/2017 07/10/2017 documented as of this encounter (statuses as of 12/04/2022) [facility] History of Past illness Narrative* Problem Noted Date Resolved Date Malnutrition of moderate degree 08/20/2020 12/08/2021 Pneumonia 07/19/2017 07/19/2017 Acute respiratory failure with hypoxia 7 07/10/2017 Aspiration pneumonitis 07/03/2017 7 Bowel obstruction 06/30/2017 07/10/2017 documented as of this encounter (statuses as of 12/06/2022) [facility] History of Past illness Narrative* Problem Noted Date Resolved Date Malnutrition of moderate degree 08/20/2020 12/08/2021 Pneumonia 07/19/2017 07/19/2017 Acute respiratory failure with hypoxia 7 07/10/2017 Aspiration pneumonitis 07/03/2017 7 Bowel obstruction 06/30/2017 07/10/2017 documented as of this encounter (statuses as of 12/19/2022) [facility] History of Past illness Narrative* Problem Noted Date Resolved Date Malnutrition of moderate degree 08/20/2020 12/08/2021 Pneumonia 07/19/2017 07/19/2017 Acute respiratory failure with hypoxia 7 07/10/2017 Aspiration pneumonitis 07/03/2017 7 Bowel obstruction 06/30/2017 07/10/2017 documented as of this encounter (statuses as of 12/24/2022) [facility] History of Past illness Narrative* Problem Noted Date Resolved Date Malnutrition of moderate degree 08/20/2020 12/08/2021 Pneumonia 07/19/2017 07/19/2017 Acute respiratory failure with hypoxia 7 07/10/2017 Aspiration pneumonitis 07/03/2017 7 Bowel obstruction 06/30/2017 07/10/2017 documented as of this encounter (statuses as of 12/24/2022) [facility] History of Past illness Narrative* Problem Noted Date Resolved Date Malnutrition of moderate degree 08/20/2020 12/08/2021 Pneumonia 07/19/2017 07/19/2017 Acute respiratory failure with hypoxia 7 07/10/2017 Aspiration pneumonitis 07/03/2017 7 Bowel obstruction 06/30/2017 07/10/2017 documented as of this encounter (statuses as of 12/30/2022) [facility] History of Past illness Narrative* Problem Noted Date Resolved Date Malnutrition of moderate degree 08/20/2020 12/08/2021 Pneumonia 07/19/2017 07/19/2017 Acute respiratory failure with hypoxia 7 07/10/2017 Aspiration pneumonitis 07/03/2017 7 Bowel obstruction 06/30/2017 07/10/2017 documented as of this encounter (statuses as of 12/30/2022) [facility] History of Past illness Narrative* Problem Noted Date Resolved Date Malnutrition of moderate degree 08/20/2020 12/08/2021 Pneumonia 07/19/2017 07/19/2017 Acute respiratory failure with hypoxia 7 07/10/2017 Aspiration pneumonitis 07/03/2017 7 Bowel obstruction 06/30/2017 07/10/2017 documented as of this encounter (statuses as of 01/02/2023) [facility] History of Past illness Narrative* Problem Noted Date Resolved Date Malnutrition of moderate degree 08/20/2020 12/08/2021 Pneumonia 07/19/2017 07/19/2017 Acute respiratory failure with hypoxia 7 07/10/2017 Aspiration pneumonitis 07/03/2017 7 Bowel obstruction 06/30/2017 07/10/2017 documented as of this encounter (statuses as of 01/17/2023) [facility] History of Past illness Narrative* Problem Noted Date Resolved Date Malnutrition of moderate degree 08/20/2020 12/08/2021 Pneumonia 07/19/2017 07/19/2017 Acute respiratory failure with hypoxia 7 07/10/2017 Aspiration pneumonitis 07/03/2017 7 Bowel obstruction 06/30/2017 07/10/2017 documented as of this encounter (statuses as of 01/24/2023) [facility] History of Past illness Narrative* Problem Noted Date Resolved Date Malnutrition of moderate degree 08/20/2020 12/08/2021 Pneumonia 07/19/2017 07/19/2017 Acute respiratory failure with hypoxia 7 07/10/2017 Aspiration pneumonitis 07/03/2017 7 Bowel obstruction 06/30/2017 07/10/2017 documented as of this encounter (statuses as of 02/22/2023) [facility] History of Past illness Narrative* Problem Noted Date Resolved Date Malnutrition of moderate degree 08/20/2020 12/08/2021 Pneumonia 07/19/2017 07/19/2017 Acute respiratory failure with hypoxia 7 07/10/2017 Aspiration pneumonitis 07/03/2017 7 Bowel obstruction 06/30/2017 07/10/2017 documented as of this encounter (statuses as of 03/10/2023) [facility] History of Past illness Narrative* Problem Noted Date Diagnosed Date Resolved Date Malnutrition of moderate degree 08/20/2020 12/08/2021 Pneumonia 07/19/2017 07/19/2017 Acute respiratory failure with hypoxia 07/05/2017 07/10/2017 Aspiration pneumonitis 07/03/201707/10 Bowel obstruction 06/30/2017 07/10/2017 documented as of this encounter (statuses as of 03/27/2023) [facility] History of Past illness Narrative* Problem Noted Date Diagnosed Date Resolved Date Malnutrition of moderate degree 08/20/2020 12/08/2021 Pneumonia 07/19/2017 07/19/2017 Acute respiratory failure with hypoxia 07/05/2017 07/10/2017 Aspiration pneumonitis 07/03/201707/10 Bowel obstruction 06/30/2017 07/10/2017 documented as of this encounter (statuses as of 03/28/2023) [facility] History of Past illness Narrative* Problem Noted Date Diagnosed Date Resolved Date Malnutrition of moderate degree 08/20/2020 12/08/2021 Pneumonia 07/19/2017 07/19/2017 Acute respiratory failure with hypoxia 07/05/2017 07/10/2017 Aspiration pneumonitis 07/03/201707/10 Bowel obstruction 06/30/2017 07/10/2017 documented as of this encounter (statuses as of 04/01/2023) [facility] History of Past illness Narrative* Problem Noted Date Diagnosed Date Resolved Date Malnutrition of moderate degree 08/20/2020 12/08/2021 Pneumonia 07/19/2017 07/19/2017 Acute respiratory failure with hypoxia 07/05/2017 07/10/2017 Aspiration pneumonitis 07/03/201707/10 Bowel obstruction 06/30/2017 07/10/2017 documented as of this encounter (statuses as of 04/03/2023) [facility] History of Past illness Narrative* Problem Noted Date Diagnosed Date Resolved Date Malnutrition of moderate degree 08/20/2020 12/08/2021 Pneumonia 07/19/2017 07/19/2017 Acute respiratory failure with hypoxia 07/05/2017 07/10/2017 Aspiration pneumonitis 07/03/201707/10 Bowel obstruction 06/30/2017 07/10/2017 documented as of this encounter (statuses as of 04/10/2023) [facility] History of Past illness Narrative* Problem Noted Date Diagnosed Date Resolved Date Malnutrition of moderate degree 08/20/2020 12/08/2021 Pneumonia 07/19/2017 07/19/2017 Acute respiratory failure with hypoxia 07/05/2017 07/10/2017 Aspiration pneumonitis 07/03/201707/10 Bowel obstruction 06/30/2017 07/10/2017 documented as of this encounter (statuses as of 04/18/2023) [facility] History of Past illness Narrative* Problem Noted Date Diagnosed Date Resolved Date Malnutrition of moderate degree 08/20/2020 12/08/2021 Pneumonia 07/19/2017 07/19/2017 Acute respiratory failure with hypoxia 07/05/2017 07/10/2017 Aspiration pneumonitis 07/03/201707/10 Bowel obstruction 06/30/2017 07/10/2017 documented as of this encounter (statuses as of 04/18/2023) [facility] History of Past illness Narrative* Problem Noted Date Diagnosed Date Resolved Date Malnutrition of moderate degree 08/20/2020 12/08/2021 Pneumonia 07/19/2017 07/19/2017 Acute respiratory failure with hypoxia 07/05/2017 07/10/2017 Aspiration pneumonitis 07/03/201707/10 Bowel obstruction 06/30/2017 07/10/2017 documented as of this encounter (statuses as of 04/24/2023) [facility] History of Past illness Narrative* Problem Noted Date Diagnosed Date Resolved Date Malnutrition of moderate degree 08/20/2020 12/08/2021 Pneumonia 07/19/2017 07/19/2017 Acute respiratory failure with hypoxia 07/05/2017 07/10/2017 Aspiration pneumonitis 07/03/201707/10 Bowel obstruction 06/30/2017 07/10/2017 documented as of this encounter (statuses as of 05/06/2023) [facility] History of Past illness Narrative* Problem Noted Date Diagnosed Date Resolved Date Malnutrition of moderate degree 08/20/2020 12/08/2021 Pneumonia 07/19/2017 07/19/2017 Acute respiratory failure with hypoxia 07/05/2017 07/10/2017 Aspiration pneumonitis 07/03/201707/10 Bowel obstruction 06/30/2017 07/10/2017 documented as of this encounter (statuses as of 05/08/2023) [facility] History of Past illness Narrative* Problem Noted Date Diagnosed Date Resolved Date Malnutrition of moderate degree 08/20/2020 12/08/2021 Pneumonia 07/19/2017 07/19/2017 Acute respiratory failure with hypoxia 07/05/2017 07/10/2017 Aspiration pneumonitis 07/03/201707/10 Bowel obstruction 06/30/2017 07/10/2017 documented as of this encounter (statuses as of 05/08/2023) [facility] History of Past illness Narrative* Problem Noted Date Diagnosed Date Resolved Date Malnutrition of moderate degree 08/20/2020 12/08/2021 Pneumonia 07/19/2017 07/19/2017 Acute respiratory failure with hypoxia 07/05/2017 07/10/2017 Aspiration pneumonitis 07/03/201707/10 Bowel obstruction 06/30/2017 07/10/2017 documented as of this encounter (statuses as of 05/09/2023) [facility] History of Past illness Narrative* Problem Noted Date Diagnosed Date Resolved Date Malnutrition of moderate degree 08/20/2020 12/08/2021 Pneumonia 07/19/2017 07/19/2017 Acute respiratory failure with hypoxia 07/05/2017 07/10/2017 Aspiration pneumonitis 07/03/201707/10 Bowel obstruction 06/30/2017 07/10/2017 documented as of this encounter (statuses as of 05/09/2023) [facility] History of Past illness Narrative* Problem Noted Date Diagnosed Date Resolved Date Malnutrition of moderate degree 08/20/2020 12/08/2021 Pneumonia 07/19/2017 07/19/2017 Acute respiratory failure with hypoxia 07/05/2017 07/10/2017 Aspiration pneumonitis 07/03/201707/10 Bowel obstruction 06/30/2017 07/10/2017 documented as of this encounter (statuses as of 05/10/2023) [facility] History of Past illness Narrative* Problem Noted Date Diagnosed Date Resolved Date Malnutrition of moderate degree 08/20/2020 12/08/2021 Pneumonia 07/19/2017 07/19/2017 Acute respiratory failure with hypoxia 07/05/2017 07/10/2017 Aspiration pneumonitis 07/03/201707/10 Bowel obstruction 06/30/2017 07/10/2017 documented as of this encounter (statuses as of 05/13/2023) [facility] History of Past illness Narrative* Problem Noted Date Diagnosed Date Resolved Date Malnutrition of moderate degree 08/20/2020 12/08/2021 Pneumonia 07/19/2017 07/19/2017 Acute respiratory failure with hypoxia 07/05/2017 07/10/2017 Aspiration pneumonitis 07/03/201707/10 Bowel obstruction 06/30/2017 07/10/2017 documented as of this encounter (statuses as of 05/13/2023) [facility] History of Past illness Narrative* Problem Noted Date Diagnosed Date Resolved Date Malnutrition of moderate degree 08/20/2020 12/08/2021 Pneumonia 07/19/2017 07/19/2017 Acute respiratory failure with hypoxia 07/05/2017 07/10/2017 Aspiration pneumonitis 07/03/201707/10 Bowel obstruction 06/30/2017 07/10/2017 documented as of this encounter (statuses as of 05/16/2023) [facility] History of Past illness Narrative* Problem Noted Date Diagnosed Date Resolved Date Malnutrition of moderate degree 08/20/2020 12/08/2021 Pneumonia 07/19/2017 07/19/2017 Acute respiratory failure with hypoxia 07/05/2017 07/10/2017 Aspiration pneumonitis 07/03/201707/10 Bowel obstruction 06/30/2017 07/10/2017 documented as of this encounter (statuses as of 05/20/2023) [facility] History of Past illness Narrative* Problem Noted Date Diagnosed Date Resolved Date Malnutrition of moderate degree 08/20/2020 12/08/2021 Pneumonia 07/19/2017 07/19/2017 Acute respiratory failure with hypoxia 07/05/2017 07/10/2017 Aspiration pneumonitis 07/03/201707/10 Bowel obstruction 06/30/2017 07/10/2017 documented as of this encounter (statuses as of 05/30/2023) [facility] History of Past illness Narrative* Problem Noted Date Diagnosed Date Resolved Date Malnutrition of moderate degree 08/20/2020 12/08/2021 Pneumonia 07/19/2017 07/19/2017 Acute respiratory failure with hypoxia 07/05/2017 07/10/2017 Aspiration pneumonitis 07/03/201707/10 Bowel obstruction 06/30/2017 07/10/2017 documented as of this encounter (statuses as of 06/03/2023) [facility] History of Past illness Narrative* Problem Noted Date Diagnosed Date Resolved Date Malnutrition of moderate degree 08/20/2020 12/08/2021 Pneumonia 07/19/2017 07/19/2017 Acute respiratory failure with hypoxia 07/05/2017 07/10/2017 Aspiration pneumonitis 07/03/201707/10 Bowel obstruction 06/30/2017 07/10/2017 documented as of this encounter (statuses as of 06/05/2023) [facility] History of Past illness Narrative* Problem Noted Date Diagnosed Date Resolved Date Malnutrition of moderate degree 08/20/2020 12/08/2021 Pneumonia 07/19/2017 07/19/2017 Acute respiratory failure with hypoxia 07/05/2017 07/10/2017 Aspiration pneumonitis 07/03/201707/10 Bowel obstruction 06/30/2017 07/10/2017 documented as of this encounter (statuses as of 06/09/2023) [facility] History of Past illness Narrative* Problem Noted Date Diagnosed Date Resolved Date Malnutrition of moderate degree 08/20/2020 12/08/2021 Pneumonia 07/19/2017 07/19/2017 Acute respiratory failure with hypoxia 07/05/2017 07/10/2017 Aspiration pneumonitis 07/03/201707/10 Bowel obstruction 06/30/2017 07/10/2017 documented as of this encounter (statuses as of 06/27/2023) [facility] History of Past illness Narrative* Problem Noted Date Diagnosed Date Resolved Date Malnutrition of moderate degree 08/20/2020 12/08/2021 Pneumonia 07/19/2017 07/19/2017 Acute respiratory failure with hypoxia 07/05/2017 07/10/2017 Aspiration pneumonitis 07/03/201707/10 Bowel obstruction 06/30/2017 07/10/2017 documented as of this encounter (statuses as of 06/30/2023) [facility] History of Past illness Narrative* Problem Noted Date Diagnosed Date Resolved Date Malnutrition of moderate degree 08/20/2020 12/08/2021 Pneumonia 07/19/2017 07/19/2017 Acute respiratory failure with hypoxia 07/05/2017 07/10/2017 Aspiration pneumonitis 07/03/201707/10 Bowel obstruction 06/30/2017 07/10/2017 documented as of this encounter (statuses as of 07/01/2023) [facility] History of Past illness Narrative* Problem Noted Date Diagnosed Date Resolved Date Malnutrition of moderate degree 08/20/2020 12/08/2021 Pneumonia 07/19/2017 07/19/2017 Acute respiratory failure with hypoxia 07/05/2017 07/10/2017 Aspiration pneumonitis 07/03/201707/10 Bowel obstruction 06/30/2017 07/10/2017 documented as of this encounter (statuses as of 07/09/2023) [facility] History of Past illness Narrative* Problem Noted Date Diagnosed Date Resolved Date Malnutrition of moderate degree 08/20/2020 12/08/2021 Pneumonia 07/19/2017 07/19/2017 Acute respiratory failure with hypoxia 07/05/2017 07/10/2017 Aspiration pneumonitis 07/03/201707/10 Bowel obstruction 06/30/2017 07/10/2017 documented as of this encounter (statuses as of 07/15/2023) [facility] History of Past illness Narrative* Problem Noted Date Diagnosed Date Resolved Date Malnutrition of moderate degree 08/20/2020 12/08/2021 Pneumonia 07/19/2017 07/19/2017 Acute respiratory failure with hypoxia 07/05/2017 07/10/2017 Aspiration pneumonitis 07/03/201707/10 Bowel obstruction 06/30/2017 07/10/2017 documented as of this encounter (statuses as of 07/16/2023) [facility] History of Past illness Narrative* Problem Noted Date Diagnosed Date Resolved Date Malnutrition of moderate degree 08/20/2020 12/08/2021 Pneumonia 07/19/2017 07/19/2017 Acute respiratory failure with hypoxia 07/05/2017 07/10/2017 Aspiration pneumonitis 07/03/201707/10 Bowel obstruction 06/30/2017 07/10/2017 documented as of this encounter (statuses as of 07/19/2023) [facility] History of Past illness Narrative* Problem Noted Date Diagnosed Date Resolved Date Malnutrition of moderate degree 08/20/2020 12/08/2021 Pneumonia 07/19/2017 07/19/2017 Acute respiratory failure with hypoxia 07/05/2017 07/10/2017 Aspiration pneumonitis 07/03/201707/10 Bowel obstruction 06/30/2017 07/10/2017 documented as of this encounter (statuses as of 07/20/2023) [facility] History of Past illness Narrative* Problem Noted Date Diagnosed Date Resolved Date Malnutrition of moderate degree 08/20/2020 12/08/2021 Pneumonia 07/19/2017 07/19/2017 Acute respiratory failure with hypoxia 07/05/2017 07/10/2017 Aspiration pneumonitis 07/03/201707/10 Bowel obstruction 06/30/2017 07/10/2017 documented as of this encounter (statuses as of 07/20/2023) [facility] History of Past illness Narrative* Problem Noted Date Diagnosed Date Resolved Date Malnutrition of moderate degree 08/20/2020 12/08/2021 Pneumonia 07/19/2017 07/19/2017 Acute respiratory failure with hypoxia 07/05/2017 07/10/2017 Aspiration pneumonitis 07/03/201707/10 Bowel obstruction 06/30/2017 07/10/2017 documented as of this encounter (statuses as of 07/20/2023) [facility] History of Past illness Narrative* Problem Noted Date Diagnosed Date Resolved Date Malnutrition of moderate degree 08/20/2020 12/08/2021 Pneumonia 07/19/2017 07/19/2017 Acute respiratory failure with hypoxia 07/05/2017 07/10/2017 Aspiration pneumonitis 07/03/201707/10 Bowel obstruction 06/30/2017 07/10/2017 documented as of this encounter (statuses as of 07/20/2023) [facility] History of Past illness Narrative* Problem Noted Date Diagnosed Date Resolved Date Malnutrition of moderate degree 08/20/2020 12/08/2021 Pneumonia 07/19/2017 07/19/2017 Acute respiratory failure with hypoxia 07/05/2017 07/10/2017 Aspiration pneumonitis 07/03/201707/10 Bowel obstruction 06/30/2017 07/10/2017 documented as of this encounter (statuses as of 07/20/2023) [facility] History of Past illness Narrative* Problem Noted Date Diagnosed Date Resolved Date Malnutrition of moderate degree 08/20/2020 12/08/2021 Pneumonia 07/19/2017 07/19/2017 Acute respiratory failure with hypoxia 07/05/2017 07/10/2017 Aspiration pneumonitis 07/03/201707/10 Bowel obstruction 06/30/2017 07/10/2017 documented as of this encounter (statuses as of 07/20/2023) [facility] History of Past illness Narrative* Problem Noted Date Diagnosed Date Resolved Date Malnutrition of moderate degree 08/20/2020 12/08/2021 Pneumonia 07/19/2017 07/19/2017 Acute respiratory failure with hypoxia 07/05/2017 07/10/2017 Aspiration pneumonitis 07/03/201707/10 Bowel obstruction 06/30/2017 07/10/2017 documented as of this encounter (statuses as of 07/20/2023) [facility] History of Past illness Narrative* Problem Noted Date Diagnosed Date Resolved Date Malnutrition of moderate degree 08/20/2020 12/08/2021 Pneumonia 07/19/2017 07/19/2017 Acute respiratory failure with hypoxia 07/05/2017 07/10/2017 Aspiration pneumonitis 07/03/201707/10 Bowel obstruction 06/30/2017 07/10/2017 documented as of this encounter (statuses as of 07/20/2023) [facility] History of Past illness Narrative* Problem Noted Date Diagnosed Date Resolved Date Malnutrition of moderate degree 08/20/2020 12/08/2021 Pneumonia 07/19/2017 07/19/2017 Acute respiratory failure with hypoxia 07/05/2017 07/10/2017 Aspiration pneumonitis 07/03/201707/10 Bowel obstruction 06/30/2017 07/10/2017 documented as of this encounter (statuses as of 07/20/2023) [facility] History of Past illness Narrative* Problem Noted Date Diagnosed Date Resolved Date Malnutrition of moderate degree 08/20/2020 12/08/2021 Pneumonia 07/19/2017 07/19/2017 Acute respiratory failure with hypoxia 07/05/2017 07/10/2017 Aspiration pneumonitis 07/03/201707/10 Bowel obstruction 06/30/2017 07/10/2017 documented as of this encounter (statuses as of 07/25/2023) [facility] History of Past illness Narrative* Problem Noted Date Diagnosed Date Resolved Date Malnutrition of moderate degree 08/20/2020 12/08/2021 Pneumonia 07/19/2017 07/19/2017 Acute respiratory failure with hypoxia 07/05/2017 07/10/2017 Aspiration pneumonitis 07/03/201707/10 Bowel obstruction 06/30/2017 07/10/2017 documented as of this encounter (statuses as of 08/01/2023) [facility] History of Past illness Narrative* Problem Noted Date Diagnosed Date Resolved Date Malnutrition of moderate degree 08/20/2020 12/08/2021 Pneumonia 07/19/2017 07/19/2017 Acute respiratory failure with hypoxia 07/05/2017 07/10/2017 Aspiration pneumonitis 07/03/201707/10 Bowel obstruction 06/30/2017 07/10/2017 documented as of this encounter (statuses as of 08/26/2023) [facility]12-[facility]-2020 History of Past illness Narrative* Problem Noted Date Diagnosed Date Resolved Date Malnutrition of moderate degree 08/20/2020 12/08/2021 Pneumonia 07/19/2017 07/19/2017 Acute respiratory failure with hypoxia 07/05/2017 07/10/2017 Aspiration pneumonitis 07/03/201707/10 Bowel obstruction 06/30/2017 07/10/2017 documented as of this encounter (statuses as of 10/27/2023) [facility]12-[facility] History of Past illness Narrative* Problem Noted Date Diagnosed Date Resolved Date Malnutrition of moderate degree 08/20/2020 12/08/2021 Pneumonia 07/19/2017 07/19/2017 Acute respiratory failure with hypoxia 07/05/2017 07/10/2017 Aspiration pneumonitis 07/03/201707/10 Bowel obstruction 06/30/2017 07/10/2017 documented as of this encounter (statuses as of 10/28/2023) [facility]12-[facility] History of Past illness Narrative* Problem Noted Date Diagnosed Date Resolved Date Malnutrition of moderate degree 08/20/2020 12/08/2021 Pneumonia 07/19/2017 07/19/2017 Acute respiratory failure with hypoxia 07/05/2017 07/10/2017 Aspiration pneumonitis 07/03/201707/10 Bowel obstruction 06/30/2017 07/10/2017 documented as of this encounter (statuses as of 10/30/2023) [facility] History of Past illness Narrative* Problem Noted Date Diagnosed Date Resolved Date Malnutrition of moderate degree 08/20/2020 12/08/2021 Pneumonia 07/19/2017 07/19/2017 Acute respiratory failure with hypoxia 07/05/2017 07/10/2017 Aspiration pneumonitis 07/03/201707/10 Bowel obstruction 06/30/2017 07/10/2017 documented as of this encounter (statuses as of 10/30/2023) [facility] History of Past illness Narrative* Problem Noted Date Diagnosed Date Resolved Date Malnutrition of moderate degree 08/20/2020 12/08/2021 Pneumonia 07/19/2017 07/19/2017 Acute respiratory failure with hypoxia 07/05/2017 07/10/2017 Aspiration pneumonitis 07/03/201707/10 Bowel obstruction 06/30/2017 07/10/2017 documented as of this encounter (statuses as of 10/31/2023) [facility] History of Past illness Narrative* Problem Noted Date Diagnosed Date Resolved Date Malnutrition of moderate degree 08/20/2020 12/08/2021 Pneumonia 07/19/2017 07/19/2017 Acute respiratory failure with hypoxia 07/05/2017 07/10/2017 Aspiration pneumonitis 07/03/201707/10 Bowel obstruction 06/30/2017 07/10/2017 documented as of this encounter (statuses as of 10/31/2023) [facility] History of Past illness Narrative* Problem Noted Date Diagnosed Date Resolved Date Malnutrition of moderate degree 08/20/2020 12/08/2021 Pneumonia 07/19/2017 07/19/2017 Acute respiratory failure with hypoxia 07/05/2017 07/10/2017 Aspiration pneumonitis 07/03/201707/10 Bowel obstruction 06/30/2017 07/10/2017 documented as of this encounter (statuses as of 11/08/2023) [facility]11-[facility]-2017 Fall risk [id number]/11/21[facility] risk assessmentW[employer] Work Phone: [phone]) 802-293911-04-2017 History of Past illness Narrative* Problem Noted Date Resolved Date Pneumonia 07/19/2017 07/19/2017 Acute respiratory failure with hypoxia 7 07/10/2017 Aspiration pneumonitis 07/03/2017 7 Bowel obstruction 06/30/2017 07/10/2017 documented as of this encounter (statuses as of 12/05/2021) [facility]05-[facility]-2017 Fall risk [id number]/05/16[facility]NHRMCVCE risk assessmentWrem[employer] Work Phone: Evaluation note* Diagnosis Situational depression- Primary Adjustment disorder with depressed mood Malnutrition of moderate degree (HCC) Malnutrition of moderate degree [facility] Diagnosis Malignant neoplasm of sigmoid colon (HCC)- Primary Malignant neoplasm of sigmoid colon [facility]* Diagnosis Preop examination- Primary Preoperative examination, unspecified DDD (degenerative disc disease), lumbar Degeneration of lumbar or lumbosacral intervertebral disc Coronary artery disease involving false pass coronary artery of false pass heart without angina pectoris Paroxysmal atrial fibrillation (HCC) Atrial fibrillation Elevated hemoglobin A1c Other abnormal blood chemistry Hyperlipidemia, mixed Mixed hyperlipidemia [facility] Diagnosis Malignant neoplasm of sigmoid colon (HCC)- Primary Malignant neoplasm of sigmoid colon [facility]* Diagnosis Rectal cancer (HCC) Malignant neoplasm of rectum [facility] Diagnosis Rectal cancer (HCC) Malignant neoplasm of rectum [facility] Diagnosis Malignant neoplasm of sigmoid colon (HCC)- Primary Malignant neoplasm of sigmoid colon [facility] Diagnosis Rectal cancer (HCC)- Primary Malignant neoplasm of rectum 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 Diagnosis Bilateral carotid artery stenosis Occlusion and stenosis of carotid artery without mention of cerebral infarction Positional lightheadedness Dizziness and giddiness [facility] Diagnosis Falls frequently- Primary Personal history of fall [facility] Diagnosis Falls frequently- Primary Personal history of fall [facility] Diagnosis Essential hypertension- Primary Unspecified essential hypertension Bilateral carotid artery stenosis Occlusion and stenosis of carotid artery without mention of cerebral infarction Chronic midline low back pain with right-sided sciatica Falls frequently Personal history of fall Generalized weakness Other malaise and fatigue [facility] Diagnosis Malignant neoplasm of sigmoid colon (HCC)- Primary Malignant neoplasm of sigmoid colon [facility] Diagnosis Fever, unspecified fever cause- Primary [facility] Diagnosis Malignant neoplasm of prostate (HCC)- Primary Malignant neoplasm of prostate [facility] Diagnosis Skin abrasion- Primary Abrasion or friction burn of other, multiple, and unspecified sites, without mention of infection Dysuria Acute cystitis with hematuria Acute cystitis Arthritis of right hip Arthritis, lumbar spine Lumbosacral spondylosis without myelopathy [facility] Diagnosis Right leg pain- Primary Pain in limb Lumbar pain Lumbago Spinal stenosis, lumbar region with neurogenic claudication Frequent nocturnal awakening Other sleep disturbances Sleep apnea-like behavior Insomnia, unspecified type Cognitive impairment Unspecified persistent mental disorders due to conditions classified elsewhere [facility] Diagnosis Malignant neoplasm of sigmoid colon (HCC) Malignant neoplasm of sigmoid colon [facility] Diagnosis Ventral hernia without obstruction or [...] obstruction or gangrene [facility] Essential hypertension- Primary Unspecified essential hypertension Hyperlipidemia, mixed Mixed hyperlipidemia Elevated hemoglobin A1c Other abnormal blood chemistry Coronary artery disease involving false pass coronary artery of false pass heart without angina pectoris Paroxysmal atrial fibrillation [...] single bacterial disease [facility] Diagnosis Hyperkalemia- Primary Hyperpotassemia [facility] Diagnosis Rectal cancer (HCC)- Primary Malignant neoplasm of rectum Abnormal CT of the abdomen Nonspecific (abnormal) findings on radiological and other examination of abdominal area, including retroperitoneum [facility] Diagnosis Dermatitis- Primary Contact dermatitis and other eczema, due to unspecified cause [facility] Diagnosis Right leg pain- Primary [...] area, including retroperitoneum [facility] Diagnosis Fall, initial encounter- Primary [facility] Diagnosis Spinal stenosis of lumbar region, unspecified whether neurogenic claudication present- Primary [facility]* Diagnosis Rectal cancer (HCC) Malignant neoplasm of rectum Elevated CEA Elevated carcinoembryonic antigen [CEA] Abnormal CT scan Other nonspecific (abnormal) findings on radiological and other examinations of body structure [facility]* Diagnosis Malignant neoplasm of sigmoid colon (HCC)- Primary Malignant neoplasm of sigmoid colon 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 [facility] Diagnosis Situational depression- Primary Adjustment disorder with depressed mood SALAS (generalized anxiety disorder) Generalized anxiety disorder Cognitive impairment, mild, so stated Mild cognitive impairment, so stated [facility] Diagnosis 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 [facility] Diagnosis Malignant neoplasm of sigmoid colon (HCC)- Primary Malignant neoplasm of sigmoid colon [facility] Diagnosis Cognitive impairment- Primary Unspecified persistent mental disorders due to conditions classified elsewhere [facility] Diagnosis Medicare annual wellness visit, subsequent- Primary Routine general medical examination at a health care facility Essential hypertension Unspecified essential hypertension Hyperlipidemia, mixed Mixed hyperlipidemia Elevated hemoglobin A1c Other abnormal blood chemistry Paroxysmal atrial fibrillation (HCC) Atrial fibrillation Coronary artery disease involving false pass coronary artery of false pass heart without angina pectoris Bilateral carotid artery [...] neoplasm of prostate [facility] Diagnosis Malignant neoplasm of rectum (HCC)- Primary Malignant neoplasm of rectum [facility] Diagnosis Malignant neoplasm of rectum (HCC)- Primary Malignant neoplasm of rectum [facility] Diagnosis Acute encephalopathy- Primary Encephalopathy, unspecified Dementia without behavioral disturbance (HCC) Dementia, unspecified, without behavioral disturbance Closed nondisplaced fracture of styloid process of left ulna, initial encounter Acute cystitis without hematuria Acute cystitis Cellulitis of skin Cellulitis and abscess of unspecified site documented [facility] Diagnosis Malignant neoplasm of sigmoid colon (HCC)- Primary Malignant neoplasm of sigmoid colon documented [facility] Diagnosis Malignant neoplasm of sigmoid colon (HCC)- Primary Malignant neoplasm of sigmoid colon [facility]* Diagnosis Closed fracture of distal end of left humerus with routine healing, unspecified fracture morphology, subsequent encounter- Primary Bilateral carotid artery stenosis- Primary Occlusion and stenosis of carotid artery without mention of cerebral infarction [facility] Diagnosis Upper respiratory virus- Primary Acute upper respiratory infections of unspecified site Acute cough [facility]* Diagnosis Dementia, unspecified dementia severity, unspecified dementia type, unspecified whether behavioral, psychotic, or mood disturbance or anxiety (HCC)- Primary [facility]* Diagnosis Rectal cancer (HCC) Malignant neoplasm of rectum [facility] Diagnosis Malignant neoplasm of rectum (HCC) Malignant neoplasm of rectum [facility] Diagnosis Malignant neoplasm of rectum (HCC) Malignant neoplasm of rectum [facility]* Diagnosis Dementia without behavioral disturbance (HCC) Dementia, unspecified, without behavioral disturbance Spinal stenosis of lumbar region with neurogenic claudication Spinal stenosis, lumbar region, with neurogenic claudication [facility] Diagnosis Rectal cancer (HCC) Malignant neoplasm of rectum Abnormal CT of the abdomen Nonspecific (abnormal) findings on radiological and other examination of abdominal area, including retroperitoneum [facility]* Diagnosis Rectal cancer (HCC) Malignant neoplasm of rectum documented in this encounter [facility] note* Diagnosis Elbow effusion, left- Primary SALAS (generalized anxiety disorder) Generalized anxiety disorder documented in this encounter [facility] note* Diagnosis Polypharmacy- Primary Encounter for long-term (current) use of other medications Dementia, unspecified dementia severity, unspecified dementia type, unspecified whether behavioral, psychotic, or mood disturbance or anxiety (HCC) Falls frequently Personal history of fall Alcohol dependence with uncomplicated intoxication (HCC) Acute alcoholic intoxication in alcoholism, unspecified Driving safety issue Other specified personal history presenting hazards to health documented in this encounter [facility] note* Diagnosis Dysuria- Primary Urinary tract infection with hematuria, site unspecified [facility] Diagnosis Pain of right hip- Primary documented in this encounter [facility] note* Diagnosis SALAS (generalized anxiety disorder) Generalized anxiety disorder documented in this encounter [facility] note* Diagnosis Dementia, unspecified dementia severity, unspecified dementia type, unspecified whether behavioral, psychotic, or mood disturbance or anxiety (HCC) Alcohol dependence with uncomplicated intoxication (HCC) Acute alcoholic intoxication in alcoholism, unspecified documented in this encounter [facility] for referral (narrative)* Outpatient Procedure (Routine) - Authorized Specialty Diagnoses / Procedures Referred By Remi Referred To Contact [facility] Diagnoses Bilateral carotid artery stenosis Procedures US CAROTID ARTERIES [facility] DUPLEX SCAN EXTRACRANIAL ART COMPL BI STUDY Kaye Oneal DO [address] [place] [address] [facility] [address] [place] [address] Referral ID Status Reason Start Date Expiration Date Visits Requested Visits Authorized [id number] Authorized Auto-Generat ed Referral 03/26/2022 03/26/2023 1 1 [facility] for referral (narrative)* Diagnostic Procedure Only (Routine) - Closed Specialty Diagnoses / Procedures Referred By Remi rocha Referred To Contact MOLECULAR & FUNCTIONAL IMAGING Diagnoses Rectal cancer (HCC) Elevated CEA Abnormal CT scan Procedures NM PET/CT SKULL-THIGH INITIAL PET IMAGING CT ATTENUATION SKULL BASE MID-THIGH Tameka Marshall APRN.[employer] DOUGHNUT [address] [place] [address] Molecular & Functional Imaging [address] [place] [address] Referral ID Status Reason Start Date Expiration Date V isits Requested Visits Authorized [id number] Closed Auto-Generate d Referral 11/14/2022 12/14/2023 1 1 [facility] for referral (narrative)* Diagnostic Procedure Only (Routine) - Pending Review Specialty Diagnoses / Procedures Referred By Remi rocha Referred To Contact XR IMAGING Diagnoses Pain of right hip Procedures XR HIP GENERAL 3V PELV/AP/LAT RIGHT RADEX HIP UNILATERAL WITH PELVIS 2-3 VIEWS Vishal Jones MD [address] [place] [address] Xr Imaging [id number] Referral ID Status Reason Start Date Expiration Date Visits Requested Visits Authorized [id number] Pending Review Auto-Generat ed Referral 10/28/2023 11/26/2024 1 1 [facility] for visit Narrative* Diagnostic Procedure Only (Routine) - Closed Specialty Diagnoses / Procedures Referred By Remi rocha Referred To Contact MOLECULAR & FUNCTIONAL IMAGING Diagnoses Rectal cancer (HCC) Elevated CEA Abnormal CT scan Procedures NM PET/CT SKULL-THIGH INITIAL PET IMAGING CT ATTENUATION SKULL BASE MID-THIGH Tameka Marshall APRN.[employer]OUGHNUT [address] [place] [address] Molecular & Functional Imaging [address] [place], [place] [id number] Referral ID Status Reason Start Date Expiration Date V isits Requested Visits Authorized [id number] Closed Auto-Generate d Referral 11/14/2022 12/14/2023 1 1 [facility] Summary Purpose Family History No Family History Records FoundNo Family History Records FoundNo Family History Records FoundNo Family History Records Found Advance Directives Documents on File Type Date Recorded Patient Handkerchief Cutter Expl anation Advance Directive(s) 07/20/2017 8:54 AM Latest Code Status on File Code Status Date Activated Date Inactivated Comments Full Code 08/18/2020 2:14 PM 08/19/2020 12:20 PM Documents on File Type Date Recorded Patient Handkerchief Cutter Expl anation Advance Directive(s) 08/19/2020 2:53 PM Advance Directive(s) 08/05/2020 3:02 AM Advance Directive(s) 08/03/2020 8:57 AM Advance Directive(s) 12/23/2019 5:57 AM Advance Directive(s) 08/06/2019 7:25 AM Advance Directive(s) 07/20/2017 8:54 AM Advance Directive(s) 07/02/2017 4:27 PM Documents on File Type Date Recorded Patient Handkerchief Cutter Expl anation Advance Directive(s) 08/19/2020 2:53 PM [...] Documents on File Type Date Recorded Patient Handkerchief Cutter Expl anation Advance Directive(s) 07/20/2017 8:54 AM Latest Code Status on File Code Status Date Activated Date Inactivated Comments Full Code 08/18/2020 2:14 PM 08/19/2020 12:20 PM Latest Code Status on File Code Status Date Activated Date Inactivated Comments Full Code 08/18/2020 2:14 PM 08/19/2020 12:20 PM Reason for Referral Specialty Diagnoses / Procedures Referred By Remi t Referred To Contact CT IMAGING Diagnoses Rectal cancer (HCC) Procedures CT CHEST W IVCON DIAGNOSTIC COMPUTED TOMOGRAPHY THORAX W/CONTRAST Tameka Marshall APRN.[employer]NUT [address] [place] [address] Ct Imaging Referral ID Status Reason Start Date Expiration Date V isits Requested Visits Authorized [id number] Closed Auto-Generate d Referral 11/14/2021 12/14/2022 1 1 Specialty Diagnoses / Procedures Referred By Contac t Referred To Contact CT IMAGING Diagnoses Rectal cancer (HCC) Procedures CT ABD/PEL W IVCON CT ABD & PELVIS W/CONTRAST Tameka Marshall APRN.[employer]NUT [address] [place] [address] Ct Imaging Referral ID Status Reason Start Date Expiration Date V isits Requested Visits Authorized [id number] Closed Auto-Generate d Referral 11/14/2021 12/14/2022 1 1 Referral ID Status Reason Start Date Expiration Date Visits Requested Visits Authorized [id number] Authorized Auto-Generat ed Referral 03/21/2022 04/20/2023 1 1 Referral ID Status Reason Start Date Expiration Date Visits Requested Visits Authorized [id number] Authorized Auto-Generat ed Referral 03/21/2022 04/20/2023 1 1 Specialty Diagnoses / Procedures Referred By Contac t Referred To Contact Orthopedics Diagnoses Arthritis of right hip Arthritis, lumbar spine Procedures CONSULT TO ORTHOPAEDICS OFFICE/OUTPATIENT [facility] 60-74 MINUTES Vishal Jones MD [address] [place] [address] Referral ID Status Reason Start Date Expiration Date Visits Requested Visits Authorized [id number] Authorized PCP Requested Referral 07/24/2022 07/24/2023 1 1 Specialty Diagnoses / Procedures Referred By Contac t Referred To Contact CT IMAGING Diagnoses Rectal cancer (HCC) Abnormal CT of the abdomen Procedures CT ABD/PEL W IVCON CT ABD & PELVIS W/CONTRAST Tameka Marshall APRN.[employer] [address] [place] [address] Ct Imaging Referral ID Status Reason Start Date Expiration Date Visits Requested Visits Authorized [id number] Authorized Auto-Generat ed Referral 10/09/2022 11/08/2023 1 1 Specialty Diagnoses / Procedures Referred By Contac t Referred To Contact Neurosurgery Diagnoses Spinal stenosis of lumbar region, unspecified whether neurogenic claudication present Procedures CONSULT TO NEUROSURGERY Mikhail Liu Jr., MD [address] [address] Referral ID Status Reason Start Date Expiration Date Visits Requested Visits Authorized [id number] Ref Not Required PCP Requested Referral 11/28/2022 02/26/2023 3 3 Specialty Diagnoses / Procedures Referred By Contac t Referred To Contact Diagnoses 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) Procedures CT SIM PLANNING RADIATION ONCOLOGY THER RAD SIMULAJ-AIDED FIELD SETTING COMPLEX Clement Werner MD, [address] [place] [address] Referral ID Status Reason Start Date Expiration Date Visits Requested Visits Authorized [id number] Pending Review PCP Requested Referral 12/30/2022 03/25/2023 1 1 Specialty Diagnoses / Procedures Referred By Contac t Referred To Contact CT IMAGING Diagnoses Malignant neoplasm of rectum (HCC) Procedures CT CHEST W IVCON DIAGNOSTIC COMPUTED TOMOGRAPHY THORAX W/CONTRAST Sam Greenberg, DO [address] [place] [address] Ct Imaging Referral ID Status Reason Start Date Expiration Date Visits Requested Visits Authorized [id number] Authorized Auto-Generat ed Referral 04/01/2023 04/30/2024 1 1 Specialty Diagnoses / Procedures Referred By Contac t Referred To Contact CT IMAGING Diagnoses Malignant neoplasm of rectum (HCC) Procedures CT ABD/PEL W IVCON CT ABD & PELVIS W/CONTRAST Sam Greenberg, DO [address] [place] [address] Ct Imaging Referral ID Status Reason Start Date Expiration Date Visits Requested Visits Authorized [id number] Authorized Auto-Generat ed Referral 04/01/2023 04/30/2024 1 1 Specialty Diagnoses / Procedures Referred By Contac t Referred To Contact Neurology Diagnoses Dementia, unspecified dementia severity, unspecified dementia type, unspecified whether behavioral, psychotic, or mood disturbance or anxiety (HCC) Procedures CONSULT TO NEUROLOGY OFFICE/OUTPATIENT [facility] 60-74 MINUTES Mikhail Liu Jr., MD [address] [address] Referral ID Status Reason Start Date Expiration Date Visits Requested Visits Authorized [id number] Authorized PCP Requested Referral 06/29/2024 1 1 Specialty Diagnoses / Procedures Referred By Contac t Referred To Contact CT IMAGING Diagnoses Malignant neoplasm of rectum (HCC) Procedures CT CHEST W IVCON DIAGNOSTIC COMPUTED TOMOGRAPHY THORAX W/CONTRAST Sam Greenberg Aide, DO [address] [place] [address] Ct Imaging [facility] Referral ID Status Reason Start Date Expiration Date V isits Requested Visits Authorized [id number] Closed Auto-Generate d Referral 04/01/2023 04/30/2024 1 1 Specialty Diagnoses / Procedures Referred By Contac t Referred To Contact CT IMAGING Diagnoses Malignant neoplasm of rectum (HCC) Procedures CT ABD/PEL W IVCON CT ABD & PELVIS W/CONTRAST Sam Greenberg Aide, DO [address] [place] [address] Ct Imaging [facility] Referral ID Status Reason Start Date Expiration Date V isits Requested Visits Authorized [id number] Closed Auto-Generate d Referral 04/01/2023 04/30/2024 1 1 Referral ID Status Reason Start Date Expiration Date V isits Requested Visits Authorized [id number] Closed Auto-Generate d Referral 02/25/2023 03/26/2024 1 1 Referral ID Status Reason Start Date Expiration Date V isits Requested Visits Authorized [id number] Closed Auto-Generate d Referral 02/25/2023 03/26/2024 1 1 Specialty Diagnoses / Procedures Referred By Contac t Referred To Contact MR IMAGING Diagnoses Spinal stenosis of lumbar region with neurogenic claudication Procedures MRI LUMBAR SPINE WO IVCON MRI SPINAL CANAL LUMBAR W/O CONTRAST MATERIAL Mikhail Liu Jr., MD [address] [address] [place] [address] Referral ID Status Reason Start Date Expiration Date V isits Requested Visits Authorized [id number] Closed Auto-Generate d Referral 06/24/2022 07/24/2023 1 1 Specialty Diagnoses / Procedures Referred By Contac t Referred To Contact MR IMAGING Diagnoses Dementia without behavioral disturbance (HCC) Procedures MRI BRAIN WO IVCON MRI BRAIN BRAIN STEM W/O CONTRAST MATERIAL Mikhail Liu Jr., MD [address] [facility] [address] [place] [address] [place] [address] Referral ID Status Reason Start Date Expiration Date V isits Requested Visits Authorized [id number] Closed Auto-Generate d Referral 06/24/2022 07/24/2023 1 1 Specialty Diagnoses / Procedures Referred By Contac t Referred To Contact CT IMAGING Diagnoses Rectal cancer (HCC) Abnormal CT of the abdomen Procedures CT ABD/PEL W IVCON CT ABD & PELVIS W/CONTRAST Tameka Marshall, [employer]LO[employer]ER [employer]LE.[employer]UT [address] [place] [address] [place] [address] Referral ID Status Reason Start Date Expiration Date V isits Requested Visits Authorized [id number] Closed Auto-Generate d Referral 10/09/2022 11/08/2023 1 1 Specialty Diagnoses / Procedures Referred By Contac t Referred To Contact CT IMAGING Diagnoses Rectal cancer (HCC) Procedures CT CHEST W IVCON DIAGNOSTIC COMPUTED TOMOGRAPHY THORAX W/CONTRAST Tameka Marshall, FLOOR LAYER TILE.[employer] DOUGHNUT [address] [place] [address] [place] [address] Referral ID Status Reason Start Date Expiration Date V isits Requested Visits Authorized [id number] Closed Auto-Generate d Referral 03/21/2022 04/20/2023 1 1 Specialty Diagnoses / Procedures Referred By Contac t Referred To Contact CT IMAGING Diagnoses Rectal cancer (HCC) Procedures CT ABD/PEL W IVCON CT ABD & PELVIS W/CONTRAST Rolando, Tameka, FLOOR LAYER TILE.[employer] [address] [place] [address] [place] [address] Referral ID Status Reason Start Date Expiration Date V isits Requested Visits Authorized [id number] Closed Auto-Generate d Referral 03/21/2022 04/20/2023 1 1 Specialty Diagnoses / Procedures Referred By Contac t Referred To Contact Orthopedics Diagnoses Elbow effusion, left Procedures CONSULT TO ORTHOPAEDICS OFFICE/OUTPATIENT NEW HIGH MDM 60-74 MINUTES Ren Chua, FLO[employer]LE.[employer]NUT [address] [place] [address] Referral ID Status Reason Start Date Expiration Date Visits Requested Visits Authorized [id number] Authorized PCP Requested Referral 3 07/31/2024 1 1 Specialty Diagnoses / Procedures Referred By Contac t Referred To Contact MR IMAGING Diagnoses Dementia, unspecified dementia severity, unspecified dementia type, unspecified whether behavioral, psychotic, or mood disturbance or anxiety (HCC) Alcohol dependence with uncomplicated intoxication (HCC) Procedures MRI 3D POST PROCESSING 3D RENDERING W/INTERP&POSTPROC DIFF WORK STATION Chapincito Tomlin MD [address] [place] [address] Mr Imaging [place] [address] Referral ID Status Reason Start Date Expiration Date Visits Requested Visits Authorized [id number] Authorized Auto-Generat ed Referral 3 09/24/2024 1 1 Specialty Diagnoses / Procedures Referred By Contac t Referred To Contact MR IMAGING Diagnoses Dementia, unspecified dementia severity, unspecified dementia type, unspecified whether behavioral, psychotic, or mood disturbance or anxiety (HCC) Alcohol dependence with uncomplicated intoxication (HCC) Procedures MRI BRAIN W QUANT WO IVCON MRI BRAIN BRAIN STEM W/O CONTRAST MATERIAL Chapincito Tomlin MD [address] [place] [address] Mr Imaging [place] [address] Referral ID Status Reason Start Date Expiration Date Visits Requested Visits Authorized [id number] Authorized Auto-Generat ed Referral 3 09/24/2024 1 1 Additional Source Comments (unrecognized sect ion and content) No Status Records FoundNo Status Records FoundNo Status Records FoundNo Status Records Found INFORMATION SOURCE (unrecogn ized section and content) DATE CREATED AUTHOR AUTHOR'S ORGANIZ ATION 08/07/2022 [facility] DATE CREATED AUTHOR AUTHOR'S ORGANIZ ATION 10/31/2023 [facility] DATE CREATED AUTHOR AUTHOR'S ORGANIZ ATION 11/01/2023 [facility] Source Comments (unrecognize d section and content) In the event this informatio n is protected by the Federal Confidentiality of Alcohol and Drug Abuse Patient Records regulations: The Federal rules restrict any use of the information to criminally investigate or prosecute any alcohol or drug abuse patient.[facility] the event this information is protected by the Federal Confidentiality of Alcohol and Drug Abuse Patient Records regulations: The Federal rules restrict any use of the information to criminally investigate or prosecute any alcohol or drug abuse patient.[facility] Hospital[facility] the event this information is protected by the Federal Confidentiality of Alcohol and Drug Abuse Patient Records regulations: The Federal rules restrict any use of the information to criminally investigate or prosecute any alcohol or drug abuse patient.[facility] Hospital[facility] the event this information is protected by the Federal Confidentiality of Alcohol and Drug Abuse Patient Records regulations: The Federal rules restrict any use of the information to criminally investigate or prosecute any alcohol or drug abuse patient.[facility] HospitalIn the event this information is protected by the Federal Confidentiality of Alcohol and Drug Abuse Patient Records regulations: The Federal rules restrict any use of the information to criminally investigate or prosecute any alcohol or drug abuse patient.[facility] HospitalIn the event this information is protected by the Federal Confidentiality of Alcohol and Drug Abuse Patient Records regulations: The Federal rules restrict any use of the information to criminally investigate or prosecute any alcohol or drug abuse patient.[facility] HospitalIn the event this information is protected by the Federal Confidentiality of Alcohol and Drug Abuse Patient Records regulations: The Federal rules restrict any use of the information to criminally investigate or prosecute any alcohol or drug abuse patient.[facility] HospitalIn the event this information is protected by the Federal Confidentiality of Alcohol and Drug Abuse Patient Records regulations: The Federal rules restrict any use of the information to criminally investigate or prosecute any alcohol or drug abuse patient.[facility] HospitalIn the event this information is protected by the Federal Confidentiality of Alcohol and Drug Abuse Patient Records regulations: The Federal rules restrict any use of the information to criminally investigate or prosecute any alcohol or drug abuse patient.[facility] HospitalIn the event this information is protected by the Federal Confidentiality of Alcohol and Drug Abuse Patient Records regulations: The Federal rules restrict any use of the information to criminally investigate or prosecute any alcohol or drug abuse patient.[facility] HospitalIn the event this information is protected by the Federal Confidentiality of Alcohol and Drug Abuse Patient Records regulations: The Federal rules restrict any use of the information to criminally investigate or prosecute any alcohol or drug abuse patient.[facility] HospitalIn the event this information is protected by the Federal Confidentiality of Alcohol and Drug Abuse Patient Records regulations: The Federal rules restrict any use of the information to criminally investigate or prosecute any alcohol or drug abuse patient.[facility] HospitalIn the event this information is protected by the Federal Confidentiality of Alcohol and Drug Abuse Patient Records regulations: The Federal rules restrict any use of the information to criminally investigate or prosecute any alcohol or drug abuse patient.[facility] HospitalIn the event this information is protected by the Federal Confidentiality of Alcohol and Drug Abuse Patient Records regulations: The Federal rules restrict any use of the information to criminally investigate or prosecute any alcohol or drug abuse patient.[facility] HospitalIn the event this information is protected by the Federal Confidentiality of Alcohol and Drug Abuse Patient Records regulations: The Federal rules restrict any use of the information to criminally investigate or prosecute any alcohol or drug abuse patient.[facility] HospitalIn the event this information is protected by the Federal Confidentiality of Alcohol and Drug Abuse Patient Records regulations: The Federal rules restrict any use of the information to criminally investigate or prosecute any alcohol or drug abuse patient.[facility] HospitalIn the event this information is protected by the Federal Confidentiality of Alcohol and Drug Abuse Patient Records regulations: The Federal rules restrict any use of the information to criminally investigate or prosecute any alcohol or drug abuse patient.[facility] HospitalIn the event this information is protected by the Federal Confidentiality of Alcohol and Drug Abuse Patient Records regulations: The Federal rules restrict any use of the information to criminally investigate or prosecute any alcohol or drug abuse patient.[facility] HospitalIn the event this information is protected by the Federal Confidentiality of Alcohol and Drug Abuse Patient Records regulations: The Federal rules restrict any use of the information to criminally investigate or prosecute any alcohol or drug abuse patient.[facility] HospitalIn the event this information is protected by the Federal Confidentiality of Alcohol and Drug Abuse Patient Records regulations: The Federal rules restrict any use of the information to criminally investigate or prosecute any alcohol or drug abuse patient.[facility] HospitalIn the event this information is protected by the Federal Confidentiality of Alcohol and Drug Abuse Patient Records regulations: The Federal rules restrict any use of the information to criminally investigate or prosecute any alcohol or drug abuse patient.[facility] HospitalIn the event this information is protected by the Federal Confidentiality of Alcohol and Drug Abuse Patient Records regulations: The Federal rules restrict any use of the information to criminally investigate or prosecute any alcohol or drug abuse patient.[facility] HospitalIn the event this information is protected by the Federal Confidentiality of Alcohol and Drug Abuse Patient Records regulations: The Federal rules restrict any use of the information to criminally investigate or prosecute any alcohol or drug abuse patient.[facility] HospitalIn the event this information is protected by the Federal Confidentiality of Alcohol and Drug Abuse Patient Records regulations: The Federal rules restrict any use of the information to criminally investigate or prosecute any alcohol or drug abuse patient.[facility] HospitalIn the event this information is protected by the Federal Confidentiality of Alcohol and Drug Abuse Patient Records regulations: The Federal rules restrict any use of the information to criminally investigate or prosecute any alcohol or drug abuse patient.[facility] HospitalIn the event this information is protected by the Federal Confidentiality of Alcohol and Drug Abuse Patient Records regulations: The Federal rules restrict any use of the information to criminally investigate or prosecute any alcohol or drug abuse patient.[facility] HospitalIn the event this information is protected by the Federal Confidentiality of Alcohol and Drug Abuse Patient Records regulations: The Federal rules restrict any use of the information to criminally investigate or prosecute any alcohol or drug abuse patient.[facility] HospitalIn the event this information is protected by the Federal Confidentiality of Alcohol and Drug Abuse Patient Records regulations: The Federal rules restrict any use of the information to criminally investigate or prosecute any alcohol or drug abuse patient.[facility] HospitalIn the event this information is protected by the Federal Confidentiality of Alcohol and Drug Abuse Patient Records regulations: The Federal rules restrict any use of the information to criminally investigate or prosecute any alcohol or drug abuse patient.[facility] HospitalIn the event this information is protected by the Federal Confidentiality of Alcohol and Drug Abuse Patient Records regulations: The Federal rules restrict any use of the information to criminally investigate or prosecute any alcohol or drug abuse patient.[facility] HospitalIn the event this information is protected by the Federal Confidentiality of Alcohol and Drug Abuse Patient Records regulations: The Federal rules restrict any use of the information to criminally investigate or prosecute any alcohol or drug abuse patient.[facility] HospitalIn the event this information is protected by the Federal Confidentiality of Alcohol and Drug Abuse Patient Records regulations: The Federal rules restrict any use of the information to criminally investigate or prosecute any alcohol or drug abuse patient.[facility] HospitalIn the event this information is protected by the Federal Confidentiality of Alcohol and Drug Abuse Patient Records regulations: The Federal rules restrict any use of the information to criminally investigate or prosecute any alcohol or drug abuse patient.[facility] HospitalIn the event this information is protected by the Federal Confidentiality of Alcohol and Drug Abuse Patient Records regulations: The Federal rules restrict any use of the information to criminally investigate or prosecute any alcohol or drug abuse patient.[facility] HospitalIn the event this information is protected by the Federal Confidentiality of Alcohol and Drug Abuse Patient Records regulations: The Federal rules restrict any use of the information to criminally investigate or prosecute any alcohol or drug abuse patient.[facility] HospitalIn the event this information is protected by the Federal Confidentiality of Alcohol and Drug Abuse Patient Records regulations: The Federal rules restrict any use of the information to criminally investigate or prosecute any alcohol or drug abuse patient.[facility] HospitalIn the event this information is protected by the Federal Confidentiality of Alcohol and Drug Abuse Patient Records regulations: The Federal rules restrict any use of the information to criminally investigate or prosecute any alcohol or drug abuse patient.[facility] HospitalIn the event this information is protected by the Federal Confidentiality of Alcohol and Drug Abuse Patient Records regulations: The Federal rules restrict any use of the information to criminally investigate or prosecute any alcohol or drug abuse patient.[facility] HospitalIn the event this information is protected by the Federal Confidentiality of Alcohol and Drug Abuse Patient Records regulations: The Federal rules restrict any use of the information to criminally investigate or prosecute any alcohol or drug abuse patient.[facility] HospitalIn the event this information is protected by the Federal Confidentiality of Alcohol and Drug Abuse Patient Records regulations: The Federal rules restrict any use of the information to criminally investigate or prosecute any alcohol or drug abuse patient.[facility] HospitalIn the event this information is protected by the Federal Confidentiality of Alcohol and Drug Abuse Patient Records regulations: The Federal rules restrict any use of the information to criminally investigate or prosecute any alcohol or drug abuse patient.[facility] HospitalIn the event this information is protected by the Federal Confidentiality of Alcohol and Drug Abuse Patient Records regulations: The Federal rules restrict any use of the information to criminally investigate or prosecute any alcohol or drug abuse patient.[facility] HospitalIn the event this information is protected by the Federal Confidentiality of Alcohol and Drug Abuse Patient Records regulations: The Federal rules restrict any use of the information to criminally investigate or prosecute any alcohol or drug abuse patient.[facility] HospitalIn the event this information is protected by the Federal Confidentiality of Alcohol and Drug Abuse Patient Records regulations: The Federal rules restrict any use of the information to criminally investigate or prosecute any alcohol or drug abuse patient.[facility] HospitalIn the event this information is protected by the Federal Confidentiality of Alcohol and Drug Abuse Patient Records regulations: The Federal rules restrict any use of the information to criminally investigate or prosecute any alcohol or drug abuse patient.[facility] HospitalIn the event this information is protected by the Federal Confidentiality of Alcohol and Drug Abuse Patient Records regulations: The Federal rules restrict any use of the information to criminally investigate or prosecute any alcohol or drug abuse patient.[facility] HospitalIn the event this information is protected by the Federal Confidentiality of Alcohol and Drug Abuse Patient Records regulations: The Federal rules restrict any use of the information to criminally investigate or prosecute any alcohol or drug abuse patient.[facility] HospitalIn the event this information is protected by the Federal Confidentiality of Alcohol and Drug Abuse Patient Records regulations: The Federal rules restrict any use of the information to criminally investigate or prosecute any alcohol or drug abuse patient.[facility] HospitalIn the event this information is protected by the Federal Confidentiality of Alcohol and Drug Abuse Patient Records regulations: The Federal rules restrict any use of the information to criminally investigate or prosecute any alcohol or drug abuse patient.[facility] HospitalIn the event this information is protected by the Federal Confidentiality of Alcohol and Drug Abuse Patient Records regulations: The Federal rules restrict any use of the information to criminally investigate or prosecute any alcohol or drug abuse patient.[facility] HospitalIn the event this information is protected by the Federal Confidentiality of Alcohol and Drug Abuse Patient Records regulations: The Federal rules restrict any use of the information to criminally investigate or prosecute any alcohol or drug abuse patient.[facility] HospitalIn the event this information is protected by the Federal Confidentiality of Alcohol and Drug Abuse Patient Records regulations: The Federal rules restrict any use of the information to criminally investigate or prosecute any alcohol or drug abuse patient.[facility] HospitalIn the event this information is protected by the Federal Confidentiality of Alcohol and Drug Abuse Patient Records regulations: The Federal rules restrict any use of the information to criminally investigate or prosecute any alcohol or drug abuse patient.[facility] HospitalIn the event this information is protected by the Federal Confidentiality of Alcohol and Drug Abuse Patient Records regulations: The Federal rules restrict any use of the information to criminally investigate or prosecute any alcohol or drug abuse patient.[facility] HospitalIn the event this information is protected by the Federal Confidentiality of Alcohol and Drug Abuse Patient Records regulations: The Federal rules restrict any use of the information to criminally investigate or prosecute any alcohol or drug abuse patient.[facility] HospitalIn the event this information is protected by the Federal Confidentiality of Alcohol and Drug Abuse Patient Records regulations: The Federal rules restrict any use of the information to criminally investigate or prosecute any alcohol or drug abuse patient.[facility] HospitalIn the event this information is protected by the Federal Confidentiality of Alcohol and Drug Abuse Patient Records regulations: The Federal rules restrict any use of the information to criminally investigate or prosecute any alcohol or drug abuse patient.[facility] HospitalIn the event this information is protected by the Federal Confidentiality of Alcohol and Drug Abuse Patient Records regulations: The Federal rules restrict any use of the information to criminally investigate or prosecute any alcohol or drug abuse patient.[facility] HospitalIn the event this information is protected by the Federal Confidentiality of Alcohol and Drug Abuse Patient Records regulations: The Federal rules restrict any use of the information to criminally investigate or prosecute any alcohol or drug abuse patient.[facility] HospitalIn the event this information is protected by the Federal Confidentiality of Alcohol and Drug Abuse Patient Records regulations: The Federal rules restrict any use of the information to criminally investigate or prosecute any alcohol or drug abuse patient.[facility] HospitalIn the event this information is protected by the Federal Confidentiality of Alcohol and Drug Abuse Patient Records regulations: The Federal rules restrict any use of the information to criminally investigate or prosecute any alcohol or drug abuse patient.[facility] HospitalIn the event this information is protected by the Federal Confidentiality of Alcohol and Drug Abuse Patient Records regulations: The Federal rules restrict any use of the information to criminally investigate or prosecute any alcohol or drug abuse patient.[facility] HospitalIn the event this information is protected by the Federal Confidentiality of Alcohol and Drug Abuse Patient Records regulations: The Federal rules restrict any use of the information to criminally investigate or prosecute any alcohol or drug abuse patient.[facility] HospitalIn the event this information is protected by the Federal Confidentiality of Alcohol and Drug Abuse Patient Records regulations: The Federal rules restrict any use of the information to criminally investigate or prosecute any alcohol or drug abuse patient.[facility] HospitalIn the event this information is protected by the Federal Confidentiality of Alcohol and Drug Abuse Patient Records regulations: The Federal rules restrict any use of the information to criminally investigate or prosecute any alcohol or drug abuse patient.[facility] HospitalIn the event this information is protected by the Federal Confidentiality of Alcohol and Drug Abuse Patient Records regulations: The Federal rules restrict any use of the information to criminally investigate or prosecute any alcohol or drug abuse patient.[facility] HospitalIn the event this information is protected by the Federal Confidentiality of Alcohol and Drug Abuse Patient Records regulations: The Federal rules restrict any use of the information to criminally investigate or prosecute any alcohol or drug abuse patient.[facility] HospitalIn the event this information is protected by the Federal Confidentiality of Alcohol and Drug Abuse Patient Records regulations: The Federal rules restrict any use of the information to criminally investigate or prosecute any alcohol or drug abuse patient.[facility] HospitalIn the event this information is protected by the Federal Confidentiality of Alcohol and Drug Abuse Patient Records regulations: The Federal rules restrict any use of the information to criminally investigate or prosecute any alcohol or drug abuse patient.[facility] HospitalIn the event this information is protected by the Federal Confidentiality of Alcohol and Drug Abuse Patient Records regulations: The Federal rules restrict any use of the information to criminally investigate or prosecute any alcohol or drug abuse patient.[facility] HospitalIn the event this information is protected by the Federal Confidentiality of Alcohol and Drug Abuse Patient Records regulations: The Federal rules restrict any use of the information to criminally investigate or prosecute any alcohol or drug abuse patient.[facility] HospitalIn the event this information is protected by the Federal Confidentiality of Alcohol and Drug Abuse Patient Records regulations: The Federal rules restrict any use of the information to criminally investigate or prosecute any alcohol or drug abuse patient.[facility] HospitalIn the event this information is protected by the Federal Confidentiality of Alcohol and Drug Abuse Patient Records regulations: The Federal rules restrict any use of the information to criminally investigate or prosecute any alcohol or drug abuse patient.[facility] HospitalIn the event this information is protected by the Federal Confidentiality of Alcohol and Drug Abuse Patient Records regulations: The Federal rules restrict any use of the information to criminally investigate or prosecute any alcohol or drug abuse patient.[facility] HospitalIn the event this information is protected by the Federal Confidentiality of Alcohol and Drug Abuse Patient Records regulations: The Federal rules restrict any use of the information to criminally investigate or prosecute any alcohol or drug abuse patient.[facility] HospitalIn the event this information is protected by the Federal Confidentiality of Alcohol and Drug Abuse Patient Records regulations: The Federal rules restrict any use of the information to criminally investigate or prosecute any alcohol or drug abuse patient.[facility] HospitalIn the event this information is protected by the Federal Confidentiality of Alcohol and Drug Abuse Patient Records regulations: The Federal rules restrict any use of the information to criminally investigate or prosecute any alcohol or drug abuse patient.[facility] HospitalIn the event this information is protected by the Federal Confidentiality of Alcohol and Drug Abuse Patient Records regulations: The Federal rules restrict any use of the information to criminally investigate or prosecute any alcohol or drug abuse patient.[facility] HospitalIn the event this information is protected by the Federal Confidentiality of Alcohol and Drug Abuse Patient Records regulations: The Federal rules restrict any use of the information to criminally investigate or prosecute any alcohol or drug abuse patient.[facility] HospitalIn the event this information is protected by the Federal Confidentiality of Alcohol and Drug Abuse Patient Records regulations: The Federal rules restrict any use of the information to criminally investigate or prosecute any alcohol or drug abuse patient.[facility] HospitalIn the event this information is protected by the Federal Confidentiality of Alcohol and Drug Abuse Patient Records regulations: The Federal rules restrict any use of the information to criminally investigate or prosecute any alcohol or drug abuse patient.[facility] HospitalIn the event this information is protected by the Federal Confidentiality of Alcohol and Drug Abuse Patient Records regulations: The Federal rules restrict any use of the information to criminally investigate or prosecute any alcohol or drug abuse patient.[facility] HospitalIn the event this information is protected by the Federal Confidentiality of Alcohol and Drug Abuse Patient Records regulations: The Federal rules restrict any use of the information to criminally investigate or prosecute any alcohol or drug abuse patient.[facility] HospitalIn the event this information is protected by the Federal Confidentiality of Alcohol and Drug Abuse Patient Records regulations: The Federal rules restrict any use of the information to criminally investigate or prosecute any alcohol or drug abuse patient.[facility] HospitalIn the event this information is protected by the Federal Confidentiality of Alcohol and Drug Abuse Patient Records regulations: The Federal rules restrict any use of the information to criminally investigate or prosecute any alcohol or drug abuse patient.[facility] HospitalIn the event this information is protected by the Federal Confidentiality of Alcohol and Drug Abuse Patient Records regulations: The Federal rules restrict any use of the information to criminally investigate or prosecute any alcohol or drug abuse patient.[facility] HospitalIn the event this information is protected by the Federal Confidentiality of Alcohol and Drug Abuse Patient Records regulations: The Federal rules restrict any use of the information to criminally investigate or prosecute any alcohol or drug abuse patient.[facility] HospitalIn the event this information is protected by the Federal Confidentiality of Alcohol and Drug Abuse Patient Records regulations: The Federal rules restrict any use of the information to criminally investigate or prosecute any alcohol or drug abuse patient.[facility] HospitalIn the event this information is protected by the Federal Confidentiality of Alcohol and Drug Abuse Patient Records regulations: The Federal rules restrict any use of the information to criminally investigate or prosecute any alcohol or drug abuse patient.[facility] HospitalIn the event this information is protected by the Federal Confidentiality of Alcohol and Drug Abuse Patient Records regulations: The Federal rules restrict any use of the information to criminally investigate or prosecute any alcohol or drug abuse patient.[facility] HospitalIn the event this information is protected by the Federal Confidentiality of Alcohol and Drug Abuse Patient Records regulations: The Federal rules restrict any use of the information to criminally investigate or prosecute any alcohol or drug abuse patient.[facility] HospitalIn the event this information is protected by the Federal Confidentiality of Alcohol and Drug Abuse Patient Records regulations: The Federal rules restrict any use of the information to criminally investigate or prosecute any alcohol or drug abuse patient.[facility] HospitalIn the event this information is protected by the Federal Confidentiality of Alcohol and Drug Abuse Patient Records regulations: The Federal rules restrict any use of the information to criminally investigate or prosecute any alcohol or drug abuse patient.[facility] HospitalIn the event this information is protected by the Federal Confidentiality of Alcohol and Drug Abuse Patient Records regulations: The Federal rules restrict any use of the information to criminally investigate or prosecute any alcohol or drug abuse patient.[facility] HospitalIn the event this information is protected by the Federal Confidentiality of Alcohol and Drug Abuse Patient Records regulations: The Federal rules restrict any use of the information to criminally investigate or prosecute any alcohol or drug abuse patient.[facility] HospitalIn the event this information is protected by the Federal Confidentiality of Alcohol and Drug Abuse Patient Records regulations: The Federal rules restrict any use of the information to criminally investigate or prosecute any alcohol or drug abuse patient.[facility] HospitalIn the event this information is protected by the Federal Confidentiality of Alcohol and Drug Abuse Patient Records regulations: The Federal rules restrict any use of the information to criminally investigate or prosecute any alcohol or drug abuse patient.[facility] HospitalIn the event this information is protected by the Federal Confidentiality of Alcohol and Drug Abuse Patient Records regulations: The Federal rules restrict any use of the information to criminally investigate or prosecute any alcohol or drug abuse patient.[facility] HospitalIn the event this information is protected by the Federal Confidentiality of Alcohol and Drug Abuse Patient Records regulations: The Federal rules restrict any use of the information to criminally investigate or prosecute any alcohol or drug abuse patient.[facility] HospitalIn the event this information is protected by the Federal Confidentiality of Alcohol and Drug Abuse Patient Records regulations: The Federal rules restrict any use of the information to criminally investigate or prosecute any alcohol or drug abuse patient.[facility] HospitalIn the event this information is protected by the Federal Confidentiality of Alcohol and Drug Abuse Patient Records regulations: The Federal rules restrict any use of the information to criminally investigate or prosecute any alcohol or drug abuse patient.[facility] HospitalIn the event this information is protected by the Federal Confidentiality of Alcohol and Drug Abuse Patient Records regulations: The Federal rules restrict any use of the information to criminally investigate or prosecute any alcohol or drug abuse patient.[facility] HospitalIn the event this information is protected by the Federal Confidentiality of Alcohol and Drug Abuse Patient Records regulations: The Federal rules restrict any use of the information to criminally investigate or prosecute any alcohol or drug abuse patient.[facility] HospitalIn the event this information is protected by the Federal Confidentiality of Alcohol and Drug Abuse Patient Records regulations: The Federal rules restrict any use of the information to criminally investigate or prosecute any alcohol or drug abuse patient.[facility] HospitalIn the event this information is protected by the Federal Confidentiality of Alcohol and Drug Abuse Patient Records regulations: The Federal rules restrict any use of the information to criminally investigate or prosecute any alcohol or drug abuse patient.[facility] HospitalIn the event this information is protected by the Federal Confidentiality of Alcohol and Drug Abuse Patient Records regulations: The Federal rules restrict any use of the information to criminally investigate or prosecute any alcohol or drug abuse patient.[facility] HospitalIn the event this information is protected by the Federal Confidentiality of Alcohol and Drug Abuse Patient Records regulations: The Federal rules restrict any use of the information to criminally investigate or prosecute any alcohol or drug abuse patient.[facility] HospitalIn the event this information is protected by the Federal Confidentiality of Alcohol and Drug Abuse Patient Records regulations: The Federal rules restrict any use of the information to criminally investigate or prosecute any alcohol or drug abuse patient.[facility] HospitalIn the event this information is protected by the Federal Confidentiality of Alcohol and Drug Abuse Patient Records regulations: The Federal rules restrict any use of the information to criminally investigate or prosecute any alcohol or drug abuse patient.[facility] HospitalIn the event this information is protected by the Federal Confidentiality of Alcohol and Drug Abuse Patient Records regulations: The Federal rules restrict any use of the information to criminally investigate or prosecute any alcohol or drug abuse patient.[facility] HospitalIn the event this information is protected by the Federal Confidentiality of Alcohol and Drug Abuse Patient Records regulations: The Federal rules restrict any use of the information to criminally investigate or prosecute any alcohol or drug abuse patient.[facility] HospitalIn the event this information is protected by the Federal Confidentiality of Alcohol and Drug Abuse Patient Records regulations: The Federal rules restrict any use of the information to criminally investigate or prosecute any alcohol or drug abuse patient.[facility] HospitalIn the event this information is protected by the Federal Confidentiality of Alcohol and Drug Abuse Patient Records regulations: The Federal rules restrict any use of the information to criminally investigate or prosecute any alcohol or drug abuse patient.[facility] HospitalIn the event this information is protected by the Federal Confidentiality of Alcohol and Drug Abuse Patient Records regulations: The Federal rules restrict any use of the information to criminally investigate or prosecute any alcohol or drug abuse patient.[facility] HospitalIn the event this information is protected by the Federal Confidentiality of Alcohol and Drug Abuse Patient Records regulations: The Federal rules restrict any use of the information to criminally investigate or prosecute any alcohol or drug abuse patient.[facility] HospitalIn the event this information is protected by the Federal Confidentiality of Alcohol and Drug Abuse Patient Records regulations: The Federal rules restrict any use of the information to criminally investigate or prosecute any alcohol or drug abuse patient.[facility] Reason for Visit (unrecogniz ed section and content) Specialty Diagnoses / Procedures Referred By Contac t Referred To Contact [facility] Diagnoses Generalized weakness Falls frequently Procedures CONSULT TO PHYSICAL THERAPY PHYSICAL THERAPY EVALUATION HIGH COMPLEX 45 MINS Sharda Carl PA-C [address] [place] [address] [facility] [place] [address] [place] [address] Referral ID Status Reason Start Date Expiration Date Visits Requested Visits Authorized [id number] Authorized PCP Requested Referral Auto-Generate d Referral 03/14/2022 03/14/2023 99 99 Reason Comments PT Progress Note Reason Comments Radiology CT Specialty Diagnoses / Procedures Referred By Contac t Referred To Contact CT IMAGING Diagnoses Rectal cancer (HCC) Procedures CT CHEST W IVCON DIAGNOSTIC COMPUTED TOMOGRAPHY THORAX W/CONTRAST Tameka Marshall, SAKINA.BAKER DOUGHNUT [address] [place] [address] Ct Imaging Referral ID Status Reason Start Date Expiration Date V isits Requested Visits Authorized [id number] Closed Auto-Generate d Referral 11/14/2021 12/14/2022 1 [...] HIGH MDM 60-74 MINUTES Sharda Carl PA-C [address] [place] [address] Referral ID Status Reason Start Date Expiration Date V isi Requested Visits Authorized [id number] Closed PCP Requested Referral 02/04/2022 02/04/2023 1 [...] Reason Onset Date Comments Refill Request 05/16/2023 Residential Plan of Care 05/16/2023 Reason Comments OT plan of care Reason Comments Cough Sob, congestion x 3 days Reason Onset Date Comments Refill Request 05/30/2023 Reason Comments POA question Reason Comments ext document ER report Reason Comments daughter needs note for court hearing to day Reason Comments DME for ostomy supplies Specialty Diagnoses / Procedures Referred By Remi t Referred To Contact CT IMAGING Diagnoses Rectal cancer (HCC) Procedures CT CHEST W IVCON DIAGNOSTIC COMPUTED TOMOGRAPHY THORAX W/CONTRAST Tameka Marshall, SAKINA.BAKER DOUGHNUT [address] [place] [address] [place] [address] Referral ID Status Reason Start Date Expiration Date V isits Requested Visits Authorized [id number] Closed Auto-Generate d Referral 03/21/2022 04/20/2023 1 1 Specialty Diagnoses / Procedures Referred By Contac t Referred To Contact CT IMAGING Diagnoses Malignant neoplasm of rectum (HCC) Procedures CT ABD/PEL W IVCON CT ABD & PELVIS W/CONTRAST Sam Greenberg, DO [address] [place] [address] [place] [address] Referral ID Status Reason Start Date Expiration Date V isits Requested Visits Authorized [id number] Closed Auto-Generate d Referral 04/01/2023 04/30/2024 1 1 Specialty Diagnoses / Procedures Referred By Contac t Referred To Contact CT IMAGING Diagnoses Malignant neoplasm of rectum (HCC) Procedures CT CHEST W IVCON DIAGNOSTIC COMPUTED TOMOGRAPHY THORAX W/CONTRAST Sam Greenberg, DO [address] [place] [address] [place] [address] Referral ID Status Reason Start Date Expiration Date V isits Requested Visits Authorized [id number] Closed Auto-Generate d Referral 02/25/2023 03/26/2024 1 1 Specialty Diagnoses / Procedures Referred By Contac t Referred To Contact CT IMAGING Diagnoses Rectal cancer (HCC) Abnormal CT of the abdomen Procedures CT ABD/PEL W IVCON CT ABD & PELVIS W/CONTRAST Tameka Marshall, SAKINA.BAKER DOUGHNUT [address] [place] [address] [place] [address] Referral ID Status Reason Start Date Expiration Date V isits Requested Visits Authorized [id number] Closed Auto-Generate d Referral 10/09/2022 11/08/2023 1 1 Specialty Diagnoses / Procedures Referred By Contac t Referred To Contact [facility] IMAG[facility] Diagnoses Dementia without behavioral disturbance (HCC) Procedures MRI BRAIN WO IVCON MRI BRAIN BRAIN STEM W/O CONTRAST MATERIAL Mikhail Liu Jr., MD [address] [address] [place] [address] Referral ID Status Reason Start Date Expiration Date V isits Requested Visits Authorized [id number] Closed Auto-Generate d Referral 06/24/2022 07/24/2023 1 [address] Referral ID Status Reason Start Date Expiration Date V isits Requested Visits Authorized [id number] Closed Auto-Generate d Referral 04/01/2023 04/30/2024 1 1 Reason Comments swollen elbow X 1 week Reason Comments New Patient Evaluation Specialty Diagnoses / Procedures Referred By Contac t Referred To Contact Neurology Diagnoses Dementia, unspecified dementia severity, unspecified dementia type, unspecified whether behavioral, psychotic, or mood disturbance or anxiety (HCC) Procedures CONSULT TO NEUROLOGY OFFICE/OUTPATIENT [facility] 60-74 MINUTES Mikhail Liu Jr., MD [address] [facility] [address] [place] [address] Referral ID Status Reason Start Date Expiration Date V isits Requested Visits Authorized [id number] Closed PCP Requested Referral 06/30/2023 06/29/2024 1 1 Reason Comments Weakness Fall Reason Comments medication issue/requesting x-ray Specialty Diagnoses / Procedures Referred By Contac t Referred To Contact MR IMAGING Diagnoses Dementia, unspecified dementia severity, unspecified dementia type, unspecified whether behavioral, psychotic, or mood disturbance or anxiety (HCC) Alcohol dependence with uncomplicated intoxication (HCC) Procedures MRI BRAIN W QUANT WO IVCON MRI BRAIN BRAIN STEM W/O CONTRAST MATERIAL Chapincito Tomlin MD [address] [place] [address] Mr Imaging [place] [address] Referral ID Status Reason Start Date Expiration Date V isits Requested Visits Authorized [id number] Closed Auto-Generate d Referral 08/26/2023 09/24/2024 1 1 Care Teams (unrecognized sec tion and content) Resource Center Teacher Relationship Specialty Start Date End Date Vishal Jones MD [address] [place] [address] PCP - General Family Practice 09/25/17 Deborah Sabillon, ELIE Specialty Clinical Rn Liaison Oncology 07/30/17 Clement Werner MD, [address] [place] [address] Physician Radiation Oncology 01/29/18 Vishal Jones MD [address] [place] [address] Home Care Physician Family Practice 08/17/20 Maye Gonzalez MD Consulting General Surgery 08/17/20 Dayna Mann RN [address] [place], [place] [id number] Carton Filler Post Acute Care 08/17/20 Maye Gonzalez MD Referring General Surgery 08/23/20 Resource Center Teacher Relationship Specialty Start Date End Date Vishal Jones MD [address] [place] [address] PCP - General Family Practice 09/25/17 Deborah Sabillon RN Specialty Clinical Rn Liaison Oncology 07/30/17 Clement Werner MD, MD [address] [place] [address] Physician Radiation Oncology 01/29/18 Vishal Jones MD [address] [place] [address] Home Care Physician Family Practice 08/17/20 Maye Gonzalez MD Consulting General Surgery 08/17/20 Dayna Mann RN [address] [place], [place] [id number] Carton Filler Post Acute Care 08/17/20 Maye Gonzalez MD Referring General Surgery 08/23/20 Resource Center Teacher Relationship Specialty Start Date End Date Vishal Jones MD [address] [facility] [place] [address] PCP - General Family Practice 09/25/17 Deborah Sabillon RN Specialty Clinical Rn Liaison Oncology 07/30/17 Clement Werner MD, [address] [place] [address] Physician Radiation Oncology 01/29/18 Vishal Jones MD [address] [place] [address] Home Care Physician Family Practice 08/17/20 Maye Gonzalez MD Consulting General Surgery 08/17/20 Dayna Mann RN [address] [place] [address] Carton Filler Post Acute Care 08/17/20 Maye Gonzalez MD Referring General Surgery 08/23/20 Resource Center Teacher Relationship Specialty Start Date End Date Vishal Jones MD [address] [place] [address] PCP - General Family Practice 09/25/17 Deborah Sabillon RN Specialty Clinical Rn Liaison Oncology 07/30/17 Clement Werenr MD, [address] [place] [address] Physician Radiation Oncology 01/29/18 Vishal Jones MD [address] [place] [address] Home Care Physician Family Practice 08/17/20 Maye Gonzalez MD Consulting General Surgery 08/17/20 Dayna Mann RN [address] [place], [place] [phone] Carton Filler Post Acute Care 08/17/20 Maye Gonzalez MD Referring General Surgery 08/23/20 Resource Center Teacher Relationship Specialty Start Date End Date Vishal Jones MD [address] [place] [address] PCP - General Family Practice 09/25/17 Deborah Sabillon RN Specialty Clinical Rn Liaison Oncology 07/30/17 Clement Werner MD, [address] [place] [address] Physician Radiation Oncology 01/29/18 Vishal Jones MD [address] [facility] [place] [address] Home Care Physician Family Practice 08/17/20 Maye Gonzalez MD Consulting General Surgery 08/17/20 Dayna Mann RN [address] [place] [address] Carton Filler Post Acute Care 08/17/20 Maye Gonzalez MD Referring General Surgery 08/23/20 Resource Center Teacher Relationship Specialty Start Date End Date Vishal Jones MD [address] [place] [address] PCP - General Family Practice 09/25/17 Deborah Sabillon RN Specialty Clinical Rn Liaison Oncology 07/30/17 Clement Werner MD, [address] [place] [address] Physician Radiation Oncology 01/29/18 Vishal Jones MD [address] [facility] [place] [address] Home Care Physician Family Practice 08/17/20 Maye Gonzalez MD Consulting General Surgery 08/17/20 Dayna Mann RN [address] [place] [address] Carton Filler Post Acute Care 08/17/20 Maye Gonzalez MD Referring General Surgery 08/23/20 Resource Center Teacher Relationship Specialty Start Date End Date Vishal Jones MD [address] [facility] [place] [address] PCP - General Family Practice 09/25/17 Deborah Sabillon RN Specialty Clinical Rn Liaison Oncology 07/30/17 Clement Werner MD, MD [address] [place] [place] [place] [address] Physician Radiation Oncology 01/29/18 Vishal Jones MD [address] [facility] [place] [address] Home Care Physician Family Practice 08/17/20 Maye Gonzalez MD Consulting General Surgery 08/17/20 Dayna Mann RN [address] [place] [address] Carton Filler Post Acute Care 08/17/20 Maye Gonzalez MD Referring General Surgery 08/23/20 Resource Center Teacher Relationship Specialty Start Date End Date Vishal Jones MD [address] [facility] [place] [address] PCP - General Family Practice 09/25/17 Deborah Sabillon RN Specialty Clinical Rn Liaison Oncology 07/30/17 Clement Werner MD, MD [address] [place] [place] [address] Physician Radiation Oncology 01/29/18 Vishal Jones MD [address] [facility] [place] [address] Home Care Physician Family Practice 08/17/20 Maye Gonzalez MD Consulting General Surgery 08/17/20 Dayna Mann RN [address] [place] [address] Carton Filler Post Acute Care 08/17/20 Maye Gonzalez MD Referring General Surgery 08/23/20 Resource Center Teacher Relationship Specialty Start Date End Date Vishal Jones MD [address] [place] [address] PCP - General Family Practice 09/25/17 Deborah Sabillon RN Specialty Clinical Rn Liaison Oncology 07/30/17 Clement Werner MD, MD [address] [place] [address] Physician Radiation Oncology 01/29/18 Vishal Jones MD [address] [place] [address] Home Care Physician Family Practice 08/17/20 Maye Gonzalez MD Consulting General Surgery 08/17/20 Dayna Mann RN [address] [place] [address] Carton Filler Post Acute Care 08/17/20 Maye Gonzalez MD Referring General Surgery 08/23/20 Resource Center Teacher Relationship Specialty Start Date End Date Vishal Jones MD [address] [place] [address] PCP - General Family Practice 09/25/17 Deborah Sabillon RN Specialty Clinical Rn Liaison Oncology 07/30/17 Clement Werner MD, MD [address] [place] [address] Physician Radiation Oncology 01/29/18 Vishal Jones MD [address] [place] [address] Home Care Physician Family Practice 08/17/20 Maye Gonzalez MD Consulting General Surgery 08/17/20 Dayna Mann RN [address] [place], [place] [phone] Carton Filler Post Acute Care 08/17/20 Maye Gonzalez MD Referring General Surgery 08/23/20 Resource Center Teacher Relationship Specialty Start Date End Date Vishal Jones MD [address] [place] [address] PCP - General Family Practice 09/25/17 Deborah Sabillon RN Specialty Clinical Rn Liaison Oncology 07/30/17 Clement Werner MD, MD [address] [place] [address] Physician Radiation Oncology 01/29/18 Vishal Jones MD [address] [place] [address] Home Care Physician Family Practice 08/17/20 Maye Gonzalez MD Consulting General Surgery 08/17/20 Dayna Mann RN [address] [place], [place] [phone] Carton Filler Post Acute Care 08/17/20 Maye Gonzalez MD Referring General Surgery 08/23/20 Resource Center Teacher Relationship Specialty Start Date End Date Vishal Jones MD [address] [place] [address] PCP - General Family Practice 09/25/17 Deborah Sabillon RN Specialty Clinical Rn Liaison Oncology 07/30/17 Clement Werner MD, [address] [place] [address] Physician Radiation Oncology 01/29/18 Vishal Jones MD [address] [place] [address] Home Care Physician Family Practice 08/17/20 Maye Gonzalez MD Consulting General Surgery 08/17/20 Dayna Mann RN [address] [place], [place] [phone] Carton Filler Post Acute Care 08/17/20 Maye Gonzalez MD Referring General Surgery 08/23/20 Resource Center Teacher Relationship Specialty Start Date End Date Vishal Jones MD [address] [place] [address] PCP - General Family Practice 09/25/17 Deborah Sabillon RN Specialty Clinical Rn Liaison Oncology 07/30/17 Clement Werner MD, [address] [place] [address] Physician Radiation Oncology 01/29/18 Vishal Jones MD [address] [facility] [place] [address] Home Care Physician Family Practice 08/17/20 Maye Gonzalez MD Consulting General Surgery 08/17/20 Dayna Mann RN [address] [place], [place] [phone] Carton Filler Post Acute Care 08/17/20 Maye Gonzalez MD Referring General Surgery 08/23/20 Resource Center Teacher Relationship Specialty Start Date End Date Vishal Jones MD [address] [place] [address] PCP - General Family Practice 09/25/17 Deborah Sabillon RN Specialty Clinical Rn Liaison Oncology 07/30/17 Clement Werner MD, [address] [place] [address] Physician Radiation Oncology 01/29/18 Vishal Jones MD [address] [place] [address] Home Care Physician Family Practice 08/17/20 Maye Gonzalez MD Consulting General Surgery 08/17/20 Dayna Mann RN [address] [place], [place] [phone] Carton Filler Post Acute Care 08/17/20 Maye Gonzalez MD Referring General Surgery 08/23/20 Resource Center Teacher Relationship Specialty Start Date End Date Vishal Jones MD [address] [place] [address] PCP - General Family Practice 09/25/17 Deborah Sabillon RN Specialty Clinical Rn Liaison Oncology 07/30/17 Clement Werner MD, [address] [place] [address] Physician Radiation Oncology 01/29/18 Vishal Jones MD [address] [place] [address] Home Care Physician Family Practice 08/17/20 Maye Gonzalez MD Consulting General Surgery 08/17/20 Dayna Mann RN [address] [place] [address] Carton Filler Post Acute Care 08/17/20 Maye Gonzalez MD Referring General Surgery 08/23/20 Resource Center Teacher Relationship Specialty Start Date End Date Vishal Jones MD [address] [place] [address] PCP - General Family Practice 09/25/17 Deborah Sabillon RN Specialty Clinical Rn Liaison Oncology 07/30/17 Clement Werner MD, [address] [place] [address] Physician Radiation Oncology 01/29/18 Vishal Jones MD [address] [facility] [place] [address] Home Care Physician Family Practice 08/17/20 Maye Gonzalez MD Consulting General Surgery 08/17/20 Dayna Mann RN [address] [place] [address] Carton Filler Post Acute Care 08/17/20 Maye Gonzalez MD Referring General Surgery 08/23/20 Resource Center Teacher Relationship Specialty Start Date End Date Vishal Jones MD [address] [facility] [place] [address] PCP - General Family Medicine 09/25/17 Deborah Sabillon RN Specialty Clinical Rn Liaison Oncology 07/30/17 Clement Werner MD, MD [address] [place] [address] Physician Radiation Oncology 01/29/18 Vishal Jones MD [address] [facility] [place] [address] Home Care Provider Family Medicine 08/17/20 Maye Gonzalez MD Consulting General Surgery 08/17/20 Dayna Mann RN [address] [place], [place] 1982931 Carton Filler Post Acute Care 08/17/20 Maye Gonzalez MD Referring General Surgery 08/23/20 Resource Center Teacher Relationship Specialty Start Date End Date Vishal Jones MD [address] [place] [address] PCP - General Family Medicine 09/25/17 Deborah Sabillon RN Specialty Clinical Rn Liaison Oncology 07/30/17 Clement Werner MD, MD [address] [place] [address] Physician Radiation Oncology 01/29/18 Vishal Jones MD [address] [facility] [place] [address] Home Care Provider Family Medicine 08/17/20 Maye Gonzalez MD Consulting General Surgery 08/17/20 Dayna Mann RN [address] [place] [address] Carton Filler Post Acute Care 08/17/20 Maye Gonzalez MD Referring General Surgery 08/23/20 Resource Center Teacher Relationship Specialty Start Date End Date Vishal Jones MD [address] [place] [address] PCP - General Family Medicine 09/25/17 Deborah Sabillon RN Specialty Clinical Rn Liaison Oncology 07/30/17 Clement Werner MD, [address] [place] [address] Physician Radiation Oncology 01/29/18 Vishal Jones MD [address] [place] [address] Home Care Provider Family Medicine 08/17/20 Maye Gonzalez MD Consulting General Surgery 08/17/20 Dayna Mann RN [address] [place], [place] [phone] Carton Filler Post Acute Care 08/17/20 Maye Gonzalez MD Referring General Surgery 08/23/20 Resource Center Teacher Relationship Specialty Start Date End Date Vishal Jones MD [address] [place] [address] PCP - General Family Medicine 09/25/17 Deborah Sabillon RN Specialty Clinical Rn Liaison Oncology 07/30/17 Clement Werner MD, MD [address] [place] [address] Physician Radiation Oncology 01/29/18 Vishal Jones MD [address] [place] [address] Home Care Provider Family Medicine 08/17/20 Maye Gonzalez MD Consulting General Surgery 08/17/20 Dayna Mann RN [address] [place], [place] [phone] Carton Filler Post Acute Care 08/17/20 Maye Gonzalez MD Referring General Surgery 08/23/20 Resource Center Teacher Relationship Specialty Start Date End Date Vishal Jones MD [address] [place] [address] PCP - General Family Medicine 09/25/17 Deborah Sabillon RN Specialty Clinical Rn Liaison Oncology 07/30/17 Clement Werner MD, [address] [place] [place] [address] Physician Radiation Oncology 01/29/18 Vishal Jones MD [address] [facility] [place] [address] Home Care Provider Family Medicine 08/17/20 Maye Gonzalez MD Consulting General Surgery 08/17/20 Dayna Mann RN [address] [place], [place] [phone] Carton Filler Post Acute Care 08/17/20 Maye Gonzalez MD Referring General Surgery 08/23/20 Resource Center Teacher Relationship Specialty Start Date End Date Vishal Jones MD [address] [place] [address] PCP - General Family Medicine 09/25/17 Deborah Sabillon RN Specialty Clinical Rn Liaison Oncology 07/30/17 Clement Werner MD, [address] [place] [address] Physician Radiation Oncology 01/29/18 Vishal Jones MD [address] [facility] [place] [address] Home Care Provider Family Medicine 08/17/20 Maye Gonzalez MD [address] [address] Consulting General Surgery 08/17/20 Dayna Mann RN [address] [place], [place] [phone] Carton Filler Post Acute Care 08/17/20 Maye Gonzalez MD [address] [facility], [place] [address]21 Referring General Surgery 08/23/20 Resource Center Teacher Relationship Specialty Start Date End Date Vishal Jones MD [address] [facility] [place] [address] PCP - General Family Medicine 09/25/17 Deborah Sabillon RN Specialty Clinical Rn Liaison Oncology 07/30/17 Clement Werner MD, MD [address] [place] [address] Physician Radiation Oncology 01/29/18 Vishal Jones MD [address] [facility] [place] [address] Home Care Provider Family Medicine 08/17/20 Maye Gonzalez MD [address] [place] [address] Consulting General Surgery 08/17/20 Dayna Mann RN [address] [place] [address] Carton Filler Post Acute Care 08/17/20 Maye Gonzalez MD [address] [facility], [place] [address] Referring General Surgery 08/23/20 Resource Center Teacher Relationship Specialty Start Date End Date Vishal Jones MD [address] [facility] [place] [address] PCP - General Family Medicine 09/25/17 Deborah Sabillon RN Specialty Clinical Rn Liaison Oncology 07/30/17 Clement Werner MD, [address] [place] [address] Physician Radiation Oncology 01/29/18 Vishal Jones MD [address] [facility] [place] [address] Home Care Provider Family Medicine 08/17/20 Maye Gonzalez MD [address] [place] [address] Consulting General Surgery 08/17/20 Dayna Mann RN [address] [place] [address] Carton Filler Post Acute Care 08/17/20 Maye Gonzalez MD [address] [place] [address] Referring General Surgery 08/23/20 Resource Center Teacher Relationship Specialty Start Date End Date Vishal Jones MD [address] [facility] [place] [address] PCP - General Family Medicine 09/25/17 Deborah Sabillon RN Specialty Clinical Rn Liaison Oncology 07/30/17 Clement Werner MD, [address] [place] [address] Physician Radiation Oncology 01/29/18 Vishal Jones MD [address] [facility] [place] [address] Home Care Provider Family Medicine 08/17/20 Maye Gonzalez MD [address] [place] [address] Consulting General Surgery 08/17/20 Dayna Mann RN [address] [place] [address] Carton Filler Post Acute Care 08/17/20 Maye Gonzalez MD [address] [place] [address] Referring General Surgery 08/23/20 Resource Center Teacher Relationship Specialty Start Date End Date Vishal Jones MD [address] [facility] [place] [address] PCP - General Family Medicine 09/25/17 Deborah Sabillon RN Specialty Clinical Rn Liaison Oncology 07/30/17 Clement Werner MD, [address] [place] [address] Physician Radiation Oncology 01/29/18 Vishal Jones MD [address] [facility] [place] [address] Home Care Provider Family Medicine 08/17/20 Maye Gonzalez MD [address] [place] [address] Consulting General Surgery 08/17/20 Dayna Mann, ELIE [address] [place], [place] [phone] Carton Filler Post Acute Care 08/17/20 Maye Gonzalez MD [address] [place] [address] Referring General Surgery 08/23/20 Resource Center Teacher Relationship Specialty Start Date End Date Vishal Jones MD [address] [facility] [place] [address] PCP - General Family Medicine 09/25/17 Deborah Sabillon RN Specialty Clinical Rn Liaison Oncology 07/30/17 Clement Werner MD, [address] [place] [address] Physician Radiation Oncology 01/29/18 Vishal Jones MD [address] [facility] [place] [address] Home Care Provider Family Medicine 08/17/20 Maye Gonzalez MD [address] [place] [address] Consulting General Surgery 08/17/20 Dayna Mann RN [address] [place] [address] Carton Filler Post Acute Care 08/17/20 Maye Goznalez MD [address] [facility], [place] [address]31 Referring General Surgery 08/23/20 Resource Center Teacher Relationship Specialty Start Date End Date Vishal Jones MD [address] [facility] [place] [address] PCP - General Family Medicine 09/25/17 Deborah Sabillon RN Specialty Clinical Rn Liaison Oncology 07/30/17 Clement Werner MD, MD [address] [place] [address] Physician Radiation Oncology 01/29/18 Vishal Jones MD [address] [facility] [place] [address] Home Care Provider Family Medicine 08/17/20 Maye Gonzalez MD [address] [place] [address] Consulting General Surgery 08/17/20 Dayna Mann RN [address] [place] [address] Carton Filler Post Acute Care 08/17/20 Maye Gonzalez MD [address] [place] [address] Referring General Surgery 08/23/20 Resource Center Teacher Relationship Specialty Start Date End Date Vishal Jones MD [address] [facility] [place] [address] PCP - General Family Medicine 09/25/17 Deborah Sabillon RN Specialty Clinical Rn Liaison Oncology 07/30/17 Clement Werner MD, [address] [place] [address] Physician Radiation Oncology 01/29/18 Vishal Jones MD [address] [facility] [place] [address] Home Care Provider Family Medicine 08/17/20 Maye Gonzalez MD [address] [place] [address] Consulting General Surgery 08/17/20 Dayna Mann RN [address] [facility], [place] 4009[address] Carton Filler Post Acute Care 08/17/20 Maye Gonzalez MD [address] [place] [address] Referring General Surgery 08/23/20 Resource Center Teacher Relationship Specialty Start Date End Date Vishal Jones MD [address] [facility] [place] [address] PCP - General Family Medicine 09/25/17 Deborah Sabillon RN Specialty Clinical Rn Liaison Oncology 07/30/17 Clement Werner MD, [address] [place] [address] Physician Radiation Oncology 01/29/18 Vishal Jones MD [address] [facility] [place] [address] Home Care Provider Family Medicine 08/17/20 Maye Gonzlaez MD [address] [place] [address] Consulting General Surgery 08/17/20 Dayna Mann RN [address] [place], [place] 6835[address] Carton Filler Post Acute Care 08/17/20 Maye Gonzalez MD [address] [place] [address] Referring General Surgery 08/23/20 Resource Center Teacher Relationship Specialty Start Date End Date Vishal Jones MD [address] [place] [address] PCP - General Family Medicine 09/25/17 Deborah Sabillon RN Specialty Clinical Rn Liaison Oncology 07/30/17 Clement Werner MD, [address] [place] [address] Physician Radiation Oncology 01/29/18 Vishal Jones MD [address] [place] [address] Home Care Provider Family Medicine 08/17/20 Maye Gonzalez MD [address] [place] [address] Consulting General Surgery 08/17/20 Dayna Mann, ELIE [address] [place], [place] 7561731 Carton Filler Post Acute Care 08/17/20 Maye Gonzalez MD [address] [place] [address] Referring General Surgery 08/23/20 Resource Center Teacher Relationship Specialty Start Date End Date Vishal Jones MD [address] [place] [address] PCP - General Family Medicine 09/25/17 Deborah Sabillon RN Specialty Clinical Rn Liaison Oncology 07/30/17 Clement Werner MD, [address] [place] [address] Physician Radiation Oncology 01/29/18 Vishal Jones MD [address] [place] [address] Home Care Provider Family Medicine 08/17/20 Maye Gonzalez MD [address] [place], [place] 970851 Consulting General Surgery 08/17/20 Dayna Mann RN [address] [place] [address] Carton Filler Post Acute Care 08/17/20 Maye Gonzalez MD [address] [facility], [place] 847321 Referring General Surgery 08/23/20 Resource Center Teacher Relationship Specialty Start Date End Date Vishal Jones MD [address] [place] [address] PCP - General Family Medicine 09/25/17 Deborah Sabillon RN Specialty Clinical Rn Liaison Oncology 07/30/17 Clement Werner MD, [address] [place] [address] Physician Radiation Oncology 01/29/18 Vishal Jones MD [address] [place] [address] Home Care Provider Family Medicine 08/17/20 Maye Gonzalez MD [address] [facility], [place] 341051 Consulting General Surgery 08/17/20 Dayna Mann RN [address] [place] [address] Carton Filler Post Acute Care 08/17/20 Maye Gonzalez MD [address] [facility], [place] 516[address] Referring General Surgery 08/23/20 Resource Center Teacher Relationship Specialty Start Date End Date Vishal Jones MD [address] [place] [address] PCP - General Family Medicine 09/25/17 Deborah Sabillon RN Specialty Clinical Rn Liaison Oncology 07/30/17 Clement Werner MD, [address] [place] [address] Physician Radiation Oncology 01/29/18 Vishal Jones MD [address] [facility] [place] [address] Home Care Provider Family Medicine 08/17/20 Maye Gonzalez MD [address] [place] [address] Consulting General Surgery 08/17/20 Dayna Mann RN [address] [place], [place] [address]45[address]31 Carton Filler Post Acute Care 08/17/20 Maye Gonzalez MD [address] [place] [address] Referring General Surgery 08/23/20 Resource Center Teacher Relationship Specialty Start Date End Date Vishal Jones MD [address] [facility] [place] [address] PCP - General Family Medicine 09/25/17 Deborah Sabillon RN Specialty Clinical Rn Liaison Oncology 07/30/17 Clement Werner MD, [address] [place] [address] Physician Radiation Oncology 01/29/18 Vishal Jones MD [address] [facility] [place] [address] Home Care Provider Family Medicine 08/17/20 Maye Gonzalez MD [address] [place] [address] Consulting General Surgery 08/17/20 Dayna Mann RN [address] [place] [address] Carton Filler Post Acute Care 08/17/20 Maye Gonzalez MD [address] [facility], [place] 800341 Referring General Surgery 08/23/20 Resource Center Teacher Relationship Specialty Start Date End Date Vishal Jones MD [address] [place] [address] PCP - General Family Medicine 09/25/17 Deborah Sabillon RN Specialty Clinical Rn Liaison Oncology 07/30/17 Clement Werner MD, [address] [place] [address] Physician Radiation Oncology 01/29/18 Vishal Jones MD [address] [place] [address] Home Care Provider Family Medicine 08/17/20 Maye Gonzalez MD [address] [place] [address] Consulting General Surgery 08/17/20 Dayna Mann, ELIE [address] [place], [place] 0851631 Carton Filler Post Acute Care 08/17/20 Maye Gonzalez MD [address] [place] [address] Referring General Surgery 08/23/20 Resource Center Teacher Relationship Specialty Start Date End Date Vishal Jones MD [address] [place] [address] PCP - General Family Medicine 09/25/17 Deborah Sabillon RN Specialty Clinical Rn Liaison Oncology 07/30/17 Clement Werner MD, [address] [place] [address] Physician Radiation Oncology 01/29/18 Vishal Jones MD [address] [facility] [place] [address] Home Care Provider Family Medicine 08/17/20 Maye Gonzalez MD [address] [place] [address] Consulting General Surgery 08/17/20 Dayna Mann RN [address] [place], [place] 689[address]31 Carton Filler Post Acute Care 08/17/20 Maye Gonzalez MD [address] [place] [address] Referring General Surgery 08/23/20 Resource Center Teacher Relationship Specialty Start Date End Date Vishal Jones MD [address] [facility] [place] [address] PCP - General Family Medicine 09/25/17 Deborah Sabillon RN Specialty Clinical Rn Liaison Oncology 07/30/17 Clement Werner MD, [address] [place] [address] Physician Radiation Oncology 01/29/18 Vishal Jones MD [address] [facility] [place] [address] Home Care Provider Family Medicine 08/17/20 Maye Gonzalez MD [address] [place] [address] Consulting General Surgery 08/17/20 Dayna Mann RN [address] [place], [place] [phone] Carton Filler Post Acute Care 08/17/20 Maye Gonzalez MD [address] [place] [address] Referring General Surgery 08/23/20 Resource Center Teacher Relationship Specialty Start Date End Date Vishal Jones MD [address] [facility] [place] [address] PCP - General Family Medicine 09/25/17 Deborah Sabillon RN Specialty Clinical Rn Liaison Oncology 07/30/17 Clement Werner MD, MD [address] [place] [address] Physician Radiation Oncology 01/29/18 Vishal Jones MD [address] [facility] [place] [address] Home Care Provider Family Medicine 08/17/20 Maye Gonzalez MD [address] [place] [address] Consulting General Surgery 08/17/20 Dayna Mann, RN [address] [facility], [place] 6803231 Carton Filler Post Acute Care 08/17/20 Maye Gonzalez MD [address] [place] [address] Referring General Surgery 08/23/20 Resource Center Teacher Relationship Specialty Start Date End Date Vishal Jones MD [address] [facility] [place] [address] PCP - General Family Medicine 09/25/17 Deborah Sabillon RN Specialty Clinical Rn Liaison Oncology 07/30/17 Clement Werner MD, [address] [place] [address] Physician Radiation Oncology 01/29/18 Vishal Jones MD [address] [facility] [place] [address] Home Care Provider Family Medicine 08/17/20 Maye Gonzalez MD [address] [place] [address] Consulting General Surgery 08/17/20 Dayna Mann RN [address] [place] [address] Carton Filler Post Acute Care 08/17/20 Maye Gonzalez MD [address] [place], [place] [address] Referring General Surgery 08/23/20 Resource Center Teacher Relationship Specialty Start Date End Date Vishal Jones MD [address] [place] [address] PCP - General Family Medicine 09/25/17 Deborah Sabillon RN Specialty Clinical Rn Liaison Oncology 07/30/17 Clement Werner MD, MD [address] [place] [address] Physician Radiation Oncology 01/29/18 Vishal Jones MD [address] [place] [address] Home Care Provider Family Medicine 08/17/20 Maye Gonzalez MD [address] [place] [address] Consulting General Surgery 08/17/20 Dayna Mann RN [address] [place] [address] Carton Filler Post Acute Care 08/17/20 Maye Gonzalez MD [address] [place] [address] Referring General Surgery 08/23/20 Resource Center Teacher Relationship Specialty Start Date End Date Vishal Jones MD [address] [place] [address] PCP - General Family Medicine 09/25/17 Deborah Sabillon RN Specialty Clinical Rn Liaison Oncology 07/30/17 Clement Werner MD, MD [address] [place] [address] Physician Radiation Oncology 01/29/18 Vishal Jones MD [address] [place] [address] Home Care Provider Family Medicine 08/17/20 Maye Gonzalez MD [address] [place] [address] Consulting General Surgery 08/17/20 Dayna Mann, RN [address] [place], [place] [id number] Carton Filler Post Acute Care 08/17/20 Maye Gonzalez MD [address] [place] [address] Referring General Surgery 08/23/20 Resource Center Teacher Relationship Specialty Start Date End Date Vishal Jonse MD [address] [place] [address] PCP - General Family Medicine 09/25/17 Deborah Sabillon RN Specialty Clinical Rn Liaison Oncology 07/30/17 Clement Werner MD, MD [address] [place] [address] Physician Radiation Oncology 01/29/18 Vishal Jones MD [address] [facility] [place] [address] Home Care Provider Family Medicine 08/17/20 Maye Gonzalez MD [address] [place], [place] [address] Consulting General Surgery 08/17/20 Dayna Mann RN [address] [place] [address] Carton Filler Post Acute Care 08/17/20 Maye Gonzalez MD [address] [place] [address] Referring General Surgery 08/23/20 Resource Center Teacher Relationship Specialty Start Date End Date Vishal Jones MD [address] [facility] [place] [address] PCP - General Family Medicine 09/25/17 Deborah Sabillon RN Specialty Clinical Rn Liaison Oncology 07/30/17 Clement Werner MD, [address] [place] [address] Physician Radiation Oncology 01/29/18 Vishal Jones MD [address] [facility] [place] [address] Home Care Provider Family Medicine 08/17/20 Maye Gonzalez MD [address] [place] [address] Consulting General Surgery 08/17/20 Dayna Mann RN [address] [place] [address] Carton Filler Post Acute Care 08/17/20 Maye Gonzalez MD [address] [place] [place], [place] [address] Referring General Surgery 08/23/20 Resource Center Teacher Relationship Specialty Start Date End Date Vishal Jones MD [address] [facility], [place] [address] PCP - General Family Medicine 09/25/17 Deborah Sabillon RN Specialty Clinical Rn Liaison Oncology 07/30/17 Clement Werner MD, MD [address] [place] [address] Physician Radiation Oncology 01/29/18 Vishal Jones MD [address] [facility] [place] [address] Home Care Provider Family Medicine 08/17/20 Maye Gonzalez MD [address] [place], [place] [address] Consulting General Surgery 08/17/20 Dayna Mann RN [address] [place], [place] [phone] Carton Filler Post Acute Care 08/17/20 Maye Gonzalez MD [address] [address] Referring General Surgery 08/23/20 Resource Center Teacher Relationship Specialty Start Date End Date Vishal Jones MD [address] [place] [address] PCP - General Family Medicine 09/25/17 Deborah Sabillon RN Specialty Clinical Rn Liaison Oncology 07/30/17 Clement Werner MD, MD [address] [place] [address] Physician Radiation Oncology 01/29/18 Vishal Jones MD [address] [place] [address] Home Care Provider Family Medicine 08/17/20 Maye Gonzalez MD [address] [place] [address] Consulting General Surgery 08/17/20 Dayna Mann, RN [address] [facility] [place] [phone] Carton Filler Post Acute Care 08/17/20 Maye Gonzalez MD [address] [place] [address] Referring General Surgery 08/23/20 Resource Center Teacher Relationship Specialty Start Date End Date Vishal Jones MD [address] [facility] [place] [address] PCP - General Family Medicine 09/25/17 Debroah Sabillon RN Specialty Clinical Rn Liaison Oncology 07/30/17 Clement Werner MD, [address] [place] [address] Physician Radiation Oncology 01/29/18 Vishal Jones MD [address] [facility] [place] [address] Home Care Provider Family Medicine 08/17/20 Maye Gonzalez MD [address] [place], [place] [address]21 Consulting General Surgery 08/17/20 Dayna Mann RN [address] [facility] [place] [address] Carton Filler Post Acute Care 08/17/20 Maye Gonzalez MD [address] [place] [address] Referring General Surgery 08/23/20 Resource Center Teacher Relationship Specialty Start Date End Date Vishal Jones MD [address] [place] [address] PCP - General Family Medicine 09/25/17 Deborah Sabillon RN Specialty Clinical Rn Liaison Oncology 07/30/17 Clement Werner MD, [address] [place], [place] 960451 Physician Radiation Oncology 01/29/18 Vishal Jones MD [address] [place] [address] Home Care Provider Family Medicine 08/17/20 Maye Gonzalez MD [address] [place] [address] Consulting General Surgery 08/17/20 Dayna Mann RN [address] [place] [address] Carton Filler Post Acute Care 08/17/20 Maye Gonzalez MD [address] [place], [place] 902381 Referring General Surgery 08/23/20 Resource Center Teacher Relationship Specialty Start Date End Date Vishal Jones MD [address] [place], [place] 638601 PCP - General Family Medicine 09/25/17 Deborah Sabillon RN Specialty Clinical Rn Liaison Oncology 07/30/17 Clement Werner MD, MD [address] [place] [address] Physician Radiation Oncology 01/29/18 Vishal Jones MD [address] [place] [address] Home Care Provider Family Medicine 08/17/20 Maye Gonzalez MD [address] [place] [address] Consulting General Surgery 08/17/20 Dayna Mann RN [address] [place], [place] 4330131 Carton Filler Post Acute Care 08/17/20 Maye Gonzalez MD [address] [place] [address] Referring General Surgery 08/23/20 Resource Center Teacher Relationship Specialty Start Date End Date Vishal Jones MD [address] [place] [address] PCP - General Family Medicine 09/25/17 Deborah Sabillon RN Specialty Clinical Rn Liaison Oncology 07/30/17 Clement Werner MD, MD [address] [place] [address] Physician Radiation Oncology 01/29/18 Vishal Jones MD [address] [place] [address] Home Care Provider Family Medicine 08/17/20 Maye Gonzalez MD [address] [place], [place] 162561 Consulting General Surgery 08/17/20 Dayna Mann RN [address] [place] [address] Carton Filler Post Acute Care 08/17/20 Maye Gonzalez MD [address] [place] [address] Referring General Surgery 08/23/20 Resource Center Teacher Relationship Specialty Start Date End Date Vishal Jones MD [address] [facility] [place] [address] PCP - General Family Medicine 09/25/17 Debroah Sabillon RN Specialty Clinical Rn Liaison Oncology 07/30/17 Clement Werner MD, [address] [place] [address] Physician Radiation Oncology 01/29/18 Vishal Jones MD [address] [facility] [place] [address] Home Care Provider Family Medicine 08/17/20 Maye Gonzalez MD [address] [place] [address] Consulting General Surgery 08/17/20 Dayna Mann RN [address] [place] [address] Carton Filler Post Acute Care 08/17/20 Maye Gonzalez MD [address] [place], [place] 450361 Referring General Surgery 08/23/20 Resource Center Teacher Relationship Specialty Start Date End Date Vishal Jones MD [address] [place] [address] PCP - General Family Medicine 09/25/17 Deborah Sabillon RN Specialty Clinical Rn Liaison Oncology 07/30/17 Clement Werner MD, [address] [place] [address] Physician Radiation Oncology 01/29/18 Vishal Jones MD [address] [facility] [place] [address] Home Care Provider Family Medicine 08/17/20 Maye Gonzalez MD [address] [place] [address] Consulting General Surgery 08/17/20 Dayna Mann, RN [address] [facility], [place] 2884431 Carton Filler Post Acute Care 08/17/20 Maye Gonzalez MD [address] [place] [address] Referring General Surgery 08/23/20 Resource Center Teacher Relationship Specialty Start Date End Date Vishal Jones MD [address] [place] [address] PCP - General Family Medicine 09/25/17 Deborah Sabillon RN Specialty Clinical Rn Liaison Oncology 07/30/17 Clement Werner MD, MD [address] [place] [address] Physician Radiation Oncology 01/29/18 Vishal Jones MD [address] [facility] [place] [address] Home Care Provider Family Medicine 08/17/20 Maye Gonzalez MD [address] [place], [place] 418221 Consulting General Surgery 08/17/20 Dayna Mann RN [address] [place] [address] Carton Filler Post Acute Care 08/17/20 Maye Gonzalez MD [address] [place], [place] 622491 Referring General Surgery 08/23/20 Resource Center Teacher Relationship Specialty Start Date End Date Vishal Jones MD [address] [place] [address] PCP - General Family Medicine 09/25/17 Deborah Sabillon RN Specialty Clinical Rn Liaison Oncology 07/30/17 Clement Werner MD, MD [address] [place] [address] Physician Radiation Oncology 01/29/18 Vishal Jones MD [address] [place] [address] Home Care Provider Family Medicine 08/17/20 Maye Gonzalez MD [address] [place] [address] Consulting General Surgery 08/17/20 Dayna Mann RN [address] [place] [address] Carton Filler Post Acute Care 08/17/20 Maye Gonzalez MD [address] [place], [place] 542241 Referring General Surgery 08/23/20 Resource Center Teacher Relationship Specialty Start Date End Date Vishal Jones MD [address] [facility], [place] 57[address]41 PCP - General Family Medicine 09/25/17 Deborah Sabillon RN Specialty Clinical Rn Liaison Oncology 07/30/17 Clement Werner MD, MD [address] [place] [place] [address] Physician Radiation Oncology 01/29/18 Vishal Jones MD [address] [facility] [place] [address] Home Care Provider Family Medicine 08/17/20 Maye Gonzalez MD [address] [place] [address] Consulting General Surgery 08/17/20 Dayna Mann, RN [address] [place], [place] 3308831 Carton Filler Post Acute Care 08/17/20 Maye Gonzalez MD [address] [facility], [place] 716071 Referring General Surgery 08/23/20 Resource Center Teacher Relationship Specialty Start Date End Date Vishal Jones MD [address] [facility] [place] [address] PCP - General Family Medicine 09/25/17 Deborah Sabillon RN Specialty Clinical Rn Liaison Oncology 07/30/17 Clement Werner MD, [address] [place] [address] Physician Radiation Oncology 01/29/18 Vishal Jones MD [address] [place] [address] Home Care Provider Family Medicine 08/17/20 Maye Gonzalez MD [address] [place], [place] 743811 Consulting General Surgery 08/17/20 Dayna Mann RN [address] [place] [address] Carton Filler Post Acute Care 08/17/20 Maye Gonzalez MD [address] [place] [address] Referring General Surgery 08/23/20 Resource Center Teacher Relationship Specialty Start Date End Date Vishal Jones MD [address] [facility] [place] [address] PCP - General Family Medicine 09/25/17 Deborah Sabillon RN Specialty Clinical Rn Liaison Oncology 07/30/17 Clement Werner MD, MD [address] [place] [address] Physician Radiation Oncology 01/29/18 Vishal Jones MD [address] [facility] [place] [address] Home Care Provider Family Medicine 08/17/20 Maye Gonzalez MD [address] [place] [address] Consulting General Surgery 08/17/20 Dayna Mann RN [address] [place] [address] Carton Filler Post Acute Care 08/17/20 Maye Gonzalez MD [address] [place] [place], [place] [address]291 Referring General Surgery 08/23/20 Resource Center Teacher Relationship Specialty Start Date End Date Vishal Jones MD [address] [facility], [place] 563951 PCP - General Family Medicine 09/25/17 Deborah Sabillon RN Specialty Clinical Rn Liaison Oncology 07/30/17 Clement Werner MD, MD [address] [place], [place] 577391 Physician Radiation Oncology 01/29/18 Vishal Jones MD [address] [facility], [place] 575461 Home Care Provider Family Medicine 08/17/20 Maye Gonzalez MD [address] [place], [place] 544041 Consulting General Surgery 08/17/20 Dayna Mann RN [address] [facility], [place] 7441031 Carton Filler Post Acute Care 08/17/20 Maye Gonzalez MD [address] [place] [address] Referring General Surgery 08/23/20 Resource Center Teacher Relationship Specialty Start Date End Date Vishal Jones MD [address] [facility], [place] 02[address]81 PCP - General Family Medicine 09/25/17 Deborah Sabillon RN Specialty Clinical Rn Liaison Oncology 07/30/17 Clement Werner MD, MD [address] [place] [address] Physician Radiation Oncology 01/29/18 Vishal Jones MD [address] [place] [address] Home Care Provider Family Medicine 08/17/20 Maye Gonzalez MD [address] [place] [address] Consulting General Surgery 08/17/20 Dayna Mann RN [address] [place], [place] 0339431 Carton Filler Post Acute Care 08/17/20 Maye Gonzalez MD [address] [place] [address] Referring General Surgery 08/23/20 Resource Center Teacher Relationship Specialty Start Date End Date Vishal Jones MD [address] [place] [address] PCP - General Family Medicine 09/25/17 Deborah Sabillon RN Specialty Clinical Rn Liaison Oncology 07/30/17 Clement Werner MD, MD [address] [place] [address] Physician Radiation Oncology 01/29/18 Vishal Jones MD [address] [place] [address] Home Care Provider Family Medicine 08/17/20 Maye Gonzalez MD [address] [place], [place] 341851 Consulting General Surgery 08/17/20 Dayna Mann RN [address] [place] [address] Carton Filler Post Acute Care 08/17/20 Maye Gonzalez MD [address] [place] [address] Referring General Surgery 08/23/20 Roxana Davis LISW [address] [place] [address] Dressing Machine Operator Hematology/Oncology 07/23/23 Resource Center Teacher Relationship Specialty Start Date End Date Vishal Jones MD [address] [place] [address] PCP - General Family Medicine 09/25/17 Deborah Sabillon RN Specialty Clinical Rn Liaison Oncology 07/30/17 Clement Werner MD, MD [address] [place] [address] Physician Radiation Oncology 01/29/18 Vishal Jones MD [address] [place] [address] Home Care Provider Family Medicine 08/17/20 Maye Gonzalez MD [address] [place] [address] Consulting General Surgery 08/17/20 Dayna Mann RN [address] [place] [place] [place] [address] Carton Filler Post Acute Care 08/17/20 Maye Gonzalez MD [address] [place] [address] Referring General Surgery 08/23/20 Roxana Davis LISW [address] [place] [address] Dressing Machine Operator Hematology/Oncology 07/23/23 Resource Center Teacher Relationship Specialty Start Date End Date Vishal Jones MD [address] [facility] [place] [address] PCP - General Family Medicine 09/25/17 Deborah Sabillon, RN Specialty Clinical Rn Liaison Oncology 07/30/17 Clement Werner MD, [address] [facility], [place] [address] Physician Radiation Oncology 01/29/18 Vishal Jones MD [address] [facility], [place] 56[address]91 Home Care Provider Family Medicine 08/17/20 Maye Gonzalez MD [address] [place] [address] Consulting General Surgery 08/17/20 Dayna Mann, ELIE [address] [place], [place] 639[address]31 Carton Filler Post Acute Care 08/17/20 Maye Gonzalez MD [address] [place] [address] Referring General Surgery 08/23/20 Roxana Davis LISW [address] [place] [address] Dressing Machine Operator Hematology/Oncology 07/23/23 Resource Center Teacher Relationship Specialty Start Date End Date Vishal Jones MD [address] [facility] [place] [address] PCP - General Family Medicine 09/25/17 Deborah Sabillon, RN Specialty Clinical Rn Liaison Oncology 07/30/17 Clement Werner MD [address] [place] [address] Physician Radiation Oncology 01/29/18 Vishal Jones MD [address] [facility], [place] 218811 Home Care Provider Family Medicine 08/17/20 Maye Gonzalez MD [address] [place], [place] 0035[address] Consulting General Surgery 08/17/20 Dayna Mann, ELIE [address] [place], [place] 47676[address] Carton Filler Post Acute Care 08/17/20 Maye Gonzalez MD [address] [address] Referring General Surgery 08/23/20 Roxana Davis LISW [address] [place] [address] Dressing Machine Operator Hematology/Oncology 07/23/23 Resource Center Teacher Relationship Specialty Start Date End Date Vishal Jones MD [address] [facility] [place] [address] PCP - General Family Medicine 09/25/17 Deborah Sabillon RN Specialty Clinical Rn Liaison Oncology 07/30/17 Clement Werner MD [address] [place] [address] Physician Radiation Oncology 01/29/18 Vishal Jones MD [address] [facility] [place] 796471 Home Care Provider Family Medicine 08/17/20 Maye Gonzalez MD [address] [place] 567[address] Consulting General Surgery 08/17/20 Dayna Mann, ELIE [address] [place] [address] Carton Filler Post Acute Care 08/17/20 Maye Gonzalez MD [address] [place] [address] Referring General Surgery 08/23/20 Roxana Davis LISW [address] [place] [address] Dressing Machine Operator Hematology/Oncology 07/23/23 Resource Center Teacher Relationship Specialty Start Date End Date Vishal Jones MD [address] [facility] [place] [address] PCP - General Family Medicine 09/25/17 Deborah Sabillon RN Specialty Clinical Rn Liaison Oncology 07/30/17 Clement Werner MD [address] [place] [address] Physician Radiation Oncology 01/29/18 Vishal Jones MD [address] [facility] [place] [address] Home Care Provider Family Medicine 08/17/20 Maye Gonzalez MD [address] [place] [address] Consulting General Surgery 08/17/20 Dayna Mann RN [address] [place], [place] 7372831 Carton Filler Post Acute Care 08/17/20 Maye Gonzalez MD [address] [place] [address] Referring General Surgery 08/23/20 Roxana aDvis LISW [address] [place] [address] Dressing Machine Operator Hematology/Oncology 07/23/23 Resource Center Teacher Relationship Specialty Start Date End Date Vishal Jones MD [address] [facility], [place] 804071 PCP - General Family Medicine 09/25/17 Deborah Sabillon, RN Specialty Clinical Rn Liaison Oncology 07/30/17 Clement Werner MD [address] [facility], [place] 10[address]51 Physician Radiation Oncology 01/29/18 Vishal Jones MD [address] [place], [place] 957571 Home Care Provider Family Medicine 08/17/20 Maye Gonzalez MD [address] [place] [address] Consulting General Surgery 08/17/20 Dayna Mann RN [address] [place], [place] 6500531 Carton Filler Post Acute Care 08/17/20 Maye Gonzalez MD [address] [place], [place] 105441 Referring General Surgery 08/23/20 Roxana Davis LISW [address] [place] [address] Dressing Machine Operator Hematology/Oncology 07/23/23 Resource Center Teacher Relationship Specialty Start Date End Date Vishal Jones MD [address] [facility] [place] [address] PCP - General Family Medicine 09/25/17 Deborah Sabillon, RN Specialty Clinical Rn Liaison Oncology 07/30/17 Clement Werner MD [address] [place], [place] 964081 Physician Radiation Oncology 01/29/18 Vishal Jones MD [address] [facility], [place] 846941 Home Care Provider Family Medicine 08/17/20 Maye Gonzalez MD [address] [place], [place] 291771 Consulting General Surgery 08/17/20 Dayna Mann, ELIE [address] [place], [place] 1867331 Carton Filler Post Acute Care 08/17/20 Maye Gonzalez MD [address] [address] Referring General Surgery 08/23/20 Roxana Davis LISW [address] [place] [address] Dressing Machine Operator Hematology/Oncology 07/23/23 Resource Center Teacher Relationship Specialty Start Date End Date Vishal Jones MD [address] [place], [place] 833371 PCP - General Family Medicine 09/25/17 Deborah Sabillon RN Specialty Clinical Rn Liaison Oncology 07/30/17 Clement Werner MD [address] [place] [address] Physician Radiation Oncology 01/29/18 Vishal Jones MD [address] [facility], [place] 678321 Home Care Provider Family Medicine 08/17/20 Maye Gonzalez MD [address] [place], [place] 693491 Consulting General Surgery 08/17/20 Dayna Mann RN [address] [place] [address] Carton Filler Post Acute Care 08/17/20 Maye Gonzalez MD [address] [place], [place] 376231 Referring General Surgery 08/23/20 Roxana Davis LISW [address] [place] [address] Dressing Machine Operator Hematology/Oncology 07/23/23 FOR RECORDS PERTAINING TO PATIENTS [...] BE BASED ON THE PRIMARY CLINICAL RECORDS. [facility] [employer] [facility] provides no warranty or guarantee of the accuracy or completeness of information in this document.
[2023-11-14 01:04] LABS: Anion Gap 6 (5-15); BUN 23 mg/dL (7-18); BUN/Creat Ratio 20.2 RATIO (10-20); CPK Total, Creatine Kinase 1000 U/L (39-308); Calcium,Total 9.6 mg/dL (8.5-10.1); Chloride 106 mmol/L (98-107); Creatinine, Serum 1.14 mg/dL (0.70-1.30); EST Glomerular Filtration Rate 65 mL/min (>60); Est Glom Filt Rate - Afr Amer 79 mL/min (>60); Glucose 92 mg/dL (74-106); Sodium Level 137 mmol/L (136-145)
[2023-11-14] MEDS: 0.9% Normal Saline (1000mL) 1,000 ML 999 ML IV (01:19)
--- NOTE | 2023-11-14 01:28 | PCM.HP.STD ---
[facility] - General General Date of Admission: 11/14/23 Date of Service: 11/14/23 Chief Complaint: Fall with LOC and prolonged downtime. HPI Narrative HOWIE MANZO, is a 83 M with a past medical history of essential hypertension, hyperlipidemia, overweight; with BMI of 27.2 this admission, coronary artery disease; status post inferior [place] with PTCA (1993), history of alcohol abuse; with patient allegedly sober for the past approximately 3 months, history of colon cancer; status post colectomy with colostomy, history of prostate cancer; status post radiation, BPH, overactive bladder, history of renal calculi, depression with anxiety, osteoarthritis; with chronic back pain on Buprenorphine patch, DNR-CCA CODE STATUS and recent admission here on October 31, 2023 for acute CVA on outpatient MRI done on October 30, 2023 that revealed small foci of acute infarct in the left and right occipital white matter who presents to [facility] ER complaining of fall with LOC and prolonged downtime. Mr. Manzo reports his symptoms began approximately 2 weeks ago with worsening balance and increasingly frequent falls since his recent stroke. He states that earlier in the evening around sunset he became unsteady and lost his balance from a standing position while attempting to lean forward on his cane and then subsequently striking his head. 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 He admits to taking aspirin daily but he denies taking any other antiplatelet or anticoagulation agents. He states that once he woke up on the floor he was able to activate EMS and then he was brought in for further evaluation and treatment. He denies associated fever, chills, nausea, vomiting, diarrhea or constipation. In the ER he was noted to have an elevated creatinine kinase of greater than 1,000 consistent with suspected rhabdomyolysis in the setting of generalized weakness with ambulatory dysfunction after recent CVA complicated by CT evidence of a new, age indeterminant superior endplate compression fracture of L2 resulting in ~10-20% height loss (with a head CT that was unremarkable for acute pathologic changes) and he was then admitted to the general medical floor for ongoing care for stay that is expected to be greater than 48 hours. [facility] Medical History Acute cerebrovascular accident (CVA) Adenocarcinoma Alcohol use Ambulates with cane Anxiety Arthritis Atherosclerosis of coronary artery of havasupai heart without angina pectoris Back pain BPH (benign prostatic hyperplasia) Bright's disease Cancer Cardiology follow-up encounter Chest pain Chewing tobacco nicotine dependence Chronic pain Chronic pain Cognitive impairment Colon cancer CVA (cerebral vascular accident) Depression Easy bruising Essential (primary) hypertension Fall Frequent falls Gait instability Hearing loss, left Hearing loss, right High cholesterol History of echocardiogram History of heart attack History of pain when walking History of prostate cancer History of radiation therapy History of stress test HLD (hyperlipidemia) Kidney disease Kidney stones Myocardial infarct Old inferior wall myocardial infarction Smoker Vision loss of left eye Vision loss of right eye Vitamin D deficiency Wears dentures Wears glasses Wears hearing aid Home Medications finasteride 5 mg tablet (Proscar) 5 mg PO DAILY prostate 01/27/18 [History Last Taken 10/31/23] aspirin 81 mg tablet,delayed release (Adult Low Dose Aspirin) 81 mg PO DAILY heart health 07/30/18 [History Last Taken 10/31/23] tamsulosin 0.4 mg capsule 0.4 mg PO QHS prostate 10/21/21 [History Last Taken 10/30/23] atenolol 25 mg tablet 12.5 mg PO QDAY blood pressure 07/15/22 [History Last Taken 10/31/23] isosorbide mononitrate 60 mg tablet,extended release 24 hr 60 mg PO DAILY heart #90 tabs 01/16/23 [Rx Last Taken 10/31/23] buprenorphine 10 mcg/hour weekly transdermal patch 1 patch transdermal FR pain 04/17/23 [History Last Taken 10/24/23] oxybutynin chloride 10 mg tablet,extended release 24 hr 10 mg PO DAILY overactive bladder 04/17/23 [History Last Taken 10/31/23] psyllium husk (aspartame) 3 gram oral powder packet (Daily Fiber (psyllium-aspartame)) 1 packet PO DAILY PRN loose stools #0 ea 04/20/23 [Rx Last Taken 04/18/23] acetaminophen 500 mg tablet 1,000 mg (2 x 500 mg) PO Q8 pain #0 tabs 05/02/23 [Rx Last Taken Unknown] nitroglycerin 0.4 mg sublingual tablet 0.4 mg sublingual Q5M PRN Chest Pain #25 tabs 05/12/23 [Rx Last Taken Unknown] atorvastatin 10 mg tablet 10 mg PO QHS cholesterol 10/31/23 [History Last Taken 10/30/23] bupropion HCl 150 mg tablet,12 hr sustained-release 150 mg PO Q12H pain 10/31/23 [History Last Taken 10/31/23] hydroxyzine HCl 25 mg tablet 12.5 mg PO Q8H 10/31/23 [History Last Taken Unknown] mirtazapine 45 mg tablet 45 mg PO QHS mental health 10/31/23 [History Last Taken 10/30/23] gabapentin 100 mg capsule 100 mg PO TID 11/14/23 [History Last Taken Unknown] Allergy/AdvReac Type Severity Reaction Status Date / Time No Known Allergies Allergy Verified 10/07/23 19:32 Family History Father Cancer skin cancer Mother Myocardial infarction Diabetes Other Fall Surgical History H/O percutaneous transluminal coronary angioplasty (11/13/93) History of angioplasty History of colostomy History of cystoscopy History of inguinal hernia repair, bilateral History of left heart catheterization (02/24/02) History of rotator cuff surgery Hx of appendectomy Hx of colectomy Status post trigger finger release Social History household members: none Smoking Status: Current every day smoker tobacco type: smokeless tobacco alcohol intake: current alcohol intake frequency: a few times a month Alcohol type: hard liquor substance use type: does not use caffeine: Yes Type: coffee Number of servings: 1 ROS ROS Narrative Review of systems: General: Patient denies fever or chills HENT: Denies headache, denies stuffy nose, denies sore throat EYES: Denies changes in vision or discharge from eyes Resp: Denies cough, denies shortness of breath Cardiac: Denies chest pain or palpitations GI: Denies abdominal pain, denies changes in bowel, denies nausea or vomiting : Denies changes in urination Extremity: Denies swelling Musculoskeletal: Feels somewhat generally weak with diffuse muscle pains Neuro: Patient admits to intermittent dizziness that is made worse with standing up with increasing frequent falls as per HPI Heme: Denies any bleeding or bruising Skin: Denies rashes Psychiatric: No complaints voiced related to uncontrolled depression or anxiety Endocrine: No polyuria, polydipsia or polyphagia The rest of the 14 point ROS was negative except for positives in HPI. Vital Signs Vital Signs Vital Signs: 11/14/23 00:07 11/14/23 00:07 11/14/23 01:22 Temperature 97.3 F L 97.2 F L Temperature Source Temporal Pulse Rate 103 H 89 Respiratory Rate 18 16 Respiratory Effort Normal Non-Labored Respiratory Depth Normal Respiratory Pattern Normal Blood Pressure 126/95 H 126/69 H Blood Pressure Mean 105 88 Pulse Ox 94 94 93 Oxygen Delivery Method Room Air Room Air Weight Weight: 173 lb 11.588 oz Body Mass Index (BMI) 27.1 Physical Exam Const alert, oriented x3 and no apparent distress General Appearance: cooperative HEENT normocephalic, hearing grossly normal bilaterally and moist oral mucous membranes HEENT Narrative: Patient has superficial abrasions to the left side of his face and scalp. Eyes PERRL and EOMs intact bilaterally Neck no lymphadenopathy and supple Resp normal respiratory effort, no retractions, no use of accessory muscles and clear to auscultation bilaterally Cardio regular rate and regular rhythm GI normal to inspection, nondistended, normoactive bowel sounds, soft to palpation, non-tender and non-distended Skin Skin Narrative: Patient has a skin tear to the left forearm with minimal bleeding and no signs of infection. Neuro oriented x3, CN's II-XII intact bilaterally, moves all extremities and no focal motor deficits Sensorium / Orientation: awake, alert, oriented to person, oriented to place and oriented to time Speech: speech normal Motor Exam: strength 5/5 throughout Psych affect normal Results Medical Records Data Attestation: I reviewed the patient's medical records Lab / Micro Data Attestation: I reviewed the patient's lab results. 11/14/23 03:15 11/14/23 03:15 Labs: Laboratory Results - last 24 hr 11/14/23 00:15: WBC 9.5, RBC 3.76 L, Hgb 11.2 L, Hct 34.1 L, MCV 90.7, MCH 29.8, MCHC 32.8, RDW Std Deviation 48.3 H, RDW Coeff of Kathryn 14.6, Plt Count 252, MPV 8.8, Immature Gran % (Auto) 0.500, Neut % (Auto) 84.9 H, Lymph % (Auto) 6.2 L, Archer % (Auto) 7.7, Eos % (Auto) 0.5, Baso % (Auto) 0.2, Absolute Neuts (auto) 8.0 H, Absolute Lymphs (auto) 0.59 L, Nucleated RBC % 0, Sodium 137, Potassium 4.0, Chloride 106, Carbon Dioxide 25.0, Anion Gap 6, BUN 23 H, Creatinine 1.14, Estim Creat Clear Calc 45.10, Est GFR (MDRD) Af Amer 79, Est GFR (MDRD) Non-Af 65, BUN/Creatinine Ratio 20.2 H, Glucose 92, Calcium 9.6, Total Creatine Kinase 1000 H Imaging Radiology Impression Brain CT 11/14/23 00:23 IMPRESSION: No acute intracranial finding. Electronically Signed: Kole Donato MD at 0:51 EST Reading Location ID and State: [facility] / ID Tel , Service support , Lumbar Spine X-Ray 11/14/23 00:23 IMPRESSION: * New, age indeterminant superior endplate compression fracture of L2 resulting in 10-20% height loss. * Lumbar spondylosis as described. Electronically Signed: Kole Donato MD at 1:03 EST Reading Location ID and State: [facility] / ID Tel , Service support , Pelvis X-Ray 11/14/23 00:23 IMPRESSION: No evidence of displaced pelvic or hip fracture. Electronically Signed: Kole Donato MD at 1:00 EST Reading [facility] [place] Tel , Service support , Assessment & Plan Assessment/Plan (1) Fall at home: QUALIFIERS: Encounter type: initial encounter Qualified Code(s): W19.XXXA - Unspecified fall, initial encounter; Y92.009 - Unspecified place in unspecified non-institutional (private) residence as the place of occurrence of the external cause (2) Rhabdomyolysis: QUALIFIERS: Encounter type: initial encounter Rhabdomyolysis type: traumatic Qualified Code(s): T79.6XXA - Traumatic ischemia of muscle, initial encounter (3) Closed compression fracture of lumbar vertebra: QUALIFIERS: Encounter type: initial encounter Lumbar vertebra fracture level: L2 Qualified Code(s): S32.020A - Wedge compression fracture of second lumbar vertebra, initial encounter for closed fracture (4) Adverse drug reaction: QUALIFIERS: Encounter type: initial encounter Qualified Code(s): T50.905A - Adverse effect of unspecified drugs, medicaments and biological substances, initial encounter (5) Recent cerebrovascular accident (CVA): PLAN: Plan 1. Rhabdomyolysis after fall with LOC and prolonged downtime evidenced by creatinine kinase of greater than 1,000 present on admission - Admit to general medical floor. Aggressively volume resuscitate and recheck CK in the a.m. to ensure improvement. 2. New, age indeterminant superior endplate compression fracture of L2 resulting in ~10-20% height loss in the setting of known OA; with chronic back pain complicating #1 - Noted. Place Lidoderm patch over lumbar spine. Give Tylenol as needed for mild to moderate (level 1-5 out of 10) pain or fever. Give morphine IV as needed for severe (level 6-10 out of 10) pain. 3. Recent admission here on October 31, 2023 for acute CVA on outpatient MRI done on October 30, 2023 that revealed small foci of acute infarct in the left and right occipital white matter with increasingly poor balance and frequent falls since that time compounding #1 & #2 - Noted. Patient may require ECF placement as he obviously cannot safely manage himself at home in his current condition. Finally, we will consult PT/OT and case management to see this patient on rounds in the a.m. for further recommendations regarding possible placement with help appreciated in advance. 4. History of alcohol abuse; with patient allegedly sober for the past approximately 3 months - Patient claims to be sober but we will check blood alcohol level and urine drug screen this admission. 5. Possible Adverse Drug Reaction to Buprenorphine patch adding to the pathologic processed outlined in #1 - #3 - Consider starting alternative agent to assess for potential improvement off this medication. 6. Essential hypertension - Continue home medications as previous. Give hydralazine IV as needed for systolic blood pressure greater than 160 mmHg. Avoid potentially nephrotoxic agents. 7. Hyperlipidemia - Resume statin with recent CVA. 8. Overweight; with BMI of 27.2 this admission - Weight loss will be recommended. 9. Coronary artery disease; status post inferior [place] with PTCA (1993) - Noted. 10. History of colon cancer; status post colectomy with colostomy - Noted. 11. History of prostate cancer; status post radiation - Noted. 12. BPH - Stable. Home regimen to be continued. 13. Overactive bladder - Stable. 14. History of renal calculi - Stable with no evidence of recurrence. 15. Depression with anxiety - Continue current management strategy. 16. DNR-CCA CODE STATUS - Noted. 17. DVT prophylaxis - Lovenox 40 mg sq daily. Total time: Approximately 55 minutes. Charges/Coding Visit Charges Inpatient E&M: 55634 Init Hosp L2
--- OUTSIDE RECORDS SUMMARY | 2023-11-14 02:08 | XMS RPT_ITS | CCD ---
Author Name Unknown Address [address] [place] [address] Organization [facility] Care Team Providers Care Waste Minimization Technician Name Role Phone Nikolay Villa Unavailable Unavailable Renetta DELGADILLO, Asha Noble Unavailable Unavailable ELIE Roger, Angélica Galicia Unavailable Unavailabl e Ann-Marie Fox Unavailable Ann-Marie Fox Unavailable MD Yuko, Mason S Unavailable Bradly Condon Unavailable Unavailable Nikolay [...] Care Unavailable TAMEKA MARSHALL Attending Unavailable TAMEKA MARSHALL Referring Unavailable ROBERT, VISHAL [...] TABS as needed as directed HYDROCODONE-ACETAMI WILLY [id number] Earl Huntley MD Problems Active Problems Problem [...] (14 sources) Long-term drug therapy; Translations: [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] Onset: 04-02-2011 02-23-2016 Episodic [...] 14:13-0500 Body weight 73.94 kg Ren Chua MANAGER PRODUCT MANAGEMENT.BARREL PAINTER Work Phone: [facility] 10-27-2023 14:13-0500 Diastolic blood pressure 68 mm[Hg] Ren Benjamin MANAGER PRODUCT MANAGEMENT.BARREL PAINTER Work Phone: [facility] 10-27-2023 14:13-0500 Heart rate 112 /min Ren Benjamin MANAGER PRODUCT MANAGEMENT.BARREL PAINTER Work Phone: [facility] 10-27-2023 14:13-0500 Respiratory rate 16 /min Ren Chua MANAGER PRODUCT MANAGEMENT.BARREL PAINTER Work Phone: [facility] 10-27-2023 14:13-0500 Systolic blood pressure 112 mm[Hg] Ren Benjamin MANAGER PRODUCT MANAGEMENT.BARREL PAINTER Work Phone: [facility] 08-01-2023 13:19-0500 Body weight 77.56 kg Ren Chua MANAGER PRODUCT MANAGEMENT.BARREL PAINTER Work Phone: [facility] 08-01-2023 13:19-0500 Diastolic blood pressure 62 mm[Hg] Ren Benjamin MANAGER PRODUCT MANAGEMENT.BARREL PAINTER Work Phone: [facility] 08-01-2023 13:19-0500 Heart rate 70 /min Ren Benjamin MANAGER PRODUCT MANAGEMENT.BARREL PAINTER Work Phone: [facility] 08-01-2023 13:19-0500 Respiratory rate 14 /min Ren Benjamin MANAGER PRODUCT MANAGEMENT.BARREL PAINTER Work Phone: [facility] 08-01-2023 13:19-0500 Systolic blood pressure 118 mm[Hg] Ren Knmarilia MANAGER PRODUCT MANAGEMENT.BARREL PAINTER Work Phone: [facility] 05-29-2023 14:26-0400 Body temperature 98.49 [degF] Kassandra Praisler-Wood MANAGER PRODUCT MANAGEMENT.BARREL PAINTER Work Phone: [facility] 05-29-2023 14:26-0400 Body weight 80.74 kg Kassandra Praisler-Wood MANAGER PRODUCT MANAGEMENT.BARREL PAINTER Work Phone: [facility] 05-29-2023 14:26-0400 Diastolic blood pressure 66 mm[Hg] Kassandra Praisler-Wood MANAGER PRODUCT MANAGEMENT.BARREL PAINTER Work Phone: [facility] 05-29-2023 14:26-0400 Heart rate 85 /min Kassandra Praisler-Wood MANAGER PRODUCT MANAGEMENT.BARREL PAINTER Work Phone: [facility] 05-29-2023 14:26-0400 Respiratory rate 23 /min Kassandra Praisler-Wood MANAGER PRODUCT MANAGEMENT.BARREL PAINTER Work Phone: [facility] 05-29-2023 14:26-0400 SaO2% (BldA) [Mass fraction] 99 % Kassandra Praisler-Wood MANAGER PRODUCT MANAGEMENT.BARREL PAINTER Work Phone: [facility] 05-29-2023 14:26-0400 Systolic blood pressure 132 mm[Hg] Kassandra Praisler-Wood MANAGER PRODUCT MANAGEMENT.BARREL PAINTER Work Phone: [facility] 05-07-2023 18:57-0400 Body temperature 98.29 [degF] Vishal Jones MD Work Phone: [facility] 05-07-2023 18:57-0400 Body weight 79.83 kg Vishal Jones MD Work Phone: [facility] 05-07-2023 18:57-0400 Diastolic blood pressure 72 mm[Hg] Vishal Jones MD Work Phone: [facility] 05-07-2023 18:57-0400 Heart rate 88 /min Vishal Jones MD Work Phone: [facility] 05-07-2023 18:57-0400 Respiratory rate 18 /min Vishal Jones MD Work Phone: [facility] 05-07-2023 18:57-0400 Systolic blood pressure 112 mm[Hg] Vishal Jones MD Work Phone: [facility] 04-01-2023 10:02-0400 Body temperature 97.81 [degF] Sam Greenberg DO Work Phone: [facility] 04-01-2023 10:02-0400 Body weight 82.56 kg Sam Greenberg DO Work Phone: [facility] 04-01-2023 10:02-0400 Diastolic blood pressure 91 mm[Hg] Sam Leei DO Work Phone: [facility] 04-01-2023 10:02-0400 Heart rate 92 /min Sam Leei DO Work Phone: [facility] 04-01-2023 10:02-0400 SaO2% (BldA) [Mass fraction] 97 % Sam Greenberg DO Work Phone: [facility] 04-01-2023 10:02-0400 Systolic blood pressure 154 mm[Hg] Sam Greenberg DO Work Phone: [facility] 03-27-2023 10:32-0400 Diastolic blood pressure 66 mm[Hg] Vishal Jones MD Work Phone: [facility] 03-27-2023 10:32-0400 Systolic blood pressure 132 mm[Hg] Vishal Jones MD Work Phone: [facility] 03-27-2023 09:55-0400 Body weight 83.92 kg Vishal Jones MD Work Phone: [facility] 03-27-2023 09:55-0400 Heart rate 91 /min Vishal Jones MD Work Phone: [facility] 03-27-2023 09:55-0400 Respiratory rate 18 /min Vishal Jones MD Work Phone: [facility] 03-27-2023 09:55-0400 SaO2% (BldA) [Mass fraction] 96 % Vishal Jones MD Work Phone: [facility] 01-15-2023 09:27-0400 Body temperature 98.01 [degF] Clement Werner MD, MD Work Phone: [facility] 01-15-2023 09:27-0400 Body weight 81.19 kg Clement Werner MD, MD Work Phone: [facility] 01-15-2023 09:27-0400 Diastolic blood pressure 81 mm[Hg] Clement Werner MD, MD Work Phone: [facility] 01-15-2023 09:27-0400 Heart rate 89 /min Clement Werner MD, MD Work Phone: [facility] 01-15-2023 09:27-0400 Respiratory rate 16 /min Clement Werner MD, MD Work Phone: [facility] 01-15-2023 09:27-0400 SaO2% (BldA) [Mass fraction] 97 % Clement Werner MD, MD Work Phone: [facility] 01-15-2023 09:27-0400 Systolic blood pressure 147 mm[Hg] Clement Werner MD, MD Work Phone: [facility] 01-01-2023 18:26-0400 Body weight 82.1 kg Vishal Jones MD Work Phone: [facility] 01-01-2023 18:26-0400 Diastolic blood pressure 76 mm[Hg] Vishal Jones MD Work Phone: [facility] 01-01-2023 18:26-0400 Heart rate 82 /min Vishal Jones MD Work Phone: [facility] 01-01-2023 18:26-0400 Respiratory rate 16 /min Vishal Jones MD Work Phone: [facility] 01-01-2023 18:26-0400 Systolic blood pressure 138 mm[Hg] Vishal Jones MD Work Phone: [facility] 12-20-2022 09:59-0400 Body temperature 98.6 [degF] Clement Werner MD, MD Work Phone: [facility] 12-20-2022 09:59-0400 Body weight 83.92 kg Clement Werner MD, MD Work Phone: [facility] 12-20-2022 09:59-0400 Diastolic blood pressure 72 mm[Hg] Clement Werner MD, MD Work Phone: [facility] 12-20-2022 09:59-0400 Heart rate 102 /min Clement Werner MD, MD Work Phone: [facility] 12-20-2022 09:59-0400 Respiratory rate 20 /min Clement Werner MD, MD Work Phone: [facility] 12-20-2022 09:59-0400 SaO2% (BldA) [Mass fraction] 98 % Clement Werner MD, MD Work Phone: [facility] 12-20-2022 09:59-0400 Systolic blood pressure 148 mm[Hg] Clement Werner MD, MD Work Phone: [facility] 11-15-2022 09:16-0500 Body weight 81.19 kg Vishal Jones MD Work Phone: [facility] 11-15-2022 09:16-0500 Diastolic blood pressure 60 mm[Hg] Vishal Jones MD Work Phone: [facility] 11-15-2022 09:16-0500 Heart rate 68 /min Vishal Jones MD Work Phone: [facility] 11-15-2022 09:16-0500 Systolic blood pressure 126 mm[Hg] Vishal Jones MD Work Phone: [facility] 10-21-2022 13:55-0500 Body temperature 99.5 [degF] Mikhail Liu Jr., MD Work Phone: [facility] 10-21-2022 13:55-0500 Body weight 79.11 kg Mikhail Liu Jr., MD Work Phone: [facility] 10-21-2022 13:55-0500 Diastolic blood pressure 64 mm[Hg] Mikhail Liu Jr., MD Work Phone: [facility] 10-21-2022 13:55-0500 Heart rate 87 /min Mikhail Liu Jr., MD Work Phone: [facility] 10-21-2022 13:55-0500 Respiratory rate 16 /min Mikhail Liu Jr., MD Work Phone: [facility] 10-21-2022 13:55-0500 SaO2% (BldA) [Mass fraction] 95 % Mikhail Liu Jr., MD Work Phone: [facility] 10-21-2022 13:55-0500 Systolic blood pressure 110 mm[Hg] Mikhail Liu Jr., MD Work Phone: [facility] 10-09-2022 15:04-0500 Body temperature 99.5 [degF] Vishal Jones MD Work Phone: [facility] 10-09-2022 15:04-0500 Body weight 80.29 kg Vishal Jones MD Work Phone: [facility] 10-09-2022 15:04-0500 Diastolic blood pressure 82 mm[Hg] Vishal Jones MD Work Phone: [facility] 10-09-2022 15:04-0500 Heart rate 88 /min Vishal Jones MD Work Phone: [facility] 10-09-2022 15:04-0500 Respiratory rate 16 /min Vishal Jones MD Work Phone: [facility] 10-09-2022 15:04-0500 Systolic blood pressure 142 mm[Hg] Vishal Jones MD Work Phone: [facility] 09-25-2022 13:23-0500 Body weight 80.74 kg Vishal Jones MD Work Phone: [facility] 09-25-2022 13:23-0500 Diastolic blood pressure 72 mm[Hg] Vishal Jones MD Work Phone: [facility] 09-25-2022 13:23-0500 Respiratory rate 18 /min Vishal Jones MD Work Phone: [facility] 09-25-2022 13:23-0500 Systolic blood pressure 136 mm[Hg] Vishal Jones MD Work Phone: [facility] 09-23-2022 10:14-0500 Body height 167.6 cm BRITTNEE Gonzalez MD Work Phone: [facility] 09-23-2022 10:14-0500 Body weight 79.38 kg BRITTNEE Gonzalez MD Work Phone: [facility] 09-23-2022 10:14-0500 Diastolic blood pressure 58 mm[Hg] BRITTNEE Gonzalez MD Work Phone: [facility] 09-23-2022 10:14-0500 Heart rate 114 /min BRITTNEE Gonzalez MD Work Phone: [facility] 09-23-2022 10:14-0500 Systolic blood pressure 116 mm[Hg] BRITTNEE Gonzalez MD Work Phone: [facility] 08-19-2022 15:27-0500 Body temperature 98.1 [degF] Mikhail Liu Jr., MD Work Phone: [facility] 08-19-2022 15:27-0500 Body weight 78.47 kg Mikhail Liu Jr., MD Work Phone: [facility] 08-19-2022 15:27-0500 Diastolic blood pressure 70 mm[Hg] Mikhail Liu Jr., MD Work Phone: [facility] 08-19-2022 15:27-0500 Heart rate 83 /min Mikhail Liu Jr., MD Work Phone: [facility] 08-19-2022 15:27-0500 Respiratory rate 18 /min Mikhail Liu Jr., MD Work Phone: [facility] 08-19-2022 15:27-0500 SaO2% (BldA) [Mass fraction] 96 % Mikhail Liu Jr., MD Work Phone: [facility] 08-19-2022 15:27-0500 Systolic blood pressure 112 mm[Hg] Mikhail Liu Jr., MD Work Phone: [facility] 07-24-2022 15:03-0500 Body temperature 99.5 [degF] Vishal Jones MD Work Phone: [facility] 07-24-2022 15:03-0500 Body weight 77.56 kg Vishal Jones MD Work Phone: [facility] 07-24-2022 15:03-0500 Diastolic blood pressure 72 mm[Hg] Vishal Jones MD Work Phone: [facility] 07-24-2022 15:03-0500 Heart rate 72 /min Vishal Jones MD Work Phone: [facility] 07-24-2022 15:03-0500 Respiratory rate 18 /min Vishal Jones MD Work Phone: [facility] 07-24-2022 15:03-0500 Systolic blood pressure 130 mm[Hg] Vishal Jones MD Work Phone: [facility] 07-15-2022 12:08-0400 Body temperature 100.71 [degF] Rebecca Rossi APRN.BARREL PAINTER Work Phone: [facility] 07-15-2022 12:08-0400 Body weight 75.75 kg Rebecca Rossi APRN.BARREL PAINTER Work Phone: [facility] 07-15-2022 12:08-0400 Diastolic blood pressure 86 mm[Hg] Rebecca Rossi APRN.BARREL PAINTER Work Phone: [facility] 07-15-2022 12:08-0400 Heart rate 120 /min Rebecca Rossi APRN.BARREL PAINTER Work Phone: [facility] 07-15-2022 12:08-0400 Respiratory rate 20 /min Rebecca Rossi APRN.BARREL PAINTER Work Phone: [facility] 07-15-2022 12:08-0400 SaO2% (BldA) [Mass fraction] 96 % Rebecca Rossi APRN.BARREL PAINTER Work Phone: [facility] 07-15-2022 12:08-0400 Systolic blood pressure 142 mm[Hg] Rebecca Rossi APRN.CNP Work Phone: [facility] 05-15-2022 09:50-0400 Body weight 78.02 kg Vihsal Jones MD Work Phone: [facility] 05-15-2022 09:50-0400 Diastolic blood pressure 70 mm[Hg] Vishal Jones MD Work Phone: [facility] 05-15-2022 09:50-0400 Heart rate 68 /min Vishal Jones MD Work Phone: [facility] 05-15-2022 09:50-0400 Respiratory rate 14 /min Vishal Jones MD Work Phone: [facility] 05-15-2022 09:50-0400 Systolic blood pressure 120 mm[Hg] Vishal Jones MD Work Phone: [facility] 03-26-2022 08:42-0400 Body height 169.5 cm Kaye Oneal DO Work Phone: [facility] 03-26-2022 08:42-0400 Body weight 77.56 kg Kaye Oneal DO Work Phone: [facility] 03-26-2022 08:42-0400 Diastolic blood pressure 71 mm[Hg] Kaye Oneal DO Work Phone: [facility] 03-26-2022 08:42-0400 Heart rate 82 /min Kaye Oneal DO Work Phone: [facility] 03-26-2022 08:42-0400 SaO2% (BldA) [Mass fraction] 98 % Kaye Oneal DO Work Phone: [facility] 03-26-2022 08:42-0400 Systolic blood pressure 132 mm[Hg] Kaye Oneal DO Work Phone: [facility] 03-25-2022 09:33-0400 Body weight 77.47 kg BRITTNEE Gonzalez MD Work Phone: [facility] 03-25-2022 09:33-0400 Diastolic blood pressure 60 mm[Hg] BRITTNEE Gonzalez MD Work Phone: [facility] 03-25-2022 09:33-0400 Heart rate 70 /min BRITTNEE Gonzalez MD Work Phone: [facility] 03-25-2022 09:33-0400 SaO2% (BldA) [Mass fraction] 98 % BRITTNEE Gonzalez MD Work Phone: [facility] 03-25-2022 09:33-0400 Systolic blood pressure 108 mm[Hg] BRITTNEE Gonzalez MD Work Phone: [facility] 03-21-2022 08:16-0400 Body temperature 98.91 [degF] Suffield Marshall MANAGER PRODUCT MANAGEMENT.BARREL PAINTER Work Phone: [facility] 03-21-2022 08:16-0400 Body weight 79.61 kg Suffield Marshall MANAGER PRODUCT MANAGEMENT.BARREL PAINTER Work Phone: [facility] 03-21-2022 08:16-0400 Diastolic blood pressure 70 mm[Hg] Tameka Marshall MANAGER PRODUCT MANAGEMENT.BARREL PAINTER Work Phone: [facility] 03-21-2022 08:16-0400 Heart rate 81 /min Tameka Marshall MANAGER PRODUCT MANAGEMENT.BARREL PAINTER Work Phone: [facility] 03-21-2022 08:16-0400 Systolic blood pressure 132 mm[Hg] Suffield Marshall MANAGER PRODUCT MANAGEMENT.BARREL PAINTER Work Phone: [facility] 12-14-2021 09:09-0400 Body temperature 97.9 [degF] Sharda WALLIS-C Work Phone: [facility] 12-14-2021 09:09-0400 Body weight 78.93 kg Sharda WALLIS-C Work Phone: [facility] 12-14-2021 09:09-0400 Diastolic blood pressure 62 mm[Hg] Sharda WALLIS-C Work Phone: [facility] 12-14-2021 09:09-0400 Heart rate 80 /min Sharda WALLIS-C Work Phone: [facility] 12-14-2021 09:09-0400 Respiratory rate 18 /min Sharda Carl PA-C Work Phone: [facility] 12-14-2021 09:09-0400 Systolic blood pressure 110 mm[Hg] Sharda Carl PA-C Work Phone: [facility] 12-08-2021 08:53-0400 Body weight 78.93 kg Vishal Jones MD Work Phone: [facility] 12-08-2021 08:53-0400 Diastolic blood pressure 66 mm[Hg] Vishal Jones MD Work Phone: [facility] 12-08-2021 08:53-0400 Heart rate 78 /min Vishal Jones MD Work Phone: [facility] 12-08-2021 08:53-0400 Respiratory rate 14 /min Vishal Jones MD Work Phone: [facility] 12-08-2021 08:53-0400 Systolic blood pressure 132 mm[Hg] Vishal Jones MD Work Phone: [facility] 08-05-2017 13:14-0500 BMI (Body Mass Index) 26.31 kg/m2 Marcelacullen Villa [facility] Work Phone: 08-05-2017 13:14-0500 Body weight 76.2 kg Nikolay Allen [facility] Work Phone: 08-05-2017 13:14-0500 BP Diastolic 58 mm[Hg] Nikolay Allen [facility] Work Phone: 08-05-2017 13:14-0500 BP Systolic 104 mm[Hg] Nikolay Allen [facility] Work Phone: 08-05-2017 13:14-0500 Height 170.18 cm Nikolay Allen [facility] Work Phone: 08-05-2017 13:14-0500 Pulse (Heart Rate) 72 /min [facility] Work Phone: 08-05-2017 13:14-0500 Respiratory Rate 20 /min [facility] Work Phone: 08-05-2017 13:14-0500 Weight 76.2 kg [facility] Work Phone: 01-28-2017 10:26-0400 Body height 170.18 cm Ann-Marie Fox Work Phone: [facility] Work Phone: 01-28-2017 10:26-0400 Body mass index (BMI) [Ratio] 26.54 kg/m2 Ann-Marie Fox Work Phone: [facility] Work Phone: 01-28-2017 10:26-0400 Body weight 76.89 kg Ann-Marie Fox Work Phone: [facility] Work Phone: 01-28-2017 10:26-0400 Diastolic blood pressure 50 mm[Hg] Ann-Marie Fox Work Phone: [facility] Work Phone: 01-28-2017 10:26-0400 Heart rate 64 /min Ann-Marie Fox Work Phone: [facility] Work Phone: 01-28-2017 10:26-0400 Respiratory rate 20 /min Ann-Marie Fox Work Phone: [facility] Work Phone: 01-28-2017 10:26-0400 Systolic [...] 10:04-0500 Body weight 80.29 kg ELIE Garcia [facility] Work Phone: 07-25-2016 10:04-0500 Diastolic blood pressure 70 mm[Hg] ELIE Garcia [facility] Work Phone: 07-25-2016 10:04-0500 Heart rate 60 /min ELIE Garcia [facility] Work Phone: 07-25-2016 10:04-0500 Respiratory rate 20 /min ELIE [facility] Work Phone: 07-25-2016 10:04-0500 Systolic blood pressure 126 mm[Hg] [facility] Work [facility]: 05-18-2014 09:29-0400 Body temperature 99 [degF] ELIE [facility] Work Phone: 03-08-2014 11:48-0400 Body height 170.18 cm Angélica Roger RN [facility] Work Phone: Encounters Encounter Date Encounter Type Care Provider Facility Start: 11-07-2023 Telephone encounter Vishal Jones MD Work Phone: [facility] Procedures Date Procedure Procedure Detail Performing Clinician Start: 10-27-2023 Urnls dip stick/tabl et rgnt auto w/o microscopy Ren Chua APRN.CNP Work Phone: Start: 07-09-2023 Ct abdomen & pelvis w/contrast material Sam Greenberg DO Work Phone: Start: 07-09-2023 Ct thorax w/contrast material Sam Greenberg DO Work Phone: Start: 07-09-2023 Blood count complete auto&auto difrntl wbc Suffield Marshall MANAGER PRODUCT MANAGEMENT.BARREL PAINTER Work Phone: Start: 03-10-2023 Ct abdomen & pelvis w/contrast material Sam Greenberg DO Work Phone: Start: 03-10-2023 Ct thorax w/contrast material Sam Greenberg DO Work Phone: Start: 12-03-[address] attenuation skull base mid-thigh Tameka Marshall MANAGER PRODUCT MANAGEMENT.BARREL PAINTER Work Phone: Start: 11-27-2022 Mri brain brain stem w/o contrast material Mikhail Liu MD Work Phone: Start: 11-07-2022 Ct abdomen & pelvis w/contrast material Suffield Marshall MANAGER PRODUCT MANAGEMENT.BARREL PAINTER Work Phone: Start: 11-07-2022 Basic metabolic pane l calcium total Suffield Marshall MANAGER PRODUCT MANAGEMENT.BARREL PAINTER Work Phone: Start: 11-07-2022 HEPATIC FUNCTION PNL Da rby Marshall MANAGER PRODUCT MANAGEMENT.BARREL PAINTER Work Phone: Start: 09-25-2022 [employer] COVI D-19 BIVALENT BOOSTER VACCINE, AGE 12+ YR Vishal Jones MD Work Phone: Start: 08-21-2022 Ct abdomen & pelvis w/contrast material Tameka Marshall MANAGER PRODUCT MANAGEMENT.BARREL PAINTER Work Phone: Start: 08-21-2022 Ct thorax w/contrast material Suffield Marshall MANAGER PRODUCT MANAGEMENT.BARREL PAINTER Work Phone: Start: 08-21-2022 Basic metabolic pane l calcium total Tameka Marshall MANAGER PRODUCT MANAGEMENT.BARREL PAINTER Work Phone: Start: 08-21-2022 HEPATIC FUNCTION PNL Da rby Marshall MANAGER PRODUCT MANAGEMENT.BARREL PAINTER Work Phone: Start: 07-29-2022 PSA screening [facility] Start: 07-24-2022 Urnls dip stick/tabl et rgnt auto w/o microscopy Vishal Jones MD Work Phone: Start: 07-15-2022 Urnls dip stick/tabl et rgnt auto w/o microscopy Rebecca Rossi MANAGER PRODUCT MANAGEMENT.BARREL PAINTER Work Phone: Start: 02-26-2022 Ct abdomen & pelvis w/contrast material Tameka Marshall MANAGER PRODUCT MANAGEMENT.BARREL PAINTER Work Phone: Start: 02-26-2022 Ct thorax w/contrast material Tameka Marshall MANAGER PRODUCT MANAGEMENT.BARREL PAINTER Work Phone: Start: 02-26-2022 Basic metabolic pane l calcium total Tameka Graysonenter MANAGER PRODUCT MANAGEMENT.BARREL PAINTER Work Phone: Start: 09-25-2017 History of placement of stent for coronary artery disease H/O heart artery stent Vishal Jones MD Work Phone: Start: 08-05-2017 End: 08-05-2017 HEATING AND VENTILATING WORKER Tito Crane MEDICAL REIMBURSEMENT MANAGER Work Phone: Start: 08-05-2017 End: 08-05-2017 Follow Up Appt 6 months Tito Crane MEDICAL REIMBURSEMENT MANAGER Work Phone: Start: 08-05-2017 End: 08-05-2017 Dietary management education, guidance, and counseling Nikolay Villa Start: 08-05-2017 End: 08-05-2017 Documentation of current medications Nikolay Villa Start: 08-05-2017 End: 08-05-2017 HEATING AND VENTILATING WORKER Tito Crane MEDICAL REIMBURSEMENT MANAGER Work Phone: Start: 08-05-2017 End: 08-05-2017 Follow Up Appt 6 months Tito Crane MEDICAL REIMBURSEMENT MANAGER Work Phone: Start: 01-28-2017 End: 01-30-2017 *Hepatic [...] End: 02-01-2017 *Hepatic Function Panel Amrita Osorio MEDICAL REIMBURSEMENT MANAGER Work Phone: Start: 07-25-2016 End: 07-25-2016 HEATING AND VENTILATING WORKER Amrita Osorio MEDICAL REIMBURSEMENT MANAGER Work Phone: Start: 07-25-2016 End: 07-25-2016 Follow Up Appt 6 months Amrita Monahanam MEDICAL REIMBURSEMENT MANAGER Work Phone: Start: 07-25-2016 End: 02-01-2017 Lipid 1996 panel - Serum or Plasma Amrita Monahanam MEDICAL REIMBURSEMENT MANAGER Work Phone: Start: 07-25-2016 End: 07-25-2016 Documentation of current medications Angélica Roger RN Start: 07-25-2016 End: 07-25-2016 HEATING AND VENTILATING WORKER Amrita Osorio MEDICAL REIMBURSEMENT MANAGER Work Phone: Start: 07-25-2016 End: 07-25-2016 Follow Up Appt 6 months Amrita Monahanam MEDICAL REIMBURSEMENT MANAGER Work Phone: Start: 07-25-2016 End: 02-01-2017 Hepatic function 2000 panel - Serum or Plasma Amrita Osorio MEDICAL REIMBURSEMENT MANAGER Work Phone: Start: 07-25-2016 End: 02-01-2017 Lipid 1996 panel - Serum or Plasma Amrita Osorio MEDICAL REIMBURSEMENT MANAGER Work Phone: Start: 03-05-2016 End: 03-05-2016 Follow [...] PA-C Work Phone: Start: 08-28-2015 End: 08-28-2015 HEATING AND VENTILATING WORKER Connie Martin PA-C Work Phone: Start: 08-28-2015 End: 08-28-2015 Follow Up Appt 6 months Connie valle PA-C Work Phone: Start: 08-28-2015 End: 08-28-2015 HEATING AND VENTILATING WORKER Connie Martin PA-C Work Phone: Start: 08-28-2015 [...] Panel Frida Son Start: 03-09-2015 End: 08-17-2015 HEATING AND VENTILATING WORKER Earl Huntley MD Start: 03-09-2015 End: 03-10-2015 [...] Earl Huntley MD Start: 09-06-2014 End: 09-06-2014 HEATING AND VENTILATING WORKER Connie Martin PA-C Work Phone: Start: 09-06-2014 End: 09-06-2014 Ecg routine ecg w/least 12 lds w/i&r Connie Martin PA-C Work Phone: Start: 09-06-2014 End: 09-06-2014 Follow Up Appt 6 months Connie valle PA-C Work Phone: Start: 09-06-2014 End: 09-06-2014 HEATING AND VENTILATING WORKER Connie Martin PA-C Work Phone: Start: 09-06-2014 [...] Detail Author Start: 07-15-2032 Urine microalbumin profile [facility] Start: 02-03-2032 Urine microalbumin profile DTAP,TDAP,TD (4 - Td or Tdap) [facility] Start: 12-02-2029 Urine microalbumin profile DTAP,TDAP,TD (3 - Td or Tdap) [facility] Start: 09-18-2026 Diabetes Screening Diabetes Screening [facility] Start: 07-09-2026 Diabetes Screening Diabetes Screening [facility] Start: 03-27-2026 DIABETES SCREEN DIABETES SCREEN [facility] Start: 03-27-2026 Diabetes Screening Diabetes Screening [facility] Start: 02-25-2026 DIABETES SCREEN DIABETES SCREEN [facility] Start: 11-07-2025 DIABETES SCREEN DIABETES SCREEN [facility] Start: 09-25-2025 DIABETES SCREEN DIABETES SCREEN [facility] Start: 08-21-2025 DIABETES SCREEN DIABETES SCREEN [facility] Start: 03-12-2025 DIABETES SCREEN DIABETES SCREEN [facility] Start: 02-26-2025 DIABETES SCREEN DIABETES SCREEN [facility] Start: 01-30-2025 DIABETES SCREEN DIABETES SCREEN [facility] Start: 12-14-2024 DIABETES SCREEN DIABETES SCREEN [facility] Start: 11-12-2024 DIABETES SCREEN DIABETES SCREEN [facility] Start: 03-27-2024 Hepatitis B surface antibody level LDL CHOLESTEROL [facility] Start: 09-25-2023 Hepatitis B surface antibody level LDL CHOLESTEROL [facility] Start: 05-16-2023 Covid-19 Vaccine () Covid-19 Vaccine () [facility] Start: 05-16-2023 Influenza vaccination [facility] Start: 03-27-2023 End: 05-27-2023 LIPID PANEL, NONFASTING [facility] Work Phone: Immunizations Immunization Date Immunization Notes Care Provider Yulia haywood 10-15-2023 COVID-19 vaccine, ag e 12+ yr, season (PFIZER-BIONTECH) Ren Chua APRN.BARREL PAINTER Work Phone: [facility] 10-15-2023 influenza (HD-IIV4) vaccine, age 65+ yr, high dose, quadrivalent, PF (FLUZONE HIGH-DOSE) Ren Chua APRN.BARREL PAINTER Work Phone: [facility] 09-25-2022 COVID-19 booster vaccine, age 12+ yr, bivalent (PFIZER-BIONTECH) Vishal Jones MD Work Phone: [facility] 07-15-2022 tetanus toxoid, redu justin diphtheria toxoid, and acellular pertussis vaccine, adsorbed Vishal Jones MD Work Phone: [facility] Work Phone: 06-14-2022 influenza, high dose seasonal, preservative-free Lab/Port Wstr Work Phone: [facility] 06-14-2022 influenza virus vacc ine, unspecified formulation Kassandra Grady MANAGER PRODUCT MANAGEMENT.BARREL PAINTER Work Phone: [facility] 02-02-2022 tetanus toxoid, redu justin diphtheria toxoid, and acellular pertussis vaccine, adsorbed Lab/Port Wstr Work Phone: [facility] 07-18-2021 influenza, high-dose , quadrivalent vaccine (FLUZONE HIGH DOSE QUADRIVALENT) Vishal Jones MD Work Phone: [facility] 11-21-2020 COVID-19 vaccine, ag e 12+ yr ([employer] - PURPLE TOP) Vishal Jones MD Work Phone: [facility] Work Phone: 06-20-2020 zoster vaccine recombinant Vishal Jones MD Work Phone: [facility] 05-27-2020 influenza, high dose seasonal, preservative-free Vishal Jones MD Work Phone: [facility] 05-27-2020 influenza, injectabl e, quadrivalent, preservative free Vishal Jones MD Work Phone: [facility] 04-07-2020 zoster vaccine recombinant Vishal Jones MD Work Phone: [facility] 12-03-2019 hepatitis A vaccine, adult dosage Vishal Jones MD Work Phone: [facility] 12-03-2019 tetanus toxoid, redu justin diphtheria toxoid, and acellular pertussis vaccine, adsorbed Vishal Jones MD Work Phone: [facility] 08-17-2019 pneumococcal polysaccharide vaccine, 23 valent Vishal Jones MD Work Phone: [facility] 06-15-2019 influenza, high dose seasonal, preservative-free Vishal Jones MD Work Phone: [facility] 07-30-2018 pneumococcal conjuga te vaccine, 13 valent Vishal Jones MD Work Phone: [facility] 06-30-2018 influenza, high dose seasonal, preservative-free Vishal Jones MD Work Phone: [facility] 05-29-2017 diphtheria, tetanus toxoids and acellular pertussis vaccine Vishal Jones MD Work Phone: [facility] 05-29-2017 influenza, seasonal, injectable, preservative free Vishal Jones MD Work Phone: [facility] 04-28-2016 influenza, high dose seasonal, preservative-free Vishal Jones MD Work Phone: [facility] 04-28-2016 zoster vaccine, live Vishal Jones MD Work Phone: [facility] Payers Date Payer Category Payer Medicare MEDICARE MEDICAR E A AND B [id number] 2004-Present [phone] [place] [address] Medicare [id number] 2004 Medicare MEDICARE MEDICAR E A AND B [id number] 2004-Present [phone] [place] [address] Medicare [id number] 2004 Medicare [id number] 1997 Unknown [employer] BS FEP PPO [id number] 1997-Present [phone] [address] [place] [address] PPO [id number] 1997 Unknown ANTHEM [facility] BS FEP PPO [id number] 1997-Present [phone] [address] [place] [address] PPO [id number] 1997 Unknown [id number] Social History Date Type Detail Facility Start: 07-24-2017 End: 05-15-2022 Tobacco smoking status NHIS Never smoked tobacco [facility] Start: 07-24-2017 End: 05-15-2022 Tobacco use and exposure User of smokeless tobacco [facility] History of tobacco use [facility] Start: 11-14-2021 End: 10-15-2023 Alcohol intake Current drinker of alcohol (finding) [facility] Start: 11-14-2021 End: 01-15-2023 Alcohol intake [facility] Work Phone: Start: 07-31-2020 History SDOH Alcohol Frequency 4 [facility] Start: 08-08-2020 History SDOH Financial 5 [facility] Start: 08-08-2020 History SDOH Food Worry 1 [facility] Start: 08-08-2020 History SDOH Transport Med 2 [facility] Start: 1940 Sex Assigned At Not on file [facility] Start: 11-16-2021 End: 08-19-2022 Exposure to SARS-CoV-2 (event) Not sure [facility] Start: 02-25-2023 Alcohol Comment OCC [facility] Start: 07-31-2020 End: 01-15-2023 Alcohol Use Disorder Identification Test - Consumption [AUDIT-C] [facility] Work Phone: How often to you hav e a drink containing alcohol? 2-3 time sa week [facility] Work Phone: Average Number of Drinks Not on file [facility] Work Phone: (I/We) worried wheth er (my/our) food would run out before (I/we) got money to buy more. Never true [facility] Work Phone: Start: 05-07-2023 Alcohol Comment drinks two shots a night [facility] Start: 1940 Sex Assigned At Male [facility] Start: 08-24-2023 Gender identity Identifies as male gender (finding) [facility] Start: 08-24-2023 Sexual orientation Heterosexual (finding) [facility] Clinical Notes 01-28-2017 to 11-08-2023 Telephone [...] due to his dementia. Lorin Salinas #: [phone]. Thank you. documented in this encounter [facility] 10-31-2023 Miscellaneous Notes Notified and verbalized understanding Madisyn Shelton Cma Please let patient know their labs show no UTI. documented in this encounter [facility] 10-31-2023 Miscellaneous Notes Spoke with the [...] Chapincito Tomlin MD documented in this encounter [facility] 10-30-2023 Note HNO ID: [id number] Author: NYLA BYRNE, hothouse worker Service: Radiology Author Type: Acquisition Marketing Manager Type: Progress Notes Filed: 10/30/2023 15:37 Note [...] PATIENT PRESENTS WITH AN IMPLANTABLE OR ATTACHED TAPER AND FLOATER: No RADIOLOGY DEPARTMENT: MR; Exam(s) Completed: Head: Routine Brain NEUROQUANT PERIPHERAL IV DATA: Not applicable SIGNED BY: SREE Louis October 30, 2023 3:34 PM [facility] 10-30-2023 Miscellaneous Notes Spoke with patient's daughter, Rita. Given message from provider's office. She verbalizes understanding. Kiki Mas RN Left message for pt's daughter to contact office. Natalia Lopez LPN Let daughter know hip x-ray showed no fracture. documented in this encounter [facility] 10-30-2023 History of Present illness Narrative [...] PATIENT PRESENTS WITH AN IMPLANTABLE OR ATTACHED TAPER AND FLOATER: No RADIOLOGY DEPARTMENT: MR; Exam(s) Completed: Head: Routine Brain NEUROQUANT PERIPHERAL IV DATA: Not applicable SIGNED BY: Nyla Byrne hothouse worker October 30, 2023 3:34 PM documented in this encounter [facility] 10-30-2023 Miscellaneous Notes Patient has been [...] Natalia Lopez LPN. documented in this encounter [facility] 10-29-2023 Note [facility] 10-28-2023 Miscellaneous Notes Spoke with Lala and she indicated that they waiting on the Virtual video but no one signed on and they never back from them to reschedule. Please contact Lala [phone] to help reschedule the school social worker that Dr. Moya ordered. Sylvia Rossi MA [...] Tami Cotto LPN documented in this encounter [facility] 10-27-2023 Note [facility] 10-27-2023 History of Present illness Narrative [...] hd a partial cystectomy. Colostomy care ([facility]) 09/25/[address] (HCC) 09/25/2017 Coronary artery disease involving [place] coronary artery 09/25/[address] Siddiqui [id number] DDD (degenerative disc disease), lumbar 12/14/2021 Dementia [...] on till 03/15/2018 S/P colectomy History of UT (myocardial infarction) 1993 History of prostate cancer [...] Paroxysmal atrial fibrillation (HCC) s/p colectomy 2016. 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 Huntley-LAst visit 01/2019 Personal history of [...] Cancer Father Cancer Father skin Heart Mother [place] late 50's Stroke Mother Diabetes Mother Patient [...] have reviewed the Advanced Practice Registered Nurse (MANAGER PRODUCT MANAGEMENT) student's documentation and verified the findings in the note as written. Any additions or changes are noted in bold/italics. Ren Chua APRN.BARREL PAINTER documented in this encounter [facility] 10-15-2023 Note [facility] 10-08-2023 Note [facility] 09-18-2023 Note [facility] 09-01-2023 Note [facility] 09-01-2023 Note [facility] 08-26-2023 Note [facility] 08-26-2023 History of Present illness Narrative Images from the original note were not included. [facility] This visit was conducted as a virtual visit. I have communicated my name and active licensure. The patient's identity and physical location were verified at the time of this visit. Either the patient or their legal access representative has been informed of the risks and benefits of -- and alternatives to -- treatment through a remote evaluation and consents to proceed with the evaluation remotely. Date: August 26, 2023 Patient Name: Sam Hagen The [facility] was asked by Dr. Liu to evaluate Sam Hagen. Our recommendations of care will be communicated by shared medical record. Reason for Evaluation/Chief complaint: dementia of unknown etiology Accompanied by: Friend (Lala) who lives with Sam. SUBJECTIVE: HPI: Mr. Sam Hagen is a 83 year old left handed male who presents to the [facility] for an initial evaluation. Patient has been seen and referred by Dr. Mikhail Liu Jr. Patient has a pertinent PMHx significant for rectal cancer, H/o CAD (UT 1993; treated with PCI balloon angioplasty; no [...] place (HCC) 09/25/2017 Coronary artery disease involving [place] coronary artery 09/25/[address] Siddiqui [id number] DDD (degenerative disc disease), lumbar 12/14/2021 Dementia without behavioral disturbance ([facility]) Seeing Dr Liu Elevated hemoglobin A1c 07/30/2018 Essential hypertension 04/02/2011 Essential tremor 08/16/2019 SALAS (generalized anxiety disorder) 01/01/2023 Generalized weakness 06/18/2019 H/O heart artery stent 09/25/2017 4 stents 1993 History of DVT (deep vein thrombosis) 09/25/2017 1st clot end of Aug 2017, started on Eliquis 09/15/2017 needs to be on till 03/15/2018 S/P colectomy History of UT (myocardial infarction) 1993 History of prostate cancer [...] Paroxysmal atrial fibrillation (HCC) s/p colectomy 2016. 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 Huntley-LAst visit 01/2019 Personal history of [...] Cancer Father Cancer Father skin Heart Mother [place] late 50's Stroke Mother Diabetes Mother No [...] obvious thyromegaly or adenopathy. Neuro: Mental Status: Nelson Cognitive Assessment (MoCA) Today MoCA was not performed. MoCA was at Dr. Liu's office: MODIFIED MOCA: Cube copy: 0/1 Clock Draw: Incorrectly places large hand. 2/3 Namin/3 Immediate Recall: 5/5 Number repeat: (Incorrect reverse (changes number) 12 Sentence repeat: 2 Serial 7s: 848-88-04-79-72-65 3/3 Similar objects (I.e. banana and orange) 10/17 Orientation: 06/24/22, Hugo, Friday, 02/18 Delayed recall: 10/20 Cranial Nerves: CN III, CN IV, CN : EOMI CN VII: Face symmetric, no ptosis or facial droop LABS/DATA: Hemoglobin A1C Date Value Ref Range Status 03/27/2023 6.0 (H) 4.3 - 5.6 % Final Comment: [place] [employer] guidelines indicate that patients [...] which included preparing to see the patient, [id number] patient care, completing clinical documentation, obtaining and/or [...] 7:07 AM CC: Referring Physician: Mikhail Liu [address] [facility] [address] [facility] [id number] PCP: Vishal Jones [address] [place] [address] Patient Entered Data: Patient-Reported No flowsheet data [...] flowsheet data found. documented in this encounter [facility] 08-01-2023 Note [facility] 08-01-2023 History of Present illness Narrative [...] side 60-80% R side 40-60%. Consult to [facility] Bladder stone 09/25/[address] Bagley BPH [...] hd a partial cystectomy. Colostomy care ([facility]) 09/25/[address] ([facility]) 09/25/2017 Coronary artery disease involving [place] coronary artery 09/25/[address] Siddiqui [id number] DDD (degenerative disc disease), lumbar 12/14/2021 Dementia without behavioral disturbance ([facility]) Seeing Dr Liu Elevated hemoglobin A1c 07/30/2018 Essential hypertension 04/02/2011 Essential tremor 08/16/2019 SALAS (generalized anxiety disorder) 01/01/2023 Generalized weakness 06/18/2019 H/O heart artery stent 09/25/2017 4 stents 1993 History of DVT (deep vein thrombosis) 09/25/2017 1st clot end of Aug 2017, started on Eliquis 09/15/2017 needs to be on till 03/15/2018 S/P colectomy History of UT (myocardial infarction) 1993 History of prostate cancer seeing Dr. White Hyperlipidemia, mixed 09/25/[address] ([facility]) 06/13/2021 Living will on file at physician's [...] Paroxysmal atrial fibrillation (HCC) s/p colectomy 2016. 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 Huntley-LAst visit 01/2019 Personal history of [...] Cancer Father Cancer Father skin Heart Mother [place] late 50's Stroke Mother Diabetes Mother Patient [...] 150 MG TABLET,12 HR SUSTAINED-RELEASE Ren Chua APRN.BARREL PAINTER documented in this encounter [facility] 07-29-2023 Note [facility] 07-24-2023 Note [facility] 07-18-2023 Miscellaneous Notes [facility] Alejandra Farmer Ma Forms printed and given to provider Alejandra Farmer Ma Patient's significant other, Lala calling to say the DME patient will be using for ostomy supplies is [employer]. . This company may contact PCP office. Kiki Mas RN documented in this encounter [facility] 07-16-2023 Miscellaneous Notes Spoke with patient's [...] the diagnosis of dementia is ready for picket labor union. For guardianship she needs to go through the courts. I would suggest she talk with the wood strip block floor installer representing her father. Patient daughter Rita calling back and she is needing help, she wants to get guardianship over her father. She said he was in the ER for an hour and Dr discharged him home. She knows father will put up a fight and not go into jail. She said he is still driving his car and he was charged in court today, he asked for wood strip block floor installer, daughter said has continuance. Daughter said it is just getting to be more of a mess to handle. Patient daughter Rita Albert calling she had her father in [facility] ER Friday (07/11)and was released. Daughter said father has court hearing this morning for violating a restraining order, she needs note saying he has dementia. She said she may have to admit him to jail, having issues with father's girl friend concerning money and check book. Please advise documented in this encounter [facility] 07-14-2023 Note HNO ID: [id number] Author: Yeni Moore Ma Service: ? Author Type: ? Type: Progress Notes Filed: 07/14/2023 9:29 PM Note Text: Scan on 07/11/2023 10:43 PM by ProviderKvng PA-C: Consultation - Emergency Medicine [facility] 07-14-2023 History of Present illness Narrative Scan on 07/11/2023 10:43 PM by Kvng Dalal PA-C: Consultation - Emergency Medicine documented in this encounter [facility] 07-09-2023 Note [facility] 07-09-2023 History of Present illness Narrative [...] PERIPHERAL IV DATA: power port accessed by [employer] SIGNED BY: RT Arturo(Ever) July 09, 2023 4:04 PM documented in this encounter [facility] 06-30-2023 Miscellaneous Notes See TE dated 06/30/23. Olamide Verdin LPN Daughter/POARita, returned call from Dr. Liu office. Given message in previous encounter. Rita agreeable for patient to see [facility]. States she has to do something as she doesn't want him to hurt someone or himself. Please place referral and call her to schedule appt. Today Rita can be reached at [phone] Tomorrow can be reached at [phone] documented in this encounter [facility] 06-30-2023 Miscellaneous Notes Phone call placed [...] Yaz Michaels RN documented in this encounter [facility] 06-26-2023 Miscellaneous Notes Daughter returned call [...] appt. It may be time to consider parts counterman placement in a SNF with a dementia [...] Asha Frank LPN documented in this encounter [facility] 06-06-2023 Miscellaneous Notes TC to Rita, spoke briefly and notified Rita that concerns need to be addressed with Neuro. Call was dropped d/t cell studio receptionist. Regarding driving privilege's- Neuro revoked privilege's so again- Rita needs to speak with Neurology about behaviors, driving, etc. Juan Kimball LPN Please advise daughter that this questions and concerns should be addressed with Sam's neurologist. Also she should call the premium auditor. Per Dr. Liu's last office note Sam was informed he should not be driving. He may need admitted to local hospital for a Geripsych consult. Patient's daughter calls and states that they have taken away patient's keys so that patient could not drive. Patient found keys where they were hidden and took keys and drove off giving scale mechanic the bird stating f you and if [...] Dr. Jones can give her a call [phone]. Please review and advise, Nora Berry RN documented in this encounter [facility] 06-03-2023 Miscellaneous Notes Spoke with pt [...] daily at bedtime. documented in this encounter [facility] 05-29-2023 Note [facility] 05-29-2023 Instructions Kassandra Grady APRN.BARREL PAINTER - 05/29/2023 2:58 PM EDT ASSESSMENT/PLAN: 1. [...] FLU A/B + RSV E Bijan [employer] CATCH BASIN CLEANER Student TEACHING PROVIDER (Physician/PA/MANAGER PRODUCT MANAGEMENT) NOTE OF PERSONAL INVOLVEMENT IN CARE: I have personally seen and examined the patient and performed the medical decision-making components. I have reviewed the Advanced Practice Registered Nurse (MANAGER PRODUCT MANAGEMENT) Student's documentation and verified the findings in the note as written. Any additions or changes are noted in bold/italics. Signature: Kassandra Grady Date: 05/29/2023 Time: 2:58 PM documented in this encounter [facility] 05-29-2023 History of Present illness Narrative This note was created using [employer]. Subjective Sam Hagen is a 83 year [...] place (HCC) 09/25/2017 Coronary artery disease involving [place] coronary artery 09/25/[address] Siddiqui [id number] DDD (degenerative disc disease), lumbar 12/14/2021 Dementia [...] on till 03/15/2018 S/P colectomy History of [place] (myocardial infarction) 1993 History of prostate cancer [...] Paroxysmal atrial fibrillation (HCC) s/p colectomy 2016. 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 Huntley-LAst visit 01/2019 Personal history of [...] Cancer Father Cancer Father skin Heart Mother [place] late 50's Stroke Mother Diabetes Mother Social [...] FLU A/B + RSV E Bijan [employer] CLEANER Student TEACHING PROVIDER (Physician/PA/MANAGER PRODUCT MANAGEMENT) NOTE OF PERSONAL INVOLVEMENT IN CARE: I have personally seen and examined the patient and performed the medical decision-making components. I have reviewed the Advanced Practice Registered Nurse (MANAGER PRODUCT MANAGEMENT) Student's documentation and verified the findings in the note as written. Any additions or changes are noted in bold/italics. Signature: Kassandra Grady Date: 05/29/2023 Time: 2:58 PM documented in this encounter [facility] 05-20-2023 Note [facility] 05-20-2023 History of Present illness Narrative Patient's home health 485 form / care plan for certification period 05/08/2023 to 07/06/2023 reviewed and signed. Relevant medical records were reviewed. Changes were communicated to home health agency documented in this encounter [facility] 05-20-2023 Miscellaneous Notes Info noted. Zenaida from [facility] Home Health calling with OT plan of care, 2 visits weekly for 3 weeks working on fall prevention and balance training. This is delay of care since she had been on vacation. No return call is needed. documented in this encounter [facility] 05-16-2023 Miscellaneous Notes Peggy called and [...] User: JONNA SUN APRN.CNP Peggy calling from [facility] to report plan of care for patient and fdc will visit patient 1 time a week for 3 weeks. [facility] will work with patient on medication management. Patient c/o burning and urine is dark. Ok to collect urine for analysis? Please review and Advise, Nora Berry RN documented in this encounter [facility] 05-13-2023 Miscellaneous Notes Opened in Error documented in this encounter [facility] 05-13-2023 Miscellaneous Notes Noted. Rosie speech therapist from [facility] HH calling with update on pt. States she will be seeing patient 1x per week for 4 weeks for family dementia education. Barbara Olivares, RN documented in this encounter [facility] 05-12-2023 Miscellaneous Notes Spoke with patient's [...] for 180 days. Decreased per hospitalist at [facility] due to acute encephalopathy felt to be from [facility]. nitroglycerin sublingual (NITROQUICK) 0.4 mg SL tablet 25 tablet 1 Sig: Q5M Please review and advise. Shannon Gleason documented in this encounter [facility] 05-09-2023 Miscellaneous Notes Called and left detailed message on Pallavi identifiable VM with responses below from Provider. Notified Shannon that Rx has been sent to [facility]. If questions she is to call office and speak with Triage Nurse. Radha Ramirez Ma Let shannon know I'm ok with fdc and general farmworker consults. Also I sent in a script for the lipitor. I'm hesitant to restart the atenolol. It looks like he has probably been off it for the past 6 months and his BP in the office recently was 112/72. I would want nursing to monitor and up date me in a week or two. Shannon with [facility] PT calling and requesting Fdc and Cutting Table Operator orders for patient. Please call Shannon back at [phone] with reply. Shannon states she notes 3 [...] Meka Capps RN documented in this encounter [facility] 05-08-2023 Note HNO ID: [id number] Author: Yoko Osborn RN Service: ? Author Type: Registered Nurse Type: Progress Notes Filed: 05/08/2023 11:02 AM Note Text: no show. [facility] 05-08-2023 History of Present illness Narrative no show. documented in this encounter [facility] 05-07-2023 Note [facility] 05-07-2023 Instructions Vishal Jones MD - [...] Niranjan Tony for his fractured elbow. Call [phone]. documented in this encounter [facility] 05-07-2023 History of Present illness Narrative Chief Complaint Patient presents with: Hospital F/U HPI Sam Hagen is a 83 year old male who presents here today for hospital follow up. Office visit - hospital follow up Patient was admitted to [facility] on 04/17/2023 after a fall. C/o [...] not to drive. Is to be getting [facility] through [facility]. Says he has not heard from [...] hd a partial cystectomy. Colostomy care ([facility]) 09/25/[address] ([facility]) 09/25/2017 Coronary artery disease involving [place] coronary artery 09/25/[address] Siddiqui [id number] DDD (degenerative disc disease), lumbar 12/14/2021 Dementia without behavioral disturbance ([facility]) Seeing Dr Liu Elevated hemoglobin A1c 07/30/2018 Essential hypertension 04/02/2011 Essential tremor 08/16/2019 SALAS (generalized anxiety disorder) 01/01/2023 Generalized weakness 06/18/2019 H/O heart artery stent 09/25/2017 4 stents 1993 History of DVT (deep vein thrombosis) 09/25/2017 1st clot end of Aug 2017, started on Eliquis 09/15/2017 needs to be on till 03/15/2018 S/P colectomy History of UT (myocardial infarction) 1993 History of prostate cancer seeing Dr. White Hyperlipidemia, mixed 09/25/[address] ([facility]) 06/13/2021 Living will on file at physician's [...] Paroxysmal atrial fibrillation (HCC) s/p colectomy 2016. 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 Huntley-LAst visit 01/2019 Personal history of [...] Cancer Father Cancer Father skin Heart Mother [place] late 50's Stroke Mother Diabetes Mother Patient [...] which included preparing to see the patient, [id number] patient care, completing clinical documentation, performing a medically appropriate examination, counseling and educating the patient/family/caregiver and ordering medications, tests, or procedures. Vishal Jones MD documented in this encounter [facility] 05-06-2023 Miscellaneous Notes Left detailed message for [facility] Ting. Sylvia Rossi MA Let [facility] know I will follow and sign orders. Ok with delayed start. Ting from [facility] Home Health calling received orders for PT/OT/Speech for patient. Discharged 05/05 from [facility] TCU, falls, fractured left ulna. Asking if PCP would follow patient and sign orders? Asking for delay of care verbal order due to patient having follow up appt scheduled with PCP for 05/07, can not have visit with home health same day with insurance billing. Can not start care until or Friday with the patient. Please advise documented in this encounter [facility] 04-23-2023 Note HNO ID: [id number] Author: Tika Kearney LPN Service: ? Author Type: ? Type: Progress Notes Filed: 04/23/2023 3:22 PM Note Text: Scan on 04/23/2023 11:50 AM by Kvng Dalal PA-C [facility] 04-23-2023 History of Present illness Narrative Scan on 04/23/2023 11:50 AM by Kvng Dalal PA-C documented in this encounter [facility] 04-18-2023 Note [facility] 04-18-2023 History of Present illness Narrative ER/H&P Scan on 04/17/2023 6:48 PM by Kvng Dalal PA-C: Consultation - Emergency Medicine Scan on 04/17/2023 4:09 PM by Kvng Dalal PA-C documented in this encounter [facility] 04-17-2023 Note [facility] 04-17-2023 History of Present illness Narrative Scan on 04/17/2023 11:20 AM by ProviderKvng PA-C: X-ray Scan on 04/17/2023 11:18 AM by ProviderKvng PA-C: CT Scan Scan on 04/17/2023 1:22 PM by ProviderKvng PA-C: Ultrasound Scan on 04/17/2023 11:21 AM by ProviderKvng PA-C: X-ray documented in this encounter [facility] 04-17-2023 Note [facility] 04-02-2023 Miscellaneous Notes Noted. Spoke with [...] urine looks clear? documented in this encounter [facility] 04-02-2023 Miscellaneous Notes spoke with pts. Daughter, given information. Shreya Rita Drouhard, PLUG MACHINE OPERATOR Left message on daughters Vm (unidentified VM0 [...] Please advise daughter. documented in this encounter [facility] 04-01-2023 Note [facility] 04-01-2023 History of Present illness Narrative HPI: Sam Curry Hagen is a 82 year old male who presents here today for follow up rectal cancer. H/o CAD ([place] 1993; treated with PCI balloon angioplasty; no stent) and prostate cancer (tx with radiation x44 fx ~8 years ago). He presented to [facility] fall 2016 with symptoms of bowel obstruction. He underwent attempted colonoscopy but the procedure was aborted when the scope was not able to be passed through the rectum/sigmoid area. He was transferred to [facility]. He ultimately underwent a total colectomy along [...] the patient underwent total colectomy in 2017 ([id number]). Colon and Rectum Cancer Case Summary Procedure: [...] down the thigh. 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 Denies fevers or recent illness. Resp:denies [...] which included preparing to see the patient, cjwx-bx-ibad patient care, completing clinical documentation, obtaining and/or reviewing separately obtained history, performing a medically appropriate examination, counseling and educating the patient/family/caregiver, ordering medications, tests, or procedures, communicating with other HCPs (not separately reported), independently interpreting results (not separately reported), and communicating results to the patient/family/caregiver. Sam Greenberg DO documented in this encounter [facility] 03-27-2023 Note [facility] 03-27-2023 Instructions Vishal Jones MD - 03/27/2023 10:45 AM EDT Let your daughter know she should go to your appt with Dr. Liu tomorrow. Also it appears Dr. Liu placed a referral to see a neurosurgeon back in November/December and it was never set up by your daughter, though not sure she was aware. documented in this encounter [facility] 03-27-2023 Miscellaneous Notes Recommend formal neuro [...] an official letter from her Dad's legal [place] with what they are specifically asking. Contacted [...] issues Please fax to Rita (daughter) at: [phone] documented in this encounter [facility] 03-27-2023 History of Present illness Narrative Medicare Yearly Visit Medical B eligibilty date 03/15/17 Date of last exam 03/14/22 PAST MEDICAL HISTORY PAST MEDICAL HISTORY Diagnosis Date A-fib ([facility]) s/p colectomy 2016. 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 Bagley BPH with obstruction/lower urinary tract symptoms BPH with obstruction/lower urinary tract symptoms Dr. 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 Greenberg, Had extension into the bladder wall and hd a partial cystectomy. Colostomy care ([facility]) 09/25/[address] ([facility]) 09/25/2017 Coronary artery disease involving [place] coronary artery 09/25/[address] Huntley-Hugo [id number] Elevated hemoglobin A1c 07/30/2018 Essential hypertension 04/02/2011 Essential tremor 08/16/2019 Generalized weakness 06/18/2019 H/O heart artery stent 09/25/2017 4 stents 1993 History of DVT (deep vein thrombosis) 09/25/2017 1st clot end of Aug 2017, started on Eliquis 09/15/2017 needs to be on till 03/15/2018 S/P colectomy History of UT (myocardial infarction) 1993 History of prostate cancer [...] Cancer Father Cancer Father skin Heart Mother [place] late 50's Stroke Mother Diabetes Mother SOCIAL [...] has been seeing Dr. Lacy's at [facility] and he wants to take him to [...] follow up 11/15/2022 Patient was seen in [facility] ER on 10/31/2022 after a fall [...] PAST MEDICAL HISTORY Diagnosis Date A-fib ([facility]) s/p colectomy 2016. 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 Greenberg, Had extension into the bladder wall and hd a partial cystectomy. Colostomy care ([facility]) 09/25/[address] (HCC) 09/25/2017 Coronary artery disease involving [place] coronary artery 09/25/[address] Siddiqui [id number] DDD (degenerative disc disease), lumbar 12/14/2021 Elevated hemoglobin A1c 07/30/2018 Essential hypertension 04/02/2011 Essential tremor 08/16/2019 SALAS (generalized anxiety disorder) 01/01/2023 Generalized weakness 06/18/2019 H/O heart artery stent 09/25/2017 4 stents 1993 History of DVT (deep vein thrombosis) 09/25/2017 1st clot end of Aug 2017, started on Eliquis 09/15/2017 needs to be on till 03/15/2018 S/P colectomy History of UT (myocardial infarction) 1993 History of prostate cancer seeing Dr. White Hyperlipidemia, mixed 09/25/[address] ([facility]) 06/13/2021 Living will on file at physician's office 09/25/2022 DPA: Roseanne Albert, (daughter) Malignant neoplasm of ascending colon ([facility]) 07/29/2017 Malignant neoplasm of sigmoid colon (HCC) 07/29/2017 Medicare annual wellness visit, subsequent 07/30/2018 Medicare part B: 03/15/2017 last done: 08/17/2019 Mixed incontinence 02/16/2020 Nerve pain 09/25/2017 Right side hip and up the spine Parastomal hernia without obstruction or gangrene Personal history of colon cancer 12/18/2020 Primary insomnia 01/02/2021 Rectal cancer ([facility]) 10/12/2019 S/P total colectomy 07/16/2017 Secondary malignant [...] Cancer Father Cancer Father skin Heart Mother [place] late 50's Stroke Mother Diabetes Mother Patient [...] Lymph 1.00 - 4.00 k/uL 0.87 (L) Grundy% % 8.7 Abs Grundy <0.87 k/uL 0.48 Eosin% % 1.5 Abs [...] per cardio 6. Coronary artery disease involving [place] coronary artery of [place] heart without angina pectoris - ICD9: 414.01, [...] which included preparing to see the patient, [id number] patient care, completing clinical documentation, performing a medically appropriate examination, counseling and educating the patient/family/caregiver and ordering medications, tests, or procedures. Vishal Jones MD documented in this encounter [facility] 03-10-2023 Note [facility] 03-10-2023 History of Present illness Narrative [...] PERIPHERAL IV DATA: power port accessed by [employer] SIGNED BY: RT Arturo(R) March 10, 2023 1:49 PM documented in this encounter [facility] 03-10-2023 Note [facility] 03-10-2023 History of Present illness Narrative Patient is here for IVAD port flush per Nursing [place] protocol. IVAD is located in right upper chest. Site cleansed with Chloraprep IVAD accessed with a #20 gauge 3/4 non-coring Gripper needle Blood Return: Good Flushed with: 20 ml Normal Saline Non-coring needle left intact for CT. Opsite applied to puncture site. Port site negative for redness, edema or tenderness. Patient tolerated procedure well. documented in this encounter [facility] 02-25-2023 Note [facility] 02-21-2023 Miscellaneous Notes Spoke with patient and rescheduled as requested. Planning to move Dr. Greenberg's 8:30 pt. on 02/25 to pa at 8a.m. on 02/26. Sam will then be put in the [address] Greenberg's schedule at 8:30 on 02/25. Spoke with Fany regarding the above. Tameka Marshall APRN.BARREL PAINTER Dr Alphonso English wanted you to know that Sam is done with radiation and he will need follow up appointment with you. documented in this encounter [facility] 02-19-2023 Note [facility] 01-28-2023 Note HNO ID: [id number] Author: Natalia Lopez LPN Service: ? Author Type: ? Type: Progress Notes Filed: 01/28/2023 11:23 AM Note Text: Scan on 01/28/2023 9:41 AM by External Provider, PARuthannC: Consultation - Cardiology [facility] 01-23-2023 Note [facility] 01-23-2023 History of Present illness Narrative SAM HAGEN [id number] : 1940 01/23/2023 [facility] Department of Radiation Oncology RADIATION [...] PM Electronically Signed cc: Vishal Jones [address] [place] [address] Sam Greenberg [address] [facility] [address] documented in this encounter [facility] 01-15-2023 Note [facility] 01-15-2023 History of Present illness Narrative [...] Clement Werner MD documented in this encounter [facility] 01-15-2023 Nurse Note Radiation Therapy - Nursing Note (OTV) PATIENT NAME: Sam Hagen PATIENT January 15, 2023 [facility] FACILITY/LOCATION: [place] NURSING NOTE TYPE: left iliac node Subjective Data No c/o Additional Data Do you want to see a Inventory Associate? No Status: Patient is male Stress Scale: [...] Nikole Lamb RN documented in this encounter [facility] 01-02-2023 Miscellaneous Notes TC placed to [...] 2023 7:37 PM documented in this encounter [facility] 01-01-2023 Note [facility] 01-01-2023 History of Present illness Narrative [...] has been seeing Dr. Lacy's at [facility] and he wants to take him to [...] follow up 11/15/2022 Patient was seen in [facility] ER on 10/31/2022 after a fall [...] PAST MEDICAL HISTORY Diagnosis Date A-fib ([facility]) s/p colectomy 2016. 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 Greenberg, Had extension into the bladder wall and hd a partial cystectomy. Colostomy care ([facility]) 09/25/[address] ([facility]) 09/25/2017 Coronary artery disease involving [place] coronary artery 09/25/[address] Huntley-Hugo [id number] DDD (degenerative disc disease), lumbar 12/14/2021 Elevated hemoglobin A1c 07/30/2018 Essential hypertension 04/02/2011 Essential tremor 08/16/2019 Generalized weakness 06/18/2019 H/O heart artery stent 09/25/2017 4 stents 1993 History of DVT (deep vein thrombosis) 09/25/2017 1st clot end of Aug 2017, started on Eliquis 09/15/2017 needs to be on till 03/15/2018 S/P colectomy History of UT (myocardial infarction) 1993 History of prostate cancer seeing Dr. White Hyperlipidemia, mixed 09/25/[address] ([facility]) 06/13/2021 Living will on file at physician's office 09/25/2022 DPA: Roseanne Albert, (daughter) Malignant neoplasm of ascending colon ([facility]) 07/29/2017 Malignant neoplasm of sigmoid colon ([facility]) 07/29/2017 Medicare annual wellness visit, subsequent 07/30/2018 [...] Cancer Father Cancer Father skin Heart Mother [place] late 50's Stroke Mother Diabetes Mother Patient [...] References: 1. Folstein MF, Folstein SE, [place]. Mini-Mental State: a practical method for grading [...] in patients with probable Alzheimer's disease. Neurology. 1992;42:[id number]. Geriatric Depression score: abnormal at 7 Lai's [...] which included preparing to see the patient, bfkx-bf-gruf patient care, completing clinical documentation, performing a medically appropriate examination, counseling and educating the patient/family/caregiver and ordering medications, tests, or procedures. Vishal Jones MD documented in this encounter [facility] 12-30-2022 Note [facility] 12-30-2022 Nurse Note Radiation Therapy - Patient Education Note PATIENT NAME: Sam Hagen PATIENT December 30, 2022 [facility] FACILITY/LOCATION: [place] READINESS TO LEARN Cognitive Ability: Alert and [...] handouts on Department phone list, Fatigue, and [place] instructions, XRT sheet and Aquaphor handout. Referral (recommendation): None, Pt denied need for social work, van service, and hall tender. Was approved? unknown Signed by: Nikole Lamb RN documented in this encounter [facility] 12-24-2022 Miscellaneous Notes Spoke to daughter [...] at work. Daughter requesting return call on [phone] Jones's office. Outcome: Informed daughter that I would send communication to Dr. Jones's office with her request. Reason for Disposition [1] Caller is not with the adult (patient) AND [2] probable NON-URGENT symptoms Protocols used: Information Only Call - No [id number]-[id number]-BW documented in this encounter [facility] 12-20-2022 Note [facility] 12-20-2022 Nurse Note Radiation Therapy - Nursing Note (Consult) PATIENT NAME: Sam Hagen PATIENT December 20, 2022 [facility] FACILITY/LOCATION: [place] Chief Complaint: Metastatic colon cancer Reason for visit: Consult. Referring physician: Internal provider Dr Greenberg Subjective Data: has spinal stenosis that is causing issues with pain- right low back and down leg, along with neuropathy Additional Data Do you want to see a Inventory Associate? No Are you interested in information about fertility? No Status: Patient is male Stress Scale: On a scale of 0 to 10, what number best describes how much distress you have experienced in the past week?(0 being no distress and 10 being extreme distress) 8 Social work notified: Pt denied need to see school social worker at this time. SIGNED by: Marion Greenberg RN documented in this encounter [facility] 12-20-2022 History of Present illness Narrative [...] of prostate cancer diagnosed in 2005 with [place] score 6 (3+3), PSA 12 and clinical [...] PAST MEDICAL HISTORY Diagnosis Date A-fib ([facility]) s/p colectomy 2016. 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 Greenberg, Had extension into the bladder wall and hd a partial cystectomy. Colostomy care ([facility]) 09/25/[address] ([facility]) 09/25/2017 Coronary artery disease involving [place] coronary artery 09/25/[address] Siddiqui [id number] DDD (degenerative disc disease), lumbar 12/14/2021 Elevated hemoglobin A1c 07/30/2018 Essential hypertension 04/02/2011 Essential tremor 08/16/2019 Generalized weakness 06/18/2019 H/O heart artery stent 09/25/2017 4 stents 1993 History of DVT (deep vein thrombosis) 09/25/2017 1st clot end of Aug 2017, started on Eliquis 09/15/2017 needs to be on till 03/15/2018 S/P colectomy History of UT (myocardial infarction) 1993 History of prostate cancer seeing Dr. White Hyperlipidemia, mixed 09/25/[address] ([facility]) 06/13/2021 Living will on file at physician's office 09/25/2022 DPA: Roseanne Albert, (daughter) Malignant neoplasm of ascending colon ([facility]) 07/29/2017 Malignant neoplasm of sigmoid colon ([facility]) 07/29/2017 Medicare annual wellness visit, subsequent 07/30/2018 [...] Cancer Father Cancer Father skin Heart Mother [place] late 50's Stroke Mother Diabetes Mother Social [...] that other personnel such as radiation therapists, non destructive evaluation manager, and physicists will participate in planning and delivery of radiation treatment. Permanent tattoo null will be placed to aid with positioning for daily treatment and the patient consented. Patient will have a simulation procedure within a week. Thank you very much for allowing us to participate in his care. Signed by: Clement Werner MD cc: Vishal Jones [address] [place] [address] Sam Greenberg [address] [facility] [address] documented in this encounter [facility] 12-18-2022 Note HNO ID: [id number] Author: Sylvia Rossi MA Service: ? Author Type: Deburrer Machine Type: Progress Notes Filed: 12/18/2022 3:14 PM Note Text: Scan on 12/12/2022 7:23 PM by External Provider: X-ray Sylvia Rossi MA [facility] 12-18-2022 History of Present illness Narrative Scan on 12/12/2022 7:23 PM by External Provider: X-ray Sylvia Rossi MA documented in this encounter [facility] 12-06-2022 Miscellaneous Notes I spoke with pt's daughter. Her concern is that pt has ankle bractlet on for home arrest thru [facility] and is wondering if we can do [...] and daughter agree. Thank you. Tameka Marshall APRN.BARREL PAINTER Patient's daughter, Rita, called to get the results of PET Scan. Please advise. Nora Mansfield documented in this encounter [facility] 12-03-2022 History of Present illness Narrative [...] AM PAGER/CONTACT #: documented in this encounter [facility] 11-28-2022 Miscellaneous Notes 1st attempt unable to leave a message with patient, to return call to schedule consult with Spine Surgery. Please transfer patient to [phone] as they will need to speak with [...] Karuna Cannon LPN documented in this encounter [facility] 11-27-2022 Note [facility] 11-27-2022 History of Present illness Narrative [...] 2022 11:24 AM documented in this encounter [facility] 11-20-2022 Miscellaneous Notes TC to Rita to inform of below. A letter from Dr. Liu was signed and faxed to public health technologist Nora Ott on October 11 as requested by the family for patient to ankle bracelet removed to have scans completed. (Please see TE 10/01/22). At this point, family needs to contact [facility]'s department or public health technologist's office to clarify what is needed as letter has already been faxed as requested. BETY Putnam Spoke with [facility] dept, they instructed pt. To reschedule MRI. Shreya Villalta LPN message left on daughters work and mobile number . Contacted [facility] dept. Concerning pts. Ankle bracelet, also telephone note sent to inDr. Liu(ordering physician of MRI) that [facility] dept. Needed fax requesting that monitor be removed for procedure (mri) Fax letter to [phone]. Then spoke with Daughter Rita she stated [...] you. Tameka Marshall APRN.SOULEYMANE Please call daughter [phone] after 4 pm or [phone] before 4 pm. Patient's daughter Rita was [...] Sylvia Rossi MA documented in this encounter [facility] 11-15-2022 Note [facility] 11-15-2022 History of Present illness Narrative Chief Complaint Patient presents with: ED Follow-up HPI Sam Hagen is a 82 year old male who presents here today for ER Follow Up.. Patient was seen in [facility] ER on 10/31/2022 after a fall [...] PAST MEDICAL HISTORY Diagnosis Date A-fib (FORMER[facility]) s/p colectomy 2016. 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 Greenberg, Had extension into the bladder wall and hd a partial cystectomy. Colostomy care (FORM[facility]LY [facility]) 09/25/[address] ([facility]) 09/25/2017 Coronary artery disease involving [place] coronary artery 09/25/[address] Siddiqui [id number] DDD (degenerative disc disease), lumbar 12/14/2021 Elevated hemoglobin A1c 07/30/2018 Essential hypertension 04/02/2011 Essential tremor 08/16/2019 Generalized weakness 06/18/2019 H/O heart artery stent 09/25/2017 4 stents 1993 History of DVT (deep vein thrombosis) 09/25/2017 1st clot end of Aug 2017, started on Eliquis 09/15/2017 needs to be on till 03/15/2018 S/P colectomy History of UT (myocardial infarction) 1993 History of prostate cancer [...] Cancer Father Cancer Father skin Heart Mother [place] late 50's Stroke Mother Diabetes Mother Patient [...] Vishal Jones MD documented in this encounter [facility] 11-14-2022 Note [facility] 11-14-2022 Note HNO ID: [id number] Author: Shreya Villalta LPN Service: ? Author Type: LICENSED NURSE Type: Progress Notes Filed: 11/15/2022 2:24 PM Note Text: Est. Pt. , discuss recent labs 11/07 [facility] 11-08-2022 Miscellaneous Notes Patient's daughter notified [...] letter to patient's daughter if possible at [phone] or call her on her cell or work number at [phone] if more information Is required. documented in this encounter [facility] 11-07-2022 Note [facility] 11-07-2022 Note [facility] 11-07-2022 History of Present illness Narrative [...] TIME: 4:16 PM documented in this encounter [facility] 11-07-2022 History of Present illness Narrative Patient is here for IVAD port flush/blood draw per [facility] protocol. IVAD is located in left upper [...] tolerated procedure well. documented in this encounter [facility] 11-01-2022 Note [facility] 11-01-2022 History of Present illness Narrative [...] Sylvia Rossi MA documented in this encounter [facility] 10-28-2022 Miscellaneous Notes Patient has been [...] Brenda Najera Pss documented in this encounter [facility] 10-21-2022 History of Present illness Narrative [...] Diagnosis Date A-fib (HCC) s/p colectomy 2016. 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 Greenberg, Had extension into the bladder wall and hd a partial cystectomy. Colostomy care ([facility]) 09/25/[address] ([facility]) 09/25/2017 Coronary artery disease involving [place] coronary artery 09/25/[address] Siddiqui [id number] DDD (degenerative disc disease), lumbar 12/14/2021 Elevated hemoglobin A1c 07/30/2018 Essential hypertension 04/02/2011 Essential tremor 08/16/2019 Generalized weakness 06/18/2019 H/O heart artery stent 09/25/2017 4 stents 1993 History of DVT (deep vein thrombosis) 09/25/2017 1st clot end of Aug 2017, started on Eliquis 09/15/2017 needs to be on till 03/15/2018 S/P colectomy History of UT (myocardial infarction) 1993 History of prostate cancer seeing Dr. White Hyperlipidemia, mixed 09/25/[address] ([facility]) 06/13/2021 Living will on file at physician's office 09/25/2022 DPA: Roseanne Albert, (daughter) Malignant neoplasm of ascending colon ([facility]) 07/29/2017 Malignant neoplasm of sigmoid colon ([facility]) 07/29/2017 Medicare annual wellness visit, subsequent 07/30/2018 [...] Cancer Father Cancer Father skin Heart Mother [place] late 50's Stroke Mother Diabetes Mother SOCIAL [...] which included preparing to see the patient, [id number] patient care, completing clinical documentation, obtaining and/or reviewing separately obtained history, performing a medically appropriate examination, and counseling and educating the patient/family/caregiver. documented in this encounter [facility] 10-11-2022 Miscellaneous Notes Signed letter faxed to numbers provided below as requested. BETY Putnam TC to [place] to clarify what needs to be documented in the letter for patient to receive MRI. Cora stated the GPS bracelet needs to be removed for the patient to complete an MRI and that the MRI is necessary for the patients help based on the Drs recommendation. The letter can then be faxed to the public health technologist below. Please advise. Thank you. BETY Putnam Please reach out to the number attached and clarify what is needed. Thank you, Mikhail Liu MD Received telephone call from [facility] Cora. Param stated patient unable to [...] written fax letter to patient's public health technologist Nora Ott. Nora's fax: [phone] ATTN: Nora Ott Please review & advise. [...] Mikhail Liu MD documented in this encounter [facility] 10-09-2022 History of Present illness Narrative [...] PAST MEDICAL HISTORY Diagnosis Date A-fib ([facility]) s/p colectomy 2016. 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 Greenberg, Had extension into the bladder wall and hd a partial cystectomy. Colostomy care ([facility]) 09/25/[address] ([facility]) 09/25/2017 Coronary artery disease involving [place] coronary artery 09/25/[address] Siddiqui [id number] DDD (degenerative disc disease), lumbar 12/14/2021 Elevated hemoglobin A1c 07/30/2018 Essential hypertension 04/02/2011 Essential tremor 08/16/2019 Generalized weakness 06/18/2019 H/O heart artery stent 09/25/2017 4 stents 1993 History of DVT (deep vein thrombosis) 09/25/2017 1st clot end of Aug 2017, started on Eliquis 09/15/2017 needs to be on till 03/15/2018 S/P colectomy History of UT (myocardial infarction) 1993 History of prostate cancer seeing Dr. White Hyperlipidemia, mixed 09/25/[address] ([facility]) 06/13/2021 Living will on file at physician's office 09/25/2022 DPA: Roseanne Albert, (daughter) Malignant neoplasm of ascending colon ([facility]) 07/29/2017 Malignant neoplasm of sigmoid colon (HCC) [...] Cancer Father Cancer Father skin Heart Mother [place] late 50's Stroke Mother Diabetes Mother Patient [...] Vishal Jones MD documented in this encounter [facility] 10-09-2022 Miscellaneous Notes Patient came in [...] CBC/BMP/LFT's/CEA after above. Thank you. Tameka Marshall APRN.BARREL PAINTER documented in this encounter [facility] 09-30-2022 Miscellaneous Notes The following approved [...] repeat. Order placed. documented in this encounter [facility] 09-25-2022 History of Present illness Narrative [...] in the PM. Seeing Dr. [facility] at [facility]. Seeing Dr. Krause in vascular and Dr. Liu in neurology. Past medical history, appointments, medications, allergies reviewed. Previous Medical History PAST MEDICAL HISTORY Diagnosis Date A-fib (HCC) s/p colectomy 2016. 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 Colostomy care ([facility]) 09/25/[address] ([facility]) 09/25/2017 Coronary artery disease involving [place] coronary artery 09/25/[address] Siddiqui [id number] Elevated hemoglobin A1c 07/30/2018 Essential hypertension 04/02/2011 Essential tremor 08/16/2019 Generalized weakness 06/18/2019 H/O heart artery stent 09/25/2017 4 stents 1993 History of DVT (deep vein thrombosis) 09/25/2017 1st clot end of Aug 2017, started on Eliquis 09/15/2017 needs to be on till 03/15/2018 S/P colectomy History of UT (myocardial infarction) 1993 History of prostate cancer [...] Cancer Father Cancer Father skin Heart Mother [place] late 50's Stroke Mother Diabetes Mother Patient [...] Abs Lymph 1.00 - 4.00 k/uL 1.00 Grundy% % 8.6 Abs Grundy <0.87 k/uL 0.68 Eosin% % 1.4 Abs [...] check A1c 4. Coronary artery disease involving [place] coronary artery of [place] heart without angina pectoris - ICD9: 414.01, [...] Vishal Jones MD documented in this encounter [facility] 09-23-2022 History of Present illness Narrative Images from the original note were not included. Brittny Gonzalez MD General Surgery [address] [place] [address], [address] [place] [address] Patient referred by: Maye Gonzalez [id number] [facility] [address] HPI: Mr. Hagen is a 82 year [...] PAST MEDICAL HISTORY Diagnosis Date A-fib ([facility]) s/p colectomy 2016. 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 Greenberg, Had extension into the bladder wall and hd a partial cystectomy. Colostomy care ([facility]) 09/25/[address] ([facility]) 09/25/2017 Coronary artery disease involving [place] coronary artery 09/25/[address] Huntley-Hugo [id number] Elevated hemoglobin A1c 07/30/2018 Essential hypertension 04/02/2011 Essential tremor 08/16/2019 Generalized weakness 06/18/2019 H/O heart artery stent 09/25/2017 4 stents 1993 History of DVT (deep vein thrombosis) 09/25/2017 1st clot end of Aug 2017, started on Eliquis 09/15/2017 needs to be on till 03/15/2018 S/P colectomy History of UT (myocardial infarction) 1993 History of prostate cancer [...] Cancer Father Cancer Father skin Heart Mother [place] late 50's Stroke Mother Diabetes Mother Social [...] in LLQ-small amount of semiformed formed stool [place] mucosa; vague bulge underneath this but not [...] (HCC) Z93.2 4. Paroxysmal atrial fibrillation ([facility]) I48.0 5. History of colon cancer Z85.038 [...] This office note has been created using [employer] a speech recognition software program, and may contain errors including punctuation, grammar, spelling, gender, and inappropriate words or phrases that pertain to the sytem. documented in this encounter [facility] 09-13-2022 Miscellaneous Notes Patient identified by name and date of . I advised patient the urine culture showed that macrobid would likely be ineffective to treat his UTI. He states he is still having some dysuria. Bactrim sent to his pharmacy, patient advised to stop Macrobid and start Bactrim. He verbalized understanding. Kassandra Grady APRN.BARREL PAINTER documented in this encounter [facility] 09-10-2022 Miscellaneous Notes BJ with [facility] called in states the Pts phone wasn't working. Pt states he was having UTI like issues. He was having leaking and pain with urination. Let her know there were no open appointments and to have him come to EC. Let her know EC is open until 8 pm. documented in this encounter [facility] 08-27-2022 Miscellaneous Notes Form faxed to Form signed. Paperwork received and given to PCP for review. Sylvia Rossi MA [facility] calling and states they will be faxing request for supplies for patient to PCP office and confirming fax number. Fax number verified. Meka Capps RN documented in this encounter [facility] 08-21-2022 History of Present illness Narrative [...] PERIPHERAL IV DATA: power port accessed by [employer] SIGNED BY: RT Arturo(R) August 21, 2022 2:52 PM documented in this encounter [facility] 08-19-2022 History of Present illness Narrative [...] patient undergo an in-lab PSG. Pt requests [facility]. 7. Cognitive impairment - ICD9: 294.9, [...] PAST MEDICAL HISTORY Diagnosis Date A-fib ([facility]) s/p colectomy 2016. 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 Consult to [facility] Bladder stone 09/25/[address] Bagley BPH with obstruction/lower urinary tract symptoms BPH with obstruction/lower urinary tract symptoms Dr. 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 Greenberg, Had extension into the bladder wall and hd a partial cystectomy. Colostomy care ([facility]) 09/25/[address] ([facility]) 09/25/2017 Coronary artery disease involving [place] coronary artery 09/25/[address] Siddiqui [id number] Elevated hemoglobin A1c 07/30/2018 Essential hypertension 04/02/2011 Essential tremor 08/16/2019 Generalized weakness 06/18/2019 H/O heart artery stent 09/25/2017 4 stents 1993 History of DVT (deep vein thrombosis) 09/25/2017 1st clot end of Aug 2017, started on Eliquis 09/15/2017 needs to be on till 03/15/2018 S/P colectomy History of UT (myocardial infarction) 1993 History of prostate cancer seeing Dr. White Hyperlipidemia, mixed 09/25/2017 Malignant neoplasm of ascending colon ([facility]) 07/29/2017 Malignant neoplasm of sigmoid colon ([facility]) 07/29/2017 Medicare annual wellness visit, subsequent 07/30/2018 [...] Cancer Father Cancer Father skin Heart Mother [place] late 50's Stroke Mother Diabetes Mother SOCIAL [...] dysarthria; comprehension, naming, repetition intact. Serial 7s [id number]. Similarity of objects: 2/2. Clock drawing intact. [...] which included preparing to see the patient, [id number] patient care, completing clinical documentation, obtaining and/or reviewing separately obtained history, performing a medically appropriate examination, counseling and educating the patient/family/caregiver, independently interpreting results (not separately reported), and communicating results to the patient/family/caregiver. documented in this encounter [facility] 07-29-2022 Miscellaneous Notes Patient has been [...] Beverley Duff Pss documented in this encounter [facility] 07-24-2022 History of Present illness Narrative Chief Complaint Patient presents with: Pain: ER follow up on - fall on left shoulder/elbow HPI Sam Hagen is a 82 year old male who presents here today for ER Follow Up.. Patient also mentioned right hip pain and issues with urinating. Patient presented to [facility] ER on 07/15/2022 after having a [...] PAST MEDICAL HISTORY Diagnosis Date A-fib ([facility]) s/p colectomy 2016. 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 Consult to [facility] Bladder stone 09/25/[address] Bagley BPH with obstruction/lower urinary tract symptoms BPH with obstruction/lower urinary tract symptoms Dr. 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 Greenberg, Had extension into the bladder wall and hd a partial cystectomy. Colostomy care ([facility]) 09/25/[address] ([facility]) 09/25/2017 Coronary artery disease involving [place] coronary artery 09/25/[address] Siddiqui [id number] Elevated hemoglobin A1c 07/30/2018 Essential hypertension 04/02/2011 Essential tremor 08/16/2019 Generalized weakness 06/18/2019 H/O heart artery stent 09/25/2017 4 stents 1993 History of DVT (deep vein thrombosis) 09/25/2017 1st clot end of Aug 2017, started on Eliquis 09/15/2017 needs to be on till 03/15/2018 S/P colectomy History of UT (myocardial infarction) 1993 History of prostate cancer seeing Dr. White Hyperlipidemia, mixed 09/25/2017 Malignant neoplasm of ascending colon ([facility]) 07/29/2017 Malignant neoplasm of sigmoid colon ([facility]) 07/29/2017 Medicare annual wellness visit, subsequent 07/30/2018 [...] Cancer Father Cancer Father skin Heart Mother [place] late 50's Stroke Mother Diabetes Mother Patient [...] VACCINE Completed PNEUMOCOCCAL: 65+ Completed Data reviewed [facility] report from 07/15/2022 Component Latest Ref [...] Patient instructed on care. - referral to [facility]. 2. Dysuria - ICD9: 788.1, [...] Vishal Jones MD documented in this encounter [facility] 07-15-2022 History of Present illness Narrative [...] for full evaluation. documented in this encounter [facility] 06-20-2022 History of Present illness Narrative Patient is here for IVAD port flush/blood draw per [facility] protocol. IVAD is located in right upper [...] tolerated procedure well. documented in this encounter [facility] 06-06-2022 Miscellaneous Notes The following approved [...] advise. Leonid Ward documented in this encounter [facility] 05-15-2022 Instructions Vishal Jones MD - 05/15/2022 10:34 AM EDT Sam please contact your orthopedic spine providers office and let them know you saw vascular (Dr. Kaye Oneal with [facility] up on [address]) on 03/26/2022. documented in this encounter [facility] 05-15-2022 History of Present illness Narrative [...] Diagnosis Date A-fib (HCC) s/p colectomy 2016. 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 Siddiqui [id number] Elevated hemoglobin A1c 07/30/2018 Essential hypertension 04/02/2011 Essential tremor 08/16/2019 Generalized weakness 06/18/2019 H/O heart artery stent 09/25/2017 4 stents 1993 History of DVT (deep vein thrombosis) 09/25/2017 1st clot end of Aug 2017, started on Eliquis 09/15/2017 needs to be on till 03/15/2018 S/P colectomy History of UT (myocardial infarction) 1993 History of prostate cancer [...] Cancer Father Cancer Father skin Heart Mother [place] late 50's Stroke Mother Diabetes Mother Patient [...] which included preparing to see the patient, [id number] patient care, completing clinical documentation, performing a medically appropriate examination, counseling and educating the patient/family/caregiver and ordering medications, tests, or procedures. Vishal Jones MD documented in this encounter [facility] 05-06-2022 History of Present illness Narrative [...] Chase Westbrook PT documented in this encounter [facility] 04-30-2022 History of Present illness Narrative [...] Patient to be seen for Therapeutic exercise (38472);Neuromuscular re-education (81384);Manual therapy (15473);Therapeutic activities (44371);Self-prison management (44102);Patient/Family/Caregiver Education;Gait Training (24326) PLAN FOR NEXT VISIT: Progress LE strengthening. [...] Chase Westbrook PT documented in this encounter [facility] 04-18-2022 History of Present illness Narrative [...] Chase Westbrook PT documented in this encounter [facility] 03-28-2022 History of Present illness Narrative [...] Chase Westbrook PT documented in this encounter [facility] 03-26-2022 History of Present illness Narrative Images from the original note were not included. [facility] DEPARTMENT OF VASCULAR SURGERY OUTPATIENT VISIT DATE March 26, 2022 OUTPATIENT VISIT TYPE CONSULTATION SERVICE DATE: 03/26/2022 SERVICE TIME: 8:43 AM PRIMARY CARE PHYSICIAN: Vishal Jones MD REFERRING PROVIDER: Sharda Carl [address] [facility] [place] [address] Consult requested for an opinion regarding the [...] PAST MEDICAL HISTORY Diagnosis Date A-fib ([facility]) s/p colectomy 2016. 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 Bagley BPH with obstruction/lower urinary tract symptoms BPH with obstruction/lower urinary tract symptoms Dr. 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 Greenberg, Had extension into the bladder wall and hd a partial cystectomy. Colostomy care ([facility]) 09/25/[address] ([facility]) 09/25/2017 Coronary artery disease involving [place] coronary artery 09/25/[address] Siddiqui [id number] Elevated hemoglobin A1c 07/30/2018 Essential hypertension 04/02/2011 Essential tremor 08/16/2019 Generalized weakness 06/18/2019 H/O heart artery stent 09/25/2017 4 stents 1993 History of DVT (deep vein thrombosis) 09/25/2017 1st clot end of Aug 2017, started on Eliquis 09/15/2017 needs to be on till 03/15/2018 S/P colectomy History of UT (myocardial infarction) 1993 History of prostate cancer [...] Cancer Father Cancer Father skin Heart Mother [place] late 50's Stroke Mother Diabetes Mother MEDICATIONS: [...] TIME: 8:43 AM documented in this encounter [facility] 03-25-2022 History of Present illness Narrative Images from the original note were not included. Brittny Gonzalez MD General Surgery [address] [place] [address], [address] [place] [address] Patient referred by: Maye Gonzalez [address] [place] [address] HPI: Mr. Hagen is a 82 year [...] PAST MEDICAL HISTORY Diagnosis Date A-fib (FORM[facility]) s/p colectomy 2016. 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 Bagley BPH with obstruction/lower urinary tract symptoms BPH with obstruction/lower urinary tract symptoms Dr. 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 Greenberg, Had extension into the bladder wall and hd a partial cystectomy. Colostomy care ([facility]) 09/25/[address] ([facility]) 09/25/2017 Coronary artery disease involving [place] coronary artery 09/25/[address] Huntley-Hugo [id number] Elevated hemoglobin A1c 07/30/2018 Essential hypertension 04/02/2011 Essential tremor 08/16/2019 Generalized weakness 06/18/2019 H/O heart artery stent 09/25/2017 4 stents 1993 History of DVT (deep vein thrombosis) 09/25/2017 1st clot end of Aug 2017, started on Eliquis 09/15/2017 needs to be on till 03/15/2018 S/P colectomy History of UT (myocardial infarction) 1993 History of prostate cancer [...] Cancer Father Cancer Father skin Heart Mother [place] late 50's Stroke Mother Diabetes Mother Social [...] This office note has been created using [employer] a speech recognition software program, and may contain errors including punctuation, grammar, spelling, gender, and inappropriate words or phrases that pertain to the sytem. documented in this encounter [facility] 03-21-2022 History of Present illness Narrative Chief Complaint Patient presents with: Established Patient HPI: Sam Hagen is a 82 year old male who presents here today for follow up rectal cancer. Per Dr. Greenberg's previous note: H/o CAD (UT 1993; treated with PCI balloon angioplasty; no stent) and prostate cancer (tx with radiation x44 fx ~8 years ago). He presented to [facility] fall 2016 with symptoms of bowel obstruction. He underwent attempted colonoscopy but the procedure was aborted when the scope was not able to be passed through the rectum/sigmoid area. He was transferred to [facility]. He ultimately underwent a total colectomy along [...] the patient underwent total colectomy in 2017 ([id number]). Colon and Rectum Cancer Case Summary Procedure: [...] Lymph 1.00 - 4.00 k/uL 1.24 1.03 Grundy% % 9.9 8.1 Abs Grundy <0.87 k/uL 0.70 0.61 Eosin% % 2.0 [...] as necessary for today's visit. Tameka Marshall APRN.BARREL PAINTER documented in this encounter [facility] 03-21-2022 Nurse Note Est. Pt. Discuss recent labs and CT results. Shreya Villalta LPN documented in this encounter [facility] 03-08-2022 Miscellaneous Notes noted Patient calling [...] Sharda for 03/12/22. documented in this encounter [facility] 02-26-2022 History of Present illness Narrative Blood return verified. Gripper hooked to auto-injector. Ct completed. Line flushed with 20cc NSS and 5cc Heparin. Gripper D/C'd. Light dressing applied. Pt tolerated procedure well. No C/O's. Site without complication noted. Deepika Gavin RN documented in this encounter [facility] 02-26-2022 History of Present illness Narrative [...] PERIPHERAL IV DATA: power port accessed by [employer] SIGNED BY: RT Arturo(R) February 26, 2022 2:04 PM documented in this encounter [facility] 02-06-2022 Miscellaneous Notes Pt called and [...] surgery tomorrow. Please phone Coral with reply: [phone] Patient calling he is scheduled for back surgery tomorrow at [facility] per Dr Small. Patient asking if he is safe to have surgery done since he has carotid blockages? Patient does not know what time he is scheduled for yet. He said he is to be staying overnight at [facility]. Please advise documented in this encounter [facility] 01-31-2022 Miscellaneous Notes Patient notified. Verbalized understanding. ----- Message from Sharda Carl PA-C sent at 01/31/2022 8:45 AM EDT ----- Labs are normal. documented in this encounter [facility] 01-22-2022 History of Present illness Narrative Scan on 01/22/2022 11:12 AM by External Provider: Echo documented in this encounter [facility] 01-17-2022 Miscellaneous Notes Pt notified to [...] Radha Ramirez Ma Sam Hagen is calling iVshal Jones MD today he is calling: Pain level 9; requesting pain medication for right hip; stated he really needs something as soon as possible today. Patient has been identified by name and birthdate. Duration of symptoms: N/A Person calling: self Call patient at: at home [phone] (home) [phone] (cell) Was an appointment scheduled: No Closing statement: Symptom Call: Thank you for calling [facility], your call is very important. A nurse will call in approximately 2-4 hours during business hours. If this is an emergency, please contact 911. Beverley Garrett documented in this encounter [facility] 01-08-2022 Miscellaneous Notes Spoke to patient [...] calling: self Call patient at: at home [phone] (home) [phone] (cell) Was an appointment scheduled: No Closing statement: Results or non-symptom based questions: Thank you for calling [facility], your call will be returned within the next business day. Beverley Garrett documented in this encounter [facility] 12-14-2021 Instructions Sharda Carl PA-C - 12/14/2021 9:33 AM EDT Please get labs done. Can try Aquaphor at night to help moisturize skin. Follow up as scheduled otherwise. documented in this encounter [facility] 12-14-2021 History of Present illness Narrative [...] PAST MEDICAL HISTORY Diagnosis Date A-fib ([facility]) s/p colectomy 2016. 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 Bagley BPH with obstruction/lower urinary tract symptoms BPH with obstruction/lower urinary tract symptoms Dr. 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 Greenberg, Had extension into the bladder wall and hd a partial cystectomy. Colostomy care ([facility]) 09/25/[address] ([facility]) 09/25/2017 Coronary artery disease involving [place] coronary artery 09/25/[address] Huntley-Hugo [id number] Elevated hemoglobin A1c 07/30/2018 Essential hypertension 04/02/2011 Essential tremor 08/16/2019 Generalized weakness 06/18/2019 H/O heart artery stent 09/25/2017 4 stents 1994 History of DVT (deep vein thrombosis) 09/25/2017 1st clot end of Aug 2017, started on Eliquis 09/15/2017 needs to be on till 03/15/2018 S/P colectomy History of UT (myocardial infarction) 1993 History of prostate cancer [...] Cancer Father Cancer Father skin Heart Mother [place] late 50's Stroke Mother Diabetes Mother Patient [...] See above. 3. Coronary artery disease involving [place] coronary artery of [place] heart without angina pectoris - ICD9: 414.01, ICD10: I25.10 Continue with cardio 4. Paroxysmal atrial fibrillation (HCC) - ICD9: 427.31, ICD10: I48.0 Continue with cardio 5. Elevated hemoglobin A1c - ICD9: 790.29, ICD10: R73.09 Check labs 6. Hyperlipidemia, mixed - ICD9: 272.2, ICD10: E78.2 Await labs. Sharda Carl PA-C documented in this encounter [facility] 12-10-2021 History of Present illness Narrative Patient is here for IVAD port flush per [facility] protocol. IVAD is located in right upper chest. Site cleansed with Chloraprep IVAD accessed with a #20 gauge 3/4 non-coring Gripper needle Blood Return: Good Flushed with: 20 ml Normal Saline and 5 ml Heparin Lock Flush Non-coring needle removed. Paper tape applied to puncture site. Port site negative for redness, edema or tenderness. Patient tolerated procedure well. documented in this encounter [facility] 12-08-2021 History of Present illness Narrative [...] Diagnosis Date A-fib (HCC) s/p colectomy 2016. 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 Bagley BPH with obstruction/lower urinary tract symptoms BPH with obstruction/lower urinary tract symptoms Dr. 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 Greenberg, Had extension into the bladder wall and hd a partial cystectomy. Colostomy care ([facility]) 09/25/[address] ([facility]) 09/25/2017 Coronary artery disease involving [place] coronary artery 09/25/[address] Siddiqui [id number] Elevated hemoglobin A1c 07/30/2018 Essential hypertension 04/02/2011 Essential tremor 08/16/2019 Generalized weakness 06/18/2019 H/O heart artery stent 09/25/2017 4 stents 1993 History of DVT (deep vein thrombosis) 09/25/2017 1st clot end of Aug 2017, started on Eliquis 09/15/2017 needs to be on till 03/15/2018 S/P colectomy History of UT (myocardial infarction) 1993 History of prostate cancer seeing Dr. White Hyperlipidemia, mixed 09/25/2017 Malignant neoplasm of ascending colon (HCC) 07/29/2017 Malignant neoplasm of sigmoid colon ([facility]) 07/29/2017 Medicare annual wellness visit, subsequent 07/30/2018 [...] Cancer Father Cancer Father skin Heart Mother [place] late 50's Stroke Mother Diabetes Mother Patient [...] Vishal Jones MD documented in this encounter [facility] 12-05-2021 Miscellaneous Notes Pharmacy verified in [facility] Patient has been identified by name [...] Shannon Mcrae Pss documented in this encounter [facility] documented as of this encounter (statuses as of 12/08/2021) [facility] History of Past illness Narrative* Problem Noted Date Resolved Date Malnutrition of moderate degree 08/20/2020 12/08/2021 Pneumonia 07/19/2017 07/19/2017 Acute respiratory failure with hypoxia 7 07/10/2017 Aspiration pneumonitis 07/03/2017 7 Bowel obstruction 06/30/2017 07/10/2017 documented as of this encounter (statuses as of 12/10/2021) [facility] History of Past illness Narrative* Problem Noted Date Resolved Date Malnutrition of moderate degree 08/20/2020 12/08/2021 Pneumonia 07/19/2017 07/19/2017 Acute respiratory failure with hypoxia 7 07/10/2017 Aspiration pneumonitis 07/03/2017 7 Bowel obstruction 06/30/2017 07/10/2017 documented as of this encounter (statuses as of 12/14/2021) [facility] of Past illness Narrative* Problem Noted Date Resolved Date Malnutrition of moderate degree 08/20/2020 12/08/2021 Pneumonia 07/19/2017 07/19/2017 Acute respiratory failure with hypoxia 7 07/10/2017 Aspiration pneumonitis 07/03/2017 7 Bowel obstruction 06/30/2017 07/10/2017 documented as of this encounter (statuses as of 01/07/2022) [facility] of Past illness Narrative* Problem Noted Date Resolved Date Malnutrition of moderate degree 08/20/2020 12/08/2021 Pneumonia 07/19/2017 07/19/2017 Acute respiratory failure with hypoxia 7 07/10/2017 Aspiration pneumonitis 07/03/2017 7 Bowel obstruction 06/30/2017 07/10/2017 documented as of this encounter (statuses as of 01/08/2022) [facility] History of Past illness Narrative* Problem Noted Date Resolved Date Malnutrition of moderate degree 08/20/2020 12/08/2021 Pneumonia 07/19/2017 07/19/2017 Acute respiratory failure with hypoxia 7 07/10/2017 Aspiration pneumonitis 07/03/2017 7 Bowel obstruction 06/30/2017 07/10/2017 documented as of this encounter (statuses as of 01/17/2022) [facility] of Past illness Narrative* Problem Noted Date Resolved Date Malnutrition of moderate degree 08/20/2020 12/08/2021 Pneumonia 07/19/2017 07/19/2017 Acute respiratory failure with hypoxia 7 07/10/2017 Aspiration pneumonitis 07/03/2017 7 Bowel obstruction 06/30/2017 07/10/2017 documented as of this encounter (statuses as of 01/22/2022) [facility] of Past illness Narrative* Problem Noted Date Resolved Date Malnutrition of moderate degree 08/20/2020 12/08/2021 Pneumonia 07/19/2017 07/19/2017 Acute respiratory failure with hypoxia 7 07/10/2017 Aspiration pneumonitis 07/03/2017 7 Bowel obstruction 06/30/2017 07/10/2017 documented as of this encounter (statuses as of 01/31/2022) [facility] History of Past illness Narrative* Problem Noted Date Resolved Date Malnutrition of moderate degree 08/20/2020 12/08/2021 Pneumonia 07/19/2017 07/19/2017 Acute respiratory failure with hypoxia 7 07/10/2017 Aspiration pneumonitis 07/03/2017 7 Bowel obstruction 06/30/2017 07/10/2017 documented as of this encounter (statuses as of 02/06/2022) [facility] of Past illness Narrative* Problem Noted Date Resolved Date Malnutrition of moderate degree 08/20/2020 12/08/2021 Pneumonia 07/19/2017 07/19/2017 Acute respiratory failure with hypoxia 7 07/10/2017 Aspiration pneumonitis 07/03/2017 7 Bowel obstruction 06/30/2017 07/10/2017 documented as of this encounter (statuses as of 02/26/2022) [facility] of Past illness Narrative* Problem Noted Date Resolved Date Malnutrition of moderate degree 08/20/2020 12/08/2021 Pneumonia 07/19/2017 07/19/2017 Acute respiratory failure with hypoxia 7 07/10/2017 Aspiration pneumonitis 07/03/2017 7 Bowel obstruction 06/30/2017 07/10/2017 documented as of this encounter (statuses as of 02/27/2022) [facility] of Past illness Narrative* Problem Noted Date Resolved Date Malnutrition of moderate degree 08/20/2020 12/08/2021 Pneumonia 07/19/2017 07/19/2017 Acute respiratory failure with hypoxia 7 07/10/2017 Aspiration pneumonitis 07/03/2017 7 Bowel obstruction 06/30/2017 07/10/2017 documented as of this encounter (statuses as of 02/27/2022) [facility] of Past illness Narrative* Problem Noted Date Resolved Date Malnutrition of moderate degree 08/20/2020 12/08/2021 Pneumonia 07/19/2017 07/19/2017 Acute respiratory failure with hypoxia 7 07/10/2017 Aspiration pneumonitis 07/03/2017 7 Bowel obstruction 06/30/2017 07/10/2017 documented as of this encounter (statuses as of 03/08/2022) [facility] of Past illness Narrative* Problem Noted Date Resolved Date Malnutrition of moderate degree 08/20/2020 12/08/2021 Pneumonia 07/19/2017 07/19/2017 Acute respiratory failure with hypoxia 7 07/10/2017 Aspiration pneumonitis 07/03/2017 7 Bowel obstruction 06/30/2017 07/10/2017 documented as of this encounter (statuses as of 03/21/2022) [facility] of Past illness Narrative* Problem Noted Date Resolved Date Malnutrition of moderate degree 08/20/2020 12/08/2021 Pneumonia 07/19/2017 07/19/2017 Acute respiratory failure with hypoxia 7 07/10/2017 Aspiration pneumonitis 07/03/2017 7 Bowel obstruction 06/30/2017 07/10/2017 documented as of this encounter (statuses as of 03/21/2022) [facility] of Past illness Narrative* Problem Noted Date Resolved Date Malnutrition of moderate degree 08/20/2020 12/08/2021 Pneumonia 07/19/2017 07/19/2017 Acute respiratory failure with hypoxia 7 07/10/2017 Aspiration pneumonitis 07/03/2017 7 Bowel obstruction 06/30/2017 07/10/2017 documented as of this encounter (statuses as of 03/25/2022) [facility] of Past illness Narrative* Problem Noted Date Resolved Date Malnutrition of moderate degree 08/20/2020 12/08/2021 Pneumonia 07/19/2017 07/19/2017 Acute respiratory failure with hypoxia 7 07/10/2017 Aspiration pneumonitis 07/03/2017 7 Bowel obstruction 06/30/2017 07/10/2017 documented as of this encounter (statuses as of 03/28/2022) [facility] Past illness Narrative* Problem Noted Date Resolved Date Malnutrition of moderate degree 08/20/2020 12/08/2021 Pneumonia 07/19/2017 07/19/2017 Acute respiratory failure with hypoxia 7 07/10/2017 Aspiration pneumonitis 07/03/2017 7 Bowel obstruction 06/30/2017 07/10/2017 documented as of this encounter (statuses as of 04/11/2022) [facility] Past illness Narrative* Problem Noted Date Resolved Date Malnutrition of moderate degree 08/20/2020 12/08/2021 Pneumonia 07/19/2017 07/19/2017 Acute respiratory failure with hypoxia 7 07/10/2017 Aspiration pneumonitis 07/03/2017 7 Bowel obstruction 06/30/2017 07/10/2017 documented as of this encounter (statuses as of 04/18/2022) [facility] Past illness Narrative* Problem Noted Date Resolved Date Malnutrition of moderate degree 08/20/2020 12/08/2021 Pneumonia 07/19/2017 07/19/2017 Acute respiratory failure with hypoxia 7 07/10/2017 Aspiration pneumonitis 07/03/2017 7 Bowel obstruction 06/30/2017 07/10/2017 documented as of this encounter (statuses as of 04/30/2022) [facility] Past illness Narrative* Problem Noted Date Resolved Date Malnutrition of moderate degree 08/20/2020 12/08/2021 Pneumonia 07/19/2017 07/19/2017 Acute respiratory failure with hypoxia 7 07/10/2017 Aspiration pneumonitis 07/03/2017 7 Bowel obstruction 06/30/2017 07/10/2017 documented as of this encounter (statuses as of 05/06/2022) [facility] illness Narrative* Problem Noted Date Resolved Date Malnutrition of moderate degree 08/20/2020 12/08/2021 Pneumonia 07/19/2017 07/19/2017 Acute respiratory failure with hypoxia 7 07/10/2017 Aspiration pneumonitis 07/03/2017 7 Bowel obstruction 06/30/2017 07/10/2017 documented as of this encounter (statuses as of 05/15/2022) [facility] illness Narrative* Problem Noted Date Resolved Date Malnutrition of moderate degree 08/20/2020 12/08/2021 Pneumonia 07/19/2017 07/19/2017 Acute respiratory failure with hypoxia 7 07/10/2017 Aspiration pneumonitis 07/03/2017 7 Bowel obstruction 06/30/2017 07/10/2017 documented as of this encounter (statuses as of 06/06/2022) [facility] illness Narrative* Problem Noted Date Resolved Date Malnutrition of moderate degree 08/20/2020 12/08/2021 Pneumonia 07/19/2017 07/19/2017 Acute respiratory failure with hypoxia 7 07/10/2017 Aspiration pneumonitis 07/03/2017 7 Bowel obstruction 06/30/2017 07/10/2017 documented as of this encounter (statuses as of 06/20/2022) [facility] Narrative* Problem Noted Date Resolved Date Malnutrition of moderate degree 08/20/2020 12/08/2021 Pneumonia 07/19/2017 07/19/2017 Acute respiratory failure with hypoxia 7 07/10/2017 Aspiration pneumonitis 07/03/2017 7 Bowel obstruction 06/30/2017 07/10/2017 documented as of this encounter (statuses as of 07/15/2022) [facility] Narrative* Problem Noted Date Resolved Date Malnutrition of moderate degree 08/20/2020 12/08/2021 Pneumonia 07/19/2017 07/19/2017 Acute respiratory failure with hypoxia 7 07/10/2017 Aspiration pneumonitis 07/03/2017 7 Bowel obstruction 06/30/2017 07/10/2017 documented as of this encounter (statuses as of 07/18/2022) [facility] Narrative* Problem Noted Date Resolved Date Malnutrition of moderate degree 08/20/2020 12/08/2021 Pneumonia 07/19/2017 07/19/2017 Acute respiratory failure with hypoxia 7 07/10/2017 Aspiration pneumonitis 07/03/2017 7 Bowel obstruction 06/30/2017 07/10/2017 documented as of this encounter (statuses as of 07/25/2022) [facility] Narrative* Problem Noted Date Resolved Date Malnutrition of moderate degree 08/20/2020 12/08/2021 Pneumonia 07/19/2017 07/19/2017 Acute respiratory failure with hypoxia 7 07/10/2017 Aspiration pneumonitis 07/03/2017 7 Bowel obstruction 06/30/2017 07/10/2017 documented as of this encounter (statuses as of 07/29/2022) [facility] Narrative* Problem Noted Date Resolved Date Malnutrition of moderate degree 08/20/2020 12/08/2021 Pneumonia 07/19/2017 07/19/2017 Acute respiratory failure with hypoxia 7 07/10/2017 Aspiration pneumonitis 07/03/2017 7 Bowel obstruction 06/30/2017 07/10/2017 documented as of this encounter (statuses as of 07/30/2022) [facility] Narrative* Problem Noted Date Resolved Date Malnutrition of moderate degree 08/20/2020 12/08/2021 Pneumonia 07/19/2017 07/19/2017 Acute respiratory failure with hypoxia 7 07/10/2017 Aspiration pneumonitis 07/03/2017 7 Bowel obstruction 06/30/2017 07/10/2017 documented as of this encounter (statuses as of 08/19/2022) [facility] Narrative* Problem Noted Date Resolved Date Malnutrition of moderate degree 08/20/2020 12/08/2021 Pneumonia 07/19/2017 07/19/2017 Acute respiratory failure with hypoxia 7 07/10/2017 Aspiration pneumonitis 07/03/2017 7 Bowel obstruction 06/30/2017 07/10/2017 documented as of this encounter (statuses as of 08/21/2022) [facility] Narrative* Problem Noted Date Resolved Date Malnutrition of moderate degree 08/20/2020 12/08/2021 Pneumonia 07/19/2017 07/19/2017 Acute respiratory failure with hypoxia 7 07/10/2017 Aspiration pneumonitis 07/03/2017 7 Bowel obstruction 06/30/2017 07/10/2017 documented as of this encounter (statuses as of 08/27/2022) [facility] Narrative* Problem Noted Date Resolved Date Malnutrition of moderate degree 08/20/2020 12/08/2021 Pneumonia 07/19/2017 07/19/2017 Acute respiratory failure with hypoxia 7 07/10/2017 Aspiration pneumonitis 07/03/2017 7 Bowel obstruction 06/30/2017 07/10/2017 documented as of this encounter (statuses as of 09/16/2022) [facility] Narrative* Problem Noted Date Resolved Date Malnutrition of moderate degree 08/20/2020 12/08/2021 Pneumonia 07/19/2017 07/19/2017 Acute respiratory failure with hypoxia 7 07/10/2017 Aspiration pneumonitis 07/03/2017 7 Bowel obstruction 06/30/2017 07/10/2017 documented as of this encounter (statuses as of 09/18/2022) [facility] Narrative* Problem Noted Date Resolved Date Malnutrition of moderate degree 08/20/2020 12/08/2021 Pneumonia 07/19/2017 07/19/2017 Acute respiratory failure with hypoxia 7 07/10/2017 Aspiration pneumonitis 07/03/2017 7 Bowel obstruction 06/30/2017 07/10/2017 documented as of this encounter (statuses as of 09/24/2022) [facility]arrative* Problem Noted Date Resolved Date Malnutrition of moderate degree 08/20/2020 12/08/2021 Pneumonia 07/19/2017 07/19/2017 Acute respiratory failure with hypoxia 7 07/10/2017 Aspiration pneumonitis 07/03/2017 7 Bowel obstruction 06/30/2017 07/10/2017 documented as of this encounter (statuses as of 09/27/2022) [facility] History of Past illness Narrative* Problem Noted Date Resolved Date Malnutrition of moderate degree 08/20/2020 12/08/2021 Pneumonia 07/19/2017 07/19/2017 Acute respiratory failure with hypoxia 7 07/10/2017 Aspiration pneumonitis 07/03/2017 7 Bowel obstruction 06/30/2017 07/10/2017 documented as of this encounter (statuses as of 09/30/2022) [facility] History of Past illness Narrative* Problem Noted Date Resolved Date Malnutrition of moderate degree 08/20/2020 12/08/2021 Pneumonia 07/19/2017 07/19/2017 Acute respiratory failure with hypoxia 7 07/10/2017 Aspiration pneumonitis 07/03/2017 7 Bowel obstruction 06/30/2017 07/10/2017 documented as of this encounter (statuses as of 10/09/2022) [facility] History of Past illness Narrative* Problem Noted Date Resolved Date Malnutrition of moderate degree 08/20/2020 12/08/2021 Pneumonia 07/19/2017 07/19/2017 Acute respiratory failure with hypoxia 7 07/10/2017 Aspiration pneumonitis 07/03/2017 7 Bowel obstruction 06/30/2017 07/10/2017 documented as of this encounter (statuses as of 10/11/2022) [facility] History of Past illness Narrative* Problem Noted Date Resolved Date Malnutrition of moderate degree 08/20/2020 12/08/2021 Pneumonia 07/19/2017 07/19/2017 Acute respiratory failure with hypoxia 7 07/10/2017 Aspiration pneumonitis 07/03/2017 7 Bowel obstruction 06/30/2017 07/10/2017 documented as of this encounter (statuses as of 10/21/2022) [facility] History of Past illness Narrative* Problem Noted Date Resolved Date Malnutrition of moderate degree 08/20/2020 12/08/2021 Pneumonia 07/19/2017 07/19/2017 Acute respiratory failure with hypoxia 7 07/10/2017 Aspiration pneumonitis 07/03/2017 7 Bowel obstruction 06/30/2017 07/10/2017 documented as of this encounter (statuses as of 10/29/2022) [facility] History of Past illness Narrative* Problem Noted Date Resolved Date Malnutrition of moderate degree 08/20/2020 12/08/2021 Pneumonia 07/19/2017 07/19/2017 Acute respiratory failure with hypoxia 7 07/10/2017 Aspiration pneumonitis 07/03/2017 7 Bowel obstruction 06/30/2017 07/10/2017 documented as of this encounter (statuses as of 11/01/2022) [facility] History of Past illness Narrative* Problem Noted Date Resolved Date Malnutrition of moderate degree 08/20/2020 12/08/2021 Pneumonia 07/19/2017 07/19/2017 Acute respiratory failure with hypoxia 7 07/10/2017 Aspiration pneumonitis 07/03/2017 7 Bowel obstruction 06/30/2017 07/10/2017 documented as of this encounter (statuses as of 11/07/2022) [facility] History of Past illness Narrative* Problem Noted Date Resolved Date Malnutrition of moderate degree 08/20/2020 12/08/2021 Pneumonia 07/19/2017 07/19/2017 Acute respiratory failure with hypoxia 7 07/10/2017 Aspiration pneumonitis 07/03/2017 7 Bowel obstruction 06/30/2017 07/10/2017 documented as of this encounter (statuses as of 11/09/2022) [facility] History of Past illness Narrative* Problem Noted Date Resolved Date Malnutrition of moderate degree 08/20/2020 12/08/2021 Pneumonia 07/19/2017 07/19/2017 Acute respiratory failure with hypoxia 7 07/10/2017 Aspiration pneumonitis 07/03/2017 7 Bowel obstruction 06/30/2017 07/10/2017 documented as of this encounter (statuses as of 11/15/2022) [facility] History of Past illness Narrative* Problem Noted Date Resolved Date Malnutrition of moderate degree 08/20/2020 12/08/2021 Pneumonia 07/19/2017 07/19/2017 Acute respiratory failure with hypoxia 7 07/10/2017 Aspiration pneumonitis 07/03/2017 7 Bowel obstruction 06/30/2017 07/10/2017 documented as of this encounter (statuses as of 11/25/2022) [facility] History of Past illness Narrative* Problem Noted Date Resolved Date Malnutrition of moderate degree 08/20/2020 12/08/2021 Pneumonia 07/19/2017 07/19/2017 Acute respiratory failure with hypoxia 7 07/10/2017 Aspiration pneumonitis 07/03/2017 7 Bowel obstruction 06/30/2017 07/10/2017 documented as of this encounter (statuses as of 11/28/2022) [facility] History of Past illness Narrative* Problem Noted Date Resolved Date Malnutrition of moderate degree 08/20/2020 12/08/2021 Pneumonia 07/19/2017 07/19/2017 Acute respiratory failure with hypoxia 7 07/10/2017 Aspiration pneumonitis 07/03/2017 7 Bowel obstruction 06/30/2017 07/10/2017 documented as of this encounter (statuses as of 12/04/2022) [facility] History of Past illness Narrative* Problem Noted Date Resolved Date Malnutrition of moderate degree 08/20/2020 12/08/2021 Pneumonia 07/19/2017 07/19/2017 Acute respiratory failure with hypoxia 7 07/10/2017 Aspiration pneumonitis 07/03/2017 7 Bowel obstruction 06/30/2017 07/10/2017 documented as of this encounter (statuses as of 12/04/2022) [facility] History of Past illness Narrative* Problem Noted Date Resolved Date Malnutrition of moderate degree 08/20/2020 12/08/2021 Pneumonia 07/19/2017 07/19/2017 Acute respiratory failure with hypoxia 7 07/10/2017 Aspiration pneumonitis 07/03/2017 7 Bowel obstruction 06/30/2017 07/10/2017 documented as of this encounter (statuses as of 12/04/2022) [facility] History of Past illness Narrative* Problem Noted Date Resolved Date Malnutrition of moderate degree 08/20/2020 12/08/2021 Pneumonia 07/19/2017 07/19/2017 Acute respiratory failure with hypoxia 7 07/10/2017 Aspiration pneumonitis 07/03/2017 7 Bowel obstruction 06/30/2017 07/10/2017 documented as of this encounter (statuses as of 12/06/2022) [facility] History of Past illness Narrative* Problem Noted Date Resolved Date Malnutrition of moderate degree 08/20/2020 12/08/2021 Pneumonia 07/19/2017 07/19/2017 Acute respiratory failure with hypoxia 7 07/10/2017 Aspiration pneumonitis 07/03/2017 7 Bowel obstruction 06/30/2017 07/10/2017 documented as of this encounter (statuses as of 12/19/2022) [facility] History of Past illness Narrative* Problem Noted Date Resolved Date Malnutrition of moderate degree 08/20/2020 12/08/2021 Pneumonia 07/19/2017 07/19/2017 Acute respiratory failure with hypoxia 7 07/10/2017 Aspiration pneumonitis 07/03/2017 7 Bowel obstruction 06/30/2017 07/10/2017 documented as of this encounter (statuses as of 12/24/2022) [facility] History of Past illness Narrative* Problem Noted Date Resolved Date Malnutrition of moderate degree 08/20/2020 12/08/2021 Pneumonia 07/19/2017 07/19/2017 Acute respiratory failure with hypoxia 7 07/10/2017 Aspiration pneumonitis 07/03/2017 7 Bowel obstruction 06/30/2017 07/10/2017 documented as of this encounter (statuses as of 12/24/2022) [facility] History of Past illness Narrative* Problem Noted Date Resolved Date Malnutrition of moderate degree 08/20/2020 12/08/2021 Pneumonia 07/19/2017 07/19/2017 Acute respiratory failure with hypoxia 7 07/10/2017 Aspiration pneumonitis 07/03/2017 7 Bowel obstruction 06/30/2017 07/10/2017 documented as of this encounter (statuses as of 12/30/2022) [facility] History of Past illness Narrative* Problem Noted Date Resolved Date Malnutrition of moderate degree 08/20/2020 12/08/2021 Pneumonia 07/19/2017 07/19/2017 Acute respiratory failure with hypoxia 7 07/10/2017 Aspiration pneumonitis 07/03/2017 7 Bowel obstruction 06/30/2017 07/10/2017 documented as of this encounter (statuses as of 12/30/2022) [facility] History of Past illness Narrative* Problem Noted Date Resolved Date Malnutrition of moderate degree 08/20/2020 12/08/2021 Pneumonia 07/19/2017 07/19/2017 Acute respiratory failure with hypoxia 7 07/10/2017 Aspiration pneumonitis 07/03/2017 7 Bowel obstruction 06/30/2017 07/10/2017 documented as of this encounter (statuses as of 01/02/2023) [facility] History of Past illness Narrative* Problem Noted Date Resolved Date Malnutrition of moderate degree 08/20/2020 12/08/2021 Pneumonia 07/19/2017 07/19/2017 Acute respiratory failure with hypoxia 7 07/10/2017 Aspiration pneumonitis 07/03/2017 7 Bowel obstruction 06/30/2017 07/10/2017 documented as of this encounter (statuses as of 01/17/2023) [facility] History of Past illness Narrative* Problem Noted Date Resolved Date Malnutrition of moderate degree 08/20/2020 12/08/2021 Pneumonia 07/19/2017 07/19/2017 Acute respiratory failure with hypoxia 7 07/10/2017 Aspiration pneumonitis 07/03/2017 7 Bowel obstruction 06/30/2017 07/10/2017 documented as of this encounter (statuses as of 01/24/2023) [facility] History of Past illness Narrative* Problem Noted Date Resolved Date Malnutrition of moderate degree 08/20/2020 12/08/2021 Pneumonia 07/19/2017 07/19/2017 Acute respiratory failure with hypoxia 7 07/10/2017 Aspiration pneumonitis 07/03/2017 7 Bowel obstruction 06/30/2017 07/10/2017 documented as of this encounter (statuses as of 02/22/2023) [facility] History of Past illness Narrative* Problem Noted Date Resolved Date Malnutrition of moderate degree 08/20/2020 12/08/2021 Pneumonia 07/19/2017 07/19/2017 Acute respiratory failure with hypoxia 7 07/10/2017 Aspiration pneumonitis 07/03/2017 7 Bowel obstruction 06/30/2017 07/10/2017 documented as of this encounter (statuses as of 03/10/2023) [facility] History of Past illness Narrative* Problem Noted Date Diagnosed Date Resolved Date Malnutrition of moderate degree 08/20/2020 12/08/2021 Pneumonia 07/19/2017 07/19/2017 Acute respiratory failure with hypoxia 07/05/2017 07/10/2017 Aspiration pneumonitis 07/03/201707/10 Bowel obstruction 06/30/2017 07/10/2017 documented as of this encounter (statuses as of 03/27/2023) [facility] History of Past illness Narrative* Problem Noted Date Diagnosed Date Resolved Date Malnutrition of moderate degree 08/20/2020 12/08/2021 Pneumonia 07/19/2017 07/19/2017 Acute respiratory failure with hypoxia 07/05/2017 07/10/2017 Aspiration pneumonitis 07/03/201707/10 Bowel obstruction 06/30/2017 07/10/2017 documented as of this encounter (statuses as of 03/28/2023) [facility] History of Past illness Narrative* Problem Noted Date Diagnosed Date Resolved Date Malnutrition of moderate degree 08/20/2020 12/08/2021 Pneumonia 07/19/2017 07/19/2017 Acute respiratory failure with hypoxia 07/05/2017 07/10/2017 Aspiration pneumonitis 07/03/201707/10 Bowel obstruction 06/30/2017 07/10/2017 documented as of this encounter (statuses as of 04/01/2023) [facility] History of Past illness Narrative* Problem Noted Date Diagnosed Date Resolved Date Malnutrition of moderate degree 08/20/2020 12/08/2021 Pneumonia 07/19/2017 07/19/2017 Acute respiratory failure with hypoxia 07/05/2017 07/10/2017 Aspiration pneumonitis 07/03/201707/10 Bowel obstruction 06/30/2017 07/10/2017 documented as of this encounter (statuses as of 04/03/2023) [facility] History of Past illness Narrative* Problem Noted Date Diagnosed Date Resolved Date Malnutrition of moderate degree 08/20/2020 12/08/2021 Pneumonia 07/19/2017 07/19/2017 Acute respiratory failure with hypoxia 07/05/2017 07/10/2017 Aspiration pneumonitis 07/03/201707/10 Bowel obstruction 06/30/2017 07/10/2017 documented as of this encounter (statuses as of 04/10/2023) [facility] History of Past illness Narrative* Problem Noted Date Diagnosed Date Resolved Date Malnutrition of moderate degree 08/20/2020 12/08/2021 Pneumonia 07/19/2017 07/19/2017 Acute respiratory failure with hypoxia 07/05/2017 07/10/2017 Aspiration pneumonitis 07/03/201707/10 Bowel obstruction 06/30/2017 07/10/2017 documented as of this encounter (statuses as of 04/18/2023) [facility] History of Past illness Narrative* Problem Noted Date Diagnosed Date Resolved Date Malnutrition of moderate degree 08/20/2020 12/08/2021 Pneumonia 07/19/2017 07/19/2017 Acute respiratory failure with hypoxia 07/05/2017 07/10/2017 Aspiration pneumonitis 07/03/201707/10 Bowel obstruction 06/30/2017 07/10/2017 documented as of this encounter (statuses as of 04/18/2023) [facility] History of Past illness Narrative* Problem Noted Date Diagnosed Date Resolved Date Malnutrition of moderate degree 08/20/2020 12/08/2021 Pneumonia 07/19/2017 07/19/2017 Acute respiratory failure with hypoxia 07/05/2017 07/10/2017 Aspiration pneumonitis 07/03/201707/10 Bowel obstruction 06/30/2017 07/10/2017 documented as of this encounter (statuses as of 04/24/2023) [facility] History of Past illness Narrative* Problem Noted Date Diagnosed Date Resolved Date Malnutrition of moderate degree 08/20/2020 12/08/2021 Pneumonia 07/19/2017 07/19/2017 Acute respiratory failure with hypoxia 07/05/2017 07/10/2017 Aspiration pneumonitis 07/03/201707/10 Bowel obstruction 06/30/2017 07/10/2017 documented as of this encounter (statuses as of 05/06/2023) [facility] History of Past illness Narrative* Problem Noted Date Diagnosed Date Resolved Date Malnutrition of moderate degree 08/20/2020 12/08/2021 Pneumonia 07/19/2017 07/19/2017 Acute respiratory failure with hypoxia 07/05/2017 07/10/2017 Aspiration pneumonitis 07/03/201707/10 Bowel obstruction 06/30/2017 07/10/2017 documented as of this encounter (statuses as of 05/08/2023) [facility] History of Past illness Narrative* Problem Noted Date Diagnosed Date Resolved Date Malnutrition of moderate degree 08/20/2020 12/08/2021 Pneumonia 07/19/2017 07/19/2017 Acute respiratory failure with hypoxia 07/05/2017 07/10/2017 Aspiration pneumonitis 07/03/201707/10 Bowel obstruction 06/30/2017 07/10/2017 documented as of this encounter (statuses as of 05/08/2023) [facility] History of Past illness Narrative* Problem Noted Date Diagnosed Date Resolved Date Malnutrition of moderate degree 08/20/2020 12/08/2021 Pneumonia 07/19/2017 07/19/2017 Acute respiratory failure with hypoxia 07/05/2017 07/10/2017 Aspiration pneumonitis 07/03/201707/10 Bowel obstruction 06/30/2017 07/10/2017 documented as of this encounter (statuses as of 05/09/2023) [facility] History of Past illness Narrative* Problem Noted Date Diagnosed Date Resolved Date Malnutrition of moderate degree 08/20/2020 12/08/2021 Pneumonia 07/19/2017 07/19/2017 Acute respiratory failure with hypoxia 07/05/2017 07/10/2017 Aspiration pneumonitis 07/03/201707/10 Bowel obstruction 06/30/2017 07/10/2017 documented as of this encounter (statuses as of 05/09/2023) [facility] History of Past illness Narrative* Problem Noted Date Diagnosed Date Resolved Date Malnutrition of moderate degree 08/20/2020 12/08/2021 Pneumonia 07/19/2017 07/19/2017 Acute respiratory failure with hypoxia 07/05/2017 07/10/2017 Aspiration pneumonitis 07/03/201707/10 Bowel obstruction 06/30/2017 07/10/2017 documented as of this encounter (statuses as of 05/10/2023) [facility] History of Past illness Narrative* Problem Noted Date Diagnosed Date Resolved Date Malnutrition of moderate degree 08/20/2020 12/08/2021 Pneumonia 07/19/2017 07/19/2017 Acute respiratory failure with hypoxia 07/05/2017 07/10/2017 Aspiration pneumonitis 07/03/201707/10 Bowel obstruction 06/30/2017 07/10/2017 documented as of this encounter (statuses as of 05/13/2023) [facility] History of Past illness Narrative* Problem Noted Date Diagnosed Date Resolved Date Malnutrition of moderate degree 08/20/2020 12/08/2021 Pneumonia 07/19/2017 07/19/2017 Acute respiratory failure with hypoxia 07/05/2017 07/10/2017 Aspiration pneumonitis 07/03/201707/10 Bowel obstruction 06/30/2017 07/10/2017 documented as of this encounter (statuses as of 05/13/2023) [facility] History of Past illness Narrative* Problem Noted Date Diagnosed Date Resolved Date Malnutrition of moderate degree 08/20/2020 12/08/2021 Pneumonia 07/19/2017 07/19/2017 Acute respiratory failure with hypoxia 07/05/2017 07/10/2017 Aspiration pneumonitis 07/03/201707/10 Bowel obstruction 06/30/2017 07/10/2017 documented as of this encounter (statuses as of 05/16/2023) [facility] History of Past illness Narrative* Problem Noted Date Diagnosed Date Resolved Date Malnutrition of moderate degree 08/20/2020 12/08/2021 Pneumonia 07/19/2017 07/19/2017 Acute respiratory failure with hypoxia 07/05/2017 07/10/2017 Aspiration pneumonitis 07/03/201707/10 Bowel obstruction 06/30/2017 07/10/2017 documented as of this encounter (statuses as of 05/20/2023) [facility] History of Past illness Narrative* Problem Noted Date Diagnosed Date Resolved Date Malnutrition of moderate degree 08/20/2020 12/08/2021 Pneumonia 07/19/2017 07/19/2017 Acute respiratory failure with hypoxia 07/05/2017 07/10/2017 Aspiration pneumonitis 07/03/201707/10 Bowel obstruction 06/30/2017 07/10/2017 documented as of this encounter (statuses as of 05/30/2023) [facility] History of Past illness Narrative* Problem Noted Date Diagnosed Date Resolved Date Malnutrition of moderate degree 08/20/2020 12/08/2021 Pneumonia 07/19/2017 07/19/2017 Acute respiratory failure with hypoxia 07/05/2017 07/10/2017 Aspiration pneumonitis 07/03/201707/10 Bowel obstruction 06/30/2017 07/10/2017 documented as of this encounter (statuses as of 06/03/2023) [facility] History of Past illness Narrative* Problem Noted Date Diagnosed Date Resolved Date Malnutrition of moderate degree 08/20/2020 12/08/2021 Pneumonia 07/19/2017 07/19/2017 Acute respiratory failure with hypoxia 07/05/2017 07/10/2017 Aspiration pneumonitis 07/03/201707/10 Bowel obstruction 06/30/2017 07/10/2017 documented as of this encounter (statuses as of 06/05/2023) [facility] History of Past illness Narrative* Problem Noted Date Diagnosed Date Resolved Date Malnutrition of moderate degree 08/20/2020 12/08/2021 Pneumonia 07/19/2017 07/19/2017 Acute respiratory failure with hypoxia 07/05/2017 07/10/2017 Aspiration pneumonitis 07/03/201707/10 Bowel obstruction 06/30/2017 07/10/2017 documented as of this encounter (statuses as of 06/09/2023) [facility] History of Past illness Narrative* Problem Noted Date Diagnosed Date Resolved Date Malnutrition of moderate degree 08/20/2020 12/08/2021 Pneumonia 07/19/2017 07/19/2017 Acute respiratory failure with hypoxia 07/05/2017 07/10/2017 Aspiration pneumonitis 07/03/201707/10 Bowel obstruction 06/30/2017 07/10/2017 documented as of this encounter (statuses as of 06/27/2023) [facility] History of Past illness Narrative* Problem Noted Date Diagnosed Date Resolved Date Malnutrition of moderate degree 08/20/2020 12/08/2021 Pneumonia 07/19/2017 07/19/2017 Acute respiratory failure with hypoxia 07/05/2017 07/10/2017 Aspiration pneumonitis 07/03/201707/10 Bowel obstruction 06/30/2017 07/10/2017 documented as of this encounter (statuses as of 06/30/2023) [facility] History of Past illness Narrative* Problem Noted Date Diagnosed Date Resolved Date Malnutrition of moderate degree 08/20/2020 12/08/2021 Pneumonia 07/19/2017 07/19/2017 Acute respiratory failure with hypoxia 07/05/2017 07/10/2017 Aspiration pneumonitis 07/03/201707/10 Bowel obstruction 06/30/2017 07/10/2017 documented as of this encounter (statuses as of 07/01/2023) [facility] History of Past illness Narrative* Problem Noted Date Diagnosed Date Resolved Date Malnutrition of moderate degree 08/20/2020 12/08/2021 Pneumonia 07/19/2017 07/19/2017 Acute respiratory failure with hypoxia 07/05/2017 07/10/2017 Aspiration pneumonitis 07/03/201707/10 Bowel obstruction 06/30/2017 07/10/2017 documented as of this encounter (statuses as of 07/09/2023) [facility] History of Past illness Narrative* Problem Noted Date Diagnosed Date Resolved Date Malnutrition of moderate degree 08/20/2020 12/08/2021 Pneumonia 07/19/2017 07/19/2017 Acute respiratory failure with hypoxia 07/05/2017 07/10/2017 Aspiration pneumonitis 07/03/201707/10 Bowel obstruction 06/30/2017 07/10/2017 documented as of this encounter (statuses as of 07/15/2023) [facility] History of Past illness Narrative* Problem Noted Date Diagnosed Date Resolved Date Malnutrition of moderate degree 08/20/2020 12/08/2021 Pneumonia 07/19/2017 07/19/2017 Acute respiratory failure with hypoxia 07/05/2017 07/10/2017 Aspiration pneumonitis 07/03/201707/10 Bowel obstruction 06/30/2017 07/10/2017 documented as of this encounter (statuses as of 07/16/2023) [facility] History of Past illness Narrative* Problem Noted Date Diagnosed Date Resolved Date Malnutrition of moderate degree 08/20/2020 12/08/2021 Pneumonia 07/19/2017 07/19/2017 Acute respiratory failure with hypoxia 07/05/2017 07/10/2017 Aspiration pneumonitis 07/03/201707/10 Bowel obstruction 06/30/2017 07/10/2017 documented as of this encounter (statuses as of 07/19/2023) [facility] History of Past illness Narrative* Problem Noted Date Diagnosed Date Resolved Date Malnutrition of moderate degree 08/20/2020 12/08/2021 Pneumonia 07/19/2017 07/19/2017 Acute respiratory failure with hypoxia 07/05/2017 07/10/2017 Aspiration pneumonitis 07/03/201707/10 Bowel obstruction 06/30/2017 07/10/2017 documented as of this encounter (statuses as of 07/20/2023) [facility] History of Past illness Narrative* Problem Noted Date Diagnosed Date Resolved Date Malnutrition of moderate degree 08/20/2020 12/08/2021 Pneumonia 07/19/2017 07/19/2017 Acute respiratory failure with hypoxia 07/05/2017 07/10/2017 Aspiration pneumonitis 07/03/201707/10 Bowel obstruction 06/30/2017 07/10/2017 documented as of this encounter (statuses as of 07/20/2023) [facility] History of Past illness Narrative* Problem Noted Date Diagnosed Date Resolved Date Malnutrition of moderate degree 08/20/2020 12/08/2021 Pneumonia 07/19/2017 07/19/2017 Acute respiratory failure with hypoxia 07/05/2017 07/10/2017 Aspiration pneumonitis 07/03/201707/10 Bowel obstruction 06/30/2017 07/10/2017 documented as of this encounter (statuses as of 07/20/2023) [facility] History of Past illness Narrative* Problem Noted Date Diagnosed Date Resolved Date Malnutrition of moderate degree 08/20/2020 12/08/2021 Pneumonia 07/19/2017 07/19/2017 Acute respiratory failure with hypoxia 07/05/2017 07/10/2017 Aspiration pneumonitis 07/03/201707/10 Bowel obstruction 06/30/2017 07/10/2017 documented as of this encounter (statuses as of 07/20/2023) [facility] History of Past illness Narrative* Problem Noted Date Diagnosed Date Resolved Date Malnutrition of moderate degree 08/20/2020 12/08/2021 Pneumonia 07/19/2017 07/19/2017 Acute respiratory failure with hypoxia 07/05/2017 07/10/2017 Aspiration pneumonitis 07/03/201707/10 Bowel obstruction 06/30/2017 07/10/2017 documented as of this encounter (statuses as of 07/20/2023) [facility] History of Past illness Narrative* Problem Noted Date Diagnosed Date Resolved Date Malnutrition of moderate degree 08/20/2020 12/08/2021 Pneumonia 07/19/2017 07/19/2017 Acute respiratory failure with hypoxia 07/05/2017 07/10/2017 Aspiration pneumonitis 07/03/201707/10 Bowel obstruction 06/30/2017 07/10/2017 documented as of this encounter (statuses as of 07/20/2023) [facility] [facility] Problem Noted Date Diagnosed Date Resolved Date Malnutrition of moderate degree 08/20/2020 12/08/2021 Pneumonia 07/19/2017 07/19/2017 Acute respiratory failure with hypoxia 07/05/2017 07/10/2017 Aspiration pneumonitis 07/03/201707/10 Bowel obstruction 06/30/2017 07/10/2017 documented as of this encounter (statuses as of 07/20/2023) [facility] History of Past illness Narrative* Problem Noted Date Diagnosed Date Resolved Date Malnutrition of moderate degree 08/20/2020 12/08/2021 Pneumonia 07/19/2017 07/19/2017 Acute respiratory failure with hypoxia 07/05/2017 07/10/2017 Aspiration pneumonitis 07/03/201707/10 Bowel obstruction 06/30/2017 07/10/2017 documented as of this encounter (statuses as of 07/20/2023) [facility] History of Past illness Narrative* Problem Noted Date Diagnosed Date Resolved Date Malnutrition of moderate degree 08/20/2020 12/08/2021 Pneumonia 07/19/2017 07/19/2017 Acute respiratory failure with hypoxia 07/05/2017 07/10/2017 Aspiration pneumonitis 07/03/201707/10 Bowel obstruction 06/30/2017 07/10/2017 documented as of this encounter (statuses as of 07/20/2023) [facility] History of Past illness Narrative* Problem Noted Date Diagnosed Date Resolved Date Malnutrition of moderate degree 08/20/2020 12/08/2021 Pneumonia 07/19/2017 07/19/2017 Acute respiratory failure with hypoxia 07/05/2017 07/10/2017 Aspiration pneumonitis 07/03/201707/10 Bowel obstruction 06/30/2017 07/10/2017 documented as of this encounter (statuses as of 07/25/2023) [facility] History of Past illness Narrative* Problem Noted Date Diagnosed Date Resolved Date Malnutrition of moderate degree 08/20/2020 12/08/2021 Pneumonia 07/19/2017 07/19/2017 Acute respiratory failure with hypoxia 07/05/2017 07/10/2017 Aspiration pneumonitis 07/03/201707/10 Bowel obstruction 06/30/2017 07/10/2017 documented as of this encounter (statuses as of 08/01/2023) [facility] History of Past illness Narrative* Problem Noted Date Diagnosed Date Resolved Date Malnutrition of moderate degree 08/20/2020 12/08/2021 Pneumonia 07/19/2017 07/19/2017 Acute respiratory failure with hypoxia 07/05/2017 07/10/2017 Aspiration pneumonitis 07/03/201707/10 Bowel obstruction 06/30/2017 07/10/2017 documented as of this encounter (statuses as of 08/26/2023) [facility] History of Past illness Narrative* Problem Noted Date Diagnosed Date Resolved Date Malnutrition of moderate degree 08/20/2020 12/08/2021 Pneumonia 07/19/2017 07/19/2017 Acute respiratory failure with hypoxia 07/05/2017 07/10/2017 Aspiration pneumonitis 07/03/201707/10 Bowel obstruction 06/30/2017 07/10/2017 documented as of this encounter (statuses as of 10/27/2023) [facility] History of Past illness Narrative* Problem Noted Date Diagnosed Date Resolved Date Malnutrition of moderate degree 08/20/2020 12/08/2021 Pneumonia 07/19/2017 07/19/2017 Acute respiratory failure with hypoxia 07/05/2017 07/10/2017 Aspiration pneumonitis 07/03/201707/10 Bowel obstruction 06/30/2017 07/10/2017 documented as of this encounter (statuses as of 10/28/2023) [facility] History of Past illness Narrative* Problem Noted Date Diagnosed Date Resolved Date Malnutrition of moderate degree 08/20/2020 12/08/2021 Pneumonia 07/19/2017 07/19/2017 Acute respiratory failure with hypoxia 07/05/2017 07/10/2017 Aspiration pneumonitis 07/03/201707/10 Bowel obstruction 06/30/2017 07/10/2017 documented as of this encounter (statuses as of 10/30/2023) [facility] History of Past illness Narrative* Problem Noted Date Diagnosed Date Resolved Date Malnutrition of moderate degree 08/20/2020 12/08/2021 Pneumonia 07/19/2017 07/19/2017 Acute respiratory failure with hypoxia 07/05/2017 07/10/2017 Aspiration pneumonitis 07/03/201707/10 Bowel obstruction 06/30/2017 07/10/2017 documented as of this encounter (statuses as of 10/30/2023) [facility] History of Past illness Narrative* Problem Noted Date Diagnosed Date Resolved Date Malnutrition of moderate degree 08/20/2020 12/08/2021 Pneumonia 07/19/2017 07/19/2017 Acute respiratory failure with hypoxia 07/05/2017 07/10/2017 Aspiration pneumonitis 07/03/201707/10 Bowel obstruction 06/30/2017 07/10/2017 documented as of this encounter (statuses as of 10/31/2023) [facility] History of Past illness Narrative* Problem Noted Date Diagnosed Date Resolved Date Malnutrition of moderate degree 08/20/2020 12/08/2021 Pneumonia 07/19/2017 07/19/2017 Acute respiratory failure with hypoxia 07/05/2017 07/10/2017 Aspiration pneumonitis 07/03/201707/10 Bowel obstruction 06/30/2017 07/10/2017 documented as of this encounter (statuses as of 10/31/2023) [facility] History of Past illness Narrative* Problem Noted Date Diagnosed Date Resolved Date Malnutrition of moderate degree 08/20/2020 12/08/2021 Pneumonia 07/19/2017 07/19/2017 Acute respiratory failure with hypoxia 07/05/2017 07/10/2017 Aspiration pneumonitis 07/03/201707/10 Bowel obstruction 06/30/2017 07/10/2017 documented as of this encounter (statuses as of 11/08/2023) [facility] Fall risk [id number] assessmentWEthosGen [employer] Work Phone: 1(882) 384-264111-04-2017 History of Past illness Narrative* Problem Noted Date Resolved Date Pneumonia 07/19/2017 07/19/2017 Acute respiratory failure with hypoxia 7 07/10/2017 Aspiration pneumonitis 07/03/2017 7 Bowel obstruction 06/30/2017 07/10/2017 documented as of this encounter (statuses as of 12/05/2021) [facility] Fall risk [id number]/16[facility] risk assessmentWFuturaMedia Work Phone: Evaluation note* Diagnosis Situational depression- Primary Adjustment disorder with depressed mood Malnutrition of moderate degree (HCC) Malnutrition of moderate degree [facility] Diagnosis Malignant neoplasm of sigmoid colon (HCC)- Primary Malignant neoplasm of sigmoid colon [facility] Diagnosis Preop examination- Primary Preoperative examination, unspecified DDD (degenerative disc disease), lumbar Degeneration of lumbar or lumbosacral intervertebral disc Coronary artery disease involving [place] coronary artery of [place] heart without angina pectoris Paroxysmal atrial fibrillation (HCC) Atrial fibrillation Elevated hemoglobin A1c Other abnormal blood chemistry Hyperlipidemia, mixed Mixed hyperlipidemia [facility] Diagnosis Malignant neoplasm of sigmoid colon (HCC)- Primary Malignant neoplasm of sigmoid colon [facility]* Diagnosis Rectal cancer (HCC) Malignant neoplasm of rectum [facility] Diagnosis Rectal cancer (HCC) Malignant neoplasm of rectum [facility] Diagnosis Malignant neoplasm of sigmoid colon (HCC)- Primary Malignant neoplasm of sigmoid colon [facility] Diagnosis Rectal cancer (HCC)- Primary Malignant neoplasm of rectum [facility] Diagnosis History of colon cancer- Primary Personal history of malignant neoplasm of large intestine Ventral hernia without obstruction or gangrene Ventral hernia, unspecified, without mention of obstruction or gangrene 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) Ileostomy status Generalized weakness Other malaise and fatigue Falls frequently [facility] history of [facility] Falls frequently- Primary [facility] history of [facility] Diagnosis Bilateral carotid artery stenosis Occlusion and stenosis of carotid artery without mention of cerebral infarction Positional lightheadedness Dizziness and giddiness [facility] Diagnosis Falls frequently- Primary Personal history of fall [facility] Diagnosis Falls frequently- Primary Personal history of fall [facility] Diagnosis Essential hypertension- Primary Unspecified essential hypertension Bilateral carotid artery stenosis Occlusion and stenosis of carotid artery without mention of cerebral infarction Chronic midline low back pain with right-sided sciatica Falls frequently Personal history of fall Generalized weakness Other malaise and fatigue [facility] Diagnosis Malignant neoplasm of sigmoid colon (HCC)- Primary Malignant neoplasm of sigmoid colon [facility] Diagnosis Fever, unspecified fever cause- Primary [facility] Diagnosis Malignant neoplasm of prostate (HCC)- Primary Malignant neoplasm of prostate [facility] Diagnosis Skin abrasion- Primary Abrasion or friction burn of other, multiple, and unspecified sites, without mention of infection Dysuria Acute cystitis with hematuria Acute cystitis Arthritis of right hip Arthritis, lumbar spine Lumbosacral spondylosis without myelopathy [facility] Diagnosis Right leg pain- Primary Pain in limb Lumbar pain Lumbago Spinal stenosis, lumbar region with neurogenic claudication Frequent nocturnal awakening Other sleep disturbances Sleep apnea-like behavior Insomnia, unspecified type Cognitive impairment Unspecified persistent mental disorders due to conditions classified elsewhere [facility] Diagnosis Malignant neoplasm of sigmoid colon (HCC) Malignant neoplasm of sigmoid colon [facility] Diagnosis Ventral hernia without obstruction [...] abnormal blood chemistry Coronary artery disease involving [place] coronary artery of [place] heart without angina pectoris Paroxysmal atrial fibrillation [...] initial encounter- Primary [facility] Diagnosis Spinal stenosis of lumbar region, unspecified whether neurogenic claudication present- Primary [facility] Diagnosis Rectal cancer (HCC) Malignant neoplasm of rectum Elevated CEA Elevated carcinoembryonic antigen [CEA] Abnormal CT scan Other nonspecific (abnormal) findings on radiological and other examinations of body structure [facility] Diagnosis Malignant neoplasm of sigmoid colon (HCC)- Primary Malignant neoplasm of sigmoid colon [facility] Diagnosis 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 [facility] Diagnosis 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 [facility] Diagnosis Situational depression- Primary Adjustment disorder with depressed mood SALAS (generalized anxiety disorder) Generalized anxiety disorder Cognitive impairment, mild, so stated Mild cognitive impairment, so stated [facility] Diagnosis 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 [facility] Diagnosis Malignant neoplasm of sigmoid colon (HCC)- Primary Malignant neoplasm of sigmoid colon [facility] Diagnosis Cognitive impairment- Primary Unspecified persistent mental disorders due to conditions classified elsewhere [facility] Diagnosis Medicare annual wellness visit, subsequent- Primary Routine general medical examination at a health care facility Essential hypertension Unspecified essential hypertension Hyperlipidemia, mixed Mixed hyperlipidemia Elevated hemoglobin A1c Other abnormal blood chemistry Paroxysmal atrial fibrillation (HCC) Atrial fibrillation Coronary artery disease involving [place] coronary artery of [place] heart without angina pectoris Bilateral carotid artery [...] neoplasm of prostate [facility] Diagnosis Malignant neoplasm of rectum (HCC)- Primary Malignant neoplasm of rectum [facility] Diagnosis Malignant neoplasm of rectum (HCC)- Primary Malignant neoplasm of rectum [facility] Diagnosis Acute encephalopathy- Primary Encephalopathy, unspecified Dementia without behavioral disturbance (HCC) Dementia, unspecified, without behavioral disturbance Closed nondisplaced fracture of styloid process of left ulna, initial encounter Acute cystitis without hematuria Acute cystitis Cellulitis of skin Cellulitis and abscess of unspecified site [facility] Diagnosis Malignant neoplasm of sigmoid colon (HCC)- Primary Malignant neoplasm of sigmoid colon [facility] Diagnosis Malignant neoplasm of sigmoid colon (HCC)- Primary Malignant neoplasm of sigmoid colon [facility] Diagnosis Closed fracture of distal end of left humerus with routine healing, unspecified fracture morphology, subsequent encounter- Primary Bilateral carotid artery stenosis- Primary Occlusion and stenosis of carotid artery without mention of cerebral infarction [facility] Diagnosis Upper respiratory virus- Primary Acute upper respiratory infections of unspecified site Acute cough [facility] Diagnosis Dementia, unspecified dementia severity, unspecified dementia type, unspecified whether behavioral, psychotic, or mood disturbance or anxiety (HCC)- Primary [facility]* Diagnosis Rectal cancer (HCC) Malignant neoplasm of rectum [facility] Diagnosis Malignant neoplasm of rectum (HCC) Malignant neoplasm of rectum [facility] Diagnosis Malignant neoplasm of rectum (HCC) Malignant neoplasm of rectum [facility] Diagnosis Dementia without behavioral disturbance (HCC) Dementia, unspecified, without behavioral disturbance Spinal stenosis of lumbar region with neurogenic claudication Spinal stenosis, lumbar region, with neurogenic claudication [facility] Diagnosis Rectal cancer (HCC) Malignant neoplasm of rectum Abnormal CT of the abdomen Nonspecific (abnormal) findings on radiological and other examination of abdominal area, including retroperitoneum [facility] Diagnosis Rectal cancer (HCC) Malignant neoplasm of rectum documented in this encounter [facility] note* Diagnosis Elbow effusion, left- Primary SALAS (generalized anxiety disorder) Generalized anxiety disorder documented in this encounter [facility] note* Diagnosis Polypharmacy- Primary Encounter for long-term (current) use of other medications Dementia, unspecified dementia severity, unspecified dementia type, unspecified whether behavioral, psychotic, or mood disturbance or anxiety (HCC) Falls frequently Personal history of fall Alcohol dependence with uncomplicated intoxication (HCC) Acute alcoholic intoxication in alcoholism, unspecified Driving safety issue Other specified personal history presenting hazards to health documented in this encounter [facility] note* Diagnosis Dysuria- Primary Urinary tract infection with hematuria, site unspecified [facility] Diagnosis Pain of right hip- Primary documented in this encounter [facility] note* Diagnosis SALAS (generalized anxiety disorder) Generalized anxiety disorder documented in this encounter [facility] note* Diagnosis Dementia, unspecified dementia severity, unspecified dementia type, unspecified whether behavioral, psychotic, or mood disturbance or anxiety (HCC) Alcohol dependence with uncomplicated intoxication (HCC) Acute alcoholic intoxication in alcoholism, unspecified documented in this encounter [facility] for referral (narrative)* Outpatient Procedure (Routine) - Authorized Specialty Diagnoses / Procedures Referred By Remi Referred To Contact [facility] Diagnoses Bilateral carotid artery stenosis Procedures US CAROTID ARTERIES [facility] DUPLEX SCAN EXTRACRANIAL ART COMPL BI STUDY Kaye Oneal DO [address] [place] [address] [facility] [place] [address] [place] [address] Referral ID Status Reason Start Date Expiration Date Visits Requested Visits Authorized [id number] Authorized Auto-Generat ed Referral 03/26/2022 03/26/2023 1 1 [facility] for referral (narrative)* Diagnostic Procedure Only (Routine) - Closed Specialty Diagnoses / Procedures Referred By Remi rocha Referred To Contact MOLECULAR & FUNCTIONAL IMAGING Diagnoses Rectal cancer (HCC) Elevated CEA Abnormal CT scan Procedures NM PET/CT SKULL-THIGH INITIAL PET IMAGING CT ATTENUATION SKULL BASE MID-THIGH Tameka Marshall APRN.BARREL 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 [address] [place] [address] Molecular & Functional Imaging [address] [place] [address] Referral ID Status Reason Start Date Expiration Date V isits Requested Visits Authorized [id number] Closed Auto-Generate d Referral 11/14/2022 12/14/2023 1 1 [facility] for referral (narrative)* Diagnostic Procedure Only (Routine) - Pending Review Specialty Diagnoses / Procedures Referred By Remi rocha Referred To Contact XR IMAGING Diagnoses Pain of right hip Procedures XR HIP GENERAL 3V PELV/AP/LAT RIGHT RADEX HIP UNILATERAL WITH PELVIS 2-3 VIEWS Vishal Jones MD [address] [place] [address] Xr Imaging [facility] Referral ID Status Reason Start Date Expiration Date Visits Requested Visits Authorized [id number] Pending Review Auto-Generat ed Referral 10/28/2023 11/26/2024 1 1 [facility] for visit Narrative* Diagnostic Procedure Only (Routine) - Closed Specialty Diagnoses / Procedures Referred By Remi rocha Referred To Contact MOLECULAR & FUNCTIONAL IMAGING Diagnoses Rectal cancer (HCC) Elevated CEA Abnormal CT scan Procedures NM PET/CT SKULL-THIGH INITIAL PET IMAGING CT ATTENUATION SKULL BASE MID-THIGH Tameka Marshall APRN.BARREL PAINTER [address] [place] [address] Molecular & Functional Imaging [address] [place], [place] [id number] Referral ID Status Reason Start Date Expiration Date V isits Requested Visits Authorized [id number] Closed Auto-Generate d Referral 11/14/2022 12/14/2023 1 1 [facility] Summary Purpose Family History No Family History Records FoundNo Family History Records FoundNo Family History Records FoundNo Family History Records Found Advance Directives Documents on File Type Date Recorded Patient Specification Writer Expl anation Advance Directive(s) 07/20/2017 8:54 AM Latest Code Status on File Code Status Date Activated Date Inactivated Comments Full Code 08/18/2020 2:14 PM 08/19/2020 12:20 PM Documents on File Type Date Recorded Patient Specification Writer Expl anation Advance Directive(s) 08/19/2020 2:53 PM Advance Directive(s) 08/05/2020 3:02 AM Advance Directive(s) 08/03/2020 8:57 AM Advance Directive(s) 12/23/2019 5:57 AM Advance Directive(s) 08/06/2019 7:25 AM Advance Directive(s) 07/20/2017 8:54 AM Advance Directive(s) 07/02/2017 4:27 PM Documents on File Type Date Recorded Patient Specification Writer Expl anation Advance Directive(s) 08/19/2020 2:53 PM [...] Documents on File Type Date Recorded Patient Specification Writer Expl anation Advance Directive(s) 07/20/2017 8:54 AM [...] DIAGNOSTIC COMPUTED TOMOGRAPHY THORAX W/CONTRAST Tameka Marshall APRN.BARREL PAINTER [address] [place] [address] Ct Imaging Referral ID Status Reason Start Date Expiration Date V isits Requested Visits Authorized [id number] Closed Auto-Generate d Referral 11/14/2021 12/14/2022 1 1 Specialty Diagnoses / Procedures Referred By Contac t Referred To Contact CT IMAGING Diagnoses Rectal cancer (HCC) Procedures CT ABD/PEL W IVCON CT ABD & PELVIS W/CONTRAST Tameka Marshall APRN.BARREL PAINTER [address] [place] [address] Ct Imaging Referral ID Status Reason Start Date Expiration Date V isits Requested Visits Authorized [id number] Closed Auto-Generate d Referral 11/14/2021 12/14/2022 1 1 Referral ID Status Reason Start Date Expiration Date Visits Requested Visits Authorized [id number] Authorized Auto-Generat ed Referral 03/21/2022 04/20/2023 1 1 Referral ID Status Reason Start Date Expiration Date Visits Requested Visits Authorized [id number] Authorized Auto-Generat ed Referral 03/21/2022 04/20/2023 1 1 Specialty Diagnoses / Procedures Referred By Contac t Referred To Contact Orthopedics Diagnoses Arthritis of right hip Arthritis, lumbar spine Procedures CONSULT TO ORTHOPAEDICS OFFICE/OUTPATIENT [facility] 60-74 MINUTES Vishal Jones MD [address] [place] [address] Referral ID Status Reason Start Date Expiration Date Visits Requested Visits Authorized [id number] Authorized PCP Requested Referral 07/24/2022 07/24/2023 1 1 Specialty Diagnoses / Procedures Referred By Contac t Referred To Contact CT IMAGING Diagnoses Rectal cancer (HCC) Abnormal CT of the abdomen Procedures CT ABD/PEL W IVCON CT ABD & PELVIS W/CONTRAST Tameka Marshall APRN.BARREL PAINTER [address] [place] [address] Ct Imaging Referral ID Status Reason Start Date Expiration Date Visits Requested Visits Authorized [id number] Authorized Auto-Generat ed Referral 10/09/2022 11/08/2023 1 1 Specialty Diagnoses / Procedures Referred By Contac t Referred To Contact Neurosurgery Diagnoses Spinal stenosis of lumbar region, unspecified whether neurogenic claudication present Procedures CONSULT TO NEUROSURGERY Mikhail Liu Jr., MD [address] [address] Referral ID Status Reason Start Date Expiration Date Visits Requested Visits Authorized [id number] Ref Not Required PCP Requested Referral 11/28/2022 02/26/2023 3 3 Specialty Diagnoses / Procedures Referred By Contac t Referred To Contact Diagnoses 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) Procedures CT SIM PLANNING RADIATION ONCOLOGY THER RAD SIMULAJ-AIDED FIELD SETTING COMPLEX Clement Werner MD, [address] [place] [address] Referral ID Status Reason Start Date Expiration Date Visits Requested Visits Authorized [id number] Pending Review PCP Requested Referral 12/30/2022 03/25/2023 1 1 Specialty Diagnoses / Procedures Referred By Contac t Referred To Contact CT IMAGING Diagnoses Malignant neoplasm of rectum (HCC) Procedures CT CHEST W IVCON DIAGNOSTIC COMPUTED TOMOGRAPHY THORAX W/CONTRAST Sam Greenberg, DO [address] [place] [address] Ct Imaging Referral ID Status Reason Start Date Expiration Date Visits Requested Visits Authorized [id number] Authorized Auto-Generat ed Referral 04/01/2023 04/30/2024 1 1 Specialty Diagnoses / Procedures Referred By Contac t Referred To Contact CT IMAGING Diagnoses Malignant neoplasm of rectum (HCC) Procedures CT ABD/PEL W IVCON CT ABD & PELVIS W/CONTRAST Sam Greenberg, DO [address] [place] [address] Ct Imaging Referral ID Status Reason Start Date Expiration Date Visits Requested Visits Authorized [id number] Authorized Auto-Generat ed Referral 04/01/2023 04/30/2024 1 1 Specialty Diagnoses / Procedures Referred By Contac t Referred To Contact Neurology Diagnoses Dementia, unspecified dementia severity, unspecified dementia type, unspecified whether behavioral, psychotic, or mood disturbance or anxiety (HCC) Procedures CONSULT TO NEUROLOGY OFFICE/OUTPATIENT [facility] 60-74 MINUTES Mikhail Liu Jr., MD [address] [address] Referral ID Status Reason Start Date Expiration Date Visits Requested Visits Authorized [id number] Authorized PCP Requested Referral 06/29/2024 1 1 Specialty Diagnoses / Procedures Referred By Contac t Referred To Contact CT IMAGING Diagnoses Malignant neoplasm of rectum (HCC) Procedures CT CHEST W IVCON DIAGNOSTIC COMPUTED TOMOGRAPHY THORAX W/CONTRAST Sam Greenberg Aide, DO [address] [place] [address] Ct Imaging [facility] Referral ID Status Reason Start Date Expiration Date V isits Requested Visits Authorized [id number] Closed Auto-Generate d Referral 04/01/2023 04/30/2024 1 1 Specialty Diagnoses / Procedures Referred By Contac t Referred To Contact CT IMAGING Diagnoses Malignant neoplasm of rectum (HCC) Procedures CT ABD/PEL W IVCON CT ABD & PELVIS W/CONTRAST Sam Greenberg Aide, DO [address] [place] [address] Ct Imaging [facility] Referral ID Status Reason Start Date Expiration Date V isits Requested Visits Authorized [id number] Closed Auto-Generate d Referral 04/01/2023 04/30/2024 1 1 Referral ID Status Reason Start Date Expiration Date V isits Requested Visits Authorized [id number] Closed Auto-Generate d Referral 02/25/2023 03/26/2024 1 1 Referral ID Status Reason Start Date Expiration Date V isits Requested Visits Authorized [id number] Closed Auto-Generate d Referral 02/25/2023 03/26/2024 1 1 Specialty Diagnoses / Procedures Referred By Contac t Referred To Contact MR IMAGING Diagnoses Spinal stenosis of lumbar region with neurogenic claudication Procedures MRI LUMBAR SPINE WO IVCON MRI SPINAL CANAL LUMBAR W/O CONTRAST MATERIAL Mikhail Liu Jr., MD [address] [address] [place] [address] Referral ID Status Reason Start Date Expiration Date V isits Requested Visits Authorized [id number] Closed Auto-Generate d Referral 06/24/2022 07/24/2023 1 1 Specialty Diagnoses / Procedures Referred By Contac t Referred To Contact MR IMAGING Diagnoses Dementia without behavioral disturbance (HCC) Procedures MRI BRAIN WO IVCON MRI BRAIN BRAIN STEM W/O CONTRAST MATERIAL Mikhail Liu Jr., MD [address] [facility] [address] [place] [address] [place] [address] Referral ID Status Reason Start Date Expiration Date V isits Requested Visits Authorized [id number] Closed Auto-Generate d Referral 06/24/2022 07/24/2023 1 1 Specialty Diagnoses / Procedures Referred By Contac t Referred To Contact CT IMAGING Diagnoses Rectal cancer (HCC) Abnormal CT of the abdomen Procedures CT ABD/PEL W IVCON CT ABD & PELVIS W/CONTRAST Tameka Marshall, MANAGER PRODUCT MANAGEMENT.BARREL PAINTER [address] [place] [address] [place] [address] Referral ID Status Reason Start Date Expiration Date V isits Requested Visits Authorized [id number] Closed Auto-Generate d Referral 10/09/2022 11/08/2023 1 1 Specialty Diagnoses / Procedures Referred By Contac t Referred To Contact CT IMAGING Diagnoses Rectal cancer (HCC) Procedures CT CHEST W IVCON DIAGNOSTIC COMPUTED TOMOGRAPHY THORAX W/CONTRAST Tameka Marshall, MANAGER PRODUCT MANAGEMENT.BARREL PAINTER [address] [place] [address] [place] [address] Referral ID Status Reason Start Date Expiration Date V isits Requested Visits Authorized [id number] Closed Auto-Generate d Referral 03/21/2022 04/20/2023 1 1 Specialty Diagnoses / Procedures Referred By Contac t Referred To Contact CT IMAGING Diagnoses Rectal cancer (HCC) Procedures CT ABD/PEL W IVCON CT ABD & PELVIS W/CONTRAST Rolando, Tameka, MANAGER PRODUCT MANAGEMENT.BARREL PAINTER [address] [place] [address] [place] [address] Referral ID Status Reason Start Date Expiration Date V isits Requested Visits Authorized [id number] Closed Auto-Generate d Referral 03/21/2022 04/20/2023 1 1 Specialty Diagnoses / Procedures Referred By Contac t Referred To Contact Orthopedics Diagnoses Elbow effusion, left Procedures CONSULT TO ORTHOPAEDICS OFFICE/OUTPATIENT [facility] 60-74 MINUTES Ren Chua, MANAGER PRODUCT MANAGEMENT.BARREL PAINTER [address] [place] [address] Referral ID Status Reason Start Date Expiration Date Visits Requested Visits Authorized [id number] Authorized PCP Requested Referral 3 07/31/2024 1 1 Specialty Diagnoses / Procedures Referred By Contac t Referred To Contact MR IMAGING Diagnoses Dementia, unspecified dementia severity, unspecified dementia type, unspecified whether behavioral, psychotic, or mood disturbance or anxiety (HCC) Alcohol dependence with uncomplicated intoxication (HCC) Procedures MRI 3D POST PROCESSING 3D RENDERING W/INTERP&POSTPROC DIFF WORK STATION Chapincito Tomlin MD [address] [place] [address] Mr Imaging [place] [address] Referral ID Status Reason Start Date Expiration Date Visits Requested Visits Authorized [id number] Authorized Auto-Generat ed Referral 3 09/24/2024 1 1 Specialty Diagnoses / Procedures Referred By Contac t Referred To Contact MR IMAGING Diagnoses Dementia, unspecified dementia severity, unspecified dementia type, unspecified whether behavioral, psychotic, or mood disturbance or anxiety (HCC) Alcohol dependence with uncomplicated intoxication (HCC) Procedures MRI BRAIN W QUANT WO IVCON MRI BRAIN BRAIN STEM W/O CONTRAST MATERIAL Chapincito Tomlin MD [address] [place] [address] Mr Imaging [place] [address] Referral ID Status Reason Start Date Expiration Date Visits Requested Visits Authorized [id number] Authorized Auto-Generat ed Referral 3 09/24/2024 1 1 Additional Source Comments (unrecognized sect ion and content) No Status Records FoundNo Status Records FoundNo Status Records FoundNo Status Records Found INFORMATION SOURCE (unrecogn ized section and content) DATE CREATED AUTHOR AUTHOR'S ORGANIZ ATION 08/07/2022 [facility] DATE CREATED AUTHOR AUTHOR'S ORGANIZ ATION 10/31/2023 [facility] DATE CREATED AUTHOR AUTHOR'S ORGANIZ ATION 11/01/2023 [facility] Source Comments (unrecognize d section and content) In the event this informatio n is protected by the Federal Confidentiality of Alcohol and Drug Abuse Patient Records regulations: The Federal rules restrict any use of the information to criminally investigate or prosecute any alcohol or drug abuse patient.[facility] the event this information is protected by the Federal Confidentiality of Alcohol and Drug Abuse Patient Records regulations: The Federal rules restrict any use of the information to criminally investigate or prosecute any alcohol or drug abuse patient.[facility] the event this information is protected by the Federal Confidentiality of Alcohol and Drug Abuse Patient Records regulations: The Federal rules restrict any use of the information to criminally investigate or prosecute any alcohol or drug abuse patient.[facility] the event this information is protected by the Federal Confidentiality of Alcohol and Drug Abuse Patient Records regulations: The Federal rules restrict any use of the information to criminally investigate or prosecute any alcohol or drug abuse patient.[facility] the event this information is protected by the Federal Confidentiality of Alcohol and Drug Abuse Patient Records regulations: The Federal rules restrict any use of the information to criminally investigate or prosecute any alcohol or drug abuse patient.[facility] the event this information is protected by the Federal Confidentiality of Alcohol and Drug Abuse Patient Records regulations: The Federal rules restrict any use of the information to criminally investigate or prosecute any alcohol or drug abuse patient.[facility] the event this information is protected by the Federal Confidentiality of Alcohol and Drug Abuse Patient Records regulations: The Federal rules restrict any use of the information to criminally investigate or prosecute any alcohol or drug abuse patient.[facility] the event this information is protected by the Federal Confidentiality of Alcohol and Drug Abuse Patient Records regulations: The Federal rules restrict any use of the information to criminally investigate or prosecute any alcohol or drug abuse patient.[facility] the event this information is protected by the Federal Confidentiality of Alcohol and Drug Abuse Patient Records regulations: The Federal rules restrict any use of the information to criminally investigate or prosecute any alcohol or drug abuse patient.[facility] the event this information is protected by the Federal Confidentiality of Alcohol and Drug Abuse Patient Records regulations: The Federal rules restrict any use of the information to criminally investigate or prosecute any alcohol or drug abuse patient.[facility]In the event this information is protected by the Federal Confidentiality of Alcohol and Drug Abuse Patient Records regulations: The Federal rules restrict any use of the information to criminally investigate or prosecute any alcohol or drug abuse patient.[facility] the event this information is protected by the Federal Confidentiality of Alcohol and Drug Abuse Patient Records regulations: The Federal rules restrict any use of the information to criminally investigate or prosecute any alcohol or drug abuse patient.[facility] the event this information is protected by the Federal Confidentiality of Alcohol and Drug Abuse Patient Records regulations: The Federal rules restrict any use of the information to criminally investigate or prosecute any alcohol or drug abuse patient.[facility]In the event this information is protected by the Federal Confidentiality of Alcohol and Drug Abuse Patient Records regulations: The Federal rules restrict any use of the information to criminally investigate or prosecute any alcohol or drug abuse patient.[facility]In the event this information is protected by the Federal Confidentiality of Alcohol and Drug Abuse Patient Records regulations: The Federal rules restrict any use of the information to criminally investigate or prosecute any alcohol or drug abuse patient.[facility]In the event this information is protected by the Federal Confidentiality of Alcohol and Drug Abuse Patient Records regulations: The Federal rules restrict any use of the information to criminally investigate or prosecute any alcohol or drug abuse patient.[facility]In the event this information is protected by the Federal Confidentiality of Alcohol and Drug Abuse Patient Records regulations: The Federal rules restrict any use of the information to criminally investigate or prosecute any alcohol or drug abuse patient.[facility]In the event this information is protected by the Federal Confidentiality of Alcohol and Drug Abuse Patient Records regulations: The Federal rules restrict any use of the information to criminally investigate or prosecute any alcohol or drug abuse patient.[facility]In the event this information is protected by the Federal Confidentiality of Alcohol and Drug Abuse Patient Records regulations: The Federal rules restrict any use of the information to criminally investigate or prosecute any alcohol or drug abuse patient.[facility] HospitalIn the event this information is protected by the Federal Confidentiality of Alcohol and Drug Abuse Patient Records regulations: The Federal rules restrict any use of the information to criminally investigate or prosecute any alcohol or drug abuse patient.[facility] HospitalIn the event this information is protected by the Federal Confidentiality of Alcohol and Drug Abuse Patient Records regulations: The Federal rules restrict any use of the information to criminally investigate or prosecute any alcohol or drug abuse patient.[facility] HospitalIn the event this information is protected by the Federal Confidentiality of Alcohol and Drug Abuse Patient Records regulations: The Federal rules restrict any use of the information to criminally investigate or prosecute any alcohol or drug abuse patient.[facility] HospitalIn the event this information is protected by the Federal Confidentiality of Alcohol and Drug Abuse Patient Records regulations: The Federal rules restrict any use of the information to criminally investigate or prosecute any alcohol or drug abuse patient.[facility] HospitalIn the event this information is protected by the Federal Confidentiality of Alcohol and Drug Abuse Patient Records regulations: The Federal rules restrict any use of the information to criminally investigate or prosecute any alcohol or drug abuse patient.[facility]In the event this information is protected by the Federal Confidentiality of Alcohol and Drug Abuse Patient Records regulations: The Federal rules restrict any use of the information to criminally investigate or prosecute any alcohol or drug abuse patient.[facility] HospitalIn the event this information is protected by the Federal Confidentiality of Alcohol and Drug Abuse Patient Records regulations: The Federal rules restrict any use of the information to criminally investigate or prosecute any alcohol or drug abuse patient.[facility] HospitalIn the event this information is protected by the Federal Confidentiality of Alcohol and Drug Abuse Patient Records regulations: The Federal rules restrict any use of the information to criminally investigate or prosecute any alcohol or drug abuse patient.[facility] HospitalIn the event this information is protected by the Federal Confidentiality of Alcohol and Drug Abuse Patient Records regulations: The Federal rules restrict any use of the information to criminally investigate or prosecute any alcohol or drug abuse patient.[facility] HospitalIn the event this information is protected by the Federal Confidentiality of Alcohol and Drug Abuse Patient Records regulations: The Federal rules restrict any use of the information to criminally investigate or prosecute any alcohol or drug abuse patient.[facility]In the event this information is protected by the Federal Confidentiality of Alcohol and Drug Abuse Patient Records regulations: The Federal rules restrict any use of the information to criminally investigate or prosecute any alcohol or drug abuse patient.[facility]In the event this information is protected by the Federal Confidentiality of Alcohol and Drug Abuse Patient Records regulations: The Federal rules restrict any use of the information to criminally investigate or prosecute any alcohol or drug abuse patient.[facility] HospitalIn the event this information is protected by the Federal Confidentiality of Alcohol and Drug Abuse Patient Records regulations: The Federal rules restrict any use of the information to criminally investigate or prosecute any alcohol or drug abuse patient.[facility]In the event this information is protected by the Federal Confidentiality of Alcohol and Drug Abuse Patient Records regulations: The Federal rules restrict any use of the information to criminally investigate or prosecute any alcohol or drug abuse patient.[facility] HospitalIn the event this information is protected by the Federal Confidentiality of Alcohol and Drug Abuse Patient Records regulations: The Federal rules restrict any use of the information to criminally investigate or prosecute any alcohol or drug abuse patient.[facility]In the event this information is protected by the Federal Confidentiality of Alcohol and Drug Abuse Patient Records regulations: The Federal rules restrict any use of the information to criminally investigate or prosecute any alcohol or drug abuse patient.[facility]In the event this information is protected by the Federal Confidentiality of Alcohol and Drug Abuse Patient Records regulations: The Federal rules restrict any use of the information to criminally investigate or prosecute any alcohol or drug abuse patient.[facility]In the event this information is protected by the Federal Confidentiality of Alcohol and Drug Abuse Patient Records regulations: The Federal rules restrict any use of the information to criminally investigate or prosecute any alcohol or drug abuse patient.[facility] HospitalIn the event this information is protected by the Federal Confidentiality of Alcohol and Drug Abuse Patient Records regulations: The Federal rules restrict any use of the information to criminally investigate or prosecute any alcohol or drug abuse patient.[facility]In the event this information is protected by the Federal Confidentiality of Alcohol and Drug Abuse Patient Records regulations: The Federal rules restrict any use of the information to criminally investigate or prosecute any alcohol or drug abuse patient.[facility]In the event this information is protected by the Federal Confidentiality of Alcohol and Drug Abuse Patient Records regulations: The Federal rules restrict any use of the information to criminally investigate or prosecute any alcohol or drug abuse patient.[facility]In the event this information is protected by the Federal Confidentiality of Alcohol and Drug Abuse Patient Records regulations: The Federal rules restrict any use of the information to criminally investigate or prosecute any alcohol or drug abuse patient.[facility] HospitalIn the event this information is protected by the Federal Confidentiality of Alcohol and Drug Abuse Patient Records regulations: The Federal rules restrict any use of the information to criminally investigate or prosecute any alcohol or drug abuse patient.[facility] HospitalIn the event this information is protected by the Federal Confidentiality of Alcohol and Drug Abuse Patient Records regulations: The Federal rules restrict any use of the information to criminally investigate or prosecute any alcohol or drug abuse patient.[facility] HospitalIn the event this information is protected by the Federal Confidentiality of Alcohol and Drug Abuse Patient Records regulations: The Federal rules restrict any use of the information to criminally investigate or prosecute any alcohol or drug abuse patient.[facility] HospitalIn the event this information is protected by the Federal Confidentiality of Alcohol and Drug Abuse Patient Records regulations: The Federal rules restrict any use of the information to criminally investigate or prosecute any alcohol or drug abuse patient.[facility] HospitalIn the event this information is protected by the Federal Confidentiality of Alcohol and Drug Abuse Patient Records regulations: The Federal rules restrict any use of the information to criminally investigate or prosecute any alcohol or drug abuse patient.[facility] HospitalIn the event this information is protected by the Federal Confidentiality of Alcohol and Drug Abuse Patient Records regulations: The Federal rules restrict any use of the information to criminally investigate or prosecute any alcohol or drug abuse patient.[facility] HospitalIn the event this information is protected by the Federal Confidentiality of Alcohol and Drug Abuse Patient Records regulations: The Federal rules restrict any use of the information to criminally investigate or prosecute any alcohol or drug abuse patient.[facility] HospitalIn the event this information is protected by the Federal Confidentiality of Alcohol and Drug Abuse Patient Records regulations: The Federal rules restrict any use of the information to criminally investigate or prosecute any alcohol or drug abuse patient.[facility] HospitalIn the event this information is protected by the Federal Confidentiality of Alcohol and Drug Abuse Patient Records regulations: The Federal rules restrict any use of the information to criminally investigate or prosecute any alcohol or drug abuse patient.[facility] HospitalIn the event this information is protected by the Federal Confidentiality of Alcohol and Drug Abuse Patient Records regulations: The Federal rules restrict any use of the information to criminally investigate or prosecute any alcohol or drug abuse patient.[facility] HospitalIn the event this information is protected by the Federal Confidentiality of Alcohol and Drug Abuse Patient Records regulations: The Federal rules restrict any use of the information to criminally investigate or prosecute any alcohol or drug abuse patient.[facility] HospitalIn the event this information is protected by the Federal Confidentiality of Alcohol and Drug Abuse Patient Records regulations: The Federal rules restrict any use of the information to criminally investigate or prosecute any alcohol or drug abuse patient.[facility] HospitalIn the event this information is protected by the Federal Confidentiality of Alcohol and Drug Abuse Patient Records regulations: The Federal rules restrict any use of the information to criminally investigate or prosecute any alcohol or drug abuse patient.[facility] HospitalIn the event this information is protected by the Federal Confidentiality of Alcohol and Drug Abuse Patient Records regulations: The Federal rules restrict any use of the information to criminally investigate or prosecute any alcohol or drug abuse patient.[facility] HospitalIn the event this information is protected by the Federal Confidentiality of Alcohol and Drug Abuse Patient Records regulations: The Federal rules restrict any use of the information to criminally investigate or prosecute any alcohol or drug abuse patient.[facility] HospitalIn the event this information is protected by the Federal Confidentiality of Alcohol and Drug Abuse Patient Records regulations: The Federal rules restrict any use of the information to criminally investigate or prosecute any alcohol or drug abuse patient.[facility] HospitalIn the event this information is protected by the Federal Confidentiality of Alcohol and Drug Abuse Patient Records regulations: The Federal rules restrict any use of the information to criminally investigate or prosecute any alcohol or drug abuse patient.[facility] HospitalIn the event this information is protected by the Federal Confidentiality of Alcohol and Drug Abuse Patient Records regulations: The Federal rules restrict any use of the information to criminally investigate or prosecute any alcohol or drug abuse patient.[facility] HospitalIn the event this information is protected by the Federal Confidentiality of Alcohol and Drug Abuse Patient Records regulations: The Federal rules restrict any use of the information to criminally investigate or prosecute any alcohol or drug abuse patient.[facility] HospitalIn the event this information is protected by the Federal Confidentiality of Alcohol and Drug Abuse Patient Records regulations: The Federal rules restrict any use of the information to criminally investigate or prosecute any alcohol or drug abuse patient.[facility] HospitalIn the event this information is protected by the Federal Confidentiality of Alcohol and Drug Abuse Patient Records regulations: The Federal rules restrict any use of the information to criminally investigate or prosecute any alcohol or drug abuse patient.[facility] HospitalIn the event this information is protected by the Federal Confidentiality of Alcohol and Drug Abuse Patient Records regulations: The Federal rules restrict any use of the information to criminally investigate or prosecute any alcohol or drug abuse patient.[facility] HospitalIn the event this information is protected by the Federal Confidentiality of Alcohol and Drug Abuse Patient Records regulations: The Federal rules restrict any use of the information to criminally investigate or prosecute any alcohol or drug abuse patient.[facility] HospitalIn the event this information is protected by the Federal Confidentiality of Alcohol and Drug Abuse Patient Records regulations: The Federal rules restrict any use of the information to criminally investigate or prosecute any alcohol or drug abuse patient.[facility] HospitalIn the event this information is protected by the Federal Confidentiality of Alcohol and Drug Abuse Patient Records regulations: The Federal rules restrict any use of the information to criminally investigate or prosecute any alcohol or drug abuse patient.[facility] HospitalIn the event this information is protected by the Federal Confidentiality of Alcohol and Drug Abuse Patient Records regulations: The Federal rules restrict any use of the information to criminally investigate or prosecute any alcohol or drug abuse patient.[facility] HospitalIn the event this information is protected by the Federal Confidentiality of Alcohol and Drug Abuse Patient Records regulations: The Federal rules restrict any use of the information to criminally investigate or prosecute any alcohol or drug abuse patient.[facility] HospitalIn the event this information is protected by the Federal Confidentiality of Alcohol and Drug Abuse Patient Records regulations: The Federal rules restrict any use of the information to criminally investigate or prosecute any alcohol or drug abuse patient.[facility] HospitalIn the event this information is protected by the Federal Confidentiality of Alcohol and Drug Abuse Patient Records regulations: The Federal rules restrict any use of the information to criminally investigate or prosecute any alcohol or drug abuse patient.[facility] HospitalIn the event this information is protected by the Federal Confidentiality of Alcohol and Drug Abuse Patient Records regulations: The Federal rules restrict any use of the information to criminally investigate or prosecute any alcohol or drug abuse patient.[facility] HospitalIn the event this information is protected by the Federal Confidentiality of Alcohol and Drug Abuse Patient Records regulations: The Federal rules restrict any use of the information to criminally investigate or prosecute any alcohol or drug abuse patient.[facility] HospitalIn the event this information is protected by the Federal Confidentiality of Alcohol and Drug Abuse Patient Records regulations: The Federal rules restrict any use of the information to criminally investigate or prosecute any alcohol or drug abuse patient.[facility] HospitalIn the event this information is protected by the Federal Confidentiality of Alcohol and Drug Abuse Patient Records regulations: The Federal rules restrict any use of the information to criminally investigate or prosecute any alcohol or drug abuse patient.[facility] HospitalIn the event this information is protected by the Federal Confidentiality of Alcohol and Drug Abuse Patient Records regulations: The Federal rules restrict any use of the information to criminally investigate or prosecute any alcohol or drug abuse patient.[facility] HospitalIn the event this information is protected by the Federal Confidentiality of Alcohol and Drug Abuse Patient Records regulations: The Federal rules restrict any use of the information to criminally investigate or prosecute any alcohol or drug abuse patient.[facility] HospitalIn the event this information is protected by the Federal Confidentiality of Alcohol and Drug Abuse Patient Records regulations: The Federal rules restrict any use of the information to criminally investigate or prosecute any alcohol or drug abuse patient.[facility] HospitalIn the event this information is protected by the Federal Confidentiality of Alcohol and Drug Abuse Patient Records regulations: The Federal rules restrict any use of the information to criminally investigate or prosecute any alcohol or drug abuse patient.[facility] HospitalIn the event this information is protected by the Federal Confidentiality of Alcohol and Drug Abuse Patient Records regulations: The Federal rules restrict any use of the information to criminally investigate or prosecute any alcohol or drug abuse patient.[facility] HospitalIn the event this information is protected by the Federal Confidentiality of Alcohol and Drug Abuse Patient Records regulations: The Federal rules restrict any use of the information to criminally investigate or prosecute any alcohol or drug abuse patient.[facility] HospitalIn the event this information is protected by the Federal Confidentiality of Alcohol and Drug Abuse Patient Records regulations: The Federal rules restrict any use of the information to criminally investigate or prosecute any alcohol or drug abuse patient.[facility] HospitalIn the event this information is protected by the Federal Confidentiality of Alcohol and Drug Abuse Patient Records regulations: The Federal rules restrict any use of the information to criminally investigate or prosecute any alcohol or drug abuse patient.[facility] HospitalIn the event this information is protected by the Federal Confidentiality of Alcohol and Drug Abuse Patient Records regulations: The Federal rules restrict any use of the information to criminally investigate or prosecute any alcohol or drug abuse patient.[facility] HospitalIn the event this information is protected by the Federal Confidentiality of Alcohol and Drug Abuse Patient Records regulations: The Federal rules restrict any use of the information to criminally investigate or prosecute any alcohol or drug abuse patient.[facility] HospitalIn the event this information is protected by the Federal Confidentiality of Alcohol and Drug Abuse Patient Records regulations: The Federal rules restrict any use of the information to criminally investigate or prosecute any alcohol or drug abuse patient.[facility] HospitalIn the event this information is protected by the Federal Confidentiality of Alcohol and Drug Abuse Patient Records regulations: The Federal rules restrict any use of the information to criminally investigate or prosecute any alcohol or drug abuse patient.[facility] HospitalIn the event this information is protected by the Federal Confidentiality of Alcohol and Drug Abuse Patient Records regulations: The Federal rules restrict any use of the information to criminally investigate or prosecute any alcohol or drug abuse patient.[facility] HospitalIn the event this information is protected by the Federal Confidentiality of Alcohol and Drug Abuse Patient Records regulations: The Federal rules restrict any use of the information to criminally investigate or prosecute any alcohol or drug abuse patient.[facility] HospitalIn the event this information is protected by the Federal Confidentiality of Alcohol and Drug Abuse Patient Records regulations: The Federal rules restrict any use of the information to criminally investigate or prosecute any alcohol or drug abuse patient.[facility] HospitalIn the event this information is protected by the Federal Confidentiality of Alcohol and Drug Abuse Patient Records regulations: The Federal rules restrict any use of the information to criminally investigate or prosecute any alcohol or drug abuse patient.[facility] HospitalIn the event this information is protected by the Federal Confidentiality of Alcohol and Drug Abuse Patient Records regulations: The Federal rules restrict any use of the information to criminally investigate or prosecute any alcohol or drug abuse patient.[facility] HospitalIn the event this information is protected by the Federal Confidentiality of Alcohol and Drug Abuse Patient Records regulations: The Federal rules restrict any use of the information to criminally investigate or prosecute any alcohol or drug abuse patient.[facility] HospitalIn the event this information is protected by the Federal Confidentiality of Alcohol and Drug Abuse Patient Records regulations: The Federal rules restrict any use of the information to criminally investigate or prosecute any alcohol or drug abuse patient.[facility] HospitalIn the event this information is protected by the Federal Confidentiality of Alcohol and Drug Abuse Patient Records regulations: The Federal rules restrict any use of the information to criminally investigate or prosecute any alcohol or drug abuse patient.[facility] HospitalIn the event this information is protected by the Federal Confidentiality of Alcohol and Drug Abuse Patient Records regulations: The Federal rules restrict any use of the information to criminally investigate or prosecute any alcohol or drug abuse patient.[facility] HospitalIn the event this information is protected by the Federal Confidentiality of Alcohol and Drug Abuse Patient Records regulations: The Federal rules restrict any use of the information to criminally investigate or prosecute any alcohol or drug abuse patient.[facility] HospitalIn the event this information is protected by the Federal Confidentiality of Alcohol and Drug Abuse Patient Records regulations: The Federal rules restrict any use of the information to criminally investigate or prosecute any alcohol or drug abuse patient.[facility] HospitalIn the event this information is protected by the Federal Confidentiality of Alcohol and Drug Abuse Patient Records regulations: The Federal rules restrict any use of the information to criminally investigate or prosecute any alcohol or drug abuse patient.[facility] HospitalIn the event this information is protected by the Federal Confidentiality of Alcohol and Drug Abuse Patient Records regulations: The Federal rules restrict any use of the information to criminally investigate or prosecute any alcohol or drug abuse patient.[facility] HospitalIn the event this information is protected by the Federal Confidentiality of Alcohol and Drug Abuse Patient Records regulations: The Federal rules restrict any use of the information to criminally investigate or prosecute any alcohol or drug abuse patient.[facility] HospitalIn the event this information is protected by the Federal Confidentiality of Alcohol and Drug Abuse Patient Records regulations: The Federal rules restrict any use of the information to criminally investigate or prosecute any alcohol or drug abuse patient.[facility] HospitalIn the event this information is protected by the Federal Confidentiality of Alcohol and Drug Abuse Patient Records regulations: The Federal rules restrict any use of the information to criminally investigate or prosecute any alcohol or drug abuse patient.[facility] HospitalIn the event this information is protected by the Federal Confidentiality of Alcohol and Drug Abuse Patient Records regulations: The Federal rules restrict any use of the information to criminally investigate or prosecute any alcohol or drug abuse patient.[facility] HospitalIn the event this information is protected by the Federal Confidentiality of Alcohol and Drug Abuse Patient Records regulations: The Federal rules restrict any use of the information to criminally investigate or prosecute any alcohol or drug abuse patient.[facility] HospitalIn the event this information is protected by the Federal Confidentiality of Alcohol and Drug Abuse Patient Records regulations: The Federal rules restrict any use of the information to criminally investigate or prosecute any alcohol or drug abuse patient.[facility] HospitalIn the event this information is protected by the Federal Confidentiality of Alcohol and Drug Abuse Patient Records regulations: The Federal rules restrict any use of the information to criminally investigate or prosecute any alcohol or drug abuse patient.[facility] HospitalIn the event this information is protected by the Federal Confidentiality of Alcohol and Drug Abuse Patient Records regulations: The Federal rules restrict any use of the information to criminally investigate or prosecute any alcohol or drug abuse patient.[facility] HospitalIn the event this information is protected by the Federal Confidentiality of Alcohol and Drug Abuse Patient Records regulations: The Federal rules restrict any use of the information to criminally investigate or prosecute any alcohol or drug abuse patient.[facility] HospitalIn the event this information is protected by the Federal Confidentiality of Alcohol and Drug Abuse Patient Records regulations: The Federal rules restrict any use of the information to criminally investigate or prosecute any alcohol or drug abuse patient.[facility] HospitalIn the event this information is protected by the Federal Confidentiality of Alcohol and Drug Abuse Patient Records regulations: The Federal rules restrict any use of the information to criminally investigate or prosecute any alcohol or drug abuse patient.[facility] HospitalIn the event this information is protected by the Federal Confidentiality of Alcohol and Drug Abuse Patient Records regulations: The Federal rules restrict any use of the information to criminally investigate or prosecute any alcohol or drug abuse patient.[facility] HospitalIn the event this information is protected by the Federal Confidentiality of Alcohol and Drug Abuse Patient Records regulations: The Federal rules restrict any use of the information to criminally investigate or prosecute any alcohol or drug abuse patient.[facility] HospitalIn the event this information is protected by the Federal Confidentiality of Alcohol and Drug Abuse Patient Records regulations: The Federal rules restrict any use of the information to criminally investigate or prosecute any alcohol or drug abuse patient.[facility] HospitalIn the event this information is protected by the Federal Confidentiality of Alcohol and Drug Abuse Patient Records regulations: The Federal rules restrict any use of the information to criminally investigate or prosecute any alcohol or drug abuse patient.[facility] HospitalIn the event this information is protected by the Federal Confidentiality of Alcohol and Drug Abuse Patient Records regulations: The Federal rules restrict any use of the information to criminally investigate or prosecute any alcohol or drug abuse patient.[facility] HospitalIn the event this information is protected by the Federal Confidentiality of Alcohol and Drug Abuse Patient Records regulations: The Federal rules restrict any use of the information to criminally investigate or prosecute any alcohol or drug abuse patient.[facility] Reason for Visit (unrecogniz ed section and content) Specialty Diagnoses / Procedures Referred By Contac t Referred To Contact [facility] Diagnoses Generalized weakness Falls frequently Procedures CONSULT TO PHYSICAL THERAPY PHYSICAL THERAPY EVALUATION HIGH COMPLEX 45 MINS Sharda Carl PA-C [address] [place] [address] [facility] [address] [place] [address] Referral ID Status Reason Start Date Expiration Date Visits Requested Visits Authorized [id number] Authorized PCP Requested Referral Auto-Generate d Referral 03/14/2022 03/14/2023 99 99 Reason Comments PT Progress Note Reason Comments Radiology CT Specialty Diagnoses / Procedures Referred By Contac t Referred To Contact CT IMAGING Diagnoses Rectal cancer (HCC) Procedures CT CHEST W IVCON DIAGNOSTIC COMPUTED TOMOGRAPHY THORAX W/CONTRAST Tameka Marshall, SAKINA.BARREL PAINTER [address] [place] [address] Ct [facility] Referral ID Status Reason Start Date Expiration Date V isits Requested Visits Authorized [id number] Closed Auto-Generate d Referral 11/14/2021 12/14/2022 1 [...] HIGH MDM 60-74 MINUTES Sharda Carl PA-C [address] [place] [address] Referral ID Status Reason Start Date Expiration Date V isi Requested Visits Authorized [id number] Closed PCP Requested Referral 02/04/2022 02/04/2023 1 [...] Reason Onset Date Comments Refill Request 05/16/2023 [facility] Plan of Care 05/16/2023 Reason Comments OT [...] DIAGNOSTIC COMPUTED TOMOGRAPHY THORAX W/CONTRAST Tameka Marshall, SAKINA.BARREL PAINTER [address] [place] [address] [place] [address] Referral ID Status Reason Start Date Expiration Date V isits Requested Visits Authorized [id number] Closed Auto-Generate d Referral 03/21/2022 04/20/2023 1 1 Specialty Diagnoses / Procedures Referred By Contac t Referred To Contact CT IMAGING Diagnoses Malignant neoplasm of rectum (HCC) Procedures CT ABD/PEL W IVCON CT ABD & PELVIS W/CONTRAST Sam Greenberg, DO [address] [place] [address] [place] [address] Referral ID Status Reason Start Date Expiration Date V isits Requested Visits Authorized [id number] Closed Auto-Generate d Referral 04/01/2023 04/30/2024 1 1 Specialty Diagnoses / Procedures Referred By Contac t Referred To Contact CT IMAGING Diagnoses Malignant neoplasm of rectum (HCC) Procedures CT CHEST W IVCON DIAGNOSTIC COMPUTED TOMOGRAPHY THORAX W/CONTRAST Sam Greenberg, DO [address] [place] [address] [place] [address] Referral ID Status Reason Start Date Expiration Date V isits Requested Visits Authorized [id number] Closed Auto-Generate d Referral 02/25/2023 03/26/2024 1 1 Specialty Diagnoses / Procedures Referred By Contac t Referred To Contact CT IMAGING Diagnoses Rectal cancer (HCC) Abnormal CT of the abdomen Procedures CT ABD/PEL W IVCON CT ABD & PELVIS W/CONTRAST Tameka Marshall, SAKINA.BARREL PAINTER [address] [place] [address] [place] [address] Referral ID Status Reason Start Date Expiration Date V isits Requested Visits Authorized [id number] Closed Auto-Generate d Referral 10/09/2022 11/08/2023 1 1 Specialty Diagnoses / Procedures Referred By Contac t Referred To Contact [facility] Diagnoses Dementia without behavioral disturbance (HCC) Procedures MRI BRAIN WO IVCON MRI BRAIN BRAIN STEM W/O CONTRAST MATERIAL Mikhail Liu Jr., MD [address] [address] [place] [address] Referral ID Status Reason Start Date Expiration Date V isits Requested Visits Authorized [id number] Closed Auto-Generate d Referral 06/24/2022 07/24/2023 1 [address] Referral ID Status Reason Start Date Expiration Date V isits Requested Visits Authorized [id number] Closed Auto-Generate d Referral 04/01/2023 04/30/2024 1 1 Reason Comments swollen elbow X 1 week Reason Comments New Patient Evaluation Specialty Diagnoses / Procedures Referred By Contac t Referred To Contact Neurology Diagnoses Dementia, unspecified dementia severity, unspecified dementia type, unspecified whether behavioral, psychotic, or mood disturbance or anxiety (HCC) Procedures CONSULT TO NEUROLOGY OFFICE/OUTPATIENT [facility] 60-74 MINUTES Mikhail Liu Jr., MD [address] [facility] [address] [place] [address] Referral ID Status Reason Start Date Expiration Date V isits Requested Visits Authorized [id number] Closed PCP Requested Referral 06/30/2023 06/29/2024 1 [...] Chapincito Tomlin MD [address] [place] [address] [facility] [place] [address] Referral ID Status Reason Start Date Expiration Date V isits Requested Visits Authorized [id number] Closed Auto-Generate d Referral 08/26/2023 09/24/2024 1 1 Care Teams (unrecognized sec tion and content) Waste Minimization Technician Relationship Specialty Start Date End Date Vishal Jones MD [address] [place] [address] PCP - General Family Practice 09/25/17 Deborah Sabillon, ELIE Specialty Mail Censor Oncology 07/30/17 Clement Werner MD, [address] [place] [address] Physician Radiation Oncology 01/29/18 Vishal Jones MD [address] [place] [address] Home Care Physician Family Practice 08/17/20 Maye Gonzalez MD Consulting General Surgery 08/17/20 Dayna Mann RN [address] [place], [place] [id number] Adoption Agent Post Acute Care 08/17/20 Maye Gonzalez MD Referring General Surgery 08/23/20 Waste Minimization Technician Relationship Specialty Start Date End Date Vishal Jones MD [address] [place] [address] PCP - General Family Practice 09/25/17 Deborah Sabillon RN Specialty Mail Censor Oncology 07/30/17 Clement Werner MD, MD [address] [place] [place] [address] Physician Radiation Oncology 01/29/18 Vishal Jones MD [address] [place] [address] Home Care Physician Family Practice 08/17/20 Maye Gonzalez MD Consulting General Surgery 08/17/20 Dayna Mann RN [address] [place], [place] [id number] Adoption Agent Post Acute Care 08/17/20 Maye Gonzalez MD Referring General Surgery 08/23/20 Waste Minimization Technician Relationship Specialty Start Date End Date Vishal Jones MD [address] [facility] [place] [address] PCP - General Family Practice 09/25/17 Deborah Sabillon RN Specialty Mail Censor Oncology 07/30/17 Clement Werner MD, [address] [place] [address] Physician Radiation Oncology 01/29/18 Vishal Jones MD [address] [place] [address] Home Care Physician Family Practice 08/17/20 Maye Gonzalez MD Consulting General Surgery 08/17/20 Dayna Mann RN [address] [place] [address] Adoption Agent Post Acute Care 08/17/20 Maye Gonzalez MD Referring General Surgery 08/23/20 Waste Minimization Technician Relationship Specialty Start Date End Date Vishal Jones MD [address] [place] [address] PCP - General Family Practice 09/25/17 Deborah Sabillon RN Specialty Mail Censor Oncology 07/30/17 Clement Werner MD, [address] [place] [place] [address] Physician Radiation Oncology 01/29/18 Vishal Jones MD [address] [place] [address] Home Care Physician Family Practice 08/17/20 Maye Gonzalez MD Consulting General Surgery 08/17/20 Dayna Mann RN [address] [place], [place] [id number] Adoption Agent Post Acute Care 08/17/20 Maye Gonzalez MD Referring General Surgery 08/23/20 Waste Minimization Technician Relationship Specialty Start Date End Date Vishal Jones MD [address] [place] [address] PCP - General Family Practice 09/25/17 Deborah Sabillon RN Specialty Mail Censor Oncology 07/30/17 Clement Werner MD, [address] [place] [place] [address] Physician Radiation Oncology 01/29/18 Vishal Jones MD [address] [facility] [place] [address] Home Care Physician Family Practice 08/17/20 Maye Gonzalez MD Consulting General Surgery 08/17/20 Dayna Mann RN [address] [place] [address] Adoption Agent Post Acute Care 08/17/20 Maye Gonzalez MD Referring General Surgery 08/23/20 Waste Minimization Technician Relationship Specialty Start Date End Date Vishal Jones MD [address] [place] [address] PCP - General Family Practice 09/25/17 Deborah Sabillon RN Specialty Mail Censor Oncology 07/30/17 Clement Werner MD, [address] [place] [place] [address] Physician Radiation Oncology 01/29/18 Vishal Jones MD [address] [facility] [place] [address] Home Care Physician Family Practice 08/17/20 Maye Gonzalez MD Consulting General Surgery 08/17/20 Dayna Mann RN [address] [place] [address] Adoption Agent Post Acute Care 08/17/20 Maye Gonzalez MD Referring General Surgery 08/23/20 Waste Minimization Technician Relationship Specialty Start Date End Date Vishal Jones MD [address] [facility] [place] [address] PCP - General Family Practice 09/25/17 Deborah Sabillon RN Specialty Mail Censor Oncology 07/30/17 Clement Werner MD, MD [address] [facility] [place] [address] Physician Radiation Oncology 01/29/18 Vishal Jones MD [address] [facility] [address] Home Care Physician Family Practice 08/17/20 Maye Gonzalez MD Consulting General Surgery 08/17/20 Dayna Mann RN [address] [place] [address] Adoption Agent Post Acute Care 08/17/20 Maye Gonzalez MD Referring General Surgery 08/23/20 Waste Minimization Technician Relationship Specialty Start Date End Date Vishal Jones MD [address] [facility] [address] PCP - General Family Practice 09/25/17 Deborah Sabillon RN Specialty Mail Censor Oncology 07/30/17 Clement Werner MD, MD [address] [facility] [place] [address] Physician Radiation Oncology 01/29/18 Vishal Jones MD [address] [facility] [place] [address] Home Care Physician Family Practice 08/17/20 Maye Gonzalez MD Consulting General Surgery 08/17/20 Dayna Mann RN [address] [place] [address] Adoption Agent Post Acute Care 08/17/20 Maye Gonzalez MD Referring General Surgery 08/23/20 Waste Minimization Technician Relationship Specialty Start Date End Date Vishal Jones MD [address] [place] [address] PCP - General Family Practice 09/25/17 Deborah Sabillon RN Specialty Mail Censor Oncology 07/30/17 Clement Werner MD, MD [address] [place] [address] Physician Radiation Oncology 01/29/18 Vishal Jones MD [address] [place] [address] Home Care Physician Family Practice 08/17/20 Maye Gonzalez MD Consulting General Surgery 08/17/20 Dayna Mann RN [address] [place] [address] Adoption Agent Post Acute Care 08/17/20 Maye Gonzalez MD Referring General Surgery 08/23/20 Waste Minimization Technician Relationship Specialty Start Date End Date Vishal Jones MD [address] [place] [address] PCP - General Family Practice 09/25/17 Deborah Sabillon RN Specialty Mail Censor Oncology 07/30/17 Clement Werner MD, MD [address] [place] [address] Physician Radiation Oncology 01/29/18 Vishal Jones MD [address] [place] [address] Home Care Physician Family Practice 08/17/20 Maye Gonzalez MD Consulting General Surgery 08/17/20 Dayna Mann RN [address] [place], [place] [id number] Adoption Agent Post Acute Care 08/17/20 Maye Gonzalez MD Referring General Surgery 08/23/20 Waste Minimization Technician Relationship Specialty Start Date End Date Vishal Jones MD [address] [place] [address] PCP - General Family Practice 09/25/17 Deborah Sabillon RN Specialty Mail Censor Oncology 07/30/17 Clement Werner MD, MD [address] [place] [address] Physician Radiation Oncology 01/29/18 Vishal Jones MD [address] [place] [address] Home Care Physician Family Practice 08/17/20 Maye Gonzalez MD Consulting General Surgery 08/17/20 Dayna Mann RN [address] [place], [place] [phone] Adoption Agent Post Acute Care 08/17/20 Maye Gonzalez MD Referring General Surgery 08/23/20 Waste Minimization Technician Relationship Specialty Start Date End Date Vishal Jones MD [address] [place] [address] PCP - General Family Practice 09/25/17 Deborah Sabillon RN Specialty Mail Censor Oncology 07/30/17 Clement Werner MD, [address] [place] [address] Physician Radiation Oncology 01/29/18 Vishal Jones MD [address] [place] [address] Home Care Physician Family Practice 08/17/20 Maye Gonzalez MD Consulting General Surgery 08/17/20 Dayna Mann RN [address] [place], [place] [phone] Adoption Agent Post Acute Care 08/17/20 Maye Gonzalez MD Referring General Surgery 08/23/20 Waste Minimization Technician Relationship Specialty Start Date End Date Vishal Jones MD [address] [place] [address] PCP - General Family Practice 09/25/17 Deborah Sabillon RN Specialty Mail Censor Oncology 07/30/17 Clement Werner MD, [address] [place] [address] Physician Radiation Oncology 01/29/18 Vishal Jones MD [address] [facility] [place] [address] Home Care Physician Family Practice 08/17/20 Maye Gonzalez MD Consulting General Surgery 08/17/20 Dayna Mann RN [address] [place], [place] [id number] Adoption Agent Post Acute Care 08/17/20 Maye Gonzalez MD Referring General Surgery 08/23/20 Waste Minimization Technician Relationship Specialty Start Date End Date Vishal Jones MD [address] [place] [address] PCP - General Family Practice 09/25/17 Deborah Sabillon RN Specialty Mail Censor Oncology 07/30/17 Clement Werner MD, [address] [place] [address] Physician Radiation Oncology 01/29/18 Vishal Jones MD [address] [place] [address] Home Care Physician Family Practice 08/17/20 Maye Gonzalez MD Consulting General Surgery 08/17/20 Dayna Mann RN [address] [place], [place] [phone] Adoption Agent Post Acute Care 08/17/20 Maye Gonzalez MD Referring General Surgery 08/23/20 Waste Minimization Technician Relationship Specialty Start Date End Date Vishal Jones MD [address] [place] [address] PCP - General Family Practice 09/25/17 Deborah Sabillon RN Specialty Mail Censor Oncology 07/30/17 Clement Werner MD, [address] [place] [address] Physician Radiation Oncology 01/29/18 Vishal Jones MD [address] [place] [address] Home Care Physician Family Practice 08/17/20 Maye Gonzalez MD Consulting General Surgery 08/17/20 Dayna Mann RN [address] [place] [address] Adoption Agent Post Acute Care 08/17/20 Maye Gonzalez MD Referring General Surgery 08/23/20 Waste Minimization Technician Relationship Specialty Start Date End Date Vishal Jones MD [address] [place] [address] PCP - General Family Practice 09/25/17 Deborah Sabillon RN Specialty Mail Censor Oncology 07/30/17 Clement Werner MD, [address] [place] [address] Physician Radiation Oncology 01/29/18 Vishal Jones MD [address] [facility] [place] [address] Home Care Physician Family Practice 08/17/20 Maye Gonzalez MD Consulting General Surgery 08/17/20 Dayna Mann RN [address] [place] [address] Adoption Agent Post Acute Care 08/17/20 Maye Gonzalez MD Referring General Surgery 08/23/20 Waste Minimization Technician Relationship Specialty Start Date End Date Vishal Jones MD [address] [facility] [address] PCP - General Family Medicine 09/25/17 Deborah Sabillon RN Specialty Mail Censor Oncology 07/30/17 Clement Werner MD, MD [address] [place] [address] Physician Radiation Oncology 01/29/18 Vishal Jones MD [address] [facility] [place] [address] Home Care Provider Family Medicine 08/17/20 Maye Gonzalez MD Consulting General Surgery 08/17/20 Dayna Mann RN [address] [place], [place] [id number] Adoption Agent Post Acute Care 08/17/20 Maye Gonzalez MD Referring General Surgery 08/23/20 Waste Minimization Technician Relationship Specialty Start Date End Date Vishal Jones MD [address] [place] [address] PCP - General Family Medicine 09/25/17 Deborah Sabillon RN Specialty Mail Censor Oncology 07/30/17 Clement Werner MD, MD [address] [place] [address] Physician Radiation Oncology 01/29/18 Vishal Jones MD [address] [facility] [place] [address] Home Care Provider Family Medicine 08/17/20 Maye Gonzalez MD Consulting General Surgery 08/17/20 Dayna Mann RN [address] [place] [address] Adoption Agent Post Acute Care 08/17/20 Maye Gonzalez MD Referring General Surgery 08/23/20 Waste Minimization Technician Relationship Specialty Start Date End Date Vishal Jones MD [address] [place] [address] PCP - General Family Medicine 09/25/17 Deborah Sabillon RN Specialty Mail Censor Oncology 07/30/17 Clement Werner MD, [address] [place] [address] Physician Radiation Oncology 01/29/18 Vishal Jones MD [address] [place] [address] Home Care Provider Family Medicine 08/17/20 Maye Gonzalez MD Consulting General Surgery 08/17/20 Dayna Mann RN [address] [place], [place] [phone] Adoption Agent Post Acute Care 08/17/20 Maye Gonzalez MD Referring General Surgery 08/23/20 Waste Minimization Technician Relationship Specialty Start Date End Date Vishal Jones MD [address] [place] [address] PCP - General Family Medicine 09/25/17 Deborah Sabillon RN Specialty Mail Censor Oncology 07/30/17 Clement Werner MD, MD [address] [place] [address] Physician Radiation Oncology 01/29/18 Vishal Jones MD [address] [place] [address] Home Care Provider Family Medicine 08/17/20 Maye Gonzalez MD Consulting General Surgery 08/17/20 Dayna Mann RN [address] [place], [place] [phone] Adoption Agent Post Acute Care 08/17/20 Maye Gonzalez MD Referring General Surgery 08/23/20 Waste Minimization Technician Relationship Specialty Start Date End Date Vishal Jones MD [address] [place] [address] PCP - General Family Medicine 09/25/17 Deborah Sabillon RN Specialty Mail Censor Oncology 07/30/17 Clement Werner MD, [address] [place] [facility] [place] [address] Physician Radiation Oncology 01/29/18 Vishal Jones MD [address] [facility] [place] [address] Home Care Provider Family Medicine 08/17/20 Maye Gonzalez MD Consulting General Surgery 08/17/20 Dayna Mann RN [address] [place], [place] [phone] Adoption Agent Post Acute Care 08/17/20 Maye Gonzalez MD Referring General Surgery 08/23/20 Waste Minimization Technician Relationship Specialty Start Date End Date Vishal Jones MD [address] [place] [address] PCP - General Family Medicine 09/25/17 Deborah Sabillon RN Specialty Mail Censor Oncology 07/30/17 Clement Werner MD, [address] [place] [address] Physician Radiation Oncology 01/29/18 Vishal Jones MD [address] [facility] [place] [address] Home Care Provider Family Medicine 08/17/20 Maye Gonzalez MD [address] [address] Consulting General Surgery 08/17/20 Dayna Mann RN [address] [place], [place] [phone] Adoption Agent Post Acute Care 08/17/20 Maye Gonzalez MD [address] [facility], [place] [address]491 Referring General Surgery 08/23/20 Waste Minimization Technician Relationship Specialty Start Date End Date Vishal Jones MD [address] [facility] [place] [address] PCP - General Family Medicine 09/25/17 Deborah Sabillon RN Specialty Mail Censor Oncology 07/30/17 Clement Werner MD, MD [address] [place] [place] [address] Physician Radiation Oncology 01/29/18 Vishal Jones MD [address] [facility] [place] [address] Home Care Provider Family Medicine 08/17/20 Maye Gonzalez MD [address] [place] [facility] [place] [address] Consulting General Surgery 08/17/20 Dayna Mann RN [address] [place] [address] Adoption Agent Post Acute Care 08/17/20 Maye Gonzalez MD [address] [facility], [place] [address]461 Referring General Surgery 08/23/20 Waste Minimization Technician Relationship Specialty Start Date End Date Vishal Jones MD [address] [facility] [place] [address] PCP - General Family Medicine 09/25/17 Deborah Sabillon RN Specialty Mail Censor Oncology 07/30/17 Clement Werner MD, [address] [place] [address] Physician Radiation Oncology 01/29/18 Vishal Jones MD [address] [facility] [place] [address] Home Care Provider Family Medicine 08/17/20 Maye Gonzalez MD [address] [place] [place] [address] Consulting General Surgery 08/17/20 Dayna Mann RN [address] [place] [address] Adoption Agent Post Acute Care 08/17/20 Maye Gonzalez MD [address] [place] [place] [address] Referring General Surgery 08/23/20 Waste Minimization Technician Relationship Specialty Start Date End Date Vishal Jones MD [address] [facility] [place] [address] PCP - General Family Medicine 09/25/17 Deborah Sabillon RN Specialty Mail Censor Oncology 07/30/17 Clement Werner MD, [address] [place] [facility] [place] [address] Physician Radiation Oncology 01/29/18 Vishal Jones MD [address] [facility] [place] [address] Home Care Provider Family Medicine 08/17/20 Maye Gonzalez MD [address] [place] [place] [address] Consulting General Surgery 08/17/20 Dayna Mann RN [address] [place] [address] Adoption Agent Post Acute Care 08/17/20 Maye Gonzalez MD [address] [place] [facility] [place] [address] Referring General Surgery 08/23/20 Waste Minimization Technician Relationship Specialty Start Date End Date Vishal Jones MD [address] [facility] [place] [address] PCP - General Family Medicine 09/25/17 Deborah Sabillon RN Specialty Mail Censor Oncology 07/30/17 Clement Werner MD, [address] [place] [place] [address] Physician Radiation Oncology 01/29/18 Vishal Jones MD [address] [facility] [place] [address] Home Care Provider Family Medicine 08/17/20 Maye Gonzalez MD [address] [place] [place] [address] Consulting General Surgery 08/17/20 Dayna Mann, ELIE [address] [place], [place] [phone] Adoption Agent Post Acute Care 08/17/20 Maye Gonzalez MD [address] [place] [address] Referring General Surgery 08/23/20 Waste Minimization Technician Relationship Specialty Start Date End Date Vishal Jones MD [address] [facility] [place] [address] PCP - General Family Medicine 09/25/17 Deborah Sabillon RN Specialty Mail Censor Oncology 07/30/17 Clement Werner MD, [address] [place] [place] [address] Physician Radiation Oncology 01/29/18 Vishal Jones MD [address] [facility] [place] [address] Home Care Provider Family Medicine 08/17/20 Maye Gonzalez MD [address] [place] [place] [address] Consulting General Surgery 08/17/20 Dayna Mann RN [address] [place] [address] Adoption Agent Post Acute Care 08/17/20 Maye Gonzalez MD [address] [facility], [place] [address]781 Referring General Surgery 08/23/20 Waste Minimization Technician Relationship Specialty Start Date End Date Vishal Jones MD [address] [facility] [place] [address] PCP - General Family Medicine 09/25/17 Deborah Sabillon RN Specialty Mail Censor Oncology 07/30/17 Clement Werner MD, MD [address] [place] [place] [address] Physician Radiation Oncology 01/29/18 Vishal Jones MD [address] [facility] [place] [address] Home Care Provider Family Medicine 08/17/20 Maye Gonzalez MD [address] [place] [facility] [place] [address] Consulting General Surgery 08/17/20 Dayna Mann RN [address] [place] [address] Adoption Agent Post Acute Care 08/17/20 Maye Gonzalez MD [address] [place] [place] [address] Referring General Surgery 08/23/20 Waste Minimization Technician Relationship Specialty Start Date End Date Vishal Jones MD [address] [facility] [place] [address] PCP - General Family Medicine 09/25/17 Deborah Sabillon RN Specialty Mail Censor Oncology 07/30/17 Clement Werner MD, [address] [place] [address] Physician Radiation Oncology 01/29/18 Vishal Jones MD [address] [facility] [place] [address] Home Care Provider Family Medicine 08/17/20 Maye Gonzalez MD [address] [place] [place] [address] Consulting General Surgery 08/17/20 Dayna Mann RN [address] [facility] [place] [phone] Adoption Agent Post Acute Care 08/17/20 Maye Gonzalez MD [address] [place] [place] [address] Referring General Surgery 08/23/20 Waste Minimization Technician Relationship Specialty Start Date End Date Vishal Jones MD [address] [facility] [place] [address] PCP - General Family Medicine 09/25/17 Deborah Sabillon RN Specialty Mail Censor Oncology 07/30/17 Clement Werner MD, [address] [place] [place] [address] Physician Radiation Oncology 01/29/18 Vishal Jones MD [address] [facility] [place] [address] Home Care Provider Family Medicine 08/17/20 Maye Gonzalez MD [address] [place] [place] [address] Consulting General Surgery 08/17/20 Dayna Mann RN [address] [place], [place] [phone] Adoption Agent Post Acute Care 08/17/20 Maye Gonzalez MD [address] [place] [place] [address] Referring General Surgery 08/23/20 Waste Minimization Technician Relationship Specialty Start Date End Date Vishal Jones MD [address] [place] [address] PCP - General Family Medicine 09/25/17 Deborah Sabillon RN Specialty Mail Censor Oncology 07/30/17 Clement Werner MD, [address] [place] [place] [address] Physician Radiation Oncology 01/29/18 Vishal Jones MD [address] [place] [address] Home Care Provider Family Medicine 08/17/20 Maye Gonzalez MD [address] [place] [address] Consulting General Surgery 08/17/20 Dayna Mann, ELIE [address] [place], [place] [phone] Adoption Agent Post Acute Care 08/17/20 Maye Gonzalez MD [address] [place] [place] [address] Referring General Surgery 08/23/20 Waste Minimization Technician Relationship Specialty Start Date End Date Vishal Jones MD [address] [place] [address] PCP - General Family Medicine 09/25/17 Deborah Sabillon RN Specialty Mail Censor Oncology 07/30/17 Clement Werner MD, [address] [place] [facility] [place] [address] Physician Radiation Oncology 01/29/18 Vishal Jones MD [address] [place] [address] Home Care Provider Family Medicine 08/17/20 Maye Gonzalez MD [address] [place], [place] 857491 Consulting General Surgery 08/17/20 Dayna Mann RN [address] [place] [address] Adoption Agent Post Acute Care 08/17/20 Maye Gonzalez MD [address] [place], [place] 418341 Referring General Surgery 08/23/20 Waste Minimization Technician Relationship Specialty Start Date End Date Vishal Jones MD [address] [place] [address] PCP - General Family Medicine 09/25/17 Deborah Sabillon RN Specialty Mail Censor Oncology 07/30/17 Clement Werner MD, [address] [place] [address] Physician Radiation Oncology 01/29/18 Vishal Jones MD [address] [place] [address] Home Care Provider Family Medicine 08/17/20 Maye Gonzalez MD [address] [place], [place] [address]1721 Consulting General Surgery 08/17/20 aDyna Mann RN [address] [place] [address] Adoption Agent Post Acute Care 08/17/20 Maye Gonzalez MD [address] [place], [place] [address]4871 Referring General Surgery 08/23/20 Waste Minimization Technician Relationship Specialty Start Date End Date Vishal Jones MD [address] [place] [address] PCP - General Family Medicine 09/25/17 Deborah Sabillon RN Specialty Mail Censor Oncology 07/30/17 Clement Werner MD, [address] [place] [place] [address] Physician Radiation Oncology 01/29/18 Vishal Jones MD [address] [facility] [place] [address] Home Care Provider Family Medicine 08/17/20 Maye Gonzalez MD [address] [place] [place] [address] Consulting General Surgery 08/17/20 Dayna Mann RN [address] [place], [place] [phone] Adoption Agent Post Acute Care 08/17/20 Maye Gonzalez MD [address] [place] [place] [address] Referring General Surgery 08/23/20 Waste Minimization Technician Relationship Specialty Start Date End Date Vishal Jones MD [address] [facility] [place] [address] PCP - General Family Medicine 09/25/17 Deborah Sabillon RN Specialty Mail Censor Oncology 07/30/17 Clement Werner MD, [address] [place] [place] [address] Physician Radiation Oncology 01/29/18 Vishal Jones MD [address] [facility] [place] [address] Home Care Provider Family Medicine 08/17/20 Maye Gonzalez MD [address] [place] [address] Consulting General Surgery 08/17/20 Dayna Mann RN [address] [place] [address] Adoption Agent Post Acute Care 08/17/20 Maye Gonzalez MD [address] [place], [place] [address]89441 Referring General Surgery 08/23/20 Waste Minimization Technician Relationship Specialty Start Date End Date Vishal Jones MD [address] [place] [address] PCP - General Family Medicine 09/25/17 Deborah Sabillon RN Specialty Mail Censor Oncology 07/30/17 Clement Werner MD, [address] [place] [address] Physician Radiation Oncology 01/29/18 Vishal Jones MD [address] [place] [address] Home Care Provider Family Medicine 08/17/20 Maye Gonzalez MD [address] [place] [address] Consulting General Surgery 08/17/20 Dayna Mann, ELIE [address] [place], [place] [phone] Adoption Agent Post Acute Care 08/17/20 Maye Gonzalez MD [address] [place] [address] Referring General Surgery 08/23/20 Waste Minimization Technician Relationship Specialty Start Date End Date Vishal Jones MD [address] [place] [address] PCP - General Family Medicine 09/25/17 Deborah Sabillon RN Specialty Mail Censor Oncology 07/30/17 Clement Werner MD, [address] [place] [address] Physician Radiation Oncology 01/29/18 Vishal Jones MD [address] [facility] [place] [address] Home Care Provider Family Medicine 08/17/20 Maye Gonzalez MD [address] [place] [place] [address] Consulting General Surgery 08/17/20 Dayna Mann RN [address] [place], [place] [id number] Adoption Agent Post Acute Care 08/17/20 Maye Gonzalez MD [address] [place] [address] Referring General Surgery 08/23/20 Waste Minimization Technician Relationship Specialty Start Date End Date Vishal Jones MD [address] [facility] [place] [address] PCP - General Family Medicine 09/25/17 Deborah Sabillon RN Specialty Mail Censor Oncology 07/30/17 Clement Werner MD, [address] [place] [place] [address] Physician Radiation Oncology 01/29/18 Vishal Jones MD [address] [facility] [place] [address] Home Care Provider Family Medicine 08/17/20 Maye Gonzalez MD [address] [place] [place] [address] Consulting General Surgery 08/17/20 Dayna Mann RN [address] [place], [place] [phone] Adoption Agent Post Acute Care 08/17/20 Maye Gonzalez MD [address] [place] [place] [address] Referring General Surgery 08/23/20 Waste Minimization Technician Relationship Specialty Start Date End Date Vishal Jones MD [address] [facility] [place] [address] PCP - General Family Medicine 09/25/17 Deborah Sabillon RN Specialty Mail Censor Oncology 07/30/17 Clement Werner MD, MD [address] [facility] [place] [address] Physician Radiation Oncology 01/29/18 Vishal Jones MD [address] [facility] [place] [address] Home Care Provider Family Medicine 08/17/20 Maye Gonzalez MD [address] [place] [place] [address] Consulting General Surgery 08/17/20 Dayna Mann, RN [address] [facility], [place] [phone] Adoption Agent Post Acute Care 08/17/20 Maye Gonzalez MD [address] [place] [place] [address] Referring General Surgery 08/23/20 Waste Minimization Technician Relationship Specialty Start Date End Date Vishal Jones MD [address] [facility] [place] [address] PCP - General Family Medicine 09/25/17 Deborah Sabillon RN Specialty Mail Censor Oncology 07/30/17 Clement Werner MD, [address] [facility] [place] [address] Physician Radiation Oncology 01/29/18 Vishal Jones MD [address] [facility] [place] [address] Home Care Provider Family Medicine 08/17/20 Maye Gonzalez MD [address] [place] [address] Consulting General Surgery 08/17/20 Dayna Mann RN [address] [place] [address] Adoption Agent Post Acute Care 08/17/20 Maye Gonzalez MD [address] [place], [place] [address]81 Referring General Surgery 08/23/20 Waste Minimization Technician Relationship Specialty Start Date End Date Vishal Jones MD [address] [place] [address] PCP - General Family Medicine 09/25/17 Deborah Sabillon RN Specialty Mail Censor Oncology 07/30/17 Clement Werner MD, MD [address] [place] [address] Physician Radiation Oncology 01/29/18 Vishal Jones MD [address] [place] [address] Home Care Provider Family Medicine 08/17/20 Maye Gonzalez MD [address] [place] [address] Consulting General Surgery 08/17/20 Dayna Mann RN [address] [place] [address] Adoption Agent Post Acute Care 08/17/20 Maye Gonzalez MD [address] [place] [address] Referring General Surgery 08/23/20 Waste Minimization Technician Relationship Specialty Start Date End Date Vishal Jones MD [address] [place] [address] PCP - General Family Medicine 09/25/17 Deborah Sabillon RN Specialty Mail Censor Oncology 07/30/17 Clement Werner MD, MD [address] [place] [address] Physician Radiation Oncology 01/29/18 Vishal Jones MD [address] [place] [address] Home Care Provider Family Medicine 08/17/20 Maye Gonzalez MD [address] [place] [address] Consulting General Surgery 08/17/20 Dayna Mann, RN [address] [place], [place] [id number] Adoption Agent Post Acute Care 08/17/20 Maye Gonzalez MD [address] [address] Referring General Surgery 08/23/20 Waste Minimization Technician Relationship Specialty Start Date End Date Vishal Jones MD [address] [place] [address] PCP - General Family Medicine 09/25/17 Deborah Sabillon RN Specialty Mail Censor Oncology 07/30/17 Clement Werner MD, MD [address] [place] [address] Physician Radiation Oncology 01/29/18 Vishal Jones MD [address] [facility] [place] [address] Home Care Provider Family Medicine 08/17/20 Maye Gonzalez MD [address] [place], [place] [address] Consulting General Surgery 08/17/20 Dayna Mann RN [address] [place] [address] Adoption Agent Post Acute Care 08/17/20 Maye Gonzalez MD [address] [place] [address] Referring General Surgery 08/23/20 Waste Minimization Technician Relationship Specialty Start Date End Date Vishal Jones MD [address] [facility] [place] [address] PCP - General Family Medicine 09/25/17 Deborah Sabillon RN Specialty Mail Censor Oncology 07/30/17 Clement Werner MD, [address] [place] [address] Physician Radiation Oncology 01/29/18 Vishal Jones MD [address] [facility] [address] Home Care Provider Family Medicine 08/17/20 Maye Gonzalez MD [address] [place] [address] Consulting General Surgery 08/17/20 Dayna Mann RN [address] [place] [address] Adoption Agent Post Acute Care 08/17/20 Maye Gonzalez MD [address] [place], [place] [address]40751 Referring General Surgery 08/23/20 Waste Minimization Technician Relationship Specialty Start Date End Date Vishal Jones MD [address] [facility], [place] [address]441 PCP - General Family Medicine 09/25/17 Deborah Sabillon RN Specialty Mail Censor Oncology 07/30/17 Clement Werner MD, MD [address] [place] [address] Physician Radiation Oncology 01/29/18 Vishal Jones MD [address] [facility] [place] [address] Home Care Provider Family Medicine 08/17/20 Maye Gonzalez MD [address] [place], [place] [address] Consulting General Surgery 08/17/20 Dayna Mann RN [address] [place], [place] [phone] Adoption Agent Post Acute Care 08/17/20 Maye Gonzalez MD [address] [facility] [place] [address] Referring General Surgery 08/23/20 Waste Minimization Technician Relationship Specialty Start Date End Date Vishal Jones MD [address] [place] [address] PCP - General Family Medicine 09/25/17 Deborah Sabillon RN Specialty Mail Censor Oncology 07/30/17 Clement Werner MD, MD [address] [place] [address] Physician Radiation Oncology 01/29/18 Vishal Jones MD [address] [place] [address] Home Care Provider Family Medicine 08/17/20 Maye Gonzalez MD [address] [place] [address] Consulting General Surgery 08/17/20 Dayna Mann, RN [address] [facility], [place] [phone] Adoption Agent Post Acute Care 08/17/20 Maye Gonzalez MD [address] [place] [address] Referring General Surgery 08/23/20 Waste Minimization Technician Relationship Specialty Start Date End Date Vishal Jones MD [address] [facility] [place] [address] PCP - General Family Medicine 09/25/17 Deborah Sabillon RN Specialty Mail Censor Oncology 07/30/17 Clement Werner MD, [address] [address] Physician Radiation Oncology 01/29/18 Vishal Jones MD [address] [facility] [place] [address] Home Care Provider Family Medicine 08/17/20 Maye Gonzalez MD [address] [place], [place] 577781 Consulting General Surgery 08/17/20 Dayna Mann RN [address] [facility] [place] [address] Adoption Agent Post Acute Care 08/17/20 Maye Gonzalez MD [address] [place] [address] Referring General Surgery 08/23/20 Waste Minimization Technician Relationship Specialty Start Date End Date Vishal Jones MD [address] [place] [address] PCP - General Family Medicine 09/25/17 Deborah Sabillon RN Specialty Mail Censor Oncology 07/30/17 Clement Werner MD, [address] [place], [place] 629521 Physician Radiation Oncology 01/29/18 Vishal Jones MD [address] [place] [address] Home Care Provider Family Medicine 08/17/20 Maye Gonzalez MD [address] [place] [address] Consulting General Surgery 08/17/20 Dayna Mann RN [address] [place] [address] Adoption Agent Post Acute Care 08/17/20 Maye Gonzalez MD [address] [place], [place] 731551 Referring General Surgery 08/23/20 Waste Minimization Technician Relationship Specialty Start Date End Date Vishal Jones MD [address] [place], [place] [address]658[address] PCP - General Family Medicine 09/25/17 Debroah Sabillon RN Specialty Mail Censor Oncology 07/30/17 Clement Werner MD, MD [address] [place] [address] Physician Radiation Oncology 01/29/18 Vishal Jones MD [address] [place] [address] Home Care Provider Family Medicine 08/17/20 Maye Gonzalez MD [address] [place] [address] Consulting General Surgery 08/17/20 Dayna Mann RN [address] [place], [place] [phone] Adoption Agent Post Acute Care 08/17/20 Maye Gonzalez MD [address] [place] [address] Referring General Surgery 08/23/20 Waste Minimization Technician Relationship Specialty Start Date End Date Vishal Jones MD [address] [place] [address] PCP - General Family Medicine 09/25/17 Deborah Sabillon RN Specialty Mail Censor Oncology 07/30/17 Clement Werner MD, MD [address] [place] [address] Physician Radiation Oncology 01/29/18 Vishal Jones MD [address] [place] [address] Home Care Provider Family Medicine 08/17/20 Maye Gonzalez MD [address] [place], [place] 335561 Consulting General Surgery 08/17/20 Dayna Mann RN [address] [place] [address] Adoption Agent Post Acute Care 08/17/20 Maye Gonzalez MD [address] [place] [address] Referring General Surgery 08/23/20 Waste Minimization Technician Relationship Specialty Start Date End Date Vishal Jones MD [address] [facility] [address] PCP - General Family Medicine 09/25/17 Deborah Sabillon RN Specialty Mail Censor Oncology 07/30/17 Clement Werner MD, [address] [place] [address] Physician Radiation Oncology 01/29/18 Vishal Jones MD [address] [facility] [place] [address] Home Care Provider Family Medicine 08/17/20 Maye Gonzalez MD [address] [place] [address] Consulting General Surgery 08/17/20 Dayna Mann RN [address] [place] [address] Adoption Agent Post Acute Care 08/17/20 Maye Gonzalez MD [address] [place], [place] 683471 Referring General Surgery 08/23/20 Waste Minimization Technician Relationship Specialty Start Date End Date Vishal Jones MD [address] [place] [address] PCP - General Family Medicine 09/25/17 Deborah Sabillon RN Specialty Mail Censor Oncology 07/30/17 Clement Werner MD, [address] [place] [address] Physician Radiation Oncology 01/29/18 Vishal Jones MD [address] [facility] [address] Home Care Provider Family Medicine 08/17/20 Maye Gonzalez MD [address] [place] [address] Consulting General Surgery 08/17/20 Dayna Mann, RN [address] [facility], [place] [phone] Adoption Agent Post Acute Care 08/17/20 Maye Gonzalez MD [address] [address] Referring General Surgery 08/23/20 Waste Minimization Technician Relationship Specialty Start Date End Date Vishal Jones MD [address] [place] [address] PCP - General Family Medicine 09/25/17 Deborah Sabillon RN Specialty Mail Censor Oncology 07/30/17 Clement Werner MD, MD [address] [place] [address] Physician Radiation Oncology 01/29/18 Vishal Jones MD [address] [facility] [address] Home Care Provider Family Medicine 08/17/20 Maye Gonzalez MD [address] [place], [place] 612181 Consulting General Surgery 08/17/20 Dayna Mann RN [address] [place] [address] Adoption Agent Post Acute Care 08/17/20 Maye Gonzalez MD [address] [place], [place] 694841 Referring General Surgery 08/23/20 Waste Minimization Technician Relationship Specialty Start Date End Date Vishal Jones MD [address] [place] [address] PCP - General Family Medicine 09/25/17 Deborah Sabillon RN Specialty Mail Censor Oncology 07/30/17 Clement Werner MD, MD [address] [place] [address] Physician Radiation Oncology 01/29/18 Vishal Jones MD [address] [place] [address] Home Care Provider Family Medicine 08/17/20 Maye Gonzalez MD [address] [place] [address] Consulting General Surgery 08/17/20 Dayna Mann RN [address] [place] [address] Adoption Agent Post Acute Care 08/17/20 Maye Gonzalez MD [address] [place], [place] 936981 Referring General Surgery 08/23/20 Waste Minimization Technician Relationship Specialty Start Date End Date Vishal Jones MD [address] [facility], [place] 166291 PCP - General Family Medicine 09/25/17 Deborah Sabillon RN Specialty Mail Censor Oncology 07/30/17 Clement Werner MD, MD [address] [place] [address] Physician Radiation Oncology 01/29/18 Vishal Jones MD [address] [facility] [place] [address] Home Care Provider Family Medicine 08/17/20 Maye Gonzalez MD [address] [place] [facility] [place] [address] Consulting General Surgery 08/17/20 Dayna Mann, RN [address] [place], [place] [phone] Adoption Agent Post Acute Care 08/17/20 Maye Gonzalez MD [address] [facility], [place] 650701 Referring General Surgery 08/23/20 Waste Minimization Technician Relationship Specialty Start Date End Date Vishal Jones MD [address] [facility] [address] PCP - General Family Medicine 09/25/17 Deborah Sabillon RN Specialty Mail Censor Oncology 07/30/17 Clement Werner MD, [address] [place] [address] Physician Radiation Oncology 01/29/18 Vishal Jones MD [address] [place] [address] Home Care Provider Family Medicine 08/17/20 Maye Gonzalez MD [address] [place], [place] 143621 Consulting General Surgery 08/17/20 Dayna Mann RN [address] [facility] [place] [address] Adoption Agent Post Acute Care 08/17/20 Maye Gonzalez MD [address] [place] [address] Referring General Surgery 08/23/20 Waste Minimization Technician Relationship Specialty Start Date End Date Vishal Jones MD [address] [facility] [place] [address] PCP - General Family Medicine 09/25/17 Deborah Sabillon RN Specialty Mail Censor Oncology 07/30/17 Clement Werner MD, MD [address] [place] [address] Physician Radiation Oncology 01/29/18 Vishal Jones MD [address] [facility] [place] [address] Home Care Provider Family Medicine 08/17/20 Maye Gonzalez MD [address] [place] [address] Consulting General Surgery 08/17/20 Dayna Mann RN [address] [facility] [place] [address] Adoption Agent Post Acute Care 08/17/20 Maye Gonzalez MD [address] [place], [place] 88[address]21 Referring General Surgery 08/23/20 Waste Minimization Technician Relationship Specialty Start Date End Date Vishal Jones MD [address] [facility], [place] 439881 PCP - General Family Medicine 09/25/17 Deborah Sabillon RN Specialty Mail Censor Oncology 07/30/17 Clement Werner MD, MD [address] [place], [place] 349671 Physician Radiation Oncology 01/29/18 Vishal Jones MD [address] [facility], [place] 729901 Home Care Provider Family Medicine 08/17/20 Maye Gonzalez MD [address] [place], [place] 797451 Consulting General Surgery 08/17/20 Dayna Mann RN [address] [facility], [place] [phone] Adoption Agent Post Acute Care 08/17/20 Maye Gonzalez MD [address] [address] Referring General Surgery 08/23/20 Waste Minimization Technician Relationship Specialty Start Date End Date Vishal Jones MD [address] [facility], [place] 530041 PCP - General Family Medicine 09/25/17 Deborah Sabillon RN Specialty Mail Censor Oncology 07/30/17 Clement Werner MD, MD [address] [place] [address] Physician Radiation Oncology 01/29/18 Vishal Jones MD [address] [place] [address] Home Care Provider Family Medicine 08/17/20 Maye Gonzalez MD [address] [place] [address] Consulting General Surgery 08/17/20 Dayna Mann RN [address] [place], [place] [phone] Adoption Agent Post Acute Care 08/17/20 Maye Gonzalez MD [address] [place] [address] Referring General Surgery 08/23/20 Waste Minimization Technician Relationship Specialty Start Date End Date Vishal Jones MD [address] [place] [address] PCP - General Family Medicine 09/25/17 Deborah Sabillon RN Specialty Mail Censor Oncology 07/30/17 Clement Werner MD, MD [address] [place] [address] Physician Radiation Oncology 01/29/18 Vishal Jones MD [address] [place] [address] Home Care Provider Family Medicine 08/17/20 Maye Gonzalez MD [address] [place], [place] 952161 Consulting General Surgery 08/17/20 Dayna Mann RN [address] [facility] [place] [address] Adoption Agent Post Acute Care 08/17/20 Maye Gonzalez MD [address] [place] [address] Referring General Surgery 08/23/20 Roxana Davis LISW [address] [place] [address] Cutting Table Operator Hematology/Oncology 07/23/23 Waste Minimization Technician Relationship Specialty Start Date End Date Vishal Jones MD [address] [place] [address] PCP - General Family Medicine 09/25/17 Deborah Sabillon RN Specialty Mail Censor Oncology 07/30/17 Clement Werner MD, MD [address] [place] [address] Physician Radiation Oncology 01/29/18 Vishal Jones MD [address] [place] [address] Home Care Provider Family Medicine 08/17/20 Maye Gonzalez MD [address] [place] [address] Consulting General Surgery 08/17/20 Dayna Mann RN [address] [facility] [place] [address] Adoption Agent Post Acute Care 08/17/20 Maye Gonzalez MD [address] [place] [address] Referring General Surgery 08/23/20 Roxana Davis LISW [address] [place] [address] Cutting Table Operator Hematology/Oncology 07/23/23 Waste Minimization Technician Relationship Specialty Start Date End Date Vishal Jones MD [address] [facility] [address] PCP - General Family Medicine 09/25/17 Deborah Sabillon, RN Specialty Mail Censor Oncology 07/30/17 Clement Werner MD, [address] [facility], [place] 521091 Physician Radiation Oncology 01/29/18 Vishal Jones MD [address] [facility], [place] [address] Home Care Provider Family Medicine 08/17/20 Maye Gonzalez MD [address] [place] [facility] [place] [address] Consulting General Surgery 08/17/20 Dayna Mann, ELIE [address] [place], [place] [phone] Adoption Agent Post Acute Care 08/17/20 Maye Gonzalez MD [address] [facility] [place] [address] Referring General Surgery 08/23/20 Roxana Davis LISW [address] [place] [address] Cutting Table Operator Hematology/Oncology 07/23/23 Waste Minimization Technician Relationship Specialty Start Date End Date Vishal Jones MD [address] [facility] [address] PCP - General Family Medicine 09/25/17 Deborah Sabillon, RN Specialty Mail Censor Oncology 07/30/17 Clement Werner MD [address] [facility] [place] [address] Physician Radiation Oncology 01/29/18 Vishal Jones MD [address] [facility] [address]11 Home Care Provider Family Medicine 08/17/20 Maye Gonzalez MD [address] [place], [place] 907661 Consulting General Surgery 08/17/20 Dayna Mann, ELIE [address] [place], [place] [phone] Adoption Agent Post Acute Care 08/17/20 Maye Gonzalez MD [address] [place] [address] Referring General Surgery 08/23/20 Roxana Davis LISW [address] [place] [address] Cutting Table Operator Hematology/Oncology 07/23/23 Waste Minimization Technician Relationship Specialty Start Date End Date Vishal Jones MD [address] [facility] [place] [address] PCP - General Family Medicine 09/25/17 Deborah Sabillon RN Specialty Mail Censor Oncology 07/30/17 Clement Werner MD [address] [facility] [place] [address] Physician Radiation Oncology 01/29/18 Vishal Jones MD [address] [facility] [place] 12[address] Home Care Provider Family Medicine 08/17/20 Maye Gonzalez MD [address] [place] 214[address] Consulting General Surgery 08/17/20 Dayna Mann, ELIE [address] [place] [address] Adoption Agent Post Acute Care 08/17/20 Maye Gonzalez MD [address] [address] Referring General Surgery 08/23/20 Roxana Davis LISW [address] [place] [address] Cutting Table Operator Hematology/Oncology 07/23/23 Waste Minimization Technician Relationship Specialty Start Date End Date Vishal Jones MD [address] [facility] [place] [address] PCP - General Family Medicine 09/25/17 Deborah Sabillon RN Specialty Mail Censor Oncology 07/30/17 Clement Werner MD [address] [place] [address] Physician Radiation Oncology 01/29/18 Vishal Jones MD [address] [facility] [place] [address] Home Care Provider Family Medicine 08/17/20 Maye Gonzalez MD [address] [place] [address] Consulting General Surgery 08/17/20 Dayna Mann RN [address] [place], [place] [phone] Adoption Agent Post Acute Care 08/17/20 Maye Gonzalez MD [address] [place] [address] Referring General Surgery 08/23/20 Roxana Davis LISW [address] [place] [address] Cutting Table Operator Hematology/Oncology 07/23/23 Waste Minimization Technician Relationship Specialty Start Date End Date Vishal Jones MD [address] [facility], [place] 0[address]31 PCP - General Family Medicine 09/25/17 Deborah Sabillon, RN Specialty Mail Censor Oncology 07/30/17 Clement Werner MD [address] [facility], [place] 844981 Physician Radiation Oncology 01/29/18 Vishal Jones MD [address] [place], [place] 623161 Home Care Provider Family Medicine 08/17/20 Maye Gonzalez MD [address] [place] [address] Consulting General Surgery 08/17/20 Dayna Mann RN [address] [place], [place] [phone] Adoption Agent Post Acute Care 08/17/20 Maye Gonzalez MD [address] [place], [place] 341741 Referring General Surgery 08/23/20 Roxana Davis LISW [address] [place] [address] Cutting Table Operator Hematology/Oncology 07/23/23 Waste Minimization Technician Relationship Specialty Start Date End Date Vishal Jones MD [address] [facility] [place] [address] PCP - General Family Medicine 09/25/17 Deborah Sabillon, RN Specialty Mail Censor Oncology 07/30/17 Clement Werner MD [address] [place], [place] 744981 Physician Radiation Oncology 01/29/18 Vishal Jones MD [address] [facility], [place] [address]111 Home Care Provider Family Medicine 08/17/20 Maye Gonzalez MD [address] [place], [place] 253341 Consulting General Surgery 08/17/20 Dayna Mann, ELIE [address] [place], [place] [phone] Adoption Agent Post Acute Care 08/17/20 Myae Gonzalez MD [address] [address] Referring General Surgery 08/23/20 Roxana Davis LISW [address] [place] [address] Cutting Table Operator Hematology/Oncology 07/23/23 Waste Minimization Technician Relationship Specialty Start Date End Date Vishal Jones MD [address] [place], [place] 722981 PCP - General Family Medicine 09/25/17 Deborah Sabillon RN Specialty Mail Censor Oncology 07/30/17 Clement Werner MD [address] [place] [address] Physician Radiation Oncology 01/29/18 Vishal Jones MD [address] [facility], [place] 887301 Home Care Provider Family Medicine 08/17/20 Maye Gonzalez MD [address] [place], [place] 840751 Consulting General Surgery 08/17/20 Dayna Mann RN [address] [place] [address] Adoption Agent Post Acute Care 08/17/20 Maye Gonzalez MD [address] [place], [place] 650161 Referring General Surgery 08/23/20 Roxana Davis LISW [address] [place] [address] Cutting Table Operator Hematology/Oncology 07/23/23 FOR RECORDS PERTAINING TO [...] BE BASED ON THE PRIMARY CLINICAL RECORDS. [facility] [employer] [facility]. provides no warranty or guarantee of the accuracy or completeness of information in this document.
--- OUTSIDE RECORDS SUMMARY | 2023-11-14 02:47 | XMS RPT_ITS | CCD ---
Author Name Unknown Address [address] [place] [address] Organization [facility] Care Team Providers Care Foot Specialist Name Role Phone Nikolay Villa Unavailable Unavailable Renetta DELGADILLO, Asha Noble Unavailable Unavailable ELIE Roger, Angélica Galicia Unavailable Unavailabl e Ann-Marie Fox Unavailable Ann-Marie Fox Unavailable MD Yuko, Geneva S Unavailable Bradly Condon Unavailable Unavailable Nikolay [...] Unavailable ROBERT, VISHAL A Referring Unavailable ROBERT, VSIHAL A Primary Care Unavailable TAMEKA MARSHALL Attending [...] TABS as needed as directed HYDROCODONE-ACETAMI WILLY [id number] Eral Huntley MD Problems Active Problems Problem Classification [...] aftercare (1 source) Polypharmacy ; Translations: [Other fci (current) drug therapy] 08-26-2023 Episodic Other gastrointestinal [...] (4 sources) Long-term drug therapy; Translations: [Other fci (current) drug therapy] Onset: 04-02-2011 04-02-2011 Urinary [...] (14 sources) Long-term drug therapy; 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] Onset: 04-02-2011 02-23-2016 Episodic Other aftercare (20 sources) Patient encounter status; Translations: [Other fci (current) drug therapy] Onset: 07-11-2021 07-11-2021 Episodic [...] 14:13-0500 Body weight 73.94 kg Ren Chua 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 Work Phone: [facility] 10-27-2023 14:13-0500 Diastolic blood pressure 68 mm[Hg] Ren Benjamin 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 Work Phone: [facility] 10-27-2023 14:13-0500 Heart rate 112 /min Ren Benjamin 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 Work Phone: [facility] 10-27-2023 14:13-0500 Respiratory rate 16 /min Ren Chua 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 Work Phone: [facility] 10-27-2023 14:13-0500 Systolic blood pressure 112 mm[Hg] Ren Benjamin 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 Work Phone: [facility] 08-01-2023 13:19-0500 Body weight 77.56 kg Ren Chua 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 Work Phone: [facility] 08-01-2023 13:19-0500 Diastolic blood pressure 62 mm[Hg] Ren Benjamin 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 Work Phone: [facility] 08-01-2023 13:19-0500 Heart rate 70 /min Ren Benjamin 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 Work Phone: [facility] 08-01-2023 13:19-0500 Respiratory rate 14 /min Ren Benjamin 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 Work Phone: [facility] 08-01-2023 13:19-0500 Systolic blood pressure 118 mm[Hg] Ren Knmarilia 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 Work Phone: [facility] 05-29-2023 14:26-0400 Body temperature 98.49 [degF] Kassandra Praisler-Wood 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 Work Phone: [facility] 05-29-2023 14:26-0400 Body weight 80.74 kg Kassandra Praisler-Wood 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 Work Phone: [facility] 05-29-2023 14:26-0400 Diastolic blood pressure 66 mm[Hg] Kassandra Praisler-Wood 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 Work Phone: [facility] 05-29-2023 14:26-0400 Heart rate 85 /min Kassandra Praisler-Wood 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 Work Phone: [facility] 05-29-2023 14:26-0400 Respiratory rate 23 /min Kassandra Praisler-Wood 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 Work Phone: [facility] 05-29-2023 14:26-0400 SaO2% (BldA) [Mass fraction] 99 % Kassandra Praisler-Wood 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 Work Phone: [facility] 05-29-2023 14:26-0400 Systolic blood pressure 132 mm[Hg] Kassandra Praisler-Wood 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 Work Phone: [facility] 05-07-2023 18:57-0400 Body temperature 98.29 [degF] Vishal Jones MD Work Phone: [facility] 05-07-2023 18:57-0400 Body weight 79.83 kg Vishal Jones MD Work Phone: [facility] 05-07-2023 18:57-0400 Diastolic blood pressure 72 mm[Hg] Vishal Jones MD Work Phone: [facility] 05-07-2023 18:57-0400 Heart rate 88 /min Vishal Jones MD Work Phone: [facility] 05-07-2023 18:57-0400 Respiratory rate 18 /min Vishal Jones MD Work Phone: [facility] 05-07-2023 18:57-0400 Systolic blood pressure 112 mm[Hg] Vishal Jones MD Work Phone: [facility] 04-01-2023 10:02-0400 Body temperature 97.81 [degF] Sam Greenberg DO Work Phone: [facility] 04-01-2023 10:02-0400 Body weight 82.56 kg Sam Greenberg DO Work Phone: [facility] 04-01-2023 10:02-0400 Diastolic blood pressure 91 mm[Hg] Sam Leei DO Work Phone: [facility] 04-01-2023 10:02-0400 Heart rate 92 /min Sam Leei DO Work Phone: [facility] 04-01-2023 10:02-0400 SaO2% (BldA) [Mass fraction] 97 % Sam Greenberg DO Work Phone: [facility] 04-01-2023 10:02-0400 Systolic blood pressure 154 mm[Hg] Sam Greenberg DO Work Phone: [facility] 03-27-2023 10:32-0400 Diastolic blood pressure 66 mm[Hg] Vishal Jones MD Work Phone: [facility] 03-27-2023 10:32-0400 Systolic blood pressure 132 mm[Hg] Vishal Jones MD Work Phone: [facility] 03-27-2023 09:55-0400 Body weight 83.92 kg Vishal Jones MD Work Phone: [facility] 03-27-2023 09:55-0400 Heart rate 91 /min Vishal Jones MD Work Phone: [facility] 03-27-2023 09:55-0400 Respiratory rate 18 /min Vishal Jones MD Work Phone: [facility] 03-27-2023 09:55-0400 SaO2% (BldA) [Mass fraction] 96 % Vishal Jones MD Work Phone: [facility] 01-15-2023 09:27-0400 Body temperature 98.01 [degF] Clement Werner MD, MD Work Phone: [facility] 01-15-2023 09:27-0400 Body weight 81.19 kg Clement Werner MD, MD Work Phone: [facility] 01-15-2023 09:27-0400 Diastolic blood pressure 81 mm[Hg] Clement Werner MD, MD Work Phone: [facility] 01-15-2023 09:27-0400 Heart rate 89 /min Clement Werner MD, MD Work Phone: [facility] 01-15-2023 09:27-0400 Respiratory rate 16 /min Clement Werner MD, MD Work Phone: [facility] 01-15-2023 09:27-0400 SaO2% (BldA) [Mass fraction] 97 % Clement Werner MD, MD Work Phone: [facility] 01-15-2023 09:27-0400 Systolic blood pressure 147 mm[Hg] Clement Werner MD, MD Work Phone: [facility] 01-01-2023 18:26-0400 Body weight 82.1 kg Vishal Jones MD Work Phone: [facility] 01-01-2023 18:26-0400 Diastolic blood pressure 76 mm[Hg] Vishal Jones MD Work Phone: [facility] 01-01-2023 18:26-0400 Heart rate 82 /min Vishal Jones MD Work Phone: [facility] 01-01-2023 18:26-0400 Respiratory rate 16 /min Vishal Jones MD Work Phone: [facility] 01-01-2023 18:26-0400 Systolic blood pressure 138 mm[Hg] Vishal Jones MD Work Phone: [facility] 12-20-2022 09:59-0400 Body temperature 98.6 [degF] Clement Werner MD, MD Work Phone: [facility] 12-20-2022 09:59-0400 Body weight 83.92 kg Clement Werner MD, MD Work Phone: [facility] 12-20-2022 09:59-0400 Diastolic blood pressure 72 mm[Hg] Clement Werner MD, MD Work Phone: [facility] 12-20-2022 09:59-0400 Heart rate 102 /min Clement Werner MD, MD Work Phone: [facility] 12-20-2022 09:59-0400 Respiratory rate 20 /min Clement Werner MD, MD Work Phone: [facility] 12-20-2022 09:59-0400 SaO2% (BldA) [Mass fraction] 98 % Clement Werner MD, MD Work Phone: [facility] 12-20-2022 09:59-0400 Systolic blood pressure 148 mm[Hg] Clement Werner MD, MD Work Phone: [facility] 11-15-2022 09:16-0500 Body weight 81.19 kg Vishal Jones MD Work Phone: [facility] 11-15-2022 09:16-0500 Diastolic blood pressure 60 mm[Hg] Vishal Jones MD Work Phone: [facility] 11-15-2022 09:16-0500 Heart rate 68 /min Vishal Jones MD Work Phone: [facility] 11-15-2022 09:16-0500 Systolic blood pressure 126 mm[Hg] Vishal Jones MD Work Phone: [facility] 10-21-2022 13:55-0500 Body temperature 99.5 [degF] Mikhail Liu Jr., MD Work Phone: [facility] 10-21-2022 13:55-0500 Body weight 79.11 kg Mikhail Liu Jr., MD Work Phone: [facility] 10-21-2022 13:55-0500 Diastolic blood pressure 64 mm[Hg] Mikhail Liu Jr., MD Work Phone: [facility] 10-21-2022 13:55-0500 Heart rate 87 /min Mikhail Liu Jr., MD Work Phone: [facility] 10-21-2022 13:55-0500 Respiratory rate 16 /min Mikhail Liu Jr., MD Work Phone: [facility] 10-21-2022 13:55-0500 SaO2% (BldA) [Mass fraction] 95 % Mikhail Liu Jr., MD Work Phone: [facility] 10-21-2022 13:55-0500 Systolic blood pressure 110 mm[Hg] Mikhail Liu Jr., MD Work Phone: [facility] 10-09-2022 15:04-0500 Body temperature 99.5 [degF] Vishal Jones MD Work Phone: [facility] 10-09-2022 15:04-0500 Body weight 80.29 kg Vishal Jones MD Work Phone: [facility] 10-09-2022 15:04-0500 Diastolic blood pressure 82 mm[Hg] Vishal Jones MD Work Phone: [facility] 10-09-2022 15:04-0500 Heart rate 88 /min Vishal Jones MD Work Phone: [facility] 10-09-2022 15:04-0500 Respiratory rate 16 /min Vishal Jones MD Work Phone: [facility] 10-09-2022 15:04-0500 Systolic blood pressure 142 mm[Hg] Vishal Jones MD Work Phone: [facility] 09-25-2022 13:23-0500 Body weight 80.74 kg Vishal Jones MD Work Phone: [facility] 09-25-2022 13:23-0500 Diastolic blood pressure 72 mm[Hg] Vishal Jones MD Work Phone: [facility] 09-25-2022 13:23-0500 Respiratory rate 18 /min Vishal Jones MD Work Phone: [facility] 09-25-2022 13:23-0500 Systolic blood pressure 136 mm[Hg] Vishal Jones MD Work Phone: [facility] 09-23-2022 10:14-0500 Body height 167.6 cm BRITTNEE Gonzalez MD Work Phone: [facility] 09-23-2022 10:14-0500 Body weight 79.38 kg BRITTNEE Gonzalez MD Work Phone: [facility] 09-23-2022 10:14-0500 Diastolic blood pressure 58 mm[Hg] BRITTNEE Gonzalez MD Work Phone: [facility] 09-23-2022 10:14-0500 Heart rate 114 /min BRITTNEE Gonzalez MD Work Phone: [facility] 09-23-2022 10:14-0500 Systolic blood pressure 116 mm[Hg] BRITTNEE Gonzalez MD Work Phone: [facility] 08-19-2022 15:27-0500 Body temperature 98.1 [degF] Mikhail Liu Jr., MD Work Phone: [facility] 08-19-2022 15:27-0500 Body weight 78.47 kg Mikhail Liu Jr., MD Work Phone: [facility] 08-19-2022 15:27-0500 Diastolic blood pressure 70 mm[Hg] Mikhail Liu Jr., MD Work Phone: [facility] 08-19-2022 15:27-0500 Heart rate 83 /min Mikhail Liu Jr., MD Work Phone: [facility] 08-19-2022 15:27-0500 Respiratory rate 18 /min Mikhail Liu Jr., MD Work Phone: [facility] 08-19-2022 15:27-0500 SaO2% (BldA) [Mass fraction] 96 % Mikhail Liu Jr., MD Work Phone: [facility] 08-19-2022 15:27-0500 Systolic blood pressure 112 mm[Hg] Mikhail Liu Jr., MD Work Phone: [facility] 07-24-2022 15:03-0500 Body temperature 99.5 [degF] Vishal Jones MD Work Phone: [facility] 07-24-2022 15:03-0500 Body weight 77.56 kg Vishal Jones MD Work Phone: [facility] 07-24-2022 15:03-0500 Diastolic blood pressure 72 mm[Hg] Vishal Jones MD Work Phone: [facility] 07-24-2022 15:03-0500 Heart rate 72 /min Vishal Jones MD Work Phone: [facility] 07-24-2022 15:03-0500 Respiratory rate 18 /min Vishal Jones MD Work Phone: [facility] 07-24-2022 15:03-0500 Systolic blood pressure 130 mm[Hg] Vishal Jones MD Work Phone: [facility] 07-15-2022 12:08-0400 Body temperature 100.71 [degF] Rebecca Rossi APRN.ENGRAVING OPERATOR Work Phone: [facility] 07-15-2022 12:08-0400 Body weight 75.75 kg Rebceca Rossi APRN.ENGRAVING OPERATOR Work Phone: [facility] 07-15-2022 12:08-0400 Diastolic blood pressure 86 mm[Hg] Rebecca Rossi APRN.ENGRAVING OPERATOR Work Phone: [facility] 07-15-2022 12:08-0400 Heart rate 120 /min Rebecca Rossi APRN.ENGRAVING OPERATOR Work Phone: [facility] 07-15-2022 12:08-0400 Respiratory rate 20 /min Rebecca Rossi APRN.ENGRAVING OPERATOR Work Phone: [facility] 07-15-2022 12:08-0400 SaO2% (BldA) [Mass fraction] 96 % Rebecca Rossi APRN.ENGRAVING OPERATOR Work Phone: [facility] 07-15-2022 12:08-0400 Systolic blood pressure 142 mm[Hg] Rebecca Rossi APRN.CNP Work Phone: [facility] 05-15-2022 09:50-0400 Body weight 78.02 kg Vishal Jones MD Work Phone: [facility] 05-15-2022 09:50-0400 Diastolic blood pressure 70 mm[Hg] Vishal Jones MD Work Phone: [facility] 05-15-2022 09:50-0400 Heart rate 68 /min Vishal Jones MD Work Phone: [facility] 05-15-2022 09:50-0400 Respiratory rate 14 /min Vishal Jones MD Work Phone: [facility] 05-15-2022 09:50-0400 Systolic blood pressure 120 mm[Hg] Vishal Jones MD Work Phone: [facility] 03-26-2022 08:42-0400 Body height 169.5 cm Kaye Oneal DO Work Phone: [facility] 03-26-2022 08:42-0400 Body weight 77.56 kg Kaye Oneal DO Work Phone: [facility] 03-26-2022 08:42-0400 Diastolic blood pressure 71 mm[Hg] Kaye Oneal DO Work Phone: [facility] 03-26-2022 08:42-0400 Heart rate 82 /min Kaye Oneal DO Work Phone: [facility] 03-26-2022 08:42-0400 SaO2% (BldA) [Mass fraction] 98 % Kaye Oneal DO Work Phone: [facility] 03-26-2022 08:42-0400 Systolic blood pressure 132 mm[Hg] Kaye Oneal DO Work Phone: [facility] 03-25-2022 09:33-0400 Body weight 77.47 kg BRITTNEE Gonzalez MD Work Phone: [facility] 03-25-2022 09:33-0400 Diastolic blood pressure 60 mm[Hg] BRITTNEE Gonzalez MD Work Phone: [facility] 03-25-2022 09:33-0400 Heart rate 70 /min BRITTNEE Gonzalez MD Work Phone: [facility] 03-25-2022 09:33-0400 SaO2% (BldA) [Mass fraction] 98 % BRITTNEE Gonzalez MD Work Phone: [facility] 03-25-2022 09:33-0400 Systolic blood pressure 108 mm[Hg] BRITTNEE Gonzalez MD Work Phone: [facility] 03-21-2022 08:16-0400 Body temperature 98.91 [degF] Cloverdale Marshall 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 Work Phone: [facility] 03-21-2022 08:16-0400 Body weight 79.61 kg [place] Marshall 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 Work Phone: [facility] 03-21-2022 08:16-0400 Diastolic blood pressure 70 mm[Hg] Tameka Marshall 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 Work Phone: [facility] 03-21-2022 08:16-0400 Heart rate 81 /min Tameka Marshall 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 Work Phone: [facility] 03-21-2022 08:16-0400 Systolic blood pressure 132 mm[Hg] [place] Marshall 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 Work Phone: [facility] 12-14-2021 09:09-0400 Body temperature 97.9 [degF] Sharda WALLIS-C Work Phone: [facility] 12-14-2021 09:09-0400 Body weight 78.93 kg Sharda WALLIS-C Work Phone: [facility] 12-14-2021 09:09-0400 Diastolic blood pressure 62 mm[Hg] Sharda WALLIS-C Work Phone: [facility] 12-14-2021 09:09-0400 Heart rate 80 /min Sharda WALLIS-C Work Phone: [facility] 12-14-2021 09:09-0400 Respiratory rate 18 /min Sharda Carl PA-C Work Phone: [facility] 12-14-2021 09:09-0400 Systolic blood pressure 110 mm[Hg] Sharda Carl PA-C Work Phone: [facility] 12-08-2021 08:53-0400 Body weight 78.93 kg Vishal Jones MD Work Phone: [facility] 12-08-2021 08:53-0400 Diastolic blood pressure 66 mm[Hg] Vishal Jones MD Work Phone: [facility] 12-08-2021 08:53-0400 Heart rate 78 /min Vishal Jones MD Work Phone: [facility] 12-08-2021 08:53-0400 Respiratory rate 14 /min Vishal Jones MD Work Phone: [facility] 12-08-2021 08:53-0400 Systolic blood pressure 132 mm[Hg] Vishal Jones MD Work Phone: [facility] 08-05-2017 13:14-0500 BMI (Body Mass Index) 26.31 kg/m2 Marcelacullen Villa [facility] Work Phone: 08-05-2017 13:14-0500 Body weight 76.2 kg Nikolay Allen [facility] Work Phone: 08-05-2017 13:14-0500 BP Diastolic 58 mm[Hg] Nikolay Allen [facility] Work Phone: 08-05-2017 13:14-0500 BP Systolic 104 mm[Hg] Nikolay Allen [facility] Work Phone: 08-05-2017 13:14-0500 Height 170.18 cm Nikolay Allen [facility] Work Phone: 08-05-2017 13:14-0500 Pulse (Heart Rate) 72 /min [facility] Work Phone: 08-05-2017 13:14-0500 Respiratory Rate 20 /min [facility] Work Phone: 08-05-2017 13:14-0500 Weight 76.2 kg [facility]ay [facility] Work Phone: 01-28-2017 10:26-0400 Body height 170.18 cm Ann-Marie Fox Work Phone: [facility] Work Phone: 01-28-2017 10:26-0400 Body mass index (BMI) [Ratio] 26.54 kg/m2 Ann-Marie Fox Work Phone: [facility] Work Phone: 01-28-2017 10:26-0400 Body weight 76.89 kg Ann-Marie Fox Work Phone: [facility] Work Phone: 01-28-2017 10:26-0400 Diastolic blood pressure 50 mm[Hg] Ann-Marie Fox Work Phone: [facility] Work Phone: 01-28-2017 10:26-0400 Heart rate 64 /min Ann-Marie Fox Work Phone: [facility] Work Phone: 01-28-2017 10:26-0400 Respiratory rate 20 /min Ann-Marie Fox Work Phone: [facility] Work Phone: 01-28-2017 10:26-0400 Systolic [...] 10:04-0500 Body weight 80.29 kg ELIE Garcia [facility] Work Phone: 07-25-2016 10:04-0500 Diastolic blood pressure 70 mm[Hg] ELIE Garcia [facility] Work Phone: 07-25-2016 10:04-0500 Heart rate 60 /min ELIE Garcia [facility] Work Phone: 07-25-2016 10:04-0500 Respiratory rate 20 /min ELIE [facility] Work Phone: 07-25-2016 10:04-0500 Systolic blood pressure 126 mm[Hg] [facility] Work [facility]: 05-18-2014 09:29-0400 Body temperature 99 [degF] ELIE [facility] Work Phone: 03-08-2014 11:48-0400 Body height 170.18 cm Angélica Roger RN [facility] Work Phone: Encounters Encounter Date Encounter Type Care Provider Facility Start: 11-07-2023 Telephone encounter Vishal Jones MD Work Phone: [facility] Procedures Date Procedure Procedure Detail Performing Clinician Start: 10-27-2023 Urnls dip stick/tabl et rgnt auto w/o microscopy Ren Chua APRN.CNP Work Phone: Start: 07-09-2023 Ct abdomen & pelvis w/contrast material Sam Greenberg DO Work Phone: Start: 07-09-2023 Ct thorax w/contrast material Sam Greenberg DO Work Phone: Start: 07-09-2023 Blood count complete auto&auto difrntl wbc [place] Marshall 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 Work Phone: Start: 03-10-2023 Ct abdomen & pelvis w/contrast material Sam Greenberg DO Work Phone: Start: 03-10-2023 Ct thorax w/contrast material Sam Greenberg DO Work Phone: Start: 12-03-[address] attenuation skull base mid-thigh Tameka Marshall 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 Work Phone: Start: 11-27-2022 Mri brain brain stem w/o contrast material Mikhail Liu MD Work Phone: Start: 11-07-2022 Ct abdomen & pelvis w/contrast material [place] Marshall 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 Work Phone: Start: 11-07-2022 Basic metabolic pane l calcium total [place] Marshall 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 Work Phone: Start: 11-07-2022 HEPATIC FUNCTION PNL Da rby Marshall 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 Work Phone: Start: 09-25-2022 [employer] COVI D-19 BIVALENT BOOSTER VACCINE, AGE 12+ YR Vishal Jones MD Work Phone: Start: 08-21-2022 Ct abdomen & pelvis w/contrast material Tameka Marshall 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 Work Phone: Start: 08-21-2022 Ct thorax w/contrast material [place] Marshall 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 Work Phone: Start: 08-21-2022 Basic metabolic pane l calcium total Tameka Marshall 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 Work Phone: Start: 08-21-2022 HEPATIC FUNCTION PNL Da rby Marshall 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 Work Phone: Start: 07-29-2022 PSA screening [facility] Start: 07-24-2022 Urnls dip stick/tabl et rgnt auto w/o microscopy Vishal Jones MD Work Phone: Start: 07-15-2022 Urnls dip stick/tabl et rgnt auto w/o microscopy Rebecca Rossi 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 Work Phone: Start: 02-26-2022 Ct abdomen & pelvis w/contrast material Tameka Marshall 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 Work Phone: Start: 02-26-2022 Ct thorax w/contrast material Tameka Marshall 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 Work Phone: Start: 02-26-2022 Basic metabolic pane l calcium total Tameka Graysonenter 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 Work Phone: Start: 09-25-2017 History of placement of stent for coronary artery disease H/O heart artery stent Vishal Jones MD Work Phone: Start: 08-05-2017 End: 08-05-2017 DRAFTER CIVIL (CAD) Tito Crane CV TECH Work Phone: Start: 08-05-2017 End: 08-05-2017 Follow Up Appt 6 months Tito Crane CV TECH Work Phone: Start: 08-05-2017 End: 08-05-2017 Dietary management education, guidance, and counseling Nikolay Villa Start: 08-05-2017 End: 08-05-2017 Documentation of current medications Nikolay Villa Start: 08-05-2017 End: 08-05-2017 DRAFTER CIVIL (CAD) Tito Crane CV TECH Work Phone: Start: 08-05-2017 End: 08-05-2017 Follow Up Appt 6 months Tito Craen CV TECH Work Phone: Start: 01-28-2017 End: 01-30-2017 *Hepatic [...] End: 02-01-2017 *Hepatic Function Panel Amrita Osorio CV TECH Work Phone: Start: 07-25-2016 End: 07-25-2016 DRAFTER CIVIL (CAD) Amrita Osorio CV TECH Work Phone: Start: 07-25-2016 End: 07-25-2016 Follow Up Appt 6 months Amrita Monahanam CV TECH Work Phone: Start: 07-25-2016 End: 02-01-2017 Lipid 1996 panel - Serum or Plasma Amrita Monahanam CV TECH Work Phone: Start: 07-25-2016 End: 07-25-2016 Documentation of current medications Angélica Roger RN Start: 07-25-2016 End: 07-25-2016 DRAFTER CIVIL (CAD) Amrita Osorio CV TECH Work Phone: Start: 07-25-2016 End: 07-25-2016 Follow Up Appt 6 months Amrita Monahanam CV TECH Work Phone: Start: 07-25-2016 End: 02-01-2017 Hepatic function 2000 panel - Serum or Plasma Amrita Osorio CV TECH Work Phone: Start: 07-25-2016 End: 02-01-2017 Lipid 1996 panel - Serum or Plasma Amrita Osorio CV TECH Work Phone: Start: 03-05-2016 End: 03-05-2016 Follow [...] PA-C Work Phone: Start: 08-28-2015 End: 08-28-2015 DRAFTER CIVIL (CAD) Connie Martin PA-C Work Phone: Start: 08-28-2015 End: 08-28-2015 Follow Up Appt 6 months Connie valle PA-C Work Phone: Start: 08-28-2015 End: 08-28-2015 DRAFTER CIVIL (CAD) Connie Martin PA-C Work Phone: Start: 08-28-2015 [...] Panel Frida Son Start: 03-09-2015 End: 08-17-2015 DRAFTER CIVIL (CAD) Earl Huntley MD Start: 03-09-2015 End: 03-10-2015 [...] End: 08-17-2015 Follow Up Appt 1 year Ealr Huntley MD Start: 03-09-2015 End: 03-10-2015 Hepatic function 2000 panel - Serum or Plasma Earl Huntley MD Start: 03-09-2015 End: 03-10-2015 Lipid 1996 panel - Serum or Plasma Earl Huntley MD Start: 09-06-2014 End: 09-06-2014 DRAFTER CIVIL (CAD) Connie Martin PA-C Work Phone: Start: 09-06-2014 End: 09-06-2014 Ecg routine ecg w/least 12 lds w/i&r Connie Martin PA-C Work Phone: Start: 09-06-2014 End: 09-06-2014 Follow Up Appt 6 months Connie valle PA-C Work Phone: Start: 09-06-2014 End: 09-06-2014 DRAFTER CIVIL (CAD) Connie Martin PA-C Work Phone: Start: 09-06-2014 [...] Detail Author Start: 07-15-2032 Urine microalbumin profile [facility] Start: 02-03-2032 Urine microalbumin profile DTAP,TDAP,TD (4 - Td or Tdap) [facility] Start: 12-02-2029 Urine microalbumin profile DTAP,TDAP,TD (3 - Td or Tdap) [facility] Start: 09-18-2026 Diabetes Screening Diabetes Screening [facility] Start: 07-09-2026 Diabetes Screening Diabetes Screening [facility] Start: 03-27-2026 DIABETES SCREEN DIABETES SCREEN [facility] Start: 03-27-2026 Diabetes Screening Diabetes Screening [facility] Start: 02-25-2026 DIABETES SCREEN DIABETES SCREEN [facility] Start: 11-07-2025 DIABETES SCREEN DIABETES SCREEN [facility] Start: 09-25-2025 DIABETES SCREEN DIABETES SCREEN [facility] Start: 08-21-2025 DIABETES SCREEN DIABETES SCREEN [facility] Start: 03-12-2025 DIABETES SCREEN DIABETES SCREEN [facility] Start: 02-26-2025 DIABETES SCREEN DIABETES SCREEN [facility] Start: 01-30-2025 DIABETES SCREEN DIABETES SCREEN [facility] Start: 12-14-2024 DIABETES SCREEN DIABETES SCREEN [facility] Start: 11-12-2024 DIABETES SCREEN DIABETES SCREEN [facility] Start: 03-27-2024 Hepatitis B surface antibody level LDL CHOLESTEROL [facility] Start: 09-25-2023 Hepatitis B surface antibody level LDL CHOLESTEROL [facility] Start: 05-16-2023 Covid-19 Vaccine () Covid-19 Vaccine () [facility] Start: 05-16-2023 Influenza vaccination [facility] Start: 03-27-2023 End: 05-27-2023 LIPID PANEL, NONFASTING [facility] Work Phone: Immunizations Immunization Date Immunization Notes Care Provider Yulia haywood 10-15-2023 COVID-19 vaccine, ag e 12+ yr, season (PFIZER-BIONTECH) Ren Chua APRN.ENGRAVING OPERATOR Work Phone: [facility] 10-15-2023 influenza (HD-IIV4) vaccine, age 65+ yr, high dose, quadrivalent, PF (FLUZONE HIGH-DOSE) Ren Chua APRN.ENGRAVING OPERATOR Work Phone: [facility] 09-25-2022 COVID-19 booster vaccine, age 12+ yr, bivalent (PFIZER-BIONTECH) Vishal Jones MD Work Phone: [facility] 07-15-2022 tetanus toxoid, redu justin diphtheria toxoid, and acellular pertussis vaccine, adsorbed Vishal Jones MD Work Phone: [facility] Work Phone: 06-14-2022 influenza, high dose seasonal, preservative-free Lab/Port Wstr Work Phone: [facility] 06-14-2022 influenza virus vacc ine, unspecified formulation Kassandra Grady 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 Work Phone: [facility] 02-02-2022 tetanus toxoid, redu justin diphtheria toxoid, and acellular pertussis vaccine, adsorbed Lab/Port [facility]str Work Phone: [facility] 07-18-2021 influenza, high-dose , quadrivalent vaccine (FLUZONE HIGH DOSE QUADRIVALENT) Vishal Jones MD Work Phone: [facility] 11-21-2020 COVID-19 vaccine, ag e 12+ yr (SHERPANDIPITY-[employer]ner[employer] TherapeuticsNTZiptr - PURPLE TOP) Vishal Jones MD Work Phone: [facility] Work Phone: 06-20-2020 zoster vaccine recombinant Vishal Jones MD Work Phone: [facility] 05-27-2020 influenza, high dose seasonal, preservative-free Vishal Jones MD Work Phone: [facility] 05-27-2020 influenza, injectabl e, quadrivalent, preservative free Vishal Jones MD Work Phone: [facility] 04-07-2020 zoster vaccine recombinant Vishal oJnes MD Work Phone: [facility] 12-03-2019 hepatitis A vaccine, adult dosage Vishal Jones MD Work Phone: [facility] 12-03-2019 tetanus toxoid, redu justin diphtheria toxoid, and acellular pertussis vaccine, adsorbed Vishal Jones MD Work Phone: [facility] 08-17-2019 pneumococcal polysaccharide vaccine, 23 valent Vishal Jones MD Work Phone: [facility] 06-15-2019 influenza, high dose seasonal, preservative-free Vishal Jones MD Work Phone: [facility] 07-30-2018 pneumococcal conjuga te vaccine, 13 valent Vishal Jones MD Work Phone: [facility] 06-30-2018 influenza, high dose seasonal, preservative-free Vishal Jones MD Work Phone: [facility] 05-29-2017 diphtheria, tetanus toxoids and acellular pertussis vaccine Vishal Jones MD Work Phone: [facility] 05-29-2017 influenza, seasonal, injectable, preservative free Vishal Jones MD Work Phone: [facility] 04-28-2016 influenza, high dose seasonal, preservative-free Vishal Jones MD Work Phone: [facility] 04-28-2016 zoster vaccine, live Vishal Jones MD Work Phone: [facility] Payers Date Payer Category Payer Medicare MEDICARE MEDICAR E A AND B [id number] 2004-Present [phone] [place] [address] Medicare [id number] 2004 Medicare MEDICARE MEDICAR E A AND B [id number] 2004-Present [phone] [place] [address] Medicare [id number] 2004 Medicare [id number] 1997 Unknown COTY ANSARI BS FEP PPO [id number] 1997-Present [phone] [address] [place] [address] PPO [id number] 1997 Unknown [facility]M [facility] BS FEP PPO [id number] 1997-Present [phone] [address] [place] [address] PPO [id number] 1997 Unknown [id number] Social History Date Type Detail Facility Start: 07-24-2017 End: 05-15-2022 Tobacco smoking status NHIS Never smoked tobacco [facility] Start: 07-24-2017 End: 05-15-2022 Tobacco use and exposure User of smokeless tobacco [facility] History of tobacco use Chews [facility] Start: 11-14-2021 End: 10-15-2023 Alcohol intake Current drinker of alcohol (finding) [facility] Start: 11-14-2021 End: 01-15-2023 Alcohol intake [facility] Work Phone: Start: 07-31-2020 History SDOH Alcohol Frequency 4 [facility] Start: 08-08-2020 History SDOH Financial 5 [facility] Start: 08-08-2020 History SDOH Food Worry 1 [facility] Start: 08-08-2020 History SDOH Transport Med 2 [facility] Start: 1940 Sex Assigned At Not on file [facility] Start: 11-16-2021 End: 08-19-2022 Exposure to SARS-CoV-2 (event) Not sure [facility] Start: 02-25-2023 Alcohol Comment OCC [facility] Start: 07-31-2020 End: 01-15-2023 Alcohol Use Disorder Identification Test - Consumption [AUDIT-C] [facility] Work Phone: How often to you hav e a drink containing alcohol? 2-3 time sa week [facility] Work Phone: Average Number of Drinks Not on file [facility] Work Phone: (I/We) worried wheth er (my/our) food would run out before (I/we) got money to buy more. Never true [facility] Work Phone: Start: 05-07-2023 Alcohol Comment drinks two shots a night [facility] Start: 1940 Sex Assigned At Male [facility] Start: 08-24-2023 Gender identity Identifies as male gender (finding) [facility] Start: 08-24-2023 Sexual orientation Heterosexual (finding) [facility] Clinical Notes 01-28-2017 to 11-08-2023 Telephone [...] due to his dementia. Lorin Salinas #: [phone]. Thank you. documented in this encounter [facility] 10-31-2023 Miscellaneous Notes Notified and verbalized understanding Madisyn Shelton Cma Please let patient know their labs show no UTI. documented in this encounter [facility] 10-31-2023 Miscellaneous Notes Spoke with the [...] Chapincito Tomlin MD documented in this encounter [facility] 10-30-2023 Note HNO ID: [id number] Author: NYLA BYRNE, office coordinator receptionist Service: Radiology Author Type: Ultra Sound Technician Type: Progress Notes Filed: 10/30/2023 15:37 Note [...] PATIENT PRESENTS WITH AN IMPLANTABLE OR ATTACHED FOOD PHOTOGRAPHER: No RADIOLOGY DEPARTMENT: MR; Exam(s) Completed: Head: Routine Brain NEUROQUANT PERIPHERAL IV DATA: Not applicable SIGNED BY: SREE Louis October 30, 2023 3:34 PM [facility] 10-30-2023 Miscellaneous Notes Spoke with patient's daughter, Rita. Given message from provider's office. She verbalizes understanding. Kiki Mas RN Left message for pt's daughter to contact office. Natalia Lopez LPN Let daughter know hip x-ray showed no fracture. documented in this encounter [facility] 10-30-2023 History of Present illness Narrative [...] PATIENT PRESENTS WITH AN IMPLANTABLE OR ATTACHED FOOD PHOTOGRAPHER: No RADIOLOGY DEPARTMENT: MR; Exam(s) Completed: Head: Routine Brain NEUROQUANT PERIPHERAL IV DATA: Not applicable SIGNED BY: Nyla Byrne office coordinator receptionist October 30, 2023 3:34 PM documented in this encounter [facility] 10-30-2023 Miscellaneous Notes Patient has been [...] Natalia Lopez LPN. documented in this encounter [facility] 10-29-2023 Note [facility] 10-28-2023 Miscellaneous Notes Spoke with Lala and she indicated that they waiting on the Virtual video but no one signed on and they never back from them to reschedule. Please contact Lala [phone] to help reschedule the social work instructor that Dr. Moya ordered. Sylvia Rossi MA [...] Tami Cotto LPN documented in this encounter [facility] 10-27-2023 Note [facility] 10-27-2023 History of Present illness Narrative [...] and hd a partial cystectomy. Colostomy care ([facility]) 09/25/[address] (HCC) 09/25/2017 Coronary artery disease involving [place] coronary artery 09/25/[address] Siddiqui [id number] DDD (degenerative disc disease), lumbar 12/14/2021 Dementia [...] on till 03/15/2018 S/P colectomy History of AK (myocardial infarction) 1993 History of prostate cancer [...] Paroxysmal atrial fibrillation (HCC) s/p colectomy 2016. 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 Any additions or changes are noted in bold/italics. Ren Chua APRN.ENGRAVING OPERATOR documented in this encounter [facility] 10-15-2023 Note [facility] 10-08-2023 Note [facility] 09-18-2023 Note [facility] 09-01-2023 Note [facility] 09-01-2023 Note [facility] 08-26-2023 Note [facility] 08-26-2023 History of Present illness Narrative Images from the original note were not included. [facility] This visit was conducted as a virtual visit. I have communicated my name and active licensure. The patient's identity and physical location were verified at the time of this visit. Either the patient or their legal environmental marketing representative has been informed of the risks and benefits of -- and alternatives to -- treatment through a remote evaluation and consents to proceed with the evaluation remotely. Date: August 26, 2023 Patient Name: Sam Hagen [facility] was asked by Dr. Liu to evaluate Sam Hagen. Our recommendations of care will be communicated by shared medical record. Reason for Evaluation/Chief complaint: dementia of unknown etiology Accompanied by: Friend (Lala) who lives with Sam. SUBJECTIVE: HPI: Mr. Sam Hagen is a 83 year old left handed male who presents to the [place] [facility] for an initial evaluation. Patient has been seen and referred by Dr. Mikhail Liu Jr. Patient has a pertinent PMHx significant for rectal cancer, H/o CAD (AK 1993; treated with PCI balloon angioplasty; no [...] place (HCC) 09/25/2017 Coronary artery disease involving [place] coronary artery 09/25/[address] Siddiqui [id number] DDD (degenerative disc disease), lumbar 12/14/2021 Dementia without behavioral disturbance ([facility]) Seeing Dr Liu Elevated hemoglobin A1c 07/30/2018 Essential hypertension 04/02/2011 Essential tremor 08/16/2019 SALAS (generalized anxiety disorder) 01/01/2023 Generalized weakness 06/18/2019 H/O heart artery stent 09/25/2017 4 stents 1993 History of DVT (deep vein thrombosis) 09/25/2017 1st clot end of Aug 2017, started on Eliquis 09/15/2017 needs to be on till 03/15/2018 S/P colectomy History of AK (myocardial infarction) 1993 History of prostate cancer [...] Paroxysmal atrial fibrillation (HCC) s/p colectomy 2016. 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 Neuro: Mental Status: [place] Cognitive Assessment (MoCA) Today MoCA was not performed. MoCA was at Dr. Liu's office: MODIFIED MOCA: Cube copy: 0/1 Clock Draw: Incorrectly places large hand. 2/3 Namin/3 Immediate Recall: 5/5 Number repeat: (Incorrect reverse (changes number) 12 Sentence repeat: 2 Serial 7s: [id number] 3/3 Similar objects (I.e. banana and orange) 10/17 Orientation: 06/24/22, Hugo, Friday, 02/18 Delayed recall: 10/20 Cranial Nerves: CN III, CN IV, CN : EOMI CN VII: Face symmetric, no ptosis or facial droop LABS/DATA: Hemoglobin A1C Date Value Ref Range Status 03/27/2023 6.0 (H) 4.3 - 5.6 % Final Comment: [place] [employer] guidelines indicate that patients with [...] which included preparing to see the patient, [id number] patient care, completing clinical documentation, obtaining and/or [...] 7:07 AM CC: Referring Physician: Mikhail Liu [id number] [facility] [address] [facility] [address] PCP: Vishal Jones [address] [place] [address] Patient Entered Data: Patient-Reported No flowsheet data [...] flowsheet data found. documented in this encounter [facility] 08-01-2023 Note [facility] 08-01-2023 History of Present illness Narrative [...] side 60-80% R side 40-60%. Consult to [facility] Bladder stone 09/25/[address] Bagley [...] and hd a partial cystectomy. Colostomy care ([facility]) 09/25/[address] ([facility]) 09/25/2017 Coronary artery disease involving [place] coronary artery 09/25/[address] Siddiqui [id number] DDD (degenerative disc disease), lumbar 12/14/2021 Dementia without behavioral disturbance ([facility]) Seeing Dr Liu Elevated hemoglobin A1c 07/30/2018 Essential hypertension 04/02/2011 Essential tremor 08/16/2019 SALAS (generalized anxiety disorder) 01/01/2023 Generalized weakness 06/18/2019 H/O heart artery stent 09/25/2017 4 stents 1993 History of DVT (deep vein thrombosis) 09/25/2017 1st clot end of Aug 2017, started on Eliquis 09/15/2017 needs to be on till 03/15/2018 S/P colectomy History of AK (myocardial infarction) 1993 History of prostate cancer seeing Dr. White Hyperlipidemia, mixed 09/25/[address] ([facility]) 06/13/2021 Living will on file at physician's [...] Paroxysmal atrial fibrillation (HCC) s/p colectomy 2016. 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 . This company may contact PCP office. Kiki Mas RN documented in this encounter [facility] 07-16-2023 Miscellaneous Notes Spoke with patient's [...] the diagnosis of dementia is ready for lemon picker. For guardianship she needs to go through the courts. I would suggest she talk with the body engineer representing her father. Patient daughter Rita calling back and she is needing help, she wants to get guardianship over her father. She said he was in the ER for an hour and Dr discharged him home. She knows father will put up a fight and not go into [facility]. She said he is still driving his car and he was charged in court today, he asked for body engineer, daughter said has continuance. Daughter said it is just getting to be more of a mess to handle. Patient daughter Rita Albert calling she had her father in [facility] ER Friday (07/11)and was released. Daughter said father has court hearing this morning for violating a restraining order, she needs note saying he has dementia. She said she may have to admit him to fci, having issues with father's girl friend concerning money and check book. Please advise documented in this encounter [facility] 07-14-2023 Note HNO ID: [id number] Author: Yeni Moore Ma Service: ? Author Type: ? Type: Progress Notes Filed: 07/14/2023 9:29 PM Note Text: Scan on 07/11/2023 10:43 PM by ProviderKvng PA-C: Consultation - Emergency Medicine [facility] 07-14-2023 History of Present illness Narrative Scan on 07/11/2023 10:43 PM by Kvng Dalal PA-C: Consultation - Emergency Medicine documented in this encounter [facility] 07-09-2023 Note [facility] 07-09-2023 History of Present illness Narrative [...] PERIPHERAL IV DATA: power port accessed by [employer] SIGNED BY: RT Arturo(Ever) July 09, 2023 4:04 PM documented in this encounter [facility] 06-30-2023 Miscellaneous Notes See TE dated 06/30/23. Olamide Verdin LPN Daughter/POARita, returned call from Dr. Liu office. Given message in previous encounter. Rita agreeable for patient to see [facility]V. States she has to do something as she doesn't want him to hurt someone or himself. Please place referral and call her to schedule appt. Today Rita can be reached at [phone] Tomorrow can be reached at [phone] documented in this encounter [facility] 06-30-2023 Miscellaneous Notes Phone call placed [...] Yaz Michaels RN documented in this encounter [facility] 06-26-2023 Miscellaneous Notes Daughter returned call [...] appt. It may be time to consider watermelon harvesting supervisor placement in a SNF with a dementia [...] Asha Frank LPN documented in this encounter [facility] 06-06-2023 Miscellaneous Notes TC to Rita, spoke briefly and notified Rita that concerns need to be addressed with Neuro. Call was dropped d/t cell campus receptionist. Regarding driving privilege's- Neuro revoked privilege's so again- Rita needs to speak with Neurology about behaviors, driving, etc. Juan Kimball LPN Please advise daughter that this questions and concerns should be addressed with Sam's neurologist. Also she should call the meat processing center manager. Per Dr. Liu's last office note Sam was informed he should not be driving. He may need admitted to local hospital for a Geripsych consult. Patient's daughter calls and states that they have taken away patient's keys so that patient could not drive. Patient found keys where they were hidden and took keys and drove off giving railroad car painter the bird stating f you and if [...] Dr. Jones can give her a call [phone]. Please review and advise, Nora Berry RN documented in this encounter [facility] 06-03-2023 Miscellaneous Notes Spoke with pt [...] daily at bedtime. documented in this encounter [facility] 05-29-2023 Note [facility] 05-29-2023 Instructions Kassandra Grady APRN.ENGRAVING OPERATOR - 05/29/2023 2:58 PM EDT ASSESSMENT/PLAN: 1. [...] FLU A/B + RSV E Bijan [employer] INCUBATOR MACHINE OPERATOR Student TEACHING PROVIDER (Physician/PA/SHIPPING ROOM SUPERVISOR) NOTE OF PERSONAL INVOLVEMENT IN CARE: I have personally seen and examined the patient and performed the medical decision-making components. I have reviewed the Advanced Practice Registered Nurse (SHIPPING ROOM SUPERVISOR) Student's documentation and verified the findings in the note as written. Any additions or changes are noted in bold/italics. Signature: Kassandra Grady Date: 05/29/2023 Time: 2:58 PM documented in this encounter [facility] 05-29-2023 History of Present illness Narrative This note was created using Get[employer]. Subjective Sam Hagen is a 83 year [...] place (HCC) 09/25/2017 Coronary artery disease involving [place] coronary artery 09/25/[address] Siddiqui [id number] DDD (degenerative disc disease), lumbar 12/14/2021 Dementia [...] on till 03/15/2018 S/P colectomy History of AK (myocardial infarction) 1993 History of prostate cancer [...] Paroxysmal atrial fibrillation (HCC) s/p colectomy 2016. 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 I have reviewed the Advanced Practice Registered Nurse (SHIPPING ROOM SUPERVISOR) Student's documentation and verified the findings in the note as written. Any additions or changes are noted in bold/italics. Signature: Kassandra Grady Date: 05/29/2023 Time: 2:58 PM documented in this encounter [facility] 05-20-2023 Note [facility] 05-20-2023 History of Present illness Narrative Patient's home health 485 form / care plan for certification period 05/08/2023 to 07/06/2023 reviewed and signed. Relevant medical records were reviewed. Changes were communicated to home health agency documented in this encounter [facility] 05-20-2023 Miscellaneous Notes Info noted. Zenaida from [facility] Home Health calling with OT plan of care, 2 visits weekly for 3 weeks working on fall prevention and balance training. This is delay of care since she had been on vacation. No return call is needed. documented in this encounter [facility] 05-16-2023 Miscellaneous Notes Peggy called and [...] User: JONNA SUN APRN.CNP Peggy calling from [facility] to report plan of care for patient and snf will visit patient 1 time a week for 3 weeks. alf will work with patient on medication management. Patient c/o burning and urine is dark. Ok to collect urine for analysis? Please review and Advise, Nora Berry RN documented in this encounter [facility] 05-13-2023 Miscellaneous Notes Opened in Error documented in this encounter [facility] 05-13-2023 Miscellaneous Notes Noted. Rosie speech therapist from [facility] HH calling with update on pt. States she will be seeing patient 1x per week for 4 weeks for family dementia education. Barbara Olivares, RN documented in this encounter [facility] 05-12-2023 Miscellaneous Notes Spoke with patient's [...] for 180 days. Decreased per hospitalist at [facility] due to acute encephalopathy felt to be from [facility] pharmacy. nitroglycerin sublingual (NITROQUICK) 0.4 mg SL tablet 25 tablet 1 Sig: Q5M Please review and advise. Shannon Gleason documented in this encounter [facility] 05-09-2023 Miscellaneous Notes Called and left detailed message on Pallavi identifiable VM with responses below from Provider. Notified Shannon that Rx has been sent to [facility]. If questions she is to call office and speak with Triage Nurse. Radha Ramirez Ma Let shannon know I'm ok with snf and sugar mill worker consults. Also I sent in a script for the lipitor. I'm hesitant to restart the atenolol. It looks like he has probably been off it for the past 6 months and his BP in the office recently was 112/72. I would want nursing to monitor and up date me in a week or two. Shannon with [facility] PT calling and requesting [facility] and Diagnostics Sales Developer orders for patient. Please call Shannon back at [phone] with reply. Shannon states she notes 3 [...] Meka Capps RN documented in this encounter [facility] 05-08-2023 Note HNO ID: [id number] Author: Yoko Osborn RN Service: ? Author Type: Registered Nurse Type: Progress Notes Filed: 05/08/2023 11:02 AM Note Text: no show. [facility] 05-08-2023 History of Present illness Narrative no show. documented in this encounter [facility] 05-07-2023 Note [facility] 05-07-2023 Instructions Vishal Jones MD - [...] day for anxiety. Patient needs to contact [facility] to virgilio a follow up appt with Niranjan Tony for his fractured elbow. Call [phone]. documented in this encounter [facility] 05-07-2023 History of Present illness Narrative Chief Complaint Patient presents with: Hospital F/U HPI Sam Hagen is a 83 year old male who presents here today for hospital follow up. Office visit - hospital follow up Patient was admitted to [facility] on 04/17/2023 after a fall. C/o [...] not to drive. Is to be getting [facility] through [facility]. Says he has not heard from [...] and hd a partial cystectomy. Colostomy care ([facility]) 09/25/[address] ([facility]) 09/25/2017 Coronary artery disease involving [place] coronary artery 09/25/[address] Siddiqui [id number] DDD (degenerative disc disease), lumbar 12/14/2021 Dementia without behavioral disturbance ([facility]) Seeing Dr Liu Elevated hemoglobin A1c 07/30/2018 Essential hypertension 04/02/2011 Essential tremor 08/16/2019 SALAS (generalized anxiety disorder) 01/01/2023 Generalized weakness 06/18/2019 H/O heart artery stent 09/25/2017 4 stents 1993 History of DVT (deep vein thrombosis) 09/25/2017 1st clot end of Aug 2017, started on Eliquis 09/15/2017 needs to be on till 03/15/2018 S/P colectomy History of AK (myocardial infarction) 1993 History of prostate cancer seeing Dr. White Hyperlipidemia, mixed 09/25/[address] ([facility]) 06/13/2021 Living will on file at physician's [...] Paroxysmal atrial fibrillation (HCC) s/p colectomy 2016. 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 Vishal Jones MD documented in this encounter [facility] 05-06-2023 Miscellaneous Notes Left detailed message for [facility] Ting. Sylvia Rossi MA Let [facility] know I will follow and sign orders. Ok with delayed start. Ting from [facility] Home Health calling received orders for PT/OT/Speech for patient. Discharged 05/05 from [facility] TCU, falls, fractured left ulna. Asking if PCP would follow patient and sign orders? Asking for delay of care verbal order due to patient having follow up appt scheduled with PCP for 05/07, can not have visit with home health same day with insurance billing. Can not start care until or Friday with the patient. Please advise documented in this encounter [facility] 04-23-2023 Note HNO ID: [id number] Author: Tika Kearney LPN Service: ? Author Type: ? Type: Progress Notes Filed: 04/23/2023 3:22 PM Note Text: Scan on 04/23/2023 11:50 AM by Kvng Dalal PA-C [facility] 04-23-2023 History of Present illness Narrative Scan on 04/23/2023 11:50 AM by Kvng Dalal PA-C documented in this encounter [facility] 04-18-2023 Note [facility] 04-18-2023 History of Present illness Narrative ER/H&P Scan on 04/17/2023 6:48 PM by Kvng Dalal PA-C: Consultation - Emergency Medicine Scan on 04/17/2023 4:09 PM by Kvng Dalal PA-C documented in this encounter [facility] 04-17-2023 Note [facility] 04-17-2023 History of Present illness Narrative Scan on 04/17/2023 11:20 AM by ProviderKvng PA-C: X-ray Scan on 04/17/2023 11:18 AM by ProviderKvng PA-C: CT Scan Scan on 04/17/2023 1:22 PM by ProviderKvng PA-C: Ultrasound Scan on 04/17/2023 11:21 AM by ProviderKvng PA-C: X-ray documented in this encounter [facility] 04-17-2023 Note [facility] 04-02-2023 Miscellaneous Notes Noted. Spoke with [...] urine looks clear? documented in this encounter [facility] 04-02-2023 Miscellaneous Notes spoke with pts. Daughter, given information. Shreya Rita Drouhard, ANALOG IC DESIGN ARCHITECT Left message on daughters Vm (unidentified VM0 [...] Please advise daughter. documented in this encounter [facility] 04-01-2023 Note [facility] 04-01-2023 History of Present illness Narrative HPI: Sam Curry Hagen is a 82 year old male who presents here today for follow up rectal cancer. H/o CAD (AK 1993; treated with PCI balloon angioplasty; no stent) and prostate cancer (tx with radiation x44 fx ~8 years ago). He presented to [facility] fall 2016 with symptoms of bowel obstruction. He underwent attempted colonoscopy but the procedure was aborted when the scope was not able to be passed through the rectum/sigmoid area. He was transferred to [facility]. He ultimately underwent a total colectomy along [...] the patient underwent total colectomy in 2017 ([id number]). Colon and Rectum Cancer Case Summary Procedure: [...] 6. Ileostomy re-creation on 08/07/[address] Gonazlez Pt. was admitted 08/05/20 Discharged 08/16/20. Post-op [...] down the thigh. 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 Denies fevers or recent illness. Resp:denies [...] which included preparing to see the patient, fopo-xa-kech patient care, completing clinical documentation, obtaining and/or reviewing separately obtained history, performing a medically appropriate examination, counseling and educating the patient/family/caregiver, ordering medications, tests, or procedures, communicating with other HCPs (not separately reported), independently interpreting results (not separately reported), and communicating results to the patient/family/caregiver. Sam Greenberg DO documented in this encounter [facility] 03-27-2023 Note [facility] 03-27-2023 Instructions Vishal Jones MD - 03/27/2023 10:45 AM EDT Let your daughter know she should go to your appt with Dr. Liu tomorrow. Also it appears Dr. Liu placed a referral to see a neurosurgeon back in November/December and it was never set up by your daughter, though not sure she was aware. documented in this encounter [facility] 03-27-2023 Miscellaneous Notes Recommend formal neuro [...] an official letter from her Dad's legal [place] with what they are specifically asking. Contacted [...] issues Please fax to Rita (daughter) at: [phone] documented in this encounter [facility] 03-27-2023 History of Present illness Narrative Medicare Yearly Visit Medical B eligibilty date 03/15/17 Date of last exam 03/14/22 PAST MEDICAL HISTORY PAST MEDICAL HISTORY Diagnosis Date A-fib ([facility]) s/p colectomy 2016. 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 Bagley BPH with obstruction/lower urinary tract symptoms BPH with obstruction/lower urinary tract symptoms Dr. 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 Greenberg, Had extension into the bladder wall and hd a partial cystectomy. Colostomy care ([facility]) 09/25/[address] ([facility]) 09/25/2017 Coronary artery disease involving [place] coronary artery 09/25/[address] Huntley-Hugo [id number] Elevated hemoglobin A1c 07/30/2018 Essential hypertension 04/02/2011 Essential tremor 08/16/2019 Generalized weakness 06/18/2019 H/O heart artery stent 09/25/2017 4 stents 1993 History of DVT (deep vein thrombosis) 09/25/2017 1st clot end of Aug 2017, started on Eliquis 09/15/2017 needs to be on till 03/15/2018 S/P colectomy History of AK (myocardial infarction) 1993 History of prostate cancer [...] Cancer Father Cancer Father skin Heart Mother AK late 50's Stroke Mother Diabetes Mother SOCIAL [...] and has been seeing Dr. Lacy's at [facility] and he wants to take him [...] follow up 11/15/2022 Patient was seen in [facility] ER on 10/31/2022 after a fall [...] History PAST MEDICAL HISTORY Diagnosis Date A-fib ([facility]) s/p colectomy 2016. 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 Greenberg, Had extension into the bladder wall and hd a partial cystectomy. Colostomy care ([facility]) 09/25/[address] (HCC) 09/25/2017 Coronary artery disease involving [place] coronary artery 09/25/[address] Siddiqui [id number] DDD (degenerative disc disease), lumbar 12/14/2021 Elevated hemoglobin A1c 07/30/2018 Essential hypertension 04/02/2011 Essential tremor 08/16/2019 SALAS (generalized anxiety disorder) 01/01/2023 Generalized weakness 06/18/2019 H/O heart artery stent 09/25/2017 4 stents 1993 History of DVT (deep vein thrombosis) 09/25/2017 1st clot end of Aug 2017, started on Eliquis 09/15/2017 needs to be on till 03/15/2018 S/P colectomy History of AK (myocardial infarction) 1993 History of prostate cancer seeing Dr. White Hyperlipidemia, mixed 09/25/[address] ([facility]) 06/13/2021 Living will on file at physician's office 09/25/2022 DPA: Roseanne Albert, (daughter) Malignant neoplasm of ascending colon ([facility]) 07/29/2017 Malignant neoplasm of sigmoid colon (HCC) 07/29/2017 Medicare annual wellness visit, subsequent 07/30/2018 Medicare part B: 03/15/2017 last done: 08/17/2019 Mixed incontinence 02/16/2020 Nerve pain 09/25/2017 Right side hip and up the spine Parastomal hernia without obstruction or gangrene Personal history of colon cancer 12/18/2020 Primary insomnia 01/02/2021 Rectal cancer ([facility]) 10/12/2019 S/P total colectomy 07/16/2017 Secondary malignant [...] Cancer Father Cancer Father skin Heart Mother AK late 50's Stroke Mother Diabetes Mother Patient [...] Lymph 1.00 - 4.00 k/uL 0.87 (L) Dougherty% % 8.7 Abs Dougherty <0.87 k/uL 0.48 Eosin% % 1.5 Abs [...] per cardio 6. Coronary artery disease involving [place] coronary artery of [place] heart without angina pectoris - ICD9: 414.01, [...] which included preparing to see the patient, nyfx-mq-hpcm patient care, completing clinical documentation, performing a medically appropriate examination, counseling and educating the patient/family/caregiver and ordering medications, tests, or procedures. Vishal Jones MD documented in this encounter [facility] 03-10-2023 Note [facility] 03-10-2023 History of Present illness Narrative [...] PERIPHERAL IV DATA: power port accessed by [employer] SIGNED BY: RT Arturo(R) March 10, 2023 1:49 PM documented in this encounter [facility] 03-10-2023 Note [facility] 03-10-2023 History of Present illness Narrative Patient is here for IVAD port flush per [facility] protocol. IVAD is located in right upper chest. Site cleansed with Chloraprep IVAD accessed with a #20 gauge 3/4 non-coring Gripper needle Blood Return: Good Flushed with: 20 ml Normal Saline Non-coring needle left intact for CT. Opsite applied to puncture site. Port site negative for redness, edema or tenderness. Patient tolerated procedure well. documented in this encounter [facility] 02-25-2023 Note [facility] 02-21-2023 Miscellaneous Notes Spoke with patient and rescheduled as requested. Planning to move Dr. Greenberg's 8:30 pt. on 02/25 to in at 8a.m. on 02/26. Sam will then be put in the [address] Greenberg's schedule at 8:30 on 02/25. Spoke with Fany regarding the above. Tameka Marshall APRN.ENGRAVING OPERATOR Dr Alphonso English wanted you to know that Sam is done with radiation and he will need follow up appointment with you. documented in this encounter [facility] 02-19-2023 Note [facility] 01-28-2023 Note HNO ID: [id number] Author: Natalia Lopez LPN Service: ? Author Type: ? Type: Progress Notes Filed: 01/28/2023 11:23 AM Note Text: Scan on 01/28/2023 9:41 AM by External Provider, PARuthannC: Consultation - Cardiology [facility] 01-23-2023 Note [facility] 01-23-2023 History of Present illness Narrative SAM HAGEN [id number] : 1940 01/23/2023 [facility] Department of Radiation Oncology RADIATION ONCOLOGY [...] PM Electronically Signed cc: Vishal Jones [address] [place] [address] Sam Greenberg [address] [facility] [address] documented in this encounter [facility] 01-15-2023 Note [facility] 01-15-2023 History of Present illness Narrative [...] Clement Werner MD documented in this encounter [facility] 01-15-2023 Nurse Note Radiation Therapy - Nursing Note (OTV) PATIENT NAME: Sam Hagen PATIENT January 15, 2023 [facility] FACILITY/LOCATION: [facility] NURSING NOTE TYPE: left iliac node Subjective Data No c/o Additional Data Do you want to see a Supervisor Felling Bucking? No Status: Patient is male Stress Scale: [...] Nikole Lamb RN documented in this encounter [facility] 01-02-2023 Miscellaneous Notes TC placed to [...] 2023 7:37 PM documented in this encounter [facility] 01-01-2023 Note [facility] 01-01-2023 History of Present illness Narrative [...] and has been seeing Dr. Lacy's at [facility] and he wants to take him [...] follow up 11/15/2022 Patient was seen in [facility] ER on 10/31/2022 after a fall [...] History PAST MEDICAL HISTORY Diagnosis Date A-fib ([facility]) s/p colectomy 2016. 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 Greenberg, Had extension into the bladder wall and hd a partial cystectomy. Colostomy care ([facility]) 09/25/[address] ([facility]) 09/25/2017 Coronary artery disease involving [place] coronary artery 09/25/[address] Huntley-Hugo [id number] DDD (degenerative disc disease), lumbar 12/14/2021 Elevated hemoglobin A1c 07/30/2018 Essential hypertension 04/02/2011 Essential tremor 08/16/2019 Generalized weakness 06/18/2019 H/O heart artery stent 09/25/2017 4 stents 1993 History of DVT (deep vein thrombosis) 09/25/2017 1st clot end of Aug 2017, started on Eliquis 09/15/2017 needs to be on till 03/15/2018 S/P colectomy History of AK (myocardial infarction) 1993 History of prostate cancer seeing Dr. White Hyperlipidemia, mixed 09/25/[address] ([facility]) 06/13/2021 Living will on file at physician's office 09/25/2022 DPA: Roseanne Albert, (daughter) Malignant neoplasm of ascending colon ([facility]) 07/29/2017 Malignant neoplasm of sigmoid colon ([facility]) 07/29/2017 Medicare annual wellness visit, subsequent 07/30/2018 [...] Cancer Father Cancer Father skin Heart Mother AK late 50's Stroke Mother Diabetes Mother Patient [...] References: 1. Folstein MF, Folstein SE, [place]. Mini-Mental State: a practical method for grading [...] in patients with probable Alzheimer's disease. Neurology. 1992;42:3660-2461. Geriatric Depression score: abnormal at 7 Lai's [...] which included preparing to see the patient, srfd-yc-awrj patient care, completing clinical documentation, performing a medically appropriate examination, counseling and educating the patient/family/caregiver and ordering medications, tests, or procedures. Vishal Jones MD documented in this encounter [facility] 12-30-2022 Note [facility] 12-30-2022 Nurse Note Radiation Therapy - Patient Education Note PATIENT NAME: Sam Hagen PATIENT December 30, 2022 [facility] FACILITY/LOCATION: [facility] READINESS TO LEARN Cognitive Ability: Alert and [...] handouts on Department phone list, Fatigue, and [facility] instructions, XRT sheet and Aquaphor handout. Referral (recommendation): None, Pt denied need for social work, van service, and color shop helper. Was approved? unknown Signed by: Nikole Lamb RN documented in this encounter [facility] 12-24-2022 Miscellaneous Notes Spoke to daughter [...] at work. Daughter requesting return call on [phone] Jones's office. Outcome: Informed daughter that I would send communication to Dr. Jones's office with her request. Reason for Disposition [1] Caller is not with the adult (patient) AND [2] probable NON-URGENT symptoms Protocols used: Information Only Call - No [id number] documented in this encounter [facility] 12-20-2022 Note [facility] 12-20-2022 Nurse Note Radiation Therapy - Nursing Note (Consult) PATIENT NAME: Sam Hagen PATIENT December 20, 2022 [facility] FACILITY/LOCATION: [facility] Chief Complaint: Metastatic colon cancer Reason for visit: Consult. Referring physician: Internal provider Dr Greenberg Subjective Data: has spinal stenosis that is causing issues with pain- right low back and down leg, along with neuropathy Additional Data Do you want to see a Supervisor Felling Bucking? No Are you interested in information about fertility? No Status: Patient is male Stress Scale: On a scale of 0 to 10, what number best describes how much distress you have experienced in the past week?(0 being no distress and 10 being extreme distress) 8 Social work notified: Pt denied need to see social work instructor at this time. SIGNED by: Marion Greenberg RN documented in this encounter [facility] 12-20-2022 History of Present illness Narrative [...] of prostate cancer diagnosed in 2005 with [place] score 6 (3+3), PSA 12 and clinical [...] Allergies PAST MEDICAL HISTORY Diagnosis Date A-fib ([facility]) s/p colectomy 2016. 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 Greenberg, Had extension into the bladder wall and hd a partial cystectomy. Colostomy care ([facility]) 09/25/[address] ([facility]) 09/25/2017 Coronary artery disease involving [place] coronary artery 09/25/[address] Siddiqui [id number] DDD (degenerative disc disease), lumbar 12/14/2021 Elevated hemoglobin A1c 07/30/2018 Essential hypertension 04/02/2011 Essential tremor 08/16/2019 Generalized weakness 06/18/2019 H/O heart artery stent 09/25/2017 4 stents 1993 History of DVT (deep vein thrombosis) 09/25/2017 1st clot end of Aug 2017, started on Eliquis 09/15/2017 needs to be on till 03/15/2018 S/P colectomy History of AK (myocardial infarction) 1993 History of prostate cancer seeing Dr. White Hyperlipidemia, mixed 09/25/[address] ([facility]) 06/13/2021 Living will on file at physician's office 09/25/2022 DPA: Roseanne Albert, (daughter) Malignant neoplasm of ascending colon ([facility]) 07/29/2017 Malignant neoplasm of sigmoid colon ([facility]) 07/29/2017 Medicare annual wellness visit, subsequent 07/30/2018 [...] Cancer Father Cancer Father skin Heart Mother AK late 50's Stroke Mother Diabetes Mother Social [...] that other personnel such as radiation therapists, traffic recorder, and physicists will participate in planning and delivery of radiation treatment. Permanent tattoo null will be placed to aid with positioning for daily treatment and the patient consented. Patient will have a simulation procedure within a week. Thank you very much for allowing us to participate in his care. Signed by: Clement Werner MD cc: Vishal Jones [address] [place] [address] Sam Greenberg [address] [facility] [address] documented in this encounter [facility] 12-18-2022 Note HNO ID: [id number] Author: Sylvia Rossi MA Service: ? Author Type: Block And Case Maker Type: Progress Notes Filed: 12/18/2022 3:14 PM Note Text: Scan on 12/12/2022 7:23 PM by External Provider: X-ray Sylvia Rossi MA [facility] 12-18-2022 History of Present illness Narrative Scan on 12/12/2022 7:23 PM by External Provider: X-ray Sylvia Rsosi MA documented in this encounter [facility] 12-06-2022 Miscellaneous Notes I spoke with pt's daughter. Her concern is that pt has ankle bractlet on for home arrest thru [facility] and is wondering if we can do [...] and daughter agree. Thank you. Tameka Marshall APRN.ENGRAVING OPERATOR Patient's daughter, Rita, called to get the results of PET Scan. Please advise. Nora Mansfield documented in this encounter [facility] 12-03-2022 History of Present illness Narrative [...] AM PAGER/CONTACT #: documented in this encounter [facility] 11-28-2022 Miscellaneous Notes 1st attempt unable to leave a message with patient, to return call to schedule consult with Spine Surgery. Please transfer patient to [phone] as they will need to speak with [...] Karuna Cannon LPN documented in this encounter [facility] 11-27-2022 Note [facility] 11-27-2022 History of Present illness Narrative [...] 2022 11:24 AM documented in this encounter [facility] 11-20-2022 Miscellaneous Notes TC to Rita to inform of below. A letter from Dr. Liu was signed and faxed to public employment mediator Nora Ott on October 11 as requested by the family for patient to ankle bracelet removed to have scans completed. (Please see TE 10/01/22). At this point, family needs to contact [facility]'s department or public employment mediator's office to clarify what is needed as letter has already been faxed as requested. BETY Putnam Spoke with [facility] dept, they instructed pt. To reschedule MRI. Shreya Villalta LPN message left on daughters work and mobile number . Contacted [facility] dept. Concerning pts. Ankle bracelet, also telephone note sent to inDr. Liu(ordering physician of MRI) that [facility] dept. Needed fax requesting that monitor be removed for procedure (mri) Fax letter to [phone]. Then spoke with Daughter Rita she stated [...] you. Tameka Marshall APRN.SOULEYMANE Please call daughter [phone] after 4 pm or [phone] before 4 pm. Patient's daughter Rita was [...] Sylvia Rossi MA documented in this encounter [facility] 11-15-2022 Note [facility] 11-15-2022 History of Present illness Narrative Chief Complaint Patient presents with: ED Follow-up HPI Sam Hagen is a 82 year old male who presents here today for ER Follow Up.. Patient was seen in [facility] ER on 10/31/2022 after a fall [...] History PAST MEDICAL HISTORY Diagnosis Date A-fib ([facility]) s/p colectomy 2016. 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 Greenberg, Had extension into the bladder wall and hd a partial cystectomy. Colostomy care ([facility]) 09/25/[address] ([facility]) 09/25/2017 Coronary artery disease involving [place] coronary artery 09/25/[address] Siddiqui [id number] DDD (degenerative disc disease), lumbar 12/14/2021 Elevated hemoglobin A1c 07/30/2018 Essential hypertension 04/02/2011 Essential tremor 08/16/2019 Generalized weakness 06/18/2019 H/O heart artery stent 09/25/2017 4 stents 1993 History of DVT (deep vein thrombosis) 09/25/2017 1st clot end of Aug 2017, started on Eliquis 09/15/2017 needs to be on till 03/15/2018 S/P colectomy History of AK (myocardial infarction) 1993 History of prostate cancer [...] Cancer Father Cancer Father skin Heart Mother AK late 50's Stroke Mother Diabetes Mother Patient [...] Vishal Jones MD documented in this encounter [facility] 11-14-2022 Note [facility] 11-14-2022 Note HNO ID: [id number] Author: Shreya Villalta LPN Service: ? Author Type: LICENSED NURSE Type: Progress Notes Filed: 11/15/2022 2:24 PM Note Text: Est. Pt. , discuss recent labs 11/07 [facility] 11-08-2022 Miscellaneous Notes Patient's daughter notified [...] letter to patient's daughter if possible at [phone] or call her on her cell or work number at [phone] if more information Is required. documented in this encounter [facility] 11-07-2022 Note [facility] 11-07-2022 Note [facility] 11-07-2022 History of Present illness [...] TIME: 4:16 PM documented in this encounter [facility] 11-07-2022 History of Present illness Narrative Patient is here for IVAD port flush/blood draw per [facility] protocol. IVAD is located in left upper [...] tolerated procedure well. documented in this encounter [facility] 11-01-2022 Note [facility] 11-01-2022 History of Present illness Narrative [...] Sylvia Rossi MA documented in this encounter [facility] 10-28-2022 Miscellaneous Notes Patient has been [...] Brenda Najera Pss documented in this encounter [facility] 10-21-2022 History of Present illness Narrative [...] Diagnosis Date A-fib (HCC) s/p colectomy 2016. 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 Greenberg, Had extension into the bladder wall and hd a partial cystectomy. Colostomy care ([facility]) 09/25/[address] ([facility]) 09/25/2017 Coronary artery disease involving [place] coronary artery 09/25/[address] Siddiqui [id number] DDD (degenerative disc disease), lumbar 12/14/2021 Elevated hemoglobin A1c 07/30/2018 Essential hypertension 04/02/2011 Essential tremor 08/16/2019 Generalized weakness 06/18/2019 H/O heart artery stent 09/25/2017 4 stents 1993 History of DVT (deep vein thrombosis) 09/25/2017 1st clot end of Aug 2017, started on Eliquis 09/15/2017 needs to be on till 03/15/2018 S/P colectomy History of AK (myocardial infarction) 1993 History of prostate cancer seeing Dr. White Hyperlipidemia, mixed 09/25/[address] ([facility]) 06/13/2021 Living will on file at physician's office 09/25/2022 DPA: Roseanne Albert, (daughter) Malignant neoplasm of ascending colon ([facility]) 07/29/2017 Malignant neoplasm of sigmoid colon ([facility]) 07/29/2017 Medicare annual wellness visit, subsequent 07/30/2018 [...] Cancer Father Cancer Father skin Heart Mother AK late 50's Stroke Mother Diabetes Mother SOCIAL [...] which included preparing to see the patient, [id number] patient care, completing clinical documentation, obtaining and/or reviewing separately obtained history, performing a medically appropriate examination, and counseling and educating the patient/family/caregiver. documented in this encounter [facility] 10-11-2022 Miscellaneous Notes Signed letter faxed to numbers provided below as requested. BETY Putnam TC to [place] to clarify what needs to be documented in the letter for patient to receive MRI. Cora stated the GPS bracelet needs to be removed for the patient to complete an MRI and that the MRI is necessary for the patients help based on the Drs recommendation. The letter can then be faxed to the public employment mediator below. Please advise. Thank you. BETY Putnam Please reach out to the number attached and clarify what is needed. Thank you, Mikhail Liu MD Received telephone call from [facility] Cora. Param stated patient unable to complete [...] is written fax letter to patient's public employment mediator Nora Ott. Nora's fax: [phone] ATTN: Nora Ott Please review & advise. [...] Mikhail Liu MD documented in this encounter [facility] 10-09-2022 History of Present illness Narrative [...] History PAST MEDICAL HISTORY Diagnosis Date A-fib ([facility]) s/p colectomy 2016. 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 Greenberg, Had extension into the bladder wall and hd a partial cystectomy. Colostomy care ([facility]) 09/25/[address] ([facility]) 09/25/2017 Coronary artery disease involving [place] coronary artery 09/25/[address] Siddiqui [id number] DDD (degenerative disc disease), lumbar 12/14/2021 Elevated hemoglobin A1c 07/30/2018 Essential hypertension 04/02/2011 Essential tremor 08/16/2019 Generalized weakness 06/18/2019 H/O heart artery stent 09/25/2017 4 stents 1993 History of DVT (deep vein thrombosis) 09/25/2017 1st clot end of Aug 2017, started on Eliquis 09/15/2017 needs to be on till 03/15/2018 S/P colectomy History of AK (myocardial infarction) 1993 History of prostate cancer seeing Dr. White Hyperlipidemia, mixed 09/25/[address] ([facility]) 06/13/2021 Living will on file at physician's office 09/25/2022 DPA: Roseanne Albert, (daughter) Malignant neoplasm of ascending colon ([facility]) 07/29/2017 Malignant neoplasm of sigmoid colon (HCC) [...] Cancer Father Cancer Father skin Heart Mother AK late 50's Stroke Mother Diabetes Mother Patient [...] Vishal Jones MD documented in this encounter [facility] 10-09-2022 Miscellaneous Notes Patient came in [...] CBC/BMP/LFT's/CEA after above. Thank you. Tameka Marshall APRN.ENGRAVING OPERATOR documented in this encounter [facility] 09-30-2022 Miscellaneous Notes The following approved [...] repeat. Order placed. documented in this encounter [facility] 09-25-2022 History of Present illness Narrative [...] in the PM. Seeing Dr. [facility] at [facility]. Seeing Dr. Krause in vascular and Dr. Liu in neurology. Past medical history, appointments, medications, allergies reviewed. Previous Medical History PAST MEDICAL HISTORY Diagnosis Date A-fib (HCC) s/p colectomy 2016. 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 Colostomy care ([facility]) 09/25/[address] ([facility]) 09/25/2017 Coronary artery disease involving [place] coronary artery 09/25/[address] Siddiqui [id number] Elevated hemoglobin A1c 07/30/2018 Essential hypertension 04/02/2011 Essential tremor 08/16/2019 Generalized weakness 06/18/2019 H/O heart artery stent 09/25/2017 4 stents 1993 History of DVT (deep vein thrombosis) 09/25/2017 1st clot end of Aug 2017, started on Eliquis 09/15/2017 needs to be on till 03/15/2018 S/P colectomy History of AK (myocardial infarction) 1993 History of prostate cancer [...] Cancer Father Cancer Father skin Heart Mother AK late 50's Stroke Mother Diabetes Mother Patient [...] Abs Lymph 1.00 - 4.00 k/uL 1.00 Dougherty% % 8.6 Abs Dougherty <0.87 k/uL 0.68 Eosin% % 1.4 Abs [...] check A1c 4. Coronary artery disease involving [place] coronary artery of [place] heart without angina pectoris - ICD9: 414.01, [...] Vishal Jones MD documented in this encounter [facility] 09-23-2022 History of Present illness Narrative Images from the original note were not included. Brittny Gonzalez MD General Surgery [address] [place] [address], [address] [place] [address] Patient referred by: Maye Gonzalez [id number] [facility] [id number] HPI: Mr. Hagen is a 82 year [...] 2.5. PAST MEDICAL HISTORY Diagnosis Date A-fib ([facility]) s/p colectomy 2016. 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 Greenberg, Had extension into the bladder wall and hd a partial cystectomy. Colostomy care ([facility]) 09/25/[address] ([facility]) 09/25/2017 Coronary artery disease involving [place] coronary artery 09/25/[address] Huntley-Hugo [id number] Elevated hemoglobin A1c 07/30/2018 Essential hypertension 04/02/2011 Essential tremor 08/16/2019 Generalized weakness 06/18/2019 H/O heart artery stent 09/25/2017 4 stents 1993 History of DVT (deep vein thrombosis) 09/25/2017 1st clot end of Aug 2017, started on Eliquis 09/15/2017 needs to be on till 03/15/2018 S/P colectomy History of AK (myocardial infarction) 1993 History of prostate cancer [...] Cancer Father Cancer Father skin Heart Mother AK late 50's Stroke Mother Diabetes Mother Social [...] in LLQ-small amount of semiformed formed stool [place] mucosa; vague bulge underneath this but not [...] place (HCC) Z93.2 4. Paroxysmal atrial fibrillation ([facility]) I48.0 5. History of colon cancer Z85.038 [...] This office note has been created using Cahootify, a speech recognition software program, and may contain errors including punctuation, grammar, spelling, gender, and inappropriate words or phrases that pertain to the sytem. documented in this encounter [facility] 09-13-2022 Miscellaneous Notes Patient identified by name and date of . I advised patient the urine culture showed that macrobid would likely be ineffective to treat his UTI. He states he is still having some dysuria. Bactrim sent to his pharmacy, patient advised to stop Macrobid and start Bactrim. He verbalized understanding. Kassandra Grady APRN.ENGRAVING OPERATOR documented in this encounter [facility] 09-10-2022 Miscellaneous Notes BJ with [facility] called in states the Pts phone wasn't working. Pt states he was having UTI like issues. He was having leaking and pain with urination. Let her know there were no open appointments and to have him come to [facility]. Let her know [facility] is open until 8 pm. documented in this encounter [facility] 08-27-2022 Miscellaneous Notes Form faxed to Form signed. Paperwork received and given to PCP for review. Sylvia Rossi MA [facility] calling and states they will be faxing request for supplies for patient to PCP office and confirming fax number. Fax number verified. Meka Capps RN documented in this encounter [facility] 08-21-2022 History of Present illness Narrative [...] PERIPHERAL IV DATA: power port accessed by [employer] SIGNED BY: RT Arturo(R) August 21, 2022 2:52 PM documented in this encounter [facility] 08-19-2022 History of Present illness Narrative [...] patient undergo an in-lab PSG. Pt requests [facility]. 7. Cognitive impairment - ICD9: 294.9, [...] HISTORIES PAST MEDICAL HISTORY Diagnosis Date A-fib ([facility]) s/p colectomy 2016. 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 Consult to [facility] Bladder stone 09/25/[address] Bagley BPH with obstruction/lower urinary tract symptoms BPH with obstruction/lower urinary tract symptoms Dr. 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 Greenberg, Had extension into the bladder wall and hd a partial cystectomy. Colostomy care ([facility]) 09/25/[address] ([facility]) 09/25/2017 Coronary artery disease involving [place] coronary artery 09/25/[address] Siddiqui [id number] Elevated hemoglobin A1c 07/30/2018 Essential hypertension 04/02/2011 Essential tremor 08/16/2019 Generalized weakness 06/18/2019 H/O heart artery stent 09/25/2017 4 stents 1993 History of DVT (deep vein thrombosis) 09/25/2017 1st clot end of Aug 2017, started on Eliquis 09/15/2017 needs to be on till 03/15/2018 S/P colectomy History of AK (myocardial infarction) 1993 History of prostate cancer seeing Dr. White Hyperlipidemia, mixed 09/25/2017 Malignant neoplasm of ascending colon ([facility]) 07/29/2017 Malignant neoplasm of sigmoid colon ([facility]) 07/29/2017 Medicare annual wellness visit, subsequent 07/30/2018 [...] Cancer Father Cancer Father skin Heart Mother AK late 50's Stroke Mother Diabetes Mother SOCIAL [...] dysarthria; comprehension, naming, repetition intact. Serial 7s [id number]. Similarity of objects: 2/2. Clock drawing intact. [...] which included preparing to see the patient, [id number] patient care, completing clinical documentation, obtaining and/or reviewing separately obtained history, performing a medically appropriate examination, counseling and educating the patient/family/caregiver, independently interpreting results (not separately reported), and communicating results to the patient/family/caregiver. documented in this encounter [facility] 07-29-2022 Miscellaneous Notes Patient has been [...] Beverley Duff Pss documented in this encounter [facility] 07-24-2022 History of Present illness Narrative Chief Complaint Patient presents with: Pain: ER follow up on - fall on left shoulder/elbow HPI Sam Hagen is a 82 year old male who presents here today for ER Follow Up.. Patient also mentioned right hip pain and issues with urinating. Patient presented to [facility] ER on 07/15/2022 after having a [...] History PAST MEDICAL HISTORY Diagnosis Date A-fib ([facility]) s/p colectomy 2016. 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 Consult to [facility] Bladder stone 09/25/[address] Bagley BPH with obstruction/lower urinary tract symptoms BPH with obstruction/lower urinary tract symptoms Dr. 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 Greenberg, Had extension into the bladder wall and hd a partial cystectomy. Colostomy care ([facility]) 09/25/[address] ([facility]) 09/25/2017 Coronary artery disease involving [place] coronary artery 09/25/[address] Siddiqui [id number] Elevated hemoglobin A1c 07/30/2018 Essential hypertension 04/02/2011 Essential tremor 08/16/2019 Generalized weakness 06/18/2019 H/O heart artery stent 09/25/2017 4 stents 1993 History of DVT (deep vein thrombosis) 09/25/2017 1st clot end of Aug 2017, started on Eliquis 09/15/2017 needs to be on till 03/15/2018 S/P colectomy History of AK (myocardial infarction) 1993 History of prostate cancer seeing Dr. White Hyperlipidemia, mixed 09/25/2017 Malignant neoplasm of ascending colon ([facility]) 07/29/2017 Malignant neoplasm of sigmoid colon ([facility]) 07/29/2017 Medicare annual wellness visit, subsequent 07/30/2018 [...] Cancer Father Cancer Father skin Heart Mother AK late 50's Stroke Mother Diabetes Mother Patient [...] VACCINE Completed PNEUMOCOCCAL: 65+ Completed Data reviewed [facility] report from 07/15/2022 Component Latest Ref [...] Patient instructed on care. - referral to [facility]. 2. Dysuria - ICD9: 788.1, [...] Vishal Jones MD documented in this encounter [facility] 07-15-2022 History of Present illness Narrative [...] for full evaluation. documented in this encounter [facility] 06-20-2022 History of Present illness Narrative Patient is here for IVAD port flush/blood draw per [facility] protocol. IVAD is located in right upper [...] tolerated procedure well. documented in this encounter [facility] 06-06-2022 Miscellaneous Notes The following approved [...] advise. Leonid Ward documented in this encounter [facility] 05-15-2022 Instructions Vishal Jones MD - 05/15/2022 10:34 AM EDT Sam please contact your orthopedic spine providers office and let them know you saw vascular (Dr. Kaye Oneal with [facility] up on [address]) on 03/26/2022. documented in this encounter [facility] 05-15-2022 History of Present illness Narrative [...] Diagnosis Date A-fib (HCC) s/p colectomy 2016. 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 Siddiqui [id number] Elevated hemoglobin A1c 07/30/2018 Essential hypertension 04/02/2011 Essential tremor 08/16/2019 Generalized weakness 06/18/2019 H/O heart artery stent 09/25/2017 4 stents 1993 History of DVT (deep vein thrombosis) 09/25/2017 1st clot end of Aug 2017, started on Eliquis 09/15/2017 needs to be on till 03/15/2018 S/P colectomy History of AK (myocardial infarction) 1993 History of prostate cancer [...] Cancer Father Cancer Father skin Heart Mother AK late 50's Stroke Mother Diabetes Mother Patient [...] which included preparing to see the patient, [id number] patient care, completing clinical documentation, performing a medically appropriate examination, counseling and educating the patient/family/caregiver and ordering medications, tests, or procedures. Vishal Jones MD documented in this encounter [facility] 05-06-2022 History of Present illness Narrative [...] Chase Westbrook PT documented in this encounter [facility] 04-30-2022 History of Present illness Narrative [...] Patient to be seen for Therapeutic exercise (95897);Neuromuscular re-education (12802);Manual therapy (47909);Therapeutic activities (00180);Self-halfway management (61654);Patient/Family/Caregiver Education;Gait Training (12008) PLAN FOR NEXT VISIT: Progress LE strengthening. [...] Chase Westbrook PT documented in this encounter [facility] 04-18-2022 History of Present illness Narrative [...] Chase Westbrook PT documented in this encounter [facility] 03-28-2022 History of Present illness Narrative [...] Chase Westbrook PT documented in this encounter [facility] 03-26-2022 History of Present illness Narrative Images from the original note were not included. [facility] DEPARTMENT OF VASCULAR SURGERY OUTPATIENT VISIT DATE March 26, 2022 OUTPATIENT VISIT TYPE CONSULTATION SERVICE DATE: 03/26/2022 SERVICE TIME: 8:43 AM PRIMARY CARE PHYSICIAN: Vishal Jones MD REFERRING PROVIDER: Sharda Carl [address] [place] [address] Consult requested for an opinion regarding the [...] handed PAST MEDICAL HISTORY Diagnosis Date A-fib ([facility]) s/p colectomy 2016. 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 Bagley BPH with obstruction/lower urinary tract symptoms BPH with obstruction/lower urinary tract symptoms Dr. 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 Greenberg, Had extension into the bladder wall and hd a partial cystectomy. Colostomy care ([facility]) 09/25/[address] ([facility]) 09/25/2017 Coronary artery disease involving [place] coronary artery 09/25/[address] Siddiqui [id number] Elevated hemoglobin A1c 07/30/2018 Essential hypertension 04/02/2011 Essential tremor 08/16/2019 Generalized weakness 06/18/2019 H/O heart artery stent 09/25/2017 4 stents 1993 History of DVT (deep vein thrombosis) 09/25/2017 1st clot end of Aug 2017, started on Eliquis 09/15/2017 needs to be on till 03/15/2018 S/P colectomy History of AK (myocardial infarction) 1993 History of prostate cancer [...] Cancer Father Cancer Father skin Heart Mother AK late 50's Stroke Mother Diabetes Mother MEDICATIONS: [...] TIME: 8:43 AM documented in this encounter [facility] 03-25-2022 History of Present illness Narrative Images from the original note were not included. Brittny Gonzalez MD General Surgery [address] [place] [address], [address] [place] [address] Patient referred by: Maye Gonzalez [address] [place] [address] HPI: Mr. Hagen is a 82 year [...] issues. PAST MEDICAL HISTORY Diagnosis Date A-fib ([facility]) s/p colectomy 2016. 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 Bagley BPH with obstruction/lower urinary tract symptoms BPH with obstruction/lower urinary tract symptoms Dr. 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 Greenberg, Had extension into the bladder wall and hd a partial cystectomy. Colostomy care ([facility]) 09/25/[address] ([facility]) 09/25/2017 Coronary artery disease involving [place] coronary artery 09/25/[address] Huntley-Hugo [id number] Elevated hemoglobin A1c 07/30/2018 Essential hypertension 04/02/2011 Essential tremor 08/16/2019 Generalized weakness 06/18/2019 H/O heart artery stent 09/25/2017 4 stents 1993 History of DVT (deep vein thrombosis) 09/25/2017 1st clot end of Aug 2017, started on Eliquis 09/15/2017 needs to be on till 03/15/2018 S/P colectomy History of AK (myocardial infarction) 1993 History of prostate cancer [...] Cancer Father Cancer Father skin Heart Mother AK late 50's Stroke Mother Diabetes Mother Social [...] This office note has been created using [employer]ah[employer]ify, a speech recognition software program, and may contain errors including punctuation, grammar, spelling, gender, and inappropriate words or phrases that pertain to the sytem. documented in this encounter [facility] 03-21-2022 History of Present illness Narrative Chief Complaint Patient presents with: Established Patient HPI: Sam Hagen is a 82 year old male who presents here today for follow up rectal cancer. Per Dr. Greenberg's previous note: H/o CAD (AK 1993; treated with PCI balloon angioplasty; no stent) and prostate cancer (tx with radiation x44 fx ~8 years ago). He presented to [facility] fall 2016 with symptoms of bowel obstruction. He underwent attempted colonoscopy but the procedure was aborted when the scope was not able to be passed through the rectum/sigmoid area. He was transferred to [facility]. He ultimately underwent a total colectomy along [...] the patient underwent total colectomy in 2017 ([id number]). Colon and Rectum Cancer Case Summary Procedure: [...] Lymph 1.00 - 4.00 k/uL 1.24 1.03 Dougherty% % 9.9 8.1 Abs [place] <0.87 k/uL 0.70 0.61 Eosin% % 2.0 [...] as necessary for today's visit. Tameka Marshall APRN.ENGRAVING OPERATOR documented in this encounter [facility] 03-21-2022 Nurse Note Est. Pt. Discuss recent labs and CT results. Shreya Villalta LPN documented in this encounter [facility] 03-08-2022 Miscellaneous Notes noted Patient calling [...] Sharda for 03/12/22. documented in this encounter [facility] 02-26-2022 History of Present illness Narrative Blood return verified. Gripper hooked to auto-injector. Ct completed. Line flushed with 20cc NSS and 5cc Heparin. Gripper D/C'd. Light dressing applied. Pt tolerated procedure well. No C/O's. Site without complication noted. Deepika Gavin RN documented in this encounter [facility] 02-26-2022 History of Present illness Narrative [...] PERIPHERAL IV DATA: power port accessed by [employer] SIGNED BY: RT Arturo(R) February 26, 2022 2:04 PM documented in this encounter [facility] 02-06-2022 Miscellaneous Notes Pt called and [...] surgery tomorrow. Please phone [facility] with reply: [phone] Patient calling he is scheduled for back surgery tomorrow at [facility] per Dr Small. Patient asking if he is safe to have surgery done since he has carotid blockages? Patient does not know what time he is scheduled for yet. He said he is to be staying overnight at [facility]. Please advise documented in this encounter [facility] 01-31-2022 Miscellaneous Notes Patient notified. Verbalized understanding. ----- Message from Sharda Carl PA-C sent at 01/31/2022 8:45 AM EDT ----- Labs are normal. documented in this encounter [facility] 01-22-2022 History of Present illness Narrative Scan on 01/22/2022 11:12 AM by External Provider: Echo documented in this encounter [facility] 01-17-2022 Miscellaneous Notes Pt notified to [...] calling: self Call patient at: at home [phone] (home) [phone] (cell) Was an appointment scheduled: No Closing statement: Symptom Call: Thank you for calling [facility], your call is very important. A nurse will call in approximately 2-4 hours during business hours. If this is an emergency, please contact 911. Beverley Garrett documented in this encounter [facility] 01-08-2022 Miscellaneous Notes Spoke to patient [...] calling: self Call patient at: at home [phone] (home) [phone] (cell) Was an appointment scheduled: No Closing statement: Results or non-symptom based questions: Thank you for calling [facility], your call will be returned within the next business day. Beverley Garrett documented in this encounter [facility] 12-14-2021 Instructions Sharda Carl PA-C - 12/14/2021 9:33 AM EDT Please get labs done. Can try Aquaphor at night to help moisturize skin. Follow up as scheduled otherwise. documented in this encounter [facility] 12-14-2021 History of Present illness Narrative [...] History PAST MEDICAL HISTORY Diagnosis Date A-fib ([facility]) s/p colectomy 2016. 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 Bagley BPH with obstruction/lower urinary tract symptoms BPH with obstruction/lower urinary tract symptoms Dr. 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 Greenberg, Had extension into the bladder wall and hd a partial cystectomy. Colostomy care ([facility]) 09/25/[address] ([facility]) 09/25/2017 Coronary artery disease involving [place] coronary artery 09/25/[address] Huntley-Hugo [id number] Elevated hemoglobin A1c 07/30/2018 Essential hypertension 04/02/2011 Essential tremor 08/16/2019 Generalized weakness 06/18/2019 H/O heart artery stent 09/25/2017 4 stents 1994 History of DVT (deep vein thrombosis) 09/25/2017 1st clot end of Aug 2017, started on Eliquis 09/15/2017 needs to be on till 03/15/2018 S/P colectomy History of AK (myocardial infarction) 1993 History of prostate cancer [...] Cancer Father Cancer Father skin Heart Mother [place] late 50's Stroke Mother Diabetes Mother Patient [...] See above. 3. Coronary artery disease involving [place] coronary artery of [place] heart without angina pectoris - ICD9: 414.01, ICD10: I25.10 Continue with cardio 4. Paroxysmal atrial fibrillation (HCC) - ICD9: 427.31, ICD10: I48.0 Continue with cardio 5. Elevated hemoglobin A1c - ICD9: 790.29, ICD10: R73.09 Check labs 6. Hyperlipidemia, mixed - ICD9: 272.2, ICD10: E78.2 Await labs. Sharda Carl PA-C documented in this encounter [facility] 12-10-2021 History of Present illness Narrative Patient is here for IVAD port flush per [facility] protocol. IVAD is located in right upper chest. Site cleansed with Chloraprep IVAD accessed with a #20 gauge 3/4 non-coring Gripper needle Blood Return: Good Flushed with: 20 ml Normal Saline and 5 ml Heparin Lock Flush Non-coring needle removed. Paper tape applied to puncture site. Port site negative for redness, edema or tenderness. Patient tolerated procedure well. documented in this encounter [facility] 12-08-2021 History of Present illness Narrative [...] Diagnosis Date A-fib (HCC) s/p colectomy 2016. 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 Bagley BPH with obstruction/lower urinary tract symptoms BPH with obstruction/lower urinary tract symptoms Dr. 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 Greenberg, Had extension into the bladder wall and hd a partial cystectomy. Colostomy care ([facility]) 09/25/[address] ([facility]) 09/25/2017 Coronary artery disease involving [place] coronary artery 09/25/[address] Siddiqui [id number] Elevated hemoglobin A1c 07/30/2018 Essential hypertension 04/02/2011 Essential tremor 08/16/2019 Generalized weakness 06/18/2019 H/O heart artery stent 09/25/2017 4 stents 1993 History of DVT (deep vein thrombosis) 09/25/2017 1st clot end of Aug 2017, started on Eliquis 09/15/2017 needs to be on till 03/15/2018 S/P colectomy History of AK (myocardial infarction) 1993 History of prostate cancer seeing Dr. White Hyperlipidemia, mixed 09/25/2017 Malignant neoplasm of ascending colon (HCC) 07/29/2017 Malignant neoplasm of sigmoid colon ([facility]) 07/29/2017 Medicare annual wellness visit, subsequent 07/30/2018 [...] Cancer Father Cancer Father skin Heart Mother [place] late 50's Stroke Mother Diabetes Mother Patient [...] Vishal Jones MD documented in this encounter [facility] 12-05-2021 Miscellaneous Notes Pharmacy verified in [facility] Patient has been identified by name and [...] Shannon Mcrae Pss documented in this encounter [facility] documented as of this encounter (statuses as of 12/08/2021) [facility] History of Past illness Narrative* Problem Noted Date Resolved Date Malnutrition of moderate degree 08/20/2020 12/08/2021 Pneumonia 07/19/2017 07/19/2017 Acute respiratory failure with hypoxia 7 07/10/2017 Aspiration pneumonitis 07/03/2017 7 Bowel obstruction 06/30/2017 07/10/2017 documented as of this encounter (statuses as of 12/10/2021) [facility] History of Past illness Narrative* Problem Noted Date Resolved Date Malnutrition of moderate degree 08/20/2020 12/08/2021 Pneumonia 07/19/2017 07/19/2017 Acute respiratory failure with hypoxia 7 07/10/2017 Aspiration pneumonitis 07/03/2017 7 Bowel obstruction 06/30/2017 07/10/2017 documented as of this encounter (statuses as of 12/14/2021) [facility] History of Past illness Narrative* Problem Noted Date Resolved Date Malnutrition of moderate degree 08/20/2020 12/08/2021 Pneumonia 07/19/2017 07/19/2017 Acute respiratory failure with hypoxia 7 07/10/2017 Aspiration pneumonitis 07/03/2017 7 Bowel obstruction 06/30/2017 07/10/2017 documented as of this encounter (statuses as of 01/07/2022) [facility] History of Past illness Narrative* Problem Noted Date Resolved Date Malnutrition of moderate degree 08/20/2020 12/08/2021 Pneumonia 07/19/2017 07/19/2017 Acute respiratory failure with hypoxia 7 07/10/2017 Aspiration pneumonitis 07/03/2017 7 Bowel obstruction 06/30/2017 07/10/2017 documented as of this encounter (statuses as of 01/08/2022) [facility] History of Past illness Narrative* Problem Noted Date Resolved Date Malnutrition of moderate degree 08/20/2020 12/08/2021 Pneumonia 07/19/2017 07/19/2017 Acute respiratory failure with hypoxia 7 07/10/2017 Aspiration pneumonitis 07/03/2017 7 Bowel obstruction 06/30/2017 07/10/2017 documented as of this encounter (statuses as of 01/17/2022) [facility] History of Past illness Narrative* Problem Noted Date Resolved Date Malnutrition of moderate degree 08/20/2020 12/08/2021 Pneumonia 07/19/2017 07/19/2017 Acute respiratory failure with hypoxia 7 07/10/2017 Aspiration pneumonitis 07/03/2017 7 Bowel obstruction 06/30/2017 07/10/2017 documented as of this encounter (statuses as of 01/22/2022) [facility] History of Past illness Narrative* Problem Noted Date Resolved Date Malnutrition of moderate degree 08/20/2020 12/08/2021 Pneumonia 07/19/2017 07/19/2017 Acute respiratory failure with hypoxia 7 07/10/2017 Aspiration pneumonitis 07/03/2017 7 Bowel obstruction 06/30/2017 07/10/2017 documented as of this encounter (statuses as of 01/31/2022) [facility] History of Past illness Narrative* Problem Noted Date Resolved Date Malnutrition of moderate degree 08/20/2020 12/08/2021 Pneumonia 07/19/2017 07/19/2017 Acute respiratory failure with hypoxia 7 07/10/2017 Aspiration pneumonitis 07/03/2017 7 Bowel obstruction 06/30/2017 07/10/2017 documented as of this encounter (statuses as of 02/06/2022) [facility] History of Past illness Narrative* Problem Noted Date Resolved Date Malnutrition of moderate degree 08/20/2020 12/08/2021 Pneumonia 07/19/2017 07/19/2017 Acute respiratory failure with hypoxia 7 07/10/2017 Aspiration pneumonitis 07/03/2017 7 Bowel obstruction 06/30/2017 07/10/2017 documented as of this encounter (statuses as of 02/26/2022) [facility] History of Past illness Narrative* Problem Noted Date Resolved Date Malnutrition of moderate degree 08/20/2020 12/08/2021 Pneumonia 07/19/2017 07/19/2017 Acute respiratory failure with hypoxia 7 07/10/2017 Aspiration pneumonitis 07/03/2017 7 Bowel obstruction 06/30/2017 07/10/2017 documented as of this encounter (statuses as of 02/27/2022) [facility] History of Past illness Narrative* Problem Noted Date Resolved Date Malnutrition of moderate degree 08/20/2020 12/08/2021 Pneumonia 07/19/2017 07/19/2017 Acute respiratory failure with hypoxia 7 07/10/2017 Aspiration pneumonitis 07/03/2017 7 Bowel obstruction 06/30/2017 07/10/2017 documented as of this encounter (statuses as of 02/27/2022) [facility] History of Past illness Narrative* Problem Noted Date Resolved Date Malnutrition of moderate degree 08/20/2020 12/08/2021 Pneumonia 07/19/2017 07/19/2017 Acute respiratory failure with hypoxia 7 07/10/2017 Aspiration pneumonitis 07/03/2017 7 Bowel obstruction 06/30/2017 07/10/2017 documented as of this encounter (statuses as of 03/08/2022) [facility] History of Past illness Narrative* Problem Noted Date Resolved Date Malnutrition of moderate degree 08/20/2020 12/08/2021 Pneumonia 07/19/2017 07/19/2017 Acute respiratory failure with hypoxia 7 07/10/2017 Aspiration pneumonitis 07/03/2017 7 Bowel obstruction 06/30/2017 07/10/2017 documented as of this encounter (statuses as of 03/21/2022) [facility] History of Past illness Narrative* Problem Noted Date Resolved Date Malnutrition of moderate degree 08/20/2020 12/08/2021 Pneumonia 07/19/2017 07/19/2017 Acute respiratory failure with hypoxia 7 07/10/2017 Aspiration pneumonitis 07/03/2017 7 Bowel obstruction 06/30/2017 07/10/2017 documented as of this encounter (statuses as of 03/21/2022) [facility] History of Past illness Narrative* Problem Noted Date Resolved Date Malnutrition of moderate degree 08/20/2020 12/08/2021 Pneumonia 07/19/2017 07/19/2017 Acute respiratory failure with hypoxia 7 07/10/2017 Aspiration pneumonitis 07/03/2017 7 Bowel obstruction 06/30/2017 07/10/2017 documented as of this encounter (statuses as of 03/25/2022) [facility] History of Past illness Narrative* Problem Noted Date Resolved Date Malnutrition of moderate degree 08/20/2020 12/08/2021 Pneumonia 07/19/2017 07/19/2017 Acute respiratory failure with hypoxia 7 07/10/2017 Aspiration pneumonitis 07/03/2017 7 Bowel obstruction 06/30/2017 07/10/2017 documented as of this encounter (statuses as of 03/28/2022) [facility] History of Past illness Narrative* Problem Noted Date Resolved Date Malnutrition of moderate degree 08/20/2020 12/08/2021 Pneumonia 07/19/2017 07/19/2017 Acute respiratory failure with hypoxia 7 07/10/2017 Aspiration pneumonitis 07/03/2017 7 Bowel obstruction 06/30/2017 07/10/2017 documented as of this encounter (statuses as of 04/11/2022) [facility] History of Past illness Narrative* Problem Noted Date Resolved Date Malnutrition of moderate degree 08/20/2020 12/08/2021 Pneumonia 07/19/2017 07/19/2017 Acute respiratory failure with hypoxia 7 07/10/2017 Aspiration pneumonitis 07/03/2017 7 Bowel obstruction 06/30/2017 07/10/2017 documented as of this encounter (statuses as of 04/18/2022) [facility] History of Past illness Narrative* Problem Noted Date Resolved Date Malnutrition of moderate degree 08/20/2020 12/08/2021 Pneumonia 07/19/2017 07/19/2017 Acute respiratory failure with hypoxia 7 07/10/2017 Aspiration pneumonitis 07/03/2017 7 Bowel obstruction 06/30/2017 07/10/2017 documented as of this encounter (statuses as of 04/30/2022) [facility] History of Past illness Narrative* Problem Noted Date Resolved Date Malnutrition of moderate degree 08/20/2020 12/08/2021 Pneumonia 07/19/2017 07/19/2017 Acute respiratory failure with hypoxia 7 07/10/2017 Aspiration pneumonitis 07/03/2017 7 Bowel obstruction 06/30/2017 07/10/2017 documented as of this encounter (statuses as of 05/06/2022) [facility] History of Past illness Narrative* Problem Noted Date Resolved Date Malnutrition of moderate degree 08/20/2020 12/08/2021 Pneumonia 07/19/2017 07/19/2017 Acute respiratory failure with hypoxia 7 07/10/2017 Aspiration pneumonitis 07/03/2017 7 Bowel obstruction 06/30/2017 07/10/2017 documented as of this encounter (statuses as of 05/15/2022) [facility] History of Past illness Narrative* Problem Noted Date Resolved Date Malnutrition of moderate degree 08/20/2020 12/08/2021 Pneumonia 07/19/2017 07/19/2017 Acute respiratory failure with hypoxia 7 07/10/2017 Aspiration pneumonitis 07/03/2017 7 Bowel obstruction 06/30/2017 07/10/2017 documented as of this encounter (statuses as of 06/06/2022) [facility] History of Past illness Narrative* Problem Noted Date Resolved Date Malnutrition of moderate degree 08/20/2020 12/08/2021 Pneumonia 07/19/2017 07/19/2017 Acute respiratory failure with hypoxia 7 07/10/2017 Aspiration pneumonitis 07/03/2017 7 Bowel obstruction 06/30/2017 07/10/2017 documented as of this encounter (statuses as of 06/20/2022) [facility] History of Past illness Narrative* Problem Noted Date Resolved Date Malnutrition of moderate degree 08/20/2020 12/08/2021 Pneumonia 07/19/2017 07/19/2017 Acute respiratory failure with hypoxia 7 07/10/2017 Aspiration pneumonitis 07/03/2017 7 Bowel obstruction 06/30/2017 07/10/2017 documented as of this encounter (statuses as of 07/15/2022) [facility] History of Past illness Narrative* Problem Noted Date Resolved Date Malnutrition of moderate degree 08/20/2020 12/08/2021 Pneumonia 07/19/2017 07/19/2017 Acute respiratory failure with hypoxia 7 07/10/2017 Aspiration pneumonitis 07/03/2017 7 Bowel obstruction 06/30/2017 07/10/2017 documented as of this encounter (statuses as of 07/18/2022) [facility] History of Past illness Narrative* Problem Noted Date Resolved Date Malnutrition of moderate degree 08/20/2020 12/08/2021 Pneumonia 07/19/2017 07/19/2017 Acute respiratory failure with hypoxia 7 07/10/2017 Aspiration pneumonitis 07/03/2017 7 Bowel obstruction 06/30/2017 07/10/2017 documented as of this encounter (statuses as of 07/25/2022) [facility] History of Past illness Narrative* Problem Noted Date Resolved Date Malnutrition of moderate degree 08/20/2020 12/08/2021 Pneumonia 07/19/2017 07/19/2017 Acute respiratory failure with hypoxia 7 07/10/2017 Aspiration pneumonitis 07/03/2017 7 Bowel obstruction 06/30/2017 07/10/2017 documented as of this encounter (statuses as of 07/29/2022) [facility] History of Past illness Narrative* Problem Noted Date Resolved Date Malnutrition of moderate degree 08/20/2020 12/08/2021 Pneumonia 07/19/2017 07/19/2017 Acute respiratory failure with hypoxia 7 07/10/2017 Aspiration pneumonitis 07/03/2017 7 Bowel obstruction 06/30/2017 07/10/2017 documented as of this encounter (statuses as of 07/30/2022) [facility] History of Past illness Narrative* Problem Noted Date Resolved Date Malnutrition of moderate degree 08/20/2020 12/08/2021 Pneumonia 07/19/2017 07/19/2017 Acute respiratory failure with hypoxia 7 07/10/2017 Aspiration pneumonitis 07/03/2017 7 Bowel obstruction 06/30/2017 07/10/2017 documented as of this encounter (statuses as of 08/19/2022) [facility] History of Past illness Narrative* Problem Noted Date Resolved Date Malnutrition of moderate degree 08/20/2020 12/08/2021 Pneumonia 07/19/2017 07/19/2017 Acute respiratory failure with hypoxia 7 07/10/2017 Aspiration pneumonitis 07/03/2017 7 Bowel obstruction 06/30/2017 07/10/2017 documented as of this encounter (statuses as of 08/21/2022) [facility] History of Past illness Narrative* Problem Noted Date Resolved Date Malnutrition of moderate degree 08/20/2020 12/08/2021 Pneumonia 07/19/2017 07/19/2017 Acute respiratory failure with hypoxia 7 07/10/2017 Aspiration pneumonitis 07/03/2017 7 Bowel obstruction 06/30/2017 07/10/2017 documented as of this encounter (statuses as of 08/27/2022) [facility] History of Past illness Narrative* Problem Noted Date Resolved Date Malnutrition of moderate degree 08/20/2020 12/08/2021 Pneumonia 07/19/2017 07/19/2017 Acute respiratory failure with hypoxia 7 07/10/2017 Aspiration pneumonitis 07/03/2017 7 Bowel obstruction 06/30/2017 07/10/2017 documented as of this encounter (statuses as of 09/16/2022) [facility] History of Past illness Narrative* Problem Noted Date Resolved Date Malnutrition of moderate degree 08/20/2020 12/08/2021 Pneumonia 07/19/2017 07/19/2017 Acute respiratory failure with hypoxia 7 07/10/2017 Aspiration pneumonitis 07/03/2017 7 Bowel obstruction 06/30/2017 07/10/2017 documented as of this encounter (statuses as of 09/18/2022) [facility] History of Past illness Narrative* Problem Noted Date Resolved Date Malnutrition of moderate degree 08/20/2020 12/08/2021 Pneumonia 07/19/2017 07/19/2017 Acute respiratory failure with hypoxia 7 07/10/2017 Aspiration pneumonitis 07/03/2017 7 Bowel obstruction 06/30/2017 07/10/2017 documented as of this encounter (statuses as of 09/24/2022) [facility] History of Past illness Narrative* Problem Noted Date Resolved Date Malnutrition of moderate degree 08/20/2020 12/08/2021 Pneumonia 07/19/2017 07/19/2017 Acute respiratory failure with hypoxia 7 07/10/2017 Aspiration pneumonitis 07/03/2017 7 Bowel obstruction 06/30/2017 07/10/2017 documented as of this encounter (statuses as of 09/27/2022) [facility] History of Past illness Narrative* Problem Noted Date Resolved Date Malnutrition of moderate degree 08/20/2020 12/08/2021 Pneumonia 07/19/2017 07/19/2017 Acute respiratory failure with hypoxia 7 07/10/2017 Aspiration pneumonitis 07/03/2017 7 Bowel obstruction 06/30/2017 07/10/2017 documented as of this encounter (statuses as of 09/30/2022) [facility] History of Past illness Narrative* Problem Noted Date Resolved Date Malnutrition of moderate degree 08/20/2020 12/08/2021 Pneumonia 07/19/2017 07/19/2017 Acute respiratory failure with hypoxia 7 07/10/2017 Aspiration pneumonitis 07/03/2017 7 Bowel obstruction 06/30/2017 07/10/2017 documented as of this encounter (statuses as of 10/09/2022) [facility] History of Past illness Narrative* Problem Noted Date Resolved Date Malnutrition of moderate degree 08/20/2020 12/08/2021 Pneumonia 07/19/2017 07/19/2017 Acute respiratory failure with hypoxia 7 07/10/2017 Aspiration pneumonitis 07/03/2017 7 Bowel obstruction 06/30/2017 07/10/2017 documented as of this encounter (statuses as of 10/11/2022) [facility] History of Past illness Narrative* Problem Noted Date Resolved Date Malnutrition of moderate degree 08/20/2020 12/08/2021 Pneumonia 07/19/2017 07/19/2017 Acute respiratory failure with hypoxia 7 07/10/2017 Aspiration pneumonitis 07/03/2017 7 Bowel obstruction 06/30/2017 07/10/2017 documented as of this encounter (statuses as of 10/21/2022) [facility] of Past illness Narrative* Problem Noted Date Resolved Date Malnutrition of moderate degree 08/20/2020 12/08/2021 Pneumonia 07/19/2017 07/19/2017 Acute respiratory failure with hypoxia 7 07/10/2017 Aspiration pneumonitis 07/03/2017 7 Bowel obstruction 06/30/2017 07/10/2017 documented as of this encounter (statuses as of 10/29/2022) [facility] History of Past illness Narrative* Problem Noted Date Resolved Date Malnutrition of moderate degree 08/20/2020 12/08/2021 Pneumonia 07/19/2017 07/19/2017 Acute respiratory failure with hypoxia 7 07/10/2017 Aspiration pneumonitis 07/03/2017 7 Bowel obstruction 06/30/2017 07/10/2017 documented as of this encounter (statuses as of 11/01/2022) [facility] Past illness Narrative* Problem Noted Date Resolved Date Malnutrition of moderate degree 08/20/2020 12/08/2021 Pneumonia 07/19/2017 07/19/2017 Acute respiratory failure with hypoxia 7 07/10/2017 Aspiration pneumonitis 07/03/2017 7 Bowel obstruction 06/30/2017 07/10/2017 documented as of this encounter (statuses as of 11/07/2022) [facility] History of Past illness Narrative* Problem Noted Date Resolved Date Malnutrition of moderate degree 08/20/2020 12/08/2021 Pneumonia 07/19/2017 07/19/2017 Acute respiratory failure with hypoxia 7 07/10/2017 Aspiration pneumonitis 07/03/2017 7 Bowel obstruction 06/30/2017 07/10/2017 documented as of this encounter (statuses as of 11/09/2022) [facility] History [facility] Past illness Narrative* Problem Noted Date Resolved Date Malnutrition of moderate degree 08/20/2020 12/08/2021 Pneumonia 07/19/2017 07/19/2017 Acute respiratory failure with hypoxia 7 07/10/2017 Aspiration pneumonitis 07/03/2017 7 Bowel obstruction 06/30/2017 07/10/2017 documented as of this encounter (statuses as of 11/15/2022) [facility] Past illness Narrative* Problem Noted Date Resolved Date Malnutrition of moderate degree 08/20/2020 12/08/2021 Pneumonia 07/19/2017 07/19/2017 Acute respiratory failure with hypoxia 7 07/10/2017 Aspiration pneumonitis 07/03/2017 7 Bowel obstruction 06/30/2017 07/10/2017 documented as of this encounter (statuses as of 11/25/2022) [facility] Past illness Narrative* Problem Noted Date Resolved Date Malnutrition of moderate degree 08/20/2020 12/08/2021 Pneumonia 07/19/2017 07/19/2017 Acute respiratory failure with hypoxia 7 07/10/2017 Aspiration pneumonitis 07/03/2017 7 Bowel obstruction 06/30/2017 07/10/2017 documented as of this encounter (statuses as of 11/28/2022) [facility] History of Past illness Narrative* Problem Noted Date Resolved Date Malnutrition of moderate degree 08/20/2020 12/08/2021 Pneumonia 07/19/2017 07/19/2017 Acute respiratory failure with hypoxia 7 07/10/2017 Aspiration pneumonitis 07/03/2017 7 Bowel obstruction 06/30/2017 07/10/2017 documented as of this encounter (statuses as of 12/04/2022) [facility] History of Past illness Narrative* Problem Noted Date Resolved Date Malnutrition of moderate degree 08/20/2020 12/08/2021 Pneumonia 07/19/2017 07/19/2017 Acute respiratory failure with hypoxia 7 07/10/2017 Aspiration pneumonitis 07/03/2017 7 Bowel obstruction 06/30/2017 07/10/2017 documented as of this encounter (statuses as of 12/04/2022) [facility] History of Past illness Narrative* Problem Noted Date Resolved Date Malnutrition of moderate degree 08/20/2020 12/08/2021 Pneumonia 07/19/2017 07/19/2017 Acute respiratory failure with hypoxia 7 07/10/2017 Aspiration pneumonitis 07/03/2017 7 Bowel obstruction 06/30/2017 07/10/2017 documented as of this encounter (statuses as of 12/04/2022) [facility] History of Past illness Narrative* Problem Noted Date Resolved Date Malnutrition of moderate degree 08/20/2020 12/08/2021 Pneumonia 07/19/2017 07/19/2017 Acute respiratory failure with hypoxia 7 07/10/2017 Aspiration pneumonitis 07/03/2017 7 Bowel obstruction 06/30/2017 07/10/2017 documented as of this encounter (statuses as of 12/06/2022) [facility] History of Past illness Narrative* Problem Noted Date Resolved Date Malnutrition of moderate degree 08/20/2020 12/08/2021 Pneumonia 07/19/2017 07/19/2017 Acute respiratory failure with hypoxia 7 07/10/2017 Aspiration pneumonitis 07/03/2017 7 Bowel obstruction 06/30/2017 07/10/2017 documented as of this encounter (statuses as of 12/19/2022) [facility] History of Past illness Narrative* Problem Noted Date Resolved Date Malnutrition of moderate degree 08/20/2020 12/08/2021 Pneumonia 07/19/2017 07/19/2017 Acute respiratory failure with hypoxia 7 07/10/2017 Aspiration pneumonitis 07/03/2017 7 Bowel obstruction 06/30/2017 07/10/2017 documented as of this encounter (statuses as of 12/24/2022) [facility] History of Past illness Narrative* Problem Noted Date Resolved Date Malnutrition of moderate degree 08/20/2020 12/08/2021 Pneumonia 07/19/2017 07/19/2017 Acute respiratory failure with hypoxia 7 07/10/2017 Aspiration pneumonitis 07/03/2017 7 Bowel obstruction 06/30/2017 07/10/2017 documented as of this encounter (statuses as of 12/24/2022) [facility] History of Past illness Narrative* Problem Noted Date Resolved Date Malnutrition of moderate degree 08/20/2020 12/08/2021 Pneumonia 07/19/2017 07/19/2017 Acute respiratory failure with hypoxia 7 07/10/2017 Aspiration pneumonitis 07/03/2017 7 Bowel obstruction 06/30/2017 07/10/2017 documented as of this encounter (statuses as of 12/30/2022) [facility] History of Past illness Narrative* Problem Noted Date Resolved Date Malnutrition of moderate degree 08/20/2020 12/08/2021 Pneumonia 07/19/2017 07/19/2017 Acute respiratory failure with hypoxia 7 07/10/2017 Aspiration pneumonitis 07/03/2017 7 Bowel obstruction 06/30/2017 07/10/2017 documented as of this encounter (statuses as of 12/30/2022) [facility] History of Past illness Narrative* Problem Noted Date Resolved Date Malnutrition of moderate degree 08/20/2020 12/08/2021 Pneumonia 07/19/2017 07/19/2017 Acute respiratory failure with hypoxia 7 07/10/2017 Aspiration pneumonitis 07/03/2017 7 Bowel obstruction 06/30/2017 07/10/2017 documented as of this encounter (statuses as of 01/02/2023) [facility] History of Past illness Narrative* Problem Noted Date Resolved Date Malnutrition of moderate degree 08/20/2020 12/08/2021 Pneumonia 07/19/2017 07/19/2017 Acute respiratory failure with hypoxia 7 07/10/2017 Aspiration pneumonitis 07/03/2017 7 Bowel obstruction 06/30/2017 07/10/2017 documented as of this encounter (statuses as of 01/17/2023) [facility] History of Past illness Narrative* Problem Noted Date Resolved Date Malnutrition of moderate degree 08/20/2020 12/08/2021 Pneumonia 07/19/2017 07/19/2017 Acute respiratory failure with hypoxia 7 07/10/2017 Aspiration pneumonitis 07/03/2017 7 Bowel obstruction 06/30/2017 07/10/2017 documented as of this encounter (statuses as of 01/24/2023) [facility] History of Past illness Narrative* Problem Noted Date Resolved Date Malnutrition of moderate degree 08/20/2020 12/08/2021 Pneumonia 07/19/2017 07/19/2017 Acute respiratory failure with hypoxia 7 07/10/2017 Aspiration pneumonitis 07/03/2017 7 Bowel obstruction 06/30/2017 07/10/2017 documented as of this encounter (statuses as of 02/22/2023) [facility] History of Past illness Narrative* Problem Noted Date Resolved Date Malnutrition of moderate degree 08/20/2020 12/08/2021 Pneumonia 07/19/2017 07/19/2017 Acute respiratory failure with hypoxia 7 07/10/2017 Aspiration pneumonitis 07/03/2017 7 Bowel obstruction 06/30/2017 07/10/2017 documented as of this encounter (statuses as of 03/10/2023) [facility] History of Past illness Narrative* Problem Noted Date Diagnosed Date Resolved Date Malnutrition of moderate degree 08/20/2020 12/08/2021 Pneumonia 07/19/2017 07/19/2017 Acute respiratory failure with hypoxia 07/05/2017 07/10/2017 Aspiration pneumonitis 07/03/201707/10 Bowel obstruction 06/30/2017 07/10/2017 documented as of this encounter (statuses as of 03/27/2023) [facility] History of Past illness Narrative* Problem Noted Date Diagnosed Date Resolved Date Malnutrition of moderate degree 08/20/2020 12/08/2021 Pneumonia 07/19/2017 07/19/2017 Acute respiratory failure with hypoxia 07/05/2017 07/10/2017 Aspiration pneumonitis 07/03/201707/10 Bowel obstruction 06/30/2017 07/10/2017 documented as of this encounter (statuses as of 03/28/2023) [facility] History of Past illness Narrative* Problem Noted Date Diagnosed Date Resolved Date Malnutrition of moderate degree 08/20/2020 12/08/2021 Pneumonia 07/19/2017 07/19/2017 Acute respiratory failure with hypoxia 07/05/2017 07/10/2017 Aspiration pneumonitis 07/03/201707/10 Bowel obstruction 06/30/2017 07/10/2017 documented as of this encounter (statuses as of 04/01/2023) [facility] History of Past illness Narrative* Problem Noted Date Diagnosed Date Resolved Date Malnutrition of moderate degree 08/20/2020 12/08/2021 Pneumonia 07/19/2017 07/19/2017 Acute respiratory failure with hypoxia 07/05/2017 07/10/2017 Aspiration pneumonitis 07/03/201707/10 Bowel obstruction 06/30/2017 07/10/2017 documented as of this encounter (statuses as of 04/03/2023) [facility] History of Past illness Narrative* Problem Noted Date Diagnosed Date Resolved Date Malnutrition of moderate degree 08/20/2020 12/08/2021 Pneumonia 07/19/2017 07/19/2017 Acute respiratory failure with hypoxia 07/05/2017 07/10/2017 Aspiration pneumonitis 07/03/201707/10 Bowel obstruction 06/30/2017 07/10/2017 documented as of this encounter (statuses as of 04/10/2023) [facility] History of Past illness Narrative* Problem Noted Date Diagnosed Date Resolved Date Malnutrition of moderate degree 08/20/2020 12/08/2021 Pneumonia 07/19/2017 07/19/2017 Acute respiratory failure with hypoxia 07/05/2017 07/10/2017 Aspiration pneumonitis 07/03/201707/10 Bowel obstruction 06/30/2017 07/10/2017 documented as of this encounter (statuses as of 04/18/2023) [facility] History of Past illness Narrative* Problem Noted Date Diagnosed Date Resolved Date Malnutrition of moderate degree 08/20/2020 12/08/2021 Pneumonia 07/19/2017 07/19/2017 Acute respiratory failure with hypoxia 07/05/2017 07/10/2017 Aspiration pneumonitis 07/03/201707/10 Bowel obstruction 06/30/2017 07/10/2017 documented as of this encounter (statuses as of 04/18/2023) [facility] History of Past illness Narrative* Problem Noted Date Diagnosed Date Resolved Date Malnutrition of moderate degree 08/20/2020 12/08/2021 Pneumonia 07/19/2017 07/19/2017 Acute respiratory failure with hypoxia 07/05/2017 07/10/2017 Aspiration pneumonitis 07/03/201707/10 Bowel obstruction 06/30/2017 07/10/2017 documented as of this encounter (statuses as of 04/24/2023) [facility] History of Past illness Narrative* Problem Noted Date Diagnosed Date Resolved Date Malnutrition of moderate degree 08/20/2020 12/08/2021 Pneumonia 07/19/2017 07/19/2017 Acute respiratory failure with hypoxia 07/05/2017 07/10/2017 Aspiration pneumonitis 07/03/201707/10 Bowel obstruction 06/30/2017 07/10/2017 documented as of this encounter (statuses as of 05/06/2023) [facility] History of Past illness Narrative* Problem Noted Date Diagnosed Date Resolved Date Malnutrition of moderate degree 08/20/2020 12/08/2021 Pneumonia 07/19/2017 07/19/2017 Acute respiratory failure with hypoxia 07/05/2017 07/10/2017 Aspiration pneumonitis 07/03/201707/10 Bowel obstruction 06/30/2017 07/10/2017 documented as of this encounter (statuses as of 05/08/2023) [facility] History of Past illness Narrative* Problem Noted Date Diagnosed Date Resolved Date Malnutrition of moderate degree 08/20/2020 12/08/2021 Pneumonia 07/19/2017 07/19/2017 Acute respiratory failure with hypoxia 07/05/2017 07/10/2017 Aspiration pneumonitis 07/03/201707/10 Bowel obstruction 06/30/2017 07/10/2017 documented as of this encounter (statuses as of 05/08/2023) [facility] History of Past illness Narrative* Problem Noted Date Diagnosed Date Resolved Date Malnutrition of moderate degree 08/20/2020 12/08/2021 Pneumonia 07/19/2017 07/19/2017 Acute respiratory failure with hypoxia 07/05/2017 07/10/2017 Aspiration pneumonitis 07/03/201707/10 Bowel obstruction 06/30/2017 07/10/2017 documented as of this encounter (statuses as of 05/09/2023) [facility] History of Past illness Narrative* Problem Noted Date Diagnosed Date Resolved Date Malnutrition of moderate degree 08/20/2020 12/08/2021 Pneumonia 07/19/2017 07/19/2017 Acute respiratory failure with hypoxia 07/05/2017 07/10/2017 Aspiration pneumonitis 07/03/201707/10 Bowel obstruction 06/30/2017 07/10/2017 documented as of this encounter (statuses as of 05/09/2023) [facility] History of Past illness Narrative* Problem Noted Date Diagnosed Date Resolved Date Malnutrition of moderate degree 08/20/2020 12/08/2021 Pneumonia 07/19/2017 07/19/2017 Acute respiratory failure with hypoxia 07/05/2017 07/10/2017 Aspiration pneumonitis 07/03/201707/10 Bowel obstruction 06/30/2017 07/10/2017 documented as of this encounter (statuses as of 05/10/2023) [facility] History of Past illness Narrative* Problem Noted Date Diagnosed Date Resolved Date Malnutrition of moderate degree 08/20/2020 12/08/2021 Pneumonia 07/19/2017 07/19/2017 Acute respiratory failure with hypoxia 07/05/2017 07/10/2017 Aspiration pneumonitis 07/03/201707/10 Bowel obstruction 06/30/2017 07/10/2017 documented as of this encounter (statuses as of 05/13/2023) [facility] History of Past illness Narrative* Problem Noted Date Diagnosed Date Resolved Date Malnutrition of moderate degree 08/20/2020 12/08/2021 Pneumonia 07/19/2017 07/19/2017 Acute respiratory failure with hypoxia 07/05/2017 07/10/2017 Aspiration pneumonitis 07/03/201707/10 Bowel obstruction 06/30/2017 07/10/2017 documented as of this encounter (statuses as of 05/13/2023) [facility] History of Past illness Narrative* Problem Noted Date Diagnosed Date Resolved Date Malnutrition of moderate degree 08/20/2020 12/08/2021 Pneumonia 07/19/2017 07/19/2017 Acute respiratory failure with hypoxia 07/05/2017 07/10/2017 Aspiration pneumonitis 07/03/201707/10 Bowel obstruction 06/30/2017 07/10/2017 documented as of this encounter (statuses as of 05/16/2023) [facility] History of Past illness Narrative* Problem Noted Date Diagnosed Date Resolved Date Malnutrition of moderate degree 08/20/2020 12/08/2021 Pneumonia 07/19/2017 07/19/2017 Acute respiratory failure with hypoxia 07/05/2017 07/10/2017 Aspiration pneumonitis 07/03/201707/10 Bowel obstruction 06/30/2017 07/10/2017 documented as of this encounter (statuses as of 05/20/2023) [facility] History of Past illness Narrative* Problem Noted Date Diagnosed Date Resolved Date Malnutrition of moderate degree 08/20/2020 12/08/2021 Pneumonia 07/19/2017 07/19/2017 Acute respiratory failure with hypoxia 07/05/2017 07/10/2017 Aspiration pneumonitis 07/03/201707/10 Bowel obstruction 06/30/2017 07/10/2017 documented as of this encounter (statuses as of 05/30/2023) [facility] History of Past illness Narrative* Problem Noted Date Diagnosed Date Resolved Date Malnutrition of moderate degree 08/20/2020 12/08/2021 Pneumonia 07/19/2017 07/19/2017 Acute respiratory failure with hypoxia 07/05/2017 07/10/2017 Aspiration pneumonitis 07/03/201707/10 Bowel obstruction 06/30/2017 07/10/2017 documented as of this encounter (statuses as of 06/03/2023) [facility] History of Past illness Narrative* Problem Noted Date Diagnosed Date Resolved Date Malnutrition of moderate degree 08/20/2020 12/08/2021 Pneumonia 07/19/2017 07/19/2017 Acute respiratory failure with hypoxia 07/05/2017 07/10/2017 Aspiration pneumonitis 07/03/201707/10 Bowel obstruction 06/30/2017 07/10/2017 documented as of this encounter (statuses as of 06/05/2023) [facility] History of Past illness Narrative* Problem Noted Date Diagnosed Date Resolved Date Malnutrition of moderate degree 08/20/2020 12/08/2021 Pneumonia 07/19/2017 07/19/2017 Acute respiratory failure with hypoxia 07/05/2017 07/10/2017 Aspiration pneumonitis 07/03/201707/10 Bowel obstruction 06/30/2017 07/10/2017 documented as of this encounter (statuses as of 06/09/2023) [facility] History of Past illness Narrative* Problem Noted Date Diagnosed Date Resolved Date Malnutrition of moderate degree 08/20/2020 12/08/2021 Pneumonia 07/19/2017 07/19/2017 Acute respiratory failure with hypoxia 07/05/2017 07/10/2017 Aspiration pneumonitis 07/03/201707/10 Bowel obstruction 06/30/2017 07/10/2017 documented as of this encounter (statuses as of 06/27/2023) [facility] History of Past illness Narrative* Problem Noted Date Diagnosed Date Resolved Date Malnutrition of moderate degree 08/20/2020 12/08/2021 Pneumonia 07/19/2017 07/19/2017 Acute respiratory failure with hypoxia 07/05/2017 07/10/2017 Aspiration pneumonitis 07/03/201707/10 Bowel obstruction 06/30/2017 07/10/2017 documented as of this encounter (statuses as of 06/30/2023) [facility] History of Past illness Narrative* Problem Noted Date Diagnosed Date Resolved Date Malnutrition of moderate degree 08/20/2020 12/08/2021 Pneumonia 07/19/2017 07/19/2017 Acute respiratory failure with hypoxia 07/05/2017 07/10/2017 Aspiration pneumonitis 07/03/201707/10 Bowel obstruction 06/30/2017 07/10/2017 documented as of this encounter (statuses as of 07/01/2023) [facility] History of Past illness Narrative* Problem Noted Date Diagnosed Date Resolved Date Malnutrition of moderate degree 08/20/2020 12/08/2021 Pneumonia 07/19/2017 07/19/2017 Acute respiratory failure with hypoxia 07/05/2017 07/10/2017 Aspiration pneumonitis 07/03/201707/10 Bowel obstruction 06/30/2017 07/10/2017 documented as of this encounter (statuses as of 07/09/2023) [facility] History of Past illness Narrative* Problem Noted Date Diagnosed Date Resolved Date Malnutrition of moderate degree 08/20/2020 12/08/2021 Pneumonia 07/19/2017 07/19/2017 Acute respiratory failure with hypoxia 07/05/2017 07/10/2017 Aspiration pneumonitis 07/03/201707/10 Bowel obstruction 06/30/2017 07/10/2017 documented as of this encounter (statuses as of 07/15/2023) [facility] History of Past illness Narrative* Problem Noted Date Diagnosed Date Resolved Date Malnutrition of moderate degree 08/20/2020 12/08/2021 Pneumonia 07/19/2017 07/19/2017 Acute respiratory failure with hypoxia 07/05/2017 07/10/2017 Aspiration pneumonitis 07/03/201707/10 Bowel obstruction 06/30/2017 07/10/2017 documented as of this encounter (statuses as of 07/16/2023) [facility] History of Past illness Narrative* Problem Noted Date Diagnosed Date Resolved Date Malnutrition of moderate degree 08/20/2020 12/08/2021 Pneumonia 07/19/2017 07/19/2017 Acute respiratory failure with hypoxia 07/05/2017 07/10/2017 Aspiration pneumonitis 07/03/201707/10 Bowel obstruction 06/30/2017 07/10/2017 documented as of this encounter (statuses as of 07/19/2023) [facility] History of Past illness Narrative* Problem Noted Date Diagnosed Date Resolved Date Malnutrition of moderate degree 08/20/2020 12/08/2021 Pneumonia 07/19/2017 07/19/2017 Acute respiratory failure with hypoxia 07/05/2017 07/10/2017 Aspiration pneumonitis 07/03/201707/10 Bowel obstruction 06/30/2017 07/10/2017 documented as of this encounter (statuses as of 07/20/2023) [facility] History of Past illness Narrative* Problem Noted Date Diagnosed Date Resolved Date Malnutrition of moderate degree 08/20/2020 12/08/2021 Pneumonia 07/19/2017 07/19/2017 Acute respiratory failure with hypoxia 07/05/2017 07/10/2017 Aspiration pneumonitis 07/03/201707/10 Bowel obstruction 06/30/2017 07/10/2017 documented as of this encounter (statuses as of 07/20/2023) [facility] History of Past illness Narrative* Problem Noted Date Diagnosed Date Resolved Date Malnutrition of moderate degree 08/20/2020 12/08/2021 Pneumonia 07/19/2017 07/19/2017 Acute respiratory failure with hypoxia 07/05/2017 07/10/2017 Aspiration pneumonitis 07/03/201707/10 Bowel obstruction 06/30/2017 07/10/2017 documented as of this encounter (statuses as of 07/20/2023) [facility] History of Past illness Narrative* Problem Noted Date Diagnosed Date Resolved Date Malnutrition of moderate degree 08/20/2020 12/08/2021 Pneumonia 07/19/2017 07/19/2017 Acute respiratory failure with hypoxia 07/05/2017 07/10/2017 Aspiration pneumonitis 07/03/201707/10 Bowel obstruction 06/30/2017 07/10/2017 documented as of this encounter (statuses as of 07/20/2023) [facility] History of Past illness Narrative* Problem Noted Date Diagnosed Date Resolved Date Malnutrition of moderate degree 08/20/2020 12/08/2021 Pneumonia 07/19/2017 07/19/2017 Acute respiratory failure with hypoxia 07/05/2017 07/10/2017 Aspiration pneumonitis 07/03/201707/10 Bowel obstruction 06/30/2017 07/10/2017 documented as of this encounter (statuses as of 07/20/2023) [facility] History of Past illness Narrative* Problem Noted Date Diagnosed Date Resolved Date Malnutrition of moderate degree 08/20/2020 12/08/2021 Pneumonia 07/19/2017 07/19/2017 Acute respiratory failure with hypoxia 07/05/2017 07/10/2017 Aspiration pneumonitis 07/03/201707/10 Bowel obstruction 06/30/2017 07/10/2017 documented as of this encounter (statuses as of 07/20/2023) [facility] History of Past illness Narrative* Problem Noted Date Diagnosed Date Resolved Date Malnutrition of moderate degree 08/20/2020 12/08/2021 Pneumonia 07/19/2017 07/19/2017 Acute respiratory failure with hypoxia 07/05/2017 07/10/2017 Aspiration pneumonitis 07/03/201707/10 Bowel obstruction 06/30/2017 07/10/2017 documented as of this encounter (statuses as of 07/20/2023) [facility] History of Past illness Narrative* Problem Noted Date Diagnosed Date Resolved Date Malnutrition of moderate degree 08/20/2020 12/08/2021 Pneumonia 07/19/2017 07/19/2017 Acute respiratory failure with hypoxia 07/05/2017 07/10/2017 Aspiration pneumonitis 07/03/201707/10 Bowel obstruction 06/30/2017 07/10/2017 documented as of this encounter (statuses as of 07/20/2023) [facility] History of Past illness Narrative* Problem Noted Date Diagnosed Date Resolved Date Malnutrition of moderate degree 08/20/2020 12/08/2021 Pneumonia 07/19/2017 07/19/2017 Acute respiratory failure with hypoxia 07/05/2017 07/10/2017 Aspiration pneumonitis 07/03/201707/10 Bowel obstruction 06/30/2017 07/10/2017 documented as of this encounter (statuses as of 07/20/2023) [facility] History of Past illness Narrative* Problem Noted Date Diagnosed Date Resolved Date Malnutrition of moderate degree 08/20/2020 12/08/2021 Pneumonia 07/19/2017 07/19/2017 Acute respiratory failure with hypoxia 07/05/2017 07/10/2017 Aspiration pneumonitis 07/03/201707/10 Bowel obstruction 06/30/2017 07/10/2017 documented as of this encounter (statuses as of 07/25/2023) [facility] History of Past illness Narrative* Problem Noted Date Diagnosed Date Resolved Date Malnutrition of moderate degree 08/20/2020 12/08/2021 Pneumonia 07/19/2017 07/19/2017 Acute respiratory failure with hypoxia 07/05/2017 07/10/2017 Aspiration pneumonitis 07/03/201707/10 Bowel obstruction 06/30/2017 07/10/2017 documented as of this encounter (statuses as of 08/01/2023) [facility] History of Past illness Narrative* Problem Noted Date Diagnosed Date Resolved Date Malnutrition of moderate degree 08/20/2020 12/08/2021 Pneumonia 07/19/2017 07/19/2017 Acute respiratory failure with hypoxia 07/05/2017 07/10/2017 Aspiration pneumonitis 07/03/201707/10 Bowel obstruction 06/30/2017 07/10/2017 documented as of this encounter (statuses as of 08/26/2023) [facility] History of Past illness Narrative* Problem Noted Date Diagnosed Date Resolved Date Malnutrition of moderate degree 08/20/2020 12/08/2021 Pneumonia 07/19/2017 07/19/2017 Acute respiratory failure with hypoxia 07/05/2017 07/10/2017 Aspiration pneumonitis 07/03/201707/10 Bowel obstruction 06/30/2017 07/10/2017 documented as of this encounter (statuses as of 10/27/2023) [facility] History of Past illness Narrative* Problem Noted Date Diagnosed Date Resolved Date Malnutrition of moderate degree 08/20/2020 12/08/2021 Pneumonia 07/19/2017 07/19/2017 Acute respiratory failure with hypoxia 07/05/2017 07/10/2017 Aspiration pneumonitis 07/03/201707/10 Bowel obstruction 06/30/2017 07/10/2017 documented as of this encounter (statuses as of 10/28/2023) [facility] History of Past illness Narrative* Problem Noted Date Diagnosed Date Resolved Date Malnutrition of moderate degree 08/20/2020 12/08/2021 Pneumonia 07/19/2017 07/19/2017 Acute respiratory failure with hypoxia 07/05/2017 07/10/2017 Aspiration pneumonitis 07/03/201707/10 Bowel obstruction 06/30/2017 07/10/2017 documented as of this encounter (statuses as of 10/30/2023) [facility] History of Past illness Narrative* Problem Noted Date Diagnosed Date Resolved Date Malnutrition of moderate degree 08/20/2020 12/08/2021 Pneumonia 07/19/2017 07/19/2017 Acute respiratory failure with hypoxia 07/05/2017 07/10/2017 Aspiration pneumonitis 07/03/201707/10 Bowel obstruction 06/30/2017 07/10/2017 documented as of this encounter (statuses as of 10/30/2023) [facility] History of Past illness Narrative* Problem Noted Date Diagnosed Date Resolved Date Malnutrition of moderate degree 08/20/2020 12/08/2021 Pneumonia 07/19/2017 07/19/2017 Acute respiratory failure with hypoxia 07/05/2017 07/10/2017 Aspiration pneumonitis 07/03/201707/10 Bowel obstruction 06/30/2017 07/10/2017 documented as of this encounter (statuses as of 10/31/2023) [facility] History of Past illness Narrative* Problem Noted Date Diagnosed Date Resolved Date Malnutrition of moderate degree 08/20/2020 12/08/2021 Pneumonia 07/19/2017 07/19/2017 Acute respiratory failure with hypoxia 07/05/2017 07/10/2017 Aspiration pneumonitis 07/03/201707/10 Bowel obstruction 06/30/2017 07/10/2017 documented as of this encounter (statuses as of 10/31/2023) [facility] History of Past illness Narrative* Problem Noted Date Diagnosed Date Resolved Date Malnutrition of moderate degree 08/20/2020 12/08/2021 Pneumonia 07/19/2017 07/19/2017 Acute respiratory failure with hypoxia 07/05/2017 07/10/2017 Aspiration pneumonitis 07/03/201707/10 Bowel obstruction 06/30/2017 07/10/2017 documented as of this encounter (statuses as of 11/08/2023) [facility] Fall risk [id number] [employer] Work Phone: 1(490) 241-921211-04-2017 History of Past illness Narrative* Problem Noted Date Resolved Date Pneumonia 07/19/2017 07/19/2017 Acute respiratory failure with hypoxia 7 07/10/2017 Aspiration pneumonitis 07/03/2017 7 Bowel obstruction 06/30/2017 07/10/2017 documented as of this encounter (statuses as of 12/05/2021) [facility]2017 Fall risk [id number] risk assessmentWMadeiraMadeira Work Phone: Evaluation note* Diagnosis Situational depression- Primary Adjustment disorder with depressed mood Malnutrition of moderate degree (HCC) Malnutrition of moderate degree [facility] Diagnosis Malignant neoplasm of sigmoid colon (HCC)- Primary Malignant neoplasm of sigmoid colon [facility] Diagnosis Preop examination- Primary Preoperative examination, unspecified DDD (degenerative disc disease), lumbar Degeneration of lumbar or lumbosacral intervertebral disc Coronary artery disease involving [place] coronary artery of [place] heart without angina pectoris Paroxysmal atrial fibrillation (HCC) Atrial fibrillation Elevated hemoglobin A1c Other abnormal blood chemistry Hyperlipidemia, mixed Mixed hyperlipidemia [facility] Diagnosis Malignant neoplasm of sigmoid colon (HCC)- Primary Malignant neoplasm of sigmoid colon [facility] Diagnosis Rectal cancer (HCC) Malignant neoplasm of rectum [facility] Diagnosis Rectal cancer (HCC) Malignant neoplasm of rectum [facility] Diagnosis Malignant neoplasm of sigmoid colon (HCC)- Primary Malignant neoplasm of sigmoid colon [facility] Diagnosis Rectal cancer (HCC)- Primary Malignant neoplasm of rectum [facility] Diagnosis History of colon cancer- Primary Personal history of malignant neoplasm of large intestine Ventral hernia without obstruction or gangrene Ventral hernia, unspecified, without mention of obstruction or gangrene 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) Ileostomy status Generalized weakness Other malaise and fatigue Falls frequently Personal history of [facility] Falls frequently- Primary Personal history of fall [facility] Diagnosis Bilateral carotid artery stenosis Occlusion and stenosis of carotid artery without mention of cerebral infarction Positional lightheadedness Dizziness and giddiness [facility] Diagnosis Falls frequently- Primary Personal history of fall [facility] Diagnosis Falls frequently- Primary Personal history of fall [facility] Diagnosis Essential hypertension- Primary Unspecified essential hypertension Bilateral carotid artery stenosis Occlusion and stenosis of carotid artery without mention of cerebral infarction Chronic midline low back pain with right-sided sciatica Falls frequently Personal history of fall Generalized weakness Other malaise and fatigue [facility] Diagnosis Malignant neoplasm of sigmoid colon (HCC)- Primary Malignant neoplasm of sigmoid colon [facility]* Diagnosis Fever, unspecified fever cause- Primary [facility]* Diagnosis Malignant neoplasm of prostate (HCC)- Primary Malignant neoplasm of prostate [facility]* Diagnosis Skin abrasion- Primary Abrasion or friction burn of other, multiple, and unspecified sites, without mention of infection Dysuria Acute cystitis with hematuria Acute cystitis Arthritis of right hip Arthritis, lumbar spine Lumbosacral spondylosis without myelopathy [facility]* Diagnosis Right leg pain- Primary Pain in limb Lumbar pain Lumbago Spinal stenosis, lumbar region with neurogenic claudication Frequent nocturnal awakening Other sleep disturbances Sleep apnea-like behavior Insomnia, unspecified type Cognitive impairment Unspecified persistent mental disorders due to conditions classified elsewhere [facility] Diagnosis Malignant neoplasm of sigmoid colon (HCC) Malignant neoplasm of sigmoid colon [facility] Diagnosis Ventral hernia without obstruction [...] abnormal blood chemistry Coronary artery disease involving [place] coronary artery of [place] heart without angina pectoris Paroxysmal atrial fibrillation [...] single bacterial disease [facility] Hyperkalemia- Primary Hyperpotassemia documented [...] initial encounter- Primary [facility] Diagnosis Spinal stenosis of lumbar region, unspecified whether neurogenic claudication present- Primary [facility]* Diagnosis Rectal cancer (HCC) Malignant neoplasm of rectum Elevated CEA Elevated carcinoembryonic antigen [CEA] Abnormal CT scan Other nonspecific (abnormal) findings on radiological and other examinations of body structure [facility]* Diagnosis Malignant neoplasm of sigmoid colon (HCC)- Primary Malignant neoplasm of sigmoid colon [facility] Diagnosis 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 [facility] Diagnosis 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 [facility]* Diagnosis Situational depression- Primary Adjustment disorder with depressed mood SALAS (generalized anxiety disorder) Generalized anxiety disorder Cognitive impairment, mild, so stated Mild cognitive impairment, so stated [facility] Diagnosis 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 [facility] Diagnosis Malignant neoplasm of sigmoid colon (HCC)- Primary Malignant neoplasm of sigmoid colon [facility]* Diagnosis Cognitive impairment- Primary Unspecified persistent mental disorders due to conditions classified elsewhere [facility]* Diagnosis Medicare annual wellness visit, subsequent- Primary Routine general medical examination at a health care facility Essential hypertension Unspecified essential hypertension Hyperlipidemia, mixed Mixed hyperlipidemia Elevated hemoglobin A1c Other abnormal blood chemistry Paroxysmal atrial fibrillation (HCC) Atrial fibrillation Coronary artery disease involving [place] coronary artery of [place] heart without angina pectoris Bilateral carotid artery [...] neoplasm of prostate [facility]* Diagnosis Malignant neoplasm of rectum (HCC)- Primary Malignant neoplasm of rectum documented [facility]* Diagnosis Malignant neoplasm of rectum (HCC)- Primary Malignant neoplasm of rectum [facility]* Diagnosis Acute encephalopathy- Primary Encephalopathy, unspecified Dementia without behavioral disturbance (HCC) Dementia, unspecified, without behavioral disturbance Closed nondisplaced fracture of styloid process of left ulna, initial encounter Acute cystitis without hematuria Acute cystitis Cellulitis of skin Cellulitis and abscess of unspecified site [facility]* Diagnosis Malignant neoplasm of sigmoid colon (HCC)- Primary Malignant neoplasm of sigmoid colon [facility] Diagnosis Malignant neoplasm of sigmoid colon (HCC)- Primary Malignant neoplasm of sigmoid colon [facility]* Diagnosis Closed fracture of distal end of left humerus with routine healing, unspecified fracture morphology, subsequent encounter- Primary Bilateral carotid artery stenosis- Primary Occlusion and stenosis of carotid artery without mention of cerebral infarction [facility]* Diagnosis Upper respiratory virus- Primary Acute upper respiratory infections of unspecified site Acute cough [facility]* Diagnosis Dementia, unspecified dementia severity, unspecified dementia type, unspecified whether behavioral, psychotic, or mood disturbance or anxiety (HCC)- Primary [facility]* Diagnosis Rectal cancer (HCC) Malignant neoplasm of rectum [facility]* Diagnosis Malignant neoplasm of rectum (HCC) Malignant neoplasm of rectum [facility] Diagnosis Malignant neoplasm of rectum (HCC) Malignant neoplasm of rectum [facility]* Diagnosis Dementia without behavioral disturbance (HCC) Dementia, unspecified, without behavioral disturbance Spinal stenosis of lumbar region with neurogenic claudication Spinal stenosis, lumbar region, with neurogenic claudication [facility]* Diagnosis Rectal cancer (HCC) Malignant neoplasm of rectum Abnormal CT of the abdomen Nonspecific (abnormal) findings on radiological and other examination of abdominal area, including retroperitoneum [facility]* Diagnosis Rectal cancer (HCC) Malignant neoplasm of rectum documented in this encounter [facility] note* Diagnosis Elbow effusion, left- Primary SALAS (generalized anxiety disorder) Generalized anxiety disorder documented in this encounter [facility] note* Diagnosis Polypharmacy- Primary Encounter for long-term (current) use of other medications Dementia, unspecified dementia severity, unspecified dementia type, unspecified whether behavioral, psychotic, or mood disturbance or anxiety (HCC) Falls frequently Personal history of fall Alcohol dependence with uncomplicated intoxication (HCC) Acute alcoholic intoxication in alcoholism, unspecified Driving safety issue Other specified personal history presenting hazards to health documented in this encounter [facility] note* Diagnosis Dysuria- Primary Urinary tract infection with hematuria, site unspecified [facility] Diagnosis Pain of right hip- Primary documented in this encounter [facility] note* Diagnosis SALAS (generalized anxiety disorder) Generalized anxiety disorder documented in this encounter [facility] note* Diagnosis Dementia, unspecified dementia severity, unspecified dementia type, unspecified whether behavioral, psychotic, or mood disturbance or anxiety (HCC) Alcohol dependence with uncomplicated intoxication (HCC) Acute alcoholic intoxication in alcoholism, unspecified documented in this encounter [facility] for referral (narrative)* Outpatient Procedure (Routine) - Authorized Specialty Diagnoses / Procedures Referred By Remi Referred To Contact [facility] Diagnoses Bilateral carotid artery stenosis Procedures US CAROTID ARTERIES [facility] DUPLEX SCAN EXTRACRANIAL ART COMPL BI STUDY Kaye Oneal DO [address] [place] [address] [facility] [address] [place] [address] Referral ID Status Reason Start Date Expiration Date Visits Requested Visits Authorized [id number] Authorized Auto-Generat ed Referral 03/26/2022 03/26/2023 1 1 [facility] for referral (narrative)* Diagnostic Procedure Only (Routine) - Closed Specialty Diagnoses / Procedures Referred By Remi rocha Referred To Contact MOLECULAR & FUNCTIONAL IMAGING Diagnoses Rectal cancer (HCC) Elevated CEA Abnormal CT scan Procedures NM PET/CT SKULL-THIGH INITIAL PET IMAGING CT ATTENUATION SKULL BASE MID-THIGH Tameka Marshall APRN.ENGRAVING OPERATOR [address] [place] [address] Molecular & Functional Imaging [address] [place] [address] Referral ID Status Reason Start Date Expiration Date V isits Requested Visits Authorized [id number] Closed Auto-Generate d Referral 11/14/2022 12/14/2023 1 1 [facility] for referral (narrative)* Diagnostic Procedure Only (Routine) - Pending Review Specialty Diagnoses / Procedures Referred By Remi rocha Referred To Contact XR IMAGING Diagnoses Pain of right hip Procedures XR HIP GENERAL 3V PELV/AP/LAT RIGHT RADEX HIP UNILATERAL WITH PELVIS 2-3 VIEWS Vishal Jones MD [address] [place] [address] Xr Imaging [facility] Referral ID Status Reason Start Date Expiration Date Visits Requested Visits Authorized [id number] Pending Review Auto-Generat ed Referral 10/28/2023 11/26/2024 1 1 [facility] for visit Narrative* Diagnostic Procedure Only (Routine) - Closed Specialty Diagnoses / Procedures Referred By Remi rocha Referred To Contact MOLECULAR & FUNCTIONAL IMAGING Diagnoses Rectal cancer (HCC) Elevated CEA Abnormal CT scan Procedures NM PET/CT SKULL-THIGH INITIAL PET IMAGING CT ATTENUATION SKULL BASE MID-THIGH Tameka Marshall APRN.ENGRAVING OPERATOR [address] [place] [address] Molecular & Functional Imaging [address] [place], [place] [id number] Referral ID Status Reason Start Date Expiration Date V isits Requested Visits Authorized [id number] Closed Auto-Generate d Referral 11/14/2022 12/14/2023 1 1 [facility] Summary Purpose Family History No Family History Records FoundNo Family History Records FoundNo Family History Records FoundNo Family History Records Found Advance Directives Documents on File Type Date Recorded 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 Advance Directive(s) 07/20/2017 8:54 AM Latest Code Status on File Code Status Date Activated Date Inactivated Comments Full Code 08/18/2020 2:14 PM 08/19/2020 12:20 PM Documents on File Type Date Recorded 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 Advance Directive(s) 08/19/2020 2:53 PM Advance Directive(s) 08/05/2020 3:02 AM Advance Directive(s) 08/03/2020 8:57 AM Advance Directive(s) 12/23/2019 5:57 AM Advance Directive(s) 08/06/2019 7:25 AM Advance Directive(s) 07/20/2017 8:54 AM Advance Directive(s) 07/02/2017 4:27 PM Documents on File Type Date Recorded 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 Advance Directive(s) 08/19/2020 2:53 PM [...] Documents on File Type Date Recorded 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 Advance Directive(s) 07/20/2017 8:54 AM [...] DIAGNOSTIC COMPUTED TOMOGRAPHY THORAX W/CONTRAST Tameka Marshall APRN.ENGRAVING OPERATOR [address] [place] [address] Ct Imaging Referral ID Status Reason Start Date Expiration Date V isits Requested Visits Authorized [id number] Closed Auto-Generate d Referral 11/14/2021 12/14/2022 1 1 Specialty Diagnoses / Procedures Referred By Contac t Referred To Contact CT IMAGING Diagnoses Rectal cancer (HCC) Procedures CT ABD/PEL W IVCON CT ABD & PELVIS W/CONTRAST Tameka Marshall APRN.ENGRAVING OPERATOR [address] [place] [address] Ct Imaging Referral ID Status Reason Start Date Expiration Date V isits Requested Visits Authorized [id number] Closed Auto-Generate d Referral 11/14/2021 12/14/2022 1 1 Referral ID Status Reason Start Date Expiration Date Visits Requested Visits Authorized [id number] Authorized Auto-Generat ed Referral 03/21/2022 04/20/2023 1 1 Referral ID Status Reason Start Date Expiration Date Visits Requested Visits Authorized [id number] Authorized Auto-Generat ed Referral 03/21/2022 04/20/2023 1 1 Specialty Diagnoses / Procedures Referred By Contac t Referred To Contact Orthopedics Diagnoses Arthritis of right hip Arthritis, lumbar spine Procedures CONSULT TO ORTHOPAEDICS OFFICE/OUTPATIENT [facility] 60-74 MINUTES Vishal Jones MD [address] [place] [address] Referral ID Status Reason Start Date Expiration Date Visits Requested Visits Authorized [id number] Authorized PCP Requested Referral 07/24/2022 07/24/2023 1 1 Specialty Diagnoses / Procedures Referred By Contac t Referred To Contact CT IMAGING Diagnoses Rectal cancer (HCC) Abnormal CT of the abdomen Procedures CT ABD/PEL W IVCON CT ABD & PELVIS W/CONTRAST Tameka Marshall APRN.ENGRAVING OPERATOR [address] [place] [address] Ct Imaging Referral ID Status Reason Start Date Expiration Date Visits Requested Visits Authorized [id number] Authorized Auto-Generat ed Referral 10/09/2022 11/08/2023 1 1 Specialty Diagnoses / Procedures Referred By Contac t Referred To Contact Neurosurgery Diagnoses Spinal stenosis of lumbar region, unspecified whether neurogenic claudication present Procedures CONSULT TO NEUROSURGERY Mikhail Liu Jr., MD [address] [address] Referral ID Status Reason Start Date Expiration Date Visits Requested Visits Authorized [id number] Ref Not Required PCP Requested Referral 11/28/2022 02/26/2023 3 3 Specialty Diagnoses / Procedures Referred By Contac t Referred To Contact Diagnoses 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) Procedures CT SIM PLANNING RADIATION ONCOLOGY THER RAD SIMULAJ-AIDED FIELD SETTING COMPLEX Clement Werner MD, [address] [place] [address] Referral ID Status Reason Start Date Expiration Date Visits Requested Visits Authorized [id number] Pending Review PCP Requested Referral 12/30/2022 03/25/2023 1 1 Specialty Diagnoses / Procedures Referred By Contac t Referred To Contact CT IMAGING Diagnoses Malignant neoplasm of rectum (HCC) Procedures CT CHEST W IVCON DIAGNOSTIC COMPUTED TOMOGRAPHY THORAX W/CONTRAST Sam Greenberg, DO [address] [place] [address] Ct Imaging Referral ID Status Reason Start Date Expiration Date Visits Requested Visits Authorized [id number] Authorized Auto-Generat ed Referral 04/01/2023 04/30/2024 1 1 Specialty Diagnoses / Procedures Referred By Contac t Referred To Contact CT IMAGING Diagnoses Malignant neoplasm of rectum (HCC) Procedures CT ABD/PEL W IVCON CT ABD & PELVIS W/CONTRAST Sam Greenberg, DO [address] [place] [address] Ct Imaging Referral ID Status Reason Start Date Expiration Date Visits Requested Visits Authorized [id number] Authorized Auto-Generat ed Referral 04/01/2023 04/30/2024 1 1 Specialty Diagnoses / Procedures Referred By Contac t Referred To Contact Neurology Diagnoses Dementia, unspecified dementia severity, unspecified dementia type, unspecified whether behavioral, psychotic, or mood disturbance or anxiety (HCC) Procedures CONSULT TO NEUROLOGY OFFICE/OUTPATIENT [facility] 60-74 MINUTES Mikhail Liu Jr., MD [address] [address] Referral ID Status Reason Start Date Expiration Date Visits Requested Visits Authorized [id number] Authorized PCP Requested Referral 06/29/2024 1 1 Specialty Diagnoses / Procedures Referred By Contac t Referred To Contact CT IMAGING Diagnoses Malignant neoplasm of rectum (HCC) Procedures CT CHEST W IVCON DIAGNOSTIC COMPUTED TOMOGRAPHY THORAX W/CONTRAST Sam Greenberg Aide, DO [address] [place] [address] Ct Imaging [facility] Referral ID Status Reason Start Date Expiration Date V isits Requested Visits Authorized [id number] Closed Auto-Generate d Referral 04/01/2023 04/30/2024 1 1 Specialty Diagnoses / Procedures Referred By Contac t Referred To Contact CT IMAGING Diagnoses Malignant neoplasm of rectum (HCC) Procedures CT ABD/PEL W IVCON CT ABD & PELVIS W/CONTRAST Sam Greenberg Aide, DO [address] [place] [address] Ct Imaging [facility] Referral ID Status Reason Start Date Expiration Date V isits Requested Visits Authorized [id number] Closed Auto-Generate d Referral 04/01/2023 04/30/2024 1 1 Referral ID Status Reason Start Date Expiration Date V isits Requested Visits Authorized [id number] Closed Auto-Generate d Referral 02/25/2023 03/26/2024 1 1 Referral ID Status Reason Start Date Expiration Date V isits Requested Visits Authorized [id number] Closed Auto-Generate d Referral 02/25/2023 03/26/2024 1 1 Specialty Diagnoses / Procedures Referred By Contac t Referred To Contact MR IMAGING Diagnoses Spinal stenosis of lumbar region with neurogenic claudication Procedures MRI LUMBAR SPINE WO IVCON MRI SPINAL CANAL LUMBAR W/O CONTRAST MATERIAL Mikhail Liu Jr., MD [address] [address] [place] [address] Referral ID Status Reason Start Date Expiration Date V isits Requested Visits Authorized [id number] Closed Auto-Generate d Referral 06/24/2022 07/24/2023 1 1 Specialty Diagnoses / Procedures Referred By Contac t Referred To Contact MR IMAGING Diagnoses Dementia without behavioral disturbance (HCC) Procedures MRI BRAIN WO IVCON MRI BRAIN BRAIN STEM W/O CONTRAST MATERIAL Mikhail Liu Jr., MD [address] [facility] [address] [place] [address] [place] [address] Referral ID Status Reason Start Date Expiration Date V isits Requested Visits Authorized [id number] Closed Auto-Generate d Referral 06/24/2022 07/24/2023 1 1 Specialty Diagnoses / Procedures Referred By Contac t Referred To Contact CT IMAGING Diagnoses Rectal cancer (HCC) Abnormal CT of the abdomen Procedures CT ABD/PEL W IVCON CT ABD & PELVIS W/CONTRAST Tameka Marshall, 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 [address] [place] [address] [place] [address] Referral ID Status Reason Start Date Expiration Date V isits Requested Visits Authorized [id number] Closed Auto-Generate d Referral 10/09/2022 11/08/2023 1 1 Specialty Diagnoses / Procedures Referred By Contac t Referred To Contact CT IMAGING Diagnoses Rectal cancer (HCC) Procedures CT CHEST W IVCON DIAGNOSTIC COMPUTED TOMOGRAPHY THORAX W/CONTRAST Tameka Marshall, 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 [address] [place] [address] [place] [address] Referral ID Status Reason Start Date Expiration Date V isits Requested Visits Authorized [id number] Closed Auto-Generate d Referral 03/21/2022 04/20/2023 1 1 Specialty Diagnoses / Procedures Referred By Contac t Referred To Contact CT IMAGING Diagnoses Rectal cancer (HCC) Procedures CT ABD/PEL W IVCON CT ABD & PELVIS W/CONTRAST Rolando, Tameka, 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 [address] [place] [address] [place] [address] Referral ID Status Reason Start Date Expiration Date V isits Requested Visits Authorized [id number] Closed Auto-Generate d Referral 03/21/2022 04/20/2023 1 1 Specialty Diagnoses / Procedures Referred By Contac t Referred To Contact Orthopedics Diagnoses Elbow effusion, left Procedures CONSULT TO ORTHOPAEDICS OFFICE/OUTPATIENT NEW HIGH MDM 60-74 MINUTES Ren Chua, 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 [address] [place] [address] Referral ID Status Reason Start Date Expiration Date Visits Requested Visits Authorized [id number] Authorized PCP Requested Referral 3 07/31/2024 1 1 Specialty Diagnoses / Procedures Referred By Contac t Referred To Contact MR IMAGING Diagnoses Dementia, unspecified dementia severity, unspecified dementia type, unspecified whether behavioral, psychotic, or mood disturbance or anxiety (HCC) Alcohol dependence with uncomplicated intoxication (HCC) Procedures MRI 3D POST PROCESSING 3D RENDERING W/INTERP&POSTPROC DIFF WORK STATION Chapincito Tomlin MD [address] [place] [address] [facility] [place] [address] Referral ID Status Reason Start Date Expiration Date Visits Requested Visits Authorized [id number] Authorized Auto-Generat ed Referral 3 09/24/2024 1 1 Specialty Diagnoses / Procedures Referred By Contac t Referred To Contact MR IMAGING Diagnoses Dementia, unspecified dementia severity, unspecified dementia type, unspecified whether behavioral, psychotic, or mood disturbance or anxiety (HCC) Alcohol dependence with uncomplicated intoxication (HCC) Procedures MRI BRAIN W QUANT WO IVCON MRI BRAIN BRAIN STEM W/O CONTRAST MATERIAL Chapincito Tomlin MD [address] [place] [address] [facility] [place] [address] Referral ID Status Reason Start Date Expiration Date Visits Requested Visits Authorized [id number] Authorized Auto-Generat ed Referral 3 09/24/2024 1 1 Additional Source Comments (unrecognized sect ion and content) No Status Records FoundNo Status Records FoundNo Status Records FoundNo Status Records Found INFORMATION SOURCE (unrecogn ized section and content) DATE CREATED AUTHOR AUTHOR'S ORGANIZ ATION 08/07/2022 [facility] DATE CREATED AUTHOR AUTHOR'S ORGANIZ ATION 10/31/2023 [facility] DATE CREATED AUTHOR AUTHOR'S ORGANIZ ATION 11/01/2023 [facility] Source Comments (unrecognize d section and content) In the event this informatio n is protected by the Federal Confidentiality of Alcohol and Drug Abuse Patient Records regulations: The Federal rules restrict any use of the information to criminally investigate or prosecute any alcohol or drug abuse patient.[facility] the event this information is protected by the Federal Confidentiality of Alcohol and Drug Abuse Patient Records regulations: The Federal rules restrict any use of the information to criminally investigate or prosecute any alcohol or drug abuse patient.[facility] HospitalIn the event this information is protected by the Federal Confidentiality of Alcohol and Drug Abuse Patient Records regulations: The Federal rules restrict any use of the information to criminally investigate or prosecute any alcohol or drug abuse patient.[facility]In the event this information is protected by the Federal Confidentiality of Alcohol and Drug Abuse Patient Records regulations: The Federal rules restrict any use of the information to criminally investigate or prosecute any alcohol or drug abuse patient.[facility] HospitalIn the event this information is protected by the Federal Confidentiality of Alcohol and Drug Abuse Patient Records regulations: The Federal rules restrict any use of the information to criminally investigate or prosecute any alcohol or drug abuse patient.[facility] HospitalIn the event this information is protected by the Federal Confidentiality of Alcohol and Drug Abuse Patient Records regulations: The Federal rules restrict any use of the information to criminally investigate or prosecute any alcohol or drug abuse patient.[facility] HospitalIn the event this information is protected by the Federal Confidentiality of Alcohol and Drug Abuse Patient Records regulations: The Federal rules restrict any use of the information to criminally investigate or prosecute any alcohol or drug abuse patient.[facility] HospitalIn the event this information is protected by the Federal Confidentiality of Alcohol and Drug Abuse Patient Records regulations: The Federal rules restrict any use of the information to criminally investigate or prosecute any alcohol or drug abuse patient.[facility] HospitalIn the event this information is protected by the Federal Confidentiality of Alcohol and Drug Abuse Patient Records regulations: The Federal rules restrict any use of the information to criminally investigate or prosecute any alcohol or drug abuse patient.[facility] HospitalIn the event this information is protected by the Federal Confidentiality of Alcohol and Drug Abuse Patient Records regulations: The Federal rules restrict any use of the information to criminally investigate or prosecute any alcohol or drug abuse patient.[facility] HospitalIn the event this information is protected by the Federal Confidentiality of Alcohol and Drug Abuse Patient Records regulations: The Federal rules restrict any use of the information to criminally investigate or prosecute any alcohol or drug abuse patient.[facility] HospitalIn the event this information is protected by the Federal Confidentiality of Alcohol and Drug Abuse Patient Records regulations: The Federal rules restrict any use of the information to criminally investigate or prosecute any alcohol or drug abuse patient.[facility] HospitalIn the event this information is protected by the Federal Confidentiality of Alcohol and Drug Abuse Patient Records regulations: The Federal rules restrict any use of the information to criminally investigate or prosecute any alcohol or drug abuse patient.[facility] HospitalIn the event this information is protected by the Federal Confidentiality of Alcohol and Drug Abuse Patient Records regulations: The Federal rules restrict any use of the information to criminally investigate or prosecute any alcohol or drug abuse patient.[facility] HospitalIn the event this information is protected by the Federal Confidentiality of Alcohol and Drug Abuse Patient Records regulations: The Federal rules restrict any use of the information to criminally investigate or prosecute any alcohol or drug abuse patient.[facility] HospitalIn the event this information is protected by the Federal Confidentiality of Alcohol and Drug Abuse Patient Records regulations: The Federal rules restrict any use of the information to criminally investigate or prosecute any alcohol or drug abuse patient.[facility] HospitalIn the event this information is protected by the Federal Confidentiality of Alcohol and Drug Abuse Patient Records regulations: The Federal rules restrict any use of the information to criminally investigate or prosecute any alcohol or drug abuse patient.[facility] HospitalIn the event this information is protected by the Federal Confidentiality of Alcohol and Drug Abuse Patient Records regulations: The Federal rules restrict any use of the information to criminally investigate or prosecute any alcohol or drug abuse patient.[facility] HospitalIn the event this information is protected by the Federal Confidentiality of Alcohol and Drug Abuse Patient Records regulations: The Federal rules restrict any use of the information to criminally investigate or prosecute any alcohol or drug abuse patient.[facility] HospitalIn the event this information is protected by the Federal Confidentiality of Alcohol and Drug Abuse Patient Records regulations: The Federal rules restrict any use of the information to criminally investigate or prosecute any alcohol or drug abuse patient.[facility] HospitalIn the event this information is protected by the Federal Confidentiality of Alcohol and Drug Abuse Patient Records regulations: The Federal rules restrict any use of the information to criminally investigate or prosecute any alcohol or drug abuse patient.[facility] HospitalIn the event this information is protected by the Federal Confidentiality of Alcohol and Drug Abuse Patient Records regulations: The Federal rules restrict any use of the information to criminally investigate or prosecute any alcohol or drug abuse patient.[facility] HospitalIn the event this information is protected by the Federal Confidentiality of Alcohol and Drug Abuse Patient Records regulations: The Federal rules restrict any use of the information to criminally investigate or prosecute any alcohol or drug abuse patient.[facility] HospitalIn the event this information is protected by the Federal Confidentiality of Alcohol and Drug Abuse Patient Records regulations: The Federal rules restrict any use of the information to criminally investigate or prosecute any alcohol or drug abuse patient.[facility] HospitalIn the event this information is protected by the Federal Confidentiality of Alcohol and Drug Abuse Patient Records regulations: The Federal rules restrict any use of the information to criminally investigate or prosecute any alcohol or drug abuse patient.[facility] HospitalIn the event this information is protected by the Federal Confidentiality of Alcohol and Drug Abuse Patient Records regulations: The Federal rules restrict any use of the information to criminally investigate or prosecute any alcohol or drug abuse patient.[facility] HospitalIn the event this information is protected by the Federal Confidentiality of Alcohol and Drug Abuse Patient Records regulations: The Federal rules restrict any use of the information to criminally investigate or prosecute any alcohol or drug abuse patient.[facility] HospitalIn the event this information is protected by the Federal Confidentiality of Alcohol and Drug Abuse Patient Records regulations: The Federal rules restrict any use of the information to criminally investigate or prosecute any alcohol or drug abuse patient.[facility] HospitalIn the event this information is protected by the Federal Confidentiality of Alcohol and Drug Abuse Patient Records regulations: The Federal rules restrict any use of the information to criminally investigate or prosecute any alcohol or drug abuse patient.[facility] HospitalIn the event this information is protected by the Federal Confidentiality of Alcohol and Drug Abuse Patient Records regulations: The Federal rules restrict any use of the information to criminally investigate or prosecute any alcohol or drug abuse patient.[facility] HospitalIn the event this information is protected by the Federal Confidentiality of Alcohol and Drug Abuse Patient Records regulations: The Federal rules restrict any use of the information to criminally investigate or prosecute any alcohol or drug abuse patient.[facility] HospitalIn the event this information is protected by the Federal Confidentiality of Alcohol and Drug Abuse Patient Records regulations: The Federal rules restrict any use of the information to criminally investigate or prosecute any alcohol or drug abuse patient.[facility] HospitalIn the event this information is protected by the Federal Confidentiality of Alcohol and Drug Abuse Patient Records regulations: The Federal rules restrict any use of the information to criminally investigate or prosecute any alcohol or drug abuse patient.[facility] HospitalIn the event this information is protected by the Federal Confidentiality of Alcohol and Drug Abuse Patient Records regulations: The Federal rules restrict any use of the information to criminally investigate or prosecute any alcohol or drug abuse patient.[facility] HospitalIn the event this information is protected by the Federal Confidentiality of Alcohol and Drug Abuse Patient Records regulations: The Federal rules restrict any use of the information to criminally investigate or prosecute any alcohol or drug abuse patient.[facility] HospitalIn the event this information is protected by the Federal Confidentiality of Alcohol and Drug Abuse Patient Records regulations: The Federal rules restrict any use of the information to criminally investigate or prosecute any alcohol or drug abuse patient.[facility] HospitalIn the event this information is protected by the Federal Confidentiality of Alcohol and Drug Abuse Patient Records regulations: The Federal rules restrict any use of the information to criminally investigate or prosecute any alcohol or drug abuse patient.[facility] HospitalIn the event this information is protected by the Federal Confidentiality of Alcohol and Drug Abuse Patient Records regulations: The Federal rules restrict any use of the information to criminally investigate or prosecute any alcohol or drug abuse patient.[facility] HospitalIn the event this information is protected by the Federal Confidentiality of Alcohol and Drug Abuse Patient Records regulations: The Federal rules restrict any use of the information to criminally investigate or prosecute any alcohol or drug abuse patient.[facility] HospitalIn the event this information is protected by the Federal Confidentiality of Alcohol and Drug Abuse Patient Records regulations: The Federal rules restrict any use of the information to criminally investigate or prosecute any alcohol or drug abuse patient.[facility] HospitalIn the event this information is protected by the Federal Confidentiality of Alcohol and Drug Abuse Patient Records regulations: The Federal rules restrict any use of the information to criminally investigate or prosecute any alcohol or drug abuse patient.[facility] HospitalIn the event this information is protected by the Federal Confidentiality of Alcohol and Drug Abuse Patient Records regulations: The Federal rules restrict any use of the information to criminally investigate or prosecute any alcohol or drug abuse patient.[facility] HospitalIn the event this information is protected by the Federal Confidentiality of Alcohol and Drug Abuse Patient Records regulations: The Federal rules restrict any use of the information to criminally investigate or prosecute any alcohol or drug abuse patient.[facility] HospitalIn the event this information is protected by the Federal Confidentiality of Alcohol and Drug Abuse Patient Records regulations: The Federal rules restrict any use of the information to criminally investigate or prosecute any alcohol or drug abuse patient.[facility] HospitalIn the event this information is protected by the Federal Confidentiality of Alcohol and Drug Abuse Patient Records regulations: The Federal rules restrict any use of the information to criminally investigate or prosecute any alcohol or drug abuse patient.[facility] HospitalIn the event this information is protected by the Federal Confidentiality of Alcohol and Drug Abuse Patient Records regulations: The Federal rules restrict any use of the information to criminally investigate or prosecute any alcohol or drug abuse patient.[facility] HospitalIn the event this information is protected by the Federal Confidentiality of Alcohol and Drug Abuse Patient Records regulations: The Federal rules restrict any use of the information to criminally investigate or prosecute any alcohol or drug abuse patient.[facility] HospitalIn the event this information is protected by the Federal Confidentiality of Alcohol and Drug Abuse Patient Records regulations: The Federal rules restrict any use of the information to criminally investigate or prosecute any alcohol or drug abuse patient.[facility] HospitalIn the event this information is protected by the Federal Confidentiality of Alcohol and Drug Abuse Patient Records regulations: The Federal rules restrict any use of the information to criminally investigate or prosecute any alcohol or drug abuse patient.[facility] HospitalIn the event this information is protected by the Federal Confidentiality of Alcohol and Drug Abuse Patient Records regulations: The Federal rules restrict any use of the information to criminally investigate or prosecute any alcohol or drug abuse patient.[facility] HospitalIn the event this information is protected by the Federal Confidentiality of Alcohol and Drug Abuse Patient Records regulations: The Federal rules restrict any use of the information to criminally investigate or prosecute any alcohol or drug abuse patient.[facility] HospitalIn the event this information is protected by the Federal Confidentiality of Alcohol and Drug Abuse Patient Records regulations: The Federal rules restrict any use of the information to criminally investigate or prosecute any alcohol or drug abuse patient.[facility] HospitalIn the event this information is protected by the Federal Confidentiality of Alcohol and Drug Abuse Patient Records regulations: The Federal rules restrict any use of the information to criminally investigate or prosecute any alcohol or drug abuse patient.[facility] HospitalIn the event this information is protected by the Federal Confidentiality of Alcohol and Drug Abuse Patient Records regulations: The Federal rules restrict any use of the information to criminally investigate or prosecute any alcohol or drug abuse patient.[facility] HospitalIn the event this information is protected by the Federal Confidentiality of Alcohol and Drug Abuse Patient Records regulations: The Federal rules restrict any use of the information to criminally investigate or prosecute any alcohol or drug abuse patient.[facility] HospitalIn the event this information is protected by the Federal Confidentiality of Alcohol and Drug Abuse Patient Records regulations: The Federal rules restrict any use of the information to criminally investigate or prosecute any alcohol or drug abuse patient.[facility] HospitalIn the event this information is protected by the Federal Confidentiality of Alcohol and Drug Abuse Patient Records regulations: The Federal rules restrict any use of the information to criminally investigate or prosecute any alcohol or drug abuse patient.[facility] HospitalIn the event this information is protected by the Federal Confidentiality of Alcohol and Drug Abuse Patient Records regulations: The Federal rules restrict any use of the information to criminally investigate or prosecute any alcohol or drug abuse patient.[facility] HospitalIn the event this information is protected by the Federal Confidentiality of Alcohol and Drug Abuse Patient Records regulations: The Federal rules restrict any use of the information to criminally investigate or prosecute any alcohol or drug abuse patient.[facility] HospitalIn the event this information is protected by the Federal Confidentiality of Alcohol and Drug Abuse Patient Records regulations: The Federal rules restrict any use of the information to criminally investigate or prosecute any alcohol or drug abuse patient.[facility] HospitalIn the event this information is protected by the Federal Confidentiality of Alcohol and Drug Abuse Patient Records regulations: The Federal rules restrict any use of the information to criminally investigate or prosecute any alcohol or drug abuse patient.[facility] HospitalIn the event this information is protected by the Federal Confidentiality of Alcohol and Drug Abuse Patient Records regulations: The Federal rules restrict any use of the information to criminally investigate or prosecute any alcohol or drug abuse patient.[facility] HospitalIn the event this information is protected by the Federal Confidentiality of Alcohol and Drug Abuse Patient Records regulations: The Federal rules restrict any use of the information to criminally investigate or prosecute any alcohol or drug abuse patient.[facility] HospitalIn the event this information is protected by the Federal Confidentiality of Alcohol and Drug Abuse Patient Records regulations: The Federal rules restrict any use of the information to criminally investigate or prosecute any alcohol or drug abuse patient.[facility] HospitalIn the event this information is protected by the Federal Confidentiality of Alcohol and Drug Abuse Patient Records regulations: The Federal rules restrict any use of the information to criminally investigate or prosecute any alcohol or drug abuse patient.[facility] HospitalIn the event this information is protected by the Federal Confidentiality of Alcohol and Drug Abuse Patient Records regulations: The Federal rules restrict any use of the information to criminally investigate or prosecute any alcohol or drug abuse patient.[facility] HospitalIn the event this information is protected by the Federal Confidentiality of Alcohol and Drug Abuse Patient Records regulations: The Federal rules restrict any use of the information to criminally investigate or prosecute any alcohol or drug abuse patient.[facility] HospitalIn the event this information is protected by the Federal Confidentiality of Alcohol and Drug Abuse Patient Records regulations: The Federal rules restrict any use of the information to criminally investigate or prosecute any alcohol or drug abuse patient.[facility] HospitalIn the event this information is protected by the Federal Confidentiality of Alcohol and Drug Abuse Patient Records regulations: The Federal rules restrict any use of the information to criminally investigate or prosecute any alcohol or drug abuse patient.[facility] HospitalIn the event this information is protected by the Federal Confidentiality of Alcohol and Drug Abuse Patient Records regulations: The Federal rules restrict any use of the information to criminally investigate or prosecute any alcohol or drug abuse patient.[facility] HospitalIn the event this information is protected by the Federal Confidentiality of Alcohol and Drug Abuse Patient Records regulations: The Federal rules restrict any use of the information to criminally investigate or prosecute any alcohol or drug abuse patient.[facility] HospitalIn the event this information is protected by the Federal Confidentiality of Alcohol and Drug Abuse Patient Records regulations: The Federal rules restrict any use of the information to criminally investigate or prosecute any alcohol or drug abuse patient.[facility] HospitalIn the event this information is protected by the Federal Confidentiality of Alcohol and Drug Abuse Patient Records regulations: The Federal rules restrict any use of the information to criminally investigate or prosecute any alcohol or drug abuse patient.[facility] HospitalIn the event this information is protected by the Federal Confidentiality of Alcohol and Drug Abuse Patient Records regulations: The Federal rules restrict any use of the information to criminally investigate or prosecute any alcohol or drug abuse patient.[facility] HospitalIn the event this information is protected by the Federal Confidentiality of Alcohol and Drug Abuse Patient Records regulations: The Federal rules restrict any use of the information to criminally investigate or prosecute any alcohol or drug abuse patient.[facility] HospitalIn the event this information is protected by the Federal Confidentiality of Alcohol and Drug Abuse Patient Records regulations: The Federal rules restrict any use of the information to criminally investigate or prosecute any alcohol or drug abuse patient.[facility] HospitalIn the event this information is protected by the Federal Confidentiality of Alcohol and Drug Abuse Patient Records regulations: The Federal rules restrict any use of the information to criminally investigate or prosecute any alcohol or drug abuse patient.[facility] HospitalIn the event this information is protected by the Federal Confidentiality of Alcohol and Drug Abuse Patient Records regulations: The Federal rules restrict any use of the information to criminally investigate or prosecute any alcohol or drug abuse patient.[facility] HospitalIn the event this information is protected by the Federal Confidentiality of Alcohol and Drug Abuse Patient Records regulations: The Federal rules restrict any use of the information to criminally investigate or prosecute any alcohol or drug abuse patient.[facility] HospitalIn the event this information is protected by the Federal Confidentiality of Alcohol and Drug Abuse Patient Records regulations: The Federal rules restrict any use of the information to criminally investigate or prosecute any alcohol or drug abuse patient.[facility] HospitalIn the event this information is protected by the Federal Confidentiality of Alcohol and Drug Abuse Patient Records regulations: The Federal rules restrict any use of the information to criminally investigate or prosecute any alcohol or drug abuse patient.[facility] HospitalIn the event this information is protected by the Federal Confidentiality of Alcohol and Drug Abuse Patient Records regulations: The Federal rules restrict any use of the information to criminally investigate or prosecute any alcohol or drug abuse patient.[facility] HospitalIn the event this information is protected by the Federal Confidentiality of Alcohol and Drug Abuse Patient Records regulations: The Federal rules restrict any use of the information to criminally investigate or prosecute any alcohol or drug abuse patient.[facility] HospitalIn the event this information is protected by the Federal Confidentiality of Alcohol and Drug Abuse Patient Records regulations: The Federal rules restrict any use of the information to criminally investigate or prosecute any alcohol or drug abuse patient.[facility] HospitalIn the event this information is protected by the Federal Confidentiality of Alcohol and Drug Abuse Patient Records regulations: The Federal rules restrict any use of the information to criminally investigate or prosecute any alcohol or drug abuse patient.[facility] HospitalIn the event this information is protected by the Federal Confidentiality of Alcohol and Drug Abuse Patient Records regulations: The Federal rules restrict any use of the information to criminally investigate or prosecute any alcohol or drug abuse patient.[facility] HospitalIn the event this information is protected by the Federal Confidentiality of Alcohol and Drug Abuse Patient Records regulations: The Federal rules restrict any use of the information to criminally investigate or prosecute any alcohol or drug abuse patient.[facility] HospitalIn the event this information is protected by the Federal Confidentiality of Alcohol and Drug Abuse Patient Records regulations: The Federal rules restrict any use of the information to criminally investigate or prosecute any alcohol or drug abuse patient.[facility] HospitalIn the event this information is protected by the Federal Confidentiality of Alcohol and Drug Abuse Patient Records regulations: The Federal rules restrict any use of the information to criminally investigate or prosecute any alcohol or drug abuse patient.[facility] HospitalIn the event this information is protected by the Federal Confidentiality of Alcohol and Drug Abuse Patient Records regulations: The Federal rules restrict any use of the information to criminally investigate or prosecute any alcohol or drug abuse patient.[facility] HospitalIn the event this information is protected by the Federal Confidentiality of Alcohol and Drug Abuse Patient Records regulations: The Federal rules restrict any use of the information to criminally investigate or prosecute any alcohol or drug abuse patient.[facility] HospitalIn the event this information is protected by the Federal Confidentiality of Alcohol and Drug Abuse Patient Records regulations: The Federal rules restrict any use of the information to criminally investigate or prosecute any alcohol or drug abuse patient.[facility] HospitalIn the event this information is protected by the Federal Confidentiality of Alcohol and Drug Abuse Patient Records regulations: The Federal rules restrict any use of the information to criminally investigate or prosecute any alcohol or drug abuse patient.[facility] HospitalIn the event this information is protected by the Federal Confidentiality of Alcohol and Drug Abuse Patient Records regulations: The Federal rules restrict any use of the information to criminally investigate or prosecute any alcohol or drug abuse patient.[facility] HospitalIn the event this information is protected by the Federal Confidentiality of Alcohol and Drug Abuse Patient Records regulations: The Federal rules restrict any use of the information to criminally investigate or prosecute any alcohol or drug abuse patient.[facility] HospitalIn the event this information is protected by the Federal Confidentiality of Alcohol and Drug Abuse Patient Records regulations: The Federal rules restrict any use of the information to criminally investigate or prosecute any alcohol or drug abuse patient.[facility] HospitalIn the event this information is protected by the Federal Confidentiality of Alcohol and Drug Abuse Patient Records regulations: The Federal rules restrict any use of the information to criminally investigate or prosecute any alcohol or drug abuse patient.[facility] HospitalIn the event this information is protected by the Federal Confidentiality of Alcohol and Drug Abuse Patient Records regulations: The Federal rules restrict any use of the information to criminally investigate or prosecute any alcohol or drug abuse patient.[facility] HospitalIn the event this information is protected by the Federal Confidentiality of Alcohol and Drug Abuse Patient Records regulations: The Federal rules restrict any use of the information to criminally investigate or prosecute any alcohol or drug abuse patient.[facility] HospitalIn the event this information is protected by the Federal Confidentiality of Alcohol and Drug Abuse Patient Records regulations: The Federal rules restrict any use of the information to criminally investigate or prosecute any alcohol or drug abuse patient.[facility] HospitalIn the event this information is protected by the Federal Confidentiality of Alcohol and Drug Abuse Patient Records regulations: The Federal rules restrict any use of the information to criminally investigate or prosecute any alcohol or drug abuse patient.[facility] HospitalIn the event this information is protected by the Federal Confidentiality of Alcohol and Drug Abuse Patient Records regulations: The Federal rules restrict any use of the information to criminally investigate or prosecute any alcohol or drug abuse patient.[facility] HospitalIn the event this information is protected by the Federal Confidentiality of Alcohol and Drug Abuse Patient Records regulations: The Federal rules restrict any use of the information to criminally investigate or prosecute any alcohol or drug abuse patient.[facility] HospitalIn the event this information is protected by the Federal Confidentiality of Alcohol and Drug Abuse Patient Records regulations: The Federal rules restrict any use of the information to criminally investigate or prosecute any alcohol or drug abuse patient.[facility] HospitalIn the event this information is protected by the Federal Confidentiality of Alcohol and Drug Abuse Patient Records regulations: The Federal rules restrict any use of the information to criminally investigate or prosecute any alcohol or drug abuse patient.[facility] HospitalIn the event this information is protected by the Federal Confidentiality of Alcohol and Drug Abuse Patient Records regulations: The Federal rules restrict any use of the information to criminally investigate or prosecute any alcohol or drug abuse patient.[facility] HospitalIn the event this information is protected by the Federal Confidentiality of Alcohol and Drug Abuse Patient Records regulations: The Federal rules restrict any use of the information to criminally investigate or prosecute any alcohol or drug abuse patient.[facility] HospitalIn the event this information is protected by the Federal Confidentiality of Alcohol and Drug Abuse Patient Records regulations: The Federal rules restrict any use of the information to criminally investigate or prosecute any alcohol or drug abuse patient.[facility] HospitalIn the event this information is protected by the Federal Confidentiality of Alcohol and Drug Abuse Patient Records regulations: The Federal rules restrict any use of the information to criminally investigate or prosecute any alcohol or drug abuse patient.[facility] HospitalIn the event this information is protected by the Federal Confidentiality of Alcohol and Drug Abuse Patient Records regulations: The Federal rules restrict any use of the information to criminally investigate or prosecute any alcohol or drug abuse patient.[facility] HospitalIn the event this information is protected by the Federal Confidentiality of Alcohol and Drug Abuse Patient Records regulations: The Federal rules restrict any use of the information to criminally investigate or prosecute any alcohol or drug abuse patient.[facility] HospitalIn the event this information is protected by the Federal Confidentiality of Alcohol and Drug Abuse Patient Records regulations: The Federal rules restrict any use of the information to criminally investigate or prosecute any alcohol or drug abuse patient.[facility] HospitalIn the event this information is protected by the Federal Confidentiality of Alcohol and Drug Abuse Patient Records regulations: The Federal rules restrict any use of the information to criminally investigate or prosecute any alcohol or drug abuse patient.[facility] HospitalIn the event this information is protected by the Federal Confidentiality of Alcohol and Drug Abuse Patient Records regulations: The Federal rules restrict any use of the information to criminally investigate or prosecute any alcohol or drug abuse patient.[facility] HospitalIn the event this information is protected by the Federal Confidentiality of Alcohol and Drug Abuse Patient Records regulations: The Federal rules restrict any use of the information to criminally investigate or prosecute any alcohol or drug abuse patient.[facility] HospitalIn the event this information is protected by the Federal Confidentiality of Alcohol and Drug Abuse Patient Records regulations: The Federal rules restrict any use of the information to criminally investigate or prosecute any alcohol or drug abuse patient.[facility] Reason for Visit (unrecogniz ed section and content) Specialty Diagnoses / Procedures Referred By Contac t Referred To Contact [facility] Diagnoses Generalized weakness Falls frequently Procedures CONSULT TO PHYSICAL THERAPY PHYSICAL THERAPY EVALUATION HIGH COMPLEX 45 MINS Sharda Carl PA-C [address] [place] [address] [facility] [address] [place] [address] Referral ID Status Reason Start Date Expiration Date Visits Requested Visits Authorized [id number] Authorized PCP Requested Referral Auto-Generate d Referral 03/14/2022 03/14/2023 99 99 Reason Comments PT Progress Note Reason Comments Radiology CT Specialty Diagnoses / Procedures Referred By Contac t Referred To Contact CT IMAGING Diagnoses Rectal cancer (HCC) Procedures CT CHEST W IVCON DIAGNOSTIC COMPUTED TOMOGRAPHY THORAX W/CONTRAST Tameka Marshall, SAKINA.ENGRAVING OPERATOR [address] [place] [address] Ct Imaging Referral ID Status Reason Start Date Expiration Date V isits Requested Visits Authorized [id number] Closed Auto-Generate d Referral 11/14/2021 12/14/2022 1 [...] HIGH MDM 60-74 MINUTES Sharda Carl PA-C [address] [place] [address] Referral ID Status Reason Start Date Expiration Date V isi Requested Visits Authorized [id number] Closed PCP Requested Referral 02/04/2022 02/04/2023 1 [...] Reason Onset Date Comments Refill Request 05/16/2023 [facility] Plan of Care 05/16/2023 Reason Comments OT [...] DIAGNOSTIC COMPUTED TOMOGRAPHY THORAX W/CONTRAST Tameka Marshall, SAKINA.ENGRAVING OPERATOR [address] [place] [address] [place] [address] Referral ID Status Reason Start Date Expiration Date V isits Requested Visits Authorized [id number] Closed Auto-Generate d Referral 03/21/2022 04/20/2023 1 1 Specialty Diagnoses / Procedures Referred By Contac t Referred To Contact CT IMAGING Diagnoses Malignant neoplasm of rectum (HCC) Procedures CT ABD/PEL W IVCON CT ABD & PELVIS W/CONTRAST Sam Greenberg, DO [address] [place] [address] [place] [address] Referral ID Status Reason Start Date Expiration Date V isits Requested Visits Authorized [id number] Closed Auto-Generate d Referral 04/01/2023 04/30/2024 1 1 Specialty Diagnoses / Procedures Referred By Contac t Referred To Contact CT IMAGING Diagnoses Malignant neoplasm of rectum (HCC) Procedures CT CHEST W IVCON DIAGNOSTIC COMPUTED TOMOGRAPHY THORAX W/CONTRAST Sam Greenberg, DO [address] [place] [address] [place] [address] Referral ID Status Reason Start Date Expiration Date V isits Requested Visits Authorized [id number] Closed Auto-Generate d Referral 02/25/2023 03/26/2024 1 1 Specialty Diagnoses / Procedures Referred By Contac t Referred To Contact CT IMAGING Diagnoses Rectal cancer (HCC) Abnormal CT of the abdomen Procedures CT ABD/PEL W IVCON CT ABD & PELVIS W/CONTRAST Tameka Marshall, SAKINA.ENGRAVING OPERATOR [address] [place] [address] [place] [address] Referral ID Status Reason Start Date Expiration Date V isits Requested Visits Authorized [id number] Closed Auto-Generate d Referral 10/09/2022 11/08/2023 1 1 Specialty Diagnoses / Procedures Referred By Contac t Referred To Contact MR IMAGING Diagnoses Dementia without behavioral disturbance (HCC) Procedures MRI BRAIN WO IVCON MRI BRAIN BRAIN STEM W/O CONTRAST MATERIAL Mikhail Liu Jr., MD [address] [address] [place] [address] Referral ID Status Reason Start Date Expiration Date V isits Requested Visits Authorized [id number] Closed Auto-Generate d Referral 06/24/2022 07/24/2023 1 [address] Referral ID Status Reason Start Date Expiration Date V isits Requested Visits Authorized [id number] Closed Auto-Generate d Referral 04/01/2023 04/30/2024 1 1 Reason Comments swollen elbow X 1 week Reason Comments New Patient Evaluation Specialty Diagnoses / Procedures Referred By Contac t Referred To Contact Neurology Diagnoses Dementia, unspecified dementia severity, unspecified dementia type, unspecified whether behavioral, psychotic, or mood disturbance or anxiety (HCC) Procedures CONSULT TO NEUROLOGY OFFICE/OUTPATIENT [facility] 60-74 MINUTES Mikhail Liu Jr., MD [address] [facility] [address] [place] [address] Referral ID Status Reason Start Date Expiration Date V isits Requested Visits Authorized [id number] Closed PCP Requested Referral 06/30/2023 06/29/2024 1 [...] Chapincito Tomlin MD [address] [place] [address] Mr Imaging [place] [address] Referral ID Status Reason Start Date Expiration Date V isits Requested Visits Authorized [id number] Closed Auto-Generate d Referral 08/26/2023 09/24/2024 1 1 Care Teams (unrecognized sec tion and content) Foot Specialist Relationship Specialty Start Date End Date Vishal Jones MD [address] [place] [address] PCP - General Family Practice 09/25/17 Deborah Sabillon, ELIE Specialty Manager Of International Oncology 07/30/17 Clement Werner MD, [address] [place] [address] Physician Radiation Oncology 01/29/18 Vishal Jones MD [address] [place] [address] Home Care Physician Family Practice 08/17/20 Maye Gonzalez MD Consulting General Surgery 08/17/20 Dayna aMnn RN [address] [place], [place] [phone] Mandarin Tutor Post Acute Care 08/17/20 Maye Gonzalez MD Referring General Surgery 08/23/20 Foot Specialist Relationship Specialty Start Date End Date Vishal Jones MD [address] [place] [address] PCP - General Family Practice 09/25/17 Deborah Sabillon RN Specialty Manager Of International Oncology 07/30/17 Clement Werner MD, MD [address] [facility] [place] [address] Physician Radiation Oncology 01/29/18 Vishal Jones MD [address] [place] [address] Home Care Physician Family Practice 08/17/20 Maye Gonzalez MD Consulting General Surgery 08/17/20 Dayna Mann RN [address] [place], [place] [phone] Mandarin Tutor Post Acute Care 08/17/20 Maye Gonzalez MD Referring General Surgery 08/23/20 Foot Specialist Relationship Specialty Start Date End Date Vishal Jones MD [address] [facility] [place] [address] PCP - General Family Practice 09/25/17 Deborah Sabillon RN Specialty Manager Of International Oncology 07/30/17 Clement Werner MD, [address] [place] [address] Physician Radiation Oncology 01/29/18 Vishal Jones MD [address] [place] [address] Home Care Physician Family Practice 08/17/20 Maye Gonzalez MD Consulting General Surgery 08/17/20 Dayna Mann RN [address] [place] [address] Mandarin Tutor Post Acute Care 08/17/20 Maye Gonzalez MD Referring General Surgery 08/23/20 Foot Specialist Relationship Specialty Start Date End Date Vishal Jones MD [address] [place] [address] PCP - General Family Practice 09/25/17 Deborah Sabillon RN Specialty Manager Of International Oncology 07/30/17 Clement Werner MD, [address] [facility] [place] [address] Physician Radiation Oncology 01/29/18 Vishal Jones MD [address] [place] [address] Home Care Physician Family Practice 08/17/20 Maye Gonzalez MD Consulting General Surgery 08/17/20 Dayna Mann RN [address] [place], [place] [phone] Mandarin Tutor Post Acute Care 08/17/20 Maye Gonzalez MD Referring General Surgery 08/23/20 Foot Specialist Relationship Specialty Start Date End Date Vishal Jones MD [address] [place] [address] PCP - General Family Practice 09/25/17 Deborah Sabillon RN Specialty Manager Of International Oncology 07/30/17 Clement Werner MD, [address] [facility] [place] [address] Physician Radiation Oncology 01/29/18 Vishal Jones MD [address] [facility] [place] [address] Home Care Physician Family Practice 08/17/20 Maye Gonzalez MD Consulting General Surgery 08/17/20 Dayna Mann RN [address] [place] [address] Mandarin Tutor Post Acute Care 08/17/20 Maye Gonzalez MD Referring General Surgery 08/23/20 Foot Specialist Relationship Specialty Start Date End Date Vishal Jones MD [address] [place] [address] PCP - General Family Practice 09/25/17 Deborah Sabillon RN Specialty Manager Of International Oncology 07/30/17 Clement Werner MD, [address] [facility] [place] [address] Physician Radiation Oncology 01/29/18 Vishal Jones MD [address] [facility] [address] Home Care Physician Family Practice 08/17/20 Maye Gonzalez MD Consulting General Surgery 08/17/20 Dayna Mann RN [address] [place] [address] Mandarin Tutor Post Acute Care 08/17/20 Maye Gonzalez MD Referring General Surgery 08/23/20 Foot Specialist Relationship Specialty Start Date End Date Vishal Jones MD [address] [facility] [place] [address] PCP - General Family Practice 09/25/17 Deborah Sabillon RN Specialty Manager Of International Oncology 07/30/17 Clement Werner MD, MD [address] [place] [facility] [place] [address] Physician Radiation Oncology 01/29/18 Vishal Jones MD [address] [facility] [place] [address] Home Care Physician Family Practice 08/17/20 Maye Gonzalez MD Consulting General Surgery 08/17/20 Dayna Mann RN [address] [place] [address] Mandarin Tutor Post Acute Care 08/17/20 Maye Gonzalez MD Referring General Surgery 08/23/20 Foot Specialist Relationship Specialty Start Date End Date Vishal Jones MD [address] [facility] [place] [address] PCP - General Family Practice 09/25/17 Deborah Sabillon RN Specialty Manager Of International Oncology 07/30/17 Clement Werner MD, MD [address] [place] [place] [address] Physician Radiation Oncology 01/29/18 Vishal Jones MD [address] [facility] [place] [address] Home Care Physician Family Practice 08/17/20 Maye Gonzalez MD Consulting General Surgery 08/17/20 Dayna Mann RN [address] [place] [address] Mandarin Tutor Post Acute Care 08/17/20 Maye Gonzalez MD Referring General Surgery 08/23/20 Foot Specialist Relationship Specialty Start Date End Date Vishal Jones MD [address] [place] [address] PCP - General Family Practice 09/25/17 Deborah Sabillon RN Specialty Manager Of International Oncology 07/30/17 Clement Werner MD, MD [address] [place] [address] Physician Radiation Oncology 01/29/18 Vishal Jones MD [address] [place] [address] Home Care Physician Family Practice 08/17/20 Maye Gonzalez MD Consulting General Surgery 08/17/20 Dayna Mann RN [address] [place] [address] Mandarin Tutor Post Acute Care 08/17/20 Maye Gonzalez MD Referring General Surgery 08/23/20 Foot Specialist Relationship Specialty Start Date End Date Vishal Jones MD [address] [place] [address] PCP - General Family Practice 09/25/17 Deborah Sabillon RN Specialty Manager Of International Oncology 07/30/17 Clement Werner MD, MD [address] [place] [address] Physician Radiation Oncology 01/29/18 Vishal Jones MD [address] [place] [address] Home Care Physician Family Practice 08/17/20 Maye Gonzalez MD Consulting General Surgery 08/17/20 Dayna Mann RN [address] [place], [place] [phone] Mandarin Tutor Post Acute Care 08/17/20 Maye Gonzalez MD Referring General Surgery 08/23/20 Foot Specialist Relationship Specialty Start Date End Date Vishal Jones MD [address] [place] [address] PCP - General Family Practice 09/25/17 Deborah Sabillon RN Specialty Manager Of International Oncology 07/30/17 Clement Werner MD, MD [address] [place] [address] Physician Radiation Oncology 01/29/18 Vishal Jones MD [address] [place] [address] Home Care Physician Family Practice 08/17/20 Maye Gonzalez MD Consulting General Surgery 08/17/20 Dayna Mann RN [address] [place], [place] [phone] Mandarin Tutor Post Acute Care 08/17/20 Maye Gonzalez MD Referring General Surgery 08/23/20 Foot Specialist Relationship Specialty Start Date End Date Vishal Jones MD [address] [place] [address] PCP - General Family Practice 09/25/17 Deborah Sabillon RN Specialty Manager Of International Oncology 07/30/17 Clement Werner MD, [address] [place] [address] Physician Radiation Oncology 01/29/18 Vishal Jones MD [address] [place] [address] Home Care Physician Family Practice 08/17/20 Maye Gonzalez MD Consulting General Surgery 08/17/20 Dayna Mann RN [address] [place], [place] [phone] Mandarin Tutor Post Acute Care 08/17/20 Maye Gonzalez MD Referring General Surgery 08/23/20 Foot Specialist Relationship Specialty Start Date End Date Vishal Jones MD [address] [place] [address] PCP - General Family Practice 09/25/17 Deborah Sabillon RN Specialty Manager Of International Oncology 07/30/17 Clement Werner MD, [address] [facility] [place] [address] Physician Radiation Oncology 01/29/18 Vishal Jones MD [address] [place] [address] Home Care Physician Family Practice 08/17/20 Maye Gonzalez MD Consulting General Surgery 08/17/20 Dayna Mann RN [address] [place], [place] [phone] Mandarin Tutor Post Acute Care 08/17/20 Maye Gonzalez MD Referring General Surgery 08/23/20 Foot Specialist Relationship Specialty Start Date End Date Vishal Jones MD [address] [place] [address] PCP - General Family Practice 09/25/17 Deborah Sabillon RN Specialty Manager Of International Oncology 07/30/17 Clement Werner MD, [address] [place] [address] Physician Radiation Oncology 01/29/18 Vishal Jones MD [address] [place] [address] Home Care Physician Family Practice 08/17/20 Maye Gonzalez MD Consulting General Surgery 08/17/20 Dayna Mann RN [address] [place], [place] [phone] Mandarin Tutor Post Acute Care 08/17/20 Maye Gonzalez MD Referring General Surgery 08/23/20 Foot Specialist Relationship Specialty Start Date End Date Vishal Jones MD [address] [place] [address] PCP - General Family Practice 09/25/17 Deborah Sabillon RN Specialty Manager Of International Oncology 07/30/17 Clement Werner MD, [address] [place] [address] Physician Radiation Oncology 01/29/18 Vishal Jones MD [address] [place] [address] Home Care Physician Family Practice 08/17/20 Maye Gonzalez MD Consulting General Surgery 08/17/20 Dayna Mann RN [address] [place] [address] Mandarin Tutor Post Acute Care 08/17/20 Maye Gonzalez MD Referring General Surgery 08/23/20 Foot Specialist Relationship Specialty Start Date End Date Vishal Jones MD [address] [place] [address] PCP - General Family Practice 09/25/17 Deborah Sabillon RN Specialty Manager Of International Oncology 07/30/17 Clement Werner MD, [address] [facility] [place] [address] Physician Radiation Oncology 01/29/18 Vishal Jones MD [address] [facility] [place] [address] Home Care Physician Family Practice 08/17/20 Maye Gonzalez MD Consulting General Surgery 08/17/20 Dayna Mann RN [address] [place] [address] Mandarin Tutor Post Acute Care 08/17/20 Maye Gonzalez MD Referring General Surgery 08/23/20 Foot Specialist Relationship Specialty Start Date End Date Vishal Jones MD [address] [facility] [place] [address] PCP - General Family Medicine 09/25/17 Deborah Sabillon RN Specialty Manager Of International Oncology 07/30/17 Clement Werner MD, MD [address] [facility] [address] Physician Radiation Oncology 01/29/18 Vishal Jones MD [address] [facility] [place] [address] Home Care Provider Family Medicine 08/17/20 Maye Gonzalez MD Consulting General Surgery 08/17/20 Dayna Mann RN [address] [place], [place] [phone] Mandarin Tutor Post Acute Care 08/17/20 Maye Gonzalez MD Referring General Surgery 08/23/20 Foot Specialist Relationship Specialty Start Date End Date Vishal Jones MD [address] [place] [address] PCP - General Family Medicine 09/25/17 Deborah Sabillon RN Specialty Manager Of International Oncology 07/30/17 Clement Werner MD, MD [address] [place] [address] Physician Radiation Oncology 01/29/18 Vishal Jones MD [address] [facility] [place] [address] Home Care Provider Family Medicine 08/17/20 Maye Gonzalez MD Consulting General Surgery 08/17/20 Dayna Mann RN [address] [place] [address] Mandarin Tutor Post Acute Care 08/17/20 Maye Gonzalez MD Referring General Surgery 08/23/20 Foot Specialist Relationship Specialty Start Date End Date Vishal Jones MD [address] [place] [address] PCP - General Family Medicine 09/25/17 Deborah Sabillon RN Specialty Manager Of International Oncology 07/30/17 Clement Werner MD, [address] [place] [address] Physician Radiation Oncology 01/29/18 Vishal Jones MD [address] [place] [address] Home Care Provider Family Medicine 08/17/20 Maye Gonzalez MD Consulting General Surgery 08/17/20 Dayna Mann RN [address] [place], [place] [phone] Mandarin Tutor Post Acute Care 08/17/20 Maye Gonzalez MD Referring General Surgery 08/23/20 Foot Specialist Relationship Specialty Start Date End Date Vishal Jones MD [address] [place] [address] PCP - General Family Medicine 09/25/17 Deborah Sabillon RN Specialty Manager Of International Oncology 07/30/17 Clement Werner MD, MD [address] [place] [address] Physician Radiation Oncology 01/29/18 Vishal Jones MD [address] [place] [address] Home Care Provider Family Medicine 08/17/20 Maye Gonzalez MD Consulting General Surgery 08/17/20 Dayna Mann RN [address] [place], [place] [phone] Mandarin Tutor Post Acute Care 08/17/20 Maye Gonzalez MD Referring General Surgery 08/23/20 Foot Specialist Relationship Specialty Start Date End Date Vishal Jones MD [address] [place] [address] PCP - General Family Medicine 09/25/17 Deborah Sabillon RN Specialty Manager Of International Oncology 07/30/17 Clement Werner MD, [address] [place] [facility] [place] [address] Physician Radiation Oncology 01/29/18 Vishal Jones MD [address] [facility] [place] [address] Home Care Provider Family Medicine 08/17/20 Maye Gonzalez MD Consulting General Surgery 08/17/20 Dayna Mann RN [address] [place], [place] [phone] Mandarin Tutor Post Acute Care 08/17/20 Maye Gonzalez MD Referring General Surgery 08/23/20 Foot Specialist Relationship Specialty Start Date End Date Vishal Jones MD [address] [place] [address] PCP - General Family Medicine 09/25/17 Deborah Sabillon RN Specialty Manager Of International Oncology 07/30/17 Clement Werner MD, [address] [facility] [address] Physician Radiation Oncology 01/29/18 Vishal Jones MD [address] [facility] [place] [address] Home Care Provider Family Medicine 08/17/20 Maye Gonzalez MD [address] [place] [address] Consulting General Surgery 08/17/20 Dayna Mann RN [address] [place], [place] [phone] Mandarin Tutor Post Acute Care 08/17/20 Maye Gonzalez MD [address] [facility], [place] [address]871 Referring General Surgery 08/23/20 Foot Specialist Relationship Specialty Start Date End Date Vishal Jones MD [address] [facility] [place] [address] PCP - General Family Medicine 09/25/17 Deborah Sabillon RN Specialty Manager Of International Oncology 07/30/17 Clement Werner MD, MD [address] [place] [address] Physician Radiation Oncology 01/29/18 Vishal Jones MD [address] [facility] [place] [address] Home Care Provider Family Medicine 08/17/20 Maye Gonzalez MD [address] [place] [address] Consulting General Surgery 08/17/20 Dayna Mann RN [address] [place] [address] Mandarin Tutor Post Acute Care 08/17/20 Maye Gonzalez MD [address] [facility], [place] 879641 Referring General Surgery 08/23/20 Foot Specialist Relationship Specialty Start Date End Date Vishal Jones MD [address] [facility] [place] [address] PCP - General Family Medicine 09/25/17 Deborah Sabillon RN Specialty Manager Of International Oncology 07/30/17 Clement Werner MD, [address] [place] [address] Physician Radiation Oncology 01/29/18 Vishal Jones MD [address] [facility] [place] [address] Home Care Provider Family Medicine 08/17/20 Maye Gonzalez MD [address] [place] [address] Consulting General Surgery 08/17/20 Dayna Mann RN [address] [place] [address] Mandarin Tutor Post Acute Care 08/17/20 Maye Gonzalez MD [address] [place] [address] Referring General Surgery 08/23/20 Foot Specialist Relationship Specialty Start Date End Date Vishal Jones MD [address] [facility] [place] [address] PCP - General Family Medicine 09/25/17 Deborah Sabillon RN Specialty Manager Of International Oncology 07/30/17 Clement Werner MD, [address] [place] [address] Physician Radiation Oncology 01/29/18 Vishal Jones MD [address] [facility] [place] [address] Home Care Provider Family Medicine 08/17/20 Maye Gonzalez MD [address] [place] [address] Consulting General Surgery 08/17/20 Dayna Mann RN [address] [place] [address] Mandarin Tutor Post Acute Care 08/17/20 Maye Gonzalez MD [address] [place] [address] Referring General Surgery 08/23/20 Foot Specialist Relationship Specialty Start Date End Date Vishal Jones MD [address] [facility] [address] PCP - General Family Medicine 09/25/17 Deborah Sabillon RN Specialty Manager Of International Oncology 07/30/17 Clement Werner MD, [address] [place] [address] Physician Radiation Oncology 01/29/18 Vishal Jones MD [address] [facility] [address] Home Care Provider Family Medicine 08/17/20 Maye Gonzalez MD [address] [place] [address] Consulting General Surgery 08/17/20 Dayna Mann, ELIE [address] [place], [place] [phone] Mandarin Tutor Post Acute Care 08/17/20 Maye Gonzalez MD [address] [place] [address] Referring General Surgery 08/23/20 Foot Specialist Relationship Specialty Start Date End Date Vishal Jones MD [address] [facility] [address] PCP - General Family Medicine 09/25/17 Deborah Sabillon RN Specialty Manager Of International Oncology 07/30/17 Clement Werner MD, [address] [place] [address] Physician Radiation Oncology 01/29/18 Vishal Jones MD [address] [facility] [address] Home Care Provider Family Medicine 08/17/20 Maye Gonzalez MD [address] [place] [address] Consulting General Surgery 08/17/20 Dayna Mann RN [address] [place] [address] Mandarin Tutor Post Acute Care 08/17/20 Maye Gonzalez MD [address] [facility], [place] 56[address]11 Referring General Surgery 08/23/20 Foot Specialist Relationship Specialty Start Date End Date Vishal Jones MD [address] [place] [address] PCP - General Family Medicine 09/25/17 Deborah Sabillon RN Specialty Manager Of International Oncology 07/30/17 Clement Werner MD, MD [address] [place] [address] Physician Radiation Oncology 01/29/18 Vishal Jones MD [address] [facility] [address] Home Care Provider Family Medicine 08/17/20 Maye Gonzalez MD [address] [place] [address] Consulting General Surgery 08/17/20 Dayna Mann RN [address] [place] [address] Mandarin Tutor Post Acute Care 08/17/20 Maye Gonzalez MD [address] [place] [address] Referring General Surgery 08/23/20 Foot Specialist Relationship Specialty Start Date End Date Vishal Jones MD [address] [place] [address] PCP - General Family Medicine 09/25/17 Deborah Sabillon RN Specialty Manager Of International Oncology 07/30/17 Clement Werner MD, [address] [place] [address] Physician Radiation Oncology 01/29/18 Vishal Jones MD [address] [facility] [address] Home Care Provider Family Medicine 08/17/20 Maye Gonzalez MD [address] [place] [address] Consulting General Surgery 08/17/20 Dayna Mann RN [address] [facility], [place] [phone] Mandarin Tutor Post Acute Care 08/17/20 Maye Gonzalez MD [address] [place] [address] Referring General Surgery 08/23/20 Foot Specialist Relationship Specialty Start Date End Date Vishal Jones MD [address] [facility] [address] PCP - General Family Medicine 09/25/17 Deborah Sabillon RN Specialty Manager Of International Oncology 07/30/17 Clement Werner MD, [address] [place] [address] Physician Radiation Oncology 01/29/18 Vishal Jones MD [address] [place] [address] Home Care Provider Family Medicine 08/17/20 Maye Gonzalez MD [address] [place] [address] Consulting General Surgery 08/17/20 Dayna Mann RN [address] [place], [place] [phone] Mandarin Tutor Post Acute Care 08/17/20 Maye Gonzalez MD [address] [place] [address] Referring General Surgery 08/23/20 Foot Specialist Relationship Specialty Start Date End Date Vishal Jones MD [address] [place] [address] PCP - General Family Medicine 09/25/17 Deborah Sabillon RN Specialty Manager Of International Oncology 07/30/17 Clement Werner MD, [address] [place] [address] Physician Radiation Oncology 01/29/18 Vishal Jones MD [address] [place] [address] Home Care Provider Family Medicine 08/17/20 Maye Gonzalez MD [address] [place] [address] Consulting General Surgery 08/17/20 Dayna Mann, ELIE [address] [place], [place] [phone] Mandarin Tutor Post Acute Care 08/17/20 Maye Gonzalez MD [address] [place] [address] Referring General Surgery 08/23/20 Foot Specialist Relationship Specialty Start Date End Date Vishal Jones MD [address] [place] [address] PCP - General Family Medicine 09/25/17 Deborah Sabillon RN Specialty Manager Of International Oncology 07/30/17 Clement Werner MD, [address] [place] [address] Physician Radiation Oncology 01/29/18 Vishal Jones MD [address] [place] [address] Home Care Provider Family Medicine 08/17/20 Maye Gonzalez MD [address] [place], [place] 148231 Consulting General Surgery 08/17/20 Dayna Mann RN [address] [place] [address] Mandarin Tutor Post Acute Care 08/17/20 Maye Gonzalez MD [address] [place], [place] 328271 Referring General Surgery 08/23/20 Foot Specialist Relationship Specialty Start Date End Date Vishal Jones MD [address] [place] [address] PCP - General Family Medicine 09/25/17 Deborah Sabillon RN Specialty Manager Of International Oncology 07/30/17 Clement Werner MD, [address] [place] [address] Physician Radiation Oncology 01/29/18 Vishal Jones MD [address] [place] [address] Home Care Provider Family Medicine 08/17/20 Maye Gonzalez MD [address] [place], [place] 101611 Consulting General Surgery 08/17/20 Dayna Mann RN [address] [place] [address] Mandarin Tutor Post Acute Care 08/17/20 Maye Gonzalez MD [address] [place], [place] 231051 Referring General Surgery 08/23/20 Foot Specialist Relationship Specialty Start Date End Date Vishal Jones MD [address] [place] [address] PCP - General Family Medicine 09/25/17 Deborah Sabillon RN Specialty Manager Of International Oncology 07/30/17 Clement Werner MD, [address] [place] [address] Physician Radiation Oncology 01/29/18 Vishal Jones MD [address] [facility] [address] Home Care Provider Family Medicine 08/17/20 Maye Gonzalez MD [address] [place] [address] Consulting General Surgery 08/17/20 Dayna Mann RN [address] [place], [place] [phone] Mandarin Tutor Post Acute Care 08/17/20 Maye Gonzalez MD [address] [place] [address] Referring General Surgery 08/23/20 Foot Specialist Relationship Specialty Start Date End Date Vishal Jones MD [address] [facility] [address] PCP - General Family Medicine 09/25/17 Deborah Sabillon RN Specialty Manager Of International Oncology 07/30/17 Clement Werner MD, [address] [place] [address] Physician Radiation Oncology 01/29/18 Vishal Jones MD [address] [facility] [address] Home Care Provider Family Medicine 08/17/20 aMye Gonzalez MD [address] [place] [address] Consulting General Surgery 08/17/20 Dayna Mann RN [address] [place] [address] Mandarin Tutor Post Acute Care 08/17/20 Maye Gonzalez MD [address] [place], [place] 601601 Referring General Surgery 08/23/20 Foot Specialist Relationship Specialty Start Date End Date Vishal Jones MD [address] [place] [address] PCP - General Family Medicine 09/25/17 Deborah Sabillon RN Specialty Manager Of International Oncology 07/30/17 Clement Werner MD, [address] [facility] [place] [address] Physician Radiation Oncology 01/29/18 Vishal Jones MD [address] [place] [address] Home Care Provider Family Medicine 08/17/20 Maye Gonzalez MD [address] [place] [address] Consulting General Surgery 08/17/20 Dayna Mann, ELIE [address] [place], [place] [phone] Mandarin Tutor Post Acute Care 08/17/20 Maye Gonzalez MD [address] [place] [address] Referring General Surgery 08/23/20 Foot Specialist Relationship Specialty Start Date End Date Vishal Jones MD [address] [place] [address] PCP - General Family Medicine 09/25/17 Deborah Sabillon RN Specialty Manager Of International Oncology 07/30/17 Clement Werner MD, [address] [place] [address] Physician Radiation Oncology 01/29/18 Vishal Jones MD [address] [facility] [address] Home Care Provider Family Medicine 08/17/20 Maye Gonzalez MD [address] [place] [address] Consulting General Surgery 08/17/20 Dayna Mann RN [address] [place], [place] [phone] Mandarin Tutor Post Acute Care 08/17/20 Maye Gonzalez MD [address] [place] [address] Referring General Surgery 08/23/20 Foot Specialist Relationship Specialty Start Date End Date Vishal Jones MD [address] [facility] [address] PCP - General Family Medicine 09/25/17 Deborah Sabillon RN Specialty Manager Of International Oncology 07/30/17 Clement Werner MD, [address] [place] [address] Physician Radiation Oncology 01/29/18 Vishal Jones MD [address] [facility] [address] Home Care Provider Family Medicine 08/17/20 Maye Gonzalez MD [address] [place] [address] Consulting General Surgery 08/17/20 Dayna Mann RN [address] [place], [place] [phone] Mandarin Tutor Post Acute Care 08/17/20 Maye Gonzalez MD [address] [place] [address] Referring General Surgery 08/23/20 Foot Specialist Relationship Specialty Start Date End Date Vishal Jones MD [address] [place] [address] PCP - General Family Medicine 09/25/17 Deborah Sabillon RN Specialty Manager Of International Oncology 07/30/17 Clement Werner MD, MD [address] [place] [address] Physician Radiation Oncology 01/29/18 Vishal Jones MD [address] [place] [address] Home Care Provider Family Medicine 08/17/20 Maye Gonzalez MD [address] [place] [address] Consulting General Surgery 08/17/20 Dayna Mann, RN [address] [facility], [place] [phone] Mandarin Tutor Post Acute Care 08/17/20 Maye Gonzalez MD [address] [place] [address] Referring General Surgery 08/23/20 Foot Specialist Relationship Specialty Start Date End Date Vishal Jones MD [address] [facility] [address] PCP - General Family Medicine 09/25/17 Deborah Sabillon RN Specialty Manager Of International Oncology 07/30/17 Clement Werner MD, [address] [place] [address] Physician Radiation Oncology 01/29/18 Vishal Jones MD [address] [place] [address] Home Care Provider Family Medicine 08/17/20 Maye Gonzalez MD [address] [place] [address] Consulting General Surgery 08/17/20 Dayna Mann RN [address] [place] [address] Mandarin Tutor Post Acute Care 08/17/20 Maye Gonzalez MD [address] [place], [place] [address] Referring General Surgery 08/23/20 Foot Specialist Relationship Specialty Start Date End Date Vishal Jones MD [address] [place] [address] PCP - General Family Medicine 09/25/17 Deborah Sabillon RN Specialty Manager Of International Oncology 07/30/17 Clement Werner MD, MD [address] [place] [address] Physician Radiation Oncology 01/29/18 Vishal Jones MD [address] [place] [address] Home Care Provider Family Medicine 08/17/20 Maye Gonzalez MD [address] [place] [address] Consulting General Surgery 08/17/20 Dayna Mann RN [address] [place] [address] Mandarin Tutor Post Acute Care 08/17/20 Maye Gonzalez MD [address] [place] [address] Referring General Surgery 08/23/20 Foot Specialist Relationship Specialty Start Date End Date Vishal Jones MD [address] [place] [address] PCP - General Family Medicine 09/25/17 Deborah Sabillon RN Specialty Manager Of International Oncology 07/30/17 Clement Werner MD, MD [address] [place] [address] Physician Radiation Oncology 01/29/18 Vishal Jones MD [address] [place] [address] Home Care Provider Family Medicine 08/17/20 Maye Gonzalez MD [address] [place] [address] Consulting General Surgery 08/17/20 Dayna Mann, RN [address] [place], [place] [phone] Mandarin Tutor Post Acute Care 08/17/20 Maye Gonzalez MD [address] [address] Referring General Surgery 08/23/20 Foot Specialist Relationship Specialty Start Date End Date Vishal Jones MD [address] [place] [address] PCP - General Family Medicine 09/25/17 Deborah Sabillon RN Specialty Manager Of International Oncology 07/30/17 Clement Werner MD, MD [address] [place] [address] Physician Radiation Oncology 01/29/18 Vishal Jones MD [address] [place] [address] Home Care Provider Family Medicine 08/17/20 Maye Gonzalez MD [address] [place], [place] [address] Consulting General Surgery 08/17/20 Dayna Mann RN [address] [place] [address] Mandarin Tutor Post Acute Care 08/17/20 Maye Gonzalez MD [address] [place] [address] Referring General Surgery 08/23/20 Foot Specialist Relationship Specialty Start Date End Date Vishal Jones MD [address] [facility] [address] PCP - General Family Medicine 09/25/17 Deborah Sabillon RN Specialty Manager Of International Oncology 07/30/17 Clement Werner MD, [address] [place] [address] Physician Radiation Oncology 01/29/18 Vishal Jones MD [address] [facility] [address] Home Care Provider Family Medicine 08/17/20 Maye Gonzalez MD [address] [place] [address] Consulting General Surgery 08/17/20 Dayna Mann RN [address] [place] [address] Mandarin Tutor Post Acute Care 08/17/20 Maye Gonzalez MD [address] [place], [place] [address]31 Referring General Surgery 08/23/20 Foot Specialist Relationship Specialty Start Date End Date Vishal Jones MD [address] [facility] [place], [place] 46[address]01 PCP - General Family Medicine 09/25/17 Deborah Sabillon RN Specialty Manager Of International Oncology 07/30/17 Clement Werner MD, MD [address] [place] [address] Physician Radiation Oncology 01/29/18 Vishal Jones MD [address] [facility] [address] Home Care Provider Family Medicine 08/17/20 Maye Gonzalez MD [address] [place], [place] [address] Consulting General Surgery 08/17/20 Dayna Mann RN [address] [place], [place] [phone] Mandarin Tutor Post Acute Care 08/17/20 Maye Gonzalez MD [address] [facility] [address] Referring General Surgery 08/23/20 Foot Specialist Relationship Specialty Start Date End Date Vishal Jones MD [address] [place] [address] PCP - General Family Medicine 09/25/17 Deborah Sabillon RN Specialty Manager Of International Oncology 07/30/17 Clement Werner MD, MD [address] [place] [address] Physician Radiation Oncology 01/29/18 Vishal Jones MD [address] [place] [address] Home Care Provider Family Medicine 08/17/20 Maye Gonzalez MD [address] [place] [address] Consulting General Surgery 08/17/20 Dayna Mann, RN [address] [facility] [place] [phone] Mandarin Tutor Post Acute Care 08/17/20 Maye Gonzalez MD [address] [place] [address] Referring General Surgery 08/23/20 Foot Specialist Relationship Specialty Start Date End Date Vishal Jones MD [address] [place] [address] PCP - General Family Medicine 09/25/17 Deborah Sabillon RN Specialty Manager Of International Oncology 07/30/17 Clement Werner MD, [address] [place] [address] Physician Radiation Oncology 01/29/18 Vishal Jones MD [address] [place] [address] Home Care Provider Family Medicine 08/17/20 Maye Gonzalez MD [address] [place], [place] 964231 Consulting General Surgery 08/17/20 Dayna Mann RN [address] [facility] [place] [address] Mandarin Tutor Post Acute Care 08/17/20 Maye Gonzalez MD [address] [place] [address] Referring General Surgery 08/23/20 Foot Specialist Relationship Specialty Start Date End Date Vishal Jones MD [address] [place] [address] PCP - General Family Medicine 09/25/17 Deborah Sabillon RN Specialty Manager Of International Oncology 07/30/17 Clement Werner MD, [address] [place], [place] 633751 Physician Radiation Oncology 01/29/18 Vishal Jones MD [address] [place] [address] Home Care Provider Family Medicine 08/17/20 Maye Gonzalez MD [address] [place] [address] Consulting General Surgery 08/17/20 Dayna Mann RN [address] [place] [address] Mandarin Tutor Post Acute Care 08/17/20 Maye Gonzalez MD [address] [place], [place] 578941 Referring General Surgery 08/23/20 Foot Specialist Relationship Specialty Start Date End Date Vishal Jones MD [address] [place], [place] 493431 PCP - General Family Medicine 09/25/17 Deborah Sabillon RN Specialty Manager Of International Oncology 07/30/17 Clement Werner MD, MD [address] [place] [address] Physician Radiation Oncology 01/29/18 Vishal Jones MD [address] [facility] [place] [address] Home Care Provider Family Medicine 08/17/20 Maye Gonzalez MD [address] [place] [address] Consulting General Surgery 08/17/20 Dayna Mann RN [address] [place], [place] [phone] Mandarin Tutor Post Acute Care 08/17/20 Maye Gonzalez MD [address] [place] [address] Referring General Surgery 08/23/20 Foot Specialist Relationship Specialty Start Date End Date Vishal Jones MD [address] [place] [address] PCP - General Family Medicine 09/25/17 Deborah Sabillon RN Specialty Manager Of International Oncology 07/30/17 Clement Werner MD, MD [address] [place] [address] Physician Radiation Oncology 01/29/18 Vishal Jones MD [address] [facility] [place] [address] Home Care Provider Family Medicine 08/17/20 Maye Gonzalez MD [address] [place], [place] 4829[address] Consulting General Surgery 08/17/20 Dayna Mann RN [address] [place] [address] Mandarin Tutor Post Acute Care 08/17/20 Maye Gonzalez MD [address] [place] [address] Referring General Surgery 08/23/20 Foot Specialist Relationship Specialty Start Date End Date Vishal Jones MD [address] [place] [address] PCP - General Family Medicine 09/25/17 Deborah Sabillon RN Specialty Manager Of International Oncology 07/30/17 Clement Werner MD, [address] [place] [address] Physician Radiation Oncology 01/29/18 Vishal Jones MD [address] [facility] [place] [address] Home Care Provider Family Medicine 08/17/20 Maye Gnozalez MD [address] [place] [address] Consulting General Surgery 08/17/20 Dayna Mann RN [address] [place] [address] Mandarin Tutor Post Acute Care 08/17/20 Maye Gonzalez MD [address] [place], [place] [address]41 Referring General Surgery 08/23/20 Foot Specialist Relationship Specialty Start Date End Date Vishal Jones MD [address] [facility] [place] [address] PCP - General Family Medicine 09/25/17 Deborah Sabillon RN Specialty Manager Of International Oncology 07/30/17 Clement Werner MD, [address] [place] [address] Physician Radiation Oncology 01/29/18 Vishal Jones MD [address] [place] [place] [address] Home Care Provider Family Medicine 08/17/20 Maye Gonzalez MD [address] [place] [address] Consulting General Surgery 08/17/20 Dayna Mann, RN [address] [facility], [place] [id number] Mandarin Tutor Post Acute Care 08/17/20 Maye Gonzalez MD [address] [address] Referring General Surgery 08/23/20 Foot Specialist Relationship Specialty Start Date End Date Vishal Jones MD [address] [facility] [place] [address] PCP - General Family Medicine 09/25/17 Deborah Sabillon RN Specialty Manager Of International Oncology 07/30/17 Clement Werner MD, MD [address] [place] [address] Physician Radiation Oncology 01/29/18 Vishal Jones MD [address] [facility] [place] [address] Home Care Provider Family Medicine 08/17/20 Maye Gonzalez MD [address] [place], [place] 943931 Consulting General Surgery 08/17/20 Dayna Mann RN [address] [place] [address] Mandarin Tutor Post Acute Care 08/17/20 Maye Gonzalez MD [address] [place], [place] 812351 Referring General Surgery 08/23/20 Foot Specialist Relationship Specialty Start Date End Date Vishal Jones MD [address] [facility] [place] [address] PCP - General Family Medicine 09/25/17 Deborah Sabillon RN Specialty Manager Of International Oncology 07/30/17 Clement Werner MD, MD [address] [place] [address] Physician Radiation Oncology 01/29/18 Vishal Jones MD [address] [place] [address] Home Care Provider Family Medicine 08/17/20 Maye Gonzalez MD [address] [place] [address] Consulting General Surgery 08/17/20 Dayna Mann RN [address] [place] [address] Mandarin Tutor Post Acute Care 08/17/20 Maye Gonzalez MD [address] [place], [place] [address]481 Referring General Surgery 08/23/20 Foot Specialist Relationship Specialty Start Date End Date Vishal Jones MD [address] [facility] [place], [place] [address]841 PCP - General Family Medicine 09/25/17 Deborah Sabillon RN Specialty Manager Of International Oncology 07/30/17 Clement Werner MD, MD [address] [facility] [place] [address] Physician Radiation Oncology 01/29/18 Vishal Jones MD [address] [facility] [place] [address] Home Care Provider Family Medicine 08/17/20 Maye Gonzalez MD [address] [place] [place] [address] Consulting General Surgery 08/17/20 Dayna Mann, RN [address] [place], [place] [phone] Mandarin Tutor Post Acute Care 08/17/20 Maye Gonzalez MD [address] [facility] [place] [address]551 Referring General Surgery 08/23/20 Foot Specialist Relationship Specialty Start Date End Date Vishal Jones MD [address] [facility] [place] [address] PCP - General Family Medicine 09/25/17 Deborah Sabillon RN Specialty Manager Of International Oncology 07/30/17 Clement Werner MD, [address] [facility] [place] [address] Physician Radiation Oncology 01/29/18 Vishal Jones MD [address] [facility] [place] [address] Home Care Provider Family Medicine 08/17/20 Maye Gonzalez MD [address] [place], [place] [address]65181 Consulting General Surgery 08/17/20 Dayna Mann RN [address] [facility] [address] Mandarin Tutor Post Acute Care 08/17/20 Maye Gonzalez MD [address] [place] [address] Referring General Surgery 08/23/20 Foot Specialist Relationship Specialty Start Date End Date Vishal Jones MD [address] [facility] [place] [address] PCP - General Family Medicine 09/25/17 Deborah Sabillon RN Specialty Manager Of International Oncology 07/30/17 Clement Werner MD, MD [address] [place] [address] Physician Radiation Oncology 01/29/18 Vishal Jones MD [address] [facility] [place] [address] Home Care Provider Family Medicine 08/17/20 Maye Gonzalez MD [address] [place] [address] Consulting General Surgery 08/17/20 Dayna Mann RN [address] [facility] [address] Mandarin Tutor Post Acute Care 08/17/20 Maye Gonzalez MD [address] [place], [place] [address] Referring General Surgery 08/23/20 Foot Specialist Relationship Specialty Start Date End Date Vishal Jones MD [address] [facility] [place], [place] [address] PCP - General Family Medicine 09/25/17 Deborah Sabillon RN Specialty Manager Of International Oncology 07/30/17 Clement Werner MD, MD [address] [place], [place] [address] Physician Radiation Oncology 01/29/18 Vishal Jones MD [address] [facility] [place], [place] 48[address]41 Home Care Provider Family Medicine 08/17/20 Maye Gonzalez MD [address] [place] [place], [place] [address] Consulting General Surgery 08/17/20 Dayna Mann RN [address] [facility], [place] [phone] Mandarin Tutor Post Acute Care 08/17/20 Maye Gonzalez MD [address] [place] [address] Referring General Surgery 08/23/20 Foot Specialist Relationship Specialty Start Date End Date Vishal Jones MD [address] [facility] [place], [place] [address]051 PCP - General Family Medicine 09/25/17 Deborah Sabillon RN Specialty Manager Of International Oncology 07/30/17 Clement Werner MD, MD [address] [place] [address] Physician Radiation Oncology 01/29/18 Vishal Jones MD [address] [place] [address] Home Care Provider Family Medicine 08/17/20 Maye Gonzalez MD [address] [place] [address] Consulting General Surgery 08/17/20 Dayna Mann RN [address] [place], [place] [phone] Mandarin Tutor Post Acute Care 08/17/20 Maye Gonzalez MD [address] [place] [address] Referring General Surgery 08/23/20 Foot Specialist Relationship Specialty Start Date End Date Vishal Jones MD [address] [place] [address] PCP - General Family Medicine 09/25/17 Deborah Sabillon RN Specialty Manager Of International Oncology 07/30/17 Clement Werner MD, MD [address] [place] [address] Physician Radiation Oncology 01/29/18 Vishal Jones MD [address] [place] [address] Home Care Provider Family Medicine 08/17/20 Maye Gonzalez MD [address] [place], [place] 484161 Consulting General Surgery 08/17/20 Dayna Mann RN [address] [place] [address] Mandarin Tutor Post Acute Care 08/17/20 Maye Gonzalez MD [address] [place] [address] Referring General Surgery 08/23/20 Roxana Davis LISW [address] [place] [address] Diagnostics Sales Developer Hematology/Oncology 07/23/23 Foot Specialist Relationship Specialty Start Date End Date Vishal Jones MD [address] [facility] [place] [address] PCP - General Family Medicine 09/25/17 Deborah Sabillon RN Specialty Manager Of International Oncology 07/30/17 Clement Werner MD, MD [address] [place] [address] Physician Radiation Oncology 01/29/18 Vishal Jones MD [address] [facility] [place] [address] Home Care Provider Family Medicine 08/17/20 Maye Gonzalez MD [address] [place] [address] Consulting General Surgery 08/17/20 Dayna Mann RN [address] [place] [address] Mandarin Tutor Post Acute Care 08/17/20 Maye Gonzalez MD [address] [place] [address] Referring General Surgery 08/23/20 Roxana Davis LISW [address] [place] [address] Diagnostics Sales Developer Hematology/Oncology 07/23/23 Foot Specialist Relationship Specialty Start Date End Date Vishal Jones MD [address] [facility] [address] PCP - General Family Medicine 09/25/17 Deborah Sabillon, RN Specialty Manager Of International Oncology 07/30/17 Clement Werner MD, [address] [facility], [place] [address] Physician Radiation Oncology 01/29/18 Vishal Jones MD [address] [facility] [place], [place] [address] Home Care Provider Family Medicine 08/17/20 Maye Gonzalez MD [address] [place] [address] Consulting General Surgery 08/17/20 Dayna Mann, ELIE [address] [place], [place] [address] Mandarin Tutor Post Acute Care 08/17/20 Maye Gonzalez MD [address] [place] [address] Referring General Surgery 08/23/20 Roxana Davis LISW [address] [place] [address] Diagnostics Sales Developer Hematology/Oncology 07/23/23 Foot Specialist Relationship Specialty Start Date End Date Vishal Jones MD [address] [facility] [address] PCP - General Family Medicine 09/25/17 Deborah Sabillon, RN Specialty Manager Of International Oncology 07/30/17 Clement Werner MD [address] [place] [address] Physician Radiation Oncology 01/29/18 Vishal Jones MD [address] [facility] [place], [place] [address] Home Care Provider Family Medicine 08/17/20 Maye Gonzalez MD [address] [place], [place] [address] Consulting General Surgery 08/17/20 Dayna Mann, ELIE [address] [place], [place] [address] Mandarin Tutor Post Acute Care 08/17/20 Maye Gonzalez MD [address] [place] [address] Referring General Surgery 08/23/20 Roxana Davis LISW [address] [place] [address] Diagnostics Sales Developer Hematology/Oncology 07/23/23 Foot Specialist Relationship Specialty Start Date End Date Vishal Jones MD [address] [facility] [address] PCP - General Family Medicine 09/25/17 Deborah Sabillon RN Specialty Manager Of International Oncology 07/30/17 Clement Werner MD [address] [place] [address] Physician Radiation Oncology 01/29/18 Vishal Jones MD [address] [facility] [place] [address]41 Home Care Provider Family Medicine 08/17/20 Maye Gonzalez MD [address] [place], [place] 669[address] Consulting General Surgery 08/17/20 Dayna Mann, ELIE [address] [place] [address] Mandarin Tutor Post Acute Care 08/17/20 Maye Gonzalez MD [address] [place] [address] Referring General Surgery 08/23/20 Roxana Davis LISW [address] [place] [address] Diagnostics Sales Developer Hematology/Oncology 07/23/23 Foot Specialist Relationship Specialty Start Date End Date Vishal Jones MD [address] [facility] [place] [address] PCP - General Family Medicine 09/25/17 Deborah Sabillon RN Specialty Manager Of International Oncology 07/30/17 Clement Werner MD [address] [place] [address] Physician Radiation Oncology 01/29/18 Vishal Jones MD [address] [facility] [address] Home Care Provider Family Medicine 08/17/20 Maye Gonzalez MD [address] [place] [address] Consulting General Surgery 08/17/20 Dayna Mann RN [address] [place], [place] 3335731 Mandarin Tutor Post Acute Care 08/17/20 Maye Gonzalez MD [address] [place] [address] Referring General Surgery 08/23/20 Roxana Davis LISW [address] [place] [address] Diagnostics Sales Developer Hematology/Oncology 07/23/23 Foot Specialist Relationship Specialty Start Date End Date Vishal Jones MD [address] [facility] [place], [place] [address]71 PCP - General Family Medicine 09/25/17 Deborah Sabillon, RN Specialty Manager Of International Oncology 07/30/17 Clement Werner MD [address] [facility], [place] 372871 Physician Radiation Oncology 01/29/18 Vishal Jones MD [address] [place], [place] 870771 Home Care Provider Family Medicine 08/17/20 Maye Gonzalez MD [address] [place] [address] Consulting General Surgery 08/17/20 Dayna Mann RN [address] [place], [place] [phone] Mandarin Tutor Post Acute Care 08/17/20 Maye Gonzalez MD [address] [place], [place] 783721 Referring General Surgery 08/23/20 Roxana Davis LISW [address] [place] [address] Diagnostics Sales Developer Hematology/Oncology 07/23/23 Foot Specialist Relationship Specialty Start Date End Date Vishal Jones MD [address] [facility] [address] PCP - General Family Medicine 09/25/17 Deborah Sabillon, RN Specialty Manager Of International Oncology 07/30/17 Clement Werner MD [address] [place], [place] 692581 Physician Radiation Oncology 01/29/18 Vishal Jones MD [address] [facility] [place], [place] 254091 Home Care Provider Family Medicine 08/17/20 Maye Gonzalez MD [address] [place], [place] 2069[address] Consulting General Surgery 08/17/20 Dayna Mann, ELIE [address] [place], [place] [phone] Mandarin Tutor Post Acute Care 08/17/20 Maye Gonzalez MD [address] [place] [address] Referring General Surgery 08/23/20 Roxana Davis LISW [address] [place] [address] Diagnostics Sales Developer Hematology/Oncology 07/23/23 Foot Specialist Relationship Specialty Start Date End Date Vishal Jones MD [address] [place], [place] 335741 PCP - General Family Medicine 09/25/17 Deborah Sabillon RN Specialty Manager Of International Oncology 07/30/17 Clement Werner MD [address] [place] [address] Physician Radiation Oncology 01/29/18 Vishal Jones MD [address] [facility] [place], [place] 8[address] Home Care Provider Family Medicine 08/17/20 Maye Gonzalez MD [address] [place], [place] 5927[address] Consulting General Surgery 08/17/20 Dayna Mann RN [address] [place] [address] Mandarin Tutor Post Acute Care 08/17/20 Maye Gonzalez MD [address] [place], [place] 458511 Referring General Surgery 08/23/20 Roxana Davis LISW [address] [place] [address] Diagnostics Sales Developer Hematology/Oncology 07/23/23 FOR RECORDS PERTAINING TO PATIENTS [...] BE BASED ON THE PRIMARY CLINICAL RECORDS. [facility] [employer] [facility]. provides no warranty or guarantee of the accuracy or completeness of information in this document.
[2023-11-14] MEDS: 0.9% Saline Lock 10 ML Syringe IV (03:18)
[2023-11-14] MEDS: 0.9% Normal Saline (1000mL) 1,000 ML 125 ML IV (03:18)
[2023-11-14 03:21] LABS: Absolute Neutrophil Count 6.2 X10^3/uL (2.0-7.7); Basophil# 0.02 X10^3/uL; Basophil% 0.2 % (0-1); Eosinophil# 0.06 X10^3/uL; Eosinophils% 0.7 % (0-5); Hematocrit 32.4 % (40-54); Hemoglobin 10.3 g/dL (13.0-16.5); Lymphocyte % 12.3 % (19-41); Mean Corp Hgb Conc 31.8 g/dL (32-36); Mean Corpuscular Hgb 28.9 pg (27.0-32.0); Mean Platelet Vol. 8.5 fl (6.2-12.0); Monocyte# 0.76 X10^3/uL; Monocyte% 9.4 % (0-10); NRBC Flagged by Analyzer 0 % (0-5); Neutrophil # 6.24 X10^3/uL (2.7-7.7); Neutrophil % 76.9 % (47-70); Platelet Count 225 K/mm3 (150-450); RBC Distribution Width CV 14.4 % (11.6-14.6); RBC Distribution Width SD 48.6 fl (35.1-43.9); Red Blood Count 3.56 M/mm3 (4.6-6.2); White Blood Count 8.1 K/mm3 (4.4-11.0)
[2023-11-14 03:57] LABS: ALB/GLOB Ratio 0.9 RATIO (0.9-2.4); AST(SGOT) 46 U/L (15-37); Alanine Aminotransfer ALT/SGPT 33 U/L (16-61); Albumin, Serum 2.9 g/dL (3.2-5.0); Alkaline Phosphatase 128 U/L (45-117); Anion Gap 6 (5-15); BUN 20 mg/dL (7-18); BUN/Creat Ratio 21.5 RATIO (10-20); CPK Total, Creatine Kinase 1368 U/L (39-308); Calcium,Total 8.9 mg/dL (8.5-10.1); Chloride 111 mmol/L (98-107); Creatinine, Serum 0.93 mg/dL (0.70-1.30); EST Glomerular Filtration Rate 82 mL/min (>60); Est Glom Filt Rate - Afr Amer 99 mL/min (>60); Estimated Creatinine Clearance 55.28 ml/min; Globulin 3.4 g/dL (2.2-4.2); Glucose 87 mg/dL (74-106); Phosphorus 2.3 mg/dL (2.5-4.9); Potassium 3.9 mmol/L (3.5-5.1); Protein, Total 6.3 g/dL (6.4-8.2); Sodium Level 141 mmol/L (136-145)
[2023-11-14 04:04] LABS: Amphetamine Urine VISTA NEGATIVE (<1000 ng/mL); Barbiturate Urine VISTA NEGATIVE (< 200 ng/mL); Benzodiazepine Urine VISTA NEGATIVE (< 200 ng/mL); Cocaine Urine VISTA NEGATIVE (< 300 ng/mL); Ecstacy Urine VISTA POSITIVE (< 500 ng/mL); Methadone Urine VISTA NEGATIVE (< 300 ng/mL); PCP Urine VISTA NEGATIVE (< 25 ng/mL); THC Urine VISTA NEGATIVE (< 50 ng/mL); Vista UDS pH Range 7
[2023-11-14 04:16] LABS: Alcohol, Blood (Medical)-Serum < 3.0 mg/dL
[2023-11-14] MEDS: Gabapentin 100 MG Capsule PO ×3 (06:20→21:52)
--- NOTE | 2023-11-14 06:59 | PN.HOSP_ITS ---
Reason for Visit Reason for Visit: Fall/loss of consciousness Subjective Subjective Mr. Hagen is an 83-year-old white male who presented to emergency department early this morning on 11/14/2023 after sustaining a fall with loss of consciousness and prolonged downtime. He had a recent admission here from 10/31/2023 through 11/01/2023 at which time he had an MRI that revealed a small foci of acute infarct in the left and right occipital white matter. And sylvestertahira conrad was doing okay when he was discharged home however early on the evening of presentation around sense that he became unsteady and lost his balance from a standing position while attempting to lean forward on his cane and subsequently struck his head. There is documentation that he did lose consciousness he felt temporarily and was on the floor for a long time. He typically has a bagman/woman however she was not present around the time of his fall. He takes aspirin daily but no other anticoagulation. He reported that once he woke up on the floor he was able to activate EMS and was brought in for further evaluation. Vital signs on presentation showed temperature of 97.2, heart rate was 89, blood pressure was 126/69, respiratory rate 16 oxygen saturations have been 93 to 98% on room air. His CBC showed a normal white count with a chronic stable anemia showing hemoglobin of 11.2 and normal platelets. He did have a mild left shift. His chemistry panel was overtly unremarkable but his initial CK was 1000. CT of the brain had no acute intracranial finding. Lumbar spine x-rays demonstrated a 20% superior endplate compression deformity at L1 that was new but age- indeterminate, grade 1 anterior listhesis of L4 on L5 and facet arthropathy throughout the lumbar spine with moderate loss of disc height at L5-S1 and small endplate osteophytes throughout the lumbar spine. Abdomen had nonobstructive Bowel gas pattern. Pelvic x-ray demonstrated no significant abnormalities. He was admitted to the medical floor with a diagnosis of rhabdo myelosis and placed on aggressive volume resuscitation to treat this. PT and OT were consulted for evaluation. There is concern that with his recent stroke and balance issues he may need placement at discharge. Patient was reevaluated later on 11/14/2023 after getting to the medical floor. Patient is sleeping soundly this morning and appears very comfortable. He was up quite late. Nursing states he has been appropriate not having any issues. Objective Data Objective Data Vital Signs: Vital Signs Temp Pulse Resp BP Pulse Ox O2 Del Method 97.6 F L 92 18 126/74 H 98 Room Air 11/14/23 03:09 11/14/23 03:09 11/14/23 03:09 11/14/23 03:09 11/14/23 03:09 11/14/23 03:15 Oxygen Delivery Method Room Air Weight: 73.6 kg Body Mass Index (BMI) 25.4 Intake & Output: Intake and Output for Last 24 Hours 11/12/23 11/13/23 11/14/23 23:59 23:59 23:59 Intake Total 1150 / 1150 Output Total 175 / 175 Balance 975 / 975 Lab / Micro Data 11/14/23 03:15 11/14/23 03:15 Labs: Laboratory Results - last 24 hr 11/14/23 00:15: WBC 9.5, RBC 3.76 L, Hgb 11.2 L, Hct 34.1 L, MCV 90.7, MCH 29.8, MCHC 32.8, RDW Std Deviation 48.3 H, RDW Coeff of Kathryn 14.6, Plt Count 252, MPV 8.8, Immature Gran % (Auto) 0.500, Neut % (Auto) 84.9 H, Lymph % (Auto) 6.2 L, [place] % (Auto) 7.7, Eos % (Auto) 0.5, Baso % (Auto) 0.2, Absolute Neuts (auto) 8.0 H, Absolute Lymphs (auto) 0.59 L, Nucleated RBC % 0, Sodium 137, Potassium 4.0, Chloride 106, Carbon Dioxide 25.0, Anion Gap 6, BUN 23 H, Creatinine 1.14, Estim Creat Clear Calc 45.10, Est GFR (MDRD) Af Amer 79, Est GFR (MDRD) Non-Af 65, BUN/Creatinine Ratio 20.2 H, Glucose 92, Calcium 9.6, Total Creatine Kinase 1000 H 11/14/23 03:15: WBC 8.1, RBC 3.56 L, Hgb 10.3 L, Hct 32.4 L, MCV 91.0, MCH 28.9, MCHC 31.8 L, RDW Std Deviation 48.6 H, RDW Coeff of Kathryn 14.4, Plt Count 225, MPV 8.5, Immature Gran % (Auto) 0.500, Neut % (Auto) 76.9 H, Lymph % (Auto) 12.3 L, [place] % (Auto) 9.4, Eos % (Auto) 0.7, Baso % (Auto) 0.2, Absolute Neuts (auto) 6.2, Absolute Lymphs (auto) 1.00, Nucleated RBC % 0, Sodium 141, Potassium 3.9, Chloride 111 H, Carbon Dioxide 24.0, Anion Gap 6, BUN 20 H, Creatinine 0.93, Estim Creat Clear Calc 55.28, Est GFR (MDRD) Af Amer 99, Est GFR (MDRD) Non-Af 82, BUN/Creatinine Ratio 21.5 H, Glucose 87, Calcium 8.9, Phosphorus 2.3 L, Magnesium 2.0, Total Bilirubin 0.50, AST 46 H, ALT 33, Alkaline Phosphatase 128 H, Total Creatine Kinase 1368 H, Total Protein 6.3 L, Albumin 2.9 L, Globulin 3.4, Albumin/Globulin Ratio 0.9 11/14/23 03:45: Urine Opiates Screen NEGATIVE, Urine Methadone Screen NEGATIVE, Ur Barbiturates Screen NEGATIVE, Ur Phencyclidine Scrn NEGATIVE, Ur Amphetamines Screen NEGATIVE, MDMA (Ecstasy) Screen POSITIVE H, U Benzodiazepines Scrn NEGATIVE, Urine Cocaine Screen NEGATIVE, U Cannabinoids Screen NEGATIVE, Ur Drug Screen Comment , Ethyl Alcohol < 3.0 Radiography Diagnostic Testing: Radiology Impression Brain CT 11/14/23 00:23 IMPRESSION: No acute intracranial finding. Electronically Signed: Kole Donato MD at 0:51 EST Reading Location ID and State: [facility] / [place] Tel , Service support , Lumbar Spine X-Ray 11/14/23 00:23 IMPRESSION: * New, age indeterminant superior endplate compression fracture of L2 resulting in 10-20% height loss. * Lumbar spondylosis as described. Electronically Signed: Kole Donato MD at 1:03 EST Reading Location ID and State: [facility] / [place] Tel , Service support , Pelvis X-Ray 11/14/23 00:23 IMPRESSION: No evidence of displaced pelvic or hip fracture. Electronically Signed: Kole Donato MD at 1:00 EST Reading Location ID and State: [facility] Tel , Service support , Assessment & Plan Assessment/Plan (1) Rhabdomyolysis: QUALIFIERS: Encounter type: initial encounter Rhabdomyolysis type: traumatic Qualified Code(s): T79.6XXA - Traumatic ischemia of muscle, initial encounter (2) Fall at home: QUALIFIERS: Encounter type: initial encounter Qualified Code(s): W19.XXXA - Unspecified fall, initial encounter; Y92.009 - Unspecified place in unspecified non-institutional (private) residence as the place of occurrence of the external cause (3) Recent cerebrovascular accident (CVA): (4) Closed compression fracture of lumbar vertebra: QUALIFIERS: Encounter type: initial encounter Lumbar vertebra fracture level: L2 Qualified Code(s): S32.020A - Wedge compression fracture of second lumbar vertebra, initial encounter for closed fracture PLAN: Plan Rhabdomyolysis -CK is still trending up and this morning was up from [id number] -will continue IV fluids but decrease rate from 125 cc/h to 75 cc/h due to age and comorbidities -Renal function remains normal -Repeat CK in a.m. Fall with LOC -Fall appears to be mechanical and LOC from hitting his head -CT of the brain is unremarkable -PT/OT consultation -Patient with recent stroke -Case management and social work consultation -Patient may need placement for ongoing rehab services-if this is the case he would need a 3 midnight hospitalization Influenza A infection/?CAP -Was diagnosed on Friday -Is out of the window for Tamiflu -Outpatient primary care physician started the patient on doxycycline and he had 2 days of treatment--> will continue for another 3 days -Currently on room air -Continue supportive care -Incentive spirometry L2 superior endplate compression fracture -20% height loss -Continue with Lidoderm -Will schedule Tylenol 1 g every 8 hours -Discontinue IV morphine and transition low-dose oxycodone for pain relief -Patient is already on buprenorphine and and gabapentin so we will continue -PT/OT consultation Recent stroke -MRI on 10/30/2023 demonstrated small foci of acute infarct in the left and right occipital white matter -Patient has had increasingly poor balance and frequent falls since going home -PT/OT consultation -Echocardiogram at that time demonstrated an EF of 70% with no diastolic dysfunction and no positive bubble study -Continue aspirin -Continue risk factor modifications Nonobstructive CAD/HTN/HPL -Continue home aspirin -Continue home atorvastatin -Continue home isosorbide mononitrate -Restart home atenolol if verified BPH with obstruction/history of prostate cancer -Continue home Flomax -Will restart home Proscar if verified -Prostate cancer was treated with radiation -Continue outpatient follow-up History of colon cancer -Status post colectomy with colostomy -No current issues Overactive bladder -Stable -Would recommend patient stay off oxybutynin since this can increase fall risk History of nephrolithiasis -No current issues History of alcohol abuse -Patient reports he has been sober for the last 3 months Depression/anxiety -Continue home mirtazapine -Continue home hydroxyzine--> this could be contributing to fall risk as well -Continue home Wellbutrin DVT prophylaxis -Lovenox 40 mg daily CODE STATUS -DNR CCA with no intubation
--- NOTE | 2023-11-14 08:27 | NURSING ---
old buprenorhine patch removed. flushed down toilet with Ruthann DELGADILLO as a witness
[2023-11-14] MEDS: Acetaminophen 500 MG Tablet 1000 MG PO ×3 (08:28→21:51)
[2023-11-14] MEDS: Buprenorphine 10 MCG PATCH.TDWK 1 PATCH TD (08:29)
[2023-11-14] MEDS: Enoxaparin 40 MG/0.4 ML Syringe SC (08:30)
[2023-11-14] MEDS: Finasteride 5 MG Tablet PO (08:30)
[2023-11-14] MEDS: Lidocaine 5% Patch 2 PATCH TOPICAL (08:31)
[2023-11-14] MEDS: buPROPion (SR) 150 MG Tablet.SA PO ×2 (08:31→21:52)
[2023-11-14] MEDS: Tolterodine Tartrate 2 MG CAP.SA PO (08:31)
[2023-11-14] MEDS: Isosorbide Mononitrate 60 MG Tablet PO (08:31)
[2023-11-14] MEDS: Aspirin E.C. 81 MG Tablet PO (08:31)
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
--- NOTE | 2023-11-14 11:56 | CASEMGMT ---
Social Work RNCM updated SW that after therapy and conversation with RNCM, pt would like to go to [facility] Inpatient Rehab. Referral made to Nancy in RU. ROSA will await determination of acceptance. HERIBERTO Boateng
--- NOTE | 2023-11-14 12:20 | RAD_ITS ---
STUDY: X-RAY CHEST REASON FOR EXAM: Male, 83 years old. SOB TECHNIQUE: Single AP portable view of the chest. COMPARISON: Comparison is made with prior study dated April 17, 2023. FINDINGS: A right-sided chen catheter is seen with the tip at the junction of the superior vena cava and right atrium. Minimal increased markings at the right lung base suggestive of either atelectasis and/or early infiltrate. Follow-up recommended. There is no demonstrated pleural abnormality. Normal size heart. Normal mediastinum and maria del rosario. Normal visualized pulmonary arteries. There is atherosclerotic tortuosity of the aortic arch and descending thoracic aorta. There are diffuse degenerative changes of the visualized thoracic spine. There is degenerative osteoarthritis of the bilateral shoulders. There is no demonstrated abnormality of the visualized soft tissue structures of the upper abdomen. RAD/Chest 1 View (Portable) IMPRESSION: Mild increased markings at the right lung base suggestive of either atelectasis and/or early infiltrate. Electronically Signed: Kevon Sorto MD at 13:02 EST ,
[2023-11-14] MEDS: 0.9% Normal Saline (1000mL) 1,000 ML 75 ML IV (13:11)
[2023-11-14] MEDS: BENZOCAINE/MENTHOL 1 LOZENGE MUCOUS MEM (14:02)
[2023-11-14] MEDS: Doxycycline 100 MG CAPSULE PO ×2 (14:03→21:51)
[2023-11-14] MEDS: Atorvastatin Calcium 10 MG Tablet PO (21:52)
[2023-11-14] MEDS: Tamsulosin HCl 0.4 MG Capsule 0.400000000000000022 MG PO (21:52)
[2023-11-14] MEDS: Mirtazapine 15 MG Tablet 45 MG PO (21:52)
[2023-11-15] VITALS (7 sets, daily range): BP systolic 113–139; BP diastolic 72–86; PULSE 77–90; RESP 13–18; TEMP 36.4–36.9; O2SAT 93–97; BMI 26.1
[2023-11-15] MEDS: 0.9% Normal Saline (1000mL) 1,000 ML 75 ML IV (02:33)
[2023-11-15] MEDS: Gabapentin 100 MG Capsule PO ×3 (05:33→22:25)
[2023-11-15] MEDS: Acetaminophen 500 MG Tablet 1000 MG PO ×3 (05:33→22:14)
[2023-11-15 05:52] LABS: Absolute Lymphocyte Count 0.74 X10^3/uL (0.83-4.51); Absolute Neutrophil Count 4.4 X10^3/uL (2.0-7.7); Basophil# 0.02 X10^3/uL; Basophil% 0.3 % (0-1); Eosinophil# 0.26 X10^3/uL; Eosinophils% 4.3 % (0-5); Hematocrit 33.4 % (40-54); Hemoglobin 10.7 g/dL (13.0-16.5); Lymphocyte # 0.74 X10^3/ul (0.83-4.51); Lymphocyte % 12.3 % (19-41); Mean Corpuscular Hgb 29.4 pg (27.0-32.0); Mean Corpuscular Volume 91.8 fL (80-94); Mean Platelet Vol. 8.7 fl (6.2-12.0); Monocyte# 0.63 X10^3/uL; Monocyte% 10.4 % (0-10); NRBC Flagged by Analyzer 0 % (0-5); Neutrophil # 4.35 X10^3/uL (2.7-7.7); Platelet Count 231 K/mm3 (150-450); RBC Distribution Width CV 14.5 % (11.6-14.6); RBC Distribution Width SD 49.1 fl (35.1-43.9); Red Blood Count 3.64 M/mm3 (4.6-6.2)
[2023-11-15 06:39] LABS: Anion Gap 3 (5-15); BUN 14 mg/dL (7-18); BUN/Creat Ratio 15.7 RATIO (10-20); CPK Total, Creatine Kinase 1058 U/L (39-308); Calcium,Total 8.7 mg/dL (8.5-10.1); Chloride 114 mmol/L (98-107); Creatinine, Serum 0.89 mg/dL (0.70-1.30); EST Glomerular Filtration Rate 86 mL/min (>60); Est Glom Filt Rate - Afr Amer 104 mL/min (>60); Estimated Creatinine Clearance 57.77 ml/min; Glucose 89 mg/dL (74-106); Phosphorus 2.5 mg/dL (2.5-4.9); Sodium Level 142 mmol/L (136-145)
--- NOTE | 2023-11-15 08:28 | PCM.PN.HOSP ---
Reason for Visit Reason for Visit: Fall/loss of consciousness Subjective Subjective Patient states he is feeling much better overall. No issues overnight. States he would like to get cleaned up and sit up in a chair. I strongly encouraged him to do so so he does not lose any strength that he has maintained. Plan is for discharge to TCU or rehab. Objective Data Objective Data Vital Signs: Vital Signs Temp Pulse Resp BP Pulse Ox O2 Del Method 97.9 F 82 18 127/80 H 97 Room Air 11/15/23 07:57 11/15/23 07:57 11/15/23 07:57 11/15/23 07:57 11/15/23 07:57 11/15/23 07:57 Oxygen Delivery Method Room Air Weight: 75.5 kg Body Mass Index (BMI) 26.1 Intake & Output: Intake and Output for Last 24 Hours 11/13/23 11/14/23 11/15/23 23:59 23:59 23:59 Intake Total 3015.42 / 3015.42 1956.25 / 1956.25 Output Total 1925 / 1925 1650 / 1650 Balance 1090.42 / 1090.42 306.25 / 306.25 Lab / Micro Data 11/15/23 05:40 11/15/23 05:40 Labs: Laboratory Results - last 24 hr 11/15/23 05:40: WBC 6.0, RBC 3.64 L, Hgb 10.7 L, Hct 33.4 L, MCV 91.8, MCH 29.4, MCHC 32.0, RDW Std Deviation 49.1 H, RDW Coeff of Kathryn 14.5, Plt Count 231, MPV 8.7, Immature Gran % (Auto) 0.700, Neut % (Auto) 72.0 H, Lymph % (Auto) 12.3 L, [place] % (Auto) 10.4 H, Eos % (Auto) 4.3, Baso % (Auto) 0.3, Absolute Neuts (auto) 4.4, Absolute Lymphs (auto) 0.74 L, Nucleated RBC % 0, Sodium 142, Potassium 4.0, Chloride 114 H, Carbon Dioxide 25.0, Anion Gap 3 L, BUN 14, Creatinine 0.89, Estim Creat Clear Calc 57.77, Est GFR (MDRD) Af Amer 104, Est GFR (MDRD) Non-Af 86, BUN/Creatinine Ratio 15.7, Glucose 89, Calcium 8.7, Phosphorus 2.5, Magnesium 2.0, Total Creatine Kinase 1058 H Radiography Diagnostic Testing: Radiology Impression Chest X-Ray 11/14/23 12:20 IMPRESSION: Mild increased markings at the right lung base suggestive of either atelectasis and/or early infiltrate. Electronically Signed: Kevon Sorto MD at 13:02 EST , Physical Exam Const alert, oriented x3, no apparent distress, average body habitus and well nourished Constitutional Narrative: Very pleasant, elderly, white male, sitting up in bed, watching television, appears comfortable and nontoxic, interacts properly and very pleasant General Appearance: cooperative HEENT normocephalic and moist oral mucous membranes HEENT Narrative: Bruise over left religious region, moderate hearing loss Resp normal respiratory effort, no retractions, no use of accessory muscles and clear to auscultation bilaterally Cardio regular rate, regular rhythm, S1 normal heart sound, S2 normal heart sound, no murmurs, no rub, no gallops and no clicks GI normal to inspection, nondistended, normoactive bowel sounds, soft to palpation and non-tender Extremity no clubbing, cyanosis or edema Extremity Narrative: Pedal pulses are 2+ Neuro oriented x3, moves all extremities and no focal motor deficits Neuro Narrative: Generalized weakness noted proximal greater than distal Speech: speech normal Psych affect normal Psych Narrative: Very pleasant, interacts appropriately Assessment & Plan Assessment/Plan (1) Rhabdomyolysis: QUALIFIERS: Rhabdomyolysis type: traumatic Encounter type: initial encounter Qualified Code(s): T79.6XXA - Traumatic ischemia of muscle, initial encounter (2) Fall at home: QUALIFIERS: Encounter type: initial encounter Qualified Code(s): W19.XXXA - Unspecified fall, initial encounter; Y92.009 - Unspecified place in unspecified non-institutional (private) residence as the place of occurrence of the external cause (3) Recent cerebrovascular accident (CVA): (4) Closed compression fracture of lumbar vertebra: QUALIFIERS: Encounter type: initial encounter Lumbar vertebra fracture level: L2 Qualified Code(s): S32.020A - Wedge compression fracture of second lumbar vertebra, initial encounter for closed fracture PLAN: Plan Rhabdomyolysis -CK is now trending down --> [id number] -Renal function is stable so we will discontinue IV fluids and repeat CK in morning to ensure ongoing trend down despite discontinuation of fluids -Renal function remains normal Fall with LOC -Fall appears to be mechanical and LOC from hitting his head -CT of the brain is unremarkable -PT/OT are recommending ongoing rehab at discharge due to balance issues, multiple falls -It is noted that he was weak and wobbly and shaky during his entirety of ambulation in the hallways needing 1 assist at all times -Patient with recent stroke -Case management and social work following and plan is for rehab or transitional care unit at discharge-awaiting acceptance -Plan for discharge on Friday once patient is excepted -Patient may need placement for ongoing rehab services-if this is the case he would need a 3 midnight hospitalization Influenza A infection/?CAP -Was diagnosed on Friday -Is out of the window for Tamiflu -Outpatient primary care physician started the patient on doxycycline and he had 2 days of treatment--> will continue for a total of 5 days 11/17 -Currently on room air -Continue supportive care -Incentive spirometry -As needed antiemetics L2 superior endplate compression fracture -20% height loss -Continue with Lidoderm -Will schedule Tylenol 1 g every 8 hours -Discontinue IV morphine and transition low-dose oxycodone for pain relief -Patient is already on buprenorphine and and gabapentin so we will continue -PT/OT following Recent stroke -MRI on 10/30/2023 demonstrated small foci of acute infarct in the left and right occipital white matter -Patient has had increasingly poor balance and frequent falls since going home -PT/OT consultation -Echocardiogram at that time demonstrated an EF of 70% with no diastolic dysfunction and no positive bubble study -Continue aspirin -Continue risk factor modifications Nonobstructive CAD/HTN/HPL -Continue home aspirin -Continue home atorvastatin -Continue home isosorbide mononitrate -Restart home atenolol if verified BPH with obstruction/history of prostate cancer -Continue home Flomax -Will restart home Proscar if verified -Prostate cancer was treated with radiation -Continue outpatient follow-up History of colon cancer -Status post colectomy with colostomy -No current issues Overactive bladder -Stable -Would recommend patient stay off oxybutynin since this can increase fall risk History of nephrolithiasis -No current issues History of alcohol abuse -Patient reports he has been sober for the last 3 months Depression/anxiety -Continue home mirtazapine -Continue home hydroxyzine--> this could be contributing to fall risk as well -Continue home Wellbutrin DVT prophylaxis -Lovenox 40 mg daily CODE STATUS -DNR CCA with no intubation Charges/Coding Visit Charges Inpatient E&M: 82004 Subs Hosp L2
[2023-11-15] MEDS: Tolterodine Tartrate 2 MG CAP.SA PO (09:45)
[2023-11-15] MEDS: Aspirin E.C. 81 MG Tablet PO (09:45)
[2023-11-15] MEDS: Doxycycline 100 MG CAPSULE PO ×2 (09:45→22:14)
[2023-11-15] MEDS: buPROPion (SR) 150 MG Tablet.SA PO ×2 (09:45→22:14)
[2023-11-15] MEDS: Isosorbide Mononitrate 60 MG Tablet PO (09:45)
[2023-11-15] MEDS: Finasteride 5 MG Tablet PO (09:45)
[2023-11-15] MEDS: Enoxaparin 40 MG/0.4 ML Syringe SC (09:45)
[2023-11-15] MEDS: Lidocaine 5% Patch 2 PATCH TOPICAL (09:48)
[2023-11-15] MEDS: Albuterol 2.5 MG/3 ML VIAL.NEB. INHALATION (16:39)
[2023-11-15] MEDS: Tamsulosin HCl 0.4 MG Capsule 0.400000000000000022 MG PO (22:14)
[2023-11-15] MEDS: Atorvastatin Calcium 10 MG Tablet PO (22:14)
[2023-11-15] MEDS: Mirtazapine 15 MG Tablet 45 MG PO (22:14)
[2023-11-15] MEDS: 0.9% Saline Lock 10 ML Syringe IV (22:14)
[2023-11-16 03:56] VITALS: BP 124/76; PULSE 76; RESP 17; TEMP 36.3; O2SAT 98
[2023-11-16] MEDS: Acetaminophen 500 MG Tablet 1000 MG PO ×3 (05:54→20:24)
[2023-11-16] MEDS: Gabapentin 100 MG Capsule PO ×3 (05:55→20:23)
[2023-11-16 06:00] VITALS: BMI 25.4
[2023-11-16 06:37] LABS: Absolute Neutrophil Count 2.9 X10^3/uL (2.0-7.7); Basophil# 0.03 X10^3/uL; Basophil% 0.6 % (0-1); Eosinophil# 0.27 X10^3/uL; Eosinophils% 5.8 % (0-5); Hematocrit 32.3 % (40-54); Hemoglobin 10.2 g/dL (13.0-16.5); Lymphocyte % 19.2 % (19-41); Mean Corp Hgb Conc 31.6 g/dL (32-36); Mean Corpuscular Hgb 29.2 pg (27.0-32.0); Mean Corpuscular Volume 92.6 fL (80-94); Mean Platelet Vol. 9.1 fl (6.2-12.0); Monocyte# 0.59 X10^3/uL; Monocyte% 12.6 % (0-10); NRBC Flagged by Analyzer 0 % (0-5); Neutrophil # 2.85 X10^3/uL (2.7-7.7); Neutrophil % 60.9 % (47-70); Platelet Count 237 K/mm3 (150-450); RBC Distribution Width CV 14.7 % (11.6-14.6); RBC Distribution Width SD 49.6 fl (35.1-43.9); Red Blood Count 3.49 M/mm3 (4.6-6.2); White Blood Count 4.7 K/mm3 (4.4-11.0)
[2023-11-16 06:56] LABS: Anion Gap 2 (5-15); BUN 15 mg/dL (7-18); BUN/Creat Ratio 18.1 RATIO (10-20); CPK Total, Creatine Kinase 569 U/L (39-308); Chloride 113 mmol/L (98-107); Creatinine, Serum 0.83 mg/dL (0.70-1.30); EST Glomerular Filtration Rate 94 mL/min (>60); Est Glom Filt Rate - Afr Amer 113 mL/min (>60); Estimated Creatinine Clearance 61.94 ml/min; Glucose 75 mg/dL (74-106); Potassium 3.8 mmol/L (3.5-5.1); Sodium Level 141 mmol/L (136-145)
[2023-11-16 08:11] VITALS: BP 113/70; PULSE 77; RESP 12; TEMP 36.4; O2SAT 99
[2023-11-16] MEDS: Isosorbide Mononitrate 60 MG Tablet PO (08:13)
[2023-11-16] MEDS: Enoxaparin 40 MG/0.4 ML Syringe SC (08:13)
[2023-11-16] MEDS: Tolterodine Tartrate 2 MG CAP.SA PO (08:13)
[2023-11-16] MEDS: buPROPion (SR) 150 MG Tablet.SA PO ×2 (08:13→20:23)
[2023-11-16] MEDS: Doxycycline 100 MG CAPSULE PO ×2 (08:13→20:23)
[2023-11-16] MEDS: Aspirin E.C. 81 MG Tablet PO (08:13)
[2023-11-16] MEDS: Finasteride 5 MG Tablet PO (08:13)
[2023-11-16] MEDS: Lidocaine 5% Patch 2 PATCH TOPICAL (08:14)
[2023-11-16 11:40] VITALS: PULSE 89; RESP 16; O2SAT 96
[2023-11-16] MEDS: Albuterol 2.5 MG/3 ML VIAL.NEB. INHALATION (11:40)
[2023-11-16 13:37] VITALS: BP 103/59; PULSE 92; RESP 14; TEMP 36.6; O2SAT 94
--- NOTE | 2023-11-16 13:38 | PCM.PN.HOSP ---
Reason for Visit Reason for Visit: Fall/loss of consciousness Subjective Subjective Patient appears well. Has no complaints. States he slept okay. Just finishing up eating breakfast and watching television. Joking with me and very interactive. Very pleasant Objective Data Objective Data Vital Signs: Vital Signs Temp Pulse Resp BP Pulse Ox O2 Del Method 97.5 F L 89 16 113/70 96 Room Air 11/16/23 08:11 11/16/23 11:40 11/16/23 11:40 11/16/23 08:11 11/16/23 11:40 11/16/23 11:40 Oxygen Delivery Method Room Air Weight: 73.7 kg Body Mass Index (BMI) 25.4 Intake & Output: Intake and Output for Last 24 Hours 11/14/23 11/15/23 11/16/23 23:59 23:59 23:59 Intake Total 3015.42 / 3015.42 2356.25 / 2356.25 Output Total 1925 / 1925 2650 / 2650 550 / 550 Balance 1090.42 / 1090.42 -293.75 / -293.75 -550 / -550 Lab / Micro Data 11/16/23 05:37 11/16/23 05:37 Labs: Laboratory Results - last 24 hr 11/16/23 05:37: WBC 4.7, RBC 3.49 L, Hgb 10.2 L, Hct 32.3 L, MCV 92.6, MCH 29.2, MCHC 31.6 L, RDW Std Deviation 49.6 H, RDW Coeff of Kathryn 14.7 H, Plt Count 237, MPV 9.1, Immature Gran % (Auto) 0.900, Neut % (Auto) 60.9, Lymph % (Auto) 19.2, [place] % (Auto) 12.6 H, Eos % (Auto) 5.8 H, Baso % (Auto) 0.6, Absolute Neuts (auto) 2.9, Absolute Lymphs (auto) 0.90, Nucleated RBC % 0, Sodium 141, Potassium 3.8, Chloride 113 H, Carbon Dioxide 26.0, Anion Gap 2 L, BUN 15, Creatinine 0.83, Estim Creat Clear Calc 61.94, Est GFR (MDRD) Af Amer 113, Est GFR (MDRD) Non-Af 94, BUN/Creatinine Ratio 18.1, Glucose 75, Calcium 9.0, Total Creatine Kinase 569 H Physical Exam Const alert, oriented x3, no apparent distress, average body habitus and well nourished Constitutional Narrative: Very pleasant, elderly, white male, sitting up in bed, watching television and eating breakfast, appears comfortable and nontoxic, interacts properly and very pleasant, joking with me throughout his exam Assessment & Plan Assessment/Plan (1) Rhabdomyolysis: QUALIFIERS: Rhabdomyolysis type: traumatic Encounter type: initial encounter Qualified Code(s): T79.6XXA - Traumatic ischemia of muscle, initial encounter (2) Fall at home: QUALIFIERS: Encounter type: initial encounter Qualified Code(s): W19.XXXA - Unspecified fall, initial encounter; Y92.009 - Unspecified place in unspecified non-institutional (private) residence as the place of occurrence of the external cause (3) Recent cerebrovascular accident (CVA): (4) Closed compression fracture of lumbar vertebra: QUALIFIERS: Encounter type: initial encounter Lumbar vertebra fracture level: L2 Qualified Code(s): S32.020A - Wedge compression fracture of second lumbar vertebra, initial encounter for closed fracture PLAN: Plan Rhabdomyolysis -CK is now trending down --> [id number] -CK is trending down despite being off fluids and rhabdo is resolving -No reason to repeat CK Fall with LOC -Fall appears to be mechanical and LOC from hitting his head -CT of the brain is unremarkable -PT/OT are recommending ongoing rehab at discharge due to balance issues, multiple falls -It is noted that he was weak and wobbly and shaky during his entirety of ambulation in the hallways needing 1 assist at all times -Patient with recent stroke -Case management and social work following and plan is for rehab or transitional care unit at discharge-awaiting acceptance -Plan for discharge on Friday once patient is excepted Influenza A infection/?CAP -Was diagnosed on Friday -Is out of the window for Tamiflu -Outpatient primary care physician started the patient on doxycycline and he had 2 days of treatment--> will continue for a total of 5 days--> day 4/5 -Doxycycline will be completed tomorrow -Currently on room air -Continue supportive care -Incentive spirometry -As needed antiemetics L2 superior endplate compression fracture -20% height loss -Continue with Lidoderm -Will schedule Tylenol 1 g every 8 hours -Discontinue IV morphine and transition low-dose oxycodone for pain relief -Patient is already on buprenorphine and and gabapentin so we will continue -PT/OT following -Patient is not complaining of any significant pain Recent stroke -MRI on 10/30/2023 demonstrated small foci of acute infarct in the left and right occipital white matter -Patient has had increasingly poor balance and frequent falls since going home -PT/OT consultation -Echocardiogram at that time demonstrated an EF of 70% with no diastolic dysfunction and no positive bubble study -Continue aspirin -Continue risk factor modifications Nonobstructive CAD/HTN/HPL -Continue home aspirin -Continue home atorvastatin -Continue home isosorbide mononitrate -Restart home atenolol if verified BPH with obstruction/history of prostate cancer -Continue home Flomax -Will restart home Proscar if verified -Prostate cancer was treated with radiation -Continue outpatient follow-up History of colon cancer -Status post colectomy with colostomy -No current issues Overactive bladder -Stable -Would recommend patient stay off oxybutynin since this can increase fall risk History of nephrolithiasis -No current issues History of alcohol abuse -Patient reports he has been sober for the last 3 months Depression/anxiety -Continue home mirtazapine -Continue home hydroxyzine--> this could be contributing to fall risk as well -Continue home Wellbutrin DVT prophylaxis -Lovenox 40 mg daily CODE STATUS -DNR CCA with no intubation Charges/Coding Visit Charges Inpatient E&M: 26818 [facility] Hosp L1
[2023-11-16 19:58] VITALS: BP 115/65; PULSE 97; RESP 14; TEMP 36.6; O2SAT 94
[2023-11-16] MEDS: Mirtazapine 15 MG Tablet 45 MG PO (20:23)
[2023-11-16] MEDS: Tamsulosin HCl 0.4 MG Capsule 0.400000000000000022 MG PO (20:23)
[2023-11-16] MEDS: Atorvastatin Calcium 10 MG Tablet PO (20:23)
--- NOTE | 2023-11-16 22:35 | NURSING ---
BED EXIT GOING OFF, DIRECTOR [employer]ARMACE[employer] FOUND PT GOING INTO [address]. PT TOLD THIS NURSE THAT THAT IS WHERE ERIC SLEE[facility] . PT REORIENTED EASILY.
[2023-11-17 04:10] VITALS: BP 135/85; PULSE 78; RESP 16; TEMP 36.6; O2SAT 98
[2023-11-17] MEDS: Acetaminophen 500 MG Tablet 1000 MG PO ×2 (05:08→13:17)
[2023-11-17] MEDS: Gabapentin 100 MG Capsule PO ×2 (05:08→13:17)
[2023-11-17 06:00] VITALS: BMI 25.4
--- NOTE | 2023-11-17 08:47 | PCM.PN.HOSP ---
Reason for Visit Reason for Visit: Diagnoses Wedge compression fracture of second lumbar vertebra, initial encounter for closed fracture (11/14/23) Adverse effect of unspecified drugs, medicaments and biological substances, initial encounter (11/14/23) Traumatic ischemia of muscle, initial encounter (11/14/23) Unspecified fall, initial encounter (11/14/23) Unspecified place in unspecified non-institutional (private) residence as the place of occurrence of the external cause (11/14/23) Personal history of transient ischemic attack (TIA), and cerebral infarction without residual deficits (11/14/23) Subjective Subjective Patient is an 83-year-old gentleman with recent diagnosis of acute CVA who experienced a fall with prolonged downtime patient was found to have rhabdomyolysis admitted to regular nursing floor for further management Objective Data Objective Data Vital Signs: Vital Signs Temp Pulse Resp BP Pulse Ox O2 Del Method 98 F 78 16 135/85 H 98 Room Air 11/17/23 04:10 11/17/23 04:10 11/17/23 04:10 11/17/23 04:10 11/17/23 04:10 11/17/23 04:10 Oxygen Delivery Method Room Air Weight: 73.5 kg Body Mass Index (BMI) 25.4 Intake & Output: Intake and Output for Last 24 Hours 11/15/23 11/16/23 11/17/23 23:59 23:59 23:59 Intake Total 2356.25 / 2356.25 Output Total 2650 / 2650 1850 / 1850 Balance -293.75 / -293.75 -1850 / -1850 Lab / Micro Data 11/16/23 05:37 11/16/23 05:37 Physical Exam Narrative GENERAL: cooperative HEENT: Atraumatic; normocephalic EYES; Anicteric, Normal Conjunctiva NECK; supple, normal thyroid, RESPIRATORY: Diminished to auscultation CARDIOVASCULAR: Regular S1 S2, GI: soft, normoactive bowel sounds, : No Renal angle tenderness; EXTREMITIES: No edema, no clubbing, MUSCULOSKELETAL: no muscle wasting NEURO: Awake; no lateralizing signs. SKIN: No Rash PSYCH; Flat affect Assessment & Plan Assessment/Plan (1) Rhabdomyolysis: QUALIFIERS: Encounter type: initial encounter Rhabdomyolysis type: traumatic Qualified Code(s): T79.6XXA - Traumatic ischemia of muscle, initial encounter (2) Fall at home: QUALIFIERS: Encounter type: initial encounter Qualified Code(s): W19.XXXA - Unspecified fall, initial encounter; Y92.009 - Unspecified place in unspecified non-institutional (private) residence as the place of occurrence of the external cause (3) Recent cerebrovascular accident (CVA): (4) Closed compression fracture of lumbar vertebra: QUALIFIERS: Encounter type: initial encounter Lumbar vertebra fracture level: L2 Qualified Code(s): S32.020A - Wedge compression fracture of second lumbar vertebra, initial encounter for closed fracture PLAN: Plan Patient is an 83-year-old gentleman with recent diagnosis of acute CVA who experienced a fall with prolonged downtime patient was found to have rhabdomyolysis admitted to regular nursing floor for further management 1. Acute rhabdomyolysis Following fall with prolonged period of immobilization managed with IV fluid with subsequent monitoring of CPK levels 2. Fall without loss of consciousness ? Requested for PT OT as well as forensic social worker to assist with discharge planning 3. Recent diagnosis of acute influenza A -patient was out of window for Tamiflu 4. Suspected pneumonia ? Chest x-ray obtained did show Mild increased markings at the right lung base suggestive of either atelectasis and/or early infiltrate.. Patient managed with doxycycline as well as incentive spirometry and aerosol treatment 5. L2 superior endplate compression fracture -Suspected to be secondary to osteoporosis. Patient was found to have a 20% height loss manage symptomatically with Lidoderm as well as Tylenol 6. Recent diagnosis of acute CVA -MRI on 10/30/2023 demonstrated small foci of acute infarct in the left and right occipital white matter Patient has had increasingly poor balance and frequent falls since going home. Consult placed to PT OT 7. Coronary artery disease ? Did continue guideline directed medical therapy 8. Hypertension - Blood pressure controlled, home medications continued with dose adjustment as needed 9. Dyslipidemia -Patient is on statin therapy, continued at home dose 10. BPH with lower urinary obstructive symptoms - Patient treated with tamsulosin 11. History of prostate cancer -Prostate cancer was treated with radiation, Continue outpatient follow-up 12. History of colon cancer -Status post colectomy with colostomy; -No current issues 13. Overactive bladder -Stable patient was taken off oxybutynin due to increasing risk for falls 14 history of nephrolithiasis -No current issues 15. History of alcohol abuse -Patient reports he has been sober for the last 3 months 16. Depression/anxiety -Did continue home medication including mirtazapine as well as Wellbutrin 17. DVT prophylaxis -Lovenox 40 mg daily Time spent in the patient's overall evaluation,decision-making process, review of diagnostic data, adjustment of management, discussion with other providers, nursing nursing and ancillary staff involved in patient's care documentation, 40 Minutes Charges/Coding Visit Charges Inpatient E&M: 70597 Subs Hosp L2
[2023-11-17] MEDS: Aspirin E.C. 81 MG Tablet PO (09:49)
[2023-11-17] MEDS: Enoxaparin 40 MG/0.4 ML Syringe SC (09:49)
[2023-11-17] MEDS: buPROPion (SR) 150 MG Tablet.SA PO (09:49)
[2023-11-17] MEDS: Tolterodine Tartrate 2 MG CAP.SA PO (09:49)
[2023-11-17] MEDS: Finasteride 5 MG Tablet PO (09:49)
[2023-11-17] MEDS: Isosorbide Mononitrate 60 MG Tablet PO (09:49)
[2023-11-17] MEDS: Lidocaine 5% Patch 2 PATCH TOPICAL (09:50)
[2023-11-17 09:51] VITALS: BP 120/69; PULSE 86; RESP 16; TEMP 36.8; O2SAT 98
--- NOTE | 2023-11-17 09:57 | CASEMGMT ---
Addendum entered by Sammi Lopez 11/17/23 15:43: Social Work Inpatient Rehab does not have beds available, but TCU is able to accept. ROSA met with pt and dgt Rita was on speaker phone. SW updated that TCU can accept and Rehab does not have beds available. Pt and dgt agreeable to TCU. Physician updated and pt is ready for dc today. DC orders to be faxed to TCU when complete. Nancy in TCU notified that pt will be admitted today. Disposition: TCU, skilled level of care HERIBERTO Rodrigues Original Note: Social Work ROSA spoke with admissions in Inpatient Rehab unit. Pt to be reviewed today for acceptance to inpatient rehab. ROSA will await determination. ROSA spoke with pt's dgt Rita on the phone and updated on discharge plan. Rita is agreeable for pt to go to Inpatient Rehab or TCU. ROSA will updated once determination is made. HERIBERTO Rodrigues
[2023-11-17 15:24] VITALS: BP 100/57; PULSE 90; RESP 16; TEMP 36.8; O2SAT 97
--- NOTE | 2023-11-17 15:27 | TREXTCAR_ITS ---
Diet Diet Order/Speech Therapy: 11/14/23 03:01 Diet: Cardiac - Heart Healthy Food consistency:: Regular Liquid Consistency:: Regular/Thin Type of Dietary Supplement:: Ensure Plus High Protein Is pt able to select menu?: Yes Diet Comments: 240mL ensure plus HP with lunch Routine Orders/Code Status Code Status: DNRCC-A Wound(s) left fa: Wound Type: Skin Tear Therapies Physical Therapy: Eval and Treat Occupational Therapy: Eval and Treat Problem/Diagnosis (1) Rhabdomyolysis: Status: Acute Code(s): M62.82 - Rhabdomyolysis (2) Fall at home: Status: Acute Code(s): W19.XXXA - Unspecified fall, initial encounter; Y92.009 - Unspecified place in unspecified non-institutional (private) residence as the place of occurrence of the external cause (3) Recent cerebrovascular accident (CVA): Status: Acute Code(s): Z86.73 - Personal history of transient ischemic attack (TIA), and cerebral infarction without residual deficits (4) Closed compression fracture of lumbar vertebra: Status: Acute Code(s): S32.000A - Wedge compression fracture of unspecified lumbar vertebra, initial encounter for closed fracture Plan Patient is an 83-year-old gentleman with recent diagnosis of acute CVA who experienced a fall with prolonged downtime patient was found to have rhabdomyolysis admitted to regular nursing floor for further management 1. Acute rhabdomyolysis Following fall with prolonged period of immobilization managed with IV fluid with subsequent monitoring of CPK levels 2. Fall without loss of consciousness ? Requested for PT OT as well as high school social studies teacher to assist with discharge planning 3. Recent diagnosis of acute influenza A -patient was out of window for Tamiflu 4. Suspected pneumonia ? Chest x-ray obtained did show Mild increased markings at the right lung base suggestive of either atelectasis and/or early infiltrate.. Patient managed with doxycycline as well as incentive spirometry and aerosol treatment 5. L2 superior endplate compression fracture -Suspected to be secondary to osteoporosis. Patient was found to have a 20% height loss manage symptomatically with Lidoderm as well as Tylenol 6. Recent diagnosis of acute CVA -MRI on 10/30/2023 demonstrated small foci of acute infarct in the left and right occipital white matter Patient has had increasingly poor balance and frequent falls since going home. Consult placed to PT OT 7. Coronary artery disease ? Did continue guideline directed medical therapy 8. Hypertension - Blood pressure controlled, home medications continued with dose adjustment as needed 9. Dyslipidemia -Patient is on statin therapy, continued at home dose 10. BPH with lower urinary obstructive symptoms - Patient treated with tamsulosin 11. History of prostate cancer -Prostate cancer was treated with radiation, Continue outpatient follow-up 12. History of colon cancer -Status post colectomy with colostomy; -No current issues 13. Overactive bladder -Stable patient was taken off oxybutynin due to increasing risk for falls 14 history of nephrolithiasis -No current issues 15. History of alcohol abuse -Patient reports he has been sober for the last 3 months 16. Depression/anxiety -Did continue home medication including mirtazapine as well as Wellbutrin 17. DVT prophylaxis -Lovenox 40 mg daily Time spent in the patient's overall evaluation,decision-making process, review of diagnostic data, adjustment of management, discussion with other providers, nursing nursing and ancillary staff involved in patient's care documentation, 40 Minutes Allergies/Procedures Done in Hospital Allergies No Known Allergies Allergy (Verified 10/07/23 19:32) Type of Care/Length of Stay Estimated LOS: Convalescent Care Less Than 30 days Type of Care Needed: Skilled Rehab Potential: Good Prognosis: Good Additional Orders/Day of Discharge Day of Discharge: 11/17/23 Dietary and Speech Recommendations Dietitian Recommendations/Changes: Will continue cardiac diet as ordered. Will ad d 240mL ensure plus HP w/ lunch tray. Additional ONS as needed if PO fails at meals. Discharge Plan Admission Admit Date/Time: 11/14/23 02:06 Attending Provider: Kole Reyes Primary Care Provider: Vishal Antonio Consulting Providers: Kole Fan; Yeni Werner Discharge Orders/Prescriptions Prescriptions: New acetaminophen 500 mg Tablet 1,000 mg PO Q8 Qty: 0 0RF lidocaine 5 % Adhesive Patch,Medicated 2 patch topical DAILY Qty: 0 0RF Protocol: *Topical Application Instructions APPLICATION INSTRUCTIONS: Apply to lumbar spine and right and left paraspinal muscles. oxycodone 5 mg Tablet 2.5 mg PO Q6H PRN PRN (Reason: Pain Score 6-10) Qty: 0 0RF doxycycline hyclate 100 mg capsule 100 mg PO BID Qty: 14 0RF Continued finasteride [Proscar] 5 mg tablet 5 mg PO DAILY aspirin [Adult Low Dose Aspirin] 81 mg tablet,delayed release (DR/EC) 81 mg PO DAILY tamsulosin 0.4 mg capsule 0.4 mg PO QHS oxybutynin chloride 10 mg tablet extended release 24hr 10 mg PO DAILY buprenorphine 10 mcg/hour patch weekly 1 patch transdermal FR Patient Comments: took patch off today and did not put new one on Daily Fiber (psyllium-aspart) 3 gram Powder In Packet 1 packet PO DAILY PRN (Reason: loose stools) Qty: 0 0RF gabapentin 100 mg capsule 100 mg PO TID Patient Comments: take 1 capsule by mouth three times a day atorvastatin 10 mg tablet 10 mg PO QHS Patient Comments: take 1 tablet by mouth at bedtime bupropion HCl 150 mg tablet sustained-release 12 hr 150 mg PO Q12H Patient Comments: take 1 tablet by mouth twice a day hydroxyzine HCl 25 mg tablet 12.5 mg PO Q8H mirtazapine 45 mg tablet 45 mg PO QHS Patient Comments: take 1 tablet by mouth once daily at bedtime isosorbide mononitrate 60 mg tablet extended release 24 hr 60 mg PO DAILY Qty: 90 3RF nitroglycerin 0.4 mg tablet, sublingual 0.4 mg SL Q5M PRN (Reason: Chest Pain) Qty: 25 3RF Discontinued atenolol 25 mg tablet 12.5 mg PO QDAY acetaminophen 500 mg Tablet 1,000 mg PO Q8 Qty: 0 0RF Referrals / Follow Up: Vishal Antonio MD [Primary Care Provider] - Disposition Disposition (needs filled in before D/C Order can be placed): [facility] (1) Rhabdomyolysis Qualifiers: Rhabdomyolysis type: traumatic Encounter type: initial encounter Qualified Code(s): T79.6XXA - Traumatic ischemia of muscle, initial encounter (2) Fall at home Qualifiers: Encounter type: initial encounter Qualified Code(s): W19.XXXA - Unspecified fall, initial encounter; Y92.009 - Unspecified place in unspecified non- institutional (private) residence as the place of occurrence of the external cause (4) Closed compression fracture of lumbar vertebra Qualifiers: Encounter type: initial encounter Lumbar vertebra fracture level: L2 Qualified Code(s): S32.020A - Wedge compression fracture of second lumbar vertebra, initial encounter for closed fracture
--- NOTE | 2023-11-17 15:35 | DS.PCM_ITS ---
Providers Date of Admission: 11/14/23 Date of Discharge: 11/17/23 Primary Care Physician: Dr. Vishal Antonio MD Reason For Visit: RHABOLOMYOLYSIS DUE TO PROLONGED DOWNTIME AFTER Diagnosis Discharge Diagnosis (1) Rhabdomyolysis: Status: Acute Code(s): M62.82 - Rhabdomyolysis Qualifiers: Rhabdomyolysis type: traumatic Encounter type: initial encounter Qualified Code(s): T79.6XXA - Traumatic ischemia of muscle, initial encounter (2) Fall at home: Status: Acute Code(s): W19.XXXA - Unspecified fall, initial encounter; Y92.009 - Unspecified place in unspecified non-institutional (private) residence as the place of occurrence of the external cause Qualifiers: Encounter type: initial encounter Qualified Code(s): W19.XXXA - Unspecified fall, initial encounter; Y92.009 - Unspecified place in unspecified non-institutional (private) residence as the place of occurrence of the external cause (3) Recent cerebrovascular accident (CVA): Status: Acute Code(s): Z86.73 - Personal history of transient ischemic attack (TIA), and cerebral infarction without residual deficits (4) Closed compression fracture of lumbar vertebra: Status: Acute Code(s): S32.000A - Wedge compression fracture of unspecified lumbar vertebra, initial encounter for closed fracture Qualifiers: Encounter type: initial encounter Lumbar vertebra fracture level: L2 Qualified Code(s): S32.020A - Wedge compression fracture of second lumbar vertebra, initial encounter for closed fracture Plan Patient is an 83-year-old gentleman with recent diagnosis of acute CVA who experienced a fall with prolonged downtime patient was found to have rhabdomyolysis admitted to regular nursing floor for further management 1. Acute rhabdomyolysis Following fall with prolonged period of immobilization managed with IV fluid with subsequent monitoring of CPK levels 2. Fall without loss of consciousness ? Requested for PT OT as well as social services director to assist with discharge planning 3. Recent diagnosis of acute influenza A -patient was out of window for Tamiflu 4. Suspected pneumonia ? Chest x-ray obtained did show Mild increased markings at the right lung base suggestive of either atelectasis and/or early infiltrate.. Patient managed with doxycycline as well as incentive spirometry and aerosol treatment 5. L2 superior endplate compression fracture -Suspected to be secondary to osteoporosis. Patient was found to have a 20% height loss manage symptomatically with Lidoderm as well as Tylenol 6. Recent diagnosis of acute CVA -MRI on 10/30/2023 demonstrated small foci of acute infarct in the left and right occipital white matter Patient has had increasingly poor balance and frequent falls since going home. Consult placed to PT OT 7. Coronary artery disease ? Did continue guideline directed medical therapy 8. Hypertension - Blood pressure controlled, home medications continued with dose adjustment as needed 9. Dyslipidemia -Patient is on statin therapy, continued at home dose 10. BPH with lower urinary obstructive symptoms - Patient treated with tamsulosin 11. History of prostate cancer -Prostate cancer was treated with radiation, Continue outpatient follow-up 12. History of colon cancer -Status post colectomy with colostomy; -No current issues 13. Overactive bladder -Stable patient was taken off oxybutynin due to increasing risk for falls 14 history of nephrolithiasis -No current issues 15. History of alcohol abuse -Patient reports he has been sober for the last 3 months 16. Depression/anxiety -Did continue home medication including mirtazapine as well as Wellbutrin 17. DVT prophylaxis -Lovenox 40 mg daily Time spent in the patient's overall evaluation,decision-making process, review of diagnostic data, adjustment of management, discussion with other providers, nursing nursing and ancillary staff involved in patient's care documentation, 40 Minutes Medications at Discharge Home Medications finasteride 5 mg tablet (Proscar) 5 mg PO DAILY prostate 01/27/18 aspirin 81 mg tablet,delayed release (Adult Low Dose Aspirin) 81 mg PO DAILY heart health 07/30/18 tamsulosin 0.4 mg capsule 0.4 mg PO QHS prostate 10/21/21 isosorbide mononitrate 60 mg tablet,extended release 24 hr 60 mg PO DAILY heart #90 tabs 01/16/23 buprenorphine 10 mcg/hour weekly transdermal patch 1 patch transdermal FR pain 04/17/23 oxybutynin chloride 10 mg tablet,extended release 24 hr 10 mg PO DAILY overactive bladder 04/17/23 psyllium husk (aspartame) 3 gram oral powder packet (Daily Fiber (psyllium- aspartame)) 1 packet PO DAILY PRN loose stools #0 ea 04/20/23 nitroglycerin 0.4 mg sublingual tablet 0.4 mg sublingual Q5M PRN Chest Pain #25 tabs 05/12/23 atorvastatin 10 mg tablet 10 mg PO QHS cholesterol 10/31/23 bupropion HCl 150 mg tablet,12 hr sustained-release 150 mg PO Q12H pain 10/31/23 hydroxyzine HCl 25 mg tablet 12.5 mg PO Q8H 10/31/23 mirtazapine 45 mg tablet 45 mg PO QHS mental health 10/31/23 gabapentin 100 mg capsule 100 mg PO TID 11/14/23 acetaminophen 500 mg tablet 1,000 mg (2 x 500 mg) PO Q8 #0 tabs 11/17/23 doxycycline hyclate 100 mg capsule 100 mg PO BID #14 caps 11/17/23 lidocaine 5 % topical patch 2 patch topical DAILY #0 ea 11/17/23 oxycodone 5 mg tablet 2.5 mg (1/2 x 5 mg) PO Q6H PRN PRN Pain Score 6-10 #0 tabs 11/17/23 Hospital Course Summary of Care Provided Minutes Spent on Discharge: 40 Physical Exam Narrative GENERAL: cooperative HEENT: Atraumatic; normocephalic EYES; Anicteric, Normal Conjunctiva NECK; supple, normal thyroid, RESPIRATORY: Diminished to auscultation CARDIOVASCULAR: Regular S1 S2, GI: soft, normoactive bowel sounds, : No Renal angle tenderness; EXTREMITIES: No edema, no clubbing, MUSCULOSKELETAL: no muscle wasting NEURO: Awake; no lateralizing signs. SKIN: No Rash PSYCH; Flat affect Weight / BMI Weight Weight: 73.5 kg Body Mass Index (BMI) 25.4 ABG / Lab / Microbiology Data 11/16/23 05:37 11/16/23 05:37 D/C Instructions Discharge Diet: No restrictions Discharge Activity: Return to Normal Activity Call your doctor if you observe: Fever of 101 or Higher, Shortness of breath, Fainting spells and Chest pain Meaningful Use Info Meaningful Use Diagnoses (Choose all that apply): None applicable Discharge Plan Admission Admit Date/Time: 11/14/23 02:06 Attending Provider: Kole Reyes Primary Care Provider: Vishal Antonio Consulting Providers: Kole Fan; Yeni Werner Discharge Orders/Prescriptions Prescriptions: New acetaminophen 500 mg Tablet 1,000 mg PO Q8 Qty: 0 0RF lidocaine 5 % Adhesive Patch,Medicated 2 patch topical DAILY Qty: 0 0RF Protocol: *Topical Application Instructions APPLICATION INSTRUCTIONS: Apply to lumbar spine and right and left paraspinal muscles. oxycodone 5 mg Tablet 2.5 mg PO Q6H PRN PRN (Reason: Pain Score 6-10) Qty: 0 0RF doxycycline hyclate 100 mg capsule 100 mg PO BID Qty: 14 0RF Continued finasteride [Proscar] 5 mg tablet 5 mg PO DAILY aspirin [Adult Low Dose Aspirin] 81 mg tablet,delayed release (DR/EC) 81 mg PO DAILY tamsulosin 0.4 mg capsule 0.4 mg PO QHS oxybutynin chloride 10 mg tablet extended release 24hr 10 mg PO DAILY buprenorphine 10 mcg/hour patch weekly 1 patch transdermal FR Patient Comments: took patch off today and did not put new one on Daily Fiber (psyllium-aspart) 3 gram Powder In Packet 1 packet PO DAILY PRN (Reason: loose stools) Qty: 0 0RF gabapentin 100 mg capsule 100 mg PO TID Patient Comments: take 1 capsule by mouth three times a day atorvastatin 10 mg tablet 10 mg PO QHS Patient Comments: take 1 tablet by mouth at bedtime bupropion HCl 150 mg tablet sustained-release 12 hr 150 mg PO Q12H Patient Comments: take 1 tablet by mouth twice a day hydroxyzine HCl 25 mg tablet 12.5 mg PO Q8H mirtazapine 45 mg tablet 45 mg PO QHS Patient Comments: take 1 tablet by mouth once daily at bedtime isosorbide mononitrate 60 mg tablet extended release 24 hr 60 mg PO DAILY Qty: 90 3RF nitroglycerin 0.4 mg tablet, sublingual 0.4 mg SL Q5M PRN (Reason: Chest Pain) Qty: 25 3RF Discontinued atenolol 25 mg tablet 12.5 mg PO QDAY acetaminophen 500 mg Tablet 1,000 mg PO Q8 Qty: 0 0RF Referrals / Follow Up: Vishal Antonio MD [Primary Care Provider] - Disposition Disposition (needs filled in before D/C Order can be placed): [facility]ustodial Facility Charges/Coding Visit Charges Inpatient E&M: 49056 Disch Hosp >30min
== END 2023-11-17 16:53 | disposition skilled nursing facility (03) | DRG 564 ==
LOC: ED 01:54 → ICU 02:10 → MS3 11-17 07:25 → ICU 12-04 12:58 → MS3 12-04 12:58
PROVIDERS: Internal Medicine; Admitting Provider Internal Medicine; Emergency Provider Emergency Medicine; PCP Family Medicine; Visit Provider Internal Medicine
DX: T79.6XXA Traumatic ischemia of muscle, initial encounter (principal); J10.00 Influenza due to other identified influenza virus with unspecified type of pneumonia; M80.08XA Age-related osteoporosis with current pathological fracture, vertebra(e), initial encounter for fracture; N13.8 Other obstructive and reflux uropathy; Z93.3 Colostomy status; I10 Essential (primary) hypertension; F32.A Depression, unspecified; E78.00 Pure hypercholesterolemia, unspecified; F17.220 Nicotine dependence, chewing tobacco, uncomplicated; I25.10 Atherosclerotic heart disease of native coronary artery without angina pectoris; W01.10XA Fall on same level from slipping, tripping and stumbling with subsequent striking against unspecified object, initial encounter; F41.9 Anxiety disorder, unspecified; I25.2 Old myocardial infarction; N32.81 Overactive bladder; N40.1 Benign prostatic hyperplasia with lower urinary tract symptoms; T40.495A Adverse effect of other synthetic narcotics, initial encounter; R29.6 Repeated falls; E66.3 Overweight; Z68.27 Body mass index [BMI] 27.0-27.9, adult; Z66 Do not resuscitate; Z98.61 Coronary angioplasty status; Z90.49 Acquired absence of other specified parts of digestive tract; Z79.82 Long term (current) use of aspirin; Z79.899 Other long term (current) drug therapy; Z85.46 Personal history of malignant neoplasm of prostate; Z85.038 Personal history of other malignant neoplasm of large intestine; Z86.73 Personal history of transient ischemic attack (TIA), and cerebral infarction without residual deficits
CPT/HCPCS: 36415; 70450; 71045; 72100; 72170; 80048; 80053; 80307; 80320; 82550; 83735; 84100; 85025; 94640; 94668; 97162; 97166; 97530; 97535; 99285; 99406; J7030; A4216; G0480

== ENCOUNTER 2023-11-17 16:54 | Inpatient (IN) | payer MEDICARE, BC, SELFPAY ==
[2023-11-17 17:00] VITALS: BP 117/62; PULSE 82; RESP 18; TEMP 35.8; O2SAT 94; BMI 25.3; BMI 25.4
--- NOTE | 2023-11-17 17:46 | NURSING ---
Pt admits to unit this afternoon. A&Ox4, states that his daughter, Rita is POA. When verifying code status, pt states that he knows he was DNR-CCA, but wants to be full code for his daughter. Called and updated Rita on pt transfer to unit, and code status change. Rita thankful for update, and states that I know he has terminal cancer...he is the only parent that I have left though... Spoke with both pt and daughter regarding code status and ability to change decision if wanted.
[2023-11-17 18:40] VITALS: PULSE 90; RESP 16; O2SAT 96
--- NOTE | 2023-11-17 19:22 | NURSING ---
pt states that he has received influenza vaccine this flu season; none found on record. Pt instructs to call [facility] since that is where he received it.
--- NOTE | 2023-11-17 21:07 | HP.PCM_ITS ---
HPI - General General Date of Admission: 11/17/23 Date of Service: 11/17/23 Chief Complaint: Here for rehabilitation. HPI Narrative 11/14/2023 HOWIE MANZO, is a 83 Male who presents to [facility] ED with fall. Recent stroke, balance off, falls often. +head injury, +LOC. CT head negative. X-ray showed L2 compression fracture, age indeterminate. IV fluids for Rhabdomyolysis, CK 8000. 11/14/2023 Admit to [facility]. IV fluids, Serial CK for rhabdomyolysis. Pain control for L2 compression fracture. 10/31/2023 Stroke on MRI brain. PT/OT Debility. Recent influenza A, out of window for Tamiflu, pneumonia treated with Doxycycline. Stop Oxybutynin 10/17 increased risk of falls. 11/15/2023 Feeling better. PT/OT for TCU. 11/16/2023 Appears well, joking and interactive. Room Air for influenza A. Tylenol, Morphine, Buprenorphine, Gabapentin for L2 compression fracture. Sober from alcohol x 3 months. 11/17/2023 PT/OT TCU. 11/17/2023 Admit to TCU with debility, here for rehabilitaiton, strengthening, prior to discharge home alone. [facility] Medical History (Updated 11/17/23 @ 21:[address] Parth Abel MD) Acute cerebrovascular accident (CVA) Adenocarcinoma Alcohol use Ambulates with cane Anxiety Arthritis Atherosclerosis of coronary artery of [place] heart without angina pectoris Back pain BPH (benign prostatic hyperplasia) Bright's disease Cancer Cardiology follow-up encounter Chest pain Chewing tobacco nicotine dependence Chronic pain Chronic pain Cognitive impairment Colon cancer CVA (cerebral vascular accident) Depression Easy bruising Essential (primary) hypertension Fall Frequent falls Gait instability Hearing loss, left Hearing loss, right High cholesterol History of echocardiogram History of heart attack History of pain when walking History of prostate cancer History of radiation therapy History of stress test HLD (hyperlipidemia) Kidney disease Kidney stones Myocardial infarct Old inferior wall myocardial infarction Smoker Vision loss of left eye Vision loss of right eye Vitamin D deficiency Wears dentures Wears glasses Wears hearing aid Home Medications finasteride 5 mg tablet (Proscar) 5 mg PO DAILY prostate 01/27/18 [History Last Taken 11/17/23 09:50] aspirin 81 mg tablet,delayed release (Adult Low Dose Aspirin) 81 mg PO DAILY heart health 07/30/18 [History Last Taken 11/17/23 09:50] tamsulosin 0.4 mg capsule 0.4 mg PO QHS prostate 10/21/21 [History Last Taken 11/16/23 20:25] isosorbide mononitrate 60 mg tablet,extended release 24 hr 60 mg PO DAILY heart #90 tabs 01/16/23 [Rx Last Taken 11/17/23 09:50] buprenorphine 10 mcg/hour weekly transdermal patch 1 patch transdermal FR pain 04/17/23 [History Last Taken 11/14/23 08:30] oxybutynin chloride 10 mg tablet,extended release 24 hr 10 mg PO DAILY overactive bladder 04/17/23 [History Last Taken 11/17/23 09:50] psyllium husk (aspartame) 3 gram oral powder packet (Daily Fiber (psyllium- aspartame)) 1 packet PO DAILY PRN loose stools #0 ea 04/20/23 [Rx Last Taken 04/18/23] nitroglycerin 0.4 mg sublingual tablet 0.4 mg sublingual Q5M PRN Chest Pain #25 tabs 05/12/23 [Rx Last Taken Unknown] atorvastatin 10 mg tablet 10 mg PO QHS cholesterol 10/31/23 [History Last Taken 11/16/23 20:25] bupropion HCl 150 mg tablet,12 hr sustained-release 150 mg PO Q12H pain 10/31/23 [History Last Taken 11/17/23 09:50] hydroxyzine HCl 25 mg tablet 12.5 mg PO Q8H Mental Health 10/31/23 [History Last Taken Unknown] mirtazapine 45 mg tablet 45 mg PO QHS mental health 10/31/23 [History Last Taken 11/16/23 20:25] gabapentin 100 mg capsule 100 mg PO TID Pain 11/14/23 [History Last Taken 11/17/23 13:20] acetaminophen 500 mg tablet 1,000 mg (2 x 500 mg) PO Q8 Pain #0 tabs 11/17/23 [Rx Last Taken 11/17/23 13:20] doxycycline hyclate 100 mg capsule 100 mg PO BID Antibiotic #14 caps 11/17/23 [Rx Last Taken Unknown] lidocaine 5 % topical patch 2 patch topical DAILY Pain #0 ea 11/17/23 [Rx Last Taken 11/17/23 09:50] oxycodone 5 mg tablet 2.5 mg (1/2 x 5 mg) PO Q6H PRN PRN Pain Score 6-10 #0 tabs 11/17/23 [Rx Last Taken Unknown] Allergy/AdvReac Type Severity Reaction Status Date / Time No Known Allergies Allergy Verified 10/07/23 19:32 Family History Father Cancer skin cancer Mother Myocardial infarction Diabetes Other Fall Surgical History H/O percutaneous transluminal coronary angioplasty (11/13/93) History of angioplasty History of colostomy History of cystoscopy History of inguinal hernia repair, bilateral History of left heart catheterization (02/24/02) History of rotator cuff surgery Hx of appendectomy Hx of colectomy Status post trigger finger release Social History household members: none Smoking Status: Never smoker alcohol intake: current alcohol intake frequency: a few times a month Alcohol type: hard liquor substance use type: does not use caffeine: Yes Type: coffee Number of servings: 1 ROS Constitutional Constitutional: Denies chills, fever(s) or weight gain ENT HEENT: Denies headache(s), nasal congestion or nasal discharge Cardiovascular Cardiovascular: Denies chest pain or palpitations Respiratory/Chest Respiratory/Chest: Denies cough, excessive phlegm production or shortness of breath with exertion Gastrointestinal Gastrointestinal: Denies abdominal pain, nausea or vomiting Genitourinary Genitourinary: Denies dysuria Musculoskeletal Musculoskeletal: Denies joint pain or joint swelling Integumentary Integumentary: Denies rash or wounds Neurologic Neurologic: Denies focal weakness, numbness or tingling Psychiatric Psychiatric: Denies anxiety, auditory hallucinations, depression, homicidal ideation or suicidal ideation Vital Signs Vital Signs Vital Signs: 11/17/23 17:00 Temperature 96.5 F L Temperature Source Temporal Pulse Rate 82 Respiratory Rate 18 Blood Pressure 117/62 Blood Pressure Mean 80 Pulse Ox 94 Oxygen Delivery Method Room Air Weight Weight: 73.549 kg Body Mass Index (BMI) 25.4 Physical Exam Const alert General Appearance: cooperative HEENT normocephalic Eyes PERRL and EOMs intact bilaterally Neck supple, no JVD and no carotid bruits Resp normal respiratory effort, normal air movement and clear to auscultation bilaterally Cardio regular rate and regular rhythm GI normal to inspection, nondistended, normoactive bowel sounds, non-tender and non-distended Extremity normal capillary refill General Extremity: Negative for edema Skin no rashes or lesions noted General Skin Exam: no breakdown Neuro Neuro Narrative: Moving all 4 extremities. Psych affect normal Appearance: appropriate Assessment & Plan Assessment/Plan (1) Debility: (2) Recent cerebrovascular accident (CVA): (3) Compression fracture of L2: (4) Rhabdomyolysis: QUALIFIERS: Encounter type: initial encounter Rhabdomyolysis type: traumatic Qualified Code(s): T79.6XXA - Traumatic ischemia of muscle, initial encounter (5) Influenza A: (6) Pneumonia: (7) Coronary artery disease: (8) Chronic pain: QUALIFIERS: Chronic pain type: chronic pain syndrome Qualified Code(s): G89.4 - Chronic pain syndrome (9) Depression: (10) BPH (benign prostatic hyperplasia): (11) Vitamin D deficiency: (12) Neuropathic pain: (13) Anxiety: (14) Overactive bladder: (15) Nicotine dependence: PLAN: Plan 83 year old male with recent stroke, hospitalized for fall, rhabdomyolysis, complicated by influenza A, pneumonia, admitted to TCU with debility, here for rehabilitation, strengthening, prior to discharge home alone. * Debility - PT/OT. * Pain - Tylenol 1000mg q8, Oxycodone 2.5mg q6 prn pain (6-10), Butrans 10mcg td qweek, Lidoderm 2 patches td daily. * Bowel - Metamucil 1 pack daily prn, senna/colace 2 tablets bid, Magnesium citrate 300ml daily prn. * Adult immunization - Administer pneumonia vaccine, covid vaccine, flu vaccine as appropriate. * DVT prophylaxis - Lovenox 30mg sc daily. * Coronary artery disease - Isosorbide [place] 60mg daily, Aspirin 81mg daily, NTG 0.4mg sl q5m prn. * Hyperlipidemia - Atorvastatin 10mg qhs. * Depression - Bupropion SR 150mg q12, stable chronic intermodal dispatcher use, GDR not recommended. * Pneumonia - Doxycycline 100mg bid thru 11/24/2023. * BPH - Finasteride 5mg daily, Tamsulosin 0.4mg qhs. * Neuropathic pain - Gabapentin 100mg tid. * Anxiety - Hydroxyzine 25mg q8. * Appetite loss - Mirtazapine 45mg qhs, stable chronic intermodal dispatcher use, GDR not recommended. * Overactive bladder - Tolterodine 2mg daily.
[2023-11-17] MEDS: Doxycycline 100 MG CAPSULE PO (21:20)
[2023-11-17] MEDS: hydrOXYzine PAM 25 MG Capsule PO (21:20)
[2023-11-17] MEDS: Tamsulosin HCl 0.4 MG Capsule 0.400000000000000022 MG PO (21:20)
[2023-11-17] MEDS: Gabapentin 100 MG Capsule PO (21:20)
[2023-11-17] MEDS: Acetaminophen 500 MG Tablet 1000 MG PO (21:21)
[2023-11-17] MEDS: Atorvastatin Calcium 10 MG Tablet PO (21:21)
[2023-11-17] MEDS: Mirtazapine 15 MG Tablet 45 MG PO (21:21)
[2023-11-17] MEDS: buPROPion (SR) 150 MG Tablet.SA PO (21:22)
[2023-11-17 22:00] VITALS: PULSE 102; RESP 20; O2SAT 98
--- NOTE | 2023-11-17 22:42 | NURSING ---
Addendum entered by Annetta Bland 11/18/23 03:17: no further restlessness/agitation observed or reported, written communication left for Dr. Abel regarding episode of aggressive behavior and self transfers. Call light in reach. Patient also reports chewing tobacco at home, information included in written communication for Dr. Abel review this AM. Original Note: Patient observed walking in room without staff assist, call light not activated but within reach on bed. Upon entering room patient becomes agitated, becomes aggressive with staff AEB raising voice, using foul language, swinging arms toward staff. When attempting to assess cognition patient declines to answer questions, when patient asked to state location, patient states Sure the fuck not at home . Patient accepts assistance to toilet and assisted back to bed. Patient offered assist with television, patient accepts assistance, states I'm going to try and relax now . No further distress observed or reported at this time. Room camera on to monitor self transfers. Call light in reach, patient encouraged to use call light and request staff assist as needed, patient verbalizes understanding. Denies further requests at this time.
--- NOTE | 2023-11-18 03:59 | NURSING ---
Patient heard yelling loudly turn that fucking thing down! from nurses station. Patient immediately assessed by this nurse and PLANT PACKER, patient observed sitting up in bed, when patient asked why yelling patient states Oh I just wanted the TV turned down and I need to piss like a patrolman . TV turned down per preference, patient prefers to sleep with tv and lights on this HS, offered assist to toilet. Intermittent confusion observed this shift. PLANT PACKER remain with patient for toileting. Resps even and unlabored, cooperative at this time. Call light in reach.
[2023-11-18] MEDS: Enoxaparin 40 MG/0.4 ML Syringe SC (05:18)
[2023-11-18] MEDS: Gabapentin 100 MG Capsule PO ×3 (05:18→21:15)
[2023-11-18] MEDS: Acetaminophen 500 MG Tablet 1000 MG PO ×3 (05:21→21:16)
[2023-11-18] MEDS: hydrOXYzine PAM 25 MG Capsule PO ×3 (05:21→21:18)
[2023-11-18 05:43] VITALS: PULSE 78; RESP 18; O2SAT 93
[2023-11-18 06:12] LABS: Absolute Lymphocyte Count 1.36 X10^3/uL (0.83-4.51); Absolute Neutrophil Count 4.4 X10^3/uL (2.0-7.7); Basophil# 0.06 X10^3/uL; Basophil% 0.8 % (0-1); Eosinophil# 0.32 X10^3/uL; Eosinophils% 4.5 % (0-5); Hematocrit 36.2 % (40-54); Hemoglobin 11.2 g/dL (13.0-16.5); Lymphocyte # 1.36 X10^3/ul (0.83-4.51); Lymphocyte % 19.2 % (19-41); Mean Corp Hgb Conc 30.9 g/dL (32-36); Mean Corpuscular Hgb 28.9 pg (27.0-32.0); Mean Corpuscular Volume 93.3 fL (80-94); Mean Platelet Vol. 8.8 fl (6.2-12.0); Monocyte# 0.78 X10^3/uL; NRBC Flagged by Analyzer 0 % (0-5); Neutrophil # 4.39 X10^3/uL (2.7-7.7); Neutrophil % 61.8 % (47-70); Platelet Count 317 K/mm3 (150-450); RBC Distribution Width CV 14.8 % (11.6-14.6); RBC Distribution Width SD 50.4 fl (35.1-43.9); Red Blood Count 3.88 M/mm3 (4.6-6.2); White Blood Count 7.1 K/mm3 (4.4-11.0)
[2023-11-18 06:58] LABS: Anion Gap 10 (5-15); BUN 29 mg/dL (7-18); Calcium,Total 9.7 mg/dL (8.5-10.1); Chloride 108 mmol/L (98-107); Creatinine, Serum 0.85 mg/dL (0.70-1.30); EST Glomerular Filtration Rate 91 mL/min (>60); Est Glom Filt Rate - Afr Amer 110 mL/min (>60); Estimated Creatinine Clearance 60.48 ml/min; Glucose 93 mg/dL (74-106); Potassium 3.9 mmol/L (3.5-5.1); Sodium Level 143 mmol/L (136-145)
[2023-11-18] MEDS: Aspirin E.C. 81 MG Tablet PO (08:55)
[2023-11-18] MEDS: Lidocaine 5% Patch 2 PATCH TOPICAL (08:55)
[2023-11-18] MEDS: Doxycycline 100 MG CAPSULE PO ×2 (08:55→21:17)
[2023-11-18] MEDS: Isosorbide Mononitrate 60 MG Tablet PO (08:55)
[2023-11-18] MEDS: Tuberculin,Purif.prot.deriv. 50 TU/ML Vial 0.100000000000000006 ML ID (08:57)
[2023-11-18] MEDS: Finasteride 5 MG Tablet PO (08:57)
[2023-11-18] MEDS: buPROPion (SR) 150 MG Tablet.SA PO ×2 (08:58→21:19)
[2023-11-18] MEDS: Tolterodine Tartrate 2 MG CAP.SA PO (08:59)
--- NOTE | 2023-11-18 10:02 | NURSING ---
Urine culture and c&s ordered this AM for agitation and confusion. Attempt strait catheter for sterile specimen and unable to pass the prostate. Betadine used to cleanse penis and able to collect clean catch specimen into specimen cup.
[2023-11-18 10:08] LABS: Bacteria 0 SEEN /hpf (None Seen); Mucous, Urine 0 SEEN /hpf (<or=2+)
[2023-11-18 10:17] LABS: Color, Urine Yellow (Yellow); Glucose, Dipstick Normal (Normal); Ketone-Dipstick Negative (Negative); Leukocyte Esterase-Dipstick 500 /ul (Negative); Nitrite-Dipstick Negative (Negative); Occult Blood-Urine 150 /ul (Negative); Protein-Dipstick 15 mg/dl (Negative); Urine Bilirubin Dipstick Negative (Negative); Urine Clarity Clear (Clear); Urine Urobilinogen Normal (Normal)
[2023-11-18 10:44] LABS: Red Blood Cells-Urine 5-10 SEEN /hpf (0-5); Squamous Epithelial Cells - UA 0-5 SEEN /hpf (0-5); White Blood Cells 25-50 SEEN /hpf (0-5)
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
--- NOTE | 2023-11-18 15:34 | CASEMGMT ---
Social Work Met with patient to complete initial assessment. Pt known to this worker from previous stay. Verified contacts. Dtr provided updated advanced directives, naming dtr as POA. Copies were placed on chart. Discussed code status and pt stated, well I want to be DNR, but my dtr wants to keep me alive, so I guess I'll be a full code . SW advocated this it pt's decision. Pt stated, I've lived a good life then. DNR . Nursing updated. ROSA educated to Medicare benefit and copay coverage. ROSA will continue to follow for DC planning. Linda Muller AB[employer]IGINAL COMMUNITY COUNCIL MEMBER OPERATION MANAGER
--- NOTE | 2023-11-18 15:56 | CHAPLAIN ---
Type of Pastoral Visit _x__ Initial Visit ___ Follow-up Visit ___ On-call Visit ___ General Patient Visit ___ Spiritual Assessment ___ Family Conference ___ Bereavement ___ Rapid Response ___ Code Blue ___ Other (describe below) Pastoral Care Referral From _x__ Patient ___ Family ___ Nurse ___ Physician ___ Dentures Lab Technician ___ Operating Theatre Technician ___ Other (describe below) Sacrament/Intervention _x__ Active listening ___ Anointing ___ Restorationism ___ Bereavement ___ Communion ___ [place] exploration ___ _x__ Life review _x__ Prayer ___ Reconciliation ___ Sacrament of Sick _x__ Supportive presence ___ Wedding ___ Other (describe below) Pastoral Comments a get acquainted visit with the patient who describes his situation; pt has a worry which is for his home while he is away from it; pt has people that can get in that he knows and worries about his possessions; pt decided to call city police or mental health consultant for a house check; pt is offered support and someone to talk with; pt has limited support and people in his life; pt is not connected to a alevism or [place] community
[2023-11-18 16:00] VITALS: BP 119/63; PULSE 88; RESP 16; TEMP 37; O2SAT 94
[2023-11-18 16:42] VITALS: BMI 25.1
[2023-11-18] MEDS: guaiFENesin 600 MG Tablet PO (21:15)
[2023-11-18] MEDS: Mirtazapine 15 MG Tablet 45 MG PO (21:17)
[2023-11-18] MEDS: Tamsulosin HCl 0.4 MG Capsule 0.400000000000000022 MG PO (21:17)
[2023-11-18] MEDS: Atorvastatin Calcium 10 MG Tablet PO (21:17)
[2023-11-19] MEDS: Enoxaparin 40 MG/0.4 ML Syringe SC (05:15)
[2023-11-19] MEDS: Acetaminophen 500 MG Tablet 1000 MG PO ×3 (05:16→20:23)
[2023-11-19] MEDS: hydrOXYzine PAM 25 MG Capsule PO ×3 (05:17→20:26)
[2023-11-19] MEDS: Gabapentin 100 MG Capsule PO ×3 (05:18→20:28)
[2023-11-19] MEDS: Aspirin E.C. 81 MG Tablet PO (08:40)
[2023-11-19] MEDS: Isosorbide Mononitrate 60 MG Tablet PO (08:40)
[2023-11-19] MEDS: Doxycycline 100 MG CAPSULE PO ×2 (08:40→20:25)
[2023-11-19] MEDS: Tolterodine Tartrate 2 MG CAP.SA PO (08:40)
[2023-11-19] MEDS: Finasteride 5 MG Tablet PO (08:40)
[2023-11-19] MEDS: Lidocaine 5% Patch 2 PATCH TOPICAL (08:41)
[2023-11-19] MEDS: buPROPion (SR) 150 MG Tablet.SA PO ×2 (08:41→20:24)
[2023-11-19 08:58] VITALS: BP 100/59; PULSE 91
--- NOTE | 2023-11-19 08:58 | NURSING ---
Transportation Manager Note; Activity Asset: Complete Sam has returned to TCU for continued therapy. He remains independent in his choice of daily activities. His daughter will bring him items he may need from home. Sam will watch tv, read visit with family and welcomes visits from the reading aide. He has stated he is not interested in out of room activities and he is fine doing his own thing. Staff will continue to remind him of weekly activities and offer room activities and will respect his right to say no.
[2023-11-19] MEDS: Ciprofloxacin 250 MG Tablet PO ×2 (08:59→20:25)
[2023-11-19] MEDS: guaiFENesin 600 MG Tablet PO ×2 (09:01→20:24)
[2023-11-19 16:00] VITALS: BP 98/62; PULSE 94; RESP 14; TEMP 36.3; O2SAT 96
--- NOTE | 2023-11-19 16:17 | CASEMGMT ---
Addendum entered by Linda Muller 11/20/23 10:46: SW scheduled cot transport through [facility] for 1100 on 11/20. PASRR completed. DC paperwork sent to [facility]. Original Note: Social Work SW phoned dtr to update on events from yesterday and IDTs recommendation for transfer to a more appropriate facility. Dtr expressed understanding and noted this is pt's baseline, and they have been to a neurologist for further treatment recommendations. Dtr had provided updated advanced directives and dtr is POA, so she can make the decision for pt's transfer. SW offered to send SNF lists for dtr to make selections. Dtr provided email and SW sent SNF list with quality and resource data via [employer]. Dtr selected [facility] and [facility]. SW sent referrals to both SNFs. [facility] cannot accept pt's secondary insurance, [employer]. [facility] can accept. Pt would transfer skilled under Medicare benefit. SW updated dtr and dtr agreeable to DC to [facility] 11/20. SW to speak with pt, schedule transport, complete PASRR. Plan: DC 11/20 to [facility], skilled Linda Muller, KANCHAN [place]
--- NOTE | 2023-11-19 19:22 | NURSING ---
Butrans patch to left chest started to peel off, attempts were made to tape patch in place, attempts were unsuccessful. This nurse removed patch and discarded as directed. Patient denies pain at this time and has not needed PRN pain medications.
--- NOTE | 2023-11-19 19:38 | DS.PCM_ITS ---
Providers Date of Admission: 11/17/23 Primary Care Physician: Dr. Vishal Antonio MD Reason For Visit: RHABOLOMYOLYSIS Diagnosis Discharge Diagnosis (1) Debility: Status: Acute Code(s): R53.81 - Other malaise (2) Recent cerebrovascular accident (CVA): Status: Acute Code(s): Z86.73 - Personal history of transient ischemic attack (TIA), and cerebral infarction without residual deficits (3) Compression fracture of L2: Status: Acute Code(s): S32.020A - Wedge compression fracture of second lumbar vertebra, initial encounter for closed fracture (4) Rhabdomyolysis: Status: Acute Code(s): M62.82 - Rhabdomyolysis Qualifiers: Rhabdomyolysis type: traumatic Encounter type: initial encounter Qualified Code(s): T79.6XXA - Traumatic ischemia of muscle, initial encounter (5) Influenza A: Status: Acute Code(s): J10.1 - Influenza due to other identified influenza virus with other respiratory manifestations (6) Pneumonia: Status: Acute Code(s): J18.9 - Pneumonia, unspecified organism (7) Coronary artery disease: Status: Acute Code(s): I25.10 - Atherosclerotic heart disease of [place] coronary artery without angina pectoris (8) Chronic pain: Status: Chronic Code(s): G89.29 - Other chronic pain Qualifiers: Chronic pain type: chronic pain syndrome Qualified Code(s): G89.4 - Chronic pain syndrome (9) Depression: Status: Acute Code(s): F32.A - Depression, unspecified (10) BPH (benign prostatic hyperplasia): Status: Acute Code(s): N40.0 - Benign prostatic hyperplasia without lower urinary tract symptoms (11) Vitamin D deficiency: Status: Acute Code(s): E55.9 - Vitamin D deficiency, unspecified (12) Neuropathic pain: Status: Resolved Code(s): M79.2 - Neuralgia and neuritis, unspecified (13) Anxiety: Status: Acute Code(s): F41.9 - Anxiety disorder, unspecified (14) Overactive bladder: Status: Acute Code(s): N32.81 - Overactive bladder (15) Nicotine dependence: Status: Acute Code(s): F17.200 - Nicotine dependence, unspecified, uncomplicated Plan 83 year old male with recent stroke, hospitalized for fall, rhabdomyolysis, complicated by influenza A, pneumonia, admitted to TCU with debility, here for rehabilitation, strengthening, prior to discharge home alone. * Debility - PT/OT. * Pain - Tylenol 1000mg q8, Oxycodone 2.5mg q6 prn pain (6-10), Butrans 10mcg td qweek, Lidoderm 2 patches td daily. * Bowel - Metamucil 1 pack daily prn, senna/colace 2 tablets bid, Magnesium citr ate 300ml daily prn. * Adult immunization - Administer pneumonia vaccine, covid vaccine, flu vaccine as appropriate. * DVT prophylaxis - Lovenox 30mg sc daily. * Coronary artery disease - Isosorbide MN 60mg daily, Aspirin 81mg daily, NTG 0.4mg sl q5m prn. * Hyperlipidemia - Atorvastatin 10mg qhs. * Depression - Bupropion SR 150mg q12, stable chronic intermediate use, GDR not recommended. * Pneumonia - Doxycycline 100mg bid thru 11/24/2023. * BPH - Finasteride 5mg daily, Tamsulosin 0.4mg qhs. * Neuropathic pain - Gabapentin 100mg tid. * Anxiety - Hydroxyzine 25mg q8. 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 * Overactive bladder - Tolterodine 2mg daily. Medications at Discharge Home Medications finasteride 5 mg tablet (Proscar) 5 mg PO DAILY prostate 01/27/18 aspirin 81 mg tablet,delayed release (Adult Low Dose Aspirin) 81 mg PO DAILY heart health 07/30/18 tamsulosin 0.4 mg capsule 0.4 mg PO QHS prostate 10/21/21 isosorbide mononitrate 60 mg tablet,extended release 24 hr 60 mg PO DAILY heart #90 tabs 01/16/23 oxybutynin chloride 10 mg tablet,extended release 24 hr 10 mg PO DAILY overactive bladder 04/17/23 nitroglycerin 0.4 mg sublingual tablet 0.4 mg sublingual Q5M PRN Chest Pain #25 tabs 05/12/23 atorvastatin 10 mg tablet 10 mg PO QHS cholesterol 10/31/23 bupropion HCl 150 mg tablet,12 hr sustained-release 150 mg PO Q12H pain 10/31/23 hydroxyzine HCl 25 mg tablet 12.5 mg PO Q8H Mental Health 10/31/23 mirtazapine 45 mg tablet 45 mg PO QHS mental health 10/31/23 gabapentin 100 mg capsule 100 mg PO TID Pain 11/14/23 acetaminophen 500 mg tablet 1,000 mg (2 x 500 mg) PO Q8 Pain #0 tabs 11/17/23 lidocaine 5 % topical patch 2 patch topical DAILY Pain #0 ea 11/17/23 buprenorphine 10 mcg/hour weekly transdermal patch 1 patch transdermal FR pain 7 days #1 ea 11/19/23 ciprofloxacin HCl 250 mg tablet 250 mg PO BID 5 days #10 tabs 11/19/23 doxycycline monohydrate 100 mg capsule 100 mg PO BID 3 days #6 caps 11/19/23 guaifenesin 600 mg tablet, extended release 12 hr (Mucinex) 600 mg PO BID #0 tabs 11/19/23 nicotine 21 mg/24 hr daily transdermal patch 21 mg transdermal DAILY #0 ea 11/19/23 sennosides 8.6 mg-docusate sodium 50 mg tablet (Stool Softener-Stimulant Laxative) 2 tab PO BID #0 tabs 11/19/23 Hospital Course Operations None Procedures None Summary of Care Provided Minutes Spent on Discharge: 35 Hospital Course: 83 year old male with recent stroke, hospitalized for fall, rhabdomyolysis, complicated by influenza A, pneumonia, admitted to TCU with debility, here for rehabilitation, strengthening, prior to discharge home alone. 11/18/2023 UA c/w UTI, urine culture pending, Cipro 250mg bid x 7 days. Also on Doxycycline 100mg bid for pneumonia related to influenza A. Discharge to [facility] 11/21/2023, Skilled. Physical Exam Const alert General Appearance: cooperative HEENT normocephalic Eyes PERRL and EOMs intact bilaterally Neck supple, no JVD and no carotid bruits Resp normal respiratory effort, normal air movement and clear to auscultation bilaterally Cardio regular rate and regular rhythm GI normal to inspection, nondistended, normoactive bowel sounds, non-tender and non-distended Extremity normal capillary refill General Extremity: Negative for edema Skin no rashes or lesions noted General Skin Exam: no breakdown Psych affect normal Appearance: appropriate Weight / BMI Weight Weight: 72.62 kg Body Mass Index (BMI) 25.1 ABG / Lab / Microbiology Data 11/18/23 05:30 11/18/23 05:30 D/C Instructions Discharge Diet: No restrictions Discharge Activity: Return to Normal Activity, May Shower and Use Walker Weight Bearing Status: Weight bearing as tolerated Call your doctor if you observe: Fever of 101 or Higher, Inability to urinate, Inability to have a bowel movement, Shortness of breath, Dizziness, Fainting spells, Swelling in the ankles, Chest pain and Uncontrolled pain Additional Instructions: Discharge to [facility] 11/21/2023, Skilled. Meaningful Use Info Meaningful Use Diagnoses (Choose all that apply): None applicable Discharge Plan Admission Admit Date/Time: 11/17/23 16:54 Primary Reason for Your Visit: Debility. Attending Provider: Parth Abel Chi Primary Care Provider: Vishal Antonio Instructions Additional Instructions / Restrictions: Discharge to [facility] 11/21/2023, Skilled. Discharge Orders/Prescriptions Prescriptions: New sennosides-docusate sodium [Stool Softener-Stimulant Laxat] 8.6-50 mg Tablet 2 tab PO BID Qty: 0 0RF ciprofloxacin HCl 250 mg Tablet 250 mg PO BID 5 Days Qty: 10 0RF doxycycline monohydrate 100 mg Capsule 100 mg PO BID 3 Days Qty: 6 0RF nicotine 21 mg/24 hr Patch 24 Hour 21 mg transdermal DAILY Qty: 0 0RF guaifenesin [Mucinex] 600 mg Tablet Extended Release 12hr 600 mg PO BID Qty: 0 0RF Continued finasteride [Proscar] 5 mg tablet 5 mg PO DAILY aspirin [Adult Low Dose Aspirin] 81 mg tablet,delayed release (DR/EC) 81 mg PO DAILY tamsulosin 0.4 mg capsule 0.4 mg PO QHS oxybutynin chloride 10 mg tablet extended release 24hr 10 mg PO DAILY gabapentin 100 mg capsule 100 mg PO TID Patient Comments: take 1 capsule by mouth three times a day acetaminophen 500 mg Tablet 1,000 mg PO Q8 Qty: 0 0RF lidocaine 5 % Adhesive Patch,Medicated 2 patch topical DAILY Qty: 0 0RF Protocol: *Topical Application Instructions APPLICATION INSTRUCTIONS: Apply to lumbar spine and right and left paraspinal muscles. buprenorphine 10 mcg/hour patch weekly 1 patch transdermal FR 7 Days Qty: 1 0RF Patient Comments: took patch off today and did not put new one on atorvastatin 10 mg tablet 10 mg PO QHS Patient Comments: take 1 tablet by mouth at bedtime bupropion HCl 150 mg tablet sustained-release 12 hr 150 mg PO Q12H Patient Comments: take 1 tablet by mouth twice a day hydroxyzine HCl 25 mg tablet 12.5 mg PO Q8H mirtazapine 45 mg tablet 45 mg PO QHS Patient Comments: take 1 tablet by mouth once daily at bedtime isosorbide mononitrate 60 mg tablet extended release 24 hr 60 mg PO DAILY Qty: 90 3RF nitroglycerin 0.4 mg tablet, sublingual 0.4 mg SL Q5M PRN (Reason: Chest Pain) Qty: 25 3RF Discontinued Daily Fiber (psyllium-aspart) 3 gram Powder In Packet 1 packet PO DAILY PRN (Reason: loose stools) Qty: 0 0RF oxycodone 5 mg Tablet 2.5 mg PO Q6H PRN PRN (Reason: Pain Score 6-10) Qty: 0 0RF doxycycline hyclate 100 mg capsule 100 mg PO BID Qty: 14 0RF Referrals / Follow Up: Vishal Antonio MD [Primary Care Provider] - Disposition Disposition (needs filled in before D/C Order can be placed): [facility]
--- NOTE | 2023-11-19 19:46 | TREXTCAR_ITS ---
Diet Diet Order/Speech Therapy: 11/17/23 18:29 Diet: Regular - General Type of Dietary Supplement:: Ensure Plus High Protein Is pt able to select menu?: Yes Diet Comments: Ensure High Protein with Lunch Routine Orders/Code Status Code Status: DNRCC-A (No intubation.) Wound(s) Left forearm skin tear: Wound Type: Skin Tear Dressing Change: Adaptic, gauze Therapies Weight Bearing: Weight bearing as tolerated Extremity Affected:: Bilateral Lower Physical Therapy: Eval and Treat Occupational Therapy: Eval and Treat Speech Therapy: Eval and Treat Problem/Diagnosis (1) Debility: Status: Acute Code(s): R53.81 - Other malaise (2) Recent cerebrovascular accident (CVA): Status: Acute Code(s): Z86.73 - Personal history of transient ischemic attack (TIA), and cerebral infarction without residual deficits (3) Compression fracture of L2: Status: Acute Code(s): S32.020A - Wedge compression fracture of second lumbar vertebra, initial encounter for closed fracture (4) Rhabdomyolysis: Status: Acute Code(s): M62.82 - Rhabdomyolysis (5) Influenza A: Status: Acute Code(s): J10.1 - Influenza due to other identified influenza virus with other respiratory manifestations (6) Pneumonia: Status: Acute Code(s): J18.9 - Pneumonia, unspecified organism (7) Coronary artery disease: Status: Acute Code(s): I25.10 - Atherosclerotic heart disease of [place] coronary artery without angina pectoris (8) Chronic pain: Status: Chronic Code(s): G89.29 - Other chronic pain (9) Depression: Status: Acute Code(s): F32.A - Depression, unspecified Comment: ON MED (10) BPH (benign prostatic hyperplasia): Status: Acute Code(s): N40.0 - Benign prostatic hyperplasia without lower urinary tract symptoms (11) Vitamin D deficiency: Status: Acute Code(s): E55.9 - Vitamin D deficiency, unspecified (12) Neuropathic pain: Status: Resolved Code(s): M79.2 - Neuralgia and neuritis, unspecified (13) Anxiety: Status: Acute Code(s): F41.9 - Anxiety disorder, unspecified Comment: PRN MED (14) Overactive bladder: Status: Acute Code(s): N32.81 - Overactive bladder (15) Nicotine dependence: Status: Acute Code(s): F17.200 - Nicotine dependence, unspecified, uncomplicated Plan 83 year old male with recent stroke, hospitalized for fall, rhabdomyolysis, complicated by influenza A, pneumonia, admitted to TCU with debility, here for rehabilitation, strengthening, prior to discharge home alone. * Debility - PT/OT. * Pain - Tylenol 1000mg q8, Oxycodone 2.5mg q6 prn pain (6-10), Butrans 10mcg td qweek, Lidoderm 2 patches td daily. * Bowel - Metamucil 1 pack daily prn, senna/colace 2 tablets bid, Magnesium citrate 300ml daily prn. * Adult immunization - Administer pneumonia vaccine, covid vaccine, flu vaccine as appropriate. * DVT prophylaxis - Lovenox 30mg sc daily. * Coronary artery disease - Isosorbide MN 60mg daily, Aspirin 81mg daily, NTG 0.4mg sl q5m prn. * Hyperlipidemia - Atorvastatin 10mg qhs. * Depression - Bupropion SR 150mg q12, stable chronic usp use, GDR not rec ommended. * Pneumonia - Doxycycline 100mg bid thru 11/24/2023. * BPH - Finasteride 5mg daily, Tamsulosin 0.4mg qhs. * Neuropathic pain - Gabapentin 100mg tid. * Anxiety - Hydroxyzine 25mg q8. 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 * Overactive bladder - Tolterodine 2mg daily. Allergies/Procedures Done in Hospital Allergies No Known Allergies Allergy (Verified 10/07/23 19:32) Procedures: None Type of Care/Length of Stay Estimated LOS: More Than 30 Days Type of Care Needed: Skilled Rehab Potential: Fair Prognosis: Fair Additional Orders/Day of Discharge Day of Discharge: 11/21/23 Dietary and Speech Recommendations Dietitian Recommendations/Changes: continue regular diet, ensure plus high protein at lunch for additional nutrition if consumed Discharge Plan Admission Admit Date/Time: 11/17/23 16:54 Primary Reason for Your Visit: Debility. Attending Provider: Parth Abel Chi Primary Care Provider: Vishal Antonio Instructions Additional Instructions / Restrictions: Discharge to [facility] 11/21/2023, Skilled. Discharge Orders/Prescriptions Prescriptions: New sennosides-docusate sodium [Stool Softener-Stimulant Laxat] 8.6-50 mg Tablet 2 tab PO BID Qty: 0 0RF ciprofloxacin HCl 250 mg Tablet 250 mg PO BID 5 Days Qty: 10 0RF doxycycline monohydrate 100 mg Capsule 100 mg PO BID 3 Days Qty: 6 0RF nicotine 21 mg/24 hr Patch 24 Hour 21 mg transdermal DAILY Qty: 0 0RF guaifenesin [Mucinex] 600 mg Tablet Extended Release 12hr 600 mg PO BID Qty: 0 0RF Continued finasteride [Proscar] 5 mg tablet 5 mg PO DAILY aspirin [Adult Low Dose Aspirin] 81 mg tablet,delayed release (DR/EC) 81 mg PO DAILY tamsulosin 0.4 mg capsule 0.4 mg PO QHS oxybutynin chloride 10 mg tablet extended release 24hr 10 mg PO DAILY gabapentin 100 mg capsule 100 mg PO TID Patient Comments: take 1 capsule by mouth three times a day acetaminophen 500 mg Tablet 1,000 mg PO Q8 Qty: 0 0RF lidocaine 5 % Adhesive Patch,Medicated 2 patch topical DAILY Qty: 0 0RF Protocol: *Topical Application Instructions APPLICATION INSTRUCTIONS: Apply to lumbar spine and right and left paraspinal muscles. buprenorphine 10 mcg/hour patch weekly 1 patch transdermal FR 7 Days Qty: 1 0RF Patient Comments: took patch off today and did not put new one on atorvastatin 10 mg tablet 10 mg PO QHS Patient Comments: take 1 tablet by mouth at bedtime bupropion HCl 150 mg tablet sustained-release 12 hr 150 mg PO Q12H Patient Comments: take 1 tablet by mouth twice a day hydroxyzine HCl 25 mg tablet 12.5 mg PO Q8H mirtazapine 45 mg tablet 45 mg PO QHS Patient Comments: take 1 tablet by mouth once daily at bedtime isosorbide mononitrate 60 mg tablet extended release 24 hr 60 mg PO DAILY Qty: 90 3RF nitroglycerin 0.4 mg tablet, sublingual 0.4 mg SL Q5M PRN (Reason: Chest Pain) Qty: 25 3RF Discontinued Daily Fiber (psyllium-aspart) 3 gram Powder In Packet 1 packet PO DAILY PRN (Reason: loose stools) Qty: 0 0RF oxycodone 5 mg Tablet 2.5 mg PO Q6H PRN PRN (Reason: Pain Score 6-10) Qty: 0 0RF doxycycline hyclate 100 mg capsule 100 mg PO BID Qty: 14 0RF Referrals / Follow Up: Vishal Antonio MD [Primary Care Provider] - Disposition Disposition (needs filled in before D/C Order can be placed): Care Home Facility (4) Rhabdomyolysis Qualifiers: Rhabdomyolysis type: traumatic Encounter type: initial encounter Qualified Code(s): T79.6XXA - Traumatic ischemia of muscle, initial encounter (8) Chronic pain Qualifiers: Chronic pain type: chronic pain syndrome Qualified Code(s): G89.4 - Chronic pain syndrome
[2023-11-19] MEDS: Mirtazapine 15 MG Tablet 45 MG PO (20:24)
[2023-11-19] MEDS: Atorvastatin Calcium 10 MG Tablet PO (20:24)
[2023-11-19] MEDS: Tamsulosin HCl 0.4 MG Capsule 0.400000000000000022 MG PO (20:25)
[2023-11-19] MEDS: LORazepam 0.5 MG Tablet PO (20:28)
[2023-11-19 20:30] VITALS: RESP 16
[2023-11-20] MEDS: Gabapentin 100 MG Capsule PO ×3 (05:27→20:22)
[2023-11-20] MEDS: Acetaminophen 500 MG Tablet 1000 MG PO ×3 (05:27→20:31)
[2023-11-20] MEDS: Enoxaparin 40 MG/0.4 ML Syringe SC (05:28)
[2023-11-20] MEDS: hydrOXYzine PAM 25 MG Capsule PO ×3 (05:28→20:22)
[2023-11-20] MEDS: Aspirin E.C. 81 MG Tablet PO (09:44)
[2023-11-20] MEDS: Doxycycline 100 MG CAPSULE PO ×2 (09:45→20:23)
[2023-11-20] MEDS: Tolterodine Tartrate 2 MG CAP.SA PO (09:45)
[2023-11-20] MEDS: Ciprofloxacin 250 MG Tablet PO (09:45)
[2023-11-20] MEDS: guaiFENesin 600 MG Tablet PO ×2 (09:45→20:24)
[2023-11-20] MEDS: Isosorbide Mononitrate 60 MG Tablet PO (09:46)
[2023-11-20] MEDS: buPROPion (SR) 150 MG Tablet.SA PO ×2 (09:46→20:23)
[2023-11-20] MEDS: Finasteride 5 MG Tablet PO (09:46)
[2023-11-20] MEDS: Lidocaine 5% Patch 2 PATCH TOPICAL (09:46)
[2023-11-20 10:01] VITALS: BP 129/53; PULSE 73; RESP 16; TEMP 36.3; O2SAT 94
--- NOTE | 2023-11-20 12:19 | MDS.RN ---
Pain interview for MDS completed.
[2023-11-20 13:31] VITALS: PULSE 93; RESP 18; O2SAT 96
--- NOTE | 2023-11-20 18:33 | PCM.PN.DRR ---
TCU RX Drug Regimen Review Subjective/Objective Subjective/Objective: Subjective: TCU admission note. 83 year old male with recent stroke, hospitalized for fall, rhabdomyolysis, complicated by influenza A, pneumonia, admitted to TCU with debility, here for rehabilitation, strengthening, prior to discharge home alone. Objective: Allergies No Known Allergies Allergy (Verified 10/07/23 19:32) Current Medications Generic Name Dose Route Start Last Admin Trade Name Freq PRN Reason Stop Dose Admin Acetaminophen 1,000 mg 11/17/23 22:00 11/20/23 13:29 Acetaminophen 500 Mg Tablet PO 1,000 mg Q8 DIANA Administration Aspirin 81 mg 11/18/23 08:00 11/20/23 09:44 Aspirin E.C. 81 Mg Tablet PO 81 mg DAILYCM DIANA Administration Atorvastatin Calcium 10 mg 11/17/23 22:00 11/19/23 20:24 Atorvastatin Calcium 10 Mg Tablet PO 10 mg QHS DIANA Administration Buprenorphine 1 patch 11/21/23 10:00 Buprenorphine 10 Mcg Patch.Tdwk TD FR DIANA Bupropion HCl 150 mg 11/17/23 22:00 11/20/23 09:46 Bupropion (Sr) 150 Mg Tablet.Sa PO 150 mg Q12 DIANA Administration Doxycycline Monohydrate 100 mg 11/17/23 22:00 11/20/23 09:45 Doxycycline 100 Mg Capsule PO 11/24/23 10:01 100 mg BID DIANA Administration Enoxaparin Sodium 40 mg 11/18/23 06:00 11/20/23 05:28 Enoxaparin 40 Mg/0.4 Ml Syringe SC 40 mg DAILY@0600 DIANA Administration Finasteride 5 mg 11/18/23 10:00 11/20/23 09:46 Finasteride 5 Mg Tablet PO 5 mg DAILY DIANA Administration Gabapentin 100 mg 11/17/23 22:00 11/20/23 13:29 Gabapentin 100 Mg Capsule PO 100 mg TID DIANA Administration Guaifenesin 600 mg 11/18/23 22:00 11/20/23 09:45 Guaifenesin 600 Mg Tablet PO 600 mg BID DIANA Administration Hydroxyzine Pamoate 25 mg 11/17/23 22:00 11/20/23 13:29 Hydroxyzine Melissa 25 Mg Capsule PO 25 mg Q8 DIANA Administration Isosorbide Mononitrate 60 mg 11/18/23 10:00 11/20/23 09:46 Isosorbide Mononitrate 60 Mg Tablet PO 60 mg DAILY DIANA Administration Protocol Lidocaine 2 patch 11/18/23 10:00 11/20/23 09:46 Lidocaine 5% Patch TOPICAL 2 patch DAILY DIANA Administration Protocol Lorazepam 0.5 mg 11/18/23 07:40 11/19/23 20:28 Lorazepam 0.5 Mg Tablet PO 0.5 mg Q4H PRN PRN Administration ANXIETY/RESTLESSNESS/SLEEP Magnesium Citrate 300 ml 11/17/23 21:28 Magnesium Citrate 300 Ml PO DAILY PRN Constipation Mirtazapine 45 mg 11/17/23 22:00 11/19/23 20:24 Mirtazapine 15 Mg Tablet PO 45 mg QHS DIANA Administration Nicotine 21 mg 11/18/23 10:00 11/20/23 09:45 Nicotine 21 Mg Patch TD 21 mg DAILY DIANA Administration Nitroglycerin 0.4 mg 11/17/23 19:05 Nitroglycerin (Inpatient Use) 0.4 Mg Tab.Subl SL Q5M PRN CARDIAC/CHEST PAIN Oxycodone HCl 2.5 mg 11/17/23 18:16 Oxycodone 5 Mg Tablet PO Q6H PRN PRN Pain Score 6-10 Psyllium Hydrophilic Mucilloid 1 packet 11/17/23 18:16 Psyllium 1 Packet PO DAILY PRN loose stools Senna/Docusate Sodium 2 tablet 11/17/23 22:00 11/20/23 09:49 Senna/Docusate Sodium 1 Tablet PO Not Given BID [facility] Sodium Chloride 10 - 40 ml 11/17/23 17:20 0.9% Saline Lock 10 Ml Syringe IV UD PRN SALINE FLUSH Tamsulosin HCl 0.4 mg 11/17/23 22:00 11/19/23 20:25 Tamsulosin Hcl 0.4 Mg Capsule PO 0.4 mg QHS [facility] Administration Tolterodine Tartrate 2 mg 11/18/23 10:00 11/20/23 09:45 Tolterodine Tartrate 2 Mg Cap.Sa PO 2 mg DAILY DIANA Administration Tuberculin PPD 0.1 ml 11/25/23 10:00 Tuberculin,Purif.Prot.Deriv. 50 Tu/Ml Vial ID 11/25/23 10:01 X1 ONE Problem List (Updated 11/17/23 @ 21:[address] Parth Abel MD) Nicotine dependence (Acute) Vitamin D deficiency (Acute) Chronic pain (Chronic) Pneumonia (Acute) Influenza A (Acute) Compression fracture of L2 (Acute) Recent cerebrovascular accident (CVA) (Acute) Rhabdomyolysis (Acute) Overactive bladder (Acute) Coronary artery disease (Acute) Debility (Acute) Depression (Acute) Anxiety (Acute) BPH (benign prostatic hyperplasia) (Acute) Vital Signs Temp Pulse Resp BP Pulse Ox O2 Del Method 97.4 F L 93 18 129/53 H 96 Room Air 11/20/23 10:01 11/20/23 13:31 11/20/23 13:31 11/20/23 10:01 11/20/23 13:31 11/20/23 13:31 Oxygen Delivery Method Room Air Weight: 72.62 kg Body Mass Index (BMI) 25.1 Sodium 143 mmol/L (136-145) 11/18/23 05:30 Potassium 3.9 mmol/L (3.5-5.1) 11/18/23 05:30 Chloride 108 mmol/L (98-107) H 11/18/23 05:30 Carbon Dioxide 25.0 mmol/L (21.0-32.0) 11/18/23 05:30 Anion Gap 10 (5-15) 11/18/23 05:30 BUN 29 mg/dL (7-18) H 11/18/23 05:30 Creatinine 0.85 mg/dL (0.70-1.30) 11/18/23 05:30 Est GFR (MDRD) Af Amer 110 mL/min (>60) 11/18/23 05:30 Est GFR (MDRD) Non-Af 91 mL/min (>60) 11/18/23 05:30 BUN/Creatinine Ratio 34.0 RATIO (10-20) H 11/18/23 05:30 Glucose 93 mg/dL (74-106) 11/18/23 05:30 Assessment/Plan: 1. Pain: acetaminophen 1000 mg PO Q8H, oxycodone 2.5 mg PO Q6H PRN pain (6-10), buprenorphine 10 mcg TD weekly, lidocaine 2 patches topically daily. The patient has not received any PRN doses of oxycodone so far this admission. Please continue to monitor pain levels, PRN medication usage, LFTs (AST/ALT = 46/33 U/L on 11/14/23), respiratory depression, dizziness/drowsiness, syncope/ataxia/falls, constipation, and patch side erythema/irritation. 2. Bowel: psyllium 1 packet PO daily PRN constipation, magnesium citrate 300 mL PO daily PRN constipation, senna/docusate 2 tablets PO BID. The patient has not required any PRN doses of psyllium or magnesium citrate so far this admission. The patient's last bowel movement was 11/20/23. Please continue to monitor for PRN medication usage, bowel movements, diarrhea and constipation. 3. DVT prophylaxis: enoxaparin 40 mg subcutaneous daily. Please continue to monitor for s/s of a DVT such as pain/erythema/edema in an extremity, for bleeding/excessive bruising, hemoglobin levels (Hgb = 11.2 g/dL on 11/18/23), platelet count (Plt = 317 K/mm3 on ), renal function (serum creatinine = 0.85 mg/dL with creatinine clearance ~ 60 mL/min on 11/18/23), and for irritation around injection site. 4. CAD/hyperlipidemia: atorvastatin 10 mg PO QHS, aspirin 81 mg PO daily, isosorbide mononitrate 60 mg PO daily, nitroglycerin 0.4 mg PO Q5min PRN chest pain. The patient has not required any PRN doses of nitroglycerin so far this admissino. Please continue to monitor for chest pain, shortness of breath, myalgias, lipid levels (cholesterol = 127 mg/dL with LDL = 65 mg/dL on 11/01/23), for s/s of bruising/bleeding, platelet counts (Plt = 317 K/mm3 on ), for GI distress with aspirin administration, blood pressures (recent range = 98-135/53-86 mmHg), and for headache. 5. Pneumonia: doxycycline 100 mg PO BID through 11/14/23. Please continue to monitor for resolution of s/s of pneumonia, WBC count (WBC =7.1 K/mm3 on 11/18/23), for fevers (recent temps = 97.3-98.6 F), for shortness of breath, and for s/s of esophageal distress with doxycycline administration. 6. BPH: finasteride 5 mg PO daily, tamsulosin 0.4 mg PO daily. Please continue to monitor for urinary retention, urine stream, and for s/s of orthostasis. 7. Overactive bladder: tolterodine 2 mg PO daily. Please continue to monitor for bladder spasms, dry mouth, headache, dry skin, and constipation. 8. Neuropathic pain: gabapentin 100 mg PO TID. Please continue to monitor for neuropathic pain, sedation, dizziness/drowsiness renal function (serum creatinine = 0.85 mg/dL with creatinine clearance ~ 60 mL/min on 11/18/23) and for lower extremity edema. 9. Nicotine dependence: nicotine 21 mg patch TD daily. Please continue to monitor for s/s of nicotine withdrawal symptoms/cravings, for nightmares, headache, and back pain. 10. Cough: guaifenesin 600 mg PO BID. Please continue to monitor for cough/congestion. Assessment/Plan for indications treated with psychotropic medications: 1. Depression: bupropion SR 150 mg PO BID. Please see provider note regarding stable chronic long-term therapy GDR not recommended. Please continue to monitor for s/s of depression, for SI, s/s of seizures, for tachycardia and constipation. 2. Anxiety: hydroxyzine 25 mg PO Q8H, lorazepam 0.5 mg PO Q4H PRN anxiety/restlessness/sleep. The patient has required 1 dose of PRN lorazepam so far this admission. Please continue to monitor for anxiety, for PRN medication usage, dry mouth, drowsiness, respiratory depression, and headaches. 3. Appetite loss: mirtazapine 45 mg PO QHS. Please see provider not regarding stable chronic long-term therapy GDR not recommended. Please continue to monitor appetite, for drowsiness, and for s/s of sertotonin syndrome. Medical chart and medication regimen reviewed. The following medication irregularities or issues were identified: NA Date Date of Note:: 11/20/23
--- NOTE | 2023-11-20 18:52 | NURSING ---
daughter here and took patient wallet with her since pt being DC'd to [facility].
[2023-11-20] MEDS: Mirtazapine 15 MG Tablet 45 MG PO (20:23)
[2023-11-20] MEDS: Atorvastatin Calcium 10 MG Tablet PO (20:24)
[2023-11-20] MEDS: Tamsulosin HCl 0.4 MG Capsule 0.400000000000000022 MG PO (20:24)
[2023-11-21] MEDS: Enoxaparin 40 MG/0.4 ML Syringe SC (05:43)
[2023-11-21] MEDS: Gabapentin 100 MG Capsule PO (05:43)
[2023-11-21] MEDS: Acetaminophen 500 MG Tablet 1000 MG PO (05:43)
[2023-11-21] MEDS: hydrOXYzine PAM 25 MG Capsule PO (05:44)
[2023-11-21 05:56] VITALS: PULSE 86; RESP 16; O2SAT 97
--- NOTE | 2023-11-21 09:11 | NURSING ---
Cardiovascular Specialist Note; MDS for 11/21/2023 Complete
[2023-11-21] MEDS: Tolterodine Tartrate 2 MG CAP.SA PO (09:30)
[2023-11-21] MEDS: Aspirin E.C. 81 MG Tablet PO (09:30)
[2023-11-21] MEDS: buPROPion (SR) 150 MG Tablet.SA PO (09:30)
[2023-11-21] MEDS: Finasteride 5 MG Tablet PO (09:30)
[2023-11-21] MEDS: Doxycycline 100 MG CAPSULE PO (09:30)
[2023-11-21] MEDS: Isosorbide Mononitrate 60 MG Tablet PO (09:30)
[2023-11-21] MEDS: guaiFENesin 600 MG Tablet PO (09:30)
[2023-11-21] MEDS: Lidocaine 5% Patch 2 PATCH TOPICAL (09:31)
[2023-11-21] MEDS: Buprenorphine 10 MCG PATCH.TDWK 1 PATCH TD (10:40)
--- NOTE | 2023-11-21 11:31 | NURSING ---
report called to Bhakti at [facility] at this time, pt off unit via cot transported physicians ambulance.
--- NOTE | 2023-11-21 16:15 | CASEMGMT ---
Social Work BIMS () and PHQ-2 () completed for MDS assessment. Linda Muller MSW SENIOR SYSTEMS ADMINISTRATOR
--- NOTE | 2023-11-27 13:20 | MDS.RN ---
Information for the mds was obtained from review of the clinical record, interview of resident, staff, and direct observation of resident's care.
== END 2023-11-21 11:00 | disposition skilled nursing facility (03) | DRG 194 ==
PROVIDERS: Admitting Provider Family Medicine Geriatric Medicine; PCP Family Medicine; Referring Provider Family Medicine Geriatric Medicine; Visit Provider Family Medicine Geriatric Medicine
DX: J10.00 Influenza due to other identified influenza virus with unspecified type of pneumonia (principal); N39.0 Urinary tract infection, site not specified; E55.9 Vitamin D deficiency, unspecified; I69.398 Other sequelae of cerebral infarction; F32.A Depression, unspecified; F17.210 Nicotine dependence, cigarettes, uncomplicated; I25.10 Atherosclerotic heart disease of native coronary artery without angina pectoris; F41.9 Anxiety disorder, unspecified; E78.5 Hyperlipidemia, unspecified; T79.6XXD Traumatic ischemia of muscle, subsequent encounter; M48.56XD Collapsed vertebra, not elsewhere classified, lumbar region, subsequent encounter for fracture with routine healing; N32.81 Overactive bladder; G89.4 Chronic pain syndrome; N40.0 Benign prostatic hyperplasia without lower urinary tract symptoms; Z79.899 Other long term (current) drug therapy; Z79.82 Long term (current) use of aspirin
CPT/HCPCS: 36415; 80048; 81001; 85025; 87086; 87088; 97110; 97162; 97166; 97530; 97535; 97802

== ENCOUNTER 2023-12-25 12:15 | Inpatient (IN) | payer MEDICARE, BC, SELFPAY ==
[2023-12-25 12:15] VITALS: BP 95/57; PULSE 102; RESP 16; TEMP 36.7; O2SAT 100
[2023-12-25] MEDS: 0.9% Normal Saline (1000mL) 1,000 ML 200 ML IV (12:30)
--- NOTE | 2023-12-25 12:31 | EDS_ITS ---
HPI History of Present Illness Chief Complaint: Abn Labs Informant: patient and friend (Body Liner) Narrative Narrative: 83-year-old male sent to the ER after labs this morning showed acute renal failure with hyperkalemia. Patient states this was done at Dr. Greenberg's office at [facility], he states he has no idea why he sees hematology/oncology. The solutions engineer is not sure either. The patient has fatigue but does not have any acute symptoms right now. Denies any fluid retention. [facility] Medical History Acute cerebrovascular accident (CVA) Adenocarcinoma Alcohol use Ambulates with cane Anxiety Arthritis Atherosclerosis of coronary artery of [place] heart without angina pectoris Back pain BPH (benign prostatic hyperplasia) Bright's disease Cancer Cardiology follow-up encounter Chest pain Chewing tobacco nicotine dependence Chronic pain Chronic pain Cognitive impairment Colon cancer CVA (cerebral vascular accident) Depression Easy bruising Essential (primary) hypertension Fall Frequent falls Gait instability Hearing loss, left Hearing loss, right High cholesterol History of echocardiogram History of heart attack History of pain when walking History of prostate cancer History of radiation therapy History of stress test HLD (hyperlipidemia) Kidney disease Kidney stones Myocardial infarct Old inferior wall myocardial infarction Smoker Vision loss of left eye Vision loss of right eye Vitamin D deficiency Wears dentures Wears glasses Wears hearing aid Home Medications finasteride 5 mg tablet (Proscar) 5 mg PO DAILY PROSTATE 01/27/18 [History Last Taken 12/25/23] aspirin 81 mg tablet,delayed release (Adult Low Dose Aspirin) 81 mg PO DAILY HEART HEALTH 07/30/18 [History Last Taken 12/25/23] tamsulosin 0.4 mg capsule 0.4 mg PO QHS PROSTATE 10/21/21 [History Last Taken 12/24/23] nitroglycerin 0.4 mg sublingual tablet 0.4 mg sublingual Q5M PRN CHEST PAIN #25 tabs 05/12/23 [Rx Last Taken Unknown] atorvastatin 10 mg tablet 10 mg PO QHS CHOLESTEROL 10/31/23 [History Last Taken 12/24/23] bupropion HCl 150 mg tablet,12 hr sustained-release 150 mg PO BID DEPRESSION 0 10/31/23 [History Last Taken 12/25/23] hydroxyzine HCl 25 mg tablet 12.5 mg PO TID PRN MENTAL HEALTH 10/31/23 [History Last Taken Unknown] mirtazapine 45 mg tablet 45 mg PO QHS DEPRESSION 10/31/23 [History Last Taken 12/24/23] gabapentin 100 mg capsule 100 mg PO TID NEUROPATHY 11/14/23 [History Last Taken 12/25/23] lidocaine 5 % topical patch 2 patch topical DAILY PAIN #0 ea 11/17/23 [Rx Last Taken 11/17/23 09:50] buprenorphine 10 mcg/hour weekly transdermal patch 1 patch transdermal FR PAIN 7 days #1 ea 11/19/23 [Rx Last Taken Unknown] sennosides 8.6 mg-docusate sodium 50 mg tablet (Stool Softener-Stimulant Laxative) 2 tab PO BID STOOL SOFTENER #0 tabs 11/19/23 [Rx Last Taken 12/25/23] isosorbide mononitrate 60 mg tablet,extended release 24 hr 60 mg PO DAILY HEART #90 tabs 12/15/23 [Rx Last Taken 12/25/23] acetaminophen 500 mg tablet 1,000 mg PO Q6H PRN PAIN 12/25/23 [History Last Taken Unknown] atenolol 25 mg tablet 12.5 mg PO DAILY BLOOD PRESSURE 12/25/23 [History Last Taken 12/25/23] baclofen 10 mg tablet 5 - 10 mg PO TID PRN MUSCLE SPASMS 12/25/23 [History Last Taken 12/25/23] cimetidine 400 mg tablet 400 mg PO DAILY ULCERS 12/25/23 [History Last Taken 12/25/23] Allergy/AdvReac Type Severity Reaction Status Date / Time No Known Allergies Allergy Verified 12/25/23 12:16 Family History Father Cancer skin cancer Mother Myocardial infarction Diabetes Other Fall Surgical History (Updated 11/25/23 @ 00:02 by Fanny Tello) H/O percutaneous transluminal coronary angioplasty (11/13/93) History of angioplasty History of colostomy History of cystoscopy History of inguinal hernia repair, bilateral History of left heart catheterization (02/24/02) History of rotator cuff surgery Hx of appendectomy Hx of colectomy Status post trigger finger release Social History household members: none Smoking Status: Never smoker alcohol intake: current alcohol intake frequency: a few times a month Alcohol type: hard liquor substance use type: does not use caffeine: Yes Type: coffee Number of servings: 1 ROS ROS ED Constitutional Constitutional ED: Reports fatigue; Denies chills or fever(s) Eyes Eyes: Denies change in vision or diplopia ENT ENT ED: Denies rhinorrhea or sore throat Cardiovascular Cardiovascular: Denies chest pain, orthopnea or palpitations Respiratory/Chest Respiratory/Chest: Reports dyspnea on exertion; Denies cough, dyspnea or orthopnea Gastrointestinal Gastrointestinal: Denies abdominal pain, diarrhea, nausea or vomiting Genitourinary Genitourinary ED: Denies dysuria or hematuria Musculoskeletal Musculoskeletal: Denies back pain or neck pain Integumentary Denies abscess or rash Neurologic Neurologic: Denies headache(s), paresthesias or weakness Psychiatric Psychiatric: Denies anxiety or suicidal thoughts EXAM Physical Exam Const Vital Signs: 12/25/23 12:15 12/25/23 12:15 12/25/23 14:08 Temperature 98.1 F Temperature Source Temporal Pulse Rate 102 H 95 Respiratory Rate 16 28 H Respiratory Pattern Normal Blood Pressure 95/57 L Blood Pressure Mean 69 Pulse Ox 100 Oxygen Delivery Method Room Air 12/25/23 14:15 Temperature Temperature Source Pulse Rate 94 Respiratory Rate 22 H Respiratory Pattern Blood Pressure 122/73 H Blood Pressure Mean 89 Pulse Ox 98 Oxygen Delivery Method Positive well nourished and well developed General Appearance ED: well developed and NAD HEENT Reports moist mucous membranes normocephalic and atraumatic Eyes PERRL and EOMs intact bilaterally Neck full ROM and supple Chest Wall Chest Narrative: Right upper chest Mediport site benign appearing Resp normal respiratory effort and clear to auscultation bilaterally Cardio regular rate and regular rhythm Rate: other Other Details: faint HSs GI non-tender and non-distended Auscultation: normoactive bowel sounds Palpation: soft Back/Spine no CVA tenderness General Back: other FROM Extremity normal to inspection General Extremety ED: Negative for edema, pulses abnormal or tenderness General Extremity: Negative for edema or pulses abnormal Neuro oriented x3, CN's II-XII intact bilaterally and no sensory deficits noted Neuro Narrative: Normal speech Sensorium / Orientation: awake and alert Motor Exam: general weakness Psych mental status grossly normal Skin no rashes or lesions noted and no wounds MDM MDM MDM Narrative Medical decision making narrative: After seeing the patient I did receive a fax concerning the patient's labs this morning which are not in our system, but from [facility]. They show BUN 55, creatinine 2.24, potassium 6.1, calcium 11.0. It appears that CT of the chest, abdomen, pelvis was desired, they were attempting to obtain them with IV contrast, however the orders were changed to without IV contrast after seeing these lab results, the patient did get these images, and Dr. Greenberg sent a note to us saying that he reviewed the images, which are not available to us, and that there was no evidence of hydroureter or hydronephrosis and the bladder does not appear to be over distended. 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 Labs here do show hyperkalemia, hyponatremia. Adrenal insufficiency could cause this, but he does not appear to be hypotensive or necessarily an adrenal crisis at this time. Calcium is normal here. He was given Kayexalate. There are no specific EKG changes of hyperkalemia at this time. His renal function is noted and is significantly worse than his prior measurements. Plan is for admission. History & Record Review Additional record(s) reviewed:: Prior labs and Other (Recent TCU transfer summary, sent [facility]; recent admission for CVA) Lab Data Attestation: I reviewed the patient's lab results. Labs: Laboratory Results - last 24 hr 12/25/23 13:05 WBC 15.0 H RBC 5.05 Hgb 14.8 Hct 47.8 MCV 94.7 H MCH 29.3 MCHC 31.0 L RDW Std Deviation 51.1 H RDW Coeff of Kathryn 14.7 H Plt Count 237 MPV 8.7 Immature Gran % (Auto) 0.700 Neut % (Auto) 88.6 H Lymph % (Auto) 4.7 L [place] % (Auto) 5.5 Eos % (Auto) 0.2 Baso % (Auto) 0.3 Absolute Neuts (auto) 13.3 H Absolute Lymphs (auto) 0.70 L Nucleated RBC % 0 Sodium 124 L Potassium 6.9 H* Chloride 104 Carbon Dioxide 14.0 L Anion Gap 6 BUN 57 H Creatinine 2.75 H Est GFR (MDRD) Af Amer 28 L Est GFR (MDRD) Non-Af 24 L BUN/Creatinine Ratio 20.7 H Glucose 142 H Calcium 9.8 Rhythm Strip Rhythm Strip: Sinus Rhythm Rate: 95 Ectopy: None EKG Initial EKG: Attestation: I personally reviewed and interpreted this EKG as follows: Interpretation: Sinus Rhythm and No Acute Injury Pattern Comments: First-degree AV block which is unchanged, otherwise no acute hyperkalemic changes noted Prior EKG tracings: available for review Prior: Unchanged Discharge Plan Triage Chief Complaint: Abn Labs ED Provider: Sachin Real Dx/Rx/DC Orders Clinical Impression: TORRIE (acute kidney injury), Acute hyponatremia, Acute hyperkalemia Prescriptions: No Action finasteride [Proscar] 5 mg tablet 5 mg PO DAILY aspirin [Adult Low Dose Aspirin] 81 mg tablet,delayed release (DR/EC) 81 mg PO DAILY tamsulosin 0.4 mg capsule 0.4 mg PO QHS gabapentin 100 mg capsule 100 mg PO TID lidocaine 5 % Adhesive Patch,Medicated 2 patch topical DAILY Qty: 0 0RF Protocol: *Topical Application Instructions APPLICATION INSTRUCTIONS: Apply to lumbar spine and right and left paraspinal muscles. Patient Comments: PT CURRENTLY DOES NOT HAVE A PATCH ON ( OF 12/25/23) sennosides-docusate sodium [Stool Softener-Stimulant Laxat] 8.6-50 mg Tablet 2 tab PO BID Qty: 0 0RF buprenorphine 10 mcg/hour patch weekly 1 patch transdermal FR 7 Days Qty: 1 0RF Patient Comments: PT CURRENTLY DOES NOT HAVE A PATCH ON ( OF 12/25/23) atorvastatin 10 mg tablet 10 mg PO QHS bupropion HCl 150 mg tablet sustained-release 12 hr 150 mg PO BID hydroxyzine HCl 25 mg tablet 12.5 mg PO TID PRN (Reason: MENTAL HEALTH ) mirtazapine 45 mg tablet 45 mg PO QHS atenolol 25 mg tablet 12.5 mg PO DAILY baclofen 10 mg tablet 5 - 10 mg PO TID PRN (Reason: MUSCLE SPASMS) cimetidine 400 mg tablet 400 mg PO DAILY acetaminophen 500 mg Tablet 1,000 mg PO Q6H PRN (Reason: PAIN ) nitroglycerin 0.4 mg tablet, sublingual 0.4 mg SL Q5M PRN (Reason: CHEST PAIN ) Qty: 25 3RF isosorbide mononitrate 60 mg tablet extended release 24 hr 60 mg PO DAILY Qty: 90 3RF Primary Care Provider: Vishal Antonio Referrals: Vishal Antonio MD [Primary Care Provider] - Disposition Disposition: Acute Care [facility]
--- NOTE | 2023-12-25 12:31 | EKG12_ITS ---
Test Reason : ABN LABS Blood Pressure : / mmHG Vent. Rate : 096 BPM Atrial Rate : 096 BPM P-R Int : 248 ms QRS Dur : 094 ms QT Int : 324 ms P-R-T Axes : 068 -67 071 degrees QTc Int : 409 ms Sinus rhythm with 1st degree A-V block Left axis deviation Inferior infarct , age undetermined Abnormal ECG Confirmed by Merlin Cedeno ([id number]), video tape editor YADI JAY ([id number]) on 12/26/2023 11:00:48 AM Referred By: Confirmed By:Merlin Cedeno
[2023-12-25 13:18] LABS: Absolute Neutrophil Count 13.3 X10^3/uL (2.0-7.7); Basophil# 0.04 X10^3/uL; Basophil% 0.3 % (0-1); Eosinophil# 0.03 X10^3/uL; Eosinophils% 0.2 % (0-5); Hematocrit 47.8 % (40-54); Hemoglobin 14.8 g/dL (13.0-16.5); Lymphocyte % 4.7 % (19-41); Mean Corpuscular Hgb 29.3 pg (27.0-32.0); Mean Corpuscular Volume 94.7 fL (80-94); Mean Platelet Vol. 8.7 fl (6.2-12.0); Monocyte# 0.82 X10^3/uL; Monocyte% 5.5 % (0-10); NRBC Flagged by Analyzer 0 % (0-5); Neutrophil # 13.25 X10^3/uL (2.7-7.7); Neutrophil % 88.6 % (47-70); Platelet Count 237 K/mm3 (150-450); RBC Distribution Width CV 14.7 % (11.6-14.6); RBC Distribution Width SD 51.1 fl (35.1-43.9); Red Blood Count 5.05 M/mm3 (4.6-6.2)
[2023-12-25 13:49] LABS: Anion Gap 6 (5-15); BUN 57 mg/dL (7-18); BUN/Creat Ratio 20.7 RATIO (10-20); Calcium,Total 9.8 mg/dL (8.5-10.1); Chloride 104 mmol/L (98-107); Creatinine, Serum 2.75 mg/dL (0.70-1.30); EST Glomerular Filtration Rate 24 mL/min (>60); Est Glom Filt Rate - Afr Amer 28 mL/min (>60); Glucose 142 mg/dL (74-106); Potassium 6.9 mmol/L (3.5-5.1); Sodium Level 124 mmol/L (136-145)
[2023-12-25] MEDS: Sodium Polystyrene Sulfonate 15 GM/60 ML UDC PO (13:56)
[2023-12-25 14:08] VITALS: PULSE 95; RESP 28
[2023-12-25 14:15] VITALS: BP 122/73; PULSE 94; RESP 22; O2SAT 98
[2023-12-25 15:26] VITALS: BP 95/58; PULSE 94; RESP 22; TEMP 36.3; O2SAT 98
[2023-12-25 15:33] LABS: Mucous, Urine 0 SEEN /hpf (<or=2+); Red Blood Cells-Urine 0 SEEN /hpf (0-5)
--- NOTE | 2023-12-25 15:35 | PCM.HP.STD ---
HPI - General General Date of Admission: 12/25/23 HPI Narrative HOWIE MANZO, is a 83 M who presents to the hospital the request of his oncologist for abnormal labs. He had labs done at [facility] in [facility] and was found to have hyperkalemia with acute renal failure as well as hypercalcemia. Here in the hospital on presentation he was found to be hyperkalemic with a potassium of 6.9 was given IV fluids and Kayexalate. Creatinine was 2.75, his baseline is around 0.9, however his calcium was normal at 9.8. He also has a leukocytosis with unclear etiology. Urine sample is still pending given his renal failure. EKG was normal with no signs of peaked T waves. He says that he feels little bit weak but he is a fairly poor informant states he does not know why he sees hem/onc. None of his medications leading to significant renal failure, differential on his CBC demonstrates neutrophilic process, eosinophils are normal. [facility] Medical History Acute cerebrovascular accident (CVA) Adenocarcinoma Alcohol abuse Alcohol use Ambulates with cane Anxiety Arthritis Atherosclerosis of coronary artery of [place] heart without angina pectoris Back pain BPH (benign prostatic hyperplasia) Bright's disease Cancer Cardiology follow-up encounter Chest pain Chewing tobacco nicotine dependence Chronic pain Chronic pain Cognitive impairment Colon cancer CVA (cerebral vascular accident) Depression Easy bruising Essential (primary) hypertension Fall Frequent falls Gait instability GI bleed Hearing loss, left Hearing loss, right High cholesterol History of echocardiogram History of heart attack History of pain when walking History of prostate cancer History of radiation therapy History of stress test HLD (hyperlipidemia) Kidney disease Kidney stones Myocardial infarct Non-smoker Old inferior wall myocardial infarction Smoker Stroke/cerebrovascular accident Vision loss of left eye Vision loss of right eye Vitamin D deficiency Wears dentures Wears glasses Wears hearing aid Home Medications finasteride 5 mg tablet (Proscar) 5 mg PO DAILY PROSTATE 01/27/18 [History Last Taken 12/25/23] aspirin 81 mg tablet,delayed release (Adult Low Dose Aspirin) 81 mg PO DAILY HEART HEALTH 07/30/18 [History Last Taken 12/25/23] tamsulosin 0.4 mg capsule 0.4 mg PO QHS PROSTATE 10/21/21 [History Last Taken 12/24/23] nitroglycerin 0.4 mg sublingual tablet 0.4 mg sublingual Q5M PRN CHEST PAIN #25 tabs 05/12/23 [Rx Last Taken Unknown] atorvastatin 10 mg tablet 10 mg PO QHS CHOLESTEROL 10/31/23 [History Last Taken 12/24/23] bupropion HCl 150 mg tablet,12 hr sustained-release 150 mg PO BID DEPRESSION 10/31/23 [History Last Taken 12/25/23] hydroxyzine HCl 25 mg tablet 12.5 mg PO TID PRN MENTAL HEALTH 10/31/23 [History Last Taken Unknown] mirtazapine 45 mg tablet 45 mg PO QHS DEPRESSION 10/31/23 [History Last Taken 12/24/23] gabapentin 100 mg capsule 100 mg PO TID NEUROPATHY 11/14/23 [History Last Taken 12/25/23] lidocaine 5 % topical patch 2 patch topical DAILY PAIN #0 ea 11/17/23 [Rx Last Taken 11/17/23 09:50] buprenorphine 10 mcg/hour weekly transdermal patch 1 patch transdermal FR PAIN 7 days #1 ea 11/19/23 [Rx Last Taken Unknown] sennosides 8.6 mg-docusate sodium 50 mg tablet (Stool Softener-Stimulant Laxative) 2 tab PO BID STOOL SOFTENER #0 tabs 11/19/23 [Rx Last Taken 12/25/23] isosorbide mononitrate 60 mg tablet,extended release 24 hr 60 mg PO DAILY HEART #90 tabs 12/15/23 [Rx Last Taken 12/25/23] acetaminophen 500 mg tablet 1,000 mg PO Q6H PRN PAIN 12/25/23 [History Last Taken Unknown] atenolol 25 mg tablet 12.5 mg PO DAILY BLOOD PRESSURE 12/25/23 [History Last Taken 12/25/23] baclofen 10 mg tablet 5 - 10 mg PO TID PRN MUSCLE SPASMS 12/25/23 [History Last Taken 12/25/23] cimetidine 400 mg tablet 400 mg PO DAILY ULCERS 12/25/23 [History Last Taken 12/25/23] Allergy/AdvReac Type Severity Reaction Status Date / Time No Known Allergies Allergy Verified 12/25/23 12:16 Family History Father Cancer skin cancer Mother Myocardial infarction Diabetes Other Fall Surgical History H/O percutaneous transluminal coronary angioplasty (11/13/93) History of angioplasty History of colostomy History of cystoscopy History of inguinal hernia repair, bilateral History of left heart catheterization (02/24/02) History of rotator cuff surgery Hx of appendectomy Hx of colectomy Status post trigger finger release Social History household members: none Smoking Status: Never smoker alcohol intake: current alcohol intake frequency: a few times a month Alcohol type: hard liquor substance use type: does not use caffeine: Yes Type: coffee Number of servings: 1 ROS Constitutional Constitutional: Reports weakness; Denies chills, fatigue, fever(s) or malaise Eyes Eyes: Denies blurry vision ENT HEENT: Denies headache(s) or nasal discharge Cardiovascular Cardiovascular: Denies chest pain, dyspnea on exertion or syncope Respiratory/Chest Respiratory/Chest: Reports shortness of breath with exertion; Denies cough or shortness of breath at rest Gastrointestinal Gastrointestinal: Denies constipation, diarrhea, nausea or vomiting Genitourinary Genitourinary: Denies dysuria Neurologic Neurologic: Denies focal weakness, numbness or tremor(s) Psychiatric Psychiatric: Denies anxiety or depression Vital Signs Vital Signs Vital Signs: 12/25/23 12:15 12/25/23 12:15 12/25/23 14:08 Temperature 98.1 F Temperature Source Temporal Pulse Rate 102 H 95 Respiratory Rate 16 28 H Respiratory Pattern Normal Blood Pressure 95/57 L Blood Pressure Mean 69 Pulse Ox 100 Oxygen Delivery Method Room Air 12/25/23 14:15 12/25/23 15:26 Temperature 97.3 F L Temperature Source Pulse Rate 94 94 Respiratory Rate 22 H 22 H Respiratory Pattern Blood Pressure 122/73 H 95/58 L Blood Pressure Mean 89 70 Pulse Ox 98 98 Oxygen Delivery Method Physical Exam Narrative General: Alert, Oriented x3, Cooperative, No apparent distress HEENT: Atraumatic, PERRLA, EOMI, Normocephalic Oral: Dry mucosa Neck: Supple, No JVD Lungs: Diminished, Normal air movement, No rhonchi, No wheeze, No rales Cardiovascular: Tachycardic, Regular Rhythm, Normal S1, Normal S2, No murmurs, MediPort in the right chest Abdomen: Soft, Non Tender, Non-Distended, No Hepato-splenomegaly, ostomy left lower quadrant Extremities: No edema, Capillary Refill Less than 3 Seconds Skin: No rashes, No breakdown Musculoskeletal: No Tenderness to Palpation of Joints or Extremities Neurological: No focal neurological deficits, Motor Exam 5/5 strength throughout, Sensory exam intact to light touch and pain Psych/Mental Status: Normal Affect, Appropriate Results Lab / Micro Data 12/25/23 13:05 12/25/23 13:05 Labs: Laboratory Results - last 24 hr 12/25/23 13:05: WBC 15.0 H, RBC 5.05, Hgb 14.8, Hct 47.8, MCV 94.7 H, MCH 29.3, MCHC 31.0 L, RDW Std Deviation 51.1 H, RDW Coeff of Kathryn 14.7 H, Plt Count 237, MPV 8.7, Immature Gran % (Auto) 0.700, Neut % (Auto) 88.6 H, Lymph % (Auto) 4.7 L, [place] % (Auto) 5.5, Eos % (Auto) 0.2, Baso % (Auto) 0.3, Absolute Neuts (auto) 13.3 H, Absolute Lymphs (auto) 0.70 L, Nucleated RBC % 0, Sodium 124 L, Potassium 6.9 H*, Chloride 104, Carbon Dioxide 14.0 L, Anion Gap 6, BUN 57 H, Creatinine 2.75 H, Est GFR (MDRD) Af Amer 28 L, Est GFR (MDRD) Non-Af 24 L, BUN/Creatinine Ratio 20.7 H, Glucose 142 H, Calcium 9.8 Rhythm Strip Rhythm Strip: Sinus Rhythm Rate: 95 Ectopy: None Assessment & Plan Assessment/Plan (1) Acute hyperkalemia: (2) Acute hyponatremia: (3) TORRIE (acute kidney injury): PLAN: Plan 1. Acute renal failure with hyperkalemia/leukocytosis ? Etiology unclear at the moment ? Continue with IV fluids ? UA is pending with a urine creatinine and electrolytes ? Will recheck BMP this evening ? Unclear as to the reason for his leukocytosis if UA is unremarkable then may proceed with a chest x-ray 2. Essential HTN/HLD/CAD status post angioplasty ? Blood pressures are little bit soft we will hold his atenolol and isosorbide mononitrate ? Will monitor blood pressure make adjustments as necessary ? Continue with Lipitor and aspirin 3. History of colon cancer and prostate cancer ? Does have an ostomy in the left lower quadrant, this does appear to be pink and healthy with no abdominal pain 4. Chronic pain with neuropathy ? Given his renal failure will hold his gabapentin ? Does not appear that he is consistent wearing his buprenorphine patch, as he does not have one on him currently even other changed every Friday 5. Anxiety/depression ? Stable Continue his home medications 6. BPH ? Stable ? Continue Flomax and finasteride DVT: SCDs 75 minutes was spent on direct patient care, including documentation as well as chart review and collaboration with colleagues Charges/Coding Visit Charges Inpatient E&M: 76691 Init Hosp L3
[2023-12-25 15:48] LABS: Color, Urine Yellow (Yellow); Glucose, Dipstick Normal (Normal); Ketone-Dipstick Negative (Negative); Leukocyte Esterase-Dipstick 500 /ul (Negative); Nitrite-Dipstick Negative (Negative); Occult Blood-Urine 150 /ul (Negative); Protein-Dipstick 30 mg/dl (Negative); Specific Gravity, Urine 1.025 (1.002-1.030); Urine Bilirubin Dipstick Negative (Negative); Urine Clarity Sl. Cloudy (Clear); Urine Urobilinogen Normal (Normal)
[2023-12-25 15:57] LABS: Urine Chloride < 10 mmol/L (Not Establ.); Urine Sodium 7 mmol/L (Not Establ.)
[2023-12-25 16:03] VITALS: BMI 26.6
[2023-12-25 16:11] VITALS: BMI 26.6
[2023-12-25] MEDS: 0.9% Normal Saline (1000mL) 1,000 ML 100 ML IV (16:22)
[2023-12-25 16:25] LABS: Bacteria 1+ /hpf (None Seen); Squamous Epithelial Cells - UA 5-10 SEEN /hpf (0-5); White Blood Cells >100 SEEN /hpf (0-5)
[2023-12-25 16:26] LABS: Yeast-Urine 1+ /hpf (None Seen)
[2023-12-25 16:35] VITALS: BP 99/69; PULSE 102; RESP 18; TEMP 36.4; O2SAT 99
[2023-12-25] MEDS: Acetaminophen 500 MG Tablet 1000 MG PO (16:43)
[2023-12-25] MEDS: Ceftriaxone 1 GM/50 ML BAG IV (18:50)
[2023-12-25 20:19] LABS: Anion Gap 8 (5-15); BUN 67 mg/dL (7-18); BUN/Creat Ratio 23.8 RATIO (10-20); Calcium,Total 9.8 mg/dL (8.5-10.1); Chloride 106 mmol/L (98-107); Creatinine, Serum 2.81 mg/dL (0.70-1.30); EST Glomerular Filtration Rate 23 mL/min (>60); Est Glom Filt Rate - Afr Amer 28 mL/min (>60); Glucose 108 mg/dL (74-106); Potassium 5.3 mmol/L (3.5-5.1); Sodium Level 131 mmol/L (136-145)
[2023-12-25 21:35] VITALS: BP 123/95; PULSE 98; RESP 18; TEMP 36.4; O2SAT 97
[2023-12-25] MEDS: Mirtazapine 30 MG Tablet 45 MG PO (21:37)
[2023-12-25] MEDS: Tamsulosin HCl 0.4 MG Capsule PO (21:37)
[2023-12-25] MEDS: Atorvastatin Calcium 10 MG Tablet PO (21:37)
[2023-12-25] MEDS: buPROPion (SR) 150 MG Tablet.SA PO (21:38)
[2023-12-26] MEDS: 0.9% Normal Saline (1000mL) 1,000 ML 100 ML IV ×3 (01:12→18:10)
[2023-12-26 04:10] VITALS: BP 146/74; PULSE 93; RESP 16; TEMP 36.6; O2SAT 98
[2023-12-26 07:57] LABS: Absolute Lymphocyte Count 1.49 X10^3/uL (0.83-4.51); Absolute Neutrophil Count 7.3 X10^3/uL (2.0-7.7); Basophil# 0.04 X10^3/uL; Basophil% 0.4 % (0-1); Eosinophil# 0.15 X10^3/uL; Eosinophils% 1.5 % (0-5); Hematocrit 41.3 % (40-54); Hemoglobin 13.2 g/dL (13.0-16.5); Lymphocyte # 1.49 X10^3/ul (0.83-4.51); Lymphocyte % 14.8 % (19-41); Mean Corpuscular Hgb 29.7 pg (27.0-32.0); Mean Platelet Vol. 8.9 fl (6.2-12.0); Monocyte# 1.08 X10^3/uL; Monocyte% 10.7 % (0-10); NRBC Flagged by Analyzer 0 % (0-5); Neutrophil # 7.29 X10^3/uL (2.7-7.7); Neutrophil % 72.1 % (47-70); Platelet Count 221 K/mm3 (150-450); RBC Distribution Width CV 14.9 % (11.6-14.6); RBC Distribution Width SD 50.9 fl (35.1-43.9); Red Blood Count 4.44 M/mm3 (4.6-6.2); White Blood Count 10.1 K/mm3 (4.4-11.0)
[2023-12-26 09:05] LABS: Anion Gap 8 (5-15); BUN 58 mg/dL (7-18); BUN/Creat Ratio 30.1 RATIO (10-20); Calcium,Total 9.1 mg/dL (8.5-10.1); Chloride 111 mmol/L (98-107); Creatinine, Serum 1.93 mg/dL (0.70-1.30); EST Glomerular Filtration Rate 35 mL/min (>60); Est Glom Filt Rate - Afr Amer 43 mL/min (>60); Estimated Creatinine Clearance 26.64 ml/min; Glucose 96 mg/dL (74-106); Magnesium 2.3 mg/dL (1.6-2.6); Potassium 4.8 mmol/L (3.5-5.1); Sodium Level 134 mmol/L (136-145)
[2023-12-26] MEDS: Finasteride 5 MG Tablet PO (09:40)
[2023-12-26] MEDS: buPROPion (SR) 150 MG Tablet.SA PO ×2 (09:40→20:39)
[2023-12-26] MEDS: Aspirin E.C. 81 MG Tablet PO (09:40)
[2023-12-26] MEDS: Ceftriaxone 1 GM/50 ML BAG IV (10:03)
[2023-12-26 10:05] VITALS: BP 122/66; PULSE 92; RESP 15; TEMP 36.7; O2SAT 98
--- NOTE | 2023-12-26 12:15 | CASEMGMT ---
RN KRISTEN Face to Face with patient for initial transition planning/care coordination assessment. RN CM introduced self and role at [facility]. Patient sitting in chair, alert and oriented. Patient willing to participate in assessment and is able to answer most questions appropriately, gave permission to follow-up with daughter Rita. Care providers, pharmacy, and demographics verified. PCP: Paco Specialists: Dionicio, oncologist; Alexa, neurologist [facility]erred [facility]acy: [facility] Insurance: Jose M LÓPEZ Prescription Benefit: yes Living Will/HPOA: yes, daughter Rita Albert LNOK: daughter Living Arrangements: Patient states he lives with daughter and her boyfriend in a single story home with 2 steps and railing to enter the home. Patient states he is independent at home. Transportation: self, daughter DME/HHC: Patient has shower chair, cane, walker, and grab bars at home. Patient has previously been to TCU and [facility] in the past. Patient wishes to discharge home, will monitor for HHC. Patient states he has no further needs or concerns at this time. CM to follow for discharge planning needs that may arise. Disposition Plan: Patient to discharge home with family support and follow-up plans in place. Will monitor for HHC. Celia BAE, RN, CM
--- NOTE | 2023-12-26 14:45 | CASEMGMT ---
ELIE PETERSON called daughter Rita to discuss needs at discharge. ELIE PETERSON reviewed progress with therapy patient ambulated 280ft SBA, no therapy recommended at discharge. RN KRISTEN discussed CCN but will be on waiting list till they can take patient, daughter agreeable. RN KRISTEN provided CCN, Direction Home information, and Dementia resources in discharge folder. Per daughter, patient has someone staying with him at all time. Daughter denied further needs or concerns. ELIE PETERSON placed referral to [facility] for wait list per Hakeem DELGADILLO.
[2023-12-26 16:00] VITALS: BP 135/70; PULSE 89; RESP 16; TEMP 36.7; O2SAT 95
--- NOTE | 2023-12-26 16:23 | PCM.PN.HOSP ---
Reason for Visit Reason for Visit: Diagnoses Hypo-osmolality and hyponatremia (12/25/23) Hyperkalemia (12/25/23) Acute kidney failure, unspecified (12/25/23) Subjective Subjective Patient was seen and examined today, he was admitted for hyperkalemia and acute kidney injury, potassium today is normal, creatinine is improved. I talked with the patient's daughter by phone today, she asked me to review his medications that he was on at the nursing facility, I reviewed the medications and told her I did not feel any the medications could have triggered his acute kidney injury. I will continue to administer fluids at the present time and repeat his labs in the morning. Objective Data Objective Data Vital Signs: Vital Signs Temp Pulse Resp BP Pulse Ox O2 Del Method 98.1 F 92 15 122/66 H 98 Room Air 12/26/23 10:05 12/26/23 10:05 12/26/23 10:05 12/26/23 10:05 12/26/23 10:05 12/26/23 10:05 Oxygen Delivery Method Room Air Weight: 77.1 kg Body Mass Index (BMI) 26.6 Intake & Output: Intake and Output for Last 24 Hours 12/24/23 12/25/23 12/26/23 23:59 23:59 23:59 Intake Total 893.33 / 1343.33 3085 / 3085 Output Total 100 / 100 850 / 850 Balance 793.33 / 1243.33 2235 / 2235 Lab / Micro Data 12/26/23 06:15 12/26/23 06:15 Labs: Laboratory Results - last 24 hr 12/25/23 15:24: Urine RBC 0 SEEN, Urine WBC >100 SEEN, Ur Squamous Epith Cells 5-10 SEEN, Urine Bacteria 1+, Urine Mucus 0 SEEN, Urine Yeast 1+ 12/25/23 19:56: Sodium 131 L, Potassium 5.3 H, Chloride 106, Carbon Dioxide 17.0 L, Anion Gap 8, BUN 67 H, Creatinine 2.81 H, Estim Creat Clear Calc 18.30, Est GFR (MDRD) Af Amer 28 L, Est GFR (MDRD) Non-Af 23 L, BUN/Creatinine Ratio 23.8 H, Glucose 108 H, Calcium 9.8 12/26/23 06:15: WBC 10.1, RBC 4.44 L, Hgb 13.2, Hct 41.3, MCV 93.0, MCH 29.7, MCHC 32.0, RDW Std Deviation 50.9 H, RDW Coeff of Kathryn 14.9 H, Plt Count 221, MPV 8.9, Immature Gran % (Auto) 0.500, Neut % (Auto) 72.1 H, Lymph % (Auto) 14.8 L, [place] % (Auto) 10.7 H, Eos % (Auto) 1.5, Baso % (Auto) 0.4, Absolute Neuts (auto) 7.3, Absolute Lymphs (auto) 1.49, Nucleated RBC % 0, Sodium 134 L, Potassium 4.8, Chloride 111 H, Carbon Dioxide 15.0 L, Anion Gap 8, BUN 58 H, Creatinine 1.93 H, Estim Creat Clear Calc 26.64, Est GFR (MDRD) Af Amer 43 L, Est GFR (MDRD) Non-Af 35 L, BUN/Creatinine Ratio 30.1 H, Glucose 96, Calcium 9.1, Phosphorus 3.0, Magnesium 2.3 Rhythm Strip Rhythm Strip: Sinus Rhythm Rate: 95 Ectopy: None Physical Exam Const alert, oriented x3, no apparent distress, average body habitus and healthy appearing General Appearance: cooperative, well kempt and well developed Orientation / Consciousness: awake, oriented to person, oriented to place and oriented to time HEENT normocephalic, head/scalp atraumatic and moist oral mucous membranes Eyes PERRL, EOMs intact bilaterally and conjunctivae normal Neck supple, no JVD, thyroid normal and no carotid bruits General: trachea midline Resp normal respiratory effort, no retractions, no use of accessory muscles and clear to auscultation bilaterally Auscultation: Negative for rales, rhonchi or wheezes Cardio regular rate, regular rhythm, S1 normal heart sound, S2 normal heart sound, no murmurs, no rub and no gallops GI normal to inspection, nondistended, normoactive bowel sounds, soft to palpation, non-tender and non-distended GI Narrative: Colostomy is present Extremity no clubbing, cyanosis or edema Skin no rashes or lesions noted General Skin Exam: no breakdown Neuro oriented x3, CN's II-XII intact bilaterally, no focal motor deficits and no sensory deficits noted Sensorium / Orientation: awake and alert Speech: speech normal Psych affect normal Assessment & Plan Assessment/Plan (1) Acute hyperkalemia: PLAN: Plan 1. Acute hyperkalemia-this is resolved at this time, continue IV fluid administration, recheck labs tomorrow #2 acute kidney injury-etiology is unclear at this point but his creatinine is improving with fluids, recheck labs tomorrow #3 acute cystitis-patient will remain on Rocephin IV, await urine culture #4 cerebrovascular disease-complicates care, management, recovery, and prognosis Total clinical time spent by myself addressing the patient's medical issues, reviewing all of his data, and collaborating with patient's care team: 35 minutes Charges/Coding Visit Charges Inpatient E&M: 56105 Subs Hosp L2
[2023-12-26] MEDS: Atorvastatin Calcium 10 MG Tablet PO (20:39)
[2023-12-26] MEDS: Tamsulosin HCl 0.4 MG Capsule PO (20:39)
[2023-12-26] MEDS: Mirtazapine 30 MG Tablet 45 MG PO (20:39)
[2023-12-26 21:00] VITALS: BP 123/70; PULSE 86; RESP 18; TEMP 36.4; O2SAT 98
[2023-12-26] MEDS: Loperamide 2 MG Capsule 4 MG PO (22:54)
[2023-12-27 04:00] VITALS: BP 108/64; PULSE 88; RESP 18; TEMP 36.3; O2SAT 98
[2023-12-27] MEDS: 0.9% Normal Saline (1000mL) 1,000 ML 100 ML IV (04:28)
[2023-12-27 05:21] LABS: Albumin, Serum 3.4 g/dL (3.2-5.0); BUN 51 mg/dL (7-18); BUN/Creat Ratio 43.6 RATIO (10-20); Calcium,Total 8.9 mg/dL (8.5-10.1); Chloride 115 mmol/L (98-107); Creatinine, Serum 1.17 mg/dL (0.70-1.30); EST Glomerular Filtration Rate 63 mL/min (>60); Est Glom Filt Rate - Afr Amer 76 mL/min (>60); Estimated Creatinine Clearance 43.94 ml/min; Glucose 81 mg/dL (74-106); Phosphorus 2.5 mg/dL (2.5-4.9); Potassium 4.1 mmol/L (3.5-5.1); Sodium Level 139 mmol/L (136-145)
[2023-12-27 08:49] VITALS: BP 108/64; PULSE 79; RESP 16; TEMP 36.3; O2SAT 98
[2023-12-27] MEDS: buPROPion (SR) 150 MG Tablet.SA PO (08:55)
[2023-12-27] MEDS: Aspirin E.C. 81 MG Tablet PO (08:55)
[2023-12-27] MEDS: Finasteride 5 MG Tablet PO (08:55)
[2023-12-27] MEDS: Ceftriaxone 1 GM/50 ML BAG IV (08:58)
--- NOTE | 2023-12-27 10:39 | DCINST_ITS ---
Discharge Instructions Diet Discharge Diet: No restrictions Activity Discharge Activity: Return to Normal Activity Weight Bearing Status: Full weight bearing Follow Up Care Test Results: Test results from this visit will be discussed in further detail at your follow- up appointment, if applicable. Discharge Plan Admission Admit Date/Time: 12/25/23 15:31 Primary Reason for Your Visit: Hyperkalemia, acute kidney injury Attending Provider: Samuel Falk Primary Care Provider: Vishal Antonio Consulting Providers: Ousmane Goodwin Discharge Orders/Prescriptions Prescriptions: Continued finasteride [Proscar] 5 mg tablet 5 mg PO DAILY aspirin [Adult Low Dose Aspirin] 81 mg tablet,delayed release (DR/EC) 81 mg PO DAILY tamsulosin 0.4 mg capsule 0.4 mg PO QHS gabapentin 100 mg capsule 100 mg PO TID lidocaine 5 % Adhesive Patch,Medicated 2 patch topical DAILY Qty: 0 0RF Protocol: *Topical Application Instructions APPLICATION INSTRUCTIONS: Apply to lumbar spine and right and left paraspinal muscles. Patient Comments: PT CURRENTLY DOES NOT HAVE A PATCH ON ( OF 12/25/23) atorvastatin 10 mg tablet 10 mg PO QHS bupropion HCl 150 mg tablet sustained-release 12 hr 150 mg PO BID mirtazapine 45 mg tablet 45 mg PO QHS atenolol 25 mg tablet 12.5 mg PO DAILY acetaminophen 500 mg Tablet 1,000 mg PO Q6H PRN (Reason: PAIN ) nitroglycerin 0.4 mg tablet, sublingual 0.4 mg SL Q5M PRN (Reason: CHEST PAIN ) Qty: 25 3RF isosorbide mononitrate 60 mg tablet extended release 24 hr 60 mg PO DAILY Qty: 90 3RF Discontinued sennosides-docusate sodium [Stool Softener-Stimulant Laxat] 8.6-50 mg Tablet 2 tab PO BID Qty: 0 0RF buprenorphine 10 mcg/hour patch weekly 1 patch transdermal FR 7 Days Qty: 1 0RF Patient Comments: PT CURRENTLY DOES NOT HAVE A PATCH ON ( OF 12/25/23) hydroxyzine HCl 25 mg tablet 12.5 mg PO TID PRN (Reason: MENTAL HEALTH ) baclofen 10 mg tablet 5 - 10 mg PO TID PRN (Reason: MUSCLE SPASMS) cimetidine 400 mg tablet 400 mg PO DAILY Referrals / Follow Up: Vishal Antonio MD [Primary Care Provider] - Within 1 Week (have Paco Rasmussen recheck your BMP (kidney function)) Disposition Disposition (needs filled in before D/C Order can be placed): Home, Self Care
--- NOTE | 2023-12-27 10:49 | PCM.DC.SUM ---
Providers Date of Admission: 12/25/23 Date of Discharge: 12/27/23 Primary Care Physician: Dr. Vishal Antonio MD Reason For Visit: HYPERKALEMIA WITH RENAL FAILURE Diagnosis Discharge Diagnosis (1) Acute hyperkalemia: Status: Acute Code(s): E87.5 - Hyperkalemia Plan 1. Acute hyperkalemia-this is resolved at this time, continue IV fluid administration, recheck labs tomorrow #2 acute kidney injury-etiology is unclear at this point but his creatinine is improving with fluids, recheck labs tomorrow #3 BPH-patient is on Flomax #4 cerebrovascular disease-complicates care, management, recovery, and prognosis Cystitis was ruled out Total clinical time spent by myself addressing the patient's medical issues, reviewing all of his data, and collaborating with patient's care team: 35 minutes Medications at Discharge Home Medications finasteride 5 mg tablet (Proscar) 5 mg PO DAILY PROSTATE 01/27/18 aspirin 81 mg tablet,delayed release (Adult Low Dose Aspirin) 81 mg PO DAILY HEART HEALTH 07/30/18 tamsulosin 0.4 mg capsule 0.4 mg PO QHS PROSTATE 10/21/21 nitroglycerin 0.4 mg sublingual tablet 0.4 mg sublingual Q5M PRN CHEST PAIN #25 tabs 05/12/23 atorvastatin 10 mg tablet 10 mg PO QHS CHOLESTEROL 10/31/23 bupropion HCl 150 mg tablet,12 hr sustained-release 150 mg PO BID DEPRESSION 10/31/23 mirtazapine 45 mg tablet 45 mg PO QHS DEPRESSION 10/31/23 gabapentin 100 mg capsule 100 mg PO TID NEUROPATHY 11/14/23 lidocaine 5 % topical patch 2 patch topical DAILY PAIN #0 ea 11/17/23 isosorbide mononitrate 60 mg tablet,extended release 24 hr 60 mg PO DAILY HEART #90 tabs 12/15/23 acetaminophen 500 mg tablet 1,000 mg PO Q6H PRN PAIN 12/25/23 atenolol 25 mg tablet 12.5 mg PO DAILY BLOOD PRESSURE 12/25/23 Hospital Course Operations None Procedures None Summary of Care Provided Minutes Spent on Discharge: 31 Hospital Course: This 83-year-old white male was seen in the emergency room at [facility] after outpatient labs showed elevated creatinine and hyperkalemia. Workup in the emergency room showed an elevated white blood cell count, sodium was low at 124, potassium was elevated at 6.9, creatinine was elevated to 2.75 and BUN was 57. Patient's UA showed more than 100 WBCs, there was +1 yeast and +1 bacteria. Patient was admitted to PCU, he was given Kayexalate and repeat labs were obtained, he was given IV fluids, patient's creatinine returned to normal during his hospitalization and his potassium normalized. Patient's urine culture grew out small numbers of Miladys albicans and mixed gram-positive organisms, he was given IV antibiotics during his hospitalization but this examiner did not feel in the end that he had acute cystitis. On 12/27/2023, patient was seen and examined: On examination he appeared in good health and spirits. Vital signs as documented. Skin warm and dry and without overt rashes. Neck without JVD, neck was supple, trachea midline, thyroid was normal. Lungs clear bilaterally, normal air movement was noted. Heart exam notable for regular rhythm, normal sounds and absence of murmurs, rubs or gallops. Abdomen unremarkable and without evidence of organomegaly, masses, or abdominal aortic enlargement. Bowel sounds are present, abdomen is not distended. Extremities nonedematous, no cyanosis was noted, no clubbing was noted. Neuro: Cranial nerves II through XII are grossly intact, no focal motor deficits were noted, sensation to light touch and pinprick intact, motor exam 5/5 throughout. Psych: Patient is alert and oriented x3, he does not appear anxious or depressed, he does not appear agitated. Patient was discharged home in stable condition on 12/27/2023, I had multiple conversations with the patient's daughter, the etiology of his acute kidney injury was unknown, he was instructed to follow-up with his family physician next week for repeat lab work. I also modified some of the patient's home going medications. Weight / BMI Weight Weight: 77.1 kg Body Mass Index (BMI) 26.6 ABG / Lab / Microbiology Data 12/26/23 06:15 12/27/23 03:42 Laboratory: Laboratory Results - last 24 hr 12/27/23 03:42: Sodium 139, Potassium 4.1, Chloride 115 H, Carbon Dioxide 18.0 L, BUN 51 H, Creatinine 1.17, Estim Creat Clear Calc 43.94, Est GFR (MDRD) Af Amer 76, Est GFR (MDRD) Non-Af 63, BUN/Creatinine Ratio 43.6 H, Glucose 81, Calcium 8.9, Phosphorus 2.5, Albumin 3.4 Microbiology: Microbiology 12/25/23 19:42 Urine, Clean Catch Urine Culture - Final Presumptive C albicans Mixed Gram Positive Organisms D/C Instructions Discharge Diet: No restrictions Weight Bearing Status: Full weight bearing Meaningful Use Info Meaningful Use Diagnoses (Choose all that apply): None applicable Discharge Plan Admission Admit Date/Time: 12/25/23 15:31 Primary Reason for Your Visit: Hyperkalemia, acute kidney injury Attending Provider: Samuel Falk Primary Care Provider: Vishal Antonio Consulting Providers: Ousmane Goodwin Discharge Orders/Prescriptions Prescriptions: Continued finasteride [Proscar] 5 mg tablet 5 mg PO DAILY aspirin [Adult Low Dose Aspirin] 81 mg tablet,delayed release (DR/EC) 81 mg PO DAILY tamsulosin 0.4 mg capsule 0.4 mg PO QHS gabapentin 100 mg capsule 100 mg PO TID lidocaine 5 % Adhesive Patch,Medicated 2 patch topical DAILY Qty: 0 0RF Protocol: *Topical Application Instructions APPLICATION INSTRUCTIONS: Apply to lumbar spine and right and left paraspinal muscles. Patient Comments: PT CURRENTLY DOES NOT HAVE A PATCH ON ( OF 12/25/23) atorvastatin 10 mg tablet 10 mg PO QHS bupropion HCl 150 mg tablet sustained-release 12 hr 150 mg PO BID mirtazapine 45 mg tablet 45 mg PO QHS atenolol 25 mg tablet 12.5 mg PO DAILY acetaminophen 500 mg Tablet 1,000 mg PO Q6H PRN (Reason: PAIN ) nitroglycerin 0.4 mg tablet, sublingual 0.4 mg SL Q5M PRN (Reason: CHEST PAIN ) Qty: 25 3RF isosorbide mononitrate 60 mg tablet extended release 24 hr 60 mg PO DAILY Qty: 90 3RF Discontinued sennosides-docusate sodium [Stool Softener-Stimulant Laxat] 8.6-50 mg Tablet 2 tab PO BID Qty: 0 0RF buprenorphine 10 mcg/hour patch weekly 1 patch transdermal FR 7 Days Qty: 1 0RF Patient Comments: PT CURRENTLY DOES NOT HAVE A PATCH ON ( OF 12/25/23) hydroxyzine HCl 25 mg tablet 12.5 mg PO TID PRN (Reason: MENTAL HEALTH ) baclofen 10 mg tablet 5 - 10 mg PO TID PRN (Reason: MUSCLE SPASMS) cimetidine 400 mg tablet 400 mg PO DAILY Referrals / Follow Up: Vishal Antonio MD [Primary Care Provider] - Within 1 Week (have Paco Rasmussen recheck your BMP (kidney function)) Disposition Disposition (needs filled in before D/C Order can be placed): Home, Self Care Charges/Coding Visit Charges Inpatient E&M: 60712 Disch Hosp >30min
[2023-12-27 12:44] VITALS: BP 94/77; PULSE 74; RESP 16; TEMP 36.6; O2SAT 98
[2023-12-27] MEDS: 0.9% Saline Lock 10 ML Syringe IV (12:58)
== END 2023-12-27 13:26 | disposition home or self-care (01) | DRG 641 ==
LOC: ED 15:12 → PCU 16:06
PROVIDERS: Admitting Provider Family Medicine; Emergency Provider Emergency Medicine; PCP Family Medicine; Visit Provider Internal Medicine
DX: E87.5 Hyperkalemia (principal); N17.9 Acute kidney failure, unspecified; Z93.3 Colostomy status; I10 Essential (primary) hypertension; F32.A Depression, unspecified; I25.10 Atherosclerotic heart disease of native coronary artery without angina pectoris; E78.00 Pure hypercholesterolemia, unspecified; I25.2 Old myocardial infarction; G62.9 Polyneuropathy, unspecified; F41.9 Anxiety disorder, unspecified; G89.29 Other chronic pain; N40.0 Benign prostatic hyperplasia without lower urinary tract symptoms; Z79.82 Long term (current) use of aspirin; Z79.899 Other long term (current) drug therapy; Z85.038 Personal history of other malignant neoplasm of large intestine; Z85.46 Personal history of malignant neoplasm of prostate; Z86.73 Personal history of transient ischemic attack (TIA), and cerebral infarction without residual deficits
CPT/HCPCS: 36415; 80048; 80069; 81001; 82436; 82570; 83735; 84100; 84133; 84300; 85025; 87086; 87088; 93005; 97162; 97166; 99284; J7030; A4216

== ENCOUNTER 2024-01-05 11:56 | Observation (INO) | payer MEDICARE, BC, SELFPAY ==
[2024-01-05] VITALS (7 sets, daily range): BP systolic 105–134; BP diastolic 45–101; PULSE 55–87; RESP 16–18; TEMP 36.4–36.7; O2SAT 97–100; BMI 26.4; BMI 27.0
--- NOTE | 2024-01-05 12:12 | EKG12_ITS ---
Test Reason : SYNCOPE Blood Pressure : / mmHG Vent. Rate : 060 BPM Atrial Rate : 000 BPM P-R Int : 000 ms QRS Dur : 090 ms QT Int : 396 ms P-R-T Axes : 000 -53 047 degrees QTc Int : 396 ms Sinus rhythm Left axis deviation Abnormal ECG Confirmed by ERIC SU, DON ([id number]), city editor MEGHAN CUNHA ([id number]) on 01/12/2024 1:21:04 PM Referred By: HUGO/[place] Confirmed By:DORCAS REYES MD
--- NOTE | 2024-01-05 12:20 | EX.ED.DYSGE1 ---
HPI <PAULA Rey - Last Filed: 01/05/24 16:03> History of Present Illness Chief Complaint: Syncope Narrative Narrative: Patient is an 83-year-old male with history of colon cancer, who still sees Dr. Gonzalez, history of depression, opioid addiction chronic pain who presents to the emergency department after a syncopal episode. Patient states he was admitted for kidney failure, UTI, he went to an snf and is currently living with a friend, has been home for 2 weeks. Patient was standing at the fridge today when he felt a sudden onset of lightheadedness, he then had a syncopal episode landing on his right hip, he states he was immediately alert, after he fell, denies any head or neck injury. Was able to get up on his own with help. Patient states he has pain to the right hip, as well as some dizziness/lightheadedness when he gets up. Patient denies any fever chills nausea or vomiting, patient Nuys any chest pain or shortness of breath. PFS <PAULA Rey - Last Filed: 01/05/24 16:03> [facility] Medical History Acute cerebrovascular accident (CVA) Adenocarcinoma Alcohol abuse Alcohol use Ambulates with cane Anxiety Arthritis Atherosclerosis of coronary artery of [place] heart without angina pectoris Back pain BPH (benign prostatic hyperplasia) Bright's disease Cancer Cardiology follow-up encounter Chest pain Chewing tobacco nicotine dependence Chronic pain Chronic pain Cognitive impairment Colon cancer CVA (cerebral vascular accident) Depression Easy bruising Essential (primary) hypertension Fall Frequent falls Gait instability GI bleed Hearing loss, left Hearing loss, right High cholesterol History of echocardiogram History of heart attack History of pain when walking History of prostate cancer History of radiation therapy History of stress test HLD (hyperlipidemia) Kidney disease Kidney stones Myocardial infarct Non-smoker Old inferior wall myocardial infarction Smoker Stroke/cerebrovascular accident Vision loss of left eye Vision loss of right eye Vitamin D deficiency Wears dentures Wears glasses Wears hearing aid Home Medications finasteride 5 mg tablet (Proscar) 5 mg PO DAILY PROSTATE 01/27/18 [History Last Taken 01/05/24] aspirin 81 mg tablet,delayed release (Adult Low Dose Aspirin) 81 mg PO DAILY HEART HEALTH 11/15/18 [History Last Taken 01/04/24] tamsulosin 0.4 mg capsule 0.4 mg PO QHS PROSTATE 10/21/21 [History Last Taken 01/04/24] nitroglycerin 0.4 mg sublingual tablet 0.4 mg sublingual Q5M PRN CHEST PAIN #25 tabs 05/12/23 [Rx Last Taken Unknown] atorvastatin 10 mg tablet 10 mg PO QHS CHOLESTEROL 10/31/23 [History Last Taken 01/04/24] bupropion HCl 150 mg tablet,12 hr sustained-release 150 mg PO BID DEPRESSION 10/31/23 [History Last Taken 01/05/24] mirtazapine 45 mg tablet 45 mg PO QHS DEPRESSION 10/31/23 [History Last Taken 01/04/24] gabapentin 100 mg capsule 100 mg PO TID NEUROPATHY 11/14/23 [History Last Taken 01/05/24] lidocaine 5 % topical patch 2 patch topical DAILY PAIN #0 ea 11/17/23 [Rx Last Taken 01/05/24] isosorbide mononitrate 60 mg tablet,extended release 24 hr 60 mg PO DAILY HEART #90 tabs 12/15/23 [Rx Last Taken 01/05/24] acetaminophen 500 mg tablet 1,000 mg PO Q6H PRN PAIN 12/25/23 [History Last Taken 01/05/24] atenolol 25 mg tablet 12.5 mg PO DAILY BLOOD PRESSURE 12/25/23 [History Last Taken 12/25/23] multivitamin (Daily Multi-Vitamin tablet) 1 tab PO DAILY 01/05/24 [History Last Taken 01/05/24] Allergy/AdvReac Type Severity Reaction Status Date / Time No Known Allergies Allergy Verified 01/05/24 11:57 Family History Father Cancer skin cancer Mother Myocardial infarction Diabetes Other Fall Surgical History H/O percutaneous transluminal coronary angioplasty (11/13/93) History of angioplasty History of colostomy History of cystoscopy History of inguinal hernia repair, bilateral History of left heart catheterization (02/24/02) History of rotator cuff surgery Hx of appendectomy Hx of colectomy Status post trigger finger release Social History household members: none Smoking Status: Never smoker alcohol intake: current alcohol intake frequency: a few times a month Alcohol type: hard liquor substance use type: does not use caffeine: Yes Type: coffee Number of servings: 1 ROS <PAULA Rey - Last Filed: 01/05/24 16:03> ROS ED ROS Narrative Constitutional: Negative for fever, chills, weight loss, weakness Eyes: Negative for vision loss, vision change, double vision ENT: Negative for any sore throat, ear pain, congestion Cardiovascular: Negative for any chest pain, tightness, palpitations Respiratory: Negative for any cough, sputum production, hemoptysis, dyspnea, dyspnea on exertion, orthopnea Gastrointestinal: Negative for any abdominal pain, nausea, vomiting, diarrhea, constipation, blood in stool, blood in vomit : Negative for any urinary frequency, dysuria, retention, blood in urine Muscle skeletal: Negative for any neck pain, back pain Neurological: Negative for any headache,dizziness. Positive syncope, lightheadedness Skin: Negative for any rashes, itching, abrasions, lacerations Psychiatric: Negative for any depression, anxiety, stress, suicidal ideation, homicidal ideation Hematologic: Negative for any excessive bruising, easy bleeding EXAM <PAULA Rey - Last Filed: 01/05/24 16:03> Physical Exam Narrative Exam Narrative: Vital signs reviewed. Vital signs are stable, patient is alert and orient x 4. HEET: Head normocephalic atraumatic, TMs clear bilaterally. Posterior pharynx is clear, moist mucous membranes. Nares clear bilaterally. Pupils are equal round reactive to light, negative for any hemotympanum or septal hematoma. Neck: Supple with no lymphadenopathy or tenderness. No signs of meningismus. Cardiac: Regular rate and rhythm no murmurs gallops or rubs, equal peripheral pulses bilaterally. Respiratory: Lungs clear to auscultation bilaterally. No chest tenderness. Abdomen: Soft, nontender, nondistended. No abdominal bruit or pulsatile masses. No hepatosplenomegaly Extremities: No peripheral edema, no signs of gross trauma or deformity. Active full range of motion of all extremities. Patient had slight pain on palpation to the right hip however patient is good range of motion, able to flex and extend without any difficulty. Neuro: Cranial nerves II through XII intact, no focal neurological deficits. Skin: Clean dry and intact with no rash, purpura, petechiae, vesicles or pustules. Backs/flank: No CVA tenderness, no midline spinal tenderness, no deformity. Psych: Normal mood and affect. No SI, HI or acute psychosis. Const Vital Signs: 01/05/24 11:57 01/05/24 11:56 01/05/24 12:12 Temperature 97.6 F L Temperature Source Temporal Pulse Rate 58 L Pulse Rate [Lying] Pulse Rate [Sitting (for 1 minute prior to obtaining)] Pulse Rate [Standing (for 1 minute prior to obtaining)] Respiratory Rate 18 Respiratory Effort Respiratory Pattern Blood Pressure 105/60 Blood Pressure [Lying] Blood Pressure [Sitting (for 1 minute prior to obtaining)] Blood Pressure [Standing (for 1 minute prior to obtaining)] Blood Pressure Mean 75 Blood Pressure Mean [Lying] Blood Pressure Mean [Sitting (for 1 minute prior to obtaining)] Blood Pressure Mean [Standing (for 1 minute prior to obtaining)] Pulse Ox 98 Oxygen Delivery Method Room Air Room Air Room Air 01/05/24 11:58 01/05/24 12:40 01/05/24 13:56 Temperature Temperature Source Pulse Rate 55 L Pulse Rate [Lying] 60 Pulse Rate [Sitting (for 1 minute prior to obtaining)] 70 Pulse Rate [Standing (for 1 minute prior to obtaining)] 75 Respiratory Rate 18 Respiratory Effort Normal Non-Labored Respiratory Pattern Normal Blood Pressure 134/101 H Blood Pressure [Lying] 110/96 H Blood Pressure [Sitting (for 1 minute prior to obtaining)] 122/57 H Blood Pressure [Standing (for 1 minute prior to obtaining)] 107/65 Blood Pressure Mean 112 Blood Pressure Mean [Lying] 100 Blood Pressure Mean [Sitting (for 1 minute prior to obtaining)] 78 Blood Pressure Mean [Standing (for 1 minute prior to obtaining)] 79 Pulse Ox 98 Oxygen Delivery Method Room Air 01/05/24 14:32 Temperature Temperature Source Pulse Rate 58 L Pulse Rate [Lying] Pulse Rate [Sitting (for 1 minute prior to obtaining)] Pulse Rate [Standing (for 1 minute prior to obtaining)] Respiratory Rate 18 Respiratory Effort Respiratory Pattern Blood Pressure 122/83 H Blood Pressure [Lying] Blood Pressure [Sitting (for 1 minute prior to obtaining)] Blood Pressure [Standing (for 1 minute prior to obtaining)] Blood Pressure Mean 96 Blood Pressure Mean [Lying] Blood Pressure Mean [Sitting (for 1 minute prior to obtaining)] Blood Pressure Mean [Standing (for 1 minute prior to obtaining)] Pulse Ox 100 Oxygen Delivery Method Room Air Positive well nourished and well developed General Appearance ED: well developed <Dr. Zeb Webster MD - Last Filed: 01/05/24 16:22> Physical Exam Const Vital Signs: 01/05/24 11:57 01/05/24 11:56 01/05/24 12:12 Temperature 97.6 F L Temperature Source Temporal Pulse Rate 58 L Pulse Rate [Lying] Pulse Rate [Sitting (for 1 minute prior to obtaining)] Pulse Rate [Standing (for 1 minute prior to obtaining)] Respiratory Rate 18 Respiratory Effort Respiratory Pattern Blood Pressure 105/60 Blood Pressure [Lying] Blood Pressure [Sitting (for 1 minute prior to obtaining)] Blood Pressure [Standing (for 1 minute prior to obtaining)] Blood Pressure Mean 75 Blood Pressure Mean [Lying] Blood Pressure Mean [Sitting (for 1 minute prior to obtaining)] Blood Pressure Mean [Standing (for 1 minute prior to obtaining)] Pulse Ox 98 Oxygen Delivery Method Room Air Room Air Room Air 01/05/24 11:58 01/05/24 12:40 01/05/24 13:56 Temperature Temperature Source Pulse Rate 55 L Pulse Rate [Lying] 60 Pulse Rate [Sitting (for 1 minute prior to obtaining)] 70 Pulse Rate [Standing (for 1 minute prior to obtaining)] 75 Respiratory Rate 18 Respiratory Effort Normal Non-Labored Respiratory Pattern Normal Blood Pressure 134/101 H Blood Pressure [Lying] 110/96 H Blood Pressure [Sitting (for 1 minute prior to obtaining)] 122/57 H Blood Pressure [Standing (for 1 minute prior to obtaining)] 107/65 Blood Pressure Mean 112 Blood Pressure Mean [Lying] 100 Blood Pressure Mean [Sitting (for 1 minute prior to obtaining)] 78 Blood Pressure Mean [Standing (for 1 minute prior to obtaining)] 79 Pulse Ox 98 Oxygen Delivery Method Room Air 01/05/24 14:32 Temperature Temperature Source Pulse Rate 58 L Pulse Rate [Lying] Pulse Rate [Sitting (for 1 minute prior to obtaining)] Pulse Rate [Standing (for 1 minute prior to obtaining)] Respiratory Rate 18 Respiratory Effort Respiratory Pattern Blood Pressure 122/83 H Blood Pressure [Lying] Blood Pressure [Sitting (for 1 minute prior to obtaining)] Blood Pressure [Standing (for 1 minute prior to obtaining)] Blood Pressure Mean 96 Blood Pressure Mean [Lying] Blood Pressure Mean [Sitting (for 1 minute prior to obtaining)] Blood Pressure Mean [Standing (for 1 minute prior to obtaining)] Pulse Ox 100 Oxygen Delivery Method Room Air [facility] <PAULA Rey - Last Filed: 01/05/24 16:03> [facility] Lab Data Labs: Laboratory Results - last 24 hr 01/05/24 01/05/24 12:30 14:05 WBC 8.6 RBC 3.84 L Hgb 11.3 L Hct 35.6 L MCV 92.7 MCH 29.4 MCHC 31.7 L RDW Std Deviation 48.8 H RDW Coeff of Kathryn 14.4 Plt Count 178 MPV 8.8 Immature Gran % (Auto) 0.600 Neut % (Auto) 70.9 H Lymph % (Auto) 16.4 L [place] % (Auto) 8.8 Eos % (Auto) 3.0 Baso % (Auto) 0.3 Absolute Neuts (auto) 6.1 Absolute Lymphs (auto) 1.42 Nucleated RBC % 0 Sodium 138 Potassium 4.3 Chloride 109 H Carbon Dioxide 26.0 Anion Gap 3 L BUN 20 H Creatinine 1.15 Est GFR (MDRD) Af Amer 78 Est GFR (MDRD) Non-Af 64 BUN/Creatinine Ratio 17.4 Glucose 102 Calcium 9.0 Urine Color Yellow Urine Clarity Sl. Cloudy Urine pH 6.0 Ur Specific [place] 1.015 Urine Protein 15 H Urine Glucose (UA) Normal Urine Ketones Negative Urine Occult Blood 25 H Urine Nitrite Negative Urine Bilirubin Negative Urine Urobilinogen Normal Ur Leukocyte Esterase 500 H Urine RBC 0-5 SEEN Urine WBC 25-50 SEEN Ur Squamous Epith Cells 0-5 SEEN Urine Bacteria 1+ Urine Mucus 0 SEEN Radiography Diagnostic Testing: Clinical Impression(s) from Imaging Studies Chest X-Ray 01/05/24 13:10 IMPRESSION: No acute abnormality is seen. Electronically Signed: Kevon Sorto MD at 13:29 EDT , Hip/Pelvis X-Ray 01/05/24 13:10 IMPRESSION: Degenerative changes. No fracture or dislocation is seen. Healed right superior and inferior pubic rami fracture. Electronically Signed: Kevon Sorto MD at 14:03 EDT , Brain CT 01/05/24 14:44 IMPRESSION: Chronic involutional changes of the brain. Electronically Signed: Kevon Sorto MD at 15:24 EDT , EKG EKG shows sinus rhythm rate of 60 bpm, QRS duration 90 ms,: Comments: 60 bpm, QRS duration 90 ms, no acute ST elevation, no acute infarct noted. Sinus rhythm Treatment and Re-Evaluation :: Patient is alert and oriented x 4, patient's vital signs are stable. Patient is a poor informant. Patient presenting to the emergency department for near syncopal episodes, worse with standing and moving. Differential diagnosis includes ACS, PR, stroke, electrolyte abnormality, UTI, worsening weakness. Patient's laboratory values show a stable anemia with a hemoglobin 11.3, patient is stable, patient's potassium was unremarkable, kidney function was unremarkable, patient glucose within normal limits. Patient was orthostatic negative. Patient urinalysis was positive for infection with 1+ bacteria 25-50 white blood cells, 500 leukocytes, patient was given Bactrim. Patient was x-rayed to his chest which returned by the ER physician showed no acute process. Patient's right hip was x-rayed COVID shows degenerative changes, no fracture or dislocation seen. On reevaluation, the patient was given 1 L normal saline. He was to ambulate however patient almost had a single episode while ambulating. Patient will receive a CT scan of the brain. Patient CT scan the brain was unremarkable. At this time, patient will need to be admitted to the hospital. Patient is unable to ambulate, patient also has a UTI. I will reach out to hospitalist. Hospital admit the patient. Spoke with the patient, patient stable for admission. <Dr. Zeb Webster MD - Last Filed: 01/05/24 16:22> [facility] Narrative Medical decision making narrative: I have personally performed a face to face assessment of the patient and have reviewed the RAS Note. I performed a substantive portion of the visit including all aspects of the following. My [place] findings include: History is remarkable for prior falls, prior syncopal episodes, CVA, compression fracture lumbar vertebrae, opiate dependency, coronary artery disease, BPH, essential hypertension, hyperlipidemia and colostomy due to colon cancer who presents because he passed out. He did not have pain prior to this. He did not have chest discomfort or shortness of breath. He denies blood in his colostomy bag or maroon stool or black stool. He states he has trouble with his balance. This is not an acute issue. He presently denies headache, visual, ocular auditory symptoms. Nuys trouble speech or swallowing. He denies abdominal pain. He denies back pain. His son went into the room after he heard him fall. He was not pale or diaphoretic. Exam is remarkable for a elderly gentleman has trouble with balance. He appears pale. Conjunctive are pink though. Head is atraumatic normocephalic. Head is normocephalic. Ears nose exam is normal. Extract muscle intact prescribes anicteric. Conjunctive is pink. Lungs are clear to auscultation. Heart is regular. Rate is normal. There is no murmur, gallop or rub. Abdomen is benign. He is alert she is oriented. Medical Decision Making patient has a nonfocal neurologic exam. There is no indication for CT of the head. Will obtain CBC to assess H&H and compared to prior. BMP to assess for renal dysfunction. EKG was obtained to assess for any dysrhythmia as well as placed on a monitor. Other additions or changes: Having difficulty standing his own had near syncopal sewed. Since patient cannot walk without assistance will obtain CT to evaluate for any intracranial process. Lab Data Attestation: I reviewed the patient's lab results. Lab results narrative: CBC reveals mild anemia, which is chronic. Basic metabolic panel is normal. Urinalysis is consistent with infection with pyuria 25-50 WBCs and 1+ bacteria.. Patient is symptomatic with complaint of frequency. Initial plan was p.o. Bactrim and discharged to home. Labs: Laboratory Results - last 24 hr 01/05/24 01/05/24 12:30 14:05 WBC 8.6 RBC 3.84 L Hgb 11.3 L Hct 35.6 L MCV 92.7 MCH 29.4 MCHC 31.7 L RDW Std Deviation 48.8 H RDW Coeff of Kathryn 14.4 Plt Count 178 MPV 8.8 Immature Gran % (Auto) 0.600 Neut % (Auto) 70.9 H Lymph % (Auto) 16.4 L [place] % (Auto) 8.8 Eos % (Auto) 3.0 Baso % (Auto) 0.3 Absolute Neuts (auto) 6.1 Absolute Lymphs (auto) 1.42 Nucleated RBC % 0 Sodium 138 Potassium 4.3 Chloride 109 H Carbon Dioxide 26.0 Anion Gap 3 L BUN 20 H Creatinine 1.15 Est GFR (MDRD) Af Amer 78 Est GFR (MDRD) Non-Af 64 BUN/Creatinine Ratio 17.4 Glucose 102 Calcium 9.0 Urine Color Yellow Urine Clarity Sl. Cloudy Urine pH 6.0 Ur Specific [place] 1.015 Urine Protein 15 H Urine Glucose (UA) Normal Urine Ketones Negative Urine Occult Blood 25 H Urine Nitrite Negative Urine Bilirubin Negative Urine Urobilinogen Normal Ur Leukocyte Esterase 500 H Urine RBC 0-5 SEEN Urine WBC 25-50 SEEN Ur Squamous Epith Cells 0-5 SEEN Urine Bacteria 1+ Urine Mucus 0 SEEN Radiography Diagnostic Testing: Clinical Impression(s) from Imaging Studies Chest X-Ray 01/05/24 13:10 IMPRESSION: No acute abnormality is seen. Electronically Signed: Kevon Sorto MD at 13:29 EDT , Hip/Pelvis X-Ray 01/05/24 13:10 IMPRESSION: Degenerative changes. No fracture or dislocation is seen. Healed right superior and inferior pubic rami fracture. Electronically Signed: Kevon Sorto MD at 14:03 EDT , Brain CT 01/05/24 14:44 IMPRESSION: Chronic involutional changes of the brain. Electronically Signed: Kevon Sorto MD at 15:24 EDT , Discharge Plan Triage Chief Complaint: Syncope ED Midlevel Provider: Sam Feldman ED Provider: Zeb Webster Dx/Rx/DC Orders Clinical Impression: Near syncope, Syncope, Acute UTI Primary Care Provider: Vishal Antonio
[2024-01-05] MEDS: 0.9% Normal Saline (1000mL) 1,000 ML 1000 ML IV (12:32)
[2024-01-05 12:48] LABS: Absolute Lymphocyte Count 1.42 X10^3/uL (0.83-4.51); Absolute Neutrophil Count 6.1 X10^3/uL (2.0-7.7); Basophil# 0.03 X10^3/uL; Basophil% 0.3 % (0-1); Eosinophil# 0.26 X10^3/uL; Hematocrit 35.6 % (40-54); Hemoglobin 11.3 g/dL (13.0-16.5); Lymphocyte # 1.42 X10^3/ul (0.83-4.51); Lymphocyte % 16.4 % (19-41); Mean Corp Hgb Conc 31.7 g/dL (32-36); Mean Corpuscular Hgb 29.4 pg (27.0-32.0); Mean Corpuscular Volume 92.7 fL (80-94); Mean Platelet Vol. 8.8 fl (6.2-12.0); Monocyte# 0.76 X10^3/uL; Monocyte% 8.8 % (0-10); NRBC Flagged by Analyzer 0 % (0-5); Neutrophil # 6.12 X10^3/uL (2.7-7.7); Neutrophil % 70.9 % (47-70); Platelet Count 178 K/mm3 (150-450); RBC Distribution Width CV 14.4 % (11.6-14.6); RBC Distribution Width SD 48.8 fl (35.1-43.9); Red Blood Count 3.84 M/mm3 (4.6-6.2); White Blood Count 8.6 K/mm3 (4.4-11.0)
[2024-01-05 13:00] LABS: Anion Gap 3 (5-15); BUN 20 mg/dL (7-18); BUN/Creat Ratio 17.4 RATIO (10-20); Chloride 109 mmol/L (98-107); Creatinine, Serum 1.15 mg/dL (0.70-1.30); EST Glomerular Filtration Rate 64 mL/min (>60); Est Glom Filt Rate - Afr Amer 78 mL/min (>60); Glucose 102 mg/dL (74-106); Potassium 4.3 mmol/L (3.5-5.1); Sodium Level 138 mmol/L (136-145)
--- NOTE | 2024-01-05 13:10 | RAD_ITS ---
STUDY: X-RAY CHEST REASON FOR EXAM: Male, 83 years old. Chest pain TECHNIQUE: Single AP portable view of the chest. COMPARISON: Comparison is made with prior study dated November 14, 2023. FINDINGS: A right-sided chen catheter seen with the tip at the junction of the superior vena cava and right atrium. EKG electrodes are seen. Hyperinflation. The lungs are clear. There is no demonstrated pleural abnormality. Normal size heart. Normal mediastinum and [place]. Normal visualized pulmonary arteries. Normal visualized aortic arch and descending thoracic aorta. There are degenerative changes of the visualized thoracic spine. Normal visualized ribs, clavicles, and shoulders. There is no demonstrated abnormality of the visualized soft tissue structures of the upper abdomen. RAD/Chest 1 View (Portable) IMPRESSION: No acute abnormality is seen. Electronically Signed: Kevon Sorto MD at 13:29 EDT ,
--- NOTE | 2024-01-05 13:10 | RAD_ITS ---
STUDY: X-RAY - PELVIS AND RIGHT HIP REASON FOR EXAM: Male, 83 years old. Fall TECHNIQUE: 3 views of the pelvis and hip. COMPARISON: None. FINDINGS: There is a non-specific bowel gas pattern. There is evidence of prior right inguinal hernia repair. Normal bilateral iliac wings, sacroiliac joints and visualized sacrum. Healed right superior and inferior pubic rami fractures. Normal pubic symphysis. Normal bilateral ischial tuberosities. Normal visualized femoral head. There is osteoarthritic spur formation of the acetabular rim. There is moderate articular joint space narrowing of the hip. Chest changes of the visualized lumbar spine. RAD/HIP, UNI W/ Pelvis 2-3 Views IMPRESSION: Degenerative changes. No fracture or dislocation is seen. Healed right superior and inferior pubic rami fracture. Electronically Signed: Kevon Sorto MD at 14:03 EDT ,
[2024-01-05 14:08] LABS: Mucous, Urine 0 SEEN /hpf (<or=2+)
[2024-01-05 14:14] LABS: Color, Urine Yellow (Yellow); Glucose, Dipstick Normal (Normal); Ketone-Dipstick Negative (Negative); Leukocyte Esterase-Dipstick 500 /ul (Negative); Nitrite-Dipstick Negative (Negative); Occult Blood-Urine 25 /ul (Negative); Protein-Dipstick 15 mg/dl (Negative); Specific Gravity, Urine 1.015 (1.002-1.030); Urine Bilirubin Dipstick Negative (Negative); Urine Clarity Sl. Cloudy (Clear); Urine Urobilinogen Normal (Normal)
[2024-01-05 14:21] LABS: Bacteria 1+ /hpf (None Seen); Red Blood Cells-Urine 0-5 SEEN /hpf (0-5); Squamous Epithelial Cells - UA 0-5 SEEN /hpf (0-5); White Blood Cells 25-50 SEEN /hpf (0-5)
[2024-01-05] MEDS: Smz/Tmp Ds Tablet 1 TABLET PO (14:30)
--- NOTE | 2024-01-05 14:42 | ED.RN ---
sat up to side of bed c/o being a little lightheaded but not bad. sate for few minutes. attempted to stand. stood for few seconds pt said waint, fell back into the bed. laid his head on the hob which was elevated. states i felt like i was going to pass out. it did just the same as earlier. i almost passed out again. assisted back to bed. dr wilks
--- NOTE | 2024-01-05 14:44 | CT_ITS ---
STUDY: CT BRAIN WITHOUT CONTRAST REASON FOR EXAM: Male, 83 years old. Dizziness RADIATION DOSAGE (If Supplied By Facility): CTDIvol = ( 44.99 ) mGy, DLP = ( 829.85 ) mGycm TECHNIQUE: Transaxial CT imaging of the brain was performed without administration of intravenous contrast material. Individualized dose optimization techniques were used for this CT. COMPARISON: Comparison is made with prior study dated November 14, 2023. FINDINGS: Normal soft tissue structures. Normal calvarium. There is mild cerebral atrophy with widening of the extra-axial spaces and ventricular dilatation. There are areas of decreased attenuation within the white matter tracts of the supratentorial brain, consistent with microvascular disease changes. Normal basal ganglia and thalami. Normal brainstem. Normal cerebellum. There is no intracranial hemorrhage. There are no findings of an acute ischemic infarction. Atherosclerotic plaque formation of the vertebral arteries and cavernous portions of the internal carotid arteries bilaterally. Normal visualized paranasal sinuses. CT/Brain/Head without Contrast IMPRESSION: Chronic involutional changes of the brain. Electronically Signed: Kevon Sorto MD at 15:24 EDT ,
--- NOTE | 2024-01-05 16:17 | HP.PCM.HOS_ITS ---
[facility] - General General Date of Service: 01/05/24 Chief Complaint: Syncope HPI Narrative HOWIE MANZO, is a 83 M who presents with syncopal episode. Patient was opening his door to his refrigerator and felt dizzy and was flying back. Did not lose consciousness before he had fallen. Presented to the emergency room where they evaluated him he had a head CT that was unremarkable. Did have positive orthostatic vital signs patient did receive IV fluids but is still remained symptomatic where he would get dizzy upon standing and would nearly pass out. With that, the emergency room reach out the hospitalist for admission. Patient states that he has been feeling dizzy with standing for several months now. [facility] Medical History Acute cerebrovascular accident (CVA) Adenocarcinoma Alcohol abuse Alcohol use Ambulates with cane Anxiety Arthritis Atherosclerosis of coronary artery of teller heart without angina pectoris Back pain BPH (benign prostatic hyperplasia) Bright's disease Cancer Cardiology follow-up encounter Chest pain Chewing tobacco nicotine dependence Chronic pain Chronic pain Cognitive impairment Colon cancer CVA (cerebral vascular accident) Depression Easy bruising Essential (primary) hypertension Fall Frequent falls Gait instability GI bleed Hearing loss, left Hearing loss, right High cholesterol History of echocardiogram History of heart attack History of pain when walking History of prostate cancer History of radiation therapy History of stress test HLD (hyperlipidemia) Kidney disease Kidney stones Myocardial infarct Non-smoker Old inferior wall myocardial infarction Smoker Stroke/cerebrovascular accident Vision loss of left eye Vision loss of right eye Vitamin D deficiency Wears dentures Wears glasses Wears hearing aid Home Medications finasteride 5 mg tablet (Proscar) 5 mg PO DAILY PROSTATE 01/27/18 [History Last Taken 01/05/24] aspirin 81 mg tablet,delayed release (Adult Low Dose Aspirin) 81 mg PO DAILY HEART HEALTH 07/30/18 [History Last Taken 01/04/24] tamsulosin 0.4 mg capsule 0.4 mg PO QHS PROSTATE 10/21/21 [History Last Taken 01/04/24] nitroglycerin 0.4 mg sublingual tablet 0.4 mg sublingual Q5M PRN CHEST PAIN #25 tabs 05/12/23 [Rx Last Taken Unknown] atorvastatin 10 mg tablet 10 mg PO QHS CHOLESTEROL 10/31/23 [History Last Taken 01/04/24] bupropion HCl 150 mg tablet,12 hr sustained-release 150 mg PO BID DEPRESSION 10/31/23 [History Last Taken 01/05/24] mirtazapine 45 mg tablet 45 mg PO QHS DEPRESSION 10/31/23 [History Last Taken 01/04/24] gabapentin 100 mg capsule 100 mg PO TID NEUROPATHY 11/14/23 [History Last Taken 01/05/24] lidocaine 5 % topical patch 2 patch topical DAILY PAIN #0 ea 11/17/23 [Rx Last Taken 01/05/24] isosorbide mononitrate 60 mg tablet,extended release 24 hr 60 mg PO DAILY HEART #90 tabs 12/15/23 [Rx Last Taken 01/05/24] acetaminophen 500 mg tablet 1,000 mg PO Q6H PRN PAIN 12/25/23 [History Last Taken 01/05/24] atenolol 25 mg tablet 12.5 mg PO DAILY BLOOD PRESSURE 12/25/23 [History Last Taken 12/25/23] multivitamin (Daily Multi-Vitamin tablet) 1 tab PO DAILY 01/05/24 [History Last Taken 01/05/24] Allergy/AdvReac Type Severity Reaction Status Date / Time No Known Allergies Allergy Verified 01/05/24 11:57 Family History Father Cancer skin cancer Mother Myocardial infarction Diabetes Other Fall Surgical History H/O percutaneous transluminal coronary angioplasty (11/13/93) History of angioplasty History of colostomy History of cystoscopy History of inguinal hernia repair, bilateral History of left heart catheterization (02/24/02) History of rotator cuff surgery Hx of appendectomy Hx of colectomy Status post trigger finger release Social History household members: none Smoking Status: Never smoker alcohol intake: current alcohol intake frequency: a few times a month Alcohol type: hard liquor substance use type: does not use caffeine: Yes Type: coffee Number of servings: 1 [employer] Narrative Does have chronic radicular pain going down his right lower extremity. Does have a hernia in his left sided abdomen. Does have colostomy in left lower quadrant. States he been eating and drinking well. All review of systems were negative except as mentioned above in the history of present illness and the other review of systems. Vital Signs Vital Signs Vital Signs: 01/05/24 11:57 01/05/24 11:56 01/05/24 12:12 Temperature 36.4 C L Temperature Source Temporal Pulse Rate 58 L Pulse Rate [Lying] Pulse Rate [Sitting (for 1 minute prior to obtaining)] Pulse Rate [Standing (for 1 minute prior to obtaining)] Respiratory Rate 18 Respiratory Effort Respiratory Pattern Blood Pressure 105/60 Blood Pressure [Lying] Blood Pressure [Sitting (for 1 minute prior to obtaining)] Blood Pressure [Standing (for 1 minute prior to obtaining)] Blood Pressure Mean 75 Blood Pressure Mean [Lying] Blood Pressure Mean [Sitting (for 1 minute prior to obtaining)] Blood Pressure Mean [Standing (for 1 minute prior to obtaining)] Pulse Ox 98 Oxygen Delivery Method Room Air Room Air Room Air 01/05/24 11:58 01/05/24 12:40 01/05/24 13:56 Temperature Temperature Source Pulse Rate 55 L Pulse Rate [Lying] 60 Pulse Rate [Sitting (for 1 minute prior to obtaining)] 70 Pulse Rate [Standing (for 1 minute prior to obtaining)] 75 Respiratory Rate 18 Respiratory Effort Normal Non-Labored Respiratory Pattern Normal Blood Pressure 134/101 H Blood Pressure [Lying] 110/96 H Blood Pressure [Sitting (for 1 minute prior to obtaining)] 122/57 H Blood Pressure [Standing (for 1 minute prior to obtaining)] 107/65 Blood Pressure Mean 112 Blood Pressure Mean [Lying] 100 Blood Pressure Mean [Sitting (for 1 minute prior to obtaining)] 78 Blood Pressure Mean [Standing (for 1 minute prior to obtaining)] 79 Pulse Ox 98 Oxygen Delivery Method Room Air 01/05/24 14:32 Temperature Temperature Source Pulse Rate 58 L Pulse Rate [Lying] Pulse Rate [Sitting (for 1 minute prior to obtaining)] Pulse Rate [Standing (for 1 minute prior to obtaining)] Respiratory Rate 18 Respiratory Effort Respiratory Pattern Blood Pressure 122/83 H Blood Pressure [Lying] Blood Pressure [Sitting (for 1 minute prior to obtaining)] Blood Pressure [Standing (for 1 minute prior to obtaining)] Blood Pressure Mean 96 Blood Pressure Mean [Lying] Blood Pressure Mean [Sitting (for 1 minute prior to obtaining)] Blood Pressure Mean [Standing (for 1 minute prior to obtaining)] Pulse Ox 100 Oxygen Delivery Method Room Air Weight Weight: 76.7 kg Body Mass Index (BMI) 26.4 Physical Exam Const alert and no apparent distress HEENT normocephalic, head/scalp atraumatic and moist oral mucous membranes Eyes EOMs intact bilaterally Eyes Narrative: No icterus. Glasses. Neck no lymphadenopathy and no carotid bruits Resp normal respiratory effort, no retractions, no use of accessory muscles and clear to auscultation bilaterally Cardio Cardio Narrative: Distant heart sounds but regular. GI normal to inspection, nondistended, normoactive bowel sounds, soft to palpation, non-tender, non-distended and hepatosplenomegaly GI Narrative: Colostomy left lower quadrant. Extremity normal to inspection and no clubbing, cyanosis or edema Neuro oriented x3, CN's II-XII intact bilaterally and moves all extremities Sensorium / Orientation: awake and alert Speech: speech normal Psych affect normal Results Lab / Micro Data Attestation: I reviewed the patient's lab results. 01/05/24 12:30 01/05/24 12:30 Labs: Laboratory Results - last 24 hr 01/05/24 12:30: WBC 8.6, RBC 3.84 L, Hgb 11.3 L, Hct 35.6 L, MCV 92.7, MCH 29.4, MCHC 31.7 L, RDW Std Deviation 48.8 H, RDW Coeff of Kathryn 14.4, Plt Count 178, MPV 8.8, Immature Gran % (Auto) 0.600, Neut % (Auto) 70.9 H, Lymph % (Auto) 16.4 L, [place] % (Auto) 8.8, Eos % (Auto) 3.0, Baso % (Auto) 0.3, Absolute Neuts (auto) 6.1, Absolute Lymphs (auto) 1.42, Nucleated RBC % 0, Sodium 138, Potassium 4.3, Chloride 109 H, Carbon Dioxide 26.0, Anion Gap 3 L, BUN 20 H, Creatinine 1.15, Est GFR (MDRD) Af Amer 78, Est GFR (MDRD) Non-Af 64, BUN/Creatinine Ratio 17.4, Glucose 102, Calcium 9.0 01/05/24 14:05: Urine Color Yellow, Urine Clarity Sl. Cloudy, Urine pH 6.0, Ur Specific [place] 1.015, Urine Protein 15 H, Urine Glucose (UA) Normal, Urine Ketones Negative, Urine Occult Blood 25 H, Urine Nitrite Negative, Urine Bilirubin Negative, Urine Urobilinogen Normal, Ur Leukocyte Esterase 500 H, Urine RBC 0-5 SEEN, Urine WBC 25-50 SEEN, Ur Squamous Epith Cells 0-5 SEEN, Urine Bacteria 1+, Urine Mucus 0 SEEN EKG Initial EKG: Attestation: I personally reviewed and interpreted this EKG as follows: Prior EKG tracings: available for review EKG Rhythm Intrepretation: Sinus Rhythm Imaging Radiology Impression Chest X-Ray 01/05/24 13:10 IMPRESSION: No acute abnormality is seen. Electronically Signed: Kevon Sorto MD at 13:29 EDT , Hip/Pelvis X-Ray 01/05/24 13:10 IMPRESSION: Degenerative changes. No fracture or dislocation is seen. Healed right superior and inferior pubic rami fracture. Electronically Signed: Kevon Sorto MD at 14:03 EDT , Brain CT 01/05/24 14:44 IMPRESSION: Chronic involutional changes of the brain. Electronically Signed: Kevon Sorto MD at 15:24 EDT , Assessment & Plan Assessment/Plan (1) Syncope: PLAN: Plan Syncope * I suspect due to orthostatic hypotension. Patient had positive orthostats here in the emergency room. * He did receive a liter of IV fluids in the emergency room. Will give an additional liter IV fluids and recheck orthostats in the morning. * Hold his isosorbide. Hold parameters for his atenolol. * Edition will have physical Occupational Therapy evaluate him as [facility]. * I do not feel additional workup is necessary. Patient will be monitored telemetry. If other events do occur or if there is evidence of arrhythmias on telemetry, then patient may benefit from additional workup including echocardiogram. Abnormal urinalysis * I do not feel that this rises to the level of urinary tract infection. It is noted the patient does have however leuk esterase 25-50 white blood cells and 1+ bacteria but overall does not appear to be infected. Patient did receive a dose of Bactrim in the emergency room. Will hold off on any additional antibiotics at this time. Chronic conditions * BPH: Continue with finasteride and tamsulosin * History of stroke: Continue with aspirin and atorvastatin * Depression: Continue bupropion * Chronic pain: Continue with isosorbide. VTE prophylaxis: Low risk given current observation status. CODE STATUS: Addressed with the patient. Patient wished to be DNR Comfort Care arrest. He is okay with short-term intubation. Charges/Coding Visit Charges Inpatient E&M: 82783 Init Hosp L3
[2024-01-05] MEDS: 0.9% Normal Saline (1000mL) 1,000 ML 150 ML IV (18:25)
[2024-01-05] MEDS: Gabapentin 100 MG Capsule PO (18:30)
[2024-01-05] MEDS: Mirtazapine 30 MG Tablet 45 MG PO (21:58)
[2024-01-05] MEDS: Tamsulosin HCl 0.4 MG Capsule PO (21:58)
[2024-01-05] MEDS: Atorvastatin Calcium 10 MG Tablet PO (21:58)
[2024-01-05] MEDS: buPROPion (SR) 150 MG Tablet.SA PO (21:58)
[2024-01-06 04:00] VITALS: BP 121/69; PULSE 75; RESP 16; TEMP 36.4; O2SAT 98
--- NOTE | 2024-01-06 06:05 | NURSING ---
spoke with daughter Rita and updated her on patient. She would like called by case management to go over patients home care. She would also like called with an update on patient after daytime doctor sees patient.
[2024-01-06 08:05] VITALS: BP 111/70; BP 114/64; BP 92/57; PULSE 71; PULSE 73; PULSE 86; RESP 16; TEMP 36.7; O2SAT 96
[2024-01-06] MEDS: Multivitamins,Therapeutic Tablet 1 TABLET PO (08:07)
[2024-01-06] MEDS: Aspirin E.C. 81 MG Tablet PO (08:07)
[2024-01-06] MEDS: Gabapentin 100 MG Capsule PO ×3 (08:07→16:41)
[2024-01-06] MEDS: buPROPion (SR) 150 MG Tablet.SA PO (08:08)
[2024-01-06] MEDS: Lidocaine 5% Patch 2 PATCH TOPICAL (08:08)
[2024-01-06] MEDS: Finasteride 5 MG Tablet PO (08:08)
[2024-01-06 12:56] VITALS: BP 102/66; PULSE 85; RESP 16; TEMP 36.4; O2SAT 98
--- NOTE | 2024-01-06 14:40 | CASEMGMT ---
Met with pt to complete [employer] form. [employer] form explained to pt at this time who voiced understanding and signed form. Original form placed in pt?s chart and copy provided to the pt. Aashish Calderon RN CM
--- NOTE | 2024-01-06 15:03 | DCINST_ITS ---
Discharge Instructions Diet Discharge Diet: No restrictions Activity Discharge Activity: Return to Normal Activity Weight Bearing Status: Full weight bearing (With walker) Follow Up Care Test Results: Test results from this visit will be discussed in further detail at your follow- up appointment, if applicable. Discharge Plan Admission Admit Date/Time: 01/05/24 16:11 Primary Reason for Your Visit: Syncope Attending Provider: Samuel Falk Primary Care Provider: Vishal Antonio Consulting Providers: Alvaro Bernardo Discharge Orders/Prescriptions Prescriptions: Continued finasteride [Proscar] 5 mg tablet 5 mg PO DAILY aspirin [Adult Low Dose Aspirin] 81 mg tablet,delayed release (DR/EC) 81 mg PO DAILY tamsulosin 0.4 mg capsule 0.4 mg PO QHS gabapentin 100 mg capsule 100 mg PO TID lidocaine 5 % Adhesive Patch,Medicated 2 patch topical DAILY Qty: 0 0RF Protocol: *Topical Application Instructions APPLICATION INSTRUCTIONS: Apply to lumbar spine and right and left paraspinal muscles. Patient Comments: pt put new patch on this morning 01/04 multivitamin [Daily Multi-Vitamin] Tablet 1 tab PO DAILY atorvastatin 10 mg tablet 10 mg PO QHS bupropion HCl 150 mg tablet sustained-release 12 hr 150 mg PO BID mirtazapine 45 mg tablet 45 mg PO QHS atenolol 25 mg tablet 12.5 mg PO DAILY acetaminophen 500 mg Tablet 1,000 mg PO Q6H PRN (Reason: PAIN ) nitroglycerin 0.4 mg tablet, sublingual 0.4 mg SL Q5M PRN (Reason: CHEST PAIN ) Qty: 25 3RF Discontinued isosorbide mononitrate 60 mg tablet extended release 24 hr 60 mg PO DAILY Qty: 90 3RF Referrals / Follow Up: Vishal Antonio MD [Primary Care Provider] - Within 2 Weeks Disposition Disposition (needs filled in before D/C Order can be placed): Home, Self Care
--- NOTE | 2024-01-06 15:24 | PCM.DC.SUM ---
Providers Date of Admission: 01/05/24 Date of Discharge: 01/06/24 Primary Care Physician: Dr. Vishal Antonio MD Reason For Visit: syncope Diagnosis Discharge Diagnosis (1) Syncope: Status: Acute Code(s): R55 - Syncope and collapse Plan 1. Vasovagal syncope #2 clinical dehydration #3 bacteriuria Medications at Discharge Home Medications finasteride 5 mg tablet (Proscar) 5 mg PO DAILY PROSTATE 01/27/18 aspirin 81 mg tablet,delayed release (Adult Low Dose Aspirin) 81 mg PO DAILY HEART HEALTH 07/30/18 tamsulosin 0.4 mg capsule 0.4 mg PO QHS PROSTATE 10/21/21 nitroglycerin 0.4 mg sublingual tablet 0.4 mg sublingual Q5M PRN CHEST PAIN #25 tabs 05/12/23 atorvastatin 10 mg tablet 10 mg PO QHS CHOLESTEROL 10/31/23 bupropion HCl 150 mg tablet,12 hr sustained-release 150 mg PO BID DEPRESSION 10/31/23 mirtazapine 45 mg tablet 45 mg PO QHS DEPRESSION 10/31/23 gabapentin 100 mg capsule 100 mg PO TID NEUROPATHY 11/14/23 lidocaine 5 % topical patch 2 patch topical DAILY PAIN #0 ea 11/17/23 acetaminophen 500 mg tablet 1,000 mg PO Q6H PRN PAIN 12/25/23 atenolol 25 mg tablet 12.5 mg PO DAILY BLOOD PRESSURE 12/25/23 multivitamin (Daily Multi-Vitamin tablet) 1 tab PO DAILY 01/05/24 Hospital Course Operations None Procedures None Summary of Care Provided Minutes Spent on Discharge: 30 Hospital Course: This 83-year-old white male was seen in the emergency room at [facility] after having a brief syncopal episode at home, there were no injuries with this event. Workup in the emergency room including an EKG was unremarkable. He was orthostatic however in the emergency room was given fluids. Patient was placed in observation on PCU and monitored on telemetry, no untoward events were noted, he was seen by PT and OT and was able to ambulate without difficulty. Patient just had an echocardiogram done in October of this year which was unremarkable On 01/06/2024, patient was seen and examined: On examination he appeared in good health and spirits. Vital signs as documented. Skin warm and dry and without overt rashes. Neck without JVD, neck was supple, trachea midline, thyroid was normal. Lungs clear bilaterally, normal air movement was noted. Heart exam notable for regular rhythm, normal sounds and absence of murmurs, rubs or gallops. Abdomen unremarkable and without evidence of organomegaly, masses, or abdominal aortic enlargement. Bowel sounds are present, abdomen is not distended. Extremities nonedematous, no cyanosis was noted, no clubbing was noted. Neuro: Cranial nerves II through XII are grossly intact, no focal motor deficits were noted, sensation to light touch and pinprick intact, motor exam 5/5 throughout. Psych: Patient is alert and oriented x3, he does not appear anxious or depressed, he does not appear agitated. Patient appears stable for discharge home on 01/06/2024, he has isosorbide was discontinued at the time of discharge due to concerns of hypotension with this medication. Weight / BMI Weight Weight: 78.3 kg Body Mass Index (BMI) 27.0 ABG / Lab / Microbiology Data 01/05/24 12:30 01/05/24 12:30 Microbiology: Microbiology 01/05/24 14:05 Urine, Clean Catch Urine Culture - Preliminary Presumptive E. coli Radiography Diagnostic Testing: Radiology Impression Brain CT 01/05/24 14:44 IMPRESSION: Chronic involutional changes of the brain. Electronically Signed: Kevon Sorto MD at 15:24 EDT Reading Location ID and State: [facility] / [place] , Service support , D/C Instructions Discharge Diet: No restrictions Weight Bearing Status: Full weight bearing (With walker) Meaningful Use Info Meaningful Use Meaningful Use Diagnoses (Choose all that apply): None applicable Ischemic Stroke Statin Dosing Therapy Reference: STATIN DOSE THERAPY REFERENCE: * Patients > 75 years receive moderate or high dose statin therapy. * Patients 75 years or YOUNGER should receive HIGH intensity statin dose unless contraindicated. You will be required to document reason for non-treatment if statin daily dose does not meet guidelines. HIGH DOSE STATIN THERAPY DAILY Atorvastatin > than or = to 40 mg Rosuvastatin > than or = to 20 mg Amlodipine + Atorvastatin > than or = to 2.5/40 mg Ezetimibe + Simvastatin 10/80 mg Simvastatin 80mg Discharge Plan Admission Admit Date/Time: 01/05/24 16:11 Primary Reason for Your Visit: Syncope Attending Provider: Samuel Falk Primary Care Provider: Vishal Antonio Consulting Providers: Alvaro Bernardo Discharge Orders/Prescriptions Prescriptions: Continued finasteride [Proscar] 5 mg tablet 5 mg PO DAILY aspirin [Adult Low Dose Aspirin] 81 mg tablet,delayed release (DR/EC) 81 mg PO DAILY tamsulosin 0.4 mg capsule 0.4 mg PO QHS gabapentin 100 mg capsule 100 mg PO TID lidocaine 5 % Adhesive Patch,Medicated 2 patch topical DAILY Qty: 0 0RF Protocol: *Topical Application Instructions APPLICATION INSTRUCTIONS: Apply to lumbar spine and right and left paraspinal muscles. Patient Comments: pt put new patch on this morning 01/04 multivitamin [Daily Multi-Vitamin] Tablet 1 tab PO DAILY atorvastatin 10 mg tablet 10 mg PO QHS bupropion HCl 150 mg tablet sustained-release 12 hr 150 mg PO BID mirtazapine 45 mg tablet 45 mg PO QHS atenolol 25 mg tablet 12.5 mg PO DAILY acetaminophen 500 mg Tablet 1,000 mg PO Q6H PRN (Reason: PAIN ) nitroglycerin 0.4 mg tablet, sublingual 0.4 mg SL Q5M PRN (Reason: CHEST PAIN ) Qty: 25 3RF Discontinued isosorbide mononitrate 60 mg tablet extended release 24 hr 60 mg PO DAILY Qty: 90 3RF Referrals / Follow Up: Vishal Antonio MD [Primary Care Provider] - Within 2 Weeks Disposition Disposition (needs filled in before D/C Order can be placed): Home, Self Care Charges/Coding Visit Charges Inpatient E&M: 75127 Disch Hosp
--- NOTE | 2024-01-06 16:04 | CASEMGMT ---
ELIE PETERSON called daughter Rita to discuss needs at discharge. Per Rita, plan is for patient to return home with Rita's boyfriend staying with patient and resumption of [facility]. Rita denied further needs at discharge and advised to follow-up with PCP. Rita had no further questions or concerns. ELIE PETERSON sent discharge information to [facility] via [employer].
--- NOTE | 2024-01-06 16:08 | CHAPLAIN ---
Type of Pastoral Visit _x__ Initial Visit ___ Follow-up Visit ___ On-call Visit ___ General Patient Visit ___ Spiritual Assessment ___ Family Conference ___ Bereavement ___ Rapid Response ___ Code Blue ___ Other (describe below) Pastoral Care Referral From _x__ Patient ___ Family ___ Nurse ___ Physician ___ Herpetologist ___ Telecommunications Linesworker ___ Other (describe below) Sacrament/Intervention _x__ Active listening ___ Anointing ___ Moravian ___ Bereavement ___ Communion ___ Amparo exploration ___ ___ Life review _x__ Prayer ___ Reconciliation ___ Sacrament of Sick ___ Supportive presence ___ Wedding ___ Other (describe below) Pastoral Comments patient is welcoming and talkative; pt thinks that he is doing fine and is expecting to be discharged today; pt talks about his life and home situation; pt asks for a prayer
[2024-01-06 16:36] VITALS: BP 107/65; PULSE 80; RESP 16; TEMP 36.7; O2SAT 95
[2024-01-06] MEDS: 0.9% Saline Lock 10 ML Syringe IV (16:41)
--- NOTE | 2024-01-27 10:57 | CCN.REFER ---
AGREEABLE TO CCN. HOME VISIT SCHEDULED FOR 02/09. DTR MADE AWARE VIA T/C
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
== END 2024-01-06 15:24 | disposition home or self-care (01) ==
LOC: ED 12:53 → PCU 16:26
PROVIDERS: Nurse Practitioner; Emergency Provider Emergency Medicine; PCP Family Medicine; Visit Provider Internal Medicine
DX: R55 Syncope and collapse (principal); Z93.3 Colostomy status; I10 Essential (primary) hypertension; I25.10 Atherosclerotic heart disease of native coronary artery without angina pectoris; E78.00 Pure hypercholesterolemia, unspecified; F17.220 Nicotine dependence, chewing tobacco, uncomplicated; Z85.038 Personal history of other malignant neoplasm of large intestine; Z79.899 Other long term (current) drug therapy; Z79.82 Long term (current) use of aspirin; N40.0 Benign prostatic hyperplasia without lower urinary tract symptoms; F32.A Depression, unspecified; G89.29 Other chronic pain; E86.0 Dehydration; R82.71 Bacteriuria
CPT/HCPCS: 70450; 71045; 73502; 80048; 81001; 85025; 87086; 87088; 87186; 93005; 96360; 96361; 97161; 97166; 99221; 99285; 99406; J7030; A4216; G0378

== ENCOUNTER 2024-02-19 14:55 | Emergency (ER) | payer MEDICARE, BC, SELFPAY ==
[2024-02-19 14:56] VITALS: BP 98/64; PULSE 94; RESP 14; TEMP 36.2; O2SAT 98
--- NOTE | 2024-02-19 15:21 | EDS_ITS ---
<Statement entered by Shannon Isbell MD - 02/19/24 17:10> I have personally performed a face to face assessment of the patient and have reviewed the RAS Note. Patient presents secondary to noticing blood in his urine today. He denies significant dysuria, but does have urgency and states if he strains hard to go he will have a slight pressure in the suprapubic area. No fever or chills. Patient sitting upright in bed no acute distress. Nontoxic-appearing. Head and neck examination unremarkable. Heart is regular rate and rhythm. Lung sounds are clear. Abdomen is soft and nontender. Ostomy is in place. CBC was normal white count 7.4 with normal differential. Hemoglobin is 12.1, consistent with his prior values. Chemistry studies reveal a BUN of 25 and a normal creatinine 0.98. Urinalysis reveals positive nitrites with 25-50 RBCs, greater than 100 white cells, and 2+ bacteria. This will be sent for culture. Patient given antibiotics and return instructions provided. HPI History of Present Illness Chief Complaint: Complaint Narrative Narrative: Patient is an 84-year-old male with history of prostate cancer who has an ileostomy, hypertension however states been lower recently hyperlipidemia presents to the emergency department for blood in his urine. Patient states this morning when he was urinating, there was some blood in his urine, whenever he would bear down, the blood was worse and he had some discomfort. Patient denies any back pain, fever chills, patient is currently not on any blood thinners. [facility] Medical History Acute cerebrovascular accident (CVA) Adenocarcinoma Alcohol abuse Alcohol use Ambulates with cane Anxiety Arthritis Atherosclerosis of coronary artery of [place] heart without angina pectoris Back pain BPH (benign prostatic hyperplasia) Bright's disease Cancer Cardiology follow-up encounter Chest pain Chewing tobacco nicotine dependence Chronic pain Chronic pain Cognitive impairment Colon cancer CVA (cerebral vascular accident) Depression Easy bruising Essential (primary) hypertension Fall Frequent falls Gait instability GI bleed Hearing loss, left Hearing loss, right High cholesterol History of echocardiogram History of heart attack History of pain when walking History of prostate cancer History of radiation therapy History of stress test HLD (hyperlipidemia) Kidney disease Kidney stones Myocardial infarct Non-smoker Old inferior wall myocardial infarction Smoker Stroke/cerebrovascular accident Vision loss of left eye Vision loss of right eye Vitamin D deficiency Wears dentures Wears glasses Wears hearing aid Home Medications ?Medication ?Instructions ?Recorded ?Last Taken ?Type finasteride 5 mg tablet (Proscar) 5 mg PO DAILY PROSTATE 01/27/18 01/05/24 History aspirin 81 mg tablet,delayed 81 mg PO DAILY HEART HEALTH 07/30/18 01/04/24 History release (Adult Low Dose Aspirin) tamsulosin 0.4 mg capsule 0.4 mg PO QHS PROSTATE 10/21/21 01/04/24 History nitroglycerin 0.4 mg sublingual 0.4 mg sublingual Q5M PRN CHEST 05/12/23 Unknown Rx tablet PAIN #25 tabs atorvastatin 10 mg tablet 10 mg PO QHS CHOLESTEROL 10/31/23 01/04/24 History bupropion HCl 150 mg tablet,12 hr 150 mg PO BID DEPRESSION 10/31/23 01/05/24 History sustained-release mirtazapine 45 mg tablet 45 mg PO QHS DEPRESSION 10/31/23 01/04/24 History gabapentin 100 mg capsule 100 mg PO TID NEUROPATHY 11/14/23 01/05/24 History lidocaine 5 % topical patch 2 patch topical DAILY PAIN #0 ea 11/17/23 01/05/24 Rx acetaminophen 500 mg tablet 1,000 mg PO Q6H PRN PAIN 12/25/23 01/05/24 History atenolol 25 mg tablet 12.5 mg PO DAILY BLOOD PRESSURE 12/25/23 12/25/23 History multivitamin (Daily Multi-Vitamin 1 tab PO DAILY 01/05/24 01/05/24 History tablet) cephalexin 500 mg capsule 500 mg PO TID 7 days #21 caps 02/19/24 Unknown Rx Allergy/AdvReac Type Severity Reaction Status Date / Time No Known Allergies Allergy Verified 02/19/24 14:55 Family History Father Cancer skin cancer Mother Myocardial infarction Diabetes Other Fall Surgical History H/O percutaneous transluminal coronary angioplasty (11/13/93) History of angioplasty History of colostomy History of cystoscopy History of inguinal hernia repair, bilateral History of left heart catheterization (02/24/02) History of rotator cuff surgery Hx of appendectomy Hx of colectomy Status post trigger finger release Social History household members: none Smoking Status: Never smoker alcohol intake: current alcohol intake frequency: a few times a month Alcohol type: hard liquor substance use type: does not use caffeine: Yes Type: coffee Number of servings: 1 ROS ROS ED ROS Narrative Constitutional: Negative for fever, chills, weight loss, weakness Eyes: Negative for vision loss, vision change, double vision ENT: Negative for any sore throat, ear pain, congestion Cardiovascular: Negative for any chest pain, tightness, palpitations Respiratory: Negative for any cough, sputum production, hemoptysis, dyspnea, dyspnea on exertion, orthopnea Gastrointestinal: Negative for any abdominal pain, nausea, vomiting, diarrhea, constipation, blood in stool, blood in vomit : Negative for any urinary frequency, dysuria, retention. Positive for blood in his urine Muscle skeletal: Negative for any neck pain, back pain Neurological: Negative for any headache, syncope, dizziness Skin: Negative for any rashes, itching, abrasions, lacerations Psychiatric: Negative for any depression, anxiety, stress, suicidal ideation, homicidal ideation Hematologic: Negative for any excessive bruising, easy bleeding EXAM Physical Exam Narrative Exam Narrative: Vital signs reviewed. HEET: Head normocephalic atraumatic, TMs clear bilaterally. Posterior pharynx is clear, moist mucous membranes. Nares clear bilaterally. Neck: Supple with no lymphadenopathy or tenderness. No signs of meningismus. Cardiac: Regular rate and rhythm no murmurs gallops or rubs, equal peripheral pulses bilaterally. Respiratory: Lungs clear to auscultation bilaterally. No chest tenderness. Abdomen: Soft, nontender, nondistended. No abdominal bruit or pulsatile masses. No hepatosplenomegaly Extremities: No peripheral edema, no signs of gross trauma or deformity. Active full range of motion of all extremities. Neuro: Cranial nerves II through XII intact, no focal neurological deficits. Skin: Clean dry and intact with no rash, purpura, petechiae, vesicles or pustules. Backs/flank: No CVA tenderness, no midline spinal tenderness, no deformity. Psych: Normal mood and affect. No SI, HI or acute psychosis. Const Vital Signs: 02/19/24 14:56 Temperature 97.1 F L Temperature Source Temporal Pulse Rate 94 Respiratory Rate 14 Blood Pressure 98/64 Blood Pressure Mean 75 Pulse Ox 98 Oxygen Delivery Method Room Air [facility] Lab Data Labs: Laboratory Results - last 24 hr 02/19/24 02/19/24 15:20 16:13 WBC 7.4 RBC 4.02 L Hgb 12.1 L Hct 37.2 L MCV 92.5 MCH 30.1 MCHC 32.5 RDW Std Deviation 48.9 H RDW Coeff of Kathryn 14.5 Plt Count 215 MPV 8.6 Immature Gran % (Auto) 0.400 Neut % (Auto) 67.3 Lymph % (Auto) 15.9 L [place] % (Auto) 12.4 H Eos % (Auto) 3.6 Baso % (Auto) 0.4 Absolute Neuts (auto) 5.0 Absolute Lymphs (auto) 1.18 Nucleated RBC % 0 Sodium 140 Potassium 4.3 Chloride 110 H Carbon Dioxide 25.0 Anion Gap 5 BUN 25 H Creatinine 0.98 Est GFR (MDRD) Af Amer 93 Est GFR (MDRD) Non-Af 77 BUN/Creatinine Ratio 25.5 H Glucose 105 Calcium 9.7 Urine Color Brown Urine Clarity Cloudy Urine pH 5.0 Ur Specific [place] 1.025 Urine Protein 100 H Urine Glucose (UA) Normal Urine Ketones Negative Urine Occult Blood 250 H Urine Nitrite Positive H Urine Bilirubin Negative Urine Urobilinogen Normal Ur Leukocyte Esterase 500 H Urine RBC 25-50 SEEN Urine WBC >100 SEEN Ur Squamous Epith Cells 0 SEEN Urine Bacteria 2+ Urine Mucus 0 SEEN Treatment and Re-Evaluation :: Differential diagnosis includes however is not limited to: Hematuria, uncertain etiology, obstructing uropathy, urinary tract infection, cystitis Patient appears to be in no obvious respiratory distress vital signs are stable. Patient presents to the emergency department for dysuria, hematuria that started this morning. Patient will receive some basic laboratories looking for any leukocytosis, anemia as well as any electrolyte abnormality, kidney function. Patient received a urinalysis with micro. Patient's CBC was unremarkable, the blood count 7.4 which is normal limits. Patient's chemistries were unremarkable, normal kidney function. Urinalysis was positive for infection, was positive nitrites, 2+ bacteria greater than 100 white blood cells, 500 leuks, 25-50 red blood cells. This to be sent for culture. Secondary to being no systemic symptoms, I do believe the patient is stable for discharge. He will be placed on Keflex 3 times a day for 1 week. He will return here for any worsening back pain fever chills nausea or vomiting. All questions were answered, instructed to maintain hydration. Stable for discharge. Discharge Plan Triage Chief Complaint: Complaint ED Midlevel Provider: Sam Feldman ED Provider: Shannon Isbell Dx/Rx/DC Orders Clinical Impression: Hematuria, Acute UTI Instructions: Urinary Tract Infections in Men, ED Hematuria Prescriptions: New cephalexin 500 mg capsule 500 mg PO TID 7 Days Qty: 21 0RF No Action finasteride [Proscar] 5 mg tablet 5 mg PO DAILY aspirin [Adult Low Dose Aspirin] 81 mg tablet,delayed release (DR/EC) 81 mg PO DAILY tamsulosin 0.4 mg capsule 0.4 mg PO QHS gabapentin 100 mg capsule 100 mg PO TID lidocaine 5 % Adhesive Patch,Medicated 2 patch topical DAILY Qty: 0 0RF Protocol: *Topical Application Instructions APPLICATION INSTRUCTIONS: Apply to lumbar spine and right and left paraspinal muscles. Patient Comments: pt put new patch on this morning 01/04 multivitamin [Daily Multi-Vitamin] Tablet 1 tab PO DAILY atorvastatin 10 mg tablet 10 mg PO QHS bupropion HCl 150 mg tablet sustained-release 12 hr 150 mg PO BID mirtazapine 45 mg tablet 45 mg PO QHS atenolol 25 mg tablet 12.5 mg PO DAILY acetaminophen 500 mg Tablet 1,000 mg PO Q6H PRN (Reason: PAIN ) nitroglycerin 0.4 mg tablet, sublingual 0.4 mg SL Q5M PRN (Reason: CHEST PAIN ) Qty: 25 3RF Primary Care Provider: Vishal Antonio Referrals: Vishal Antonio MD [Primary Care Provider] - Activity Restrictions/Additional Instructions: You have a urinary tract infection, take antibiotics until finished. Return for any worsening back pain fever chills nausea or vomiting. Print Language: Uzbek Disposition Disposition: Home, Self Care
[2024-02-19 15:39] LABS: Absolute Lymphocyte Count 1.18 X10^3/uL (0.83-4.51); Basophil# 0.03 X10^3/uL; Basophil% 0.4 % (0-1); Eosinophil# 0.27 X10^3/uL; Eosinophils% 3.6 % (0-5); Hematocrit 37.2 % (40-54); Hemoglobin 12.1 g/dL (13.0-16.5); Lymphocyte # 1.18 X10^3/ul (0.83-4.51); Lymphocyte % 15.9 % (19-41); Mean Corp Hgb Conc 32.5 g/dL (32-36); Mean Corpuscular Hgb 30.1 pg (27.0-32.0); Mean Corpuscular Volume 92.5 fL (80-94); Mean Platelet Vol. 8.6 fl (6.2-12.0); Monocyte# 0.92 X10^3/uL; Monocyte% 12.4 % (0-10); NRBC Flagged by Analyzer 0 % (0-5); Neutrophil # 4.99 X10^3/uL (2.7-7.7); Neutrophil % 67.3 % (47-70); Platelet Count 215 K/mm3 (150-450); RBC Distribution Width CV 14.5 % (11.6-14.6); RBC Distribution Width SD 48.9 fl (35.1-43.9); Red Blood Count 4.02 M/mm3 (4.6-6.2); White Blood Count 7.4 K/mm3 (4.4-11.0)
[2024-02-19] MEDS: 0.9% Normal Saline (1000mL) 1,000 ML 999 ML IV (15:52)
[2024-02-19 15:56] LABS: Anion Gap 5 (5-15); BUN 25 mg/dL (7-18); BUN/Creat Ratio 25.5 RATIO (10-20); Calcium,Total 9.7 mg/dL (8.5-10.1); Chloride 110 mmol/L (98-107); Creatinine, Serum 0.98 mg/dL (0.70-1.30); EST Glomerular Filtration Rate 77 mL/min (>60); Est Glom Filt Rate - Afr Amer 93 mL/min (>60); Glucose 105 mg/dL (74-106); Potassium 4.3 mmol/L (3.5-5.1); Sodium Level 140 mmol/L (136-145)
[2024-02-19 16:20] LABS: Mucous, Urine 0 SEEN /hpf (<or=2+); Squamous Epithelial Cells - UA 0 SEEN /hpf (0-5)
[2024-02-19 16:24] LABS: Color, Urine Brown (Yellow); Glucose, Dipstick Normal (Normal); Ketone-Dipstick Negative (Negative); Leukocyte Esterase-Dipstick 500 /ul (Negative); Nitrite-Dipstick Positive (Negative); Occult Blood-Urine 250 /ul (Negative); Protein-Dipstick 100 mg/dl (Negative); Specific Gravity, Urine 1.025 (1.002-1.030); Urine Bilirubin Dipstick Negative (Negative); Urine Clarity Cloudy (Clear); Urine Urobilinogen Normal (Normal)
[2024-02-19 16:30] LABS: White Blood Cells >100 SEEN /hpf (0-5)
[2024-02-19 16:31] LABS: Bacteria 2+ /hpf (None Seen); Red Blood Cells-Urine 25-50 SEEN /hpf (0-5)
[2024-02-19 16:55] VITALS: BP 102/84; PULSE 84; RESP 16; O2SAT 98
[2024-02-19] MEDS: Cephalexin 250 MG Capsule 500 MG PO (17:05)
[2024-02-19 17:11] VITALS: BP 102/84; PULSE 84; RESP 16; TEMP 35.4; O2SAT 98
== END 2024-02-19 17:11 | disposition home or self-care (01) ==
PROVIDERS: Nurse Practitioner; Emergency Provider Emergency Medicine; PCP Family Medicine; Visit Provider Emergency Medicine
DX: R31.9 Hematuria, unspecified (principal); N39.0 Urinary tract infection, site not specified; I25.10 Atherosclerotic heart disease of native coronary artery without angina pectoris; I25.2 Old myocardial infarction; Z86.73 Personal history of transient ischemic attack (TIA), and cerebral infarction without residual deficits
CPT/HCPCS: 80048; 81001; 85025; 87077; 87086; 87088; 87186; 96360; 99283; J7030; A4216

== ENCOUNTER 2024-04-14 12:49 | Inpatient (IN) | payer MEDICARE, BC, SELFPAY ==
[2024-04-14 12:50] VITALS: BP 128/76; PULSE 83; RESP 16; TEMP 36.7; O2SAT 97; BMI 26.0
--- NOTE | 2024-04-14 13:01 | EKG12_ITS ---
Test Reason : Blood Pressure : / mmHG Vent. Rate : 078 BPM Atrial Rate : 078 BPM P-R Int : 230 ms QRS Dur : 094 ms QT Int : 414 ms P-R-T Axes : 077 -62 026 degrees QTc Int : 471 ms Sinus rhythm with sinus arrhythmia with 1st degree A-V block Left axis deviation Incomplete right bundle branch block Abnormal ECG Confirmed by ERIC SU, DON ([id number]), features editor YADI JAY ([id number]) on 04/16/2024 10:24:14 AM Referred By: Confirmed By:DORACS REYES MD
--- NOTE | 2024-04-14 13:02 | CT_ITS ---
STUDY: CT BRAIN WITHOUT CONTRAST REASON FOR EXAM: Male, 84 years old. Head trauma RADIATION DOSAGE (If Supplied By Facility): CTDIvol = ( 47.06 ) mGy, DLP = ( 960.91 ) mGycm TECHNIQUE: Transaxial CT imaging of the brain was performed without administration of intravenous contrast material. Individualized dose optimization techniques were used for this CT. COMPARISON: Comparison is made with prior study dated January 05, 2024. FINDINGS: Normal soft tissue structures. Normal calvarium. There is mild cerebral atrophy with widening of the extra-axial spaces and ventricular dilatation. There are areas of decreased attenuation within the white matter tracts of the supratentorial brain, consistent with microvascular disease changes. Normal basal ganglia and thalami. Normal brainstem. There is mild cerebellar atrophy. There is no intracranial hemorrhage. There are no findings of an acute ischemic infarction. Atherosclerotic calcification of the cavernous portions of the internal carotid arteries bilaterally. Normal visualized paranasal sinuses. CT/Brain/Head without Contrast IMPRESSION: Chronic involutional changes of the brain. Electronically Signed: Kevon Sorto MD at 13:36 EDT ,
--- NOTE | 2024-04-14 13:03 | EDS_ITS ---
HPI HPI - Fall History of Present Illness Chief Complaint: Fall Narrative Narrative: 84-year-old male past medical history of previous rhabdomyolysis, coronary artery disease, depression and anxiety presents via EMS status post fall at home. It was reported by EMS that he has had frequent falls over the last few weeks. Patient states that he got out of her recliner today and was headed towards the mailbox, when he was in the garage, and had another fall. He has an abrasion on his forehead from 2 days ago when he had fallen as well as a contusion on his left shoulder. Today, he states that he skinned both of his knees. He usually waits until someone comes over to help him up. It is unknown how long he has been on the ground. He states that he had to call his daughter to tell him that he had gotten out of his recliner, and had fallen in the garag e. He had loss of consciousness. No prodromal symptoms such as chest pain or shortness of breath. [facility] Medical History Acute UTI Syncope Near syncope Alcohol abuse GI bleed Non-smoker Stroke/cerebrovascular accident Vision loss of right eye Vision loss of left eye Hearing loss, left Hearing loss, right Chronic pain Kidney stones Kidney disease Myocardial infarct Chest pain Acute cerebrovascular accident (CVA) CVA (cerebral vascular accident) Vitamin D deficiency Chronic pain Cognitive impairment Frequent falls Smoker Fall History of echocardiogram Wears hearing aid Wears glasses Wears dentures Cancer Depression Anxiety Alcohol use Gait instability Ambulates with cane Arthritis High cholesterol Easy bruising Back pain Chewing tobacco nicotine dependence History of pain when walking History of stress test Cardiology follow-up encounter History of heart attack Colon cancer 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 Atherosclerosis of coronary artery of [place] heart without angina pectoris Essential (primary) hypertension 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 BPH (benign prostatic hyperplasia) HLD (hyperlipidemia) Home Medications ?Medication ?Instructions ?Recorded ?Last Taken ?Type finasteride 5 mg tablet (Proscar) 5 mg PO DAILY PROSTATE 01/27/18 01/05/24 History aspirin 81 mg tablet,delayed 81 mg PO DAILY HEART HEALTH 07/30/18 01/04/24 Hist ory release (Adult Low Dose Aspirin) tamsulosin 0.4 mg capsule 0.4 mg PO QHS PROSTATE 10/21/21 01/04/24 History nitroglycerin 0.4 mg sublingual 0.4 mg sublingual Q5M PRN CHEST 05/12/23 Unknown Rx tablet PAIN #25 tabs atorvastatin 10 mg tablet 10 mg PO QHS CHOLESTEROL 10/31/23 01/04/24 History bupropion HCl 150 mg tablet,12 hr 150 mg PO BID DEPRESSION 10/31/23 01/05/24 History sustained-release mirtazapine 45 mg tablet 45 mg PO QHS DEPRESSION 10/31/23 01/04/24 History gabapentin 100 mg capsule 100 mg PO TID NEUROPATHY 11/14/23 01/05/24 History lidocaine 5 % topical patch 2 patch topical DAILY PAIN #0 ea 11/17/23 01/05/24 Rx acetaminophen 500 mg tablet 1,000 mg PO Q6H PRN PAIN 12/25/23 01/05/24 History atenolol 25 mg tablet 12.5 mg PO DAILY BLOOD PRESSURE 12/25/23 12/25/23 History multivitamin (Daily Multi-Vitamin 1 tab PO DAILY 01/05/24 01/05/24 History tablet) cephalexin 500 mg capsule 500 mg PO TID 7 days #21 caps 02/19/24 Unknown Rx Allergy/AdvReac Type Severity Reaction Status Date / Time No Known Allergies Allergy Verified 04/14/24 12:50 Family History Father Cancer skin cancer Mother Myocardial infarction Diabetes Other Fall Surgical History History of angioplasty History of colostomy History of left heart catheterization (02/24/02) H/O percutaneous transluminal coronary angioplasty (11/13/93) History of cystoscopy Hx of appendectomy History of inguinal hernia repair, bilateral Status post trigger finger release History of rotator cuff surgery Hx of colectomy Social History household members: none Smoking Status: Never smoker alcohol intake: current alcohol intake frequency: a few times a month Alcohol type: hard liquor substance use type: does not use caffeine: Yes Type: coffee Number of servings: 1 ROS ROS ED ROS Narrative Constitutional: No fever, no chills. HEENT: No sore throat. No neck pain. No loss of vision. No rhinorrhea. Cardiovascular: No chest pain. No palpitations. No pedal edema. Respiratory: No cough, no shortness of breath. Abdominal: No abdominal pain. No nausea. No vomiting. Genitourinary: No dysuria. No hematuria. Musculoskeletal: No myalgias. Positive for left knee pain, positive right hip pain/arthralgias. Neurologic: No headaches. No dizziness. No lightheadedness. Skin: No rash. No change in color. Positive abrasions to bilateral knees. Abrasion to forehead from 2 days ago. Positive bruising to left shoulder from previous fall as well. Psychiatric: No depression. No anxiety. EXAM Physical Exam Narrative Exam Narrative: GCS 15. ABCs intact. Afebrile. Vital signs noted. Regular rate and rhythm. Lungs clear to auscultation bilaterally. Abdomen soft nontender with normoactive bowel sounds. Awake, alert, oriented x 3. Positive abrasion to the forehead, no active bleeding. Neck soft and supple without meningismus. No vertebral point tenderness or bony step-off. Positive ecchymosis to left shoulder area. Full range of motion bilateral shoulders. Palpable pulses, radial, bilaterally. Pelvis stable. Flexion extension bilateral hips intact. Pain in groin with movement of right hip. Positive abrasions bilateral knees, no active bleeding. Palpable dorsalis pedis pulses bilaterally. Const Vital Signs: 04/14/24 12:50 04/14/24 12:55 Temperature 98.0 F Temperature Source Oral Pulse Rate 83 Respiratory Rate 16 Respiratory Effort Normal Respiratory Depth Normal Respiratory Pattern Normal Blood Pressure 128/76 H Blood Pressure Mean 93 Pulse Ox 97 Oxygen Delivery Method Room Air Room Air Oxygen Flow Rate (L/min) 97 MDM MDM MDM Narrative Medical decision making narrative: Given his frequent falls, concern is for debility versus dehydration. X-rays will be obtained of the pelvis and right hip to rule out hip fracture versus pubic ramus fracture versus hip contusion. He does have abrasions on his bilateral knees but given his physical exam more likely contusions than tibial toe fractures. Although his injury to his head was remote by 2 days, CT of the brain will be obtained to look for subdural hematoma or any active hemorrhage. As the patient lives at home alone, concern is that given his frequent falls that he would need PT/OT evaluation for possible placement in custodial facility. He states that he has not been in a custodial facility for a few months, where EMS reported to the RN that he got out of her [facility]pc 1 week ago. Further history was provided by his daughter who is currently at the bedside. She states that his frequent falls have been since Friday, in the last 3 days. Additionally, she states that he had been in a custodial facility back in December. He was discharged with a home health aide who he had removed, and patient has not been taking his medications as he had been previously directed. I reviewed his laboratory work and he has an elevated white count of 21.6, much higher than it was before. This could be reactionary from his frequent falls, poor from infection. His daughter states that few months ago he had a urinary tract infection, patient denies any dysuria currently. Hemoglobin is stable 11.2 with hematocrit 34.8, platelet count normal at 240. CT of the brain was obtained as he has a large abrasion on his forehead. Reviewed the radiology report shows no skull fracture, no evidence of an intracranial hemorrhage, or current acute infarct. X-rays of the right hip were obtained and interpreted by myself independently as no evidence of fracture or dislocation. There are healed pubic ramus fractures. I reviewed the radiology report which confirms my independent interpretation. Additionally, x-rays of the bilateral knees interpreted by myself independently shows no evidence of acute fracture, but degenerative arthrosis. I reviewed the radiology report for this as well which confirms my independent interpretation. As he had an elevated white count of 21, I ordered a blood culture as there is a national shortage of blood culture tubes, only 1 can be ordered per patient. Additionally, I added on a lactic acid. Regardless of what these show, I do feel that he will most likely require at least observation as he is not doing well at home because he may need rehab and another custodial facility. I was able to review his CMP and he has low sodium of 134, BUN is elevated at 38 with creatinine 1.83, above his baseline and consistent with acute kidney injury. High-sensitivity troponin is 75. CK is elevated at 2945. He was bolused another liter of normal saline. Given his frequent falls, acute kidney injury, and borderline rhabdomyolysis, I do feel that he requires admission. While his urinalysis is still pending, lactic acid did return at 2.0. This may be more secondary to dehydration and his acute kidney injury, but he was ordered another liter of normal saline intravenously. Antibiotics will be deferred to the hospitalist. In discussion with Dr. Hough, hospitalist, she would like a urine for drugs of abuse and a chest x-ray added. I discussed admission with her, as well as with the patient and his daughter who are agreeable to the plan. Disposition is admit in stable condition. History & Record Review Discussion w/independent historian: Patient and Family (Daughter) Additional record(s) reviewed:: Prior ED visit and Prior labs Lab Data Attestation: I reviewed the patient's lab results. Labs: Laboratory Results - last 24 hr 04/14/24 04/14/24 13:00 13:45 WBC 21.6 H RBC 3.76 L Hgb 11.2 L Hct 34.8 L MCV 92.6 MCH 29.8 MCHC 32.2 RDW Std Deviation 51.0 H RDW Coeff of [place]ryn 14.8 H Plt Count 240 MPV 8.9 Immature Gran % (Auto) 0.800 Neut % (Auto) 89.2 H Lymph % (Auto) 3.7 L [place] % (Auto) 5.6 Eos % (Auto) 0.0 Baso % (Auto) 0.7 Absolute Neuts (auto) 19.3 H Absolute Lymphs (auto) 0.80 L Nucleated RBC % 0 Toxic Granulation 1+ Sodium 134 L Potassium 4.1 Chloride 104 Carbon Dioxide 21.0 Anion Gap 9 BUN 38 H Creatinine 1.83 H Estim Creat Clear Calc 28.55 Est GFR (MDRD) Af Amer 46 L Est GFR (MDRD) Non-Af 38 L BUN/Creatinine Ratio 20.8 H Glucose 116 H Lactic Acid 2.0 Calcium 8.8 Total Bilirubin 0.80 AST 97 H ALT 53 Alkaline Phosphatase 168 H Total Creatine Kinase 2945 H Troponin I High Sens 75 Total Protein 7.0 Albumin 2.6 L Globulin 4.4 H Albumin/Globulin Ratio 0.6 L Radiography Diagnostic Testing: Clinical Impression(s) from Imaging Studies Brain CT 04/14/24 13:02 IMPRESSION: Chronic involutional changes of the brain. Electronically Signed: Kevon Sorto MD at 13:36 EDT , Hip/Pelvis X-Ray 04/14/24 13:30 IMPRESSION: Degenerative changes. Healed right superior and inferior pubic rami fractures. No acute fracture is seen. Electronically Signed: Kevon Sorto MD at 13:51 EDT , Knee X-Ray 04/14/24 13:30 IMPRESSION: Degenerative arthrosis. Electronically Signed: Kevon Sorto MD at 13:54 EDT , Knee X-Ray 04/14/24 13:30 IMPRESSION: Degenerative arthrosis. Electronically Signed: Kevon Sorto MD at 13:54 EDT , Discharge Plan Dx/Rx/DC Orders Clinical Impression: Frequent falls, Abrasion of knee, bilateral, Leukocytosis, Elevated CK, Acute kidney injury Disposition Disposition: Acute Care [facility]
[2024-04-14 13:13] LABS: Absolute Neutrophil Count 19.3 X10^3/uL (2.0-7.7); Basophil# 0.16 X10^3/uL; Basophil% 0.7 % (0-1); Hematocrit 34.8 % (40-54); Hemoglobin 11.2 g/dL (13.0-16.5); Lymphocyte % 3.7 % (19-41); Mean Corp Hgb Conc 32.2 g/dL (32-36); Mean Corpuscular Hgb 29.8 pg (27.0-32.0); Mean Corpuscular Volume 92.6 fL (80-94); Mean Platelet Vol. 8.9 fl (6.2-12.0); Monocyte# 1.21 X10^3/uL; Monocyte% 5.6 % (0-10); NRBC Flagged by Analyzer 0 % (0-5); Neutrophil % 89.2 % (47-70); POSITIVE MORPHOLOGY YES; Platelet Count 240 K/mm3 (150-450); RBC Distribution Width CV 14.8 % (11.6-14.6); Red Blood Count 3.76 M/mm3 (4.6-6.2); White Blood Count 21.6 K/mm3 (4.4-11.0)
[2024-04-14 13:14] LABS: Differential Indicated SCAN CRITERIA MET
[2024-04-14] MEDS: 0.9% Normal Saline (1000mL) 1,000 ML 1000 ML IV (13:17)
--- NOTE | 2024-04-14 13:30 | RAD_ITS ---
STUDY: X-RAY - RIGHT KNEE REASON FOR EXAM: Male, 84 years old. Trauma TECHNIQUE: 2 view(s) of the knee. COMPARISON: None. FINDINGS: Normal visualized distal femur. Normal visualized proximal tibia and fibula. Normal proximal tibiofibular articulation. There is severe degenerative arthrosis of the medial femorotibial compartment with severe joint space narrowing. Normal lateral femorotibial compartment. There is moderate degenerative arthrosis of the patellofemoral articulation. The soft tissue structures are unremarkable. RAD/Knee 1 or 2 Views IMPRESSION: Degenerative arthrosis. Electronically Signed: Kevon Sorto MD at 13:54 EDT ,
--- NOTE | 2024-04-14 13:30 | RAD_ITS ---
STUDY: X-RAY - LEFT KNEE REASON FOR EXAM: Male, 84 years old. Trauma TECHNIQUE: 2 view(s) of the knee. COMPARISON: None. FINDINGS: Normal visualized distal femur. Normal visualized proximal tibia and fibula. Normal proximal tibiofibular articulation. There is severe degenerative arthrosis of the medial femorotibial compartment with severe joint space narrowing. Normal lateral femorotibial compartment. There is moderate degenerative arthrosis of the patellofemoral articulation. Calcification of the medial collateral ligament. RAD/Knee 1 or 2 Views IMPRESSION: Degenerative arthrosis. Electronically Signed: Kevon Sorto MD at 13:54 EDT ,
--- NOTE | 2024-04-14 13:30 | RAD_ITS ---
STUDY: X-RAY - PELVIS AND RIGHT HIP REASON FOR EXAM: Male, 84 years old. Multiple falls. TECHNIQUE: 3 views of the pelvis and hip. COMPARISON: Comparison is made with prior study dated January 05, 2024. FINDINGS: Gas is seen within the colon. Prior right inguinal hernia repair with mesh. There is narrowing with cortical sclerosis and osteophyte formation of the sacroiliac joint consistent with degenerative osteoarthritic changes. Healed right superior and inferior pubic rami fractures. Normal pubic symphysis. Normal bilateral ischial tuberosities. Normal visualized femoral head. Normal acetabulum. There is moderate articular joint space narrowing of the hip. Degenerative changes of the lower lumbar spine. RAD/HIP, UNI W/ Pelvis 2-3 Views IMPRESSION: Degenerative changes. Healed right superior and inferior pubic rami fractures. No acute fracture is seen. Electronically Signed: Kevon Sorto MD at 13:51 EDT ,
[2024-04-14 13:35] LABS: Toxic Granulation 1+
[2024-04-14 14:07] LABS: ALB/GLOB Ratio 0.6 RATIO (0.9-2.4); AST(SGOT) 97 U/L (15-37); Alanine Aminotransfer ALT/SGPT 53 U/L (16-61); Albumin, Serum 2.6 g/dL (3.2-5.0); Alkaline Phosphatase 168 U/L (45-117); Anion Gap 9 (5-15); BUN 38 mg/dL (7-18); BUN/Creat Ratio 20.8 RATIO (10-20); CPK Total, Creatine Kinase 2945 U/L (39-308); Calcium,Total 8.8 mg/dL (8.5-10.1); Chloride 104 mmol/L (98-107); Creatinine, Serum 1.83 mg/dL (0.70-1.30); EST Glomerular Filtration Rate 38 mL/min (>60); Est Glom Filt Rate - Afr Amer 46 mL/min (>60); Estimated Creatinine Clearance 28.55 ml/min; Globulin 4.4 g/dL (2.2-4.2); Glucose 116 mg/dL (74-106); Potassium 4.1 mmol/L (3.5-5.1); Sodium Level 134 mmol/L (136-145); Troponin-I HS 75 pg/mL (3.0-78.0)
[2024-04-14 14:49] VITALS: BP 115/89; PULSE 72; RESP 16; O2SAT 98
--- NOTE | 2024-04-14 14:49 | NURSING ---
MED SURG NAJERA ACUTE KIDNEY INJURY, FREQUENT FALLS, LEUKOCYTOSIS
[2024-04-14] MEDS: 0.9% Normal Saline (1000mL) 1,000 ML 999 ML IV (14:51)
[2024-04-14 14:59] LABS: Mucous, Urine 0 SEEN /hpf (<or=2+); Red Blood Cells-Urine 0 SEEN /hpf (0-5); Squamous Epithelial Cells - UA 0 SEEN /hpf (0-5)
[2024-04-14 15:17] LABS: Color, Urine Yellow (Yellow); Glucose, Dipstick Normal (Normal); Ketone-Dipstick 5 mg/dl (Negative); Leukocyte Esterase-Dipstick 500 /ul (Negative); Nitrite-Dipstick Positive (Negative); Occult Blood-Urine 250 /ul (Negative); Protein-Dipstick 30 mg/dl (Negative); Urine Bilirubin Dipstick Negative (Negative); Urine Clarity Sl. Cloudy (Clear); Urine Urobilinogen Normal (Normal)
--- NOTE | 2024-04-14 15:20 | RAD_ITS ---
STUDY: X-RAY CHEST REASON FOR EXAM: Male, 84 years old. cad TECHNIQUE: AP portable COMPARISON: January 05, 2024 FINDINGS: Lungs are mildly hyperinflated but clear. There is no demonstrated pleural abnormality. Normal size heart. Normal mediastinum and maria del rsoario. Normal visualized pulmonary arteries. Mildly calcified aortic arch and descending thoracic aorta. Mediport catheter seen on the right with tip in distal superior vena cava Dorsal spine and shoulders demonstrate degenerative changes. Normal visualized ribs, and clavicles.. There is no demonstrated abnormality of the visualized soft tissue structures of the upper abdomen. No significant change since prior exam RAD/Chest 1 View (Portable) IMPRESSION: No acute cardiopulmonary pathology Electronically Signed: Vishal Rojas MD at 16:23 EDT ,
[2024-04-14 15:28] LABS: Bacteria 2+ /hpf (None Seen); White Blood Cells 25-50 SEEN /hpf (0-5)
[2024-04-14 15:29] LABS: Amphetamine Urine VISTA NEGATIVE (<1000 ng/mL); Barbiturate Urine VISTA NEGATIVE (< 200 ng/mL); Benzodiazepine Urine VISTA NEGATIVE (< 200 ng/mL); Cocaine Urine VISTA NEGATIVE (< 300 ng/mL); Ecstacy Urine VISTA POSITIVE (< 500 ng/mL); Methadone Urine VISTA NEGATIVE (< 300 ng/mL); PCP Urine VISTA NEGATIVE (< 25 ng/mL); THC Urine VISTA NEGATIVE (< 50 ng/mL); Vista UDS pH Range 5
--- NOTE | 2024-04-14 15:34 | HP.PCM.HOS_ITS ---
HPI - General General Date of Admission: 04/14/24 Date of Service: 04/14/24 Chief Complaint: Frequent falls HPI Narrative HOWIE MANZO, is a 84-year-old male history of coronary artery disease, previous rhabdo, colon cancer with resection and colostomy bag, depression, BPH, hypertension who presented to [facility] ED 04/14/2024 with frequent falls. Got out of his recliner earlier today had another fall. He usually waits for someone to come help him get up and is unsure how long he was on the ground today. Was in a long term facility until December and was discharged home with a home health aide however he fired the home health aide and therefore has been living alone. Has primarily been falling over the past 3 days. In ED found to have WBC 21, CK 2945, and TORRIE with creatitine 1.83. Patient with lozano x-rays with no acute fractures. Given his frequent falls, TORRIE, elevated white count and CK hospitalist contacted for admission. Patient evaluated at bedside with daughter present it is reported that he has had multiple falls over the past 1 to 2 days and was not acting like himself prompting ED visit. Patient currently has some aching in his knees where he fell and scraped thumb and chronic right hip pain with no other acute pain or muscular complaints. Denies any aching in his muscles. Does endorse multiple falls and feeling weak all over with the weakness proceeding the following, also has been having some difficulty with urination. No chest pain or shortness of breath at rest but has had some shortness of breath on exertion over the past 1 month without cough, no fevers or chills, has colostomy and reports no changes with this, no abdominal pain. Of note patient drinks 2 12 ounce 4 and half percent beers daily, used to drink liquor but has not drank this in months denies any DTs or withdrawal seizures in the past. No tobacco use no other substance use reported. [facility] Medical History Acute UTI Syncope Near syncope Alcohol abuse GI bleed Non-smoker Stroke/cerebrovascular accident Vision loss of right eye Vision loss of left eye Hearing loss, left Hearing loss, right Chronic pain Kidney stones Kidney disease Myocardial infarct Chest pain Acute cerebrovascular accident (CVA) CVA (cerebral vascular accident) Vitamin D deficiency Chronic pain Cognitive impairment Frequent falls Smoker Fall History of echocardiogram Wears hearing aid Wears glasses Wears dentures Cancer Depression Anxiety Alcohol use Gait instability Ambulates with cane Arthritis High cholesterol Easy bruising Back pain Chewing tobacco nicotine dependence History of pain when walking History of stress test Cardiology follow-up encounter History of heart attack Colon cancer 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 Atherosclerosis of coronary artery of [place] heart without angina pectoris Essential (primary) hypertension 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 BPH (benign prostatic hyperplasia) HLD (hyperlipidemia) Home Medications ?Medication ?Instructions ?Recorded ?Last Taken ?Type finasteride 5 mg tablet (Proscar) 5 mg PO DAILY PROSTATE 01/27/18 01/05/24 History aspirin 81 mg tablet,delayed 81 mg PO DAILY HEART HEALTH 07/30/18 01/04/24 History release (Adult Low Dose Aspirin) tamsulosin 0.4 mg capsule 0.4 mg PO QHS PROSTATE 10/21/21 01/04/24 History nitroglycerin 0.4 mg sublingual 0.4 mg sublingual Q5M PRN CHEST 05/12/23 Unknown Rx tablet PAIN #25 tabs atorvastatin 10 mg tablet 10 mg PO QHS CHOLESTEROL 10/31/23 01/04/24 History bupropion HCl 150 mg tablet,12 hr 150 mg PO BID DEPRESSION 10/31/23 01/05/24 History sustained-release mirtazapine 45 mg tablet 45 mg PO QHS DEPRESSION 10/31/23 01/04/24 History gabapentin 100 mg capsule 100 mg PO TID NEUROPATHY 11/14/23 01/05/24 History lidocaine 5 % topical patch 2 patch topical DAILY PAIN #0 ea 11/17/23 01/05/24 Rx multivitamin (Daily Multi-Vitamin 1 tab PO DAILY 01/05/24 01/05/24 History tablet) Allergy/AdvReac Type Severity Reaction Status Date / Time No Known Allergies Allergy Verified 04/14/24 12:50 Family History Father Cancer skin cancer Mother Myocardial infarction Diabetes Other Fall Surgical History History of angioplasty History of colostomy History of left heart catheterization (02/24/02) H/O percutaneous transluminal coronary angioplasty (03/01/94) History of cystoscopy Hx of appendectomy History of inguinal hernia repair, bilateral Status post trigger finger release History of rotator cuff surgery Hx of colectomy Social History household members: none Smoking Status: Never smoker alcohol intake: current alcohol intake frequency: a few times a month Alcohol type: hard liquor substance use type: does not use caffeine: Yes Type: coffee Number of servings: 1 ROS ROS Narrative General: Denies fever/chills HENT: Denies headache, denies stuffy nose, denies sore throat EYES: Denies changes in vision Resp: Denies cough, some shortness of breath on exertion chronic Cardiac: Denies chest pain GI: Denies abdominal pain, denies changes in bowel, has ostomy with no changes, denies nausea/vomiting : Has had some difficulty with urination Extremity: Denies swelling MSK: General weakness, no muscular tenderness Neuro: Denies any numbness/tingling Heme: Denies any bleeding or bruising Skin: Denies rashes Psychiatric: No complaints voiced Vital Signs Vital Signs Vital Signs: 04/14/24 12:50 04/14/24 12:55 04/14/24 14:49 Temperature 98.0 F Temperature Source Oral Pulse Rate 83 72 Respiratory Rate 16 16 Respiratory Effort Normal Respiratory Depth Normal Respiratory Pattern Normal Blood Pressure 128/76 H 115/89 H Blood Pressure Mean 93 97 Pulse Ox 97 98 Oxygen Delivery Method Room Air Room Air Room Air Oxygen Flow Rate (L/min) 97 Weight Weight: 77.7 kg Body Mass Index (BMI) 26.0 Physical Exam Narrative General: Alert, oriented, no apparent distress HEENT: Scrapes appreciated Eyes: Anicteric, normal conjunctiva, extraocular movements grossly intact Neck: Supple Respiratory: Clear to auscultation bilaterally, normal respiratory effort Cardiovascular: Regular rate GI: Soft, nontender, nondistended, ostomy noted, no blood in ostomy Extremities: No edema, no tenderness on muscle palpation Musculoskeletal: Moving all extremities Neuro: No overt focal neurological deficits Skin: No rashes appreciated, very scrapes noted from falls Psych: Cooperative Results Lab / Micro Data 04/14/24 13:00 04/14/24 13:00 Labs: Laboratory Results - last 24 hr 04/14/24 13:00: WBC 21.6 H, RBC 3.76 L, Hgb 11.2 L, Hct 34.8 L, MCV 92.6, MCH 29.8, MCHC 32.2, RDW Std Deviation 51.0 H, RDW Coeff of Kathryn 14.8 H, Plt Count 240, MPV 8.9, Immature Gran % (Auto) 0.800, Neut % (Auto) 89.2 H, Lymph % (Auto) 3.7 L, [place] % (Auto) 5.6, Eos % (Auto) 0.0, Baso % (Auto) 0.7, Absolute Neuts (auto) 19.3 H, Absolute Lymphs (auto) 0.80 L, Nucleated RBC % 0, Toxic Granulation 1+, Sodium 134 L, Potassium 4.1, Chloride 104, Carbon Dioxide 21.0, Anion Gap 9, BUN 38 H, Creatinine 1.83 H, Estim Creat Clear Calc 28.55, Est GFR (MDRD) Af Amer 46 L, Est GFR (MDRD) Non-Af 38 L, BUN/Creatinine Ratio 20.8 H, G lucose 116 H, Calcium 8.8, Total Bilirubin 0.80, AST 97 H, ALT 53, Alkaline Phosphatase 168 H, Total Creatine Kinase 2945 H, Troponin I High Sens 75, Total Protein 7.0, Albumin 2.6 L, Globulin 4.4 H, Albumin/Globulin Ratio 0.6 L 04/14/24 13:45: Lactic Acid 2.0 04/14/24 14:53: Urine Color Yellow, Urine Clarity Sl. Cloudy, Urine pH 6.0, Ur Specific [place] 1.020, Urine Protein 30 H, Urine Glucose (UA) Normal, Urine Ketones 5 H, Urine Occult Blood 250 H, Urine Nitrite Positive H, Urine Bilirubin Negative, Urine Urobilinogen Normal, Ur Leukocyte Esterase 500 H, Urine RBC 0 SEEN, Urine WBC 25-50 SEEN, Ur Squamous Epith Cells 0 SEEN, Urine Bacteria 2+, Urine Mucus 0 SEEN, Urine Opiates Screen NEGATIVE, Urine Methadone Screen NEGATIVE, Ur Barbiturates Screen NEGATIVE, Ur Phencyclidine Scrn NEGATIVE, Ur Amphetamines Screen NEGATIVE, MDMA (Ecstasy) Screen POSITIVE H, U Benzodiazepines Scrn NEGATIVE, Urine Cocaine Screen NEGATIVE, U Cannabinoids Screen NEGATIVE, Ur Drug Screen Comment Imaging Radiology Impression Brain CT 04/14/24 13:02 IMPRESSION: Chronic involutional changes of the brain. Electronically Signed: Kevon Sorto MD at 13:36 EDT , Hip/Pelvis X-Ray 04/14/24 13:30 IMPRESSION: Degenerative changes. Healed right superior and inferior pubic rami fractures. No acute fracture is seen. Electronically Signed: Kevon Sorto MD at 13:51 EDT , Knee X-Ray 04/14/24 13:30 IMPRESSION: Degenerative arthrosis. Electronically Signed: Kevon Sorto MD at 13:54 EDT , Knee X-Ray 04/14/24 13:30 IMPRESSION: Degenerative arthrosis. Electronically Signed: Kevon Sorto MD at 13:54 EDT , Assessment & Plan Assessment/Plan (1) Acute kidney injury: (2) Depression: (3) Elevated CK: (4) Essential (primary) hypertension: (5) Frequent falls: (6) H/O percutaneous transluminal coronary angioplasty: (7) History of colon cancer: (8) BPH (benign prostatic hyperplasia): (9) Abnormal finding on urinalysis: PLAN: Plan # Weakness and frequent falls -May be infectious, UA is suggestive of UTI, will get culture and start antibiotics -FURNACE COMBUSTION TESTER swab ordered as well -UDS positive for MDMA, unclear significance -Suspect patient is dehydrated given his TORRIE, continue IV fluids -Fall precautions -PT/OT -Hold gabpentin w/ weakness and given TORRIE # Leukocytosis, suspect UTI -Reactive versus underlying infection though given UA now resulted suspect UTI -Urine culture -Patient has history of ESBL with previous sensitivities reviewed so will start on Zosyn -FURNACE COMBUSTION TESTER swab -IVF -Chest x-ray done in ED before UA resulted, read pending no most likely culprit UTI -Blood culture obtained in ED # TORRIE -Creatinine 1.83 up from 0.96 in February -IV fluids -Avoid nephrotoxic agents # Elevated CK -Likely due to falls and prolonged time on the ground, still fairly low but does have UA with occult blood but no red blood cells -Will recheck CK and labs this evening to assess progress -Continue IV fluids -atorvastatin held #Alcohol use -Previously drank liquor now drinks 2 regular sized 4% beers daily denies any history of withdrawal seizures or DTs -Will start CIWA, do not think we need to schedule phenobarb taper at this time, ativan prn #Chronic BPH with obstruction -Continue home medications -will bladder scan to assess for retention given report of difficulty with urination # Depression -Does not appear patient had been feeling these so they were not continued, patient reported compliance with medication however his daughter reported he has not been taking them routinely, may need to reinitiate and titrate on outpatient basis # Question medication compliance -Encourage compliance #Hx colon cancer -s/p colostomy -Pt f/w Dr. Greenberg #DVT ppx: Heparin subcu Jeanette Hough MD Time spent in the patient's overall evaluation,decision-making process, review of diagnostic data, adjustment of management, discussion with other providers, nursing nursing and ancillary staff involved in patient's care documentation, 62 Minutes Charges/Coding Visit Charges Inpatient E&M: 13196 Init Hosp L2
[2024-04-14 16:22] VITALS: BMI 22.6
[2024-04-14 16:29] VITALS: BP 117/69; PULSE 71; RESP 18; TEMP 36.3; O2SAT 100
[2024-04-14] MEDS: 0.9% Saline Lock 10 ML Syringe IV (16:59)
[2024-04-14] MEDS: 0.9% Normal Saline (1000mL) 1,000 ML 75 ML IV (17:00)
[2024-04-14] MEDS: Ensure Plus High Protein 120 ML LIQUID PO ×2 (17:00→23:39)
--- NOTE | 2024-04-14 17:04 | NURSING ---
Respirstory came and got Respiratory Panel and Covid Rapid.
[2024-04-14 17:48] LABS: Reflex Lactate? Y
[2024-04-14] MEDS: Piperacil/Tazobactam 4.5 GM in 0.9% Normal Saline (100mL MB+) 100 ML IV (18:13)
[2024-04-14 19:13] LABS: Lactic Acid 1.8 mmol/L (0.4-1.9)
[2024-04-14 19:57] LABS: ALB/GLOB Ratio 0.5 RATIO (0.9-2.4); AST(SGOT) 125 U/L (15-37); Alanine Aminotransfer ALT/SGPT 56 U/L (16-61); Albumin, Serum 2.3 g/dL (3.2-5.0); Alkaline Phosphatase 281 U/L (45-117); Anion Gap 9 (5-15); BUN 38 mg/dL (7-18); BUN/Creat Ratio 23.6 RATIO (10-20); CPK Total, Creatine Kinase 2932 U/L (39-308); Calcium,Total 8.7 mg/dL (8.5-10.1); Chloride 109 mmol/L (98-107); Creatinine, Serum 1.61 mg/dL (0.70-1.30); EST Glomerular Filtration Rate 44 mL/min (>60); Est Glom Filt Rate - Afr Amer 53 mL/min (>60); Estimated Creatinine Clearance 32.05 ml/min; Globulin 4.5 g/dL (2.2-4.2); Glucose 108 mg/dL (74-106); Magnesium 2.6 mg/dL (1.6-2.6); Potassium 4.5 mmol/L (3.5-5.1); Protein, Total 6.8 g/dL (6.4-8.2); Sodium Level 137 mmol/L (136-145)
[2024-04-14 20:36] VITALS: BP 109/64; PULSE 81; RESP 15; TEMP 36.8; O2SAT 99
[2024-04-14 21:19] VITALS: BP 109/64; PULSE 81; RESP 15; TEMP 36.8; O2SAT 99
[2024-04-14] MEDS: Tamsulosin HCl 0.4 MG Capsule PO (21:21)
[2024-04-14] MEDS: Heparin Injection (Vial) 5,000 UNIT/ML VIAL 5000 UNIT SC (21:21)
--- NOTE | 2024-04-14 23:21 | NURSING ---
RESPIRATORY PANEL AND COVID RESULTS NOTED NEGATIVE. PT TAKEN OUT OF COVID PRECAUTIONS
[2024-04-14] MEDS: Piperacil/Tazobactam 3.375 GM in 0.9% Normal Saline (50mL MB+) 50 ML IV (23:38)
[2024-04-15 04:00] VITALS: BP 102/70; BP 110/57; PULSE 80; PULSE 85; RESP 15; TEMP 36.6; O2SAT 97; O2SAT 98
[2024-04-15] MEDS: Piperacil/Tazobactam 3.375 GM in 0.9% Normal Saline (50mL MB+) 50 ML IV ×3 (06:13→21:48)
[2024-04-15] MEDS: 0.9% Normal Saline (1000mL) 1,000 ML 75 ML IV ×2 (06:13→23:02)
[2024-04-15 07:35] LABS: Absolute Lymphocyte Count 0.49 X10^3/uL (0.83-4.51); Absolute Neutrophil Count 14.1 X10^3/uL (2.0-7.7); Basophil# 0.04 X10^3/uL; Basophil% 0.3 % (0-1); Eosinophil# 0.02 X10^3/uL; Eosinophils% 0.1 % (0-5); Hematocrit 31.9 % (40-54); Hemoglobin 10.3 g/dL (13.0-16.5); Lymphocyte # 0.49 X10^3/ul (0.83-4.51); Lymphocyte % 3.1 % (19-41); Mean Corp Hgb Conc 32.3 g/dL (32-36); Mean Corpuscular Hgb 29.7 pg (27.0-32.0); Mean Corpuscular Volume 91.9 fL (80-94); Mean Platelet Vol. 9.1 fl (6.2-12.0); Monocyte# 1.04 X10^3/uL; Monocyte% 6.6 % (0-10); NRBC Flagged by Analyzer 0 % (0-5); Neutrophil # 14.11 X10^3/uL (2.7-7.7); Neutrophil % 88.9 % (47-70); POSITIVE DIFFERENTIAL YES; Platelet Count 211 K/mm3 (150-450); RBC Distribution Width CV 15.2 % (11.6-14.6); RBC Distribution Width SD 51.2 fl (35.1-43.9); Red Blood Count 3.47 M/mm3 (4.6-6.2); White Blood Count 15.9 K/mm3 (4.4-11.0)
[2024-04-15 08:17] VITALS: BP 100/42; PULSE 80; RESP 20; TEMP 37.1; O2SAT 95
[2024-04-15 08:24] LABS: ALB/GLOB Ratio 0.5 RATIO (0.9-2.4); AST(SGOT) 80 U/L (15-37); Alanine Aminotransfer ALT/SGPT 59 U/L (16-61); Albumin, Serum 2.1 g/dL (3.2-5.0); Alkaline Phosphatase 155 U/L (45-117); Anion Gap 7 (5-15); BUN 34 mg/dL (7-18); Calcium,Total 8.3 mg/dL (8.5-10.1); Chloride 112 mmol/L (98-107); Creatinine, Serum 1.31 mg/dL (0.70-1.30); EST Glomerular Filtration Rate 55 mL/min (>60); Est Glom Filt Rate - Afr Amer 67 mL/min (>60); Estimated Creatinine Clearance 39.38 ml/min; Glucose 120 mg/dL (74-106); Potassium 3.6 mmol/L (3.5-5.1); Protein, Total 6.1 g/dL (6.4-8.2); Sodium Level 140 mmol/L (136-145)
[2024-04-15] MEDS: Aspirin E.C. 81 MG Tablet PO (08:25)
--- NOTE | 2024-04-15 08:40 | PN.HOSP_ITS ---
Reason for Visit Reason for Visit: Diagnoses Depression, unspecified (04/14/24) Essential (primary) hypertension (04/14/24) Acute kidney failure, unspecified (04/14/24) Benign prostatic hyperplasia without lower urinary tract symptoms (04/14/24) Repeated falls (04/14/24) Abnormal levels of other serum enzymes (04/14/24) Unspecified abnormal findings in urine (04/14/24) Personal history of other malignant neoplasm of large intestine (04/14/24) Coronary angioplasty status (04/14/24) Subjective Subjective Patient was seen and examined today, I have elected to stop his CIWA scores-I am not convinced that he is at risk for DTs, I also stopped his oxycodone-patient is on no narcotics at home and with his history of falls I am concerned about patient taking medications that would cause confusion or debility. Patient's white blood cell count today is 15.9. Patient's urine culture is pending Objective Data Objective Data Vital Signs: Vital Signs Temp Pulse Resp BP Pulse Ox O2 Del Method O2 Flow Rate 98.8 F 80 20 H 100/42 L 95 Room Air 97 04/15/24 08:17 04/15/24 08:17 04/15/24 08:17 04/15/24 08:17 04/15/24 08:17 04/15/24 08:17 04/14/24 12:55 Oxygen Flow Rate (L/min) 97 Oxygen Delivery Method Room Air Weight: 67.54 kg Body Mass Index (BMI) 22.6 Intake & Output: Intake and Output for Last 24 Hours 04/13/24 04/14/24 04/15/24 23:59 23:59 23:59 Intake Total 2632.5 / 3032.5 1255.00 / 1255.00 Output Total 100 / 100 Balance 2632.5 / 3032.5 1155.00 / 1155.00 Lab / Micro Data 04/15/24 06:57 04/15/24 06:57 Labs: Laboratory Results - last 24 hr 04/14/24 13:00: WBC 21.6 H, RBC 3.76 L, Hgb 11.2 L, Hct 34.8 L, MCV 92.6, MCH 29.8, MCHC 32.2, RDW Std Deviation 51.0 H, RDW Coeff of Kathryn 14.8 H, Plt Count 240, MPV 8.9, Immature Gran % (Auto) 0.800, Neut % (Auto) 89.2 H, Lymph % (Auto) 3.7 L, [place] % (Auto) 5.6, Eos % (Auto) 0.0, Baso % (Auto) 0.7, Absolute Neuts (auto) 19.3 H, Absolute Lymphs (auto) 0.80 L, Nucleated RBC % 0, Toxic Granulation 1+, Sodium 134 L, Potassium 4.1, Chloride 104, Carbon Dioxide 21.0, Anion Gap 9, BUN 38 H, Creatinine 1.83 H, Estim Creat Clear Calc 28.55, Est GFR (MDRD) Af Amer 46 L, Est GFR (MDRD) Non-Af 38 L, BUN/Creatinine Ratio 20.8 H, G lucose 116 H, Calcium 8.8, Total Bilirubin 0.80, AST 97 H, ALT 53, Alkaline Phosphatase 168 H, Total Creatine Kinase 2945 H, Troponin I High Sens 75, Total Protein 7.0, Albumin 2.6 L, Globulin 4.4 H, Albumin/Globulin Ratio 0.6 L 04/14/24 13:45: Lactic Acid 2.0 04/14/24 14:53: Urine Color Yellow, Urine Clarity Sl. Cloudy, Urine pH 6.0, Ur Specific [place] 1.020, Urine Protein 30 H, Urine Glucose (UA) Normal, Urine Ketones 5 H, Urine Occult Blood 250 H, Urine Nitrite Positive H, Urine Bilirubin Negative, Urine Urobilinogen Normal, Ur Leukocyte Esterase 500 H, Urine RBC 0 SEEN, Urine WBC 25-50 SEEN, Ur Squamous Epith Cells 0 SEEN, Urine Bacteria 2+, Urine Mucus 0 SEEN, Urine Opiates Screen NEGATIVE, Urine Methadone Screen NEGATIVE, Ur Barbiturates Screen NEGATIVE, Ur Phencyclidine Scrn NEGATIVE, Ur Amphetamines Screen NEGATIVE, MDMA (Ecstasy) Screen POSITIVE H, U Benzodiazepines Scrn NEGATIVE, Urine Cocaine Screen NEGATIVE, U Cannabinoids Screen NEGATIVE, Ur Drug Screen Comment 04/14/24 18:20: Lactic Acid 1.8 04/14/24 19:00: Sodium 137, Potassium 4.5, Chloride 109 H, Carbon Dioxide 19.0 L , Anion Gap 9, BUN 38 H, Creatinine 1.61 H, Estim Creat Clear Calc 32.05, Est GFR (MDRD) Af Amer 53 L, Est GFR (MDRD) Non-Af 44 L, BUN/Creatinine Ratio 23.6 H , Glucose 108 H, Calcium 8.7, Magnesium 2.6, Total Bilirubin 0.70, AST 125 H, ALT 56, Alkaline Phosphatase 281 H, Total Creatine Kinase 2932 H, Total Protein 6.8, Albumin 2.3 L, Globulin 4.5 H, Albumin/Globulin Ratio 0.5 L 04/15/24 06:57: WBC 15.9 H, RBC 3.47 L, Hgb 10.3 L, Hct 31.9 L, MCV 91.9, MCH 29.7, MCHC 32.3, RDW Std Deviation 51.2 H, RDW Coeff of Kathryn 15.2 H, Plt Count 211, MPV 9.1, Immature Gran % (Auto) 1.000 H, Neut % (Auto) 88.9 H, Lymph % (Auto) 3.1 L, [place] % (Auto) 6.6, Eos % (Auto) 0.1, Baso % (Auto) 0.3, Absolute Neuts (auto) 14.1 H, Absolute Lymphs (auto) 0.49 L, Nucleated RBC % 0, Sodium 140, Potassium 3.6, Chloride 112 H, Carbon Dioxide 21.0, Anion Gap 7, BUN 34 H, Creatinine 1.31 H, Estim Creat Clear Calc 39.38, Est GFR (MDRD) Af Amer 67, Est GFR (MDRD) Non-Af 55 L, BUN/Creatinine Ratio 26.0 H, Glucose 120 H, Calcium 8.3 L, Total Bilirubin 0.50, AST 80 H, ALT 59, Alkaline Phosphatase 155 H, Total Protein 6.1 L, Albumin 2.1 L, Globulin 4.0, Albumin/Globulin Ratio 0.5 L Micro: Microbiology 04/14/24 14:44 Blood Culture (Wb) - Anticubital Right Blood Culture - Preliminary 04/14/24 22:00 Nasal Secretion SARS-CoV-2 Antigen (Rapid) - Final 04/14/24 16:50 Mucosa - Nasopharyngeal Respiratory Panel (PCR) - Final Radiography Diagnostic Testing: Radiology Impression Brain CT 04/14/24 13:02 IMPRESSION: Chronic involutional changes of the brain. Electronically Signed: Kevon Sorto MD at 13:36 EDT , Hip/Pelvis X-Ray 04/14/24 13:30 IMPRESSION: Degenerative changes. Healed right superior and inferior pubic rami fractures. No acute fracture is seen. Electronically Signed: Kevon Sorto MD at 13:51 EDT , Knee X-Ray 04/14/24 13:30 IMPRESSION: Degenerative arthrosis. Electronically Signed: Kevon Sorto MD at 13:54 EDT , Knee X-Ray 04/14/24 13:30 IMPRESSION: Degenerative arthrosis. Electronically Signed: Kevon Sorto MD at 13:54 EDT , Chest X-Ray 04/14/24 15:20 IMPRESSION: No acute cardiopulmonary pathology Electronically Signed: Vishal Rojas MD at 16:23 EDT , Physical Exam Const alert and no apparent distress General Appearance: cooperative, well kempt and well developed Orientation / Consciousness: awake, oriented to person and oriented to place HEENT normocephalic and moist oral mucous membranes Eyes PERRL, EOMs intact bilaterally and conjunctivae normal Neck supple, no JVD, thyroid normal and no carotid bruits General: trachea midline Resp normal respiratory effort, no retractions, no use of accessory muscles and clear to auscultation bilaterally Auscultation: Negative for rales, rhonchi or wheezes Cardio regular rate, regular rhythm, S1 normal heart sound, S2 normal heart sound, no murmurs, no rub and no gallops GI normal to inspection, nondistended, normoactive bowel sounds, soft to palpation, non-tender and non-distended Extremity no clubbing, cyanosis or edema Skin Skin Narrative: There are areas of eschars noted over the patient's lower extremities- particularly in the knee area Neuro CN's II-XII intact bilaterally, no focal motor deficits and no sensory deficits noted Sensorium / Orientation: awake, alert, oriented to person and oriented to place Speech: speech normal Psych affect normal Psych Narrative: Patient is a poor informant Assessment & Plan Assessment/Plan (1) Sepsis: PLAN: Plan 1. Acute sepsis secondary to acute cystitis-patient remains on Zosyn at this time, await urine culture, in the past patient has had ESBL E. coli in the urine which was sensitive to Zosyn #2 acute on chronic debility-PT and OT will see the patient, he may need temporary placement in a snf facility for rehab services. #3 chronic depression-patient is on Remeron and Wellbutrin #4 hyperlipidemia-patient is on atorvastatin #5 suspected cognitive impairment-complicates care, management, recovery, and prognosis Total clinical time spent by myself addressing the patient's medical issues, reviewing all of his data, and collaborating with patient's care team: 35 minutes Charges/Coding Visit Charges Inpatient E&M: 56221 Subs Hosp L2
[2024-04-15] MEDS: Lidocaine 5% Patch 1 PATCH TOPICAL (10:19)
[2024-04-15] MEDS: Finasteride 5 MG Tablet PO (10:22)
[2024-04-15] MEDS: Heparin Injection (Vial) 5,000 UNIT/ML VIAL 5000 UNIT SC ×2 (10:22→20:36)
--- NOTE | 2024-04-15 10:24 | WOUNDNOTE ---
In to assess the colostomy appliance. pt states has had ostomy for approx 8 years. pt is independent with care of the ostomy. pt denies further needs.
--- NOTE | 2024-04-15 12:57 | CASEMGMT ---
ELIE PETERSON Assessment Face to Face with patient for initial transition planning/care coordination assessment. ELIE PETERSON introduced self and role at [facility], pt voices understanding. Pt is A&Ox4 and is resting comfortably in the chair and is calm. Care providers, pharmacy, and demographics verified. Admitting dx: UTI, TORIRE PCP: Vishal Antonio Specialists: [facility] (Oncology). Pt denies seeing Dr. Liu any longer but states I have a bad memory Preferred Pharmacy: [facility] Insurance: [facility] A/B, ANTHEM Prescription Benefit: Yes LNOK: Rita Albert (Daughter - Lives in [place]) Living Arrangements: Pt lives alone in a single story home with two steps to enter ADLs/IADLs: Pt requires assistance at this time and states that his neighbors are able to help him and also his daughter when she is available. Transportation: Pt recently stopped driving. Pt states that his neighbor and daughter are able to help DME: Medical alert info given. Pt states that he has a shower chair, Cane, FWW, and Grab bars. HHC/SNF: Hx at the TCU. Pt was recently DC'd from [facility] and subsequently had C. Pt states that the HHC has been discontinued. Pt is unsure of what [facility] agency saw him. Colostomy: Pt states that he has been independent in caring for this x 8 years Pt?s goal: Return to PLOF Plan: Anticipate SNF. Pt states that he has a good experience at [facility] and would like to return if warranted. Report given to MS3 ELIE Calderon RN, CM
--- NOTE | 2024-04-15 12:59 | CASEMGMT ---
Addendum entered by Tatyana Barnes 04/15/24 13:21: Social Work- Pt declines SNF list d/t having preference based on past stay. HERIBERTO Araiza Original Note: Social Work- SW met with pt to discuss preferences at d/c. Pt states that he would like to go to [facility]. Pt states that he has been at [facility] prior and enjoyed his experience there. Pt states that his daughter lives in [place] and is not available for assistance. Pt states that he relies on his neighbors for assistance at times. Pt states that he often falls in his garage between the car and wall and is able to get himself up, however, pt realizes the danger in falls and reports that he would like to go to a SNF for strengthening and to improve gait. SW completed referral to [facility]. SW to remain available to follow. HERIBERTO Araiza
[2024-04-15 13:27] VITALS: PULSE 80
[2024-04-15 13:30] VITALS: BP 110/62; PULSE 73; RESP 18; TEMP 36.7; O2SAT 98
--- NOTE | 2024-04-15 15:25 | CHAPLAIN ---
Type of Pastoral Visit ___ Initial Visit ___ Follow-up Visit ___ On-call Visit ___ General Patient Visit ___ Spiritual Assessment ___ Family Conference ___ Bereavement ___ Rapid Response ___ Code Blue ___ Other (describe below) Pastoral Care Referral From ___ Patient ___ Family ___ Nurse ___ Physician ___ Harness Preparer ___ Dexigraph Operator ___ Other (describe below) Sacrament/Intervention ___ Active listening ___ Anointing ___ Advent ___ Bereavement ___ Communion ___ Amparo exploration ___ ___ Life review ___ Prayer ___ Reconciliation ___ Sacrament of Sick ___ Supportive presence ___ Wedding ___ Other (describe below) Pastoral Comments patient is sleeping and did not awaken to his name; left a calling card
[2024-04-15 20:28] VITALS: BP 113/56; PULSE 77; RESP 15; TEMP 36.9; O2SAT 97
[2024-04-15] MEDS: Tamsulosin HCl 0.4 MG Capsule PO (20:36)
[2024-04-15] MEDS: Menthol/Lanolin/Calamine/Znox 113 GM Tube 1 APPLIC TOPICAL (21:48)
[2024-04-15 23:00] VITALS: O2SAT 97
[2024-04-16 03:27] VITALS: RESP 15
[2024-04-16 03:32] VITALS: BP 137/60; PULSE 90; RESP 15; TEMP 37.3; O2SAT 96
[2024-04-16] MEDS: Piperacil/Tazobactam 3.375 GM in 0.9% Normal Saline (50mL MB+) 50 ML IV ×3 (05:14→20:13)
--- NOTE | 2024-04-16 07:16 | PCM.PN.HOSP ---
Reason for Visit Reason for Visit: Diagnoses Sepsis, unspecified organism (04/14/24) Depression, unspecified (04/14/24) Essential (primary) hypertension (04/14/24) Acute kidney failure, unspecified (04/14/24) Benign prostatic hyperplasia without lower urinary tract symptoms (04/14/24) Repeated falls (04/14/24) Abnormal levels of other serum enzymes (04/14/24) Unspecified abnormal findings in urine (04/14/24) Personal history of other malignant neoplasm of large intestine (04/14/24) Coronary angioplasty status (04/14/24) Subjective Subjective Patient is an 84-year-old gentleman admitted with multiple falls. An assessment of sepsis secondary to acute cystitis made admitted to regular nursing floor for further management Objective Data Objective Data Vital Signs: Vital Signs Temp Pulse Resp BP Pulse Ox O2 Del Method O2 Flow Rate 99.1 F 90 15 137/60 H 96 Room Air 97 04/16/24 03:32 04/16/24 03:32 04/16/24 03:32 04/16/24 03:32 04/16/24 03:32 04/16/24 03:32 04/14/24 12:55 Oxygen Flow Rate (L/min) 97 Oxygen Delivery Method Room Air Weight: 67.54 kg Body Mass Index (BMI) 22.6 Intake & Output: Intake and Output for Last 24 Hours 04/14/24 04/15/24 04/16/24 23:59 23:59 23:59 Intake Total 2632.5 / 3032.5 2613.75 / 2613.75 650 / 650 Output Total 200 / 200 900 / 900 Balance 2632.5 / 3032.5 2413.75 / 2413.75 -250 / -250 Lab / Micro Data 04/16/24 08:51 04/16/24 08:51 Labs: Laboratory Results - last 24 hr 04/15/24 06:57: WBC 15.9 H, RBC 3.47 L, Hgb 10.3 L, Hct 31.9 L, MCV 91.9, MCH 29.7, MCHC 32.3, RDW Std Deviation 51.2 H, RDW Coeff of Kathryn 15.2 H, Plt Count 211, MPV 9.1, Immature Gran % (Auto) 1.000 H, Neut % (Auto) 88.9 H, Lymph % (Auto) 3.1 L, [place] % (Auto) 6.6, Eos % (Auto) 0.1, Baso % (Auto) 0.3, Absolute Neuts (auto) 14.1 H, Absolute Lymphs (auto) 0.49 L, Nucleated RBC % 0, Sodium 140, Potassium 3.6, Chloride 112 H, Carbon Dioxide 21.0, Anion Gap 7, BUN 34 H, Creatinine 1.31 H, Estim Creat Clear Calc 39.38, Est GFR (MDRD) Af Amer 67, Est GFR (MDRD) Non-Af 55 L, BUN/Creatinine Ratio 26.0 H, Glucose 120 H, Calcium 8.3 L, Total Bilirubin 0.50, AST 80 H, ALT 59, Alkaline Phosphatase 155 H, Total Protein 6.1 L, Albumin 2.1 L, Globulin 4.0, Albumin/Globulin Ratio 0.5 L Micro: Microbiology 04/14/24 14:44 Blood Culture (Wb) - Anticubital Right Blood Culture - Preliminary 04/14/24 22:00 Nasal Secretion SARS-CoV-2 Antigen (Rapid) - Final 04/14/24 16:50 Mucosa - Nasopharyngeal Respiratory Panel (PCR) - Final Physical Exam Narrative GENERAL: cooperative HEENT: Atraumatic; normocephalic EYES; Anicteric, Normal Conjunctiva NECK; supple, normal thyroid, RESPIRATORY: Diminished to auscultation CARDIOVASCULAR: Regular S1 S2, GI: soft, normoactive bowel sounds, : No Renal angle tenderness; EXTREMITIES: Areas of excoriations on lower extremities MUSCULOSKELETAL: no muscle wasting NEURO: Awake; no lateralizing signs. SKIN: No Rash PSYCH; Flat affect Assessment & Plan Assessment/Plan (1) Sepsis: PLAN: Plan Patient is an 84-year-old gentleman admitted with multiple falls. An assessment of sepsis secondary to acute cystitis made admitted to regular nursing floor for further management 1. Sepsis ? Secondary to acute cystitis. Patient has history of ESBL E. coli with sensitivities to Zosyn. Was started on Zosyn on admission culture sent patient is so far bacteremic awaiting final identification and sensitivities 2. Physical deconditioning with multiple falls - Requested for PT OT eval and social work administrator to assist with discharge planning 3. Acute kidney injury ? Patient has baseline creatinine of 0.98 from 02/19/2024 creatinine on admission was 1.83 rehydrated with IV fluid with subsequent monitoring of electrolytes ordered 4. History of acute CVA -MRI on 10/30/2023 demonstrated small foci of acute infarct in the left and right occipital white matter. Patient is on atorvastatin as well as antiplatelet therapy with aspirin 5. Dyslipidemia -Patient is on statin therapy, continued at home dose 6. Coronary artery disease ? Did continue guideline directed medical therapy 7. Hypertension - Blood pressure controlled, home medications continued with dose adjustment as needed 8.. BPH with lower urinary obstructive symptoms - Patient treated with tamsulosin and finasteride 9. History of prostate cancer -Prostate cancer was treated with radiation, Continue outpatient follow-up 10. History of colon cancer -Status post colectomy with colostomy; -No current issues 11. Depression ? Patient is on Remeron and Wellbutrin 12. DVT prophylaxis -Subcu heparin Time spent in the patient's overall evaluation,decision-making process, review of diagnostic data, adjustment of management, discussion with other providers, nursing nursing and ancillary staff involved in patient's care documentation, 38 Minutes Charges/Coding Visit Charges Inpatient E&M: 00891 Subs Hosp L2
[2024-04-16 08:51] VITALS: BP 129/67; PULSE 79; RESP 18; TEMP 36.6; O2SAT 98
[2024-04-16] MEDS: Finasteride 5 MG Tablet PO (09:01)
[2024-04-16] MEDS: Heparin Injection (Vial) 5,000 UNIT/ML VIAL 5000 UNIT SC ×2 (09:01→20:11)
[2024-04-16] MEDS: Aspirin E.C. 81 MG Tablet PO (09:01)
[2024-04-16] MEDS: Lidocaine 5% Patch 1 PATCH TOPICAL (09:02)
[2024-04-16] MEDS: Menthol/Lanolin/Calamine/Znox 113 GM Tube 1 APPLIC TOPICAL ×2 (09:02→20:14)
--- NOTE | 2024-04-16 09:12 | CASEMGMT ---
Social Work- SW met with pt to discuss the declination of referral by [facility] and to pick alternate prefered facilities. PT asked SW to call dtr to have her choose a facility, as he has no preference and trusts her to make a decision. SW to f/u with pt dtr and pt. HERIBERTO Araiza
[2024-04-16 09:15] LABS: Absolute Lymphocyte Count 0.82 X10^3/uL (0.83-4.51); Absolute Neutrophil Count 11.6 X10^3/uL (2.0-7.7); Basophil# 0.05 X10^3/uL; Basophil% 0.4 % (0-1); Eosinophil# 0.14 X10^3/uL; Hemoglobin 10.3 g/dL (13.0-16.5); Lymphocyte # 0.82 X10^3/ul (0.83-4.51); Lymphocyte % 5.9 % (19-41); Mean Corp Hgb Conc 31.2 g/dL (32-36); Mean Corpuscular Hgb 29.1 pg (27.0-32.0); Mean Corpuscular Volume 93.2 fL (80-94); Mean Platelet Vol. 9.4 fl (6.2-12.0); Monocyte# 1.09 X10^3/uL; Monocyte% 7.8 % (0-10); NRBC Flagged by Analyzer 0 % (0-5); Neutrophil # 11.63 X10^3/uL (2.7-7.7); Neutrophil % 83.7 % (47-70); Platelet Count 239 K/mm3 (150-450); RBC Distribution Width CV 15.3 % (11.6-14.6); RBC Distribution Width SD 53.3 fl (35.1-43.9); Red Blood Count 3.54 M/mm3 (4.6-6.2); White Blood Count 13.9 K/mm3 (4.4-11.0)
[2024-04-16 09:22] LABS: Anion Gap 8 (5-15); BUN 24 mg/dL (7-18); BUN/Creat Ratio 21.1 RATIO (10-20); Calcium,Total 8.4 mg/dL (8.5-10.1); Chloride 114 mmol/L (98-107); Creatinine, Serum 1.14 mg/dL (0.70-1.30); EST Glomerular Filtration Rate 65 mL/min (>60); Est Glom Filt Rate - Afr Amer 79 mL/min (>60); Estimated Creatinine Clearance 45.26 ml/min; Glucose 114 mg/dL (74-106); Magnesium 2.7 mg/dL (1.6-2.6); Phosphorus 2.1 mg/dL (2.5-4.9); Potassium 3.7 mmol/L (3.5-5.1); Sodium Level 141 mmol/L (136-145)
--- NOTE | 2024-04-16 11:07 | CASEMGMT ---
Social Work- SW spoke with dtr, Rita, who states that she is pursuing guardianship with pt physician, as pt has been declining in cognitive ability and also having increasingly concerning behaviors. Pt dtr reports that pt has legally lost his license and she now has pt car keys. Pt dtr reports that pt has been having increasing paranoia and his short-term memory is significantly impacted, although his continuous churn buttermaker memory is more intact. Pt dtr reports that she is seeking LT placement following dredge captain stay d/t these concerns related to disease progression. Pt dtr is open to referrals to any facility between [facility] with a secure memory care unit and reports that a private room would be preferred if possible d/t pt paranoia of other men. SW to make referrals to local memory care units initially and f/u with dtr and pt when we have an accepting facility. HERIBERTO Araiza
[2024-04-16] MEDS: 0.9% Normal Saline (1000mL) 1,000 ML 75 ML IV (11:08)
--- NOTE | 2024-04-16 11:37 | CASEMGMT ---
Social Work Referral made to [facility], [facility], [facility], [facility] and [facility]. SW will await determination of acceptance. HERIBERTO Boateng
--- NOTE | 2024-04-16 12:11 | CHAPLAIN ---
Type of Pastoral Visit _x__ Initial Visit ___ Follow-up Visit ___ On-call Visit ___ General Patient Visit ___ Spiritual Assessment ___ Family Conference ___ Bereavement ___ Rapid Response ___ Code Blue ___ Other (describe below) Pastoral Care Referral From _x__ Patient ___ Family ___ Nurse ___ Physician ___ Tankman ___ Process Cheese Cooker ___ Other (describe below) Sacrament/Intervention _x__ Active listening ___ Anointing ___ Orthodoxy ___ Bereavement ___ Communion ___ Amparo exploration ___ ___ Life review _x__ Prayer ___ Reconciliation ___ Sacrament of Sick _x__ Supportive presence ___ Wedding ___ Other (describe below) Pastoral Comments patient has been seen before and is asked about his current situation and his physical health and coping abilities; pt states that his fall was due to being in a hurry; pt has very limited support as daughter lives and works in [employer]; pt welcomes presence and prayer for support
--- NOTE | 2024-04-16 13:24 | CASEMGMT ---
ELIE CM: Call received from [facility] stating pt was a previous patient of theirs and would be willing to accept him back for services if appropriate. Sonam Ramos RN AC
[2024-04-16] MEDS: Acetaminophen 325 MG Tablet 650 MG PO ×2 (14:08→20:10)
[2024-04-16 14:33] VITALS: BP 149/69; PULSE 79; RESP 18; TEMP 36.8; O2SAT 100
--- NOTE | 2024-04-16 15:08 | CASEMGMT ---
Addendum entered by Tatyana Barnes 04/16/24 15:58: Social Work- SW spoke with Rita, pt dtr, who reports that she will be stopping in this evening to visit pt and will select a facility with pt at that time. SW to leave list of accepting facilities/ providers including quality and resource use data and consistent with the patient?s preferred geographic region, medical needs, and insurance network were provided from the [facility]Port Guide at nurse's station. Pt dtr will leave selection for SW to follow up HERIBERTO Araiza. Original Note: Social Work- SW reached out to dtr Rita and left a voicemail to follow up on prior conversation. Pt has been accepted at [facility], [place], and [facility]; awaiting decision by pt dtr, as pt deferred to her choice. SW remains available to follow. HERIBERTO Araiza
--- NOTE | 2024-04-16 17:20 | PCA ---
PT DAUGHTER HUDSON HAS PICKED PLACE FOR PLACEMENT TO [facility]
[2024-04-16] MEDS: Tamsulosin HCl 0.4 MG Capsule PO (20:12)
[2024-04-16 20:27] VITALS: BP 117/60; PULSE 66; RESP 16; TEMP 36.8; O2SAT 99
[2024-04-16 21:52] VITALS: BP 117/60; PULSE 66; RESP 16; TEMP 36.8; O2SAT 99
[2024-04-17] MEDS: 0.9% Normal Saline (1000mL) 1,000 ML 75 ML IV (00:28)
[2024-04-17 03:00] VITALS: BP 116/71; PULSE 70; RESP 16; TEMP 36.2; O2SAT 98
[2024-04-17] MEDS: Piperacil/Tazobactam 3.375 GM in 0.9% Normal Saline (50mL MB+) 50 ML IV (05:29)
[2024-04-17] MEDS: Acetaminophen 325 MG Tablet 650 MG PO ×2 (05:43→16:23)
[2024-04-17 06:24] LABS: Absolute Lymphocyte Count 1.05 X10^3/uL (0.83-4.51); Absolute Neutrophil Count 9.2 X10^3/uL (2.0-7.7); Basophil# 0.04 X10^3/uL; Basophil% 0.3 % (0-1); Eosinophil# 0.25 X10^3/uL; Eosinophils% 2.2 % (0-5); Hematocrit 33.8 % (40-54); Hemoglobin 10.7 g/dL (13.0-16.5); Lymphocyte # 1.05 X10^3/ul (0.83-4.51); Lymphocyte % 9.2 % (19-41); Mean Corp Hgb Conc 31.7 g/dL (32-36); Mean Corpuscular Hgb 29.2 pg (27.0-32.0); Mean Corpuscular Volume 92.1 fL (80-94); Mean Platelet Vol. 9.3 fl (6.2-12.0); Monocyte# 0.83 X10^3/uL; Monocyte% 7.3 % (0-10); NRBC Flagged by Analyzer 0 % (0-5); Neutrophil # 9.18 X10^3/uL (2.7-7.7); Neutrophil % 80.2 % (47-70); Platelet Count 266 K/mm3 (150-450); RBC Distribution Width CV 15.3 % (11.6-14.6); RBC Distribution Width SD 52.4 fl (35.1-43.9); Red Blood Count 3.67 M/mm3 (4.6-6.2); White Blood Count 11.4 K/mm3 (4.4-11.0)
[2024-04-17 06:45] LABS: Anion Gap 7 (5-15); BUN 25 mg/dL (7-18); BUN/Creat Ratio 22.1 RATIO (10-20); Calcium,Total 9.1 mg/dL (8.5-10.1); Chloride 115 mmol/L (98-107); Creatinine, Serum 1.13 mg/dL (0.70-1.30); EST Glomerular Filtration Rate 66 mL/min (>60); Est Glom Filt Rate - Afr Amer 79 mL/min (>60); Estimated Creatinine Clearance 45.66 ml/min; Glucose 93 mg/dL (74-106); Magnesium 2.2 mg/dL (1.6-2.6); Phosphorus 2.5 mg/dL (2.5-4.9); Sodium Level 141 mmol/L (136-145)
--- NOTE | 2024-04-17 06:58 | PN.HOSP_ITS ---
Reason for Visit Reason for Visit: Diagnoses Sepsis, unspecified organism (04/14/24) Depression, unspecified (04/14/24) Essential (primary) hypertension (04/14/24) Acute kidney failure, unspecified (04/14/24) Benign prostatic hyperplasia without lower urinary tract symptoms (04/14/24) Repeated falls (04/14/24) Abnormal levels of other serum enzymes (04/14/24) Unspecified abnormal findings in urine (04/14/24) Personal history of other malignant neoplasm of large intestine (04/14/24) Coronary angioplasty status (04/14/24) Subjective Subjective Patient urine and blood cultures so far positive for ESBL E. coli Objective Data Objective Data Vital Signs: Vital Signs Temp Pulse Resp BP Pulse Ox O2 Del Method O2 Flow Rate 97.2 F L 70 16 116/71 98 Room Air 97 04/17/24 03:00 04/17/24 03:00 04/17/24 03:00 04/17/24 03:00 04/17/24 03:00 04/17/24 03:00 04/14/24 12:55 Oxygen Flow Rate (L/min) 97 Oxygen Delivery Method Room Air Weight: 67.54 kg Body Mass Index (BMI) 22.6 Intake & Output: Intake and Output for Last 24 Hours 04/15/24 04/16/24 04/17/24 23:59 23:59 23:59 Intake Total 2613.75 / 2613.75 1657.5 / 1657.5 1290 / 1290 Output Total 200 / 200 1100 / 1100 900 / 900 Balance 2413.75 / 2413.75 557.5 / 557.5 390 / 390 Lab / Micro Data 04/17/24 05:42 04/17/24 05:42 Labs: Laboratory Results - last 24 hr 04/16/24 08:51: WBC 13.9 H, RBC 3.54 L, Hgb 10.3 L, Hct 33.0 L, MCV 93.2, MCH 29.1, MCHC 31.2 L, RDW Std Deviation 53.3 H, RDW Coeff of Kathryn 15.3 H, Plt Count 239, MPV 9.4, Immature Gran % (Auto) 1.200 H, Neut % (Auto) 83.7 H, Lymph % (Auto) 5.9 L, [place] % (Auto) 7.8, Eos % (Auto) 1.0, Baso % (Auto) 0.4, Absolute Neuts (auto) 11.6 H, Absolute Lymphs (auto) 0.82 L, Nucleated RBC % 0, Sodium 141, Potassium 3.7, Chloride 114 H, Carbon Dioxide 19.0 L, Anion Gap 8, BUN 24 H , Creatinine 1.14, Estim Creat Clear Calc 45.26, Est GFR (MDRD) Af Amer 79, Est GFR (MDRD) Non-Af 65, BUN/Creatinine Ratio 21.1 H, Glucose 114 H, Calcium 8.4 L, Phosphorus 2.1 L, Magnesium 2.7 H 04/17/24 05:42: WBC 11.4 H, RBC 3.67 L, Hgb 10.7 L, Hct 33.8 L, MCV 92.1, MCH 29.2, MCHC 31.7 L, RDW Std Deviation 52.4 H, RDW Coeff of Kathryn 15.3 H, Plt Count 266, MPV 9.3, Immature Gran % (Auto) 0.800, Neut % (Auto) 80.2 H, Lymph % (Auto) 9.2 L, [place] % (Auto) 7.3, Eos % (Auto) 2.2, Baso % (Auto) 0.3, Absolute Neuts (auto) 9.2 H, Absolute Lymphs (auto) 1.05, Nucleated RBC % 0, Sodium 141, Potassium 4.0, Chloride 115 H, Carbon Dioxide 19.0 L, Anion Gap 7, BUN 25 H, Creatinine 1.13, Estim Creat Clear Calc 45.66, Est GFR (MDRD) Af Amer 79, Est GFR (MDRD) Non-Af 66, BUN/Creatinine Ratio 22.1 H, Glucose 93, Calcium 9.1, Phosphorus 2.5, Magnesium 2.2 Micro: Microbiology 04/14/24 23:50 Urine, Clean Catch Urine Culture - Preliminary Presumptive E. coli 04/14/24 14:44 Blood Culture (Wb) - Anticubital Right Blood Culture - Preliminary GNR lactose party plan sales agent 04/14/24 22:00 Nasal Secretion SARS-CoV-2 Antigen (Rapid) - Final 04/14/24 16:50 Mucosa - Nasopharyngeal Respiratory Panel (PCR) - Final Physical Exam Narrative GENERAL: cooperative HEENT: Atraumatic; normocephalic EYES; Anicteric, Normal Conjunctiva NECK; supple, normal thyroid, RESPIRATORY: Diminished to auscultation CARDIOVASCULAR: Regular S1 S2, GI: soft, normoactive bowel sounds, : No Renal angle tenderness; EXTREMITIES: Areas of excoriations on lower extremities MUSCULOSKELETAL: no muscle wasting NEURO: Awake; no lateralizing signs. SKIN: No Rash PSYCH; Flat affect Assessment & Plan Assessment/Plan (1) Sepsis: QUALIFIERS: Sepsis type: Escherichia coli Sepsis acute organ dysfunction status: with acute organ dysfunction Severe sepsis acute organ dysfunction type: acute renal failure Acute renal failure type: unspecified S evere sepsis shock status: without septic shock Qualified Code(s): A41.51 - Sepsis due to Escherichia coli [E. coli]; R65.20 - Severe sepsis without septic shock; N17.9 - Acute kidney failure, unspecified PLAN: Plan Patient is an 84-year-old gentleman admitted with multiple falls. An assessment of sepsis secondary to acute cystitis made admitted to regular nursing floor for further management 1. Sepsis ? Secondary to acute cystitis with E. coli. Patient has history of ESBL E. coli with sensitivities to Zosyn. Was started on Zosyn on admission culture sent patient is so far bacteremic awaiting final identification and sensitivities ? 04/17/2024; cultures positive for ESBL E. coli. Patient was on Zosyn and switched to Invanz. 2. Physical deconditioning with multiple falls - Requested for PT OT eval and executive secretary social welfare to assist with discharge planning ? 04/17/2024; family to decide on a retirement facility. 3. Acute kidney injury ? Patient has baseline creatinine of 0.98 from 02/19/2024 creatinine on admission was 1.83 rehydrated with IV fluid with subsequent monitoring of electrolytes ordered ? 04/17/2024 TORRIE resolved 4. History of acute CVA -MRI on 10/30/2023 demonstrated small foci of acute infarct in the left and right occipital white matter. Patient is on atorvastatin as well as antiplatelet therapy with aspirin 5. Dyslipidemia -Patient is on statin therapy, continued at home dose 6. Coronary artery disease ? Did continue guideline directed medical therapy 7. Hypertension - Blood pressure controlled, home medications continued with dose adjustment as needed 8.. BPH with lower urinary obstructive symptoms - Patient treated with tamsulosin and finasteride 9. History of prostate cancer -Prostate cancer was treated with radiation, Continue outpatient follow-up 10. History of colon cancer -Status post colectomy with colostomy; -No current issues 11. Depression ? Patient is on Remeron and Wellbutrin 12. Anemia - Secondary to chronic disorder monitoring H&H and transfuse if patient becomes symptomatic or hemoglobin falls below 7 13. DVT prophylaxis -Subcu heparin Time spent in the patient's overall evaluation,decision-making process, review of diagnostic data, adjustment of management, discussion with other providers, nursing nursing and ancillary staff involved in patient's care documentation, 35 Minutes Charges/Coding Visit Charges Inpatient E&M: 05584 Subs Hosp L2
--- NOTE | 2024-04-17 09:09 | NURSING ---
pt sleeping soundly
[2024-04-17] MEDS: Menthol/Lanolin/Calamine/Znox 113 GM Tube 1 APPLIC TOPICAL ×2 (09:40→20:56)
[2024-04-17] MEDS: Aspirin E.C. 81 MG Tablet PO (09:40)
[2024-04-17] MEDS: Heparin Injection (Vial) 5,000 UNIT/ML VIAL 5000 UNIT SC ×2 (09:41→21:00)
[2024-04-17] MEDS: Lidocaine 5% Patch 1 PATCH TOPICAL (09:41)
[2024-04-17] MEDS: Finasteride 5 MG Tablet PO (09:49)
--- NOTE | 2024-04-17 09:54 | NURSING ---
joann not on unit for pt administration
[2024-04-17 09:58] VITALS: BP 121/60; PULSE 76; RESP 18; TEMP 36.7; O2SAT 99
[2024-04-17] MEDS: Ertapenem Sod 1 GM in 0.9% Normal Saline (50mL MB+) 50 ML IV (10:32)
--- NOTE | 2024-04-17 11:35 | CASEMGMT ---
Social Work SW called daughter to find out her SNF of choice. She states pt [facility]. SW sent messages in [facility]port to the other facilities letting them know that pt chose a different facility. SW will wait to hear back from [facility] and will let physician know if they can take pt today. TOM Millard
[2024-04-17 12:44] VITALS: BP 111/66; PULSE 68; RESP 18; TEMP 36.6; O2SAT 98
[2024-04-17 15:21] VITALS: PULSE 78; RESP 18; O2SAT 99
--- NOTE | 2024-04-17 16:06 | CASEMGMT ---
Social Work SW spoke w/daughter earlier, their first choice is [facility]. [facility] can take pt, SW let daughter know pt may go this weekend to [facility]. SW communicated w/[facility], they can take pt this weekend, can take pt on the IV Invanz that has been prescribed, as long as pt gets a line to get the medication. As per physician, plan is for pt to get a midline. Physician will likely discharge pt tomorrow. SW left a message for daughter letting her know this. SW sent updates to [facility] in [facility], completed PAS/RR, placed PAS/RR w/results in chart and in envelope to go w/pt. Green sheet on chart w/transport form in anticipation of discharge to [facility] tomorrow, skilled. TOM Millard
[2024-04-17 16:25] VITALS: BP 142/81; PULSE 83; RESP 16; TEMP 36.8; O2SAT 100
[2024-04-17] MEDS: Tamsulosin HCl 0.4 MG Capsule PO (21:00)
[2024-04-17] MEDS: Ensure Plus High Protein 120 ML LIQUID PO (21:00)
[2024-04-17 21:54] VITALS: BP 120/63; PULSE 68; RESP 16; TEMP 36.7; O2SAT 100
[2024-04-18 03:54] VITALS: BP 114/69; PULSE 54; RESP 16; TEMP 37.1; O2SAT 97
[2024-04-18 06:53] LABS: Absolute Lymphocyte Count 1.05 X10^3/uL (0.83-4.51); Absolute Neutrophil Count 6.6 X10^3/uL (2.0-7.7); Basophil# 0.03 X10^3/uL; Basophil% 0.3 % (0-1); Eosinophil# 0.24 X10^3/uL; Eosinophils% 2.7 % (0-5); Hemoglobin 10.2 g/dL (13.0-16.5); Lymphocyte # 1.05 X10^3/ul (0.83-4.51); Lymphocyte % 11.9 % (19-41); Mean Corp Hgb Conc 31.9 g/dL (32-36); Mean Corpuscular Hgb 29.3 pg (27.0-32.0); Mean Platelet Vol. 9.2 fl (6.2-12.0); NRBC Flagged by Analyzer 0 % (0-5); Neutrophil % 74.7 % (47-70); POSITIVE MORPHOLOGY YES; Platelet Count 290 K/mm3 (150-450); RBC Distribution Width CV 15.3 % (11.6-14.6); RBC Distribution Width SD 51.8 fl (35.1-43.9); Red Blood Count 3.48 M/mm3 (4.6-6.2); White Blood Count 8.8 K/mm3 (4.4-11.0)
[2024-04-18 06:59] LABS: Differential Indicated SCAN CRITERIA MET
[2024-04-18 07:11] LABS: Anion Gap 5 (5-15); BUN 22 mg/dL (7-18); BUN/Creat Ratio 22.6 RATIO (10-20); Calcium,Total 8.7 mg/dL (8.5-10.1); Chloride 114 mmol/L (98-107); Creatinine, Serum 0.97 mg/dL (0.70-1.30); EST Glomerular Filtration Rate 78 mL/min (>60); Est Glom Filt Rate - Afr Amer 94 mL/min (>60); Estimated Creatinine Clearance 53.19 ml/min; Glucose 106 mg/dL (74-106); Potassium 3.6 mmol/L (3.5-5.1); Sodium Level 140 mmol/L (136-145)
--- NOTE | 2024-04-18 07:42 | TREXTCAR_ITS ---
Diet Diet Order/Speech Therapy: 04/14/24 16:32 Diet: Cardiac - Heart Healthy Food consistency:: Regular Liquid Consistency:: Regular/Thin Wound(s) Rt knee: Wound Type: Abrasion Lt knee: Wound Type: Skin Tear Therapies Physical Therapy: Eval and Treat Occupational Therapy: Eval and Treat Problem/Diagnosis (1) Sepsis: Status: Acute Code(s): A41.9 - Sepsis, unspecified organism Plan Patient is an 84-year-old gentleman admitted with multiple falls. An assessment of sepsis secondary to acute cystitis made admitted to regular nursing floor for further management 1. Sepsis ? Secondary to acute cystitis with E. coli. Patient has history of ESBL E. coli with sensitivities to Zosyn. Was started on Zosyn on admission culture sent patient is so far bacteremic awaiting final identification and sensitivities ? 04/17/2024; cultures positive for ESBL E. coli. Patient was on Zosyn and switched to Invanz. 2. Physical deconditioning with multiple falls - Requested for PT OT eval and high school social studies tutor to assist with discharge planning ? 04/17/2024; family to decide on a alf facility. 3. Acute kidney injury ? Patient has baseline creatinine of 0.98 from 02/19/2024 creatinine on admission was 1.83 rehydrated with IV fluid with subsequent monitoring of electrolytes ordered ? 04/17/2024 TORRIE resolved 4. History of acute CVA -MRI on 10/30/2023 demonstrated small foci of acute infarct in the left and right occipital white matter. Patient is on atorvastatin as well as antiplatelet therapy with aspirin 5. Dyslipidemia -Patient is on statin therapy, continued at home dose 6. Coronary artery disease ? Did continue guideline directed medical therapy 7. Hypertension - Blood pressure controlled, home medications continued with dose adjustment as needed 8.. BPH with lower urinary obstructive symptoms - Patient treated with tamsulosin and finasteride 9. History of prostate cancer -Prostate cancer was treated with radiation, Continue outpatient follow-up 10. History of colon cancer -Status post colectomy with colostomy; -No current issues 11. Depression ? Patient is on Remeron and Wellbutrin 12. Anemia - Secondary to chronic disorder monitoring H&H and transfuse if patient becomes symptomatic or hemoglobin falls below 7 13. DVT prophylaxis -Subcu heparin Time spent in the patient's overall evaluation,decision-making process, review o f diagnostic data, adjustment of management, discussion with other providers, nursing nursing and ancillary staff involved in patient's care documentation, 35 Minutes Allergies/Procedures Done in Hospital Allergies No Known Allergies Allergy (Verified 04/14/24 12:50) Type of Care/Length of Stay Estimated LOS: More Than 30 Days Type of Care Needed: Skilled Rehab Potential: Fair Prognosis: Fair Additional Orders/Day of Discharge Day of Discharge: 04/18/24 Dietary and Speech Recommendations Dietitian Recommendations/Changes: Continue cardiac/heart healthy diet with 120ml Ensure plus high protein 4 times per day with medpass. Will monitor weight trends. Reviewed and approved by Zeenat Stapleton, MS, RD, LD Discharge Plan Admission Admit Date/Time: 04/14/24 15:34 Attending Provider: Kole Reyes Primary Care Provider: Vsihal Antonio Consulting Providers: Jeanette Hough; Samuel Falk Discharge Orders/Prescriptions Prescriptions: New acetaminophen 325 mg Tablet 650 mg PO Q6H PRN PRN (Reason: Pain 1-10 Or Fever) Qty: 0 0RF sennosides-docusate sodium [Stimulant Laxative Plus] 8.6-50 mg Tablet 2 tab PO BID PRN PRN (Reason: Constipation) Qty: 0 0RF lidocaine 5 % Adhesive Patch,Medicated 1 patch topical DAILY Qty: 0 0RF Protocol: *Topical Application Instructions APPLICATION INSTRUCTIONS: R hip ertapenem 1 gram Recon Soln 1 g IV Q24 Qty: 0 0RF Ensure Plus High Protein 0.08 gram-1.5 kcal/mL Liquid 120 ml PO 4X/DAY Qty: 0 0RF Continued finasteride [Proscar] 5 mg tablet 5 mg PO DAILY aspirin [Adult Low Dose Aspirin] 81 mg tablet,delayed release (DR/EC) 81 mg PO DAILY tamsulosin 0.4 mg capsule 0.4 mg PO QHS gabapentin 100 mg capsule 100 mg PO TID lidocaine 5 % Adhesive Patch,Medicated 2 patch topical DAILY Qty: 0 0RF Protocol: *Topical Application Instructions APPLICATION INSTRUCTIONS: Apply to lumbar spine and right and left paraspinal muscles. multivitamin [Daily Multi-Vitamin] Tablet 1 tab PO DAILY atorvastatin 10 mg tablet 10 mg PO QHS bupropion HCl 150 mg tablet sustained-release 12 hr 150 mg PO BID mirtazapine 45 mg tablet 45 mg PO QHS nitroglycerin 0.4 mg tablet, sublingual 0.4 mg SL Q5M PRN (Reason: CHEST PAIN ) Qty: 25 3RF Referrals / Follow Up: Vishal Antonio MD [Primary Care Provider] - 04/28/24 11:20 am Disposition Disposition (needs filled in before D/C Order can be placed): [facility] Facility ([facility]) Sepsis Qualifiers: Acute renal failure type: unspecified Sepsis acute organ dysfunction status: with acute organ dysfunction Sepsis type: Escherichia coli Severe sepsis acute organ dysfunction type: acute renal failure Severe sepsis shock status: without septic shock Qualified Code(s): A41.51 - Sepsis due to Escherichia coli [E. coli]; R65.20 - Severe sepsis without septic shock; N17.9 - Acute kidney failure, unspecified
--- NOTE | 2024-04-18 07:51 | PCM.DC.SUM ---
Providers Date of Admission: 04/14/24 Date of Discharge: 04/18/24 Primary Care Physician: Dr. Vishal Antonio MD Consultations 04/14/24 16:32 Consult: Onc/Wound/applied psychology chair Routine Comment: Reason for Consult:: pt has ostomy Reason For Visit: UTI, TORRIE, ELEVATED CK Diagnosis Discharge Diagnosis (1) Sepsis: Status: Acute Code(s): A41.9 - Sepsis, unspecified organism Qualifiers: Acute renal failure type: unspecified Sepsis acute organ dysfunction status: with acute organ dysfunction Sepsis type: Escherichia coli Severe sepsis acute organ dysfunction type: acute renal failure Severe sepsis shock status: without septic shock Qualified Code(s): A41.51 - Sepsis due to Escherichia coli [E. coli]; R65.20 - Severe sepsis without septic shock; N17.9 - Acute kidney failure, unspecified Plan Patient is an 84-year-old gentleman admitted with multiple falls. An assessment of sepsis secondary to acute cystitis made admitted to regular nursing floor for further management 1. Sepsis ? Secondary to acute cystitis with E. coli. Patient has history of ESBL E. coli with sensitivities to Zosyn. Was started on Zosyn on admission culture sent patient is so far bacteremic awaiting final identification and sensitivities ? 04/17/2024; cultures positive for ESBL E. coli. Patient was on Zosyn and switched to Invanz. ? 04/18/2024; patient was discharged on Invanz for 7 more days. 2. Physical deconditioning with multiple falls - Requested for PT OT eval and social media executive to assist with discharge planning ? 04/17/2024; family to decide on a long-term facility. 3. Acute kidney injury ? Patient has baseline creatinine of 0.98 from 02/19/2024 creatinine on admission was 1.83 rehydrated with IV fluid with subsequent monitoring of electrolytes ordered ? 04/17/2024 TORRIE resolved 4. History of acute CVA -MRI on 10/30/2023 demonstrated small foci of acute infarct in the left and right occipital white matter. Patient is on atorvastatin as well as antiplatelet therapy with aspirin 5. Dyslipidemia -Patient is on statin therapy, continued at home dose 6. Coronary artery disease ? Did continue guideline directed medical therapy 7. Hypertension - Blood pressure controlled, home medications continued with dose adjustment as needed 8.. BPH with lower urinary obstructive symptoms - Patient treated with tamsulosin and finasteride 9. History of prostate cancer -Prostate cancer was treated with radiation, Continue outpatient follow-up 10. History of colon cancer -Status post colectomy with colostomy; -No current issues 11. Depression ? Patient is on Remeron and Wellbutrin 12. Anemia - Secondary to chronic disorder monitoring H&H and transfuse if patient becomes symptomatic or hemoglobin falls below 7 13. DVT prophylaxis -Subcu heparin Time spent in the patient's overall evaluation,decision-making process, review of diagnostic data, adjustment of management, discussion with other providers, nursing nursing and ancillary staff involved in patient's care documentation, 35 Minutes Medications at Discharge Home Medications finasteride 5 mg tablet (Proscar) 5 mg PO DAILY PROSTATE 01/27/18 aspirin 81 mg tablet,delayed release (Adult Low Dose Aspirin) 81 mg PO DAILY HEART HEALTH 07/30/18 tamsulosin 0.4 mg capsule 0.4 mg PO QHS PROSTATE 10/21/21 nitroglycerin 0.4 mg sublingual tablet 0.4 mg sublingual Q5M PRN CHEST PAIN #25 tabs 05/12/23 atorvastatin 10 mg tablet 10 mg PO QHS CHOLESTEROL 10/31/23 bupropion HCl 150 mg tablet,12 hr sustained-release 150 mg PO BID DEPRESSION 10/31/23 mirtazapine 45 mg tablet 45 mg PO QHS DEPRESSION 10/31/23 gabapentin 100 mg capsule 100 mg PO TID NEUROPATHY 11/14/23 lidocaine 5 % topical patch 2 patch topical DAILY PAIN #0 ea 11/17/23 multivitamin (Daily Multi-Vitamin tablet) 1 tab PO DAILY 01/05/24 acetaminophen 325 mg tablet 650 mg (2 x 325 mg) PO Q6H PRN PRN Pain 1-10 Or Fever #0 tabs 04/18/24 ertapenem 1 gram solution for injection 1 g IV Q24 #0 ea 04/18/24 food supplemt, lactose-reduced 0.08 gram-1.5 kcal/mL oral liquid (Ensure Plus High Protein) 120 ml PO 4X/DAY #0 mL 04/18/24 lidocaine 5 % topical patch 1 patch topical DAILY #0 ea 04/18/24 sennosides 8.6 mg-docusate sodium 50 mg tablet (Stimulant Laxative Plus) 2 tab PO BID PRN PRN Constipation #0 tabs 04/18/24 Physical Exam Narrative GENERAL: cooperative HEENT: Atraumatic; normocephalic EYES; Anicteric, Normal Conjunctiva NECK; supple, normal thyroid, RESPIRATORY: Diminished to auscultation CARDIOVASCULAR: Regular S1 S2, GI: soft, normoactive bowel sounds, : No Renal angle tenderness; EXTREMITIES: Areas of excoriations on lower extremities MUSCULOSKELETAL: no muscle wasting NEURO: Awake; no lateralizing signs. SKIN: No Rash PSYCH; Flat affect Weight / BMI Weight Weight: 67.54 kg Body Mass Index (BMI) 22.6 ABG / Lab / Microbiology Data 04/18/24 06:34 04/18/24 06:34 Laboratory: Laboratory Results - last 24 hr 04/18/24 06:34: WBC 8.8, RBC 3.48 L, Hgb 10.2 L, Hct 32.0 L, MCV 92.0, MCH 29.3, MCHC 31.9 L, RDW Std Deviation 51.8 H, RDW Coeff of Kathryn 15.3 H, Plt Count 290, MPV 9.2, Immature Gran % (Auto) 1.400 H, Neut % (Auto) 74.7 H, Lymph % (Auto) 11.9 L, [place] % (Auto) 9.0, Eos % (Auto) 2.7, Baso % (Auto) 0.3, Absolute Neuts (auto) 6.6, Absolute Lymphs (auto) 1.05, Nucleated RBC % 0, Sodium 140, Potassium 3.6, Chloride 114 H, Carbon Dioxide 21.0, Anion Gap 5, BUN 22 H, Creatinine 0.97, Estim Creat Clear Calc 53.19, Est GFR (MDRD) Af Amer 94, Est GFR (MDRD) Non-Af 78, BUN/Creatinine Ratio 22.6 H, Glucose 106, Calcium 8.7 Microbiology: Microbiology 04/14/24 23:50 Urine, Clean Catch Urine Culture - Final ESBL Escherichia coli 04/14/24 14:44 Blood Culture (Wb) - Anticubital Right Blood Culture - Final ESBL Escherichia coli 04/14/24 22:00 Nasal Secretion SARS-CoV-2 Antigen (Rapid) - Final 04/14/24 16:50 Mucosa - Nasopharyngeal Respiratory Panel (PCR) - Final D/C Instructions Discharge Diet: No restrictions Discharge Activity: Return to Normal Activity Call your doctor if you observe: Fever of 101 or Higher, Shortness of breath, Fainting spells and Chest pain Meaningful Use Info Meaningful Use Meaningful Use Diagnoses (Choose all that apply): None applicable Ischemic Stroke Statin Dosing Therapy Reference: STATIN DOSE THERAPY REFERENCE: * Patients > 75 years receive moderate or high dose statin therapy. * Patients 75 years or YOUNGER should receive HIGH intensity statin dose unless contraindicated. You will be required to document reason for non-treatment if statin daily dose does not meet guidelines. HIGH DOSE STATIN THERAPY DAILY Atorvastatin > than or = to 40 mg Rosuvastatin > than or = to 20 mg Amlodipine + Atorvastatin > than or = to 2.5/40 mg Ezetimibe + Simvastatin 10/80 mg Simvastatin 80mg Discharge Plan Admission Admit Date/Time: 04/14/24 15:34 Attending Provider: Kole Reyes Primary Care Provider: Vishal Antonio Consulting Providers: Jeanette Hough; Samuel Falk Discharge Orders/Prescriptions Prescriptions: New acetaminophen 325 mg Tablet 650 mg PO Q6H PRN PRN (Reason: Pain 1-10 Or Fever) Qty: 0 0RF sennosides-docusate sodium [Stimulant Laxative Plus] 8.6-50 mg Tablet 2 tab PO BID PRN PRN (Reason: Constipation) Qty: 0 0RF lidocaine 5 % Adhesive Patch,Medicated 1 patch topical DAILY Qty: 0 0RF Protocol: *Topical Application Instructions APPLICATION INSTRUCTIONS: R hip ertapenem 1 gram Recon Soln 1 g IV Q24 Qty: 0 0RF Ensure Plus High Protein 0.08 gram-1.5 kcal/mL Liquid 120 ml PO 4X/DAY Qty: 0 0RF Continued finasteride [Proscar] 5 mg tablet 5 mg PO DAILY aspirin [Adult Low Dose Aspirin] 81 mg tablet,delayed release (DR/EC) 81 mg PO DAILY tamsulosin 0.4 mg capsule 0.4 mg PO QHS gabapentin 100 mg capsule 100 mg PO TID lidocaine 5 % Adhesive Patch,Medicated 2 patch topical DAILY Qty: 0 0RF Protocol: *Topical Application Instructions APPLICATION INSTRUCTIONS: Apply to lumbar spine and right and left paraspinal muscles. multivitamin [Daily Multi-Vitamin] Tablet 1 tab PO DAILY atorvastatin 10 mg tablet 10 mg PO QHS bupropion HCl 150 mg tablet sustained-release 12 hr 150 mg PO BID mirtazapine 45 mg tablet 45 mg PO QHS nitroglycerin 0.4 mg tablet, sublingual 0.4 mg SL Q5M PRN (Reason: CHEST PAIN ) Qty: 25 3RF Referrals / Follow Up: Vishal Antonio MD [Primary Care Provider] - 04/28/24 11:20 am Disposition Disposition (needs filled in before D/C Order can be placed): [facility] Facility Charges/Coding Visit Charges Inpatient E&M: 79071 Disch Hosp >30min
[2024-04-18 10:07] VITALS: BP 130/73; PULSE 80; RESP 18; TEMP 36.5; O2SAT 99
[2024-04-18] MEDS: Lidocaine 5% Patch 1 PATCH TOPICAL (10:15)
[2024-04-18] MEDS: Heparin Injection (Vial) 5,000 UNIT/ML VIAL 5000 UNIT SC (10:15)
[2024-04-18] MEDS: Finasteride 5 MG Tablet PO (10:15)
[2024-04-18] MEDS: 0.9% Saline Lock 10 ML Syringe IV ×3 (10:17→12:18)
[2024-04-18] MEDS: Ertapenem Sod 1 GM in 0.9% Normal Saline (50mL MB+) 50 ML IV (11:27)
[2024-04-18] MEDS: Aspirin E.C. 81 MG Tablet PO (11:35)
[2024-04-18] MEDS: Ensure Plus High Protein 120 ML LIQUID PO (11:35)
[2024-04-18] MEDS: Menthol/Lanolin/Calamine/Znox 113 GM Tube 1 APPLIC TOPICAL (11:36)
[2024-04-18] MEDS: Acetaminophen 325 MG Tablet 650 MG PO (11:40)
[2024-04-18 12:19] VITALS: BP 129/63; PULSE 65; RESP 18; TEMP 36.6; O2SAT 97
== END 2024-04-18 13:11 | disposition skilled nursing facility (03) | DRG 872 ==
LOC: ED 14:47 → MS3 16:00
PROVIDERS: Admitting Provider Internal Medicine; Emergency Provider Emergency Medicine; PCP Family Medicine; Visit Provider Internal Medicine
DX: A41.51 Sepsis due to Escherichia coli [E. coli] (principal); N13.8 Other obstructive and reflux uropathy; N17.9 Acute kidney failure, unspecified; N30.00 Acute cystitis without hematuria; Z16.12 Extended spectrum beta lactamase (ESBL) resistance; I10 Essential (primary) hypertension; F32.A Depression, unspecified; D64.9 Anemia, unspecified; Z93.3 Colostomy status; R65.20 Severe sepsis without septic shock; S80.211A Abrasion, right knee, initial encounter; S00.81XA Abrasion of other part of head, initial encounter; S80.212A Abrasion, left knee, initial encounter; M17.0 Bilateral primary osteoarthritis of knee; I25.10 Atherosclerotic heart disease of native coronary artery without angina pectoris; E78.5 Hyperlipidemia, unspecified; W19.XXXA Unspecified fall, initial encounter; N40.1 Benign prostatic hyperplasia with lower urinary tract symptoms; Z86.73 Personal history of transient ischemic attack (TIA), and cerebral infarction without residual deficits; R29.6 Repeated falls; Z85.038 Personal history of other malignant neoplasm of large intestine; Z85.46 Personal history of malignant neoplasm of prostate; Z98.61 Coronary angioplasty status; R74.8 Abnormal levels of other serum enzymes
CPT/HCPCS: 36415; 70450; 71045; 73502; 73560; 80048; 80053; 80307; 81001; 82550; 83605; 83735; 84100; 84484; 85025; 87040; 87077; 87086; 87088; 87186; 87633; 87811; 93005; 94668; 97110; 97116; 97162; 97166; 97530; 97535; 97802; 99284; 99406; J7030; J7040; A4216

== ENCOUNTER 2024-07-13 05:29 | Emergency (ER) | payer MEDICARE, BC, SELFPAY ==
[2024-07-13 05:30] VITALS: BP 116/67; PULSE 87; RESP 16; TEMP 36.6; O2SAT 94; BMI 23.8
--- NOTE | 2024-07-13 05:33 | EDS_ITS ---
HPI History of Present Illness Chief Complaint: Fall [facility] Medical History Acute UTI Syncope Near syncope Alcohol abuse GI bleed Non-smoker Stroke/cerebrovascular accident Vision loss of right eye Vision loss of left eye Hearing loss, left Hearing loss, right Chronic pain Kidney stones Kidney disease Myocardial infarct Chest pain Acute cerebrovascular accident (CVA) CVA (cerebral vascular accident) Vitamin D deficiency Chronic pain Cognitive impairment Frequent falls Smoker Fall History of echocardiogram Wears hearing aid Wears glasses Wears dentures Cancer Depression Anxiety Alcohol use Gait instability Ambulates with cane Arthritis High cholesterol Easy bruising Back pain Chewing tobacco nicotine dependence History of pain when walking History of stress test Cardiology follow-up encounter History of heart attack Colon cancer 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 Atherosclerosis of coronary artery of [place] heart without angina pectoris Essential (primary) hypertension 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 BPH (benign prostatic hyperplasia) HLD (hyperlipidemia) Home Medications ?Medication ?Instructions ?Recorded ?Last Taken ?Type finasteride 5 mg tablet (Proscar) 5 mg PO DAILY PROSTATE 01/27/18 01/05/24 History aspirin 81 mg tablet,delayed 81 mg PO DAILY HEART HEALTH 07/30/18 01/04/24 History release (Adult Low Dose Aspirin) tamsulosin 0.4 mg capsule 0.4 mg PO QHS PROSTATE 10/21/21 01/04/24 History nitroglycerin 0.4 mg sublingual 0.4 mg sublingual Q5M PRN CHEST 05/12/23 Unknown Rx tablet PAIN #25 tabs atorvastatin 10 mg tablet 10 mg PO QHS CHOLESTEROL 10/31/23 01/04/24 History bupropion HCl 150 mg tablet,12 hr 150 mg PO BID DEPRESSION 10/31/23 01/05/24 History sustained-release mirtazapine 45 mg tablet 45 mg PO QHS DEPRESSION 10/31/23 01/04/24 History gabapentin 100 mg capsule 100 mg PO TID NEUROPATHY 11/14/23 01/05/24 History lidocaine 5 % topical patch 2 patch topical DAILY PAIN #0 ea 11/17/23 01/05/24 Rx multivitamin (Daily Multi-Vitamin 1 tab PO DAILY 01/05/24 01/05/24 History tablet) acetaminophen 325 mg tablet 650 mg (2 x 325 mg) PO Q6H PRN PRN 04/18/24 Unknown Rx Pain 1-10 Or Fever #0 tabs ertapenem 1 gram solution for 1 g IV Q24 #0 ea 04/18/24 Unknown Rx injection food supplemt, lactose-reduced 120 ml PO 4X/DAY #0 mL 04/18/24 Unknown Rx 0.08 gram-1.5 kcal/mL oral liquid (Ensure Plus High Protein) lidocaine 5 % topical patch 1 patch topical DAILY #0 ea 04/18/24 Unknown Rx sennosides 8.6 mg-docusate sodium 2 tab PO BID PRN PRN Constipation 04/18/24 Unknown Rx 50 mg tablet (Stimulant Laxative #0 tabs Plus) Allergy/AdvReac Type Severity Reaction Status Date / Time No Known Allergies Allergy Verified 07/13/24 05:51 Family History Father Cancer skin cancer Mother Myocardial infarction Diabetes Other Fall Surgical History History of angioplasty History of colostomy History of left heart catheterization (02/24/02) H/O percutaneous transluminal coronary angioplasty (11/13/93) History of cystoscopy Hx of appendectomy History of inguinal hernia repair, bilateral Status post trigger finger release History of rotator cuff surgery Hx of colectomy Social History household members: none Smoking Status: Never smoker alcohol intake: current alcohol intake frequency: a few times a month Alcohol type: hard liquor substance use type: does not use caffeine: Yes Type: coffee Number of servings: 1 EXAM Physical Exam Const Vital Signs: 07/13/24 05:30 07/13/24 05:52 Temperature 97.8 F Temperature Source Oral Pulse Rate 87 Respiratory Rate 16 Respiratory Effort Normal Respiratory Depth Normal Respiratory Pattern Normal Blood Pressure 116/67 Blood Pressure Mean 83 Pulse Ox 94 Oxygen Delivery Method Room Air Room Air MDM MDM MDM Narrative Medical decision making narrative: HISTORY OF PRESENT ILLNESS: 84-year-old male presents with concern for mechanical fall from standing patient notes he was walking on the hallway. Gnosis this was mechanical fall. Denies syncope. Denies recent illness. Denies any other injury other than head trauma. REVIEW OF SYSTEMS: Pertinent positives: Head trauma, neck pain Pertinent negatives: Chest pain, shoulder pain, abdominal pain PHYSICAL EXAM: Nursing triage notes reviewed, Vital signs reviewed Primary Survey Airway: Intact Breathing: Bilateral breath sounds Circulation: Palpable bilateral femorals, Palpable bilateral radial, Palpable bilateral DP and Palpable bilateral PT Disability / Spine precautions GCS Score: Eye Openin Verbal Response: 5 Motor Response: 6 Secondary Survey Constitutional: Please see MDM Head: Ecchymosis noted to the left orbit, midface stable, NO jaw malocclusion, No Cephalohematoma, there is a small vertically oriented linear laceration approximately 1 cm in length n noted to the left orbit, no active bleeding noted, proximal 1 mm in depth, no galeal involvement. Eye: Pupils equal round and reactive to light, Extraocular muscles intact and No periorbital ecchymosis or stepoff, no evidence of entrapment ENT: Oropharynx clear, no lacerations, no hemotympanum, no raccoon eyes or faulkner sign Cervical spine / Neck: No cervical spine bony tenderness, crepitance, or stepoff deformity Trachea midline Lungs: Clear to auscultation, No asymmetric rise and No crepitus, no flail chest Cardiac: Regular rate and rhythm and No murmurs Abdomen: Soft, Nontender and No rebound Pelvis: Pelvis stable to compression : No evidence of genital injury Back: No midline bony tenderness to thoracic/lumbar/sacral spines Neuro: At baseline, alert, oriented to person, place but not time. intact strength and sensation in bilateral upper and lower extremities. 2+ patellar reflexes bilaterally. Extremities: NO gross Deformities Psych: Normal affect Nursing triage notes reviewed, Vital signs reviewed MEDICAL DECISION MAKING: Chief Complaint: Falls External records reviewed: Current medications reviewed Factors affecting care: BPH, frequent falls, dementia Social determinants of health: Elderly History obtained from others: EMS Consults: none [facility] Narrative: Patient was initially hemodynamically stable, afebrile and nontoxic-appearing. Primary secondary trauma surveys concerning for the following differential I considered the following differential diagnosis: ICH, cervical spine injury, concussion ALL IMAGES (IF OBTAINED) HAVE BEEN PERSONALLY REVIEWED AND INTERPRETED BY MYSELF. CT scan of the head and neck are negative for acute traumatic injury Tertiary exam without new injury. The patient suffered lacerations to the left orbit On exam there was no evidence of foreign bodies. There was no evidence of neurovascular injury. Laceration repair was then performed please see procedure note. The patient was given signs and symptoms warnings for infection, such as increasing pain, redness, swelling, associated heat, pus or fever. Patient was given instructions for timely follow-up for removal. Patient agreed with the plan of care Procedure: Laceration repair. The procedure was performed by myself. Indication: Wound repair Risks and benefits: risks, benefits and alternatives were discussed Consent: Consent was obtained. Wound Details: Vertical, linear laceration measuring 1 cm in length, 1 mm in depth, no foreign bodies or deeper structures involved. Anesthesia: None (verbal consent obtained from patient). Wound prep: Patient was prepped and draped in the usual sterile fashion. Tetanus: Updated today Irrigation Solution: Saline Wound Preparation: Cleansed with chlorhexidine The wound was explored to its base in a bloodless field. Procedure Description: Simple laceration repair skin tear. Wound is approximated and held in place by Dermabond. 5 Steri-Strips were placed as well for additional approximation. Patient tolerated the procedure well with no immediate complications The patient and/or family, caregivers express understanding. The patient and/or family, caregivers agrees with the plan. Shared decision making: I will have a discussion with the patient and or visitors regarding risk/benefits of further testing or admission. They will be made aware of of the risk/benefits inherent in this decision they will be given the opportunity to voice understanding. Total critical care time today provided was at least 0 minutes. This excludes separately billable procedures. Critical care time (if documented) is secondary to the patient having high probability of clinically significant/life threatening deterioration in the patient's condition which required my urgent intervention. Impression: 1. Closed injury 2. Concussion 3. Head laceration Dispo: Discharge home This note was generated with [employer] dictation software. It may contain incorrect words, spelling, and punctuation that were not noted in review of the chart prior to signing. Radiography Diagnostic Testing: Clinical Impression(s) from Imaging Studies Brain CT 07/13/24 05:37 IMPRESSION: Moderate generalized atrophy. Moderate low density bilaterally in the deep white matter. This likely represents chronic small vessel ischemic changes in the deep white matter. Electronically Signed: Merlin Mar MD at 7:05 EDT , Cervical Spine CT 07/13/24 05:37 IMPRESSION: Degenerative changes. No acute fracture or subluxation. Electronically Signed: Merlin Mar MD at 7:07 EDT , Discharge Plan Triage Chief Complaint: Fall ED Provider: Adrian Morales Dx/Rx/DC Orders Clinical Impression: Contusion of face, Face lacerations Instructions: ED Fall with Uncertain Cause, ED Laceration, All Closures Prescriptions: No Action finasteride [Proscar] 5 mg tablet 5 mg PO DAILY aspirin [Adult Low Dose Aspirin] 81 mg tablet,delayed release (DR/EC) 81 mg PO DAILY tamsulosin 0.4 mg capsule 0.4 mg PO QHS gabapentin 100 mg capsule 100 mg PO TID lidocaine 5 % Adhesive Patch,Medicated 2 patch topical DAILY Qty: 0 0RF Protocol: *Topical Application Instructions APPLICATION INSTRUCTIONS: Apply to lumbar spine and right and left paraspinal muscles. multivitamin [Daily Multi-Vitamin] Tablet 1 tab PO DAILY atorvastatin 10 mg tablet 10 mg PO QHS bupropion HCl 150 mg tablet sustained-release 12 hr 150 mg PO BID mirtazapine 45 mg tablet 45 mg PO QHS acetaminophen 325 mg Tablet 650 mg PO Q6H PRN PRN (Reason: Pain 1-10 Or Fever) Qty: 0 0RF sennosides-docusate sodium [Stimulant Laxative Plus] 8.6-50 mg Tablet 2 tab PO BID PRN PRN (Reason: Constipation) Qty: 0 0RF lidocaine 5 % Adhesive Patch,Medicated 1 patch topical DAILY Qty: 0 0RF Protocol: *Topical Application Instructions APPLICATION INSTRUCTIONS: R hip ertapenem 1 gram Recon Soln 1 g IV Q24 Qty: 0 0RF Ensure Plus High Protein 0.08 gram-1.5 kcal/mL Liquid 120 ml PO 4X/DAY Qty: 0 0RF nitroglycerin 0.4 mg tablet, sublingual 0.4 mg SL Q5M PRN (Reason: CHEST PAIN ) Qty: 25 3RF Primary Care Provider: Vishal Antonio Referrals: Vishal Antonio MD [Primary Care Provider] - Activity Restrictions/Additional Instructions: Thank you for trusting us with your care today! Please take Tylenol (2 pills, 650 mg), ibuprofen (2 pills, 400 mg) every 6 hours as needed for pain and fever control. Please keep your wound clean and dry. Please look out for signs of infection which include redness, white-yellow discharge, increasing pain and drainage. Please return to the emergency department if your symptoms change or worsen. Please follow with your primary care physician for further outpatient evaluation and management. Print Language: Singaporean Disposition Disposition: Home, Self Care
--- NOTE | 2024-07-13 05:37 | CT_ITS ---
EXAM: CT CERVICAL SPINE WITHOUT INTRAVENOUS CONTRAST CLINICAL INDICATION: fall, neck pain TECHNIQUE: Helically acquired images were obtained of the cervical spine without intravenous contrast. 2D reformatted images were reviewed. This CT exam was performed using one or more of the following dose reduction techniques: automated exposure control, adjustment of the mA and/or kV according to patient size, and/or use of iterative reconstruction technique. RADIATION DOSE: CTDIvol = 22.61 mGy, DLP = 526.67 mGy-cm COMPARISON: No relevant prior studies available. FINDINGS: VERTEBRAE: Anterior subluxation measuring 3.5 mm at C6-C7 associated with bilateral facet arthropathy. Extensive bilateral facet arthropathy. No fracture. No discrete lytic or blastic abnormality. Normal craniocervical junction and cervicothoracic junction. DISCS/SPINAL CANAL/NEURAL FORAMINA: Diffuse mild degenerative disc disease. No critical stenosis. SOFT TISSUES: Unremarkable. No prevertebral soft tissue swelling. LYMPH NODES: Unremarkable. No cervical adenopathy. LUNG APICES: Unremarkable as visualized. Clear. CT/Spine Cervical without Contras IMPRESSION: Degenerative changes. No acute fracture or subluxation. Electronically Signed: Merlin Mar MD at 7:07 EDT ,
--- NOTE | 2024-07-13 05:37 | CT_ITS ---
EXAM: CT HEAD WITHOUT INTRAVENOUS CONTRAST CLINICAL INDICATION: fall, pain TECHNIQUE: Multiple axial images were obtained of the head without intravenous contrast. This CT exam was performed using one or more of the following dose reduction techniques: automated exposure control, adjustment of the mA and/or kV according to patient size, and/or use of iterative reconstruction technique. RADIATION DOSE: CTDIvol = 44.99 mGy, DLP = 829.85 mGy-cm COMPARISON: 04/14/2024. FINDINGS: BRAIN AND EXTRA-AXIAL SPACES: Moderate generalized atrophy. Moderate low density bilaterally in the deep white matter. No intra- or extra-axial hemorrhage. No evidence of acute infarct. No intracranial mass or mass effect. There is preservation of the dominguez/white matter interface. Posterior fossa structures are unremarkable. No hydrocephalus. Basal cisterns are patent. BONES/JOINTS: Unremarkable. No discrete lytic or blastic abnormalities. SINUSES: Unremarkable as visualized. Clear. MASTOID AIR CELLS: Unremarkable. Clear. ORBITS: Visualized globes, extraocular muscles, optic nerves and retrobulbar fat appear unremarkable. CT/Brain/Head without Contrast IMPRESSION: Moderate generalized atrophy. Moderate low density bilaterally in the deep white matter. This likely represents chronic small vessel ischemic changes in the deep white matter. Electronically Signed: Merlin Mar MD at 7:05 EDT ,
[2024-07-13] MEDS: Acetaminophen 325 MG Tablet 650 MG PO (05:48)
--- OUTSIDE RECORDS SUMMARY | 2024-07-13 05:49 | XMS RPT_ITS | CCD ---
Author Organization [facility] Providers Care Broommaker Name Role Phone Nikolay Villa Unavailable Unavailable Renetta DELGADILLO, Asha Noble Unavailable Unavailable Acacia, RN, Angélica M Unavailable Unavailabl e Ann-Marie Fox Unavailable Ann-Marie Fox Unavailable MD [place], [place] S Unavailable Bradly Condon Y Unavailable Unavailable Nikolay Villa Unavailable Unavailable Ridge RN, Deborah Unavailable Unavailable Vishal Jones MD Primary Care Provider Alphonso SU MD, Clement Unavailable Vishal Jones MD Unavailable Maye Gonzalez MD Unavailable Dayna Mann RN Unavailable Maye Gonzalez MD Unavailable Ridge DELGADILLO, Deborah Unavailable Unavailable Vishal Jones MD Primary Care Provider Alphonso SU MD, Clement Unavailable Vishal Jones MD Unavailable Maye Gonzalez MD Unavailable Dayna Mann RN Unavailable Maye Gonzalez MD Unavailable Vishal Jones MD Primary Care Provider Vishal Jones MD Unavailable Dayna Mann RN Unavailable Ridge DELGADILLO, Deborah Unavailable Unavailable Vishal Jones MD Primary Care Provider Alphonso SU MD, Clement Unavailable Vishal Jones MD Unavailable Carlos SU, Maye Rios Unavailable RNDayna Unavailable Carlos SU, Maye Rios Unavailable Ridge RN, Deborah Unavailable Unavailable Most RN, Dayna Unavailable Roxana Burton Unavailable Unavailabl antoinette Werner MD, Clement Unavailable CHAPINCITO TOMLIN Referring Unavailable PACO, VISHAL A Primary Care Unavailable Carlos SU, Maye Rios Unavailable Carlos SU, Maye Rios Unavailable Catalina Rios RN Unavailable Unavailable Paco SU, Vishal A Primary Care Provider Vishal Jones MD Primary Care Provider Vishal Jones MD Unavailable ASHLEY MARSHALL Referring Unavailable PACO, VISHAL A Primary Care Unavailable PACO, VISHAL A Primary Care Unavailable MASCI, HOWIE A Referring Unavailable MASCI, HOWIE A Referring Unavailable PACO, VISHAL A Primary Care Unavailable ASHLEY MARSHALL Referring Unavailable PACO, VISHAL A Attending Unavailable PACO, VISHAL A Primary Care Unavailable PACO, VISHAL A Primary Care Unavailable REN CHUA Referring Unavailable PACO, VISHAL A Attending Unavailable PACO, VISHAL A Primary Care Unavailable ALLYSON HERNANDEZ Referring Unavailable PACO, VISHAL A Primary Care Unavailable PACO, VISHAL A Referring Unavailable PACO, VISHAL A Primary Care Unavailable PACO, VISHAL A Referring Unavailable PACO, VISHAL A Primary Care Unavailable PACO, VISHAL A Primary Care Unavailable ASHELY MARSHALL Referring Unavailable PACO, VISHAL A Primary Care Unavailable PACO, VISHAL A Attending Unavailable PACO, VISHAL A Referring Unavailable PACO, VISHAL A Primary Care Unavailable PACO, VISHAL A Attending Unavailable PACO, VISHAL A Primary Care Unavailable ASHLEY MARSHALL Attending Unavailable PACO, VISHAL A Primary Care Unavailable MASCI, HOWIE A Referring Unavailable PACO, VISHAL A Referring Unavailable PACO, VISHAL A Primary Care Unavailable PACO, VISHAL A Referring Unavailable PACO, VISHAL A Primary Care Unavailable CHAPINCITO TOMLIN Attending Unavailable PACO, VISAHL A Primary Care Unavailable ALLYSON HERNANDEZ Attending Unavailable PACO, VISHAL A Primary Care Unavailable PACO, VISHAL A Attending Unavailable PACO, VISHAL A Primary Care Unavailable PACO, VISHAL A Primary Care Unavailable HOWIE GREENBERG Referring Unavailable PACO, VISHAL A Primary Care Unavailable REN CHUA Attending Unavailable PACO, VISHAL A Primary Care Unavailable PACO, VISHAL A Primary Care Unavailable JEANNE ONEAL Referring Unavailable PACO, VISHAL A Primary Care Unavailable JEANNE ONEAL Attending Unavailable PACO, VISHAL A Primary Care Unavailable REN CHUA Attending Unavailable CHAPINCITO TOMLIN Attending Unavailable PACO, VISHAL A Primary Care Unavailable EDMAR LIU JR Referring Unavailable PACO, VISHAL A Primary Care Unavailable JORDAN NAJERA Attending Unavailable REN CHUA Referring Unavailable PACO, VISHAL A Primary Care Unavailable REN CHUA Attending Unavailable PACO, VISHAL A Referring Unavailable PACO, VISHAL A Primary Care Unavailable ASHLEY MARSHALL Referring Unavailable PACO, VISHAL A Primary Care Unavailable ASHLEY MARSHALL Referring Unavailable PACO, VISHAL A Primary Care Unavailable PACO, VISHLA A Primary Care Unavailable HOWIE GREENBERG Referring Unavailable ALLYSON HERNANDEZ Referring Unavailable PACO, VISHAL A Primary Care Unavailable Maye Gonzalez MD Unavailable Maye Gonzalez MD Unavailable Medications Current Medications Medication Drug Class(es) Dates Sig (Normalized) Sig (Original) acetaminophen 500 mg oral tablet (20 sources) Start: 04-20-2023 acetaminophen (TYLENOL) 500 mg tablet Take 2 tablets by mouth. 04/20/2023 Active Comment on above: Take 2 tablets by [facility]. aspirin 81 mg delayed release oral tablet (20 sources) Platelet Aggregation Inhibitor, Nonsteroidal Anti-inflammatory Drug Start: 03-26-2022 take 1 tablet by mouth once daily aspirin, enteric coated (ECOTRIN LOW STRENGTH) 81 mg EC tablet Take 1 tablet by mouth once daily. 03/26/2022 Active Start: 04-02-2011 End: 03-21-2022 take 1 tablet by mouth once daily ASPIRIN EC 81 MG TBEC One tablet by mouth daily ASPIRIN [id number] Angélica Roger RN Start: 04-02-2011 take 1 tablet by [facility] once daily ASPIRIN 81 MG TABS One tablet by mouth daily ASPIRIN [id number] Jolynn Raygoza Start: 04-02-2011 take 1 tablet by [facility] every other day ASPIRIN EC 81 MG TBEC One tablet by mouth every other day ASPIRIN [id number] Amrita Osorio NP Comment on above: Take 81 mg by mouth once daily. Take 1 tablet by [facility] once daily. atorvastatin 10 mg oral tablet (20 sources) HMG-CoA Reductase Inhibitor Start: End: take 1 tablet by mouth once daily at bedtime for hyperlipidemia atorvastatin (LIPITOR) 10 mg tablet Take 1 tablet by mouth daily at bedtime. For cholesterol. 90 tablet 1 10/15/2023 Active Comment on above: Take 1 tablet by [facility] daily at bedtime. For cholesterol. 12 hr buPROPion hydrochloride 150 mg extended release oral tablet (20 sources) Aminoketone Start: End: take 1 tablet by mouth twice daily buPROPion SR (WELLBUTRIN SR) 150 mg 12 hr tablet Indications: SALAS (generalized anxiety disorder) take 1 tablet by mouth twice a day 60 tablet 1 10/30/2023 Active Start: 08-01-2023 take 1 tablet by [facility] twice daily buPROPion SR (WELLBUTRIN SR) 150 mg 12 hr tablet Indications: SALAS (generalized anxiety disorder) Take 1 tablet by mouth two times a day. 12 tablet 0 08/01/2023 Active Start: 01-01-2023 End: 08-01-2023 buPROPion SR (WELLBUTRIN SR) 100 mg 12 hr tablet Take one tab once a day for two weeks then go to taking one tablet twice a day 60 tablet 5 01/01/2023 08/01/2023 Discontinued Comment on above: Take one tab once a day for two weeks then go to taking one tablet twice a day Take 1 tablet by [facility] two times a day. take 1 tablet by [facility] twice a day cimetidine 400 mg oral tablet (20 sources) Histamine-2 Receptor Antagonist Start: 01-05-2024 End: 01-05-2024 take 1 tablet by mouth once daily cimetidine (TAGAMET) 400 mg tablet Take 1 tablet by mouth once daily. 90 tablet 1 01/05/2024 Active Comment on above: Take 400 mg by mouth once daily. enteric contrast (will be provided with radiology test) (7 sources) Start: 12-25-2023 End: 12-25-2023 take 1 dose by mouth once, then take 1 dose by mouth once enteric contrast (will be provided with radiology test) Indications: Malignant neoplasm of colon, unspecified part of colon (HCC) Take 1 Each by mouth one time only for [address] ABD/PEL WO Routine order Administer, As Directed One Time Only, via Oral, Rectal, both Oral and Rectal, Enteric Tube, Stoma or Indwelling Catheter, Enteric Contrast as designated per enteric contrast guidelines 1 Each 0 12/25/2023 12/25/2023 Active Start: 04-01-2023 End: 04-02-2023 enteric contrast (will be pr ovided with radiology test) Indications: Malignant neoplasm of rectum (HCC) For CT CHESTABD/PEL W IVCON Routine order Administer, As Directed One Time Only, via Oral, Rectal, both Oral and Rectal, Enteric Tube, Stoma or Indwelling Catheter, Enteric Contrast as designated per enteric contrast guidelines 1 Each 0 04/01/2023 04/02/2023 Start: 04-01-2023 End: 04-02-2023 enteric contrast (will be pr ovided with radiology test) Indications: Malignant neoplasm of rectum (HCC) For CT CHESTABD/PEL W IVCON Routine order Administer, As Directed One Time Only, via Oral, Rectal, both Oral and Rectal, Enteric Tube, Stoma or Indwelling Catheter, Enteric Contrast as designated per enteric contrast guidelines 1 Each 0 04/01/2023 04/02/2023 Active Start: 10-09-2022 End: 10-10-2022 enteric contrast (will be pr ovided with radiology test) Indications: Rectal cancer (HCC) , Abnormal CT of the abdomen For CT CHESTABD/PEL W IVCON Routine order Administer, As Directed One Time Only, via Oral, Rectal, both Oral and Rectal, Enteric Tube, Stoma or Indwelling Catheter, Enteric Contrast as designated per enteric contrast guidelines 1 Each 0 10/09/2022 10/10/2022 Active Start: 03-21-2022 End: 03-22-2022 enteric contrast (will be pr ovided with radiology test) Indications: Rectal cancer (HCC) For CT CHESTABD/PEL W IVCON Routine order Administer, As Directed One Time Only, via Oral, Rectal, both Oral and Rectal, Enteric Tube, Stoma or Indwelling Catheter, Enteric Contrast as designated per enteric contrast guidelines 1 Each 0 03/21/2022 03/22/2022 Active Comment on above: For CT CHESTABD/PEL W IVCON Routine order Administer, As Directed One Time Only, via Oral, Rectal, both Oral and Rectal, Enteric Tube, Stoma or Indwelling Catheter, Enteric Contrast as designated per enteric contrast guidelines Take 1 Each by mouth one time only for [address] ABD/PEL WO Routine order Administer, As Directed One Time Only, via Oral, Rectal, both Oral and Rectal, Enteric Tube, Stoma or Indwelling Catheter, Enteric Contrast as designated per enteric contrast guidelines finasteride 5 mg oral tablet (20 sources) 5-alpha Reductase Inhibitor Start: End: take 1 tablet by mouth once daily finasteride (PROSCAR) 5 mg tablet Take 1 tablet by mouth once daily. 90 tablet 1 01/27/2024 Active Start: 01-27-2018 End: 11-14-2022 finasteride (PROSCAR) 5 mg t ablet Take by mouth. 0 01/27/2018 11/14/2022 Discontinued Comment on above: Take by mouth. gabapentin 100 mg oral capsule (20 sources) Anti-epileptic Agent Start: 05-07-2023 End: 03-16-2024 take 1 capsule by mouth three times daily gabapentin (NEURONTIN) 100 mg capsule Indications: Nerve pain Take 1 capsule by mouth three times a day for 180 days. 90 capsule 5 09/18/2023 Active Start: 09-25-2022 End: 03-26-2024 take 2 capsules by mouth twice daily gabapentin (NEURONTIN) 300 mg capsule Take 2 capsules by mouth twice daily for 360 days. 180 capsule 1 10/28/2022 04/01/2023 Discontinued Start: 11-14-2021 End: 09-25-2022 take 1 capsule by mouth twice daily gabapentin (NEURONTIN) 300 mg capsule Take 1 capsule by mouth twice daily for 90 days. 180 capsule 3 11/14/2021 09/25/2022 Discontinued Start: 04-02-2011 End: 09-06-2014 take 1 tablet by mouth three times daily GABAPENTIN 100 MG CAPS One tablet by mouth three times daily GABAPENTIN [id number] Jolynn Raygoza Start: 04-02-2011 take 1 tablet by [place] three times daily GABAPENTIN 300 MG CAPS One tablet by mouth three times daily GABAPENTIN [id number] Earl Huntley MD Start: 04-02-2011 take 1 tablet by [place] four times daily GABAPENTIN 300 MG CAPS One tablet by mouth four times daily GABAPENTIN [id number] Earl Huntley MD End: 09-06-2014 take 1 tablet by mouth three times daily NEURONTIN CAPS One tablet by mouth three times daily 100mg GABAPENTIN CAPS [id number] Connie Martin PA-C Comment on above: Take 1 capsule by mouth twice daily for 90 days. Take 2 capsules by [facility] twice daily for 360 days. Take 1 capsule by [facility] three times daily for 180 days. Decreased per hospitalist at [facility] due to acute encephalopathy [facility] be [facility]. Take 1 capsule by [facility] three times daily for 180 days. Take 1 capsule by [facility] three times a day for 180 days. iv contrast (will be provided with radiology test) (12 sources) Start: End: inject 1 dose intravenously once iv contrast (will be provided with radiology test) Indications: Vasculopathy , Bilateral carotid artery stenosis , Syncope, unspecified syncope type CTA Head/Neck W No IV access, insert saline lock prior to the sedation, infusion, injection for imaging exam. Discontinue saline lock post exam. If Pt. has a central line or IVAD, may access for administration according to line specific nursing protocol. Once exam is complete flush line and de-access according to line specific nursing protocol in the CT contrast administration guidelines link. 1 Each 0 01/09/2024 01/10/2024 Active Start: 11-12-2023 End: 11-13-2023 iv contrast (will be provide d with radiology test) Indications: Abnormal chest x-ray CT Chest PE -Inject, intravenously, once for 1 dose.No IV access, [...] in the CT contrast administration guidelines link. 1 Each 0 11/12/2023 11/13/2023 Start: 11-12-2023 End: 11-13-2023 iv contrast (will be provide d with radiology test) Indications: Abnormal chest x-ray CT Chest PE -Inject, intravenously, once for 1 dose.No IV access, [...] in the CT contrast administration guidelines link. 1 Each 0 11/12/2023 11/13/2023 Active Start: 04-01-2023 End: 04-02-2023 iv contrast (will be provide d with radiology test) Indications: Malignant neoplasm of rectum (HCC) CT Chest ABD/PEL-Inject, intravenously, once for 1 [...] in the CT contrast administration guidelines link. 1 Each 0 04/01/2023 04/02/2023 Start: 04-01-2023 End: 04-02-2023 iv contrast (will be provide d with radiology test) Indications: Malignant neoplasm of rectum (HCC) CT Chest ABD/PEL-Inject, intravenously, once for 1 [...] in the CT contrast administration guidelines link. 1 Each 0 04/01/2023 04/02/2023 Active Start: 10-09-2022 End: 10-10-2022 iv contrast (will be provide d with radiology test) Indications: Rectal cancer (HCC) , Abnormal CT of the abdomen CT Chest ABD/PEL-Inject, intravenously, once for 1 [...] in the CT contrast administration guidelines link. 1 Each 0 10/09/2022 10/10/2022 Active Start: 03-21-2022 End: 03-22-2022 iv contrast (will be provide d with radiology test) Indications: Rectal cancer (HCC) CT Chest ABD/PEL-Inject, intravenously, once for 1 [...] in the CT contrast administration guidelines link. 1 Each 0 03/21/2022 03/22/2022 Active Comment on above: CT Chest ABD/PEL-Inj ect, intravenously, once for 1 dose.No IV access, [...] in the CT contrast administration guidelines link. CT Chest PE -Inject, intravenously, once for 1 dose.No IV access, [...] in the CT contrast administration guidelines link. ammonium lactate 120 mg/ml topical lotion (20 sources) Start: 10-30-2021 End: 04-28-2022 ammonium lactate (LAC-HYDRIN) 12 % lotion Apply to affected area as needed for Dry Skin. 396 g 5 10/30/2021 04/28/2022 Active Comment on above: Apply to affected ar ea as needed for Dry Skin. lidocaine 0.05 mg/mg medicated patch (20 sources) Antiarrhythmic, Amide Local Anesthetic Start: 01-05-2024 lidocaine (LIDODERM) 5 % Apply 2 Patches as directed every 24 hours. Apply 1 patch to each side of the lower back as directed every 24 hours. 60 Patch 5 01/05/2024 Active Start: 12-29-2023 End: 01-05-2024 apply 1 dose transdermal route every twenty-four hours lidocaine (LIDODERM) 5 % Apply 1 Patch as directed every 24 hours. 30 Patch 5 12/29/2023 01/05/2024 Discontinued Comment on above: Apply 1 Patch as dir ected every 24 hours. methylPREDNISolone (1 source) Corticosteroid Start: 2022 End: 2022 methylPREDNISolone (MEDROL, ELIZABETH,) 4 mg Dose-Pack Follow dosing instructions, take with food. 21 tablet 0 10/09/2022 10/15/2022 Active Comment on above: Follow dosing instru ctions, take with food. mirtazapine 45 mg oral tablet (20 sources) Start: 2023 take 1 tablet by mouth once daily at bedtime mirtazapine (REMERON) 45 mg tablet Indications: Situational depression , Frequent nocturnal awakening Take 1 tablet by mouth daily at bedtime. 90 tablet 09/18/2023 Active Start: 01-30-2022 End: 09-18-2023 take 1 tablet by mouth once daily at bedtime mirtazapine (REMERON) 30 mg tablet Take 1 tablet by mouth daily at bedtime. 90 tablet 1 07/07/2023 09/18/2023 Discontinued Start: 10-25-2021 take 1 tablet by [facility] once daily at bedtime mirtazapine (REMERON) 30 mg tablet Take 1 tablet by mouth daily at bedtime. 30 tablet 5 10/25/2021 Active Comment on above: Take 1 tablet by [facility] daily at bedtime. nitroglycerin 0.4 mg sublingual tablet (20 sources) Nitrate Vasodilator Start: 05-11-2021 End: 10-09-2022 nitroglycerin sublingual (NITROQUICK) 0.4 mg SL tablet Q5M 25 tablet 1 10/09/2022 Active Start: 04-02-2011 NITROSTAT 0.4 MG SUBL 1 tablet under tongue every 5 min up to 3 X NITROGLYCERIN [id number] Earl Huntley MD Comment on above: Q5M sulfamethoxazole 800 mg / trimethoprim 160 mg oral tablet (1 source) Dihydrofolate Reductase Inhibitor Antibacterial, Sulfonamide Antimicrobial Start: 09-13-20 End: 09-18-19 take 1 tablet by mouth twice daily sulfamethoxazole- trimethoprim (BACTRIM DS) 800-160 mg per tablet Take 1 tablet by mouth twice daily for 5 days. 10 tablet 0 09/13/2022 09/18/2022 Active Comment on above: Take 1 tablet by [facility] twice daily for 5 days. tamsulosin hydrochloride 0.4 mg oral capsule (20 sources) alpha-Adrenergic Yesenia Start: 05-20-20 take 1 capsule by mouth once daily at bedtime tamsulosin (FLOMAX) 0.4 mg Take 1 capsule by mouth daily at bedtime. 05/20/2023 Active Start: 08-01-2017 End: 11-14-2022 take 1 tablet by mouth once daily FLOMAX 0.4 MG CAPS One tablet by mouth daily TAMSULOSIN HCL [id number] Asha Jackson RN Comment on above: Take 0.4 mg by mouth once daily. Take 1 capsule by [facility] daily at bedtime. Completed/Discontinued Medications Medication Drug Class(es) Dates Sig (Normalized) Sig (Original) acetaminophen 325 mg / HYDROcodone bitartrate 10 mg oral tablet (20 sources) Opioid Agonist Start: 09-06-2014 End: 01-28-2017 NORCO 10-325 MG TABS as needed as directed HYDROCODONE-ACETAMI NOPHEN [id number] Earl Huntley MD Start: 03-15-2010 End: 03-09-2013 VICODIN 5-500 MG TABS one to two tabs four times a day as needed for pain HYDROCODONE-ACETAMINOPHEN [id number] Earl Huntley MD Start: 03-15-2010 VICODIN 5-500 MG TABS one to two tabs four times a day as needed for pain HYDROCODONE-ACETAMINOPHEN [id number] Flo Latham MD Start: 03-15-2010 VICODIN 5-500 MG TABS one to two tabs four times a day as needed for pain HYDROCODONE-ACETAMINOPHEN [id number] Flo Latham MD Start: 03-15-2010 End: 03-09-2013 VICODIN 5-500 MG TABS one to two tabs four times a day as needed for pain HYDROCODONE-ACETAMINOPHEN [id number] Earl Huntley MD End: 05-18-2014 take 1 tablet by mouth three times daily NORCO 5-325 MG TABS One tablet by mouth three times daily HYDROCODONE-ACETAMINOPHEN [id number] Ingrid R Micah AQUACEL SILVER 4X4 (18 sources) Start: 03-15-2010 End: 03-09-2013 AQUACEL SILVER 4X4 apply gerry ly AQUACEL SILVER 4X4 Earl Huntley MD Start: 03-15-2010 AQUACEL SILVER 4X4 apply daily AQUACEL SILVER 4X4 Flo Latham MD Start: 03-15-2010 AQUACEL SILVER 4X4 apply daily AQUACEL SILVER 4X4 Flo Latham MD Start: 03-15-2010 End: 03-09-2013 AQUACEL SILVER 4X4 apply gerry ly AQUACEL SILVER 4X4 Earl Huntley MD ascorbic acid 500 mg oral tablet (18 sources) Vitamin C Start: 04-02-2011 End: 09-03-2013 take 1 tablet by mouth once daily VITAMIN C 500 MG TABS One tablet by mouth daily in fall ASCORBIC ACID [id number] Jolynn Raygoza atenolol 25 mg oral tablet (20 sources) beta-Adrenergic Yesenia Start: 07-19-2021 End: 12-29-2023 take 0.5 tablet by mouth once daily atenolol (TENORMIN) 25 mg tablet Take 0.5 tablets by mouth once daily. 30 tablet 5 12/08/2021 12/29/2023 Discontinued Start: 03-09-2013 take 1 tablet by [facility] once daily ATENOLOL 25 MG TABS One tablet by mouth daily ATENOLOL [id number] Tito Crane NP Start: 01-14-2012 End: 09-03-2013 take 1 tablet by mouth once daily ATENOLOL 50 MG TABS One tablet by mouth daily ATENOLOL [id number] Earl Huntley MD Comment on above: Take 0.5 tablets by mouth once daily. baclofen 10 mg oral tablet (20 sources) gamma-Aminobutyri c Acid-ergic Agonist Start: 07-29-2022 End: 12-31-2023 take 0.5-1 tablets by mouth every eight hours as needed baclofen (LIORESAL) 10 mg tablet Take 0.5-1 tablets by mouth three times daily as needed. For spasms. 07/29/2022 12/31/2023 Discontinued (Discontinued by another Health Care Provider) Start: 03-12-2022 End: 09-25-2022 take 1 tablet by mouth once daily at bedtime baclofen (LIORESAL) 5 mg tablet Take 1 tablet by mouth daily at bedtime. 15 tablet 0 03/12/2022 09/25/2022 Discontinued Comment on above: Take 1 tablet by [facility] daily at bedtime. Take 0.5-1 tablets b y mouth three times daily as needed. For spasms. benzonatate 100 mg oral capsule (14 sources) Non-narcotic Antitussive Start: 023 End: take 2 capsules by mouth every eight hours as needed benzonatate (TESSALON PERLES) 100 mg capsule Take 2 capsules by mouth three times daily as needed for cough. 30 capsule 0 05/29/2023 07/24/2023 Discontinued Comment on above: Take 2 capsules by m out three times daily as needed for cough. 168 hr buprenorphine 0.01 mg/hr transdermal system (20 sources) Partial Opioid Agonist Start: 023 End: 024 apply 1 dose transdermal route every week buprenorphine (BUTRANS) 10 mcg/hour Apply 1 Patch as directed one time a week for 7 days. Per pain management. 05/07/2023 12/31/2023 Discontinued (Discontinued by another Health Care Provider) Start: 02-14-2022 End: 05-07-2023 buprenorphine 7.5 mcg/hour p twk apply 1 patch to CLEAN, DRY, AND INTACT SKIN and REPLACE every 7 days 0 02/14/2022 05/07/2023 Discontinued (Changing Therapy/Dosage Form) Start: 05-08-2021 apply 1 dose transde rmal route every week buprenorphine 7.5 mcg/hour ptwk Apply 1 Patch as directed one time a week. 0 05/08/2021 Active Comment on above: Apply 1 Patch as dir ected one time a week. apply 1 patch to [place] AN, DRY, AND INTACT SKIN and REPLACE every 7 days Apply 1 Patch as dir ected one time a week for 7 days. Per pain management. cefadroxil 500 mg oral capsule (11 sources) Cephalosporin Antibacterial Start: End: take 1 capsule by mouth twice daily cefADROxil (DURICEF) 500 mg capsule Take 1 capsule by mouth twice daily. 20 capsule 0 07/24/2022 09/25/2022 Discontinued (Course of therapy completed) Comment on above: Take 1 capsule by [facility] twice daily. cephalexin 500 mg oral capsule (2 sources) Cephalosporin Antibacterial Start: take 1 tablet by mouth three times daily cephALEXin (KEFLEX) 500 mg capsule TAKE ONE(1) TABLET PO THREE TIMES DAILY X10 DAYS. 30 capsule 0 07/24/2023 Active Comment on above: TAKE ONE(1) TABLET P O THREE TIMES DAILY X10 DAYS. cholecalciferol 0.05 mg oral tablet (18 sources) Vitamin D Start: End: VITAMIN D 2000 UNIT TABS 5000 units One tablet by mouth daily CHOLECALCIFEROL [id number] Earl Huntley MD citric acid 94522 mg / magnesium oxide 3500 mg / picosulfate sodium 10 mg powder for oral solution (9 sources) Calculi Dissolution Agent, Anti-coagulant Start: End: PREPOPIK 10-3.5-12 MG-GM-GM PACK use as per instructions SOD PICOSULFATE-MAG OX-CIT ACD [id number] Fatimah Galicia Shin cyclobenzaprine (20 sources) Muscle Relaxant Start: 015 End: 016 FLEXERIL 10 MG TABS as needed CYCLOBENZAPRINE HCL Amrita Osorio NP Start: 08-28-2015 FLEXERIL 10 MG TABS as needed CYCLOBENZAPRINE HCL Connie Martin PA-C Start: 08-28-2015 FLEXERIL 10 MG TABS as needed CYCLOBENZAPRINE HCL Connie Martin PA-C Start: 08-28-2015 End: 07-25-2016 FLEXERIL 10 MG TABS as neede d CYCLOBENZAPRINE HCL Amrita Osorio NP Start: 02-04-2012 take 1 tablet by [facility] once daily FLEXERIL TABS One tablet by mouth daily CYCLOBENZAPRINE HCL TABS [id number] Emma Powell Start: 02-04-2012 End: 05-18-2014 take 1 tablet by mouth once daily FLEXERIL TABS One tablet by mouth daily CYCLOBENZAPRINE HCL TABS [id number] Chas Butler Start: 02-04-2012 take 1 tablet by charlotte th once daily FLEXERIL TABS One tablet by mouth daily CYCLOBENZAPRINE HCL TABS [id number] Emma Powell Start: 02-04-2012 End: 05-18-2014 take 1 tablet by mouth once daily FLEXERIL TABS One tablet by mouth daily CYCLOBENZAPRINE HCL TABS [id number] Chas Butler diclofenac sodium 0.01 mg/mg topical gel (8 sources) Nonsteroidal Anti-inflammatory Drug Start: 08-18-2020 apply 2 g topically every six hours as needed diclofenac sodium (VOLTAREN) 1 % topical gel Apply 2 g to affected area four times daily as needed (pain, discomfort). 0 08/18/2020 Active Comment on above: Apply 2 g to affecte d area four times daily as needed (pain, discomfort). diphenhydrAMINE hydrochloride 25 mg oral tablet (18 sources) Histamine-1 Receptor Antagonist Start: 09-06-2014 End: 03-09-2015 DIPHENHYDRAMINE HCL 25 MG TABS as needed DIPHENHYDRAMINE HCL [id number] Connie Martin PA-C docusate sodium 100 mg oral tablet (20 sources) Start: 09-06-2014 End: 08-28-2015 take 1 tablet by mouth once daily STOOL SOFTENER 100 MG TABS One tablet by mouth daily DOCUSATE SODIUM [id number] Connie Martin PA-C Start: 09-03-2013 End: 05-18-2014 take 1 tablet by mouth twice daily DOCUSATE SODIUM 100 MG TABS One tablet by mouth twice daily DOCUSATE SODIUM [id number] Connie Martin PA-C docusate sodium 50 mg / sennosides, correction 8.6 mg oral tablet (11 sources) Start: 11-19-2023 End: 12-31-2023 take 2 tablets by mouth once senna-docusate (SENNA-S) 8.6-50 mg per tablet Take 2 tablets by mouth. 0 11/19/2023 12/31/2023 Discontinued (Discontinued by another Health Care Provider) Comment on above: Take 2 tablets by [facility]. doxycycline hyclate 100 mg oral tablet (13 sources) Tetracycline-c lass Drug Start: 11-12-2023 End: 11-22-2023 take 1 tablet by mouth twice daily doxycycline (VIBRA-TABS) 100 mg tablet Indications: Acute cough , Lower resp. tract infection Take 1 tablet by mouth two times a day for 10 days. 20 tablet 11/12/2023 11/22/2023 Comment on above: Take 1 tablet by [facility] two times a day for 10 days. 72 hr fentaNYL 0.05 mg/hr transdermal system (20 sources) Opioid Agonist Start: 07-08-2012 FENTANYL 50 MC G/HR PT72 Remove & reapply every 3 days FENTANYL [id number] Asha Jackson RN Start: 02-04-2012 FENTANYL 25 MC G/HR PT72 FENTANYL [id number] Emma Powell End: 08-28-2015 FENTANYL 50 MCG/HR PT72 Damon ve & reapply every 2 days FENTANYL [id number] Chas Esposito Carrie 24 hr fesoterodine fumarate 4 mg extended release oral tablet (18 sources) Start: 03-08-2014 End: 05-18-2014 take 1 tablet by mouth once daily TOVIAZ 4 MG [id number] One tablet by mouth daily or as directed FESOTERODINE FUMARATE [id number] Earl Huntley MD hydrOXYzine hydrochloride 25 mg oral tablet (20 sources) Antihistamine Start: 05-07-2023 End: 12-31-2023 take 0.5 tablet by mouth three times daily as needed hydrOXYzine HCl (ATARAX) 25 mg tablet Take 0.5 tablets by mouth three times a day as needed. 60 tablet 1 10/15/2023 12/31/2023 Discontinued (Discontinued by another Health Care Provider) Start: 03-12-2022 End: 05-07-2023 take 1 tablet by mouth every eight hours as needed hydrOXYzine HCl (ATARAX) 25 mg tablet Take 1 tablet by mouth three times daily as needed. 60 tablet 1 07/29/2022 05/07/2023 Discontinued (Adjust Sig - Block E-Cancel) Start: 10-29-2021 End: 12-08-2021 take 1 tablet by mouth every eight hours as needed hydrOXYzine HCl (ATARAX) 10 mg tablet Take 1 tablet by mouth three times daily as needed. 60 tablet 5 12/08/2021 Active Comment on above: Take 1 tablet by charlotte three times daily as needed. Take 0.5 tablets by mouth three times daily as needed. Take 0.5 tablets by mouth three times a day as needed. imipramine hydrochloride 50 mg oral tablet (20 sources) Tricyclic Antidepressant Start: 09-03-20 13 End: 07-25-20 16 take 1 tablet by mouth once daily IMIPRAMINE HCL 50 MG TABS One tablet by mouth daily IMIPRAMINE HCL [id number] Bradly Condon 24 hr isosorbide mononitrate 60 mg extended release oral tablet (20 sources) Nitrate Vasodilator Start: 04-02-20 11 End: 01-09-20 24 take 1 tablet by mouth once daily ISOSORBIDE MONONITRATE ER 60 MG [id number] One tablet by mouth daily ISOSORBIDE MONONITRATE [id number] Earl Huntley MD Comment on above: Take 60 mg by mouth once daily. levoFLOXacin 500 mg oral tablet (18 sources) Quinolone Antimicrobial Start: 03-15-20 10 End: 03-09-20 13 LEVAQUIN 500 MG TABS one tab daily LEVOFLOXACIN [id number] Flo Latham MD LORazepam 1 mg oral tablet (20 sources) Benzodiazepine Start: 10-21-19 22 End: 05-07-20 23 take 1 tablet by mouth every twenty-four hours as needed LORazepam (ATIVAN) 1 mg tablet Take 1 mg by mouth at bedtime as needed. 0 10/21/2021 05/07/2023 Discontinued Comment on above: Take by mouth. Take 1 mg by mouth a t bedtime as needed. melatonin 5 mg oral tablet (18 sources) Start: 09-06-20 14 End: 03-09-20 15 take 1 tablet by mouth once daily as needed MELATONIN 5 MG TABS One tablet by mouth daily as needed MELATONIN [id number] Connie Martin PA-C morphine sulfate 15 mg extended release oral tablet (18 sources) Opioid Agonist Start: 08-28-20 15 End: 03-05-20 16 take 1 tablet by mouth twice daily MORPHINE SULFATE ER 15 MG CR-TABS One tablet by mouth twice daily MORPHINE SULFATE [id number] Earl Huntley MD Naproxen (20 sources) Nonsteroidal Anti-inflammatory Drug End: 05-20-20 take 1 tablet by mouth once daily as needed naproxen (NAPROSYN ORAL) Take 1 tablet by mouth once daily as needed. 0 05/20/2023 Discontinued take 1 tablet by charlotte th once daily as needed naproxen (NAPROSYN ORAL) Take 1 tablet b y mouth once daily as needed. 0 Active Comment on above: Take 1 tablet by charlotte th once daily as needed. nitrofurantoin, macrocrystals 25 mg / nitrofurantoin, monohydrate 75 mg oral capsule (9 sources) Nitrofuran Antibacterial Start: 10-27-19 End: 11-01-19 24 take 1 capsule by mouth twice daily nitrofurantoin monohydrate and macrocrystal (MACROBID) 100 mg capsule Indications: Urinary tract infection with hematuria, site unspecified Take 1 capsule by mouth two times a day for 5 days. 10 capsule 10/27/2023 11/01/2023 Start: 09-10-2022 End: 09-13-2022 take 1 capsule by mouth twice daily nitrofurantoin monohydrate and macrocrystal (MACROBID) 100 mg capsule Indications: Urinary frequency , Burning with urination Take 1 capsule by mouth twice daily for 7 days. 14 capsule 0 09/10/2022 09/13/2022 Discontinued Comment on above: Take 1 capsule by mo ut twice daily for 7 days. Take 1 capsule by mo ut two times a day for 5 days. 24 hr oxybutynin chloride 10 mg extended release oral tablet (20 sources) Cholinergic Muscarinic Antagonist Start: 2 End: 4 take 1 tablet by mouth once daily oxybutynin ER (DITROPAN XL) 10 mg 24 hr tablet Take 10 mg by mouth once daily. 07/29/2022 12/25/2023 Discontinued (Other) Start: 04-02-2011 End: 01-14-2012 take 2 tablets by mouth at bedtime OXYBUTYNIN CHLORIDE 5 MG TABS 2 tablets by mouth at bedtime OXYBUTYNIN CHLORIDE [id number] Jolynn Raygoza Comment on above: Take 10 mg by mouth once daily. psyllium 3400 mg powder for oral suspension (8 sources) Start: 03-24-2020 Psyllium Seed-Sucrose (FIBER SMOOTH) powd [The details of the medication are not available because there are pending changes by a home health clinician.] 1 Each 2 03/24/2020 Active Comment on above: [The details of the medication are not available because there are pending changes by a home health clinician.] senokot-s (4 sources) Start: 09-06-2014 take 1 tablet by mouth once daily STOOL SOFTENER 100 MG TABS One tablet by mouth daily DOCUSATE SODIUM [id number] Connie Martin PA-C Start: 09-06-2014 End: 08-28-2015 take 1 tablet by mouth once daily STOOL SOFTENER 100 MG TABS One tablet by mouth daily DOCUSATE SODIUM [id number] Connie Martin PA-C simvastatin 40 mg oral tablet (20 sources) HMG-CoA Reductase Inhibitor Start: 01-02-2018 take 1 tablet by mouth once daily at bedtime simvastatin (ZOCOR) 40 mg tablet Take 1 tablet by mouth daily at bedtime. 30 tablet 0 01/02/2018 Active Start: 01-14-2012 take 1 tablet by charlotte th once daily ZOCOR 40 MG TABS One tablet by mouth daily SIMVASTATIN [id number] Tito Crane [employer] Comment on above: Take 1 tablet by charlotte th daily at bedtime. solifenacin succinate 10 mg oral tablet (20 sources) Cholinergic Muscarinic Antagonist Start: 3 End: 4 take 0.5 tablet by mouth once daily solifenacin 10 mg tablet Take 0.5 tablets by mouth once daily. 08/26/2023 12/25/2023 Discontinued (Other) End: 05-20-2023 take 1 tablet by mouth once daily solifenacin 10 mg tablet Take 10 mg by mouth once daily. 0 05/20/2023 Discontinued Comment on above: Take 10 mg by mouth once daily. Take 0.5 tablets by mouth once daily. 24 hr tolterodine tartrate 2 mg extended release oral capsule (3 sources) Cholinergic Muscarinic Antagonist Start: 7 take 1 tablet by mouth at bedtime DETROL LA 2 MG [id number] One tablet by mouth at bedtime. TOLTERODINE TARTRATE [id number] Asha Jackson RN traMADol hydrochloride 50 mg oral tablet (20 sources) Opioid Agonist Start: 1 take 2 tablets by mouth every twelve hours as needed traMADol (ULTRAM) 50 mg tablet Take 100 mg by mouth twice daily as needed. 0 11/22/2020 Active Start: 04-02-2011 End: 09-03-2013 take 1 tablet by mouth twice daily TRAMADOL HCL 50 MG TABS One tablet by mouth twice daily TRAMADOL HCL [id number] Jolynn Raygoza End: 03-09-2013 take 1 tablet by mouth three times daily ULTRAM TABS One tablet by mouth three times daily TRAMADOL HCL TABS [id number] Earl Huntley MD End: 03-09-2013 take 1 tablet by mouth three times daily ULTRAM TABS One tablet by mouth three times daily TRAMADOL HCL TABS [id number] Earl Huntley MD take 1 tablet by charlotte th three times daily ULTRAM TABS One tablet by mouth three times daily TRAMADOL HCL TABS [id number] Ingrid Obrien take 1 tablet by charlotte th three times daily ULTRAM TABS One tablet by mouth three times daily TRAMADOL HCL TABS [id number] Ingrid Obrien End: 03-09-2013 take 1 tablet by mouth three times daily ULTRAM TABS One tablet by mouth three times daily TRAMADOL HCL TABS [id number] Earl Huntley MD Comment on above: Take 100 mg by mouth twice daily as needed. traZODone hydrochloride 50 mg oral tablet (20 sources) Serotonin Reuptake Inhibitor Start: 2 End: 3 take 1 tablet by mouth once daily at bedtime traZODone (DESYREL) 50 mg tablet Take 1 tablet by mouth daily at bedtime. 90 tablet 1 07/29/2022 11/14/2022 Discontinued Start: 10-09-2021 take 1 tablet by charlotte th once daily at bedtime traZODone (DESYREL) 50 mg tablet Take 1 tablet by mouth daily at bedtime. 90 tablet 1 10/09/2021 Active Comment on above: Take 1 tablet by charlotte th daily at bedtime. vitamin e 268 mg oral capsule (20 sources) End: 09-25-2022 take 1 capsule by mouth once daily alpha tocopheryl acetate (VITAMIN E) 400 unit capsule Take 400 Units by mouth once daily. 0 09/25/2022 Discontinued take 1 capsule by mouth once gerry ly alpha tocopheryl acetate (VITAMIN E) 400 unit capsule Take 400 Units by mouth once daily. 0 Active Comment on above: Take 400 Units by mo uth once daily. Problems Active Problems Problem Classification Problem Date Documented Da te Episodic/Chronic Adjustment disorders (20 sources) Reactive depression (situational); Translations: [Adjustment disorder with depressed mood] Onset: 08-17-2019 10-25-2021 Chronic Alcohol-related disorders (4 sources) Alcohol dependence; Translations: [Alcohol dependence with [...] Translations: [Unspecified dementia without behavioral disturbance] Onset: 08-26-2023 03-27-2023 Chronic Disorders of lipid metabolism (20 sources) Hyperlipidemia; Translations: [Hyperlipidemia, unspecified] Onset: 04-02-2011 04-02-2011 Chronic E Codes: Fall (1 source) Fall; Translations: [Unspecified fall, initial encounter] Episodic Essential hypertension (20 sources) Hypertensive disorder; Translations: [Essential (primary) hypertension] Onset: 04-02-2011 Resolved: 02-23-2016 04-02-2011 Chronic Fever of unknown origin (1 source) Fever; Translations: [Fever, unspecified] Episodic Fracture of upper limb (2 sources) Closed fracture of styloid process of ulna; Translations: [Nondisplaced fracture of left ulna styloid process, initial encounter for closed fracture] 05-07-2023 Episodic Genitourinary symptoms and ill-defined conditions (20 sources) Incontinence; Translations: [Mixed incontinence] Onset: 02-16-2020 02-16-2020 Chronic Hyperplasia of prostate (20 sources) Benign prostatic hypertrophy with outflow obstruction; Translations: [Benign prostatic hyperplasia with lower urinary tract symptoms] 11-30-2020 Chronic Miscellaneous mental health disorders (20 sources) Primary insomnia; Translations: [Primary insomnia] Onset: 01-02-2021 01-02-2021 Chronic Occlusion or stenosis of precerebral arteries (20 sources) Bilateral stenosis of carotid arteries; Translations: [Occlusion and stenosis of bilateral carotid arteries] Onset: 02-04-2022 02-04-2022 Chronic Osteoarthritis (20 sources) Arthritis of right hip; Translations: [Unilateral primary osteoarthritis, right hip] Onset: 09-25-2017 09-25-2017 Chronic Other aftercare (2 sources) Polypharmacy ; Translations: [Other prison (current) drug therapy] 08-26-2023 Episodic Other circulatory disease (1 source) Vascular disorder; Translations: [Unspecified disorder of circulatory system] 01-30-2024 Episodic Other circulatory disease (1 source) Orthostatic hypotension; Translations: [Orthostatic hypotension] 02-06-2024 Episodic Other diseases of kidney and ureters (1 source) Renal impairment; Translations: [Disorder of kidney and ureter, unspecified] 12-31-2023 Episodic Other gastrointestinal disorders (20 sources) Colostomy present; Translations: [Encounter for attention to colostomy] Onset: 09-25-2017 09-25-2017 Chronic Other gastrointestinal disorders (20 sources) Ileostomy present; Translations: [Ileostomy status] Onset: 06-13-2021 06-13-2021 Chronic Other hereditary and degenerative nervous system [...] initial encounter] Episodic Other lower respiratory disease (3 sources) Cough; Translations: [Acute cough] 05-29-2023 Episodic Other lower respiratory disease (1 source) Lower respiratory tract infection; Translations: [Unspecified acute lower respiratory infection] 11-12-2023 Episodic Other nervous system disorders (20 sources) Right tarsal tunnel syndrome; Translations: [Tarsal tunnel syndrome, right lower limb] Onset: 06-23-2019 06-23-2019 Chronic Other nervous system disorders (1 source) Disorder of brain; Translations: [Encephalopathy, unspecified] 05-07-2023 Chronic Other nervous system disorders (3 sources) Impaired cognition; Translations: [Other symptoms and signs involving cognitive functions and awareness] Episodic Other non-traumatic joint disorders (1 source) Effusion of joint of left elbow; Translations: [Effusion, left elbow] 08-01-2023 Episodic Other non-traumatic joint disorders (2 sources) Pain in right hip joint; Translations: [Pain in right hip] 10-28-2023 Episodic Other nutritional; endocrine; and metabolic disorders (20 sources) Hypercalcemia; Translations: [Hypercalcemia] Onset: 12-31-2023 12-31-2023 Chronic Other nutritional; endocrine; and metabolic disorders (1 source) Hypercalcemia; Translations: [Hypercalcemia] Onset: 12-31-2023 Chronic Other screening for suspected conditions (not mental disorders or infectious disease) (3 sources) Computed tomography result abnormal; Translations: [Abnormal findings on diagnostic imaging of other specified body structures] Onset: 11-13-2023 Chronic Other screening for suspected conditions (not mental disorders or infectious disease) (20 sources) Encounter for screening for malignant neoplasm of colon; Translations: [Abnormal result of cardiovascular function study, unspecified] Onset: 04-02-2011 Resolved: 02-23-2016 05-18-2014 Episodic Other upper respiratory infections (3 sources) Viral upper respiratory tract infection; Translations: [Acute upper respiratory infection, unspecified] Onset: 11-12-2023 05-29-2023 Episodic Pulmonary heart disease (20 sources) Chronic pulmonary embolism; Translations: [Chronic pulmonary embolism] Onset: 11-13-2023 11-13-2023 Chronic Pulmonary heart disease (2 sources) Septic pulmonary embolism; Translations: [Septic pulmonary embolism without acute cor pulmonale] 11-13-2023 Episodic Residual codes; unclassified (20 sources) Behavior [...] malignant neoplasm of intrapelvic lymph nodes] Chronic Skin and subcutaneous tissue infections (1 source) Cellulitis of skin; Translations: [Cellulitis, unspecified] 05-07-2023 Episodic Spondylosis; intervertebral disc disorders; other back problems (20 sources) Lumbar arthritis; Translations: [Spondylosis without myelopathy or radiculopathy, lumbar region] Onset: 09-25-2017 09-24-2019 Chronic Unclassified (4 sources) Long-term drug therapy; Translations: [Other prison (current) drug therapy] Onset: 04-02-2011 04-02-2011 Unclassified (1 source) [place] Onset: 11-13-2023 Unclassified (1 source) Acute cough; Translations: [Acute cough] Onset: 11-12-2023 Past or Other Problems Problem Classification Problem Date Documented Da te Episodic/Chronic Abdominal hernia (20 sources) Parastomal hernia; Translations: [Parastomal hernia without obstruction or gangrene] Onset: 12-18-2020 09-24-2021 Episodic Acute and unspecified renal failure (3 sources) Acute renal failure syndrome; Translations: [Acute kidney failure, unspecified] Onset: 12-31-2023 12-31-2023 Episodic Administrative/social admission (20 sources) Advance directive discussed with patient; Translations: [Other specified counseling] Onset: 03-14-2022 03-14-2022 Episodic Aspiration pneumonitis; food/vomitus (20 sources) Aspiration pneumonitis; Translations: [Pneumonitis due to inhalation of food and vomit] Onset: 07-03-2017 Resolved: 07-10-2017 07-10-2017 Episodic Attention-deficit, conduct, and disruptive behavior disorders (20 sources) Acting out - mental defense mechanism; Translations: [Other symptoms and signs involving appearance and behavior] Onset: 12-25-2023 12-25-2023 Episodic Biliary tract disease (20 sources) Cholelithiasis [...] coronary angioplasty status] Onset: 04-02-2011 04-02-2011 Episodic Deficiency and other anemia (1 source) Anemia, unspecified; Translations: [Anemia, unspecified type] Onset: 01-09-2024 Episodic Diabetes mellitus without complication (20 sources) High hemoglobin A1c level; Translations: [Other abnormal glucose] Onset: 07-30-2018 07-30-2018 Episodic Fluid and electrolyte disorders (4 sources) Hyperkalemia; Translations: [Hyperkalemia] Onset: 01-13-2024 Episodic Genitourinary symptoms and ill-defined conditions (4 sources) Dysuria; Translations: [Dysuria] Onset: 10-27-2023 Episodic Intestinal obstruction without hernia (20 sources) Intestinal obstruction; Translations: [Unspecified intestinal obstruction, unspecified as to partial versus complete obstruction] Onset: 06-30-2017 Resolved: 07-10-2017 07-10-2017 Episodic Malaise and fatigue (20 sources) Asthenia; Translations: [Weakness] Onset: 06-18-2019 06-18-2019 Episodic Mycoses (20 sources) Onychomycosis; Translations: [Tinea unguium] Onset: 01-30-2021 01-30-2021 Episodic Nutritional deficiencies (20 sources) Malnutrition (calorie); Translations: [Moderate protein-calorie malnutrition] Onset: 08-20-2020 Resolved: 12-08-2021 08-20-2020 Chronic Open wounds of extremities (9 sources) Laceration with foreign body of unspecified hand, initial encounter; Translations: [Open wound of hand except finger(s) alone, complicated] Onset: 03-15-2010 03-22-2010 Episodic Other aftercare (14 sources) Long-term drug therapy; Translations: [Other prison (current) drug therapy] Onset: 04-02-2011 02-23-2016 Episodic Other aftercare (20 sources) Patient encounter status; Translations: [Other prison (current) drug therapy] Onset: 07-11-2021 07-11-2021 Episodic Other circulatory disease (1 source) Unspecified disorder of circulatory system; Translations: [Vasculopathy] Onset: 01-30-2024 Episodic Other connective tissue disease (20 sources) [...] in right leg] Onset: 08-19-2022 Episodic Other diseases of kidney and ureters (1 source) Disorder of kidney and ureter, unspecified; Translations: [Renal insufficiency] Onset: 01-09-2024 Episodic Other gastrointestinal disorders (1 source) Other fecal abnormalities; Translations: [Green stool] Onset: 09-18-2023 Episodic Other lower respiratory disease (1 source) Unspecified acute lower respiratory infection; Translations: [Lower resp. tract infection] Onset: 11-12-2023 Episodic Other non-traumatic joint disorders (9 sources) Hip pain; Translations: [Pain in unspecified hip] Onset: 02-04-2012 02-04-2012 Episodic Other non-traumatic joint disorders (1 source) Pain in right hip; Translations: [Pain of right hip] Onset: 10-29-2023 Episodic Other non-traumatic joint disorders (1 source) Effusion, left elbow; Translations: [Elbow effusion, left] Onset: 08-01-2023 Episodic Other nutritional; endocrine; and metabolic disorders (15 sources) Finding of body mass index; Translations: [Body mass index (BMI) 27.0-27.9, adult] Onset: 03-08-2014 08-28-2015 Episodic Other skin disorders (9 sources) Other specified disorders of the skin and subcutaneous tissue; Translations: [Other specified dermatoses] Onset: 03-29-2010 04-05-2010 Episodic Phlebitis; thrombophlebitis and thromboembolism (20 sources) H/O: Deep vein thrombosis; Translations: [Personal history of other venous thrombosis and embolism] Onset: 09-25-2017 02-16-2020 Episodic Pneumonia (except that caused by tuberculosis or sexually transmitted disease) (20 sources) Pneumonia; Translations: [Pneumonia, unspecified organism] Onset: 07-19-2017 Resolved: 07-19-2017 07-19-2017 Episodic Residual codes; unclassified (7 sources) Family [...] specified health status] Onset: 09-25-2022 09-25-2022 Episodic Residual codes; unclassified (20 sources) Alcoholism; Translations: [Alcohol use disorder] Onset: 10-15-2023 10-15-2023 Episodic Residual codes; unclassified (20 sources) Inappropriate sexual behavior; Translations: [Other problems related to lifestyle] Onset: 01-13-2024 01-13-2024 Episodic Respiratory failure; insufficiency; arrest (adult) (20 sources) Acute respiratory failure; Translations: [Acute respiratory failure with hypoxia] Onset: 07-05-2017 Resolved: 07-10-2017 07-10-2017 Episodic Spondylosis; intervertebral disc disorders; other back problems (20 sources) Lumbar radiculopathy; Translations: [Low back pain] Onset: 02-04-2012 02-04-2012 Episodic Syncope (2 sources) Syncope; Translations: [Syncope and collapse] Onset: 01-30-2024 01-30-2024 Episodic Unclassified (9 sources) Body mass index (BMI) 26.0-26.9, adult; Translations: [Family history of ischemic heart disease and other diseases of the circulatory system] Onset: 03-29-2010 03-08-2014 Episodic Unclassified (4 sources) Preoperative cardiovascular examination ; Translations: [Encounter for preprocedural cardiovascular examination] Onset: 04-02-2011 Resolved: 02-23-2016 02-23-2016 Urinary tract infections (4 sources) Acute cystitis; Translations: [Acute cystitis with hematuria] Onset: 10-27-2023 Episodic Results Test Name Value Interpretation Reference Range [facility]24 CNPN Normal [facility] CNPNon 05-07-2024 CNPN Normal [facility] CNPNon 05-06-2024 CNPN Normal [facility] CNPNon 05-03-2024 CNPN Normal [facility] CNPNon 05-01-2024 CNPN Normal [facility] CNPNon 04-30-2024 CNPN Normal [facility] CNPNon 04-23-2024 CNPN Normal [facility] CNPNon 04-19-2024 CNPN Normal [facility] CNPNon 04-15-2024 CNPN Normal [facility] CNPNon 04-14-2024 CNPN Normal [facility] CNPNon 04-08-2024 CNPN Normal [facility] CNPNon 02-20-2024 CNPN Normal [facility] CNOVon 02-06-2024 CNOV Normal [facility] CNPNon 02-05-2024 CNPN Normal [facility] CNPNon 01-30-2024 CNPN Normal [facility] CT Neck W contrast Britt - * * *Final Report* * * DATE OF EXAM: Jan 30 2024 3:12PM [facility] 0024 - CTA NECK W IVCON / PROCEDURE REASON: multiple diagnoses * * * * Physician Interpretation * * * * EXAMINATION: CTA NECK W IVCON, CTA HEAD W IVCON HISTORY: Syncope. Known carotid artery stenosis. TECHNIQUE: Spiral high resolution axial images were obtained through the head, neck and superior mediastinum following bolus administration of intravenous contrast for CT angiography. 3D maximum intensity projection images were created, reviewed and archived . MQ: CTAHN_4 Contrast: 85 mL Omnipaque [address] Radiation dose: Integrated Dose-Length Product (DLP) for this visit = 761 mGy*cm. CT Dose Reduction Employed: Automated exposure control(AEC) and iterative recon COMPARISON: None. RESULT: BRAIN: Evaluation of the individual slices of the CTA demonstrates no evidence of an acute stroke. ASPECT Score = 10 Hemorrhage: No evidence of acute intracranial hemorrhage. ECASS hemorrhagic transformation score: Not Applicable NECK: Soft tissues: The soft tissue planes are maintained throughout. No evidence of a soft tissue mass in the neck or superior mediastinum. No significant lymphadenopathy is seen. Spine: Alignment is normal. Moderate degenerative changes are present. Lung apices: The visualized lung apices are clear. CT ARTERIOGRAM: Extracranial Circulation: Aortic Arch: The innominate artery and left common carotid artery originate from a common trunk, a normal variant. Scattered partially calcified atherosclerotic plaque in the aortic arch. Carotid Stenosis: Right Common: No significant stenosis. Right Internal Carotid Plaque: Moderate partially calcified circumferential atherosclerotic plaque. Right Internal Carotid Stenosis (% by NASCET Criteria): 50% Left Common: No significant stenosis. Left Internal Carotid Plaque: Mild plaque formation. 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 Intracranial Circulation: Anterior Circulation: Patent bilateral intracranial ICAs, ACAs, and MCAs. No aneurysm is identified. Vertebrobasilar Circulation: Patent bilateral V4 vertebral artery segments. The nondominant right vertebral artery terminates as the right PICA. Basilar artery and major branch vessels are patent. Both char puller are patent with conventional origins bilaterally. Dural venous sinuses and major deep draining veins are grossly patent. Deli/Bakery Associate (topogram) images: No significant findings. DIVISION OF RADIOLOGY Provider, [facility] [place] - 01/30/2024 * * *Final Report* * * DATE OF EXAM: Jan 30 2024 3:12PM [facility] 0024 - CTA NECK W IVCON / PROCEDURE REASON: multiple diagnoses * * * * Physician Interpretation * * * * EXAMINATION: CTA NECK W IVCON, CTA HEAD W IVCON HISTORY: Syncope. Known carotid artery stenosis. TECHNIQUE: Spiral high resolution axial images were obtained through the head, neck and superior mediastinum following bolus administration of intravenous contrast for CT angiography. 3D maximum intensity projection images were created, reviewed and archived . MQ: CTAHN_4 Contrast: 85 mL Omnipaque [address] Radiation dose: Integrated Dose-Length Product (DLP) for this visit = 761 mGy*cm. CT Dose Reduction Employed: Automated exposure control(AEC) and iterative recon COMPARISON: None. RESULT: BRAIN: Evaluation of the individual slices of the CTA demonstrates no evidence of an acute stroke. ASPECT Score = 10 Hemorrhage: No evidence of acute intracranial hemorrhage. ECASS hemorrhagic transformation score: Not Applicable NECK: Soft tissues: The soft tissue planes are maintained throughout. No evidence of a soft tissue mass in the neck or superior mediastinum. No significant lymphadenopathy is seen. Spine: Alignment is normal. Moderate degenerative changes are present. Lung apices: The visualized lung apices are clear. CT ARTERIOGRAM: Extracranial Circulation: Aortic Arch: The innominate artery and left common carotid artery originate from a common trunk, a normal variant. Scattered partially calcified atherosclerotic plaque in the aortic arch. Carotid Stenosis: Right Common: No significant stenosis. Right Internal Carotid Plaque: Moderate partially calcified circumferential atherosclerotic plaque. Right Internal Carotid Stenosis (% by NASCET Criteria): 50% Left Common: No significant stenosis. Left Internal Carotid Plaque: Mild plaque formation. 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 Intracranial Circulation: Anterior Circulation: Patent bilateral intracranial ICAs, ACAs, and MCAs. No aneurysm is identified. Vertebrobasilar Circulation: Patent bilateral V4 vertebral artery segments. The nondominant right vertebral artery terminates as the right PICA. Basilar artery and major branch vessels are patent. Both char puller are patent with conventional origins bilaterally. Dural venous sinuses and major deep draining veins are grossly patent. Deli/Bakery Associate (topogram) images: No significant findings. IMPRESSION IMPRESSION: 1. No large vessel occlusion or high-grade arterial stenosis intracranially. 2. Approximately 50% stenosis of the proximal right ICA. Less than 25% stenosis of the left ICA. 3. 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 Arterial blood flow was measured to detect acute large vessel occlusion by computer aided detection software: Not Performed. Concordance between software and imaging review: Not Applicable. Metal Treater: JAYME Transcribe Date/Time: Jan 30 2024 3:47P Dictated by : ANA PATE MD This examination was interpreted and the report reviewed and electronically signed by: ANA PATE MD on Jan 30 2024 3:56PM EST [facility] CTA HEAD W IVCONon CTA HEAD W IVCON Normal [facility] CTA Head Arteries W contrast Britt 01-30-2024 * * *Final Report* * * DATE OF EXAM: Jan 30 2024 3:12PM [facility] 0022 - CTA HEAD W IVCON / PROCEDURE REASON: multiple diagnoses * * * * Physician Interpretation * * * * EXAMINATION: CTA NECK W IVCON, CTA HEAD W IVCON HISTORY: Syncope. Known carotid artery stenosis. TECHNIQUE: Spiral high resolution axial images were obtained through the head, neck and superior mediastinum following bolus administration of intravenous contrast for CT angiography. 3D maximum intensity projection images were created, reviewed and archived . MQ: CTAHN_4 Contrast: 85 mL Omnipaque [address] Radiation dose: Integrated Dose-Length Product (DLP) for this visit = 761 mGy*cm. CT Dose Reduction Employed: Automated exposure control(AEC) and iterative recon COMPARISON: None. RESULT: BRAIN: Evaluation of the individual slices of the CTA demonstrates no evidence of an acute stroke. ASPECT Score = 10 Hemorrhage: No evidence of acute intracranial hemorrhage. ECASS hemorrhagic transformation score: Not Applicable NECK: Soft tissues: The soft tissue planes are maintained throughout. No evidence of a soft tissue mass in the neck or superior mediastinum. No significant lymphadenopathy is seen. Spine: Alignment is normal. Moderate degenerative changes are present. Lung apices: The visualized lung apices are clear. CT ARTERIOGRAM: Extracranial Circulation: Aortic Arch: The innominate artery and left common carotid artery originate from a common trunk, a normal variant. Scattered partially calcified atherosclerotic plaque in the aortic arch. Carotid Stenosis: Right Common: No significant stenosis. Right Internal Carotid Plaque: Moderate partially calcified circumferential atherosclerotic plaque. Right Internal Carotid Stenosis (% by NASCET Criteria): 50% Left Common: No significant stenosis. Left Internal Carotid Plaque: Mild plaque formation. 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 Intracranial Circulation: Anterior Circulation: Patent bilateral intracranial ICAs, ACAs, and MCAs. No aneurysm is identified. Vertebrobasilar Circulation: Patent bilateral V4 vertebral artery segments. The nondominant right vertebral artery terminates as the right PICA. Basilar artery and major branch vessels are patent. Both char puller are patent with conventional origins bilaterally. Dural venous sinuses and major deep draining veins are grossly patent. Deli/Bakery Associate (topogram) images: No significant findings. DIVISION OF RADIOLOGY Provider, [facility] [place] - 01/30/2024 * * *Final Report* * * DATE OF EXAM: Jan 30 2024 3:12PM [facility] 0022 - CTA HEAD W IVCON / PROCEDURE REASON: multiple diagnoses * * * * Physician Interpretation * * * * EXAMINATION: CTA NECK W IVCON, CTA HEAD W IVCON HISTORY: Syncope. Known carotid artery stenosis. TECHNIQUE: Spiral high resolution axial images were obtained through the head, neck and superior mediastinum following bolus administration of intravenous contrast for CT angiography. 3D maximum intensity projection images were created, reviewed and archived . MQ: CTAHN_4 Contrast: 85 mL Omnipaque [address] Radiation dose: Integrated Dose-Length Product (DLP) for this visit = 761 mGy*cm. CT Dose Reduction Employed: Automated exposure control(AEC) and iterative recon COMPARISON: None. RESULT: BRAIN: Evaluation of the individual slices of the CTA demonstrates no evidence of an acute stroke. ASPECT Score = 10 Hemorrhage: No evidence of acute intracranial hemorrhage. ECASS hemorrhagic transformation score: Not Applicable NECK: Soft tissues: The soft tissue planes are maintained throughout. No evidence of a soft tissue mass in the neck or superior mediastinum. No significant lymphadenopathy is seen. Spine: Alignment is normal. Moderate degenerative changes are present. Lung apices: The visualized lung apices are clear. CT ARTERIOGRAM: Extracranial Circulation: Aortic Arch: The innominate artery and left common carotid artery originate from a common trunk, a normal variant. Scattered partially calcified atherosclerotic plaque in the aortic arch. Carotid Stenosis: Right Common: No significant stenosis. Right Internal Carotid Plaque: Moderate partially calcified circumferential atherosclerotic plaque. Right Internal Carotid Stenosis (% by NASCET Criteria): 50% Left Common: No significant stenosis. Left Internal Carotid Plaque: Mild plaque formation. 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 Intracranial Circulation: Anterior Circulation: Patent bilateral intracranial ICAs, ACAs, and MCAs. No aneurysm is identified. Vertebrobasilar Circulation: Patent bilateral V4 vertebral artery segments. The nondominant right vertebral artery terminates as the right PICA. Basilar artery and major branch vessels are patent. Both char puller are patent with conventional origins bilaterally. Dural venous sinuses and major deep draining veins are grossly patent. Deli/Bakery Associate (topogram) images: No significant findings. IMPRESSION IMPRESSION: 1. No large vessel occlusion or high-grade arterial stenosis intracranially. 2. Approximately 50% stenosis of the proximal right ICA. Less than 25% stenosis of the left ICA. 3. 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 Arterial blood flow was measured to detect acute large vessel occlusion by computer aided detection software: Not Performed. Concordance between software and imaging review: Not Applicable. Metal Treater: JAYME Transcribe Date/Time: Jan 30 2024 3:47P Dictated by : ANA PATE MD This examination was interpreted and the report reviewed and electronically signed by: ANA PATE MD on Jan 30 2024 3:56PM [facility] CTA NECK W IVCONon 4 CTA NECK W IVCON [facility] No Panel Informationon 01-29 IMPRESSION: 1. No large vessel occlusion or high-grade arterial stenosis intracranially. 2. Approximately 50% stenosis of the proximal right ICA. Less than 25% stenosis of the left ICA. 3. 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 Arterial blood flow was measured to detect acute large vessel occlusion by computer aided detection software: Not Performed. Concordance between software and imaging review: Not Applicable. Metal Treater: [facility] Transcribe Date/Time: Jan 30 2024 3:47P Dictated by : ANA PATE MD This examination was interpreted and the report reviewed and electronically signed by: ANA PATE MD on Jan 30 2024 3:56PM EST DIVISION OF RADIOLOGY Radiology Study observation (narrative) [facility] No Panel InformationOrdered By: [facility] Provider on 01-30-2024 [facility] CNPNon 01-28-2024 CNPN Normal [facility] CNPNon 01-27-2024 CNPN Normal [facility] CNPNon 01-21-2024 CNPN Normal [facility] CNPTOUTREACHon 01-19-2024 CNPTOUTREACH Normal [facility] CNPNon 01-15-2024 CNPN Normal [facility] CNPNon 01-14-2024 CNPN Normal [facility] POTASSIUMon 01-14-2024 Interpretation and review of laboratory results Normal [facility] Potassium [Moles/Vol] 4.3 mmol/L 3.7 - 5.1 mmol/L [facility] CNPNon 01-13-2024 CNPN Normal [facility] POTASSIUMon 01-13-2024 Potassium [Moles/Vol] 4.3 mmol/L Normal 3.7-5.1 [facility] Comment on above: Order Comment: Speci men Type: BLOOD SPECIMENOrdering Facility: [facility] Address: [address] [place] [address] Performed By: #### K 1 ####[facility] LABCLIA [id number] [place] [address] [place] CNPNon 01-12-2024 CNPN Normal [facility] Basic metabolic 2000 panelon 01-09-2024 Anion gap [Moles/Vol] 10 mmol/L Normal 9-18 [facility] Comment on above: Order Comment: Speci men Type: BLOOD SPECIMENOrdering Facility: [facility] Address: [address] [place] [address] Performed By: #### 5 0190-8, 51683-6, LIPNF, 2276-4 ####[facility] LABCLIA [id number] [place] [address] [place] Calcium [Mass/Vol] 10.2 mg/dL Normal 8.5-10.2 [facility] Comment on above: Order Comment: Speci men Type: BLOOD SPECIMENOrdering Facility: [facility] Address: [address] [place] [address] Performed By: #### 5 0190-8, 93295-0, LIPNF, 2276-4 ####[facility]CLIA [id number] [place] [address] [place] Chloride [Moles/Vol] 104 mmol/L Normal 97-105 [facility] Comment on above: Order Comment: Speci men Type: BLOOD SPECIMENOrdering Facility: [facility] Address: [address] [place] [address] Performed By: #### 5 0190-8, 03407-4, LIPNF, 2275-4 ####[facility]CLIA [id number] [place] [address] [place] CO2 [Moles/Vol] 25 mmol/L Normal 22-30 [facility] Comment on above: Order Comment: Speci men Type: BLOOD SPECIMENOrdering Facility: [facility] Address: [address] [place] [address] Performed By: #### 5 0190-8, 41562-8, LIPNF, 2275-4 ####[facility]CLIA [id number] [place] [address] [place] Creatinine [Mass/Vol] 1.17 mg/dL Normal 0.73-1.22 [facility] Comment on above: Order Comment: Speci men Type: BLOOD SPECIMENOrdering Facility: [facility] Address: [address] [place] [address] Performed By: #### 5 0190-8, 84976-4, LIPNF, 2276-4 ####[facility]CLIA [id number] [place] [address] [place] Creatinine and Glomerular filtration rate.predicted panel (S/P/Bld) 61 mL/min/1.73m??? Normal >=60 [facility] Comment on above: Order Comment: Speci men Type: BLOOD SPECIMENOrdering Facility: [facility] Address: [address] [place] [address] Result Comment: Lauren mated Glomerular Filtration Rate (eGFR) is calculated using the 2020 CKD-EPI creatinine equation. This equation utilizes serum creatinine, sex, and age as parameters. The creatinine assay has traceable calibration to isotope dilution-mass spectrometry. Refer to KDIGO guidelines for clinical interpretation. In patients with unstable renal function, e.g. those with acute kidney injury, the eGFR may not accurately reflect actual GFR. Performed By: #### 5 0190-8, 30386-9, LIPDAYNA, 2275-4 ####[facility]CL[facility] [id number] [place] [address] [place] Glucose [Mass/Vol] 90 mg/dL Normal 74-99 [facility] Comment on above: Order Comment: Aisha bates Type: BLOOD SPECIMENOrdering Facility: [facility] Address: [address] [place] [address] Result Comment: The [place] Diabetes Association (ADA) provides guidance for cutoff values for fasting glucose and random glucose. The ADA defines fasting as no caloric intake for at least 8 hours. Fasting plasma glucose results between 100 to 125 mg/dL indicate increased risk for diabetes (prediabetes).Fasting plasma glucose results greater than or equal to 126 mg/dL meet the criteria for diagnosis of diabetes. In the absence of unequivocal hyperglycemia, results should be confirmed by repeat testing. In a patient with classic symptoms of hyperglycemia or hyperglycemic crisis, random plasma glucose results greater than or equal to 200 mg/dL meet the criteria for diagnosis of diabetes.Reference: Standards of Medical Care in Diabetes 2016, [place] [employer]. Diabetes Care. 2016.39(Suppl 1). Performed By: #### 5 0190-8, 09473-7, LIPNF, 2275-4 ####[facility] LABCLIA [id number] [place] [id number] [place] Potassium [Moles/Vol] 5.4 mmol/L High 3.7-5.1 [facility] Comment on above: Order Comment: Aisha bates Type: BLOOD SPECIMENOrdering Facility: [facility] Address: [address] [place] [address] Performed By: #### 5 0190-8, 10694-5, LIPNF, 6-4 ####[facility]CLIA [id number] [place] [address] [place] Sodium [Moles/Vol] 139 mmol/L Normal 136-144 [facility] Comment on above: Order Comment: Speci men Type: BLOOD SPECIMENOrdering Facility: [facility] Address: [address] [place] [address] Performed By: #### 5 0190-8, 37725-1, LIPNF, 2275-4 ####[facility] LABCLIA [id number] [place] [address] [place] Urea nitrogen [Mass/Vol] 19 mg/dL Normal 9-24 [facility] Comment on above: Order Comment: Speci men Type: BLOOD SPECIMENOrdering Facility: [facility] Address: [address] [place] [address] Performed By: #### 5 0190-8, 73899-6, LIPNF, 2275-4 ####[facility] LABCLIA [id number] [place] [address] [place] CBC W Auto Differential pane l (Bld)on 01-09-2024 Basophils (Bld) [#/Vol] 0.04 10*3/uL Normal <0.11 [facility] Comment on above: Order Comment: Speci men Type: BLOOD SPECIMENOrdering Facility: [facility] Address: [address] [place] [address] Performed By: #### 5 7021-8 ####[facility] LABCLIA [id number] [place] [address] [place] Basophils/100 WBC (Bld) 0.5 % Normal [facility] Comment on above: Order Comment: Speci men Type: BLOOD SPECIMENOrdering Facility: [facility] Address: [address] [place] [address] Performed By: #### 5 7021-8 ####[facility] LABCLIA [id number] [place] [address] [place] Differential cell count method Nom (Bld) Auto Normal [facility] Comment on above: Order Comment: Speci men Type: BLOOD SPECIMENOrdering Facility: [facility] Address: [address] [place] [address] Performed By: #### 5 7021-8 ####[facility] LABCLIA [id number] [place] [address] [place] Eosinophils (Bld) [#/Vol] 0.30 10*3/uL Normal <0.46 [facility] Comment on above: Order Comment: Speci men Type: BLOOD SPECIMENOrdering Facility: [facility] Address: [address] [place] [address] Performed By: #### 5 7021-8 ####[facility] LABIA [id number] [place] [address] [place] Eosinophils/100 WBC (Bld) 4.1 % Normal [facility] Comment on above: Order Comment: Speci men Type: BLOOD SPECIMENOrdering Facility: [facility] Address: [address] [place] [address] Performed By: #### 5 7021-8 ####[facility] LABIA [id number] [place] [address] [place] Erythrocyte distribution width (RBC) [Ratio] 14.5 % Normal 11.5-15.0 [facility] Comment on above: Order Comment: Speci men Type: BLOOD SPECIMENOrdering Facility: [facility] Address: [address] [place] [address] Performed By: #### 5 7021-8 ####[facility] LABCLIA [id number] [place] [address] [place] Hematocrit (Bld) [Volume fraction] 39.3 % Normal 39.0-51.0 [facility] Comment on above: Order Comment: Speci men Type: BLOOD SPECIMENOrdering Facility: [facility] Address: [address] [place] [address] Performed By: #### 5 7021-8 ####[facility] LABCLIA [id number] [place] [address] [place] Hemoglobin (Bld) [Mass/Vol] 12.1 g/dL Low 13.0-17.0 [facility] Comment on above: Order Comment: Speci men Type: BLOOD SPECIMENOrdering Facility: [facility] Address: [address] [place] [address] Performed By: #### 5 7021-8 ####[facility] LABCLIA [id number] [place] [address] [place] Immature granulocytes (Bld) [#/Vol] 0.04 10*3/uL Normal <0.10 [facility] Comment on above: Order Comment: Speci men Type: BLOOD SPECIMENOrdering Facility: [facility] Address: [address] [place] [address] Performed By: #### 5 7021-8 ####[facility] LABCLIA [id number] [place] [address] [place] Immature granulocytes/100 WBC (Bld) 0.5 % Normal [facility] Comment on above: Order Comment: Speci men Type: BLOOD SPECIMENOrdering Facility: [facility] Address: [address] [place] [address] Performed By: #### 5 7021-8 ####[facility] LABIA [id number] [place] [address] [place] Lymphocytes (Bld) [#/Vol] 1.49 10*3/uL Normal 1.00-4.00 [facility] Comment on above: Order Comment: Speci men Type: BLOOD SPECIMENOrdering Facility: [facility] Address: [address] [place] [address] Performed By: #### 5 7021-8 ####[facility] LABIA [id number] [place] [address] [place] Lymphocytes/100 WBC (Bld) 20.3 % Normal [facility] Comment on above: Order Comment: Speci men Type: BLOOD SPECIMENOrdering Facility: [facility] Address: [address] [place] [address] Performed By: #### 5 7021-8 ####[facility] LABIA [id number] [place] [address] [place] MCH (RBC) [Entitic mass] 29.7 pg Normal 26.0-34.0 [facility] Comment on above: Order Comment: Speci men Type: BLOOD SPECIMENOrdering Facility: [facility] Address: [address] [place] [address] Performed By: #### 5 7021-8 ####[facility] [id number] [place] [address] [place] MCHC (RBC) [Mass/Vol] 30.8 g/dL Normal 30.5-36.0 [facility] Comment on above: Order Comment: Speci men Type: BLOOD SPECIMENOrdering Facility: [facility] Address: [address] [place] [address] Performed By: #### 5 7021-8 ####[facility] LABIA [id number] [place] [address] [place] MCV (RBC) [Entitic vol] 96.6 fL Normal 80.0-100.0 [facility] Comment on above: Order Comment: Speci men Type: BLOOD SPECIMENOrdering Facility: [facility] Address: [address] [place] [address] Performed By: #### 5 7021-8 ####[facility] LABIA [id number] [place] [address] [place] Monocytes (Bld) [#/Vol] 0.70 10*3/uL Normal <0.87 [facility] Comment on above: Order Comment: Speci men Type: BLOOD SPECIMENOrdering Facility: [facility] Address: [address] [place] [address] Performed By: #### 5 7021-8 ####[facility] LABCLIA [id number] [place] [address] [place] Monocytes/100 WBC (Bld) 9.5 % Normal [facility] Comment on above: Order Comment: Speci men Type: BLOOD SPECIMENOrdering Facility: [facility] Address: [address] [place] [address] Performed By: #### 5 7021-8 ####[facility] LABCLIA [id number] [place] [address] [place] Neutrophils (Bld) [#/Vol] 4.77 10*3/uL Normal 1.45-7.50 [facility] Comment on above: Order Comment: Speci men Type: BLOOD SPECIMENOrdering Facility: [facility] Address: [address] [place] [address] Performed By: #### 5 7021-8 ####[facility] LABCLIA [id number] [place] [address] [place] Neutrophils/100 WBC (Bld) 65.1 % Normal [facility] Comment on above: Order Comment: Speci men Type: BLOOD SPECIMENOrdering Facility: [facility] Address: [address] [place] [address] Performed By: #### 5 7021-8 ####[facility] LABCLIA [id number] [place] [address] [place] Nucleated RBC (Bld) [#/Vol] 10*3/uL Normal <0.01 [facility] Comment on above: Order Comment: Speci men Type: BLOOD SPECIMENOrdering Facility: [facility] Address: [address] [place] [address] Performed By: #### 5 7021-8 ####[facility] LABCLIA [id number] [place] [address] [place] Nucleated RBC/100 WBC (Bld) [Ratio] 0.0 /100 WBC Normal [facility] Comment on above: Order Comment: Speci men Type: BLOOD SPECIMENOrdering Facility: [facility] Address: [address] [place] [address] Performed By: #### 5 7021-8 ####[facility] LABCLIA [id number] [place] [address] [place] Platelet mean volume (Bld) [Entitic vol] 9.1 fL Normal 9.0-12.7 [facility] Comment on above: Order Comment: Speci men Type: BLOOD SPECIMENOrdering Facility: [facility] Address: [address] [place] [address] Performed By: #### 5 7021-8 ####[facility] LABCLIA [id number] [place] [address] [place] Platelets (Bld) [#/Vol] 200 10*3/uL Normal 150-400 [facility] Comment on above: Order Comment: Speci men Type: BLOOD SPECIMENOrdering Facility: [facility] Address: [address] [place] [address] Performed By: #### 5 7021-8 ####[facility] LABCLIA [id number] [place] [address] [place] RBC (Bld) [#/Vol] 4.07 10*6/uL Low 4.20-6.00 [facility] Comment on above: Order Comment: Speci men Type: BLOOD SPECIMENOrdering Facility: [facility] Address: [address] [place] [address] Performed By: #### 5 7021-8 ####[facility] LABCLIA [id number] [place] [address] [place] WBC (Bld) [#/Vol] 7.34 10*3/uL Normal 3.70-11.00 [facility] Comment on above: Order Comment: Speci men Type: BLOOD SPECIMENOrdering Facility: [facility] Address: [address] [place] [address] Performed By: #### 5 7021-8 ####[facility] [id number] [place] [address] [place] CNOVon 01-09-2024 CNOV Normal [facility] CNPNon 01-09-2024 CNPN Normal [facility] Ferritin SerPl-mCncon 2023 Ferritin [Mass/Vol] 279.0 ng/mL Normal 30.3-565.7 [facility] Comment on above: Order Comment: Speci men Type: BLOOD SPECIMENOrdering Facility: [facility] Address: [address] [place] [address] Performed By: #### 5 0190-8, 76370-5, LIPNF, 2276-4 ####[facility] [id number] [place] [address] [place] Folate SerPl-mCncon 01-09-20 24 Folate [Mass/Vol] 16.6 ng/mL Normal >4.7 [facility] Comment on above: Order Comment: Speci men Type: BLOOD SPECIMENOrdering Facility: [facility] Address: [address] [place] [address] Performed By: #### 2 731-8, 2284-8, 2132-9 ####[facility] [id number] [place] [address] [place] HbA1c (Bld)on 01-09-2024 Average glucose Estimated from glycated hemoglobin (Bld) [Mass/Vol] 120 mg/dL Normal [facility] Comment on above: Order Comment: Speci men Type: BLOOD SPECIMENOrdering Facility: [facility] Address: [address] [place] [address] Result Comment: eAG: (Estimated average glucose) is a calculated value from HgbA1c and is pharmacy sales representative of the average blood glucose level in the last 2-3 month period. Performed By: #### 5 5454-3 ####[facility] LABIA [id number] [place] [address] [place] HbA1c (Bld) [Mass fraction] 5.8 % High 4.3-5.6 [facility] Comment on above: Order Comment: Speci men Type: BLOOD SPECIMENOrdering Facility: [facility] Address: [address] [place] [address] Result Comment: [place] Diabetes Association guidelines indicate that patients with HgbA1c in the range 5.7-6.4% are at increased risk for development of diabetes, and intervention by lifestyle modification may be beneficial. HgbA1c greater or equal to 6.5% is considered diagnostic of diabetes. Performed By: #### 5 5454-3 ####[facility] LABIA [id number] [place] [address] [place] Iron and Iron binding capaci ty panelon 01-09-2024 Iron [Mass/Vol] 78 ug/dL Normal 41-186 [facility] Comment on above: Order Comment: Speci men Type: BLOOD SPECIMENOrdering Facility: [facility] Address: [address] [place] [address] Performed By: #### 5 0190-8, 41616-0, LIPNF, 6-4 ####[facility] LABIA [id number] [place] [address] [place] Iron binding capacity [Mass/Vol] 276 ug/dL Normal 232-386 [facility] Comment on above: Order Comment: Speci men Type: BLOOD SPECIMENOrdering Facility: [facility] Address: [address] [place] [address] Performed By: #### 5 0190-8, 79112-0, LIPNF, 2275-4 ####[facility] LABCLIA [id number] [place] [address] [place] Iron/TIBC [Molar ratio] 28.3 % Normal 15.0-57.0 [facility] Comment on above: Order Comment: Speci men Type: BLOOD SPECIMENOrdering Facility: [facility] Address: [address] [place] [address] Performed By: #### 5 0190-8, 78877-8, LIPNF, 2275-4 ####[facility] LABCLIA [id number] [place] [address] [place] LIPID PANEL, NONFASTINGon Cholesterol [Mass/Vol] 149 mg/dL Normal <200 [facility] Comment on above: Order Comment: Speci men Type: BLOOD SPECIMENOrdering Facility: [facility] Address: [address] [place] [address] Result Comment: <200 mg/dL, Desirable 200-239 mg/dL, Borderline high>239 mg/dL, High Performed By: #### 5 0190-8, 63988-2, LIPNF, 2275- ####[facility] LABCLIA [id number] [place] [address] [place] HDL CHOLESTEROL, NF 41 mg/dL Normal >39 [facility] Comment on above: Order Comment: Speci men Type: BLOOD SPECIMENOrdering Facility: [facility] Address: [address] [place] [address] Result Comment: 40-5 9 mg/dL, Acceptable>59 mg/dL, High: Negative risk factor for coronary heart disease<40 mg/dL, Low: Positive risk factor for coronary heart disease Performed By: #### 5 0190-8, 64051-3, LIPNF, 2275- ####[facility] LABCLIA [id number] [place] [address] [place] LDL CHOLESTEROL, NF 89 mg/dL Normal <100 [facility] Comment on above: Order Comment: Aisha bates Type: BLOOD SPECIMENOrdering Facility: [facility] Address: [address] [place] [address] Result Comment: <100 mg/dL, Optimal 100-129 mg/dL, Near optimal/above optimal 130-159 mg/dL, Borderline high 160-189 mg/dL, High>189 mg/dL, Very highSecondary prevention optimal LDL Cholesterol levels are recommended to be < 70 mg/dL Performed By: #### 5 0190-8, 49221-4, LIPNF, 2276-4 ####[facility] LABCLIA [id number] [place] [address] [place] LDL/HDL RATIO, NF 2.17 mg/dL Normal <2.54 [facility] Comment on above: Order Comment: Aisha bates Type: BLOOD SPECIMENOrdering Facility: [facility] Address: [address] [place] [address] Result Comment: Refe rence:1. National Cholesterol Education Program ATP III Guideline At-A-Glance Quick Desk Reference: National Heart, Lung, and Blood [place]. National Institutes of Health. 2001: NIH Publication No. 01-3305.2. An International Atherosclerosis Society position paper: global recommendations for the management of dyslipidemia: executive summary, Atherosclerosis. 2014: 232(2):410-413. Performed By: #### 5 0190-8, 18133-9, LIPNF, 2276-4 ####[facility] LABCLIA [id number] [place] [address] [place] NON HDL CHOL, NF 108 mg/dL Normal <130 [facility] Comment on above: Order Comment: Aisha bates Type: BLOOD SPECIMENOrdering Facility: [facility] Address: [address] [place] [address] Result Comment: <130 mg/dL, Optimal 130-159 mg/dL, Near optimal/above optimal 160-189 mg/dL, Borderline high 190-219 mg/dL, High>219 mg/dL, Very highSecondary prevention optimal non HDL Cholesterol levels are recommended to be <100 mg/dL Performed By: #### 5 0190-8, 12966-2, LIPNF, 2276-4 ####[facility] LABCLIA [id number] [place] [address] [place] T CHOL/HDL RATIO NF 3.63 mg/dL Normal <5.10 [facility] Comment on above: Order Comment: Speci men Type: BLOOD SPECIMENOrdering Facility: [facility] Address: [address] [place] [address] Performed By: #### 5 0190-8, 73707-8, LIPNF, 2276-4 ####[facility] LABIA [id number] [place] [address] [place] TRIGLYCERIDES, NF 95 mg/dL Normal <150 [facility] Comment on above: Order Comment: Speci men Type: BLOOD SPECIMENOrdering Facility: [facility] Address: [address] [place] [address] Result Comment: <150 mg/dL, Normal 150-199 mg/dL, Borderline high 200-499 mg/dL, High>499 mg/dL, Very high Performed By: #### 5 0190-8, 45573-8, LIPNF, 2275-4 ####[facility] LABIA [id number] [place] [address] [place] VLDL CHOLESTEROL, NF 19 mg/dL Normal <30 [facility] Comment on above: Order Comment: Speci men Type: BLOOD SPECIMENOrdering Facility: [facility] Address: [address] [place] [address] Performed By: #### 5 0190-8, 94618-0, LIPNF, 2276-4 ####[facility] LABIA [id number] [place] [address] [place] [facility] Parathyrin.intact [Mass/Vol] 23 pg/mL Normal 15-65 [facility] Comment on above: Order Comment: Speci men Type: BLOOD SPECIMENOrdering Facility: [facility] Address: [address] [place], [place] [address] Performed By: #### 2 731-8, 8, 2132-05 ####[facility] LABCLIA [id number] [place] [id number] [place] Vit B12 SerPl-ncon 024 Cobalamin (Vitamin B12) [Mass/Vol] 690 pg/mL Normal 232-1245 [facility] Comment on above: Order Comment: Speci men Type: BLOOD SPECIMENOrdering Facility: [facility] Address: [address] [place], [place] [address] Performed By: #### 2 731-8, 8, 2132-05 ####[facility] LABCLIA [id number] [place] [address] [place] CNPNon 01-07-2024 CNPN Normal [facility] CNPNon 01-05-2024 CNPN Normal [facility] CNPNon 01-02-2024 CNPN Normal [facility] Basic metabolic 2000 panelon 12-31-2023 Anion gap [Moles/Vol] 7 mmol/L Low 9 - 18 mmol/L [facility] Calcium [Mass/Vol] 10.6 mg/dL High 8.5 - 10. 2 mg/dL [facility] Chloride [Moles/Vol] 104 mmol/L 97 - 10 5 mmol/L [facility] CO2 [Moles/Vol] 27 mmol/L 22 - 30 mmol/L [facility] Creatinine [Mass/Vol] 0.89 mg/dL 0.73 - 1.22 mg/dL [facility] Estimated Glomerular Filtration Rate 85 mL/min/1.73m >=60 mL/min/1.73m [facility] Glucose [Mass/Vol] 97 mg/dL 74 - 99 mg/dL [facility] Potassium [Moles/Vol] 4.8 mmol/L 3.7 - 5.1 mmol/L [facility] Sodium [Moles/Vol] 138 mmol/L 136 - 144 mmol/L [facility] Urea nitrogen [Mass/Vol] 21 mg/dL 9 - 24 mg/dL [facility] Anion gap [Moles/Vol] 7 mmol/L Low 9-18 [facility] Comment on above: Order Comment: Speci men Type: BLOOD SPECIMENOrdering Facility: [facility] Address: [address] [place] [address] Performed By: #### 2 4321-2 ####[facility] DAYSI MILLWNCLIA [id number] [place] [address] [place] Calcium [Mass/Vol] 10.6 mg/dL High 8.5-10.2 [facility] Comment on above: Order Comment: Speci men Type: BLOOD SPECIMENOrdering Facility: [facility] Address: [address] [place] [address] Performed By: #### 2 4321-2 ####[facility]ITALWNCLIA [id number] [place] [address] [place] Chloride [Moles/Vol] 104 mmol/L Normal 97-105 [facility] Comment on above: Order Comment: Speci men Type: BLOOD SPECIMENOrdering Facility: [facility] Address: [address] [place] [address] Performed By: #### 2 4321-2 ####[facility]ENTERNCLIA [id number] [place] [address] [place] CO2 [Moles/Vol] 27 mmol/L Normal 22-30 [facility] Comment on above: Order Comment: Speci men Type: BLOOD SPECIMENOrdering Facility: [facility] Address: [address] [place], [place] [address] Performed By: #### 2 4321-2 ####[facility]ENTERNCLIA [id number] [place] [address] [place] Creatinine [Mass/Vol] 0.89 mg/dL Normal 0.73-1.22 [facility] Comment on above: Order Comment: Speci men Type: BLOOD SPECIMENOrdering Facility: [facility] Address: [address] [place] [address] Performed By: #### 2 4321-2 ####[facility] [id number] [place] [address] [place] Creatinine and Glomerular filtration rate.predicted panel (S/P/Bld) 85 mL/min/1.73m??? Normal >=60 [facility] Comment on above: Order Comment: Aisha bates Type: BLOOD SPECIMENOrdering Facility: [facility] Address: [address] [place] [address] Result Comment: Lauren mated Glomerular Filtration Rate (eGFR) is calculated using the 2020 CKD-EPI creatinine equation. This equation utilizes serum creatinine, sex, and age as parameters. The creatinine assay has traceable calibration to isotope dilution-mass spectrometry. Refer to KDIGO guidelines for clinical interpretation. In patients with unstable renal function, e.g. those with acute kidney injury, the eGFR may not accurately reflect actual GFR. Performed By: #### 2 4321-2 ####[facility] [id number] [place] [address] [place] Glucose [Mass/Vol] 97 mg/dL Normal 74-99 [facility] Comment on above: Order Comment: Aisha bates Type: BLOOD SPECIMENOrdering Facility: [facility] Address: [address] [place] [address] Result Comment: The [place] Diabetes Association (ADA) provides guidance for cutoff values for fasting glucose and random glucose. The ADA defines fasting as no caloric intake for at least 8 hours. Fasting plasma glucose results between 100 to 125 mg/dL indicate increased risk for diabetes (prediabetes).Fasting plasma glucose results greater than or equal to 126 mg/dL meet the criteria for diagnosis of diabetes. In the absence of unequivocal hyperglycemia, results should be confirmed by repeat testing. In a patient with classic symptoms of hyperglycemia or hyperglycemic crisis, random plasma glucose results greater than or equal to 200 mg/dL meet the criteria for diagnosis of diabetes.Reference: Standards of Medical Care in Diabetes 2016, [place] Diabetes Association. Diabetes Care. 2016.39(Suppl 1). Performed By: #### 2 4321-2 ####[facility] MILLTOWNCLIA [id number] [place] [address] [place] Potassium [Moles/Vol] 4.8 mmol/L Normal 3.7-5.1 [facility] Comment on above: Order Comment: Speci men Type: BLOOD SPECIMENOrdering Facility: [facility] Address: [address] [place] [address] Performed By: #### 2 4321-2 ####[facility]ENTERNCLIA [id number] [place] [address] [place] Sodium [Moles/Vol] 138 mmol/L Normal 136-144 [facility] Comment on above: Order Comment: Speci men Type: BLOOD SPECIMENOrdering Facility: [facility] Address: [address] [place] [address] Performed By: #### 2 4321-2 ####[facility] H[facility]PITALWNCLIA [id number] [place] [address] [place] Urea nitrogen [Mass/Vol] 21 mg/dL Normal 9-24 [facility] Comment on above: Order Comment: Speci men Type: BLOOD SPECIMENOrdering Facility: [facility] Address: [address] [place] [address] Performed By: #### 2 4321-2 ####[facility]ENTERNCLIA [id number] [place] [address] [place] CNOVon 12-31-2023 CNOV Normal [facility] CNPNon 12-31-2023 CNPN Normal [facility] CNPNon 12-29-2023 CNPN Normal [facility] CNPTOUTREACHon 12-29-2023 CNPTOUTREACH Normal [facility] CNPNon 12-26-2023 CNPN Normal [facility] CBC W Auto Differential pane l (Bld)on 12-25-2023 Basophils (Bld) [#/Vol] 0.04 10*3/uL <0.11 k/uL [facility] Basophils/100 WBC (Bld) 0.3 % [facility] Differential cell count method Nom (Bld) Auto [facility] Eosinophils (Bld) [#/Vol] 0.06 10*3/uL <0.46 k/uL [facility] Eosinophils/100 WBC (Bld) 0.4 % [facility] Erythrocyte distribution width (RBC) [Ratio] 14.8 % 11.5 - 15.0 % [facility] Hematocrit (Bld) [Volume fraction] 47.4 % 39.0 - 51.0 % [facility] Hemoglobin (Bld) [Mass/Vol] 15.4 g/dL 13.0 - 17.0 g/dL [facility] Immature granulocytes (Bld) [#/Vol] 0.08 10*3/uL <0.10 k/uL [facility] Immature granulocytes/100 WBC (Bld) 0.5 % [facility] Lymphocytes (Bld) [#/Vol] 1.14 10*3/uL 1.00 - 4.00 k/uL [facility] Lymphocytes/100 WBC (Bld) 7.3 % [facility] MCH (RBC) [Entitic mass] 30.3 pg 26.0 - 34.0 pg [facility] MCHC (RBC) [Mass/Vol] 32.5 g/dL 30.5 - 36.0 g/dL [facility] MCV (RBC) [Entitic vol] 93.1 fL 80.0 - 100.0 fL [facility] Monocytes (Bld) [#/Vol] 0.99 10*3/uL High <0.87 k/uL [facility] Monocytes/100 WBC (Bld) 6.3 % [facility] Neutrophils (Bld) [#/Vol] 13.29 10*3/uL High 1.45 - 7.50 k/uL [facility] Neutrophils/100 WBC (Bld) 85.2 % [facility] Nucleated RBC (Bld) [#/Vol] <0.01 k/uL [facility] Nucleated RBC/100 WBC (Bld) [Ratio] 0.0 /100 WBC [facility] Platelet mean volume (Bld) [Entitic vol] 9.0 fL 9.0 - 12.7 fL [facility] Platelets (Bld) [#/Vol] 237 10*3/uL 150 - 400 k/uL [facility] RBC (Bld) [#/Vol] 5.09 10*6/uL 4.20 - 6.0 0 m/uL [facility] WBC (Bld) [#/Vol] 15.60 10*3/uL High 3.70 - 11 .00 k/uL [facility] Basophils (Bld) [#/Vol] 0.04 10*3/uL Normal <0.11 [facility] Comment on above: Order Comment: Speci men Type: BLOOD SPECIMENOrdering Facility: [facility] Address: [address] [place] [address] Performed By: #### 5 7021-8 ####[facility] ERA [id number] [place] [address] [place] Basophils/100 WBC (Bld) 0.3 % Normal [facility] Comment on above: Order Comment: Speci men Type: BLOOD SPECIMENOrdering Facility: [facility] Address: [address] [place] [address] Performed By: #### 5 7021-8 ####[facility] [id number] [place] [address] [place] Differential cell count method Nom (Bld) Auto Normal [facility] Comment on above: Order Comment: Speci men Type: BLOOD SPECIMENOrdering Facility: [facility] Address: [address] [place] [address] Performed By: #### 5 7021-8 ####[facility] [id number] [place] [address] [place] Eosinophils (Bld) [#/Vol] 0.06 10*3/uL Normal <0.46 [facility] Comment on above: Order Comment: Speci men Type: BLOOD SPECIMENOrdering Facility: [facility] Address: [address] [place] [address] Performed By: #### 5 7021-8 ####[facility] SAULOALONLIA [id number] [place] [address] [place] Eosinophils/100 WBC (Bld) 0.4 % Normal [facility] Comment on above: Order Comment: Speci men Type: BLOOD SPECIMENOrdering Facility: [facility] Address: [address] [place] [address] Performed By: #### 5 7021-8 ####[facility] CENTERPOLOA [id number] [place] [address] [place] Erythrocyte distribution width (RBC) [Ratio] 14.8 % Normal 11.5-15.0 [facility] Comment on above: Order Comment: Speci men Type: BLOOD SPECIMENOrdering Facility: [facility] Address: [address] [place] [address] Performed By: #### 5 7021-8 ####[facility] CENTERCLAUS [id number] [place] [address] [place] Hematocrit (Bld) [Volume fraction] 47.4 % Normal 39.0-51.0 [facility] Comment on above: Order Comment: Speci men Type: BLOOD SPECIMENOrdering Facility: [facility] Address: [address] [place] [address] Performed By: #### 5 7021-8 ####[facility] CENTERCLAUS [id number] [place] [address] [place] Hemoglobin (Bld) [Mass/Vol] 15.4 g/dL Normal 13.0-17.0 [facility] Comment on above: Order Comment: Speci men Type: BLOOD SPECIMENOrdering Facility: [facility] Address: [address] [place] [address] Performed By: #### 5 7021-8 ####[facility] CENTERNCLIA [id number] [place] [address] [place] Immature granulocytes (Bld) [#/Vol] 0.08 10*3/uL Normal <0.10 [facility] Comment on above: Order Comment: Speci men Type: BLOOD SPECIMENOrdering Facility: [facility] Address: [address] [place] [address] Performed By: #### 5 7021-8 ####[facility] ERA [id number] [place] [address] [place] Immature granulocytes/100 WBC (Bld) 0.5 % Normal [facility] Comment on above: Order Comment: Speci men Type: BLOOD SPECIMENOrdering Facility: [facility] Address: [address] [place] [address] Performed By: #### 5 7021-8 ####[facility] [id number] [place] [address] [place] Lymphocytes (Bld) [#/Vol] 1.14 10*3/uL Normal 1.00-4.00 [facility] Comment on above: Order Comment: Speci men Type: BLOOD SPECIMENOrdering Facility: [facility] Address: [address] [place] [address] Performed By: #### 5 7021-8 ####[facility] [id number] [place] [address] [place] Lymphocytes/100 WBC (Bld) 7.3 % Normal [facility] Comment on above: Order Comment: Speci men Type: BLOOD SPECIMENOrdering Facility: [facility] Address: [address] [place] [address] Performed By: #### 5 7021-8 ####[facility] [id number] [place] [address] [place] MCH (RBC) [Entitic mass] 30.3 pg Normal 26.0-34.0 [facility] Comment on above: Order Comment: Speci men Type: BLOOD SPECIMENOrdering Facility: [facility] Address: [address] [place] [address] Performed By: #### 5 7021-8 ####[facility] [id number] [place] [address] [place] MCHC (RBC) [Mass/Vol] 32.5 g/dL Normal 30.5-36.0 [facility] Comment on above: Order Comment: Speci men Type: BLOOD SPECIMENOrdering Facility: [facility] Address: [address] [place] [address] Performed By: #### 5 7021-8 ####[facility] [id number] [place] [address] [place] MCV (RBC) [Entitic vol] 93.1 fL Normal 80.0-100.0 [facility] Comment on above: Order Comment: Speci men Type: BLOOD SPECIMENOrdering Facility: [facility] Address: [address] [place] [address] Performed By: #### 5 7021-8 ####[facility] [id number] [place] [address] [place] Monocytes (Bld) [#/Vol] 0.99 10*3/uL High <0.87 [facility] Comment on above: Order Comment: Speci men Type: BLOOD SPECIMENOrdering Facility: [facility] Address: [address] [place] [address] Performed By: #### 5 7021-8 ####[facility] [id number] [place] [address] [place] Monocytes/100 WBC (Bld) 6.3 % Normal [facility] Comment on above: Order Comment: Speci men Type: BLOOD SPECIMENOrdering Facility: [facility] Address: [address] [place] [address] Performed By: #### 5 7021-8 ####[facility] [id number] [place] [address] [place] Neutrophils (Bld) [#/Vol] 13.29 10*3/uL High 1.45-7.50 [facility] Comment on above: Order Comment: Speci men Type: BLOOD SPECIMENOrdering Facility: [facility] Address: [address] [place] [address] Performed By: #### 5 7021-8 ####[facility] [id number] [place] [address] [place] Neutrophils/100 WBC (Bld) 85.2 % Normal [facility] Comment on above: Order Comment: Speci men Type: BLOOD SPECIMENOrdering Facility: [facility] Address: [address] [place] [address] Performed By: #### 5 7021-8 ####[facility] [id number] [place] [address] [place] Nucleated RBC (Bld) [#/Vol] 10*3/uL Normal <0.01 [facility] Comment on above: Order Comment: Speci men Type: BLOOD SPECIMENOrdering Facility: [facility] Address: [address] [place] [address] Performed By: #### 5 7021-8 ####[facility] [id number] [place] [address] [place] Nucleated RBC/100 WBC (Bld) [Ratio] 0.0 /100 WBC Normal [facility] Comment on above: Order Comment: Speci men Type: BLOOD SPECIMENOrdering Facility: [facility] Address: [address] [place] [address] Performed By: #### 5 7021-8 ####[facility] [id number] [place] [address] [place] Platelet mean volume (Bld) [Entitic vol] 9.0 fL Normal 9.0-12.7 [facility] Comment on above: Order Comment: Speci men Type: BLOOD SPECIMENOrdering Facility: [facility] Address: [address] [place] [address] Performed By: #### 5 7021-8 ####[facility] [id number] [place] [address] [place] Platelets (Bld) [#/Vol] 237 10*3/uL Normal 150-400 [facility] Comment on above: Order Comment: Speci men Type: BLOOD SPECIMENOrdering Facility: [facility] Address: [address] [place] [address] Performed By: #### 5 7021-8 ####[facility] [id number] [place] [address] [place] RBC (Bld) [#/Vol] 5.09 10*6/uL Normal 4.20-6.00 [facility] Comment on above: Order Comment: Speci men Type: BLOOD SPECIMENOrdering Facility: [facility] Address: [address] [place] [address] Performed By: #### 5 7021-8 ####[facility] [id number] [place] [address] [place] WBC (Bld) [#/Vol] 15.60 10*3/uL High 3.70-11.00 [facility] Comment on above: Order Comment: Speci men Type: BLOOD SPECIMENOrdering Facility: [facility] Address: [address] [place] [address] Performed By: #### 5 7021-8 ####[facility] [id number] [place] [address] [place] CEA SerPl-mCncon 12-25-2023 Carcinoembryonic Ag [Mass/Vol] 1.8 ng/mL Normal <=2.9 [facility] Comment on above: Order Comment: Speci men Type: BLOOD SPECIMENOrdering Facility: [facility] Address: [address] [place] [address] Result Comment: Carc inoembryonic antigen test is used as an aid in monitoring response to treatment or recurrence in patients with established colorectal, breast, lung, prostatic, pancreatic, and ovarian carcinomas. Clinical correlation is required.The Carcinoembryonic antigen test was performed using the Rafael Chester [employer] DXI paramagnetic particle chemiluminescent immunoassay method. Results obtained with different assay methods or kits cannot be used interchangeably. Performed By: #### 2 039-6 ####[facility] LABCLIA [id number] [place] [address] [place] CNOVon 12-25-2023 CNOV Normal [facility] CNPNon 12-25-2023 CNPN Normal [facility] CT ABD/PEL WO IVCONon 2023 CT ABD/PEL WO IVCON Normal [facility] CT CHEST WO IVCONon 12-25-19 CT CHEST WO IVCON Normal [facility] Comprehensive metabolic 2000 panelon 12-25-2023 Albumin [Mass/Vol] 5.0 g/dL High 3.9 - 4.9 g/dL [facility] ALP [Catalytic activity/Vol] 143 U/L High 38 - 113 U/L [facility] ALT [Catalytic activity/Vol] 24 U/L 10 - 54 U/L [facility] Anion gap [Moles/Vol] 16 mmol/L 9 - 18 mmol/L [facility] AST [Catalytic activity/Vol] 18 U/L 14 - 40 U/L [facility] Bilirubin [Mass/Vol] 0.4 mg/dL 0.2 - 1 .3 mg/dL [facility] Calcium [Mass/Vol] 11.0 mg/dL High 8.5 - 10. 2 mg/dL [facility] Chloride [Moles/Vol] 101 mmol/L 97 - 10 5 mmol/L [facility] CO2 [Moles/Vol] 12 mmol/L Low 22 - 30 mmol/L [facility] Creatinine [Mass/Vol] 2.24 mg/dL High 0.73 - 1.22 mg/dL [facility] Estimated Glomerular Filtration Rate 28 mL/min/1.73m Low >=60 mL/min/1.73m [facility] Glucose [Mass/Vol] 174 mg/dL High 74 - 99 mg/dL [facility] Potassium [Moles/Vol] 6.1 mmol/L Critically high 3.7 - 5.1 mmol/L [facility] Protein [Mass/Vol] 8.5 g/dL High 6.3 - 8.0 g/dL [facility] Sodium [Moles/Vol] 129 mmol/L Low 136 - 144 mmol/L [facility] Urea nitrogen [Mass/Vol] 55 mg/dL High 9 - 24 mg/dL [facility] Albumin [Mass/Vol] 5.0 g/dL High 3.9-4.9 [facility] Comment on above: Order Comment: Speci men Type: BLOOD SPECIMENOrdering Facility: [facility] Address: [address] [place] [address] Performed By: #### 2 4323-8 ####[facility] [id number] [place] [address] [place] ALP [Catalytic activity/Vol] 143 U/L High 38-113 [facility] Comment on above: Order Comment: Speci men Type: BLOOD SPECIMENOrdering Facility: [facility] Address: [address] [place] [address] Performed By: #### 2 4323-8 ####[facility]ITAL[facility]CL[facility] [id number] [place] [address] [place] ALT [Catalytic activity/Vol] 24 U/L Normal 10-54 [facility] Comment on above: Order Comment: Speci men Type: BLOOD SPECIMENOrdering Facility: [facility] Address: [address] [place] [address] Performed By: #### 2 4323-8 ####[facility]ITAL[facility]CL[facility] [id number] [place] [address] [place] Anion gap [Moles/Vol] 16 mmol/L Normal 9-18 [facility] Comment on above: Order Comment: Speci men Type: BLOOD SPECIMENOrdering Facility: [facility] Address: [address] [place] [address] Performed By: #### 2 4323-8 ####[facility]UG[facility]NCL[facility] [id number] [place] [address] [place] AST [Catalytic activity/Vol] 18 U/L Normal 14-40 [facility] Comment on above: Order Comment: Speci men Type: BLOOD SPECIMENOrdering Facility: [facility] Address: [address] [place] [address] Performed By: #### 2 4323-8 ####[facility]ENTERNICOLELIA [id number] [place] [address] [place] Bilirubin [Mass/Vol] 0.4 mg/dL Normal 0.2-1.3 [facility] Comment on above: Order Comment: Speci men Type: BLOOD SPECIMENOrdering Facility: [facility] Address: [address] [place] [address] Performed By: #### 2 4323-8 ####[facility]ENTERNICOLELIA [id number] [place] [address] [place] Calcium [Mass/Vol] 11.0 mg/dL High 8.5-10.2 [facility] Comment on above: Order Comment: Speci men Type: BLOOD SPECIMENOrdering Facility: [facility] Address: [address] [place] [address] Performed By: #### 2 4323-8 ####[facility] [id number] [place] [address] [place] Chloride [Moles/Vol] 101 mmol/L Normal 97-105 [facility] Comment on above: Order Comment: Speci men Type: BLOOD SPECIMENOrdering Facility: [facility] Address: [address] [place] [address] Performed By: #### 2 4323-8 ####[facility] [id number] [place] [address] [place] CO2 [Moles/Vol] 12 mmol/L Low 22-30 [facility] Comment on above: Order Comment: Speci men Type: BLOOD SPECIMENOrdering Facility: [facility] Address: [address] [place] [address] Performed By: #### 2 4323-8 ####[facility] [id number] [place] [address] [place] Creatinine [Mass/Vol] 2.24 mg/dL High 0.73-1.22 [facility] Comment on above: Order Comment: Speci men Type: BLOOD SPECIMENOrdering Facility: [facility] Address: [address] [place] [address] Performed By: #### 2 4323-8 ####[facility] [id number] [place] [address] [place] Creatinine and Glomerular filtration rate.predicted panel (S/P/Bld) 28 mL/min/1.73m??? Low >=60 [facility] Comment on above: Order Comment: Speci men Type: BLOOD SPECIMENOrdering Facility: [facility] Address: [address] [place] [address] Result Comment: Lauren mated Glomerular Filtration Rate (eGFR) is calculated using the 2020 CKD-EPI creatinine equation. This equation utilizes serum creatinine, sex, and age as parameters. The creatinine assay has traceable calibration to isotope dilution-mass spectrometry. Refer to KDIGO guidelines for clinical interpretation. In patients with unstable renal function, e.g. those with acute kidney injury, the eGFR may not accurately reflect actual GFR. Performed By: #### 2 4323-8 ####[facility] [id number] [place] [address] [place] Glucose [Mass/Vol] 174 mg/dL High 74-99 [facility] Comment on above: Order Comment: Speci men Type: BLOOD SPECIMENOrdering Facility: [facility] Address: [address] [place] [address] Result Comment: The [place] Diabetes Association (ADA) provides guidance for cutoff values for fasting glucose and random glucose. The ADA defines fasting as no caloric intake for at least 8 hours. Fasting plasma glucose results between 100 to 125 mg/dL indicate increased risk for diabetes (prediabetes).Fasting plasma glucose results greater than or equal to 126 mg/dL meet the criteria for diagnosis of diabetes. In the absence of unequivocal hyperglycemia, results should be confirmed by repeat testing. In a patient with classic symptoms of hyperglycemia or hyperglycemic crisis, random plasma glucose results greater than or equal to 200 mg/dL meet the criteria for diagnosis of diabetes.Reference: Standards of Medical Care in Diabetes 2016, [place] Diabetes Association. Diabetes Care. 2016.39(Suppl 1). Performed By: #### 2 4323-8 ####[facility] ERAide [id number] [place] [address] [place] Potassium [Moles/Vol] 6.1 mmol/L Critically high 3.7-5.1 [facility] Comment on above: Order Comment: Bereketi men Type: BLOOD SPECIMENOrdering Facility: [facility] Address: [address] [place] [address] Performed By: #### 2 4323-8 ####[facility] CENTERCLAUS [id number] [place] [address] [place] Protein [Mass/Vol] 8.5 g/dL High 6.3-8.0 [facility] Comment on above: Order Comment: Speci men Type: BLOOD SPECIMENOrdering Facility: [facility] Address: [address] [place] [address] Performed By: #### 2 4323-8 ####[facility]ENTERNICOLELIAide [id number] [place] [address] [place] Sodium [Moles/Vol] 129 mmol/L Low 136-144 [facility] Comment on above: Order Comment: Speci men Type: BLOOD SPECIMENOrdering Facility: [facility] Address: [address] [place] [address] Performed By: #### 2 4323-8 ####[facility] [id number] [place] [address] [place] Urea nitrogen [Mass/Vol] 55 mg/dL High 9-24 [facility] Comment on above: Order Comment: Speci men Type: BLOOD SPECIMENOrdering Facility: [facility] Address: [address] [place] [address] Performed By: #### 2 4323-8 ####[facility] [id number] [place] [address] [place] CNPNon 12-23-2023 CNPN Normal [facility] CNPNon 12-08-2023 CNPN Normal [facility] CNPNon 11-19-2023 CNPN Normal [facility] CNPNon 11-17-2023 CNPN Normal [facility] CNPNon 11-13-2023 CNPN Normal [facility] CT CHEST W IVCON PEon 2023 CT CHEST W IVCON PE Invalid Interpretation Code [facility] CTA Pulmonary arteries for p ulmonary embolus W contrast Britt 11-13-2023 Radiology Result CRITICAL!! Abnormal [facility] CNOVon 11-12-2023 CNOV Normal [facility] CNPNon 11-12-2023 CNPN Normal [facility] COVID AND INFLUENZA A/B AND RSV NAAT, ROUTINEon 11-12-2023 SARS-CoV-2 (COVID-19) RNA RENETTA+probe Ql (Unsp spec) Abnormal [facility] Comment on above: Performed By: #### C VFLRS ####[facility] LABCLIA [id number] [facility] [id number] [address] [place] COVID & INFLUENZA A/B & RSV NAAT, ROUTINEon 11-12-2023 FLUAV RNA RENETTA+probe Ql (Unsp spec) Detected Abnormal Not Detected [facility] FLUBV RNA RENETTA+probe Ql (Unsp spec) Not detected Not Detected [facility] RSV A RNA RENETTA+probe Ql (Unsp spec) Not detected Not Detected [facility] SARS-CoV-2 (COVID-19) RNA RENETTA+probe Ql (Resp) Not detected See comment [facility] XR CHEST 2V FRONTAL/LATon XR CHEST 2V FRONTAL/LAT Invalid Interpretation Code [facility] XR Chest PA and LateralOrder ed By: Ccf Provider on 11-12-2023 Interpretation and review of laboratory results Abnormal [facility] Radiology Result ACTIONABLE Abnormal [facility] Comment on above: This report contains an incidental or actionable finding. This finding may be a new finding separate from the reason your provider ordered the imaging test or it may be an already known finding that needs additional or continued follow-up. Because of this incidental or actionable finding, you may need another test (imaging or a different type of test). Please contact your provider for the next steps. [facility] XR Chest PA and Lateralon IMPRESSION: 1. Reticulonodular infiltrate in the right lower lobe most compatible with pneumonia. 2. Fullness of the right hilum. Further evaluation with CT chest pulmonary embolism protocol is advised. ACTIONABLE RESULT: FOLLOW-UP Acuity: Actionable Findings: Thoracic-Other Routing Code: CT_1 Recommendation: CT CHEST PE W IVCON Time Frame: At the discretion of the clinical team. COMMUNICATION: Results will be communicated with the ordering provider via [employer] staff message or phone message by [facility] within 2 business days of report finalization. --END OF FINDING-- COMMUNICATION: Communicated with ALLYSON HERNANDEZ on 11/12/2023 11:40 AM via verbal communication. Metal Treater: PSCB Transcribe Date/Time: Nov 12 2023 11:17A Dictated by : ELISE WHITAKER MD This examination was interpreted and the report reviewed and electronically signed by: ELISE WHITAKER MD on Nov 12 2023 11:40AM [facility] DIVISION OF RADIOLOGY * * *Final Report* * * DATE OF EXAM: Nov 12 2023 11:14AM WOX [id number] - XR CHEST 2V FRONTAL/LAT / PROCEDURE REASON: multiple diagnoses * * * * Physician Interpretation * * * * EXAMINATION: CHEST RADIOGRAPH (2 VIEW FRONTAL & LATERAL) CLINICAL HISTORY: Acute cough URI, acute MQ: XC2_6 EXAM DATE/TIME: 11/12/2023 11:14 AM COMPARISON: Chest x-ray dated July 07, 2017 and correlation made to CT chest dated July 09, 2023 RESULT: Lines, tubes, and devices: Right chest port with tip at the superior cavoatrial junction. Lungs and pleura: Reticulonodular infiltrate in the right lower lobe. No significant discernible pleural effusion. No pneumothorax. Cardiomediastinal silhouette: Heart normal in size. Aorta mildly tortuous. Fullness of the right hilum. Bones and soft tissues: Degenerative changes are present within the thoracic spine. DIVISION OF RADIOLOGY Provider, [facility] [place] - 11/12/2023 * * *Final Report* * * DATE OF EXAM: Nov 12 2023 11:14AM WOX [id number] - XR CHEST 2V FRONTAL/LAT / PROCEDURE REASON: multiple diagnoses * * * * Physician Interpretation * * * * EXAMINATION: CHEST RADIOGRAPH (2 VIEW FRONTAL & LATERAL) CLINICAL HISTORY: Acute cough URI, acute MQ: XC2_6 EXAM DATE/TIME: 11/12/2023 11:14 AM COMPARISON: Chest x-ray dated July 07, 2017 and correlation made to CT chest dated July 09, 2023 RESULT: Lines, tubes, and devices: Right chest port with tip at the superior cavoatrial junction. Lungs and pleura: Reticulonodular infiltrate in the right lower lobe. No significant discernible pleural effusion. No pneumothorax. Cardiomediastinal silhouette: Heart normal in size. Aorta mildly tortuous. Fullness of the right hilum. Bones and soft tissues: Degenerative changes are present within the thoracic spine. IMPRESSION IMPRESSION: 1. Reticulonodular infiltrate in the right lower lobe most compatible with pneumonia. 2. Fullness of the right hilum. Further evaluation with CT chest pulmonary embolism protocol is advised. ACTIONABLE RESULT: FOLLOW-UP Acuity: Actionable Findings: Thoracic-Other Routing Code: CT_1 Recommendation: CT CHEST PE W IVCON Time Frame: At the discretion of the clinical team. COMMUNICATION: Results will be communicated with the ordering provider via [employer] staff message or phone message by [facility] within 2 business days of report finalization. --END OF FINDING-- COMMUNICATION: Communicated with ALLYSON HERNANDEZ on 11/12/2023 11:40 AM via verbal communication. Metal Treater: JAYME Transcribe Date/Time: Nov 12 2023 11:17A Dictated by : ELISE WHITAKER MD This examination was interpreted and the report reviewed and electronically signed by: ELISE WHITAKER MD on Nov 12 2023 11:40AM EST [facility] Radiology Study observation (narrative) [facility] CNOVon 11-11-2023 CNOV Normal [facility] CNPNon 11-07-2023 CNPN Normal [facility] CNPNon 10-31-2023 CNPN Normal [facility] CNPNon 10-30-2023 CNPN Normal [facility] MRI 3D POST PROCESSINGon MRI 3D POST PROCESSING * * *Final Report * * * DATE OF EXAM: Oct 30 2023 4:22PM [facility] 0280 - MRI 3D POST PROCESSING / PROCEDURE REASON: multiple diagnoses * * * * Physician Interpretation * * * * EXAMINATION: MRI BRAIN WO IVCON, MRI 3D POST PROCESSING HISTORY: Dementia, cognitive disorder, 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 MQ: [id number]_1 COMPARISON: 11/27/2022. RESULT: QUALITATIVE: Acute Intracranial Process: Small foci of acute infarct within the left and right occipital white matter.. Age related white matter changes ([facility]) rating: White matter lesions: 3 Basal ganglia lesions: 2 Prior intracranial hemorrhage: Parenchymal microhemorrhages: 0 Parenchymal macrohemorrhages: None Subarachnoid: None Qualitative brain and hippocampal volume: There is moderate cortical volume loss in view of the moderate enlargement of the cortical sulci. There is moderate central white matter volume loss in view of the moderate enlargement of the ventricular system. There is severe hippocampal volume loss relative to the parenchymal volume loss elsewhere based on visual inspection Ventricles: Commensurate with volume loss. Brain Parenchymal Signal and Morphology: The brain parenchyma is otherwise within normal limits of signal and morphology. There is no evidence of an intracranial mass or extraaxial fluid collection. Other Significant Findings: Nonspecific right mastoid fluid. Mild mucosal thickening within paranasal sinuses. Moderate pannus formation at C1-C2 articulation. QUANTITATIVE: Exam Quality: Good for volumetric analysis. Segmentation: Negligible mismapping by visual inspection. Quantitative Data: Total Hippocampal Volume: Percentile for Similar Age: 4th Asymmetry Index: 18.3 Superior Lateral Vent Volume: Percentile for Similar Age: 96th Asymmetry Index: -21.6 Inferior Lateral Vent Volume: Percentile for similar age: 99th Asymmetry Index: 5.51 Total Brain Volume Percentile for Similar Age: 22th Concordance between qualitative and quantitative hippocampal volume assessment: Concordant. Change in brain volumes: No previous volumetric study for comparison Mean hippocampal volume loss among normal elderly: 0.7% per year, (-0.3 to 1.7; Kaleigh 2008; also Danish 2010). 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 * Moderate generalized volume loss. * Hippocampal volumes at the 4th percentile when compared to age matched normal controls by quantitative analysis. * Severe white matter disease which is nonspecific but likely reflective of chronic microvascular ischemia. * No evidence of parenchymal microhemorrhages by MRI. * Additional findings, as detailed above. REFERENCES: White Matter Lesions: 0 = No lesions, including symmetrical, well-defined caps or bands 1 = Focal Lesions 2 = Beginning of [place] 3 = Diffuse Involvement of Entire Region Basal Ganglia Lesions: 0 = No Lesions 1 = 1 Focal Lesion (>5mm) 2 = >1 Focal Lesion (>5mm) 3 = Confluent Lesions Danish Zendejas, et al. The clinical use of structural MRI in Alzheimer disease. Nature Reviews Neurology 6;67 (2010). Kaleigh et al. Validation of a fully automated 3D hippocampal segmentation method using subjects with Alzheimer's disease mild cognitive impairment, and elderly controls. Neuroimage 43;59 (2008). Wahlund et al. A New Rating Scale for Age-Related White Matter Changes Applicable to MRI and CT. Stroke. 32:1318 (2001). * Asymmetry index defined as difference between left and right volumes divided by mean or [(L-R/Mean) x 100] (%). Age-matched reference charts measure total hippocampal volume (% of intracranial volume). See results from the analysis charts for details. ACTIONABLE RESULT: FOLLOW-UP Acuity: Actionable Findings: Neurological System-BRAIN Routing Code: NI_1 Recommendation: Unlisted Recommendation (see report) Time Frame: At the discretion of the clinical team. COMMUNICATION: Results will be communicated with the ordering provider via [employer] staff message or phone message by [facility] within 2 business days of report finalization. --END OF FINDING-- The result was submitted to the file room to be conveyed to the ordering physician as a wet read per protocol. Metal Treater: PSCB Transcribe Date/Time: Oct 31 2023 11:09A Dictated by : ANATOLIY ROY MD This examination was interpreted and the report reviewed and electronically signed by: ANATOLIY ROY MD on Oct 31 2023 11:26AM EST [id number] CN ACTIONABLE Invalid Interpretation Code [facility] MRI BRAIN WO IVCONon 024 MRI BRAIN WO IVCON * * *Final Report* * * DATE OF EXAM: Oct 30 2023 4:22PM [facility] 0294 - MRI BRAIN WO IVCON / PROCEDURE REASON: F03.90, F10.220 * * * * Physician Interpretation * * * * EXAMINATION: MRI BRAIN WO IVCON, MRI 3D POST PROCESSING HISTORY: Dementia, cognitive disorder, 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 MQ: [id number] COMPARISON: 11/27/2022. RESULT: QUALITATIVE: Acute Intracranial Process: Small foci of acute infarct within the left and right occipital white matter.. Age related white matter changes (ARWMC) rating: White matter lesions: 3 Basal ganglia lesions: 2 Prior intracranial hemorrhage: Parenchymal microhemorrhages: 0 Parenchymal macrohemorrhages: None Subarachnoid: None Qualitative brain and hippocampal volume: There is moderate cortical volume loss in view of the moderate enlargement of the cortical sulci. There is moderate central white matter volume loss in view of the moderate enlargement of the ventricular system. There is severe hippocampal volume loss relative to the parenchymal volume loss elsewhere based on visual inspection Ventricles: Commensurate with volume loss. Brain Parenchymal Signal and Morphology: The brain parenchyma is otherwise within normal limits of signal and morphology. There is no evidence of an intracranial mass or extraaxial fluid collection. Other Significant Findings: Nonspecific right mastoid fluid. Mild mucosal thickening within paranasal sinuses. Moderate pannus formation at C1-C2 articulation. QUANTITATIVE: Exam Quality: Good for volumetric analysis. Segmentation: Negligible mismapping by visual inspection. Quantitative Data: Total Hippocampal Volume: Percentile for Similar Age: 4th Asymmetry Index: 18.3 Superior Lateral Vent Volume: Percentile for Similar Age: 96th Asymmetry Index: -21.6 Inferior Lateral Vent Volume: Percentile for similar age: 99th Asymmetry Index: 5.51 Total Brain Volume Percentile for Similar Age: 22th Concordance between qualitative and quantitative hippocampal volume assessment: Concordant. Change in brain volumes: No previous volumetric study for comparison Mean hippocampal volume loss among normal elderly: 0.7% per year, (-0.3 to 1.7; Kaleigh 2008; also Danish 2010). 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 * Moderate generalized volume loss. * Hippocampal volumes at the 4th percentile when compared to age matched normal controls by quantitative analysis. * Severe white matter disease which is nonspecific but likely reflective of chronic microvascular ischemia. * No evidence of parenchymal microhemorrhages by MRI. * Additional findings, as detailed above. REFERENCES: White Matter Lesions: 0 = No lesions, including symmetrical, well-defined caps or bands 1 = Focal Lesions 2 = Beginning of [place] 3 = Diffuse Involvement of Entire Region Basal Ganglia Lesions: 0 = No Lesions 1 = 1 Focal Lesion (>5mm) 2 = >1 Focal Lesion (>5mm) 3 = Confluent Lesions Danish Zendejas, et al. The clinical use of structural MRI in Alzheimer disease. Nature Reviews Neurology 6;67 (2010). Kaleigh et al. Validation of a fully automated 3D hippocampal segmentation method using subjects with Alzheimer's disease mild cognitive impairment, and elderly controls. Neuroimage 43;59 (2008). Wahlund et al. A New Rating Scale for Age-Related White Matter Changes Applicable to MRI and CT. Stroke. 32:1318 (2001). * Asymmetry index defined as difference between left and right volumes divided by mean or [(L-R/Mean) x 100] (%). Age-matched reference charts measure total hippocampal volume (% of intracranial volume). See results from the analysis charts for details. ACTIONABLE RESULT: FOLLOW-UP Acuity: Actionable Findings: Neurological System-BRAIN Routing Code: NI_1 Recommendation: Unlisted Recommendation (see report) Time Frame: At the discretion of the clinical team. COMMUNICATION: Results will be communicated with the ordering provider via [employer] staff message or phone message by [facility] within 2 business days of report finalization. --END OF FINDING-- The result was submitted to the file room to be conveyed to the ordering physician as a wet read per protocol. Metal Treater: PSCB Transcribe Date/Time: Oct 31 2023 11:09A Dictated by : ANATOLIY ROY MD This examination was interpreted and the report reviewed and electronically signed by: ANATOLIY ROY MD on Oct 31 2023 11:26AM EST [id number] CN ACTIONABLE Invalid Interpretation Code [facility] XR Pelvis and Hip - right AP and Lateral frogon 10-30-2023 IMPRESSION: No acute osseous abnormality Metal Treater: [facility] Transcribe Date/Time: Oct 30 2023 10:31A Dictated by : SOWMYA PARNELL MD This examination was interpreted and the report reviewed and electronically signed by: SOWMYA PARNELL MD on Oct 30 2023 10:32AM EST DIVISION OF RADIOLOGY * * *Final Report* * * DATE OF EXAM: Oct 29 2023 3:27PM [facility] 5352 - XR HIP 3V PELV+ AP/LAT RT / PROCEDURE REASON: Pain of right hip * * * * Physician Interpretation * * * * EXAMINATION: XR HIP 3V PELV+ AP/LAT RT CLINICAL HISTORY: Right hip pain Technique: XR HIP 3V PELV+ AP/LAT RT -- RIGHT with 3 views on 3 images Comparison: X-ray pelvis and right hip 06/15/2019 RESULT: No acute fracture or dislocation. Joint spaces are maintained. Small bilateral acetabular osteophytes. Bilateral sacroiliac degenerative disease. Vascular calcifications are noted. DIVISION OF RADIOLOGY Provider, [facility] [place] - 10/30/2023 * * *Final Report* * * DATE OF EXAM: Oct 29 2023 3:27PM [facility] 5352 - XR HIP 3V PELV+ AP/LAT RT / PROCEDURE REASON: Pain of right hip * * * * Physician Interpretation * * * * EXAMINATION: XR HIP 3V PELV+ AP/LAT RT CLINICAL HISTORY: Right hip pain Technique: XR HIP 3V PELV+ AP/LAT RT -- RIGHT with 3 views on 3 images Comparison: X-ray pelvis and right hip 06/15/2019 RESULT: No acute fracture or dislocation. Joint spaces are maintained. Small bilateral acetabular osteophytes. Bilateral sacroiliac degenerative disease. Vascular calcifications are noted. IMPRESSION IMPRESSION: No acute osseous abnormality Metal Treater: PSCB Transcribe Date/Time: Oct 30 2023 10:31A Dictated by : SOWMYA PARNELL MD This examination was interpreted and the report reviewed and electronically signed by: SOWMYA PARNELL MD on Oct 30 2023 10:32AM EST [facility] XR Pelvis and Hip - right AP and Lateral frogOrdered By: [facility] Provider on 10-30-2023 [facility] XR HIP 3V PELV+ AP/LAT RTon 10-29-2023 XR HIP 3V PELV+ AP/LAT RT Normal [facility] XR Pelvis and Hip - right AP and Lateral frogon 10-29-2023 Radiology Study observation (narrative) [facility] CNPNon 10-28-2023 CNPN Normal [facility] Bacteria Ur Culton Bacteria identified Cx Nom (U) ORGANISM ID: 1 50,000-<100,000 CFU/ml Normal urogenital adam Normal [facility] Comment on above: Performed By: #### 6 30-4 ####[facility] LABCLIA [id number] [address] [place] CNOVon 10-27-2023 CNOV Normal [facility] UA DIP, URINE (POC)on 2023 BILIRUBIN UA (POCT) Negative Negative Nazario [facility] CLARITY UA (POCT) Clear [facility] COLOR UA (POCT) Other [facility] GLUCOSE UA (POCT) Negative Negative mg/dL [facility] Hemoglobin Ql (U) Moderate Abnormal Negative [facility] KETONE UA (POCT) Negative Negative mg/dL [facility] LEUKOCYTES UA (POCT) Small Abnormal Negative [facility] NITRITE UA (POCT) Negative Negative [facility] PH UA (POCT) 5.5 4.5 - 8.0 [facility] Protein Ql (U) 100 mg/dL Abnormal Negative mg/dL [facility] SPECIFIC GRAVITY UA (POCT) >=1.030 1.005 - 1.030 [facility] UROBILINOGEN UA (POCT) 0.2 E.U./dL Lisbeth l E.U./dL [facility] CNOVon 10-15-2023 CNOV Normal [facility] CNPNon 09-19-2023 CNPN Normal [facility] CBC W Auto Differential pane l (Bld)on 09-18-2023 Basophils (Bld) [#/Vol] 0.03 10*3/uL Normal <0.11 [facility] Comment on above: Order Comment: Speci men Type: BLOOD SPECIMENOrdering Facility: [facility] Address: [address] [place] [address] Performed By: #### 5 7021-8 ####[facility] LABIA [id number] [place] [address] [place] Basophils/100 WBC (Bld) 0.5 % Normal [facility] Comment on above: Order Comment: Speci men Type: BLOOD SPECIMENOrdering Facility: [facility] Address: [address] [place] [address] Performed By: #### 5 7021-8 ####[facility] LABIA [id number] [place] [address] [place] Differential cell count method Nom (Bld) Auto Normal [facility] Comment on above: Order Comment: Speci men Type: BLOOD SPECIMENOrdering Facility: [facility] Address: [address] [place] [address] Performed By: #### 5 7021-8 ####[facility] LABIA [id number] [place] [address] [place] Eosinophils (Bld) [#/Vol] 0.12 10*3/uL Normal <0.46 [facility] Comment on above: Order Comment: Speci men Type: BLOOD SPECIMENOrdering Facility: [facility] Address: [address] [place] [address] Performed By: #### 5 7021-8 ####[facility] LABCLIA [id number] [place] [address] [place] Eosinophils/100 WBC (Bld) 1.9 % Normal [facility] Comment on above: Order Comment: Speci men Type: BLOOD SPECIMENOrdering Facility: [facility] Address: [address] [place] [address] Performed By: #### 5 7021-8 ####[facility] LABCLIA [id number] [place] [address] [place] Erythrocyte distribution width (RBC) [Ratio] 14.6 % Normal 11.5-15.0 [facility] Comment on above: Order Comment: Speci men Type: BLOOD SPECIMENOrdering Facility: [facility] Address: [address] [place] [address] Performed By: #### 5 7021-8 ####[facility] LABIA [id number] [place] [address] [place] Hematocrit (Bld) [Volume fraction] 40.4 % Normal 39.0-51.0 [facility] Comment on above: Order Comment: Speci men Type: BLOOD SPECIMENOrdering Facility: [facility] Address: [address] [place] [address] Performed By: #### 5 7021-8 ####[facility] LABCLIA [id number] [place] [address] [place] Hemoglobin (Bld) [Mass/Vol] 12.8 g/dL Low 13.0-17.0 [facility] Comment on above: Order Comment: Speci men Type: BLOOD SPECIMENOrdering Facility: [facility] Address: [address] [place] [address] Performed By: #### 5 7021-8 ####[facility] LABCLIA [id number] [place] [address] [place] Immature granulocytes (Bld) [#/Vol] 0.03 10*3/uL Normal <0.10 [facility] Comment on above: Order Comment: Speci men Type: BLOOD SPECIMENOrdering Facility: [facility] Address: [address] [place] [address] Performed By: #### 5 7021-8 ####[facility] LABCLIA [id number] [place] [address] [place] Immature granulocytes/100 WBC (Bld) 0.5 % Normal [facility] Comment on above: Order Comment: Speci men Type: BLOOD SPECIMENOrdering Facility: [facility] Address: [address] [place] [address] Performed By: #### 5 7021-8 ####[facility] LABCLIA [id number] [place] [address] [place] Lymphocytes (Bld) [#/Vol] 1.01 10*3/uL Normal 1.00-4.00 [facility] Comment on above: Order Comment: Speci men Type: BLOOD SPECIMENOrdering Facility: [facility] Address: [address] [place] [address] Performed By: #### 5 7021-8 ####[facility] LABCLIA [id number] [place] [address] [place] Lymphocytes/100 WBC (Bld) 16.2 % Normal [facility] Comment on above: Order Comment: Speci men Type: BLOOD SPECIMENOrdering Facility: [facility] Address: [address] [place] [address] Performed By: #### 5 7021-8 ####[facility] LABCLIA [id number] [place] [address] [place] MCH (RBC) [Entitic mass] 29.2 pg Normal 26.0-34.0 [facility] Comment on above: Order Comment: Speci men Type: BLOOD SPECIMENOrdering Facility: [facility] Address: [address] [place] [address] Performed By: #### 5 7021-8 ####[facility] LABCLIA [id number] [place] [address] [place] MCHC (RBC) [Mass/Vol] 31.7 g/dL Normal 30.5-36.0 [facility] Comment on above: Order Comment: Speci men Type: BLOOD SPECIMENOrdering Facility: [facility] Address: [address] [place] [address] Performed By: #### 5 7021-8 ####[facility] LABIA [id number] [place] [address] [place] MCV (RBC) [Entitic vol] 92.2 fL Normal 80.0-100.0 [facility] Comment on above: Order Comment: Speci men Type: BLOOD SPECIMENOrdering Facility: [facility] Address: [address] [place] [address] Performed By: #### 5 7021-8 ####[facility] LABIA [id number] [place] [address] [place] Monocytes (Bld) [#/Vol] 0.63 10*3/uL Normal <0.87 [facility] Comment on above: Order Comment: Speci men Type: BLOOD SPECIMENOrdering Facility: [facility] Address: [address] [place] [address] Performed By: #### 5 7021-8 ####[facility] LABCLIA [id number] [place] [address] [place] Monocytes/100 WBC (Bld) 10.1 % Normal [facility] Comment on above: Order Comment: Speci men Type: BLOOD SPECIMENOrdering Facility: [facility] Address: [address] [place] [address] Performed By: #### 5 7021-8 ####[facility] LABCLIA [id number] [place] [address] [place] Neutrophils (Bld) [#/Vol] 4.42 10*3/uL Normal 1.45-7.50 [facility] Comment on above: Order Comment: Speci men Type: BLOOD SPECIMENOrdering Facility: [facility] Address: [address] [place] [address] Performed By: #### 5 7021-8 ####[facility] LABCLIA [id number] [place] [address] [place] Neutrophils/100 WBC (Bld) 70.8 % Normal [facility] Comment on above: Order Comment: Speci men Type: BLOOD SPECIMENOrdering Facility: [facility] Address: [address] [place] [address] Performed By: #### 5 7021-8 ####[facility] LABCLIA [id number] [place] [address] [place] Nucleated RBC (Bld) [#/Vol] 10*3/uL Normal <0.01 [facility] Comment on above: Order Comment: Speci men Type: BLOOD SPECIMENOrdering Facility: [facility] Address: [address] [place] [address] Performed By: #### 5 7021-8 ####[facility] LABCLIA [id number] [place] [address] [place] Nucleated RBC/100 WBC (Bld) [Ratio] 0.0 /100 WBC Normal [facility] Comment on above: Order Comment: Speci men Type: BLOOD SPECIMENOrdering Facility: [facility] Address: [address] [place] [address] Performed By: #### 5 7021-8 ####[facility] LABCLIA [id number] [place] [address] [place] Platelet mean volume (Bld) [Entitic vol] 8.5 fL Low 9.0-12.7 [facility] Comment on above: Order Comment: Speci men Type: BLOOD SPECIMENOrdering Facility: [facility] Address: [address] [place] [address] Performed By: #### 5 7021-8 ####[facility] LABCLIA [id number] [place] [address] [place] Platelets (Bld) [#/Vol] 225 10*3/uL Normal 150-400 [facility] Comment on above: Order Comment: Speci men Type: BLOOD SPECIMENOrdering Facility: [facility] Address: [address] [place] [address] Performed By: #### 5 7021-8 ####[facility] LABCLIA [id number] [place] [address] [place] RBC (Bld) [#/Vol] 4.38 10*6/uL Normal 4.20-6.00 [facility] Comment on above: Order Comment: Speci men Type: BLOOD SPECIMENOrdering Facility: [facility] Address: [address] [place] [address] Performed By: #### 5 7021-8 ####[facility] LABCLIA [id number] [place] [address] [place] WBC (Bld) [#/Vol] 6.24 10*3/uL Normal 3.70-11.00 [facility] Comment on above: Order Comment: Speci men Type: BLOOD SPECIMENOrdering Facility: [facility] Address: [address] [place] [address] Performed By: #### 5 7021-8 ####[facility] LABCLIA [id number] [place] [id number] [place] CNOVon 09-18-2023 CNOV Normal [facility] Comprehensive metabolic 2000 panelon 09-18-2023 Albumin [Mass/Vol] 4.2 g/dL Normal 3.9-4.9 [facility] Comment on above: Order Comment: Speci men Type: BLOOD SPECIMENOrdering Facility: [facility] Address: [address] [place] [id number] Performed By: #### 2 4323-8, 0-3 ####[facility] LABCLIA [id number] [address] [address] [place] ALP [Catalytic activity/Vol] 99 U/L Normal 38-113 [facility] Comment on above: Order Comment: Speci men Type: BLOOD SPECIMENOrdering Facility: [facility] Address: [address] [place] [id number] Performed By: #### 2 4323-8, 0-3 ####[facility] LABCLIA [id number] [place] [address] [place] ALT [Catalytic activity/Vol] 25 U/L Normal 10-54 [facility] Comment on above: Order Comment: Speci men Type: BLOOD SPECIMENOrdering Facility: [facility] Address: [address] [place] [address] Performed By: #### 2 4323-8, 3039-3 ####[facility] LABCLIA [id number] [place] [id number] [place] Anion gap [Moles/Vol] 11 mmol/L Normal 9-18 [facility] Comment on above: Order Comment: Speci men Type: BLOOD SPECIMENOrdering Facility: [facility] Address: [address] [place] [id number] Performed By: #### 2 4323-8, 3039-3 ####[facility] LABCLIA [id number] [place] [id number] [place] AST [Catalytic activity/Vol] 24 U/L Normal 14-40 [facility] Comment on above: Order Comment: Speci men Type: BLOOD SPECIMENOrdering Facility: [facility] Address: [address] [place] [id number] Performed By: #### 2 4323-8, 0-3 ####[facility] LABCLIA [id number] [place] [id number] [place] Bilirubin [Mass/Vol] 0.5 mg/dL Normal 0.2-1.3 [facility] Comment on above: Order Comment: Speci men Type: BLOOD SPECIMENOrdering Facility: [facility] Address: [address] [place] [address] Performed By: #### 2 4323-8, 3040-3 ####[facility] LABCLIA [id number] [place] [address] [place] Calcium [Mass/Vol] 9.6 mg/dL Normal 8.5-10.2 [facility] Comment on above: Order Comment: Speci men Type: BLOOD SPECIMENOrdering Facility: [facility] Address: [address] [place] [address] Performed By: #### 2 4323-8, 3039-3 ####[facility] LABCLIA [id number] [place] [address] [place] Chloride [Moles/Vol] 101 mmol/L Normal 97-105 [facility] Comment on above: Order Comment: Speci men Type: BLOOD SPECIMENOrdering Facility: [facility] Address: [address] [place] [address] Performed By: #### 2 4323-8, 3039-3 ####[facility] LABCLIA [id number] [place] [address] [place] CO2 [Moles/Vol] 25 mmol/L Normal 22-30 [facility] Comment on above: Order Comment: Speci men Type: BLOOD SPECIMENOrdering Facility: [facility] Address: [address] [place] [address] Performed By: #### 2 4323-8, 3040-3 ####[facility] LABCLIA [id number] [place] [id number] [place] Creatinine [Mass/Vol] 0.97 mg/dL Normal 0.73-1.22 [facility] Comment on above: Order Comment: Speci men Type: BLOOD SPECIMENOrdering Facility: [facility] Address: [address] [place] [address] Performed By: #### 2 4323-8, 3040-3 ####[facility] LABCLIA [id number] [place] [address] [place] Creatinine and Glomerular filtration rate.predicted panel (S/P/Bld) 77 mL/min/1.73m??? Normal >=60 [facility] Comment on above: Order Comment: Aisha bates Type: BLOOD SPECIMENOrdering Facility: [facility] Address: [address] [place] [address] Result Comment: Lauren mated Glomerular Filtration Rate (eGFR) is calculated using the 2020 CKD-EPI creatinine equation. This equation utilizes serum creatinine, sex, and age as parameters. The creatinine assay has traceable calibration to isotope dilution-mass spectrometry. Refer to KDIGO guidelines for clinical interpretation. In patients with unstable renal function, e.g. those with acute kidney injury, the eGFR may not accurately reflect actual GFR. Performed By: #### 2 4323-8, 3040-3 ####[facility] LABCLIA [id number] [place] [address] [place] Glucose [Mass/Vol] 109 mg/dL High 74-99 [facility] Comment on above: Order Comment: Aisha bates Type: BLOOD SPECIMENOrdering Facility: [facility] Address: [address] [place] [address] Result Comment: The [place] Diabetes [employer] (ADA) provides guidance for cutoff values for fasting glucose and random glucose. The ADA defines fasting as no caloric intake for at least 8 hours. Fasting plasma glucose results between 100 to 125 mg/dL indicate increased risk for diabetes (prediabetes).Fasting plasma glucose results greater than or equal to 126 mg/dL meet the criteria for diagnosis of diabetes. In the absence of unequivocal hyperglycemia, results should be confirmed by repeat testing. In a patient with classic symptoms of hyperglycemia or hyperglycemic crisis, random plasma glucose results greater than or equal to 200 mg/dL meet the criteria for diagnosis of diabetes.Reference: Standards of Medical Care in Diabetes 2016, [place] [employer]. Diabetes Care. 2016.39(Suppl 1). Performed By: #### 2 4323-8, 0-3 ####[facility] LABCLIA [id number] [address] [address] [place] Potassium [Moles/Vol] 4.7 mmol/L Normal 3.7-5.1 [facility] Comment on above: Order Comment: Speci men Type: BLOOD SPECIMENOrdering Facility: [facility] Address: [address] [place] [address] Performed By: #### 2 4323-8, 3039-3 ####[facility] LABCLIA [id number] [place] [address] [place] Protein [Mass/Vol] 6.7 g/dL Normal 6.3-8.0 [facility] Comment on above: Order Comment: Speci men Type: BLOOD SPECIMENOrdering Facility: [facility] Address: [address] [place] [address] Performed By: #### 2 4323-8, 3039-3 ####[facility] LABCLIA [id number] [place] [address] [place] Sodium [Moles/Vol] 137 mmol/L Normal 136-144 [facility] Comment on above: Order Comment: Speci men Type: BLOOD SPECIMENOrdering Facility: [facility] Address: [address] [place] [address] Performed By: #### 2 43238, 3039-3 ####[facility] LABCLIA [id number] [address] [address] [place] Urea nitrogen [Mass/Vol] 19 mg/dL Normal 9-24 [facility] Comment on above: Order Comment: Speci men Type: BLOOD SPECIMENOrdering Facility: [facility] Address: [address] [place] [address] Performed By: #### 2 4323-8, 0-3 ####[facility] LABCLIA [id number] [place] [address] [place] Lipase SerPl-cCncon 09-18-19 24 Lipase [Catalytic activity/Vol] 21 U/L Normal 16-61 [facility] Comment on above: Order Comment: Speci men Type: BLOOD SPECIMENOrdering Facility: [facility] Address: [address] [place] [address] Performed By: #### 2 4323-8, 3040-3 ####[facility] LABCLIA [id number] [place] [address] [place] CNOVon 09-01-2023 CNOV Normal [facility] CNOVon 08-01-2023 CNOV Normal [facility] CNOVon 07-29-2023 CNOV Normal [facility] US CAROTID ARTERIES JANELL VAS LABon 07-29-2023 US CAROTID ARTERIES JANELL VAS LAB Normal [facility] CNCOon 07-25-2023 CNCO Letter Text Normal [facility] CNOVSPon 07-24-2023 CNOVSP Normal [facility] CNPNon 07-22-2023 CNPN Normal [facility] CNPNon 07-17-2023 CNPN Normal [facility] CNPNon 07-15-2023 CNPN Normal [facility] CNPNon 07-11-2023 CNPN Normal [facility] CNPNon 07-10-2023 CNPN Normal [facility] CBC W Auto Differential pane l (Bld)on 07-09-2023 Basophils (Bld) [#/Vol] 0.03 10*3/uL <0.11 k/uL [facility] Basophils/100 WBC (Bld) 0.5 % [facility] Differential cell count method Nom (Bld) Auto [facility] Eosinophils (Bld) [#/Vol] 0.23 10*3/uL <0.46 k/uL [facility] Eosinophils/100 WBC (Bld) 3.6 % [facility] Erythrocyte distribution width (RBC) [Ratio] 14.3 % 11.5 - 15.0 % [facility] Hematocrit (Bld) [Volume fraction] 37.6 % Low 39.0 - 51.0 % [facility] Hemoglobin (Bld) [Mass/Vol] 12.2 g/dL Low 13.0 - 17.0 g/dL [facility] Immature granulocytes (Bld) [#/Vol] <0.10 k/uL [facility] Immature granulocytes/100 WBC (Bld) 0.3 % [facility] Lymphocytes (Bld) [#/Vol] 1.16 10*3/uL 1.00 - 4.00 k/uL [facility] Lymphocytes/100 WBC (Bld) 18.2 % [facility] MCH (RBC) [Entitic mass] 29.9 pg 26.0 - 34.0 pg [facility] MCHC (RBC) [Mass/Vol] 32.4 g/dL 30.5 - 36.0 g/dL [facility] MCV (RBC) [Entitic vol] 92.2 fL 80.0 - 100.0 fL [facility] Monocytes (Bld) [#/Vol] 0.65 10*3/uL <0.87 k/uL [facility] Monocytes/100 WBC (Bld) 10.2 % [facility] Neutrophils (Bld) [#/Vol] 4.29 10*3/uL 1.45 - 7.50 k/uL [facility] Neutrophils/100 WBC (Bld) 67.2 % [facility] Nucleated RBC (Bld) [#/Vol] <0.01 k/uL [facility] Nucleated RBC/100 WBC (Bld) [Ratio] 0.0 /100 WBC [facility] Platelet mean volume (Bld) [Entitic vol] 8.4 fL Low 9.0 - 12.7 fL [facility] Platelets (Bld) [#/Vol] 175 10*3/uL 150 - 400 k/uL [facility] RBC (Bld) [#/Vol] 4.08 10*6/uL Low 4.20 - 6.0 0 m/uL [facility] WBC (Bld) [#/Vol] 6.38 10*3/uL 3.70 - 11. 00 k/uL [facility] Basophils (Bld) [#/Vol] 0.03 10*3/uL Normal <0.11 [facility] Comment on above: Order Comment: Speci men Type: BLOOD SPECIMENOrdering Facility: [facility] Address: [address] [place] [address] Performed By: #### 5 7021-8 ####[facility] MILLWNCLIA [id number] [place] [address] [place] Basophils/100 WBC (Bld) 0.5 % Normal [facility] Comment on above: Order Comment: Speci men Type: BLOOD SPECIMENOrdering Facility: [facility] Address: [address] [place] [address] Performed By: #### 5 7021-8 ####[facility] H[facility]PITALLIA [id number] [place] [address] [place] Differential cell count method Nom (Bld) Auto Normal [facility] Comment on above: Order Comment: Speci men Type: BLOOD SPECIMENOrdering Facility: [facility] Address: [address] [place] [address] Performed By: #### 5 7021-8 ####[facility] HOSPITALLIA [id number] [place] [address] [place] Eosinophils (Bld) [#/Vol] 0.23 10*3/uL Normal <0.46 [facility] Comment on above: Order Comment: Speci men Type: BLOOD SPECIMENOrdering Facility: [facility] Address: [address] [place] [address] Performed By: #### 5 7021-8 ####[facility] HOSPITALLIA [id number] [place] [address] [place] Eosinophils/100 WBC (Bld) 3.6 % Normal [facility] Comment on above: Order Comment: Speci men Type: BLOOD SPECIMENOrdering Facility: [facility] Address: [address] [place] [address] Performed By: #### 5 7021-8 ####[facility] CENTERNCLIA [id number] [place] [address] [place] Erythrocyte distribution width (RBC) [Ratio] 14.3 % Normal 11.5-15.0 [facility] Comment on above: Order Comment: Speci men Type: BLOOD SPECIMENOrdering Facility: [facility] Address: [address] [place] [address] Performed By: #### 5 7021-8 ####[facility] [id number] [place] [address] [place] Hematocrit (Bld) [Volume fraction] 37.6 % Low 39.0-51.0 [facility] Comment on above: Order Comment: Speci men Type: BLOOD SPECIMENOrdering Facility: [facility] Address: [address] [place] [address] Performed By: #### 5 7021-8 ####[facility] [id number] [place] [address] [place] Hemoglobin (Bld) [Mass/Vol] 12.2 g/dL Low 13.0-17.0 [facility] Comment on above: Order Comment: Speci men Type: BLOOD SPECIMENOrdering Facility: [facility] Address: [address] [place] [address] Performed By: #### 5 7021-8 ####[facility] [id number] [place] [address] [place] Immature granulocytes (Bld) [#/Vol] 10*3/uL Normal <0.10 [facility] Comment on above: Order Comment: Speci men Type: BLOOD SPECIMENOrdering Facility: [facility] Address: [address] [place] [address] Performed By: #### 5 7021-8 ####[facility] [id number] [place] [address] [place] Immature granulocytes/100 WBC (Bld) 0.3 % Normal [facility] Comment on above: Order Comment: Speci men Type: BLOOD SPECIMENOrdering Facility: [facility] Address: [address] [place] [address] Performed By: #### 5 7021-8 ####[facility] MILLWNCLIA [id number] [place] [address] [place] Lymphocytes (Bld) [#/Vol] 1.16 10*3/uL Normal 1.00-4.00 [facility] Comment on above: Order Comment: Speci men Type: BLOOD SPECIMENOrdering Facility: [facility] Address: [address] [place] [address] Performed By: #### 5 7021-8 ####[facility] CENTERNCLIA [id number] [place] [address] [place] Lymphocytes/100 WBC (Bld) 18.2 % Normal [facility] Comment on above: Order Comment: Speci men Type: BLOOD SPECIMENOrdering Facility: [facility] Address: [address] [place] [address] Performed By: #### 5 7021-8 ####[facility] H[facility]PITALWNCLIA [id number] [place] [address] [place] MCH (RBC) [Entitic mass] 29.9 pg Normal 26.0-34.0 [facility] Comment on above: Order Comment: Speci men Type: BLOOD SPECIMENOrdering Facility: [facility] Address: [address] [place] [address] Performed By: #### 5 7021-8 ####[facility] MILLWNCLIA [id number] [place] [address] [place] MCHC (RBC) [Mass/Vol] 32.4 g/dL Normal 30.5-36.0 [facility] Comment on above: Order Comment: Speci men Type: BLOOD SPECIMENOrdering Facility: [facility] Address: [address] [place] [address] Performed By: #### 5 7021-8 ####[facility] MILLUNITED HOSPITAL DISTRICT HOSPITALA [id number] [place] [address] [place] MCV (RBC) [Entitic vol] 92.2 fL Normal 80.0-100.0 [facility] Comment on above: Order Comment: Speci men Type: BLOOD SPECIMENOrdering Facility: [facility] Address: [address] [place] [address] Performed By: #### 5 7021-8 ####[facility] [id number] [place] [address] [place] Monocytes (Bld) [#/Vol] 0.65 10*3/uL Normal <0.87 [facility] Comment on above: Order Comment: Speci men Type: BLOOD SPECIMENOrdering Facility: [facility] Address: [address] [place] [address] Performed By: #### 5 7021-8 ####[facility] [id number] [place] [address] [place] Monocytes/100 WBC (Bld) 10.2 % Normal [facility] Comment on above: Order Comment: Speci men Type: BLOOD SPECIMENOrdering Facility: [facility] Address: [address] [place] [address] Performed By: #### 5 7021-8 ####[facility] [id number] [place] [address] [place] Neutrophils (Bld) [#/Vol] 4.29 10*3/uL Normal 1.45-7.50 [facility] Comment on above: Order Comment: Speci men Type: BLOOD SPECIMENOrdering Facility: [facility] Address: [address] [place] [address] Performed By: #### 5 7021-8 ####[facility]PITALLIA [id number] [place] [address] [place] Neutrophils/100 WBC (Bld) 67.2 % Normal [facility] Comment on above: Order Comment: Speci men Type: BLOOD SPECIMENOrdering Facility: [facility] Address: [address] [place] [address] Performed By: #### 5 7021-8 ####[facility] SAULORENEE [id number] [place] [address] [place] Nucleated RBC (Bld) [#/Vol] 10*3/uL Normal <0.01 [facility] Comment on above: Order Comment: Speci men Type: BLOOD SPECIMENOrdering Facility: [facility] Address: [address] [place] [address] Performed By: #### 5 7021-8 ####[facility] CENTERNICOLEACADIA [facility]ALTH[facility] [id number] [place] [address] [place] Nucleated RBC/100 WBC (Bld) [Ratio] 0.0 /100 WBC Normal [facility] Comment on above: Order Comment: Speci men Type: BLOOD SPECIMENOrdering Facility: [facility] Address: [address] [place] [address] Performed By: #### 5 7021-8 ####[facility] [id number] [place] [address] [place] Platelet mean volume (Bld) [Entitic vol] 8.4 fL Low 9.0-12.7 [facility] Comment on above: Order Comment: Speci men Type: BLOOD SPECIMENOrdering Facility: [facility] Address: [address] [place] [address] Performed By: #### 5 7021-8 ####[facility]OSPITALLIA [id number] [place] [address] [place] Platelets (Bld) [#/Vol] 175 10*3/uL Normal 150-400 [facility] Comment on above: Order Comment: Speci men Type: BLOOD SPECIMENOrdering Facility: [facility] Address: [address] [place] [address] Performed By: #### 5 7021-8 ####[facility] HOSPITALWNCLIA [id number] [place] [address] [place] RBC (Bld) [#/Vol] 4.08 10*6/uL Low 4.20-6.00 [facility] Comment on above: Order Comment: Speci men Type: BLOOD SPECIMENOrdering Facility: [facility] Address: [address] [place] [address] Performed By: #### 5 7021-8 ####[facility]ENTERNCLIA [id number] [place] [address] [place] WBC (Bld) [#/Vol] 6.38 10*3/uL Normal 3.70-11.00 [facility] Comment on above: Order Comment: Speci men Type: BLOOD SPECIMENOrdering Facility: [facility] Address: [address] [place] [address] Performed By: #### 5 7021-8 ####[facility] CENTERNCA [id number] [place] [address] [place] CEA SerPl-mCncon 07-09-2023 Carcinoembryonic Ag [Mass/Vol] 1.5 ng/mL Normal <=2.9 [facility] Comment on above: Order Comment: Speci men Type: BLOOD SPECIMENOrdering Facility: [facility] Address: [address] [place] [address] Result Comment: Carc inoembryonic antigen test is used as an aid in monitoring response to treatment or recurrence in patients with established colorectal, breast, lung, prostatic, pancreatic, and ovarian carcinomas. Clinical correlation is required.The Carcinoembryonic antigen test was performed using the Rafael DLS Unicel DXI paramagnetic particle chemiluminescent immunoassay method. Results obtained with different assay methods or kits cannot be used interchangeably. Performed By: #### 2 039-6 ####[facility] LABCLIA [id number] [facility] [id number], [place] [address] [place] ABD/PEL W IVCONon 023 CT ABD/PEL W IVCON Normal [facility] CT CHEST W IVCONon 3 CT CHEST W IVCON Normal [facility] Comprehensive metabolic 2000 panelon 07-09-2023 Albumin [Mass/Vol] 4.1 g/dL 3.9 - 4.9 g/dL [facility] ALP [Catalytic activity/Vol] 97 U/L 38 - 113 U/L [facility] ALT [Catalytic activity/Vol] 14 U/L 10 - 54 U/L [facility] Anion gap [Moles/Vol] 9 mmol/L 9 - 18 mmol/L [facility] AST [Catalytic activity/Vol] 17 U/L 14 - 40 U/L [facility] Bilirubin [Mass/Vol] 0.4 mg/dL 0.2 - 1 .3 mg/dL [facility] Calcium [Mass/Vol] 9.1 mg/dL 8.5 - 10. 2 mg/dL [facility] Chloride [Moles/Vol] 105 mmol/L 97 - 10 5 mmol/L [facility] CO2 [Moles/Vol] 24 mmol/L 22 - 30 mmol/L [facility] Creatinine [Mass/Vol] 0.88 mg/dL 0.73 - 1.22 mg/dL [facility] Estimated Glomerular Filtration Rate 85 mL/min/1.73m >=60 mL/min/1.73m [facility] Glucose [Mass/Vol] 125 mg/dL High 74 - 99 mg/dL [facility] Potassium [Moles/Vol] 4.0 mmol/L 3.7 - 5.1 mmol/L [facility] Protein [Mass/Vol] 6.4 g/dL 6.3 - 8.0 g/dL [facility] Sodium [Moles/Vol] 138 mmol/L 136 - 144 mmol/L [facility] Urea nitrogen [Mass/Vol] 18 mg/dL 9 - 24 mg/dL [facility] Albumin [Mass/Vol] 4.1 g/dL Normal 3.9-4.9 [facility] Comment on above: Order Comment: Speci men Type: BLOOD SPECIMENOrdering Facility: [facility] Address: [address] [place] [address] Performed By: #### 2 4323-8 ####[facility] DAYSI MILLTOWNCLIA [id number] [place] [address] [place] ALP [Catalytic activity/Vol] 97 U/L Normal 38-113 [facility] Comment on above: Order Comment: Speci men Type: BLOOD SPECIMENOrdering Facility: [facility] Address: [address] [place] [address] Performed By: #### 2 4323-8 ####[facility] MILLTOWNCLIA [id number] [place] [address] [place] ALT [Catalytic activity/Vol] 14 U/L Normal 10-54 [facility] Comment on above: Order Comment: Speci men Type: BLOOD SPECIMENOrdering Facility: [facility] Address: [address] [place] [address] Performed By: #### 2 4323-8 ####[facility] MILLTOWNCLIA [id number] [place] [address] [place] Anion gap [Moles/Vol] 9 mmol/L Normal 9-18 [facility] Comment on above: Order Comment: Speci men Type: BLOOD SPECIMENOrdering Facility: [facility] Address: [address] [place] [address] Performed By: #### 2 4323-8 ####[facility] MILLTOWNCLIA [id number] [place] [address] [place] AST [Catalytic activity/Vol] 17 U/L Normal 14-40 [facility] Comment on above: Order Comment: Speci men Type: BLOOD SPECIMENOrdering Facility: [facility] Address: [address] [place] [address] Performed By: #### 2 4323-8 ####[facility] MILLTOWNCLIA [id number] [place] [address] [place] Bilirubin [Mass/Vol] 0.4 mg/dL Normal 0.2-1.3 [facility] Comment on above: Order Comment: Speci men Type: BLOOD SPECIMENOrdering Facility: [facility] Address: [address] [place] [address] Performed By: #### 2 4323-8 ####[facility] DAYSI ALISIANCLIA [id number] [place] [address] [place] Calcium [Mass/Vol] 9.1 mg/dL Normal 8.5-10.2 [facility] Comment on above: Order Comment: Speci men Type: BLOOD SPECIMENOrdering Facility: [facility] Address: [address] [place] [address] Performed By: #### 2 4323-8 ####[facility] HOSPITALWNCLIA [id number] [place] [address] [place] Chloride [Moles/Vol] 105 mmol/L Normal 97-105 [facility] Comment on above: Order Comment: Speci men Type: BLOOD SPECIMENOrdering Facility: [facility] Address: [address] [place] [address] Performed By: #### 2 4323-8 ####[facility] SAULOALVANCLIA [id number] [place] [address] [place] CO2 [Moles/Vol] 24 mmol/L Normal 22-30 [facility] Comment on above: Order Comment: Speci men Type: BLOOD SPECIMENOrdering Facility: [facility] Address: [address] [place] [address] Performed By: #### 2 4323-8 ####[facility] MILLWNCLIA [id number] [place] [address] [place] Creatinine [Mass/Vol] 0.88 mg/dL Normal 0.73-1.22 [facility] Comment on above: Order Comment: Speci men Type: BLOOD SPECIMENOrdering Facility: [facility] Address: [address] [place] [address] Performed By: #### 2 4323-8 ####[facility] [id number] [place] [address] [place] Creatinine and Glomerular filtration rate.predicted panel (S/P/Bld) 85 mL/min/1.73m??? Normal >=60 [facility] Comment on above: Order Comment: Aisha bates Type: BLOOD SPECIMENOrdering Facility: [facility] Address: [address] [place] [address] Result Comment: Lauren mated Glomerular Filtration Rate (eGFR) is calculated using the 2020 CKD-EPI creatinine equation. This equation utilizes serum creatinine, sex, and age as parameters. The creatinine assay has traceable calibration to isotope dilution-mass spectrometry. Refer to KDIGO guidelines for clinical interpretation. In patients with unstable renal function, e.g. those with acute kidney injury, the eGFR may not accurately reflect actual GFR. Performed By: #### 2 4323-8 ####[facility] [id number] [place] [address] [place] Glucose [Mass/Vol] 125 mg/dL High 74-99 [facility] Comment on above: Order Comment: Aisah bates Type: BLOOD SPECIMENOrdering Facility: [facility] Address: [address] [place] [address] Result Comment: The [place] [employer] (ADA) provides guidance for cutoff values for fasting glucose and random glucose. The ADA defines fasting as no caloric intake for at least 8 hours. Fasting plasma glucose results between 100 to 125 mg/dL indicate increased risk for diabetes (prediabetes).Fasting plasma glucose results greater than or equal to 126 mg/dL meet the criteria for diagnosis of diabetes. In the absence of unequivocal hyperglycemia, results should be confirmed by repeat testing. In a patient with classic symptoms of hyperglycemia or hyperglycemic crisis, random plasma glucose results greater than or equal to 200 mg/dL meet the criteria for diagnosis of diabetes.Reference: Standards of Medical Care in Diabetes 2016, [place] [employer]. Diabetes Care. 2016.39(Suppl 1). Performed By: #### 2 4323-8 ####[facility] [id number] [place] [address] [place] Potassium [Moles/Vol] 4.0 mmol/L Normal 3.7-5.1 [facility] Comment on above: Order Comment: Speci men Type: BLOOD SPECIMENOrdering Facility: [facility] Address: [address] [place] [address] Performed By: #### 2 4323-8 ####[facility] MILLWNICOLELIA [id number] [place] [address] [place] Protein [Mass/Vol] 6.4 g/dL Normal 6.3-8.0 [facility] Comment on above: Order Comment: Speci men Type: BLOOD SPECIMENOrdering Facility: [facility] Address: [address] [place] [address] Performed By: #### 2 4323-8 ####[facility] CENTERCLAUS [id number] [place] [address] [place] Sodium [Moles/Vol] 138 mmol/L Normal 136-144 [facility] Comment on above: Order Comment: Speci men Type: BLOOD SPECIMENOrdering Facility: [facility] Address: [address] [place] [address] Performed By: #### 2 4323-8 ####[facility] CENTERNICOLELIA [id number] [place] [address] [place] Urea nitrogen [Mass/Vol] 18 mg/dL Normal 9-24 [facility] Comment on above: Order Comment: Speci men Type: BLOOD SPECIMENOrdering Facility: [facility] Address: [address] [place] [address] Performed By: #### 2 4323-8 ####[facility] CENTERNCLIA [id number] [place] [address] [place] No Panel Informationon 07-09 [facility] CNPNon 07-07-2023 CNPN Normal [facility] CNPNon 06-30-2023 CNPN Normal [facility] CNPNon 06-26-2023 CNPN Normal [facility] CNPNon 06-06-2023 CNPN Normal [facility] CNOVon 05-29-2023 CNOV Normal [facility] ROUTINE FLU A/B + RSVon 05-16 FLUAV RNA RENETTA+probe Ql (Unsp spec) Not detected Normal Not Detected [facility] Comment on above: Order Comment: Speci men Type: SWAB OF INTERNAL NOSEOrdering Facility: [facility] Address: [address] [place] [address] Performed By: #### R TFRSV, 52770-6 ####[facility] [id number] [place] [address] [place] FLUBV RNA RENETTA+probe Ql (Unsp spec) Not detected Normal Not Detected [facility] Comment on above: Order Comment: Speci men Type: SWAB OF INTERNAL NOSEOrdering Facility: [facility] Address: [address] [place] [address] Performed By: #### R TFRSV, 97519-7 ####[facility] [id number] [place] [address] [place] RSV A RNA RENETTA+probe Ql (Unsp spec) Not detected Normal Not Detected [facility] Comment on above: Order Comment: Speci men Type: SWAB OF INTERNAL NOSEOrdering Facility: [facility] Address: [address] [place] [address] Performed By: #### R TFRSV, 00231-2 ####[facility] MIAMISBURGIA [id number] [place] [address] [place] SARS-CoV-2 RNA Resp Ql RENETTA+p robeon 05-29-2023 SARS-CoV-2 (COVID-19) RNA RENETTA+probe Ql (Resp) COVID 19 RESULT: Not detected The method used is RT-PCR or an equivalent NAAT method. Reference Range (the expected result in uninfected individuals): Not detected Normal [facility] Comment on above: Performed By: #### R TFRSV, 93234-8 ####[facility] LABCLIA [id number] [place] [id number] [place] CNPNon 05-23-2023 CNPN Normal [facility] CNPNon 05-20-2023 CNPN Normal [facility] HbA1c (Bld)on 03-28-2023 Average glucose Estimated from glycated hemoglobin (Bld) [Mass/Vol] 126 mg/dL [facility] HbA1c (Bld) [Mass fraction] 6.0 % High 4.3 - 5.6 % [facility] Urinalysis complete panel (U )on 03-28-2023 Bacteria LM.HPF (Urine sed) [#/Area] Few Abnormal None Seen /HPF [facility] Bilirubin Ql (U) Negative Negative [facility] Clarity (Unsp spec) Cloudy Abnormal Clear [facility] Color (U) Yellow Yellow [facility] [facility] Epithelial cells LM.HPF (Urine sed) [#/Area] Few [facility] Glucose Test strip (U) [Mass/Vol] 2+ Abnormal Trace, Negative [facility] Hemoglobin Ql (U) 3+ Abnormal Negative, Trace [facility] Ketones Ql (U) 1+ Abnormal Trace, Negative [facility] Leukocyte esterase Test strip Ql (U) 500 Dennise/uL Abnormal Negative, 25 Dennise/uL [facility] Nitrite Ql (U) 2+ Abnormal Negative [facility] pH (U) 6.0 [pH] 5.0 - 8.0 [facility] Protein (U) [Mass/Vol] 2+ Abnormal Trace , Negative [facility] RBC LM.HPF (Urine sed) [#/Area] /[HPF] Abnormal 0-3 /HPF [facility] Specific gravity (U) [Rel density] 1.029 1.005 - 1.030 [facility] Urobilinogen Ql (U) Negative Negative [facility] WBC LM.HPF (Urine sed) [#/Area] /[HPF] Abnormal 0-5 /HPF [facility] No Panel Informationon 03-10 [facility] NM PET/CT SKULL-THIGH INITIA Jeramy 12-03-2022 [facility] No Panel Informationon 11-27 [facility] Basic metabolic 2000 panelon 11-07-2022 Anion gap [Moles/Vol] 12 mmol/L 9 - 18 mmol/L [facility] Calcium [Mass/Vol] 9.0 mg/dL 8.5 - 10. 2 mg/dL [facility] Chloride [Moles/Vol] 105 mmol/L 97 - 10 5 mmol/L [facility] CO2 [Moles/Vol] 23 mmol/L 22 - 30 mmol/L [facility] Creatinine [Mass/Vol] 0.95 mg/dL 0.73 - 1.22 mg/dL [facility] Estimated Glomerular Filtration Rate 79 mL/min/1.73m >=60 mL/min/1.73m [facility] Glucose [Mass/Vol] 157 mg/dL High 74 - 99 mg/dL [facility] Potassium [Moles/Vol] 4.5 mmol/L 3.7 - 5.1 mmol/L [facility] Sodium [Moles/Vol] 140 mmol/L 136 - 144 mmol/L [facility] Urea nitrogen [Mass/Vol] 22 mg/dL 9 - 24 mg/dL [facility] CBC W Auto Differential pane l (Bld)on 11-07-2022 Basophils (Bld) [#/Vol] 0.03 10*3/uL <0.11 k/uL [facility] Basophils/100 WBC (Bld) 0.4 % [facility] Differential cell count method Nom (Bld) Auto [facility] Eosinophils (Bld) [#/Vol] 0.17 10*3/uL <0.46 k/uL [facility] Eosinophils/100 WBC (Bld) 2.2 % [facility] Erythrocyte distribution width (RBC) [Ratio] 13.8 % 11.5 - 15.0 % [facility] Hematocrit (Bld) [Volume fraction] 40.1 % 39.0 - 51.0 % [facility] Hemoglobin (Bld) [Mass/Vol] 13.2 g/dL 13.0 - 17.0 g/dL [facility] Immature granulocytes (Bld) [#/Vol] 0.03 10*3/uL <0.10 k/uL [facility] Immature granulocytes/100 WBC (Bld) 0.4 % [facility] Lymphocytes (Bld) [#/Vol] 1.13 10*3/uL 1.00 - 4.00 k/uL [facility] Lymphocytes/100 WBC (Bld) 14.8 % [facility] MCH (RBC) [Entitic mass] 30.7 pg 26.0 - 34.0 pg [facility] MCHC (RBC) [Mass/Vol] 32.9 g/dL 30.5 - 36.0 g/dL [facility] MCV (RBC) [Entitic vol] 93.3 fL 80.0 - 100.0 fL [facility] Monocytes (Bld) [#/Vol] 0.57 10*3/uL <0.87 k/uL [facility] Monocytes/100 WBC (Bld) 7.5 % [facility] Neutrophils (Bld) [#/Vol] 5.68 10*3/uL 1.45 - 7.50 k/uL [facility] Neutrophils/100 WBC (Bld) 74.7 % [facility] Nucleated RBC (Bld) [#/Vol] <0.01 k/uL [facility] Nucleated RBC/100 WBC (Bld) [Ratio] 0.0 /100 WBC [facility] Platelet mean volume (Bld) [Entitic vol] 8.6 fL Low 9.0 - 12.7 fL [facility] Platelets (Bld) [#/Vol] 199 10*3/uL 150 - 400 k/uL [facility] RBC (Bld) [#/Vol] 4.30 10*6/uL 4.20 - 6.0 0 m/uL [facility] WBC (Bld) [#/Vol] 7.61 10*3/uL 3.70 - 11. 00 k/uL [facility] CT ABD/PEL W IVCONon 023 [facility] Basic metabolic 2000 panelon 09-26-2022 Anion gap [Moles/Vol] 10 mmol/L 9 - 18 mmol/L [facility] Calcium [Mass/Vol] 10.1 mg/dL 8.5 - 10. 2 mg/dL [facility] Chloride [Moles/Vol] 100 mmol/L 97 - 10 5 mmol/L [facility] CO2 [Moles/Vol] 26 mmol/L 22 - 30 mmol/L [facility] Creatinine [Mass/Vol] 1.07 mg/dL 0.73 - 1.22 mg/dL [facility] Estimated Glomerular Filtration Rate 69 mL/min/1.73m >=60 mL/min/1.73m [facility] Glucose [Mass/Vol] 92 mg/dL 74 - 99 mg/dL [facility] Potassium [Moles/Vol] 5.3 mmol/L High 3.7 - 5.1 mmol/L [facility] Sodium [Moles/Vol] 136 mmol/L 136 - 144 mmol/L [facility] Urea nitrogen [Mass/Vol] 24 mg/dL 9 - 24 mg/dL [facility] HbA1c (Bld)on 09-26-2022 Average glucose Estimated from glycated hemoglobin (Bld) [Mass/Vol] 128 mg/dL [facility] HbA1c (Bld) [Mass fraction] 6.1 % High 4.3 - 5.6 % [facility] LIPID PANEL, NONFASTINGon Cholesterol [Mass/Vol] 215 mg/dL High <200 mg/dL [facility] HDL Cholesterol, Nonfasting 44 mg/dL >39 mg/dL [facility] LDL Cholesterol, Nonfasting 131 mg/dL High <100 mg/dL [facility] LDL/HDL Ratio, Nonfasting 2.98 mg/dL High <2.54 mg/dL [facility] Non HDL Cholesterol, Nonfasting 171 mg/dL High <130 mg/dL [facility] Total Chol/HDL Ratio, Nonfasting 4.89 mg/dL <5.10 mg/dL [facility] Triglycerides, Nonfasting 198 mg/dL High <150 mg/dL [facility] VLDL Cholesterol, Nonfasting 40 mg/dL High <30 mg/dL [facility] Basic metabolic 2000 panelon 08-21-2022 Anion gap [Moles/Vol] 10 mmol/L 9 - 18 mmol/L [facility] Calcium [Mass/Vol] 9.3 mg/dL 8.5 - 10. 2 mg/dL [facility] Chloride [Moles/Vol] 99 mmol/L 97 - 10 5 mmol/L [facility] CO2 [Moles/Vol] 27 mmol/L 22 - 30 mmol/L [facility] Creatinine [Mass/Vol] 0.91 mg/dL 0.73 - 1.22 mg/dL [facility] Estimated Glomerular Filtration Rate 84 mL/min/1.73m >=60 mL/min/1.73m [facility] Glucose [Mass/Vol] 165 mg/dL High 74 - 99 mg/dL [facility] Potassium [Moles/Vol] 4.5 mmol/L 3.7 - 5.1 mmol/L [facility] Sodium [Moles/Vol] 136 mmol/L 136 - 144 mmol/L [facility] Urea nitrogen [Mass/Vol] 22 mg/dL 9 - 24 mg/dL [facility] CBC W Auto Differential pane l (Bld)on 08-21-2022 Basophils (Bld) [#/Vol] 0.03 10*3/uL <0.11 k/uL [facility] Basophils/100 WBC (Bld) 0.4 % [facility] Differential cell count method Nom (Bld) Auto [facility] Eosinophils (Bld) [#/Vol] 0.11 10*3/uL <0.46 k/uL [facility] Eosinophils/100 WBC (Bld) 1.4 % [facility] Erythrocyte distribution width (RBC) [Ratio] 14.0 % 11.5 - 15.0 % [facility] Hematocrit (Bld) [Volume fraction] 38.3 % Low 39.0 - 51.0 % [facility] Hemoglobin (Bld) [Mass/Vol] 12.3 g/dL Low 13.0 - 17.0 g/dL [facility] Immature granulocytes (Bld) [#/Vol] 0.05 10*3/uL <0.10 k/uL [facility] Immature granulocytes/100 WBC (Bld) 0.6 % [facility] Lymphocytes (Bld) [#/Vol] 1.00 10*3/uL 1.00 - 4.00 k/uL [facility] Lymphocytes/100 WBC (Bld) 12.7 % [facility] MCH (RBC) [Entitic mass] 30.6 pg 26.0 - 34.0 pg [facility] MCHC (RBC) [Mass/Vol] 32.1 g/dL 30.5 - 36.0 g/dL [facility] MCV (RBC) [Entitic vol] 95.3 fL 80.0 - 100.0 fL [facility] Monocytes (Bld) [#/Vol] 0.68 10*3/uL <0.87 k/uL [facility] Monocytes/100 WBC (Bld) 8.6 % [facility] Neutrophils (Bld) [#/Vol] 6.02 10*3/uL 1.45 - 7.50 k/uL [facility] Neutrophils/100 WBC (Bld) 76.3 % [facility] Nucleated RBC (Bld) [#/Vol] <0.01 k/uL [facility] Nucleated RBC/100 WBC (Bld) [Ratio] 0.0 /100 WBC [facility] Platelet mean volume (Bld) [Entitic vol] 8.7 fL Low 9.0 - 12.7 fL [facility] Platelets (Bld) [#/Vol] 230 10*3/uL 150 - 400 k/uL [facility] RBC (Bld) [#/Vol] 4.02 10*6/uL Low 4.20 - 6.0 0 m/uL [facility] WBC (Bld) [#/Vol] 7.89 10*3/uL 3.70 - 11. 00 k/uL [facility] No Panel Informationon 08-21 [facility] 36on 08-06-2022 36 Spoke with Howie for 16 year follow up for clinical trial RTOG [id number]. AE's assessed. He says he takes daily walks with his girlfriend and uses a cane when needed for back and hip pain. No other complaints, no urinary or GI issues. He is okay with us continuing to contact him yearly for updates regarding the trial. He has no questions for me at this time. Normal [facility] UA DIP, URINE (POC)on 2021 BILIRUBIN UA (POCT) Negative Negative [facility] CLARITY UA (POCT) Clear [facility] COLOR UA (POCT) Yellow [facility] GLUCOSE UA (POCT) Negative Negative mg/dL [facility] HEMOGLOBIN/BLOOD UA (POCT) Large Abnormal Negative [facility] KETONE UA (POCT) Negative Negative mg/dL [facility] LEUKOCYTES UA (POCT) Small Abnormal Negative [facility] NITRITE UA (POCT) Negative Negative [facility] PH UA (POCT) 5.5 4.5 - 8.0 [facility] Protein Ql (U) Negative Negative mg/dL [facility] SPECIFIC GRAVITY UA (POCT) 1.025 1.005 - 1.030 [facility] UROBILINOGEN UA (POCT) 0.2 E.U./dL Lisbeth l E.U./dL [facility] UA DIP, URINE (POC)on 2021 BILIRUBIN UA (POCT) Negative Negative [facility] CLARITY UA (POCT) Cloudy [facility] COLOR UA (POCT) Dark yellow [facility] GLUCOSE UA (POCT) Negative Negative mg/dL [facility] HEMOGLOBIN/BLOOD UA (POCT) Small Abnormal Negative [facility] KETONE UA (POCT) Negative Negative mg/dL [facility] LEUKOCYTES UA (POCT) Negative Negative [facility] NITRITE UA (POCT) Negative Negative [facility] PH UA (POCT) 5.0 4.5 - 8.0 [facility] Protein Ql (U) 30 mg/dL Abnormal Negative mg/dL [facility] SPECIFIC GRAVITY UA (POCT) >=1.030 1.005 - 1.030 [facility] UROBILINOGEN UA (POCT) 0.2 E.U./dL Lisbeth l E.U./dL [facility] Basic metabolic 2000 panelon 02-26-2022 Anion gap [Moles/Vol] 11 mmol/L 9 - 18 mmol/L [facility] Calcium [Mass/Vol] 9.3 mg/dL 8.5 - 10. 2 mg/dL [facility] Chloride [Moles/Vol] 103 mmol/L 97 - 10 5 mmol/L [facility] CO2 [Moles/Vol] 24 mmol/L 22 - 30 mmol/L [facility] Creatinine [Mass/Vol] 0.85 mg/dL 0.73 - 1.22 mg/dL [facility] Estimated Glomerular Filtration Rate 86 mL/min/1.73m >=60 mL/min/1.73m [facility] Glucose [Mass/Vol] 108 mg/dL High 74 - 99 mg/dL [facility] Potassium [Moles/Vol] 4.7 mmol/L 3.7 - 5.1 mmol/L [facility] Sodium [Moles/Vol] 138 mmol/L 136 - 144 mmol/L [facility] Urea nitrogen [Mass/Vol] 20 mg/dL 9 - 24 mg/dL [facility] CBC W Auto Differential pane l (Bld)on 02-26-2022 Abs Immature Gran 0.03 k/uL <0.10 k/uL [facility] Basophils (Bld) [#/Vol] 0.03 10*3/uL <0.11 k/uL [facility] Basophils/100 WBC (Bld) 0.4 % [facility] Differential cell count method Nom (Bld) Auto [facility] Eosinophils (Bld) [#/Vol] 0.15 10*3/uL <0.46 k/uL [facility] Eosinophils/100 WBC (Bld) 2.0 % [facility] Erythrocyte distribution width (RBC) [Ratio] 13.9 % 11.5 - 15.0 % [facility] Hematocrit (Bld) [Volume fraction] 38.4 % Low 39.0 - 51.0 % [facility] Hemoglobin (Bld) [Mass/Vol] 12.9 g/dL Low 13.0 - 17.0 g/dL [facility] Immature Gran % 0.4 % [facility] Lymphocytes (Bld) [#/Vol] 1.03 10*3/uL 1.00 - 4.00 k/uL [facility] Lymphocytes/100 WBC (Bld) 13.6 % [facility] MCH (RBC) [Entitic mass] 30.9 pg 26.0 - 34.0 pg [facility] MCHC (RBC) [Mass/Vol] 33.6 g/dL 30.5 - 36.0 g/dL [facility] MCV (RBC) [Entitic vol] 91.9 fL 80.0 - 100.0 fL [facility] Monocytes (Bld) [#/Vol] 0.61 10*3/uL <0.87 k/uL [facility] Monocytes/100 WBC (Bld) 8.1 % [facility] Neutrophils (Bld) [#/Vol] 5.71 10*3/uL 1.45 - 7.50 k/uL [facility] Neutrophils/100 WBC (Bld) 75.5 % [facility] Nucleated RBC (Bld) [#/Vol] 10*3/uL <0.01 k/uL [facility] Nucleated RBC/100 WBC (Bld) [Ratio] 0.0 /100 WBC [facility] Platelet mean volume (Bld) [Entitic vol] 9.0 fL 9.0 - 12.7 fL [facility] Platelets (Bld) [#/Vol] 189 10*3/uL 150 - 400 k/uL [facility] RBC (Bld) [#/Vol] 4.18 10*6/uL Low 4.20 - 6.0 0 m/uL [facility] WBC (Bld) [#/Vol] 7.56 10*3/uL 3.70 - 11. 00 k/uL [facility] No Panel Informationon 02-[address] [facility] [address] ASPIRATION SUBCUT ABSCESS on 08-20-2020 CT ASPIRATION SUBCUT ABSCESS Final Report DATE OF EXAM: Aug 20 2020 12:45PM [facility] 2049 - CT ASPIRATION SUBCUT ABSCESS / PROCEDURE REASON: Intra-abdominal abscess (HCC) Physician Interpretation EXAM: CT GUIDED DRAINAGE OF ABDOMINAL FLUID COLLECTION X 2 CT/ULTRASOUND-GUIDED ASPIRATION OF SUBCUTANEOUS ANTERIOR ABDOMINAL FLUID COLLECTION DATE: 08/20/2020 12:45 PM CLINICAL INDICATION/HISTORY: Multiple fluid collections within the abdomen, status post surgery, concerning for abscess. COMPARISON: CT examination of the abdomen and pelvis with contrast dated 08/18/2020. ENCOUNTER: Initial CONSENT: Risks, benefits, treatment options, potential complications and personnel to be involved were discussed (including the risks of radiation exposure, contrast and anesthesia administration) with the patient and all questions were answered and consent was obtained prior to procedure. LUKAS-PROCEDURE DISCUSSION: The appropriate elements of the pre-procedure discussion, safety check list and sign-out were performed. TIME OUT: A time out was performed immediately prior to procedure start with the nursing, and interventional team, correctly identifying the name, date of , procedure, anatomy (including marking of site and side), patient position, procedure consent form, relevant diagnostic and radiology test results, antibiotic administration, safety precautions, and procedure-specific equipment needs. Patient position: Supine Anesthesia: Moderate conscious sedation. Continuous cardiopulmonary monitoring was performed throughout the procedure during which the patient received IV Versed and IV Fentanyl for conscious sedation. Sedation time: 60 Minutes Local anesthesia: 1 % lidocaine Image guidance: CT guidance Effective Radiation dose: 365.[address] Dose Reduction Employed: 3. mAs or kVp was manually adjusted based on either the patient size or age. TECHNIQUE: The patient was placed in the supine position on the CT table. Skin site of the peristomal fluid collection was identified and marked. Skin site was prepped and draped in usual sterile fashion. Access was obtained into the target collection with a Yueh sheathed needle. A guide wire was then advanced into the fluid collection. Serial dilation was performed and a 10 Armenian percutaneous drainage catheter was placed. 6 cc of serosanguineous fluid was aspirated and sample was sent for culture and analysis. Drainage catheter was placed to bulb suction and secured the skin with 2-0 suture. Skin site of the left abdominal collection was identified and marked. Skin site was prepped and draped in usual sterile fashion. Access was obtained into the target collection with a Yueh sheathed needle, using ultrasound guidance. A guide wire was then advanced into the fluid collection. CT examination was then performed to ensure appropriate wire location. Following this, serial dilation was performed and a 12 Armenian percutaneous drainage catheter was placed. 4 cc of purulent fluid was aspirated and sample was sent for culture and analysis. Drainage catheter was placed to bulb suction and secured the skin with 2-0 suture. Skin site of the midline anterior abdominal subcutaneous fluid collection was identified. Skin site was prepped and draped in usual sterile fashion. Yueh sheath needle was advanced into the fluid collection. The fluid was aspirated with complete collapse of the fluid cavity. Approximately 30 cc dark brown/red serous fluid was aspirated and fluid specimen sent for culture. The patient tolerated the procedure well without immediate complication. Estimated Blood Loss: Minimal FINDINGS: Successful placement of 10 Armenian percutaneous drainage catheter into left lower quadrant parastomal fluid collection. 6 cc serosanguineous fluid was aspirated and fluid specimen sent for culture. Successful placement of 12 Armenian percutaneous drainage catheter into left abdominal abscess. Purulent fluid aspirated and fluid specimen sent for culture. Successful aspiration of midline anterior abdominal subcutaneous fluid collection. Dark brown/red serous fluid aspirated and fluid cavity was collapsed. Specimen sent for culture. IMPRESSION: Successful placement of 10 Armenian percutaneous drainage catheter into the peristomal fluid collection. Successful placement of 12 Armenian percutaneous drainage catheter into left abdominal abscess. Successful aspiration of midline anterior abdominal subcutaneous fluid collection with collapse of the fluid cavity. Fluid specimens were sent for culture. No immediate complications. Metal Treater: PSCB Transcribe Date/Time: Aug 20 2020 7:14P Dictated by : ELLI HAND MD This examination was interpreted and the report reviewed and electronically signed by: ELLI HAND MD on Aug 20 2020 7:26PM EST Normal [facility] CT DRAIN PLACE SFT TISS FLUI D BIon 08-20-[address] SFT TISS FLUID BI Final Report DATE OF EXAM: Aug 20 2020 12:45PM [facility] 2020 - CT DRAIN PLACE SFT TISS FLUID BI / PROCEDURE REASON: Intra-abdominal abscess (HCC) Physician Interpretation EXAM: CT GUIDED DRAINAGE OF ABDOMINAL FLUID COLLECTION X 2 CT/ULTRASOUND-GUIDED ASPIRATION OF SUBCUTANEOUS ANTERIOR ABDOMINAL FLUID COLLECTION DATE: 08/20/2020 12:45 PM CLINICAL INDICATION/HISTORY: Multiple fluid collections within the abdomen, status post surgery, concerning for abscess. COMPARISON: CT examination of the abdomen and pelvis with contrast dated 08/18/2020. ENCOUNTER: Initial CONSENT: Risks, benefits, treatment options, potential complications and personnel to be involved were discussed (including the risks of radiation exposure, contrast and anesthesia administration) with the patient and all questions were answered and consent was obtained prior to procedure. LUKAS-PROCEDURE DISCUSSION: The appropriate elements of the pre-procedure discussion, safety check list and sign-out were performed. TIME OUT: A time out was performed immediately prior to procedure start with the nursing, and interventional team, correctly identifying the name, date of , procedure, anatomy (including marking of site and side), patient position, procedure consent form, relevant diagnostic and radiology test results, antibiotic administration, safety precautions, and procedure-specific equipment needs. Patient position: Supine Anesthesia: Moderate conscious sedation. Continuous cardiopulmonary monitoring was performed throughout the procedure during which the patient received IV Versed and IV Fentanyl for conscious sedation. Sedation time: 60 Minutes Local anesthesia: 1 % lidocaine Image guidance: CT guidance Effective Radiation dose: 365.[address] Dose Reduction Employed: 3. mAs or kVp was manually adjusted based on either the patient size or age. TECHNIQUE: The patient was placed in the supine position on the CT table. Skin site of the peristomal fluid collection was identified and marked. Skin site was prepped and draped in usual sterile fashion. Access was obtained into the target collection with a Yueh sheathed needle. A guide wire was then advanced into the fluid collection. Serial dilation was performed and a 10 Armenian percutaneous drainage catheter was placed. 6 cc of serosanguineous fluid was aspirated and sample was sent for culture and analysis. Drainage catheter was placed to bulb suction and secured the skin with 2-0 suture. Skin site of the left abdominal collection was identified and marked. Skin site was prepped and draped in usual sterile fashion. Access was obtained into the target collection with a Yueh sheathed needle, using ultrasound guidance. A guide wire was then advanced into the fluid collection. CT examination was then performed to ensure appropriate wire location. Following this, serial dilation was performed and a 12 Armenian percutaneous drainage catheter was placed. 4 cc of purulent fluid was aspirated and sample was sent for culture and analysis. Drainage catheter was placed to bulb suction and secured the skin with 2-0 suture. Skin site of the midline anterior abdominal subcutaneous fluid collection was identified. Skin site was prepped and draped in usual sterile fashion. Yueh sheath needle was advanced into the fluid collection. The fluid was aspirated with complete collapse of the fluid cavity. Approximately 30 cc dark brown/red serous fluid was aspirated and fluid specimen sent for culture. The patient tolerated the procedure well without immediate complication. Estimated Blood Loss: Minimal FINDINGS: Successful placement of 10 Armenian percutaneous drainage catheter into left lower quadrant parastomal fluid collection. 6 cc serosanguineous fluid was aspirated and fluid specimen sent for culture. Successful placement of 12 Armenian percutaneous drainage catheter into left abdominal abscess. Purulent fluid aspirated and fluid specimen sent for culture. Successful aspiration of midline anterior abdominal subcutaneous fluid collection. Dark brown/red serous fluid aspirated and fluid cavity was collapsed. Specimen sent for culture. IMPRESSION: Successful placement of 10 Armenian percutaneous drainage catheter into the peristomal fluid collection. Successful placement of 12 Armenian percutaneous drainage catheter into left abdominal abscess. Successful aspiration of midline anterior abdominal subcutaneous fluid collection with collapse of the fluid cavity. Fluid specimens were sent for culture. No immediate complications. Metal Treater: PSCB Transcribe Date/Time: Aug 20 2020 7:14P Dictated by : ELLI HAND MD This examination was interpreted and the report reviewed and electronically signed by: ELLI HAND MD on Aug 20 2020 7:26PM EST Normal [facility] CT DRAIN PLACE SFT TISS FLUID BI Final Report DATE OF EXAM: Aug 20 2020 12:42PM [facility] 2020 - CT DRAIN PLACE SFT TISS FLUID BI / PROCEDURE REASON: Intra-abdominal abscess (HCC) Physician Interpretation EXAM: CT GUIDED DRAINAGE OF ABDOMINAL FLUID COLLECTION X 2 CT/ULTRASOUND-GUIDED ASPIRATION OF SUBCUTANEOUS ANTERIOR ABDOMINAL FLUID COLLECTION DATE: 08/20/2020 12:45 PM CLINICAL INDICATION/HISTORY: Multiple fluid collections within the abdomen, status post surgery, concerning for abscess. COMPARISON: CT examination of the abdomen and pelvis with contrast dated 08/18/2020. ENCOUNTER: Initial CONSENT: Risks, benefits, treatment options, potential complications and personnel to be involved were discussed (including the risks of radiation exposure, contrast and anesthesia administration) with the patient and all questions were answered and consent was obtained prior to procedure. LUKAS-PROCEDURE DISCUSSION: The appropriate elements of the pre-procedure discussion, safety check list and sign-out were performed. TIME OUT: A time out was performed immediately prior to procedure start with the nursing, and interventional team, correctly identifying the name, date of , procedure, anatomy (including marking of site and side), patient position, procedure consent form, relevant diagnostic and radiology test results, antibiotic administration, safety precautions, and procedure-specific equipment needs. Patient position: Supine Anesthesia: Moderate conscious sedation. Continuous cardiopulmonary monitoring was performed throughout the procedure during which the patient received IV Versed and IV Fentanyl for conscious sedation. Sedation time: 60 Minutes Local anesthesia: 1 % lidocaine Image guidance: CT guidance Effective Radiation dose: 365.[address] Dose Reduction Employed: 3. mAs or kVp was manually adjusted based on either the patient size or age. TECHNIQUE: The patient was placed in the supine position on the CT table. Skin site of the peristomal fluid collection was identified and marked. Skin site was prepped and draped in usual sterile fashion. Access was obtained into the target collection with a Yueh sheathed needle. A guide wire was then advanced into the fluid collection. Serial dilation was performed and a 10 Armenian percutaneous drainage catheter was placed. 6 cc of serosanguineous fluid was aspirated and sample was sent for culture and analysis. Drainage catheter was placed to bulb suction and secured the skin with 2-0 suture. Skin site of the left abdominal collection was identified and marked. Skin site was prepped and draped in usual sterile fashion. Access was obtained into the target collection with a Yueh sheathed needle, using ultrasound guidance. A guide wire was then advanced into the fluid collection. CT examination was then performed to ensure appropriate wire location. Following this, serial dilation was performed and a 12 Armenian percutaneous drainage catheter was placed. 4 cc of purulent fluid was aspirated and sample was sent for culture and analysis. Drainage catheter was placed to bulb suction and secured the skin with 2-0 suture. Skin site of the midline anterior abdominal subcutaneous fluid collection was identified. Skin site was prepped and draped in usual sterile fashion. Yueh sheath needle was advanced into the fluid collection. The fluid was aspirated with complete collapse of the fluid cavity. Approximately 30 cc dark brown/red serous fluid was aspirated and fluid specimen sent for culture. The patient tolerated the procedure well without immediate complication. Estimated Blood Loss: Minimal FINDINGS: Successful placement of 10 Armenian percutaneous drainage catheter into left lower quadrant parastomal fluid collection. 6 cc serosanguineous fluid was aspirated and fluid specimen sent for culture. Successful placement of 12 Armenian percutaneous drainage catheter into left abdominal abscess. Purulent fluid aspirated and fluid specimen sent for culture. Successful aspiration of midline anterior abdominal subcutaneous fluid collection. Dark brown/red serous fluid aspirated and fluid cavity was collapsed. Specimen sent for culture. IMPRESSION: Successful placement of 10 Armenian percutaneous drainage catheter into the peristomal fluid collection. Successful placement of 12 Armenian percutaneous drainage catheter into left abdominal abscess. Successful aspiration of midline anterior abdominal subcutaneous fluid collection with collapse of the fluid cavity. Fluid specimens were sent for culture. No immediate complications. Metal Treater: [facility] Transcribe Date/Time: Aug 20 2020 7:14P Dictated by : ELLI HAND MD This examination was interpreted and the report reviewed and electronically signed by: ELLI HAND MD on Aug 20 2020 7:26PM EST Normal [facility] XR ABDOMEN 1V SUPINEon 08-07 XR ABDOMEN 1V SUPINE Final Report DATE OF EXAM: Aug 07 2020 7:26AM [id number] [id number] - XR ABDOMEN 1V SUPINE / PROCEDURE REASON: Evaluate tube, line or lead position Physician Interpretation EXAMINATION: XR ABDOMEN 1V SUPINE PATIENT/TECHNOLOGIST PROVIDED HISTORY: NG PLACEMENT CLINICAL INFORMATION: Evaluate tube, line or lead position TECHNIQUE: Supine abdomen, 1 image(s) COMPARISON: 08/06/2020 RESULT: NG/OG with the tip and sidehole within the stomach. There are dilated loops of small bowel measuring up to 5 cm, unchanged from prior exam. There are degenerative changes in the spine. Lung bases are unremarkable. Partially visualized is a central venous catheter in the right atrium. IMPRESSION: DILATED SMALL BOWEL MEASURING UP TO 5 CM, UNCHANGED FROM PRIOR EXAM. CONSIDER ILEUS VERSUS BOWEL OBSTRUCTION. Metal [facility] Transcribe Date/Time: Aug 07 2020 8:39A Dictated by : IGNACIA CASTILLO MD This examination was interpreted and the report reviewed and electronically signed by: IGNACIA CASTILLO MD on Aug 07 2020 8:41AM EST Normal [facility] XR ABDOMEN 1V SUPINEon 08-06 XR ABDOMEN 1V SUPINE Final Report DATE OF EXAM: Aug 06 2020 7:29AM [id number] - XR ABDOMEN 1V SUPINE / PROCEDURE REASON: Evaluate tube, line or lead position Physician Interpretation EXAMINATION: XR ABDOMEN 1V SUPINE PATIENT/TECHNOLOGIST PROVIDED HISTORY: check existing NG tube per pt nurse CLINICAL INFORMATION: Evaluate tube, line or lead position TECHNIQUE: Supine abdomen, 1 image(s) COMPARISON: 08/05/2020 RESULT: NG/OG with the tip and sidehole within the stomach. There are dilated loops of small bowel measuring up to 5 cm, slightly increased from prior exam. There are degenerative changes in the spine. Lung bases are unremarkable. Partially visualized is a central venous catheter.. IMPRESSION: DILATED SMALL BOWEL MEASURING UP TO 5 CM, SLIGHTLY INCREASED FROM PRIOR EXAM. CONSIDER ILEUS VERSUS BOWEL OBSTRUCTION. Metal Treater: [facility] Transcribe Date/Time: Aug 06 2020 7:31A Dictated by : IGNACIA CASTILLO MD This examination was interpreted and the report reviewed and electronically signed by: IGNACIA CASTILLO MD on Aug 06 2020 7:33AM EST Normal [facility] US DRAIN PLACE SFT TISS FLUI D BIon 08-05-[address] SFT TISS FLUID BI Final Report DATE OF EXAM: Aug 05 2020 10:37AM SDU [id number] - US DRAIN PLACE SFT TISS FLUID BI / PROCEDURE REASON: Abscess, abdomen, soft tissue Physician Interpretation PROCEDURE PERFORMED: ULTRASOUND GUIDED DRAIN PLACEMENT PRE-PROCEDURE DIAGNOSIS: Left parastomal hernia fluid collection POST-PROCEDURE DIAGNOSIS: Same INDICATION FOR PROCEDURE: The patient is a 80 years old Male who presents with fluid collection around a left parastomal hernia. There is concern for underlying infection. STAFF RADIOLOGIST: Ignacia Castillo MD CARD STRIPPER(S): None CONSENT: The risks, benefits, treatment options, potential complications and personnel involved were discussed with the patient. All questions were answered and consent was obtained. The patient indicated he was willing to proceed. The staff physician personally verified consent. TIME OUT: A time out was performed immediately prior to procedure start with the nursing, anesthesia and interventional team, correctly identifying the patient name, date of , procedure, anatomy (including marking of site and side), patient position, procedure consent form, relevant diagnostic and radiology test results, antibiotic administration, safety precautions, and procedure-specific equipment needs. RESULT: PROCEDURE: After performing the time out, the left anterior abdominal wall around the stoma was prepped and draped in the usual sterile fashion. Under ultrasound guidance, an 18 gauge trochar needle was advanced into the collection. A sample was aspirated. The procedure was performed by the: attending radiologist, without an assistant director of security. The attending radiologist performed the following procedural activities: Entire procedure ANESTHESIA/SEDATION: No sedation was given. Local anesthesia was achieved utilizing 2% percent lidocaine. START TIME/TIMEOUT TIME: 9:50 AM END TIME: 9:55 AM INTRA-SERVICE (SEDATION) TIME: NA PATIENT MONITORING: The staff physician personally supervised and directed an independent trained observer who assisted in monitoring the patient?s level of consciousness and physiological status throughout the procedure. COMPLICATIONS: None SIGN-OUT DISCUSSION: Completed ESTIMATED BLOOD LOSS: Minimal SPECIMENS: 10 cc of straw-colored thin/noncomplex fluid aspirated and sent for microbiology IMPRESSION: ULTRASOUND GUIDED ASPIRATION OF FLUID AROUND A LEFT PARASTOMAL HERNIA. Metal Treater: [facility] Transcribe Date/Time: Aug 05 2020 10:40A Dictated by : IGNACIA CASTILLO MD This examination was interpreted and the report reviewed and electronically signed by: IGNACIA CASTILLO MD on Aug 05 2020 10:45AM EST Normal [facility] XR ABDOMEN 1V SUPINEon 08-05 XR ABDOMEN 1V SUPINE Final Report DATE OF EXAM: Aug 05 2020 4:38AM [id number] [id number] - XR ABDOMEN 1V SUPINE / PROCEDURE REASON: Evaluate tube, line or lead position Physician Interpretation EXAM: XR ABDOMEN 1V SUPINE HISTORY: Evaluate tube, line or lead position COMPARISON: 08/04/2020 FINDINGS: See impression IMPRESSION: Enteric tube sidehole and tip projecting over the left hemiabdomen. Persistent dilatation of the stomach and small bowel loops. Right sided central venous catheter tip projects over the right atrium. Degenerative changes are noted within the spine. Metal Treater: [facility] Transcribe Date/Time: Aug 05 2020 4:40A Dictated by : ANYA WU MD This examination was interpreted and the report reviewed and electronically signed by: ANYA WU MD on Aug 05 2020 4:45AM EST Normal [facility] Office Visit: [facility] 08-05-20 Dietary management education, guidance, and counseling (procedure) yes Invalid Interpretation Code [employer] Work Phone: [phone] Documentation of current medications (procedure) Done Invalid Interpretation Code [employer] Work Phone: [phone] Fall risk assessment No Invalid Interpretation Code [facility] Work Phone: [phone] Lab Report: Lipid Profileon 01-30-2017 Cholesterol [Mass/Vol] 139 mg/dL Invalid Interpretation Code 200 [employer] Work Phone: [phone] Cholesterol in HDL [Mass/Vol] 46 mg/dL Invalid Interpretation Code [employer] Work Phone: [phone] Cholesterol in LDL [Mass/Vol] 81 mg/dL Invalid Interpretation Code 0-130 [employer] Work Phone: [phone] Lipoprotein.pre-beta [Mass/Vol] 12 mg/dL Invalid Interpretation Code 5-40 [employer] Work Phone: [phone] Triglyceride [Mass/Vol] 59 mg/dL Invalid Interpretation Code [employer] Work Phone: [phone] Lab Report: Liver Profileon 01-30-2017 Albumin [Mass/Vol] 3.7 g/dL Invalid Interpretation Code 3.4-5.0 [email or web address] Phone: [phone] Alkaline phosphatase (ALP) 94 U/L Invalid Interpretation Code 45-117 [employer] Work Phone: [phone] ALP (Bld) [Catalytic activity/Vol] 94 U/L Invalid Interpretation Code 45-117 [employer] Work Phone: [phone] ALT [Catalytic activity/Vol] 26 U/L Invalid Interpretation Code 12-78 [employer] Work Phone: [phone] AST [Catalytic activity/Vol] 16 U/L Invalid Interpretation Code 15-37 [employer] Work Phone: [phone] Bilirubin [Mass/Vol] 0.30 mg/dL Invalid Interpretation Code 0.20-1.00 [employer] Work Phone: [phone] Bilirubin.direct [Mass/Vol] 0.12 mg/dL Invalid Interpretation Code 0.00-0.30 [employer] Work Phone: [phone] Globulin 3.5 g/dL Invalid Interpretation Code 2.3-3.5 [email or web address] Phone: [phone] Globulin (S) [Mass/Vol] 3.5 g/dL Invalid Interpretation Code 2.3-3.5 [employer] Work Phone: [phone] Protein [Mass/Vol] 7.2 g/dL Invalid Interpretation Code 6.4-8.2 [email or web address] Phone: [phone] Office Visiton 01-28-2017 Documentation of current medications (procedure) Done Invalid Interpretation Code [email or web address] Phone: [phone] Fall risk assessment No Invalid Interpretation Code [email or web address] [phone] Chart Maintenanceon 01-28-20 17 Left ventricular Ejection fraction 66 % Invalid Interpretation Code [employer] Work Phone: [phone] [facility] Tobacco smoking status Tobacco smoking status NHIS Invalid Interpretation Code [employer] Work Phone: [phone] Tobacco use status [facility] Never smoker Invalid Interpretation Code [email or web address] Phone: [phone] Lab Report: BUNon 08-21-2015 Urea nitrogen [Mass/Vol] 16 mg/dL Invalid Interpretation Code 7-18 [email or web address] Phone: [phone] Lab Report: CBC W/Diff, Auto matedon 08-21-2015 Absolute Neut 3.5 X10 3/UL Invalid Interpretation Code 2.0-7.7 [email or web address] Phone: [phone] Basophils/100 WBC (Bld) 0.2 % Invalid Interpretation Code 0-1 [email or web address] Phone: [phone] Basophils/100 WBC Auto (Bld) 0.2 % Invalid Interpretation Code 0-1 [email or web address] Phone: [phone] Eosinophils/100 leukocytes 1.7 % Invalid Interpretation Code 0-5 [email or web address] Phone: [phone] Eosinophils/100 WBC (Bld) 1.7 % Invalid Interpretation Code 0-5 [email or web address] Phone: [phone] Erythrocyte distribution width (RBC) [Ratio] 13.3 % Invalid Interpretation Code 11.6-14.6 [email or web address] Phone: [phone] Erythrocyte distribution width Auto Ratio (RBC) 13.3 % Invalid Interpretation Code 11.6-14.6 [email or web address] Phone: [phone] Erythrocytes (RBC) 4.49 10*6/uL Low 4.6-6.2 [facility] [employer] Work [phone] Hematocrit (Bld) [Volume fraction] 42.4 % Invalid Interpretation Code 40-54 [employer] Work [phone] Hematocrit (HCT) 42.4 % Invalid Interpretation Code 40-54 [employer] Work [phone] Hemoglobin (Bld) [Mass/Vol] 13.5 g/dL Invalid Interpretation Code 13.0-16.5 [employer] Work [phone] Immature granulocytes/100 WBC (Bld) 0.000 % Invalid Interpretation Code 0.0-0.9 [employer] Work Phone: [phone] Lymphocytes 1.68 X10 3/UL Invalid Interpretation Code 0.83-4.51 [employer] Work Phone: [phone] Lymphocytes (Bld) [#/Vol] 1.68 X10 3/UL Invalid Interpretation Code 0.83-4.51 [employer] Work Phone: [phone] Lymphocytes/100 leukocytes 28.9 % Invalid Interpretation Code 19-41 [employer] Work Phone: [phone] Lymphocytes/100 WBC (Bld) 28.9 % Invalid Interpretation Code 19-41 [employer] Work Phone: [phone] MCH 30.1 pg Invalid Interpretation Code 27.0-32.0 [employer] Work Phone: [phone] MCH (RBC) [Entitic mass] 30.1 pg Invalid Interpretation Code 27.0-32.0 [employer] Work Phone: [phone] MCHC mass conc (RBC) 31.8 G/GL Low 32-36 [employer] [facility] [employer] Work Phone: [phone] MCV 94.4 fL High 80-94 [employer] Work Phone: [phone] MCV (RBC) [Entitic vol] 94.4 fL High 80-94 [employer] Work Phone: [phone] mean corpuscular hemoglobin concentration, RBC 31.8 G/GL Low 32-36 [employer] Work Phone: [phone] Monocytes/100 leukocytes 8.6 % Invalid Interpretation Code 0-10 [facility] Work Phone: [phone] Monocytes/100 WBC (Bld) 8.6 % Invalid Interpretation Code 0-10 [facility] Work Phone: [phone] neutrophil count, blood 3.5 X10 3/UL Invalid Interpretation Code 2.0-7.7 [facility] Work Phone: [phone] Neutrophils/100 WBC (Bld) 60.6 % Invalid Interpretation Code 47-70 [facility] Work Phone: [phone] Neutrophils/100 WBC Auto (Bld) 60.6 % Invalid Interpretation Code 47-70 [facility] Work Phone: [phone] Platelet mean volume (Bld) [Entitic vol] 9.3 fL Invalid Interpretation Code 6.2-12.0 [facility] Work Phone: [phone] Platelets 169 10*3/mm3 Invalid Interpretation Code 150-450 [facility] Work Phone: [phone] Platelets (Bld) [#/Vol] 169 10*3/uL Invalid Interpretation Code 150-450 [facility] Work Phone: [phone] PMV by Ezekiel 9.3 fL Invalid Interpretation Code 6.2-12.0 [facility] Work Phone: [phone] RBC (Bld) [#/Vol] 4.49 10*6/uL Low 4.6-6.2 [facility] Work Phone: [phone] RDW SD 45.6 fL High 35.1-43.9 [facility] Work Phone: [phone] red blood cell distribution width, size density 45.6 fL High 35.1-43.9 [facility] Work Phone: [phone] WBC (Bld) [#/Vol] 5.8 10*3/uL Invalid Interpretation Code 4.4-11.0 [facility] Work Phone: [phone] WBC (Leukocytes) 5.8 10*3/uL Invalid Interpretation Code 4.4-11.0 [facility] [employer] Work Phone: [phone] Lab Report: Calcium,Totalon 08-21-2015 Calcium [Mass/Vol] 8.6 mg/dL Invalid Interpretation Code 8.5-10.1 [facility] [employer] Work Phone: [phone]) Lab Report: Carbon Dioxideon 08-21-2015 CO2 32.0 mmol/L Invalid Interpretation Code 21.0-32.0 [employer] Work Phone: [phone] CO2 (BldV) [Partial pressure] 32.0 mmol/L Invalid Interpretation Code 21.0-32.0 [facility] Work Phone: [phone]) Lab Report: Chlorideon 08-21 Chloride [Moles/Vol] 106 mmol/L Invalid Interpretation Code 98-107 [facility] Work Phone: [phone]) Lab Report: Glucoseon 2014 Glucose [Mass/Vol] 115 mg/dL High 70-110 [facility] Work Phone: [phone] Lab Report: Lipid Profileon 08-21-2015 Cholesterol [Mass/Vol] 140 mg/dL Invalid Interpretation Code 200 [facility] Work Phone: [phone] Cholesterol in HDL [Mass/Vol] 41 mg/dL Invalid Interpretation Code [employer] Work Phone: [phone] Cholesterol in LDL [Mass/Vol] 72 mg/dL Invalid Interpretation Code 0-130 [employer] Work Phone: [phone] Lipoprotein.pre-beta [Mass/Vol] 27 mg/dL Invalid Interpretation Code 5-40 [employer] Work Phone: [phone] Triglyceride [Mass/Vol] 137 mg/dL Invalid Interpretation Code [employer] [facility] Work Phone: [phone]) Lab Report: Liver Profileon 08-21-2015 Albumin [Mass/Vol] 3.6 g/dL Invalid Interpretation Code 3.4-5.0 [employer] Work Phone: [phone] ALP (Bld) [Catalytic activity/Vol] 85 U/L Invalid Interpretation Code 50-136 [facility] Work Phone: [phone] ALT [Catalytic activity/Vol] 32 U/L Invalid Interpretation Code 12-78 [employer] Work Phone: [phone] AST [Catalytic activity/Vol] 18 U/L Invalid Interpretation Code 15-37 [facility] Work Phone: [phone] Bilirubin [Mass/Vol] 0.20 mg/dL Invalid Interpretation Code 0.20-1.00 [employer] Work Phone: [phone] Bilirubin.direct [Mass/Vol] 0.11 mg/dL Invalid Interpretation Code 0.00-0.30 [employer] Work Phone: [phone] Globulin (S) [Mass/Vol] 3.2 g/dL Invalid Interpretation Code 2.3-3.5 [employer] Work Phone: [phone] Protein [Mass/Vol] 6.8 g/dL Invalid Interpretation Code 6.4-8.2 [employer] Work Phone: [phone]) Lab Report: Potassiumon Potassium [Moles/Vol] 4.5 mmol/L Invalid Interpretation Code 3.5-5.1 [employer] Work Phone: [phone]) Lab Report: Serum Creatinine AND GFRon 08-21-2015 Creatinine [Mass/Vol] 0.89 mg/dL Invalid Interpretation Code 0.70-1.30 [employer] Work Phone: [phone] eGFR (non-black) 107 mL/min/{1.73_m2} Invalid Interpretation Code >60 [employer] Work Phone: [phone] GFR/1.73 sq M.predicted among non-blacks MDRD (S/P/Bld) [Vol rate/Area] 89 mL/min/{1.73_m2} Invalid Interpretation Code >60 [employer] Work Phone: [phone] Glomerular Filtration rate 107 mL/min Invalid Interpretation Code >60 [employer] Work Phone: [phone]) Lab Report: Sodium Levelon 1 10-22-2014 Sodium [Moles/Vol] 143 mmol/L Invalid Interpretation Code 136-145 [employer] Work Phone: [phone]) Lab Report: Urinalysis, Rout ine (Dipstick)on 08-21-2015 Albumin Ql (U) Negative Invalid Interpretation Code Negative [employer] Work Phone: [phone] Bilirubin Ql (U) Negative Invalid Interpretation Code Negative [employer] Work Phone: [phone] Bilirubin Ql (U) Negative Invalid Interpretation Code Negative [employer] Work Phone: [phone] Clarity (U) Clear Invalid Interpretation Code Clear [employer] Work Phone: [phone] Color (U) Yellow Invalid Interpretation Code Yellow [employer] Work Phone: [phone] Glucose Ql (U) Normal mg/dl Invalid Interpretation Code Normal [employer] Work Phone: [phone] Ketones (U) [Mass/Vol] Negative Invalid Interpretation Code Negative [employer] Work Phone: [phone] Leukocyte esterase Test strip Ql (U) Negative Invalid Interpretation Code Negative [employer] Work Phone: [phone] NITRITE UR Negative Invalid Interpretation Code Negative [employer] Work Phone: [phone] Occult Blood, urine Negative Invalid Interpretation Code Negative [employer] Work Phone: [phone] OCCULT BLOOD-UR Negative Invalid Interpretation Code Negative [employer] Work Phone: [phone] pH (U) 5.0 [pH] Invalid Interpretation Code 5.0 - 8.0 [employer] Work Phone: [phone] Specific gravity Refractometry (U) [Rel density] 1.020 Invalid Interpretation Code 1.002-1.030 [employer] Work Phone: [phone] Urine, ketones presence Negative Invalid Interpretation Code Negative [employer] Work Phone: [phone] Urine, leukocyte esterase presence Negative Invalid Interpretation Code Negative [employer] Work Phone: [phone] Urine, pH 5.0 [pH] Invalid Interpretation Code 5.0 - 8.0 [employer] Work Phone: [phone] Urine, protein Negative Invalid Interpretation Code Negative [employer] Work Phone: [phone] UROBILI Normal mg/dl Invalid Interpretation Code Normal [employer] Work Phone: [phone]) Lab Report: Vitamin B12on Cobalamin (Vitamin B12) [Mass/Vol] pg/mL High 211-911 [employer] Work Phone: [phone] Cobalamins (Vitamin B12) pg/mL High 211-911 [email or web address] Phone: [phone] Office Visiton 03-09-2015 Dietary management education, guidance, and counseling (procedure) yes Invalid Interpretation Code [email or web address] Phone: [phone] Office Visit: [facility] 09-06-20 14 cardiac risk group C Invalid Interpretation Code [email or web address] Phone: [phone] General cardiovascular disease 10Y risk [#] [place].Irwin'Agostdeepak N/A Invalid Interpretation Code [email or web address] Phone: [phone] Tobacco smoking status Never Invalid Interpretation Code [email or web address] Phone: [phone] Replaced Document: Jennifer Curry CG Observationson 09-06-2014 EKG QRS axis -47 deg Invalid Interpretation Code [email or web address] Phone: [phone] electrocardiogram interpretation Sinus Bradycardia -First degree A-V block Demar = 222 -Left axis -anterior fascicular block. ABNORMAL Invalid Interpretation Code [email or web address] Phone: [phone] GE use only - for [employer] import when terms are not otherwise specified 404 ms Invalid Interpretation Code [email or web address] Phone: [phone] Heart rate 55 /min Invalid Interpretation Code [email or web address] Phone: [phone] Interpretation Sinus Bradycardia -First degree A-V block Demar = 222-Left axis -anterior fascicular block. ABNORMAL Invalid Interpretation Code [email or web address] Phone: [phone] P [place] 64 deg Invalid Interpretation Code [email or web address] Phone: [phone] P wave axis, electrocardiogram 64 deg Invalid Interpretation Code [email or web address] Phone: [phone] TX Interval 222 ms Invalid Interpretation Code [email or web address] Phone: [phone] TX interval, electrocardiogram 222 ms Invalid Interpretation Code [email or web address] Phone: [phone] QRS axis, electrocardiogram -47 deg Invalid Interpretation Code [email or web address] Phone: [phone] QRS Duration 102 ms Invalid Interpretation Code [email or web address] Phone: [phone] QRS duration, electrocardiogram 102 ms Invalid Interpretation Code [email or web address] Phone: [phone] QT Interval new path ms Invalid Interpretation Code [facility] Work Phone: [phone] QT interval, electrocardiogram new path ms Invalid Interpretation Code [facility] Work Phone: [phone] QTc Mcc[place] 404 ms Invalid Interpretation Code [facility] Work Phone: [phone] T [place] 36 deg Invalid Interpretation Code [facility] Work Phone: [phone] T wave axis, electrocardiogram 36 deg Invalid Interpretation Code [facility] Work Phone: [phone] Lab Report: CMPon 06-09-2014 Albumin/Globulin [Mass ratio] 1.3831036 {ratio} Normal 0.9-2.4 [facility] Work Phone: [phone] Albumin/Globulin Ratio 1.4 {ratio} Normal 0.9-2.4 [facility] Work Phone: [phone] Anion gap 2 mmol/L Low 5-15 [facility] Work Phone: [phone] Anion gap [Moles/Vol] 2 mmol/L Low 5-15 [facility] Work Phone: [phone] BUN/Creatinine Ratio 16.7 RATIO Normal 10-[address] [facility] [address] [facility] Work Phone: [phone] Urea nitrogen/Creatinine [Mass ratio] 16.5233282 mg/mg Normal 10-20 [facility] Work Phone: [phone]) Lab Report: Dra[facility] office[facility] 02-03-2014 Cholesterol.total/Chol esterol in HDL [Mass ratio] 3.4 {ratio} Invalid Interpretation Code [facility] Work Phone: [phone] Replaced Document: Jennifer E CG Ladariuson 09-03-2013 Pulse (Heart Rate) 410 ms Invalid Interpretation Code [facility] Work Phone: [phone] QT interval/QT interval (corrected for heart rate), electrocardiogram 410 ms Invalid Interpretation Code [facility] Work Phone: [phone] Lab Report: METHYLon 013 METHYL 168 nmol/L Normal 73-376 [facility] Work Phone: [phone] methylmalonic acid (MMA), serum 168 nmol/L Normal 73-376 [facility] Work Phone: [phone] Lab Report: CRPon 03-04-2013 C reactive protein (CRP) mg/L Normal 0.0-3.0 [facility] Work Phone: [phone] CRP [Mass/Vol] mg/L Normal 0.0-3.0 [facility] Work Phone: [phone] Lab Report: SEDon 03-04-2013 ESR (Bld) [Velocity] 2 mm/h Normal 0-[address] [facility] Work Phone: [phone] Lab Report: TSHon 03-04-2013 Thyroid stimulating hormone (TSH) 0.92 u[iU]/mL Normal 0.358-3.74 [facility] Work Phone: [phone] TSH Qn 0.92 m[IU]/L Normal 0.358-3.74 [facility] Work Phone: [phone] Vital Signs Date Time Vital Sign Value Performing Clinician Facility 02-06-2024 09:44-0400 Body mass index (BMI) [Ratio] 26.31 kg/m2 Vishal Jones MD Work Phone: [facility] 02-06-2024 09:44-0400 Body weight 73.94 kg Vishal Jones MD Work Phone: [facility] 02-06-2024 09:44-0400 Diastolic blood pressure 60 mm[Hg] Vishal Jones MD Work Phone: [facility] 02-06-2024 09:44-0400 Heart rate 64 /min Vishal Jones MD Work Phone: [facility] 02-06-2024 09:44-0400 Respiratory rate 16 /min Vishal Jones MD Work Phone: [facility] 02-06-2024 09:44-0400 Systolic blood pressure 106 mm[Hg] Vishal Jones MD Work Phone: [facility] 12-31-2023 13:28-0400 Body weight 73.94 kg Vishal Jones MD Work Phone: [facility] 12-31-2023 13:28-0400 Diastolic blood pressure 60 mm[Hg] Vishal Jones MD Work Phone: [facility] 12-31-2023 13:28-0400 Heart rate 72 /min Vishal Jones MD Work Phone: [facility] 12-31-2023 13:28-0400 Respiratory rate 18 /min Vishal Jones MD Work Phone: [facility] 12-31-2023 13:28-0400 Systolic blood pressure 100 mm[Hg] Vishal Jones MD Work Phone: [facility] 12-25-2023 08:18-0400 Body height 167.6 cm Vishal Jones MD Work Phone: [facility] 12-25-2023 08:18-0400 Body weight 72.58 kg Vishal Jones MD Work Phone: [facility] 12-25-2023 08:18-0400 Diastolic blood pressure 64 mm[Hg] Vishal Jones MD Work Phone: [facility] 12-25-2023 08:18-0400 Heart rate 56 /min Vishal Jones MD Work Phone: [facility] 12-25-2023 08:18-0400 SaO2% (BldA) [Mass fraction] 99 % Vishal Jones MD Work Phone: [facility] 12-25-2023 08:18-0400 Systolic blood pressure 108 mm[Hg] Vishal Jones MD Work Phone: [facility] 11-12-2023 10:16-0500 Body weight 76.2 kg Allyson Hernandez DIRECTOR IMMUNOLOGY.RUMPER Work Phone: [facility] 11-12-2023 10:16-0500 Diastolic blood pressure 50 mm[Hg] Allyson Padillahof DIRECTOR IMMUNOLOGY.RUMPER Work Phone: [facility] 11-12-2023 10:16-0500 Heart rate 116 /min Allyson Krishnaf DIRECTOR IMMUNOLOGY.RUMPER Work Phone: [facility] 11-12-2023 10:16-0500 Respiratory rate 20 /min Allyson Hernandez DIRECTOR IMMUNOLOGY.RUMPER Work Phone: [facility] 11-12-2023 10:16-0500 SaO2% (BldA) [Mass fraction] 94 % Allyson Hernandez DIRECTOR IMMUNOLOGY.RUMPER Work Phone: [facility] 11-12-2023 10:16-0500 Systolic blood pressure 110 mm[Hg] Allyson Hernandez DIRECTOR IMMUNOLOGY.RUMPER Work Phone: [facility] 11-11-2023 14:02-0500 Body height 167.6 cm Chapincito Tomlin MD Work Phone: [facility] 11-11-2023 14:02-0500 Body weight 75.93 kg Chapincito Tomlin MD Work Phone: [facility] 11-11-2023 14:02-0500 Diastolic blood pressure 74 mm[Hg] Chapincito Tomlin MD Work Phone: [facility] 11-11-2023 14:02-0500 Heart rate 112 /min Chapincito Tomlin MD Work Phone: [facility] 11-11-2023 14:02-0500 Systolic blood pressure 134 mm[Hg] Chapincito Tomlin MD Work Phone: [facility] 10-27-2023 14:13-0500 Body weight 73.94 kg Ren Chua DIRECTOR IMMUNOLOGY.RUMPER Work Phone: [facility] 10-27-2023 14:13-0500 Diastolic blood pressure 68 mm[Hg] Ren Chua DIRECTOR IMMUNOLOGY.RUMPER Work Phone: [facility] 10-27-2023 14:13-0500 Heart rate 112 /min Ren Chua DIRECTOR IMMUNOLOGY.RUMPER Work Phone: [facility] 10-27-2023 14:13-0500 Respiratory rate 16 /min Ren Chua DIRECTOR IMMUNOLOGY.RUMPER Work Phone: [facility] 10-27-2023 14:13-0500 Systolic blood pressure 112 mm[Hg] Ren Knoble DIRECTOR IMMUNOLOGY.RUMPER Work Phone: [facility] 08-01-2023 13:19-0500 Body weight 77.56 kg Ren Benjamin DIRECTOR IMMUNOLOGY.RUMPER Work Phone: [facility] 08-01-2023 13:19-0500 Diastolic blood pressure 62 mm[Hg] Ren Altonoble DIRECTOR IMMUNOLOGY.RUMPER Work Phone: [facility] 08-01-2023 13:19-0500 Heart rate 70 /min Ren Benjamin DIRECTOR IMMUNOLOGY.RUMPER Work Phone: [facility] 08-01-2023 13:19-0500 Respiratory rate 14 /min Ren Benjamin DIRECTOR IMMUNOLOGY.RUMPER Work Phone: [facility] 08-01-2023 13:19-0500 Systolic blood pressure 118 mm[Hg] Ren Altonoble DIRECTOR IMMUNOLOGY.RUMPER Work Phone: [facility] 05-29-2023 14:26-0400 Body temperature 98.49 [degF] Kassandra Praisler-Ashkan DIRECTOR IMMUNOLOGY.RUMPER Work Phone: [facility] 05-29-2023 14:26-0400 Body weight 80.74 kg Kassandra Villanuevaler-Ashkan DIRECTOR IMMUNOLOGY.RUMPER Work Phone: [facility] 05-29-2023 14:26-0400 Diastolic blood pressure 66 mm[Hg] Kassandra Praisler-Wood DIRECTOR IMMUNOLOGY.RUMPER Work Phone: [facility] 05-29-2023 14:26-0400 Heart rate 85 /min Kassandra Praisler-Wood DIRECTOR IMMUNOLOGY.RUMPER Work Phone: [facility] 05-29-2023 14:26-0400 Respiratory rate 23 /min Kassandra Praisler-Wood DIRECTOR IMMUNOLOGY.RUMPER Work Phone: [facility] 05-29-2023 14:26-0400 SaO2% (BldA) [Mass fraction] 99 % Kassandra Praisler-Wood DIRECTOR IMMUNOLOGY.RUMPER Work Phone: [facility] 05-29-2023 14:26-0400 Systolic blood pressure 132 mm[Hg] Kassandra Grady APRN.CNP Work Phone: [facility] 05-07-2023 18:57-0400 Body temperature 98.29 [degF] Vishal Jones MD Work Phone: [facility] 05-07-2023 18:57-0400 Body weight 79.83 kg Vishal Jones MD Work Phone: [facility] 05-07-2023 18:57-0400 Diastolic blood pressure 72 mm[Hg] Vishal Jones MD Work Phone: [facility] 05-07-2023 18:57-0400 Heart rate 88 /min Vishal Jones MD Work Phone: [facility] 05-07-2023 18:57-0400 Respiratory rate 18 /min Vishal Jones MD Work Phone: [facility] 05-07-2023 18:57-0400 Systolic blood pressure 112 mm[Hg] Vishal Jones MD Work Phone: [facility] 04-01-2023 10:02-0400 Body temperature 97.81 [degF] Howie Masci DO Work Phone: [facility] 04-01-2023 10:02-0400 Body weight 82.56 kg Howie Masci DO Work Phone: [facility] 04-01-2023 10:02-0400 Diastolic blood pressure 91 mm[Hg] Howie Masci DO Work Phone: [facility] 04-01-2023 10:02-0400 Heart rate 92 /min Howie Masci DO Work Phone: [facility] 04-01-2023 10:02-0400 SaO2% (BldA) [Mass fraction] 97 % Howie Masci DO Work Phone: [facility] 04-01-2023 10:02-0400 Systolic blood pressure 154 mm[Hg] Howie Masci DO Work Phone: [facility] 03-27-2023 10:32-0400 Diastolic blood pressure 66 mm[Hg] Vishal Jones MD Work Phone: [facility] 03-27-2023 10:32-0400 Systolic blood pressure 132 mm[Hg] Vishal Jones MD Work Phone: [facility] 03-27-2023 09:55-0400 Body weight 83.92 kg Vishal Jones MD Work Phone: [facility] 03-27-2023 09:55-0400 Heart rate 91 /min Vishal Jones MD Work Phone: [facility] 03-27-2023 09:55-0400 Respiratory rate 18 /min Vishal Jones MD Work Phone: [facility] 03-27-2023 09:55-0400 SaO2% (BldA) [Mass fraction] 96 % Vishal Jones MD Work Phone: [facility] 01-15-2023 09:27-0400 Body temperature 98.01 [degF] Clement Werner MD, MD Work Phone: [facility] 01-15-2023 09:27-0400 Body weight 81.19 kg Clement Werner MD, MD Work Phone: [facility] 01-15-2023 09:27-0400 Diastolic blood pressure 81 mm[Hg] Clement Werner MD, MD Work Phone: [facility] 01-15-2023 09:27-0400 Heart rate 89 /min Clement Werner MD, MD Work Phone: [facility] 01-15-2023 09:27-0400 Respiratory rate 16 /min Clement Werner MD, MD Work Phone: [facility] 01-15-2023 09:27-0400 SaO2% (BldA) [Mass fraction] 97 % Clement Werner MD, MD Work Phone: [facility] 01-15-2023 09:27-0400 Systolic blood pressure 147 mm[Hg] Clement Werner MD, MD Work Phone: [facility] 01-01-2023 18:26-0400 Body weight 82.1 kg Vishal Jones MD Work Phone: [facility] 01-01-2023 18:26-0400 Diastolic blood pressure 76 mm[Hg] Vishal Jones MD Work Phone: [facility] 01-01-2023 18:26-0400 Heart rate 82 /min Vishal Jones MD Work Phone: [facility] 01-01-2023 18:26-0400 Respiratory rate 16 /min Vishal Jones MD Work Phone: [facility] 01-01-2023 18:26-0400 Systolic blood pressure 138 mm[Hg] Vishal Jones MD Work Phone: [facility] 12-20-2022 09:59-0400 Body temperature 98.6 [degF] Clement Werner MD, MD Work Phone: [facility] 12-20-2022 09:59-0400 Body weight 83.92 kg Clement Werner MD, MD Work Phone: [facility] 12-20-2022 09:59-0400 Diastolic blood pressure 72 mm[Hg] Clement Werner MD, MD Work Phone: [facility] 12-20-2022 09:59-0400 Heart rate 102 /min Clement Werner MD, MD Work Phone: [facility] 12-20-2022 09:59-0400 Respiratory rate 20 /min Clement Werner MD, MD Work Phone: [facility] 12-20-2022 09:59-0400 SaO2% (BldA) [Mass fraction] 98 % Clement Werner MD, MD Work Phone: [facility] 12-20-2022 09:59-0400 Systolic blood pressure 148 mm[Hg] Clement Werner MD, MD Work Phone: [facility] 11-15-2022 09:16-0500 Body weight 81.19 kg Vishal Jones MD Work Phone: [facility] 11-15-2022 09:16-0500 Diastolic blood pressure 60 mm[Hg] Vishal Jones MD Work Phone: [facility] 11-15-2022 09:16-0500 Heart rate 68 /min Vishal Jones MD Work Phone: [facility] 11-15-2022 09:16-0500 Systolic blood pressure 126 mm[Hg] Vishal Jones MD Work Phone: [facility] 10-21-2022 13:55-0500 Body temperature 99.5 [degF] Edmar Liu Jr., MD Work Phone: [facility] 10-21-2022 13:55-0500 Body weight 79.11 kg Edmar Liu Jr., MD Work Phone: [facility] 10-21-2022 13:55-0500 Diastolic blood pressure 64 mm[Hg] Edmar Liu Jr., MD Work Phone: [facility] 10-21-2022 13:55-0500 Heart rate 87 /min Edmar Liu Jr., MD Work Phone: [facility] 10-21-2022 13:55-0500 Respiratory rate 16 /min Edmar Liu Jr., MD Work Phone: [facility] 10-21-2022 13:55-0500 SaO2% (BldA) [Mass fraction] 95 % Edmar Liu Jr., MD Work Phone: [facility] 10-21-2022 13:55-0500 Systolic blood pressure 110 mm[Hg] Edmar Liu Jr., MD Work Phone: [facility] 10-09-2022 15:04-0500 Body temperature 99.5 [degF] Vishal Jones MD Work Phone: [facility] 10-09-2022 15:04-0500 Body weight 80.29 kg Vishal Jones MD Work Phone: [facility] 10-09-2022 15:04-0500 Diastolic blood pressure 82 mm[Hg] Vishal Jones MD Work Phone: [facility] 10-09-2022 15:04-0500 Heart rate 88 /min Vishal Jones MD Work Phone: [facility] 10-09-2022 15:04-0500 Respiratory rate 16 /min Vishal Jones MD Work Phone: [facility] 10-09-2022 15:04-0500 Systolic blood pressure 142 mm[Hg] Vishal Jones MD Work Phone: [facility] 09-25-2022 13:23-0500 Body weight 80.74 kg Vishal Jones MD Work Phone: [facility] 09-25-2022 13:23-0500 Diastolic blood pressure 72 mm[Hg] Vishal Jones MD Work Phone: [facility] 09-25-2022 13:23-0500 Respiratory rate 18 /min Vishal Jones MD Work Phone: [facility] 09-25-2022 13:23-0500 Systolic blood pressure 136 mm[Hg] Vishal Jones MD Work Phone: [facility] 09-23-2022 10:14-0500 Body height 167.6 cm BRITTNEE Gonzalez MD Work Phone: [facility] 09-23-2022 10:14-0500 Body weight 79.38 kg BRITTNEE Gonzalez MD Work Phone: [facility] 09-23-2022 10:14-0500 Diastolic blood pressure 58 mm[Hg] BRITTNEE Gonzalez MD Work Phone: [facility] 09-23-2022 10:14-0500 Heart rate 114 /min BRITTNEE Gonzalez MD Work Phone: [facility] 09-23-2022 10:14-0500 Systolic blood pressure 116 mm[Hg] BRITTNEE Gonzalez MD Work Phone: [facility] 08-19-2022 15:27-0500 Body temperature 98.1 [degF] Edmar Liu Jr., MD Work Phone: [facility] 08-19-2022 15:27-0500 Body weight 78.47 kg Edmar Liu Jr., MD Work Phone: [facility] 08-19-2022 15:27-0500 Diastolic blood pressure 70 mm[Hg] Edmar Liu Jr., MD Work Phone: [facility] 08-19-2022 15:27-0500 Heart rate 83 /min Edmar Liu Jr., MD Work Phone: [facility] 08-19-2022 15:27-0500 Respiratory rate 18 /min Edmar Liu Jr., MD Work Phone: [facility] 08-19-2022 15:27-0500 SaO2% (BldA) [Mass fraction] 96 % Edmar Liu Jr., MD Work Phone: [facility] 08-19-2022 15:27-0500 Systolic blood pressure 112 mm[Hg] Edmar Liu Jr., MD Work Phone: [facility] 07-24-2022 15:03-0500 Body temperature 99.5 [degF] Vishal Jones MD Work Phone: [facility] 07-24-2022 15:03-0500 Body weight 77.56 kg Vishal Jones MD Work Phone: [facility] 07-24-2022 15:03-0500 Diastolic blood pressure 72 mm[Hg] Vishal Jones MD Work Phone: [facility] 07-24-2022 15:03-0500 Heart rate 72 /min Vishal Jones MD Work Phone: [facility] 07-24-2022 15:03-0500 Respiratory rate 18 /min Vishal Jones MD Work Phone: [facility] 07-24-2022 15:03-0500 Systolic blood pressure 130 mm[Hg] Vishal Jones MD Work Phone: [facility] 07-15-2022 12:08-0400 Body temperature 100.71 [degF] Rebecca Rossi APRN.RUMPER Work Phone: [facility] 07-15-2022 12:08-0400 Body weight 75.75 kg Rebecca Rossi APRN.RUMPER Work Phone: [facility] 07-15-2022 12:08-0400 Diastolic blood pressure 86 mm[Hg] Rebecca Rossi APRN.RUMPER Work Phone: [facility] 07-15-2022 12:08-0400 Heart rate 120 /min Rebecca Rossi APRN.RUMPER Work Phone: [facility] 07-15-2022 12:08-0400 Respiratory rate 20 /min Rebecca Rossi APRN.RUMPER Work Phone: [facility] 07-15-2022 12:08-0400 SaO2% (BldA) [Mass fraction] 96 % Rebecca Rossi APRN.RUMPER Work Phone: [facility] 07-15-2022 12:08-0400 Systolic blood pressure 142 mm[Hg] Rebecca Rossi APRN.RUMPER Work Phone: [facility] 05-15-2022 09:50-0400 Body weight 78.02 kg Vishal Jones MD Work Phone: [facility] 05-15-2022 09:50-0400 Diastolic blood pressure 70 mm[Hg] Vishal Jones MD Work Phone: [facility] 05-15-2022 09:50-0400 Heart rate 68 /min Vishal Jones MD Work Phone: [facility] 05-15-2022 09:50-0400 Respiratory rate 14 /min Vishal Jones MD Work Phone: [facility] 05-15-2022 09:50-0400 Systolic blood pressure 120 mm[Hg] Vishal Jones MD Work Phone: [facility] 03-26-2022 08:42-0400 Body height 169.5 cm Jeanne Oneal DO Work Phone: [facility] 03-26-2022 08:42-0400 Body weight 77.56 kg Jeanne Oneal DO Work Phone: [facility] 03-26-2022 08:42-0400 Diastolic blood pressure 71 mm[Hg] Jeanne Oneal DO Work Phone: [facility] 03-26-2022 08:42-0400 Heart rate 82 /min Jeanne Oneal DO Work Phone: [facility] 03-26-2022 08:42-0400 SaO2% (BldA) [Mass fraction] 98 % Jeanne Oneal DO Work Phone: [facility] 03-26-2022 08:42-0400 Systolic blood pressure 132 mm[Hg] Jeanne Oneal DO Work Phone: [facility] 03-25-2022 09:33-0400 Body weight 77.47 kg NA Carlos SU Work Phone: [facility] 03-25-2022 09:33-0400 Diastolic blood pressure 60 mm[Hg] BRITTNEE Gonzalez MD Work Phone: [facility] 03-25-2022 09:33-0400 Heart rate 70 /min BRITTNEE Gonzalez MD Work Phone: [facility] 03-25-2022 09:33-0400 SaO2% (BldA) [Mass fraction] 98 % BRITTNEE Gonzalez MD Work Phone: [facility] 03-25-2022 09:33-0400 Systolic blood pressure 108 mm[Hg] BRITTNEE Gonzalez MD Work Phone: [facility] 03-21-2022 08:16-0400 Body temperature 98.91 [degF] Ashley Marshall DIRECTOR IMMUNOLOGY.RUMPER Work Phone: [facility] 03-21-2022 08:16-0400 Body weight 79.61 kg Ashley Marshall DIRECTOR IMMUNOLOGY.RUMPER Work Phone: [facility] 03-21-2022 08:16-0400 Diastolic blood pressure 70 mm[Hg] Ashley Marshall DIRECTOR IMMUNOLOGY.RUMPER Work Phone: [facility] 03-21-2022 08:16-0400 Heart rate 81 /min [place] DIRECTOR IMMUNOLOGY.RUMPER Work Phone: [facility] 03-21-2022 08:16-0400 Systolic blood pressure 132 mm[Hg] Ashley Marshall DIRECTOR IMMUNOLOGY.RUMPER Work Phone: [facility] 12-14-2021 09:09-0400 Body temperature 97.9 [degF] Sharda Carl PA-C Work Phone: [facility] 12-14-2021 09:09-0400 Body weight 78.93 kg Sharda Carl PA-C Work Phone: [facility] 12-14-2021 09:09-0400 Diastolic blood pressure 62 mm[Hg] Sharda Carl PA-C Work Phone: [facility] 12-14-2021 09:09-0400 Heart rate 80 /min Sharda Carl PA-C Work Phone: [facility] 12-14-2021 09:09-0400 Respiratory rate 18 /min Sharda Carl PA-C Work Phone: [facility] 12-14-2021 09:09-0400 Systolic blood pressure 110 mm[Hg] Sharda Carl PA-C Work Phone: [facility] 12-08-2021 08:53-0400 Body weight 78.93 kg Vishal Jones MD Work Phone: [facility] 12-08-2021 08:53-0400 Diastolic blood pressure 66 mm[Hg] Vishal Jones MD Work Phone: [facility] 12-08-2021 08:53-0400 Heart rate 78 /min Vishal Jones MD Work Phone: [facility] 12-08-2021 08:53-0400 Respiratory rate 14 /min Vishal Jones MD Work Phone: [facility] 12-08-2021 08:53-0400 Systolic blood pressure 132 mm[Hg] Vishal Jones MD Work Phone: [facility] 08-05-2017 13:14-0500 BMI (Body Mass Index) 26.31 kg/m2 [facility] Work Phone: 08-05-2017 13:14-0500 Body weight 76.2 kg Nikolay Villa [facility] Work Phone: 08-05-2017 13:14-0500 BP Diastolic 58 mm[Hg] [facility] Work Phone: 08-05-2017 13:14-0500 BP Systolic 104 mm[Hg] [facility]olay [facility] Work Phone: 08-05-2017 13:14-0500 Height 170.18 cm [facility]olay [facility] Work Phone: 08-05-2017 13:14-0500 Pulse (Heart Rate) 72 /min [facility]olay [facility] Work Phone: 08-05-2017 13:14-0500 Respiratory Rate 20 /min Jaketalcullen [facility] Work Phone: 08-05-2017 13:14-0500 Weight 76.2 kg [facility] Work Phone: 01-28-2017 10:26-0400 Body height 170.18 cm Ann-Marie Fox Work Phone: [facility] Work Phone: 01-28-2017 10:26-0400 Body mass index (BMI) [Ratio] 26.54 kg/m2 Ann-Marie Smith Work Phone: [facility] Work Phone: 01-28-2017 10:26-0400 Body weight 76.89 kg Ann-Marie Fox Work Phone: [facility] Work Phone: 01-28-2017 10:26-0400 Diastolic blood pressure 50 mm[Hg] Ann-Marie Fox Work Phone: [facility] Work Phone: 01-28-2017 10:26-0400 Heart rate 64 /min Ann-Marie Fox Work Phone: [facility] Work Phone: 01-28-2017 10:26-0400 Respiratory rate 20 /min Ann-Marie Fox Work Phone: [facility] Work Phone: 01-28-2017 10:26-0400 Systolic blood pressure 100 mm[Hg] Ann-Marie Fox Work Phone: [facility] Work Phone: 01-28-2017 10:26-0400 Weight 76.89 kg [facility] Work Phone: 07-25-2016 10:04-0500 Body [...] Date Encounter Type Care Provider Facility Start: 05-10-2024 End: 05-11-2024 Telephone encounter Howie Greenberg DO Work Phone: Hematology/Oncology Comment on above: Results; General Que stions; Question Appointment Start: 05-07-2024 End: 05-07-2024 Telephone encounter Vishal Jones MD Work Phone: [facility] Comment on above: guardianship forms Start: 05-06-2024 End: 05-06-2024 Telephone encounter Howie Greenberg DO Work Phone: Hematology/Oncology Start: 05-03-2024 End: 05-03-2024 Telephone encounter Howie Aide Dionicio DO Work Phone: Hematology/Oncology Start: 05-01-2024 End: 05-04-2024 Telephone encounter Vishal Jones MD Work Phone: [facility] Comment on above: Patient Question Start: 04-30-2024 Telephone encounter Vishal Jones MD Work Phone: [facility] Comment on above: requested records to [facility] Start: 04-23-2024 Telephone encounter Howie mireles DO Work Phone: Hematology/Oncology Comment on above: Orders Start: 04-20-2024 Chart abstracting Vishal gonzalez MD Work Phone: [facility] Comment on above: Hospital F/U Start: 04-19-2024 Telephone encounter Vishal Jones MD Work Phone: [facility] Comment on above: Patient Update Start: 04-15-2024 Chart abstracting Vishal gonzalez MD Work Phone: [facility] Comment on above: ER Discharge Summary (H&P) Start: 04-15-2024 Telephone encounter Howie mireles DO Work Phone: Hematology/Oncology Comment on above: Patient Update Start: 04-14-2024 Telephone encounter Sharda cassidy PA-C Work Phone: Family [facility] [place] Comment on above: Patient Update [facility] ER requesting re cords Start: 04-08-2024 Telephone encounter Vishal Jones MD Work Phone: Family [facility] [place] Comment on above: Patient Update Start: 02-20-2024 Telephone encounter Vishal Jones MD Work Phone: [facility] Comment on above: [facility] C PT upd ate on POC Start: 02-06-2024 End: 02-06-2024 ambulatory VISHAL JONES Facility:[facility] Start: 02-06-2024 End: 02-06-2024 Patient encounter procedure Vishal Jones MD Work Phone: [facility] Comment on above: Orthostatic hypotens ion (Primary Dx); Falls frequently; 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) Start: 02-05-2024 Telephone encounter Vishal Jones MD Work Phone: [facility] [place] Comment on above: Patient Update Start: 01-30-2024 Telephone encounter Vishal Jones MD Work Phone: [facility] [place] Comment on above: Results Start: 01-30-2024 End: 01-30-2024 ambulatory Lab/[place] [facility] Work Phone: Hematology/Oncology Comment on above: 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 (Primary Dx) Start: 01-30-2024 End: 01-30-2024 Subsequent hospital visit by physician Sheyla [facility] (I-Stat) Work Phone: Cat Scan Comment on above: Vasculopathy [I99.9] Start: 01-28-2024 Telephone encounter Vishal Jones MD Work Phone: [facility] [place] Comment on above: [facility] PT POC Start: 01-27-2024 Telephone encounter Vishal Jones MD Work Phone: Family [facility] [place] Comment on above: Medication Request Start: 01-21-2024 Telephone encounter Vishal Jones MD Work Phone: Family [facility] Comment on above: Patient Update Start: 01-19-2024 ambulatory Catalina Rios RN [facility] Start: 01-19-2024 Telephone follow-up Catalina [employer] Comment on above: Transition Of Care ( OON TCM follow up) Weekly phone contact (Recurring) for Transitional Care Management Start: 01-15-2024 Telephone encounter Vishal Jones MD Work Phone: [facility] [place] Comment on above: Patient Question Start: 01-14-2024 Home visit Vishal manzano MD Work Phone: [facility] [place] Comment on above: Acute renal failure, unspecified acute renal failure type (HCC) (Primary Dx) Start: 01-14-2024 Telephone encounter Vishal Jones MD Work Phone: Family [facility] [place] Comment on above: Results Start: 01-13-2024 Telephone encounter Vishal Jones MD Work Phone: [facility] [place] Comment on above: Patient Update Start: 01-13-2024 End: 01-13-2024 ambulatory VISHAL JONES Facility:[facility] Start: 01-12-2024 Telephone encounter Vishal Jones MD Work Phone: [facility] [place] Comment on above: Results Start: 01-09-2024 Telephone encounter Vishal Jones MD Work Phone: [facility] [place] Comment on above: HH Call: Speech Ther apy Plan of Care Orders Start: 01-09-2024 End: 01-09-2024 ambulatory VISHAL JONES Facility:[facility] Start: 01-09-2024 End: 01-09-2024 ambulatory VISHAL A PACO Facility:[facility] Start: 01-07-2024 Telephone encounter Vishal Jones MD Work Phone: [facility] Comment on above: [facility] - lab result Start: 01-05-2024 Telephone encounter Vishal Jones MD Work Phone: [facility] Comment on above: Orders; Patient Upda te Start: 01-02-2024 Telephone encounter [facility]al Jones MD [facility] Start: 12-31-2023 Telephone encounter Vishal Jones MD Work Phone: [facility] Comment on above: Results Start: 12-31-2023 End: 12-31-2023 ambulatory VISHAL JONES Facility:[facility] Start: 12-31-2023 End: 12-31-2023 Patient encounter procedure Vishal Jones MD Work Phone: [facility] Comment on above: Hyperkalemia (Primar y Dx); TORRIE (acute kidney injury) (HCC) Start: 12-29-2023 Refill Vishal manzano MD Work Phone: [facility] Comment on above: Refill Request Insurance Authorizat ion Transition Of Care ( TCM Initial Outreach: [facility] 12/27/23, hyperkalemia) Appointment Start: 12-26-2023 Telephone encounter Howie mireles DO Work Phone: Hematology/Oncology Comment on above: Results Start: 12-25-2023 Telephone encounter Howie mireles DO Work Phone: Hematology/Oncology Comment on above: Results (critical po tassium) Start: 12-25-2023 End: 12-25-2023 Subsequent hospital visit by physician Ct Prep [facility] Cat Scan Comment on above: Rectal cancer (HCC) [C20] Start: 12-25-2023 End: 12-25-2023 ambulatory [place] [facility] Work Phone: Hematology/Oncology Comment on above: Rectal cancer (HCC) Start: 12-25-2023 End: 12-25-2023 Patient encounter procedure Vishal Jones MD Work Phone: [facility] Comment on above: Dementia with behavi oral disturbance (HCC) (Primary Dx); Essential hypertension; Hyperlipidemia, mixed; SALAS (generalized anxiety disorder); Coronary artery disease involving [place] coronary artery of [place] heart without angina pectoris; Paroxysmal atrial fibrillation (HCC); Elevated hemoglobin A1c; Situational depression; BPH with obstruction/lower urinary tract symptoms; Sexually acting out; Malignant neoplasm of sigmoid colon (HCC); Malignant neoplasm of ascending colon (HCC); 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); Rectal cancer (HCC); Malignant neoplasm of colon, unspecified part of colon (HCC); Primary insomnia; Alcohol use disorder; 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); Colostomy in place (HCC); Colostomy care (HCC); 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); Chronic midline low back pain with right-sided sciatica; Generalized weakness; Falls frequently; Decreased transfer ability Start: 12-23-2023 Telephone encounter Vishal Jones MD Work Phone: [facility] [place] Comment on above: Home Health Order Re quest Start: 12-09-2023 Refill Ren curry DIRECTOR IMMUNOLOGY.RUMPER Work Phone: [facility] [place] Comment on above: Refill Request Start: 12-08-2023 Telephone encounter Sylvia Rossi MA [facility] Start: 11-20-2023 Chart abstracting Vishal gonzalez MD Work Phone: [facility] [place] Comment on above: Outside H&P Start: 11-19-2023 Telephone encounter Vishal Jones MD Work Phone: [facility] [place] Comment on above: patient update/place ment needed Start: 11-17-2023 Telephone encounter Howie mireles DO Work Phone: Hematology/Oncology Comment on above: Appointment Start: 11-14-2023 Chart abstracting Vishal gonzalez MD Work Phone: [facility] [place] Comment on above: ER Discharge Summary (Imaging) Rectal cancer (HCC) (Primary Dx) Start: 11-13-2023 Telephone encounter Allyson Matt bales DIRECTOR IMMUNOLOGY.RUMPER Work Phone: [facility] [place] Comment on above: Results (Covid, Flu, RSV) Results (CT Chest ) Start: 11-13-2023 End: 11-13-2023 ambulatory [place] [facility] Work Phone: Hematology/Oncology Comment on above: Malignant neoplasm o f sigmoid colon (HCC) (Primary Dx) Start: 11-13-2023 End: 11-13-2023 Subsequent hospital visit by physician Ct [facility] (I-Stat) Work Phone: Cat Scan Comment on above: Abnormal chest x-ray [R93.89] Start: 11-12-2023 Telephone encounter Allyson bales DIRECTOR IMMUNOLOGY.RUMPER Work Phone: [facility] [place] Comment on above: Results (Chest Xray ); Orders Medication Question Start: 11-12-2023 End: 11-12-2023 ambulatory [facility] Facility:[facility] Start: 11-12-2023 End: 11-12-2023 Patient encounter procedure Allyson Hernandez DIRECTOR IMMUNOLOGY.RUMPER Work Phone: [facility] [place] Comment on above: Lower resp. tract in fection (Primary Dx); Acute cough Start: 11-12-2023 End: 11-12-2023 Subsequent hospital visit by physician Gricelda [facility] [place] Work Phone: Radiology Comment on above: Acute cough [R05.1] Start: 11-12-2023 End: 11-12-2023 ambulatory [facility] Facility:[facility] Start: 11-11-2023 End: 11-11-2023 ambulatory CHAPINCITO TOMLIN Facility:[facility] Start: 11-11-2023 End: 11-11-2023 Patient encounter procedure Chapincito Tomlin MD Work Phone: Neurology Comment on above: Polypharmacy (Primar y Dx); Alcohol dependence with uncomplicated intoxication (HCC); Dementia, unspecified dementia severity, unspecified dementia type, unspecified whether behavioral, psychotic, or mood disturbance or anxiety (HCC) Start: 11-07-2023 Telephone encounter Vishal Jones MD Work Phone: [facility] [place] Comment on above: Patient Question Start: 10-31-2023 Telephone encounter Chapincito Tomlin MD Work Phone: Neurology Comment on above: Results Start: 10-30-2023 ambulatory CHAPINCITO TOMLIN Facility:[facility] Start: 10-30-2023 End: 10-30-2023 Subsequent hospital visit by physician Mri [facility] (I-Stat/Lg Bore/1.5t) [facility] Comment on above: Dementia, unspecifie d dementia severity, unspecified dementia type, unspecified whether behavioral, psychotic, or mood disturbance or anxiety ([facility]) [F03.90] Start: 10-30-2023 Refill Ren curry APRN.RUMPER Work Phone: [facility] [place] Comment on above: Refill Request Start: 10-30-2023 Telephone encounter Vishal Jones MD Work Phone: [facility] [place] Comment on above: Results Start: 10-29-2023 End: 10-29-2023 ambulatory VISHAL JONES Facility:[facility] Start: 10-29-2023 End: 10-29-2023 Subsequent hospital visit by physician Xr [facility] Work Phone: Radiology Comment on above: Pain of right hip [M 25.551] Start: 10-28-2023 Telephone encounter Vishal Jones MD Work Phone: [facility] [place] Comment on above: medication issue/req uesting x-ray Start: 10-27-2023 End: 10-27-2023 ambulatory Vishal Jones MD Work Phone: [facility] [place] Comment on above: Fall Start: 10-27-2023 End: 10-27-2023 Patient encounter procedure Ren Chua APRN.RUMPER Work Phone: [facility] [place] Comment on above: Dysuria (Primary Dx) ; Urinary tract infection with hematuria, site unspecified Start: 10-15-2023 End: 10-15-2023 ambulatory VISHAL JONES Facility:[facility] Start: 09-18-2023 End: 09-18-2023 ambulatory VISHAL JONES Facility:[facility] Start: 09-01-2023 End: 09-01-2023 ambulatory VISHAL JONES Facility:[facility] Start: 08-26-2023 End: 08-26-2023 ambulatory Chapincito Tomlin MD Work Phone: Neurology Comment on above: Polypharmacy (Primar y Dx); Dementia, unspecified dementia severity, unspecified dementia type, unspecified whether behavioral, psychotic, or mood disturbance or anxiety (HCC); Falls frequently; Alcohol dependence with uncomplicated intoxication (HCC); Driving safety issue Start: 08-26-2023 End: 08-26-2023 Telemedicine consultation with patient Chapincito Tomlin MD Work Phone: [facility] Start: 08-01-2023 End: 08-01-2023 Patient encounter procedure Ren Chua APRN.CNP Work Phone: [facility] [place] Comment on above: Elbow effusion, left (Primary Dx); SALAS (generalized anxiety disorder) Start: 08-01-2023 End: 08-01-2023 ambulatory VISHAL JONES Facility:[facility] Start: 07-29-2023 End: 07-29-2023 ambulatory VISHAL JONES Facility:[facility] Start: 07-24-2023 End: 07-24-2023 ambulatory [facility] Facility:[facility] Start: 07-17-2023 Telephone encounter Vishal Jones MD Work Phone: [facility] [place] Comment on above: DME for ostomy suppl ies Start: 07-15-2023 Telephone encounter Vishal Jones MD Work Phone: [facility] [place] Comment on above: daughter needs note for court hearing today Start: 07-14-2023 Chart abstracting Vishal gonzalez MD Work Phone: [facility] [place] Comment on above: ext document (ER rep ort) Start: 07-09-2023 End: 07-09-2023 ambulatory [facility] [facility] Work Phone: Hematology/Oncology Comment on above: Rectal cancer (HCC) Start: 07-09-2023 End: 07-09-2023 Subsequent hospital visit by physician Sheyla [facility] (I-Stat) Work Phone: Cat Scan Comment on above: Malignant neoplasm o f rectum (HCC) [C20] Start: 07-07-2023 Telephone encounter Vishal Jones MD Work Phone: [facility] [place] Comment on above: Patient Question Start: 06-30-2023 Telephone encounter Edmar Liu MD Work Phone: Neurology Comment on above: Patient Question POA question Start: 06-26-2023 Telephone encounter Vihsal Jones MD Work Phone: [facility] [place] Comment on above: Patient Question Start: 06-06-2023 Telephone encounter Vishal Jones MD Work Phone: [facility] [place] Comment on above: Patient Update Start: 06-05-2023 End: 06-05-2023 ambulatory [facility] [facility] Work Phone: Hematology/Oncology Comment on above: Malignant neoplasm o f sigmoid colon (HCC) (Primary Dx) Start: 05-30-2023 Refill Vishal manzano MD Work Phone: [facility] [place] Comment on above: Refill Request Start: 05-29-2023 End: 05-29-2023 ambulatory VISHAL JONES Facility:[facility] Start: 05-29-2023 End: 05-29-2023 Patient encounter procedure Kassandra [facility] APRN.RUMPER Work Phone: [facility] Comment on above: Upper respiratory vi david (Primary Dx); Acute cough Start: 05-20-2023 Home visit Vishal manzano MD Work Phone: [facility] [place] Comment on above: Closed fracture of d istal end of left humerus with routine healing, unspecified fracture morphology, subsequent encounter (Primary Dx) Start: 05-20-2023 Telephone encounter Vishal Jones MD Work Phone: [facility] [place] Comment on above: OT plan of care Start: 05-16-2023 Refill Vishal manzano MD Work Phone: [facility] [place] Comment on above: Refill Request; Skil led Nursing Plan of Care Start: 05-13-2023 Telephone encounter Vishal Jones MD Work Phone: [facility] [place] Comment on above: Home Health Point of Care Results Opened In Error Start: 05-12-2023 Refill Vishal manzano MD Work Phone: [facility] [place] Comment on above: Refill Request Start: 05-09-2023 Refill Vishal manzano MD Work Phone: [facility] [place] Comment on above: Opened In Error Start: 05-08-2023 Telephone encounter Vishal Jones MD Work Phone: [facility] [place] Comment on above: HHC Order Request; M edication Request Start: 05-08-2023 End: 05-08-2023 ambulatory [facility] [facility] Work Phone: Hematology/Oncology Comment on above: Malignant neoplasm o f sigmoid colon (HCC) (Primary Dx) Start: 05-07-2023 End: 05-07-2023 Patient encounter procedure Vishal Jones MD Work Phone: [facility] [place] Comment on above: Acute encephalopathy (Primary Dx); Dementia without behavioral disturbance (HCC); Closed nondisplaced fracture of styloid process of left ulna, initial encounter; Acute cystitis without hematuria; Cellulitis of skin Start: 05-06-2023 Telephone encounter Vishal Jones MD Work Phone: [facility] [place] Comment on above: home health calling and request verbal order Start: 04-23-2023 Chart abstracting Vishal gonzalez MD Work Phone: [facility] [place] Comment on above: Outside H+P Start: 04-18-2023 Chart abstracting Vishal gonzalez MD Work Phone: [facility] [place] Start: 04-17-2023 Chart abstracting Vishal gonzalez MD Work Phone: [facility] [place] Comment on above: outside imaging Start: 04-10-2023 End: 04-10-2023 ambulatory [facility] [facility] Work Phone: Hematology/Oncology Comment on above: Malignant neoplasm o f rectum (HCC) (Primary Dx) Start: 04-02-2023 Telephone encounter Howie mireles DO Work Phone: Hematology/Oncology Comment on above: Patient Question Start: 04-01-2023 Telephone encounter Vishal Jones MD Work Phone: [facility] [place] Comment on above: Results Start: 04-01-2023 End: 04-01-2023 ambulatory Howie Greenberg DO Work Phone: Hematology/Oncology Comment on above: Malignant neoplasm o f rectum (HCC) (Primary Dx) Start: 04-01-2023 End: 04-01-2023 Patient encounter procedure Howie Greenberg DO Work Phone: [facility] Start: 03-27-2023 End: 03-27-2023 Patient encounter procedure Vishal Jones MD Work Phone: [facility] Work Phone: Comment on above: Medicare annual [facility] visit, subsequent (Primary Dx); Essential hypertension; Hyperlipidemia, mixed; Elevated hemoglobin A1c; Paroxysmal atrial fibrillation (HCC); Coronary artery disease involving [place] coronary artery of [place] heart without angina pectoris; Bilateral carotid artery stenosis; SALAS (generalized anxiety disorder); Situational depression; Dementia without behavioral disturbance (HCC); Malignant neoplasm of colon, unspecified part of colon (HCC); Malignant neoplasm of ascending colon (HCC); Malignant neoplasm of sigmoid colon (HCC); Rectal cancer (HCC); 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); Colostomy care (HCC); Colostomy in place (HCC); 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); History of prostate cancer Start: 03-26-2023 Telephone encounter Vishal Jones MD Work Phone: [facility] [place] Comment on above: Patient Update Start: 03-10-2023 End: 03-10-2023 ambulatory [facility] [facility] Work Phone: Hematology/Oncology Comment on above: Malignant neoplasm o f sigmoid colon (HCC) (Primary Dx) Start: 03-10-2023 End: 03-10-2023 Subsequent hospital visit by physician Ct [facility] (I-Stat) Work Phone: Cat Scan Comment on above: Malignant neoplasm o f rectum (HCC) [C20] Start: 02-19-2023 Telephone encounter Clement Miguel MD Work Phone: Radiation Oncology Comment on above: follow up appointmen ts Start: 01-23-2023 Patient encounter procedure Clement Werner MD, MD Work Phone: [facility] Start: 01-23-2023 Radiation Oncology Note Binta Werner MD Work Phone: Radiation Oncology Comment on above: Completion Note Start: 01-15-2023 End: 01-15-2023 Patient encounter procedure Clement Werner MD Work Phone: Radiation Oncology Comment on above: 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) Start: 01-01-2023 End: 01-01-2023 Patient encounter procedure Vishal Jones MD Work Phone: [facility] Comment on above: Situational depressi on (Primary Dx); SALAS (generalized anxiety disorder); Cognitive impairment, mild, so stated Start: 01-01-2023 Telephone encounter Edmar Liu MD Work Phone: [facility] Comment on above: Appointment Start: 12-30-2022 ambulatory Clement Werner MD Work Phone: Radiation Oncology Comment on above: Patient Education Start: 12-25-2022 Orders Only Clement Werner MD Work Phone: Radiation Oncology Comment on above: 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) Start: 12-24-2022 ambulatory Kaylee Huang RN NURSE O N CALL Comment on above: Anxiety Start: 12-20-2022 End: 12-20-2022 Patient encounter procedure Clement Werner MD Work Phone: Radiation Oncology Comment on above: 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) Start: 12-18-2022 Chart abstracting Vishal gonzalez MD Work Phone: [facility] [place] Comment on above: XRay Report Start: 12-05-2022 Telephone encounter Howie mireles DO Work Phone: Hematology/Oncology Comment on above: Results Start: 12-04-2022 End: 12-04-2022 ambulatory [facility] [facility] Work Phone: Hematology/Oncology Comment on above: Malignant neoplasm o f sigmoid colon (HCC) (Primary Dx) Start: 12-03-2022 End: 12-03-2022 Subsequent hospital visit by physician [facility] Work Phone: [facility] Comment on above: Rectal cancer (HCC) [C20] Start: 11-28-2022 Telephone encounter Edmar Liu MD Work Phone: Neurology Comment on above: Orders Start: 11-27-2022 End: 11-27-2022 Subsequent hospital visit by physician Mri Radio [facility] (I-Stat/1.5t) Work Phone: Radiology Comment on above: Dementia without beh avioral disturbance (HCC) [F03.90] Start: 11-18-2022 Telephone encounter Sylvia Rossi MA [facility] [place] Comment on above: Appointment Start: 11-15-2022 End: 11-15-2022 Patient encounter procedure Vishal Jones MD Work Phone: [facility] [place] Comment on above: Fall, initial encoun ter (Primary Dx) Start: 11-08-2022 Telephone encounter Vishal Jones MD Work Phone: [facility] [place] Comment on above: Letter Start: 11-07-2022 End: 11-07-2022 Subsequent hospital visit by physician Ct Prep [facility] Cat Scan Comment on above: Rectal cancer (HCC) [C20] Start: 11-07-2022 End: 11-07-2022 ambulatory [facility] [facility] Work Phone: Hematology/Oncology Comment on above: Malignant neoplasm o f sigmoid colon (HCC) (Primary Dx); Rectal cancer (HCC); Abnormal CT of the abdomen Start: 11-01-2022 Chart abstracting Vishal gonzalez MD Work Phone: [facility] [place] Comment on above: ER F/U (ER- H ) Start: 10-28-2022 Refill Ashley curtis APRN.RUMPER Work Phone: Hematology/Oncology Comment on above: Refill Request Start: 10-21-2022 End: 10-21-2022 Patient encounter procedure Edmar Liu MD Work Phone: Neurology Comment on above: Right leg pain (Prim kizzy Dx); Lumbar pain; Spinal stenosis, lumbar region with neurogenic claudication; Frequent nocturnal awakening; Sleep apnea-like behavior; Insomnia, unspecified type; Cognitive impairment Start: 10-09-2022 End: 10-09-2022 Patient encounter procedure Vishal Jones MD Work Phone: [facility] [place] Comment on above: Dermatitis (Primary Dx) Start: 10-09-2022 Telephone encounter Ashley nicole APRN.RUMPER Work Phone: Hematology/Oncology Comment on above: Appointment Start: 10-01-2022 Telephone encounter Edmar Liu MD Work Phone: Neurology Comment on above: Patient Update Start: 09-29-2022 Telephone encounter Vishal Jones MD Work Phone: [facility] [place] Comment on above: Results Start: 09-25-2022 End: 09-25-2022 Patient encounter procedure Vishal Jones MD Work Phone: [facility] [place] Comment on above: Essential hypertensi on (Primary Dx); Hyperlipidemia, mixed; Elevated hemoglobin A1c; Coronary artery disease involving [place] coronary artery of [place] heart without angina pectoris; Paroxysmal atrial fibrillation (HCC); Bilateral carotid artery stenosis; Situational depression; Malignant neoplasm of sigmoid colon (HCC); Cognitive impairment, mild, so stated; Essential tremor; 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); Rectal cancer (HCC); Malignant neoplasm of ascending colon (HCC); Malignant neoplasm of colon, unspecified part of colon (HCC); Colostomy in place (HCC); Colostomy care (HCC); 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); BPH with obstruction/lower urinary tract symptoms; Spinal stenosis, lumbar region with neurogenic claudication; Advance directive discussed with patient; Encounter for immunization Start: 09-23-2022 End: 09-23-2022 Patient encounter procedure Maye Gonzalez MD Work Phone: [facility] Comment on above: Ventral hernia witho ut obstruction or gangrene (Primary Dx); Colostomy in place (HCC); 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); Paroxysmal atrial fibrillation (HCC); History of colon cancer; Parastomal hernia without obstruction or gangrene Start: 09-18-2022 End: 09-18-2022 Subsequent hospital visit by physician Mri Radio [facility] (I-Stat/1.5t) Work Phone: Radiology Comment on above: Left without seen Start: 09-13-2022 Telephone encounter Kassandra Alfred APRN.CNP Work Phone: [facility] Comment on above: Results Start: 09-10-2022 Telephone encounter Vishal Jones MD Work Phone: [facility] [place] Comment on above: Patient Update Start: 08-26-2022 Telephone encounter Vishal Jones MD Work Phone: [facility] [place] Comment on above: Patient Supplies Start: 08-21-2022 End: 08-21-2022 Subsequent hospital visit by physician Ct Prep [facility] Cat Scan Comment on above: Rectal cancer (HCC) [C20] Start: 08-21-2022 End: 08-21-2022 ambulatory Lab/[place] [facility] Work Phone: Hematology/Oncology Comment on above: Malignant neoplasm o f sigmoid colon (HCC) Start: 08-19-2022 End: 08-19-2022 Patient encounter procedure Edmar Liu MD Work Phone: Neurology Comment on above: Right leg pain (Prim kizzy Dx); Lumbar pain; Spinal stenosis, lumbar region with neurogenic claudication; Frequent nocturnal awakening; Sleep apnea-like behavior; Insomnia, unspecified type; Cognitive impairment Start: 07-30-2022 Chart abstracting Vishal gonzalez MD Work Phone: [facility] [place] Comment on above: outside PSA Start: 07-29-2022 Refill Vishal manzano MD Work Phone: [facility] Comment on above: Refill Request Start: 07-24-2022 End: 07-24-2022 Patient encounter procedure Vishal Jones MD Work Phone: [facility] Comment on above: Skin abrasion (Prima ry Dx); Dysuria; Acute cystitis with hematuria; Arthritis of right hip; Arthritis, lumbar spine Start: 07-18-2022 End: 07-18-2022 ambulatory [facility] [facility] Work Phone: Hematology/Oncology Comment on above: Malignant neoplasm o f prostate (HCC) (Primary Dx) Start: 07-15-2022 End: 07-15-2022 Patient encounter procedure Rebecca Rossi APRN.[facility] Work Phone: [facility] Comment on above: Fever, unspecified f ever cause (Primary Dx) Start: 06-20-2022 End: 06-20-2022 ambulatory Lab[facility] [facility] Work Phone: Hematology/Oncology Comment on above: Malignant neoplasm o f sigmoid colon (HCC) (Primary Dx) Start: 06-06-2022 Refill Vishal manzano MD Work Phone: [facility] Comment on above: Refill Request Start: 05-15-2022 End: 05-15-2022 Patient encounter procedure Vishal Jones MD Work Phone: [facility] Comment on above: Essential hypertensi on (Primary Dx); Bilateral carotid artery stenosis; Chronic midline low back pain with right-sided sciatica; Falls frequently; Generalized weakness Start: 05-06-2022 End: 05-06-2022 ambulatory Chase Westbrook PT [facility] Comment on above: Falls frequently (Pr imary Dx) Start: 04-30-2022 End: 04-30-2022 ambulatory Chase Westbrook PT [facility] Comment on above: Falls frequently (Pr imary Dx) Start: 04-18-2022 End: 04-18-2022 ambulatory Chase Westbrook PT [facility] Comment on above: Falls frequently (Pr imary Dx) Start: 03-28-2022 End: 03-28-2022 ambulatory Chase Westbrook PT [facility] Comment on above: Falls frequently (Pr imary Dx) Start: 03-26-2022 End: 03-26-2022 Patient encounter procedure Jeanne Stoddard Oneal DO Work Phone: Vascular Surgery Comment on above: Bilateral carotid ar chalo stenosis; Positional lightheadedness Start: 03-25-2022 End: 03-25-2022 Patient encounter procedure Maye Gonzalez MD Work Phone: [facility] Comment on above: History of colon can cer (Primary Dx); Ventral hernia without obstruction or gangrene; 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) Start: 03-21-2022 End: 03-21-2022 Patient encounter procedure Ashley Marshall APRN.RUMPER Work Phone: [facility] Start: 03-21-2022 End: 03-21-2022 ambulatory [facility] [facility] Work Phone: Hematology/Oncology Comment on above: Malignant neoplasm o f sigmoid colon (HCC) (Primary Dx) Rectal cancer (HCC) (Primary Dx) Start: 03-14-2022 Patient encounter procedure Lab[facility] Work Phone: [facility] Work Phone: Start: 03-08-2022 Telephone encounter Vishal Jones MD Work Phone: [facility] Comment on above: Leg Cramps Start: 02-26-2022 End: 02-26-2022 ambulatory [place] [facility] Work Phone: Hematology/Oncology Comment on above: Rectal cancer (HCC) Start: 02-26-2022 End: 02-26-2022 Subsequent hospital visit by physician Ct Prep [facility] Cat Scan Comment on above: Rectal cancer (HCC) [C20] Start: 02-06-2022 Telephone encounter Vishal Jones MD Work Phone: [facility] Comment on above: Patient Question Start: 01-31-2022 Telephone encounter Vishal Jones MD Work Phone: [facility] Comment on above: Results Start: 01-22-2022 Chart abstracting Vishal gonzalez MD [facility] Phone: [facility] Comment on above: outside echo Start: 01-17-2022 ambulatory Vishal manzano MD Work Phone: [facility] [place] Comment on above: Nurse Triage Call (P ain level 9; requesting pain medication for right hip) Start: 01-07-2022 Telephone encounter Vishal Jones MD Work Phone: [facility] Comment on above: Medication Question (anxiety/depression) Start: 01-07-2022 End: 01-07-2022 ambulatory Lab[place] [facility] Work Phone: Hematology/Oncology Comment on above: Malignant neoplasm o f sigmoid colon (HCC) (Primary Dx) Start: 12-14-2021 End: 12-14-2021 Patient encounter procedure Sharda Carl PA-C Work Phone: [facility] Comment on above: Preop examination (P rimary Dx); DDD (degenerative disc disease), lumbar; Coronary artery disease involving [place] coronary artery of [place] heart without angina pectoris; Paroxysmal atrial fibrillation (HCC); Elevated hemoglobin A1c; Hyperlipidemia, mixed Start: 12-14-2021 End: 12-14-2021 Preprocedural examination done Sharda Carl PA-C Work Phone: [facility] Start: 12-10-2021 End: 12-10-2021 ambulatory Lab[place] [facility] Work Phone: Hematology/Oncology Comment on above: Malignant neoplasm o f sigmoid colon (HCC) (Primary Dx) Start: 12-08-2021 End: 12-08-2021 Patient encounter procedure Vishal Jones MD Work Phone: [facility] Comment on above: Situational depressi on (Primary Dx); Malnutrition of moderate degree (HCC) Start: 12-05-2021 Refill Vishal manzano MD Work Phone: [facility] Comment on above: Refill Request Start: 11-30-2020 Patient encounter procedure Vishal Jones MD Work Phone: [facility] Work Phone: Start: 04-02-2011 End: 02-23-2016 Preoperative cardiovascular examination Angélica Roger RN [facility] Work Phone: Procedures Date Procedure Procedure Detail Performing Clinician Start: 01-30-2024 Ct angiography head w/contrast/noncontrast Vishal Jones MD Work Phone: Start: 01-30-2024 Ct angiography neck w/contrast/noncontrast Vishal Jones MD Work Phone: Start: 12-25-2023 Blood count complete auto&auto difrntl wbc Howie Greenberg DO Work Phone: Start: 11-13-2023 Ct thorax w/contrast material Allyson Hernandez DIRECTOR IMMUNOLOGY.RUMPER Work Phone: Start: 11-12-2023 Radiologic exam ches t 2 views Allyson Hernandez DIRECTOR IMMUNOLOGY.RUMPER Work Phone: Start: 11-12-2023 COVID & INFLUENZA A/ B & RSV NAAT, ROUTINE Allyson Hernandez DIRECTOR IMMUNOLOGY.RUMPER Work Phone: Start: 10-29-2023 Radex hip unilateral with pelvis 2-3 views Vishal Jones MD Work Phone: Start: 10-27-2023 Urnls dip stick/tabl et rgnt auto w/o microscopy Ren Chua DIRECTOR IMMUNOLOGY.RUMPER Work Phone: Start: 07-09-2023 Ct abdomen & pelvis w/contrast material Howie Greenberg DO Work Phone: Start: 07-09-2023 Ct thorax w/contrast material Howie Greenberg DO Work Phone: Start: 07-09-2023 Blood count complete auto&auto difrntl wbc Ashley Marshall DIRECTOR IMMUNOLOGY.RUMPER Work Phone: Start: 03-10-2023 Ct abdomen & pelvis w/contrast material Howie Greenberg DO Work Phone: Start: 03-10-2023 Ct thorax w/contrast material Howie Greenberg DO Work Phone: Start: 12-03-[address] attenuation skull base mid-thigh Ashley Marshall DIRECTOR IMMUNOLOGY.RUMPER Work Phone: Start: 11-27-2022 Mri brain brain stem w/o contrast material Edmar Liu MD Work Phone: Start: 11-07-2022 Ct abdomen & pelvis w/contrast material [place] Marshall DIRECTOR IMMUNOLOGY.RUMPER Work Phone: Start: 11-07-2022 Basic metabolic pane l calcium total Ashley Marshall DIRECTOR IMMUNOLOGY.RUMPER Work Phone: Start: 11-07-2022 HEPATIC FUNCTION PNL Da rby Marshall DIRECTOR IMMUNOLOGY.RUMPER Work Phone: Start: 09-25-2022 Pressi COVI D-19 BIVALENT BOOSTER VACCINE, AGE 12+ YR Vishal Jones MD Work Phone: Start: 08-21-2022 Ct abdomen & pelvis w/contrast material [place] Marshall DIRECTOR IMMUNOLOGY.RUMPER Work Phone: Start: 08-21-2022 Ct thorax w/contrast material [place] Marshall DIRECTOR IMMUNOLOGY.RUMPER Work Phone: Start: 08-21-2022 Basic metabolic pane l calcium total [place] Marshall DIRECTOR IMMUNOLOGY.RUMPER Work Phone: Start: 08-21-2022 HEPATIC FUNCTION PNL Da rby Marshall DIRECTOR IMMUNOLOGY.RUMPER Work Phone: Start: 07-29-2022 PSA screening [facility] Provi benjamín Start: 07-24-2022 Urnls dip stick/tabl et rgnt auto w/o microscopy Vishal Jones MD Work Phone: Start: 07-15-2022 Urnls dip stick/tabl et rgnt auto w/o microscopy Rebecca Rossi DIRECTOR IMMUNOLOGY.RUMPER Work Phone: Start: 02-26-2022 Ct abdomen & pelvis w/contrast material Ashley Marshall DIRECTOR IMMUNOLOGY.RUMPER Work Phone: Start: 02-26-2022 Ct thorax w/contrast material Ashley Marshall DIRECTOR IMMUNOLOGY.RUMPER Work Phone: Start: 02-26-2022 Basic metabolic pane l calcium total Ashley Marshall DIRECTOR IMMUNOLOGY.RUMPER Work Phone: Start: 09-25-2017 History of placement of stent for coronary artery disease H/O heart artery stent Vishal Jones MD Work Phone: Start: 08-05-2017 End: 08-05-2017 BOXING PROMOTER Tito Crane POST TENSIONING IRONWORKER Work Phone: Start: 08-05-2017 End: 08-05-2017 Follow Up Appt 6 months Tito Crane POST TENSIONING IRONWORKER Work Phone: Start: 08-05-2017 End: 08-05-2017 Dietary management education, guidance, and counseling Nikolay Villa Start: 08-05-2017 End: 08-05-2017 Documentation of current medications Nikolay Villa Start: 08-05-2017 End: 08-05-2017 BOXING PROMOTER Tito Crane POST TENSIONING IRONWORKER Work Phone: Start: 08-05-2017 End: 08-05-2017 Follow Up Appt 6 months Tito Crane POST TENSIONING IRONWORKER Work Phone: Start: 01-28-2017 End: 01-30-2017 *Hepatic [...] End: 02-01-2017 *Hepatic Function Panel Amrita Osorio POST TENSIONING IRONWORKER Work Phone: Start: 07-25-2016 End: 07-25-2016 BOXING PROMOTER Amrita Osorio POST TENSIONING IRONWORKER Work Phone: Start: 07-25-2016 End: 07-25-2016 Follow Up Appt 6 months Amrita Osorio POST TENSIONING IRONWORKER Work Phone: Start: 07-25-2016 End: 02-01-2017 Lipid 1996 panel - Serum or Plasma Amrita Osorio POST TENSIONING IRONWORKER Work Phone: Start: 07-25-2016 End: 07-25-2016 Documentation of current medications Angélica Roger RN Start: 07-25-2016 End: 07-25-2016 BOXING PROMOTER Amrita Osorio POST TENSIONING IRONWORKER Work Phone: Start: 07-25-2016 End: 07-25-2016 Follow Up Appt 6 months Amrita Osorio POST TENSIONING IRONWORKER Work Phone: Start: 07-25-2016 End: 02-01-2017 Hepatic function 2000 panel - Serum or Plasma Amrita Osorio POST TENSIONING IRONWORKER Work Phone: Start: 07-25-2016 End: 02-01-2017 Lipid 1996 panel - Serum or Plasma Amrita Osorio POST TENSIONING IRONWORKER Work Phone: Start: 03-05-2016 End: 03-05-2016 Follow Up Appt 6 months Frida Son Start: 03-05-2016 End: 03-05-2016 BONNIE Huntley MD Start: 03-05-2016 End: 03-19-2016 Nuclear stress test -Lexiscan Earl Huntley MD Start: 03-05-2016 End: 03-05-2016 Follow Up Appt 6 months Frida Son Start: 03-05-2016 End: 03-05-2016 BONNIE uHntley MD Start: 03-05-2016 End: 03-19-2016 Nuclear stress test -Sumeetiscan Earl Huntley MD Start: 02-20-2016 End: 07-25-2016 *Hepatic Function Panel Connie valle PA-C Work Phone: Start: 02-20-2016 End: 07-25-2016 Lipid 1996 panel - Serum or Plasma Connie Maritn PA-C Work Phone: Start: 02-20-2016 End: 07-25-2016 Hepatic function 2000 panel - Serum or Plasma Connie Martin PA-C Work Phone: Start: 02-20-2016 End: 07-25-2016 Lipid 1996 panel - Serum or Plasma Connie Martin PA-C Work Phone: Start: 08-28-2015 End: 08-28-2015 BOXING PROMOTER Connie Martin PA-C Work Phone: Start: 08-28-2015 [...] Panel Frida Son Start: 03-09-2015 End: 08-17-2015 BOXING PROMOTER Earl Huntley MD Start: 03-09-2015 End: 03-10-2015 [...] Earl Huntley MD Start: 09-06-2014 End: 09-06-2014 BOXING PROMOTER Connie Martin PA-C Work Phone: Start: 09-06-2014 End: 09-06-2014 Ecg routine ecg w/least 12 lds w/i&r Connie Martin PA-C Work Phone: Start: 09-06-2014 End: 09-06-2014 Follow Up Appt 6 months Connie valle PA-C Work Phone: Start: 09-06-2014 End: 09-06-2014 BOXING PROMOTER Connie Martin PA-C Work Phone: Start: 09-06-2014 End: 09-06-2014 Ecg routine ecg w/least 12 lds w/i&r Connie Martin PA-C Work Phone: Start: 09-06-2014 End: 09-06-2014 Follow Up Appt 6 months Connie valle PA-C Work Phone: Start: 03-08-2014 End: 03-08-2014 Follow Up Appt 6 months Frida Son Start: 03-08-2014 End: 03-08-2014 MMFrida Huntley MD Start: 03-08-2014 End: 03-08-2014 Follow Up Appt 6 months Frida Son Start: 03-08-2014 End: 03-08-2014 MMFrida Huntley MD Start: 10-16-2013 End: 02-08-2014 *Hepatic Function Panel Frida Son Start: 10-16-2013 End: 02-08-2014 Lipid 1996 panel - Serum or Plasma Earl Huntley MD Start: 10-16-2013 End: 02-08-2014 Hepatic function 2000 panel - Serum or Plasma Earl Huntley MD Start: 10-16-2013 End: 02-08-2014 Lipid 1996 panel - Serum or Plasma Earl Huntley MD Start: 09-03-2013 End: 09-03-2013 BOXING PROMOTER Connie Martin PA-C Work Phone: Start: 09-03-2013 End: 09-03-2013 Ecg routine ecg w/least 12 lds w/i&r Connie Martin PA-C Work Phone: Start: 09-03-2013 End: 09-03-2013 Follow Up Appt 6 months Connie valle PA-C Work Phone: Start: 09-03-2013 End: 09-03-2013 BOXING PROMOTER Connie Martin PA-C Work Phone: Start: 09-03-2013 [...] months Frida Son Start: 03-09-2013 End: 03-09-2013 MM Earl Huntley MD Start: 03-09-2013 End: 03-09-2013 [...] Detail Author Start: 07-15-2032 Urine microalbumin profile [facility] Start: 02-03-2032 Urine microalbumin profile DTAP,TDAP,TD (4 - Td or Tdap) [facility] Start: 12-02-2029 Urine microalbumin profile DTAP,TDAP,TD (3 - Td or Tdap) [facility] Start: 01-08-2027 Diabetes Screening Diabetes Screening [facility] Start: 12-30-2026 Diabetes Screening Diabetes Screening [facility] Start: 12-24-2026 Diabetes Screening Diabetes Screening [facility] Start: 09-18-2026 Diabetes Screening Diabetes Screening [facility] Start: 07-09-2026 Diabetes Screening Diabetes Screening [facility] Start: 03-27-2026 DIABETES SCREEN DIABETES SCREEN [facility] Start: 03-27-2026 Diabetes Screening Diabetes Screening [facility] Start: 02-25-2026 DIABETES SCREEN DIABETES SCREEN [facility] Start: 11-07-2025 DIABETES SCREEN DIABETES SCREEN [facility] Start: 09-25-2025 DIABETES SCREEN DIABETES SCREEN [facility] Start: 08-21-2025 DIABETES SCREEN DIABETES SCREEN [facility] Start: 03-12-2025 DIABETES SCREEN DIABETES SCREEN [facility] Start: 02-26-2025 DIABETES SCREEN DIABETES SCREEN [facility] Start: 01-30-2025 DIABETES SCREEN DIABETES SCREEN [facility] Start: 01-08-2025 Hepatitis B surface antibody level LDL Cholesterol [facility] Start: 12-14-2024 DIABETES SCREEN DIABETES SCREEN [facility] Start: 11-12-2024 DIABETES SCREEN DIABETES SCREEN [facility] Start: 05-16-2024 Covid-19 Vaccine ( season) Covid-19 Vaccine () [facility] Start: 05-16-2024 Influenza vaccination Influenza Vaccine (#1) [facility] Start: 05-14-2024 End: 05-14-2024 ambulatory 05/14/2024 10:40 AM EDT Visit (SP) Office Hematology/Oncology [address] [place], [place] [id number] Howie Greenberg DO [address] [place] [address] 4 MO OV/LABS SCANNED* DAUGHTER WOULD LIKE TO BE CALLED ON PT PHONE DURING APT Hematology/Oncology Comment on above: 4 MO OV/LABS SCANNED* DAUGHTER WOULD LIK E TO BE CALLED ON PT PHONE DURING APT Start: 05-10-2024 End: 05-10-2024 ambulatory Hematology/Oncology Comment on above: 4 MO OV/LABS COMPLETED AT [facility]* 4 MO OV/LABS SCANNED * DAUGHTER WOULD LIKE TO BE CALLED ON PT PHONE DURING APT Start: 05-04-2024 End: 05-04-2024 ambulatory 05/04/2024 8:30 AM EDT Visit (SP) Office Hematology/Oncology [address] [facility], [place] [id number] Howie Greenberg DO [address] [place], [place] [address] 4 MO OV/LABS 04/30* Hematology/Oncology Comment on above: 4 MO OV/LABS 04/30* Start: 04-30-2024 End: 04-30-2024 ambulatory 04/30/2024 10:00 AM EDT Results Only [facility] [place] [facility] Laboratory [address] [place] [address] CBC/CMP/CEA* [facility] Comment on above: CBC/CMP/CEA* Start: 04-28-2024 End: 04-28-2024 Patient encounter procedure 04/28/2024 11:20 AM EDT Office Visit [facility] [address] [place] [address] Vishal Jones MD [address] [facility] [place] [place] [address] uti acut kidney injury elevated creatinine [facility] Comment on above: uti acut kidney injury eleva dilma creatinine [facility] Start: 04-23-2024 End: 07-23-2024 Carcinoembryonic Ag [Mass/volume] in Serum or Plasma CARCINOEMBRYONIC ANTIGEN Lab Routine Malignant neoplasm of sigmoid colon (HCC) Expected: 04/23/2024, Expires: 07/23/2024 [facility] Comment on above: Expected: 04/23/2024, Expires: Start: 04-23-2024 End: 07-23-2024 CBC W Auto Differential panel - Blood COMPLETE BLOOD COUNT AND DIFFERENTIAL Lab STAT Malignant neoplasm of sigmoid colon (HCC) Expected: 04/23/2024, Expires: 07/23/2024 [facility] Work Phone: Comment on above: Expected: 04/23/2024, Expires: Start: 04-23-2024 End: 07-23-2024 Comprehensive metabolic 2000 panel - Serum or Plasma COMPREHENSIVE METABOLIC PANEL Lab Routine Malignant neoplasm of sigmoid colon (HCC) Expected: 04/23/2024, Expires: 07/23/2024 [facility] Comment on above: Expected: 04/23/2024, Expires: Start: 04-14-2024 End: 04-14-2024 Patient encounter procedure 04/14/2024 1:00 PM EDT Office Visit [facility] [address] [place] [address] Sharda Carl PA-C [address] [place] [address] medicare wellness [facility] Comment on above: medicare wellness Start: 03-27-2024 Hepatitis B surface antibody level LDL CHOLESTEROL [facility] Start: 02-13-2024 Covid-19 Vaccine () Covid-19 Vaccine () [facility] Start: 02-06-2024 End: 02-06-2024 Patient encounter procedure 02/06/2024 10:00 AM EDT Office Visit [facility] [address] [place] [address] Vishal Jones MD [address] [place] [address] 4 week follow up on HTN [facility] Comment on above: 4 week follow up on HTN Start: 01-30-2024 End: 04-30-2024 Basic metabolic 2000 panel - Serum or Plasma BASIC METABOLIC PANEL Lab Routine Renal insufficiency Expected: 01/30/2024, Expires: 04/30/2024 [facility] Work Phone: Comment on above: Expected: 01/30/2024, Expires: Start: 01-30-2024 End: 04-30-2024 Calcium [Mass/volume] in Serum or Plasma CALCIUM, TOTAL Lab Routine Hypercalcemia Expected: 01/30/2024, Expires: 04/30/2024 [facility] Work Phone: Comment on above: Expected: 01/30/2024, Expires: Start: 01-30-2024 End: 04-30-2024 Parathyrin.intact [Mass/volume] in Serum or Plasma PTH INTACT Lab Routine Hypercalcemia Expected: 01/30/2024, Expires: 04/30/2024 [facility] Work Phone: Comment on above: Expected: 01/30/2024, Expires: Start: 01-30-2024 End: 01-30-2024 Patient encounter procedure Cat Scan Comment on above: Vasculopathy [I99.9] Start: 01-09-2024 End: 01-09-2024 Patient encounter procedure 01/09/2024 10:20 AM EDT [facility] [address] [facility] [place] [place] [address] Vishal Jones MD [address] [place], [place] [address] Hospital Follow up [facility] D/C 01/06/2024 [facility] Comment on above: Hospital Follow up [facility] D/C 01/06/2024 Start: 11-14-2023 End: 02-13-2024 Carcinoembryonic Ag [Mass/volume] in Serum or Plasma CEA BLD Lab Routine Rectal cancer (HCC) Expected: 11/14/2023, Expires: 02/13/2024 [facility] Work Phone: Comment on above: Expected: 11/14/2023, Expires: Start: 11-14-2023 End: 02-13-2024 CBC W Auto Differential panel - Blood CBC + DIFF Lab STAT Rectal cancer (HCC) Expected: 11/14/2023, Expires: 02/13/2024 [facility] Work Phone: Comment on above: Expected: 11/14/2023, Expires: Start: 11-14-2023 End: 02-13-2024 Comprehensive metabolic 2000 panel - Serum or Plasma COMP METABOLIC PANEL Lab STAT Rectal cancer (HCC) Expected: 11/14/2023, Expires: 02/13/2024 [facility] Work Phone: Comment on above: Expected: 11/14/2023, Expires: Start: 09-25-2023 Hepatitis B surface antibody level LDL CHOLESTEROL [facility] Start: 05-16-2023 Covid-19 Vaccine () Covid-19 Vaccine () [facility] Start: 05-16-2023 Influenza vaccination [facility] Start: 03-27-2023 End: 05-27-2023 LIPID PANEL, NONFASTING [facility] Work Phone: Comment on above: Expected: 03/27/2023, Expires: Start: 03-12-2023 Hepatitis B surface antibody level LDL CHOLESTEROL [facility] Start: 01-23-2023 COVID-19 VACCINE (5 - Pfizer series) COVID-19 VACCINE (5 - Pfizer series) [facility] Start: 12-14-2022 Hepatitis B surface antibody level LDL CHOLESTEROL [facility] Start: 11-09-2022 End: 01-09-2023 CREATININE BLD CREATININE BLD Lab STAT Rectal cancer (HCC) Abnormal CT of the abdomen Expected: 11/09/2022 (Approximate), Expires: 01/09/2023 [facility] Work Phone: Comment on above: Expected: 11/09/2022 (Approximate), Expi res: 01/09/2023 Start: 09-29-2022 End: 11-29-2022 POTASSIUM BLD POTASSIUM BLD Lab Routine Hyperkalemia Expected: 09/29/2022, Expires: 11/29/2022 [facility] Work Phone: Comment on above: Expected: 09/29/2022, Expires: 3 Start: 09-15-2022 ADVANCE DIRECTIVE DISCUSSION ADVANCE DIRECTIVE DISCUSSION [facility] Start: 05-16-2022 Influenza vaccination INFLUENZA (#1) [facility] Start: 11-30-2021 Hepatitis B surface antibody level LDL CHOLESTEROL [facility] Start: 11-15-2021 COVID-19 VACCINE (4 - Booster for Pfizer series) COVID-19 VACCINE (4 - Booster for Pfizer series) [facility] Start: 09-15-2021 ADVANCE DIRECTIVE DISCUSSION ADVANCE DIRECTIVE DISCUSSION [facility] Start: 09-12-2021 COVID-19 VACCINE (4 - Booster for Pfizer series) COVID-19 VACCINE (4 - Booster for Pfizer series) [facility] Start: 01-27-2018 End: 01-27-2018 Appointment Appointment [facility] Work Phone: Start: 08-05-2017 End: 08-05-2017 Appointment Appointment [facility] Work Phone: Start: 08-05-2017 End: 08-05-2017 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 [facility] Work Phone: Start: 08-05-2017 End: 08-05-2017 Follow Up Appt 6 months Follow Up Appt 6 months [facility] Work Phone: Start: 08-05-2017 End: 08-05-2017 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 [facility] Work Phone: Start: 08-05-2017 End: 08-05-2017 Follow Up Appt 6 months Follow Up Appt 6 months [facility] Work Phone: Start: 08-04-2017 End: 02-01-2017 *Hepatic Function Panel *Hepatic Function Panel [facility] Work Phone: Start: 08-04-2017 End: 02-01-2017 Lipid panel [AGGREGATE] *Lipid Profile CC PCP [facility] Work Phone: Start: 08-04-2017 End: 02-01-2017 Hepatic function 2000 panel - Serum or Plasma *Hepatic Function Panel [facility] Work Phone: Start: 08-04-2017 End: 02-01-2017 Lipid 1996 panel - Serum or Plasma *Lipid Profile CC PCP [facility] Work Phone: Start: 07-31-2017 End: 07-31-2017 Patient encounter procedure Appointment [facility] Work Phone: Start: 01-28-2017 End: 01-30-2017 *Hepatic Function Panel *Hepatic Function Panel [facility] Work Phone: Start: 01-28-2017 End: 01-28-2017 Follow Up Appt 6 months Follow Up Appt 6 months [facility] Work Phone: Start: 01-28-2017 End: 01-30-2017 Lipid panel [AGGREGATE] *Lipid Profile CC PCP [facility] Work Phone: Start: 01-28-2017 End: 01-28-2017 MMM MMM [facility] Work Phone: Start: 01-28-2017 End: 01-28-2017 Patient encounter procedure Appointment [facility] Work Phone: Start: 01-28-2017 End: 01-28-2017 Follow Up Appt 6 months Follow Up Appt 6 months [facility] Work Phone: Start: 01-28-2017 End: 01-30-2017 Hepatic function 2000 panel - Serum or Plasma *Hepatic Function Panel [facility] Work Phone: Start: 01-28-2017 End: 01-30-2017 Lipid 1996 panel - Serum or Plasma *Lipid Profile CC PCP [facility] Work Phone: Start: 01-28-2017 End: 01-28-2017 MM MM [facility] Work Phone: Start: 07-25-2016 End: 02-01-2017 *Hepatic Function Panel *Hepatic Function Panel [facility] Work Phone: Start: 07-25-2016 End: 07-25-2016 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 [facility] Work Phone: Start: 07-25-2016 End: 07-25-2016 Follow Up Appt 6 months Follow Up Appt 6 months [facility] Work Phone: Start: 07-25-2016 End: 02-01-2017 Lipid panel [AGGREGATE] *Lipid Profile CC PCP [facility] Work Phone: Start: 07-25-2016 End: 07-25-2016 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 [facility] Work Phone: Start: 07-25-2016 End: 07-25-2016 Follow Up Appt 6 months Follow Up Appt 6 months [facility] Work Phone: Start: 07-25-2016 End: 02-01-2017 Hepatic function 2000 panel - Serum or Plasma *Hepatic Function Panel [facility] Work Phone: Start: 07-25-2016 End: 02-01-2017 Lipid 1996 panel - Serum or Plasma *Lipid Profile CC PCP [facility] Work Phone: Start: 03-05-2016 End: 03-05-2016 Follow Up Appt 6 months Follow Up Appt 6 months [facility] Work Phone: Start: 03-05-2016 End: 03-05-2016 MMM MMM [facility] Work Phone: Start: 03-05-2016 End: 03-05-2016 Nuclear stress test -Lexiscan Nuclear stress test -Lexiscan [facility] Work Phone: Start: 03-05-2016 End: 03-05-2016 Follow Up Appt 6 months Follow Up Appt 6 months [facility] Work Phone: Start: 03-05-2016 End: 03-05-2016 MMM MMM [facility] Work Phone: Start: 03-05-2016 End: 03-05-2016 Nuclear stress test -Lexiscan Nuclear stress test -Lexiscan [facility] Work Phone: Start: 02-20-2016 End: 07-25-2016 *Hepatic Function Panel *Hepatic Function Panel [facility] Work Phone: Start: 02-20-2016 End: 07-25-2016 Lipid panel [AGGREGATE] *Lipid Profile CC PCP [facility] Work Phone: Start: 02-20-2016 End: 07-25-2016 Hepatic function 2000 panel - Serum or Plasma *Hepatic Function Panel [facility] Work Phone: Start: 02-20-2016 End: 07-25-2016 Lipid 1996 panel - Serum or Plasma *Lipid Profile CC PCP [facility] Work Phone: Start: 08-28-2015 End: 08-28-2015 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 [facility] Work Phone: Start: 08-28-2015 End: 08-28-2015 Follow Up Appt 6 months Follow Up Appt 6 months [facility] Work Phone: Start: 08-28-2015 End: 08-28-2015 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 [facility] Work Phone: Start: 08-28-2015 End: 08-28-2015 Follow Up Appt 6 months Follow Up Appt 6 months [facility] Work Phone: Start: 08-21-2015 End: 08-21-2015 *Hepatic Function Panel *Hepatic Function Panel [facility] Work Phone: Start: 08-21-2015 End: 08-21-2015 Lipid panel [AGGREGATE] *Lipid Profile CC PCP [facility] Work Phone: Start: 08-21-2015 End: 08-21-2015 Hepatic function 2000 panel - Serum or Plasma *Hepatic Function Panel [facility] Work Phone: Start: 08-21-2015 End: 08-21-2015 Lipid 1996 panel - Serum or Plasma *Lipid Profile CC PCP [facility] Work Phone: Start: 03-09-2015 End: 03-10-2015 *Hepatic Function Panel *Hepatic Function Panel [facility] Work Phone: Start: 03-09-2015 End: 08-17-2015 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 [facility] Work Phone: Start: 03-09-2015 End: 08-17-2015 Follow Up Appt 1 year Follow Up Appt 1 year [facility] Work Phone: Start: 03-09-2015 End: 03-10-2015 Lipid panel [AGGREGATE] *Lipid Profile CC PCP [facility] Work Phone: Start: 03-09-2015 End: 08-17-2015 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 [facility] Work Phone: Start: 03-09-2015 End: 08-17-2015 Follow Up Appt 1 year Follow Up Appt 1 year [facility] Work Phone: Start: 03-09-2015 End: 03-10-2015 Hepatic function 2000 panel - Serum or Plasma *Hepatic Function Panel [facility] Work Phone: Start: 03-09-2015 End: 03-10-2015 Lipid 1996 panel - Serum or Plasma *Lipid Profile CC PCP [facility] Work Phone: Start: 09-06-2014 End: 09-06-2014 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 [facility] Work Phone: Start: 09-06-2014 End: 09-06-2014 Ecg routine ecg w/least 12 lds w/i&r EKG (In office) [facility] Work Phone: Start: 09-06-2014 End: 09-06-2014 Follow Up Appt 6 months Follow Up Appt 6 months [facility] Work Phone: Start: 09-06-2014 End: 09-06-2014 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 [facility] Work Phone: Start: 09-06-2014 End: 09-06-2014 Ecg routine ecg w/least 12 lds w/i&r EKG (In office) [facility] Work Phone: Start: 09-06-2014 End: 09-06-2014 Follow Up Appt 6 months Follow Up Appt 6 months [facility] Work Phone: Start: 03-08-2014 End: 03-08-2014 Follow Up Appt 6 months Follow Up Appt 6 months [facility] Work Phone: Start: 03-08-2014 End: 03-08-2014 MMM MMM [facility] Work Phone: Start: 03-08-2014 End: 03-08-2014 Follow Up Appt 6 months Follow Up Appt 6 months [facility] Work Phone: Start: 03-08-2014 End: 03-08-2014 MMM MMM [facility] Work Phone: Start: 10-16-2013 End: 02-08-2014 *Hepatic Function Panel *Hepatic Function Panel [facility] Work Phone: Start: 10-16-2013 End: 02-08-2014 Lipid panel [AGGREGATE] *Lipid Profile CC PCP [facility] Work Phone: Start: 10-16-2013 End: 02-08-2014 Hepatic function 2000 panel - Serum or Plasma *Hepatic Function Panel [facility] Work Phone: Start: 10-16-2013 End: 02-08-2014 Lipid 1996 panel - Serum or Plasma *Lipid Profile CC PCP [facility] Work Phone: Start: 09-03-2013 End: 09-03-2013 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 [facility] Work Phone: Start: 09-03-2013 End: 09-03-2013 Ecg routine ecg w/least 12 lds w/i&r EKG (In office) [facility] Work Phone: Start: 09-03-2013 End: 09-03-2013 Follow Up Appt 6 months Follow Up Appt 6 months [facility] Work Phone: Start: 09-03-2013 End: 09-03-2013 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 [facility] Work Phone: Start: 09-03-2013 End: 09-03-2013 Ecg routine ecg w/least 12 lds w/i&r EKG (In office) [facility] Work Phone: Start: 09-03-2013 End: 09-03-2013 Follow Up Appt 6 months Follow Up Appt 6 months [facility] Work Phone: Start: 07-16-2013 End: 08-24-2013 *Hepatic Function Panel *Hepatic Function Panel [facility] Work Phone: Start: 07-16-2013 End: 08-24-2013 Lipid panel [AGGREGATE] *Lipid Profile CC PCP [facility] Work Phone: Start: 07-16-2013 End: 08-24-2013 Hepatic function 2000 panel - Serum or Plasma *Hepatic Function Panel [facility] Work Phone: Start: 07-16-2013 End: 08-24-2013 Lipid 1996 panel - Serum or Plasma *Lipid Profile CC PCP [facility] Work Phone: Start: 03-09-2013 End: 03-09-2013 Follow Up Appt 6 months Follow Up Appt 6 months [facility] Work Phone: Start: 03-09-2013 End: 03-09-2013 MMM MMM [facility] Work Phone: Start: 03-09-2013 End: 03-09-2013 Follow Up Appt 6 months Follow Up Appt 6 months [facility] Work Phone: Start: 03-09-2013 End: 03-09-2013 MMM MMM [facility] Work Phone: Start: 12-14-2012 End: 02-05-2013 *Hepatic Function Panel *Hepatic Function Panel [facility] Work Phone: Start: 12-14-2012 End: 02-05-2013 Lipid panel [AGGREGATE] *Lipid Profile [facility] Work Phone: Start: 12-14-2012 End: 02-05-2013 Hepatic function 2000 panel - Serum or Plasma *Hepatic Function Panel [facility] Work Phone: Start: 12-14-2012 End: 02-05-2013 Lipid 1996 panel - Serum or Plasma *Lipid Profile [facility] Work Phone: Start: 07-16-2012 End: 02-05-2013 *Hepatic Function Panel *Hepatic Function Panel [facility] Work Phone: Start: 07-16-2012 End: 02-05-2013 Lipid panel [AGGREGATE] *Lipid Profile [facility] Work Phone: Start: 07-16-2012 End: 02-05-2013 Hepatic function 2000 panel - Serum or Plasma *Hepatic Function Panel [facility] Work Phone: Start: 07-16-2012 End: 02-05-2013 Lipid 1996 panel - Serum or Plasma *Lipid Profile [facility] Work Phone: Start: 07-08-2012 End: 07-08-2012 Follow Up Appt 6 months Follow Up Appt 6 months [facility] Work Phone: Start: 07-08-2012 End: 07-08-2012 Nuclear stress test -adenosine Nuclear stress test -adenosine [facility] Work Phone: Start: 07-08-2012 End: 07-08-2012 Follow Up Appt 6 months Follow Up Appt 6 months [facility] Work Phone: Start: 07-08-2012 End: 07-08-2012 Nuclear stress test -adenosine Nuclear stress test -adenosine [facility] Work Phone: Start: 01-14-2012 End: 2012 *Hepatic Function Panel *Hepatic Function Panel [facility] Work Phone: Start: 01-14-2012 End: 01-14-2012 Follow Up Appt 6 months Follow Up Appt 6 months [facility] Work Phone: Start: 01-14-2012 End: 2012 Lipid panel [AGGREGATE] *Lipid Profile [facility] Work Phone: Start: 01-14-2012 End: 01-14-2012 Follow Up Appt 6 months Follow Up Appt 6 months [facility] Work Phone: Start: 01-14-2012 End: 2012 Hepatic function 2000 panel - Serum or Plasma *Hepatic Function Panel [facility] Work Phone: Start: 01-14-2012 End: 2012 Lipid 1996 panel - Serum or Plasma *Lipid Profile [facility] Work Phone: Start: 1999 RSV Vaccine (1 - 1-dose 60+ series) RSV Vaccine (1 - 1-dose 60+ series) [facility] Bacteria identified in Urine by Culture URINE CULTURE Microbiology Routine Acute cystitis with hematuria 07/24/2022 3:51 PM EST [facility] Work Phone: Bacteria identified in Urine by Culture URINE CULTURE Microbiology Routine Dysuria 10/27/2023 3:00 PM EST [facility] Work Phone: Carcinoembryonic Ag [Mass/volume] in Serum or Plasma CEA BLD Lab Routine Rectal cancer (HCC) 02/26/2022 9:43 AM EDT [facility] Work Phone: Carcinoembryonic Ag [Mass/volume] in Serum or Plasma CEA BLD Lab Routine Malignant neoplasm of sigmoid colon (HCC) 08/21/2022 10:15 AM [facility] Work Phone: Carcinoembryonic Ag [Mass/volume] in Serum or Plasma CEA BLD Lab Routine Rectal cancer (HCC) 11/07/2022 9:48 AM [facility] Work Phone: Carcinoembryonic Ag [Mass/volume] in Serum or Plasma CEA BLD Lab Routine Rectal cancer (HCC) 07/09/2023 10:21 AM [facility] Work Phone: Carcinoembryonic Ag [Mass/volume] in Serum or Plasma CEA BLD Lab Routine Rectal cancer (HCC) 12/25/2023 9:43 AM [facility] Work Phone: COVID & INFLUENZA A/ B & RSV NAAT, ROUTINE COVID & INFLUENZA A/B & RSV NAAT, ROUTINE Microbiology Routine Acute cough 05/29/2023 3:07 PM [facility] Work Phone: End: 04-20-2023 Ct abdomen & pelvis w/contrast material CT ABD/PEL W IVCON Radiology Routine Rectal cancer (HCC) 1 Occurrences starting 03/21/2022 until 04/20/2023 [facility] Work Phone: Comment on above: 1 Occurrences starting 03/21/2022 until 04/20/2023 End: 11-08-2023 Ct abdomen & pelvis w/contrast material CT ABD/PEL W IVCON Radiology Routine Rectal cancer (HCC) Abnormal CT of the abdomen 1 Occurrences starting 10/09/2022 until 11/08/2023 [facility] Work Phone: Comment on above: 1 Occurrences starting 10/09/2022 until 11/08/2023 End: 04-30-2024 Ct abdomen & pelvis w/contrast material CT ABD/PEL W IVCON Radiology Routine Malignant neoplasm of rectum (HCC) 1 Occurrences starting 04/01/2023 until 04/30/2024 [facility] Work Phone: Comment on above: 1 Occurrences starting 04/01/2023 until 04/30/2024 End: 01-23-2025 CT Abdomen and Pelvis WO contrast CT ABD/PEL WO IVCON Radiology Routine Malignant neoplasm of colon, unspecified part of colon (HCC) 1 Occurrences starting 12/25/2023 until 01/23/2025 [facility] Work Phone: Comment on above: 1 Occurrences starting 12/25/2023 until 01/23/2025 CT Abdomen and Pelvi s WO contrast CT ABD/PEL WO IVCON Radiology Routine Malignant neoplasm of colon, unspecified part of colon (HCC) 12/25/2023 11:41 AM EDT [facility] Work Phone: End: 04-30-2024 CT CHEST W IVCON CT CHEST W IVCON Radiology Routine Malignant neoplasm of rectum (HCC) 1 Occurrences starting 04/01/2023 until 04/30/2024 [facility] Work Phone: Comment on above: 1 Occurrences starting 04/01/2023 until 04/30/2024 End: 01-23-2025 CT Chest WO contrast CT CHEST WO IVCON Radiology Routine Malignant neoplasm of colon, unspecified part of colon (HCC) 1 Occurrences starting 12/25/2023 until 01/23/2025 [facility] Work Phone: Comment on above: 1 Occurrences starting 12/25/2023 until 01/23/2025 CT Chest WO contrast CT CHEST WO IVCON Radiology Routine Malignant neoplasm of colon, unspecified part of colon (HCC) 12/25/2023 11:41 AM EDT [facility] Work Phone: CT SIM PLANNING RADI ATION ONCOLOGY CT SIM PLANNING RADIATION ONCOLOGY Radiology Routine 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) Ordered: 12/30/2022 [facility] Work Phone: Comment on above: Ordered: 12/30/2022 End: 04-20-2023 Ct thorax w/contrast material CT CHEST W IVCON Radiology Routine Rectal cancer (HCC) 1 Occurrences starting 03/21/2022 until 04/20/2023 [facility] Work Phone: Comment on above: 1 Occurrences starting 03/21/2022 until 04/20/2023 Hepatic function 200 0 panel - Serum or Plasma HEPATIC FUNCTION PNL Lab Routine Malignant neoplasm of sigmoid colon (HCC) 08/21/2022 10:15 AM [facility] Work Phone: Hepatic function 200 0 panel - Serum or Plasma HEPATIC FUNCTION PNL Lab Routine Rectal cancer (HCC) 11/07/2022 9:48 AM [facility] Work Phone: MR Unspecified body region 3D post processing MRI 3D POST PROCESSING Radiology Routine Dementia, unspecified dementia severity, unspecified dementia type, unspecified whether behavioral, psychotic, or mood disturbance or anxiety (HCC) Alcohol dependence with uncomplicated intoxication (HCC) 10/30/2023 4:22 PM [facility] Work Phone: End: 09-24-2024 MRI 3D POST PROCESSING MRI 3D POST PROCESSING Radiology Routine Dementia, unspecified dementia severity, unspecified dementia type, unspecified whether behavioral, psychotic, or mood disturbance or anxiety (HCC) Alcohol dependence with uncomplicated intoxication (HCC) 1 Occurrences starting 08/26/2023 until 09/24/2024 [facility] Work Phone: Comment on above: 1 Occurrences starting 08/26/2023 until 09/24/2024 End: 09-24-2024 MRI BRAIN W QUANT WO IVCON MRI BRAIN W QUANT WO IVCON Radiology Routine Dementia, unspecified dementia severity, unspecified dementia type, unspecified whether behavioral, psychotic, or mood disturbance or anxiety (HCC) Alcohol dependence with uncomplicated intoxication (HCC) 1 Occurrences starting 08/26/2023 until 09/24/2024 [facility] Work Phone: Comment on above: 1 Occurrences starting 08/26/2023 until 09/24/2024 Patient Education [facility] Work Phone: PT PLAN OF CARE CERTIFICATION PT PLAN OF CARE CERTIFICATION Procedures Routine Falls frequently Ordered: 04/30/2022 [facility] Work Phone: Comment on above: Ordered: 04/30/2022 ROUTINE FLU A/B + RSV ROUTINE FL U A/B + RSV Lab Routine Acute cough 05/29/2023 3:07 PM EDT [facility] Work Phone: SARS-CoV-2 (COVID-19 ) RNA [Presence] in Respiratory specimen by RENETTA with probe detection COVID NAAT, UPPER RESPIRATORY, ROUTINE Microbiology Routine Acute cough 05/29/2023 3:07 PM EDT [facility] Work Phone: End: 03-26-2023 US CAROTID [facility]ER[facility] CAROTID [facility] Vascular Lab Routine Bilateral carotid artery stenosis 1 Occurrences starting 03/26/2022 until 03/26/2023 [facility] Work Phone: Comment on above: 1 Occurrences starting 03/26/2022 until 03/26/2023 End: 11-26-2024 XR Pelvis and Hip - right AP and Lateral frog XR HIP GENERAL 3V PELV/AP/LAT RIGHT Radiology Routine Pain of right hip 1 Occurrences starting 10/28/2023 until 11/26/2024 [facility] Work Phone: Comment on above: 1 Occurrences starting 10/28/2023 until 11/26/2024 [facility] Immunizations Immunization Date Immunization Notes Care Provider Yulia zhong 12-29-2023 pneumococcal conjuga te (PCV20) vaccine, 20 valent (PREVNAR 20) Sylvia Rossi MA [facility] 12-29-2023 respiratory syncytia l virus (RSV) vaccine, adjuvanted (AREXVY) Sylvia Rossi MA [facility] 10-15-2023 COVID-19 vaccine, ag e 12+ yr, season (PFIZER-BIONTECH) Ren Chua APRN.RUMPER Work Phone: [facility] 10-15-2023 influenza (HD-IIV4) vaccine, age 65+ yr, high dose, quadrivalent, PF (FLUZONE HIGH-DOSE) Ren Chua APRN.RUMPER Work Phone: [facility] 10-15-2023 influenza virus vacc ine, unspecified formulation Vihsal Jones MD Work Phone: [facility] 09-25-2022 COVID-19 booster vaccine, age 12+ yr, bivalent (PFIZER-BIONTECH) Vishal Jones MD Work Phone: [facility] 07-15-2022 tetanus toxoid, redu justin diphtheria toxoid, and acellular pertussis vaccine, adsorbed Vishal Jones MD Work Phone: [facility] Work Phone: 06-14-2022 influenza (aIIV4) vaccine, age 65+ yr, quadrivalent, PF (FLUAD QUAD) Howie Greenberg DO Work Phone: [facility] 06-14-2022 influenza, high dose seasonal, preservative-free [facility] Work Phone: [facility] 06-14-2022 influenza virus vacc ine, unspecified formulation Kassandra Grady APRN.RUMPER Work Phone: [facility] 02-02-2022 tetanus toxoid, redu justin diphtheria toxoid, and acellular pertussis vaccine, adsorbed [facility] Work Phone: [facility] 07-18-2021 COVID-19 vaccine, ag e 12+ yr, season (PFIZER-BIONTECH) Howie Jesusi DO Work Phone: [facility] 07-18-2021 influenza, high dose seasonal, preservative-free Howie Jesusi DO Work Phone: [facility] 07-18-2021 influenza, high-dose , quadrivalent vaccine (FLUZONE HIGH DOSE QUADRIVALENT) Vishal Jones MD Work Phone: [facility] 12-12-2020 COVID-19 vaccine, ag e 12+ yr, season (PFIZER-BIONTECH) Howie Jesusi DO Work Phone: [facility] 11-21-2020 COVID-19 vaccine, ag e 12+ yr (PFIZER-BIONTECH - PURPLE TOP) Vishal Jones MD Work Phone: [facility] Work Phone: 11-21-2020 COVID-19 vaccine, ag e 12+ yr, season (PFIZER-BIONTECH) Howie Jesusi DO Work Phone: [facility] 06-20-2020 zoster vaccine recombinant Vishal Jones MD Work Phone: [facility] 05-27-2020 influenza, high dose seasonal, preservative-free Vishal Jones MD Work Phone: [facility] 05-27-2020 influenza, injectabl e, quadrivalent, preservative free Vishal Jones MD Work Phone: [facility] 05-27-2020 influenza, seasonal, injectable Howie Greenberg DO Work Phone: [facility] 04-07-2020 zoster vaccine recombinant Vishal Jones MD Work Phone: [facility] 12-03-2019 hepatitis A vaccine, adult dosage Vishal Jones MD Work Phone: [facility] 12-03-2019 tetanus toxoid, redu justin diphtheria toxoid, and acellular pertussis vaccine, adsorbed Vishal Jones MD Work Phone: [facility] 08-17-2019 pneumococcal polysaccharide vaccine, 23 valent Vishal Jones MD Work Phone: [facility] 06-15-2019 influenza, high dose seasonal, preservative-free Vishal Jones MD Work Phone: [facility] 07-30-2018 pneumococcal conjuga te vaccine, 13 valent Vishal Jones MD Work Phone: [facility] 06-30-2018 influenza, high dose seasonal, preservative-free Vishal Jones MD Work Phone: [facility] 06-15-2018 influenza, high dose seasonal, preservative-free Howie Greenberg Work Phone: [facility] 05-29-2017 diphtheria, tetanus toxoids and acellular pertussis vaccine Vishal Jones MD Work Phone: [facility] 05-29-2017 influenza, seasonal, injectable, preservative free Vishal Jones MD Work Phone: [facility] 04-28-2016 influenza, high dose seasonal, preservative-free Vishal Jones MD Work Phone: [facility] 04-28-2016 zoster vaccine, live Vishal Jones MD Work Phone: [facility] Payers Date Payer Category Payer Medicare MEDICARE MEDICAR E A AND B [id number] 2004-Present [phone] [address] [address] [place] [address] Medicare [id number] 2004 Medicare [id number] 2004 Medicare [id number] 2004 Medicare [id number] 1997 Unknown [employer] FEP PPO [id number] 1997-Present [phone] [address] [place] [address] PPO [id number] 1997 Unknown [employer] FEP PPO [id number] 1997-Present [phone] [address] [place] [address] PPO [id number] 1997 Unknown [id number] Social History Date Type Detail Facility Start: 07-24-2017 End: 05-15-2022 Tobacco smoking status NHIS Never smoked tobacco [facility] Start: 07-24-2017 End: 05-15-2022 Tobacco use and exposure User of smokeless tobacco [facility] History of tobacco use Chews Tobacco [facility] Start: 11-14-2021 End: 11-12-2023 Alcohol intake Current drinker of alcohol (finding) [facility] Start: 11-14-2021 End: 01-15-2023 Alcohol intake [facility] Work Phone: Start: 07-31-2020 History SDOH Alcohol Frequency 4 [facility] Start: 08-08-2020 History SDOH Financial 5 [facility] Start: 08-08-2020 History SDOH Food Worry 1 [facility] Start: 08-08-2020 History SDOH Transport Med 2 [facility] Start: 1940 Sex Assigned At Not on file [facility] Start: 11-16-2021 End: 08-19-2022 Exposure to SARS-CoV-2 (event) Not sure [facility] Start: 02-25-2023 Alcohol Comment OCC [facility] Start: 07-31-2020 End: 01-15-2023 Alcohol Use Disorder Identification Test - Consumption [AUDIT-C] [facility] Work Phone: How often to you hav e a drink containing alcohol? 2-3 time sa week [facility] Work Phone: Average Number of Drinks Not on file [facility] Work Phone: (I/We) worried sid er (my/our) food would run out before (I/we) got money to buy more. Never true [facility] Work Phone: Start: 05-07-2023 Alcohol Comment drinks two shots a night [facility] Start: 1940 Sex Assigned At Male [facility] Start: 08-24-2023 Gender identity Identifies as male gender (finding) [facility] Start: 08-24-2023 Sexual orientation Heterosexual (finding) [facility] Clinical Notes 01-28-2017 to 05-11-2024 Telephone Encounter - Shreya Ramires LPN - 05/11/2024 8:25 AM EDTTelephone Encounter - Shreya Ramires LPN - 05/11/2024 8:25 AM EDTTelephone Encounter - Howie Greenberg DO - 05/10/2024 5:24 PM EDT Note Date & Type Note Facility 05-11-2024 Telephone encounter Note Spoke with Lacey (Daughter), informed his CEA really came down nicely after he got radiation in January 2023. It is now normal. So likelihood of recurrent cancer is very low. Additionally if he is having such difficulty from a medical/psychiatric standpoint he would not be a candidate for any further type of chemotherapy treatment. So, she can keep us posted on how he is doing but we do not want to schedule any follow-up here in the office for the time being. Daughter voiced understanding. Shreya Ramires LPN [facility] 05-11-2024 Miscellaneous Notes Spoke with Lacey (Daughter), informed his CEA really came down nicely after he got radiation in January 2023. It is now normal. So likelihood of recurrent cancer is very low. Additionally if he is having such difficulty from a medical/psychiatric standpoint he would not be a candidate for any further type of chemotherapy treatment. So, she can keep us posted on how he is doing but we do not want to schedule any follow-up here in the office for the time being. Daughter voiced understanding. Shreya Ramires LPN Well, his CEA really came down nicely after he got radiation in January 2023. It is now normal. So likelihood of recurrent cancer is very low. Additionally if he is having such difficulty from a medical/psychiatric standpoint he would not be a candidate for any further type of chemotherapy treatment. So, she can keep us posted on how he is doing but we do not want to schedule any follow-up here in the office for the time being. Howie Greenberg DO Spoke with daughter lacey, Pt. Is in [facility]. They are having issues with transportation for OV, Daughter states if she brings him she will not be able to get him to go back. Had recent labs (scanned into chart) . Is there anything of any concern? Daughter states pt. Is extremely confused and hallucinating. Wondering if he needs to have this 4 month F/U? Shreya Ramires LPN Lacey, daughter called asking if Dr. Greenberg would call her for appointment today. [facility] is not transporting today and she states patient has dementia and has been hallucinating. documented in this encounter [facility] 05-10-2024 Telephone encounter Note Well, his CEA really came down nicely after he got radiation in January 2023. It is now normal. So likelihood of recurrent cancer is very low. Additionally if he is having such difficulty from a medical/psychiatric standpoint he would not be a candidate for any further type of chemotherapy treatment. So, she can keep us posted on how he is doing but we do not want to schedule any follow-up here in the office for the time being. Howie Greenberg DO [facility] Work Phone: 05-10-2024 Telephone encounter Note Spoke with daughter lacey, Pt. Is in [facility]. They are having issues with transportation for OV, Daughter states if she brings him she will not be able to get him to go back. Had recent labs (scanned into chart) . Is there anything of any concern? Daughter states pt. Is extremely confused and hallucinating. Wondering if he needs to have this 4 month F/U? Shreya Ramires LPN [facility] 05-10-2024 Telephone encounter Note Lacey, daughter called asking if Dr. Greenberg would call her for appointment today. [facility] is not transporting today and she states patient has dementia and has been hallucinating. [facility] Work Phone: 05-07-2024 Telephone encounter Note Noted. [facility] 05-07-2024 Miscellaneous Notes Noted. Patient daughter Lacey calling she went to the hospital for special care and was given 2 packets of forms for emergency guardian ship different than what she was told to get off the website. She is looking at them and completing her portion and will bring them in. She wanted to apologize since the others were not the correct ones. documented in this encounter [facility] 05-07-2024 Telephone encounter Note Patient daughter Lacey calling she went to the hospital for special care and was given 2 packets of forms for emergency guardian ship different than what she was told to get off the website. She is looking at them and completing her portion and will bring them in. She wanted to apologize since the others were not the correct ones. [facility] 05-06-2024 Telephone encounter Note Spoke with daughter. Reviewed what had been ordered and drawn at [facility]. Reviewed follow up time and date for next week. Daughter would like to be on the phone to listen to call when pt is here. Lorri Stevens LPN [facility] 05-06-2024 Miscellaneous Notes Spoke with daughter. Reviewed what had been ordered and drawn at [facility]. Reviewed follow up time and date for next week. Daughter would like to be on the phone to listen to call when pt is here. Lorri Stevens LPN Lacey Padgett called stating that Dr. Greenberg had ordered some tests and she would like to know what those were. She can be reached at work number until 3:30, after 415 on mobile today documented in this encounter [facility] 05-06-2024 Telephone encounter Note Lacey Padgett called stating that Dr. Greenberg had ordered some tests and she would like to know what those were. She can be reached at work number until 3:30, after 415 on mobile today [facility] Work Phone: 05-04-2024 Telephone encounter Note Paper copied and sent to scanning. Original paperwork ready for patient's daughter. Left message for daughter. Paperwork taken to medical records. Sylvia Rossi MA [facility] 05-04-2024 Miscellaneous Notes Paper copied and sent to scanning. Original paperwork ready for patient's daughter. Left message for daughter. Paperwork taken to medical records. Sylvia Rossi MA Additional form completed. Printed off Emergency Guardian form per Dr. Jones request. Given to Dr. Jones to complete. Sylvia Rossi MA Forms completed. Make sure copy gets scanned into chart. Daughter dropped off the paperwork for Guardian Ship. (3) copies given. Sylvia Rossi MA Given to provider. Left detailed that daughter needs to obtain the guardianship paperwork from the [facility] and bring to Dr. Jones's office for him to complete. We do not keep Guardianship paperwork in the doctor's office. Dr. Jones has not received the paperwork in the office. Sylvia Rossi MA Patient's daughter calls and is asking if provider got forms completed for guardianship of patient. Daughter is concerned that patient will sign himself out of fci. Daughter states that she can brain picker forms when complete. Please review and advise, Nora Berry RN documented in this encounter [facility] 05-04-2024 Telephone encounter Note Additional form completed. [facility] 05-04-2024 Telephone encounter Note Printed off Emergency Guardian form per Dr. Jones request. Given to Dr. Jones to complete. Sylvia Rossi MA [facility] 05-03-2024 Telephone encounter Note Forms completed. Make sure copy gets scanned into chart. [facility] 05-03-2024 Telephone encounter Note Daughter dropped off the paperwork for Guardian Ship. (3) copies given. Sylvia Rossi MA Given to provider. [facility] 05-03-2024 Telephone encounter Note Lab cancelled as requested. Nora Mansfield [facility] 05-03-2024 Miscellaneous Notes Lab cancelled as requested. Nora Mansfield Left message on daughters voicemail that the labs drawn at [place] on 04/28 will surfice for scheduled appt. Tomorrow with Dr. Greenberg we have results. PSS please cancel lab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 hospitalization but this examiner did not feel in the end that he had acute cystitis. Discontinued sennosides-docusate sodium [Stool Softener-Stimulant Laxat] 8.6-50 mg Tablet 2 tab PO BID Qty: 0 0RF buprenorphine 10 mcg/hour patch weekly 1 patch transdermal FR 7 Days Qty: 1 0RF PT CURRENTLY DOES NOT HAVE A PATCH ON ( OF 12/25/23) hydroxyzine HCl 25 mg tablet 12.5 mg PO TID PRN (Reason: MENTAL HEALTH ) baclofen 10 mg tablet 5 - 10 mg PO TID PRN (Reason: MUSCLE SPASMS) cimetidine 400 mg tablet 400 mg PO DAILY Pt discharged from [facility] on 12/27/23. Admitted for: Hyperkalemia, TORRIE Patient's cimetidine was stopped due to his TORRIE however he was on this for his sexual agressiveness. Patient saws he feels good. No chest pains, palpitations, shortness of breath, wheezing or muscle aches. Past medical history, appointments, medications, allergies reviewed. Previous Medical History PAST MEDICAL HISTORY Diagnosis Date Arthritis of right hip 09/25/2017 Arthritis, lumbar spine 09/25/2017 Bilateral carotid artery stenosis 02/04/2022 US 01/2022: L side 60-80% R side 40-60%. Consult to [facility] Bladder stone 09/25/[address] Bagley BPH with obstruction/lower urinary tract symptoms BPH with obstruction/lower urinary tract symptoms Dr. Hendrix Calculus of gallbladder with chronic cholecystitis without obstruction 06/13/2021 Chronic midline back pain 10/20/2017 Chronic pulmonary embolism (HCC) 11/13/2023 Spoke to patient on 11/13/2023. Unable to reach daughter. Chest CT shows an old PE in the right lower lobe. Due to patient's fall risk, discussed case with oncologist as well as PCP. Hesitant to start patient back on anticoagulation, patient is agreeable to hold off from starting back on Eliquis. Allyson Hernandez, SAKINA.RUMPER Cog-wheel rigidity 06/18/2019 left upper extrmity, right upper extremity lead piping Colon cancer (HCC) 06/30/[address] Greenberg, Had extension into the bladder wall and hd a partial cystectomy. Colostomy care (HCC) 09/25/[address] (HCC) 09/25/2017 Coronary artery disease involving [place] coronary artery 09/25/[address] Siddiqui [id number] DDD (degenerative disc disease), lumbar 12/14/2021 Decreased transfer ability 12/25/2023 Dementia without behavioral disturbance (HCC) Seeing Dr Liu Elevated hemoglobin A1c 07/30/2018 Essential hypertension 04/02/2011 Essential tremor 08/16/2019 SALAS (generalized anxiety disorder) 01/01/2023 Generalized weakness 06/18/2019 H/O heart artery stent 09/25/2017 4 stents 1993 History of DVT (deep vein thrombosis) 09/25/2017 1st clot end of Aug 2017, started on Eliquis 09/15/2017 needs to be on till 03/15/2018 S/P colectomy History of [place] (myocardial infarction) 1993 History of prostate cancer [...] Paroxysmal atrial fibrillation (HCC) s/p colectomy 2016. 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 atenolol (TENORMIN) 25 mg tablet Take 0.5 tablets by mouth once daily. acetaminophen (TYLENOL) 500 mg tablet Take 2 tablets by mouth. finasteride (PROSCAR) 5 mg tablet senna-docusate (SENNA-S) 8.6-50 mg per tablet Take 2 tablets by mouth. cimetidine (TAGAMET) 400 mg tablet Take 400 mg by mouth once daily. buPROPion SR (WELLBUTRIN SR) 150 mg 12 hr tablet take 1 tablet by mouth twice a day atorvastatin (LIPITOR) 10 mg tablet Take 1 tablet by mouth daily at bedtime. For cholesterol. hydrOXYzine HCl (ATARAX) 25 mg tablet Take 0.5 tablets by mouth three times a day as needed. gabapentin (NEURONTIN) 100 mg capsule Take 1 capsule by mouth three times a day for 180 days. mirtazapine (REMERON) 45 mg tablet Take 1 tablet by mouth daily at bedtime. tamsulosin (FLOMAX) 0.4 mg Take 1 capsule by mouth daily at bedtime. buprenorphine (BUTRANS) 10 mcg/hour Apply 1 Patch as directed one time a week for 7 days. Per pain management. baclofen (LIORESAL) 10 mg tablet Take 0.5-1 tablets by mouth three times daily as needed. For spasms. nitroglycerin sublingual (NITROQUICK) 0.4 mg SL tablet Q5M aspirin, enteric coated (ECOTRIN LOW STRENGTH) 81 mg EC tablet Take 1 tablet by mouth once daily. isosorbide mononitrate ER [...] REVIEW OF SYSTEMS See HPI EXAM: BP 100/60 (BP Site: Right Arm, BP Position: Sitting, BP Cuff Size: Regular Adult) Pulse 72 Resp 18 Wt 73.9 kg (163 lb) BMI 26.31 kg/m General Appearance: Well appearing, alert, in [...] edema, skin discoloration, Good capillary refill. . Health Maintenance List LDL Cholesterol due on 03/27/2024 Diabetes Screening due on 12/24/2026 DTaP,Tdap,Td Vaccine(5 - Td or Tdap) due on 07/15/2032 Influenza Vaccine Completed Advance Directive Discussion Completed RSV Vaccine Completed Shingrix Vaccine Completed Covid-19 Vaccine Completed Pneumococcal Vaccine: 65+ Completed HPV Vaccine Aged Out Data reviewed Hospital notes from 12/27/2023 A/P ASSESSMENT/PLAN: 1. Hyperkalemia - ICD9: 276.7, ICD10: E87.5 (primary diagnosis) Check - BASIC METABOLIC PANEL 2. TORRIE (acute kidney injury) (HCC) - ICD9: 584.9, ICD10: N17.9 Check - BASIC METABOLIC PANEL Suspect this may of been secondary to dehydration. Encouraged 84 ounces of water a day. If renal function ok will get him back on the Tagamet. Vishal Jones MD documented in this encounter [facility] 12-31-2023 Note [facility] 12-30-2023 Miscellaneous Notes Patient was scheduled for 20 minutes. Moved patient to the 1:00 pm slot due to more complex patient and provider requested 40 minutes in note below. L/m for daughter Lacey for patient to come in earlier. Sylvia Rossi MA Left message for daughter Lacey that patient's needed a 1 week HOSPITAL F/U with Dr. Jones is his team. Please allow 40 MINUTE VISIT. Sylvia Rossi MA documented in this encounter [facility] 12-29-2023 Note [facility] 12-29-2023 History of Present illness Narrative POPULATION HEALTH NAVIGATION OUTREACH Action/FYI TCM Hospital Discharge Follow up. TCM Eligible until 01/10/24 Spoke with daughter; scheduled appointment for 12/30 Reason for Outreach Community Monitoring/Network Navigator Pools & Phone Line: TCM Patient Contacted: Spoke to patient/parent/or legal guardian Patient identified by name and : Yes Community Monitoring/Network Navigator Pools & Phone Line actions taken: Patient scheduled: Hospital Follow-up Navigation Signature: Belen Andersen MA December 29, 2023 4:50 PM TCM Home Visit Referral Source of Stratification: [facility] Admission Status: Discharged Readmission Risk Score: N/A DEMAR Score: N/A Patient meets program referral criteria: No Patient does not qualify for High Risk TCM Home Visit program due to: Discharged home, does not meet program criteria Catalina Rios RN December 29, 2023 4:32 PM TRANSITIONAL CARE MANAGEMENT (TCM) COMMUNITY MONITORING PROGRAM Provider Action/FYI: Pt states he is feeling better Denies CP, SOB, N/V, fever or chills Voiding without difficulty Colostomy intact Appetite is good, eating and hydrating Navigation Team Please assist with scheduling TCM Hospital Discharge Follow up. TCM Eligible until 01/10/24 Thank you Upcoming appointments GILLES 01/05 PCP 04/14 Copied from Care Everywhere [facility] 12-25-2023 - 12-27-2023 Hyperkalemia, acute kidney injury Disposition: Home, Self Care Hospital Course: This 83-year-old white male was seen in the emergency room at [facility] after outpatient labs showed elevated creatinine and hyperkalemia. Workup in the emergency room showed an elevated white blood cell count, sodium was low at 124, potassium was elevated at 6.9, creatinine was elevated to 2.75 and BUN was 57. Patient's UA showed more than 100 WBCs, there was +1 yeast and +1 bacteria. Patient was admitted to PCU, he was given Kayexalate and repeat labs were obtained, he was given IV fluids, patient's creatinine returned to normal during his hospitalization and his potassium normalized. Patient's urineculture grew out small numbers of Miladys albicans and mixed gram-positive organisms, he was given IV antibiotics during his hospitalization but this examiner did not feel in the end that he had acute cystitis. Discontinued sennosides-docusate sodium [Stool Softener-Stimulant Laxat] 8.6-50 mg Tablet 2 tab PO BID Qty: 0 0RF buprenorphine 10 mcg/hour patch weekly 1 patch transdermal FR 7 Days Qty: 1 0RF PT CURRENTLY DOES NOT HAVE A PATCH ON ( OF 12/25/23) hydroxyzine HCl 25 mg tablet 12.5 mg PO TID PRN (Reason: MENTAL HEALTH ) baclofen 10 mg tablet 5 - 10 mg PO TID PRN (Reason: MUSCLE SPASMS) cimetidine 400 mg tablet 400 mg PO DAILY SUMMARY: Discharge Network Status: [id number] (OON) Discharge Pt discharged from [facility] on 12/27/23. Admitted for: Hyperkalemia, TORRIE Contact made with patient: Yes Hi my name is Catalina Rios RN and I am calling from the [facility] on behalf of your PCP, Vishal Jones MD I understand you were recently in the hospital so I am calling to check in with you to ensure you are feeling well now that you're home. May I ask you a few questions related to your hospital stay and well-being? Yes - However, now is not a good time, next outreach attempt will be on day of the preference of the patient Contact with patient post discharge, spoke to patient. Patient identified by name and . Do you feel your health is BETTER, WORSE, or the SAME since leaving the hospital? Better ACTION TAKEN: Patient indicated symptoms are better or same, no action required. Continue outreach. MEDICATIONS: Many patients have questions or concerns about their medications once they are home. Do you have any questions about taking your medications or which medication you should be on? No Do you need any medication refills at this time, including any of the medications you might take only when needed? No ACTION TAKEN: No action required For RNs or Pharmacy completing outreach ONLY, was a medication review completed? No Pt declined medication review at this time. SOCIAL: We would like to make sure you have what you need so that your basics needs are met - including your personal safety, food, housing and medications. Would you like to speak with a social work paper steamer to help give you support for any of these needs? No It can be normal to feel anxious or down during a time like this. Would you like to talk to a mental health professional about how you have been feeling? No ACTION TAKEN: No action taken DISCHARGE INTRUCTIONS: Your discharge instructions / After Visit Summary (AVS) are important in guiding you through the recovery process. Do you have any questions related to your discharge instructions? No Do you have all the necessary equipment and supplies at home? Yes ACTION TAKEN: No action required I would like to help you schedule a hospital follow-up virtual or telephone visit with your PCP. This is a great way for you to connect with your provider to ensure you have safely transitioned home. If you are agreeable, I will send your request to a tombstone erector who will contact and assist you with that appointment. This will give you an opportunity to ask any questions or address any concerns you may have with your PCP. Inform the patient that if they have any questions or concerns prior to that appointment, to call their PCP's office right away. ACTION TAKEN: Patient desires an appointment - Routed to [facility] [[id number]] for scheduling telehealth visit (telephonic, virtual visit, or Facetime) within 7 days of discharge with PCP care team. Indicate hospital follow-up appointment needed within 7 days in Provider/FYI box. End Outreach. Your doctor would like us to remind you of the recommendations regarding the coronavirus (Covid19) outbreak: Avoid public places as much as possible. Avoid close contact (within 6 feet) with others you don t live with, especially if they are sick. Stay home if you are sick. Wash your hands regularly for at least 20 seconds with soap and water. Wear a cloth mask in public places to help reduce community spread. Do not go to your Doctor s office unless instructed to do so. For any non-emergency symptoms, call your Doctor s office to get instructions on how to manage (we might recommend a telephone or virtual visit). For emergency symptoms, proceed to Emergency Department as usual but inform them of cough and fever symptoms GENARO if present (or call on the way if possible). NICKIE Education Ordered -: No Catalina Rios RN December 29, 2023 4:37 PM documented in this encounter [facility] 12-29-2023 Note [facility] 12-29-2023 Miscellaneous Notes Images from the original note were not included. Prior authorization approved Payer: [facility] [phone] Approval Details Authorized from September 30, 2023 to December 28, 2024 Electronic appeal: Not supported View History Notes Time User Attachment Attachment received from payer. 12/29/2023 3:46 PM Cchs, Rx Priorauth In Document Medication Being Authorized lidocaine (LIDODERM) 5 % Apply 1 Patch as directed every 24 hours. Dispense: 30 Patch Refills: 5 Start: 12/29/2023 Class: Normal This order has been released to its destination. To be filled at: [id number] [place] [id number] - [id number] [facility] [phone] [id number] Pharmacy notified. Electronic PA rec'd and completed for lidocaine 5% patches. documented in this encounter [facility] 12-29-2023 Miscellaneous Notes Patient has been identified by name and date of : daughter friend phones for refill(s): Requested Prescriptions Pending Prescriptions Disp Refills lidocaine (LIDODERM) 5 % Sig: Apply 1 Patch as directed every 24 hours. atenolol (TENORMIN) 25 mg tablet 30 tablet 5 Sig: Take 0.5 tablets by mouth once daily. Date of last office visit in primary care: 12/25/2023 Date of next office visit in primary care: 04/14/2024 Patient using pain patch on his back Please advise. Thank you. Enedina Li LPN. documented in this encounter [facility] 12-25-2023 Miscellaneous Notes Grazyna, nurse @ [facility] returned call. This nurse notified her that patient was admitted to [facility] today with hyperkalemia per Dr. Greenberg's office. Kiki Mas RN Faxed. Danyelle Bustillo MA Order and office note printed and signed and ready to be faxed. Grazyna from [facility] returned call and went over notes below from Dr Jones. Grazyna said was not seeing the patient prior to his [facility] stay. Grazyna is asking if Dr Jones could address the PT/OT orders they received from [facility] at his appt on 12/24 and fax orders and copy of office visit notes to [facility] at [phone]. Please advise Find out from Grazyna from [facility] received orders for HHC from [facility] because it was felt he needed it or was this just continuation from prior to his admission? Patient was scheduled for 8:20 am for D[facility]C [facility] from [facility]. Spoke with patient and changed time to 8:00 am and made for 40 minutes. Sylvia Rossi MA Left message for patient Lacey daughter to contact. Sylvia Rossi MA Please contact Lacey to verify patient is being discharged to home [facility]. Grazyna, a nurse with [employer] [facility] calling. Reports patient is currently at [facility] for rehabilitation, following [facility] ED visit after a fall. Grazyna requesting: Nursing, PT and OT home health orders, as patient discharges home soon. Verbal Order may be called in to Grazyna at [phone]. Message may be left on this secure voicemail. Thank you. documented in this encounter [facility] 12-25-2023 Miscellaneous Notes Done. Fany Francis LPN I reviewed the CT images of the abdomen pelvis that were done today. Radiologist has not yet interpreted but I see no evidence of hydroureter or hydronephrosis. Bladder does not appear to be over distended. The cause of acute kidney injury not clear based on CT imaging. 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 Please fax this note to the ED. As well as his last several chemistry panels if not already faxed. 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 Labs and a copy of this note faxed to [facility] ED. Fany Francis LPN New CT orders in. Ashley Marshall APRN.RUMPER He is also in acute renal failure with hypercalcemia. Needs to go to ED after CT. Howie Greenberg DO Call received from lab client services regarding a critical potassium of 6.1. pt in the building now for CT scan. Please advise. Ashley is changing orders to without due to his creatinine today. Lorri Stevens LPN documented in this encounter [facility] 12-25-2023 Note [facility] 12-25-2023 History of Present illness Narrative Mcconnell needle removed prior to C Scan per physician order and patient and caregiver instructed to go to ER after Ct Scan. 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 Greenberg his oncologist Dr. Chapincito Tomlin neurology for dementia and movement issues. Dr. Huntley for his heart Dr. White for his peeing and prostate DR. Tena for his chronic pain. documented in this encounter [facility] 12-25-2023 History of Present illness Narrative Chief Complaint Patient presents with: Hospital Follow Up HPI Howie Hagen is a 83 year old male who presents here today for [facility]charge [facility] facility. Patient was taken to [facility] ER on 11/14/2023. Patient indicated that since his CVA he has been having balance issues and falls quite often. Stated that he was at the hospital earlier that day for MRI. He indicated to staff that he had fallen and struck his head and did have LOC. Patient was admitted on 11/17/2023 for Rhabolomyolysis, complicated by Influenza A/pneumonia and UTI. Once stable he was discharged to TCU in [facility] with debility for rehab. On 11/19/2023 he was discharged from the TCU to nursing home facility for terminal gauger care. Patient requested to come home and since the daughter does not have legal guardianship he can not be forced to stay in terminal gauger care even though it was safer for him. His car is at home and the daughter has the keys. Patient continues to not understand why he can not drive. Patient is still having issues with balance and strength. [facility] has reached out to him for skilled care, PHYSICAL THERAPY and OT. Due to his sexual aggression he was started on Tagement in the SNF. Has not been drinking since he was initially in the hospital. There is none in the house currently. Past medical history, appointments, medications, allergies reviewed. Previous Medical History PAST MEDICAL HISTORY Diagnosis Date Arthritis of right hip 09/25/2017 Arthritis, lumbar spine 09/25/2017 Bilateral carotid artery stenosis 02/04/2022 US 01/2022: L side 60-80% R side 40-60%. Consult to [facility] Bladder stone 09/25/[address] Bagley BPH with obstruction/lower urinary tract symptoms BPH with obstruction/lower urinary tract symptoms Dr. Hendrix Calculus of gallbladder with chronic cholecystitis without obstruction 06/13/2021 Chronic midline back pain 10/20/2017 Chronic pulmonary embolism (HCC) 11/13/2023 Spoke to patient on 11/13/2023. Unable to reach daughter. Chest CT shows an old PE in the right lower lobe. Due to patient's fall risk, discussed case with oncologist as well as PCP. Hesitant to start patient back on anticoagulation, patient is agreeable to hold off from starting back on Eliquis. Allyson Hernandez, DIRECTOR IMMUNOLOGY.RUMPER Cog-wheel rigidity 06/18/2019 left upper extrmity, right upper extremity lead piping Colon cancer (HCC) 06/30/[address] Greenberg, Had extension into the bladder wall and hd a partial cystectomy. Colostomy care (HCC) 09/25/[address] (HCC) 09/25/2017 Coronary artery disease involving port graham coronary artery 09/25/[address] Siddiqui [id number] DDD (degenerative disc disease), lumbar 12/14/2021 Dementia without behavioral disturbance ([facility]) Seeing Dr Liu Elevated hemoglobin A1c 07/30/2018 Essential hypertension 04/02/2011 Essential tremor 08/16/2019 SALAS (generalized anxiety disorder) 01/01/2023 Generalized weakness 06/18/2019 H/O heart artery stent 09/25/2017 4 stents 1994 History of DVT (deep vein thrombosis) 09/25/2017 1st clot end of Aug 2017, started on Eliquis 09/15/2017 needs to be on till 03/15/2018 S/P colectomy History of [place] (myocardial infarction) 1993 History of prostate cancer [...] Paroxysmal atrial fibrillation (HCC) s/p colectomy 2016. 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 For cholesterol. hydrOXYzine HCl (ATARAX) 25 mg tablet Take 0.5 tablets by mouth three times a day as needed. gabapentin (NEURONTIN) 100 mg capsule [...] No Review of Symptoms REVIEW OF SYSTEMS RESPIRATORY: Negative for cough, hemoptysis, wheezing, COPD, dyspnea or shortness of breath. Gets tired quickly. CARDIOVASCULAR: Negative for chest pain, leg swelling, hypertension, CHF or palpitations MUSCULOSKELETAL: has his arthritic pains. Tires quickly. NEURO: No history of headaches, syncope, paralysis, seizures or tremors EXAM: BP 108/64 Pulse (!) 56 Ht 167.6 cm (5' 6 ) Wt 72.6 kg (160 lb) SpO2 99% BMI 25.82 kg/m General Appearance: Well appearing, alert, in [...] refill. . Peripheral Pulses: Normal. Neurologic: Gait is slow and unsteady. Using a cane. Sensation to light touch is intact. Crainal nerves 2-12 are grossly intact. Musc: upper extremity strength is 5/5 janell. Leg extension strength is 5/5 and hip flexor strength is 4/5 janell. Health Maintenance List RSV Vaccine(1 - 1-dose 60+ series) Never done LDL Cholesterol due on 03/27/2024 Diabetes Screening due on 09/18/2026 DTaP,Tdap,Td Vaccine(5 - Td or Tdap) due on 07/15/2032 Influenza Vaccine Completed Advance Directive Discussion Completed Shingrix Vaccine Completed Covid-19 Vaccine Completed Pneumococcal Vaccine: 65+ Completed HPV Vaccine Aged Out Data reviewed A/P ASSESSMENT/PLAN: 1. Dementia with behavioral disturbance (HCC) - ICD9: 294.21, ICD10: F03.918 (primary diagnosis) - patient to get back in with neurology. There has been concern for Parkinson's in the past. 2. Essential hypertension - ICD9: 401.9, ICD10: I10 - Controlled - Continue current medications - Recommend home blood pressure monitoring, to bring results to next visit - Encouraged sodium restriction, DASH or Mediterranean diet - Recommend regular aerobic exercise 3. Hyperlipidemia, mixed - ICD9: 272.2, ICD10: E78.2 - Controlled - Continue current medications - Counseled on healthy diet and regular exercise 4. SALAS (generalized anxiety disorder) - ICD9: 300.02, ICD10: F41.1 - cont current meds. 5. Coronary artery disease involving port graham coronary artery of port graham heart without angina pectoris - ICD9: 414.01, ICD10: I25.10 - patient will need to get back in with Cardio. Stable on exam today. 6. Paroxysmal atrial fibrillation (HCC) - ICD9: 427.31, ICD10: I48.0 - as per #5 7. Elevated hemoglobin A1c - ICD9: 790.29, ICD10: R73.09 - patient to cont control with diet. 8. Situational depression - ICD9: 309.0, ICD10: F43.21 - no changes in Tx. 9. BPH with obstruction/lower urinary tract symptoms - ICD9: 600.01, 599.69, ICD10: N40.1, N13.8 - needs to get jimenez in with Urology. Currently on Proscar and flomax. Was taken off of antispasmodics by neuro. 10. Sexually acting out - ICD9: V49.89, ICD10: R46.89 - cont the Tagamet. 11. Malignant neoplasm of sigmoid colon (HCC) - ICD9: 153.3, ICD10: C18.7 - cont his f/u with general surgery and oncology 12. Malignant neoplasm of ascending colon (HCC) - ICD9: 153.6, ICD10: C18.2 - as per #11 13. 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 Rectal cancer (HCC) - ICD9: 154.1, ICD10: C20 - as per #11 15. Malignant neoplasm of colon, unspecified part of colon (HCC) - ICD9: 153.9, ICD10: C18.9 - as per #11 16. Primary insomnia - ICD9: 307.42, ICD10: F51.01 - cont current Tx. 17. Alcohol use disorder - ICD9: V49.89, ICD10: F10.90 - patient currently not drinking and alcohol has been removed from the house. 18. 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 19. Colostomy in place (HCC) - ICD9: V44.3, ICD10: Z93.3 - cont routine care. 20. Colostomy care (HCC) - ICD9: V55.3, ICD10: Z43.3 - cont routine care. 21. 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) - ICD9: V44.2, ICD10: Z93.2 - cont routine care. 22. Chronic midline low back pain with right-sided sciatica - ICD9: 724.2, 724.3, 338.29, ICD10: M54.41, G89.29 - sees pain management 23. Generalized weakness - ICD9: 780.79, ICD10: R53.1 - patient will benefit from HHC for PHYSICAL THERAPY and PT 24. Falls frequently - ICD9: V15.88, ICD10: R29.6 - as per #23 25. Decreased transfer ability - ICD9: 780.99, ICD10: Z74.09 - as per #23. Advised patient he is not to be driving, should be using his walker and not a cane and no consumption of alcohol. HHC for nursing home will also be beneficial to assist with med education, management and disease education. Patient has appt in March. I spent a total of 43 minutes on the date of the service which included preparing to see the patient, [id number] patient care, completing clinical documentation, performing a medically appropriate examination, counseling and educating the patient/family/caregiver and ordering medications, tests, or procedures. Vishal Jones MD documented in this encounter [facility] 12-25-2023 Note [facility] 12-08-2023 Miscellaneous Notes Received form from Daughter for a request for statement of physician. This was completed and faxed and copy sent to scanning. Sylvia Rossi MA documented in this encounter [facility] 11-21-2023 Miscellaneous Notes Patients lorin Salinas brought in POA paperwork. Taken to medical records to be scanned into chart. Office note from 01/01 provided to lorin Salinas as requested. Connie Rodriguez LPN We have been trying to get copies of healthcare power of trial attorney from his daughter for several months now. Keeps telling us she will bring them in and then it seems to never happen. If she brings in the forms we need a copy and if they shows he has healthcare power of trial attorney it's ok to give her copy of the office note from 01/01/2023. Pt daughter called I and states provider had done testing on Pt and ruled him competent to make his own decisions. She was wanting the OV notes from this day (01/01/23) printed for her. I told her I would look for POA papers. The one attached to the AD under Pt info in upper left corner is from 2017, and I did not see anything else scanned into chart. I only see it typed that Pt daughter is POA but no actual copy. Daughter states she has the papers at all times and can bring them in. She wants to know who makes the decision of if her father is competent to make his own decisions. She states he had taken his car out and did something to it as it has a big scratch on it. She states she has an trial attorney appointment today, as her fathers girlfriend moved back into his house after moving out on 11/07/33. The girlfriend had some items still in the house claiming that it was still hers since they were still there, and wants to keep her father at [facility]. Daughter says her father is telling his girlfriend to come get the keys to get the car, but she says she isn't going to take care of her father. Daughter states his girlfriend told told her he was getting into her Gabapentin which is 800 mg, and they hadn't told her. She states this could have been contributing to his falling along with his drinking. Daughter is going to bring in her POA papers to providers office to have copied and brain picker OV note then. Daughter, Lacey, returning call and given provider's advise below. Daughter states patient is scheduled to be admitted to [facility] this Friday. Meka Capps, RN 2nd attempt: Left a message for daughter to call back for information listed below. Tami Cotto LPN Left a message for pt to call the office and ask to speak to a nurse. Tami Cotto LPN Advise daughter they should consider looking at having her dad admitted to [facility] for terminal gauger placement and they can also do rehab. Lacey, daughter calling to see where you feel pt can be cared for the best with his dxs and what is going on. Pt is at [facility] rehab and he is being inappropriate with staff. Daughter feels he may ave some owners in the evening. Lacey is looking for a rehab facility that would best suit pt and could be terminal gauger. Pt has a colostomy bag, port that needs cleaned and at times he is not the nicest person. Lacey was thinking about [facility] because she has had a relate there in the past. Also given the [facility], [facility], [facility] , [facility], [facility]. She would like your opinion. Please advise Lacey. Tami Cotto LPN documented in this encounter [facility] 11-20-2023 Note HNO ID: [id number] Author: MARKUS DELONG LPN Service: ? Author Type: LICENSED NURSE Type: Progress Notes Filed: 11/20/2023 09:32 Note Text: Scan on 11/19/2023 7:44 AM by Kvng Dalal PA-C [facility] 11-20-2023 History of Present illness Narrative Scan on 11/19/2023 7:44 AM by Kvng Dalal PA-C documented in this encounter [facility] 11-17-2023 Miscellaneous Notes Noted. Thank you. Howie Greenberg DO Admitted to [facility] 11/14/2023- fall RECENT CVA RHABOLOMYOLYSIS Closed compression fracture of lumbar vertebra Fany Francis LPN Received message from loading unit operator seating at 10:03 this morning that patient is inpatient and is to cancel lab, ct for 11/16, brain health consult on 11/17 and office visit with Dr. Greenberg on 11/23. Patient will inform of discharge for rescheduling. documented in this encounter [facility] 11-14-2023 Note [facility] 11-14-2023 History of Present illness Narrative Scan on 11/14/2023 2:03 AM by Kvng Dalal PA-C: Consultation - Emergency Medicine Scan on 11/14/2023 1:07 AM by Kvng Dalal PA-C: X-ray Scan on 11/14/2023 1:06 AM by Kvng Dalal PA-C: X-ray Scan on 11/14/2023 1:06 AM by Provider, GRIS Calderon: X-ray documented in this encounter [facility] 11-13-2023 Miscellaneous Notes Spoke to patient about chest CT results. Unable to reach his daughter. CT shows an old clot in the right lower lobe. I discussed this case with oncology as well as his PCP. Due to the high risk of falls hesitant to start back on anticoagulation. Discussed this with the patient, he is agreeable to hold off from starting back on Eliquis. Instructed him to monitor his symptoms. Allyson Hernandez APRN.SOULEYMANE documented in this encounter [facility] 11-13-2023 Miscellaneous Notes Daughter Lacey returned the call and notified of below results and given Allyson's instructions and recommendations. Daughter Lacey sounds sick as well with a runny nose. Explained she probably has Influenza A as well and she needs to be wearing a mask when out an about. Patient notified of results, verbalizes understanding of instructions. LM for daughter to call for results. Barbara Middleton LPN Can you please call the patient and daughter and let them know that he tested positive for influenza A. Since he has been having ongoing symptoms for at least 6 weeks it is difficult to know when he caught the flu. I would like him to continue with antibiotics and supportive care at home. He may use [id number] cold and cough medications as needed for symptom management. Complete the CT scan, I would like him to wear a mask when out in public. Red flag symptoms such as difficulty breathing or worsening symptoms to go to ER. Please let me know if he has any questions. Thank you. Allyson Hernandez APRN.SOULEYMANE documented in this encounter [facility] 11-13-2023 Miscellaneous Notes Daughter Lacey returned the call and notified of Dr. Jones's instructions. Called and left a voicemail for the Patient to call back and ask for a nurse to receive the providers message. Ifrah Cuevas RN I would advise the daughter to reach out to the neurologist and ask how she plans to address her dads anxiety and sleep with taking him off the hydroxyzine. Is there something she will place him on in place of this. Pts daughter called in and reports she went with Pt to see the Neurologist yesterday. She states the Neurologist told him to stop taking the Oxybutynin and Hydroxyzine because they both effect the memory of the brain. The daughter wanted to talk with the Pts provider before just stopping these medications. She reports the Hydroxyzine is for his anxiety and to help him get sleep. His daughter says there comes a point where you need to weigh the bad memory between him being in a lot of pain and not being able to sleep. She also reports Pt has had chest congestion x3 months so she is either going to have him call or she will call back to get him an appointment. Please call and advise. documented in this encounter [facility] 11-13-2023 Note [facility] 11-13-2023 History of Present illness Narrative Patient is here for IVAD port flush per [facility] [place] protocol. IVAD is located in right upper chest. Site cleansed with Chloraprep IVAD accessed with a #20 gauge 3/4 non-coring Gripper needle Blood Return: Good Flushed with: 20 ml Normal Saline Non-coring needle left intact for CT. Opsite applied to puncture site. Port site negative for redness, edema or tenderness. Patient tolerated procedure well. documented in this encounter [facility] 11-13-2023 History of Present illness Narrative Radiology Service Progress Note PATIENT NAME: Howie Hagen DATE OF SERVICE: November 13, 2023 TIME: 4:03 PM PATIENT IDENTITY VERIFICATION COMPLETED USING TWO [...] PATIENT PRESENTS WITH AN IMPLANTABLE OR ATTACHED ROOFING LABORER: power port RADIOLOGY DEPARTMENT: CT; Exam(s) Completed: PE Study PERIPHERAL IV DATA: power port accessed by hemoc SIGNED BY: RT Arturo(R) November 13, 2023 4:03 PM documented in this encounter [facility] 11-13-2023 Note [facility] 11-12-2023 Miscellaneous Notes Noted, thank you. Allyson Hernandez APRN.CNP Update: Pts daughter called with update. He was indeed not sure where he made a wrong turn at but did make home. She scheduled the CT for tomorrow morning, 11/13/23. She wanted Dr. Jones to be aware. [place] was offered. Attempted to schedule CT of chest with daughter. Offered today at 2p if he had not eaten in the last 4 hours or there is an opening tomorrow at 9:20. Did not check [facility] or offer other sites before daughter, Lacey, said to call pt as he may still be nearby and could be back at 2. Called pt who answered, but he seemed unclear where he was as he asked do you know anything about [place] . He seemed to think he was not in [place] anymore. States he wondered if I could call his . There is not a spouse listed on the account so I offered to call his daughter again. Spoke with her who states she thought he was still in [place] when she talked to him before calling us. She also informed that his had several years ago. She was going to reach out to her dad again. Informed her he could be seen in [place] today for the CT if she called back after talking to him. Patient daughter Lacey calling asking what did her father need to have done. Went over notes below from Allyson Hernandez POST TENSIONING IRONWORKER, assisted with transfer to get CT Chest appt set up. Patient notified of results, verbalizes understanding of instructions. Barbara Middleton LPN Can you please call the patient and let him know that I reviewed his chest x-ray results. X-ray does show pneumonia in the right lower lobe. I would like him to continue with the antibiotic and supportive care at home. Radiology noted a slight enlargement of the hilum and recommended a CT scan as soon as possible of the chest. This has been placed. He may schedule anytime. Allyson Hernandez APRN.SOULEYMANE documented in this encounter [facility] 11-12-2023 History of Present illness Narrative Radiology Service Progress Note PATIENT NAME: Howie Hagen DATE OF SERVICE: November 12, 2023 TIME: 11:05 AM PATIENT IDENTITY VERIFICATION COMPLETED USING TWO [...] place to prevent falls during this visit? Offered Assistance with Transfers/Clothing and Instructed Patient to Remain Seated (Not on Exam Table) Until Exam PATIENT GENDER DATA: Male PATIENT RELEVANT IMPLANT DATA REVIEWED: Not Applicable PATIENT PRESENTS WITH AN IMPLANTABLE OR ATTACHED ROOFING LABORER: No RADIOLOGY DEPARTMENT: General X-ray: Exam(s) Completed: Chest X-Ray PERIPHERAL IV DATA: Not applicable SIGNED BY: RT Jonh(R) November 12, 2023 11:05 AM documented in this encounter [facility] 11-12-2023 Note [facility] 11-12-2023 History of Present illness Narrative This is a 83 year old male who presents today with: Patient presents with: Acute Visit: Head congestion, temp HISTORY OF PRESENT ILLNESS: Howie Hagen is a 83 year old male. Patient presents with: Acute Visit: Head congestion, temp Patient of Dr. Jones here in the office for ongoing sinus congestion and cough. Has been on going for the past 6 weeks. Cough is productive, yellow mucus. Low grade fever in office today. Has been taking Mucinex. No SOB or difficulty breathing. PAST MEDICAL HISTORY: PAST MEDICAL HISTORY Diagnosis Date Arthritis of [...] and hd a partial cystectomy. Colostomy care ([facility]) 09/25/[address] ([facility]) 09/25/2017 Coronary artery disease involving port [place] coronary artery 09/25/[address] Siddiqui [id number] DDD (degenerative disc disease), lumbar 12/14/2021 Dementia without behavioral disturbance ([facility]) Seeing Dr Liu Elevated hemoglobin A1c 07/30/2018 Essential hypertension 04/02/2011 Essential tremor 08/16/2019 SALAS (generalized anxiety disorder) 01/01/2023 Generalized weakness 06/18/2019 H/O heart artery stent 09/25/2017 4 stents 1993 History of DVT (deep vein thrombosis) 09/25/2017 1st clot end of Aug 2017, started on Eliquis 09/15/2017 needs to be on till 03/15/2018 S/P colectomy History of [place] (myocardial infarction) 1993 History of prostate cancer seeing Dr. White Hyperlipidemia, mixed 09/25/[address] ([facility]) 06/13/2021 Living will on file at [...] Paroxysmal atrial fibrillation (HCC) s/p colectomy 2016. 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 MEDICATIONS Current Outpatient Medications Medication Sig buPROPion SR (WELLBUTRIN SR) 150 mg 12 hr tablet take 1 tablet by mouth twice a day atorvastatin (LIPITOR) 10 mg tablet Take 1 tablet by mouth daily at bedtime. For cholesterol. hydrOXYzine HCl (ATARAX) 25 mg tablet Take 0.5 tablets by mouth three times a day as needed. gabapentin (NEURONTIN) 100 mg capsule [...] No current facility-administered medications for this visit. FAMILY HISTORY Problem Relation Age of Onset Prostate Cancer Father Cancer Father skin Heart Mother [place] late 50's Stroke Mother Diabetes Mother Social History Tobacco Use Smoking status: Never Smokeless tobacco: Current Types: Chew Vaping Use Vaping Use: Never used Substance Use Topics Alcohol use: Yes Alcohol/week: 14.0 standard drinks of alcohol Types: 14 Shots of liquor per week Comment: drinks two shots a night Drug use: No REVIEW OF SYSTEMS GENERAL: No weight loss, malaise or fevers/chills HEENT: + Sinus Congestion NECK: Negative for lumps, goiter, pain and significant neck swelling RESPIRATORY: + Cough CARDIOVASCULAR: Negative for chest pain, leg swelling, orthopnea, or palpitations GI: No nausea, vomiting, or diarrhea/constipation. No hematochezia/melena. No heartburn or reflux symptoms. : No history of dysuria, frequency or incontinence MUSCULOSKELETAL: Negative for joint pain or swelling. SKIN: Negative for lesions, rash, and itching ENDOCRINE: Negative for cold or heat intolerance, polyuria, polydipsia and goiter NEURO: No history of headaches, syncope, paralysis, seizures or tremors MOOD: Negative for depression, anxiety, or suicidal ideation. EXAM: BP 110/50 Pulse 116 Resp 20 Wt 76.2 kg (168 lb) SpO2 94% BMI 27.12 kg/m PHYSICAL EXAM: General Appearance: Ill appearing, alert, in no acute distress, well-hydrated, well nourished. Skin: Skin color, texture, turgor normal, no suspicious rashes or lesions. Head: Normocephalic, no masses, lesions, tenderness or abnormalities. Eyes: Anicteric sclera. Extraocular movements are intact. Ears: External ears normal, canals clear. TMs pearly dominguez. Nose/Sinuses: Positive findings: mucosa erythematous and swollen. No sinus tenderness with palpation. Oropharynx: Lips, mucosa, and tongue normal, teeth and gums normal, oropharynx normal. Neck: Supple, no adenopathy; thyroid symmetric, normal size, no bruits. Lungs: Cough, + Mild rhonchi noted in right lower lobe. Heart: RRR without murmur, gallop, or rubs. No ectopy. Extremities: No deformities, edema, skin discoloration, clubbing or cyanosis. Good capillary refill. Peripheral Pulses: Normal, Capillary refill <2secs, strong peripheral pulses, Pulses palpable. Neurologic: Gait normal. Sensation grossly intact. ASSESSMENT/PLAN: 1. Lower resp. tract infection - ICD9: 519.8, ICD10: J22 (primary diagnosis) - Concerns for possible pneumonia - Get xray completed - Start Doxycycline - Continue supportive care at home. - Denied wanting an albuterol inhaler at this time. - May use [id number] cold and cough medication as needed for symptom management. - COVID & INFLUENZA A/B & RSV NAAT, ROUTINE - XR CHEST 2V FRONTAL/LAT - DOXYCYCLINE HYCLATE 100 MG TABLET 2. Acute cough - ICD9: 786.2, ICD10: R05.1 - Same plan as #1. Follow-up pending test results or sooner as needed. Discussed treatment plan and patient voices understanding. Patient's questions answered appropriately. Medications and potential side effects were discussed and patient voices understanding. Allyson Hernandez APRN.SOULEYMANE This note was partially generated using [employer] voice recognition system. Note was reviewed for accuracy. There may be minor misspellings or grammar miscues with [employer] voice recognition. documented in this encounter [facility] 11-12-2023 Note [facility] 11-12-2023 Instructions Allyson Hernandez APRN.CNP - 11/12/2023 10:27 AM EST Get chest xray completed Start Doxycyline, take with food. May continue with Mucinex as needed for chest congestion. May use Robitussin if needed for cough Stay well hydrated May use Tylenol 650-1000 mg every 6-8 hours as needed for pain or fever. Covid/Flu/RSV pending Follow up pending test results or sooner as needed. documented in this encounter [facility] 11-11-2023 Instructions Chapincito Tomlin MD - 11/11/2023 2:42 PM EST Start Flomax (Prescription sent by Dr. Jones in 06/07 and needs to be filled) Stop using Oxybutynin Stop using Hydroxyzine (atarax) Cut down alcohol use to a single beer or small serving of wine. Continue using Solifenacin medication for now. This is for bladder as well. Daughter to supervise medications Driving needs supervision Follow up with me virtually in 4 weeks to follow on medications. documented in this encounter [facility] 11-11-2023 Note [facility] 11-11-2023 History of Present illness Narrative Images from the original note were not included. [facility] - Follow-up Visit Date: November 11, 2023 Patient Name: Howie Hagen Reason for Visit: follow-up visit Accompanied by: Daughter (Lacey) - MPOA SUBJECTIVE: HPI/interval history: During his previous visit the following plan was made: Previous plan- PLAN: MRI brain w quantitative analysis Neuropsychological [...] with me in person. Will need MoCA. Today's visit: ER visit in the interim for incidental acute stroke finding on MRI. He was advised to stop oxybutynin and start Flomax. He has not made the change yet. He is still taking the same medications as last time. Most of the history was provided by the daughter. Lala is no longer staying with him. She was bringing many other family members at the house which was confusing him and making him agitated. Lacey is able to see him few days a week. He changes his own colostomy bag now. He is able to do the things that Lala said he is not able to. Lacey had not seen any issues with his driving and he only drives short distance. Functional Evaluation: B-ADLs: (I=independent,A=assistance,D=dep endent) ?Bathing: I , Dressing: I , Toileting: I , Transferring: I , Continence: I , Feeding: I I-ADLs: Transportation: I , Medications: D daughter manages, Handle Finances: D and daughter manages REVIEW OF SYSTEMS: Weight change/Appetite: no concerns Hearing: no change Vision: no change Constipation, Diarrhea: Has an ostomy bag Incontinence: no Chest pain: No Edema: No Dyspnea: No Falls/injuries/accidents: Frequent falls NEURO: SEE HPI OUTPATIENT MEDICATIONS Current Outpatient Medications on File Prior to Visit Medication Sig buPROPion SR (WELLBUTRIN SR) 150 mg 12 hr tablet take 1 tablet by mouth twice a day atorvastatin (LIPITOR) 10 mg tablet Take 1 tablet by mouth daily at bedtime. For cholesterol. hydrOXYzine HCl (ATARAX) 25 mg tablet Take 0.5 tablets by mouth three times a day as needed. gabapentin (NEURONTIN) 100 mg capsule Take 1 capsule by mouth three times a day for 180 days. mirtazapine (REMERON) 45 mg tablet Take 1 tablet by mouth daily at bedtime. solifenacin 10 mg tablet Take 0.5 tablets by mouth once daily. tamsulosin (FLOMAX) 0.4 mg Take 1 capsule by mouth daily at bedtime. oxybutynin ER (DITROPAN XL) 10 mg 24 [...] Take 60 mg by mouth once daily. buprenorphine (BUTRANS) 10 mcg/hour Apply 1 Patch as directed one time a week for 7 days. Per pain management. No current facility-administered medications on file prior to visit. OBJECTIVE: PHYSICAL EXAM: Vitals: BP 134/74 (BP Site: Right Arm, BP Position: Sitting, BP Cuff Size: Regular Adult) Pulse 112 Ht 167.6 cm (5' 6 ) Wt 75.9 kg (167 lb 6.4 oz) BMI 27.02 kg/m General appearance: Sitting upright. Appears stated age. No acute distress. Non-toxic appearing. No hypomimia. Neuro: Mental Status: Alert, oriented to person, place, and time. Follows commands. Answering questions appropriately. No dysarthria or hypophonia. Cranial Nerves: EOMI CN VII: Face symmetric, no ptosis or facial droop CN VIII: Auditory acuity intact CN IX/CN X: Normal palate elevation CN XI: Normal shoulder shrug CN XII: Normal tongue strength and range of motion; no deviation, atrophy or fasciculations Motor Exam: No increase in tone bilaterally. No cog-wheeling. No rest tremor. No bradykinesia. No abnormal movements, jerks. Power 5/5 in UE's bilaterally. LE's 5/5 throughout as well. Coordination: FNF with no ataxia or dysmetria. Gait: Arises independently; normal posture; gait stable IMAGING REVIEW: mpression IMPRESSION: * Small acute infarct within left parieto-occipital white matter. * Moderate generalized volume loss. * Hippocampal volumes at the 4th percentile when compared to age matched normal controls by quantitative analysis. * Severe white matter disease which is nonspecific but likely reflective of chronic microvascular ischemia. * No evidence of parenchymal microhemorrhages by MRI. * Additional findings, as detailed above. INTERNAL RECORDS: The patient's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 Daughter/Lacey BAE, returned call from Dr. Liu office. Given message in previous encounter. Lacey agreeable for patient to see [facility]. States she has to do something as she doesn't want him to hurt someone or himself. Please place referral and call her to schedule appt. Today Lacey can be reached at [phone] Tomorrow can be reached at [phone] documented in this encounter [facility] 06-30-2023 Miscellaneous Notes Phone call placed brief message to contact a nurse. When patient's daughter (Roseanne Salinas ) listed on chart returns call Dr. Liu will place an order for patient to be evaluated at the [facility] if patient is agreeable. Please advise. Nessa Cotto LPN Daughter (Lacey) calls to request medication for patient to help with anxiety and calming him down as recommended to contact Dr. Liu by Dr. Jones (TE 06/26/2023). Patient continues to drive, becomes angry if they try to take the keys. Behaviors worse in the evening, paces, at bedtime if girlfriend doesn't sleep in bed he gets up every 15 minutes. Police were involved [place] night 06/27/2023, when patient drove to his ex's house that has a restraining order against him because he thought she had called him . No call was made to patient. Lacey reports that the police didn't do anything because with last legal encounter patient was deemed incompetent to stand trial. Yaz Michaels RN documented in this encounter [facility] 06-26-2023 Miscellaneous Notes Daughter returned [...] appt. It may be time to consider terminal gauger placement in a SNF with a dementia unit. Pt's daughter Lacey has concerns, states pt was told at his last OV that he is to not be driving any more. Lacey said pt is still driving, states he gets angry when they take the keys from him. States he ransacked his girlfriend's room trying to find his keys. Lacey reports pt swears at them & the other day he threw a cup with coffee in it across the room at his girlfriend. Lacey is asking if pcp can prescribe something that will calm him down? She reports pt is now able to have sex again - states he was not able to for about 20 yrs d/t prostate cancer however he can now. Please advise. Asha Frank LPN documented in this encounter [facility] 06-06-2023 Miscellaneous Notes TC to Lacey, spoke briefly and notified Lacey that concerns need to be addressed with Neuro. Call was dropped d/t cell medical reception. Regarding driving privilege's- Neuro revoked privilege's so again- Lacey needs to speak with Neurology about behaviors, driving, etc. Juan Kimball LPN Please advise daughter that this questions and concerns should be addressed with Howie's neurologist. Also she should call the audio visual design engineer. Per Dr. Liu's last office note Howie was informed he should not be driving. He may need admitted to local hospital for a Geripsych consult. Patient's daughter calls and states that they have taken away patient's keys so that patient could not drive. Patient found keys where they were hidden and took keys and drove off giving screw driver operator the bird stating f you and if [...] Dr. Jones can give her a call [phone]. Please review and advise, Nora Berry RN documented in this encounter [facility] 06-03-2023 Miscellaneous Notes Spoke with [...] daily at bedtime. documented in this encounter [facility] 05-29-2023 Instructions Kassandra Grady APRN.RUMPER - 05/29/2023 2:58 PM EDT ASSESSMENT/PLAN: 1. [...] FLU A/B + RSV E Bijan [employer] [facility] [employer] Student TEACHING PROVIDER (Physician/PA/DIRECTOR IMMUNOLOGY) NOTE OF PERSONAL INVOLVEMENT IN CARE: I have personally seen and examined the patient and performed the medical decision-making components. I have reviewed the Advanced Practice Registered Nurse (DIRECTOR IMMUNOLOGY) Student's documentation and verified the findings in the note as written. Any additions or changes are noted in bold/italics. Signature: Kassandra Grady Date: 05/29/2023 Time: 2:58 PM documented in this encounter [facility] 05-29-2023 Note [facility] 05-29-2023 History of Present illness Narrative This note was created using [employer]. Subjective Howie Hagen is a 83 year old male. [...] side 60-80% R side 40-60%. [facility] Bagley [...] place (HCC) 09/25/2017 Coronary artery disease involving port gra[place] coronary artery 09/25/[address] Huntley-Daysi [id number] DDD (degenerative disc disease), lumbar 12/14/2021 Dementia [...] on till 03/15/2018 S/P colectomy History of [place] (myocardial infarction) 1993 History of prostate cancer [...] Paroxysmal atrial fibrillation (HCC) s/p colectomy 2016. 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 I have reviewed the Advanced Practice Registered Nurse (DIRECTOR IMMUNOLOGY) Student's documentation and verified the findings in the note as written. Any additions or changes are noted in bold/italics. Signature: Kassandra Grady Date: 05/29/2023 Time: 2:58 PM documented in this encounter [facility] 05-20-2023 Note [facility] 05-20-2023 History of Present illness Narrative Patient's home health 485 form / care plan for certification period 05/08/2023 to 07/06/2023 reviewed and signed. Relevant medical records were reviewed. Changes were communicated to home health agency documented in this encounter [facility] 05-20-2023 Miscellaneous Notes Info noted. Zenaida from [facility] Home Health calling with OT plan of care, 2 visits weekly for 3 weeks working on fall prevention and balance training. This is delay of care since she had been on vacation. No return call is needed. documented in this encounter [facility] 05-16-2023 Miscellaneous Notes Peggy called [...] needed. Authorizing Provider: VISHAL JONES Ordering User: JUSTINE SUN APRN.SOULEYMANE Crystal calling from [facility] to report plan of care for patient and nursing home will visit patient 1 time a week for 3 weeks. care home will work with patient on medication management. Patient c/o burning and urine is dark. Ok to collect urine for analysis? Please review and Advise, Nora Berry RN documented in this encounter [facility] 05-13-2023 Miscellaneous Notes Opened in Error documented in this encounter [facility] 05-13-2023 Miscellaneous Notes Noted. Rosie speech therapist from [facility] calling with update on pt. States she will be seeing patient 1x per week for 4 weeks for family dementia education. Barbara Olivares RN documented in this encounter [facility] 05-12-2023 Miscellaneous Notes Spoke with patient's daughter. Given message from provider's office. She verbalizes understanding. Kiki Mas RN Left a detailed message for Daughter to call the office and ask to speak to a nurse. Tami Cotto LPN Let caregiver know Howie's nitroglycerin comes from the [facility]. The following approved medication requests have been transmitted electronically. Requested Prescriptions Signed Prescriptions Disp Refills gabapentin (NEURONTIN) 100 mg capsule 90 capsule 5 Sig: Take 1 capsule by mouth three times daily for 180 days. Authorizing Provider: VISHAL JONES MD Last refill gabapentin listed as med update Last refill nitro 10/09/22 Qty: 25 with 1 refill EDGAR 05/07/23 NOV 10/08/23 Markus Delong LPN Pts Caregiver states he still takes [...] for 180 days. Decreased per hospitalist at [facility] due to acute encephalopathy felt to be from [facility] pharmacy. nitroglycerin sublingual (NITROQUICK) 0.4 mg SL tablet 25 tablet 1 Sig: Q5M Please review and advise. Shannon Gleason documented in this encounter [facility] 05-09-2023 Miscellaneous Notes Called and left detailed message on Pallavi identifiable VM with responses below from Provider. Notified Shannon that Rx has been sent to [facility]. If questions she is to call office and speak with Triage Nurse. Radha Ramirez Ma Let shannon know I'm ok with nursing home and metal control worker consults. Also I sent in a script for the lipitor. I'm hesitant to restart the atenolol. It looks like he has probably been off it for the past 6 months and his BP in the office recently was 112/72. I would want nursing to monitor and up date me in a week or two. Shannon with [facility] PT calling and requesting Longterm and Upper Cutter Machine orders for patient. Please call Shannon back at [phone] with reply. Shannon states she notes 3 [...] Meka Capps RN documented in this encounter [facility] 05-08-2023 History of Present illness Narrative no show. documented in this encounter [facility] 05-07-2023 Instructions Vishal Jones MD [...] day for anxiety. Patient needs to contact [facility] to virgilio a follow up appt with Elli Jimenez for his fractured elbow. Call [phone]. documented in this encounter [facility] 05-07-2023 History of Present illness Narrative Chief Complaint Patient presents with: Hospital F/U HPI Howie Hagen is a 83 year old male who presents here today for hospital follow up. Office visit - hospital follow up Patient was admitted to [facility] on 04/17/2023 after a fall. [...] drive. Is to be getting C through [facility]. Says he has not heard [...] side 60-80% R side 40-60%. Consult to [facility] Bladder stone 09/25/[address] Bagley BPH [...] and hd a partial cystectomy. Colostomy care ([facility]) 09/25/[address] ([facility]) 09/25/2017 Coronary artery disease involving port gra[place] coronary artery 09/25/[address] Siddiqui [id number] DDD (degenerative disc disease), lumbar 12/14/2021 Dementia without behavioral disturbance ([facility]) Seeing Dr Liu Elevated hemoglobin A1c 07/30/2018 Essential hypertension 04/02/2011 Essential tremor 08/16/2019 SALAS (generalized anxiety disorder) 01/01/2023 Generalized weakness 06/18/2019 H/O heart artery stent 09/25/2017 4 stents 1993 History of DVT (deep vein thrombosis) 09/25/2017 1st clot end of Aug 2017, started on Eliquis 09/15/2017 needs to be on till 03/15/2018 S/P colectomy History of [place] (myocardial infarction) 1993 History of prostate cancer seeing Dr. White Hyperlipidemia, mixed 09/25/[address] ([facility]) 06/13/2021 Living will on file at [...] Paroxysmal atrial fibrillation (HCC) s/p colectomy 2016. 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 Vishal Jones MD documented in this encounter [facility] 05-06-2023 Miscellaneous Notes Left detailed message for [facility] Ting. Sylvia Rossi MA Let [facility] know I will follow and sign orders. Ok with delayed start. Ting from [facility] Home Health calling received orders for PT/OT/Speech for patient. Discharged 05/05 from [facility] TCU, falls, fractured left ulna. Asking if PCP would follow patient and sign orders? Asking for delay of care verbal order due to patient having follow up appt scheduled with PCP for 05/07, can not have visit with home health same day with insurance billing. Can not start care until or Friday with the patient. Please advise documented in this encounter [facility] 04-23-2023 History of Present illness Narrative Scan on 04/23/2023 11:50 AM by Kvng Dalal PA-C documented in this encounter [facility] 04-18-2023 History of Present illness Narrative ER/H&P Scan on 04/17/2023 6:48 PM by Kvng Dalal PA-C: Consultation - Emergency Medicine Scan on 04/17/2023 4:09 PM by Kvng Dalal PA-C documented in this encounter [facility] 04-17-2023 History of Present illness Narrative Scan on 04/17/2023 11:20 AM by Provider, GRIS Calderon: X-ray Scan on 04/17/2023 11:18 AM by ProviderKvng PA-C: CT Scan Scan on 04/17/2023 1:22 PM by ProviderKvng PA-C: Ultrasound Scan on 04/17/2023 11:21 AM by ProviderKvng PA-C: X-ray documented in this encounter [facility] 04-02-2023 Miscellaneous Notes Noted. Spoke [...] urine looks clear? documented in this encounter [facility] 04-02-2023 Miscellaneous Notes spoke with [...] to 4 months to assess the cancer. Howie Greenberg DO Pt's daughter Lacey asking Dr. Greenberg if pt has cancer again. Reports pt has memory problems so pt cannot remember what is discussed at OV. Pt's daughter wishes to know long-term plan regarding pt's cancer. Please advise daughter. documented in this encounter [facility] 04-01-2023 History of Present illness Narrative HPI: Howie Hagen is a 82 year old male who presents here today for follow up rectal cancer. H/o CAD ([place] 1993; treated with PCI balloon angioplasty; no stent) and prostate cancer (tx with radiation x44 fx ~8 years ago). He presented to [facility] fall 2016 with symptoms of bowel obstruction. He underwent attempted colonoscopy but the procedure was aborted when the scope was not able to be passed through the rectum/sigmoid area. He was transferred to [facility]. He ultimately underwent a total colectomy along [...] the patient underwent total colectomy in 2017 ([id number]). Colon and Rectum Cancer Case Summary Procedure: [...] down the thigh. He sees a chronic paint tester. Denies fevers or recent illness. Resp:denies cough [...] which included preparing to see the patient, [id number] patient care, completing clinical documentation, obtaining and/or reviewing separately obtained history, performing a medically appropriate examination, counseling and educating the patient/family/caregiver, ordering medications, tests, or procedures, communicating with other HCPs (not separately reported), independently interpreting results (not separately reported), and communicating results to the patient/family/caregiver. Howie Greenberg DO documented in this encounter [facility] 03-27-2023 Instructions Vishal Jones MD - 03/27/2023 10:45 AM EDT Let your daughter know she should go to your appt with Dr. Liu tomorrow. Also it appears Dr. Liu placed a referral to see a neurosurgeon back in November/December and it was never set up by your daughter, though not sure she was aware. documented in this encounter [facility] 03-27-2023 Miscellaneous Notes Recommend formal neuro cognitive evaluation. Will place consult. Requests for any legal documentation should go through legal department. Edmar Liu MD Spoke with daughter and gave her PCP recommendations. Will forward to both providers. Patient's daughter will reach out to their offices. Sylvia Rossi MA Let daughter know that howie sees Dr. Greenberg for his cancer and for his memory issues and that it would be best to get letters from these specialists. Also it's possible the providers will want an official letter from her Dad's legal [place] [employer] [place] with what they are specifically asking. Contacted [...] lead to memory issues Please fax to Lacey (daughter) at: [phone] documented in this encounter [facility] 03-27-2023 History of Present illness Narrative Medicare Yearly Visit Medical B eligibilty date 03/15/17 Date of last exam 03/14/22 PAST MEDICAL HISTORY PAST MEDICAL HISTORY Diagnosis Date A-fib ([facility]) s/p colectomy 2016. 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 Bagley BPH with obstruction/lower urinary tract symptoms BPH with obstruction/lower urinary tract symptoms Dr. Hendrix Chronic midline back pain 10/20/2017 Cog-wheel rigidity 06/18/2019 left upper extrmity, right upper extremity lead piping Cognitive impairment, mild, so stated 06/18/2019 Colon cancer ([facility]) 06/30/[address] Greenberg, Had extension into the bladder wall and hd a partial cystectomy. Colostomy care ([facility]) 09/25/[address] ([facility]) 09/25/2017 Coronary artery disease involving port graham coronary artery 09/25/[address] Huntley-Daysi [id number] Elevated hemoglobin A1c 07/30/2018 Essential hypertension 04/02/2011 Essential tremor 08/16/2019 Generalized weakness 06/18/2019 H/O heart artery stent 09/25/2017 4 stents 1993 History of DVT (deep vein thrombosis) 09/25/2017 1st clot end of Aug 2017, started on Eliquis 09/15/2017 needs to be on till 03/15/2018 S/P colectomy History of [place] (myocardial infarction) 1993 History of prostate cancer [...] Cancer Father Cancer Father skin Heart Mother [place] late 50's Stroke Mother Diabetes Mother SOCIAL HISTORY: SOCIAL HISTORY Social History Tobacco Use Smoking status: Never Smoker Smokeless tobacco: Current User Types: Chew Vaping Use Vaping Use: Never used Substance Use Topics Alcohol use: Yes Alcohol/week: 2.0 standard drinks Types: 2 Shots of liquor per week Drug use: No Howie likes to exercise by walking and staying [...] wishes: Yes I am willing to follow Howie's advanced directives. PHQ-2 / Depression screen Depression [...] Chief Complaint Patient presents with: Pain HPI Howie Hagen is a 83 year old male [...] Liu. Reviewed last appt with her and Howie where neuro discussed getting MRI of back and brain. These were finally completed. His back showed bad disease and has been seeing Dr. Lacy's at [facility] and he wants to take him to surgery however his rectal and large intestine cancer is back and needs addressed first. Since issues with a women in his life causing problems for him he has been more stressed. At times more agitated and sometimes making gestures to his daughter. At times makes the mistake that he is talking with a Lacey (Friend) but it was his daughter (Leida). No hallucinations. Office visit : ER follow up 11/15/2022 Patient was seen in [facility] ER on 10/31/2022 after a [...] History PAST MEDICAL HISTORY Diagnosis Date A-fib ([facility]) s/p colectomy 2016. 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) 06/30/[address] Greenberg, Had extension into the bladder wall and hd a partial cystectomy. Colostomy care ([facility]) 09/25/[address] ([facility]) 09/25/2017 Coronary artery disease involving port graham coronary artery 09/25/[address] Siddiqui [id number] DDD (degenerative disc disease), lumbar 12/14/2021 Elevated hemoglobin A1c 07/30/2018 Essential hypertension 04/02/2011 Essential tremor 08/16/2019 SALAS (generalized anxiety disorder) 01/01/2023 Generalized weakness 06/18/2019 H/O heart artery stent 09/25/2017 4 stents 1993 History of DVT (deep vein thrombosis) 09/25/2017 1st clot end of Aug 2017, started on Eliquis 09/15/2017 needs to be on till 03/15/2018 S/P colectomy History of [place] (myocardial infarction) 1993 History of prostate cancer [...] Cancer Father Cancer Father skin Heart Mother [place] late 50's Stroke Mother Diabetes Mother Patient [...] Lymph 1.00 - 4.00 k/uL 0.87 (L) Weakley% % 8.7 Abs Weakley <0.87 k/uL 0.48 Eosin% % 1.5 Abs [...] per cardio 6. Coronary artery disease involving port graham coronary artery of port graham heart without angina pectoris - ICD9: 414.01, [...] which included preparing to see the patient, [id number] patient care, completing clinical documentation, performing a medically appropriate examination, counseling and educating the patient/family/caregiver and ordering medications, tests, or procedures. Vishal Jones MD documented in this encounter [facility] 03-10-2023 History of Present illness Narrative Radiology Service Progress Note PATIENT NAME: Howie Hagen DATE OF SERVICE: March 10, 2023 [...] 2023 1:49 PM documented in this encounter [facility] 03-10-2023 History of Present illness Narrative Patient is here for IVAD port flush per Nursing [place] protocol. IVAD is located in right upper chest. Site cleansed with Chloraprep IVAD accessed with a #20 gauge 3/4 non-coring Gripper needle Blood Return: Good Flushed with: 20 ml Normal Saline Non-coring needle left intact for CT. Opsite applied to puncture site. Port site negative for redness, edema or tenderness. Patient tolerated procedure well. documented in this encounter [facility] 02-21-2023 Miscellaneous Notes Spoke with patient and rescheduled as requested. Planning to move Dr. Greenberg's 8:30 pt. on 02/25 to ia at 8a.m. on 02/26. Howie will then be put in the [address] Greenberg's schedule at 8:30 on 02/25. Spoke with Fany regarding the above. Ashley Marshall APRN.SOULEYMANE Dr Alphonso English wanted you to know that Howie is done with radiation and he will need follow up appointment with you. documented in this encounter [facility] 01-23-2023 History of Present illness Narrative HOWIE HAGEN [id number] : 1940 01/23/2023 [facility] Department of Radiation Oncology RADIATION ONCOLOGY - COMPLETION NOTE DATE OF SIMULATION: 12/30/22 DATES OF TREATMENT: 01/13/23 - 01/23/23 UNIT: [facility] AREA TREATED: Left iliac node DISEASE: Solitary [...] PM Electronically Signed cc: Vishal Jones [address] [place] [address] Howie Greenberg [address] [facility] [address] documented in this encounter [facility] 01-15-2023 History of Present illness Narrative Radiation Oncology - On Treatment Review (OTR) Note PATIENT NAME: Howie Hagen PATIENT DIAGNOSIS: Solitary regional recurrence in [...] Clement Werner MD documented in this encounter [facility] 01-15-2023 Nurse Note Radiation Therapy - Nursing Note (OTV) PATIENT NAME: Howie Hagen PATIENT January 15, 2023 [facility] FACILITY/LOCATION: [facility] NOTE TYPE: left iliac node Subjective Data No c/o Additional Data Do you want to see a Medical Genetics Director? No Status: Patient is male Stress Scale: [...] Nikole Lamb RN documented in this encounter [facility] 01-02-2023 Miscellaneous Notes TC placed [...] 2023 7:37 PM documented in this encounter [facility] 01-01-2023 History of Present illness Narrative Chief Complaint Patient presents with: Memory Problems Anxiety/Memory HPI Howie Hagen is a 82 year old male who presents here today for Anxiety issues/memory Office visit - Anxiety Patient's daughter here today with concerns about memory and anxiety. She was not aware that he has been seeing Dr. Liu. Reviewed last appt with her and Howie where neuro discussed getting MRI of back and brain. These were finally completed. His back showed bad disease and has been seeing Dr. Lacy's at [facility] and he wants to take him to surgery however his rectal and large intestine cancer is back and needs addressed first. Since issues with a women in his life causing problems for him he has been more stressed. At times more agitated and sometimes making gestures to his daughter. At times makes the mistake that he is talking with a Lacey (Friend) but it was his daughter (Leida). No hallucinations. Office visit : ER follow up 11/15/2022 Patient was seen in [facility] ER on 10/31/2022 after a [...] History PAST MEDICAL HISTORY Diagnosis Date A-fib ([facility]) s/p colectomy 2016. 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 Colostomy care ([facility]) 09/25/[address] ([facility]) 09/25/2017 Coronary artery disease involving port graham coronary artery 09/25/[address] Siddiqui [id number] DDD (degenerative disc disease), lumbar 12/14/2021 Elevated hemoglobin A1c 07/30/2018 Essential hypertension 04/02/2011 Essential tremor 08/16/2019 Generalized weakness 06/18/2019 H/O heart artery stent 09/25/2017 4 stents 1993 History of DVT (deep vein thrombosis) 09/25/2017 1st clot end of Aug 2017, started on Eliquis 09/15/2017 needs to be on till 03/15/2018 S/P colectomy History of [place] (myocardial infarction) 1993 History of prostate cancer seeing Dr. White Hyperlipidemia, mixed 09/25/[address] ([facility]) 06/13/2021 Living will on file at physician's office 09/25/2022 DPA: Roseanne Salinas Goldieantoinette, (daughter) Malignant neoplasm of ascending colon ([facility]) 07/29/2017 Malignant neoplasm of sigmoid colon ([facility]) 07/29/2017 Medicare annual wellness visit, subsequent 07/30/2018 Medicare part B: 03/15/2017 last done: 08/17/2019 Mixed incontinence 02/16/2020 Nerve pain 09/25/2017 Right side hip and up the spine Parastomal hernia without obstruction or gangrene Personal history of colon cancer 12/18/2020 Primary insomnia 01/02/2021 Rectal cancer ([facility]) 10/12/2019 S/P total colectomy 07/16/2017 Secondary malignant neoplasm of large intestine and rectum (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 (c) 1974, 1997 [employer] Used with permission. References: 1. Folstein MF, Folstein SE, [place]. Mini-Mental State: a practical method for grading the cognitive state of patients for the clinician. J Psychiatr Res. 1975; 12:189-198. 2. JR Emre, Pilar VARGAS, Mini-Mental State Examination (MMSE). Psychopharm Bull. 1988;24:689-692. 3. Yoav JT, Anant FJ, Edwin RD, Dylon A, Akanksha F. Neuropsychological function in Alzheimer's disease: pattern of impairment and rates of progression. Arch Neurol. 1988;45:263-268. 4. See JA, Anderson B, Collins S-P, Cole SU. Predictors of cognitive and functional progression in patients with probable Alzheimer's disease. Neurology. 1992;42:1052-6216. Geriatric Depression score: abnormal at 7 Lai's [...] which included preparing to see the patient, dvqu-hy-ppun patient care, completing clinical documentation, performing a medically appropriate examination, counseling and educating the patient/family/caregiver and ordering medications, tests, or procedures. Vishal Jones MD documented in this encounter [facility] 12-30-2022 Nurse Note Radiation Therapy - Patient Education Note PATIENT NAME: Howie Hagen PATIENT December 30, 2022 [facility] FACILITY/LOCATION: [place] READINESS TO LEARN Cognitive Ability: Alert and [...] handouts on Department phone list, Fatigue, and Daysi instructions, XRT sheet and Aquaphor handout. 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 Was approved? unknown Signed by: Nikole Lamb RN documented in this encounter [facility] 12-24-2022 Miscellaneous Notes Spoke to [...] at work. Daughter requesting return call on [phone] Jones's office. Outcome: Informed daughter that I would send communication to Dr. Jones's office with her request. Reason for Disposition [1] Caller is not with the adult (patient) AND [2] probable NON-URGENT symptoms Protocols used: Information Only Call - No [id number] documented in this encounter [facility] 12-20-2022 Nurse Note Radiation Therapy - Nursing Note (Consult) PATIENT NAME: Howie Hagen PATIENT December 20, 2022 [facility] FACILITY/LOCATION: [place] Chief Complaint: Metastatic colon cancer Reason for visit: Consult. Referring physician: Internal provider Dr Greenberg Subjective Data: has spinal stenosis that is causing issues with pain- right low back and down leg, along with neuropathy Additional Data Do you want to see a Medical Genetics Director? No Are you interested in information about fertility? No Status: Patient is male Stress Scale: On a scale of 0 to 10, what number best describes how much distress you have experienced in the past week?(0 being no distress and 10 being extreme distress) 8 Social work notified: Pt denied need to see director social at this time. SIGNED by: Marion Greenberg RN documented in this encounter [facility] 12-20-2022 History of Present illness Narrative Radiation Oncology - New Patient/Consult Note PATIENT NAME: Howie Hagen PATIENT REQUESTING PROVIDER: Dr. Howie Greenberg DIAGNOSIS: Solitary regional recurrence in the [...] with history of prostate cancer diagnosed in 2006 with Flaquita score 6 (3+3), PSA 12 and clinical stage T2b treated with definitive radiation treatment with IMRT to 79.2 Gy in 44 fractions under the care of Dr. Anya Canas. He had stage IIIC multifocal colon [...] Allergies PAST MEDICAL HISTORY Diagnosis Date A-fib ([facility]) s/p colectomy 2016. 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) 09/25/2017 Coronary artery disease involving port graham coronary artery 09/25/[address] Siddiqui [id number] DDD (degenerative disc disease), lumbar 12/14/2021 Elevated hemoglobin A1c 07/30/2018 Essential hypertension 04/02/2011 Essential tremor 08/16/2019 Generalized weakness 06/18/2019 H/O heart artery stent 09/25/2017 4 stents 1993 History of DVT (deep vein thrombosis) 09/25/2017 1st clot end of Aug 2017, started on Eliquis 09/15/2017 needs to be on till 03/15/2018 S/P colectomy History of [place] (myocardial infarction) 1993 History of prostate cancer seeing Dr. White Hyperlipidemia, mixed 09/25/[address] ([facility]) 06/13/2021 Living will on file at physician's office 09/25/2022 DPA: Roseanne Morrisjeremypatrick, (daughter) Malignant neoplasm of ascending colon ([facility]) 07/29/2017 Malignant neoplasm of sigmoid colon ([facility]) 07/29/2017 Medicare annual wellness visit, subsequent 07/30/2018 Medicare part B: 03/15/2017 last done: 08/17/2019 Mixed incontinence 02/16/2020 Nerve pain 09/25/2017 Right side hip and up the spine Parastomal hernia without obstruction or gangrene Personal history of colon cancer 12/18/2020 Primary insomnia 01/02/2021 Rectal cancer (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 Permanent tattoo null will be placed to aid with positioning for daily treatment and the patient consented. Patient will have a simulation procedure within a week. Thank you very much for allowing us to participate in his care. Signed by: Clement Werner MD cc: Vishal Jones [address] [place] [address] oHwie Greenberg [address] [facility] [address] documented in this encounter [facility] 12-18-2022 History of Present illness Narrative Scan on 12/12/2022 7:23 PM by External Provider: X-ray Sylvia Rossi MA documented in this encounter [facility] 12-06-2022 Miscellaneous Notes I spoke with pt's daughter. Her concern is that pt has ankle bractlet on for home arrest thru [facility] and is wondering if we can [...] to call daughter back. Left VM for Lacey to return call. Reviewed PET scan with Dr. Greenberg. Dr. Greenberg reviewed with Dr. Werner. PET scan 12/03/22 showed: Hypermetabolic left common iliac lymph node suspicious for metastases. Please schedule with Dr. Werner to discuss radiation to this area-as long as pt. and daughter agree. Thank you. Ashley Marshall APRN.SOULEYMANE Patient's daughter, Lacey, called to get the results of PET Scan. Please advise. Nora Mansfield documented in this encounter [facility] 12-03-2022 History of Present illness [...] 1103 PATIENT DISCHARGED TO: Ambulatory patient, left [place] department area. A Diagnostic radioactive procedure has taken place, with no further precautions necessary other than routine body substance precautions. More information regarding radiation safety can be found using this link: [email or web address] SIGNATURE: RT Mackenzie(Ever) PATIENT NAME: Howie Hagen DATE: December 03, 2022 TIME: 11:09 AM PAGER/CONTACT #: documented in this encounter [facility] 11-28-2022 Miscellaneous Notes 1st attempt unable to leave a message with patient, to return call to schedule consult with Spine Surgery. Please transfer patient to [phone] as they will need to speak with [...] neuro surgery, requested we contact his daughter, Lacey, for scheduling. Message left with daughter to call office back. Please place order. Karuna Cannon LPN documented in this encounter [facility] 11-27-2022 History of Present illness Narrative Radiology Service Progress Note PATIENT NAME: Howie Hagen DATE OF SERVICE: November 27, 2022 [...] 2022 11:24 AM documented in this encounter [facility] 11-20-2022 Miscellaneous Notes TC to Lacey to inform of below. A letter from Dr. Liu was signed and faxed to public transit trolley driver Nora Ott on October 11 as requested by the family for patient to ankle bracelet removed to have scans completed. (Please see TE 10/01/22). At this point, family needs to contact [facility]'s department or public transit trolley driver's office to clarify what is needed as letter has already been faxed as requested. SHEYLA Putnam Spoke with [facility] dept, they instructed pt. To reschedule MRI. Shreya Villalta LPN message left on daughters work and mobile number . Contacted [facility] dept. Concerning pts. Ankle bracelet, also telephone note sent to inDr. Liu(ordering physician of MRI) that [facility] dept. Needed fax requesting that monitor be removed for procedure (mri) Fax letter to [phone]. Then spoke with Lorin Salinas she stated [...] He was appropriate in conversation. Thank you. Ashley Marshall APRN.RUMPER Please call daughter [phone] after 4 pm or [phone] before 4 pm. Patient's daughter Lacey was transferred directly to Dr. Jones's office. [...] Sylvia Rossi MA documented in this encounter [facility] 11-15-2022 History of Present illness Narrative Chief Complaint Patient presents with: ED Follow-up HPI Howie Hagen is a 82 year old male who presents here today for ER Follow Up.. Patient was seen in [facility] ER on 10/31/2022 after a [...] Diagnosis Date A-fib ([facility]CC) s/p colectomy 2016. 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) 06/30/[address] Greenberg, Had extension into the bladder wall and hd a partial cystectomy. Colostomy care ([facility]) 09/25/[address] ([facility]) 09/25/2017 Coronary artery disease involving port graham coronary artery 09/25/[address] Siddiqui [id number] DDD (degenerative disc disease), lumbar 12/14/2021 Elevated hemoglobin A1c 07/30/2018 Essential hypertension 04/02/2011 Essential tremor 08/16/2019 Generalized weakness 06/18/2019 H/O heart artery stent 09/25/2017 4 stents 1993 History of DVT (deep vein thrombosis) 09/25/2017 1st clot end of Aug 2017, started on Eliquis 09/15/2017 needs to be on till 03/15/2018 S/P colectomy History of NJ (myocardial infarction) 1993 History of prostate cancer seeing Dr. White Hyperlipidemia, mixed 09/25/[address] ([facility]) 06/13/2021 Living will on file at physician's office 09/25/2022 DPA: Roseanne Albert, (daughter) Malignant neoplasm of ascending colon ([facility]) 07/29/2017 Malignant neoplasm of sigmoid colon ([facility]) 07/29/2017 Medicare annual wellness visit, subsequent 07/30/2018 Medicare part B: 03/15/2017 last done: 08/17/2019 Mixed incontinence 02/16/2020 Nerve pain 09/25/2017 Right side hip and up the spine Parastomal hernia without obstruction or gangrene Personal history of colon cancer 12/18/2020 Primary insomnia 01/02/2021 Rectal cancer ([facility]) 10/12/2019 S/P total colectomy 07/16/2017 Secondary malignant neoplasm of large intestine and rectum ([facility]) 12/24/2019 Situational depression 08/17/2019 Resolved as of [...] Cancer Father Cancer Father skin Heart Mother [place] late 50's Stroke Mother Diabetes Mother Patient [...] Vishal Jones MD documented in this encounter [facility] 11-08-2022 Miscellaneous Notes Patient's daughter notified that patient had not been seen here at this office. Sylvia Rossi MA Let daughter know Howie was not seen in my office on [...] letter to patient's daughter if possible at [phone] or call her on her cell or work number at [phone] if more information Is required. documented in this encounter [facility] 11-07-2022 History of Present illness [...] Completed: Abdomen/Pelvis SIGNATURE: RT Arturo(R) PATIENT NAME: Howie Hagen DATE: November 07, 2022 TIME: 4:16 PM documented in this encounter [facility] 11-07-2022 History of Present illness Narrative Patient is here for IVAD port flush/blood draw per [facility] [place] protocol. IVAD is located in left upper [...] tolerated procedure well. documented in this encounter [facility] 11-01-2022 History of Present illness [...] Sylvia Rossi MA documented in this encounter [facility] 10-28-2022 Miscellaneous Notes Patient has [...] Brenda Najera Pss documented in this encounter [facility] 10-21-2022 History of Present illness Narrative ESTABLISHED PATIENT VISIT CHIEF COMPLAINT: Follow Up HISTORY OF PRESENT ILLNESS: Howie Hagen is a 82 year old male, [...] Diagnosis Date A-fib (HCC) s/p colectomy 2016. 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) 06/30/[address] Greenberg, Had extension into the bladder wall and hd a partial cystectomy. Colostomy care ([facility]) 09/25/[address] ([facility]) 09/25/2017 Coronary artery disease involving port [place] coronary artery 09/25/[address] Siddiqui [id number] DDD (degenerative disc disease), lumbar 12/14/2021 Elevated hemoglobin A1c 07/30/2018 Essential hypertension 04/02/2011 Essential tremor 08/16/2019 Generalized weakness 06/18/2019 H/O heart artery stent 09/25/2017 4 stents 1993 History of DVT (deep vein thrombosis) 09/25/2017 1st clot end of Aug 2017, started on Eliquis 09/15/2017 needs to be on till 03/15/2018 S/P colectomy History of NJ (myocardial infarction) 1993 History of prostate cancer seeing Dr. White Hyperlipidemia, mixed 09/25/[address] ([facility]) 06/13/2021 Living will on file at physician's office 09/25/2022 DPA: Roseanne Albert, (daughter) Malignant neoplasm of ascending colon ([facility]) 07/29/2017 Malignant neoplasm of sigmoid colon ([facility]) 07/29/2017 Medicare annual wellness visit, subsequent [...] Cancer Father Cancer Father skin Heart Mother [place] late 50's Stroke Mother Diabetes Mother SOCIAL [...] that could be contributing to cognitive complaints. Edmar Liu MD I spent a total of 23 minutes on the date of the service which included preparing to see the patient, [id number] patient care, completing clinical documentation, obtaining and/or reviewing separately obtained history, performing a medically appropriate examination, and counseling and educating the patient/family/caregiver. documented in this encounter [facility] 10-11-2022 Miscellaneous Notes Signed letter faxed to numbers provided below as requested. SHEYLA Putnam TC to Dontrell Humphrey to clarify what needs to be documented in the letter for patient to receive MRI. Cora stated the GPS bracelet needs to be removed for the patient to complete an MRI and that the MRI is necessary for the patients help based on the Drs recommendation. The letter can then be faxed to the public transit trolley driver below. Please advise. Thank you. SHEYLA Putnam Please reach out to the number attached and clarify what is needed. Thank you, Edmar Liu MD Received telephone call from [place] it field technician Cora. Tech stated patient unable to complete [...] is written fax letter to patient's public transit trolley driver Nora Ott. Nora's fax: [phone] ATTN: Nora Ott Please review & advise. [...] Pt to follow up after tests complete. Edmar Liu MD documented in this encounter [facility] 10-09-2022 History of Present illness Narrative Chief Complaint Patient presents with: Rash: Patient is here for rash on both legs below the knee x 4 days HPI Howie Hagen is a 82 year old male who presents here today for rash on both legs below knee x 4 days . Denies any new contacts. Has been trying some lotion daily with no improvement No shortness of breath or wheezing Past medical history, appointments, medications, allergies reviewed. Previous Medical History PAST MEDICAL HISTORY Diagnosis Date A-fib ([facility]) s/p colectomy 2016. 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 Consult to [facility] Bladder stone 09/25/[address] Bagley BPH with obstruction/lower urinary tract symptoms BPH with obstruction/lower urinary tract symptoms Dr. Hendrix Calculus of gallbladder with chronic cholecystitis without obstruction 06/13/2021 Chronic midline back pain 10/20/2017 Cog-wheel rigidity 06/18/2019 left upper extrmity, right upper extremity lead piping Cognitive impairment, mild, so stated 06/18/2019 Colon cancer ([facility]) 06/30/[address] Greebnerg, Had extension into the bladder wall and hd a partial cystectomy. Colostomy care ([facility]) 09/25/[address] ([facility]) 09/25/2017 Coronary artery disease involving port [place] coronary artery 09/25/[address] Siddiqui [id number] DDD (degenerative disc disease), lumbar 12/14/2021 Elevated hemoglobin A1c 07/30/2018 Essential hypertension 04/02/2011 Essential tremor 08/16/2019 Generalized weakness 06/18/2019 H/O heart artery stent 09/25/2017 4 stents 1993 History of DVT (deep vein thrombosis) 09/25/2017 1st clot end of Aug 2017, started on Eliquis 09/15/2017 needs to be on till 03/15/2018 S/P colectomy History of [place] (myocardial infarction) 1993 History of prostate cancer [...] Cancer Father Cancer Father skin Heart Mother [place] late 50's Stroke Mother Diabetes Mother Patient [...] Vishal Jones MD documented in this encounter [facility] 10-09-2022 Miscellaneous Notes Patient came in to the office for unrelated reasons so I went ahead and scheduled the below appointments with him. Vashti Burgos Pss Pt. no showed for OV in August. Reviewed CT with Dr. Greenberg. Please schedule CT abd/pelvis end of Oct/early November to follow up on CT from August 2022. OV with CBC/BMP/LFT's/CEA after above. Thank you. Ashley Marshall APRN.RUMPER documented in this encounter [facility] 09-30-2022 Miscellaneous Notes The following [...] repeat. Order placed. documented in this encounter [facility] 09-25-2022 History of Present illness Narrative Chief Complaint Patient presents with: Follow Up: Patient is here for 4 month follow up HPI Howie Hagen is a 82 year old male [...] in the PM. Seeing Dr. Small at [facility]. Seeing Dr. Krause in vascular and Dr. Liu in neurology. Past medical history, appointments, medications, allergies reviewed. Previous Medical History PAST MEDICAL HISTORY Diagnosis Date A-fib (HCC) s/p colectomy 2016. 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) 06/30/[address] Greenberg, Had extension into the bladder wall and hd a partial cystectomy. Colostomy care ([facility]) 09/25/[address] ([facility]) 09/25/2017 Coronary artery disease involving port [place] coronary artery 09/25/[address] Siddiqui [id number] Elevated hemoglobin A1c 07/30/2018 Essential hypertension 04/02/2011 Essential tremor 08/16/2019 Generalized weakness 06/18/2019 H/O heart artery stent 09/25/2017 4 stents 1993 History of DVT (deep vein thrombosis) 09/25/2017 1st clot end of Aug 2017, started on Eliquis 09/15/2017 needs to be on till 03/15/2018 S/P colectomy History of [place] (myocardial infarction) 1993 History of prostate cancer [...] Cancer Father Cancer Father skin Heart Mother [place] late 50's Stroke Mother Diabetes Mother Patient [...] Abs Lymph 1.00 - 4.00 k/uL 1.00 Weakley% % 8.6 Abs Weakley <0.87 k/uL 0.68 Eosin% % 1.4 Abs [...] check A1c 4. Coronary artery disease involving port [place] coronary artery of [place] heart without angina pectoris - ICD9: 414.01, [...] Vishal Jones MD documented in this encounter [facility] 09-23-2022 History of Present illness Narrative Images from the original note were not included. Brittny Gonzalez MD General Surgery [address], [address] [place], [place] [address] Patient referred by: Maye Gonzalez [address] [facility] [address] HPI: Mr. Hagen is a 82 year [...] 2.5. PAST MEDICAL HISTORY Diagnosis Date A-fib ([facility]) s/p colectomy 2016. 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) 06/30/[address] Greenberg, Had extension into the bladder wall and hd a partial cystectomy. Colostomy care ([facility]) 09/25/[address] ([facility]) 09/25/2017 Coronary artery disease involving port [place] coronary artery 09/25/[address] Siddiqui [id number] Elevated hemoglobin A1c 07/30/2018 Essential hypertension 04/02/2011 Essential tremor 08/16/2019 Generalized weakness 06/18/2019 H/O heart artery stent 09/25/2017 4 stents 1993 History of DVT (deep vein thrombosis) 09/25/2017 1st clot end of Aug 2017, started on Eliquis 09/15/2017 needs to be on till 03/15/2018 S/P colectomy History of [place] (myocardial infarction) 1993 History of prostate cancer [...] Cancer Father Cancer Father skin Heart Mother [place] late 50's Stroke Mother Diabetes Mother Social [...] in LLQ-small amount of semiformed formed stool [place] mucosa; vague bulge underneath this but not [...] or gangrene K43.[address] ([facility]) Z93.[address] ([facility]) Z93.2 4. Paroxysmal atrial fibrillation ([facility]) I48.0 5. History of colon cancer Z85.038 6. Parastomal hernia without obstruction or gangrene K43.5 (K43.9) Ventral hernia without obstruction or gangrene (primary encounter diagnosis) Comment: Stable Plan: We will continue to follow (Z93.2) Ileostomy in place ([facility]) Comment: stable Has a parastomal hernia but [...] This office note has been created using [employer], a speech recognition software program, and may contain errors including punctuation, grammar, spelling, gender, and inappropriate words or phrases that pertain to the sytem. documented in this encounter [facility] 09-13-2022 Miscellaneous Notes Patient identified by name and date of . I advised patient the urine culture showed that macrobid would likely be ineffective to treat his UTI. He states he is still having some dysuria. Bactrim sent to his pharmacy, patient advised to stop Macrobid and start Bactrim. He verbalized understanding. Kassandra Grady APRN.SOULEYMANE documented in this encounter [facility] 09-10-2022 Miscellaneous Notes BJ with [facility] called in states the Pts phone wasn't working. Pt states he was having UTI like issues. He was having leaking and pain with urination. Let her know there were no open appointments and to have him come to EC. Let her know [facility] is open until 8 pm. documented in this encounter [facility] 08-27-2022 Miscellaneous Notes Form faxed to Form signed. Paperwork received and given to PCP for review. Sylvia Rossi MA [facility] calling and states they will be faxing request for supplies for patient to PCP office and confirming fax number. Fax number verified. Meka Capps RN documented in this encounter [facility] 08-21-2022 History of Present illness Narrative Radiology Service Progress Note PATIENT NAME: Howie Hagen DATE OF SERVICE: August 21, 2022 [...] PERIPHERAL IV DATA: power port accessed by [employer] SIGNED BY: RT Arturo(R) August 21, 2022 2:52 PM documented in this encounter [facility] 08-19-2022 History of Present illness Narrative ESTABLISHED PATIENT VISIT CHIEF COMPLAINT: Follow Up HISTORY OF PRESENT ILLNESS: Howie Hagen is a 82 year old male, [...] patient undergo an in-lab PSG. Pt requests [facility]. 7. Cognitive impairment - ICD9: [...] HISTORIES PAST MEDICAL HISTORY Diagnosis Date A-fib ([facility]) s/p colectomy 2016. 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 Consult to [facility] Bladder stone 09/25/[address] Bagley BPH with obstruction/lower urinary tract symptoms BPH with obstruction/lower urinary tract symptoms Dr. Hendrix Chronic midline back pain 10/20/2017 Cog-wheel rigidity 06/18/2019 left upper extrmity, right upper extremity lead piping Cognitive impairment, mild, so stated 06/18/2019 Colon cancer ([facility]) 06/30/[address] Greenberg, Had extension into the bladder wall and hd a partial cystectomy. Colostomy care ([facility]) 09/25/[address] ([facility]) 09/25/2017 Coronary artery disease involving port [place] coronary artery 09/25/[address] Huntley-[facility] [id number] Elevated hemoglobin A1c 07/30/2018 Essential hypertension 04/02/2011 Essential tremor 08/16/2019 Generalized weakness 06/18/2019 H/O heart artery stent 09/25/2017 4 stents 1993 History of DVT (deep vein thrombosis) 09/25/2017 1st clot end of Aug 2017, started on Eliquis 09/15/2017 needs to be on till 03/15/2018 S/P colectomy History of [place] (myocardial infarction) 1993 History of prostate cancer seeing Dr. White Hyperlipidemia, mixed 09/25/2017 Malignant neoplasm of ascending colon ([facility]) 07/29/2017 Malignant neoplasm of sigmoid colon ([facility]) 07/29/2017 Medicare annual wellness visit, subsequent [...] Cancer Father Cancer Father skin Heart Mother [place] late 50's Stroke Mother Diabetes Mother SOCIAL [...] dysarthria; comprehension, naming, repetition intact. Serial 7s [id number]. Similarity of objects: 2/2. Clock drawing intact. [...] Pt to follow up after tests complete. Edmar Liu MD I spent a total of 30 minutes on the date of the service which included preparing to see the patient, [id number] patient care, completing clinical documentation, obtaining and/or reviewing separately obtained history, performing a medically appropriate examination, counseling and educating the patient/family/caregiver, independently interpreting results (not separately reported), and communicating results to the patient/family/caregiver. documented in this encounter [facility] 07-29-2022 Miscellaneous Notes Patient has [...] need to notify patient. Sylvia Rossi MA Edgar; 04/2022 Nov: 09/2022 Last refill: 01/2022 Patient [...] Beverley Duff Pss documented in this encounter [facility] 07-24-2022 History of Present illness Narrative Chief Complaint Patient presents with: Pain: ER follow up on - fall on left shoulder/elbow HPI Howie Hagen is a 82 year old male who presents here today for ER Follow Up.. Patient also mentioned right hip pain and issues with urinating. Patient presented to [facility] ER on 07/15/2022 after having [...] the fall and no worse. He saw [facility] in November and they had discussed surgery [...] History PAST MEDICAL HISTORY Diagnosis Date A-fib ([facility]) s/p colectomy 2016. 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 Consult to [facility] Bladder stone 09/25/[address] Bagley BPH with obstruction/lower urinary tract symptoms BPH with obstruction/lower urinary tract symptoms Dr. Hendrix Chronic midline back pain 10/20/2017 Cog-wheel rigidity 06/18/2019 left upper extrmity, right upper extremity lead piping Cognitive impairment, mild, so stated 06/18/2019 Colon cancer ([facility]) 06/30/[address] Greenberg, Had extension into the bladder wall and hd a partial cystectomy. Colostomy care ([facility]) 09/25/[address] ([facility]) 09/25/2017 Coronary artery disease involving port [place] coronary artery 09/25/[address] [facility] [id number] Elevated hemoglobin A1c 07/30/2018 Essential hypertension 04/02/2011 Essential tremor 08/16/2019 Generalized weakness 06/18/2019 H/O heart artery stent 09/25/2017 4 stents 1993 History of DVT (deep vein thrombosis) 09/25/2017 1st clot end of Aug 2017, started on Eliquis 09/15/2017 needs to be on till 03/15/2018 S/P colectomy History of [place] (myocardial infarction) 1993 History of prostate cancer seeing Dr. White Hyperlipidemia, mixed 09/25/2017 Malignant neoplasm of ascending colon ([facility]) 07/29/2017 Malignant neoplasm of sigmoid colon ([facility]) 07/29/2017 Medicare annual wellness visit, subsequent [...] Cancer Father Cancer Father skin Heart Mother [place] late 50's Stroke Mother Diabetes Mother Patient [...] VACCINE Completed PNEUMOCOCCAL: 65+ Completed Data reviewed [facility] report from 07/15/2022 Component Latest Ref [...] Patient instructed on care. - referral to [place] [facility]. 2. Dysuria - ICD9: 788.1, ICD10: R30.0 acute - UA positive for dennise esterase and hematuria - Patient education for prevention given 3. Acute cystitis with hematuria - ICD9: 595.0, ICD10: N30.01 - as above - URINALYSIS, WITH MICROSCOPIC - check culture - treat with antibiotic as below 4. Arthritis of right hip - ICD9: 716.95, ICD10: M16.11 - CONSULT TO ORTHOPAEDICS: [facility] 5. Arthritis, lumbar spine - ICD9: 721.3, ICD10: M47.816 - CONSULT TO ORTHOPAEDICS Requested Prescriptions Signed Prescriptions Disp Refills cefADROxil (DURICEF) 500 mg capsule 20 capsule 0 Sig: Take 1 capsule by mouth twice daily. Vishal Jones MD documented in this encounter [facility] 07-15-2022 History of Present illness [...] for full evaluation. documented in this encounter [facility] 06-20-2022 History of Present illness Narrative Patient is here for IVAD port flush/blood draw per [facility] [place] protocol. IVAD is located in right upper [...] tolerated procedure well. documented in this encounter [facility] 06-06-2022 Miscellaneous Notes The following [...] advise. Leonid Ward documented in this encounter [facility] 05-15-2022 Instructions Vishal Jones MD - 05/15/2022 10:34 AM EDT Howie please contact your orthopedic spine providers office and let them know you saw vascular (Dr. Jeanne Oneal with [facility] up [facility]) on 03/26/2022. documented in this encounter [facility] 05-15-2022 History of Present illness Narrative Chief Complaint Patient presents with: Recheck HPI Howie Hagen is a 82 year old male [...] lower extremity weakness. A friend of his (Jenelle) is here with him today and tries [...] Diagnosis Date A-fib (HCC) s/p colectomy 2016. 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 Huntlye-LAst visit 01/2019 Arthritis of right hip 09/25/2017 Arthritis, lumbar spine 09/25/2017 Bladder stone 09/25/[address] Bagley BPH with obstruction/lower urinary tract symptoms BPH with obstruction/lower urinary tract symptoms Dr. Hendrix Chronic midline back pain 10/20/2017 Cog-wheel rigidity 06/18/2019 left upper extrmity, right upper extremity lead piping Cognitive impairment, mild, so stated 06/18/2019 Colon cancer ([facility]) 06/30/[address] Greenberg, Had extension into the bladder wall and hd a partial cystectomy. Colostomy care ([facility]) 09/25/[address] ([facility]) 09/25/2017 Coronary artery disease involving port [place] coronary artery 09/25/[address] Siddiqui [id number] Elevated hemoglobin A1c 07/30/2018 Essential hypertension 04/02/2011 Essential tremor 08/16/2019 Generalized weakness 06/18/2019 H/O heart artery stent 09/25/2017 4 stents 1993 History of DVT (deep vein thrombosis) 09/25/2017 1st clot end of Aug 2017, started on Eliquis 09/15/2017 needs to be on till 03/15/2018 S/P colectomy History of [place] (myocardial infarction) 1993 History of prostate cancer [...] cancer 12/18/2020 Primary insomnia 01/02/2021 Rectal cancer ([facility]) 10/12/2019 S/P total colectomy 07/16/2017 Secondary malignant [...] Cancer Father Cancer Father skin Heart Mother [place] late 50's Stroke Mother Diabetes Mother Patient [...] which included preparing to see the patient, [id number] patient care, completing clinical documentation, performing a medically appropriate examination, counseling and educating the patient/family/caregiver and ordering medications, tests, or procedures. Vishal Jones MD documented in this encounter [facility] 05-06-2022 History of Present illness Narrative Episode Visit Count: 6 Therapist That Will Oversee The Plan Of Care: Chase Westbrook Start of Care Date: 03/25/22 Onset Date: 03/25/21 Plan of Care Certification Date: 04/30/22 Next Certification Due Date: 06/04/22 Patient Identified by Name and Date of : Yes [facility] PHYSICAL THERAPY TREATMENT NOTE ASSESSMENT: Howie Hagen tolerated the session with no issues. [...] Chase Westbrook PT documented in this encounter [facility] 04-30-2022 History of Present illness Narrative Episode Visit Count: 5 Therapist That Will Oversee The Plan Of Care: Chase Westbrook Start of Care Date: 03/25/22 Onset Date: 03/25/21 Plan of Care Certification Date: 04/30/22 Next Certification Due Date: 06/04/22 Patient Identified by Name and Date of : Yes REHABILITATION AND SPORTS THERAPY PHYSICAL THERAPY PROGRESS REPORT PLAN OF CARE UPDATE: Assessment: Howie Hagen demonstrates improvements in LE functional strength [...] Patient to be seen for Therapeutic exercise (70384);Neuromuscular re-education (72300);Manual therapy (49800);Therapeutic activities (50453);Self-mcc management (70754);Patient/Family/Caregiver Education;Gait Training (38963) PLAN FOR NEXT VISIT: Progress LE strengthening. elisha Chaney, DAVID SUBJECTIVE: Patient Reason for Visit: Pt states [...] Chase Westbrook PT documented in this encounter [facility] 04-18-2022 History of Present illness Narrative Episode Visit Count: 4 Therapist That Will Oversee The Plan Of Care: Chase Westbrook Start of Care Date: 03/25/22 Onset Date: 03/25/21 Plan of Care Certification Date: 03/25/22 Next Certification Due Date: 04/29/22 Patient Identified by Name and Date of : Yes REHABILITATION AND SPORTS THERAPY PHYSICAL THERAPY TREATMENT NOTE ASSESSMENT: Howie Hagen tolerated the session with expected muscle [...] Chase Westbrook PT documented in this encounter [facility] 03-28-2022 History of Present illness Narrative Episode Visit Count: 2 Therapist That Will Oversee The Plan Of Care: Chase Westbrook Start of Care Date: 03/25/22 Onset Date: 03/25/21 Plan of Care Certification Date: 03/25/22 Next Certification Due Date: 04/29/22 Patient Identified by Name and Date of : Yes REHABILITATION AND SPORTS THERAPY PHYSICAL THERAPY TREATMENT NOTE ASSESSMENT: Howie Hagen tolerated the session with no issues. [...] Chase Westbrook PT documented in this encounter [facility] 03-26-2022 History of Present illness Narrative Images from the original note were not included. Heart, Vascular and Thoracic [place] DEPARTMENT OF VASCULAR SURGERY OUTPATIENT VISIT DATE March 26, 2022 OUTPATIENT VISIT TYPE CONSULTATION SERVICE DATE: 03/26/2022 SERVICE TIME: 8:43 AM PRIMARY CARE PHYSICIAN: Vishal Jones MD REFERRING PROVIDER: Sharda Carl [address] [facility] [place] [address] Consult requested for an opinion regarding the [...] handed PAST MEDICAL HISTORY Diagnosis Date A-fib ([facility]) s/p colectomy 2016. 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 Bagley BPH with obstruction/lower urinary tract symptoms BPH with obstruction/lower urinary tract symptoms Dr. Hendrix Chronic midline back pain 10/20/2017 Cog-wheel rigidity 06/18/2019 left upper extrmity, right upper extremity lead piping Cognitive impairment, mild, so stated 06/18/2019 Colon cancer ([facility]) 06/30/[address] Greenberg, Had extension into the bladder wall and hd a partial cystectomy. Colostomy care ([facility]) 09/25/[address] ([facility]) 09/25/2017 Coronary artery disease involving [place] coronary artery 09/25/[address] Siddiqui [id number] Elevated hemoglobin A1c 07/30/2018 Essential hypertension 04/02/2011 Essential tremor 08/16/2019 Generalized weakness 06/18/2019 H/O heart artery stent 09/25/2017 4 stents 1993 History of DVT (deep vein thrombosis) 09/25/2017 1st clot end of Aug 2017, started on Eliquis 09/15/2017 needs to be on till 03/15/2018 S/P colectomy History of [place] (myocardial infarction) 1993 History of prostate cancer [...] Cancer Father Cancer Father skin Heart Mother [place] late 50's Stroke Mother Diabetes Mother MEDICATIONS: [...] and cholesterol control Medical Decision Making SIGNATURE: Jeanne Oneal DO PATIENT NAME: Howie Hagen DATE: March 26, 2022 TIME: 8:43 AM documented in this encounter [facility] 03-25-2022 History of Present illness Narrative Images from the original note were not included. Brittny Gonzalez MD General Surgery [address] [place] [address], [address] [place] [address] Patient referred by: Maye Gonzalez [address] [place] [address] HPI: Mr. Hagen is a 82 year [...] issues. PAST MEDICAL HISTORY Diagnosis Date A-fib ([facility]) s/p colectomy 2016. 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 Bagley BPH with obstruction/lower urinary tract symptoms BPH with obstruction/lower urinary tract symptoms Dr. Hendrix Chronic midline back pain 10/20/2017 Cog-wheel rigidity 06/18/2019 left upper extrmity, right upper extremity lead piping Cognitive impairment, mild, so stated 06/18/2019 Colon cancer ([facility]) 06/30/[address] Greenberg, Had extension into the bladder wall and hd a partial cystectomy. Colostomy care ([facility]) 09/25/[address] ([facility]) 09/25/2017 Coronary artery disease involving [place] coronary artery 09/25/[address] Siddiqui [id number] Elevated hemoglobin A1c 07/30/2018 Essential hypertension 04/02/2011 Essential tremor 08/16/2019 Generalized weakness 06/18/2019 H/O heart artery stent 09/25/2017 4 stents 1993 History of DVT (deep vein thrombosis) 09/25/2017 1st clot end of Aug 2017, started on Eliquis 09/15/2017 needs to be on till 03/15/2018 S/P colectomy History of [place] (myocardial infarction) 1993 History of prostate cancer [...] Cancer Father Cancer Father skin Heart Mother [place] late 50's Stroke Mother Diabetes Mother Social [...] This office note has been created using [employer], a speech recognition software program, and may contain errors including punctuation, grammar, spelling, gender, and inappropriate words or phrases that pertain to the sytem. documented in this encounter [facility] 03-21-2022 History of Present illness Narrative Chief Complaint Patient presents with: Established Patient HPI: Howie Hagen is a 82 year old male who presents here today for follow up rectal cancer. Per Dr. Greenberg's previous note: H/o CAD ([place] 1993; treated with PCI balloon angioplasty; no stent) and prostate cancer (tx with radiation x44 fx ~8 years ago). He presented to [facility] fall 2016 with symptoms of bowel obstruction. He underwent attempted colonoscopy but the procedure was aborted when the scope was not able to be passed through the rectum/sigmoid area. He was transferred to [facility]. He ultimately underwent a total colectomy along [...] the patient underwent total colectomy in 2017 ([id number]). Colon and Rectum Cancer Case Summary Procedure: [...] Lymph 1.00 - 4.00 k/uL 1.24 1.03 Weakley% % 9.9 8.1 Abs Weakley <0.87 k/uL 0.70 0.61 Eosin% % 2.0 [...] and edited as necessary for today's visit. Ashley Marshall APRN.SOULEYMANE documented in this encounter [facility] 03-21-2022 Nurse Note Est. Pt. Discuss recent labs and CT results. Shreya Villalta LPN documented in this encounter [facility] 03-08-2022 Miscellaneous Notes noted Patient [...] Sharda for 03/12/22. documented in this encounter [facility] 02-26-2022 History of Present illness Narrative Blood return verified. Gripper hooked to auto-injector. Ct completed. Line flushed with 20cc NSS and 5cc Heparin. Gripper D/C'd. Light dressing applied. Pt tolerated procedure well. No C/O's. Site without complication noted. Deepika Gavin RN documented in this encounter [facility] 02-26-2022 History of Present illness Narrative Radiology Service Progress Note PATIENT NAME: Howie Hagen DATE OF SERVICE: February 26, 2022 [...] accessed by hemoc SIGNED BY: RT Arturo(R) February 26, 2022 2:04 PM documented in this encounter [facility] 02-06-2022 Miscellaneous Notes Pt called [...] this issue in early March. Also advise Howie that when he sees vascular to ask if he can proceed with his back surgery. [facility]- Dr. Vishal Small office, reports patient informed them he has blockage in carotids. Asking if patient is still cleared for surgery tomorrow. Please phone [facility] with reply: [phone] Patient calling he is scheduled for back surgery tomorrow at [facility] per Dr Small. Patient asking if he is safe to have surgery done since he has carotid blockages? Patient does not know what time he is scheduled for yet. He said he is to be staying overnight at [facility]. Please advise documented in this encounter [facility] 01-31-2022 Miscellaneous Notes Patient notified. Verbalized understanding. ----- Message from Sharda Carl PA-C sent at 01/31/2022 8:45 AM EDT ----- Labs are normal. documented in this encounter [facility] 01-22-2022 History of Present illness Narrative Scan on 01/22/2022 11:12 AM by External Provider: Echo documented in this encounter [facility] 01-17-2022 Miscellaneous Notes Pt notified to contact Dr. Tena's office. He stated [facility] states that they will not do anything for pain till his surgery. Yeni Moore Ma Patient needs to discuss with specialists. He is also seeing [facility] Caball[facility]. Dr. Jones are you wanting to see this pt for hip pain, 05/25. Checking with you first if you advise an appt or suggest pt follow with Specialist. Pt currently see's Pain Management, Sapphire Perez and Dr. Rosas. He is on Buprenorphine 7.5 mcg patch weekly and Gabapentin 300 mg twice daily. Advise. Radha Ramirez Ma Howie Hagen is calling Vishal Jones MD today he is calling: Pain level 9; requesting pain medication for right hip; stated he really needs something as soon as possible today. Patient has been identified by name and birthdate. Duration of symptoms: N/A Person calling: self Call patient at: at home [phone] (home) [phone] (cell) Was an appointment scheduled: No Closing statement: Symptom Call: Thank you for calling [facility], your call is very important. A nurse will call in approximately 2-4 hours during business hours. If this is an emergency, please contact 911. Beverley Garrett documented in this encounter [facility] 01-08-2022 Miscellaneous Notes Spoke to patient and friend jenelle and went over provider message. Friend jenelle will check medication and call pharmacy if needing refills. Alejandra Farmer Ma Let patient know when I last seen him on 12/08/2021 I wanted him to continue the mirtazapine 30 mg before bed and the Hydroxyzine 10 mg he could take up to 3 times a day as needed for anxiety. Both meds were sent to [facility]. Attempted to contact patient; no answer; no voicemail. Provider sent to pharmacy 12/08/2021 Hydroxyzine for anxiety. Sylvia Rossi MA Howie Hagen is calling Vishal Jones MD today he is calling and asking about a medication that the doctor told him he would have sent to his pharmacy for anxiety/depression. He does not know the name of the medication. Please call the patient. Patient has been identified by name and birthdate. Duration of symptoms: N/A Person calling: self Call patient at: at home [phone] (home) [phone] (cell) Was an appointment scheduled: No Closing statement: Results or non-symptom based questions: Thank you for calling [facility], your call will be returned within the next business day. Beverley Garrett documented in this encounter [facility] 12-14-2021 Instructions Sharda Carl PA-C - 12/14/2021 9:33 AM EDT Please get labs done. Can try Aquaphor at night to help moisturize skin. Follow up as scheduled otherwise. documented in this encounter [facility] 12-14-2021 History of Present illness Narrative Chief Complaint Patient presents with: Pre-Op Exam HPI Howie Hagen is a 81 year old male [...] History PAST MEDICAL HISTORY Diagnosis Date A-fib ([facility]) s/p colectomy 2016. 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 Bagley BPH with obstruction/lower urinary tract symptoms BPH with obstruction/lower urinary tract symptoms Dr. Hendrix Chronic midline back pain 10/20/2017 Cog-wheel rigidity 06/18/2019 left upper extrmity, right upper extremity lead piping Cognitive impairment, mild, so stated 06/18/2019 Colon cancer ([facility]) 06/30/[address] Greenberg, Had extension into the bladder wall and hd a partial cystectomy. Colostomy care ([facility]) 09/25/[address] ([facility]) 09/25/2017 Coronary artery disease involving [place] coronary artery 09/25/[address] Siddiqui [id number] Elevated hemoglobin A1c 07/30/2018 Essential hypertension 04/02/2011 Essential tremor 08/16/2019 Generalized weakness 06/18/2019 H/O heart artery stent 09/25/2017 4 stents 1993 History of DVT (deep vein thrombosis) 09/25/2017 1st clot end of Aug 2017, started on Eliquis 09/15/2017 needs to be on till 03/15/2018 S/P colectomy History of [place] (myocardial infarction) 1993 History of prostate cancer [...] Cancer Father Cancer Father skin Heart Mother [place] late 50's Stroke Mother Diabetes Mother Patient [...] See above. 3. Coronary artery disease involving [place] coronary artery of [place] heart without angina pectoris - ICD9: 414.01, ICD10: I25.10 Continue with cardio 4. Paroxysmal atrial fibrillation (HCC) - ICD9: 427.31, ICD10: I48.0 Continue with cardio 5. Elevated hemoglobin A1c - ICD9: 790.29, ICD10: R73.09 Check labs 6. Hyperlipidemia, mixed - ICD9: 272.2, ICD10: E78.2 Await labs. Sharda Carl PA-C documented in this encounter [facility] 12-10-2021 History of Present illness Narrative Patient is here for IVAD port flush per Nursing [place] protocol. IVAD is located in right upper chest. Site cleansed with Chloraprep IVAD accessed with a #20 gauge 3/4 non-coring Gripper needle Blood Return: Good Flushed with: 20 ml Normal Saline and 5 ml Heparin Lock Flush Non-coring needle removed. Paper tape applied to puncture site. Port site negative for redness, edema or tenderness. Patient tolerated procedure well. documented in this encounter [facility] 12-08-2021 History of Present illness Narrative Chief Complaint Patient presents with: Recheck: depression HPI Howie Hagen is a 81 year old male [...] Right lower back still bothering him. Seeing [facility]. Plan is for surgery in the near future. Past medical history, appointments, medications, allergies reviewed. Previous Medical History PAST MEDICAL HISTORY Diagnosis Date A-fib ([facility]) s/p colectomy 2016. 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 Bagley BPH with obstruction/lower urinary tract symptoms BPH with obstruction/lower urinary tract symptoms Dr. Hendrix Chronic midline back pain 10/20/2017 Cog-wheel rigidity 06/18/2019 left upper extrmity, right upper extremity lead piping Cognitive impairment, mild, so stated 06/18/2019 Colon cancer ([facility]) 06/30/[address] Greenberg, Had extension into the bladder wall and hd a partial cystectomy. Colostomy care ([facility]) 09/25/[address] ([facility]) 09/25/2017 Coronary artery disease involving [place] coronary artery 09/25/[address] Siddiqui [id number] Elevated hemoglobin A1c 07/30/2018 Essential hypertension 04/02/2011 Essential tremor 08/16/2019 Generalized weakness 06/18/2019 H/O heart artery stent 09/25/2017 4 stents 1993 History of DVT (deep vein thrombosis) 09/25/2017 1st clot end of Aug 2017, started on Eliquis 09/15/2017 needs to be on till 03/15/2018 S/P colectomy History of [place] (myocardial infarction) 1993 History of prostate cancer seeing Dr. White Hyperlipidemia, mixed 09/25/2017 Malignant neoplasm of ascending colon ([facility]) 07/29/2017 Malignant neoplasm of sigmoid colon ([facility]) 07/29/2017 Medicare annual wellness visit, subsequent 07/30/2018 Medicare part B: 03/15/2017 last done: 08/17/2019 Mixed incontinence 02/16/2020 Nerve pain 09/25/2017 Right side hip and up the spine Parastomal hernia without obstruction or gangrene Personal history of colon cancer 12/18/2020 Primary insomnia 01/02/2021 Rectal cancer (HCC) 10/12/2019 S/P total colectomy 07/16/2017 Secondary malignant neoplasm of large intestine and rectum ([facility]) 12/24/2019 Situational depression 08/17/2019 Resolved as of [...] Cancer Father Cancer Father skin Heart Mother [place] late 50's Stroke Mother Diabetes Mother Patient [...] Vishal Jones MD documented in this encounter [facility] 12-05-2021 Miscellaneous Notes Pharmacy verified in Epic Patient has been identified by name and [...] Shannon Mcrae Pss documented in this encounter [facility] 08-20-2020 History of Past i llness Narrative Problem Noted Date Resolved Date Malnutrition of moderate degree 08/20/2020 12/08/2021 Pneumonia 07/19/2017 07/19/2017 Acute respiratory failure with hypoxia 7 07/10/2017 Aspiration pneumonitis 07/03/2017 7 Bowel obstruction 06/30/2017 07/10/2017 documented as of this encounter (statuses as of 12/08/2021) [facility] History of Past illness Narrative* Problem Noted Date Resolved Date Malnutrition of moderate degree 08/20/2020 12/08/2021 Pneumonia 07/19/2017 07/19/2017 Acute respiratory failure with hypoxia 7 07/10/2017 Aspiration pneumonitis 07/03/2017 7 Bowel obstruction 06/30/2017 07/10/2017 documented as of this encounter (statuses as of 12/10/2021) [facility] History of Past illness Narrative* Problem Noted Date Resolved Date Malnutrition of moderate degree 08/20/2020 12/08/2021 Pneumonia 07/19/2017 07/19/2017 Acute respiratory failure with hypoxia 7 07/10/2017 Aspiration pneumonitis 07/03/2017 7 Bowel obstruction 06/30/2017 07/10/2017 documented as of this encounter (statuses as of 12/14/2021) [facility] History of Past illness Narrative* Problem Noted Date Resolved Date Malnutrition of moderate degree 08/20/2020 12/08/2021 Pneumonia 07/19/2017 07/19/2017 Acute respiratory failure with hypoxia 7 07/10/2017 Aspiration pneumonitis 07/03/2017 7 Bowel obstruction 06/30/2017 07/10/2017 documented as of this encounter (statuses as of 01/07/2022) [facility] of Past illness Narrative* Problem Noted Date Resolved Date Malnutrition of moderate degree 08/20/2020 12/08/2021 Pneumonia 07/19/2017 07/19/2017 Acute respiratory failure with hypoxia 7 07/10/2017 Aspiration pneumonitis 07/03/2017 7 Bowel obstruction 06/30/2017 07/10/2017 documented as of this encounter (statuses as of 01/08/2022) [facility] History of Past illness Narrative* Problem Noted Date Resolved Date Malnutrition of moderate degree 08/20/2020 12/08/2021 Pneumonia 07/19/2017 07/19/2017 Acute respiratory failure with hypoxia 7 07/10/2017 Aspiration pneumonitis 07/03/2017 7 Bowel obstruction 06/30/2017 07/10/2017 documented as of this encounter (statuses as of 01/17/2022) [facility] of Past illness Narrative* Problem Noted Date Resolved Date Malnutrition of moderate degree 08/20/2020 12/08/2021 Pneumonia 07/19/2017 07/19/2017 Acute respiratory failure with hypoxia 7 07/10/2017 Aspiration pneumonitis 07/03/2017 7 Bowel obstruction 06/30/2017 07/10/2017 documented as of this encounter (statuses as of 01/22/2022) [facility] of Past illness Narrative* Problem Noted Date Resolved Date Malnutrition of moderate degree 08/20/2020 12/08/2021 Pneumonia 07/19/2017 07/19/2017 Acute respiratory failure with hypoxia 7 07/10/2017 Aspiration pneumonitis 07/03/2017 7 Bowel obstruction 06/30/2017 07/10/2017 documented as of this encounter (statuses as of 01/31/2022) [facility] of Past illness Narrative* Problem Noted Date Resolved Date Malnutrition of moderate degree 08/20/2020 12/08/2021 Pneumonia 07/19/2017 07/19/2017 Acute respiratory failure with hypoxia 7 07/10/2017 Aspiration pneumonitis 07/03/2017 7 Bowel obstruction 06/30/2017 07/10/2017 documented as of this encounter (statuses as of 02/06/2022) [facility] of Past illness Narrative* Problem Noted Date Resolved Date Malnutrition of moderate degree 08/20/2020 12/08/2021 Pneumonia 07/19/2017 07/19/2017 Acute respiratory failure with hypoxia 7 07/10/2017 Aspiration pneumonitis 07/03/2017 7 Bowel obstruction 06/30/2017 07/10/2017 documented as of this encounter (statuses as of 02/26/2022) [facility] of Past illness Narrative* Problem Noted Date Resolved Date Malnutrition of moderate degree 08/20/2020 12/08/2021 Pneumonia 07/19/2017 07/19/2017 Acute respiratory failure with hypoxia 7 07/10/2017 Aspiration pneumonitis 07/03/2017 7 Bowel obstruction 06/30/2017 07/10/2017 documented as of this encounter (statuses as of 02/27/2022) [facility] of Past illness Narrative* Problem Noted Date Resolved Date Malnutrition of moderate degree 08/20/2020 12/08/2021 Pneumonia 07/19/2017 07/19/2017 Acute respiratory failure with hypoxia 7 07/10/2017 Aspiration pneumonitis 07/03/2017 7 Bowel obstruction 06/30/2017 07/10/2017 documented as of this encounter (statuses as of 02/27/2022) [facility] of Past illness Narrative* Problem Noted Date Resolved Date Malnutrition of moderate degree 08/20/2020 12/08/2021 Pneumonia 07/19/2017 07/19/2017 Acute respiratory failure with hypoxia 7 07/10/2017 Aspiration pneumonitis 07/03/2017 7 Bowel obstruction 06/30/2017 07/10/2017 documented as of this encounter (statuses as of 03/08/2022) [facility] of [facility] illness Narrative* Problem Noted Date Resolved Date Malnutrition of moderate degree 08/20/2020 12/08/2021 Pneumonia 07/19/2017 07/19/2017 Acute respiratory failure with hypoxia 7 07/10/2017 Aspiration pneumonitis 07/03/2017 7 Bowel obstruction 06/30/2017 07/10/2017 documented as of this encounter (statuses as of 03/21/2022) [facility] of [facility] illness Narrative* Problem Noted Date Resolved Date Malnutrition of moderate degree 08/20/2020 12/08/2021 Pneumonia 07/19/2017 07/19/2017 Acute respiratory failure with hypoxia 7 07/10/2017 Aspiration pneumonitis 07/03/2017 7 Bowel obstruction 06/30/2017 07/10/2017 documented as of this encounter (statuses as of 03/21/2022) [facility] of [facility] illness Narrative* Problem Noted Date Resolved Date Malnutrition of moderate degree 08/20/2020 12/08/2021 Pneumonia 07/19/2017 07/19/2017 Acute respiratory failure with hypoxia 7 07/10/2017 Aspiration pneumonitis 07/03/2017 7 Bowel obstruction 06/30/2017 07/10/2017 documented as of this encounter (statuses as of 03/25/2022) [facility] of [facility] illness Narrative* Problem Noted Date Resolved Date Malnutrition of moderate degree 08/20/2020 12/08/2021 Pneumonia 07/19/2017 07/19/2017 Acute respiratory failure with hypoxia 7 07/10/2017 Aspiration pneumonitis 07/03/2017 7 Bowel obstruction 06/30/2017 07/10/2017 documented as of this encounter (statuses as of 03/28/2022) [facility] of Past illness Narrative* Problem Noted Date Resolved Date Malnutrition of moderate degree 08/20/2020 12/08/2021 Pneumonia 07/19/2017 07/19/2017 Acute respiratory failure with hypoxia 7 07/10/2017 Aspiration pneumonitis 07/03/2017 7 Bowel obstruction 06/30/2017 07/10/2017 documented as of this encounter (statuses as of 04/11/2022) [facility] Narrative* Problem Noted Date Resolved Date Malnutrition of moderate degree 08/20/2020 12/08/2021 Pneumonia 07/19/2017 07/19/2017 Acute respiratory failure with hypoxia 7 07/10/2017 Aspiration pneumonitis 07/03/2017 7 Bowel obstruction 06/30/2017 07/10/2017 documented as of this encounter (statuses as of 04/18/2022) [facility]-2020 History of Past illness Narrative* Problem Noted Date Resolved Date Malnutrition of moderate degree 08/20/2020 12/08/2021 Pneumonia 07/19/2017 07/19/2017 Acute respiratory failure with hypoxia 7 07/10/2017 Aspiration pneumonitis 07/03/2017 7 Bowel obstruction 06/30/2017 07/10/2017 documented as of this encounter (statuses as of 04/30/2022) [facility]2020 History of Past illness Narrative* Problem Noted Date Resolved Date Malnutrition of moderate degree 08/20/2020 12/08/2021 Pneumonia 07/19/2017 07/19/2017 Acute respiratory failure with hypoxia 7 07/10/2017 Aspiration pneumonitis 07/03/2017 7 Bowel obstruction 06/30/2017 07/10/2017 documented as of this encounter (statuses as of 05/06/2022) [facility]2020 History of Past illness Narrative* Problem Noted Date Resolved Date Malnutrition of moderate degree 08/20/2020 12/08/2021 Pneumonia 07/19/2017 07/19/2017 Acute respiratory failure with hypoxia 7 07/10/2017 Aspiration pneumonitis 07/03/2017 7 Bowel obstruction 06/30/2017 07/10/2017 documented as of this encounter (statuses as of 05/15/2022) [address]-2020 History of Past illness Narrative* Problem Noted Date Resolved Date Malnutrition of moderate degree 08/20/2020 12/08/2021 Pneumonia 07/19/2017 07/19/2017 Acute respiratory failure with hypoxia 7 07/10/2017 Aspiration pneumonitis 07/03/2017 7 Bowel obstruction 06/30/2017 07/10/2017 documented as of this encounter (statuses as of 06/06/2022) [address]-2020 History of Past illness Narrative* Problem Noted Date Resolved Date Malnutrition of moderate degree 08/20/2020 12/08/2021 Pneumonia 07/19/2017 07/19/2017 Acute respiratory failure with hypoxia 7 07/10/2017 Aspiration pneumonitis 07/03/2017 7 Bowel obstruction 06/30/2017 07/10/2017 documented as of this encounter (statuses as of 06/20/2022) [facility]2020 History of Past illness Narrative* Problem Noted Date Resolved Date Malnutrition of moderate degree 08/20/2020 12/08/2021 Pneumonia 07/19/2017 07/19/2017 Acute respiratory failure with hypoxia 7 07/10/2017 Aspiration pneumonitis 07/03/2017 7 Bowel obstruction 06/30/2017 07/10/2017 documented as of this encounter (statuses as of 07/15/2022) [address]2020 History of Past illness Narrative* Problem Noted Date Resolved Date Malnutrition of moderate degree 08/20/2020 12/08/2021 Pneumonia 07/19/2017 07/19/2017 Acute respiratory failure with hypoxia 7 07/10/2017 Aspiration pneumonitis 07/03/2017 7 Bowel obstruction 06/30/2017 07/10/2017 documented as of this encounter (statuses as of 07/18/2022) [facility]2020 History of Past illness Narrative* Problem Noted Date Resolved Date Malnutrition of moderate degree 08/20/2020 12/08/2021 Pneumonia 07/19/2017 07/19/2017 Acute respiratory failure with hypoxia 7 07/10/2017 Aspiration pneumonitis 07/03/2017 7 Bowel obstruction 06/30/2017 07/10/2017 documented as of this encounter (statuses as of 07/25/2022) [facility]2020 History of Past illness Narrative* Problem Noted Date Resolved Date Malnutrition of moderate degree 08/20/2020 12/08/2021 Pneumonia 07/19/2017 07/19/2017 Acute respiratory failure with hypoxia 7 07/10/2017 Aspiration pneumonitis 07/03/2017 7 Bowel obstruction 06/30/2017 07/10/2017 documented as of this encounter (statuses as of 07/29/2022) [facility]2020 History of Past illness Narrative* Problem Noted Date Resolved Date Malnutrition of moderate degree 08/20/2020 12/08/2021 Pneumonia 07/19/2017 07/19/2017 Acute respiratory failure with hypoxia 7 07/10/2017 Aspiration pneumonitis 07/03/2017 7 Bowel obstruction 06/30/2017 07/10/2017 documented as of this encounter (statuses as of 07/30/2022) [facility] History of Past illness Narrative* Problem Noted Date Resolved Date Malnutrition of moderate degree 08/20/2020 12/08/2021 Pneumonia 07/19/2017 07/19/2017 Acute respiratory failure with hypoxia 7 07/10/2017 Aspiration pneumonitis 07/03/2017 7 Bowel obstruction 06/30/2017 07/10/2017 documented as of this encounter (statuses as of 08/19/2022) [facility]2020 History of Past illness Narrative* Problem Noted Date Resolved Date Malnutrition of moderate degree 08/20/2020 12/08/2021 Pneumonia 07/19/2017 07/19/2017 Acute respiratory failure with hypoxia 7 07/10/2017 Aspiration pneumonitis 07/03/2017 7 Bowel obstruction 06/30/2017 07/10/2017 documented as of this encounter (statuses as of 08/21/2022) [facility]2020 History of Past illness Narrative* Problem Noted Date Resolved Date Malnutrition of moderate degree 08/20/2020 12/08/2021 Pneumonia 07/19/2017 07/19/2017 Acute respiratory failure with hypoxia 7 07/10/2017 Aspiration pneumonitis 07/03/2017 7 Bowel obstruction 06/30/2017 07/10/2017 documented as of this encounter (statuses as of 08/27/2022) [facility]2020 History of Past illness Narrative* Problem Noted Date Resolved Date Malnutrition of moderate degree 08/20/2020 12/08/2021 Pneumonia 07/19/2017 07/19/2017 Acute respiratory failure with hypoxia 7 07/10/2017 Aspiration pneumonitis 07/03/2017 7 Bowel obstruction 06/30/2017 07/10/2017 documented as of this encounter (statuses as of 09/16/2022) [facility] History of Past illness Narrative* Problem Noted Date Resolved Date Malnutrition of moderate degree 08/20/2020 12/08/2021 Pneumonia 07/19/2017 07/19/2017 Acute respiratory failure with hypoxia 7 07/10/2017 Aspiration pneumonitis 07/03/2017 7 Bowel obstruction 06/30/2017 07/10/2017 documented as of this encounter (statuses as of 09/18/2022) [facility] History of Past illness Narrative* Problem Noted Date Resolved Date Malnutrition of moderate degree 08/20/2020 12/08/2021 Pneumonia 07/19/2017 07/19/2017 Acute respiratory failure with hypoxia 7 07/10/2017 Aspiration pneumonitis 07/03/2017 7 Bowel obstruction 06/30/2017 07/10/2017 documented as of this encounter (statuses as of 09/24/2022) [facility]2020 History of Past illness Narrative* Problem Noted Date Resolved Date Malnutrition of moderate degree 08/20/2020 12/08/2021 Pneumonia 07/19/2017 07/19/2017 Acute respiratory failure with hypoxia 7 07/10/2017 Aspiration pneumonitis 07/03/2017 7 Bowel obstruction 06/30/2017 07/10/2017 documented as of this encounter (statuses as of 09/27/2022) [facility]2020 History of Past illness Narrative* Problem Noted Date Resolved Date Malnutrition of moderate degree 08/20/2020 12/08/2021 Pneumonia 07/19/2017 07/19/2017 Acute respiratory failure with hypoxia 7 07/10/2017 Aspiration pneumonitis 07/03/2017 7 Bowel obstruction 06/30/2017 07/10/2017 documented as of this encounter (statuses as of 09/30/2022) [facility]2020 History of Past illness Narrative* Problem Noted Date Resolved Date Malnutrition of moderate degree 08/20/2020 12/08/2021 Pneumonia 07/19/2017 07/19/2017 Acute respiratory failure with hypoxia 7 07/10/2017 Aspiration pneumonitis 07/03/2017 7 Bowel obstruction 06/30/2017 07/10/2017 documented as of this encounter (statuses as of 10/09/2022) [facility]2020 History of Past illness Narrative* Problem Noted Date Resolved Date Malnutrition of moderate degree 08/20/2020 12/08/2021 Pneumonia 07/19/2017 07/19/2017 Acute respiratory failure with hypoxia 7 07/10/2017 Aspiration pneumonitis 07/03/2017 7 Bowel obstruction 06/30/2017 07/10/2017 documented as of this encounter (statuses as of 10/11/2022) [facility] History of Past illness Narrative* Problem Noted Date Resolved Date Malnutrition of moderate degree 08/20/2020 12/08/2021 Pneumonia 07/19/2017 07/19/2017 Acute respiratory failure with hypoxia 7 07/10/2017 Aspiration pneumonitis 07/03/2017 7 Bowel obstruction 06/30/2017 07/10/2017 documented as of this encounter (statuses as of 10/21/2022) [facility] History of Past illness Narrative* Problem Noted Date Resolved Date Malnutrition of moderate degree 08/20/2020 12/08/2021 Pneumonia 07/19/2017 07/19/2017 Acute respiratory failure with hypoxia 7 07/10/2017 Aspiration pneumonitis 07/03/2017 7 Bowel obstruction 06/30/2017 07/10/2017 documented as of this encounter (statuses as of 10/29/2022) [facility] History of Past illness Narrative* Problem Noted Date Resolved Date Malnutrition of moderate degree 08/20/2020 12/08/2021 Pneumonia 07/19/2017 07/19/2017 Acute respiratory failure with hypoxia 7 07/10/2017 Aspiration pneumonitis 07/03/2017 7 Bowel obstruction 06/30/2017 07/10/2017 documented as of this encounter (statuses as of 11/01/2022) [facility]2020 History of Past illness Narrative* Problem Noted Date Resolved Date Malnutrition of moderate degree 08/20/2020 12/08/2021 Pneumonia 07/19/2017 07/19/2017 Acute respiratory failure with hypoxia 7 07/10/2017 Aspiration pneumonitis 07/03/2017 7 Bowel obstruction 06/30/2017 07/10/2017 documented as of this encounter (statuses as of 11/07/2022) [facility] History of Past illness Narrative* Problem Noted Date Resolved Date Malnutrition of moderate degree 08/20/2020 12/08/2021 Pneumonia 07/19/2017 07/19/2017 Acute respiratory failure with hypoxia 7 07/10/2017 Aspiration pneumonitis 07/03/2017 7 Bowel obstruction 06/30/2017 07/10/2017 documented as of this encounter (statuses as of 11/09/2022) [facility] History of Past illness Narrative* Problem Noted Date Resolved Date Malnutrition of moderate degree 08/20/2020 12/08/2021 Pneumonia 07/19/2017 07/19/2017 Acute respiratory failure with hypoxia 7 07/10/2017 Aspiration pneumonitis 07/03/2017 7 Bowel obstruction 06/30/2017 07/10/2017 documented as of this encounter (statuses as of 11/15/2022) [facility] History of Past illness Narrative* Problem Noted Date Resolved Date Malnutrition of moderate degree 08/20/2020 12/08/2021 Pneumonia 07/19/2017 07/19/2017 Acute respiratory failure with hypoxia 7 07/10/2017 Aspiration pneumonitis 07/03/2017 7 Bowel obstruction 06/30/2017 07/10/2017 documented as of this encounter (statuses as of 11/25/2022) [facility]2020 History of Past illness Narrative* Problem Noted Date Resolved Date Malnutrition of moderate degree 08/20/2020 12/08/2021 Pneumonia 07/19/2017 07/19/2017 Acute respiratory failure with hypoxia 7 07/10/2017 Aspiration pneumonitis 07/03/2017 7 Bowel obstruction 06/30/2017 07/10/2017 documented as of this encounter (statuses as of 11/28/2022) [facility]2020 History of Past illness Narrative* Problem Noted Date Resolved Date Malnutrition of moderate degree 08/20/2020 12/08/2021 Pneumonia 07/19/2017 07/19/2017 Acute respiratory failure with hypoxia 7 07/10/2017 Aspiration pneumonitis 07/03/2017 7 Bowel obstruction 06/30/2017 07/10/2017 documented as of this encounter (statuses as of 12/04/2022) [facility] History of Past illness Narrative* Problem Noted Date Resolved Date Malnutrition of moderate degree 08/20/2020 12/08/2021 Pneumonia 07/19/2017 07/19/2017 Acute respiratory failure with hypoxia 7 07/10/2017 Aspiration pneumonitis 07/03/2017 7 Bowel obstruction 06/30/2017 07/10/2017 documented as of this encounter (statuses as of 12/04/2022) [facility] History of Past illness Narrative* Problem Noted Date Resolved Date Malnutrition of moderate degree 08/20/2020 12/08/2021 Pneumonia 07/19/2017 07/19/2017 Acute respiratory failure with hypoxia 7 07/10/2017 Aspiration pneumonitis 07/03/2017 7 Bowel obstruction 06/30/2017 07/10/2017 documented as of this encounter (statuses as of 12/04/2022) [facility] History of Past illness Narrative* Problem Noted Date Resolved Date Malnutrition of moderate degree 08/20/2020 12/08/2021 Pneumonia 07/19/2017 07/19/2017 Acute respiratory failure with hypoxia 7 07/10/2017 Aspiration pneumonitis 07/03/2017 7 Bowel obstruction 06/30/2017 07/10/2017 documented as of this encounter (statuses as of 12/06/2022) [facility] History of Past illness Narrative* Problem Noted Date Resolved Date Malnutrition of moderate degree 08/20/2020 12/08/2021 Pneumonia 07/19/2017 07/19/2017 Acute respiratory failure with hypoxia 7 07/10/2017 Aspiration pneumonitis 07/03/2017 7 Bowel obstruction 06/30/2017 07/10/2017 documented as of this encounter (statuses as of 12/19/2022) [facility] History of Past illness Narrative* Problem Noted Date Resolved Date Malnutrition of moderate degree 08/20/2020 12/08/2021 Pneumonia 07/19/2017 07/19/2017 Acute respiratory failure with hypoxia 7 07/10/2017 Aspiration pneumonitis 07/03/2017 7 Bowel obstruction 06/30/2017 07/10/2017 documented as of this encounter (statuses as of 12/24/2022) [facility] History of Past illness Narrative* Problem Noted Date Resolved Date Malnutrition of moderate degree 08/20/2020 12/08/2021 Pneumonia 07/19/2017 07/19/2017 Acute respiratory failure with hypoxia 7 07/10/2017 Aspiration pneumonitis 07/03/2017 7 Bowel obstruction 06/30/2017 07/10/2017 documented as of this encounter (statuses as of 12/24/2022) [facility] History of Past illness Narrative* Problem Noted Date Resolved Date Malnutrition of moderate degree 08/20/2020 12/08/2021 Pneumonia 07/19/2017 07/19/2017 Acute respiratory failure with hypoxia 7 07/10/2017 Aspiration pneumonitis 07/03/2017 7 Bowel obstruction 06/30/2017 07/10/2017 documented as of this encounter (statuses as of 12/30/2022) [facility] History of Past illness Narrative* Problem Noted Date Resolved Date Malnutrition of moderate degree 08/20/2020 12/08/2021 Pneumonia 07/19/2017 07/19/2017 Acute respiratory failure with hypoxia 7 07/10/2017 Aspiration pneumonitis 07/03/2017 7 Bowel obstruction 06/30/2017 07/10/2017 documented as of this encounter (statuses as of 12/30/2022) [facility] History of Past illness Narrative* Problem Noted Date Resolved Date Malnutrition of moderate degree 08/20/2020 12/08/2021 Pneumonia 07/19/2017 07/19/2017 Acute respiratory failure with hypoxia 7 07/10/2017 Aspiration pneumonitis 07/03/2017 7 Bowel obstruction 06/30/2017 07/10/2017 documented as of this encounter (statuses as of 01/02/2023) [facility]2020 History of Past illness Narrative* Problem Noted Date Resolved Date Malnutrition of moderate degree 08/20/2020 12/08/2021 Pneumonia 07/19/2017 07/19/2017 Acute respiratory failure with hypoxia 7 07/10/2017 Aspiration pneumonitis 07/03/2017 7 Bowel obstruction 06/30/2017 07/10/2017 documented as of this encounter (statuses as of 01/17/2023) [facility]2020 History of Past illness Narrative* Problem Noted Date Resolved Date Malnutrition of moderate degree 08/20/2020 12/08/2021 Pneumonia 07/19/2017 07/19/2017 Acute respiratory failure with hypoxia 7 07/10/2017 Aspiration pneumonitis 07/03/2017 7 Bowel obstruction 06/30/2017 07/10/2017 documented as of this encounter (statuses as of 01/24/2023) [facility] History of Past illness Narrative* Problem Noted Date Resolved Date Malnutrition of moderate degree 08/20/2020 12/08/2021 Pneumonia 07/19/2017 07/19/2017 Acute respiratory failure with hypoxia 7 07/10/2017 Aspiration pneumonitis 07/03/2017 7 Bowel obstruction 06/30/2017 07/10/2017 documented as of this encounter (statuses as of 02/22/2023) [facility]2020 History of Past illness Narrative* Problem Noted Date Resolved Date Malnutrition of moderate degree 08/20/2020 12/08/2021 Pneumonia 07/19/2017 07/19/2017 Acute respiratory failure with hypoxia 7 07/10/2017 Aspiration pneumonitis 07/03/2017 7 Bowel obstruction 06/30/2017 07/10/2017 documented as of this encounter (statuses as of 03/10/2023) [facility] History of Past illness Narrative* Problem Noted Date Diagnosed Date Resolved Date Malnutrition of moderate degree 08/20/2020 12/08/2021 Pneumonia 07/19/2017 07/19/2017 Acute respiratory failure with hypoxia 07/05/2017 07/10/2017 Aspiration pneumonitis 07/03/201707/10 Bowel obstruction 06/30/2017 07/10/2017 documented as of this encounter (statuses as of 03/27/2023) [facility] History of Past illness Narrative* Problem Noted Date Diagnosed Date Resolved Date Malnutrition of moderate degree 08/20/2020 12/08/2021 Pneumonia 07/19/2017 07/19/2017 Acute respiratory failure with hypoxia 07/05/2017 07/10/2017 Aspiration pneumonitis 07/03/201707/10 Bowel obstruction 06/30/2017 07/10/2017 documented as of this encounter (statuses as of 03/28/2023) [facility] History of Past illness Narrative* Problem Noted Date Diagnosed Date Resolved Date Malnutrition of moderate degree 08/20/2020 12/08/2021 Pneumonia 07/19/2017 07/19/2017 Acute respiratory failure with hypoxia 07/05/2017 07/10/2017 Aspiration pneumonitis 07/03/201707/10 Bowel obstruction 06/30/2017 07/10/2017 documented as of this encounter (statuses as of 04/01/2023) [facility] History of Past illness Narrative* Problem Noted Date Diagnosed Date Resolved Date Malnutrition of moderate degree 08/20/2020 12/08/2021 Pneumonia 07/19/2017 07/19/2017 Acute respiratory failure with hypoxia 07/05/2017 07/10/2017 Aspiration pneumonitis 07/03/201707/10 Bowel obstruction 06/30/2017 07/10/2017 documented as of this encounter (statuses as of 04/03/2023) [facility] History of Past illness Narrative* Problem Noted Date Diagnosed Date Resolved Date Malnutrition of moderate degree 08/20/2020 12/08/2021 Pneumonia 07/19/2017 07/19/2017 Acute respiratory failure with hypoxia 07/05/2017 07/10/2017 Aspiration pneumonitis 07/03/201707/10 Bowel obstruction 06/30/2017 07/10/2017 documented as of this encounter (statuses as of 04/10/2023) [facility] History of Past illness Narrative* Problem Noted Date Diagnosed Date Resolved Date Malnutrition of moderate degree 08/20/2020 12/08/2021 Pneumonia 07/19/2017 07/19/2017 Acute respiratory failure with hypoxia 07/05/2017 07/10/2017 Aspiration pneumonitis 07/03/201707/10 Bowel obstruction 06/30/2017 07/10/2017 documented as of this encounter (statuses as of 04/18/2023) [facility] History of Past illness Narrative* Problem Noted Date Diagnosed Date Resolved Date Malnutrition of moderate degree 08/20/2020 12/08/2021 Pneumonia 07/19/2017 07/19/2017 Acute respiratory failure with hypoxia 07/05/2017 07/10/2017 Aspiration pneumonitis 07/03/201707/10 Bowel obstruction 06/30/2017 07/10/2017 documented as of this encounter (statuses as of 04/18/2023) [facility] History of Past illness Narrative* Problem Noted Date Diagnosed Date Resolved Date Malnutrition of moderate degree 08/20/2020 12/08/2021 Pneumonia 07/19/2017 07/19/2017 Acute respiratory failure with hypoxia 07/05/2017 07/10/2017 Aspiration pneumonitis 07/03/201707/10 Bowel obstruction 06/30/2017 07/10/2017 documented as of this encounter (statuses as of 04/24/2023) [facility] History of Past illness Narrative* Problem Noted Date Diagnosed Date Resolved Date Malnutrition of moderate degree 08/20/2020 12/08/2021 Pneumonia 07/19/2017 07/19/2017 Acute respiratory failure with hypoxia 07/05/2017 07/10/2017 Aspiration pneumonitis 07/03/201707/10 Bowel obstruction 06/30/2017 07/10/2017 documented as of this encounter (statuses as of 05/06/2023) [facility] History of Past illness Narrative* Problem Noted Date Diagnosed Date Resolved Date Malnutrition of moderate degree 08/20/2020 12/08/2021 Pneumonia 07/19/2017 07/19/2017 Acute respiratory failure with hypoxia 07/05/2017 07/10/2017 Aspiration pneumonitis 07/03/201707/10 Bowel obstruction 06/30/2017 07/10/2017 documented as of this encounter (statuses as of 05/08/2023) [facility] History of Past illness Narrative* Problem Noted Date Diagnosed Date Resolved Date Malnutrition of moderate degree 08/20/2020 12/08/2021 Pneumonia 07/19/2017 07/19/2017 Acute respiratory failure with hypoxia 07/05/2017 07/10/2017 Aspiration pneumonitis 07/03/201707/10 Bowel obstruction 06/30/2017 07/10/2017 documented as of this encounter (statuses as of 05/08/2023) [facility] History of Past illness Narrative* Problem Noted Date Diagnosed Date Resolved Date Malnutrition of moderate degree 08/20/2020 12/08/2021 Pneumonia 07/19/2017 07/19/2017 Acute respiratory failure with hypoxia 07/05/2017 07/10/2017 Aspiration pneumonitis 07/03/201707/10 Bowel obstruction 06/30/2017 07/10/2017 documented as of this encounter (statuses as of 05/09/2023) [facility] History of Past illness Narrative* Problem Noted Date Diagnosed Date Resolved Date Malnutrition of moderate degree 08/20/2020 12/08/2021 Pneumonia 07/19/2017 07/19/2017 Acute respiratory failure with hypoxia 07/05/2017 07/10/2017 Aspiration pneumonitis 07/03/201707/10 Bowel obstruction 06/30/2017 07/10/2017 documented as of this encounter (statuses as of 05/09/2023) [facility] History of Past illness Narrative* Problem Noted Date Diagnosed Date Resolved Date Malnutrition of moderate degree 08/20/2020 12/08/2021 Pneumonia 07/19/2017 07/19/2017 Acute respiratory failure with hypoxia 07/05/2017 07/10/2017 Aspiration pneumonitis 07/03/201707/10 Bowel obstruction 06/30/2017 07/10/2017 documented as of this encounter (statuses as of 05/10/2023) [facility] History of Past illness Narrative* Problem Noted Date Diagnosed Date Resolved Date Malnutrition of moderate degree 08/20/2020 12/08/2021 Pneumonia 07/19/2017 07/19/2017 Acute respiratory failure with hypoxia 07/05/2017 07/10/2017 Aspiration pneumonitis 07/03/201707/10 Bowel obstruction 06/30/2017 07/10/2017 documented as of this encounter (statuses as of 05/13/2023) [facility] History of Past illness Narrative* Problem Noted Date Diagnosed Date Resolved Date Malnutrition of moderate degree 08/20/2020 12/08/2021 Pneumonia 07/19/2017 07/19/2017 Acute respiratory failure with hypoxia 07/05/2017 07/10/2017 Aspiration pneumonitis 07/03/201707/10 Bowel obstruction 06/30/2017 07/10/2017 documented as of this encounter (statuses as of 05/13/2023) [facility] History of Past illness Narrative* Problem Noted Date Diagnosed Date Resolved Date Malnutrition of moderate degree 08/20/2020 12/08/2021 Pneumonia 07/19/2017 07/19/2017 Acute respiratory failure with hypoxia 07/05/2017 07/10/2017 Aspiration pneumonitis 07/03/201707/10 Bowel obstruction 06/30/2017 07/10/2017 documented as of this encounter (statuses as of 05/16/2023) [facility] History of Past illness Narrative* Problem Noted Date Diagnosed Date Resolved Date Malnutrition of moderate degree 08/20/2020 12/08/2021 Pneumonia 07/19/2017 07/19/2017 Acute respiratory failure with hypoxia 07/05/2017 07/10/2017 Aspiration pneumonitis 07/03/201707/10 Bowel obstruction 06/30/2017 07/10/2017 documented as of this encounter (statuses as of 05/20/2023) [facility] History of Past illness Narrative* Problem Noted Date Diagnosed Date Resolved Date Malnutrition of moderate degree 08/20/2020 12/08/2021 Pneumonia 07/19/2017 07/19/2017 Acute respiratory failure with hypoxia 07/05/2017 07/10/2017 Aspiration pneumonitis 07/03/201707/10 Bowel obstruction 06/30/2017 07/10/2017 documented as of this encounter (statuses as of 05/30/2023) [facility] History of Past illness Narrative* Problem Noted Date Diagnosed Date Resolved Date Malnutrition of moderate degree 08/20/2020 12/08/2021 Pneumonia 07/19/2017 07/19/2017 Acute respiratory failure with hypoxia 07/05/2017 07/10/2017 Aspiration pneumonitis 07/03/201707/10 Bowel obstruction 06/30/2017 07/10/2017 documented as of this encounter (statuses as of 06/03/2023) [facility]-2020 History of Past illness Narrative* Problem Noted Date Diagnosed Date Resolved Date Malnutrition of moderate degree 08/20/2020 12/08/2021 Pneumonia 07/19/2017 07/19/2017 Acute respiratory failure with hypoxia 07/05/2017 07/10/2017 Aspiration pneumonitis 07/03/201707/10 Bowel obstruction 06/30/2017 07/10/2017 documented as of this encounter (statuses as of 06/05/2023) [facility]2020 History of Past illness Narrative* Problem Noted Date Diagnosed Date Resolved Date Malnutrition of moderate degree 08/20/2020 12/08/2021 Pneumonia 07/19/2017 07/19/2017 Acute respiratory failure with hypoxia 07/05/2017 07/10/2017 Aspiration pneumonitis 07/03/201707/10 Bowel obstruction 06/30/2017 07/10/2017 documented as of this encounter (statuses as of 06/09/2023) [facility]2020 History of Past illness Narrative* Problem Noted Date Diagnosed Date Resolved Date Malnutrition of moderate degree 08/20/2020 12/08/2021 Pneumonia 07/19/2017 07/19/2017 Acute respiratory failure with hypoxia 07/05/2017 07/10/2017 Aspiration pneumonitis 07/03/201707/10 Bowel obstruction 06/30/2017 07/10/2017 documented as of this encounter (statuses as of 06/27/2023) [facility]2020 History of Past illness Narrative* Problem Noted Date Diagnosed Date Resolved Date Malnutrition of moderate degree 08/20/2020 12/08/2021 Pneumonia 07/19/2017 07/19/2017 Acute respiratory failure with hypoxia 07/05/2017 07/10/2017 Aspiration pneumonitis 07/03/201707/10 Bowel obstruction 06/30/2017 07/10/2017 documented as of this encounter (statuses as of 06/30/2023) [facility] History of Past illness Narrative* Problem Noted Date Diagnosed Date Resolved Date Malnutrition of moderate degree 08/20/2020 12/08/2021 Pneumonia 07/19/2017 07/19/2017 Acute respiratory failure with hypoxia 07/05/2017 07/10/2017 Aspiration pneumonitis 07/03/201707/10 Bowel obstruction 06/30/2017 07/10/2017 documented as of this encounter (statuses as of 07/01/2023) [facility] History of Past illness Narrative* Problem Noted Date Diagnosed Date Resolved Date Malnutrition of moderate degree 08/20/2020 12/08/2021 Pneumonia 07/19/2017 07/19/2017 Acute respiratory failure with hypoxia 07/05/2017 07/10/2017 Aspiration pneumonitis 07/03/201707/10 Bowel obstruction 06/30/2017 07/10/2017 documented as of this encounter (statuses as of 07/09/2023) [facility] History of Past illness Narrative* Problem Noted Date Diagnosed Date Resolved Date Malnutrition of moderate degree 08/20/2020 12/08/2021 Pneumonia 07/19/2017 07/19/2017 Acute respiratory failure with hypoxia 07/05/2017 07/10/2017 Aspiration pneumonitis 07/03/201707/10 Bowel obstruction 06/30/2017 07/10/2017 documented as of this encounter (statuses as of 07/15/2023) [facility]2020 History of Past illness Narrative* Problem Noted Date Diagnosed Date Resolved Date Malnutrition of moderate degree 08/20/2020 12/08/2021 Pneumonia 07/19/2017 07/19/2017 Acute respiratory failure with hypoxia 07/05/2017 07/10/2017 Aspiration pneumonitis 07/03/201707/10 Bowel obstruction 06/30/2017 07/10/2017 documented as of this encounter (statuses as of 07/16/2023) [facility]2020 History of Past illness Narrative* Problem Noted Date Diagnosed Date Resolved Date Malnutrition of moderate degree 08/20/2020 12/08/2021 Pneumonia 07/19/2017 07/19/2017 Acute respiratory failure with hypoxia 07/05/2017 07/10/2017 Aspiration pneumonitis 07/03/201707/10 Bowel obstruction 06/30/2017 07/10/2017 documented as of this encounter (statuses as of 07/19/2023) [facility]2020 History of Past illness Narrative* Problem Noted Date Diagnosed Date Resolved Date Malnutrition of moderate degree 08/20/2020 12/08/2021 Pneumonia 07/19/2017 07/19/2017 Acute respiratory failure with hypoxia 07/05/2017 07/10/2017 Aspiration pneumonitis 07/03/201707/10 Bowel obstruction 06/30/2017 07/10/2017 documented as of this encounter (statuses as of 07/20/2023) [facility] History of Past illness Narrative* Problem Noted Date Diagnosed Date Resolved Date Malnutrition of moderate degree 08/20/2020 12/08/2021 Pneumonia 07/19/2017 07/19/2017 Acute respiratory failure with hypoxia 07/05/2017 07/10/2017 Aspiration pneumonitis 07/03/201707/10 Bowel obstruction 06/30/2017 07/10/2017 documented as of this encounter (statuses as of 07/20/2023) [facility]2020 History of Past illness Narrative* Problem Noted Date Diagnosed Date Resolved Date Malnutrition of moderate degree 08/20/2020 12/08/2021 Pneumonia 07/19/2017 07/19/2017 Acute respiratory failure with hypoxia 07/05/2017 07/10/2017 Aspiration pneumonitis 07/03/201707/10 Bowel obstruction 06/30/2017 07/10/2017 documented as of this encounter (statuses as of 07/20/2023) [facility] History of Past illness Narrative* Problem Noted Date Diagnosed Date Resolved Date Malnutrition of moderate degree 08/20/2020 12/08/2021 Pneumonia 07/19/2017 07/19/2017 Acute respiratory failure with hypoxia 07/05/2017 07/10/2017 Aspiration pneumonitis 07/03/201707/10 Bowel obstruction 06/30/2017 07/10/2017 documented as of this encounter (statuses as of 07/20/2023) [facility] History of Past illness Narrative* Problem Noted Date Diagnosed Date Resolved Date Malnutrition of moderate degree 08/20/2020 12/08/2021 Pneumonia 07/19/2017 07/19/2017 Acute respiratory failure with hypoxia 07/05/2017 07/10/2017 Aspiration pneumonitis 07/03/201707/10 Bowel obstruction 06/30/2017 07/10/2017 documented as of this encounter (statuses as of 07/20/2023) [facility] History of Past illness Narrative* Problem Noted Date Diagnosed Date Resolved Date Malnutrition of moderate degree 08/20/2020 12/08/2021 Pneumonia 07/19/2017 07/19/2017 Acute respiratory failure with hypoxia 07/05/2017 07/10/2017 Aspiration pneumonitis 07/03/201707/10 Bowel obstruction 06/30/2017 07/10/2017 documented as of this encounter (statuses as of 07/20/2023) [facility] History of Past illness Narrative* Problem Noted Date Diagnosed Date Resolved Date Malnutrition of moderate degree 08/20/2020 12/08/2021 Pneumonia 07/19/2017 07/19/2017 Acute respiratory failure with hypoxia 07/05/2017 07/10/2017 Aspiration pneumonitis 07/03/201707/10 Bowel obstruction 06/30/2017 07/10/2017 documented as of this encounter (statuses as of 07/20/2023) [facility] History of Past illness Narrative* Problem Noted Date Diagnosed Date Resolved Date Malnutrition of moderate degree 08/20/2020 12/08/2021 Pneumonia 07/19/2017 07/19/2017 Acute respiratory failure with hypoxia 07/05/2017 07/10/2017 Aspiration pneumonitis 07/03/201707/10 Bowel obstruction 06/30/2017 07/10/2017 documented as of this encounter (statuses as of 07/20/2023) [place] [address]-06-2020 History of Past illness Narrative* Problem Noted Date Diagnosed Date Resolved Date Malnutrition of moderate degree 08/20/2020 12/08/2021 Pneumonia 07/19/2017 07/19/2017 Acute respiratory failure with hypoxia 07/05/2017 07/10/2017 Aspiration pneumonitis 07/03/201707/10 Bowel obstruction 06/30/2017 07/10/2017 documented as of this encounter (statuses as of 07/20/2023) [facility]2020 History of Past illness Narrative* Problem Noted Date Diagnosed Date Resolved Date Malnutrition of moderate degree 08/20/2020 12/08/2021 Pneumonia 07/19/2017 07/19/2017 Acute respiratory failure with hypoxia 07/05/2017 07/10/2017 Aspiration pneumonitis 07/03/201707/10 Bowel obstruction 06/30/2017 07/10/2017 documented as of this encounter (statuses as of 07/25/2023) [facility] History of Past illness Narrative* Problem Noted Date Diagnosed Date Resolved Date Malnutrition of moderate degree 08/20/2020 12/08/2021 Pneumonia 07/19/2017 07/19/2017 Acute respiratory failure with hypoxia 07/05/2017 07/10/2017 Aspiration pneumonitis 07/03/201707/10 Bowel obstruction 06/30/2017 07/10/2017 documented as of this encounter (statuses as of 08/01/2023) [facility] History of Past illness Narrative* Problem Noted Date Diagnosed Date Resolved Date Malnutrition of moderate degree 08/20/2020 12/08/2021 Pneumonia 07/19/2017 07/19/2017 Acute respiratory failure with hypoxia 07/05/2017 07/10/2017 Aspiration pneumonitis 07/03/201707/10 Bowel obstruction 06/30/2017 07/10/2017 documented as of this encounter (statuses as of 08/26/2023) [facility] History of Past illness Narrative* Problem Noted Date Diagnosed Date Resolved Date Malnutrition of moderate degree 08/20/2020 12/08/2021 Pneumonia 07/19/2017 07/19/2017 Acute respiratory failure with hypoxia 07/05/2017 07/10/2017 Aspiration pneumonitis 07/03/201707/10 Bowel obstruction 06/30/2017 07/10/2017 documented as of this encounter (statuses as of 10/27/2023) [facility]2020 History of Past illness Narrative* Problem Noted Date Diagnosed Date Resolved Date Malnutrition of moderate degree 08/20/2020 12/08/2021 Pneumonia 07/19/2017 07/19/2017 Acute respiratory failure with hypoxia 07/05/2017 07/10/2017 Aspiration pneumonitis 07/03/201707/10 Bowel obstruction 06/30/2017 07/10/2017 documented as of this encounter (statuses as of 10/28/2023) [facility]2020 History of Past illness Narrative* Problem Noted Date Diagnosed Date Resolved Date Malnutrition of moderate degree 08/20/2020 12/08/2021 Pneumonia 07/19/2017 07/19/2017 Acute respiratory failure with hypoxia 07/05/2017 07/10/2017 Aspiration pneumonitis 07/03/201707/10 Bowel obstruction 06/30/2017 07/10/2017 documented as of this encounter (statuses as of 10/30/2023) [address]06-2020 History of Past illness Narrative* Problem Noted Date Diagnosed Date Resolved Date Malnutrition of moderate degree 08/20/2020 12/08/2021 Pneumonia 07/19/2017 07/19/2017 Acute respiratory failure with hypoxia 07/05/2017 07/10/2017 Aspiration pneumonitis 07/03/201707/10 Bowel obstruction 06/30/2017 07/10/2017 documented as of this encounter (statuses as of 10/30/2023) [facility]2020 History of Past illness Narrative* Problem Noted Date Diagnosed Date Resolved Date Malnutrition of moderate degree 08/20/2020 12/08/2021 Pneumonia 07/19/2017 07/19/2017 Acute respiratory failure with hypoxia 07/05/2017 07/10/2017 Aspiration pneumonitis 07/03/201707/10 Bowel obstruction 06/30/2017 07/10/2017 documented as of this encounter (statuses as of 10/31/2023) [address] History of Past illness Narrative* Problem Noted Date Diagnosed Date Resolved Date Malnutrition of moderate degree 08/20/2020 12/08/2021 Pneumonia 07/19/2017 07/19/2017 Acute respiratory failure with hypoxia 07/05/2017 07/10/2017 Aspiration pneumonitis 07/03/201707/10 Bowel obstruction 06/30/2017 07/10/2017 documented as of this encounter (statuses as of 10/31/2023) [facility]2020 History of Past illness Narrative* Problem Noted Date Diagnosed Date Resolved Date Malnutrition of moderate degree 08/20/2020 12/08/2021 Pneumonia 07/19/2017 07/19/2017 Acute respiratory failure with hypoxia 07/05/2017 07/10/2017 Aspiration pneumonitis 07/03/201707/10 Bowel obstruction 06/30/2017 07/10/2017 documented as of this encounter (statuses as of 11/08/2023) [facility]2020 History of Past illness Narrative* Problem Noted Date Diagnosed Date Resolved Date Malnutrition of moderate degree 08/20/2020 12/08/2021 Pneumonia 07/19/2017 07/19/2017 Acute respiratory failure with hypoxia 07/05/2017 07/10/2017 Aspiration pneumonitis 07/03/201707/10 Bowel obstruction 06/30/2017 07/10/2017 documented as of this encounter (statuses as of 11/12/2023) [facility]2020 History of Past illness Narrative* Problem Noted Date Diagnosed Date Resolved Date Malnutrition of moderate degree 08/20/2020 12/08/2021 Pneumonia 07/19/2017 07/19/2017 Acute respiratory failure with hypoxia 07/05/2017 07/10/2017 Aspiration pneumonitis 07/03/201707/10 Bowel obstruction 06/30/2017 07/10/2017 documented as of this encounter (statuses as of 11/12/2023) [facility]2020 History of Past illness Narrative* Problem Noted Date Diagnosed Date Resolved Date Malnutrition of moderate degree 08/20/2020 12/08/2021 Pneumonia 07/19/2017 07/19/2017 Acute respiratory failure with hypoxia 07/05/2017 07/10/2017 Aspiration pneumonitis 07/03/201707/10 Bowel obstruction 06/30/2017 07/10/2017 documented as of this encounter (statuses as of 11/13/2023) [facility]2020 History of Past illness Narrative* Problem Noted Date Diagnosed Date Resolved Date Malnutrition of moderate degree 08/20/2020 12/08/2021 Pneumonia 07/19/2017 07/19/2017 Acute respiratory failure with hypoxia 07/05/2017 07/10/2017 Aspiration pneumonitis 07/03/201707/10 Bowel obstruction 06/30/2017 07/10/2017 documented as of this encounter (statuses as of 11/13/2023) [facility]2020 History of Past illness Narrative* Problem Noted Date Diagnosed Date Resolved Date Malnutrition of moderate degree 08/20/2020 12/08/2021 Pneumonia 07/19/2017 07/19/2017 Acute respiratory failure with hypoxia 07/05/2017 07/10/2017 Aspiration pneumonitis 07/03/201707/10 Bowel obstruction 06/30/2017 07/10/2017 documented as of this encounter (statuses as of 11/14/2023) [address] History of Past illness Narrative* Problem Noted Date Diagnosed Date Resolved Date Malnutrition of moderate degree 08/20/2020 12/08/2021 Pneumonia 07/19/2017 07/19/2017 Acute respiratory failure with hypoxia 07/05/2017 07/10/2017 Aspiration pneumonitis 07/03/201707/10 Bowel obstruction 06/30/2017 07/10/2017 documented as of this encounter (statuses as of 11/14/2023) [address]2020 History of Past illness Narrative* Problem Noted Date Diagnosed Date Resolved Date Malnutrition of moderate degree 08/20/2020 12/08/2021 Pneumonia 07/19/2017 07/19/2017 Acute respiratory failure with hypoxia 07/05/2017 07/10/2017 Aspiration pneumonitis 07/03/201707/10 Bowel obstruction 06/30/2017 07/10/2017 documented as of this encounter (statuses as of 11/14/2023) [facility]2020 History of Past illness Narrative* Problem Noted Date Diagnosed Date Resolved Date Malnutrition of moderate degree 08/20/2020 12/08/2021 Pneumonia 07/19/2017 07/19/2017 Acute respiratory failure with hypoxia 07/05/2017 07/10/2017 Aspiration pneumonitis 07/03/201707/10 Bowel obstruction 06/30/2017 07/10/2017 documented as of this encounter (statuses as of 11/14/2023) [address]2020 History of Past illness Narrative* Problem Noted Date Diagnosed Date Resolved Date Malnutrition of moderate degree 08/20/2020 12/08/2021 Pneumonia 07/19/2017 07/19/2017 Acute respiratory failure with hypoxia 07/05/2017 07/10/2017 Aspiration pneumonitis 07/03/201707/10 Bowel obstruction 06/30/2017 07/10/2017 documented as of this encounter (statuses as of 11/14/2023) [facility]2020 History of Past illness Narrative* Problem Noted Date Diagnosed Date Resolved Date Malnutrition of moderate degree 08/20/2020 12/08/2021 Pneumonia 07/19/2017 07/19/2017 Acute respiratory failure with hypoxia 07/05/2017 07/10/2017 Aspiration pneumonitis 07/03/201707/10 Bowel obstruction 06/30/2017 07/10/2017 documented as of this encounter (statuses as of 11/17/2023) [facility]2020 History of Past illness Narrative* Problem Noted Date Diagnosed Date Resolved Date Malnutrition of moderate degree 08/20/2020 12/08/2021 Pneumonia 07/19/2017 07/19/2017 Acute respiratory failure with hypoxia 07/05/2017 07/10/2017 Aspiration pneumonitis 07/03/201707/10 Bowel obstruction 06/30/2017 07/10/2017 documented as of this encounter (statuses as of 11/18/2023) [facility]2020 History of Past illness Narrative* Problem Noted Date Diagnosed Date Resolved Date Malnutrition of moderate degree 08/20/2020 12/08/2021 Pneumonia 07/19/2017 07/19/2017 Acute respiratory failure with hypoxia 07/05/2017 07/10/2017 Aspiration pneumonitis 07/03/201707/10 Bowel obstruction 06/30/2017 07/10/2017 documented as of this encounter (statuses as of 11/20/2023) [facility]2020 History of Past illness Narrative* Problem Noted Date Diagnosed Date Resolved Date Malnutrition of moderate degree 08/20/2020 12/08/2021 Pneumonia 07/19/2017 07/19/2017 Acute respiratory failure with hypoxia 07/05/2017 07/10/2017 Aspiration pneumonitis 07/03/201707/10 Bowel obstruction 06/30/2017 07/10/2017 documented as of this encounter (statuses as of 11/21/2023) [facility] History of Past illness Narrative* Problem Noted Date Diagnosed Date Resolved Date Malnutrition of moderate degree 08/20/2020 12/08/2021 Pneumonia 07/19/2017 07/19/2017 Acute respiratory failure with hypoxia 07/05/2017 07/10/2017 Aspiration pneumonitis 07/03/201707/10 Bowel obstruction 06/30/2017 07/10/2017 documented as of this encounter (statuses as of 12/08/2023) [facility] History of Past illness Narrative* Problem Noted Date Diagnosed Date Resolved Date Malnutrition of moderate degree 08/20/2020 12/08/2021 Pneumonia 07/19/2017 07/19/2017 Acute respiratory failure with hypoxia 07/05/2017 07/10/2017 Aspiration pneumonitis 07/03/201707/10 Bowel obstruction 06/30/2017 07/10/2017 documented as of this encounter (statuses as of 12/09/2023) [facility] History of Past illness Narrative* Problem Noted Date Diagnosed Date Resolved Date Malnutrition of moderate degree 08/20/2020 12/08/2021 Pneumonia 07/19/2017 07/19/2017 Acute respiratory failure with hypoxia 07/05/2017 07/10/2017 Aspiration pneumonitis 07/03/201707/10 Bowel obstruction 06/30/2017 07/10/2017 documented as of this encounter (statuses as of 12/25/2023) [facility] History of Past illness Narrative* Problem Noted Date Diagnosed Date Resolved Date Malnutrition of moderate degree 08/20/2020 12/08/2021 Pneumonia 07/19/2017 07/19/2017 Acute respiratory failure with hypoxia 07/05/2017 07/10/2017 Aspiration pneumonitis 07/03/201707/10 Bowel obstruction 06/30/2017 07/10/2017 documented as of this encounter (statuses as of 12/25/2023) [facility] History of Past illness Narrative* Problem Noted Date Diagnosed Date Resolved Date Malnutrition of moderate degree 08/20/2020 12/08/2021 Pneumonia 07/19/2017 07/19/2017 Acute respiratory failure with hypoxia 07/05/2017 07/10/2017 Aspiration pneumonitis 07/03/201707/10 Bowel obstruction 06/30/2017 07/10/2017 documented as of this encounter (statuses as of 12/25/2023) [facility] History of Past illness Narrative* Problem Noted Date Diagnosed Date Resolved Date Malnutrition of moderate degree 08/20/2020 12/08/2021 Pneumonia 07/19/2017 07/19/2017 Acute respiratory failure with hypoxia 07/05/2017 07/10/2017 Aspiration pneumonitis 07/03/201707/10 Bowel obstruction 06/30/2017 07/10/2017 documented as of this encounter (statuses as of 12/26/2023) [facility] History of Past illness Narrative* Problem Noted Date Diagnosed Date Resolved Date Malnutrition of moderate degree 08/20/2020 12/08/2021 Pneumonia 07/19/2017 07/19/2017 Acute respiratory failure with hypoxia 07/05/2017 07/10/2017 Aspiration pneumonitis 07/03/201707/10 Bowel obstruction 06/30/2017 07/10/2017 documented as of this encounter (statuses as of 12/26/2023) [facility] History of Past illness Narrative* Problem Noted Date Diagnosed Date Resolved Date Malnutrition of moderate degree 08/20/2020 12/08/2021 Pneumonia 07/19/2017 07/19/2017 Acute respiratory failure with hypoxia 07/05/2017 07/10/2017 Aspiration pneumonitis 07/03/201707/10 Bowel obstruction 06/30/2017 07/10/2017 documented as of this encounter (statuses as of 12/26/2023) [facility] History of Past illness Narrative* Problem Noted Date Diagnosed Date Resolved Date Malnutrition of moderate degree 08/20/2020 12/08/2021 Pneumonia 07/19/2017 07/19/2017 Acute respiratory failure with hypoxia 07/05/2017 07/10/2017 Aspiration pneumonitis 07/03/201707/10 Bowel obstruction 06/30/2017 07/10/2017 documented as of this encounter (statuses as of 12/29/2023) [facility] History of Past illness Narrative* Problem Noted Date Diagnosed Date Resolved Date Malnutrition of moderate degree 08/20/2020 12/08/2021 Pneumonia 07/19/2017 07/19/2017 Acute respiratory failure with hypoxia 07/05/2017 07/10/2017 Aspiration pneumonitis 07/03/201707/10 Bowel obstruction 06/30/2017 07/10/2017 documented as of this encounter (statuses as of 12/30/2023) [facility] History of Past illness Narrative* Problem Noted Date Diagnosed Date Resolved Date Malnutrition of moderate degree 08/20/2020 12/08/2021 Pneumonia 07/19/2017 07/19/2017 Acute respiratory failure with hypoxia 07/05/2017 07/10/2017 Aspiration pneumonitis 07/03/201707/10 Bowel obstruction 06/30/2017 07/10/2017 documented as of this encounter (statuses as of 12/30/2023) [facility] History of Past illness Narrative* Problem Noted Date Diagnosed Date Resolved Date Malnutrition of moderate degree 08/20/2020 12/08/2021 Pneumonia 07/19/2017 07/19/2017 Acute respiratory failure with hypoxia 07/05/2017 07/10/2017 Aspiration pneumonitis 07/03/201707/10 Bowel obstruction 06/30/2017 07/10/2017 documented as of this encounter (statuses as of 01/01/2024) [facility] History of Past illness Narrative* Problem Noted Date Diagnosed Date Resolved Date Malnutrition of moderate degree 08/20/2020 12/08/2021 Pneumonia 07/19/2017 07/19/2017 Acute respiratory failure with hypoxia 07/05/2017 07/10/2017 Aspiration pneumonitis 07/03/201707/10 Bowel obstruction 06/30/2017 07/10/2017 documented as of this encounter (statuses as of 01/02/2024) [facility] History of Past illness Narrative* Problem Noted Date Diagnosed Date Resolved Date Malnutrition of moderate degree 08/20/2020 12/08/2021 Pneumonia 07/19/2017 07/19/2017 Acute respiratory failure with hypoxia 07/05/2017 07/10/2017 Aspiration pneumonitis 07/03/201707/10 Bowel obstruction 06/30/2017 07/10/2017 documented as of this encounter (statuses as of 01/02/2024) [facility] History of Past illness Narrative* Problem Noted Date Diagnosed Date Resolved Date Malnutrition of moderate degree 08/20/2020 12/08/2021 Pneumonia 07/19/2017 07/19/2017 Acute respiratory failure with hypoxia 07/05/2017 07/10/2017 Aspiration pneumonitis 07/03/201707/10 Bowel obstruction 06/30/2017 07/10/2017 documented as of this encounter (statuses as of 01/03/2024) [facility]-2017 Fall risk [id number] risk assessmentWNewdea Method Work Phone: 1(516) 682-533111-04-2017 History of Past illness Narrative* Problem Noted Date Resolved Date Pneumonia 07/19/2017 07/19/2017 Acute respiratory failure with hypoxia 7 07/10/2017 Aspiration pneumonitis 07/03/2017 7 Bowel obstruction 06/30/2017 07/10/2017 documented as of this encounter (statuses as of 12/05/2021) [facility]-2017 Fall risk [id number] risk assessmentWAdviseHub Work Phone: Evaluation note* Diagnosis Situational depression- Primary Adjustment disorder with depressed mood Malnutrition of moderate degree (HCC) Malnutrition of moderate degree [facility] encounter [facility] Diagnosis Malignant neoplasm of sigmoid colon (HCC)- Primary Malignant neoplasm of sigmoid colon [facility] this encounter [facility] Diagnosis Preop examination- Primary Preoperative examination, unspecified DDD (degenerative disc disease), lumbar Degeneration of lumbar or lumbosacral intervertebral disc Coronary artery disease involving [place] coronary artery of [place] heart without angina pectoris Paroxysmal atrial fibrillation (HCC) Atrial fibrillation Elevated hemoglobin A1c Other abnormal blood chemistry Hyperlipidemia, mixed Mixed hyperlipidemia [facility] Diagnosis Malignant neoplasm of sigmoid colon (HCC)- Primary Malignant neoplasm of sigmoid colon [facility] Diagnosis Rectal cancer (HCC) Malignant neoplasm of rectum [facility] Diagnosis Rectal cancer (HCC) Malignant neoplasm of rectum [facility] Diagnosis Malignant neoplasm of sigmoid colon (HCC)- Primary Malignant neoplasm of sigmoid colon [facility] Diagnosis Rectal cancer (HCC)- Primary Malignant neoplasm of rectum [facility] Diagnosis History of colon cancer- Primary Personal history of malignant neoplasm of large intestine Ventral hernia without obstruction or gangrene Ventral hernia, unspecified, without mention of obstruction or gangrene 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) Ileostomy status Generalized weakness Other malaise and fatigue Falls frequently Personal history of [facility] Diagnosis Falls frequently- Primary Personal history of fall [facility] Diagnosis Bilateral carotid artery stenosis Occlusion and stenosis of carotid artery without mention of cerebral infarction Positional lightheadedness Dizziness and giddiness [facility]* Diagnosis Falls frequently- Primary Personal history of fall [facility]* Diagnosis Falls frequently- Primary Personal history of fall [facility]* Diagnosis Essential hypertension- Primary Unspecified essential hypertension Bilateral carotid artery stenosis Occlusion and stenosis of carotid artery without mention of cerebral infarction Chronic midline low back pain with right-sided sciatica Falls frequently Personal history of fall Generalized weakness Other malaise and fatigue [facility] Diagnosis Malignant neoplasm of sigmoid colon (HCC)- Primary Malignant neoplasm of sigmoid colon [facility]* Diagnosis Fever, unspecified fever cause- Primary [facility]* Diagnosis Malignant neoplasm of prostate (HCC)- Primary Malignant neoplasm of prostate [facility]* Diagnosis Skin abrasion- Primary Abrasion or friction burn of other, multiple, and unspecified sites, without mention of infection Dysuria Acute cystitis with hematuria Acute cystitis Arthritis of right hip Arthritis, lumbar spine Lumbosacral spondylosis without myelopathy [facility]* Diagnosis Right leg pain- Primary Pain in limb Lumbar pain Lumbago Spinal stenosis, lumbar region with neurogenic claudication Frequent nocturnal awakening Other sleep disturbances Sleep apnea-like behavior Insomnia, unspecified type Cognitive impairment Unspecified persistent mental disorders due to conditions classified elsewhere [facility] Diagnosis Malignant neoplasm of sigmoid colon (HCC) Malignant neoplasm of sigmoid colon [facility] Diagnosis Ventral hernia without obstruction [...] obstruction or gangrene [facility] Diagnosis Essential hypertension- Primary Unspecified essential hypertension Hyperlipidemia, mixed Mixed hyperlipidemia Elevated hemoglobin A1c Other abnormal blood chemistry Coronary artery disease involving [place] coronary artery of [place] heart without angina pectoris Paroxysmal atrial fibrillation [...] in place (HCC) Colostomy status Colostomy care (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 Hypertrophy of prostate with urinary obstruction and other lower urinary tract symptoms (LUTS) Spinal stenosis, lumbar region with neurogenic claudication Advance directive discussed with patient Other specified counseling Encounter for immunization Need for other specified prophylactic vaccination against single bacterial disease [facility] Diagnosis Hyperkalemia- Primary Hyperpotassemia [facility]* Diagnosis Rectal cancer (HCC)- Primary Malignant neoplasm of rectum Abnormal CT of the abdomen Nonspecific (abnormal) findings on radiological and other examination of abdominal area, including retroperitoneum [facility] Diagnosis Dermatitis- Primary Contact dermatitis and other eczema, due to unspecified cause [facility] Diagnosis Right leg pain- Primary Pain in limb Lumbar pain Lumbago Spinal stenosis, lumbar region with neurogenic claudication Frequent nocturnal awakening Other sleep disturbances Sleep apnea-like behavior Insomnia, unspecified type Cognitive impairment Unspecified persistent mental disorders due to conditions classified elsewhere [facility] Diagnosis Malignant neoplasm of sigmoid colon (HCC)- Primary Malignant neoplasm of sigmoid colon Rectal cancer (HCC) Malignant neoplasm of rectum Abnormal CT of the abdomen Nonspecific (abnormal) findings on radiological and other examination of abdominal area, including retroperitoneum [facility]* Diagnosis Fall, initial encounter- Primary [facility]* Diagnosis Spinal stenosis of lumbar region, unspecified whether neurogenic claudication present- Primary [facility]* Diagnosis Rectal cancer (HCC) Malignant neoplasm of rectum Elevated CEA Elevated carcinoembryonic antigen [CEA] Abnormal CT scan Other nonspecific (abnormal) findings on radiological and other examinations of body structure [facility]* Diagnosis Malignant neoplasm of sigmoid colon (HCC)- Primary Malignant neoplasm of sigmoid colon [facility] Diagnosis 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 [facility]* Diagnosis 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 [facility]* Diagnosis Situational depression- Primary Adjustment disorder with depressed mood SALAS (generalized anxiety disorder) Generalized anxiety disorder Cognitive impairment, mild, so stated Mild cognitive impairment, so stated [facility] Diagnosis 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 [facility]* Diagnosis Malignant neoplasm of sigmoid colon (HCC)- Primary Malignant neoplasm of sigmoid colon [facility] Diagnosis Cognitive impairment- Primary Unspecified persistent mental disorders due to conditions classified elsewhere [facility]* Diagnosis Medicare annual wellness visit, subsequent- Primary Routine general medical examination at a health care facility Essential hypertension Unspecified essential hypertension Hyperlipidemia, mixed Mixed hyperlipidemia Elevated hemoglobin A1c Other abnormal blood chemistry Paroxysmal atrial fibrillation (HCC) Atrial fibrillation Coronary artery disease involving [place] coronary artery of [place] heart without angina pectoris Bilateral carotid artery [...] neoplasm of prostate [facility]* Diagnosis Malignant neoplasm of rectum (HCC)- Primary Malignant neoplasm of rectum [facility] [...] of unspecified site [facility]* Diagnosis Malignant neoplasm of sigmoid colon (HCC)- Primary Malignant neoplasm of sigmoid colon [facility]* [...] of cerebral infarction [facility]* Diagnosis Upper respiratory virus- Primary Acute upper respiratory infections of unspecified site Acute cough [facility]* Diagnosis Dementia, unspecified dementia severity, unspecified dementia type, unspecified whether behavioral, psychotic, or mood disturbance or anxiety (HCC)- Primary [facility]* Diagnosis Rectal cancer (HCC) Malignant neoplasm of rectum [facility]* Diagnosis Malignant neoplasm of rectum (HCC) Malignant neoplasm of rectum [facility]* Diagnosis Malignant neoplasm of rectum (HCC) Malignant neoplasm of rectum [facility]* Diagnosis Dementia without behavioral disturbance (HCC) Dementia, unspecified, without behavioral disturbance Spinal stenosis of lumbar region with neurogenic claudication Spinal stenosis, lumbar region, with neurogenic claudication [facility]* Diagnosis Rectal cancer (HCC) Malignant neoplasm of rectum Abnormal CT of the abdomen Nonspecific (abnormal) findings on radiological and other examination of abdominal area, including retroperitoneum [facility]* Diagnosis Rectal cancer (HCC) Malignant neoplasm of rectum [facility]* Diagnosis Elbow effusion, left- Primary SALAS (generalized anxiety disorder) Generalized anxiety disorder documented in this encounter [facility]* Diagnosis Polypharmacy- Primary Encounter [...] hazards to health [facility]* Diagnosis Dysuria- Primary Urinary tract infection with hematuria, site unspecified [facility]* Diagnosis Pain of right hip- Primary [facility]* Diagnosis SALAS (generalized anxiety disorder) Generalized anxiety disorder [facility]* Diagnosis Dementia, unspecified dementia severity, unspecified dementia type, unspecified whether behavioral, psychotic, or mood disturbance or anxiety (HCC) Alcohol dependence with uncomplicated intoxication (HCC) Acute alcoholic intoxication in alcoholism, unspecified [facility]* Diagnosis Lower resp. tract infection- Primary Other diseases of respiratory system, not elsewhere classified Acute cough [facility]* Diagnosis Malignant neoplasm of sigmoid colon (HCC)- Primary Malignant neoplasm of sigmoid colon [facility]* Diagnosis Abnormal chest x-ray Other nonspecific abnormal finding of lung field [facility]* Diagnosis 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) documented [facility]* Diagnosis Rectal cancer (HCC)- Primary Malignant neoplasm of rectum [facility]* Diagnosis Polypharmacy- Primary Encounter for long-term (current) use of other medications Alcohol dependence with uncomplicated intoxication (HCC) Acute alcoholic intoxication in alcoholism, unspecified Dementia, unspecified dementia severity, unspecified dementia type, unspecified whether behavioral, psychotic, or mood disturbance or anxiety (HCC) [facility]* Diagnosis Situational depression Adjustment disorder with depressed mood Frequent nocturnal awakening Other sleep disturbances [facility]* Diagnosis Rectal cancer (HCC) Malignant neoplasm of rectum [facility]* Diagnosis Malignant neoplasm of colon, unspecified part of colon (HCC)- Primary [facility]* Diagnosis Dementia with behavioral disturbance (HCC)- Primary Dementia, unspecified, with behavioral disturbance Essential hypertension Unspecified essential hypertension Hyperlipidemia, mixed Mixed hyperlipidemia SALAS (generalized anxiety disorder) Generalized anxiety disorder Coronary artery disease involving [place] coronary artery of [place] heart without angina pectoris Paroxysmal atrial fibrillation (HCC) Atrial fibrillation Elevated hemoglobin A1c Other abnormal blood chemistry Situational depression Adjustment disorder with depressed mood BPH with obstruction/lower urinary tract symptoms Hypertrophy of prostate with urinary obstruction and other lower urinary tract symptoms (LUTS) Sexually acting out Malignant neoplasm of sigmoid colon (HCC) Malignant neoplasm of sigmoid colon Malignant neoplasm of ascending colon (HCC) Malignant neoplasm of ascending colon 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 Rectal cancer (HCC) Malignant neoplasm of rectum Malignant neoplasm of colon, unspecified part of colon (HCC) Primary insomnia Persistent disorder of initiating or maintaining sleep Alcohol use disorder 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) Colostomy status Colostomy care (HCC) Attention to colostomy 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) Ileostomy status Chronic midline low back pain with right-sided sciatica Generalized weakness Other malaise and fatigue Falls frequently Personal history of fall Decreased transfer ability Other general symptoms [facility]* Diagnosis Falls frequently- Primary Personal history of fall Generalized weakness Other malaise and fatigue Spinal stenosis, lumbar region with neurogenic claudication [facility]* Diagnosis Rectal cancer (HCC) Malignant neoplasm of rectum Malignant neoplasm of colon, unspecified part of colon (HCC) documented [facility]* Diagnosis Hyperkalemia- Primary Hyperpotassemia TORRIE (acute kidney injury) (HCC) Acute kidney failure, unspecified [facility]* Diagnosis Renal insufficiency- Primary Unspecified disorder of kidney and ureter Hypercalcemia [facility] Diagnosis Malignant neoplasm of sigmoid colon (HCC)- Primary Malignant neoplasm of sigmoid colon Malignant neoplasm of rectum (HCC) Malignant neoplasm of rectum [facility]* Diagnosis Dementia with behavioral disturbance (HCC)- Primary Dementia, unspecified, with behavioral disturbance [facility]* Diagnosis Hyperkalemia- Primary Hyperpotassemia documented [facility]* Diagnosis Inappropriate sexual behavior [facility]* Diagnosis Acute renal failure, unspecified acute renal failure type (HCC)- Primary documented in this encounter [facility]* Diagnosis Calculus of gallbladder with chronic cholecystitis without obstruction- Primary Calculus of gallbladder with other cholecystitis, without mention of obstruction [facility]* Diagnosis Vasculopathy Unspecified circulatory system disorder Bilateral carotid artery stenosis Occlusion and stenosis of carotid artery without mention of cerebral infarction Syncope, unspecified syncope type Occlusion and stenosis of unspecified carotid artery documented in this encounter [facility] note* Diagnosis Orthostatic hypotension- Primary Falls frequently Personal history of fall 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) documented [facility]* Diagnosis Malignant neoplasm of sigmoid colon (HCC)- Primary Malignant neoplasm of sigmoid colon documented in this encounter [facility] note* Diagnosis Pain of right hip documented in this encounter [facility] note* Diagnosis Acute cough URI, acute Acute upper respiratory infections of unspecified site documented in this encounter [facility] for referral (narrative)* Outpatient Procedure (Routine) - Authorized Specialty Diagnoses / Procedures Referred By Vanessaac t Referred To Contact [facility] [place] Diagnoses Bilateral carotid artery stenosis Procedures US CAROTID ARTERIES [facility] DUPLEX SCAN EXTRACRANIAL ART COMPL BI STUDY Jeanne Oneal DO [address] [place] [address] [facility] [place] [address] [place] [address] Referral ID Status Reason Start Date Expiration Date Visits Requested Visits Authorized [id number] Authorized Auto-Generat ed Referral 03/26/2022 03/26/2023 1 1 [facility] for referral (narrative)* Diagnostic Procedure Only (Routine) - Closed Specialty Diagnoses / Procedures Referred By Contac t Referred To Contact MOLECULAR [facility] FUNCTIONAL IMAG[facility] Diagnoses Rectal cancer (HCC) Elevated CEA Abnormal CT scan Procedures NM PET/CT SKULL-THIGH INITIAL PET IMAGING CT ATTENUATION SKULL BASE MID-THIGH Ashley Marshall APRN.CNP [address] [place] [address] Molecular & Functional Imaging [address] [place], [place] [id number] Referral ID Status Reason Start Date Expiration Date V isits Requested Visits Authorized [id number] Closed Auto-Generate d Referral 11/14/2022 12/14/2023 1 1 [facility] for referral (narrative)* Diagnostic Procedure Only (Routine) - Pending Review Specialty Diagnoses / Procedures Referred By Contac t Referred To Contact XR IMAGING Diagnoses Pain of right hip Procedures XR HIP GENERAL 3V PELV/AP/LAT RIGHT RADEX HIP UNILATERAL WITH PELVIS 2-3 VIEWS Vishal Jones MD [address] [place] [address] [place] [address] Referral ID Status Reason Start Date Expiration Date Visits Requested Visits Authorized [id number] Pending Review Auto-Generat ed Referral 10/28/2023 11/26/2024 1 1 [facility] for referral (narrative)* Diagnostic Procedure Only (Routine) - Closed Specialty Diagnoses / Procedures Referred By Contac t Referred To Contact XR IMAGING Diagnoses Pain of right hip Procedures XR HIP GENERAL 3V PELV/AP/LAT RIGHT RADEX HIP UNILATERAL WITH PELVIS 2-3 VIEWS Vishal Jones MD [address] [place] [address] [place] [address] Referral ID Status Reason Start Date Expiration Date V isits Requested Visits Authorized [id number] Closed Auto-Generate d Referral 10/28/2023 11/26/2024 1 1 [facility] for visit Narrative* Diagnostic Procedure Only (Routine) - Closed Specialty Diagnoses / Procedures Referred By Contac t Referred To Contact MOLECULAR & FUNCTIONAL IMAGING Diagnoses Rectal cancer (HCC) Elevated CEA Abnormal CT scan Procedures NM PET/CT SKULL-THIGH INITIAL PET IMAGING CT ATTENUATION SKULL BASE MID-THIGH Ashley Marshall APRN.RUMPER [address] [place] [address] Molecular & Functional Imaging [address] [place] [address] Referral ID Status Reason Start Date Expiration Date V isits Requested Visits Authorized [id number] Closed Auto-Generate d Referral 11/14/2022 12/14/2023 1 1 [facility] for visit Narrative* Diagnostic Procedure Only (Routine) - Closed Specialty Diagnoses / Procedures Referred By Contac t Referred To Contact XR IMAGING Diagnoses Pain of right hip Procedures XR HIP GENERAL 3V PELV/AP/LAT RIGHT RADEX HIP UNILATERAL WITH PELVIS 2-3 VIEWS Vishal Jones MD [address] [place] [address] [place] [address] Referral ID Status Reason Start Date Expiration Date V isits Requested Visits Authorized [id number] Closed Auto-Generate d Referral 10/28/2023 11/26/2024 1 1 [facility] Summary Purpose Family History No Family History Records FoundNo Family History Records FoundNo Family History Records FoundNo Family History Records Found Advance Directives Documents on File Type Date Recorded Patient Swatch Folder Expl anation Advance Directive(s) 07/20/2017 8:54 AM Date Activated Date Inactivated Comments 08/18/2020 2:14 PM 08/19/2020 12:20 PM Latest Code Status on File Code Status Date Activated Date Inactivated Comments Full Code 08/18/2020 2:14 PM 08/19/2020 12:20 PM Documents on File Type Date Recorded Patient Swatch Folder Expl anation Advance Directive(s) 08/19/2020 2:53 PM Advance Directive(s) 08/05/2020 3:02 AM Advance Directive(s) 08/03/2020 8:57 AM Advance Directive(s) 12/23/2019 5:57 AM Advance Directive(s) 08/06/2019 7:25 AM Advance Directive(s) 07/20/2017 8:54 AM Advance Directive(s) 07/02/2017 4:27 PM Documents on File Type Date Recorded Patient Swatch Folder Expl anation Advance Directive(s) 08/19/2020 2:53 PM [...] Documents on File Type Date Recorded Patient Swatch Folder Expl anation Advance Directive(s) 07/20/2017 8:54 AM Latest Code Status on File Code Status Date Activated Date Inactivated Comments Full Code 08/18/2020 2:14 PM 08/19/2020 12:20 PM Latest Code Status on File Code Status Date Activated Date Inactivated Comments Full Code 08/18/2020 2:14 PM 08/19/2020 12:20 PM Date Activated Date Inactivated Comments 08/18/2020 2:14 PM 08/19/2020 12:20 PM Reason for Referral Specialty Diagnoses / Procedures Referred By Contac t Referred To Contact CT IMAGING Diagnoses Rectal cancer (HCC) Procedures CT CHEST W IVCON DIAGNOSTIC COMPUTED TOMOGRAPHY THORAX W/CONTRAST Ashley Marshall, SAKINA.RUMPER [address] [place] [address] Ct Imaging Referral ID Status Reason Start Date Expiration Date V isits Requested Visits Authorized [id number] Closed Auto-Generate d Referral 11/14/2021 12/14/2022 1 1 Specialty Diagnoses / Procedures Referred By Contac t Referred To Contact CT IMAGING Diagnoses Rectal cancer (HCC) Procedures CT ABD/PEL W IVCON CT ABD & PELVIS W/CONTRAST Ashley Marshall APRN.RUMPER [address] [place] [address] Ct Imaging Referral ID Status Reason Start Date Expiration Date V isits Requested Visits Authorized [id number] Closed Auto-Generate d Referral 11/14/2021 12/14/2022 1 1 Referral ID Status Reason Start Date Expiration Date Visits Requested Visits Authorized [id number] Authorized Auto-Generat ed Referral 03/21/2022 04/20/2023 1 1 Referral ID Status Reason Start Date Expiration Date Visits Requested Visits Authorized [id number] Authorized Auto-Generat ed Referral 03/21/2022 04/20/2023 1 1 Specialty Diagnoses / Procedures Referred By Contac t Referred To Contact Orthopedics Diagnoses Arthritis of right hip Arthritis, lumbar spine Procedures CONSULT TO ORTHOPAEDICS OFFICE/OUTPATIENT [facility] 60-74 MINUTES Vishal Jones MD [address] [place] [address] Referral ID Status Reason Start Date Expiration Date Visits Requested Visits Authorized [id number] Authorized PCP Requested Referral 07/24/2022 07/24/2023 1 1 Specialty Diagnoses / Procedures Referred By Contac t Referred To Contact CT IMAGING Diagnoses Rectal cancer (HCC) Abnormal CT of the abdomen Procedures CT ABD/PEL W IVCON CT ABD & PELVIS W/CONTRAST Ashley Marshall APRN.RUMPER [address] [place] [address] Ct Imaging Referral ID Status Reason Start Date Expiration Date Visits Requested Visits Authorized [id number] Authorized Auto-Generat ed Referral 10/09/2022 11/08/2023 1 1 Specialty Diagnoses / Procedures Referred By Contac t Referred To Contact Neurosurgery Diagnoses Spinal stenosis of lumbar region, unspecified whether neurogenic claudication present Procedures CONSULT TO NEUROSURGERY Edmar Liu Jr., [place] [address] [address] Referral ID Status Reason Start Date Expiration Date Visits Requested Visits Authorized [id number] Ref Not Required PCP Requested Referral 11/28/2022 02/26/2023 3 3 Specialty Diagnoses / Procedures Referred By Contac t Referred To Contact Diagnoses 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) Procedures CT SIM PLANNING RADIATION ONCOLOGY THER RAD SIMULAJ-AIDED FIELD SETTING COMPLEX Clement Werner MD, MD [address] [place] [address] Referral ID Status Reason Start Date Expiration Date Visits Requested Visits Authorized [id number] Pending Review PCP Requested Referral 12/30/2022 03/25/2023 1 1 Specialty Diagnoses / Procedures Referred By Contac t Referred To Contact CT IMAGING Diagnoses Malignant neoplasm of rectum (HCC) Procedures CT CHEST W IVCON DIAGNOSTIC COMPUTED TOMOGRAPHY THORAX W/CONTRAST Howie Greenberg, [address] [place] [address] Ct Imaging Referral ID Status Reason Start Date Expiration Date Visits Requested Visits Authorized [id number] Authorized Auto-Generat ed Referral 04/01/2023 04/30/2024 1 1 Specialty Diagnoses / Procedures Referred By Contac t Referred To Contact CT IMAGING Diagnoses Malignant neoplasm of rectum (HCC) Procedures CT ABD/PEL W IVCON CT ABD & PELVIS W/CONTRAST Howie Greenberg, [address] [place] [address] Ct Imaging Referral ID Status Reason Start Date Expiration Date Visits Requested Visits Authorized [id number] Authorized Auto-Generat ed Referral 04/01/2023 04/30/2024 1 1 Specialty Diagnoses / Procedures Referred By Contac t Referred To Contact Neurology Diagnoses Dementia, unspecified dementia severity, unspecified dementia type, unspecified whether behavioral, psychotic, or mood disturbance or anxiety (HCC) Procedures CONSULT TO NEUROLOGY OFFICE/OUTPATIENT [facility] 60-74 MINUTES Edmar Liu Jr., MD [address] [place] [address] [address] [place] [address] Referral ID Status Reason Start Date Expiration Date Visits Requested Visits Authorized [id number] Authorized PCP Requested Referral 06/29/2024 1 1 Specialty Diagnoses / Procedures Referred By Contac t Referred To Contact CT IMAGING Diagnoses Malignant neoplasm of rectum (HCC) Procedures CT CHEST W IVCON DIAGNOSTIC COMPUTED TOMOGRAPHY THORAX W/CONTRAST Howie Greenberg, [address] [place] [address] [place] [address] Referral ID Status Reason Start Date Expiration Date V isits Requested Visits Authorized [id number] Closed Auto-Generate d Referral 04/01/2023 04/30/2024 1 1 Specialty Diagnoses / Procedures Referred By Contac t Referred To Contact CT IMAGING Diagnoses Malignant neoplasm of rectum (HCC) Procedures CT ABD/PEL W IVCON CT ABD & PELVIS W/CONTRAST Howie Greenberg, DO [address] [place] [address] [place] [address] Referral ID Status Reason Start Date Expiration Date V isits Requested Visits Authorized [id number] Closed Auto-Generate d Referral 04/01/2023 04/30/2024 1 1 Referral ID Status Reason Start Date Expiration Date V isits Requested Visits Authorized [id number] Closed Auto-Generate d Referral 02/25/2023 03/26/2024 1 1 Referral ID Status Reason Start Date Expiration Date V isits Requested Visits Authorized [id number] Closed Auto-Generate d Referral 02/25/2023 03/26/2024 1 1 Specialty Diagnoses / Procedures Referred By Contac t Referred To Contact MR IMAGING Diagnoses Spinal stenosis of lumbar region with neurogenic claudication Procedures MRI LUMBAR SPINE WO IVCON MRI SPINAL CANAL LUMBAR W/O CONTRAST MATERIAL Edmar Liu Jr., MD [address] [place] [phone] [place] [address] Referral ID Status Reason Start Date Expiration Date V isits Requested Visits Authorized [id number] Closed Auto-Generate d Referral 06/24/2022 07/24/2023 1 1 Specialty Diagnoses / Procedures Referred By Contac t Referred To Contact MR IMAGING Diagnoses Dementia without behavioral disturbance (HCC) Procedures MRI BRAIN WO IVCON MRI BRAIN BRAIN STEM W/O CONTRAST MATERIAL Edmar Liu Jr., MD [facility] [address] [place] [address] [place] [address] Referral ID Status Reason Start Date Expiration Date V isits Requested Visits Authorized [id number] Closed Auto-Generate d Referral 06/24/2022 07/24/2023 1 1 Specialty Diagnoses / Procedures Referred By Contac t Referred To Contact CT IMAGING Diagnoses Rectal cancer (HCC) Abnormal CT of the abdomen Procedures CT ABD/PEL W IVCON CT ABD & PELVIS W/CONTRAST Ashley Marshall APRN.RUMPER [address] [place] [address] [place] [address] Referral ID Status Reason Start Date Expiration Date V isits Requested Visits Authorized [id number] Closed Auto-Generate d Referral 10/09/2022 11/08/2023 1 1 Specialty Diagnoses / Procedures Referred By Contac t Referred To Contact CT IMAGING Diagnoses Rectal cancer (HCC) Procedures CT CHEST W IVCON DIAGNOSTIC COMPUTED TOMOGRAPHY THORAX W/CONTRAST Ashley Marshall APRN.RUMPER [address] [place] [address] [place] [address] Referral ID Status Reason Start Date Expiration Date V isits Requested Visits Authorized [id number] Closed Auto-Generate d Referral 03/21/2022 04/20/2023 1 1 Specialty Diagnoses / Procedures Referred By Contac t Referred To Contact CT IMAGING Diagnoses Rectal cancer (HCC) Procedures CT ABD/PEL W IVCON CT ABD & PELVIS W/CONTRAST Ashley Marshall APRN.RUMPER [address] [place] [address] [place] [address] Referral ID Status Reason Start Date Expiration Date V isits Requested Visits Authorized [id number] Closed Auto-Generate d Referral 03/21/2022 04/20/2023 1 1 Specialty Diagnoses / Procedures Referred By Contac t Referred To Contact Orthopedics Diagnoses Elbow effusion, left Procedures CONSULT TO ORTHOPAEDICS OFFICE/OUTPATIENT [facility] 60-74 MINUTES Ren Chua APRN.RUMPER [address] [place] [address] Referral ID Status Reason Start Date Expiration Date Visits Requested Visits Authorized [id number] Authorized PCP Requested Referral 3 07/31/2024 1 1 Specialty Diagnoses / Procedures Referred By Contac t Referred To Contact MR IMAGING Diagnoses Dementia, unspecified dementia severity, unspecified dementia type, unspecified whether behavioral, psychotic, or mood disturbance or anxiety (HCC) Alcohol dependence with uncomplicated intoxication (HCC) Procedures MRI 3D POST PROCESSING 3D RENDERING W/INTERP&POSTPROC DIFF WORK STATION Chapincito Tomlin MD [address] [place] [address] Mr Imaging [place] [address] Referral ID Status Reason Start Date Expiration Date Visits Requested Visits Authorized [id number] Authorized Auto-Generat ed Referral 3 09/24/2024 1 1 Specialty Diagnoses / Procedures Referred By Contac t Referred To Contact MR IMAGING Diagnoses Dementia, unspecified dementia severity, unspecified dementia type, unspecified whether behavioral, psychotic, or mood disturbance or anxiety (HCC) Alcohol dependence with uncomplicated intoxication (HCC) Procedures MRI BRAIN W QUANT WO IVCON MRI BRAIN BRAIN STEM W/O CONTRAST MATERIAL Chapincito Tomlin MD [address] [address] Mr Imaging [place] [address] Referral ID Status Reason Start Date Expiration Date Visits Requested Visits Authorized [id number] Authorized Auto-Generat ed Referral 3 09/24/2024 1 1 Specialty Diagnoses / Procedures Referred By Contac t Referred To Contact CT IMAGING Diagnoses Abnormal chest x-ray Procedures CT CHEST W IVCON PE DIAGNOSTIC COMPUTED TOMOGRAPHY THORAX W/CONTRAST Allyson Hernandez, DIRECTOR IMMUNOLOGY.RUMPER [address] [place] [address] Ct Imaging [place] [address] Referral ID Status Reason Start Date Expiration Date V isits Requested Visits Authorized [id number] Closed Auto-Generate d Referral 11/12/2023 12/11/2024 1 1 Specialty Diagnoses / Procedures Referred By Contac t Referred To Contact CT IMAGING Diagnoses Malignant neoplasm of colon, unspecified part of colon (HCC) Procedures CT ABD/PEL WO IVCON CT ABD & PELVIS W/O CONTRAST Ashley Marshall, DIRECTOR IMMUNOLOGY.RUMPER [address] [place] [address] Ct Imaging [place] [address] Referral ID Status Reason Start Date Expiration Date Visits Requested Visits Authorized [id number] Authorized Auto-Generat ed Referral 12/25/2023 01/23/2025 2 2 Specialty Diagnoses / Procedures Referred By Contac t Referred To Contact CT IMAGING Diagnoses Malignant neoplasm of colon, unspecified part of colon (HCC) Procedures CT CHEST WO IVCON DIAGNOSTIC COMPUTED TOMOGRAPHY THORAX W/O CNTRST Ashley Marshall, DIRECTOR IMMUNOLOGY.RUMPER [address] [place] [address] [place] [address] Referral ID Status Reason Start Date Expiration Date V isits Requested Visits Authorized [id number] Closed Auto-Generate d Referral 12/25/2023 01/23/2025 1 1 Specialty Diagnoses / Procedures Referred By Contac t Referred To Contact Ren Chua APRN.RUMPER [address] [place] [address] Referral ID Status Reason Start Date Expiration Date V isits Requested Visits Authorized [id number] Authorized 09/30/2023 12/28/2024 1 1 Specialty Diagnoses / Procedures Referred By Contac t Referred To Contact CT IMAGING Diagnoses Vasculopathy Bilateral carotid artery stenosis Syncope, unspecified syncope type Occlusion and stenosis of unspecified carotid artery Procedures CTA NECK W IVCON CT ANGIOGRAPHY NECK W/CONTRAST/NONCONTRAST Vishal Jones MD [address] [place] [address] [place] [address] Referral ID Status Reason Start Date Expiration Date V isits Requested Visits Authorized [id number] Closed Auto-Generate d Referral 01/09/2024 2025 1 1 Specialty Diagnoses / Procedures Referred By Contac t Referred To Contact CT IMAGING Diagnoses Vasculopathy Bilateral carotid artery stenosis Syncope, unspecified syncope type Procedures CTA HEAD W IVCON CT ANGIOGRAPHY HEAD W/CONTRAST/NONCONTRAST Vishal Jones MD [address] [place] [address] [place] [address] Referral ID Status Reason Start Date Expiration Date V isits Requested Visits Authorized [id number] Closed Auto-Generate d Referral 01/09/2024 2025 1 1 Health Concerns Infection Onset Date Last Indicated Resolved Time Influenza 11/12/2023 11/12/2023 Infection Onset Date Last Indicated Resolved Time Influenza 11/12/2023 11/12/2023 Additional Source Comments (unrecognized sect ion and content) No Status Records FoundNo Status Records FoundNo Status Records FoundNo Status Records Found INFORMATION SOURCE (unrecogn ized section and content) DATE CREATED AUTHOR 06/13/2021 [facility] DATE CREATED AUTHOR AUTHOR'S ORGANIZ ATION 08/07/2022 [facility] DATE CREATED AUTHOR AUTHOR'S ORGANIZ ATION 11/01/2023 [facility] DATE CREATED AUTHOR AUTHOR'S ORGANIZ ATION 05/14/2024 [facility] Source Comments (unrecognize d section and content) In the event this informatio n is protected by the Federal Confidentiality of Alcohol and Drug Abuse Patient Records regulations: The Federal rules restrict any use of the information to criminally investigate or prosecute any alcohol or drug abuse patient.[facility] the event this information is protected by the Federal Confidentiality of Alcohol and Drug Abuse Patient Records regulations: The Federal rules restrict any use of the information to criminally investigate or prosecute any alcohol or drug abuse patient.[facility] HospitalIn the event this information is protected by the Federal Confidentiality of Alcohol and Drug Abuse Patient Records regulations: The Federal rules restrict any use of the information to criminally investigate or prosecute any alcohol or drug abuse patient.[facility] HospitalIn the event this information is protected by the Federal Confidentiality of Alcohol and Drug Abuse Patient Records regulations: The Federal rules restrict any use of the information to criminally investigate or prosecute any alcohol or drug abuse patient.[facility] HospitalIn the event this information is protected by the Federal Confidentiality of Alcohol and Drug Abuse Patient Records regulations: The Federal rules restrict any use of the information to criminally investigate or prosecute any alcohol or drug abuse patient.[facility] HospitalIn the event this information is protected by the Federal Confidentiality of Alcohol and Drug Abuse Patient Records regulations: The Federal rules restrict any use of the information to criminally investigate or prosecute any alcohol or drug abuse patient.[facility] HospitalIn the event this information is protected by the Federal Confidentiality of Alcohol and Drug Abuse Patient Records regulations: The Federal rules restrict any use of the information to criminally investigate or prosecute any alcohol or drug abuse patient.[facility] HospitalIn the event this information is protected by the Federal Confidentiality of Alcohol and Drug Abuse Patient Records regulations: The Federal rules restrict any use of the information to criminally investigate or prosecute any alcohol or drug abuse patient.[facility] HospitalIn the event this information is protected by the Federal Confidentiality of Alcohol and Drug Abuse Patient Records regulations: The Federal rules restrict any use of the information to criminally investigate or prosecute any alcohol or drug abuse patient.[facility] HospitalIn the event this information is protected by the Federal Confidentiality of Alcohol and Drug Abuse Patient Records regulations: The Federal rules restrict any use of the information to criminally investigate or prosecute any alcohol or drug abuse patient.[facility] HospitalIn the event this information is protected by the Federal Confidentiality of Alcohol and Drug Abuse Patient Records regulations: The Federal rules restrict any use of the information to criminally investigate or prosecute any alcohol or drug abuse patient.[facility] HospitalIn the event this information is protected by the Federal Confidentiality of Alcohol and Drug Abuse Patient Records regulations: The Federal rules restrict any use of the information to criminally investigate or prosecute any alcohol or drug abuse patient.[facility] HospitalIn the event this information is protected by the Federal Confidentiality of Alcohol and Drug Abuse Patient Records regulations: The Federal rules restrict any use of the information to criminally investigate or prosecute any alcohol or drug abuse patient.[facility] HospitalIn the event this information is protected by the Federal Confidentiality of Alcohol and Drug Abuse Patient Records regulations: The Federal rules restrict any use of the information to criminally investigate or prosecute any alcohol or drug abuse patient.[facility] HospitalIn the event this information is protected by the Federal Confidentiality of Alcohol and Drug Abuse Patient Records regulations: The Federal rules restrict any use of the information to criminally investigate or prosecute any alcohol or drug abuse patient.[facility] HospitalIn the event this information is protected by the Federal Confidentiality of Alcohol and Drug Abuse Patient Records regulations: The Federal rules restrict any use of the information to criminally investigate or prosecute any alcohol or drug abuse patient.[facility] HospitalIn the event this information is protected by the Federal Confidentiality of Alcohol and Drug Abuse Patient Records regulations: The Federal rules restrict any use of the information to criminally investigate or prosecute any alcohol or drug abuse patient.[facility] HospitalIn the event this information is protected by the Federal Confidentiality of Alcohol and Drug Abuse Patient Records regulations: The Federal rules restrict any use of the information to criminally investigate or prosecute any alcohol or drug abuse patient.[facility] HospitalIn the event this information is protected by the Federal Confidentiality of Alcohol and Drug Abuse Patient Records regulations: The Federal rules restrict any use of the information to criminally investigate or prosecute any alcohol or drug abuse patient.[facility] HospitalIn the event this information is protected by the Federal Confidentiality of Alcohol and Drug Abuse Patient Records regulations: The Federal rules restrict any use of the information to criminally investigate or prosecute any alcohol or drug abuse patient.[facility] HospitalIn the event this information is protected by the Federal Confidentiality of Alcohol and Drug Abuse Patient Records regulations: The Federal rules restrict any use of the information to criminally investigate or prosecute any alcohol or drug abuse patient.[facility] HospitalIn the event this information is protected by the Federal Confidentiality of Alcohol and Drug Abuse Patient Records regulations: The Federal rules restrict any use of the information to criminally investigate or prosecute any alcohol or drug abuse patient.[facility] HospitalIn the event this information is protected by the Federal Confidentiality of Alcohol and Drug Abuse Patient Records regulations: The Federal rules restrict any use of the information to criminally investigate or prosecute any alcohol or drug abuse patient.[facility] HospitalIn the event this information is protected by the Federal Confidentiality of Alcohol and Drug Abuse Patient Records regulations: The Federal rules restrict any use of the information to criminally investigate or prosecute any alcohol or drug abuse patient.[facility] HospitalIn the event this information is protected by the Federal Confidentiality of Alcohol and Drug Abuse Patient Records regulations: The Federal rules restrict any use of the information to criminally investigate or prosecute any alcohol or drug abuse patient.[facility] HospitalIn the event this information is protected by the Federal Confidentiality of Alcohol and Drug Abuse Patient Records regulations: The Federal rules restrict any use of the information to criminally investigate or prosecute any alcohol or drug abuse patient.[facility] HospitalIn the event this information is protected by the Federal Confidentiality of Alcohol and Drug Abuse Patient Records regulations: The Federal rules restrict any use of the information to criminally investigate or prosecute any alcohol or drug abuse patient.[facility] HospitalIn the event this information is protected by the Federal Confidentiality of Alcohol and Drug Abuse Patient Records regulations: The Federal rules restrict any use of the information to criminally investigate or prosecute any alcohol or drug abuse patient.[facility] HospitalIn the event this information is protected by the Federal Confidentiality of Alcohol and Drug Abuse Patient Records regulations: The Federal rules restrict any use of the information to criminally investigate or prosecute any alcohol or drug abuse patient.[facility] HospitalIn the event this information is protected by the Federal Confidentiality of Alcohol and Drug Abuse Patient Records regulations: The Federal rules restrict any use of the information to criminally investigate or prosecute any alcohol or drug abuse patient.[facility] HospitalIn the event this information is protected by the Federal Confidentiality of Alcohol and Drug Abuse Patient Records regulations: The Federal rules restrict any use of the information to criminally investigate or prosecute any alcohol or drug abuse patient.[facility] HospitalIn the event this information is protected by the Federal Confidentiality of Alcohol and Drug Abuse Patient Records regulations: The Federal rules restrict any use of the information to criminally investigate or prosecute any alcohol or drug abuse patient.[facility] HospitalIn the event this information is protected by the Federal Confidentiality of Alcohol and Drug Abuse Patient Records regulations: The Federal rules restrict any use of the information to criminally investigate or prosecute any alcohol or drug abuse patient.[facility] HospitalIn the event this information is protected by the Federal Confidentiality of Alcohol and Drug Abuse Patient Records regulations: The Federal rules restrict any use of the information to criminally investigate or prosecute any alcohol or drug abuse patient.[facility] HospitalIn the event this information is protected by the Federal Confidentiality of Alcohol and Drug Abuse Patient Records regulations: The Federal rules restrict any use of the information to criminally investigate or prosecute any alcohol or drug abuse patient.[facility] HospitalIn the event this information is protected by the Federal Confidentiality of Alcohol and Drug Abuse Patient Records regulations: The Federal rules restrict any use of the information to criminally investigate or prosecute any alcohol or drug abuse patient.[facility] HospitalIn the event this information is protected by the Federal Confidentiality of Alcohol and Drug Abuse Patient Records regulations: The Federal rules restrict any use of the information to criminally investigate or prosecute any alcohol or drug abuse patient.[facility] HospitalIn the event this information is protected by the Federal Confidentiality of Alcohol and Drug Abuse Patient Records regulations: The Federal rules restrict any use of the information to criminally investigate or prosecute any alcohol or drug abuse patient.[facility] HospitalIn the event this information is protected by the Federal Confidentiality of Alcohol and Drug Abuse Patient Records regulations: The Federal rules restrict any use of the information to criminally investigate or prosecute any alcohol or drug abuse patient.[facility] HospitalIn the event this information is protected by the Federal Confidentiality of Alcohol and Drug Abuse Patient Records regulations: The Federal rules restrict any use of the information to criminally investigate or prosecute any alcohol or drug abuse patient.[facility] HospitalIn the event this information is protected by the Federal Confidentiality of Alcohol and Drug Abuse Patient Records regulations: The Federal rules restrict any use of the information to criminally investigate or prosecute any alcohol or drug abuse patient.[facility] HospitalIn the event this information is protected by the Federal Confidentiality of Alcohol and Drug Abuse Patient Records regulations: The Federal rules restrict any use of the information to criminally investigate or prosecute any alcohol or drug abuse patient.[facility] HospitalIn the event this information is protected by the Federal Confidentiality of Alcohol and Drug Abuse Patient Records regulations: The Federal rules restrict any use of the information to criminally investigate or prosecute any alcohol or drug abuse patient.[facility] HospitalIn the event this information is protected by the Federal Confidentiality of Alcohol and Drug Abuse Patient Records regulations: The Federal rules restrict any use of the information to criminally investigate or prosecute any alcohol or drug abuse patient.[facility] HospitalIn the event this information is protected by the Federal Confidentiality of Alcohol and Drug Abuse Patient Records regulations: The Federal rules restrict any use of the information to criminally investigate or prosecute any alcohol or drug abuse patient.[facility] HospitalIn the event this information is protected by the Federal Confidentiality of Alcohol and Drug Abuse Patient Records regulations: The Federal rules restrict any use of the information to criminally investigate or prosecute any alcohol or drug abuse patient.[facility] HospitalIn the event this information is protected by the Federal Confidentiality of Alcohol and Drug Abuse Patient Records regulations: The Federal rules restrict any use of the information to criminally investigate or prosecute any alcohol or drug abuse patient.[facility] HospitalIn the event this information is protected by the Federal Confidentiality of Alcohol and Drug Abuse Patient Records regulations: The Federal rules restrict any use of the information to criminally investigate or prosecute any alcohol or drug abuse patient.[facility] HospitalIn the event this information is protected by the Federal Confidentiality of Alcohol and Drug Abuse Patient Records regulations: The Federal rules restrict any use of the information to criminally investigate or prosecute any alcohol or drug abuse patient.[facility] HospitalIn the event this information is protected by the Federal Confidentiality of Alcohol and Drug Abuse Patient Records regulations: The Federal rules restrict any use of the information to criminally investigate or prosecute any alcohol or drug abuse patient.[facility] HospitalIn the event this information is protected by the Federal Confidentiality of Alcohol and Drug Abuse Patient Records regulations: The Federal rules restrict any use of the information to criminally investigate or prosecute any alcohol or drug abuse patient.[facility] HospitalIn the event this information is protected by the Federal Confidentiality of Alcohol and Drug Abuse Patient Records regulations: The Federal rules restrict any use of the information to criminally investigate or prosecute any alcohol or drug abuse patient.[facility] HospitalIn the event this information is protected by the Federal Confidentiality of Alcohol and Drug Abuse Patient Records regulations: The Federal rules restrict any use of the information to criminally investigate or prosecute any alcohol or drug abuse patient.[facility] HospitalIn the event this information is protected by the Federal Confidentiality of Alcohol and Drug Abuse Patient Records regulations: The Federal rules restrict any use of the information to criminally investigate or prosecute any alcohol or drug abuse patient.[facility] HospitalIn the event this information is protected by the Federal Confidentiality of Alcohol and Drug Abuse Patient Records regulations: The Federal rules restrict any use of the information to criminally investigate or prosecute any alcohol or drug abuse patient.[facility] HospitalIn the event this information is protected by the Federal Confidentiality of Alcohol and Drug Abuse Patient Records regulations: The Federal rules restrict any use of the information to criminally investigate or prosecute any alcohol or drug abuse patient.[facility] HospitalIn the event this information is protected by the Federal Confidentiality of Alcohol and Drug Abuse Patient Records regulations: The Federal rules restrict any use of the information to criminally investigate or prosecute any alcohol or drug abuse patient.[facility] HospitalIn the event this information is protected by the Federal Confidentiality of Alcohol and Drug Abuse Patient Records regulations: The Federal rules restrict any use of the information to criminally investigate or prosecute any alcohol or drug abuse patient.[facility] HospitalIn the event this information is protected by the Federal Confidentiality of Alcohol and Drug Abuse Patient Records regulations: The Federal rules restrict any use of the information to criminally investigate or prosecute any alcohol or drug abuse patient.[facility] HospitalIn the event this information is protected by the Federal Confidentiality of Alcohol and Drug Abuse Patient Records regulations: The Federal rules restrict any use of the information to criminally investigate or prosecute any alcohol or drug abuse patient.[facility] HospitalIn the event this information is protected by the Federal Confidentiality of Alcohol and Drug Abuse Patient Records regulations: The Federal rules restrict any use of the information to criminally investigate or prosecute any alcohol or drug abuse patient.[facility] HospitalIn the event this information is protected by the Federal Confidentiality of Alcohol and Drug Abuse Patient Records regulations: The Federal rules restrict any use of the information to criminally investigate or prosecute any alcohol or drug abuse patient.[facility] HospitalIn the event this information is protected by the Federal Confidentiality of Alcohol and Drug Abuse Patient Records regulations: The Federal rules restrict any use of the information to criminally investigate or prosecute any alcohol or drug abuse patient.[facility] HospitalIn the event this information is protected by the Federal Confidentiality of Alcohol and Drug Abuse Patient Records regulations: The Federal rules restrict any use of the information to criminally investigate or prosecute any alcohol or drug abuse patient.[facility] HospitalIn the event this information is protected by the Federal Confidentiality of Alcohol and Drug Abuse Patient Records regulations: The Federal rules restrict any use of the information to criminally investigate or prosecute any alcohol or drug abuse patient.[facility] HospitalIn the event this information is protected by the Federal Confidentiality of Alcohol and Drug Abuse Patient Records regulations: The Federal rules restrict any use of the information to criminally investigate or prosecute any alcohol or drug abuse patient.[facility] HospitalIn the event this information is protected by the Federal Confidentiality of Alcohol and Drug Abuse Patient Records regulations: The Federal rules restrict any use of the information to criminally investigate or prosecute any alcohol or drug abuse patient.[facility] HospitalIn the event this information is protected by the Federal Confidentiality of Alcohol and Drug Abuse Patient Records regulations: The Federal rules restrict any use of the information to criminally investigate or prosecute any alcohol or drug abuse patient.[facility] HospitalIn the event this information is protected by the Federal Confidentiality of Alcohol and Drug Abuse Patient Records regulations: The Federal rules restrict any use of the information to criminally investigate or prosecute any alcohol or drug abuse patient.[facility] HospitalIn the event this information is protected by the Federal Confidentiality of Alcohol and Drug Abuse Patient Records regulations: The Federal rules restrict any use of the information to criminally investigate or prosecute any alcohol or drug abuse patient.[facility] HospitalIn the event this information is protected by the Federal Confidentiality of Alcohol and Drug Abuse Patient Records regulations: The Federal rules restrict any use of the information to criminally investigate or prosecute any alcohol or drug abuse patient.[facility] HospitalIn the event this information is protected by the Federal Confidentiality of Alcohol and Drug Abuse Patient Records regulations: The Federal rules restrict any use of the information to criminally investigate or prosecute any alcohol or drug abuse patient.[facility] HospitalIn the event this information is protected by the Federal Confidentiality of Alcohol and Drug Abuse Patient Records regulations: The Federal rules restrict any use of the information to criminally investigate or prosecute any alcohol or drug abuse patient.[facility] HospitalIn the event this information is protected by the Federal Confidentiality of Alcohol and Drug Abuse Patient Records regulations: The Federal rules restrict any use of the information to criminally investigate or prosecute any alcohol or drug abuse patient.[facility] HospitalIn the event this information is protected by the Federal Confidentiality of Alcohol and Drug Abuse Patient Records regulations: The Federal rules restrict any use of the information to criminally investigate or prosecute any alcohol or drug abuse patient.[facility] HospitalIn the event this information is protected by the Federal Confidentiality of Alcohol and Drug Abuse Patient Records regulations: The Federal rules restrict any use of the information to criminally investigate or prosecute any alcohol or drug abuse patient.[facility] HospitalIn the event this information is protected by the Federal Confidentiality of Alcohol and Drug Abuse Patient Records regulations: The Federal rules restrict any use of the information to criminally investigate or prosecute any alcohol or drug abuse patient.[facility] HospitalIn the event this information is protected by the Federal Confidentiality of Alcohol and Drug Abuse Patient Records regulations: The Federal rules restrict any use of the information to criminally investigate or prosecute any alcohol or drug abuse patient.[facility] HospitalIn the event this information is protected by the Federal Confidentiality of Alcohol and Drug Abuse Patient Records regulations: The Federal rules restrict any use of the information to criminally investigate or prosecute any alcohol or drug abuse patient.[facility] HospitalIn the event this information is protected by the Federal Confidentiality of Alcohol and Drug Abuse Patient Records regulations: The Federal rules restrict any use of the information to criminally investigate or prosecute any alcohol or drug abuse patient.[facility] HospitalIn the event this information is protected by the Federal Confidentiality of Alcohol and Drug Abuse Patient Records regulations: The Federal rules restrict any use of the information to criminally investigate or prosecute any alcohol or drug abuse patient.[facility] HospitalIn the event this information is protected by the Federal Confidentiality of Alcohol and Drug Abuse Patient Records regulations: The Federal rules restrict any use of the information to criminally investigate or prosecute any alcohol or drug abuse patient.[facility] HospitalIn the event this information is protected by the Federal Confidentiality of Alcohol and Drug Abuse Patient Records regulations: The Federal rules restrict any use of the information to criminally investigate or prosecute any alcohol or drug abuse patient.[facility] HospitalIn the event this information is protected by the Federal Confidentiality of Alcohol and Drug Abuse Patient Records regulations: The Federal rules restrict any use of the information to criminally investigate or prosecute any alcohol or drug abuse patient.[facility] HospitalIn the event this information is protected by the Federal Confidentiality of Alcohol and Drug Abuse Patient Records regulations: The Federal rules restrict any use of the information to criminally investigate or prosecute any alcohol or drug abuse patient.[facility] HospitalIn the event this information is protected by the Federal Confidentiality of Alcohol and Drug Abuse Patient Records regulations: The Federal rules restrict any use of the information to criminally investigate or prosecute any alcohol or drug abuse patient.[facility] HospitalIn the event this information is protected by the Federal Confidentiality of Alcohol and Drug Abuse Patient Records regulations: The Federal rules restrict any use of the information to criminally investigate or prosecute any alcohol or drug abuse patient.[facility] HospitalIn the event this information is protected by the Federal Confidentiality of Alcohol and Drug Abuse Patient Records regulations: The Federal rules restrict any use of the information to criminally investigate or prosecute any alcohol or drug abuse patient.[facility] HospitalIn the event this information is protected by the Federal Confidentiality of Alcohol and Drug Abuse Patient Records regulations: The Federal rules restrict any use of the information to criminally investigate or prosecute any alcohol or drug abuse patient.[facility] HospitalIn the event this information is protected by the Federal Confidentiality of Alcohol and Drug Abuse Patient Records regulations: The Federal rules restrict any use of the information to criminally investigate or prosecute any alcohol or drug abuse patient.[facility] HospitalIn the event this information is protected by the Federal Confidentiality of Alcohol and Drug Abuse Patient Records regulations: The Federal rules restrict any use of the information to criminally investigate or prosecute any alcohol or drug abuse patient.[facility] HospitalIn the event this information is protected by the Federal Confidentiality of Alcohol and Drug Abuse Patient Records regulations: The Federal rules restrict any use of the information to criminally investigate or prosecute any alcohol or drug abuse patient.[facility] HospitalIn the event this information is protected by the Federal Confidentiality of Alcohol and Drug Abuse Patient Records regulations: The Federal rules restrict any use of the information to criminally investigate or prosecute any alcohol or drug abuse patient.[facility] HospitalIn the event this information is protected by the Federal Confidentiality of Alcohol and Drug Abuse Patient Records regulations: The Federal rules restrict any use of the information to criminally investigate or prosecute any alcohol or drug abuse patient.[facility] HospitalIn the event this information is protected by the Federal Confidentiality of Alcohol and Drug Abuse Patient Records regulations: The Federal rules restrict any use of the information to criminally investigate or prosecute any alcohol or drug abuse patient.[facility] HospitalIn the event this information is protected by the Federal Confidentiality of Alcohol and Drug Abuse Patient Records regulations: The Federal rules restrict any use of the information to criminally investigate or prosecute any alcohol or drug abuse patient.[facility] HospitalIn the event this information is protected by the Federal Confidentiality of Alcohol and Drug Abuse Patient Records regulations: The Federal rules restrict any use of the information to criminally investigate or prosecute any alcohol or drug abuse patient.[facility] HospitalIn the event this information is protected by the Federal Confidentiality of Alcohol and Drug Abuse Patient Records regulations: The Federal rules restrict any use of the information to criminally investigate or prosecute any alcohol or drug abuse patient.[facility] HospitalIn the event this information is protected by the Federal Confidentiality of Alcohol and Drug Abuse Patient Records regulations: The Federal rules restrict any use of the information to criminally investigate or prosecute any alcohol or drug abuse patient.[facility] HospitalIn the event this information is protected by the Federal Confidentiality of Alcohol and Drug Abuse Patient Records regulations: The Federal rules restrict any use of the information to criminally investigate or prosecute any alcohol or drug abuse patient.[facility] HospitalIn the event this information is protected by the Federal Confidentiality of Alcohol and Drug Abuse Patient Records regulations: The Federal rules restrict any use of the information to criminally investigate or prosecute any alcohol or drug abuse patient.[facility] HospitalIn the event this information is protected by the Federal Confidentiality of Alcohol and Drug Abuse Patient Records regulations: The Federal rules restrict any use of the information to criminally investigate or prosecute any alcohol or drug abuse patient.[facility] HospitalIn the event this information is protected by the Federal Confidentiality of Alcohol and Drug Abuse Patient Records regulations: The Federal rules restrict any use of the information to criminally investigate or prosecute any alcohol or drug abuse patient.[facility] HospitalIn the event this information is protected by the Federal Confidentiality of Alcohol and Drug Abuse Patient Records regulations: The Federal rules restrict any use of the information to criminally investigate or prosecute any alcohol or drug abuse patient.[facility] HospitalIn the event this information is protected by the Federal Confidentiality of Alcohol and Drug Abuse Patient Records regulations: The Federal rules restrict any use of the information to criminally investigate or prosecute any alcohol or drug abuse patient.[facility] HospitalIn the event this information is protected by the Federal Confidentiality of Alcohol and Drug Abuse Patient Records regulations: The Federal rules restrict any use of the information to criminally investigate or prosecute any alcohol or drug abuse patient.[facility] HospitalIn the event this information is protected by the Federal Confidentiality of Alcohol and Drug Abuse Patient Records regulations: The Federal rules restrict any use of the information to criminally investigate or prosecute any alcohol or drug abuse patient.[facility] HospitalIn the event this information is protected by the Federal Confidentiality of Alcohol and Drug Abuse Patient Records regulations: The Federal rules restrict any use of the information to criminally investigate or prosecute any alcohol or drug abuse patient.[facility] HospitalIn the event this information is protected by the Federal Confidentiality of Alcohol and Drug Abuse Patient Records regulations: The Federal rules restrict any use of the information to criminally investigate or prosecute any alcohol or drug abuse patient.[facility] HospitalIn the event this information is protected by the Federal Confidentiality of Alcohol and Drug Abuse Patient Records regulations: The Federal rules restrict any use of the information to criminally investigate or prosecute any alcohol or drug abuse patient.[facility] HospitalIn the event this information is protected by the Federal Confidentiality of Alcohol and Drug Abuse Patient Records regulations: The Federal rules restrict any use of the information to criminally investigate or prosecute any alcohol or drug abuse patient.[facility] HospitalIn the event this information is protected by the Federal Confidentiality of Alcohol and Drug Abuse Patient Records regulations: The Federal rules restrict any use of the information to criminally investigate or prosecute any alcohol or drug abuse patient.[facility] HospitalIn the event this information is protected by the Federal Confidentiality of Alcohol and Drug Abuse Patient Records regulations: The Federal rules restrict any use of the information to criminally investigate or prosecute any alcohol or drug abuse patient.[facility] HospitalIn the event this information is protected by the Federal Confidentiality of Alcohol and Drug Abuse Patient Records regulations: The Federal rules restrict any use of the information to criminally investigate or prosecute any alcohol or drug abuse patient.[facility] HospitalIn the event this information is protected by the Federal Confidentiality of Alcohol and Drug Abuse Patient Records regulations: The Federal rules restrict any use of the information to criminally investigate or prosecute any alcohol or drug abuse patient.[facility] HospitalIn the event this information is protected by the Federal Confidentiality of Alcohol and Drug Abuse Patient Records regulations: The Federal rules restrict any use of the information to criminally investigate or prosecute any alcohol or drug abuse patient.[facility] HospitalIn the event this information is protected by the Federal Confidentiality of Alcohol and Drug Abuse Patient Records regulations: The Federal rules restrict any use of the information to criminally investigate or prosecute any alcohol or drug abuse patient.[facility] HospitalIn the event this information is protected by the Federal Confidentiality of Alcohol and Drug Abuse Patient Records regulations: The Federal rules restrict any use of the information to criminally investigate or prosecute any alcohol or drug abuse patient.[facility] HospitalIn the event this information is protected by the Federal Confidentiality of Alcohol and Drug Abuse Patient Records regulations: The Federal rules restrict any use of the information to criminally investigate or prosecute any alcohol or drug abuse patient.[facility] HospitalIn the event this information is protected by the Federal Confidentiality of Alcohol and Drug Abuse Patient Records regulations: The Federal rules restrict any use of the information to criminally investigate or prosecute any alcohol or drug abuse patient.[facility] HospitalIn the event this information is protected by the Federal Confidentiality of Alcohol and Drug Abuse Patient Records regulations: The Federal rules restrict any use of the information to criminally investigate or prosecute any alcohol or drug abuse patient.[facility] HospitalIn the event this information is protected by the Federal Confidentiality of Alcohol and Drug Abuse Patient Records regulations: The Federal rules restrict any use of the information to criminally investigate or prosecute any alcohol or drug abuse patient.[facility] HospitalIn the event this information is protected by the Federal Confidentiality of Alcohol and Drug Abuse Patient Records regulations: The Federal rules restrict any use of the information to criminally investigate or prosecute any alcohol or drug abuse patient.[facility] HospitalIn the event this information is protected by the Federal Confidentiality of Alcohol and Drug Abuse Patient Records regulations: The Federal rules restrict any use of the information to criminally investigate or prosecute any alcohol or drug abuse patient.[facility] HospitalIn the event this information is protected by the Federal Confidentiality of Alcohol and Drug Abuse Patient Records regulations: The Federal rules restrict any use of the information to criminally investigate or prosecute any alcohol or drug abuse patient.[facility] HospitalIn the event this information is protected by the Federal Confidentiality of Alcohol and Drug Abuse Patient Records regulations: The Federal rules restrict any use of the information to criminally investigate or prosecute any alcohol or drug abuse patient.[facility] HospitalIn the event this information is protected by the Federal Confidentiality of Alcohol and Drug Abuse Patient Records regulations: The Federal rules restrict any use of the information to criminally investigate or prosecute any alcohol or drug abuse patient.[facility] HospitalIn the event this information is protected by the Federal Confidentiality of Alcohol and Drug Abuse Patient Records regulations: The Federal rules restrict any use of the information to criminally investigate or prosecute any alcohol or drug abuse patient.[facility] HospitalIn the event this information is protected by the Federal Confidentiality of Alcohol and Drug Abuse Patient Records regulations: The Federal rules restrict any use of the information to criminally investigate or prosecute any alcohol or drug abuse patient.[facility] HospitalIn the event this information is protected by the Federal Confidentiality of Alcohol and Drug Abuse Patient Records regulations: The Federal rules restrict any use of the information to criminally investigate or prosecute any alcohol or drug abuse patient.[facility] HospitalIn the event this information is protected by the Federal Confidentiality of Alcohol and Drug Abuse Patient Records regulations: The Federal rules restrict any use of the information to criminally investigate or prosecute any alcohol or drug abuse patient.[facility] HospitalIn the event this information is protected by the Federal Confidentiality of Alcohol and Drug Abuse Patient Records regulations: The Federal rules restrict any use of the information to criminally investigate or prosecute any alcohol or drug abuse patient.[facility] HospitalIn the event this information is protected by the Federal Confidentiality of Alcohol and Drug Abuse Patient Records regulations: The Federal rules restrict any use of the information to criminally investigate or prosecute any alcohol or drug abuse patient.[facility] HospitalIn the event this information is protected by the Federal Confidentiality of Alcohol and Drug Abuse Patient Records regulations: The Federal rules restrict any use of the information to criminally investigate or prosecute any alcohol or drug abuse patient.[facility] HospitalIn the event this information is protected by the Federal Confidentiality of Alcohol and Drug Abuse Patient Records regulations: The Federal rules restrict any use of the information to criminally investigate or prosecute any alcohol or drug abuse patient.[facility] HospitalIn the event this information is protected by the Federal Confidentiality of Alcohol and Drug Abuse Patient Records regulations: The Federal rules restrict any use of the information to criminally investigate or prosecute any alcohol or drug abuse patient.[facility] HospitalIn the event this information is protected by the Federal Confidentiality of Alcohol and Drug Abuse Patient Records regulations: The Federal rules restrict any use of the information to criminally investigate or prosecute any alcohol or drug abuse patient.[facility] HospitalIn the event this information is protected by the Federal Confidentiality of Alcohol and Drug Abuse Patient Records regulations: The Federal rules restrict any use of the information to criminally investigate or prosecute any alcohol or drug abuse patient.[facility] HospitalIn the event this information is protected by the Federal Confidentiality of Alcohol and Drug Abuse Patient Records regulations: The Federal rules restrict any use of the information to criminally investigate or prosecute any alcohol or drug abuse patient.[facility] HospitalIn the event this information is protected by the Federal Confidentiality of Alcohol and Drug Abuse Patient Records regulations: The Federal rules restrict any use of the information to criminally investigate or prosecute any alcohol or drug abuse patient.[facility] HospitalIn the event this information is protected by the Federal Confidentiality of Alcohol and Drug Abuse Patient Records regulations: The Federal rules restrict any use of the information to criminally investigate or prosecute any alcohol or drug abuse patient.[facility] HospitalIn the event this information is protected by the Federal Confidentiality of Alcohol and Drug Abuse Patient Records regulations: The Federal rules restrict any use of the information to criminally investigate or prosecute any alcohol or drug abuse patient.[facility] HospitalIn the event this information is protected by the Federal Confidentiality of Alcohol and Drug Abuse Patient Records regulations: The Federal rules restrict any use of the information to criminally investigate or prosecute any alcohol or drug abuse patient.[facility] HospitalIn the event this information is protected by the Federal Confidentiality of Alcohol and Drug Abuse Patient Records regulations: The Federal rules restrict any use of the information to criminally investigate or prosecute any alcohol or drug abuse patient.[facility] HospitalIn the event this information is protected by the Federal Confidentiality of Alcohol and Drug Abuse Patient Records regulations: The Federal rules restrict any use of the information to criminally investigate or prosecute any alcohol or drug abuse patient.[facility] HospitalIn the event this information is protected by the Federal Confidentiality of Alcohol and Drug Abuse Patient Records regulations: The Federal rules restrict any use of the information to criminally investigate or prosecute any alcohol or drug abuse patient.[facility] HospitalIn the event this information is protected by the Federal Confidentiality of Alcohol and Drug Abuse Patient Records regulations: The Federal rules restrict any use of the information to criminally investigate or prosecute any alcohol or drug abuse patient.[facility] HospitalIn the event this information is protected by the Federal Confidentiality of Alcohol and Drug Abuse Patient Records regulations: The Federal rules restrict any use of the information to criminally investigate or prosecute any alcohol or drug abuse patient.[facility] HospitalIn the event this information is protected by the Federal Confidentiality of Alcohol and Drug Abuse Patient Records regulations: The Federal rules restrict any use of the information to criminally investigate or prosecute any alcohol or drug abuse patient.[facility] HospitalIn the event this information is protected by the Federal Confidentiality of Alcohol and Drug Abuse Patient Records regulations: The Federal rules restrict any use of the information to criminally investigate or prosecute any alcohol or drug abuse patient.[facility] HospitalIn the event this information is protected by the Federal Confidentiality of Alcohol and Drug Abuse Patient Records regulations: The Federal rules restrict any use of the information to criminally investigate or prosecute any alcohol or drug abuse patient.[facility] HospitalIn the event this information is protected by the Federal Confidentiality of Alcohol and Drug Abuse Patient Records regulations: The Federal rules restrict any use of the information to criminally investigate or prosecute any alcohol or drug abuse patient.[facility] HospitalIn the event this information is protected by the Federal Confidentiality of Alcohol and Drug Abuse Patient Records regulations: The Federal rules restrict any use of the information to criminally investigate or prosecute any alcohol or drug abuse patient.[facility] HospitalIn the event this information is protected by the Federal Confidentiality of Alcohol and Drug Abuse Patient Records regulations: The Federal rules restrict any use of the information to criminally investigate or prosecute any alcohol or drug abuse patient.[facility] HospitalIn the event this information is protected by the Federal Confidentiality of Alcohol and Drug Abuse Patient Records regulations: The Federal rules restrict any use of the information to criminally investigate or prosecute any alcohol or drug abuse patient.[facility] HospitalIn the event this information is protected by the Federal Confidentiality of Alcohol and Drug Abuse Patient Records regulations: The Federal rules restrict any use of the information to criminally investigate or prosecute any alcohol or drug abuse patient.[facility] HospitalIn the event this information is protected by the Federal Confidentiality of Alcohol and Drug Abuse Patient Records regulations: The Federal rules restrict any use of the information to criminally investigate or prosecute any alcohol or drug abuse patient.[facility] HospitalIn the event this information is protected by the Federal Confidentiality of Alcohol and Drug Abuse Patient Records regulations: The Federal rules restrict any use of the information to criminally investigate or prosecute any alcohol or drug abuse patient.[facility] HospitalIn the event this information is protected by the Federal Confidentiality of Alcohol and Drug Abuse Patient Records regulations: The Federal rules restrict any use of the information to criminally investigate or prosecute any alcohol or drug abuse patient.[facility] HospitalIn the event this information is protected by the Federal Confidentiality of Alcohol and Drug Abuse Patient Records regulations: The Federal rules restrict any use of the information to criminally investigate or prosecute any alcohol or drug abuse patient.[facility] HospitalIn the event this information is protected by the Federal Confidentiality of Alcohol and Drug Abuse Patient Records regulations: The Federal rules restrict any use of the information to criminally investigate or prosecute any alcohol or drug abuse patient.[facility] HospitalIn the event this information is protected by the Federal Confidentiality of Alcohol and Drug Abuse Patient Records regulations: The Federal rules restrict any use of the information to criminally investigate or prosecute any alcohol or drug abuse patient.[facility] HospitalIn the event this information is protected by the Federal Confidentiality of Alcohol and Drug Abuse Patient Records regulations: The Federal rules restrict any use of the information to criminally investigate or prosecute any alcohol or drug abuse patient.[facility] HospitalIn the event this information is protected by the Federal Confidentiality of Alcohol and Drug Abuse Patient Records regulations: The Federal rules restrict any use of the information to criminally investigate or prosecute any alcohol or drug abuse patient.[facility] HospitalIn the event this information is protected by the Federal Confidentiality of Alcohol and Drug Abuse Patient Records regulations: The Federal rules restrict any use of the information to criminally investigate or prosecute any alcohol or drug abuse patient.[facility] HospitalIn the event this information is protected by the Federal Confidentiality of Alcohol and Drug Abuse Patient Records regulations: The Federal rules restrict any use of the information to criminally investigate or prosecute any alcohol or drug abuse patient.[facility] HospitalIn the event this information is protected by the Federal Confidentiality of Alcohol and Drug Abuse Patient Records regulations: The Federal rules restrict any use of the information to criminally investigate or prosecute any alcohol or drug abuse patient.[facility] HospitalIn the event this information is protected by the Federal Confidentiality of Alcohol and Drug Abuse Patient Records regulations: The Federal rules restrict any use of the information to criminally investigate or prosecute any alcohol or drug abuse patient.[facility] HospitalIn the event this information is protected by the Federal Confidentiality of Alcohol and Drug Abuse Patient Records regulations: The Federal rules restrict any use of the information to criminally investigate or prosecute any alcohol or drug abuse patient.[facility] HospitalIn the event this information is protected by the Federal Confidentiality of Alcohol and Drug Abuse Patient Records regulations: The Federal rules restrict any use of the information to criminally investigate or prosecute any alcohol or drug abuse patient.[facility] HospitalIn the event this information is protected by the Federal Confidentiality of Alcohol and Drug Abuse Patient Records regulations: The Federal rules restrict any use of the information to criminally investigate or prosecute any alcohol or drug abuse patient.[facility] HospitalIn the event this information is protected by the Federal Confidentiality of Alcohol and Drug Abuse Patient Records regulations: The Federal rules restrict any use of the information to criminally investigate or prosecute any alcohol or drug abuse patient.[facility] HospitalIn the event this information is protected by the Federal Confidentiality of Alcohol and Drug Abuse Patient Records regulations: The Federal rules restrict any use of the information to criminally investigate or prosecute any alcohol or drug abuse patient.[facility] HospitalIn the event this information is protected by the Federal Confidentiality of Alcohol and Drug Abuse Patient Records regulations: The Federal rules restrict any use of the information to criminally investigate or prosecute any alcohol or drug abuse patient.[facility] HospitalIn the event this information is protected by the Federal Confidentiality of Alcohol and Drug Abuse Patient Records regulations: The Federal rules restrict any use of the information to criminally investigate or prosecute any alcohol or drug abuse patient.[facility] HospitalIn the event this information is protected by the Federal Confidentiality of Alcohol and Drug Abuse Patient Records regulations: The Federal rules restrict any use of the information to criminally investigate or prosecute any alcohol or drug abuse patient.[facility] HospitalIn the event this information is protected by the Federal Confidentiality of Alcohol and Drug Abuse Patient Records regulations: The Federal rules restrict any use of the information to criminally investigate or prosecute any alcohol or drug abuse patient.[facility] HospitalIn the event this information is protected by the Federal Confidentiality of Alcohol and Drug Abuse Patient Records regulations: The Federal rules restrict any use of the information to criminally investigate or prosecute any alcohol or drug abuse patient.[facility] HospitalIn the event this information is protected by the Federal Confidentiality of Alcohol and Drug Abuse Patient Records regulations: The Federal rules restrict any use of the information to criminally investigate or prosecute any alcohol or drug abuse patient.[facility] HospitalIn the event this information is protected by the Federal Confidentiality of Alcohol and Drug Abuse Patient Records regulations: The Federal rules restrict any use of the information to criminally investigate or prosecute any alcohol or drug abuse patient.[facility] HospitalIn the event this information is protected by the Federal Confidentiality of Alcohol and Drug Abuse Patient Records regulations: The Federal rules restrict any use of the information to criminally investigate or prosecute any alcohol or drug abuse patient.[facility] HospitalIn the event this information is protected by the Federal Confidentiality of Alcohol and Drug Abuse Patient Records regulations: The Federal rules restrict any use of the information to criminally investigate or prosecute any alcohol or drug abuse patient.[facility] HospitalIn the event this information is protected by the Federal Confidentiality of Alcohol and Drug Abuse Patient Records regulations: The Federal rules restrict any use of the information to criminally investigate or prosecute any alcohol or drug abuse patient.[facility] Reason for Visit (unrecogniz ed section and content) Reason Comments Physical Therapy Specialty Diagnoses / Procedures Referred By Remi t Referred To Contact [facility] Diagnoses Generalized weakness Falls frequently Procedures CONSULT TO PHYSICAL THERAPY PHYSICAL THERAPY EVALUATION HIGH COMPLEX 45 MINS Sharda Carl PA-C [address] [place] [address] [facility] [place] [address] [place] [address] Referral ID Status Reason Start Date Expiration Date Visits Requested Visits Authorized [id number] Authorized PCP Requested Referral Auto-Generate d Referral 03/14/2022 03/14/2023 99 99 Reason Comments PT Progress Note Reason Comments Radiology CT Specialty Diagnoses / Procedures Referred By Contac t Referred To Contact CT IMAGING Diagnoses Rectal cancer (HCC) Procedures CT CHEST W IVCON DIAGNOSTIC COMPUTED TOMOGRAPHY THORAX W/CONTRAST Ashley Marshall APRN.RUMPER [address] [place] [address] Ct [facility] Referral ID Status Reason Start Date Expiration Date V isits Requested Visits Authorized [id number] Closed Auto-Generate d Referral 11/14/2021 12/14/2022 1 [...] HIGH MDM 60-74 MINUTES Sharda Carl PA-C [address] [place] [address] Referral ID Status Reason Start Date Expiration Date V isits Requested Visits Authorized [id number] Closed PCP Requested Referral 02/04/2022 02/04/2023 1 [...] Reason Onset Date Comments Refill Request 05/16/2023 Longterm Plan of Care 05/16/2023 Reason Comments OT plan of care Reason Comments Cough Sob, congestion x 3 days Reason Onset Date Comments Refill Request 05/30/2023 Reason Comments POA question Reason Comments ext document ER report Reason Comments daughter needs note for court hearing to day Reason Comments DME for ostomy supplies Specialty Diagnoses / Procedures [facility] To Contact [facility] Diagnoses Rectal cancer (HCC) Procedures CT CHEST W IVCON DIAGNOSTIC COMPUTED TOMOGRAPHY THORAX W/CONTRAST Ashley Marshall APRN.RUMPER [address] [place] [address] [place] [address] Referral ID Status Reason Start Date Expiration Date V isits Requested Visits Authorized [id number] Closed Auto-Generate d Referral 03/21/2022 04/20/2023 1 1 Specialty Diagnoses / Procedures [facility] Referred To Contact CT IMAGING Diagnoses Malignant neoplasm of rectum (HCC) Procedures CT ABD/PEL W IVCON CT ABD & PELVIS W/CONTRAST Howie Greenberg, DO [address] [place] [address] [place] [address] Referral ID Status Reason Start Date Expiration Date V isits Requested Visits Authorized [id number] Closed Auto-Generate d Referral 04/01/2023 04/30/2024 1 1 Specialty Diagnoses / Procedures Referred By Contac t Referred To Contact CT IMAGING Diagnoses Malignant neoplasm of rectum (HCC) Procedures CT CHEST W IVCON DIAGNOSTIC COMPUTED TOMOGRAPHY THORAX W/CONTRAST Howie Greenberg, DO [address] [place] [address] Ct [facility] [place] [address] Referral ID Status Reason Start Date Expiration Date V isits Requested Visits Authorized [id number] Closed Auto-Generate d Referral 02/25/2023 03/26/2024 1 1 Specialty Diagnoses / Procedures Referred By Contac t Referred To Contact CT IMAGING Diagnoses Rectal cancer (HCC) Abnormal CT of the abdomen Procedures CT ABD/PEL W IVCON CT ABD & PELVIS W/CONTRAST Ashley Marshall APRN.RUMPER [address] [place] [address] Ct [facility] [place] [address] Referral ID Status Reason Start Date Expiration Date V isits Requested Visits Authorized [id number] Closed Auto-Generate d Referral 10/09/2022 11/08/2023 1 1 Specialty Diagnoses / Procedures Referred By Contac t Referred To Contact MR IMAGING Diagnoses Dementia without behavioral disturbance (HCC) Procedures MRI BRAIN WO IVCON MRI BRAIN BRAIN STEM W/O CONTRAST MATERIAL Edmar Liu Jr., MD [address] [facility] [address] [place] [address] [facility] [place] [address] Referral ID Status Reason Start Date Expiration Date V isits Requested Visits Authorized [id number] Closed Auto-Generate d Referral 06/24/2022 07/24/2023 [address] Referral ID Status Reason Start Date Expiration Date V isits Requested Visits Authorized [id number] Closed Auto-Generate d Referral 04/01/2023 04/30/2024 1 1 Reason Comments swollen elbow X 1 week Reason Comments New Patient Evaluation Specialty Diagnoses / Procedures Referred By Contac t Referred To Contact Neurology Diagnoses Dementia, unspecified dementia severity, unspecified dementia type, unspecified whether behavioral, psychotic, or mood disturbance or anxiety (HCC) Procedures CONSULT TO NEUROLOGY OFFICE/OUTPATIENT [facility] MDM 60-74 MINUTES Edmar Liu Jr., MD [address] [address] Referral ID Status Reason Start Date Expiration Date V isits Requested Visits Authorized [id number] Closed PCP Requested Referral 06/30/2023 06/29/2024 1 [...] STEM W/O CONTRAST MATERIAL Chapincito Tomlin MD [address] [place] [id number] [facility] [place] [address] Referral ID Status Reason Start Date Expiration Date V isits Requested Visits Authorized [id number] Closed Auto-Generate d Referral 08/26/2023 09/24/2024 1 1 Reason Comments Results Chest Xray Orders Reason Comments Acute Visit Head congestion, tem p Reason Comments Results Covid, Flu, RSV Reason Comments Medication Question Specialty Diagnoses / Procedures Referred By Contac t Referred To Contact CT IMAGING Diagnoses Abnormal chest x-ray Procedures CT CHEST W IVCON PE DIAGNOSTIC COMPUTED TOMOGRAPHY THORAX W/CONTRAST Allyson Hernandez, DIRECTOR IMMUNOLOGY.RUMPER [address] [place] [address] [address] [facility] [place] [address] Referral ID Status Reason Start Date Expiration Date V isits Requested Visits Authorized [id number] Closed Auto-Generate d Referral 11/12/2023 12/11/2024 [address] Chest Reason Comments ER Discharge Summary Imaging Reason Comments Fall Reason Comments Outside H&P Reason Comments patient update/placement needed Reason Comments Results critical potassium Reason Comments Hospital Follow Up Reason Comments Home Health Order Request Specialty Diagnoses / Procedures Referred By Contac t Referred To Contact CT IMAGING Diagnoses Rectal cancer (HCC) Procedures CT ABD/PEL W IVCON CT ABD & PELVIS W/CONTRAST Ashley Marshall, DIRECTOR IMMUNOLOGY.RUMPER [address] [place] [address] [place] [address] Referral ID Status Reason Start Date Expiration Date V isits Requested Visits Authorized [id number] Closed Auto-Generate d Referral 07/24/2023 08/22/2024 [address] Specialty Diagnoses / Procedures Referred By [facility] Referred To Contact CT IMAGING Diagnoses Rectal cancer (HCC) Procedures CT ABD/PEL W IVCON CT ABD & PELVIS W/CONTRAST Ashley Marshall, DIRECTOR IMMUNOLOGY.RUMPER [address] [place] [address] [place] [address] Reason Onset Date Comments Refill Request 12/29/2023 Reason Comments Insurance Authorization Reason Onset Date Comments Transition Of Care 12/29/2023 TCM Initial O utreach: [facility] 12/27/23, hyperkalemia Reason Comments Orders Patient Update Reason Comments [facility] - lab result Reason Comments Call: Speech Therapy Plan of Care Reason Comments Orders Reason Onset Date Comments Transition Of Care 01/19/2024 OON TCM follo w up Reason Comments Medication Request Reason Comments [facility] PT POC Specialty Diagnoses / Procedures Referred By [facility] Referred To Contact CT IMAGING Diagnoses Vasculopathy Bilateral carotid artery stenosis Syncope, unspecified syncope type Occlusion and stenosis of unspecified carotid artery Procedures CTA NECK W IVCON CT ANGIOGRAPHY NECK W/CONTRAST/NONCONTRAST Vishal Jones MD [address] [place] [address] [place] [address] Referral ID Status Reason Start Date Expiration Date V isits Requested Visits Authorized [id number] Closed Auto-Generate d Referral 01/09/2024 2025 1 1 Reason Comments [facility] PT update on POC Reason Comments [facility] ER requesting records Reason Comments ER Discharge Summary H&P Reason Comments requested records to [facility] Reason Comments guardianship forms Reason Comments Results General Questions Question Care Teams (unrecognized sec tion and content) Broommaker Relationship Specialty Start Date End Date Vishal Jones MD [address] [place] [address] PCP - General Family Practice 09/25/17 Deborah Sabillon RN Specialty Gum Machine Operator Oncology 07/30/17 Clement Werner MD, MD [address] [place] [address] Physician Radiation Oncology 01/29/18 Vishal Jones MD [address] [place] [address] Home Care Physician Family Practice 08/17/20 Maye Gonzalez MD Consulting General Surgery 08/17/20 Dayna Mann RN [address] [place], [place] [id number] In Home Tutor Post Acute Care 08/17/20 Maye Gonzalez MD Referring General Surgery 08/23/20 Broommaker Relationship Specialty Start Date End Date Vishal Jones MD [address] [place] [address] PCP - General Family Practice 09/25/17 Deborah Sabillon RN Specialty Gum Machine Operator Oncology 07/30/17 Clement Werner MD, [address] [facility] [address] Physician Radiation Oncology 01/29/18 Vishal Jones MD [address] [place] [address] Home Care Physician Family Practice 08/17/20 Maye Gonzalez MD Consulting General Surgery 08/17/20 Dayna Mann RN [address] [place] [address] In Home Tutor Post Acute Care 08/17/20 Maye Gonzalez MD Referring General Surgery 08/23/20 Broommaker Relationship Specialty Start Date End Date Vishal Jones MD [address] [place] [address] PCP - General Family Practice 09/25/17 Deborah Sabillon RN Specialty Gum Machine Operator Oncology 07/30/17 Clement Werner MD, MD [address] [place] [address] Physician Radiation Oncology 01/29/18 Vishal Jones MD [address] [place] [address] Home Care Physician Family Practice 08/17/20 Maye Gonzalez MD Consulting General Surgery 08/17/20 Dayna aMnn, RN [address] [place], [place] [id number] In Home Tutor Post Acute Care 08/17/20 Maye Gonzalez MD Referring General Surgery 08/23/20 Broommaker Relationship Specialty Start Date End Date Vishal Jones MD [address] [place] [address] PCP - General Family Practice 09/25/17 Deborah Sabillon RN Specialty Gum Machine Operator Oncology 07/30/17 Clement Werner MD, [address] [place] [address] Physician Radiation Oncology 01/29/18 Vishal Jones MD [address] [place] [address] Home Care Physician Family Practice 08/17/20 Maye Gonzalez MD Consulting General Surgery 08/17/20 Dayna Mann RN [address] [place] [address] In Home Tutor Post Acute Care 08/17/20 Maye Gonzalez MD Referring General Surgery 08/23/20 Broommaker Relationship Specialty Start Date End Date Vishal Jones MD [address] [place] [address] PCP - General Family Practice 09/25/17 Deborah Sabillon RN Specialty Gum Machine Operator Oncology 07/30/17 Clement Werner MD, MD [address] [place] [address] Physician Radiation Oncology 01/29/18 Vishal Jones MD [address] [place] [address] Home Care Physician Family Practice 08/17/20 Maye Gonzalez MD Consulting General Surgery 08/17/20 Dayna Mann RN [address] [place] [address] In Home Tutor Post Acute Care 08/17/20 Maye Gonzalez MD Referring General Surgery 08/23/20 Broommaker Relationship Specialty Start Date End Date Vishal Jones MD [address] [facility] [place] [address] PCP - General Family Practice 09/25/17 Deborah Sabillon RN Specialty Gum Machine Operator Oncology 07/30/17 Clement Werner MD, MD [address] [facility] [address] Physician Radiation Oncology 01/29/18 Vishal Jones MD [address] [place] [address] Home Care Physician Family Practice 08/17/20 Maye Gonzalez MD Consulting General Surgery 08/17/20 Dayna Mann RN [address] [place], [place] [id number] In Home Tutor Post Acute Care 08/17/20 Maye Gonzalez MD Referring General Surgery 08/23/20 Broommaker Relationship Specialty Start Date End Date Vishal Jones MD [address] [place] [address] PCP - General Family Practice 09/25/17 Deborah Sabillon RN Specialty Gum Machine Operator Oncology 07/30/17 Clement Werner MD, [address] [place] [address] Physician Radiation Oncology 01/29/18 Vishal Jones MD [address] [place] [address] Home Care Physician Family Practice 08/17/20 Maye Gonzalez MD Consulting General Surgery 08/17/20 Dayna Mann RN [address] [place], [place] 7691631 In Home Tutor Post Acute Care 08/17/20 Maye Gonzalez MD Referring General Surgery 08/23/20 Broommaker Relationship Specialty Start Date End Date Vishal Jones MD [address] [place] [address] PCP - General Family Practice 09/25/17 Deborah Sabillon RN Specialty Gum Machine Operator Oncology 07/30/17 Clement Werner MD, [address] [place] [address] Physician Radiation Oncology 01/29/18 Vishal Jones MD [address] [place] [address] Home Care Physician Family Practice 08/17/20 Maye Gonzalez MD Consulting General Surgery 08/17/20 Dayna Mann RN [address] [place], [place] [address]97[address] In Home Tutor Post Acute Care 08/17/20 Maye Gonzalez MD Referring General Surgery 08/23/20 Broommaker Relationship Specialty Start Date End Date Vishal Jones MD [address] [place] [address] PCP - General Family Practice 09/25/17 Deborah Sabillon RN Specialty Gum Machine Operator Oncology 07/30/17 Clement Werner MD, [address] [place] [address] Physician Radiation Oncology 01/29/18 Vishal Jones MD [address] [place] [address] Home Care Physician Family Practice 08/17/20 Maye Gonzalez MD Consulting General Surgery 08/17/20 Dayna Mann RN [address] [place] [address] In Home Tutor Post Acute Care 08/17/20 Maye Gonzalez MD Referring General Surgery 08/23/20 Broommaker Relationship Specialty Start Date End Date Vishal Jones MD [address] [place] [address] PCP - General Family Practice 09/25/17 Deborah Sabillon RN Specialty Gum Machine Operator Oncology 07/30/17 Clement Werner MD, [address] [place] [address] Physician Radiation Oncology 01/29/18 Vishal Jones MD [address] [place] [address] Home Care Physician Family Practice 08/17/20 Maye Gonzalez MD Consulting General Surgery 08/17/20 Dayna Mann RN [address] [place], [place] [id number] In Home Tutor Post Acute Care 08/17/20 Maye Gonzalez MD Referring General Surgery 08/23/20 Broommaker Relationship Specialty Start Date End Date Vishal Jones MD [address] [place] [address] PCP - General Family Practice 09/25/17 Deborah Sabillon RN Specialty Gum Machine Operator Oncology 07/30/17 Clement Werner MD, [address] [place] [address] Physician Radiation Oncology 01/29/18 Vishal Jones MD [address] [facility] [place] [address] Home Care Physician Family Practice 08/17/20 Maye Gonzalez MD Consulting General Surgery 08/17/20 Dayna Mann RN [address] [place], [place] 1632331 In Home Tutor Post Acute Care 08/17/20 Maye Gonzalez MD Referring General Surgery 08/23/20 Broommaker Relationship Specialty Start Date End Date Vishal Jones MD [address] [place] [address] PCP - General Family Practice 09/25/17 Deborah Sabillon RN Specialty Gum Machine Operator Oncology 07/30/17 Clement Werner MD, [address] [place] [address] Physician Radiation Oncology 01/29/18 Vishal Jones MD [address] [place] [address] Home Care Physician Family Practice 08/17/20 Maye Gonzalez MD Consulting General Surgery 08/17/20 Dayna Mann, ELIE [address] [place], [place] 9335631 In Home Tutor Post Acute Care 08/17/20 Maye Gonzalez MD Referring General Surgery 08/23/20 Broommaker Relationship Specialty Start Date End Date Vishal Jones MD [address] [place] [address] PCP - General Family Practice 09/25/17 Deborah Sabillon RN Specialty Gum Machine Operator Oncology 07/30/17 Clement Werner MD, [address] [place] [address] Physician Radiation Oncology 01/29/18 Vishal Jones MD [address] [place] [address] Home Care Physician Family Practice 08/17/20 Maye Gonzalez MD Consulting General Surgery 08/17/20 Dayna Mann RN [address] [place] [address] In Home Tutor Post Acute Care 08/17/20 Maye Gonzalez MD Referring General Surgery 08/23/20 Broommaker Relationship Specialty Start Date End Date Vishal Jones MD [address] [place] [address] PCP - General Family Practice 09/25/17 Deborah Sabillon RN Specialty Gum Machine Operator Oncology 07/30/17 Clement Werner MD, MD [address] [place] [address] Physician Radiation Oncology 01/29/18 Vishal Jones MD [address] [place] [address] Home Care Physician Family Practice 08/17/20 Maye Gonzalez MD Consulting General Surgery 08/17/20 Dayna Mann RN [address] [place] [address] In Home Tutor Post Acute Care 08/17/20 Maye Gonzalez MD Referring General Surgery 08/23/20 Broommaker Relationship Specialty Start Date End Date Vishal Jones MD [address] [facility] [place] [address] PCP - General Family Practice 09/25/17 Deborah Sabillon RN Specialty Gum Machine Operator Oncology 07/30/17 Clement Werner MD, MD [address] [facility] [address] Physician Radiation Oncology 01/29/18 Vishal Jones MD [address] [place] [address] Home Care Physician Family Practice 08/17/20 Maye Gonzalez MD Consulting General Surgery 08/17/20 Dayna Mann RN [address] [place], [place] 6966731 In Home Tutor Post Acute Care 08/17/20 Maye Gonzalez MD Referring General Surgery 08/23/20 Broommaker Relationship Specialty Start Date End Date Vishal Jones MD [address] [place] [address] PCP - General Family Practice 09/25/17 Deborah Sabillon RN Specialty Gum Machine Operator Oncology 07/30/17 Clement Werner MD, [address] [place] [address] Physician Radiation Oncology 01/29/18 Vishal Jones MD [address] [place] [address] Home Care Physician Family Practice 08/17/20 Maye Gonzalez MD Consulting General Surgery 08/17/20 Dayna Mann RN [address] [place], [place] 5201931 In Home Tutor Post Acute Care 08/17/20 Maye Gonzalez MD Referring General Surgery 08/23/20 Broommaker Relationship Specialty Start Date End Date Vishal Jones MD [address] [place] [address] PCP - General Family Practice 09/25/17 Deborah Sabillon RN Specialty Gum Machine Operator Oncology 07/30/17 Clement Werner MD, [address] [place] [address] Physician Radiation Oncology 01/29/18 Vishal Jones MD [address] [place] [address] Home Care Physician Family Practice 08/17/20 Maye Gonzalez MD Consulting General Surgery 08/17/20 Dayna Mann RN [address] [place] [address] In Home Tutor Post Acute Care 08/17/20 Maye Gonzalez MD Referring General Surgery 08/23/20 Broommaker Relationship Specialty Start Date End Date Vishal Jones MD [address] [place] [address] PCP - General Family Medicine 09/25/17 Deborah Sabillon RN Specialty Gum Machine Operator Oncology 07/30/17 Clement Werner MD, [address] [place] [address] Physician Radiation Oncology 01/29/18 Vishal Jones MD [address] [place] [address] Home Care Provider Family Medicine 08/17/20 Maye Gonzalez MD Consulting General Surgery 08/17/20 Dayna Mann RN [address] [place] [address] In Home Tutor Post Acute Care 08/17/20 Maye Gonzalez MD Referring General Surgery 08/23/20 Broommaker Relationship Specialty Start Date End Date Vishal Jones MD [address] [place] [address] PCP - General Family Medicine 09/25/17 Deborah Sabillon RN Specialty Gum Machine Operator Oncology 07/30/17 Clement Werner MD, [address] [place] [address] Physician Radiation Oncology 01/29/18 Vishal Jones MD [address] [place] [address] Home Care Provider Family Medicine 08/17/20 Maye Gonzalez MD Consulting General Surgery 08/17/20 Dayna Mann RN [address] [place] [address] In Home Tutor Post Acute Care 08/17/20 Maye Gonzalez MD Referring General Surgery 08/23/20 Broommaker Relationship Specialty Start Date End Date Vishal Jones MD [address] [place] [address] PCP - General Family Medicine 09/25/17 Deborah Sabillon RN Specialty Gum Machine Operator Oncology 07/30/17 Clement Werner MD, [address] [place] [address] Physician Radiation Oncology 01/29/18 Vishal Jones MD [address] [place] [address] Home Care Provider Family Medicine 08/17/20 Maye Gonzalez MD Consulting General Surgery 08/17/20 Dayna Mann RN [address] [place] [address] In Home Tutor Post Acute Care 08/17/20 Maye Gonzalez MD Referring General Surgery 08/23/20 Broommaker Relationship Specialty Start Date End Date Vishal Jones MD [address] [place] [address] PCP - General Family Medicine 09/25/17 Deborah Sabillon RN Specialty Gum Machine Operator Oncology 07/30/17 Clement Werner MD, [address] [place] [address] Physician Radiation Oncology 01/29/18 Vishal Jones MD [address] [place] [address] Home Care Provider Family Medicine 08/17/20 Maye Gonzalez MD Consulting General Surgery 08/17/20 Dayna Mann, RN [address] [place], [place] 0009431 In Home Tutor Post Acute Care 08/17/20 Maye Gonzalez MD Referring General Surgery 08/23/20 Broommaker Relationship Specialty Start Date End Date Vishal Jones MD [address] [place] [address] PCP - General Family Medicine 09/25/17 Deborah Sabillon RN Specialty Gum Machine Operator Oncology 07/30/17 Clement Werner MD, MD [address] [place] [address] Physician Radiation Oncology 01/29/18 Vishal Jones MD [address] [place] [address] Home Care Provider Family Medicine 08/17/20 Maye Gonzalez MD Consulting General Surgery 08/17/20 Dayna Mann RN [address] [place] [address] In Home Tutor Post Acute Care 08/17/20 Maye Gonzalez MD Referring General Surgery 08/23/20 Broommaker Relationship Specialty Start Date End Date Vishal Jones MD [address] [place] [address] PCP - General Family Medicine 09/25/17 Deborah Sabillon RN Specialty Gum Machine Operator Oncology 07/30/17 Clement Werner MD, MD [address] [facility] [address] Physician Radiation Oncology 01/29/18 Vishal Jones MD [address] [place] [address] Home Care Provider Family Medicine 08/17/20 Maye Gonzalez MD [address] [facility] [place] [address] Consulting General Surgery 08/17/20 Dayna Mann RN [address] [facility] [place] [address] In Home Tutor Post Acute Care 08/17/20 Maye Gonzalez MD [address] [facility] [place] [address] Referring General Surgery 08/23/20 Broommaker Relationship Specialty Start Date End Date Vishal Jones MD [address] [place] [address] PCP - General Family Medicine 09/25/17 Deborah Sabillon RN Specialty Gum Machine Operator Oncology 07/30/17 Clement Werner MD, [address] [facility] [place] [address] Physician Radiation Oncology 01/29/18 Vishal Jones MD [address] [place] [address] Home Care Provider Family Medicine 08/17/20 Maye Gonzalez MD [address] [facility] [place] [address] Consulting General Surgery 08/17/20 Dayna Mann RN [address] [facility], [place] [id number] In Home Tutor Post Acute Care 08/17/20 Maye Gonzalez MD [address] [facility] [place] [address] Referring General Surgery 08/23/20 Broommaker Relationship Specialty Start Date End Date Vishal Jones MD [address] [facility] [address] PCP - General Family Medicine 09/25/17 Deborah Sabillon RN Specialty Gum Machine Operator Oncology 07/30/17 Clement Werner MD, [address] [facility] [address] Physician Radiation Oncology 01/29/18 Vishal Jones MD [address] [place] [address] Home Care Provider Family Medicine 08/17/20 Maye Gonzalez MD [address] [facility] [place] [address] Consulting General Surgery 08/17/20 Dayna Mann RN [address] [place], [place] 1632831 In Home Tutor Post Acute Care 08/17/20 Maye Gonzalez MD [address] [facility] [address] Referring General Surgery 08/23/20 Broommaker Relationship Specialty Start Date End Date Vishal Jones MD [address] [place] [address] PCP - General Family Medicine 09/25/17 Deborah Sabillon RN Specialty Gum Machine Operator Oncology 07/30/17 Clement Werner MD, [address] [facility] [address] Physician Radiation Oncology 01/29/18 Vishal Jones MD [address] [place] [address] Home Care Provider Family Medicine 08/17/20 Maye Gonzalez MD [address] [place] [address] Consulting General Surgery 08/17/20 Dayna Mann, ELIE [address] [place], [place] 2899531 In Home Tutor Post Acute Care 08/17/20 Maye Gonzalez MD [address] [facility] [address] Referring General Surgery 08/23/20 Broommaker Relationship Specialty Start Date End Date Vishal Jones MD [address] [place] [address] PCP - General Family Medicine 09/25/17 Deborah Sabillon RN Specialty Gum Machine Operator Oncology 07/30/17 Clement Werner MD, [address] [facility] [address] Physician Radiation Oncology 01/29/18 Vishal Jones MD [address] [place] [address] Home Care Provider Family Medicine 08/17/20 Maye Gonzalez MD [address], [place] 559621 Consulting General Surgery 08/17/20 Dayna Mann RN [address] [place] [address] In Home Tutor Post Acute Care 08/17/20 Maye Gonzalez MD [address] [place], [place] 162451 Referring General Surgery 08/23/20 Broommaker Relationship Specialty Start Date End Date Vishal Jones MD [address] [place] [address] PCP - General Family Medicine 09/25/17 Deborah Sabillon RN Specialty Gum Machine Operator Oncology 07/30/17 Clement Werner MD, [address] [place] [address] Physician Radiation Oncology 01/29/18 Vishal Jones MD [address] [place] [address] Home Care Provider Family Medicine 08/17/20 aMye Gonzalez MD [address] [place], [place] 762771 Consulting General Surgery 08/17/20 Dayna Mann RN [address] [place] [address] In Home Tutor Post Acute Care 08/17/20 Maye Gonzalez MD [address] [place], [place] 672231 Referring General Surgery 08/23/20 Broommaker Relationship Specialty Start Date End Date Vishal Jones MD [address] [place] [address] PCP - General Family Medicine 09/25/17 Deborah Sabillon RN Specialty Gum Machine Operator Oncology 07/30/17 Clement Werner MD, [address] [facility] [address] Physician Radiation Oncology 01/29/18 Vishal Jones MD [address] [place] [address] Home Care Provider Family Medicine 08/17/20 Maye Gonzalez MD [address] [facility] [address] Consulting General Surgery 08/17/20 Dayna Mann RN [address] [place], [place] 423[address]31 In Home Tutor Post Acute Care 08/17/20 Maye Gonzalez MD [address] [facility] [address] Referring General Surgery 08/23/20 Broommaker Relationship Specialty Start Date End Date Vishal Jones MD [address] [place] [address] PCP - General Family Medicine 09/25/17 Deborah Sabillon RN Specialty Gum Machine Operator Oncology 07/30/17 Clement Werner MD, [address] [facility] [address] Physician Radiation Oncology 01/29/18 Vishal Jones MD [address] [place] [address] Home Care Provider Family Medicine 08/17/20 Maye Gonzalez MD [address] [place] [address] Consulting General Surgery 08/17/20 Dayna Mann RN [address] [place] [address] In Home Tutor Post Acute Care 08/17/20 Maye Gonzalez MD [address] [place], [place] 888501 Referring General Surgery 08/23/20 Broommaker Relationship Specialty Start Date End Date Vishal Jones MD [address] [place] [address] PCP - General Family Medicine 09/25/17 Deborah Sabillon RN Specialty Gum Machine Operator Oncology 07/30/17 Clement Werner MD, [address] [facility] [address] Physician Radiation Oncology 01/29/18 Vishal Jones MD [address] [place] [address] Home Care Provider Family Medicine 08/17/20 Maye Gonzalez MD [address] [place] [address] Consulting General Surgery 08/17/20 Dayna Mann, ELIE [address] [place], [place] 6131131 In Home Tutor Post Acute Care 08/17/20 Maye Gonzalez MD [address] [place] [address] Referring General Surgery 08/23/20 Broommaker Relationship Specialty Start Date End Date Vishal Jones MD [address] [place] [address] PCP - General Family Medicine 09/25/17 Deborah Sabillon RN Specialty Gum Machine Operator Oncology 07/30/17 Clement Werner MD, [address] [place] [address] Physician Radiation Oncology 01/29/18 Vishal Jones MD [address] [facility] [address] Home Care Provider Family Medicine 08/17/20 Maye Gonzalez MD [address] [facility] [address] Consulting General Surgery 08/17/20 Dayna Mann RN [address] [place], [place] 6837431 In Home Tutor Post Acute Care 08/17/20 Maye Gonzalez MD [address] [facility] [address] Referring General Surgery 08/23/20 Broommaker Relationship Specialty Start Date End Date Vishal Jones MD [address] [place] [address] PCP - General Family Medicine 09/25/17 Deborah Sabillon RN Specialty Gum Machine Operator Oncology 07/30/17 Clement Werner MD, [address] [facility] [address] Physician Radiation Oncology 01/29/18 Vishal Jones MD [address] [place] [address] Home Care Provider Family Medicine 08/17/20 Maye Gonzalez MD [address] [facility] [address] Consulting General Surgery 08/17/20 Dayna Mann RN [address] [place], [place] 4741631 In Home Tutor Post Acute Care 08/17/20 Maye Gonzalez MD [address] [facility] [address] Referring General Surgery 08/23/20 Broommaker Relationship Specialty Start Date End Date Vishal Jones MD [address] [place] [address] PCP - General Family Medicine 09/25/17 Deborah Sabillon RN Specialty Gum Machine Operator Oncology 07/30/17 Clement Werner MD, [address] [facility] [address] Physician Radiation Oncology 01/29/18 Vishal Jones MD [address] [place] [address] Home Care Provider Family Medicine 08/17/20 Maye Gonzalez MD [address] [facility] [address] Consulting General Surgery 08/17/20 Dayna Mann RN [address] [facility], [place] 8331131 In Home Tutor Post Acute Care 08/17/20 Maye Gonzalez MD [address] [facility] [address] Referring General Surgery 08/23/20 Broommaker Relationship Specialty Start Date End Date Vishal Jones MD [address] [place] [address] PCP - General Family Medicine 09/25/17 Debroah Sabillon RN Specialty Gum Machine Operator Oncology 07/30/17 Clement Werner MD, [address] [facility] [address] Physician Radiation Oncology 01/29/18 Vishal Jones MD [address] [place] [address] Home Care Provider Family Medicine 08/17/20 Maye Gonzalez MD [address] [facility] [address] Consulting General Surgery 08/17/20 Dayna Mann RN [address] [place], [place] 1906731 In Home Tutor Post Acute Care 08/17/20 Maye Gonzalez MD [address] [facility], [place] [address] Referring General Surgery 08/23/20 Broommaker Relationship Specialty Start Date End Date Vishal Jones MD [address] [place] [address] PCP - General Family Medicine 09/25/17 Deborah Sabillon RN Specialty Gum Machine Operator Oncology 07/30/17 Clement Werner MD, [address] [facility] [address] Physician Radiation Oncology 01/29/18 Vishal Jones MD [address] [place] [address] Home Care Provider Family Medicine 08/17/20 Maye Gonzalez MD [address] [facility] [address] Consulting General Surgery 08/17/20 Dayna Mann RN [address] [place] [address] In Home Tutor Post Acute Care 08/17/20 Maye Gonzalez MD [address] [facility] [address] Referring General Surgery 08/23/20 Broommaker Relationship Specialty Start Date End Date Vishal Jones MD [address] [place] [address] PCP - General Family Medicine 09/25/17 Deborah Sabillon RN Specialty Gum Machine Operator Oncology 07/30/17 Clement Werner MD, [address] [facility] [address] Physician Radiation Oncology 01/29/18 Vishal Jones MD [address] [place] [address] Home Care Provider Family Medicine 08/17/20 Maye Gonzalez MD [address] [facility] [address] Consulting General Surgery 08/17/20 Dayna Mann RN [address] [place], [place] 9701831 In Home Tutor Post Acute Care 08/17/20 Maye Gonzalez MD [address] [facility] [address] Referring General Surgery 08/23/20 Broommaker Relationship Specialty Start Date End Date Vishal Jones MD [address] [place] [address] PCP - General Family Medicine 09/25/17 Deborah Sabillon RN Specialty Gum Machine Operator Oncology 07/30/17 Clement Werner MD, [address] [facility] [place] [address] Physician Radiation Oncology 01/29/18 Vishal Jones MD [address] [place] [address] Home Care Provider Family Medicine 08/17/20 Maye Gonzalez MD [address] [place] [address] Consulting General Surgery 08/17/20 Dayna Mann RN [address] [place], [place] [id number] In Home Tutor Post Acute Care 08/17/20 Maye Gonzalez MD [address] [facility], [place] 79[address]71 Referring General Surgery 08/23/20 Broommaker Relationship Specialty Start Date End Date Vishal Jones MD [address] [place] [address] PCP - General Family Medicine 09/25/17 Deborah Sabillon RN Specialty Gum Machine Operator Oncology 07/30/17 Clement Werner MD, [address] [facility] [place] [address] Physician Radiation Oncology 01/29/18 Vishal Jones MD [address] [facility] [address] Home Care Provider Family Medicine 08/17/20 Maye Gonzalez MD [address] [facility] [place] [address] Consulting General Surgery 08/17/20 Dayna Mann, ELIE [address] [place], [place] [id number] In Home Tutor Post Acute Care 08/17/20 Maye Gonzalez MD [address] [facility] [place] [address] Referring General Surgery 08/23/20 Broommaker Relationship Specialty Start Date End Date Vishal Jones MD [address] [place] [address] PCP - General Family Medicine 09/25/17 Deborah Sabillon RN Specialty Gum Machine Operator Oncology 07/30/17 Clement Werner MD, MD [address] [facility] [place] [address] Physician Radiation Oncology 01/29/18 Vishal Jones MD [address] [place] [address] Home Care Provider Family Medicine 08/17/20 Maye Gonzalez MD [address] [place] [address] Consulting General Surgery 08/17/20 Dayna Mann RN [address] [place], [place] 6009531 In Home Tutor Post Acute Care 08/17/20 Maye Gonzalez MD [address] [place] [address] Referring General Surgery 08/23/20 Broommaker Relationship Specialty Start Date End Date Vishal Jones MD [address] [place] [address] PCP - General Family Medicine 09/25/17 Deborah Sabillon RN Specialty Gum Machine Operator Oncology 07/30/17 Clement Werner MD, MD [address] [place] [address] Physician Radiation Oncology 01/29/18 Vishal Jones MD [address] [place] [address] Home Care Provider Family Medicine 08/17/20 Maye Gonzalez MD [address] [address] Consulting General Surgery 08/17/20 Dayna Mann RN [address] [place] [address] In Home Tutor Post Acute Care 08/17/20 Maey Gonzalez MD [address] [place] [address] Referring General Surgery 08/23/20 Broommaker Relationship Specialty Start Date End Date Vishal Jones MD [address] [place] [address] PCP - General Family Medicine 09/25/17 Deborah Sabillon RN Specialty Gum Machine Operator Oncology 07/30/17 Clement Werner MD, [address] [place], [place] 598841 Physician Radiation Oncology 01/29/18 Vishal Jones MD [address] [place], [place] 071551 Home Care Provider Family Medicine 08/17/20 Maye Gonzalez MD [address] [place] [address] Consulting General Surgery 08/17/20 Dayna Mann, RN [address] [place] [address] In Home Tutor Post Acute Care 08/17/20 Maye Gonzalez MD [address] [place] [address] Referring General Surgery 08/23/20 Broommaker Relationship Specialty Start Date End Date Vishal Jones MD [address] [place], [place] 632341 PCP - General Family Medicine 09/25/17 Deborah Sabillon RN Specialty Gum Machine Operator Oncology 07/30/17 Clement Werner MD, [address] [place] [address] Physician Radiation Oncology 01/29/18 Vishal Jones MD [address] [facility] [place] [address] Home Care Provider Family Medicine 08/17/20 Maye Gonzalez MD [address] [place] [address] Consulting General Surgery 08/17/20 Dayna Mann RN [address] [place], [place] [phone] In Home Tutor Post Acute Care 08/17/20 Maye Gonzalez MD [address] [place] [address] Referring General Surgery 08/23/20 Broommaker Relationship Specialty Start Date End Date Vishal Jones MD [address] [place] [address] PCP - General Family Medicine 09/25/17 Deborah Sabillon RN Specialty Gum Machine Operator Oncology 07/30/17 Clement Werner MD, MD [address] [place] [address] Physician Radiation Oncology 01/29/18 Vishal Jones MD [address] [facility] [place] [address] Home Care Provider Family Medicine 08/17/20 Maye Gonzalez MD [address] [place] [address] Consulting General Surgery 08/17/20 Dayna Mann RN [address] [place], [place] 6505531 In Home Tutor Post Acute Care 08/17/20 Maye Gonzalez MD [address] [place], [place] [address] Referring General Surgery 08/23/20 Broommaker Relationship Specialty Start Date End Date Vishal Jones MD [address] [place] [address] PCP - General Family Medicine 09/25/17 Deborah Sabillon RN Specialty Gum Machine Operator Oncology 07/30/17 Clement Werner MD, MD [address] [address] Physician Radiation Oncology 01/29/18 Vishal Jones MD [address] [place] [address] Home Care Provider Family Medicine 08/17/20 Maye Gonzalez MD [address] [place], [place] 397121 Consulting General Surgery 08/17/20 Dayna Mann RN [address] [place], [place] [phone] In Home Tutor Post Acute Care 08/17/20 Maye Gonzalez MD [address] [place], [place] 378211 Referring General Surgery 08/23/20 Broommaker Relationship Specialty Start Date End Date Vishal Jones MD [address] [place] [address] PCP - General Family Medicine 09/25/17 Deborah Sabillon RN Specialty Gum Machine Operator Oncology 07/30/17 Clement Werner MD, MD [address] [place] [address] Physician Radiation Oncology 01/29/18 Vishal Jones MD [address] [place] [address] Home Care Provider Family Medicine 08/17/20 Maye Gonzalez MD [address] [place] [address] Consulting General Surgery 08/17/20 Dayna Mann RN [address] [facility], [place] 2021631 In Home Tutor Post Acute Care 08/17/20 Maye Gonzalez MD [address] [place] [address] Referring General Surgery 08/23/20 Broommaker Relationship Specialty Start Date End Date Vishal Jones MD [address] [place] [address] PCP - General Family Medicine 09/25/17 Deborah Sabillon RN Specialty Gum Machine Operator Oncology 07/30/17 Clement Werner MD, [address] [place] [address] Physician Radiation Oncology 01/29/18 Vishal Jones MD [address] [place] [address] Home Care Provider Family Medicine 08/17/20 Maye Gonzalez MD [address] [place], [place] 716571 Consulting General Surgery 08/17/20 Dayna Mann RN [facility] [facility] [place] [address] In Home Tutor Post Acute Care 08/17/20 Maye Gonzalez MD [address] [place], [place] [address]44[address] Referring General Surgery 08/23/20 Broommaker Relationship Specialty Start Date End Date Vishal Jones MD [address] [place] [address] PCP - General Family Medicine 09/25/17 Deborah Sabillon RN Specialty Gum Machine Operator Oncology 07/30/17 Clement Werner MD, MD [address] [place] [address] Physician Radiation Oncology 01/29/18 Vishal Jones MD [address] [place] [address] Home Care Provider Family Medicine 08/17/20 Maye Gonzalez MD [address] [place] [address] Consulting General Surgery 08/17/20 Dayna Mann RN [address] [place] [address] In Home Tutor Post Acute Care 08/17/20 Maye Gonzalez MD [address] [place], [place] 8065[address] Referring General Surgery 08/23/20 Broommaker Relationship Specialty Start Date End Date Vishal Jones MD [address] [place] [address] PCP - General Family Medicine 09/25/17 Deborah Sabillon, RN Specialty Gum Machine Operator Oncology 07/30/17 Clement Werner MD, MD [address] [place] [address] Physician Radiation Oncology 01/29/18 Vishal Jones MD [address] [place] [address] Home Care Provider Family Medicine 08/17/20 Maye Gonzalez MD [address] [place] [address] Consulting General Surgery 08/17/20 Dayna Mann RN [address] [place], [place] 4617531 In Home Tutor Post Acute Care 08/17/20 Maye Gonzalez MD [address] [place] [address] Referring General Surgery 08/23/20 Broommaker Relationship Specialty Start Date End Date Vishal Jones MD [address] [place] [address] PCP - General Family Medicine 09/25/17 Deborah Sabillon RN Specialty Gum Machine Operator Oncology 07/30/17 Clement Werner MD, MD [address] [place] [address] Physician Radiation Oncology 01/29/18 Vishal Jones MD [address] [place] [address] Home Care Provider Family Medicine 08/17/20 Maye Gonzalez MD [address] [place], [place] 958081 Consulting General Surgery 08/17/20 Dayna Mann RN [address] [facility], [place] 2904331 In Home Tutor Post Acute Care 08/17/20 Maye Gonzalez MD [address] [place] [address] Referring General Surgery 08/23/20 Broommaker Relationship Specialty Start Date End Date Vishal Jones MD [address] [facility] [place] [address] PCP - General Family Medicine 09/25/17 Deborah Sabillon RN Specialty Gum Machine Operator Oncology 07/30/17 Clement Werner MD, [address] [place] [address] Physician Radiation Oncology 01/29/18 Vishal Jones MD [address] [place] [address] Home Care Provider Family Medicine 08/17/20 Maye Gonzalez MD [address] [place] [address] Consulting General Surgery 08/17/20 Dayna Mann RN [address] [facility] [place] [address] In Home Tutor Post Acute Care 08/17/20 Maye Gonzalez MD [address] [place] [address] Referring General Surgery 08/23/20 Broommaker Relationship Specialty Start Date End Date Vishal Jones MD [address] [place] [address] PCP - General Family Medicine 09/25/17 Deborah Sabillon RN Specialty Gum Machine Operator Oncology 07/30/17 Cleemnt Werner MD, MD [address] [place] [address] Physician Radiation Oncology 01/29/18 Vishal Jones MD [address] [place] [address] Home Care Provider Family Medicine 08/17/20 Maye Gonzalez MD [address] [facility] [place] [address] Consulting General Surgery 08/17/20 Dayna Mann, RN [address] [facility], [place] 8473531 In Home Tutor Post Acute Care 08/17/20 Maye Gonzalez MD [address] [place] [address] Referring General Surgery 08/23/20 Broommaker Relationship Specialty Start Date End Date Vishal Jones MD [address] [place] [address] PCP - General Family Medicine 09/25/17 Deborah Sabillon RN Specialty Gum Machine Operator Oncology 07/30/17 Clement Werner MD, [address] [place] [address] Physician Radiation Oncology 01/29/18 Vishal Jones MD [address] [place] [address] Home Care Provider Family Medicine 08/17/20 Maye Gonzalez MD [address] [place] [address] Consulting General Surgery 08/17/20 Dayna Mann RN [address] [place] [address] In Home Tutor Post Acute Care 08/17/20 Maye Gonzalez MD [address] [place] [address] Referring General Surgery 08/23/20 Broommaker Relationship Specialty Start Date End Date Vishal Jones MD [address] [facility] [place] [address] PCP - General Family Medicine 09/25/17 Deborah Sabillon RN Specialty Gum Machine Operator Oncology 07/30/17 Clement Werner MD, MD [address] [place] [address] Physician Radiation Oncology 01/29/18 Vishal Jones MD [address] [facility] [place] [address] Home Care Provider Family Medicine 08/17/20 Maye Gonzalez MD [address] [place] [address] Consulting General Surgery 08/17/20 Dayna Mann RN [address] [place] [address] In Home Tutor Post Acute Care 08/17/20 Maye Gonzalez MD [address] [place] [address] Referring General Surgery 08/23/20 Broommaker Relationship Specialty Start Date End Date Vishal Jones MD [address] [place] [address] PCP - General Family Medicine 09/25/17 Deborah Sabillon RN Specialty Gum Machine Operator Oncology 07/30/17 Clement Werner MD, MD [address] [place] [address] Physician Radiation Oncology 01/29/18 Vishal Jones MD [address] [place] [address] Home Care Provider Family Medicine 08/17/20 Maye Gonzalez MD [address] [facility] [address] Consulting General Surgery 08/17/20 Dayna Mann, RN [address] [place], [place] 4958931 In Home Tutor Post Acute Care 08/17/20 Maye Gonzalez MD [address] [place] [address] Referring General Surgery 08/23/20 Broommaker Relationship Specialty Start Date End Date Vishal Jones MD [address] [place] [address] PCP - General Family Medicine 09/25/17 Deborah Sabillon RN Specialty Gum Machine Operator Oncology 07/30/17 Clement Werner MD, MD [address] [place] [address] Physician Radiation Oncology 01/29/18 Vishal Jones MD [address] [place] [address] Home Care Provider Family Medicine 08/17/20 Maye Gonzalez MD [address] [place] [place], [place] 54[address] Consulting General Surgery 08/17/20 Dayna Mann RN [address] [place], [place] 1938531 In Home Tutor Post Acute Care 08/17/20 Maye Gonzalez MD [address] [place] [address] Referring General Surgery 08/23/20 Broommaker Relationship Specialty Start Date End Date Vishal Jones MD [address] [place] [address] PCP - General Family Medicine 09/25/17 Deborah Sabillon RN Specialty Gum Machine Operator Oncology 07/30/17 Clement Werner MD, MD [address] [place] [address] Physician Radiation Oncology 01/29/18 Vishal Jones MD [address] [place] [address] Home Care Provider Family Medicine 08/17/20 Maye Gonzalez MD [address] [place] [address] Consulting General Surgery 08/17/20 Dayna Mann RN [address] [place], [place] 3303831 In Home Tutor Post Acute Care 08/17/20 Maye Gonzalez MD [address] [place], [place] 969691 Referring General Surgery 08/23/20 Broommaker Relationship Specialty Start Date End Date Vishal Jones MD [address] [place], [place] 240431 PCP - General Family Medicine 09/25/17 Deborah Sabillon RN Specialty Gum Machine Operator Oncology 07/30/17 Clement Werner MD, MD [address] [place], [place] 437931 Physician Radiation Oncology 01/29/18 Vishal Jones MD [address] [place] [address] Home Care Provider Family Medicine 08/17/20 Maye Gonzalez MD [address] [facility] [place], [place] 838741 Consulting General Surgery 08/17/20 Dayna Mann RN [address] [place] [address] In Home Tutor Post Acute Care 08/17/20 Maye Gonzalez MD [address] [place], [place] 384091 Referring General Surgery 08/23/20 Broommaker Relationship Specialty Start Date End Date Vishal Jones MD [address] [place], [place] 230111 PCP - General Family Medicine 09/25/17 Deborah Sabillon RN Specialty Gum Machine Operator Oncology 07/30/17 Clement Werner MD, MD [address] [place] [address] Physician Radiation Oncology 01/29/18 Vishal Jones MD [address] [place] [address] Home Care Provider Family Medicine 08/17/20 Maye Gonzalez MD [address] [place] [address] Consulting General Surgery 08/17/20 Dayna Mann, RN [address] [place], [place] 1223331 In Home Tutor Post Acute Care 08/17/20 Maye Gonzalez MD [address] [place] [address] Referring General Surgery 08/23/20 Broommaker Relationship Specialty Start Date End Date Vishal Jones MD [address] [place] [address] PCP - General Family Medicine 09/25/17 Deborah Sabillon RN Specialty Gum Machine Operator Oncology 07/30/17 Clement Werner MD, [address] [place] [address] Physician Radiation Oncology 01/29/18 Vishal Jones MD [address] [place] [address] Home Care Provider Family Medicine 08/17/20 Maye Gonzalez MD [address] [place], [place] 470531 Consulting General Surgery 08/17/20 Dayna Mann RN [address] [place], [place] 8206531 In Home Tutor Post Acute Care 08/17/20 Maye Gonzalez MD [address] [place], [place] 956181 Referring General Surgery 08/23/20 Broommaker Relationship Specialty Start Date End Date Vishal Jones MD [address] [facility] [place] 30[address]31 PCP - General Family Medicine 09/25/17 Deborah Sabillon RN Specialty Gum Machine Operator Oncology 07/30/17 Clement Werner MD, [address] [place], [place] 513171 Physician Radiation Oncology 01/29/18 Vishal Jones MD [address] [facility] [place] 776541 Home Care Provider Family Medicine 08/17/20 Maye Gonzalez MD [address] [place] [address] Consulting General Surgery 08/17/20 Dayna Mann RN [address] [place] [address] In Home Tutor Post Acute Care 08/17/20 Maye Gonzalez MD [address] [place], [place] 405831 Referring General Surgery 08/23/20 Roxana Davis LISW [address] [place] [address] Upper Cutter Machine Hematology/Oncology 07/23/23 Broommaker Relationship Specialty Start Date End Date Vishal Jones MD [address] [facility] [place] [address] PCP - General Family Medicine 09/25/17 Deborah Sabillon, RN Specialty Gum Machine Operator Oncology 07/30/17 Clement Werner MD, MD [address] [place] [address] Physician Radiation Oncology 01/29/18 Vishal Jones MD [address] [place] [address] Home Care Provider Family Medicine 08/17/20 Maye Gonzalez MD [address] [place] [address] Consulting General Surgery 08/17/20 Dayna Mann, ELIE [address] [facility], [place] 2832931 In Home Tutor Post Acute Care 08/17/20 Maye Gonzalez MD [address] [place], [place] 716071 Referring General Surgery 08/23/20 Roxana Davis LISW [address] [facility] [place] [address] Upper Cutter Machine Hematology/Oncology 07/23/23 Broommaker Relationship Specialty Start Date End Date Vishal Jones MD [address] [facility] [place] [address] PCP - General Family Medicine 09/25/17 Deborah Sabillon, RN Specialty Gum Machine Operator Oncology 07/30/17 Clement Werner MD, [address] [place] [address] Physician Radiation Oncology 01/29/18 Vishal Jones MD [address] [facility] [place] [address] Home Care Provider Family Medicine 08/17/20 Maye Gonzalez MD [address] [place] [address] Consulting General Surgery 08/17/20 Dayna Mann RN [address] [place] [address] In Home Tutor Post Acute Care 08/17/20 Maye Gonzalez MD [address] [facility] [place] [address] Referring General Surgery 08/23/20 Roxana Davis LISW [address] [facility] [place] [address] Upper Cutter Machine Hematology/Oncology 07/23/23 Broommaker Relationship Specialty Start Date End Date Vishal Jones MD [address] [facility] [place] [address] PCP - General Family Medicine 09/25/17 Deborah Sabillon RN Specialty Gum Machine Operator Oncology 07/30/17 Clement Werner MD [address] [facility] [place] [address] Physician Radiation Oncology 01/29/18 Vishal Jones MD [address] [facility] [place] [address] Home Care Provider Family Medicine 08/17/20 Maye Gonzalez MD [address] [place] [address] Consulting General Surgery 08/17/20 Dayna Mann RN [address] [place] [address] In Home Tutor Post Acute Care 08/17/20 Maye Goznalez MD [address] [place], [place] 198881 Referring General Surgery 08/23/20 Roxana Davis LISW [address] [place] [address] Upper Cutter Machine Hematology/Oncology 07/23/23 Broommaker Relationship Specialty Start Date End Date Vishal Jones MD [address] [place] [address] PCP - General Family Medicine 09/25/17 Deborah Sabillon RN Specialty Gum Machine Operator Oncology 07/30/17 Clement Werner MD [address] [place] [address] Physician Radiation Oncology 01/29/18 Vishal Jones MD [address] [place] [address] Home Care Provider Family Medicine 08/17/20 Maye Gonzalez MD [address] [place] [address] Consulting General Surgery 08/17/20 Dayna Mann, ELIE [address] [place] [address] In Home Tutor Post Acute Care 08/17/20 Maye Gonzalez MD [address] [place], [place] 596921 Referring General Surgery 08/23/20 Roxana Davis LISW [address] [place] [address] Upper Cutter Machine Hematology/Oncology 07/23/23 Broommaker Relationship Specialty Start Date End Date Vishal Jones MD [address] [facility] [place] [address] PCP - General Family Medicine 09/25/17 Deborah Sabillon RN Specialty Gum Machine Operator Oncology 07/30/17 Clement Werner MD [address] [place], [place] 984561 Physician Radiation Oncology 01/29/18 Vishal Jones MD [address] [facility] [place] [address] Home Care Provider Family Medicine 08/17/20 Maye Gonzalez MD [address] [place] [address] Consulting General Surgery 08/17/20 Dayna Mann RN [address] [facility], [place] 7336531 In Home Tutor Post Acute Care 08/17/20 Maye Gonzalez MD [address] [facility], [place] [address]81 Referring General Surgery 08/23/20 Roxana Davis LISW [address] [facility] [place] [address] Upper Cutter Machine Hematology/Oncology 07/23/23 Broommaker Relationship Specialty Start Date End Date Vishal Jones MD [address] [facility] [place] [address] PCP - General Family Medicine 09/25/17 Deborah Sabillon, RN Specialty Gum Machine Operator Oncology 07/30/17 Clement Werner MD [address] [facility] [place] [address] Physician Radiation Oncology 01/29/18 Vishal Jones MD [address] [facility], [place] 401991 Home Care Provider Family Medicine 08/17/20 Maye Gonzalez MD [address] [place], [place] 8664[address] Consulting General Surgery 08/17/20 Dayna Mann RN [address] [place], [place] 2983731 In Home Tutor Post Acute Care 08/17/20 Maye Gonzalez MD [address] [facility] [place] 27[address]51 Referring General Surgery 08/23/20 Roxana Davis LISW [address] [facility] [place] [address] Upper Cutter Machine Hematology/Oncology 07/23/23 Broommaker Relationship Specialty Start Date End Date Vishal Jones MD [address] [place] [address] PCP - General Family Medicine 09/25/17 Deborah Sabillon RN Specialty Gum Machine Operator Oncology 07/30/17 Clement Werner MD [address] [facility] [place] [address] Physician Radiation Oncology 01/29/18 Vishal Jones MD [address] [facility], [place] 114271 Home Care Provider Family Medicine 08/17/20 aMye Gonzalez MD [address] [facility] [place] [address] Consulting General Surgery 08/17/20 Dayna Mann RN [address] [place] [address] In Home Tutor Post Acute Care 08/17/20 Maye Gonzalez MD [address] [facility], [place] 455351 Referring General Surgery 08/23/20 Roxana Davis LISW [address] [facility] [place] [address] Upper Cutter Machine Hematology/Oncology 07/23/23 Broommaker Relationship Specialty Start Date End Date Vishal Jones MD [address] [place] [address] PCP - General Family Medicine 09/25/17 Deborah Sabillon RN Specialty Gum Machine Operator Oncology 07/30/17 Clement Werner MD [address] [facility] [place] [address] Physician Radiation Oncology 01/29/18 Vishal Jones MD [address] [place] [address] Home Care Provider Family Medicine 08/17/20 Maye Gonzalez MD [address] [facility] [place] [address] Consulting General Surgery 08/17/20 Dayna Mann, RN [address] [place] [address] In Home Tutor Post Acute Care 08/17/20 Maye Gonzalez MD [address] [facility] [place] [address] Referring General Surgery 08/23/20 Roxana Davis LISW [address] [facility] [place] [address] Upper Cutter Machine Hematology/Oncology 07/23/23 Broommaker Relationship Specialty Start Date End Date Vishal Jones MD [address] [facility] [place], [place] [address] PCP - General Family Medicine 09/25/17 Deborah Sabillon RN Specialty Gum Machine Operator Oncology 07/30/17 Clement Werner MD [address] [place], [place] 801771 Physician Radiation Oncology 01/29/18 Vishal Jones MD [address] [facility] [place] 977521 Home Care Provider Family Medicine 08/17/20 Maye Gonzalez MD [address] [facility], [place] [address] Consulting General Surgery 08/17/20 Dayna Mann RN [address] [facility], [place] 8368631 In Home Tutor Post Acute Care 08/17/20 Maye Gonzalez MD [address] [place], [place] [address]271 Referring General Surgery 08/23/20 Roxana Davis LISW [address] [facility] [place] [address] Upper Cutter Machine Hematology/Oncology 07/23/23 Broommaker Relationship Specialty Start Date End Date Vishal Jones MD [address] [facility] [place] [address] PCP - General Family Medicine 09/25/17 Deborah Sabillon RN Specialty Gum Machine Operator Oncology 07/30/17 Clement Werner MD [address] [facility], [place] 67[address]81 Physician Radiation Oncology 01/29/18 Vishal Jones MD [address] [facility], [place] [address]51 Home Care Provider Family Medicine 08/17/20 Maye Gonzalez MD [address] [place] [address] Consulting General Surgery 08/17/20 Dayna Mann RN [address] [place] [address] In Home Tutor Post Acute Care 08/17/20 Maye Gonzalez MD [address] [facility] [place] [address] Referring General Surgery 08/23/20 Roxana Davis LISW [address] [facility] [place] [address] Upper Cutter Machine Hematology/Oncology 07/23/23 Broommaker Relationship Specialty Start Date End Date Vishal Jones MD [address] [facility] [address] PCP - General Family Medicine 09/25/17 Deborah Sabillon RN Specialty Gum Machine Operator Oncology 07/30/17 Clement Werner MD [address] [address] Physician Radiation Oncology 01/29/18 Vishal Jones MD [address] [facility], [place] 38[address]31 Home Care Provider Family Medicine 08/17/20 Maye Gonzalez MD [address] [place] [address] Consulting General Surgery 08/17/20 Dayna Mann RN [address] [place] [address] In Home Tutor Post Acute Care 08/17/20 Maye Gonzalez MD [address] [place] [address] Referring General Surgery 08/23/20 Roxana Davis LISW [address] [place] [address] Upper Cutter Machine Hematology/Oncology 07/23/23 Broommaker Relationship Specialty Start Date End Date Vishal Jones MD [address] [facility] [place] [address] PCP - General Family Medicine 09/25/17 Deborah Sabillon RN Specialty Gum Machine Operator Oncology 07/30/17 Clement Werner MD [address] [place] [address] Physician Radiation Oncology 01/29/18 Vishal Jones MD [address] [facility] [place] [address] Home Care Provider Family Medicine 08/17/20 Maye Gonzalez MD [address] [place] [address] Consulting General Surgery 08/17/20 Dayna Mann RN [address] [place] [address] In Home Tutor Post Acute Care 08/17/20 Maye Gonzalez MD [address] [place] [address] Referring General Surgery 08/23/20 Roxana Davis LISW [address] [place] [address] Upper Cutter Machine Hematology/Oncology 07/23/23 Broommaker Relationship Specialty Start Date End Date Vishal Jones MD [address] [facility], [place] 697211 PCP - General Family Medicine 09/25/17 Deborah Sabillon, RN Specialty Gum Machine Operator Oncology 07/30/17 Clmeent Werner MD [address] [place], [place] 346571 Physician Radiation Oncology 01/29/18 Vishal Jones MD [address] [facility] [place] 78[address]11 Home Care Provider Family Medicine 08/17/20 Maye Gonzalez MD [address] [place], [place] 8885[address] Consulting General Surgery 08/17/20 Dayna Mann, ELIE [address] [facility], [place] 7722031 In Home Tutor Post Acute Care 08/17/20 Maye Gonzalez MD [address] [place], [place] [address]661 Referring General Surgery 08/23/20 Roxana Davis LISW [address] [facility] [place] [address] Upper Cutter Machine Hematology/Oncology 07/23/23 Broommaker Relationship Specialty Start Date End Date Vishal Jones MD [address] [facility] [place] [address] PCP - General Family Medicine 09/25/17 Deborah Sabillon, RN Specialty Gum Machine Operator Oncology 07/30/17 Clement Werner MD [address] [place], [place] 512[address] Physician Radiation Oncology 01/29/18 Vishal Jones MD [address] [facility], [place] 375601 Home Care Provider Family Medicine 08/17/20 Maye Gonzalez MD [address] [place], [place] 7184[address] Consulting General Surgery 08/17/20 Dayna Mann RN [address] [place] [address] In Home Tutor Post Acute Care 08/17/20 Maye Gonzalez MD [address] [address] Referring General Surgery 08/23/20 Roxana Davis LISW [address] [place] [address] Upper Cutter Machine Hematology/Oncology 07/23/23 Broommaker Relationship Specialty Start Date End Date Vishal Jones MD [address] [place] [address] PCP - General Family Medicine 09/25/17 Deborah Sabillon RN Specialty Gum Machine Operator Oncology 07/30/17 Clement Werner MD [address] [facility] [place] [address] Physician Radiation Oncology 01/29/18 Vishal Jones MD [address] [facility], [place] [address]041 Home Care Provider Family Medicine 08/17/20 Maye Gonzalez MD [address] [place] [place], [place] 481341 Consulting General Surgery 08/17/20 Dayna Mann RN [address] [place] [address] In Home Tutor Post Acute Care 08/17/20 Maye Gonzalez MD [address] [place] [address] Referring General Surgery 08/23/20 Roxana Davis LISW [address] [place] [address] Upper Cutter Machine Hematology/Oncology 07/23/23 Broommaker Relationship Specialty Start Date End Date Vishal Jones MD [address] [facility] [place] [address] PCP - General Family Medicine 09/25/17 Deborah Sabillon RN Specialty Gum Machine Operator Oncology 07/30/17 Clement Werner MD [address] [place] [address] Physician Radiation Oncology 01/29/18 Vishal Jones MD [address] [facility] [place] [address] Home Care Provider Family Medicine 08/17/20 Maye Gonzalez MD [address] [place] [address] Consulting General Surgery 08/17/20 Dayna Mann RN [address] [place] [address] In Home Tutor Post Acute Care 08/17/20 Maye Gonzalez MD [address] [place] [address] Referring General Surgery 08/23/20 Roxana Davis LISW [address] [place] [address] Upper Cutter Machine Hematology/Oncology 07/23/23 Broommaker Relationship Specialty Start Date End Date Vishal Jones MD [address] [facility] [place] [address] PCP - General Family Medicine 09/25/17 Deborah Sabillon, RN Specialty Gum Machine Operator Oncology 07/30/17 Clement Werner MD [address] [place] [address] Physician Radiation Oncology 01/29/18 Vishal Jones MD [address] [facility] [place] [address] Home Care Provider Family Medicine 08/17/20 Maye Gonzalez MD [address] [place] [address] Consulting General Surgery 08/17/20 Dayna Mann, ELIE [address] [facility], [place] 3070831 In Home Tutor Post Acute Care 08/17/20 Maye Gonzalez MD [address] [address] Referring General Surgery 08/23/20 Roxana Davis LISW [address] [facility] [place] [address] Upper Cutter Machine Hematology/Oncology 07/23/23 Broommaker Relationship Specialty Start Date End Date Vishal Jones MD [address] [place] [address] PCP - General Family Medicine 09/25/17 Deborah Sabillon, RN Specialty Gum Machine Operator Oncology 07/30/17 Celment Werner MD [address] [place] [address] Physician Radiation Oncology 01/29/18 Vishal Jones MD [address] [place] [address] Home Care Provider Family Medicine 08/17/20 Maye Gonzalez MD [address] [place], [place] 060941 Consulting General Surgery 08/17/20 Dayna Mann, ELIE [address] [facility] [place], [place] 7421731 In Home Tutor Post Acute Care 08/17/20 Maye Gonzalez MD [address] [place] [address] Referring General Surgery 08/23/20 Roxana Davis LISW [address] [place] [address] Upper Cutter Machine Hematology/Oncology 07/23/23 Broommaker Relationship Specialty Start Date End Date Vishal Jones MD [address] [place] [address] PCP - General Family Medicine 09/25/17 Deborah Sabillon RN Specialty Gum Machine Operator Oncology 07/30/17 Clement Werner MD [address] [place] [address] Physician Radiation Oncology 01/29/18 Vishal Jones MD [address] [place], [place] 299721 Home Care Provider Family Medicine 08/17/20 Maye Gonzalez MD [address] [place], [place] 331621 Consulting General Surgery 08/17/20 Dayna Mann RN [address] [place] [address] In Home Tutor Post Acute Care 08/17/20 Maye Gonzalez MD [address] [place] [address] Referring General Surgery 08/23/20 Roxana Davis LISW [address] [place] [address] Upper Cutter Machine Hematology/Oncology 07/23/23 Broommaker Relationship Specialty Start Date End Date Vishal Jones MD [address] [place] [address] PCP - General Family Medicine 09/25/17 Deborah Sabillon RN Specialty Gum Machine Operator Oncology 07/30/17 Clement Werner MD [address] [place] [address] Physician Radiation Oncology 01/29/18 Vishal Jones MD [address] [place] [address] Home Care Provider Family Medicine 08/17/20 Maye Gonzalez MD [address] [place] [address] Consulting General Surgery 08/17/20 Dayna Mann RN [address] [place] [address] In Home Tutor Post Acute Care 08/17/20 Maye Gonzalez MD [address] [place] [address] Referring General Surgery 08/23/20 Roxana Davis LISW [address] [place] [address] Upper Cutter Machine Hematology/Oncology 07/23/23 Broommaker Relationship Specialty Start Date End Date Vishal Jones MD [address] [place] [address] PCP - General Family Medicine 09/25/17 Deborah Sabillon, RN Specialty Gum Machine Operator Oncology 07/30/17 Clement Werner MD [address] [facility] [place] [address] Physician Radiation Oncology 01/29/18 Vishal Jones MD [address] [facility] [place] [address] Home Care Provider Family Medicine 08/17/20 Maye Gonzalez MD [address] [facility] [place] [address] Consulting General Surgery 08/17/20 Dayna Mann, ELIE [address] [facility] [facility], [place] 3160831 In Home Tutor Post Acute Care 08/17/20 Maye Gonzalez MD [address] [address] Referring General Surgery 08/23/20 Roxana Davis LISW [address] [facility] [place] [address] Upper Cutter Machine Hematology/Oncology 07/23/23 Broommaker Relationship Specialty Start Date End Date Vishal Jones MD [address] [facility] [place] [address] PCP - General Family Medicine 09/25/17 Deborah Sabillon, RN Specialty Gum Machine Operator Oncology 07/30/17 Clement Werner MD [address] [facility] [place] [address] Physician Radiation Oncology 01/29/18 Vishal Jones MD [address] [facility] [place], [place] [address] Home Care Provider Family Medicine 08/17/20 Maye Gonzalez MD [address] [place], [place] 947241 Consulting General Surgery 08/17/20 Dayna Mann, ELIE [address] [facility], [place] 0730631 In Home Tutor Post Acute Care 08/17/20 Maye Gonzalez MD [address] [place] [address] Referring General Surgery 08/23/20 Roxana Davis LISW [address] [facility] [place] [address] Upper Cutter Machine Hematology/Oncology 07/23/23 Broommaker Relationship Specialty Start Date End Date Vishal Jones MD [address] [facility] [place] [address] PCP - General Family Medicine 09/25/17 Deborah Sabillon RN Specialty Gum Machine Operator Oncology 07/30/17 Clement Werner MD [address] [place] [address] Physician Radiation Oncology 01/29/18 Vishal Jones MD [address] [facility] [place], [place] 43[address] Home Care Provider Family Medicine 08/17/20 Maye Gonzalez MD [address] [place], [place] 314961 Consulting General Surgery 08/17/20 Dayna Mann, RN [address] [place] [address] In Home Tutor Post Acute Care 08/17/20 Maye Gonzalez MD [address] [place] [address] Referring General Surgery 08/23/20 Roxana Davis LISW [address] [place] [address] Upper Cutter Machine Hematology/Oncology 07/23/23 Broommaker Relationship Specialty Start Date End Date Vishal Jones MD [address] [facility] [place] [address] PCP - General Family Medicine 09/25/17 Deborah Sabillon RN Specialty Gum Machine Operator Oncology 07/30/17 Clement Werner MD [address] [place] [address] Physician Radiation Oncology 01/29/18 Vishal Jones MD [address] [facility] [place] [address] Home Care Provider Family Medicine 08/17/20 Maye Gonzalez MD [address] [place] [address] Consulting General Surgery 08/17/20 Dayna Mann RN [address] [place] [address] In Home Tutor Post Acute Care 08/17/20 Maye Gonzalez MD [address] [place] [address] Referring General Surgery 08/23/20 Roxana Davis LISW [address] [place] [address] Upper Cutter Machine Hematology/Oncology 07/23/23 Catalina Rios RN [address] [place] [address] Primary Care Retail Financial Analyst 12/29/23 Broommaker Relationship Specialty Start Date End Date Vishal Jones MD [address] [place] [address] PCP - General Family Medicine 09/25/17 Deborah Sabillon RN Specialty Gum Machine Operator Oncology 07/30/17 Clement Werner MD [address] [facility] [place] [address] Physician Radiation Oncology 01/29/18 Vishal Jones MD [address] [place] [address] Home Care Provider Family Medicine 08/17/20 Maye Gonzalez MD [address] [facility] [place] [address] Consulting General Surgery 08/17/20 Dayna Mann RN [address] [place], [place] 6419731 In Home Tutor Post Acute Care 08/17/20 Maye Gonzalez MD [address] [facility] [place] [address] Referring General Surgery 08/23/20 Roxana Davis LISW [address] [facility] [place] [address] Upper Cutter Machine Hematology/Oncology 07/23/23 Catalina Rios RN [address] [place] [address] Primary Care Retail Financial Analyst 12/29/23 Broommaker Relationship Specialty Start Date End Date Vishal Jones MD [address] [place] [address] PCP - General Family Medicine 09/25/17 Deborah Sabillon RN Specialty Gum Machine Operator Oncology 07/30/17 Clement Werner MD [address] [place] [address] Physician Radiation Oncology 01/29/18 Vishal Jones MD [address] [facility] [place] [address] Home Care Provider Family Medicine 08/17/20 Maye Gonzalez MD [address] [place] [address] Consulting General Surgery 08/17/20 Dayna Mann RN [address] [place], [place] 2653331 In Home Tutor Post Acute Care 08/17/20 Maye Gonzalez MD [address] [place] [address] Referring General Surgery 08/23/20 Roxana Davis LISW [address] [facility] [place] [address] Upper Cutter Machine Hematology/Oncology 07/23/23 Catalina Rios, ELIE [address] [place] [address] Primary Care Retail Financial Analyst 12/29/23 Broommaker Relationship Specialty Start Date End Date Vishal Jones MD [address] [place] [address] PCP - General Family Medicine 09/25/17 Deborah Sabillon RN Specialty Gum Machine Operator Oncology 07/30/17 Clement Werner MD [address] [place] [address] Physician Radiation Oncology 01/29/18 Vishal Jones MD [address] [place] [address] Home Care Provider Family Medicine 08/17/20 Maye Gonzalez MD [address] [place] [address] Consulting General Surgery 08/17/20 Dayna Mann RN [address] [place] [address] In Home Tutor Post Acute Care 08/17/20 Maye Gonzalez MD [address] [place], [place] 949801 Referring General Surgery 08/23/20 Roxana Davis LISW [address] [place] [address] Upper Cutter Machine Hematology/Oncology 07/23/23 Catalina Rios RN [address] [place] [address] Primary Care Retail Financial Analyst 12/29/23 Broommaker Relationship Specialty Start Date End Date Vishal Jones MD [address] [place] [address] PCP - General Family Medicine 09/25/17 Deborah Sabillon RN Specialty Gum Machine Operator Oncology 07/30/17 Clement Werner MD [address] [place] [address] Physician Radiation Oncology 01/29/18 Vishal Jones MD [address] [place], [place] 77899691 Home Care Provider Family Medicine 08/17/20 Maye Gonzalez MD [address] [place], [place] 842651 Consulting General Surgery 08/17/20 Dayna Mann RN [address] [place], [place] 9081331 In Home Tutor Post Acute Care 08/17/20 Maye Gonzalez MD [address] [place] [address] Referring General Surgery 08/23/20 Roxana Davis LISW [address] [place] [address] Upper Cutter Machine Hematology/Oncology 07/23/23 Catalina Rios, ELIE [address] [place] [address] Primary Care Retail Financial Analyst 12/29/23 Broommaker Relationship Specialty Start Date End Date Vishal Jones MD [address] [facility] [place] [address] PCP - General Family Medicine 09/25/17 Deborah Sabillon RN Specialty Gum Machine Operator Oncology 07/30/17 Clement Werner MD [address] [place] [address] Physician Radiation Oncology 01/29/18 Vishal Jones MD [address] [facility] [place] [address] Home Care Provider Family Medicine 08/17/20 Maye Gonzalez MD [address] [place] [address] Consulting General Surgery 08/17/20 Dayna Mann RN [address] [place], [place] 9894231 In Home Tutor Post Acute Care 08/17/20 Maye Gonzalez MD [address] [place] [address] Referring General Surgery 08/23/20 Roxana Davis LISW [address] [facility] [place] [address] Upper Cutter Machine Hematology/Oncology 07/23/23 Catalina Rios, ELIE [address] [place] [address] Primary Care Retail Financial Analyst 12/29/23 Broommaker Relationship Specialty Start Date End Date Vishal Jones MD [address] [place] [address] PCP - General Family Medicine 09/25/17 Deborah Sabillon RN Specialty Gum Machine Operator Oncology 07/30/17 Clement Werner MD [address] [facility] [place] [address] Physician Radiation Oncology 01/29/18 Vishal Jones MD [address] [place] [address] Home Care Provider Family Medicine 08/17/20 Maye Gonzalez MD [address] [facility] [place] [address] Consulting General Surgery 08/17/20 Dayna Mann RN [address] [place] [address] In Home Tutor Post Acute Care 08/17/20 Maye Gonzalez MD [address] [facility] [place] [address] Referring General Surgery 08/23/20 Roxana Davis LISW [address] [facility] [place] [address] Upper Cutter Machine Hematology/Oncology 07/23/23 Catalina Rios, ELIE [address] [place] [address] Primary Care Retail Financial Analyst 12/29/23 Broommaker Relationship Specialty Start Date End Date Vishal Jones MD [address] [place] [address] PCP - General Family Medicine 09/25/17 Deborah Sabillon RN Specialty Gum Machine Operator Oncology 07/30/17 Clement Werner MD [address] [address] Physician Radiation Oncology 01/29/18 Vishal Jones MD [address] [facility] [place] [address] Home Care Provider Family Medicine 08/17/20 Maye Gonzalez MD [address] [facility] [place] [address] Consulting General Surgery 08/17/20 Dayna Mann RN [address] [place], [place] 3621531 In Home Tutor Post Acute Care 08/17/20 Maye Gonzalez MD [address] [place] [place] [address] Referring General Surgery 08/23/20 Roxana Davis LISW [address] [facility] [place] [address] Upper Cutter Machine Hematology/Oncology 07/23/23 Catalina Rios, ELIE [address] [place] [address] Primary Care Retail Financial Analyst 12/29/23 Broommaker Relationship Specialty Start Date End Date Vishal Jones MD [address] [facility] [place] [address] PCP - General Family Medicine 09/25/17 Deborah Sabillon RN Specialty Gum Machine Operator Oncology 07/30/17 Clement Werner MD [address] [place] [address] Physician Radiation Oncology 01/29/18 Vishal Jones MD [address] [place], [place] 513491 Home Care Provider Family Medicine 08/17/20 Maye Gonzalez MD [address] [place], [place] 895311 Consulting General Surgery 08/17/20 Dayna Mann, ELIE [address] [place] [address] In Home Tutor Post Acute Care 08/17/20 Maye Gonzalez MD [address] [place], [place] 299481 Referring General Surgery 08/23/20 Roxana Davis LISW [address] [place] [address] Upper Cutter Machine Hematology/Oncology 07/23/23 Catalina Rios, ELIE [address] [place] [address] Primary Care Retail Financial Analyst 12/29/23 Broommaker Relationship Specialty Start Date End Date Vishal Jones MD [address] [place], [place] 972161 PCP - General Family Medicine 09/25/17 Deborah Sabillon RN Specialty Gum Machine Operator Oncology 07/30/17 Clement Werner MD [address] [place], [place] 721001 Physician Radiation Oncology 01/29/18 Vishal Jones MD [address] [place], [place] 71678691 Home Care Provider Family Medicine 08/17/20 Maye Gonzalez MD [address] [place], [place] 83307691 Consulting General Surgery 08/17/20 Dayna Mann RN [address] [place] [address] In Home Tutor Post Acute Care 08/17/20 Maye Gonzalez MD [address] [place], [place] 219191 Referring General Surgery 08/23/20 Roxana Davis LISW [address] [place] [address] Upper Cutter Machine Hematology/Oncology 07/23/23 Catalina Rios, ELIE [address] [place] [address] Primary Care Retail Financial Analyst 12/29/23 Broommaker Relationship Specialty Start Date End Date Vishal Jones MD [address] [facility] [place] [address] PCP - General Family Medicine 09/25/17 Deborah Sabillon RN Specialty Gum Machine Operator Oncology 07/30/17 Clement Werner MD [address] [place] [address] Physician Radiation Oncology 01/29/18 Vishal Jones MD [address] [facility] [place] [address] Home Care Provider Family Medicine 08/17/20 Maye Gonzalez MD [address] [place] [address] Consulting General Surgery 08/17/20 Dayna Mann RN [address] [place], [place] 0810931 In Home Tutor Post Acute Care 08/17/20 Maye Gonzalez MD [address] [place], [place] 930751 Referring General Surgery 08/23/20 Roxana Davis LISW [address] [facility] [place] [address] Upper Cutter Machine Hematology/Oncology 07/23/23 Broommaker Relationship Specialty Start Date End Date Vishal Jones MD [address] [place] [address] PCP - General Family Medicine 09/25/17 Deborah Sabillon RN Specialty Gum Machine Operator Oncology 07/30/17 Clement Werner MD [address] [place] [address] Physician Radiation Oncology 01/29/18 Vishal Jones MD [address] [facility] [place] [address] Home Care Provider Family Medicine 08/17/20 Maye Gonzalez MD [address] [place] [address] Consulting General Surgery 08/17/20 Dayna Mann, ELIE [address] [facility], [place] 9004231 In Home Tutor Post Acute Care 08/17/20 Maye Gonzalez MD [address] [facility] [place] [address] Referring General Surgery 08/23/20 Roxana Davis LISW [address] [facility] [place] [address] Upper Cutter Machine Hematology/Oncology 07/23/23 Broommaker Relationship Specialty Start Date End Date Vishal Jones MD [address] [facility] [place] [address] PCP - General Family Medicine 09/25/17 Deborah Sabillon RN Specialty Gum Machine Operator Oncology 07/30/17 Clement Werner MD [address] [place] [address] Physician Radiation Oncology 01/29/18 Vishal Jones MD [address] [place] [address] Home Care Provider Family Medicine 08/17/20 Maye Gonzalez MD [address] [place] [address] Consulting General Surgery 08/17/20 Dayna Mann, ELIE [address] [facility] [place], [place] 5490431 In Home Tutor Post Acute Care 08/17/20 Maye Gonzalez MD [address] [place] [address] Referring General Surgery 08/23/20 Roxana Davis LISW [address] [place] [address] Upper Cutter Machine Hematology/Oncology 07/23/23 Broommaker Relationship Specialty Start Date End Date Vishal Jones MD [address] [place] [address] PCP - General Family Medicine 09/25/17 Deborah Sabillon RN Specialty Gum Machine Operator Oncology 07/30/17 Clement Werner MD [address] [place] [address] Physician Radiation Oncology 01/29/18 Vishal Jones MD [address] [place] [address] Home Care Provider Family Medicine 08/17/20 Maye Gonzalez MD [address] [place], [place] [address] Consulting General Surgery 08/17/20 Dayna Mann RN [address] [place] [id number] In Home Tutor Post Acute Care 08/17/20 Maye Gonzalez MD [address] [place], [place] [address] Referring General Surgery 08/23/20 Roxana Davis LISW [address] [place] [address] Upper Cutter Machine Hematology/Oncology 07/23/23 Broommaker Relationship Specialty Start Date End Date Vishal Jones MD [address] [place] [address] PCP - General Family Medicine 09/25/17 Deborah Sabillon RN Specialty Gum Machine Operator Oncology 07/30/17 Clement Werner MD [address] [place] [address] Physician Radiation Oncology 01/29/18 Vishal Jones MD [address] [place], [place] [address] Home Care Provider Family Medicine 08/17/20 Maye Gonzalez MD [address] [place] [address] Consulting General Surgery 08/17/20 Dayna Mann RN [address] [place], [place] [id number] In Home Tutor Post Acute Care 08/17/20 Maye Gonzalez MD [address] [place], [place] [address] Referring General Surgery 08/23/20 Roxana Davis LISW [address] [place] [address] Upper Cutter Machine Hematology/Oncology 07/23/23 Broommaker Relationship Specialty Start Date End Date Vishal Jones MD [address] [facility], [place] [address] PCP - General Family Medicine 09/25/17 Deborah Sabillon RN Specialty Gum Machine Operator Oncology 07/30/17 Clement Werner MD [address] [place] [address] Physician Radiation Oncology 01/29/18 Vishal Jones MD [address] [facility], [place] [address] Home Care Provider Family Medicine 08/17/20 Maye Gonzalez MD [address] [place] [address] Consulting General Surgery 08/17/20 Dayna Mann, ELIE [address] [place] [address] In Home Tutor Post Acute Care 08/17/20 Maye Gonzalez MD [address] [place] [address] Referring General Surgery 08/23/20 Roxana Davis LISW [address] [place] [address] Upper Cutter Machine Hematology/Oncology 07/23/23 Broommaker Relationship Specialty Start Date End Date Vishal Jones MD [address] [facility], [place] [address] PCP - General Family Medicine 09/25/17 Doup, Deborah, RN Specialty Gum Machine Operator Oncology 07/30/17 Clement Werner MD [address] [place] [address] Physician Radiation Oncology 01/29/18 Vishal Jones MD [address] [facility] [place] [address] Home Care Provider Family Medicine 08/17/20 Maye Gonzalez MD [address] [place] [address] Consulting General Surgery 08/17/20 Dayna Mann, ELIE [address] [facility] [place], [place] [phone] In Home Tutor Post Acute Care 08/17/20 Maye Gonzalez MD [address] [place] [address] Referring General Surgery 08/23/20 Roxana Davis LISW [address] [place] [address] Upper Cutter Machine Hematology/Oncology 07/23/23 Broommaker Relationship Specialty Start Date End Date Vishal Jones MD [address] [facility] [place] [address] PCP - General Family Medicine 09/25/17 Deborah Sabillon RN Specialty Gum Machine Operator Oncology 07/30/17 Clement Werner MD [address] [place] [address] Physician Radiation Oncology 01/29/18 Vishal Jones MD [address] [facility] [place] [address] Home Care Provider Family Medicine 08/17/20 Maye Gonzalez MD [address] [place], [place] [address] Consulting General Surgery 08/17/20 Dayna Mann RN [address] [place], [place] [id number] In Home Tutor Post Acute Care 08/17/20 Maye Gonzalez MD [address] [place] [address] Referring General Surgery 08/23/20 Roxana Davis LISW [address] [place] [address] Upper Cutter Machine Hematology/Oncology 07/23/23 Broommaker Relationship Specialty Start Date End Date Vishal Jones MD [address] [place] [address] PCP - General Family Medicine 09/25/17 Deborah Sabillon RN Specialty Gum Machine Operator Oncology 07/30/17 Clement Werner MD [address] [place], [place] [address] Physician Radiation Oncology 01/29/18 Vishal Jones MD [address] [facility], [place], [place] [address] Home Care Provider Family Medicine 08/17/20 Maye Gonzalez MD [address] [place], [place] [address] Consulting General Surgery 08/17/20 Dayna Mann RN [address] [place], [place] [phone] In Home Tutor Post Acute Care 08/17/20 Maye Gonzalez MD [address] [place], [place] [address] Referring General Surgery 08/23/20 Roxana Davis LISW [address] [place] [address] Upper Cutter Machine Hematology/Oncology 07/23/23 Broommaker Relationship Specialty Start Date End Date Vishal Jones MD [address] [facility] [place] [address] PCP - General Family Medicine 09/25/17 Deborah Sabillon RN Specialty Gum Machine Operator Oncology 07/30/17 Clement Werner MD [address] [place] [address] Physician Radiation Oncology 01/29/18 Vishal Jones MD [address] [place] [address] Home Care Provider Family Medicine 08/17/20 Maye Gonzalez MD [address] [place] [address] Consulting General Surgery 08/17/20 Dayna Mann, ELIE [address] [place], [place] [phone] In Home Tutor Post Acute Care 08/17/20 Maye Gonzalez MD [address] [place] [address] Referring General Surgery 08/23/20 Roxana Davis LISW [address] [facility] [place] [address] Upper Cutter Machine Hematology/Oncology 07/23/23 Broommaker Relationship Specialty Start Date End Date Vishal Jones MD [address] [place] [address] PCP - General Family Medicine 09/25/17 Deborah Sabillon RN Specialty Gum Machine Operator Oncology 07/30/17 Clement Werner MD [address] [place] [address] Physician Radiation Oncology 01/29/18 Vishal Jones MD [address] [facility], [place], [place] [address] Home Care Provider Family Medicine 08/17/20 Maye Gonzalez MD [address] [place] [address] Consulting General Surgery 08/17/20 Dayna Mann RN [address] [place] [address] In Home Tutor Post Acute Care 08/17/20 Maye Gonzalez MD [address] [place] [address] Referring General Surgery 08/23/20 Roxana Davis LISW [address] [facility] [place] [address] Upper Cutter Machine Hematology/Oncology 07/23/23 Administered Medications Administered Medications (un recognized section and content) Medication Order MAR Action Action Date Dose Rate Site tuberculin skin test, unspecified formulation Given 11/21/2023 0.1 ml tuberculin skin test, unspecified formulation Given 11/29/2023 0.1 ml FOR RECORDS PERTAINING TO PATIENTS WHO ARE [...] BE BASED ON THE PRIMARY CLINICAL RECORDS. [facility]. provides no warranty or guarantee of the accuracy or completeness of information in this document.
[2024-07-13] MEDS: Diphth,Pertuss(Acell),Tet Vac 0.5 ML Vial IM (05:50)
[2024-07-13 07:30] VITALS: BP 131/78; PULSE 64; RESP 18; O2SAT 97
[2024-07-13 07:58] VITALS: BP 123/78; PULSE 64; RESP 18; TEMP 36.6; O2SAT 99
== END 2024-07-13 09:23 | disposition home or self-care (01) ==
PROVIDERS: Emergency Provider Emergency Medicine; PCP Family Medicine; Visit Provider Emergency Medicine
DX: S06.0X0A Concussion without loss of consciousness, initial encounter (principal); F03.90 Unspecified dementia, unspecified severity, without behavioral disturbance, psychotic disturbance, mood disturbance, and anxiety; E78.00 Pure hypercholesterolemia, unspecified; S01.81XA Laceration without foreign body of other part of head, initial encounter; I25.10 Atherosclerotic heart disease of native coronary artery without angina pectoris; I10 Essential (primary) hypertension; I25.2 Old myocardial infarction; Z79.82 Long term (current) use of aspirin; Z23 Encounter for immunization; Z79.899 Other long term (current) drug therapy; Z86.73 Personal history of transient ischemic attack (TIA), and cerebral infarction without residual deficits; W19.XXXA Unspecified fall, initial encounter
CPT/HCPCS: 70450; 72125; 90471; 90715; 99284

== ENCOUNTER 2024-10-14 12:43 | Inpatient (IN) | payer MEDICARE, BC, SELFPAY ==
[2024-10-14] VITALS (24 sets, daily range): BP systolic 80–135; BP diastolic 47–93; PULSE 68–92; RESP 12–25; TEMP 35.7–36.4; O2SAT 94–100; BMI 23.5; BMI 24.0
[2024-10-14] MEDS: 0.9% Normal Saline (1000mL) 1,000 ML 999 ML IV ×3 (12:50→15:12)
--- NOTE | 2024-10-14 12:56 | EKG12_ITS ---
Test Reason : Blood Pressure : */* mmHG Vent. Rate : 79 BPM Atrial Rate : 79 BPM P-R Int : 272 ms QRS Dur : 92 ms QT Int : 378 ms P-R-T Axes : 81 -58 21 degrees QTcB Int : 433 ms Sinus rhythm with sinus arrhythmia with 1st degree A-V block Left axis deviation Incomplete right bundle branch block Inferior infarct , age undetermined Abnormal ECG Confirmed by CESAR HOLDER MD ([id number]), image editor YADI JAY ([id number]) on 10/18/2024 7:11:02 AM Referred By: Leo Todd Confirmed By: CESAR HOLDER MD
--- NOTE | 2024-10-14 12:58 | EX.ED.DYSGE1 ---
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 The patient did have a diagnosed UTI, original samples taken on 10/11/2023. Patient was started on Bactrim. The cultures came in and the Bactrim was resistant. Patient also had some low blood pressure at the facility and is here for evaluation. Patient's only complaint is from a hernia that has been chronic. Patient denies any other discomfort. Denies any vomiting, denies any blood in stool. [facility] <PAULA Rey - Last Filed: 10/14/24 14:01> [facility] Medical History Acute UTI Syncope Near syncope Alcohol abuse GI bleed Non-smoker Stroke/cerebrovascular accident Vision loss of right eye Vision loss of left eye Hearing loss, left Hearing loss, right Chronic pain Kidney stones Kidney disease Myocardial infarct Chest pain Acute cerebrovascular accident (CVA) CVA (cerebral vascular accident) Vitamin D deficiency Chronic pain Cognitive impairment Frequent falls Smoker Fall History of echocardiogram Wears hearing aid Wears glasses Wears dentures Cancer Depression Anxiety Alcohol use Gait instability Ambulates with cane Arthritis High cholesterol Easy bruising Back pain Chewing tobacco nicotine dependence History of pain when walking History of stress test Cardiology follow-up encounter History of heart attack Colon cancer 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4 mg sublingual 0.4 mg sublingual Q5M PRN CHEST 05/12/23 Unknown Rx tablet PAIN #25 tabs atorvastatin 10 mg tablet 10 mg PO QHS CHOLESTEROL 10/31/23 01/04/24 History bupropion HCl 150 mg tablet,12 hr 150 mg PO BID DEPRESSION 10/31/23 01/05/24 History sustained-release mirtazapine 45 mg tablet 45 mg PO QHS DEPRESSION 10/31/23 01/04/24 History gabapentin 100 mg capsule 100 mg PO TID NEUROPATHY 11/14/23 01/05/24 History lidocaine 5 % topical patch 2 patch topical DAILY PAIN #0 ea 11/17/23 01/05/24 Rx multivitamin (Daily Multi-Vitamin 1 tab PO DAILY 01/05/24 01/05/24 History tablet) acetaminophen 325 mg tablet 650 mg (2 x 325 mg) PO Q6H PRN PRN 04/18/24 Unknown Rx Pain 1-10 Or Fever #0 tabs ertapenem 1 gram solution for 1 g IV Q24 #0 ea 04/18/24 Unknown Rx injection food supplemt, lactose-reduced 120 ml PO 4X/DAY #0 mL 04/18/24 Unknown Rx 0.08 gram-1.5 kcal/mL oral liquid (Ensure Plus High Protein) lidocaine 5 % topical patch 1 patch topical DAILY #0 ea 04/18/24 Unknown Rx sennosides 8.6 mg-docusate sodium 2 tab PO BID PRN PRN Constipation 04/18/24 Unknown Rx 50 mg tablet (Stimulant Laxative #0 tabs Plus) Allergy/AdvReac Type Severity Reaction Status Date / Time No Known Allergies Allergy Verified 10/14/24 12:54 Family History Father Cancer skin cancer Mother Myocardial infarction Diabetes Other Fall Surgical History History of angioplasty History of colostomy History of left heart catheterization (02/24/02) H/O percutaneous transluminal coronary angioplasty (11/13/93) History of cystoscopy Hx of appendectomy History of inguinal hernia repair, bilateral Status post trigger finger release History of rotator cuff surgery Hx of colectomy Social History household members: none Smoking Status: Never smoker alcohol intake: current alcohol intake frequency: a few times a month Alcohol type: hard liquor substance use type: does not use caffeine: Yes Type: coffee Number of servings: 1 ROS <PAULA Rey - Last Filed: 10/14/24 14:01> ROS ED ROS Narrative Patient is alert and orient x 2. Constitutional: Negative for fever, chills, weight loss, weakness Eyes: Negative for vision loss, vision change, double vision ENT: Negative for any sore throat, ear pain, congestion Cardiovascular: Negative for any chest pain, tightness, palpitations Respiratory: Negative for any cough, sputum production, hemoptysis, dyspnea, dyspnea on exertion, orthopnea Gastrointestinal: Negative for any nausea, vomiting, diarrhea, constipation, blood in stool, blood in vomit. Positive for abdominal pain : Negative for any urinary frequency, dysuria, retention, blood in urine Muscle skeletal: Negative for any neck pain, back pain Neurological: Negative for any headache, syncope, dizziness Skin: Negative for any rashes, itching, abrasions, lacerations Psychiatric: Negative for any depression, anxiety, stress, suicidal ideation, homicidal ideation Hematologic: Negative for any excessive bruising, easy bleeding EXAM <PAULA Rey - Last Filed: 10/14/24 14:01> Physical Exam Narrative Exam Narrative: Vital signs reviewed. Patient is alert, patient is not tachycardic however his blood pressure is 83/40. HEET: Head normocephalic atraumatic, TMs clear bilaterally. Posterior pharynx is clear, dry mucous membranes. Nares clear bilaterally. Neck: Supple with no lymphadenopathy or tenderness. No signs of meningismus. Cardiac: Regular rate and rhythm no murmurs gallops or rubs, equal peripheral pulses bilaterally. Patient does have the protrusion of an old PowerPort to the right chest. Respiratory: Lungs clear to auscultation bilaterally. No chest tenderness. Abdomen: Soft, patient does have a ventral hernia to the mid abdomen, he states this is chronic. It is soft. Patient has no peritoneal signs. Patient does have a colostomy that has brown to yellow excrement. No abdominal bruit or pulsatile masses. No hepatosplenomegaly Extremities: No peripheral edema, no signs of gross trauma or deformity. Active full range of motion of all extremities. Neuro: Cranial nerves II through XII intact, no focal neurological deficits. Skin: Clean dry and intact with no rash, purpura, petechiae, vesicles or pustules. Backs/flank: No CVA tenderness, no midline spinal tenderness, no deformity. Psych: Normal mood and affect. No SI, HI or acute psychosis. Const Vital Signs: 10/14/24 12:45 10/14/24 12:52 10/14/24 12:56 Temperature 97.5 F L 97.4 F L Temperature Source Oral Oral Pulse Rate 86 82 Respiratory Rate 17 16 Respiratory Effort Normal Respiratory Pattern Normal Blood Pressure 83/61 L 83/61 L Blood Pressure Mean 68 68 Pulse Ox 94 99 Oxygen Delivery Method Room Air Room Air <Dr. Leo Todd MD - Last Filed: 10/14/24 15:11> Physical Exam Const Vital Signs: 10/14/24 12:45 10/14/24 12:52 10/14/24 12:56 Temperature 97.5 F L 97.4 F L Temperature Source Oral Oral Pulse Rate 86 82 Respiratory Rate 17 16 Respiratory Effort Normal Respiratory Pattern Normal Blood Pressure 83/61 L 83/61 L Blood Pressure Mean 68 68 Pulse Ox 94 99 Oxygen Delivery Method Room Air Room Air [facility] <PAULA Rey - Last Filed: 10/14/24 14:01> [facility] Lab Data Labs: Laboratory Results - last 24 hr 10/14/24 10/14/24 10/14/24 13:15 13:55 14:27 WBC 22.9 H RBC 3.28 L Hgb 9.3 L Hct 28.9 L MCV 88.1 MCH 28.4 MCHC 32.2 RDW Std Deviation 51.3 H RDW Coeff of Kathryn 15.8 H Plt Count 203 MPV 9.1 Immature Gran % (Auto) 1.100 H Neut % (Auto) 89.5 H Lymph % (Auto) 3.4 L [place] % (Auto) 5.1 Eos % (Auto) 0.5 Baso % (Auto) 0.4 Absolute Neuts (auto) 20.5 H Absolute Lymphs (auto) 0.77 L Nucleated RBC % 0 Differential Comment SCANNED PT 12.6 INR 0.9 Sodium 135 L Potassium 4.3 Chloride 107 Carbon Dioxide 18.0 L Anion Gap 10 BUN 49 H Creatinine 2.85 H Estim Creat Clear Calc 18.33 Est GFR (MDRD) Af Amer 27 L Est GFR (MDRD) Non-Af 23 L BUN/Creatinine Ratio 17.2 Glucose 137 H Lactic Acid 3.2 H* Calcium 8.6 Total Bilirubin 0.40 AST 52 H ALT 58 Alkaline Phosphatase 271 H Total Protein 6.2 L Albumin 2.3 L Globulin 3.9 Albumin/Globulin Ratio 0.6 L Urine Color Yellow Urine Clarity Cloudy Urine pH 6.0 Ur Specific [place] 1.010 Urine Protein 30 H Urine Glucose (UA) Normal Urine Ketones Negative Urine Occult Blood 50 H Urine Nitrite Negative Urine Bilirubin Negative Urine Urobilinogen Normal Ur Leukocyte Esterase 500 H Urine RBC 5-10 SEEN Urine WBC 50-100 SEEN Ur Squamous Epith Cells 0-5 SEEN Ur Transition Epith Cell 0-5 SEEN Ur Renal Epithelial Cell 25-50 SEEN Urine Bacteria 4+ Urine Mucus 1+ Radiography Diagnostic Testing: Clinical Impression(s) from Imaging Studies Chest X-Ray 10/14/24 13:30 IMPRESSION: No acute abnormality is seen. Reading Location: [place] [address] EKG EKG shows sinus rhythm with sinus arrhythmia: Attestation: I personally reviewed and interpreted this EKG as follows: Interpretation: Sinus Rhythm Comments: Sinus rhythm with sinus arrhythmia, first-degree AV block, no acute ST elevation, rate of 79 bpm, ID interval 222 ms, QRS duration 92 ms, no acute ST elevation, no acute infarct noted. Treatment and Re-Evaluation :: Differential diagnosis includes however is not limited to: Septicemia, UTI, electrode abnormality, dehydration, community-acquired pneumonia, CVA Patient is hypotensive and 83/43. Patient is mentating well and does answer questions. Patient does not appear to be in any respiratory distress. Patient's physical examination was mostly unremarkable. Patient is alert and orient x 2. I did look at the patient's urinalysis as well as urine culture that was collected on 10/11/2024. Patient was placed on Bactrim, does appear to be resistant. Patient be given IV Zosyn. IV fluids. Basic laboratory values with a lactic acid will be ordered. I did perform an oral temperature myself, this was negative. Chest x-ray 1 view will be ordered. Patient will need to be reevaluated. All radiologic examinations were read, reviewed by the emergency department attending. From these reads, a plan of care will be put in place. Patient's laboratory values show a significant leukocytosis with a white blood count of 22.9, hemoglobin is 9.3, this is 1 g lower than greater than 1 year ago. Patient's chemistry showed creatinine of 2.85, significant increase, from previous 0.97 in April 2024. Patient's lactic acid was elevated at 3.2. Patient did receive a septic laboratory values, lactic, 2 sets of blood cultures, IV Zosyn started. Alkaline phosphatase is 271, ALT of 52. Patient was given 2 L of normal saline. Will need to be admitted to the hospital. Chest x-ray showed no acute process. <Dr. Leo Todd MD - Last Filed: 10/14/24 15:11> MDM MDM Narrative Medical decision making narrative: I have personally performed a face to face assessment of the patient and have reviewed the RAS Note. I performed a substantive portion of the visit including all aspects of the following. My [place] findings include: History is [84-year-old male recently diagnosed with UTI [facility]. When the other sensitivity back it was resistant to Bactrim and they are concerned that he may be getting worse with mental status change. Patient denies complaints. Denies vomiting or diarrhea. Denies fever.] Exam is [84-year-old male lying in bed. No acute distress. Initial blood pressure 83/61. He is afebrile. His pulse ox 94% on room air. He does not look toxic. H EENT exam pupils round react light. Mildly dry mucous members. Neck nontender no meningismus. No lymphadenopathy. Lungs clear to auscultation bilaterally. Heart regular rhythm no murmur. Chest wall and ribs nontender. Abdomen soft nontender. He has a colostomy bag with brown stool and gas in it. No peritoneal signs. No distention. Moving all 4 extremities. Nontender no edema. Neurologically is awake and alert. Answering questions. Following commands.] Medical Decision Making [ ] Other additions or changes: [None] History & Record Review Additional record(s) reviewed:: Prior inpatient record, Prior outpatient record, Prior ED visit and Prior labs Lab Data Attestation: I reviewed the patient's lab results. Lab results narrative: CBC shows a white count 22.9. H&H 9.3 and 28.9. Consistent with his baseline anemia. Platelet count 203. Electrolytes show sodium 135. Gap 10. BUN of 49 creatinine 2.85. Glucose 137. Liver enzymes show an alk phos of 271. Chest x-ray chronic changes. Labs: Laboratory Results - last 24 hr 10/14/24 10/14/24 10/14/24 13:15 13:55 14:27 WBC 22.9 H RBC 3.28 L Hgb 9.3 L Hct 28.9 L MCV 88.1 MCH 28.4 MCHC 32.2 RDW Std Deviation 51.3 H RDW Coeff of Kathryn 15.8 H Plt Count 203 MPV 9.1 Immature Gran % (Auto) 1.100 H Neut % (Auto) 89.5 H Lymph % (Auto) 3.4 L [place] % (Auto) 5.1 Eos % (Auto) 0.5 Baso % (Auto) 0.4 Absolute Neuts (auto) 20.5 H Absolute Lymphs (auto) 0.77 L Nucleated RBC % 0 Differential Comment SCANNED PT 12.6 INR 0.9 Sodium 135 L Potassium 4.3 Chloride 107 Carbon Dioxide 18.0 L Anion Gap 10 BUN 49 H Creatinine 2.85 H Estim Creat Clear Calc 18.33 Est GFR (MDRD) Af Amer 27 L Est GFR (MDRD) Non-Af 23 L BUN/Creatinine Ratio 17.2 Glucose 137 H Lactic Acid 3.2 H* Calcium 8.6 Total Bilirubin 0.40 AST 52 H ALT 58 Alkaline Phosphatase 271 H Total Protein 6.2 L Albumin 2.3 L Globulin 3.9 Albumin/Globulin Ratio 0.6 L Urine Color Yellow Urine Clarity Cloudy Urine pH 6.0 Ur Specific [place] 1.010 Urine Protein 30 H Urine Glucose (UA) Normal Urine Ketones Negative Urine Occult Blood 50 H Urine Nitrite Negative Urine Bilirubin Negative Urine Urobilinogen Normal Ur Leukocyte Esterase 500 H Urine RBC 5-10 SEEN Urine WBC 50-100 SEEN Ur Squamous Epith Cells 0-5 SEEN Ur Transition Epith Cell 0-5 SEEN Ur Renal Epithelial Cell 25-50 SEEN Urine Bacteria 4+ Urine Mucus 1+ Radiography Chest X-Ray - ED: Read by ED Physician, Normal, Heart, Lungs, Mediastinum, No Acute Disease and Chronic Changes Diagnostic Testing: Clinical Impression(s) from Imaging Studies Chest X-Ray 10/14/24 13:30 IMPRESSION: No acute abnormality is seen. Reading Location: [id number] Chest x-ray, 1 view, 2 films, interpreted myself and radiologist shows normal cardiac silhouette. Normal lung norris. No acute process. Chronic changes. <Dr. Leo Todd MD - Last Filed: 10/14/24 15:11> Critical Care Time Critical Care Time: Yes Critical care time (excluding procedures): 30-74 minutes, Including time spent:, Discussing w/Patient &/or Family/Senior Marketing Analyst, Discussing w/Consultants, Arranging Admission or Transfer, Performing Direct Patient Care at Bedside and - (40 minutes) Discharge Plan Triage Chief Complaint: Complaint Other Complaint: Hypotension ED Midlevel Provider: Sam Feldman ED Provider: Leo Todd Dx/Rx/DC Orders Clinical Impression: Sepsis, Leukocytosis, Acute UTI, Acute hypotension, Acute kidney injury Prescriptions: No Action finasteride [Proscar] 5 mg tablet 5 mg PO DAILY aspirin [Adult Low Dose Aspirin] 81 mg tablet,delayed release (DR/EC) 81 mg PO DAILY tamsulosin 0.4 mg capsule 0.4 mg PO QHS gabapentin 100 mg capsule 100 mg PO TID lidocaine 5 % Adhesive Patch,Medicated 2 patch topical DAILY Qty: 0 0RF Protocol: *Topical Application Instructions APPLICATION INSTRUCTIONS: Apply to lumbar spine and right and left paraspinal muscles. multivitamin [Daily Multi-Vitamin] Tablet 1 tab PO DAILY atorvastatin 10 mg tablet 10 mg PO QHS bupropion HCl 150 mg tablet sustained-release 12 hr 150 mg PO BID mirtazapine 45 mg tablet 45 mg PO QHS acetaminophen 325 mg Tablet 650 mg PO Q6H PRN PRN (Reason: Pain 1-10 Or Fever) Qty: 0 0RF sennosides-docusate sodium [Stimulant Laxative Plus] 8.6-50 mg Tablet 2 tab PO BID PRN PRN (Reason: Constipation) Qty: 0 0RF lidocaine 5 % Adhesive Patch,Medicated 1 patch topical DAILY Qty: 0 0RF Protocol: *Topical Application Instructions APPLICATION INSTRUCTIONS: R hip ertapenem 1 gram Recon Soln 1 g IV Q24 Qty: 0 0RF Ensure Plus High Protein 0.08 gram-1.5 kcal/mL Liquid 120 ml PO 4X/DAY Qty: 0 0RF nitroglycerin 0.4 mg tablet, sublingual 0.4 mg SL Q5M PRN (Reason: CHEST PAIN ) Qty: 25 3RF Primary Care Provider: Vishal Antonio Referrals: Vishal Antonio MD [Primary Care Provider] - Print Language: Croatian Disposition Disposition: Acute Care Hospital [facility]
[2024-10-14 13:29] LABS: Absolute Lymphocyte Count 0.77 X10^3/uL (0.83-4.51); Absolute Neutrophil Count 20.5 X10^3/uL (2.0-7.7); Basophil# 0.09 X10^3/uL; Basophil% 0.4 % (0-1); Eosinophil# 0.11 X10^3/uL; Eosinophils% 0.5 % (0-5); Hematocrit 28.9 % (40-54); Hemoglobin 9.3 g/dL (13.0-16.5); Lymphocyte # 0.77 X10^3/ul (0.83-4.51); Lymphocyte % 3.4 % (19-41); Mean Corp Hgb Conc 32.2 g/dL (32-36); Mean Corpuscular Hgb 28.4 pg (27.0-32.0); Mean Corpuscular Volume 88.1 fL (80-94); Mean Platelet Vol. 9.1 fl (6.2-12.0); Monocyte# 1.16 X10^3/uL; Monocyte% 5.1 % (0-10); NRBC Flagged by Analyzer 0 % (0-5); Neutrophil # 20.49 X10^3/uL (2.7-7.7); Neutrophil % 89.5 % (47-70); POSITIVE DIFFERENTIAL YES; Platelet Count 203 K/mm3 (150-450); RBC Distribution Width CV 15.8 % (11.6-14.6); RBC Distribution Width SD 51.3 fl (35.1-43.9); Red Blood Count 3.28 M/mm3 (4.6-6.2); White Blood Count 22.9 K/mm3 (4.4-11.0)
--- NOTE | 2024-10-14 13:30 | RAD_ITS ---
EXAM: CHEST 1 VIEW (PORTABLE) CLINICAL HISTORY: Hypotension. Fever. COMPARISON: Comparison is made with prior study dated April 14, 2024. TECHNIQUE: AP portable examination was obtained. FINDINGS: EKG electrodes are seen. A right-sided port a catheter is seen with the tip at the junction of the superior vena cava and right atrium. Hyperinflation. The lungs are clear. Calcification of the aortic arch. Degenerative changes of the thoracic spine as well as both shoulders. RAD/Chest 1 View (Portable) IMPRESSION: No acute abnormality is seen. Reading Location: [place] [id number]
[2024-10-14 13:33] LABS: Differential Indicated SCAN CRITERIA MET
[2024-10-14 13:50] LABS: ALB/GLOB Ratio 0.6 RATIO (0.9-2.4); AST(SGOT) 52 U/L (15-37); Alanine Aminotransfer ALT/SGPT 58 U/L (16-61); Albumin, Serum 2.3 g/dL (3.2-5.0); Alkaline Phosphatase 271 U/L (45-117); Anion Gap 10 (5-15); BUN 49 mg/dL (7-18); BUN/Creat Ratio 17.2 RATIO (10-20); Calcium,Total 8.6 mg/dL (8.5-10.1); Chloride 107 mmol/L (98-107); Creatinine, Serum 2.85 mg/dL (0.70-1.30); EST Glomerular Filtration Rate 23 mL/min (>60); Est Glom Filt Rate - Afr Amer 27 mL/min (>60); Estimated Creatinine Clearance 18.33 ml/min; Globulin 3.9 g/dL (2.2-4.2); Glucose 137 mg/dL (74-106); Potassium 4.3 mmol/L (3.5-5.1); Protein, Total 6.2 g/dL (6.4-8.2); Sodium Level 135 mmol/L (136-145)
[2024-10-14 13:55] LABS: Differential Comment SCANNED
[2024-10-14 13:59] LABS: Lactic Acid 3.2 mmol/L (0.4-1.9)
[2024-10-14] MEDS: Piperacil/Tazobactam 3.375 GM in 0.9% Normal Saline (50mL MB+) 50 ML IV ×2 (14:27→21:56)
[2024-10-14 14:35] LABS: Color, Urine Yellow (Yellow); Glucose, Dipstick Normal (Normal); Ketone-Dipstick Negative (Negative); Leukocyte Esterase-Dipstick 500 /ul (Negative); Nitrite-Dipstick Negative (Negative); Occult Blood-Urine 50 /ul (Negative); Protein-Dipstick 30 mg/dl (Negative); Urine Bilirubin Dipstick Negative (Negative); Urine Clarity Cloudy (Clear); Urine Urobilinogen Normal (Normal)
[2024-10-14 14:41] LABS: International Normalized Ratio 0.9; Prothrombin Time (Protime)PT. 12.6 SECONDS (11.7-14.9)
[2024-10-14 14:48] LABS: Bacteria 4+ /hpf (None Seen); Red Blood Cells-Urine 5-10 SEEN /hpf (0-5); Renal Epithelial Cells 25-50 SEEN /hpf (0-5); Squamous Epithelial Cells - UA 0-5 SEEN /hpf (0-5); White Blood Cells 50-100 SEEN /hpf (0-5)
[2024-10-14 14:50] LABS: Mucous, Urine 1+ /hpf (<or=2+); Transitional Epithelial - Ur 0-5 SEEN /hpf (0-5)
--- NOTE | 2024-10-14 14:55 | PCM.HP.STD ---
HPI - General General Date of Admission: 10/14/24 Date of Service: 10/14/24 Chief Complaint: Altered mentation and hypotension HPI Narrative HOWIE MANZO, is a 84 M who presented to [facility] ED on 10/14/2024 with altered mentation and hypotension. Patient has history of dementia, stroke, overactive bladder and bowel cancer s/p colostomy and lives in a shelter. He had a urine sample taken at his facility on 10/11 that was consistent with UTI. He was started on Bactrim but had worsening symptoms with altered mentation and hypotension this morning, so they sent him in for further evaluation. Per ED physician, urine culture was growing gram-negative nicol that was resistant to Bactrim. In the ED, initial blood pressure was 83/61. He was otherwise afebrile with normal heart rate and good oxygen saturation on room air. Labs notable for WBC count 22.9, creatinine 2.85 (baseline around 1.0), BUN 49, bicarb 18, lactate 3.2, AST 52, alk phos 271. UA showed 500 leukocyte esterase, negative nitrites, 4+ bacteria. Chest x-ray was unremarkable. Renal/bladder ultrasound showed normal bladder with postvoid residual of 0 cc but did show moderate bilateral hydronephrosis and right kidney nephrolithiasis with 4 mm calculus. Given these findings, hospitalist was contacted for admission. I saw the patient at bedside in the ED. Patient was fatigued appearing but otherwise laying back comfortably in bed and in no acute distress. He was alert and oriented to person and place but not to time. He otherwise was answering most questions with short appropriate responses. He denied any fevers or chills. Denied any acute pain or discomfort. No other acute concerns. [facility] Medical History Acute UTI Syncope Near syncope Alcohol abuse GI bleed Non-smoker Stroke/cerebrovascular accident Vision loss of right eye Vision loss of left eye Hearing loss, left Hearing loss, right Chronic pain Kidney stones Kidney disease Myocardial infarct Chest pain Acute cerebrovascular accident (CVA) CVA (cerebral vascular accident) Vitamin D deficiency Chronic pain Cognitive impairment Frequent falls Smoker Fall History of echocardiogram Wears hearing aid Wears glasses Wears dentures Cancer Depression Anxiety Alcohol use Gait instability Ambulates with cane Arthritis High cholesterol Easy bruising Back pain Chewing tobacco nicotine dependence History of pain when walking History of stress test Cardiology follow-up encounter History of heart attack Colon cancer 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 Atherosclerosis of coronary artery of [place] heart without angina pectoris Essential (primary) hypertension 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 BPH (benign prostatic hyperplasia) HLD (hyperlipidemia) Home Medications ?Medication ?Instructions ?Recorded ?Last Taken ?Type finasteride 5 mg tablet (Proscar) 5 mg PO DAILY PROSTATE 01/27/18 01/05/24 History aspirin 81 mg tablet,delayed 81 mg PO DAILY HEART HEALTH 07/30/18 01/04/24 History release (Adult Low Dose Aspirin) tamsulosin 0.4 mg capsule 0.4 mg PO QHS PROSTATE 10/21/21 01/04/24 History nitroglycerin 0.4 mg sublingual 0.4 mg sublingual Q5M PRN CHEST 05/12/23 Unknown Rx tablet PAIN #25 tabs atorvastatin 10 mg tablet 10 mg PO QHS CHOLESTEROL 10/31/23 01/04/24 History bupropion HCl 150 mg tablet,12 hr 150 mg PO BID DEPRESSION 10/31/23 01/05/24 History sustained-release gabapentin 100 mg capsule 100 mg PO TID NEUROPATHY 11/14/23 01/05/24 History multivitamin (Daily Multi-Vitamin 1 tab PO DAILY 01/05/24 01/05/24 History tablet) acetaminophen 325 mg tablet 650 mg (2 x 325 mg) PO Q6H PRN PRN 04/18/24 Unknown Rx Pain 1-10 Or Fever #0 tabs sennosides 8.6 mg-docusate sodium 2 tab PO BID PRN PRN Constipation 04/18/24 Unknown Rx 50 mg tablet (Stimulant Laxative #0 tabs Plus) fluticasone propionate 50 1 spray intranasal DAILY PRN 10/14/24 Unknown History mcg/actuation nasal allergy symptoms spray,suspension (Allergy Relief (fluticasone)) lidocaine 4 % topical patch 1 patch topical Q12H 10/14/24 Unknown History (Aspercreme (lidocaine)) memantine 10 mg tablet 10 mg PO BID 10/14/24 Unknown History sulfamethoxazole 800 1 tab PO Q12H 10/14/24 Unknown History mg-trimethoprim 160 mg tablet Allergy/AdvReac Type Severity Reaction Status Date / Time No Known Allergies Allergy Verified 10/14/24 12:54 Family History Father Cancer skin cancer Mother Myocardial infarction Diabetes Other Fall Surgical History History of angioplasty History of colostomy History of left heart catheterization (02/24/02) H/O percutaneous transluminal coronary angioplasty (11/13/93) History of cystoscopy Hx of appendectomy History of inguinal hernia repair, bilateral Status post trigger finger release History of rotator cuff surgery Hx of colectomy Social History household members: none Smoking Status: Never smoker alcohol intake: current alcohol intake frequency: a few times a month Alcohol type: hard liquor substance use type: does not use caffeine: Yes Type: coffee Number of servings: 1 ROS Constitutional Constitutional: Reports fatigue and malaise; Denies chills, fever(s) or weakness Eyes Eyes: Denies change in vision Cardiovascular Cardiovascular: Denies chest pain Respiratory/Chest Respiratory/Chest: Denies shortness of breath at rest Gastrointestinal Gastrointestinal: Denies abdominal pain Genitourinary Genitourinary: Reports dysuria Musculoskeletal Musculoskeletal: Denies arthralgias or myalgias Vital Signs Vital Signs Vital Signs: 10/14/24 12:45 10/14/24 12:52 10/14/24 12:56 Temperature 97.5 F L 97.4 F L Temperature Source Oral Oral Pulse Rate 86 82 Respiratory Rate 17 16 Respiratory Effort Normal Respiratory Pattern Normal Blood Pressure 83/61 L 83/61 L Blood Pressure Mean 68 68 Pulse Ox 94 99 Oxygen Delivery Method Room Air Room Air Weight Weight: 70.2 kg Body Mass Index (BMI) 23.5 Physical Exam Const alert, no apparent distress and average body habitus Constitutional Narrative: Elderly male, alert and oriented x [address] but not time, fatigued appearing but otherwise laying back comfortably in bed and in no acute distress. General Appearance: cooperative and comfortable HEENT normocephalic, head/scalp atraumatic, hearing grossly normal bilaterally and nasal mucous membranes and turbinates normal HEENT Narrative: Dry mucous membranes. Eyes PERRL, EOMs intact bilaterally and conjunctivae normal Neck full ROM Chest inspection of chest normal Resp normal respiratory effort, normal air movement, no use of accessory muscles and clear to auscultation bilaterally Cardio regular rate, regular rhythm, no murmurs and peripheral pulses 2+ throughout GI normal to inspection, nondistended, normoactive bowel sounds, soft to palpation, non-tender and non-distended Back/Spine normal ROM Extremity normal to inspection and no pedal edema Skin no rashes or lesions noted Neuro moves all extremities and no focal motor deficits Speech: speech normal Results Lab / Micro Data 10/14/24 13:15 10/14/24 13:15 Labs: Laboratory Results - last 24 hr 10/14/24 13:15: WBC 22.9 H, RBC 3.28 L, Hgb 9.3 L, Hct 28.9 L, MCV 88.1, MCH 28.4, MCHC 32.2, RDW Std Deviation 51.3 H, RDW Coeff of Kathryn 15.8 H, Plt Count 203, MPV 9.1, Immature Gran % (Auto) 1.100 H, Neut % (Auto) 89.5 H, Lymph % (Auto) 3.4 L, [place] % (Auto) 5.1, Eos % (Auto) 0.5, Baso % (Auto) 0.4, Absolute Neuts (auto) 20.5 H, Absolute Lymphs (auto) 0.77 L, Nucleated RBC % 0, Differential Comment SCANNED, Sodium 135 L, Potassium 4.3, Chloride 107, Carbon Dioxide 18.0 L, Anion Gap 10, BUN 49 H, Creatinine 2.85 H, Estim Creat Clear Calc 18.33, Est GFR (MDRD) Af Amer 27 L, Est GFR (MDRD) Non-Af 23 L, BUN/Creatinine Ratio 17.2, Glucose 137 H, Lactic Acid 3.2 H*, Calcium 8.6, Total Bilirubin 0.40, AST 52 H, ALT 58, Alkaline Phosphatase 271 H, Total Protein 6.2 L, Albumin 2.3 L, Globulin 3.9, Albumin/Globulin Ratio 0.6 L 10/14/24 13:55: PT 12.6, INR 0.9 10/14/24 14:27: Urine Color Yellow, Urine Clarity Cloudy, Urine pH 6.0, Ur Specific [place] 1.010, Urine Protein 30 H, Urine Glucose (UA) Normal, Urine Ketones Negative, Urine Occult Blood 50 H, Urine Nitrite Negative, Urine Bilirubin Negative, Urine Urobilinogen Normal, Ur Leukocyte Esterase 500 H, Urine RBC 5-10 SEEN, Urine WBC 50-100 SEEN, Ur Squamous Epith Cells 0-5 SEEN, Ur Transition Epith Cell 0-5 SEEN, Ur Renal Epithelial Cell 25-50 SEEN, Urine Bacteria 4+, Urine Mucus 1+ Imaging Radiology Impression Chest X-Ray 10/14/24 13:30 IMPRESSION: No acute abnormality is seen. Reading Location: [facility] Assessment & Plan Assessment/Plan (1) Sepsis: (2) Acute UTI: (3) Acute kidney injury: PLAN: Plan Patient is an 84-year-old male who presented to [facility] ED on 10/14/2024 with altered mentation and hypotension. 1. Sepsis secondary to UTI ? Admit under inpatient status to ICU. Investment Strategist consulted. Met sepsis criteria on admit with SBP less than 90, lactate greater than 2, creatinine greater than 2 and altered mentation. Suspected secondary to UTI given abnormal UA and history of BPH with hydronephrosis as noted below. Given 3 L IV fluids total in the ED which is slightly more than 30 cc/kg and blood pressure remained in the 90s systolic, but patient appears stable and heart rate stable in the 70s to 80s. Urine culture results not available here but reportedly was gram-negative nicol with sensitivity to Zosyn. Repeat urine culture ordered here. Will treat with IV Zosyn for now. 2. TORRIE ? Creatinine 2.85 on admit, baseline around 1.0. Suspect primarily prerenal due to sepsis but cannot rule out some degree of postobstructive due to BPH. Renal ultrasound showed no urine in the bladder but did show moderate bilateral hydronephrosis as noted below. Urine sodium and creatinine ordered. Given IV fluids in the ED as noted above. Follow-up a.m. BMP and monitor urine output. Can consider nephrology consult as needed. 3. Moderate bilateral hydronephrosis with history of BPH with obstructive symptoms, right-sided nephrolithiasis ? Urology consulted. Renal ultrasound showed moderate bilateral hydronephrosis and right-sided nephrolithiasis with 4 mm stone. Unclear if hydronephrosis is related to UTI or possibly chronic in nature. Appreciate urology recommendations. Okay to continue home Flomax and finasteride. 4. Acute metabolic encephalopathy ? Patient alert and oriented x [address] in the ED. Was answering most questions with short verbal responses. Suspect he is not too far from his baseline but his baseline is unclear to me. Continue to monitor and avoid sedating medications as able. 5. Chronic debility with dementia ? Patient lives at shelter and has some degree of dementia at baseline. Likely plan will be to return to shelter on discharge. Continue home memantine. Chronic medical conditions: ? Chronic anemia: Hemoglobin 9.2 on admit, baseline around 9-10. Follow-up a.m. CBC. ? History of colon cancer s/p colostomy: Normal-appearing ostomy output noted in the ED. ? Depression: Continue home bupropion. ? Neuropathy: Continue home low-dose gabapentin. DVT prophylaxis: Heparin subcu CODE STATUS: DNR CCA, okay to intubate Expected disposition: TBD Total clinical time spent by myself addressing the patient's medical issues, reviewing all the data, and collaborating with patient's care team: 75 minutes. Sepsis Attestation Sepsis Organ Dysfunction Criteria Present: SBP < 90 mmHg or MAP < 65 mmHg, Creatinine > 2.0 mg/dL, Lactic Acid > 2 mmol/L and New/Unexplained change in mental status Charges/Coding Visit Charges Inpatient E&M: 38017 Init Hosp L3
--- NOTE | 2024-10-14 15:11 | US_ITS ---
PROCEDURE: KIDNEY AND BLADDER REASON FOR EXAM: TORRIE; UTI. TECHNIQUE: Bilateral renal ultrasound. COMPARISON: None. FINDINGS: Normal renal sizes, parenchymal thicknesses, and echotextures. Moderate bilateral hydronephrosis. Right kidney interpolar 2.5 cm and inferior pole 1.2 cm simple cysts. Left kidney interpolar 1.1 cm and upper pole 2.5 cm simple cysts. Right kidney 4 mm calculus. RIGHT Kidney Size: 11.6 x 6.1 x 6.7 cm. Cortical Thickness (if discernible): 1.7 (>6mm is normal) LEFT Kidney Size: 11.1 x 5.3 x 5.7 Cortical Thickness (if discernible): 1.6 (>6mm is normal) Urinary bladder volume measures 20 cc. Postvoid volume measures 0 cc. Bilateral ureteral jets are not visualized. US/Kidney and Bladder IMPRESSION: Moderate bilateral hydronephrosis. Right kidney nephrolithiasis. Bilateral kidney simple cysts. Reading Location: [id number]
[2024-10-14 16:22] LABS: Urine Sodium 20 mmol/L (Not Establ.)
[2024-10-14 17:21] LABS: Reflex Lactate? Y
[2024-10-14 18:31] LABS: Lactic Acid 1.2 mmol/L (0.4-1.9)
--- NOTE | 2024-10-14 20:11 | PCM.CONS.U ---
Assessment & Plan Assessment/Plan (1) Acute kidney injury: (2) Acute hypotension: (3) Acute UTI: (4) Leukocytosis: (5) Sepsis: PLAN: will order CT scan abd/pelvis to evaluate, may need nephrostomy tube placed? HPI Consult Data Date of Consult: 10/14/24 HPI Narrative Reason for Consultation: sepsis, hydronephrosis HPI Narrative: HOWIE MANZO, is a 84 M who presents to hospital this afternoon with symptoms of sepsis WBC high, cr elevated has hydroenphrosis, u/s only no other imaging available to me. so I I think we need to get a CT scan abd/pelvis without contrast to evaluate the source of hydronephrosis pt. blood pressure is very low and unstable so to low to undergo anesthesia for any urologic procedures, he might need nephrostomy tube.will see what his cT scan show in am for now will order ct. [facility] Medical History Acute UTI Syncope Near syncope Alcohol abuse GI bleed Non-smoker Stroke/cerebrovascular accident Vision loss of right eye Vision loss of left eye Hearing loss, left Hearing loss, right Chronic pain Kidney stones Kidney disease Myocardial infarct Chest pain Acute cerebrovascular accident (CVA) CVA (cerebral vascular accident) Vitamin D deficiency Chronic pain Cognitive impairment Frequent falls Smoker Fall History of echocardiogram Wears hearing aid Wears glasses Wears dentures Cancer Depression Anxiety Alcohol use Gait instability Ambulates with cane Arthritis High cholesterol Easy bruising Back pain Chewing tobacco nicotine dependence History of pain when walking History of stress test Cardiology follow-up encounter History of heart attack Colon cancer 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 Atherosclerosis of coronary artery of [place] heart without angina pectoris Essential (primary) hypertension 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 BPH (benign prostatic hyperplasia) HLD (hyperlipidemia) Home Medications ?Medication ?Instructions ?Recorded ?Last Taken ?Type finasteride 5 mg tablet (Proscar) 5 mg PO DAILY PROSTATE 01/27/18 01/05/24 History aspirin 81 mg tablet,delayed 81 mg PO DAILY HEART HEALTH 07/30/18 01/04/24 History release (Adult Low Dose Aspirin) tamsulosin 0.4 mg capsule 0.4 mg PO QHS PROSTATE 10/21/21 01/04/24 History nitroglycerin 0.4 mg sublingual 0.4 mg sublingual Q5M PRN CHEST 08/28/23 Unknown Rx tablet PAIN #25 tabs atorvastatin 10 mg tablet 10 mg PO QHS CHOLESTEROL 10/31/23 01/04/24 History bupropion HCl 150 mg tablet,12 hr 150 mg PO BID DEPRESSION 10/31/23 01/05/24 History sustained-release gabapentin 100 mg capsule 100 mg PO TID NEUROPATHY 11/14/23 01/05/24 History multivitamin (Daily Multi-Vitamin 1 tab PO DAILY 01/05/24 01/05/24 History tablet) acetaminophen 325 mg tablet 650 mg (2 x 325 mg) PO Q6H PRN PRN 04/18/24 Unknown Rx Pain 1-10 Or Fever #0 tabs sennosides 8.6 mg-docusate sodium 2 tab PO BID PRN PRN Constipation 04/18/24 Unknown Rx 50 mg tablet (Stimulant Laxative #0 tabs Plus) fluticasone propionate 50 1 spray intranasal DAILY PRN 10/14/24 Unknown History mcg/actuation nasal allergy symptoms spray,suspension (Allergy Relief (fluticasone)) lidocaine 4 % topical patch 1 patch topical Q12H pain 10/14/24 Unknown History (Aspercreme (lidocaine)) loratadine 10 mg tablet (Allergy 10 mg PO DAILY allergy 10/14/24 Unknown History Relief (loratadine)) memantine 10 mg tablet 10 mg PO BID 10/14/24 Unknown History sulfamethoxazole 800 1 tab PO Q12H 10/14/24 Unknown History mg-trimethoprim 160 mg tablet Allergy/AdvReac Type Severity Reaction Status Date / Time No Known Allergies Allergy Verified 10/14/24 12:54 Family History Father Cancer skin cancer Mother Myocardial infarction Diabetes Other Fall Surgical History History of angioplasty History of colostomy History of left heart catheterization (02/24/02) H/O percutaneous transluminal coronary angioplasty (11/13/93) History of cystoscopy Hx of appendectomy History of inguinal hernia repair, bilateral Status post trigger finger release History of rotator cuff surgery Hx of colectomy Social History household members: none Smoking Status: Never smoker alcohol intake: current alcohol intake frequency: a few times a month Alcohol type: hard liquor substance use type: does not use caffeine: Yes Type: coffee Number of servings: 1 Medical Records Data Attestation: I reviewed the patient's medical records Lab / Micro Data 10/14/24 13:15 10/14/24 13:15 Labs: Laboratory Results - last 24 hr 10/14/24 13:15: WBC 22.9 H, RBC 3.28 L, Hgb 9.3 L, Hct 28.9 L, MCV 88.1, MCH 28.4, MCHC 32.2, RDW Std Deviation 51.3 H, RDW Coeff of Kathryn 15.8 H, Plt Count 203, MPV 9.1, Immature Gran % (Auto) 1.100 H, Neut % (Auto) 89.5 H, Lymph % (Auto) 3.4 L, [place] % (Auto) 5.1, Eos % (Auto) 0.5, Baso % (Auto) 0.4, Absolute Neuts (auto) 20.5 H, Absolute Lymphs (auto) 0.77 L, Nucleated RBC % 0, Differential Comment SCANNED, Sodium 135 L, Potassium 4.3, Chloride 107, Carbon Dioxide 18.0 L, Anion Gap 10, BUN 49 H, Creatinine 2.85 H, Estim Creat Clear Calc 18.33, Est GFR (MDRD) Af Amer 27 L, Est GFR (MDRD) Non-Af 23 L, BUN/Creatinine Ratio 17.2, Glucose 137 H, Lactic Acid 3.2 H*, Calcium 8.6, Total Bilirubin 0.40, AST 52 H, ALT 58, Alkaline Phosphatase 271 H, Total Protein 6.2 L, Albumin 2.3 L, Globulin 3.9, Albumin/Globulin Ratio 0.6 L 10/14/24 13:55: PT 12.6, INR 0.9 10/14/24 14:27: Urine Color Yellow, Urine Clarity Cloudy, Urine pH 6.0, Ur Specific [place] 1.010, Urine Protein 30 H, Urine Glucose (UA) Normal, Urine Ketones Negative, Urine Occult Blood 50 H, Urine Nitrite Negative, Urine Bilirubin Negative, Urine Urobilinogen Normal, Ur Leukocyte Esterase 500 H, Urine RBC 5-10 SEEN, Urine WBC 50-100 SEEN, Ur Squamous Epith Cells 0-5 SEEN, Ur Transition Epith Cell 0-5 SEEN, Ur Renal Epithelial Cell 25-50 SEEN, Urine Bacteria 4+, Urine Mucus 1+, Ur Random Sodium 20, Urine Creatinine 43.30 10/14/24 17:55: Lactic Acid 1.2 Imaging Radiology Impression Chest X-Ray 10/14/24 13:30 IMPRESSION: No acute abnormality is seen. Reading Location: [facility] Renal Ultrasound 10/14/24 15:11 IMPRESSION: Moderate bilateral hydronephrosis. Right kidney nephrolithiasis. Bilateral kidney simple cysts. Reading Location: [id number]
[2024-10-14] MEDS: Norepinephrine 8 MG in 0.9% Normal Saline (250mL Bag) 242 ML 9.4 MG CONT INF (20:12)
[2024-10-14] MEDS: Heparin Injection (Vial) 5,000 UNIT/ML VIAL 5000 UNIT SC (20:20)
[2024-10-14] MEDS: Gabapentin 100 MG Capsule PO (20:22)
[2024-10-14] MEDS: Memantine Hydrochloride 10 MG Tablet PO (20:22)
[2024-10-14] MEDS: Atorvastatin Calcium 10 MG Tablet PO (20:22)
[2024-10-14] MEDS: buPROPion (SR) 150 MG Tablet.SA PO (20:22)
[2024-10-14] MEDS: Tamsulosin HCl 0.4 MG Capsule PO (20:22)
--- NOTE | 2024-10-14 20:42 | CT_ITS ---
PROCEDURE: ABDOMEN/PELVIS WITHOUT CONT REASON FOR EXAM: Hydronephrosis; sepsis. TECHNIQUE: Abdomen and pelvis CT with intravenous contrast. IV CONTRAST: COMPARISON: None. FINDINGS: Lung bases: Clear Liver: Punctate calcifications likely representing prior granulomatous infection. Gallbladder: Contracted. Spleen: Punctate calcifications likely representing prior granulomatous infection. Pancreas: Unremarkable. Adrenals: Unremarkable. Kidneys: Moderate bilateral hydroureteronephrosis without a visualized obstructing calculus. Bilateral kidney cysts. Punctate bilateral renal calculi. Bladder: Unremarkable. Reproductive Organs: Prostatomegaly. Bowel: Unremarkable. Appendix: Normal. Lymph nodes: No suspicious lymph node enlargement. Vasculature: Major vascular structures are unremarkable. Peritoneum / Retroperitoneum: Presacral soft tissue density and suture. Bones: Unremarkable. Left anterior fat and bowel containing ventral hernia. No evidence of bowel obstruction. Diastasis recti. Prior ventral hernia repair. CT/Abdomen/Pelvis without Cont IMPRESSION: Left hemiabdomen fat and bowel containing ventral hernia without evidence of nelly wel obstruction. Diastasis recti. Moderate bilateral hydroureteronephrosis without a visualized obstructive calcu tawanna. Punctate bilateral nephrolithiasis. Presacral soft tissue density and fat stranding. This may represent a mass, pr ior radiation or prior insult. Correlate with clinical history. Prostatomegaly. One or more dose reduction techniques were used (e.g., Automated exposure contr ol, adjustment of the mA and/or kV according to patient size, use of iterative reconstruction technique). Reading Location: [id number]
[2024-10-14] MEDS: 0.9% Normal Saline (100mL Bag) 100 ML 15 ML IV (21:56)
[2024-10-15] VITALS (32 sets, daily range): BP systolic 78–132; BP diastolic 50–95; PULSE 70–97; RESP 14–21; O2SAT 94–99; BMI 23.8
[2024-10-15] MEDS: Gabapentin 100 MG Capsule PO ×3 (05:29→21:27)
[2024-10-15 06:00] LABS: Hematocrit 32.2 % (40-54); Hemoglobin 10.4 g/dL (13.0-16.5); Mean Corp Hgb Conc 32.3 g/dL (32-36); Mean Corpuscular Hgb 28.4 pg (27.0-32.0); Platelet Count 234 K/mm3 (150-450); RBC Distribution Width CV 15.9 % (11.6-14.6); RBC Distribution Width SD 51.4 fl (35.1-43.9); Red Blood Count 3.66 M/mm3 (4.6-6.2); White Blood Count 17.7 K/mm3 (4.4-11.0)
[2024-10-15 06:14] LABS: Anion Gap 7 (5-15); BUN 42 mg/dL (7-18); BUN/Creat Ratio 18.7 RATIO (10-20); Calcium,Total 8.6 mg/dL (8.5-10.1); Chloride 117 mmol/L (98-107); Creatinine, Serum 2.25 mg/dL (0.70-1.30); EST Glomerular Filtration Rate 30 mL/min (>60); Est Glom Filt Rate - Afr Amer 36 mL/min (>60); Estimated Creatinine Clearance 22.44 ml/min; Glucose 127 mg/dL (74-106); Potassium 4.3 mmol/L (3.5-5.1); Sodium Level 143 mmol/L (136-145)
--- NOTE | 2024-10-15 07:17 | PCM.PN.GU ---
Subjective Subjective 84-year-old male blood pressure is better in the ICU but he is on pressors, CT scan reviewed he is got bilateral hydro but no source of obstruction he does look he is in retention of urine so can have the nurses placed a Travis catheter. Will continue to monitor I do not see any surgical intervention at this point is necessary continue with cultures pressure support and will continue to follow. Objective Data Objective Data Vital Signs: Vital Signs Temp Pulse Resp BP Pulse Ox O2 Del Method 97.1 F L 79 15 116/67 99 Room Air 10/14/24 18:00 10/15/24 07:00 10/15/24 07:00 10/15/24 07:00 10/15/24 07:00 10/15/24 07:00 Oxygen Delivery Method Room Air Weight: 68.9 kg Body Mass Index (BMI) 23.8 Intake & Output: Intake and Output for Last 24 Hours 10/13/24 10/14/24 10/15/24 23:59 23:59 23:59 Intake Total 3486.27 / 3495.67 125.2 / 125.2 Output Total 1200 / 1200 Balance 3486.27 / 3495.67 -1074.8 / -1074.8 Lab / Micro Data 10/15/24 05:41 10/15/24 05:41 Labs: Laboratory Results - last 24 hr 10/14/24 13:15: WBC 22.9 H, RBC 3.28 L, Hgb 9.3 L, Hct 28.9 L, MCV 88.1, MCH 28.4, MCHC 32.2, RDW Std Deviation 51.3 H, RDW Coeff of Kathryn 15.8 H, Plt Count 203, MPV 9.1, Immature Gran % (Auto) 1.100 H, Neut % (Auto) 89.5 H, Lymph % (Auto) 3.4 L, Stanley % (Auto) 5.1, Eos % (Auto) 0.5, Baso % (Auto) 0.4, Absolute Neuts (auto) 20.5 H, Absolute Lymphs (auto) 0.77 L, Nucleated RBC % 0, Differential Comment SCANNED, Sodium 135 L, Potassium 4.3, Chloride 107, Carbon Dioxide 18.0 L, Anion Gap 10, BUN 49 H, Creatinine 2.85 H, Estim Creat Clear Calc 18.33, Est GFR (MDRD) Af Amer 27 L, Est GFR (MDRD) Non-Af 23 L, BUN/Creatinine Ratio 17.2, Glucose 137 H, Lactic Acid 3.2 H*, Calcium 8.6, Total Bilirubin 0.40, AST 52 H, ALT 58, Alkaline Phosphatase 271 H, Total Protein 6.2 L, Albumin 2.3 L, Globulin 3.9, Albumin/Globulin Ratio 0.6 L 10/14/24 13:55: PT 12.6, INR 0.9 10/14/24 14:27: Urine Color Yellow, Urine Clarity Cloudy, Urine pH 6.0, Ur Specific [place] 1.010, Urine Protein 30 H, Urine Glucose (UA) Normal, Urine Ketones Negative, Urine Occult Blood 50 H, Urine Nitrite Negative, Urine Bilirubin Negative, Urine Urobilinogen Normal, Ur Leukocyte Esterase 500 H, Urine RBC 5-10 SEEN, Urine WBC 50-100 SEEN, Ur Squamous Epith Cells 0-5 SEEN, Ur Transition Epith Cell 0-5 SEEN, Ur Renal Epithelial Cell 25-50 SEEN, Urine Bacteria 4+, Urine Mucus 1+, Ur Random Sodium 20, Urine Creatinine 43.30 10/14/24 17:55: Lactic Acid 1.2 10/15/24 05:41: WBC 17.7 H, RBC 3.66 L, Hgb 10.4 L, Hct 32.2 L, MCV 88.0, MCH 28.4, MCHC 32.3, RDW Std Deviation 51.4 H, RDW Coeff of Kathryn 15.9 H, Plt Count 234, MPV 9.0, Sodium 143, Potassium 4.3, Chloride 117 H, Carbon Dioxide 19.0 L, Anion Gap 7, BUN 42 H, Creatinine 2.25 H, Estim Creat Clear Calc 22.44, Est GFR (MDRD) Af Amer 36 L, Est GFR (MDRD) Non-Af 30 L, BUN/Creatinine Ratio 18.7, Glucose 127 H, Calcium 8.6 Radiography Diagnostic Testing: Radiology Impression Chest X-Ray 10/14/24 13:30 IMPRESSION: No acute abnormality is seen. Reading Location: [facility] Renal Ultrasound 10/14/24 15:11 IMPRESSION: Moderate bilateral hydronephrosis. Right kidney nephrolithiasis. Bilateral kidney simple cysts. Reading Location: [facility] Abdomen/Pelvis CT 10/14/24 20:42 IMPRESSION: Left hemiabdomen fat and bowel containing ventral hernia without evidence of bowel obstruction. Diastasis recti. Moderate bilateral hydroureteronephrosis without a visualized obstructive calculus. Punctate bilateral nephrolithiasis. Presacral soft tissue density and fat stranding. This may represent a mass, prior radiation or prior insult. Correlate with clinical history. Prostatomegaly. One or more dose reduction techniques were used (e.g., Automated exposure control, adjustment of the mA and/or kV according to patient size, use of iterative reconstruction technique). Reading Location: [facility]
--- NOTE | 2024-10-15 07:25 | EX.PCM.CONCC ---
Assessment & Plan Assessment/Plan (1) Septic shock: (2) Acute kidney injury: (3) Acute hypotension: (4) Frequent falls: PLAN: Plan RECOMMENDATIONS: 1. Continue to wean Levophed to maintain mean arterial pressure at or above 65 mmHg. 2. Continue empiric antibiotics as ordered. 3. Continue appropriate DVT prophylaxis. 4. Encourage incentive spirometer use and mobilize patient as tolerated. 5. PT/OT evaluations once medically stable. 6. Urology is following to assist with medical management. IMPRESSIONS: 1. Gram-negative septic shock The patient presented to the hospital with sepsis due to suspected genitourinary tract source of infection with acute sepsis related organ dysfunction as evidenced by fluid refractory hypotension requiring vasopressor support, lactic acidemia and acute kidney injury. The patient received supplemental IV fluid hydration and was ultimately placed on Levophed, which will be weaned to maintain a mean arterial pressure at or above 65 mmHg. The patient does have a history of ESBL E. coli, which was sensitive to Zosyn in the past. Given the hydronephrosis noted on CT imaging, urology is following to assist with medical management. 2. Acute kidney injury Most likely prerenal in etiology and related to presenting septic shock. Agree with placement of Travis catheter today. The patient has been volume resuscitated and remains on low-dose Levophed to maintain hemodynamic stability. Continue to monitor urine output. No current indication for renal replacement therapy. 3. History of dementia with chronic debility/history of colon cancer status post ostomy/depression/anemia Complicates care, management, recovery and prognosis. Continue supportive measures as noted above. Recommend physical therapy evaluation. TIME: 35 minutes of critical care time, independent of procedures, was spent addressing the patient's gram-negative septic shock, acute kidney injury, review of all data and collaboration with the care team. HPI Consult Data Date of Consult: 10/15/24 HPI Narrative Reason for Consultation: Sepsis HPI Narrative: The patient is an 84-year-old male, with a history as outlined below, who presented to the emergency department on October 14 with generalized weakness and altered mentation. The patient has a known history of prior CVA, and bowel cancer status post colostomy. The patient reported ongoing weakness and frequent falls. He did report increased urinary frequency, but denied any dysuria or abdominal pain. On presentation to the emergency department, the patient was documented to be afebrile but was hypotensive with multiple blood pressure readings less than 90 mmHg systolic. Laboratory evaluation was notable for a white blood cell count of 23,000. Hemoglobin and platelet count were stable. Chemistry profile was notable for a bicarbonate of 18, BUN of 49 and creatinine of 2.85. Lactate was elevated at 3.2. Urine analysis was positive for leukocyte esterase and 4+ urine bacteria. Chest x-ray was unremarkable. Renal ultrasound demonstrated moderate bilateral hydronephrosis. CT abdomen/pelvis demonstrated bilateral hydroureter without evidence of obstructive calculus. The patient was seen in consultation by urology, who recommended ongoing medical care and placement of Travis catheter. The patient received supplemental IV fluid hydration and was initiated on antimicrobial therapy. Ultimately, due to fluid refractory hypotension, the patient was started on low-dose Levophed. He was subsequently admitted to the medical intensive care unit for further management. [facility] Medical History Acute UTI Syncope Near syncope Alcohol abuse GI bleed Non-smoker Stroke/cerebrovascular accident Vision loss of right eye Vision loss of left eye Hearing loss, left Hearing loss, right Chronic pain Kidney stones Kidney disease Myocardial infarct Chest pain Acute cerebrovascular accident (CVA) CVA (cerebral vascular accident) Vitamin D deficiency Chronic pain Cognitive impairment Frequent falls Smoker Fall History of echocardiogram Wears hearing aid Wears glasses Wears dentures Cancer Depression Anxiety Alcohol use Gait instability Ambulates with cane Arthritis High cholesterol Easy bruising Back pain Chewing tobacco nicotine dependence History of pain when walking History of stress test Cardiology follow-up encounter History of heart attack Colon cancer 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 Atherosclerosis of coronary artery of [place] heart without angina pectoris Essential (primary) hypertension 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 BPH (benign prostatic hyperplasia) HLD (hyperlipidemia) Home Medications ?Medication ?Instructions ?Recorded ?Last Taken ?Type finasteride 5 mg tablet (Proscar) 5 mg PO DAILY PROSTATE 01/27/18 01/05/24 History aspirin 81 mg tablet,delayed 81 mg PO DAILY HEART HEALTH 07/30/18 01/04/24 History release (Adult Low Dose Aspirin) tamsulosin 0.4 mg capsule 0.4 mg PO QHS PROSTATE 10/21/21 01/04/24 History nitroglycerin 0.4 mg sublingual 0.4 mg sublingual Q5M PRN CHEST 05/12/23 Unknown Rx tablet PAIN #25 tabs atorvastatin 10 mg tablet 10 mg PO QHS CHOLESTEROL 10/31/23 01/04/24 History bupropion HCl 150 mg tablet,12 hr 150 mg PO BID DEPRESSION 10/31/23 01/05/24 History sustained-release gabapentin 100 mg capsule 100 mg PO TID NEUROPATHY 11/14/23 01/05/24 History multivitamin (Daily Multi-Vitamin 1 tab PO DAILY 01/05/24 01/05/24 History tablet) acetaminophen 325 mg tablet 650 mg (2 x 325 mg) PO Q6H PRN PRN 04/18/24 Unknown Rx Pain 1-10 Or Fever #0 tabs sennosides 8.6 mg-docusate sodium 2 tab PO BID PRN PRN Constipation 04/18/24 Unknown Rx 50 mg tablet (Stimulant Laxative #0 tabs Plus) fluticasone propionate 50 1 spray intranasal DAILY PRN 10/14/24 Unknown History mcg/actuation nasal allergy symptoms spray,suspension (Allergy Relief (fluticasone)) lidocaine 4 % topical patch 1 patch topical Q12H pain 10/14/24 Unknown History (Aspercreme (lidocaine)) loratadine 10 mg tablet (Allergy 10 mg PO DAILY allergy 10/14/24 Unknown History Relief (loratadine)) memantine 10 mg tablet 10 mg PO BID 10/14/24 Unknown History sulfamethoxazole 800 1 tab PO Q12H 10/14/24 Unknown History mg-trimethoprim 160 mg tablet Allergy/AdvReac Type Severity Reaction Status Date / Time No Known Allergies Allergy Verified 10/14/24 12:54 Family History Father Cancer skin cancer Mother Myocardial infarction Diabetes Other Fall Surgical History History of angioplasty History of colostomy History of left heart catheterization (02/24/02) H/O percutaneous transluminal coronary angioplasty (11/13/93) History of cystoscopy Hx of appendectomy History of inguinal hernia repair, bilateral Status post trigger finger release History of rotator cuff surgery Hx of colectomy Social History household members: none Smoking Status: Never smoker alcohol intake: current alcohol intake frequency: a few times a month Alcohol type: hard liquor substance use type: does not use caffeine: Yes Type: coffee Number of servings: 1 ROS ROS Narrative 10 systems were reviewed with pertinent positives as noted in the HPI above. Physical Exam Const alert, oriented x3 and no apparent distress General Appearance: cooperative HEENT normocephalic and head/scalp atraumatic Eyes PERRL, EOMs intact bilaterally and conjunctivae normal Neck supple General: trachea midline Chest inspection of chest normal Resp normal respiratory effort Auscultation: Negative for rales, rhonchi or wheezes Cardio regular rate and regular rhythm GI soft to palpation and non-tender Inspection: ostomy present Extremity no clubbing, cyanosis or edema Skin no rashes or lesions noted Neuro CN's II-XII intact bilaterally, moves all extremities and no focal motor deficits Psych cooperative and affect normal Lab / Micro Data 10/15/24 05:41 10/15/24 05:41 Labs: Laboratory Results - last 24 hr 10/14/24 13:15: WBC 22.9 H, RBC 3.28 L, Hgb 9.3 L, Hct 28.9 L, MCV 88.1, MCH 28.4, MCHC 32.2, RDW Std Deviation 51.3 H, RDW Coeff of Kathryn 15.8 H, Plt Count 203, MPV 9.1, Immature Gran % (Auto) 1.100 H, Neut % (Auto) 89.5 H, Lymph % (Auto) 3.4 L, Bibb % (Auto) 5.1, Eos % (Auto) 0.5, Baso % (Auto) 0.4, Absolute Neuts (auto) 20.5 H, Absolute Lymphs (auto) 0.77 L, Nucleated RBC % 0, Differential Comment SCANNED, Sodium 135 L, Potassium 4.3, Chloride 107, Carbon Dioxide 18.0 L, Anion Gap 10, BUN 49 H, Creatinine 2.85 H, Estim Creat Clear Calc 18.33, Est GFR (MDRD) Af Amer 27 L, Est GFR (MDRD) Non-Af 23 L, BUN/Creatinine Ratio 17.2, Glucose 137 H, Lactic Acid 3.2 H*, Calcium 8.6, Total Bilirubin 0.40, AST 52 H, ALT 58, Alkaline Phosphatase 271 H, Total Protein 6.2 L, Albumin 2.3 L, Globulin 3.9, Albumin/Globulin Ratio 0.6 L 10/14/24 13:55: PT 12.6, INR 0.9 10/14/24 14:27: Urine Color Yellow, Urine Clarity Cloudy, Urine pH 6.0, Ur Specific [place] 1.010, Urine Protein 30 H, Urine Glucose (UA) Normal, Urine Ketones Negative, Urine Occult Blood 50 H, Urine Nitrite Negative, Urine Bilirubin Negative, Urine Urobilinogen Normal, Ur Leukocyte Esterase 500 H, Urine RBC 5-10 SEEN, Urine WBC 50-100 SEEN, Ur Squamous Epith Cells 0-5 SEEN, Ur Transition Epith Cell 0-5 SEEN, Ur Renal Epithelial Cell 25-50 SEEN, Urine Bacteria 4+, Urine Mucus 1+, Ur Random Sodium 20, Urine Creatinine 43.30 10/14/24 17:55: Lactic Acid 1.2 10/15/24 05:41: WBC 17.7 H, RBC 3.66 L, Hgb 10.4 L, Hct 32.2 L, MCV 88.0, MCH 28.4, MCHC 32.3, RDW Std Deviation 51.4 H, RDW Coeff of Kathryn 15.9 H, Plt Count 234, MPV 9.0, Sodium 143, Potassium 4.3, Chloride 117 H, Carbon Dioxide 19.0 L, Anion Gap 7, BUN 42 H, Creatinine 2.25 H, Estim Creat Clear Calc 22.44, Est GFR (MDRD) Af Amer 36 L, Est GFR (MDRD) Non-Af 30 L, BUN/Creatinine Ratio 18.7, Glucose 127 H, Calcium 8.6 Imaging Radiology Impression Chest X-Ray 10/14/24 13:30 IMPRESSION: No acute abnormality is seen. Reading Location: [facility]-1 Renal Ultrasound 10/14/24 15:11 IMPRESSION: Moderate bilateral hydronephrosis. Right kidney nephrolithiasis. Bilateral kidney simple cysts. Reading Location: [facility] Abdomen/Pelvis CT 10/14/24 20:42 IMPRESSION: Left hemiabdomen fat and bowel containing ventral hernia without evidence of bowel obstruction. Diastasis recti. Moderate bilateral hydroureteronephrosis without a visualized obstructive calculus. Punctate bilateral nephrolithiasis. Presacral soft tissue density and fat stranding. This may represent a mass, prior radiation or prior insult. Correlate with clinical history. Prostatomegaly. One or more dose reduction techniques were used (e.g., Automated exposure control, adjustment of the mA and/or kV according to patient size, use of iterative reconstruction technique). Reading Location: [id number] Charges/Coding Procedures Hospitalists Procedures: 75268 Critical Care 1st Hr
[2024-10-15] MEDS: Piperacil/Tazobactam 3.375 GM in 0.9% Normal Saline (50mL MB+) 50 ML IV (08:24)
[2024-10-15] MEDS: Aspirin E.C. 81 MG Tablet PO (08:25)
[2024-10-15] MEDS: buPROPion (SR) 150 MG Tablet.SA PO ×2 (08:25→21:28)
[2024-10-15] MEDS: Acetaminophen 325 MG Tablet 650 MG PO ×2 (08:25→14:45)
[2024-10-15] MEDS: Memantine Hydrochloride 10 MG Tablet PO ×2 (08:26→21:29)
[2024-10-15] MEDS: Finasteride 5 MG Tablet PO (08:26)
[2024-10-15] MEDS: 0.9% Normal Saline (100mL Bag) 100 ML 15 ML IV (08:28)
--- NOTE | 2024-10-15 10:19 | CASEMGMT ---
Social Work SW is admitted from [facility] [place]. SW met with pt and introduced self and role of SW. Pt confirms that he lives at [facility] [place]] and that he plans to return there upon discharge. Phone call to pt greg Salinas who also confirms plans to return to [facility]. Pt is currently at [facility] [place]Note [facility] private pay senior care care. Clinical updates sent to [facility] [place]Note [facility]] and they can accept pt back. Green sheet placed on chart to facilitate weekend discharge if pt is ready. Plan: Return to [facility], when medically ready HERIBERTO Boateng
--- NOTE | 2024-10-15 13:53 | PN.HOSP_ITS ---
Reason for Visit Reason for Visit: Diagnoses Sepsis, unspecified organism (10/14/24) Elevated white blood cell count, unspecified (10/14/24) Hypotension, unspecified (10/14/24) Acute kidney failure, unspecified (10/14/24) Urinary tract infection, site not specified (10/14/24) Repeated falls (10/14/24) Severe sepsis with septic shock (10/14/24) Subjective Subjective Patient was seen and examined today, he voices no complaints of any fever or chills. I talked to urology they do not feel the patient needs a urological procedure they recommend the Travis catheter be kept in, they feel he has BPH. Objective Data Objective Data Vital Signs: Vital Signs Temp Pulse Resp BP Pulse Ox O2 Del Method 97.1 F L 78 18 113/69 98 Room Air 10/14/24 18:00 10/15/24 12:00 10/15/24 12:00 10/15/24 12:00 10/15/24 12:00 10/15/24 12:00 Oxygen Delivery Method Room Air Weight: 68.9 kg Body Mass Index (BMI) 23.8 Intake & Output: Intake and Output for Last 24 Hours 10/13/24 10/14/24 10/15/24 23:59 23:59 23:59 Intake Total 3486.27 / 3495.67 217.50 / 217.50 Output Total 1200 / 1200 Balance 3486.27 / 3495.67 -982.50 / -982.50 Lab / Micro Data 10/15/24 05:41 10/15/24 05:41 Labs: Laboratory Results - last 24 hr 10/14/24 13:15: Differential Comment SCANNED, Lactic Acid 3.2 H* 10/14/24 13:55: PT 12.6, INR 0.9 10/14/24 14:27: Urine Color Yellow, Urine Clarity Cloudy, Urine pH 6.0, Ur Specific [place] 1.010, Urine Protein 30 H, Urine Glucose (UA) Normal, Urine Ketones Negative, Urine Occult Blood 50 H, Urine Nitrite Negative, Urine Bilirubin Negative, Urine Urobilinogen Normal, Ur Leukocyte Esterase 500 H, Urine RBC 5-10 SEEN, Urine WBC 50-100 SEEN, Ur Squamous Epith Cells 0-5 SEEN, Ur Transition Epith Cell 0-5 SEEN, Ur Renal Epithelial Cell 25-50 SEEN, Urine Bacteria 4+, Urine Mucus 1+, Ur Random Sodium 20, Urine Creatinine 43.30 10/14/24 17:55: Lactic Acid 1.2 10/15/24 05:41: WBC 17.7 H, RBC 3.66 L, Hgb 10.4 L, Hct 32.2 L, MCV 88.0, MCH 28.4, MCHC 32.3, RDW Std Deviation 51.4 H, RDW Coeff of Kathryn 15.9 H, Plt Count 234, MPV 9.0, Sodium 143, Potassium 4.3, Chloride 117 H, Carbon Dioxide 19.0 L, Anion Gap 7, BUN 42 H, Creatinine 2.25 H, Estim Creat Clear Calc 22.44, Est GFR (MDRD) Af Amer 36 L, Est GFR (MDRD) Non-Af 30 L, BUN/Creatinine Ratio 18.7, G lucose 127 H, Calcium 8.6 Micro: Microbiology 10/14/24 14:27 Urine, Clean Catch Urine Culture - Preliminary Presumptive E. coli 10/14/24 13:21 Blood Culture (Wb) - Port Blood Culture - Preliminary 10/14/24 13:19 Blood Culture (Wb) - Port Blood Culture - Preliminary Radiography Diagnostic Testing: Radiology Impression Chest X-Ray 10/14/24 13:30 IMPRESSION: No acute abnormality is seen. Reading Location: [facility]-1 Renal Ultrasound 10/14/24 15:11 IMPRESSION: Moderate bilateral hydronephrosis. Right kidney nephrolithiasis. Bilateral kidney simple cysts. Reading Location: [facility] Abdomen/Pelvis CT 10/14/24 20:42 IMPRESSION: Left hemiabdomen fat and bowel containing ventral hernia without evidence of bowel obstruction. Diastasis recti. Moderate bilateral hydroureteronephrosis without a visualized obstructive calculus. Punctate bilateral nephrolithiasis. Presacral soft tissue density and fat stranding. This may represent a mass, prior radiation or prior insult. Correlate with clinical history. Prostatomegaly. One or more dose reduction techniques were used (e.g., Automated exposure control, adjustment of the mA and/or kV according to patient size, use of iterative reconstruction technique). Reading Location: [facility] Physical Exam Const alert, no apparent distress, average body habitus and healthy appearing General Appearance: cooperative, well kempt and well developed Orientation / Consciousness: awake, oriented to person and oriented to place HEENT normocephalic, head/scalp atraumatic and moist oral mucous membranes Eyes PERRL, EOMs intact bilaterally and conjunctivae normal Neck supple, no JVD, thyroid normal and no carotid bruits General: trachea midline Resp normal respiratory effort, no retractions, no use of accessory muscles and clear to auscultation bilaterally Auscultation: Negative for rales, rhonchi or wheezes Cardio regular rate, regular rhythm, S1 normal heart sound, S2 normal heart sound, no murmurs, no rub and no gallops GI normal to inspection, nondistended, normoactive bowel sounds, soft to palpation, non-tender and non-distended Extremity no clubbing, cyanosis or edema Skin no rashes or lesions noted General Skin Exam: no breakdown Neuro CN's II-XII intact bilaterally, moves all extremities, no focal motor deficits and no sensory deficits noted Sensorium / Orientation: awake, alert, oriented to person and oriented to place Speech: speech normal Psych affect normal Assessment & Plan Assessment/Plan (1) Septic shock: PLAN: Plan 1. Septic shock secondary to gram-negative bacteria (presumptive E. coli)-I will change the patient's antibiotic coverage to meropenem, he has a history of ESBL E. coli in the past #2 BPH-I have increased the patient's Flomax to 0.8 mg nightly, he is already on Proscar and he has a Travis in place #3 acute kidney injury-labs will be monitored, patient #4 atherosclerotic heart disease-this is stable at this time #5 essential hypertension-patient's blood pressure will be monitored #6 dementia-complicates care, management, recovery, and prognosis, this appears to be mild Total clinical time spent by myself addressing patient's medical issues, reviewing all of his data, and collaborating with patient's care team: 35 minutes Charges/Coding Visit Charges Inpatient E&M: 61639 Subs Hosp L2
[2024-10-15] MEDS: Heparin Injection (Vial) 5,000 UNIT/ML VIAL 5000 UNIT SC ×2 (14:45→21:28)
--- NOTE | 2024-10-15 16:13 | CHAPLAIN ---
Type of Pastoral Visit _x__ Initial Visit ___ Follow-up Visit ___ On-call Visit ___ General Patient Visit ___ Spiritual Assessment ___ Family Conference ___ Bereavement ___ Rapid Response ___ Code Blue ___ Other (describe below) Pastoral Care Referral From _x__ Patient ___ Family ___ Nurse ___ Physician ___ Education Instructor ___ Horologist Apprentice ___ Other (describe below) Sacrament/Intervention _x__ Active listening ___ Anointing ___ Uatsdin ___ Bereavement ___ Communion ___ Amparo exploration ___ _x__ Life review _x__ Prayer ___ Reconciliation ___ Sacrament of Sick _x__ Supportive presence ___ Wedding ___ Other (describe below) Pastoral Comments patient is welcoming and has been seen before; pt clarifies where he is with a question to this senior contracts manager; pt knows he came from a alf but does not remember the name of it; pt says that he was upset about his daughter selling his home and car but that he is dealing with the new situation; pt admits to having some anxiety and nerves about the move and being away from his things; pt receives time to talk and welcomes a prayer
[2024-10-15] MEDS: Meropenem 500 MG in 0.9% Normal Saline (50mL MB+) 50 ML 100 MG IV (21:27)
[2024-10-15] MEDS: Atorvastatin Calcium 10 MG Tablet PO (21:28)
[2024-10-15] MEDS: Tamsulosin HCl 0.4 MG Capsule 0.8 MG PO (21:28)
[2024-10-16] VITALS (25 sets, daily range): BP systolic 87–139; BP diastolic 47–72; PULSE 70–95; RESP 15–23; TEMP 36.1–36.6; O2SAT 94–99; BMI 23.6
[2024-10-16] MEDS: CHLORHEXIDINE GLUC 2% CLOTH 1 EACH TOWELETTE TOPICAL (00:06)
[2024-10-16] MEDS: Acetaminophen 325 MG Tablet 650 MG PO ×2 (00:06→20:54)
[2024-10-16] MEDS: Gabapentin 100 MG Capsule PO ×3 (05:40→20:54)
[2024-10-16] MEDS: Heparin Injection (Vial) 5,000 UNIT/ML VIAL 5000 UNIT SC ×3 (05:41→20:54)
[2024-10-16 06:02] LABS: Absolute Lymphocyte Count 0.88 X10^3/uL (0.83-4.51); Absolute Neutrophil Count 9.4 X10^3/uL (2.0-7.7); Basophil# 0.04 X10^3/uL; Basophil% 0.3 % (0-1); Eosinophil# 0.22 X10^3/uL; Eosinophils% 1.9 % (0-5); Hematocrit 30.3 % (40-54); Hemoglobin 9.8 g/dL (13.0-16.5); Lymphocyte # 0.88 X10^3/ul (0.83-4.51); Lymphocyte % 7.6 % (19-41); Mean Corp Hgb Conc 32.3 g/dL (32-36); Mean Corpuscular Hgb 28.7 pg (27.0-32.0); Mean Corpuscular Volume 88.9 fL (80-94); Mean Platelet Vol. 9.4 fl (6.2-12.0); Monocyte# 0.87 X10^3/uL; Monocyte% 7.5 % (0-10); NRBC Flagged by Analyzer 0 % (0-5); Neutrophil # 9.35 X10^3/uL (2.7-7.7); Neutrophil % 80.9 % (47-70); Platelet Count 241 K/mm3 (150-450); RBC Distribution Width CV 16.2 % (11.6-14.6); RBC Distribution Width SD 52.1 fl (35.1-43.9); Red Blood Count 3.41 M/mm3 (4.6-6.2); White Blood Count 11.6 K/mm3 (4.4-11.0)
[2024-10-16 06:15] LABS: Anion Gap 6 (5-15); BUN 33 mg/dL (7-18); Calcium,Total 8.5 mg/dL (8.5-10.1); Chloride 115 mmol/L (98-107); Creatinine, Serum 1.94 mg/dL (0.70-1.30); EST Glomerular Filtration Rate 35 mL/min (>60); Est Glom Filt Rate - Afr Amer 42 mL/min (>60); Estimated Creatinine Clearance 26.03 ml/min; Glucose 99 mg/dL (74-106); Potassium 4.3 mmol/L (3.5-5.1); Sodium Level 141 mmol/L (136-145)
--- NOTE | 2024-10-16 10:10 | PCM.PN.HOSP ---
Reason for Visit Reason for Visit: Diagnoses Sepsis, unspecified organism (10/14/24) Elevated white blood cell count, unspecified (10/14/24) Hypotension, unspecified (10/14/24) Acute kidney failure, unspecified (10/14/24) Urinary tract infection, site not specified (10/14/24) Repeated falls (10/14/24) Severe sepsis with septic shock (10/14/24) Subjective Subjective Patient was seen and examined today, he is on room air and no pressor agents at this time. White blood cell count was 11.6. Creatinine is improved to 1.94. Objective Data Objective Data Vital Signs: Vital Signs Temp Pulse Resp BP Pulse Ox O2 Del Method 97.1 F L 72 19 H 120/63 95 Room Air 10/14/24 18:00 10/16/24 07:00 10/16/24 07:00 10/16/24 07:00 10/16/24 07:00 10/16/24 07:00 Oxygen Delivery Method Room Air Weight: 68.1 kg Body Mass Index (BMI) 23.6 Intake & Output: Intake and Output for Last 24 Hours 10/14/24 10/15/24 10/16/24 23:59 23:59 23:59 Intake Total 3486.27 / 3495.67 1225.98 / 1731.58 1004.62 / 1004.62 Output Total 1500 / 2150 1000 / 1000 Balance 3486.27 / 3495.67 -274.02 / -418.42 4.62 / 4.62 Lab / Micro Data 10/16/24 05:51 10/16/24 05:51 Labs: Laboratory Results - last 24 hr 10/16/24 05:51: WBC 11.6 H, RBC 3.41 L, Hgb 9.8 L, Hct 30.3 L, MCV 88.9, MCH 28.7, MCHC 32.3, RDW Std Deviation 52.1 H, RDW Coeff of Kathryn 16.2 H, Plt Count 241, MPV 9.4, Immature Gran % (Auto) 1.800 H, Neut % (Auto) 80.9 H, Lymph % (Auto) 7.6 L, [place] % (Auto) 7.5, Eos % (Auto) 1.9, Baso % (Auto) 0.3, Absolute Neuts (auto) 9.4 H, Absolute Lymphs (auto) 0.88, Nucleated RBC % 0, Sodium 141, Potassium 4.3, Chloride 115 H, Carbon Dioxide 20.0 L, Anion Gap 6, BUN 33 H, Creatinine 1.94 H, Estim Creat Clear Calc 26.03, Est GFR (MDRD) Af Amer 42 L, Est GFR (MDRD) Non-Af 35 L, BUN/Creatinine Ratio 17.0, Glucose 99, Calcium 8.5 Micro: Microbiology 10/14/24 14:27 Urine, Clean Catch Urine Culture - Preliminary ESBL Escherichia coli 10/14/24 13:21 Blood Culture (Wb) - Port Blood Culture - Preliminary GNR lactose pattern mechanic 10/14/24 13:19 Blood Culture (Wb) - Port Blood Culture - Preliminary GNR lactose pattern mechanic Physical Exam Narrative alert, no apparent distress, average body habitus and healthy appearing General Appearance: cooperative, well kempt and well developed Orientation / Consciousness: awake, oriented to person and oriented to place HEENT normocephalic, head/scalp atraumatic and moist oral mucous membranes Eyes PERRL, EOMs intact bilaterally and conjunctivae normal Neck supple, no JVD, thyroid normal and no carotid bruits General: trachea midline Resp normal respiratory effort, no retractions, no use of accessory muscles and clear to auscultation bilaterally Auscultation: Negative for rales, rhonchi or wheezes Cardio regular rate, regular rhythm, S1 normal heart sound, S2 normal heart sound, no murmurs, no rub and no gallops GI normal to inspection, nondistended, normoactive bowel sounds, soft to palpation, non-tender and non-distended Extremity no clubbing, cyanosis or edema Skin no rashes or lesions noted General Skin Exam: no breakdown Neuro CN's II-XII intact bilaterally, moves all extremities, no focal motor deficits and no sensory deficits noted Sensorium / Orientation: awake, alert, oriented to person and oriented to place Speech: speech normal Psych affect normal Assessment & Plan Assessment/Plan (1) Septic shock: PLAN: Plan 1. Septic shock secondary to ESBL E. coli-patient will remain on meropenem #2 BPH-I have increased the patient's Flomax to 0.8 mg nightly, he is already on Proscar and he has a Travis in place #3 acute kidney injury-labs will be monitored #4 atherosclerotic heart disease-this is stable at this time #5 essential hypertension-patient's blood pressure will be monitored #6 dementia-complicates care, management, recovery, and prognosis, this appears to be mild Patient appears stable for transfer to PCU Total clinical time spent by myself addressing patient's medical issues, reviewing all of his data, and collaborating with patient's care team: 35 minutes Charges/Coding Visit Charges Inpatient E&M: 35586 Subs Hosp L2
--- NOTE | 2024-10-16 11:01 | CASEMGMT ---
Social Work RN informed SW that pt had mentioned his daughter is stealing from him, sold all his belongings. Pt does have a dementia diagnosis. SW met w/pt in room, introduced self to pt. Pt initially told SW [facility] is in [facility]. SW asked pt about his comments to the RN that daughter is stealing from him. Pt states she spends too much money. He states it is his money, and pt states that she is spending it on him. He also states his daughter sold his house, she told him the money is in his name but he has not seen the paperwork. SW inquired if he is concerned about any of this, he states no, declined to speak to a police shift commander while here. SW remains available should pt need to talk through this further. TOM Millard
[2024-10-16] MEDS: Aspirin E.C. 81 MG Tablet PO (11:07)
[2024-10-16] MEDS: Meropenem 500 MG in 0.9% Normal Saline (50mL MB+) 50 ML 100 MG IV ×2 (11:07→20:57)
[2024-10-16] MEDS: Memantine Hydrochloride 10 MG Tablet PO ×2 (11:10→20:53)
[2024-10-16] MEDS: buPROPion (SR) 150 MG Tablet.SA PO ×2 (11:11→20:53)
[2024-10-16] MEDS: Finasteride 5 MG Tablet PO (11:11)
[2024-10-16] MEDS: 0.9% Saline Lock 10 ML Syringe IV ×2 (16:36→20:54)
--- NOTE | 2024-10-16 18:00 | NURSING ---
Patient insisted on ambulating in the hallway independently, unsteady and holding on to wall. This RN instructing patient to hold on to walker instead of the wall and patient became agitated and swatting at this RN, patient stated get your hands off me. This RN educated patient he is in the hospital and needs to go back to the chair, patient walked with walker back to chair, chair alarm on, bedside table placed in front of patient, call light in reach, primary nurse notified.
[2024-10-16] MEDS: Tamsulosin HCl 0.4 MG Capsule 0.8 MG PO (20:53)
[2024-10-16] MEDS: Atorvastatin Calcium 10 MG Tablet PO (20:53)
[2024-10-16] MEDS: Menthol/Lanolin/Calamine/Znox 113 GM Tube 1 APPLIC TOPICAL (20:57)
[2024-10-17 02:58] VITALS: BP 108/59; PULSE 75; RESP 17; TEMP 36.2; O2SAT 98
[2024-10-17 04:25] LABS: Absolute Lymphocyte Count 1.38 X10^3/uL (0.83-4.51); Absolute Neutrophil Count 6.9 X10^3/uL (2.0-7.7); Basophil# 0.03 X10^3/uL; Basophil% 0.3 % (0-1); Eosinophil# 0.21 X10^3/uL; Eosinophils% 2.2 % (0-5); Hematocrit 31.7 % (40-54); Hemoglobin 9.9 g/dL (13.0-16.5); Lymphocyte # 1.38 X10^3/ul (0.83-4.51); Lymphocyte % 14.7 % (19-41); Mean Corp Hgb Conc 31.2 g/dL (32-36); Mean Corpuscular Volume 89.5 fL (80-94); Mean Platelet Vol. 9.3 fl (6.2-12.0); Monocyte# 0.74 X10^3/uL; Monocyte% 7.9 % (0-10); NRBC Flagged by Analyzer 0 % (0-5); Neutrophil # 6.87 X10^3/uL (2.7-7.7); Neutrophil % 73.1 % (47-70); Platelet Count 263 K/mm3 (150-450); RBC Distribution Width CV 15.8 % (11.6-14.6); RBC Distribution Width SD 51.9 fl (35.1-43.9); Red Blood Count 3.54 M/mm3 (4.6-6.2); White Blood Count 9.4 K/mm3 (4.4-11.0)
[2024-10-17 04:44] LABS: Anion Gap 7 (5-15); BUN 40 mg/dL (7-18); BUN/Creat Ratio 24.5 RATIO (10-20); Calcium,Total 8.8 mg/dL (8.5-10.1); Chloride 114 mmol/L (98-107); Creatinine, Serum 1.63 mg/dL (0.70-1.30); EST Glomerular Filtration Rate 43 mL/min (>60); Est Glom Filt Rate - Afr Amer 52 mL/min (>60); Estimated Creatinine Clearance 30.98 ml/min; Glucose 87 mg/dL (74-106); Potassium 4.5 mmol/L (3.5-5.1); Sodium Level 140 mmol/L (136-145)
[2024-10-17 05:15] VITALS: BMI 23.1
[2024-10-17] MEDS: Heparin Injection (Vial) 5,000 UNIT/ML VIAL 5000 UNIT SC ×3 (06:40→20:59)
[2024-10-17] MEDS: Gabapentin 100 MG Capsule PO ×3 (06:40→20:59)
[2024-10-17 07:00] VITALS: PULSE 78
[2024-10-17 08:18] VITALS: BP 93/54; PULSE 99; RESP 22; TEMP 36.7; O2SAT 100
[2024-10-17] MEDS: Menthol/Lanolin/Calamine/Znox 113 GM Tube 1 APPLIC TOPICAL ×2 (09:45→20:59)
[2024-10-17] MEDS: Aspirin E.C. 81 MG Tablet PO (09:45)
[2024-10-17] MEDS: Memantine Hydrochloride 10 MG Tablet PO ×2 (09:46→20:59)
[2024-10-17] MEDS: Finasteride 5 MG Tablet PO (09:46)
[2024-10-17] MEDS: buPROPion (SR) 150 MG Tablet.SA PO ×2 (09:47→20:59)
[2024-10-17] MEDS: 0.9% Saline Lock 10 ML Syringe IV (09:49)
[2024-10-17] MEDS: Meropenem 1 GM in 0.9% Normal Saline (100mL MB+) 100 ML IV ×2 (09:50→20:59)
--- NOTE | 2024-10-17 10:36 | PN.HOSP_ITS ---
Reason for Visit Reason for Visit: Diagnoses Sepsis, unspecified organism (10/14/24) Elevated white blood cell count, unspecified (10/14/24) Hypotension, unspecified (10/14/24) Acute kidney failure, unspecified (10/14/24) Urinary tract infection, site not specified (10/14/24) Repeated falls (10/14/24) Severe sepsis with septic shock (10/14/24) Subjective Subjective Patient was seen and examined today, he is in no distress. Patient's creatinine is improved to 1.63 today and white count is normal. Objective Data Objective Data Vital Signs: Vital Signs Temp Pulse Resp BP Pulse Ox O2 Del Method 98.1 F 99 22 H 93/54 L 100 Room Air 10/17/24 08:18 10/17/24 08:18 10/17/24 08:18 10/17/24 08:18 10/17/24 08:18 10/17/24 08:18 Oxygen Delivery Method Room Air Weight: 67 kg Body Mass Index (BMI) 23.1 Intake & Output: Intake and Output for Last 24 Hours 10/15/24 10/16/24 10/17/24 23:59 23:59 23:59 Intake Total 1225.98 / 1731.58 2456.52 / 2606.52 750 / 750 Output Total 1500 / 2150 2325 / 2825 1600 / 1600 Balance -274.02 / -418.42 131.52 / -218.48 -850 / -850 Lab / Micro Data 10/17/24 04:13 10/17/24 04:13 Labs: Laboratory Results - last 24 hr 10/17/24 04:13: WBC 9.4, RBC 3.54 L, Hgb 9.9 L, Hct 31.7 L, MCV 89.5, MCH 28.0, MCHC 31.2 L, RDW Std Deviation 51.9 H, RDW Coeff of Kathryn 15.8 H, Plt Count 263, MPV 9.3, Immature Gran % (Auto) 1.800 H, Neut % (Auto) 73.1 H, Lymph % (Auto) 14.7 L, [place] % (Auto) 7.9, Eos % (Auto) 2.2, Baso % (Auto) 0.3, Absolute Neuts (auto) 6.9, Absolute Lymphs (auto) 1.38, Nucleated RBC % 0, Sodium 140, Potassium 4.5, Chloride 114 H, Carbon Dioxide 19.0 L, Anion Gap 7, BUN 40 H, C reatinine 1.63 H, Estim Creat Clear Calc 30.98, Est GFR (MDRD) Af Amer 52 L, Est GFR (MDRD) Non-Af 43 L, BUN/Creatinine Ratio 24.5 H, Glucose 87, Calcium 8.8 Micro: Microbiology 10/14/24 14:27 Urine, Clean Catch Urine Culture - Final ESBL Escherichia coli 10/14/24 13:21 Blood Culture (Wb) - Port Blood Culture - Final ESBL Escherichia coli 10/14/24 13:19 Blood Culture (Wb) - Port Blood Culture - Final ESBL Escherichia coli Physical Exam Narrative alert, no apparent distress, average body habitus and healthy appearing General Appearance: cooperative, well kempt and well developed Orientation / Consciousness: awake, oriented to person and oriented to place HEENT normocephalic, head/scalp atraumatic and moist oral mucous membranes Eyes PERRL, EOMs intact bilaterally and conjunctivae normal Neck supple, no JVD, thyroid normal and no carotid bruits General: trachea midline Resp normal respiratory effort, no retractions, no use of accessory muscles and clear to auscultation bilaterally Auscultation: Negative for rales, rhonchi or wheezes Cardio regular rate, regular rhythm, S1 normal heart sound, S2 normal heart sound, no murmurs, no rub and no gallops GI normal to inspection, nondistended, normoactive bowel sounds, soft to palpation, non-tender and non-distended Extremity no clubbing, cyanosis or edema Skin no rashes or lesions noted General Skin Exam: no breakdown Neuro CN's II-XII intact bilaterally, moves all extremities, no focal motor deficits and no sensory deficits noted Sensorium / Orientation: awake, alert, oriented to person and oriented to place Speech: speech normal Psych affect normal Assessment & Plan Assessment/Plan (1) Septic shock: PLAN: Plan 1. Septic shock secondary to ESBL E. coli-patient will remain on meropenem #2 BPH-I have increased the patient's Flomax to 0.8 mg nightly, he is already on Proscar and he has a Travis in place #3 acute kidney injury-labs will be monitored, creatinine was improved today #4 atherosclerotic heart disease-this is stable at this time #5 essential hypertension-patient's blood pressure will be monitored #6 dementia-complicates care, management, recovery, and prognosis, this appears to be mild Patient appears stable for transfer to [place] 3 Total clinical time spent by myself addressing patient's medical issues, reviewing all of his data, and collaborating with patient's care team: 35 minutes Charges/Coding Visit Charges Inpatient E&M: 00821 Subs Hosp L2
[2024-10-17 14:00] VITALS: BP 102/62; PULSE 84; RESP 18; TEMP 36.7; O2SAT 94
[2024-10-17 17:09] VITALS: BP 121/63; PULSE 93; RESP 17; TEMP 36.7; O2SAT 100
[2024-10-17 20:41] VITALS: BP 93/51; PULSE 88; RESP 18; TEMP 36.7; O2SAT 98
[2024-10-17] MEDS: Acetaminophen 325 MG Tablet 650 MG PO (20:58)
[2024-10-17] MEDS: Tamsulosin HCl 0.4 MG Capsule 0.8 MG PO (20:59)
[2024-10-17] MEDS: Atorvastatin Calcium 10 MG Tablet PO (20:59)
[2024-10-18 04:41] VITALS: BP 103/56; PULSE 82; RESP 18; TEMP 36.9; O2SAT 100
[2024-10-18] MEDS: Acetaminophen 325 MG Tablet 650 MG PO ×3 (04:47→21:15)
[2024-10-18] MEDS: Gabapentin 100 MG Capsule PO ×3 (04:47→21:16)
[2024-10-18] MEDS: Heparin Injection (Vial) 5,000 UNIT/ML VIAL 5000 UNIT SC ×3 (04:47→21:18)
[2024-10-18 05:49] LABS: Absolute Neutrophil Count 6.9 X10^3/uL (2.0-7.7); Basophil# 0.03 X10^3/uL; Basophil% 0.3 % (0-1); Eosinophils% 2.1 % (0-5); Hematocrit 35.3 % (40-54); Hemoglobin 10.8 g/dL (13.0-16.5); Lymphocyte % 13.9 % (19-41); Mean Corp Hgb Conc 30.6 g/dL (32-36); Mean Corpuscular Hgb 28.1 pg (27.0-32.0); Mean Corpuscular Volume 91.7 fL (80-94); Mean Platelet Vol. 9.4 fl (6.2-12.0); Monocyte# 0.75 X10^3/uL; NRBC Flagged by Analyzer 0 % (0-5); Neutrophil # 6.94 X10^3/uL (2.7-7.7); Platelet Count 321 K/mm3 (150-450); RBC Distribution Width CV 15.9 % (11.6-14.6); RBC Distribution Width SD 53.1 fl (35.1-43.9); Red Blood Count 3.85 M/mm3 (4.6-6.2); White Blood Count 9.4 K/mm3 (4.4-11.0)
[2024-10-18 06:00] VITALS: BMI 21.0
[2024-10-18 06:17] LABS: Anion Gap 6 (5-15); BUN 37 mg/dL (7-18); BUN/Creat Ratio 23.3 RATIO (10-20); Calcium,Total 9.4 mg/dL (8.5-10.1); Chloride 111 mmol/L (98-107); Creatinine, Serum 1.59 mg/dL (0.70-1.30); EST Glomerular Filtration Rate 44 mL/min (>60); Est Glom Filt Rate - Afr Amer 53 mL/min (>60); Estimated Creatinine Clearance 29.26 ml/min; Glucose 93 mg/dL (74-106); Potassium 4.5 mmol/L (3.5-5.1); Sodium Level 140 mmol/L (136-145)
[2024-10-18] MEDS: Aspirin E.C. 81 MG Tablet PO (08:07)
--- NOTE | 2024-10-18 08:47 | PCM.PN.HOSP ---
Reason for Visit Reason for Visit: Diagnoses Sepsis, unspecified organism (10/14/24) Elevated white blood cell count, unspecified (10/14/24) Hypotension, unspecified (10/14/24) Acute kidney failure, unspecified (10/14/24) Urinary tract infection, site not specified (10/14/24) Repeated falls (10/14/24) Severe sepsis with septic shock (10/14/24) Subjective Subjective Patient is an 84-year-old gentleman admitted with fever and low blood pressure and assessment of septic shock secondary to ESBL E. coli was made for subsequent inpatient management Objective Data Objective Data Vital Signs: Vital Signs Temp Pulse Resp BP Pulse Ox O2 Del Method 98.4 F 82 18 103/56 L 100 Room Air 10/18/24 04:41 10/18/24 04:41 10/18/24 04:41 10/18/24 04:41 10/18/24 04:41 10/18/24 04:41 Oxygen Delivery Method Room Air Weight: 60.9 kg Body Mass Index (BMI) 21.0 Intake & Output: Intake and Output for Last 24 Hours 10/16/24 10/17/24 10/18/24 23:59 23:59 23:59 Intake Total 2456.52 / 2606.52 850 / 850 100 / 100 Output Total 2325 / 2825 3175 / 3175 525 / 525 Balance 131.52 / -218.48 -2325 / -2325 -425 / -425 Lab / Micro Data 10/18/24 05:18 10/18/24 05:18 Labs: Laboratory Results - last 24 hr 10/18/24 05:18: WBC 9.4, RBC 3.85 L, Hgb 10.8 L, Hct 35.3 L, MCV 91.7, MCH 28.1, MCHC 30.6 L, RDW Std Deviation 53.1 H, RDW Coeff of Kathryn 15.9 H, Plt Count 321, MPV 9.4, Immature Gran % (Auto) 1.700 H, Neut % (Auto) 74.0 H, Lymph % (Auto) 13.9 L, [place] % (Auto) 8.0, Eos % (Auto) 2.1, Baso % (Auto) 0.3, Absolute Neuts (auto) 6.9, Absolute Lymphs (auto) 1.30, Nucleated RBC % 0, Sodium 140, Potassium 4.5, Chloride 111 H, Carbon Dioxide 22.0, Anion Gap 6, BUN 37 H, Creatinine 1.59 H, Estim Creat Clear Calc 29.26, Est GFR (MDRD) Af Amer 53 L, Est GFR (MDRD) Non-Af 44 L, BUN/Creatinine Ratio 23.3 H, Glucose 93, Calcium 9.4 Micro: Microbiology 10/14/24 14:27 Urine, Clean Catch Urine Culture - Final ESBL Escherichia coli 10/14/24 13:21 Blood Culture (Wb) - Port Blood Culture - Final ESBL Escherichia coli 10/14/24 13:19 Blood Culture (Wb) - Port Blood Culture - Final ESBL Escherichia coli Physical Exam Narrative GENERAL: cooperative HEENT: Atraumatic; normocephalic EYES; Anicteric, Normal Conjunctiva NECK; supple, normal thyroid, RESPIRATORY: Diminished to auscultation CARDIOVASCULAR: Regular S1 S2, GI: soft, normoactive bowel sounds, : No Renal angle tenderness; EXTREMITIES: No edema MUSCULOSKELETAL: no muscle wasting NEURO: Awake; no lateralizing signs. SKIN: No Rash PSYCH; Flat affect Assessment & Plan Assessment/Plan (1) Septic shock: PLAN: Plan Patient is an 84-year-old gentleman admitted with fever and low blood pressure and assessment of septic shock secondary to ESBL E. coli was made for subsequent inpatient management 1. Septic shock ? Secondary to acute complicated UTI with ESBL. Patient was treated per protocol. Urine cultures did confirm presence of ESBL started on meropenem consult placed to ID 2. BPH with lower urinary obstructive symptoms - Patient treated with tamsulosin patient also had a Travis catheter placed and consult placed to urology 3. Acute kidney injury ? Secondary to obstructive uropathy Travis catheter was placed subsequently monitoring creatinine improving 4. History of acute CVA -MRI on 10/30/2023 demonstrated small foci of acute infarct in the left and right occipital white matter. Patient is on atorvastatin as well as antiplatelet therapy with aspirin 5. Dyslipidemia -Patient is on statin therapy, continued at home dose 6. Coronary artery disease ? Did continue guideline directed medical therapy 7. Hypertension - Blood pressure controlled, home medications continued with dose adjustment as needed 8. Physical deconditioning ? Requested for PT OT eval and older adult social work specialist to assist with discharge planning 9. History of prostate cancer -Prostate cancer was treated with radiation, Continue outpatient follow-up 10. History of colon cancer -Status post colectomy with colostomy; -No current issues 11. Depression ? Patient is on Remeron and Wellbutrin 12. Anemia - Secondary to chronic disorder monitoring H&H and transfuse if patient becomes symptomatic or hemoglobin falls below 7 13. DVT prophylaxis -Subcu heparin Time spent in the patient's overall evaluation,decision-making process, review of diagnostic data, adjustment of management, discussion with other providers, nursing nursing and ancillary staff involved in patient's care documentation, 40 Minutes Charges/Coding Visit Charges Inpatient E&M: 66334 Subs Hosp L2
[2024-10-18] MEDS: FLU VACCINE **HIGH DOSE** TV 24-25 180 MCG/0.5 ML SYRINGE IM (10:23)
[2024-10-18] MEDS: Finasteride 5 MG Tablet PO (10:26)
[2024-10-18] MEDS: Memantine Hydrochloride 10 MG Tablet PO ×2 (10:26→21:20)
[2024-10-18] MEDS: 0.9% Saline Lock 10 ML Syringe IV ×2 (10:27→14:16)
[2024-10-18] MEDS: Menthol/Lanolin/Calamine/Znox 113 GM Tube 1 APPLIC TOPICAL ×2 (10:27→21:19)
[2024-10-18] MEDS: buPROPion (SR) 150 MG Tablet.SA PO ×2 (10:27→21:18)
[2024-10-18] MEDS: Meropenem 1 GM in 0.9% Normal Saline (100mL MB+) 100 ML IV ×2 (10:34→21:32)
[2024-10-18 10:40] VITALS: BP 129/53; PULSE 79; RESP 16; TEMP 36.6; O2SAT 99
--- NOTE | 2024-10-18 12:12 | CASEMGMT ---
Updates sent to [facility] with note that pt may discharge with IV atb. [facility] confirmed that he will not need new precert to return. SW updated. Asha Wright DC Planning Asst.
--- NOTE | 2024-10-18 13:21 | PCM.CONS.GEN ---
Assessment & Plan Assessment/Plan (1) Septic shock: PLAN: Due to ESBL ecoli bacteremia from urinary source. Improved, seen by urology, out of icu. Cont meropenem. Tentative plan for discharge will be once daily IV ertapenem 1gm via port. Will follow, thank you (2) ESBL (extended spectrum beta-lactamase) producing bacteria infection: HPI Consult Data Date of Consult: 10/18/24 HPI Narrative Reason for Consultation: esbl infection HPI Narrative: HOWIE MANZO, is a 84 M with h/o stroke and BPH, [facility] with several days confusion, fatigue, not feeling well. Had been started on bactrim for uti. Admitted on zosyn, now changed to meropenem / due to growth of ESBL. Feeling better, no abd pain. Full ROS performed and neg except as noted above. [facility] Medical History History of ESBL E. coli infection Acute UTI Syncope Near syncope Alcohol abuse GI bleed Non-smoker Stroke/cerebrovascular accident Vision loss of right eye Vision loss of left eye Hearing loss, left Hearing loss, right Chronic pain Kidney stones Kidney disease Myocardial infarct Chest pain Acute cerebrovascular accident (CVA) CVA (cerebral vascular accident) Vitamin D deficiency Chronic pain Cognitive impairment Frequent falls Smoker Fall History of echocardiogram Wears hearing aid Wears glasses Wears dentures Cancer Depression Anxiety Alcohol use Gait instability Ambulates with cane Arthritis High cholesterol Easy bruising Back pain Chewing tobacco nicotine dependence History of pain when walking History of stress test Cardiology follow-up encounter History of heart attack Colon cancer 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 Atherosclerosis of coronary artery of port lions heart without angina pectoris Essential (primary) hypertension 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 BPH (benign prostatic hyperplasia) HLD (hyperlipidemia) Home Medications ?Medication ?Instructions ?Recorded ?Last Taken ?Type finasteride 5 mg tablet (Proscar) 5 mg PO DAILY PROSTATE 01/27/18 01/05/24 History aspirin 81 mg tablet,delayed 81 mg PO DAILY HEART HEALTH 07/30/18 01/04/24 History release (Adult Low Dose Aspirin) tamsulosin 0.4 mg capsule 0.4 mg PO QHS PROSTATE 10/21/21 01/04/24 History nitroglycerin 0.4 mg sublingual 0.4 mg sublingual Q5M PRN CHEST 05/12/23 Unknown Rx tablet PAIN #25 tabs atorvastatin 10 mg tablet 10 mg PO QHS CHOLESTEROL 10/31/23 01/04/24 History bupropion HCl 150 mg tablet,12 hr 150 mg PO BID DEPRESSION 10/31/23 01/05/24 History sustained-release gabapentin 100 mg capsule 100 mg PO TID NEUROPATHY 11/14/23 01/05/24 History multivitamin (Daily Multi-Vitamin 1 tab PO DAILY 01/05/24 01/05/24 History tablet) acetaminophen 325 mg tablet 650 mg (2 x 325 mg) PO Q6H PRN PRN 04/18/24 Unknown Rx Pain 1-10 Or Fever #0 tabs sennosides 8.6 mg-docusate sodium 2 tab PO BID PRN PRN Constipation 04/18/24 Unknown Rx 50 mg tablet (Stimulant Laxative #0 tabs Plus) fluticasone propionate 50 1 spray intranasal DAILY PRN 10/14/24 Unknown History mcg/actuation nasal allergy symptoms spray,suspension (Allergy Relief (fluticasone)) lidocaine 4 % topical patch 1 patch topical Q12H pain 10/14/24 Unknown History (Aspercreme (lidocaine)) loratadine 10 mg tablet (Allergy 10 mg PO DAILY allergy 10/14/24 Unknown History Relief (loratadine)) memantine 10 mg tablet 10 mg PO BID 10/14/24 Unknown History sulfamethoxazole 800 1 tab PO Q12H 10/14/24 Unknown History mg-trimethoprim 160 mg tablet Allergy/AdvReac Type Severity Reaction Status Date / Time No Known Allergies Allergy Verified 10/14/24 12:54 Family History Father Cancer skin cancer Mother Myocardial infarction Diabetes Other Fall Surgical History History of angioplasty History of colostomy History of left heart catheterization (02/24/02) H/O percutaneous transluminal coronary angioplasty (11/13/93) History of cystoscopy Hx of appendectomy History of inguinal hernia repair, bilateral Status post trigger finger release History of rotator cuff surgery Hx of colectomy Social History household members: none Smoking Status: Never smoker alcohol intake: current alcohol intake frequency: a few times a month Alcohol type: hard liquor substance use type: does not use caffeine: Yes Type: coffee Number of servings: 1 Physical Exam Const alert and no apparent distress General Appearance: cooperative HEENT normocephalic and head/scalp atraumatic Eyes PERRL and EOMs intact bilaterally Neck supple and No nodes Resp normal air movement and clear to auscultation bilaterally Cardio regular rate and regular rhythm GI soft to palpation, non-tender and non-distended Extremity General Extremity: Negative for edema Skin no rashes or lesions noted Skin Narrative: R chest port Neuro CN's II-XII intact bilaterally Lab / Micro Data Attestation: I reviewed the patient's lab results. 10/18/24 05:18 10/18/24 05:18 Labs: Laboratory Results - last 24 hr 10/18/24 05:18: WBC 9.4, RBC 3.85 L, Hgb 10.8 L, Hct 35.3 L, MCV 91.7, MCH 28.1, MCHC 30.6 L, RDW Std Deviation 53.1 H, RDW Coeff of Kathryn 15.9 H, Plt Count 321, MPV 9.4, Immature Gran % (Auto) 1.700 H, Neut % (Auto) 74.0 H, Lymph % (Auto) 13.9 L, [place] % (Auto) 8.0, Eos % (Auto) 2.1, Baso % (Auto) 0.3, Absolute Neuts (auto) 6.9, Absolute Lymphs (auto) 1.30, Nucleated RBC % 0, Sodium 140, Potassium 4.5, Chloride 111 H, Carbon Dioxide 22.0, Anion Gap 6, BUN 37 H, Creatinine 1.59 H, Estim Creat Clear Calc 29.26, Est GFR (MDRD) Af Amer 53 L, Est GFR (MDRD) Non-Af 44 L, BUN/Creatinine Ratio 23.3 H, Glucose 93, Calcium 9.4 Micro: Microbiology 10/14/24 14:27 Urine, Clean Catch Urine Culture - Final ESBL Escherichia coli 10/14/24 13:21 Blood Culture (Wb) - Port Blood Culture - Final ESBL Escherichia coli 10/14/24 13:19 Blood Culture (Wb) - Port Blood Culture - Final ESBL Escherichia coli
--- NOTE | 2024-10-18 16:56 | CASEMGMT ---
Social Work- [facility]charge [facility] to [facility]. ?In case of possible late discharge, green sheet on chart for nursing to follow for final discharge arrangements/notifications to SNF, patient/family.? Plan: [facility]; intermediate level of care HERIBERTO Araiza
[2024-10-18] MEDS: Ensure Plus High Protein 120 ML LIQUID PO (17:44)
[2024-10-18 17:46] VITALS: BP 97/57; PULSE 87; RESP 18; TEMP 36.4; O2SAT 97
[2024-10-18] MEDS: Tamsulosin HCl 0.4 MG Capsule 0.8 MG PO (21:19)
[2024-10-18] MEDS: Atorvastatin Calcium 10 MG Tablet PO (21:20)
[2024-10-19] VITALS: BP 124/96; PULSE 85; RESP 16; TEMP 36.9; O2SAT 100
[2024-10-19] MEDS: Heparin Injection (Vial) 5,000 UNIT/ML VIAL 5000 UNIT SC (05:14)
[2024-10-19] MEDS: Gabapentin 100 MG Capsule PO (05:14)
[2024-10-19] MEDS: Acetaminophen 325 MG Tablet 650 MG PO (05:17)
[2024-10-19 06:00] VITALS: BP 121/79; PULSE 80; RESP 16; TEMP 36.7; O2SAT 98; BMI 30.2
[2024-10-19 06:49] LABS: Absolute Lymphocyte Count 1.41 X10^3/uL (0.83-4.51); Basophil# 0.03 X10^3/uL; Basophil% 0.3 % (0-1); Eosinophil# 0.14 X10^3/uL; Eosinophils% 1.3 % (0-5); Hematocrit 33.7 % (40-54); Hemoglobin 10.3 g/dL (13.0-16.5); Lymphocyte # 1.41 X10^3/ul (0.83-4.51); Lymphocyte % 13.4 % (19-41); Mean Corp Hgb Conc 30.6 g/dL (32-36); Mean Corpuscular Hgb 27.5 pg (27.0-32.0); Mean Corpuscular Volume 90.1 fL (80-94); Mean Platelet Vol. 9.3 fl (6.2-12.0); Monocyte# 0.77 X10^3/uL; Monocyte% 7.3 % (0-10); NRBC Flagged by Analyzer 0 % (0-5); Neutrophil # 7.97 X10^3/uL (2.7-7.7); Neutrophil % 75.4 % (47-70); Platelet Count 336 K/mm3 (150-450); RBC Distribution Width CV 15.7 % (11.6-14.6); RBC Distribution Width SD 52.1 fl (35.1-43.9); Red Blood Count 3.74 M/mm3 (4.6-6.2); White Blood Count 10.6 K/mm3 (4.4-11.0)
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
[2024-10-19 07:25] LABS: Anion Gap 7 (5-15); BUN 36 mg/dL (7-18); BUN/Creat Ratio 23.5 RATIO (10-20); Calcium,Total 9.4 mg/dL (8.5-10.1); Chloride 110 mmol/L (98-107); Creatinine, Serum 1.53 mg/dL (0.70-1.30); EST Glomerular Filtration Rate 46 mL/min (>60); Est Glom Filt Rate - Afr Amer 56 mL/min (>60); Estimated Creatinine Clearance 37.28 ml/min; Glucose 97 mg/dL (74-106); Magnesium 2.3 mg/dL (1.6-2.6); Phosphorus 2.9 mg/dL (2.5-4.9); Potassium 4.5 mmol/L (3.5-5.1); Sodium Level 137 mmol/L (136-145)
--- NOTE | 2024-10-19 07:35 | PCM.DC.SUM ---
Providers Date of Admission: 10/14/24 Date of Discharge: 10/19/24 Primary Care Physician: Dr. Vishal Antonio MD Consultations 10/14/24 17:25 Consult: Urology Routine Consulting Provider: Jett Plata Reason for Consult: moderate b/l hydronephrosis, UTI w/ sepsis, BPH EMERGENT Consult: No MD Notified: Yes Date Notified: 10/14/24 Time Notified: 19:57 Method of Notification: Verbal 10/14/24 18:45 Consult: [employer] Salesperson / Pulmonary Medicine Routine Consulting Provider: Larry Romero Reason for Consult: urosepsis EMERGENT Consult: No Notified: Yes Date Notified: 10/14/24 Time Notified: 19:03 Method of Notification: Text 10/16/24 10:59 Consult: Onc/Wound/meal grinder tender Routine Comment: Reason for Consult:: colostomy 10/18/24 08:50 Consult: Infectious Disease Routine Consulting Provider: Alban Taylor Reason for Consult: ESBL e coli EMERGENT Consult: No Notified: Yes Date Notified: 10/18/24 Time Notified: 08:50 Method of Notification: Text Reason For Visit: UROSEPSIS Diagnosis Discharge Diagnosis (1) Septic shock: Status: Acute Code(s): A41.9 - Sepsis, unspecified organism; R65.21 - Severe sepsis with septic shock (2) ESBL (extended spectrum beta-lactamase) producing bacteria infection: Status: Acute Code(s): A49.9 - Bacterial infection, unspecified; Z16.12 - Extended spectrum beta lactamase (ESBL) resistance Plan Patient is an 84-year-old gentleman admitted with fever and low blood pressure and assessment of septic shock secondary to ESBL E. coli was made for subsequent inpatient management 1. Septic shock ? Secondary to acute complicated UTI with ESBL. Patient was treated per protocol. Urine cultures did confirm presence of ESBL started on meropenem consult placed to ID -ID recommended for patient to be discharged on ertapenem 2. BPH with lower urinary obstructive symptoms - Patient treated with tamsulosin patient also had a Travis catheter placed and consult placed to urology 3. Acute kidney injury ? Secondary to obstructive uropathy Travis catheter was placed subsequently monitoring creatinine improving 4. History of acute CVA -MRI on 10/30/2023 demonstrated small foci of acute infarct in the left and right occipital white matter. Patient is on atorvastatin as well as antiplatelet therapy with aspirin 5. Dyslipidemia -Patient is on statin therapy, continued at home dose 6. Coronary artery disease ? Did continue guideline directed medical therapy 7. Hypertension - Blood pressure controlled, home medications continued with dose adjustment as needed 8. Physical deconditioning ? Requested for PT OT eval and social work case manager to assist with discharge planning 9. History of prostate cancer -Prostate cancer was treated with radiation, Continue outpatient follow-up 10. History of colon cancer -Status post colectomy with colostomy; -No current issues 11. Depression ? Patient is on Remeron and Wellbutrin 12. Anemia - Secondary to chronic disorder monitoring H&H and transfuse if patient becomes symptomatic or hemoglobin falls below 7 13. DVT prophylaxis -Subcu heparin Time spent in the patient's overall evaluation,decision-making process, review of diagnostic data, adjustment of management, discussion with other providers, nursing nursing and ancillary staff involved in patient's care documentation, 40 Minutes Medications at Discharge Home Medications finasteride 5 mg tablet (Proscar) 5 mg PO DAILY PROSTATE 01/27/18 aspirin 81 mg tablet,delayed release (Adult Low Dose Aspirin) 81 mg PO DAILY HEART HEALTH 07/30/18 tamsulosin 0.4 mg capsule 0.4 mg PO QHS PROSTATE 10/21/21 nitroglycerin 0.4 mg sublingual tablet 0.4 mg sublingual Q5M PRN CHEST PAIN #25 tabs 05/12/23 atorvastatin 10 mg tablet 10 mg PO QHS CHOLESTEROL 10/31/23 bupropion HCl 150 mg tablet,12 hr sustained-release 150 mg PO BID DEPRESSION 10/31/23 gabapentin 100 mg capsule 100 mg PO TID NEUROPATHY 11/14/23 multivitamin (Daily Multi-Vitamin tablet) 1 tab PO DAILY 01/05/24 acetaminophen 325 mg tablet 650 mg (2 x 325 mg) PO Q6H PRN PRN Pain 1-10 Or Fever #0 tabs 04/18/24 sennosides 8.6 mg-docusate sodium 50 mg tablet (Stimulant Laxative Plus) 2 tab PO BID PRN PRN Constipation #0 tabs 04/18/24 fluticasone propionate 50 mcg/actuation nasal spray,suspension (Allergy Relief (fluticasone)) 1 spray intranasal DAILY PRN allergy symptoms 10/14/24 lidocaine 4 % topical patch (Aspercreme (lidocaine)) 1 patch topical Q12H pain 10/14/24 loratadine 10 mg tablet (Allergy Relief (loratadine)) 10 mg PO DAILY allergy 10/14/24 memantine 10 mg tablet 10 mg PO BID 10/14/24 ertapenem 1 gram solution for injection 1 g IM DAILY #10 ea 10/19/24 Physical Exam Narrative GENERAL: cooperative HEENT: Atraumatic; normocephalic EYES; Anicteric, Normal Conjunctiva NECK; supple, normal thyroid, RESPIRATORY: Diminished to auscultation CARDIOVASCULAR: Regular S1 S2, GI: soft, normoactive bowel sounds, : No Renal angle tenderness; EXTREMITIES: No edema MUSCULOSKELETAL: no muscle wasting NEURO: Awake; no lateralizing signs. SKIN: No Rash PSYCH; Flat affect HEENT normocephalic, head/scalp atraumatic, hearing grossly normal bilaterally, nasal mucous membranes and turbinates normal and moist oral mucous membranes Eyes PERRL, EOMs intact bilaterally and conjunctivae normal Neck full ROM, no lymphadenopathy, supple, no JVD, thyroid normal and no carotid bruits General: trachea midline Lymph Lymphatic: no lymphadenopathy noted Chest inspection of chest normal Resp normal respiratory effort, normal air movement, no retractions, no use of accessory muscles and clear to auscultation bilaterally Auscultation: Negative for rales, rhonchi or wheezes Cardio regular rate, regular rhythm, S1 normal heart sound, S2 normal heart sound, no murmurs, no rub, no gallops and peripheral pulses 2+ throughout GI normal to inspection, nondistended, normoactive bowel sounds, soft to palpation, non-tender and non-distended Back/Spine normal ROM Extremity normal to inspection, full ROM, no clubbing, cyanosis or edema and no pedal edema Skin no rashes or lesions noted General Skin Exam: no breakdown Neuro CN's II-XII intact bilaterally, moves all extremities, no focal motor deficits and no sensory deficits noted Sensorium / Orientation: awake, alert, oriented to person and oriented to place Speech: speech normal Psych mental status grossly normal and affect normal Weight / BMI Weight Weight: 87.5 kg Body Mass Index (BMI) 30.2 ABG / Lab / Microbiology Data 10/19/24 06:06 10/19/24 06:06 Laboratory: Laboratory Results - last 24 hr 10/19/24 06:06: WBC 10.6, RBC 3.74 L, Hgb 10.3 L, Hct 33.7 L, MCV 90.1, MCH 27.5, MCHC 30.6 L, RDW Std Deviation 52.1 H, RDW Coeff of Kathryn 15.7 H, Plt Count 336, MPV 9.3, Immature Gran % (Auto) 2.300 H, Neut % (Auto) 75.4 H, Lymph % (Auto) 13.4 L, [place] % (Auto) 7.3, Eos % (Auto) 1.3, Baso % (Auto) 0.3, Absolute Neuts (auto) 8.0 H, Absolute Lymphs (auto) 1.41, Nucleated RBC % 0, Sodium 137, Potassium 4.5, Chloride 110 H, Carbon Dioxide 20.0 L, Anion Gap 7, BUN 36 H, Creatinine 1.53 H, Estim Creat Clear Calc 37.28, Est GFR (MDRD) Af Amer 56 L, Est GFR (MDRD) Non-Af 46 L, BUN/Creatinine Ratio 23.5 H, Glucose 97, Calcium 9.4, Phosphorus 2.9, Magnesium 2.3 Microbiology: Microbiology 10/14/24 14:27 Urine, Clean Catch Urine Culture - Final ESBL Escherichia coli 10/14/24 13:21 Blood Culture (Wb) - Port Blood Culture - Final ESBL Escherichia coli 10/14/24 13:19 Blood Culture (Wb) - Port Blood Culture - Final ESBL Escherichia coli D/C Instructions Discharge Diet: No restrictions Discharge Activity: Return to Normal Activity Call your doctor if you observe: Fever of 101 or Higher, Shortness of breath, Fainting spells and Chest pain DC O2, CPAP, BIPAP Needs Home O2 Discharge instructions: No Meaningful Use Info Meaningful Use Meaningful Use Diagnoses (Choose all that apply): None applicable Ischemic Stroke Statin Dosing Therapy Reference: STATIN DOSE THERAPY REFERENCE: * Patients > 75 years receive moderate or high dose statin therapy. * Patients 75 years or YOUNGER should receive HIGH intensity statin dose unless contraindicated. You will be required to document reason for non-treatment if statin daily dose does not meet guidelines. HIGH DOSE STATIN THERAPY DAILY Atorvastatin > than or = to 40 mg Rosuvastatin > than or = to 20 mg Amlodipine + Atorvastatin > than or = to 2.5/40 mg Ezetimibe + Simvastatin 10/80 mg Simvastatin 80mg Discharge Plan Admission Admit Date/Time: 10/14/24 15:07 Attending Provider: Kole Reyes Primary Care Provider: Vishal Antonio Consulting Providers: Álvaro Galan; Larry Romero; Jett Plata; Samuel Falk; Alban Taylor Discharge Orders/Prescriptions Prescriptions: New ertapenem 1 gram recon soln 1 g IM DAILY Qty: 10 0RF Continued finasteride [Proscar] 5 mg tablet 5 mg PO DAILY aspirin [Adult Low Dose Aspirin] 81 mg tablet,delayed release (DR/EC) 81 mg PO DAILY tamsulosin 0.4 mg capsule 0.4 mg PO QHS gabapentin 100 mg capsule 100 mg PO TID multivitamin [Daily Multi-Vitamin] Tablet 1 tab PO DAILY atorvastatin 10 mg tablet 10 mg PO QHS bupropion HCl 150 mg tablet sustained-release 12 hr 150 mg PO BID acetaminophen 325 mg Tablet 650 mg PO Q6H PRN PRN (Reason: Pain 1-10 Or Fever) Qty: 0 0RF sennosides-docusate sodium [Stimulant Laxative Plus] 8.6-50 mg Tablet 2 tab PO BID PRN PRN (Reason: Constipation) Qty: 0 0RF fluticasone propionate [Allergy Relief (fluticasone)] 50 mcg/actuation spray,suspension 1 spray intranasal DAILY PRN (Reason: allergy symptoms) Rx Instructions: administer into each nostril memantine 10 mg tablet 10 mg PO BID lidocaine [Aspercreme (lidocaine)] 4 % adhesive patch,medicated 1 patch topical Q12H Patient Comments: apply to right hip and back loratadine [Allergy Relief (loratadine)] 10 mg tablet 10 mg PO DAILY nitroglycerin 0.4 mg tablet, sublingual 0.4 mg SL Q5M PRN (Reason: CHEST PAIN ) Qty: 25 3RF Discontinued sulfamethoxazole-trimethoprim 800-160 mg tablet 1 tab PO Q12H Rx Instructions: TO BE COMPLETED 10/15 Referrals / Follow Up: Vishal Antonio MD [Primary Care Provider] - Within 2 Weeks Disposition Disposition (needs filled in before D/C Order can be placed): [facility] Charges/Coding Visit Charges Inpatient E&M: 21189 Disch Hosp >30min
--- NOTE | 2024-10-19 09:14 | WOUNDNOTE ---
Was consulted on patient for irritation to the peristomal skin. patient states he has had his colostomy for quite some time. removed the ostomy appliance. peristomal skin is pink but no open or weeping areas noted. patient denies pain to the skin. cleansed skin with warm water. pat dry. applied a new 2 piece [place] appliance with a paste ring. pt tolerated well. see stoma photo.
--- NOTE | 2024-10-19 09:40 | WOUNDNOTE ---
stoma photo: left abdomen
--- NOTE | 2024-10-19 09:53 | CASEMGMT ---
Social Work- Physician feels pt is medically ready for discharge. Discharge to [facility], intermediate level of care. Final discharge arrangements and notification to patient/family as per discharge financial planning consultant.? Plan: return to [facility], intermediate level of care HERIBERTO Araiza
--- NOTE | 2024-10-19 10:04 | CASEMGMT ---
Addendum entered by Asha Wright 10/19/24 11:36: Pt daughter requested that transport be arranged. Physicians will transport pt by wheelchair at 1p. SW, nursing, and [facility] updated with new time. Asha Wright DC Planning Asst. Original Note: Discharge orders, signed med list, and transport time sent to [facility]. Pts daughter (Rita) will be here sometime after 3 to transport patient. Nursing, SW, and pt updated. Asha Wright DC Planning Asst.
--- NOTE | 2024-10-19 11:00 | PCM.PN.ID ---
Physical Exam Narrative Sleeping this AM, no fever Const no apparent distress Resp normal air movement and clear to auscultation bilaterally Cardio regular rate and regular rhythm GI soft to palpation, non-tender and non-distended Extremity General Extremity: Negative for edema Skin no rashes or lesions noted ID ID: Route of nutrition/ use of supplements: [] Nutritional Intake: [] IV Site: [] Travis Catheter: [] Assessment & Plan Assessment/Plan (1) Septic shock: PLAN: Due to ESBL ecoli bacteremia from urinary source. Improved, seen by urology, out of icu. Will change to ertapenem, can give IV via port or as IM once daily mixed with lidocaine. Will follow prn (2) ESBL (extended spectrum beta-lactamase) producing bacteria infection:
[2024-10-19 11:41] VITALS: BP 101/60; PULSE 65; RESP 16; TEMP 36.5; O2SAT 97
[2024-10-19] MEDS: Ensure Plus High Protein 120 ML LIQUID PO (11:45)
[2024-10-19] MEDS: Aspirin E.C. 81 MG Tablet PO (11:45)
[2024-10-19] MEDS: buPROPion (SR) 150 MG Tablet.SA PO (11:46)
[2024-10-19] MEDS: Finasteride 5 MG Tablet PO (11:46)
[2024-10-19] MEDS: Memantine Hydrochloride 10 MG Tablet PO (11:46)
--- NOTE | 2024-10-19 12:20 | PHA.DC.MR.R ---
Pharmacy [place] Med Reconciliation Pharmacy Service has performed discharge medication reconciliation for this patient. The patient's discharge medication list was reviewed for discrepancies and discrepancies were resolved. Medications at Discharge Home Medications finasteride 5 mg tablet (Proscar) 5 mg PO DAILY PROSTATE 01/27/18 aspirin 81 mg tablet,delayed release (Adult Low Dose Aspirin) 81 mg PO DAILY HEART HEALTH 07/30/18 tamsulosin 0.4 mg capsule 0.4 mg PO QHS PROSTATE 10/21/21 nitroglycerin 0.4 mg sublingual tablet 0.4 mg sublingual Q5M PRN CHEST PAIN #25 tabs 05/12/23 atorvastatin 10 mg tablet 10 mg PO QHS CHOLESTEROL 10/31/23 bupropion HCl 150 mg tablet,12 hr sustained-release 150 mg PO BID DEPRESSION 10/31/23 gabapentin 100 mg capsule 100 mg PO TID NEUROPATHY 11/14/23 multivitamin (Daily Multi-Vitamin tablet) 1 tab PO DAILY 01/05/24 acetaminophen 325 mg tablet 650 mg (2 x 325 mg) PO Q6H PRN PRN Pain 1-10 Or Fever #0 tabs 04/18/24 sennosides 8.6 mg-docusate sodium 50 mg tablet (Stimulant Laxative Plus) 2 tab PO BID PRN PRN Constipation #0 tabs 04/18/24 fluticasone propionate 50 mcg/actuation nasal spray,suspension (Allergy Relief (fluticasone)) 1 spray intranasal DAILY PRN allergy symptoms 10/14/24 lidocaine 4 % topical patch (Aspercreme (lidocaine)) 1 patch topical Q12H pain 10/14/24 loratadine 10 mg tablet (Allergy Relief (loratadine)) 10 mg PO DAILY allergy 10/14/24 memantine 10 mg tablet 10 mg PO BID 10/14/24 ertapenem 1 gram solution for injection 1 g IM DAILY #10 ea 10/19/24
[2024-10-19] MEDS: Ertapenem Sod 1 GM in 0.9% Normal Saline (50mL MB+) 50 ML IV (12:21)
[2024-10-19] MEDS: 0.9% Saline Lock 10 ML Syringe IV (13:32)
--- NOTE | 2024-10-19 13:54 | NURSING ---
REPORT CALLED TO HALF-WAY AND REPOT GIVEN TO KATHERYN DELGADILLO
== END 2024-10-19 13:53 | disposition skilled nursing facility (03) | DRG 871 ==
LOC: ED 15:31 → ICU 15:35 → MS3 10-17 17:07
PROVIDERS: Internal Medicine; Nurse Practitioner; Admitting Provider Hospitalist; Emergency Provider Emergency Medicine; PCP Family Medicine; Referring Provider Emergency Medicine; Visit Provider Internal Medicine
DX: A41.51 Sepsis due to Escherichia coli [E. coli] (principal); R65.21 Severe sepsis with septic shock; G93.41 Metabolic encephalopathy; E87.20 Acidosis, unspecified; F03.93 Unspecified dementia, unspecified severity, with mood disturbance; N17.9 Acute kidney failure, unspecified; N13.6 Pyonephrosis; Z16.12 Extended spectrum beta lactamase (ESBL) resistance; D63.8 Anemia in other chronic diseases classified elsewhere; F32.A Depression, unspecified; I10 Essential (primary) hypertension; Z93.3 Colostomy status; E78.5 Hyperlipidemia, unspecified; I25.10 Atherosclerotic heart disease of native coronary artery without angina pectoris; I95.9 Hypotension, unspecified; D72.829 Elevated white blood cell count, unspecified; K43.9 Ventral hernia without obstruction or gangrene; M62.08 Separation of muscle (nontraumatic), other site; Z66 Do not resuscitate; R53.81 Other malaise; Z86.73 Personal history of transient ischemic attack (TIA), and cerebral infarction without residual deficits; G89.29 Other chronic pain; N32.81 Overactive bladder; Z92.3 Personal history of irradiation; Z85.46 Personal history of malignant neoplasm of prostate; Z85.038 Personal history of other malignant neoplasm of large intestine; R29.6 Repeated falls; N20.0 Calculus of kidney; N40.0 Benign prostatic hyperplasia without lower urinary tract symptoms
CPT/HCPCS: 36415; 36591; 71045; 74176; 76770; 80048; 80053; 81001; 82570; 83605; 83735; 84100; 84300; 85025; 85027; 85610; 87040; 87077; 87086; 87088; 87186; 90662; 93005; 94668; 97110; 97162; 97166; 97530; 97535; 97802; 99252; 99285; J2185; A4216; G0463

== ENCOUNTER 2024-10-31 11:43 | Emergency (ER) | payer MEDICARE, BC, SELFPAY ==
[2024-10-31 11:44] VITALS: BP 136/90; PULSE 91; RESP 15; TEMP 36.1; O2SAT 98; BMI 23.4
--- NOTE | 2024-10-31 11:58 | CT_ITS ---
EXAM: BRAIN/HEAD WITHOUT CONTRAST CLINICAL HISTORY: 84-year-old male, fall, laceration to the right eye. COMPARISON: CT head 07/13/2024. TECHNIQUE: Routine CT imaging of the head without IV contrast. Additional multiplanar reformats were obtained. Dose reduction techniques were used including intermediate exposure control (AEC),iterative reconstruction technique, and/or mA and/or KV dose adjustments based on patient's size. FINDINGS: Moderate generalized cerebral and cerebellar volume loss with concordant prominence of the ventricles and subarachnoid spaces. Moderate patchy supratentorial white matter hypodensities. The dominguez-white matter interfaces are otherwise maintained. No acute intracranial hemorrhage or herniation. The visualized paranasal sinuses and mastoids are well-aerated. Chronic fracture deformity of the right inferior orbital floor. Small laceration and hematoma along the right lateral orbit. No calvarial fracture. CT/Brain/Head without Contrast IMPRESSION: 1. No acute intracranial hemorrhage or herniation. 2. Small laceration and hematoma along the right lateral orbit. Reading Location: [id number]
--- NOTE | 2024-10-31 11:58 | CT_ITS ---
PROCEDURE: SPINE CERVICAL WITHOUT CONTRAS REASON FOR EXAM: 84-year-old male, neck pain after multiple falls earlier today. TECHNIQUE: Cervical spine CT without contrast. COMPARISON: CT/Spine Cervical without Contras IMPRESSION: NO ACUTE CERVICAL FRACTURE. DEGENERATIVE CHANGES. One or more dose reduction techniques were used (e.g., Automated exposure contr ol, adjustment of the mA and/or kV according to patient size, use of iterative reconstruction technique). Reading Location: [id number]
--- NOTE | 2024-10-31 12:10 | EDS_ITS ---
HPI <PAULA Rey - Last Filed: 10/31/24 14:48> History of Present Illness Chief Complaint: Fall Narrative Narrative: Patient is an 84-year-old man with history of frequent falls, hypertension hyperlipidemia, CAD, dementia who presents to the emergency department after mechanical fall. Patient lives in a longterm facility at [facility]. Patient does have multiple falls, patient states he felt a lot more in his right side. Denies any LOC. Patient does have a significant laceration above the right eyebrow, pain to the right ribs, right shoulder. Patient brought here by EMS. Patient states he does feel unsteady and dizzy at times. [facility] <PAULA Rey - Last Filed: 10/31/24 14:48> [facility] Medical History History of ESBL E. coli infection Acute UTI Syncope Near syncope Alcohol abuse GI bleed Non-smoker Stroke/cerebrovascular accident Vision loss of right eye Vision loss of left eye Hearing loss, left Hearing loss, right Chronic pain Kidney stones Kidney disease Myocardial infarct Chest pain Acute cerebrovascular accident (CVA) CVA (cerebral vascular accident) Vitamin D deficiency Chronic pain Cognitive impairment Frequent falls Smoker Fall History of echocardiogram Wears hearing aid Wears glasses Wears dentures Cancer Depression Anxiety Alcohol use Gait instability Ambulates with cane Arthritis High cholesterol Easy bruising Back pain Chewing tobacco nicotine dependence History of pain when walking History of stress test Cardiology follow-up encounter History of heart attack Colon cancer 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 Atherosclerosis of coronary artery of [place] heart without angina pectoris Essential (primary) hypertension 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 BPH (benign prostatic hyperplasia) HLD (hyperlipidemia) Home Medications ?Medication ?Instructions ?Recorded ?Last Taken ?Type finasteride 5 mg tablet (Proscar) 5 mg PO DAILY PROSTA TE 01/27/18 01/05/24 History aspirin 81 mg tablet,delayed 81 mg PO DAILY HEART HEAL TH 07/30/18 01/04/24 History release (Adult Low Dose Aspirin) tamsulosin 0.4 mg capsule 0.4 mg PO QHS PROSTATE 10/2101/04/24 History nitroglycerin 0.4 mg sublingual 0.4 mg sublingual Q5M PRN CHEST 05/12/23 Unknown Rx tablet PAIN #25 tabs atorvastatin 10 mg tablet 10 mg PO QHS CHOLESTEROL 01/04/24 History bupropion HCl 150 mg tablet,12 hr 150 mg PO BID DEPRES JOSE 10/31/23 01/05/24 History sustained-release gabapentin 100 mg capsule 100 mg PO TID NEUROPATHY 10/0801/05/24 History multivitamin (Daily Multi-Vitamin 1 tab PO DAILY 01/0401/05/24 History tablet) acetaminophen 325 mg tablet 650 mg (2 x 325 mg) PO Q6H PRN PRN 04/18/24 Unknown Rx Pain 1-10 Or Fever #0 tabs sennosides 8.6 mg-docusate sodium 2 tab PO BID PRN PRN Constipation 04/18/24 Unknown Rx 50 mg tablet (Stimulant Laxative #0 tabs Plus) fluticasone propionate 50 1 spray intranasal DAILY PRN 10/14/24 Unknown History mcg/actuation nasal allergy symptoms spray,suspension (Allergy Relief (fluticasone)) lidocaine 4 % topical patch 1 patch topical Q12H pain 10/14/24 Unknown History (Aspercreme (lidocaine)) loratadine 10 mg tablet (Allergy 10 mg PO DAILY allerg y 10/14/24 Unknown History Relief (loratadine)) memantine 10 mg tablet 10 mg PO BID 10/14/24 Unknow n History ertapenem 1 gram solution for 1 g IM DAILY #10 ea 01/07 Unknown Rx injection Allergy/AdvReac Type Severity Reaction Status Date / Time No Known Allergies Allergy Verified 10/31/24 11:44 Family History Father Cancer skin cancer Mother Myocardial infarction Diabetes Other Fall Surgical History History of angioplasty History of colostomy History of left heart catheterization (02/24/02) H/O percutaneous transluminal coronary angioplasty (11/13/93) History of cystoscopy Hx of appendectomy History of inguinal hernia repair, bilateral Status post trigger finger release History of rotator cuff surgery Hx of colectomy Social History household members: none Smoking Status: Never smoker alcohol intake: current alcohol intake frequency: a few times a month Alcohol type: hard liquor substance use type: does not use caffeine: Yes Type: coffee Number of servings: 1 ROS <PAULA Rey - Last Filed: 10/31/24 14:48> ROS ED ROS Narrative Constitutional: Negative for fever, chills, weight loss, weakness Eyes: Negative for vision loss, vision change, double vision ENT: Negative for any sore throat, ear pain, congestion Cardiovascular: Negative for any chest pain, tightness, palpitations Respiratory: Negative for any cough, sputum production, hemoptysis, dyspnea, dyspnea on exertion, orthopnea Gastrointestinal: Negative for any abdominal pain, nausea, vomiting, diarrhea, constipation, blood in stool, blood in vomit : Negative for any urinary frequency, dysuria, retention, blood in urine Muscle skeletal: Negative for any neck pain, back pain Neurological: Negative for any syncope, dizziness. Positive for headache Skin: Negative for any rashes, itching, abrasions. Positive laceration above the right eyebrow Psychiatric: Negative for any depression, anxiety, stress, suicidal ideation, homicidal ideation Hematologic: Negative for any excessive bruising, easy bleeding EXAM <PAULA Rey - Last Filed: 10/31/24 14:48> Physical Exam Narrative Exam Narrative: Vital signs reviewed. HEET: Head normocephalic atraumatic, TMs clear bilaterally. Posterior pharynx is clear, moist mucous membranes. Nares clear bilaterally. Pupils are equal round reactive to light, patient does have a 3 cm gash like laceration just above the right eyebrow. This require suturing. Negative for any hemotympanum or septal hematoma. Neck: Supple with no lymphadenopathy or tenderness. No signs of meningismus. Cardiac: Regular rate and rhythm no murmurs gallops or rubs, equal peripheral pulses bilaterally. Respiratory: Lungs clear to auscultation bilaterally. Tenderness to the right lateral ribs, no crepitus, equal breath sounds Abdomen: Soft, nontender, nondistended. No abdominal bruit or pulsatile masses. No hepatosplenomegaly. Patient does have a colostomy Extremities: No peripheral edema, no signs of gross trauma or deformity. Active full range of motion of all extremities. Worsening pain to the right shoulder, worse with palpation however patient is able to abduct and adduct, slight discomfort with range of motion. Neuro: Cranial nerves II through XII intact, no focal neurological deficits. Skin: Clean dry and intact with no rash, purpura, petechiae, vesicles or pustules. 3 cm laceration right eyebrow Backs/flank: No CVA tenderness, no midline spinal tenderness, no deformity. Psych: Normal mood and affect. No SI, HI or acute psychosis. Const Vital Signs: 10/31/24 11:44 10/31/24 11:47 10/31/24 13:43 Temperature 96.9 F L Temperature Source Temporal Pulse Rate 91 81 Respiratory Rate 15 Respiratory Effort Normal Respiratory Depth Normal Respiratory Pattern Normal Blood Pressure 136/90 H 129/64 H Blood Pressure Mean 105 85 Pulse Ox 98 96 Oxygen Delivery Method Room Air Room Air 10/31/24 15:13 Temperature 98.0 F Temperature Source Pulse Rate 72 Respiratory Rate 16 Respiratory Effort Respiratory Depth Respiratory Pattern Blood Pressure 111/94 H Blood Pressure Mean 99 Pulse Ox 100 Oxygen Delivery Method <Dr. Zeb Webster MD - Last Filed: 10/31/24 15:49> Physical Exam Const Vital Signs: 10/31/24 11:44 10/31/24 11:47 10/31/24 13:43 Temperature 96.9 F L Temperature Source Temporal Pulse Rate 91 81 Respiratory Rate 15 Respiratory Effort Normal Respiratory Depth Normal Respiratory Pattern Normal Blood Pressure 136/90 H 129/64 H Blood Pressure Mean 105 85 Pulse Ox 98 96 Oxygen Delivery Method Room Air Room Air 10/31/24 15:13 Temperature 98.0 F Temperature Source Pulse Rate 72 Respiratory Rate 16 Respiratory Effort Respiratory Depth Respiratory Pattern Blood Pressure 111/94 H Blood Pressure Mean 99 Pulse Ox 100 Oxygen Delivery Method [facility] <PAULA Rey - Last Filed: 10/31/24 14:48> [facility] Lab Data Labs: Laboratory Results - last 24 hr 10/31/24 10/31/24 12:07 14:05 WBC 8.0 RBC 3.66 L Hgb 10.4 L Hct 33.1 L MCV 90.4 MCH 28.4 MCHC 31.4 L RDW Std Deviation 48.9 H RDW Coeff of Kathryn 14.7 H Plt Count 321 MPV 9.0 Immature Gran % (Auto) 0.600 Neut % (Auto) 72.7 H Lymph % (Auto) 15.7 L [place] % (Auto) 8.1 Eos % (Auto) 2.5 Baso % (Auto) 0.4 Absolute Neuts (auto) 5.9 Absolute Lymphs (auto) 1.26 Nucleated RBC % 0 Sodium 141 Potassium 3.9 Chloride 109 H Carbon Dioxide 25.0 Anion Gap 7 BUN 25 H Creatinine 1.54 H Estim Creat Clear Calc 32.79 Est GFR (MDRD) Af Amer 55 L Est GFR (MDRD) Non-Af 46 L BUN/Creatinine Ratio 16.2 Glucose 124 H Calcium 9.3 Urine Color Yellow Urine Clarity Cloudy Urine pH 6.0 Ur Specific [place] 1.010 Urine Protein 30 H Urine Glucose (UA) Normal Urine Ketones Negative Urine Occult Blood 25 H Urine Nitrite Negative Urine Bilirubin Negative Urine Urobilinogen Normal Ur Leukocyte Esterase 500 H Urine RBC Not Reportable Urine WBC >100 SEEN Ur Squamous Epith Cells 0 SEEN Urine Bacteria 0 SEEN Urine Mucus 0 SEEN Urine Yeast 3+ Radiography Diagnostic Testing: Clinical Impression(s) from Imaging Studies Brain CT 10/31/24 11:58 IMPRESSION: 1. No acute intracranial hemorrhage or herniation. 2. Small laceration and hematoma along the right lateral orbit. Reading Location: [facility] Cervical Spine CT 10/31/24 11:58 IMPRESSION: NO ACUTE CERVICAL FRACTURE. DEGENERATIVE CHANGES. One or more dose reduction techniques were used (e.g., Automated exposure control, adjustment of the mA and/or kV according to patient size, use of iterative reconstruction technique). Reading Location: [facility] Ribs w/Chest X-Ray 10/31/24 13:10 IMPRESSION: Acute 8th and 9th right lateral rib fractures. Reading Location: [facility] Shoulder X-Ray 10/31/24 13:10 IMPRESSION: No obvious acute fracture. Reading Location: [facility] EKG Sinus rhythm first-degree AV block: Attestation: I personally reviewed and interpreted this EKG as follows: Interpretation: Sinus Rhythm Comments: Sinus rhythm with first-degree AV block, rate of 84 bpm, NE interval Ian 34 ms, QRS duration 82 ms, no acute ST elevation Treatment and Re-Evaluation :: Differential diagnosis includes however is not limited to: Closed head injury, concussion, skull fracture, intracranial hemorrhage, electrolyte abnormality, de hydration, UTI, facial fracture. Patient appears generally well, vital signs are stable, patient is nontoxic- appearing. Presenting to the emergency department after mechanical fall injuring his right forehead, right shoulder right ribs. Patient will receive the basic laboratory values, just to ensure there is no electrode abnormality, infection. Urinalysis will also be obtained. CT scan of the brain and cervical spine as well as chest x-ray for right rib fracture. Right shoulder x-ray as well. All radiologic examinations were read, reviewed by the emergency department attending. From these reads, a plan of care will be put in place. Patient will receive a tetanus vaccination, I will need to suture the patient's wound to the right eyebrow. As long as the ear is no significant abnormalities, patient will be able to go back to the facility. Patient CT scan of the brain shows no acute intracranial hemorrhage or herniation. Small laceration and hematoma along the right lateral orbit. Patient's x-rays of the shoulder shows no obvious acute fracture. X-ray of the ribs series on the right shows acute eighth and ninth rib fractures. No pneumothorax. Laboratory values showed a normal CBC, chronic anemia. Patient's chemistries showed chronic renal insufficiency with a creatinine of 1.5 which is baseline. Glucose under 24. Urinalysis will be obtained. EKG was unremarkab le. Patient is acting appropriate. Procedure note: Patient had a 3 cm full-thickness laceration just above the right eyebrow. This was anesthetized with lidocaine with epinephrine. Sterile gloves, sterile drapes were used. 200 cc were used to cleanse the wound. I was able to place 10 simple interrupted sutures of 5-0 Ethilon. Patient tolerated well. Edges approximated nicely. Patient is also some superficial abrasions to both arms, right cheek. These will be cleansed and dressed. Patient's urinalysis shows no acute infection, patient does have some white blood cells, patient is have indwelling Travis catheter. At this time, patient be discharged back to the facility. All of the skin tears were cleansed and dressed. I did place 10 simple sutures to the laceration above the right eyebrow. At this time, patient will go back to the longterm facility. He will have the sutures removed in 10 days. All questions were answered, patient stable for discharge. Patient will be given a incentive spirometer to use secondary to the rib fractures. Will be instructed to return for any worsening fevers chills nausea vomit. <Dr. Zeb Webster MD - Last Filed: 10/31/24 15:49> [facility] Narrative Medical decision making narrative: I have personally performed a face to face assessment of the patient and have reviewed the RAS Note. I performed a substantive portion of the visit including all aspects of the following. My cordoba findings include: History is remarkable for mechanical fall. Patient had head trauma. He was dazed. He complains of headache. He has bleeding from his scalp. He is presently wrapped. He also complains of rib cage pain on the right. AP pressure to the sternum causes him discomfort. Denies shortness of breath or difficulty breathing. He has not made urine since the fall. He denies nausea or vomiting. He denies paresthesia, anesthesia or motor weakness. Exam is head is remarkable for trauma. He will need a repair. This performed by the nurse practitioner. Please see procedure note. There is no clinical findings of basilar skull fracture. Is no palpable pression. Septum is normal. There is no septal hematoma. There is no dental trauma. Pupils equal round reactive. Extract muscle intact. Sclera is anicteric. There is no subconjunctival hemorrhage. There is no nystagmus. Trachea is midline. He does have neck pain. Patient does have right-sided chest pain with AP pressure of the sternum. He complains of pain over the sick seventh eighth ninth rib on the right. There is no crepitus or subcutaneous air. Abdomen is soft with some tenderness in the right upper quadrant. There is no CVA tenderness noted. His neuroexam is nonfocal with a GCS of 15. Medical Decision Making per the [place] CT head rule imaging is required. CT of the head and neck were obtained since his neck cannot be cleared per Nexus criteria. X-rays of the ribs were obtained. On my review I believe rib 7 and 8 is fractured. There is no evidence of pneumothorax or hemothorax. CT per my review revealed no evidence of subdural hematoma, epidural hematoma hematoma, traumatic subarachnoid hemorrhage or intraparenchymal contusion. There is no obvious fractures noted either. C-spine reveals significant degenerative changes otherwise negative. Other additions or changes: Repair by nurse practitioner. Discharge to home with appropriate home-going instructions. Lab Data Attestation: I reviewed the patient's lab results. Lab results narrative: Urine is negative for blood. Patient has pyuria with 3+ yeast due to indwelling chronic Travis. Patient does have mild anemia with normal indices. BUN and creatinine are elevated 25 and 1.54. Estimated GFR is 46Creatinine is at patient's baseline. Labs: Laboratory Results - last 24 hr 10/31/24 10/31/24 12:07 14:05 WBC 8.0 RBC 3.66 L Hgb 10.4 L Hct 33.1 L MCV 90.4 MCH 28.4 MCHC 31.4 L RDW Std Deviation 48.9 H RDW Coeff of Kathryn 14.7 H Plt Count 321 MPV 9.0 Immature Gran % (Auto) 0.600 Neut % (Auto) 72.7 H Lymph % (Auto) 15.7 L [place] % (Auto) 8.1 Eos % (Auto) 2.5 Baso % (Auto) 0.4 Absolute Neuts (auto) 5.9 Absolute Lymphs (auto) 1.26 Nucleated RBC % 0 Sodium 141 Potassium 3.9 Chloride 109 H Carbon Dioxide 25.0 Anion Gap 7 BUN 25 H Creatinine 1.54 H Estim Creat Clear Calc 32.79 Est GFR (MDRD) Af Amer 55 L Est GFR (MDRD) Non-Af 46 L BUN/Creatinine Ratio 16.2 Glucose 124 H Calcium 9.3 Urine Color Yellow Urine Clarity Cloudy Urine pH 6.0 Ur Specific [place] 1.010 Urine Protein 30 H Urine Glucose (UA) Normal Urine Ketones Negative Urine Occult Blood 25 H Urine Nitrite Negative Urine Bilirubin Negative Urine Urobilinogen Normal Ur Leukocyte Esterase 500 H Urine RBC Not Reportable Urine WBC >100 SEEN Ur Squamous Epith Cells 0 SEEN Urine Bacteria 0 SEEN Urine Mucus 0 SEEN Urine Yeast 3+ Radiography Chest X-Ray - ED: Read by ED Physician (Three-view x-ray of the right ribs reveals fracture of ribs seventh and eighth. No evidence of pneumothorax or hemothorax.) Diagnostic Testing: Clinical Impression(s) from Imaging Studies Brain CT 10/31/24 11:58 IMPRESSION: 1. No acute intracranial hemorrhage or herniation. 2. Small laceration and hematoma along the right lateral orbit. Reading Location: [facility] Cervical Spine CT 10/31/24 11:58 IMPRESSION: NO ACUTE CERVICAL FRACTURE. DEGENERATIVE CHANGES. One or more dose reduction techniques were used (e.g., Automated exposure control, adjustment of the mA and/or kV according to patient size, use of iterative reconstruction technique). Reading Location: [facility] Ribs w/Chest X-Ray 10/31/24 13:10 IMPRESSION: Acute 8th and 9th right lateral rib fractures. Reading Location: [facility] Shoulder X-Ray 10/31/24 13:10 IMPRESSION: No obvious acute fracture. Reading Location: [facility] Radiology report was read. He numbered the fractures 8 and 9 whereas I thought it was 7 and 8. This is insignificant. More importantly there is no evidence of pneumothorax or hemothorax. Discharge Plan Triage Chief Complaint: Fall ED Midlevel Provider: Sam Feldman ED Provider: Zeb Webster Dx/Rx/DC Orders Clinical Impression: Concussion with loss of consciousness, Essential (primary) hypertension, Atherosclerosis of coronary artery of [place] heart without angina pectoris, HLD (hyperlipidemia), Debility, Face lacerations, Multiple fractures of ribs of right side, Multiple skin tears, Injury due to fall, Acute cervical myofascial strain Instructions: ED Rib Fracture, ED Laceration, All Closures, ED Laceration Minimize Scars Prescriptions: No Action finasteride [Proscar] 5 mg tablet 5 mg PO DAILY aspirin [Adult Low Dose Aspirin] 81 mg tablet,delayed release (DR/EC) 81 mg PO DAILY tamsulosin 0.4 mg capsule 0.4 mg PO QHS gabapentin 100 mg capsule 100 mg PO TID multivitamin [Daily Multi-Vitamin] Tablet 1 tab PO DAILY atorvastatin 10 mg tablet 10 mg PO QHS bupropion HCl 150 mg tablet sustained-release 12 hr 150 mg PO BID acetaminophen 325 mg Tablet 650 mg PO Q6H PRN PRN (Reason: Pain 1-10 Or Fever) Qty: 0 0RF sennosides-docusate sodium [Stimulant Laxative Plus] 8.6-50 mg Tablet 2 tab PO BID PRN PRN (Reason: Constipation) Qty: 0 0RF fluticasone propionate [Allergy Relief (fluticasone)] 50 mcg/actuation spray,suspension 1 spray intranasal DAILY PRN (Reason: allergy symptoms) Rx Instructions: administer into each nostril memantine 10 mg tablet 10 mg PO BID lidocaine [Aspercreme (lidocaine)] 4 % adhesive patch,medicated 1 patch topical Q12H Patient Comments: apply to right hip and back loratadine [Allergy Relief (loratadine)] 10 mg tablet 10 mg PO DAILY ertapenem 1 gram recon soln 1 g IM DAILY Qty: 10 0RF nitroglycerin 0.4 mg tablet, sublingual 0.4 mg SL Q5M PRN (Reason: CHEST PAIN ) Qty: 25 3RF Primary Care Provider: Vishal Antonio Referrals: Vishal Antonio MD [Primary Care Provider] - Activity Restrictions/Additional Instructions: You have 10 sutures to your right eyebrow, these need to come out in 7 to 10 days. You do have rib fractures to the eighth and ninth rib, use the incentive spirometer multiple times a day to ensure that you are inflating your lungs. Your tetanus vaccination was updated today. Return for any worsening symptoms. Print Language: Romansh Disposition Disposition: Home, Self Care
[2024-10-31] MEDS: Diphth,Pertuss(Acell),Tet Vac 0.5 ML Vial IM (12:18)
[2024-10-31 12:19] LABS: Absolute Lymphocyte Count 1.26 X10^3/uL (0.83-4.51); Absolute Neutrophil Count 5.9 X10^3/uL (2.0-7.7); Basophil# 0.03 X10^3/uL; Basophil% 0.4 % (0-1); Eosinophils% 2.5 % (0-5); Hematocrit 33.1 % (40-54); Hemoglobin 10.4 g/dL (13.0-16.5); Lymphocyte # 1.26 X10^3/ul (0.83-4.51); Lymphocyte % 15.7 % (19-41); Mean Corp Hgb Conc 31.4 g/dL (32-36); Mean Corpuscular Hgb 28.4 pg (27.0-32.0); Mean Corpuscular Volume 90.4 fL (80-94); Monocyte# 0.65 X10^3/uL; Monocyte% 8.1 % (0-10); NRBC Flagged by Analyzer 0 % (0-5); Neutrophil # 5.85 X10^3/uL (2.7-7.7); Neutrophil % 72.7 % (47-70); Platelet Count 321 K/mm3 (150-450); RBC Distribution Width CV 14.7 % (11.6-14.6); RBC Distribution Width SD 48.9 fl (35.1-43.9); Red Blood Count 3.66 M/mm3 (4.6-6.2)
[2024-10-31] MEDS: Acetaminophen 500 MG Tablet 1000 MG PO (12:19)
[2024-10-31] MEDS: Lidocaine 1% /Epi 1:100 (20ml) 20 ML Vial 5 ML INFILT (12:19)
[2024-10-31 12:40] LABS: Anion Gap 7 (5-15); BUN 25 mg/dL (7-18); BUN/Creat Ratio 16.2 RATIO (10-20); Calcium,Total 9.3 mg/dL (8.5-10.1); Chloride 109 mmol/L (98-107); Creatinine, Serum 1.54 mg/dL (0.70-1.30); EST Glomerular Filtration Rate 46 mL/min (>60); Est Glom Filt Rate - Afr Amer 55 mL/min (>60); Estimated Creatinine Clearance 32.79 ml/min; Glucose 124 mg/dL (74-106); Potassium 3.9 mmol/L (3.5-5.1); Sodium Level 141 mmol/L (136-145)
--- NOTE | 2024-10-31 13:10 | RAD_ITS ---
PROCEDURE: SHOULDER MIN 2 VIEWS REASON FOR EXAM: 84-year-old male, multiple falls earlier today, right shoulder pain. TECHNIQUE: 4 views of the right shoulder COMPARISON: Same day rib radiographs, prior chest radiograph 10/14/2024. FINDINGS: No obvious acute fracture. No suspicious bone lesion. Diffuse osseous demineralization. Severe glenohumeral and acromioclavicular joint arthrosis. Grossly normal alignment of the acromioclavicular and glenohumeral joints. [place] linear radiodense material along the lateral right humeral soft tissues, unchanged over numerous prior imaging. Soft tissues are unremarkable. RAD/Shoulder min 2 Views IMPRESSION: No obvious acute fracture. Reading Location: [id number]
--- NOTE | 2024-10-31 13:10 | RAD_ITS ---
PROCEDURE: RIBS UNI MIN 3V W/PA CHEST REASON FOR EXAM: 84-year-old male, multiple falls today, unsteady gait. TECHNIQUE: Frontal and bilateral oblique views of the bilateral ribs. COMPARISON: Same day chest radiograph, prior chest radiograph 10/14/2024. FINDINGS: Acute 8th and 9th right lateral rib fracture deformities with mild angulation. No suspicious lytic or blastic rib lesions. Right IJ chest port with tip overlying the right atrium. The heart is normal in size. No pleural effusion, pneumothorax or focal consolidation. Thoracolumbar spondylosis. RAD/Ribs Uni Min 3V w/PA Chest IMPRESSION: Acute 8th and 9th right lateral rib fractures. Reading Location: [id number]
[2024-10-31 13:43] VITALS: BP 129/64; PULSE 81; O2SAT 96
[2024-10-31 14:18] LABS: Bacteria 0 SEEN /hpf (None Seen); Mucous, Urine 0 SEEN /hpf (<or=2+); Squamous Epithelial Cells - UA 0 SEEN /hpf (0-5)
[2024-10-31 14:21] LABS: Color, Urine Yellow (Yellow); Glucose, Dipstick Normal (Normal); Ketone-Dipstick Negative (Negative); Leukocyte Esterase-Dipstick 500 /ul (Negative); Nitrite-Dipstick Negative (Negative); Occult Blood-Urine 25 /ul (Negative); Protein-Dipstick 30 mg/dl (Negative); Urine Bilirubin Dipstick Negative (Negative); Urine Clarity Cloudy (Clear); Urine Urobilinogen Normal (Normal)
[2024-10-31 14:29] LABS: Yeast-Urine 3+ /hpf (None Seen)
[2024-10-31 14:30] LABS: White Blood Cells >100 SEEN /hpf (0-5)
[2024-10-31 15:13] VITALS: BP 111/94; PULSE 72; RESP 16; TEMP 36.7; O2SAT 100
--- NOTE | 2024-10-31 15:36 | ED.RN ---
Bilateral arm skin tears dressed, pt. given snacks and water and updated that he is waiting for his squad ride. report called back to [facility]
== END 2024-10-31 16:30 | disposition home or self-care (01) ==
PROVIDERS: Nurse Practitioner; Emergency Provider Emergency Medicine; PCP Family Medicine; Visit Provider Emergency Medicine
DX: S06.0X9A Concussion with loss of consciousness of unspecified duration, initial encounter (principal); Z93.3 Colostomy status; I25.10 Atherosclerotic heart disease of native coronary artery without angina pectoris; E78.5 Hyperlipidemia, unspecified; S01.01XA Laceration without foreign body of scalp, initial encounter; S01.111A Laceration without foreign body of right eyelid and periocular area, initial encounter; S16.1XXA Strain of muscle, fascia and tendon at neck level, initial encounter; I10 Essential (primary) hypertension; I25.2 Old myocardial infarction; W19.XXXA Unspecified fall, initial encounter; Z86.73 Personal history of transient ischemic attack (TIA), and cerebral infarction without residual deficits
CPT/HCPCS: 70450; 71101; 72125; 73030; 80048; 81001; 85025; 90715; 93005; 99285

== ENCOUNTER → 2025-01-05 | Outpatient (CLI) | payer MEDICARE, BC, SELFPAY | END | disposition home or self-care (01) | LOC: LAB 16:36 | PROVIDERS: PCP Family Medicine; Referring Provider Family Medicine; Visit Provider Family Medicine | DX: R19.5 Other fecal abnormalities (principal) | CPT/HCPCS: 82274; 87493 ==

== ENCOUNTER → 2025-01-06 | Outpatient (CLI) | payer MEDICARE, BC, SELFPAY ==
[2025-01-06 16:45] LABS: Color, Urine Yellow (Yellow); Glucose, Dipstick Normal (Normal); Ketone-Dipstick Negative (Negative); Leukocyte Esterase-Dipstick 500 /ul (Negative); Nitrite-Dipstick Negative (Negative); Occult Blood-Urine 150 /ul (Negative); Protein-Dipstick 100 mg/dl (Negative); Urine Bilirubin Dipstick Negative (Negative); Urine Clarity Cloudy (Clear); Urine Urobilinogen Normal (Normal)
== END | disposition home or self-care (01) ==
PROVIDERS: PCP Family Medicine; Visit Provider Family Medicine
DX: R31.9 Hematuria, unspecified (principal)
CPT/HCPCS: 81002; 87077; 87086; 87088; 87186